=== PATIENT | female | born 1970 | race Caucasian/White ===

== ENCOUNTER 2018-11-06 18:08 | Emergency (ER) | payer OTHER ==
[2018-11-06 19:10] LABS: Glucose,Whole Blood 467 mg/dL (75-99)
[2018-11-06] MEDS ORDERED: SODIUM CHLORIDE 0.9% 1,000 ML IV STA (19:18)
--- NOTE | 2018-11-06 19:39 | ED ---
General Adult HPI - General Chief complaint: Recheck/Abnormal Lab/Rx Stated complaint: high blood sugar Time Seen by Provider: 11/06/18 19:17 Source: patient Mode of arrival: ambulatory Limitations: no limitations - History of Present Illness Initial comments: Dictation was produced using [employer] dictation software. please excuse any gr ammatical, word or spelling errors. Chief Complaint: 48-year-old female with chief complaint of elevated blood sugar, polyuria and polydipsia. History of Present Illness: Is a 48-year-old female she was told that she has history of diabetes. Patient was started on metformin several years ago while she lived in [place]. She stopped taking those medications because she ran out and felt like she didn't need them. Over the last week or 2 patient has been extremely thirsty and urinating frequently. Patient denies any pain complaints. Patient has no nausea vomiting or diarrhea. Patient has no dysuria. No cough. No constitutional symptoms. The ROS documented in this emergency department record has been reviewed and confirmed by me. Those systems with pertinent positive or negative responses have been documented in the HPI. All other systems are other negative and/or noncontributory. PHYSICAL EXAM: General Impression: Alert and oriented x3, not in acute distress HEENT: Normocephalic atraumatic, extra-ocular movements intact, pupils equal and reactive to light bilaterally, mucous membranes moist. Cardiovascular: Heart regular rate and rhythm, S1&S2 audible, no murmurs, rubs or gallops Chest: Lungs clear to auscultation bilaterally, no rhonchi, no wheeze, no rales Abdomen: Bowel sounds present, abdomen soft, non-tender, non-distended, no organomegaly Musculoskeletal: Pulses present and equal in all extremities, no peripheral edema Motor: no focal deficits noted Neurological: CN II-XII grossly intact, no focal motor or sensory deficits noted Skin: Intact with no visualized rashes Psych: Normal affect and mood ED course: 48yo female presents with polyuria, polydipsia and hyperglycemia. Signs upon arrival are within acceptable limits.Laboratory evaluation obtained. Patient to MOD acidosis of 21 bicarb and gap of 12. Glucose is 390. Patient given 10 units of IV insulin. Patient observed in emergency department. Patient given refill for her metformin medications. Patient given referral to care physician. Told to schedule an appointment as soon as possible for outpatient management of diabetes. Patient instructed to avoid simple carbohydrate type food and to eat instead complex carbohydrates in the meantime. Patient understandable agreeable to plan. - Related Data Previous Rx's Medication Instructions Recorded metFORMIN HCL [Glucophage] 500 mg PO BID #20 tab 11/06/18 Allergies Allergy/AdvReac Type Severity Reaction Status Date / Time No Known Allergies Allergy Verified 11/06/18 19:59 Review of Systems ROS Statement: Those systems with pertinent positive or pertinent negative responses have been documented in the HPI. ROS Other: All systems not noted in ROS Statement are negative. Past Medical History Past Medical History: No Reported History History of Any Multi-Drug Resistant Organisms: MRSA Date of last positivie culture/infection: 2017 MDRO Source:: ARM Additional Past Surgical History / Comment(s): IVC FILTER Past Psychological History: No Psychological Hx Reported Smoking Status: Current every day smoker Past Alcohol Use History: None Reported Past Drug Use History: None Reported General Exam Limitations: no limitations Course Vital Signs 11/06/18 19:00 Temperature 99 F Pulse Rate 87 Respiratory 16 Rate Blood Pressure 145/98 O2 Sat by Pulse 97 Oximetry Medical Decision Making - Lab Data Result diagrams: 11/06/18 20:03 11/06/18 20:31 Lab Results 11/06/18 11/06/18 11/06/18 Range/Units 19:07 20:03 20:31 WBC 10.3 (3.8-10.6) k/uL RBC 5.01 (3.80-5.40) m/uL Hgb 13.8 (11.4-16.0) gm/dL Hct 42.7 (34.0-46.0) % MCV 85.4 (80.0-100.0) fL MCH 27.5 (25.0-35.0) pg MCHC 32.2 (31.0-37.0) g/dL RDW 14.3 (11.5-15.5) % Plt Count 205 (150-450) k/uL Neutrophils % 70 % Lymphocytes % 22 % Monocytes % 4 % Eosinophils % 2 % Basophils % 0 % Neutrophils # 7.2 (1.3-7.7) k/uL Lymphocytes # 2.2 (1.0-4.8) k/uL Monocytes # 0.4 (0-1.0) k/uL Eosinophils # 0.2 (0-0.7) k/uL Basophils # 0.0 (0-0.2) k/uL Sodium 134 L (137-145) mmol/L Potassium 4.3 (3.5-5.1) mmol/L Chloride 101 (98-107) mmol/L Carbon Dioxide 21 L (22-30) mmol/L Anion Gap 12 mmol/L BUN 17 (7-17) mg/dL Creatinine 0.47 L (0.52-1.04) mg/dL Est GFR (CKD-EPI)AfAm >90 (>60 ml/min/1.73 sqM) Est GFR (CKD-EPI)NonAf >90 (>60 ml/min/1.73 sqM) Glucose 390 H (74-99) mg/dL POC Glucose (mg/dL) 467 H (75-99) mg/dL POC Glu Behavioral Scientist ID Calcium 9.7 (8.4-10.2) mg/dL Disposition Clinical Impression: Hyperglycemia Disposition: HOME SELF-CARE Condition: Good Prescriptions: metFORMIN HCL [Glucophage] 500 mg PO BID #20 tab Is patient prescribed a controlled substance at d/c from ED?: No Referrals: Meme Myrick MD [REFERRING] - 1-2 days Time of Disposition: 21:25
[2018-11-06 20:35] LABS: Basophils % (A) 0 %; Eosinophils # (A) 0.2 k/uL (0-0.7); Eosinophils % (A) 2 %; HCT 42.7 % (34.0-46.0); HGB 13.8 gm/dL (11.4-16.0); Lymphocytes # (A) 2.2 k/uL (1.0-4.8); Lymphocytes % (A) 22 %; MCH 27.5 pg (25.0-35.0); MCHC 32.2 g/dL (31.0-37.0); MCV 85.4 fL (80.0-100.0); Mean Platelet Volume 7.9; Monocytes # (A) 0.4 k/uL (0-1.0); Monocytes % (A) 4 %; Neutrophils # (A) 7.2 k/uL (1.3-7.7); Neutrophils % (A) 70 %; Platelet Count 205 k/uL (150-450); RBC 5.01 m/uL (3.80-5.40); RDW 14.3 % (11.5-15.5); WBC 10.3 k/uL (3.8-10.6)
[2018-11-06 20:55] LABS: Anion Gap 12 mmol/L; Blood Urea Nitrogen 17 mg/dL (7-17); Calcium 9.7 mg/dL (8.4-10.2); Carbon Dioxide 21 mmol/L (22-30); Chloride 101 mmol/L (98-107); Glucose 390 mg/dL (74-99); Potassium 4.3 mmol/L (3.5-5.1); Sodium 134 mmol/L (137-145)
[2018-11-06] MEDS ORDERED: INSULIN REGULAR 100 UNIT/ML VIAL IV ONE (21:17)
[2018-11-06 21:47] VITALS: BP 142/89; PULSE 78; RESP 18; TEMP 98.8
[2018-11-06 21:59] LABS: Glucose,Whole Blood 298 mg/dL (75-99)
== END 2018-11-06 22:10 | disposition home or self-care (01) ==
LOC: EC 18:08
DX: E11.65 Type 2 diabetes mellitus with hyperglycemia (principal); E87.2 Acidosis; F17.200 Nicotine dependence, unspecified, uncomplicated
CPT/HCPCS: 36415; 80048; 85025; 96360; 99284

== ENCOUNTER 2020-01-30 13:49 | Emergency (ER) | payer OTHER ==
[2020-01-30] MEDS ORDERED: LIDOCAINE 1%-EPI 1:100,000 20 ML VIAL SQ STA (14:10)
--- NOTE | 2020-01-30 14:14 | ED ---
Extremity Problem HPI - General Chief complaint: Extremity Problem,Nontraumatic Stated complaint: LEFT ARM SWELLING Time Seen by Provider: 01/30/20 14:02 Source: patient Mode of arrival: ambulatory Limitations: no limitations - History of Present Illness Initial comments: Patient is a 49-year-old female presenting to the emergency department with a chief complaint of arm swelling. Patient reports symptoms started several days ago with a possible insect bite and is gradually increasing severity. States the swelling is located on the proximal forearm. States there is some information "blisters". States she attempted to poke it with a needle with some blood and clear discharge. Patient states the region of swelling and erythema is quite tender to touch. States she's not been able to sleep due to the pain. Denies taking medication to alleviate the symptoms. Denies any night sweats fevers or chills. Denies any recent intravenous drug use. Reports history of staph infections. - Related Data Previous Rx's Medication Instructions Recorded metFORMIN HCL [Glucophage] 500 mg PO BID #20 tab 11/06/18 Allergies Allergy/AdvReac Type Severity Reaction Status Date / Time No Known Allergies Allergy Verified 01/30/20 13:55 Review of Systems ROS Statement: Those systems with pertinent positive or pertinent negative responses have been documented in the HPI. ROS Other: All systems not noted in ROS Statement are negative. Past Medical History Past Medical History: Diabetes Mellitus History of Any Multi-Drug Resistant Organisms: MRSA Date of last positivie culture/infection: 2016 MDRO Source:: ARM Past Surgical History: Back Surgery Additional Past Surgical History / Comment(s): IVC FILTER Past Psychological History: No Psychological Hx Reported Smoking Status: Current every day smoker Past Alcohol Use History: None Reported Past Drug Use History: None Reported General Exam Limitations: no limitations General appearance: alert, in no apparent distress Head exam: Present: atraumatic, normocephalic, normal inspection Eye exam: Present: normal appearance, PERRL, EOMI Pupils: Present: normal accommodation ENT exam: Present: normal exam, normal oropharynx, mucous membranes moist Neck exam: Present: normal inspection, full ROM Respiratory exam: Present: normal lung sounds bilaterally. Absent: respiratory distress, wheezes, rales Cardiovascular Exam: Present: regular rate, normal rhythm, normal heart sounds Extremities exam: Present: full ROM (No pain with flexion and extension of the elbow.), tenderness (Tenderness at the site of swelling and erythema.), normal capillary refill, other (+2 ulnar and radial pulses bilaterally.). Absent: normal inspection (Swelling noted on the left proximal forearm. Overlying cellulitic skin changes noted. There is a region of fluctuance along with induration measuring approximately 5 cm 7 cm. No active drainage at this time. ) Back exam: Present: normal inspection, full ROM Neurological exam: Present: alert, oriented X3 Psychiatric exam: Present: normal affect, normal mood Skin exam: Present: warm, dry, intact, normal color Course Vital Signs 01/30/20 13:53 Temperature 98.7 F Pulse Rate 94 Respiratory 18 Rate Blood Pressure 147/96 O2 Sat by Pulse 98 Oximetry Procedures - Incision & Drainage Consent Obtained: verbal consent Indication: Skin abscess Site: upper extremity (Left forearm) Size (cm): 10 Anesthetic Used: lidocaine 1%, with epi Amount (mLs): 5 I&D Cleaning Method: Alcohol Wipe Sterile Field Used?: No Scalpel Used: #11 Needle Aspiration Performed?: No Irrigation Performed?: Yes I&D Drainage Obtained: Pus (Large amounts of pus drained), Blood Packing: Iodoform Culture Obtained?: Yes Complications: pain, bleeding Patient Tolerated Procedure: well, no complications Medical Decision Making - Medical Decision Making Patient is a 49-year-old female presenting to the emergency department with a chief complaint of a swollen arm. Exam patient does have swelling, erythema and tenderness in the proximal left forearm. This appears to be in excess with overlying cellulitic skin changes. Patient was given Rocephin in the ED. Will be discharged with Bactrim. I performed incision and drainage at the infected site. Large amounts of pus were released. Patient reports menstrually from pressure. She was given analgesia in the ED. Iodoform packing was applied. No IV drug use. Patient given wound instructions. Wound culture pending. Return parameters were thoroughly discussed with patient was understanding and agreeable. Case discussed with physician. Disposition Clinical Impression: Skin abscess Disposition: HOME SELF-CARE Condition: Stable Instructions (If sedation given, give patient instructions): Abscess (ED), Abscess Incision and Drainage (ED), Acute Wounds (DC) Additional Instructions: Follow wound care instructions. Take prescribed medication as directed. Please return to emergency department if symptoms worsen. Is patient prescribed a controlled substance at d/c from ED?: No Referrals: Susie Redding MD [Primary Care Provider] - 1-2 days Time of Disposition: 15:24
[2020-01-30] MEDS ORDERED: cefTRIAXone 1,000 MG VIAL (IM USE) IM STA (14:41)
[2020-01-30] MEDS ORDERED: KETOROLAC 30 MG/ML 1 ML VIAL IM STA (14:41)
[2020-01-30] MEDS ORDERED: MORPHINE SULFATE 4 MG/ML SYRINGE IM STA (15:14)
[2020-01-30 15:39] VITALS: BP 138/87; PULSE 90; RESP 16; TEMP 98
== END 2020-01-30 15:38 | disposition home or self-care (01) ==
LOC: EC 13:49
DX: L02.414 Cutaneous abscess of left upper limb (principal); E11.9 Type 2 diabetes mellitus without complications; F17.200 Nicotine dependence, unspecified, uncomplicated
CPT/HCPCS: 87070; 87205; 99283; 10060; 96372 ×3; J2270; J0696; J1885

== ENCOUNTER 2021-08-04 15:01 | Emergency (ER) | payer OTHER ==
[2021-08-04 15:58] VITALS: TEMP 99
--- NOTE | 2021-08-04 16:20 | ED ---
General Adult HPI - General Chief complaint: Upper Respiratory Infection Stated complaint: Cough,Congestion,Fever Time Seen by Provider: 08/04/21 16:13 Source: patient, family, RN notes reviewed Mode of arrival: ambulatory Limitations: no limitations - History of Present Illness Initial comments: 51-year-old female presents to the emergency room with complaints of 6 days of fever, cough, congestion and nausea vomiting. She has not been vaccinated aga inst coronavirus. She does have a history of CVA 2 years ago, and diabetes and uses insulin. She denies any chest pain but does state that she has overall generalized body aches. Family at bedside states that she is just an uncomfortable at home is why she came to the emergency room today. -: days(s) (6) Location: head, chest Severity scale (1-10): 8 Quality: aching Consistency: constant Improves with: none Worsens with: movement Associated Symptoms: cough, fever/chills, malaise, nausea/vomiting, shortness of breath Treatments Prior to Arrival: none - Related Data Home Medications Medication Instructions Recorded Confirmed Apixaban [Eliquis] 5 mg PO BID 08/04/21 08/04/21 Aspirin 81 mg PO DAILY 08/04/21 08/04/21 Dapagliflozin Propanediol [Farxiga] 10 mg PO DAILY 08/04/21 08/04/21 Famotidine 40 mg PO HS 08/04/21 08/04/21 Gabapentin 800 mg PO TID 08/04/21 08/04/21 Insulin Glargine,Hum.rec.anlog 34 unit SQ HS 08/04/21 08/04/21 [Lantus Solostar Pen] Potassium Chloride ER [K-Dur 20] 20 meq PO BID-W/MEALS 08/04/21 08/04/21 Rosuvastatin Calcium [Crestor] 20 mg PO DAILY 08/04/21 08/04/21 hydroCHLOROthiazide [Hydrodiuril] 12.5 mg PO DAILY 08/04/21 08/04/21 Previous Rx's Medication Instructions Recorded Azithromycin [Zithromax Z-pack (6 1 pack PO DIRECTED 5 Days #6 tab 08/04/21 tabs)] Allergies Allergy/AdvReac Type Severity Reaction Status Date / Time No Known Allergies Allergy Verified 08/04/21 20:25 Review of Systems ROS Statement: Those systems with pertinent positive or pertinent negative responses have been documented in the HPI. ROS Other: All systems not noted in ROS Statement are negative. Past Medical History Past Medical History: CVA/TIA, Diabetes Mellitus History of Any Multi-Drug Resistant Organisms: MRSA Date of last positivie culture/infection: 2016 MDRO Source:: ARM Past Surgical History: Back Surgery Additional Past Surgical History / Comment(s): IVC FILTER Past Psychological History: No Psychological Hx Reported Smoking Status: Current every day smoker Past Alcohol Use History: None Reported Past Drug Use History: None Reported General Exam Limitations: no limitations General appearance: alert Head exam: Present: atraumatic, normocephalic, normal inspection Eye exam: Present: normal appearance, EOMI. Absent: scleral icterus, conjunctival injection ENT exam: Present: normal exam, mucous membranes moist, other (I lateral nasal drainage clearing color) Neck exam: Present: normal inspection, full ROM. Absent: tenderness, meningismus, lymphadenopathy, thyromegaly Respiratory exam: Present: rhonchi, other (Tachypnea). Absent: wheezes, stridor, chest wall tenderness, accessory muscle use, decreased breath sounds (Bilateral) Cardiovascular Exam: Present: regular rate, normal rhythm, normal heart sounds. Absent: systolic murmur, diastolic murmur, rubs, gallop, clicks, JVD GI/Abdominal exam: Present: soft, normal bowel sounds. Absent: distended, tenderness, guarding, rebound, rigid Extremities exam: Present: normal inspection, full ROM, normal capillary refill. Absent: tenderness, pedal edema, joint swelling Neurological exam: Present: alert, oriented X3 Psychiatric exam: Present: normal affect, normal mood Skin exam: Present: warm, dry, intact, normal color. Absent: rash, cyanosis, diaphoretic, erythema, petechiae, pallor Course Vital Signs 08/04/21 08/04/21 15:55 21:00 Temperature 99 F Pulse Rate 97 63 Respiratory 16 22 Rate Blood Pressure 143/96 145/89 O2 Sat by Pulse 95 94 L Oximetry EKG Findings - EKG Results: EKG: sinus rhythm (Ventricular rate of 64, TN interval 0.130, QRS 0.76, QTC 0.451) Medical Decision Making - Medical Decision Making 51-year-old female presents to the emergency room with complaints of 6 days of fever, cough, congestion, body aches and nausea, vomiting. She denies any chest pain. She was not vaccinated against coronavirus. Chest x-ray shows subtle lower lobe airspace opacities concerning for pneumonia. Coronavirus swab is negative. There is no evidence of leukocytosis. Troponin is negative at 0.012, EKG shows normal sinus rhythm with a ventricular rate of 64. Urinalysis cloudy with 4+ ketones and 3+ glucose. Patient was given Zithromax in the emergency room along with IV fluids for rehydration. She was directed to follow up with her primary care doctor next w [facility], return to the emergency room if any new or worsening symptoms including shortness of breath or chest pain. Patient is agreeable to this plan of care. Family member at bedside also agreeable. Case discussed with Dr. Osei. - Lab Data Result diagrams: 08/04/21 17:35 08/04/21 17:35 Lab Results 08/04/21 08/04/21 08/04/21 Range/Units 16:04 17:35 17:35 WBC 10.3 (3.8-10.6) k/uL RBC 4.81 (3.80-5.40) m/uL Hgb 12.6 (11.4-16.0) gm/dL Hct 39.4 (34.0-46.0) % MCV 81.8 (80.0-100.0) fL MCH 26.2 (25.0-35.0) pg MCHC 32.0 (31.0-37.0) g/dL RDW 16.4 H (11.5-15.5) % Plt Count 230 (150-450) k/uL MPV 9.0 Neutrophils % 76 % Lymphocytes % 16 % Monocytes % 4 % Eosinophils % 0 % Basophils % 0 % Neutrophils # 7.9 H (1.3-7.7) k/uL Lymphocytes # 1.7 (1.0-4.8) k/uL Monocytes # 0.4 (0-1.0) k/uL Eosinophils # 0.0 (0-0.7) k/uL Basophils # 0.0 (0-0.2) k/uL Hypochromasia Slight Anisocytosis Slight PT 9.7 (9.0-12.0) sec INR 0.9 (<1.2) APTT 17.0 L (22.0-30.0) sec Sodium (137-145) mmol/L Potassium (3.5-5.1) mmol/L Chloride (98-107) mmol/L Carbon Dioxide (22-30) mmol/L Anion Gap mmol/L BUN (7-17) mg/dL Creatinine (0.52-1.04) mg/dL Est GFR (CKD-EPI)AfAm (>60 ml/min/1.73 sqM) Est GFR (CKD-EPI)NonAf (>60 ml/min/1.73 sqM) Glucose (74-99) mg/dL Plasma Lactic Acid Kyrie (0.7-2.0) mmol/L Calcium (8.4-10.2) mg/dL Magnesium (1.6-2.3) mg/dL Total Bilirubin (0.2-1.3) mg/dL AST (14-36) U/L ALT (4-34) U/L Alkaline Phosphatase (38-126) U/L Troponin I (0.000-0.034) ng/mL Total Protein (6.3-8.2) g/dL Albumin (3.5-5.0) g/dL Urine Color Urine Appearance (Clear) Urine pH (5.0-8.0) Ur Specific Hale (1.001-1.035) Urine Protein (Negative) Urine Glucose (UA) (Negative) Urine Ketones (Negative) Urine Blood (Negative) Urine Nitrite (Negative) Urine Bilirubin (Negative) Urine Urobilinogen (<2.0) mg/dL Ur Leukocyte Esterase (Negative) Urine RBC (0-5) /hpf Urine WBC (0-5) /hpf Ur Squamous Epith Cells (0-4) /hpf Urine Mucus (None) /hpf Coronavirus (PCR) Not Detected (Not Detectd) 08/04/21 08/04/21 08/04/21 Range/Units 17:35 17:35 17:35 WBC (3.8-10.6) k/uL RBC (3.80-5.40) m/uL Hgb (11.4-16.0) gm/dL Hct (34.0-46.0) % MCV (80.0-100.0) fL MCH (25.0-35.0) pg MCHC (31.0-37.0) g/dL RDW (11.5-15.5) % Plt Count (150-450) k/uL MPV Neutrophils % % Lymphocytes % % Monocytes % % Eosinophils % % Basophils % % Neutrophils # (1.3-7.7) k/uL Lymphocytes # (1.0-4.8) k/uL Monocytes # (0-1.0) k/uL Eosinophils # (0-0.7) k/uL Basophils # (0-0.2) k/uL Hypochromasia Anisocytosis PT (9.0-12.0) sec INR (<1.2) APTT (22.0-30.0) sec Sodium 141 (137-145) mmol/L Potassium 4.0 (3.5-5.1) mmol/L Chloride 107 (98-107) mmol/L Carbon Dioxide 20 L (22-30) mmol/L Anion Gap 14 mmol/L BUN 17 (7-17) mg/dL Creatinine 0.46 L (0.52-1.04) mg/dL Est GFR (CKD-EPI)AfAm >90 (>60 ml/min/1.73 sqM) Est GFR (CKD-EPI)NonAf >90 (>60 ml/min/1.73 sqM) Glucose 132 H (74-99) mg/dL Plasma Lactic Acid Kyrie 1.0 (0.7-2.0) mmol/L Calcium 9.1 (8.4-10.2) mg/dL Magnesium 2.1 (1.6-2.3) mg/dL Total Bilirubin 1.2 (0.2-1.3) mg/dL AST 23 (14-36) U/L ALT 15 (4-34) U/L Alkaline Phosphatase 150 H (38-126) U/L Troponin I <0.012 (0.000-0.034) ng/mL Total Protein 7.8 (6.3-8.2) g/dL Albumin 4.2 (3.5-5.0) g/dL Urine Color Urine Appearance (Clear) Urine pH (5.0-8.0) Ur Specific Hale (1.001-1.035) Urine Protein (Negative) Urine Glucose (UA) (Negative) Urine Ketones (Negative) Urine Blood (Negative) Urine Nitrite (Negative) Urine Bilirubin (Negative) Urine Urobilinogen (<2.0) mg/dL Ur Leukocyte Esterase (Negative) Urine RBC (0-5) /hpf Urine WBC (0-5) /hpf Ur Squamous Epith Cells (0-4) /hpf Urine Mucus (None) /hpf Coronavirus (PCR) (Not Detectd) 08/04/21 Range/Units 17:37 WBC (3.8-10.6) k/uL RBC (3.80-5.40) m/uL Hgb (11.4-16.0) gm/dL Hct (34.0-46.0) % MCV (80.0-100.0) fL MCH (25.0-35.0) pg MCHC (31.0-37.0) g/dL RDW (11.5-15.5) % Plt Count (150-450) k/uL MPV Neutrophils % % Lymphocytes % % Monocytes % % Eosinophils % % Basophils % % Neutrophils # (1.3-7.7) k/uL Lymphocytes # (1.0-4.8) k/uL Monocytes # (0-1.0) k/uL Eosinophils # (0-0.7) k/uL Basophils # (0-0.2) k/uL Hypochromasia Anisocytosis PT (9.0-12.0) sec INR (<1.2) APTT (22.0-30.0) sec Sodium (137-145) mmol/L Potassium (3.5-5.1) mmol/L Chloride (98-107) mmol/L Carbon Dioxide (22-30) mmol/L Anion Gap mmol/L BUN (7-17) mg/dL Creatinine (0.52-1.04) mg/dL Est GFR (CKD-EPI)AfAm (>60 ml/min/1.73 sqM) Est GFR (CKD-EPI)NonAf (>60 ml/min/1.73 sqM) Glucose (74-99) mg/dL Plasma Lactic Acid Kyrie (0.7-2.0) mmol/L Calcium (8.4-10.2) mg/dL Magnesium (1.6-2.3) mg/dL Total Bilirubin (0.2-1.3) mg/dL AST (14-36) U/L ALT (4-34) U/L Alkaline Phosphatase (38-126) U/L Troponin I (0.000-0.034) ng/mL Total Protein (6.3-8.2) g/dL Albumin (3.5-5.0) g/dL Urine Color Yellow Urine Appearance Cloudy H (Clear) Urine pH 6.0 (5.0-8.0) Ur Specific Hale 1.031 (1.001-1.035) Urine Protein 1+ H (Negative) Urine Glucose (UA) 3+ H (Negative) Urine Ketones 4+ H (Negative) Urine Blood Negative (Negative) Urine Nitrite Negative (Negative) Urine Bilirubin Negative (Negative) Urine Urobilinogen 8.0 (<2.0) mg/dL Ur Leukocyte Esterase Moderate H (Negative) Urine RBC 21 H (0-5) /hpf Urine WBC 27 H (0-5) /hpf Ur Squamous Epith Cells 22 H (0-4) /hpf Urine Mucus Many H (None) /hpf Coronavirus (PCR) (Not Detectd) Disposition Clinical Impression: Pneumonia, Dehydration Disposition: HOME SELF-CARE Condition: Good Instructions (If sedation given, give patient instructions): Pneumonia (ED) Prescriptions: Azithromycin [Zithromax Z-pack (6 tabs)] 1 pack PO DIRECTED 5 Days #6 tab Is patient prescribed a controlled substance at d/c from ED?: No Referrals: Sahra Castro FNPBC [Primary Care Provider] - 1-2 days Time of Disposition: 21:30
[2021-08-04] MEDS ORDERED: SODIUM CHLORIDE 0.9% 1,000 ML IV STA (16:33)
--- NOTE | 2021-08-04 17:28 | XR ---
INDICATION: Patient age:Female; 51 years old; Reason for study: cough; PHH. COMPARISON: None. TECHNIQUE: Frontal and lateral views of the chest. FINDINGS: Lungs/Pleura: Subtle hazy opacities seen most pronounced in the right lower lung also within the left lower lung. No evidence of pneumothorax or pleural effusion. Pulmonary vascularity: Unremarkable. Heart/mediastinum: Cardiomediastinal silhouette is unremarkable. Musculoskeletal: No acute osseous pathology. IMPRESSION: Subtle lower lobe airspace opacities concerning for pneumonia.
[2021-08-04 17:43] LABS: Anisocytosis Slight; Basophils % (A) 0 %; Eosinophils % (A) 0 %; HCT 39.4 % (34.0-46.0); HGB 12.6 gm/dL (11.4-16.0); Hypochromasia Slight; Lymphocytes # (A) 1.7 k/uL (1.0-4.8); Lymphocytes % (A) 16 %; MCH 26.2 pg (25.0-35.0); MCV 81.8 fL (80.0-100.0); Monocytes # (A) 0.4 k/uL (0-1.0); Monocytes % (A) 4 %; Neutrophils # (A) 7.9 k/uL (1.3-7.7); Neutrophils % (A) 76 %; Platelet Count 230 k/uL (150-450); RBC 4.81 m/uL (3.80-5.40); RDW 16.4 % (11.5-15.5); WBC 10.3 k/uL (3.8-10.6)
[2021-08-04 17:54] LABS: Appearance,Urine Cloudy (Clear); Bilirubin,Urine Negative (Negative); Blood,Urine Negative (Negative); Color,Urine Yellow; Glucose,Urine (UA) 3+ (Negative); Leukocyte Esterase,Urine Moderate (Negative); Mucus,Urine Many /hpf; Nitrite,Urine Negative (Negative); Protein,Urine 1+ (Negative); RBC,Urine 21 /hpf (0-5); Specific Gravity,Urine 1.031 (1.001-1.035); Squamous Epithelial Cell,Urine 22 /hpf (0-4); WBC,Urine 27 /hpf (0-5)
[2021-08-04 17:59] LABS: ALT 15 U/L (4-34); AST 23 U/L (14-36); African American GFR (CKD) >90 (>60 ml/min/1.73 sqM); Albumin 4.2 g/dL (3.5-5.0); Alkaline Phosphatase 150 U/L (38-126); Anion Gap 14 mmol/L; Blood Urea Nitrogen 17 mg/dL (7-17); Calcium 9.1 mg/dL (8.4-10.2); Carbon Dioxide 20 mmol/L (22-30); Chloride 107 mmol/L (98-107); Glucose 132 mg/dL (74-99); Magnesium 2.1 mg/dL (1.6-2.3); Non-African American GFR(CKD) >90 (>60 ml/min/1.73 sqM); Sodium 141 mmol/L (137-145); Total Bilirubin 1.2 mg/dL (0.2-1.3); Total Protein 7.8 g/dL (6.3-8.2)
[2021-08-04 18:00] LABS: INR 0.9 (<1.2); Prothrombin Time 9.7 sec (9.0-12.0)
[2021-08-04 18:02] LABS: Ketones,Urine 4+ (Negative)
[2021-08-04] MEDS ORDERED: AZITHROMYCIN 250 MG TAB PO STA (21:01)
[2021-08-04 21:34] VITALS: BP 145/89; PULSE 63; RESP 22
== END 2021-08-04 21:44 | disposition home or self-care (01) ==
LOC: EC 15:01
DX: J18.9 Pneumonia, unspecified organism (principal); E86.0 Dehydration; Z20.822 Contact with and (suspected) exposure to COVID-19; E11.9 Type 2 diabetes mellitus without complications; F17.200 Nicotine dependence, unspecified, uncomplicated; Z79.4 Long term (current) use of insulin; Z79.82 Long term (current) use of aspirin; Z79.01 Long term (current) use of anticoagulants; Z79.899 Other long term (current) drug therapy
CPT/HCPCS: 36415; 71046; 80053; 81001; 83605; 83735; 84484; 85025; 85610; 85730; 87086; 87635; 93005; 99284

== ENCOUNTER → 2021-11-22 | Outpatient (CLI) | payer OTHER ==
--- NOTE | 2021-11-22 13:58 | FL ---
EXAMINATION TYPE: FL barium swallow w video DATE OF EXAM: 11/22/2021 MODIFIED SWALLOW / DEGLUTITION STUDY CLINICAL HISTORY: Dysphagia. TECHNIQUE: Deglutition study is performed utilizing thin liquid barium, honey and nectar thick liqui d barium, puree like barium, and barium coated cracker. COMPARISON: None. FINDINGS: Transient laryngeal penetration was noted with the thin liquid barium. More obvious larynge al penetration was noted with the nectar consistency. No other laryngeal penetration or aspiration id entified at the time of the study. Total fluoroscopic time 2 minutes and 31 seconds. No images on PAC S. IMPRESSION: Laryngeal penetration as described above. Please refer to speech therapist notes for furt her details.
== END | disposition home or self-care (01) ==
LOC: RADFLMAIN 11:29
PROVIDERS: ATTEND Psychiatry & Neurology Neurology
DX: R13.10 Dysphagia, unspecified (principal)
CPT/HCPCS: 74230

== ENCOUNTER → 2022-03-28 | Outpatient (CLI) | payer OTHER ==
--- NOTE | 2022-03-28 09:21 | US ---
EXAMINATION TYPE: US venous doppler duplex LE DATE OF EXAM: 03/28/2022 7:48 AM COMPARISON: NONE CLINICAL HISTORY: R22.43 SWELLING Z86.718 PERSONAL HX OF DVT. Patient on Eliquis, [facility] SIDE PERFORMED: Bilateral TECHNIQUE: The lower extremity deep venous system is examined utilizing real time linear array sonog venita with graded compression, doppler sonography and color-flow sonography. VESSELS IMAGED: Common Femoral Vein Deep Femoral Vein Greater Saphenous Vein * Femoral Vein Popliteal Vein Small Saphenous Vein * Proximal Calf Veins (* superficial vessels) Right Leg: Negative for acute DVT, there is stranding noted throughout vessels indicative of chronic DVT. Left Leg: Negative for acute DVT, there is stranding noted throughout vessels indicative of chronic DVT. Grayscale, color doppler, spectral doppler imaging performed of the deep veins of the lower extremiti es. There is normal flow, compressibility, vascular waveforms. IMPRESSION: No evidence of acute occlusive deep vein anastomosis in the lower extremities. There ngoc ears chronic nonocclusive deep vein thrombosis bilaterally.
== END | disposition home or self-care (01) ==
LOC: RADUSWWP 07:25
PROVIDERS: ATTEND Family Medicine
DX: I82.403 Acute embolism and thrombosis of unspecified deep veins of lower extremity, bilateral (principal)
CPT/HCPCS: 93970

== ENCOUNTER 2023-03-15 22:11 | Observation (INO) | payer MEDICARE, OTHER ==
[2023-03-15] MEDS ORDERED: SODIUM CHLORIDE 0.9% 1,000 ML IV STA (22:47)
[2023-03-15] MEDS ORDERED: MORPHINE SULFATE 4 MG/ML SYRINGE IV STA (22:47)
[2023-03-15] MEDS ORDERED: NALOXONE 0.4 MG/ML 1 ML VIAL IV PRN (22:48)
--- NOTE | 2023-03-15 22:51 | ED ---
General Adult HPI - General Chief complaint: Abdominal Pain Stated complaint: Diverticulitis Time Seen by Provider: 03/15/23 22:14 Source: patient Mode of arrival: ambulatory Limitations: no limitations - History of Present Illness Initial comments: Dictation was produced using [employer] dictation software. please excuse any grammatical, word or spelling errors. Chief Complaint: 52-year-old female who presents to the emergency room for abdominal pain History of Present Illness: [id number] female she was seen in emergency department yesterday. Patient is diagnosed with diverticulitis based on computed tomography scan. She is prescribed antibiotics and discharged. Patient states she had eaten and it had triggered her abdominal pain. She states that the pain is severe. She was not prescribed analgesics yesterday. She denies any significant nausea however she does report that the pain is severe. Denies any fever or constitutional symptoms The ROS documented in this emergency department record has been reviewed and confirmed by me. Those systems with pertinent positive or negative responses have been documented in the HPI. All other systems are other negative and/or noncontributory. - Related Data Home Medications Medication Instructions Recorded Confirmed Apixaban [Eliquis] 5 mg PO BID 08/04/21 03/14/23 Famotidine 40 mg PO HS 08/04/21 03/14/23 Gabapentin 800 mg PO TID 08/04/21 03/14/23 Insulin Glargine,Hum.rec.anlog 36 unit SQ DAILY 08/04/21 03/14/23 [Lantus Solostar Pen] Potassium Chloride ER [K-Dur 20] 20 meq PO BID-W/MEALS 08/04/21 03/14/23 hydroCHLOROthiazide [Hydrodiuril] 12.5 mg PO DAILY 08/04/21 03/14/23 Dapagliflozin Propanediol [Farxiga] 5 mg PO DAILY 03/14/23 03/14/23 Pioglitazone [Actos] 15 mg PO DAILY 03/14/23 03/14/23 Rosuvastatin Calcium [Crestor] 40 mg PO DAILY 03/14/23 03/14/23 busPIRone HCL [Buspirone HCl] 15 mg PO TID 03/14/23 03/14/23 cloNIDine HCL [Catapres] 0.05 mg PO BID 07/19/23 07/19/23 lisinopriL [Zestril] 30 mg PO DAILY 03/14/23 03/14/23 traZODone HCL 150 mg PO HS PRN 03/14/23 03/14/23 Previous Rx's Medication Instructions Recorded Amoxic-Pot Clav 875-125Mg 1 tab PO Q12HR 1 Days #14 tab 03/14/23 [Augmentin 875-125] Allergies Allergy/AdvReac Type Severity Reaction Status Date / Time No Known Allergies Allergy Verified 03/15/23 22:19 Review of Systems ROS Statement: Those systems with pertinent positive or pertinent negative responses have been documented in the HPI. ROS Other: All systems not noted in ROS Statement are negative. Past Medical History Past Medical History: CVA/TIA, Diabetes Mellitus History of Any Multi-Drug Resistant Organisms: MRSA Date of last positivie culture/infection: 2017 MDRO Source:: ARM Past Surgical History: Back Surgery Additional Past Surgical History / Comment(s): IVC FILTER Past Psychological History: No Psychological Hx Reported Smoking Status: Current every day smoker Past Alcohol Use History: None Reported Past Drug Use History: None Reported General Exam - General Exam Comments Initial Comments: PHYSICAL EXAM: General Impression: Alert and oriented x3, not in acute distress HEENT: Normocephalic atraumatic, extra-ocular movements intact, pupils equal and reactive to light bilaterally, mucous membranes moist. Cardiovascular: Heart regular rate and rhythm Chest: Able to complete full sentences, no retractions, no tachypnea Abdomen: abdomen soft, palpatory tenderness to the left lower quadrant, non- distended, no organomegaly Musculoskeletal: Pulses present and equal in all extremities, no peripheral edema Motor: no focal deficits noted Neurological: CN II-XII grossly intact, no focal motor or sensory deficits noted Skin: Intact with no visualized rashes Psych: Normal affect and mood Limitations: no limitations Course Vital Signs 03/15/23 22:17 Temperature 98.9 F Pulse Rate 90 Respiratory 18 Rate Blood Pressure 158/89 O2 Sat by Pulse 95 Oximetry Medical Decision Making - Medical Decision Making Was pt. sent in by a medical professional or institution (, PA, ENGRAVING PATTERNMAKER, urgent care, hospital, or group home...) When possible be specific @ -No Did you speak to anyone other than the patient for history (EMS, parent, family, police, friend...)? What history was obtained from this source @ -No Did you review nursing and triage notes (agree or disagree)? Why? @ -I reviewed and agree with nursing and triage notes Were old charts reviewed (outside hosp., previous admission, EMS record, old EKG, old radiological studies, urgent care reports/EKG's, group home records)? Report findings @ -No old charts were reviewed Differential Diagnosis (chest pain, altered mental status, abdominal pain women, abdominal pain men, vaginal bleeding, musculoskeletal, weakness, fever, dyspnea, syncope, headache, dizziness, GI bleed, back pain, seizure, CVA, palpatations, mental health)? @ -Differential Abdominal Pain Women: Appendicitis, Cholecystitis, diverticulosis, ischemic bowel, pancreatitis, hepatitis, UTI, gastroenteritis, AAA, incarcerated hernia, bowel obstruction, constipation, inflammatory bowel, hepatitis, peptic ulcer disease, splenic infarction, perforated viscus, vulvitis, ovarian torsion, PID, kidney stone, placenta abruption, this is not meant to be an all-inclusive list EKG interpreted by me (3pts min.). @ -None done X-rays interpreted by me (1pt min.). @ -None done CT interpreted by me (1pt min.). @ -None done U/S interpreted by me (1pt. min.). @ -None done What testing was considered but not performed or refused? (CT, X-rays, U/S, labs)? Why? @ -None What meds were considered but not given or refused? Why? @ -None Did you discuss the management of the patient with other professionals (professionals i.e. , PA, ENGRAVING PATTERNMAKER, lab, RT, psych nurse, web content & social media manager, folder taper operator, teacher, flight deck officer, telephonic nurse case manager)? Give summary @ -Discussed with hospitalist for admission Was smoking cessation discussed for >3mins.? @ -No Was critical care preformed (if so, how long)? @ -No Were there social determinants of health that impacted care today? How? (Homelessness, low income, unemployed, alcoholism, drug addiction, trans portation, low edu. Level, literacy, decrease access to med. care, halfway, rehab)? @ -No Was there de-escalation of care discussed even if they declined (Discuss DNR or withdrawal of care, Hospice)? DNR status @ -No What co-morbidities impacted this encounter? (DM, HTN, Smoking, COPD, CAD, Cancer, CVA, ARF, Chemo, Hep., AIDS, mental health diagnosis, sleep apnea, morbid obesity)? @ -None Was patient admitted / discharged? Hospital course, mention meds given and route, prescriptions, significant lab abnormalities, going to OR and other pertinent info. @ -52-year-old female presents emergency department for abdominal pain. She was diagnosed with diverticulitis yesterday. Vital signs are stable. Patient states that her pain is severe. Disposition options were discussed she would prefer hospital admission for pain control Undiagnosed new problem with uncertain prognosis? @ -No Drug Therapy requiring intensive monitoring for toxicity (Heparin, Nitro, Insulin, Cardizem)? @ -No Were any procedures done? @ -No Diagnosis/symptom? Acute, or Chronic, or Acute on Chronic? Uncomplicated (without systemic symptoms) or Complicated (systemic symptoms)? @ -1. Diverticulitis Side effects of treatment? @ -No Exacerbation, Progression, or Severe Exacerbation? @ -No Poses a threat to life or bodily function? How? (Chest pain, [place], [place], pneumonia, PE, COPD, DKA, ARF, appy, cholecystitis, CVA, Diverticulitis, Homicidal, Suicidal, threat to staff... and all critical care pts) @ -yes Disposition Clinical Impression: Diverticulitis Disposition: ADMITTED IP TO THIS HOSP Condition: Fair Decision Time: 23:05
[2023-03-16 00:18] LABS: Basophils % (A) 0 %; Eosinophils # (A) 0.3 k/uL (0-0.7); Eosinophils % (A) 4 %; HCT 36.7 % (34.0-46.0); HGB 12.7 gm/dL (11.4-16.0); Lymphocytes # (A) 1.6 k/uL (1.0-4.8); Lymphocytes % (A) 21 %; MCH 31.9 pg (25.0-35.0); MCHC 34.6 g/dL (31.0-37.0); MCV 92.2 fL (80.0-100.0); Mean Platelet Volume 9.2; Monocytes # (A) 0.4 k/uL (0-1.0); Monocytes % (A) 5 %; Neutrophils # (A) 5.2 k/uL (1.3-7.7); Neutrophils % (A) 69 %; Platelet Count 187 k/uL (150-450); RBC 3.98 m/uL (3.80-5.40); RDW 13.9 % (11.5-15.5); WBC 7.5 k/uL (3.8-10.6)
[2023-03-16 00:28] LABS: African American GFR (CKD) >90 (>60 ml/min/1.73 sqM); Anion Gap 10 mmol/L; Blood Urea Nitrogen 14 mg/dL (7-17); Calcium 8.7 mg/dL (8.4-10.2); Carbon Dioxide 20 mmol/L (22-30); Chloride 107 mmol/L (98-107); Glucose 205 mg/dL (74-99); Non-African American GFR(CKD) >90 (>60 ml/min/1.73 sqM); Potassium 3.9 mmol/L (3.5-5.1); Sodium 137 mmol/L (137-145)
[2023-03-16] MEDS: MORPHINE SULFATE 4 MG/ML SYRINGE IV PRN ×4 (04:26→18:26)
[2023-03-16] MEDS: SODIUM CHLORIDE 0.9% 1,000 ML IV SCH (07:18)
[2023-03-16] MEDS ORDERED: HYDROcodone/APAP 5-325MG 1 EACH TAB PO PRN (09:34)
[2023-03-16] MEDS ORDERED: DEXTROSE 50% SYRINGE 50 ML IVP PRN ×2 (09:36)
[2023-03-16] MEDS ORDERED: PIPERACILLIN-TAZOBACTAM 3.375 GM in SODIUM CHLORIDE 0.9% 100 ML IVPB STA (09:36)
[2023-03-16] MEDS: hydroCHLOROthiazide 12.5 MG CAP PO SCH (10:04)
[2023-03-16] MEDS: INSULIN ASPART (NovoLOG) 100 UNIT/ML VIAL SQ SCH ×3 (12:40→21:02)
[2023-03-16 12:50] LABS: Glucose,Whole Blood 163 mg/dL (70-110)
--- NOTE | 2023-03-16 13:29 | P.HPIM ---
History of Present Illness H&P Date: 03/16/23 History of present illness; patient is a 52-year-old lady with recent visit to [facility] ER for abdominal pain and was diagnosed as having diverticulitis and was discharged on oral antibiotics. Patient stated that she was discharged yesterday and as soon as she started eating she started noticing increasing abdominal pain. Abdominal pain was generalized and was much more severe com pared to the previous time. Patient stated that there was no nausea or vomiting but did complain of loss of appetite. Because his worsening abdominal pain she came back ER Initial lab work done in the ER showed WBC 7.5, hemoglobin 12.7, platelet count 187, sodium 137, potassium 3.9, BUN 1214, creatinine 0.57 CT abdominal pelvis done on 03/14 showed generalized colonic diverticulosis there is mild wall thickening and some minimal fat stranding along the proximal to mid sigmoid colon possible mild acute diverticulitis, no abscess or free air Patient admitted to medicine service REVIEW OF SYSTEMS: CONSTITUTIONAL: No fever, no malaise, no fatigue. HEENT: No recent visual problems or hearing problems. Denied any sore throat. CARDIOVASCULAR: No chest pain, orthopnea, PND, no palpitations, no syncope. PULMONARY: No shortness of breath, no cough, no hemoptysis. GASTROINTESTINAL: As mentioned in HPI NEUROLOGICAL: No headaches, no weakness, no numbness. HEMATOLOGICAL: Denies any bleeding or petechiae. GENITOURINARY: Denies any burning micturition, frequency, or urgency. MUSCULOSKELETAL/RHEUMATOLOGICAL: Denies any joint pain, swelling, or any muscle pain. ENDOCRINE: Denies any polyuria or polydipsia. The rest of the 14-point review of systems is negative. PHYSICAL EXAMINATION: GENERAL: The patient is alert and oriented x3, not in any acute distress. Well developed, well nourished. HEENT: Pupils are round and equally reacting to light. EOMI. No scleral icterus. No conjunctival pallor. Normocephalic, atraumatic. No pharyngeal erythema. No thyromegaly. CARDIOVASCULAR: S1 and S2 present. No murmurs, rubs, or gallops. PULMONARY: Chest is clear to auscultation, no wheezing or crackles. ABDOMEN: Soft, nontender, nondistended, normoactive bowel sounds. No palpable or ganomegaly. MUSCULOSKELETAL: No joint swelling or deformity. EXTREMITIES: No cyanosis, clubbing, or pedal edema. NEUROLOGICAL: Gross neurological examination did not reveal any focal deficits. SKIN: No rashes. Assessment and plan Acute diverticulitis Hypertension Insulin-dependent diabetes mellitus Hyperlipidemia Depression Monitor vital signs Monitor CBC Monitor CMP Continue telemetry monitoring Monitor blood sugar levels, continue sliding scale insulin, resume Lantus. Continue IV Zosyn Ordered blood cultures Continue pain control Continue IV fluids Resume home meds Labs and medication were reviewed.. Continue same treatment. Continue with symptomatic treatment. Resume home medication. Monitor labs and vitals. DVT and GI prophylaxis. Further recommendations as per clinical course of the patient Dictation was produced using [employer] dictation software. please excuse any gramma tical, word or spelling errors. Past Medical History Past Medical History: CVA/TIA, Diabetes Mellitus History of Any Multi-Drug Resistant Organisms: MRSA Date of last positivie culture/infection: 2016 MDRO Source:: ARM Past Surgical History: Back Surgery Additional Past Surgical History / Comment(s): IVC FILTER Past Psychological History: No Psychological Hx Reported Smoking Status: Current every day smoker Past Alcohol Use History: None Reported Past Drug Use History: None Reported Medications and Allergies Home Medications Medication Instructions Recorded Confirmed Type Apixaban [Eliquis] 5 mg PO BID 08/04/21 03/15/23 History Famotidine 40 mg PO HS 08/04/21 03/15/23 History Gabapentin 800 mg PO TID 08/04/21 03/15/23 History Insulin Glargine,Hum.rec.anlog 36 unit SQ DAILY 08/04/21 03/15/23 History [Lantus Solostar Pen] Potassium Chloride ER [K-Dur 20] 20 meq PO BID-W/MEALS 08/04/21 03/15/23 History hydroCHLOROthiazide [Hydrodiuril] 12.5 mg PO DAILY 08/04/21 03/15/23 History Amoxic-Pot Clav 875-125Mg 1 tab PO Q12HR 1 Days #14 tab 03/14/23 03/15/23 Rx [Augmentin 875-125] Dapagliflozin Propanediol [Farxiga] 5 mg PO DAILY 03/14/23 03/15/23 History Pioglitazone [Actos] 15 mg PO DAILY 03/14/23 03/15/23 History Rosuvastatin Calcium [Crestor] 40 mg PO DAILY 03/14/23 03/15/23 History busPIRone HCL [Buspirone HCl] 15 mg PO TID 03/14/23 03/15/23 History cloNIDine HCL [Catapres] 0.05 mg PO BID 03/14/23 03/15/23 History lisinopriL [Zestril] 30 mg PO DAILY 03/14/23 03/15/23 History traZODone HCL 150 mg PO HS PRN 03/14/23 03/15/23 History Allergies Allergy/AdvReac Type Severity Reaction Status Date / Time No Known Allergies Allergy Verified 03/15/23 22:19 Physical Exam Vitals: Vital Signs Temp Pulse Pulse Resp BP BP Pulse Ox 03/16/23 08:21 78 18 122/74 99 03/16/23 08:16 97.8 F 74 148/87 96 03/16/23 04:00 78 16 129/64 96 03/16/23 00:00 74 16 119/78 98 03/15/23 22:18 98 F 82 14 98 03/15/23 22:17 98.9 F 90 18 158/89 95 Intake and Output 03/15/23 03/16/23 03/16/23 22:59 06:59 14:59 Other: Voiding Method Toilet Weight 77.564 kg Results CBC & Chem 7: 03/15/23 23:40 03/15/23 23:40 Labs: Abnormal Lab Results - Last 24 Hours (Table) 03/15/23 Range/Units 23:40 Carbon Dioxide 20 L (22-30) mmol/L Glucose 205 H (74-99) mg/dL
[2023-03-16 17:00] LABS: Glucose,Whole Blood 94 mg/dL (70-110)
[2023-03-16] MEDS: busPIRone HCl 5 MG TAB PO SCH ×2 (17:15→21:52)
[2023-03-16] MEDS: GABAPENTIN 400 MG CAP PO SCH ×2 (17:15→21:51)
[2023-03-16] MEDS: PIPERACILLIN-TAZOBACTAM 3.375 GM in SODIUM CHLORIDE 0.9% 100 ML IVPB SCH (17:18)
[2023-03-16] MEDS: POTASSIUM CHLORIDE ER 20 MEQ TAB.ER PO SCH (18:29)
[2023-03-16 20:33] LABS: Glucose,Whole Blood 145 mg/dL (70-110)
[2023-03-16] MEDS: cloNIDine HCL 0.1 MG TAB PO SCH (21:51)
[2023-03-16] MEDS: FAMOTIDINE 20 MG TAB PO SCH (21:51)
[2023-03-16] MEDS: APIXABAN 5 MG TAB PO SCH (21:52)
[2023-03-17] MEDS: PIPERACILLIN-TAZOBACTAM 3.375 GM in SODIUM CHLORIDE 0.9% 100 ML IVPB SCH ×4 (00:23→23:15)
[2023-03-17] MEDS: SODIUM CHLORIDE 0.9% 1,000 ML IV SCH ×2 (00:24→23:15)
[2023-03-17] MEDS: MORPHINE SULFATE 4 MG/ML SYRINGE IV PRN ×5 (03:07→23:15)
[2023-03-17 06:08] LABS: Glucose,Whole Blood 161 mg/dL (70-110)
[2023-03-17] MEDS: INSULIN ASPART (NovoLOG) 100 UNIT/ML VIAL SQ SCH ×4 (06:28→21:18)
[2023-03-17] MEDS: POTASSIUM CHLORIDE ER 20 MEQ TAB.ER PO SCH ×2 (06:29→18:44)
[2023-03-17] MEDS: INSULIN DETEMIR (LEVEMIR) 100 UNIT/ML SYR SQ SCH (06:29)
[2023-03-17] MEDS: hydroCHLOROthiazide 12.5 MG CAP PO SCH (08:43)
[2023-03-17] MEDS: DAPAGLIFLOZIN PROPANEDIOL 5 MG TABLET PO SCH (08:43)
[2023-03-17] MEDS: busPIRone HCl 5 MG TAB PO SCH ×3 (08:43→21:43)
[2023-03-17] MEDS: PIOGLITAZONE 15 MG TAB PO SCH (08:43)
[2023-03-17] MEDS: lisinopriL 10 MG TAB PO SCH (08:43)
[2023-03-17] MEDS: APIXABAN 5 MG TAB PO SCH ×2 (08:43→21:43)
[2023-03-17] MEDS: ATORVASTATIN 80 MG TAB PO SCH (08:43)
[2023-03-17] MEDS: cloNIDine HCL 0.1 MG TAB PO SCH ×2 (08:48→21:43)
[2023-03-17] MEDS: GABAPENTIN 400 MG CAP PO SCH ×3 (08:48→21:44)
[2023-03-17 10:58] LABS: Basophils % (A) 0 %; Eosinophils # (A) 0.2 k/uL (0-0.7); Eosinophils % (A) 3 %; HCT 40.3 % (34.0-46.0); HGB 13.4 gm/dL (11.4-16.0); Lymphocytes # (A) 1.4 k/uL (1.0-4.8); Lymphocytes % (A) 16 %; MCH 30.9 pg (25.0-35.0); MCHC 33.3 g/dL (31.0-37.0); MCV 92.6 fL (80.0-100.0); Mean Platelet Volume 8.3; Monocytes # (A) 0.4 k/uL (0-1.0); Monocytes % (A) 5 %; Neutrophils # (A) 6.5 k/uL (1.3-7.7); Neutrophils % (A) 75 %; Platelet Count 209 k/uL (150-450); RBC 4.35 m/uL (3.80-5.40); RDW 13.7 % (11.5-15.5); WBC 8.6 k/uL (3.8-10.6)
[2023-03-17 11:06] LABS: ALT 24 U/L (4-34); AST 26 U/L (14-36); African American GFR (CKD) >90 (>60 ml/min/1.73 sqM); Albumin 4.2 g/dL (3.5-5.0); Albumin/Globulin Ratio 1.3; Alkaline Phosphatase 128 U/L (38-126); Anion Gap 8 mmol/L; Blood Urea Nitrogen 8 mg/dL (7-17); Calcium 9.6 mg/dL (8.4-10.2); Carbon Dioxide 25 mmol/L (22-30); Chloride 105 mmol/L (98-107); Globulin 3.3 g/dL; Glucose 95 mg/dL (74-99); Non-African American GFR(CKD) >90 (>60 ml/min/1.73 sqM); Potassium 4.3 mmol/L (3.5-5.1); Sodium 138 mmol/L (137-145); Total Bilirubin 1.2 mg/dL (0.2-1.3); Total Protein 7.5 g/dL (6.3-8.2)
[2023-03-17 11:36] LABS: Glucose,Whole Blood 87 mg/dL (70-110)
--- NOTE | 2023-03-17 14:23 | P.PN ---
Subjective Progress Note Date: 03/17/23 patient is a 52-year-old lady with recent visit to the ER for abdominal pain and was diagnosed as having diverticulitis and was discharged on oral antibiotics. Patient stated that she was discharged yesterday and as soon as she started eating she started noticing increasing abdominal pain. Abdominal pain was generalized and was much more severe compared to the previous time. Patient stated that there was no nausea or vomiting but did complain of loss of appetite. Because his worsening abdominal pain she came back ER Initial lab work done in the ER showed WBC 7.5, hemoglobin 12.7, platelet count 187, sodium 137, potassium 3.9, BUN 1214, creatinine 0.57 CT abdominal pelvis done on 03/14 showed generalized colonic diverticulosis there is mild wall thickening and some minimal fat stranding along the proximal to mid sigmoid colon possible mild acute diverticulitis, no abscess or free air Patient admitted to medicine service 03/17. Patient seen and examined. States abdominal pain has improved. Currently on clear liquid diet, advance to full liquid REVIEW OF SYSTEMS: CONSTITUTIONAL: No fever, no malaise,. CARDIOVASCULAR: No chest pain, no palpitations, no syncope. PULMONARY: No shortness of breath, no cough, GASTROINTESTINAL: No diarrhea, no nausea, no vomiting, no abdominal pain. NEUROLOGICAL: No headaches, no weakness, PHYSICAL EXAMINATION: GENERAL: The patient is alert and oriented x3, not in any acute distress. Well d eveloped, well nourished. HEENT: Pupils are round and equally reacting to light. EOMI. No scleral icterus. No conjunctival pallor. Normocephalic, atraumatic. No pharyngeal erythema. No thyromegaly. CARDIOVASCULAR: S1 and S2 present. No murmurs, rubs, or gallops. PULMONARY: Chest is clear to auscultation, no wheezing or crackles. ABDOMEN: Soft, nontender, nondistended, normoactive bowel sounds. No palpable organomegaly. MUSCULOSKELETAL: No joint swelling or deformity. EXTREMITIES: No cyanosis, clubbing, or pedal edema. NEUROLOGICAL: Gross neurological examination did not reveal any focal deficits. SKIN: No rashes. Assessment and plan Acute diverticulitis Hypertension Insulin-dependent diabetes mellitus Hyperlipidemia Depression Monitor vital signs Monitor CBC Monitor CMP Continue telemetry monitoring Monitor blood sugar levels, continue sliding scale insulin, resume Lantus. Continue IV Zosyn Follow-up on blood cultures Continue pain control Continue IV fluids Continue home meds Labs and medication were reviewed.. Continue same treatment. Continue with symptomatic treatment. Resume home medication. Monitor labs and vitals. DVT and GI prophylaxis. Further recommendations as per clinical course of the patient Dictation was produced using [employer] dictation software. please excuse any grammatical, word or spelling errors. Objective - Vital Signs Vital signs: Vital Signs Temp 97.4 F L 03/17/23 07:00 Pulse 80 03/17/23 07:00 Resp 16 03/17/23 07:00 BP 144/90 03/17/23 07:00 Pulse Ox 94 L 03/17/23 07:00 FiO2 Intake & Output 03/16/23 03/17/23 03/17/23 18:59 06:59 18:59 Intake Total 951 100 Balance 951 100 Weight 77.564 kg Intake: Oral 951 100 Other: Voiding Method Toilet # Voids 3 1 - Labs CBC & Chem 7: 03/17/23 10:18 03/17/23 10:18 Labs: Abnormal Lab Results - Last 24 Hours (Table) 03/16/23 03/16/23 03/17/23 Range/Units 12:48 20:31 06:07 POC Glucose (mg/dL) 163 H 145 H 161 H (70-110) mg/dL
[2023-03-17 17:35] LABS: Glucose,Whole Blood 132 mg/dL (70-110)
[2023-03-17 20:39] LABS: Glucose,Whole Blood 137 mg/dL (70-110)
[2023-03-17] MEDS: FAMOTIDINE 20 MG TAB PO SCH (21:43)
[2023-03-17] MEDS: traZODone HCL 50 MG TAB PO PRN (23:15)
[2023-03-18] MEDS: MORPHINE SULFATE 4 MG/ML SYRINGE IV PRN ×5 (04:24→22:25)
[2023-03-18 06:03] LABS: Glucose,Whole Blood 155 mg/dL (70-110)
[2023-03-18] MEDS: INSULIN ASPART (NovoLOG) 100 UNIT/ML VIAL SQ SCH ×4 (06:09→22:20)
[2023-03-18] MEDS: INSULIN DETEMIR (LEVEMIR) 100 UNIT/ML SYR SQ SCH (06:22)
[2023-03-18] MEDS: POTASSIUM CHLORIDE ER 20 MEQ TAB.ER PO SCH ×2 (06:24→16:57)
[2023-03-18] MEDS: PIPERACILLIN-TAZOBACTAM 3.375 GM in SODIUM CHLORIDE 0.9% 100 ML IVPB SCH ×2 (08:36→16:58)
[2023-03-18] MEDS: hydroCHLOROthiazide 12.5 MG CAP PO SCH (08:40)
[2023-03-18] MEDS: lisinopriL 10 MG TAB PO SCH (08:40)
[2023-03-18] MEDS: busPIRone HCl 5 MG TAB PO SCH ×3 (08:40→22:21)
[2023-03-18] MEDS: APIXABAN 5 MG TAB PO SCH ×2 (08:40→22:20)
[2023-03-18] MEDS: PIOGLITAZONE 15 MG TAB PO SCH (08:41)
[2023-03-18] MEDS: GABAPENTIN 400 MG CAP PO SCH ×3 (08:41→22:21)
[2023-03-18] MEDS: DAPAGLIFLOZIN PROPANEDIOL 5 MG TABLET PO SCH (08:41)
[2023-03-18] MEDS: cloNIDine HCL 0.1 MG TAB PO SCH ×2 (08:41→22:20)
[2023-03-18] MEDS: ATORVASTATIN 80 MG TAB PO SCH (08:41)
[2023-03-18 12:37] LABS: Glucose,Whole Blood 127 mg/dL (70-110)
--- NOTE | 2023-03-18 15:33 | P.PN ---
Subjective Progress Note Date: 03/18/23 patient is a 52-year-old lady with recent visit to the ER for abdominal pain and was diagnosed as having diverticulitis and was discharged on oral antibiotics. Patient stated that she was discharged yesterday and as soon as she started eating she started noticing increasing abdominal pain. Abdominal pain was generalized and was much more severe compared to the previous time. Patient stated that there was no nausea or vomiting but did complain of loss of appetite. Because his worsening abdominal pain she came back ER Initial lab work done in the ER showed WBC 7.5, hemoglobin 12.7, platelet count 187, sodium 137, potassium 3.9, BUN 1214, creatinine 0.57 CT abdominal pelvis done on 03/14 showed generalized colonic diverticulosis there is mild wall thickening and some minimal fat stranding along the proximal to mid sigmoid colon possible mild acute diverticulitis, no abscess or free air Patient admitted to medicine service 03/17. Patient seen and examined. States abdominal pain has improved. Currently on clear liquid diet, advance to full liquid 03/18. Patient seen and examined. States she is feeling better. Abdominal pain has improved, advance diet to regular REVIEW OF SYSTEMS: CONSTITUTIONAL: No fever, no malaise,. CARDIOVASCULAR: No chest pain, no palpitations, no syncope. PULMONARY: No shortness of breath, no cough, GASTROINTESTINAL: No diarrhea, no nausea, no vomiting, no abdominal pain. NEUROLOGICAL: No headaches, no weakness, PHYSICAL EXAMINATION: GENERAL: The patient is alert and oriented x3, not in any acute distress. Well developed, well nourished. HEENT: Pupils are round and equally reacting to light. EOMI. No scleral icterus. No conjunctival pallor. Normocephalic, atraumatic. No pharyngeal erythema. No thyromegaly. CARDIOVASCULAR: S1 and S2 present. No murmurs, rubs, or gallops. PULMONARY: Chest is clear to auscultation, no wheezing or crackles. ABDOMEN: Soft, nontender, nondistended, normoactive bowel sounds. No palpable organomegaly. MUSCULOSKELETAL: No joint swelling or deformity. EXTREMITIES: No cyanosis, clubbing, or pedal edema. NEUROLOGICAL: Gross neurological examination did not reveal any focal deficits. SKIN: No rashes. Assessment and plan Acute diverticulitis Hypertension Insulin-dependent diabetes mellitus Hyperlipidemia Depression Monitor vital signs Monitor CBC Monitor CMP Continue telemetry monitoring Monitor blood sugar levels, continue sliding scale insulin, Lantus. Continue IV Zosyn Follow-up on blood cultures Continue pain control Continue IV fluids Continue home meds Labs and medication were reviewed.. Continue same treatment. Continue with symptomatic treatment. Resume home medication. Monitor labs and vitals. DVT and GI prophylaxis. Further recommendations as per clinical course of the patient Dictation was produced using [employer] dictation software. please excuse any grammatical, word or spelling errors. Objective - Vital Signs Vital signs: Vital Signs Temp 98.4 F 03/18/23 07:00 Pulse 71 03/18/23 07:00 Resp 16 03/18/23 07:00 BP 114/79 03/18/23 07:00 Pulse Ox 97 03/18/23 07:00 FiO2 Intake & Output 03/17/23 03/18/23 03/18/23 18:59 06:59 18:59 Intake Total 640 150 Balance 640 150 Intake: Oral 640 150 Other: Voiding Method Toilet # Voids 3 2 - Labs CBC & Chem 7: 03/17/23 10:18 03/17/23 10:18 Labs: Abnormal Lab Results - Last 24 Hours (Table) 03/17/23 03/17/23 03/18/23 Range/Units 17:34 20:38 06:02 POC Glucose (mg/dL) 132 H 137 H 155 H (70-110) mg/dL 03/18/23 Range/Units 12:37 POC Glucose (mg/dL) 127 H (70-110) mg/dL Microbiology - Last 24 Hours (Table) 03/16/23 10:12 Blood Culture - Preliminary Blood 03/16/23 10:00 Blood Culture - Preliminary Blood
[2023-03-18 17:05] LABS: Glucose,Whole Blood 159 mg/dL (70-110)
[2023-03-18 20:24] LABS: Glucose,Whole Blood 171 mg/dL (70-110)
[2023-03-18] MEDS: FAMOTIDINE 20 MG TAB PO SCH (22:20)
[2023-03-18] MEDS: traZODone HCL 50 MG TAB PO PRN (22:25)
[2023-03-18] MEDS: SODIUM CHLORIDE 0.9% 1,000 ML IV SCH (23:44)
[2023-03-19] MEDS: PIPERACILLIN-TAZOBACTAM 3.375 GM in SODIUM CHLORIDE 0.9% 100 ML IVPB SCH ×3 (00:48→15:23)
[2023-03-19] MEDS: MORPHINE SULFATE 4 MG/ML SYRINGE IV PRN (04:47)
[2023-03-19 05:56] LABS: Glucose,Whole Blood 140 mg/dL (70-110)
[2023-03-19] MEDS: INSULIN ASPART (NovoLOG) 100 UNIT/ML VIAL SQ SCH ×3 (05:59→19:14)
[2023-03-19] MEDS: INSULIN DETEMIR (LEVEMIR) 100 UNIT/ML SYR SQ SCH (06:10)
[2023-03-19] MEDS: POTASSIUM CHLORIDE ER 20 MEQ TAB.ER PO SCH ×2 (06:10→19:14)
[2023-03-19] MEDS: ATORVASTATIN 80 MG TAB PO SCH (09:02)
[2023-03-19] MEDS: GABAPENTIN 400 MG CAP PO SCH ×2 (09:02→15:33)
[2023-03-19] MEDS: PIOGLITAZONE 15 MG TAB PO SCH (09:02)
[2023-03-19] MEDS: APIXABAN 5 MG TAB PO SCH (09:02)
[2023-03-19] MEDS: lisinopriL 10 MG TAB PO SCH (09:02)
[2023-03-19] MEDS: cloNIDine HCL 0.1 MG TAB PO SCH (09:02)
[2023-03-19] MEDS: KETOROLAC 15 MG/ML 1 ML VIAL IVP PRN ×2 (09:03→15:23)
[2023-03-19] MEDS: busPIRone HCl 5 MG TAB PO SCH ×2 (09:03→15:23)
[2023-03-19] MEDS: hydroCHLOROthiazide 12.5 MG CAP PO SCH (09:03)
[2023-03-19] MEDS: DAPAGLIFLOZIN PROPANEDIOL 5 MG TABLET PO SCH (09:03)
[2023-03-19 09:22] LABS: Basophils # (A) 0.06 X 10*3/uL (0.00-0.10); Basophils % (A) 0.8 %; Eosinophils # (A) 0.22 X 10*3/uL (0.04-0.35); HCT 37.7 % (37.2-46.3); HGB 11.9 d/dL (12.0-15.0); MCHC 31.6 d/dL (32.0-37.0); Monocytes # (A) 0.57 X 10*3/uL (0.20-1.00); Monocytes % (A) 7.8 %; NRBC Per 100 WBC 0 X 10*3/uL (0.00-0.01); Neutrophils # (A) 4.81 X 10*3/uL (1.80-7.70); Neutrophils % (A) 66.1 %; Platelet Count 203 X 10*3/uL (140-440); RBC 3.97 X 10*6/uL (4.10-5.20); RDW 13.8 % (11.5-14.5); WBC 7.28 X 10*3/uL (4.50-10.00)
[2023-03-19 09:30] LABS: ALT 22 U/L (8-44); AST 24 U/L (13-35); Albumin 3.8 d/dL (3.8-4.9); Albumin/Globulin Ratio 1.58 Ratio (1.60-3.17); Alkaline Phosphatase 138 U/L (41-126); BUN/Creat Ratio 15.33 Ratio (12.00-20.00); Blood Urea Nitrogen 13.8 mg/dL (9.0-27.0); Calcium 8.7 mg/dL (8.7-10.3); Carbon Dioxide 22.1 mmol/L (21.6-31.8); Chloride 103 mmol/L (96-109); Globulin 2.4 d/dL (1.6-3.3); Glucose 125 mg/dL (70-110); Potassium 4.1 mmol/L (3.5-5.5); Sodium 139 mmol/L (135-145); Total Bilirubin 0.9 mg/dL (0.3-1.2); Total Protein 6.2 d/dL (6.2-8.2)
[2023-03-19 11:39] LABS: Glucose,Whole Blood 129 mg/dL (70-110)
[2023-03-19 17:56] VITALS: BP 98/68; PULSE 70; RESP 16; TEMP 97.8
--- NOTE | 2023-03-19 18:07 | XR ---
EXAMINATION TYPE: XR lumbar spine 2 or 3V DATE OF EXAM: 03/19/2023 5:56 PM INDICATION: Patient age:Female; 52 years old; Reason for study: pain; PHH. COMPARISON: None TECHNIQUE: Frontal, lateral and coned in L5-S1 lateral views of the spine. FINDINGS: No evidence of any acute osseous pathology. No evidence of loss of vertebral body height i s seen. There is normal alignment of the lumbar vertebral bodies. Mild scattered disc space narrowing . Multilevel marginal osteophyte formation throughout the visualized spine. There is facet joint arth ropathy throughout the spine. Scattered at least mild neural foraminal stenosis. IVC filter in place. IMPRESSION: 1. No acute fracture. 2. Mild multilevel disc degeneration.
--- NOTE | 2023-03-20 21:28 | P.DS ---
Providers Date of admission: 03/15/23 22:49 Attending physician: Danna Saeed Primary care physician: Susie Redding Hospital Course: Final Diagnosis Acute diverticulitis Hypertension Insulin-dependent diabetes mellitus Hyperlipidemia Depression Degenerative disc disease and chronic back pain Hx of stroke and aphasia. Full Code Discharge Disposition Patient is stable for discharge home. Patient has tolerated advanced diet and abdominal pain has improved. Recommending to stop oral augmentin from prior discharge and patient will be discharged on combination of oral ceftin and oral flagyl. Patient educated on diet for diverticulitis and also recommended to f ollow up with general surgery/ GI on discharge. Patient has discussed need a screening colonoscopy discussed patient needs to finish antibiotics and follow up outpatient. Hospital Course This is a 52 year old female with medical history of hypertension, diabetes mellitus, hyperlipidemia, depression, chronic back pain and stroke with residual aphasia. Patient was recently in ER for abdominal pain and was diagnosed as having diverticulitis and was discharged on oral antibiotics. Patient stated that she was discharged and went home and as soon as she started eating she started noticing increasing abdominal pain. Abdominal pain was generalized and was much more severe compared to the previous time. Patient stated that there was no nausea or vomiting but did complain of loss of appetite. Because of the worsening abdominal pain she came back ER. Lab work on admission is essentially unremarkable. Patient was admitted under medicine for bowel rest and given clear liquid diet started on IV antibiotics. CT abdominal pelvis done on 03/14 showed generalized colonic diverticulosis there is mild wall thickening and some minimal fat stranding along the proximal to mid sigmoid colon possible mild acute diverticulitis, no abscess or free air. Diet was advanced and patient tolerating no nausea vomiting or diarrhea. No fever, no chest pain, no shortness of breath. Recommending to stop the prior antibiotic and discharge on combination of ceftin and flagyl. Patient does complain of chronic lower back a lumbar xray was done prior to discharge there is no acute fracture. Xray reports multilevel degenerative changes. Patient recommending to see PCP and f/u with orthopedics on discharge. Patient is agreeable to discharge plan. Please see medication reconciliation for a list of current medications. Thank you for allowing us to participate in the care of this patient. The impression and plan of care has been dictated by Yeni Avila, Nurse Practitioner as directed. Dr. Leydi MD I have performed a history and physical examination and medical decision making of this patient, discussed the same with the dictator, and agree with the dictators assessment and plan as written, documented as a scribe. Based on total visit time, I have performed more than 50% of this visit. Patient Condition at Discharge: Stable Plan - Discharge Summary New Discharge Prescriptions: New cefUROXime axetiL [Ceftin] 500 mg PO BID 4 Days #8 tab metroNIDAZOLE [Flagyl] 500 mg PO TID 4 Days #12 tab HYDROcodone/APAP 5-325MG [[place] 5-325] 1 each PO Q6HR PRN #12 tab PRN Reason: Moderate To Severe Pain (4-10) Continue Gabapentin 800 mg PO TID Apixaban [Eliquis] 5 mg PO BID traZODone HCL 150 mg PO HS PRN PRN Reason: Insomnia Rosuvastatin Calcium [Crestor] 40 mg PO DAILY busPIRone HCL 15 mg PO TID Pioglitazone [Actos] 15 mg PO DAILY Dapagliflozin Propanediol [Farxiga] 5 mg PO DAILY Potassium Chloride ER [K-Dur 20] 20 meq PO BID-W/MEALS hydroCHLOROthiazide [Hydrodiuril] 12.5 mg PO DAILY Insulin Glargine,Hum.rec.anlog [Lantus Solostar Pen] 36 unit SQ DAILY Famotidine 40 mg PO HS lisinopriL [Zestril] 30 mg PO DAILY cloNIDine HCL [Catapres] 0.05 mg PO BID Discontinued Amoxic-Pot Clav 875-125Mg [Augmentin 875-125] 1 tab PO Q12HR 1 Days #14 tab Discharge Medication List Apixaban [Eliquis] 5 mg PO BID 08/04/21 [History] Famotidine 40 mg PO HS 08/04/21 [History] Gabapentin 800 mg PO TID 08/04/21 [History] Insulin Glargine,Hum.rec.anlog [Lantus Solostar Pen] 36 unit SQ DAILY 08/04/21 [History] Potassium Chloride ER [K-Dur 20] 20 meq PO BID-W/MEALS 08/04/21 [History] hydroCHLOROthiazide [Hydrodiuril] 12.5 mg PO DAILY 08/04/21 [History] Dapagliflozin Propanediol [Farxiga] 5 mg PO DAILY 03/14/23 [History] Pioglitazone [Actos] 15 mg PO DAILY 03/14/23 [History] Rosuvastatin Calcium [Crestor] 40 mg PO DAILY 03/14/23 [History] busPIRone HCL 15 mg PO TID 03/14/23 [History] cloNIDine HCL [Catapres] 0.05 mg PO BID 03/14/23 [History] lisinopriL [Zestril] 30 mg PO DAILY 03/14/23 [History] traZODone HCL 150 mg PO HS PRN 03/14/23 [History] HYDROcodone/APAP 5-325MG [[place] 5-325] 1 each PO Q6HR PRN #12 tab 03/19/23 [Rx] cefUROXime axetiL [Ceftin] 500 mg PO BID 4 Days #8 tab 03/19/23 [Rx] metroNIDAZOLE [Flagyl] 500 mg PO TID 4 Days #12 tab 03/19/23 [Rx] Follow up Appointment(s)/Referral(s): Susie Redding MD [Primary Care Provider] - 1-2 days Germaine Root MD [STAFF PHYSICIAN] - 1 Week Ambulatory/Diagnostic Orders: Basic Metabolic Panel [LAB.AMB] Time Frame: 3 Days, Location: None Selected Patient Instructions/Handouts: Diverticulitis (DC), Diverticulitis Diet (DC) Activity/Diet/Wound Care/Special Instructions: Recommend to follow up with Dr. Hugo Root on discharge regarding diverticulitis and outpatient colonoscopy screening Stop Augmentin and begin taking ceftin 500 mg twice a day for 4 days and also metronidazole 500 mg three times a day for 4 days Wanblee has been sent in for pain management Follow up with Dr. Redding for further pain management needs Recommend softer diet for the next week. Discharge Disposition: HOME SELF-CARE
== END 2023-03-19 18:30 | disposition home or self-care (01) ==
LOC: EC 22:11 → 6NMEDSUR 22:49
PROVIDERS: ADMIT Hospitalist; ATTEND Hospitalist
DX: K57.92 Diverticulitis of intestine, part unspecified, without perforation or abscess without bleeding (principal); I10 Essential (primary) hypertension; E78.5 Hyperlipidemia, unspecified; F32.A Depression, unspecified; E11.9 Type 2 diabetes mellitus without complications; G89.29 Other chronic pain; I69.320 Aphasia following cerebral infarction; M54.9 Dorsalgia, unspecified; Z16.24 Resistance to multiple antibiotics; Z86.14 Personal history of Methicillin resistant Staphylococcus aureus infection; F17.200 Nicotine dependence, unspecified, uncomplicated; Z79.01 Long term (current) use of anticoagulants; Z79.899 Other long term (current) drug therapy; Z79.84 Long term (current) use of oral hypoglycemic drugs; Z79.4 Long term (current) use of insulin
CPT/HCPCS: 96376 ×5; 96365; 96366 ×4; 96375 ×2; 99285; 80053 ×2; 80048; 85025 ×3; 87040; 83036; 72100; G0378 ×5; J2543 ×4; J2270 ×4; J1885

== ENCOUNTER → 2023-05-17 | Outpatient (CLI) | payer MEDICARE, OTHER ==
[2023-05-17 07:46] LABS: African American GFR (CKD) >90 (>60 ml/min/1.73 sqM); Blood Urea Nitrogen 16 mg/dL (7-17); Non-African American GFR(CKD) >90 (>60 ml/min/1.73 sqM)
--- NOTE | 2023-05-17 09:26 | CT ---
EXAMINATION: CT ABDOMEN AND PELVIS WITH IV CONTRAST DATE OF EXAMINATION: 05/17/2023. COMPARISON: None available. INDICATION: History of diverticulitis. PROCEDURE: Axial CT of the abdomen and pelvis was performed with contrast and sagittal and coronal reformatted images were performed. CT dose lowering techniques were used, to include: automated expos ure control, adjustment for patient size, and/or use of iterative reconstruction. 100 mL of Isovue-30 0 was given intravenously. FINDINGS: LOWER CHEST : The visualized lung bases are clear. There are no pleural or pericardial effusions. ABDOMEN: Liver and Biliary system: Normal. Adrenal glands: Normal. Kidneys and ureters: Normal. Spleen: Normal. Pancreas: Normal. Gallbladder: Normal. Lymph nodes, Peritoneum and mesentery: There is no mesenteric or retroperitoneal lymphadenopathy. Gastrointestinal tract: There are no dilated loops of bowel or free intraperitoneal air. The appe ndix is normal. There is moderate diffuse colonic diverticulosis without evidence of diverticulitis. Aorta/IVC: No aortic aneurysm. IVC filter is present. IVC appears diminutive. Abdominal wall: Normal. PELVIS: Fluid: There is no free fluid in the pelvis. Lymph Nodes: There is no pelvic or inguinal lymphadenopathy.. Urinary bladder: Normal. BONES: There are no osseous destructive lesions.. ADDITIONAL SIGNIFICANT FINDINGS: None. IMPRESSION: 1. No acute process within the abdomen or pelvis. 2. Diverticulosis without evidence of diverticulitis.
== END | disposition home or self-care (01) ==
LOC: RADCTMAIN 06:58
PROVIDERS: ATTEND Surgery
DX: K57.32 Diverticulitis of large intestine without perforation or abscess without bleeding (principal); K57.30 Diverticulosis of large intestine without perforation or abscess without bleeding
CPT/HCPCS: 82565; 84520; 74177; 36415; Q9967

== ENCOUNTER → 2023-06-08 | Outpatient (CLI) | payer MEDICARE, OTHER ==
[2023-06-08 19:32] LABS: Basophils # (A) 0.06 X 10*3/uL (0.00-0.10); Basophils % (A) 0.7 %; Eosinophils # (A) 0.08 X 10*3/uL (0.04-0.35); Eosinophils % (A) 0.9 %; HCT 41.2 % (37.2-46.3); HGB 13.5 d/dL (12.0-15.0); Lymphocytes # (A) 1.75 X 10*3/uL (0.90-5.00); Lymphocytes % (A) 19.6 %; MCH 30.5 pg (27.0-32.0); MCHC 32.8 d/dL (32.0-37.0); MCV 93.2 FL (80.0-97.0); Mean Platelet Volume 11.5 FL (9.5-12.2); Monocytes # (A) 0.46 X 10*3/uL (0.20-1.00); Monocytes % (A) 5.2 %; NRBC Per 100 WBC 0 X 10*3/uL (0.00-0.01); Neutrophils # (A) 6.51 X 10*3/uL (1.80-7.70); Neutrophils % (A) 72.8 %; Platelet Count 197 X 10*3/uL (140-440); RBC 4.42 X 10*6/uL (4.10-5.20); RDW 13.2 % (11.5-14.5); WBC 8.93 X 10*3/uL (4.50-10.00)
[2023-06-09 03:11] LABS: Anion Gap 12.8 mmol/L (4.00-12.00); Carbon Dioxide 22.2 mmol/L (21.6-31.8)
== END | disposition home or self-care (01) ==
LOC: LABPAT 14:42
PROVIDERS: ATTEND Surgery
DX: Z01.812 Encounter for preprocedural laboratory examination (principal); K57.32 Diverticulitis of large intestine without perforation or abscess without bleeding
CPT/HCPCS: 80051; 85025; 86850; 86900; 86901; 93005

== ENCOUNTER 2023-06-18 05:40 | Inpatient (IN) | payer MEDICARE, OTHER ==
[~2023-06-18 05:40] MED LIST: ACETAMINOPHEN TAB 500 MG TAB PO PRN; HEPARIN SODIUM,PORCINE/PF 5,000 UNIT/0.5 ML SYRINGE SQ PRN; metroNIDAZOLE-NS PMX 500 MG in SALINE 1 100ML.BAG IVPB PRN
[2023-06-18] MEDS ORDERED: ONDANSETRON 4 MG/2 ML VIAL IVP ONE (06:12)
[2023-06-18] MEDS ORDERED: DEXAMETHASONE SOD PHOSPHATE 4 MG/ML 1 ML VIAL IV ONE (06:12)
[2023-06-18] MEDS ORDERED: MIDAZOLAM 2 MG/2 ML VIAL IV PRN (06:12)
[2023-06-18] MEDS ORDERED: LIDOCAINE 1% (10MG/ML) FOR IV START INTRADERMA PRN (06:12)
[2023-06-18 07:07] LABS: Glucose,Whole Blood 147 mg/dL (70-110)
[2023-06-18] MEDS ORDERED: ALVIMOPAN 12 MG CAPSULE PO ONE (07:15)
[2023-06-18] MEDS: LACTATED RINGERS 1,000 ML IV SCH (07:20)
[2023-06-18] MEDS ORDERED: MIDAZOLAM 2 MG/2 ML VIAL IVP ONE (07:23)
[2023-06-18] MEDS ORDERED: fentaNYL (PF) 50 MCG/1 ML VIAL IVP ONE (07:23)
[2023-06-18] MEDS ORDERED: GLYCOPYRROLATE 0.2 MG/ML 2 ML VIAL ONE (07:33)
[2023-06-18] MEDS ORDERED: ROCURONIUM 10 MG/ML (5 ML VIAL) IV ONE (07:33)
[2023-06-18] MEDS ORDERED: LIDOCAINE 1%-EPI 1:100,000 20 ML VIAL ONE (07:33)
[2023-06-18] MEDS ORDERED: NEOSTIGMINE 1 MG/ML 10 ML VIAL ONE (07:33)
[2023-06-18] MEDS ORDERED: KETAMINE HCL IN 0.9 % NACL 50 MG/5 ML SYRINGE ONE (07:33)
[2023-06-18] MEDS ORDERED: PHENYLEPHRINE 10 MG/ML 5 ML VIAL ONE (07:33)
[2023-06-18] MEDS ORDERED: LIDOCAINE 1% INJ 10MG/ML (20 ML MDV) ONE (07:33)
[2023-06-18] MEDS ORDERED: SUCCINYLCHOLINE CHLORIDE 200 MG/10 ML VIAL IV ONE (07:33)
[2023-06-18] MEDS ORDERED: LIDOCAINE 2% (PF) 20 MG/ML 2 ML VIAL ONE (07:33)
[2023-06-18] MEDS ORDERED: HYDROmorphone (PF) 1 MG/ML ONE (07:33)
[2023-06-18] MEDS ORDERED: fentaNYL (PF) 50 MCG/ML 2 ML AMP ONE (07:33)
[2023-06-18] MEDS ORDERED: PROPOFOL 10 MG/ML 20 ML VIAL IV ONE (07:33)
[2023-06-18] MEDS ORDERED: ROPIVACAINE 5 MG/ML 30 ML VIAL ONE (07:33)
--- NOTE | 2023-06-18 08:24 | P.ANPRN ---
Procedure Note - Anesthesia - Nerve Block Performed Bilateral Erector Spinae Single Time Out Performed: Yes Date of Procedure: 06/18/23 Procedure Start Time: Procedure Stop Time: Location of Patient: PreOp Indication: Acute Post-Operative Pain, Requested by Surgeon Specifically requested for management of pain by DrFabián: Haroon Lewis Sedation Type: Sedate with meaningful contact maintained Preparation: Sterile Prep Position: Prone Needle Types: Pajunk Needle Gauge: 21 Ultrasound used to visualize needle placement: Yes Ultrasound used to observe medication spread: Yes Injectate: 0.5% Ropivacaine (see comment for volume) (15 ml + 15 ml lidocaine 1% with epi per side) Blood Aspirated: No Pain Paresthesia on Injection Noted: No Resistance on Injection: Normal Image Stored and Saved: Yes Events: Uneventful and Well Tolerated
[2023-06-18] MEDS ORDERED: LACTATED RINGERS 1,000 ML IV ONE (08:56)
[2023-06-18] MEDS ORDERED: BENZOCAINE/MENTHOL LOZENG 1 EACH LOZENGE MUCOUS MEM PRN (09:25)
[2023-06-18] MEDS ORDERED: ONDANSETRON 4 MG/2 ML VIAL IVP PRN (09:25)
[2023-06-18] MEDS ORDERED: KETOROLAC 15 MG/ML 1 ML VIAL IVP PRN (09:25)
--- NOTE | 2023-06-18 09:25 | P.OP ---
Date of Procedure: 06/18/23 Preoperative Diagnosis: Diverticulitis Postoperative Diagnosis: Diverticulitis The lateral ovarian cyst Procedure(s) Performed: Low anterior resection Bilateral ovarian cystectomy Partial omentectomy Takedown of splenic flexure Anesthesia: VANE Surgeon: Haroon Lewis Estimated Blood Loss (ml): 100 Pathology: other (Sigmoid colon, omentum) Condition: stable Disposition: PACU Description of Procedure: The patient's placed on the operative table in supine position. She received general endotracheal tube anesthesia. Her abdomen was prepped and draped in usual sterile fashion. She was placed in dorsal lithotomy position. The abdomen was entered through a low midline incision. The Bookwalter tract with wound. The patient had significant omental adhesions to the pelvis. These were lysed with sharp dissection. A portion of omentum was sent to pathology. The sigmoid colon was examined. There is extensive diverticular disease. The diverticulosis extended to the level of the splenic flexure. The patient's ovaries were adherent to the omentum. There appeared to be evidence of bilateral ovarian cysts. Bilateral ovarian cystectomies performed using electrocautery. The left colon was mobilized by dividing the white line of Toldt's. The splenic flexure was taken down with sharp and blunt dissection and using the Enseal device. A suitable spot on the transverse colon was found for the anastomosis. And then a enterotomy is made in the colon distal to this. The anvil for the 29 mm EEA stapler was placed into the colon. In the colon was transected with the EILEEN stapler. And then the anvil spike was driven through the staple line. Using the Enseal device the mesentery of the colon was then divided. The the mesentery was divided down to the level rectum. And then the rectum was transected with the TA stapler. At this point the nursing home assistant administrator placed the anal dilators anus. The dilator anus was dilated to 29 mm. And then the sigmoidoscope was placed into the rectal stump and insulin air. There is no evidence of air leakage from the rectal stump. At this point the 29 mm EEA stapler was placed in the rectum. The spike was driven through the anterior rectal wall. And then the anvil was connected to the stapler. The stapler is then closed and then fired. The stapler was withdrawn. 2 intact donuts of tissue were removed the stapler. The anastomosis was checked under air insufflation with the rigid sigmoidoscope. There is no evid ence of any extravasation of air at the anastomotic staple line. The abdomen was then irrigated. There is no bleeding seen. The fascia is closed loop #1 PDS suture. Skin was closed chantell. Patient top she'll well she was sent to recovery room in stable condition.
[2023-06-18] MEDS: HYDROmorphone 0.5 MG/0.5 ML SYRINGE IVP PRN ×4 (09:44→11:21)
[2023-06-18] MEDS ORDERED: DEXAMETHASONE SOD PHOSPHATE 4 MG/ML 1 ML VIAL MISCELLANE ONE (10:50)
[2023-06-18] MEDS ORDERED: ROPIVACAINE 5 MG/ML 30 ML VIAL MISCELLANE ONE (10:50)
[2023-06-18 12:16] LABS: Glucose,Whole Blood 204 mg/dL (70-110)
[2023-06-18] MEDS ORDERED: NALOXONE 0.4 MG/ML 1 ML VIAL IV PRN (14:34)
--- NOTE | 2023-06-18 14:37 | P.ANPRN ---
Procedure Note - Anesthesia - Epidural/Spinal Epidural Continuous Time Out Performed: Yes Date of Procedure: 06/18/23 Procedure Start Time: 14:15 Procedure Stop Time: 14:25 Location of Patient: Phase I Indication: Acute Post-Operative Pain, Requested by Surgeon Sedation Type: Sedate with meaningful contact maintained Preparation: Sterile Dressing Position: Sitting Catheter: Indwelling Needle Guage: 18 Blood Aspirated: No Pain Paresthesia on Injection Noted: No Events: Uneventful and Well Tolerated (test does negative and pat given loading does lidocaine 1 % 10 ml)
[2023-06-18] MEDS ORDERED: traZODone HCL 50 MG TAB PO PRN (14:41)
[2023-06-18] MEDS: ROPIVACAINE 250 MG, HYDROMORPHONE (PF) 5 MG in SODIUM CHLORIDE 0.9% 200 ML EPIDURAL PRN (15:11)
[2023-06-18 16:39] LABS: Glucose,Whole Blood 221 mg/dL (70-110)
[2023-06-18 17:03] LABS: Basophils % (A) 0 %; Eosinophils # (A) 0.1 k/uL (0-0.7); Eosinophils % (A) 0 %; HCT 42.3 % (34.0-46.0); HGB 13.4 gm/dL (11.4-16.0); Lymphocytes # (A) 0.4 k/uL (1.0-4.8); Lymphocytes % (A) 3 %; MCH 29.6 pg (25.0-35.0); MCHC 31.8 g/dL (31.0-37.0); MCV 93.2 fL (80.0-100.0); Mean Platelet Volume 8.3; Monocytes # (A) 0.5 k/uL (0-1.0); Monocytes % (A) 4 %; Neutrophils # (A) 13.3 k/uL (1.3-7.7); Neutrophils % (A) 92 %; Platelet Count 203 k/uL (150-450); RBC 4.53 m/uL (3.80-5.40); RDW 13.6 % (11.5-15.5); WBC 14.4 k/uL (3.8-10.6)
[2023-06-18 17:14] LABS: African American GFR (CKD) >90 (>60 ml/min/1.73 sqM); Anion Gap 13 mmol/L; Blood Urea Nitrogen 13 mg/dL (7-17); Calcium 8.5 mg/dL (8.4-10.2); Carbon Dioxide 16 mmol/L (22-30); Chloride 106 mmol/L (98-107); Glucose 199 mg/dL (74-99); Non-African American GFR(CKD) >90 (>60 ml/min/1.73 sqM); Potassium 4.4 mmol/L (3.5-5.1); Sodium 135 mmol/L (137-145)
[2023-06-18] MEDS: POTASSIUM CHLORIDE ER 20 MEQ TAB.ER PO SCH (18:00)
[2023-06-18 20:40] LABS: Glucose,Whole Blood 161 mg/dL (70-110)
[2023-06-18] MEDS: cloNIDine HCL 0.1 MG TAB PO SCH (20:49)
[2023-06-18] MEDS: FAMOTIDINE 20 MG TAB PO SCH (20:49)
--- NOTE | 2023-06-18 23:29 | CONS ---
CONSULTATION REASON FOR CONSULTATION: Advice regarding diabetes mellitus and other medical issues requested by Surgery. HISTORY OF PRESENT ILLNESS: A 53-year-old woman with a past medical history of multiple medical issues including diabetes mellitus, history of DVT and IVC filter, was admitted after low anterior resection, bilateral ovarian cystectomy, and partial omentectomy for diverticulitis and ovarian cyst. There is no history of any fever, rigors, or chills. At this time, the patient is postoperative. PAST MEDICAL HISTORY: Reviewed include diabetes mellitus, DVT. The rest of the history and rest of the chart is also reviewed. HOME MEDICATIONS: Reviewed include trazodone. Dose and rest of medications reviewed. ALLERGIES: None. FAMILY HISTORY: No history of heart disease or strokes in the family. SOCIAL HISTORY: History of smoking. REVIEW OF SYSTEMS: Fourteen-point review is negative except as mentioned earlier. PHYSICAL EXAMINATION: VITAL SIGNS: Pulse is 107, blood pressure 140/70, respirations 20. HEENT: Conjunctivae normal. NECK: No JVD. CARDIOVASCULAR: S1, S2. RESPIRATIONS: Breath sounds diminished at the bases. ABDOMEN: Soft, status post surgery. LEGS: No edema. NERVOUS SYSTEM: Nonfocal. SKIN: No ulcer, rash, or bleeding. JOINTS: No active deforming arthropathy. LABORATORY DATA: Reviewed. ASSESSMENT: 1. Status post low anterior resection, bilateral ovarian cystectomy and partial omentectomy for diverticulitis and ovarian cyst. 2. Diabetes mellitus, type 2. 3. History of deep venous thrombosis. 4. Hypertension. 5. Hyperlipidemia. 6. History of cerebrovascular accident, transient ischemic attack. 7. Multiple medical issues. RECOMMENDATIONS AND DISCUSSION: This is a 53-year-old woman, who presented with multiple complex medical issues, we will monitor the patient closely. I would recommend initiate Eliquis within the next 24 hours surgery. Other than that, resume the home medication. Monitor blood sugars closely. DVT prophylaxis. We will follow the patient closely with you. MMODL / IJN: [id number] / DESIRE
[2023-06-19 06:10] LABS: Glucose,Whole Blood 143 mg/dL (70-110)
[2023-06-19] MEDS: LACTATED RINGERS 1,000 ML IV SCH ×3 (06:39→18:31)
[2023-06-19] MEDS: POTASSIUM CHLORIDE ER 20 MEQ TAB.ER PO SCH ×2 (06:49→16:49)
--- NOTE | 2023-06-19 06:58 | P.PN ---
Progress Note - Text Progress Note Date: 06/19/23 Postoperative day # 1 status post low anterior resection ,epidural catheter placed for postoperative analgesia, patient doing well epidural site okay, patient currently on combination of epidural infusion solution of Ropivacaine 0.0625% and Dilaudid 20 g per mL the infusion rate at 7 ml per hour , patient had no motor deficit epidural site okay , vital signs stable, Assessment and plan= post operative day # 1 patient doing well , there is no anesthesia related complications
[2023-06-19 08:48] LABS: Basophils # (A) 0.02 X 10*3/uL (0.00-0.10); Basophils % (A) 0.2 %; Eosinophils # (A) 0 X 10*3/uL (0.04-0.35); Eosinophils % (A) 0 %; HCT 35.6 % (37.2-46.3); HGB 11.6 d/dL (12.0-15.0); Lymphocytes # (A) 1.13 X 10*3/uL (0.90-5.00); Lymphocytes % (A) 8.9 %; MCH 30.1 pg (27.0-32.0); MCHC 32.6 d/dL (32.0-37.0); MCV 92.2 FL (80.0-97.0); Mean Platelet Volume 11.1 FL (9.5-12.2); Monocytes # (A) 0.98 X 10*3/uL (0.20-1.00); Monocytes % (A) 7.7 %; NRBC Per 100 WBC 0 X 10*3/uL (0.00-0.01); Neutrophils # (A) 10.58 X 10*3/uL (1.80-7.70); Neutrophils % (A) 82.8 %; Platelet Count 200 X 10*3/uL (140-440); RBC 3.86 X 10*6/uL (4.10-5.20); RDW 13.6 % (11.5-14.5); WBC 12.76 X 10*3/uL (4.50-10.00)
[2023-06-19 09:00] LABS: BUN/Creat Ratio 22.29 Ratio (12.00-20.00); Blood Urea Nitrogen 15.6 mg/dL (9.0-27.0); Calcium 8.8 mg/dL (8.7-10.3); Carbon Dioxide 21.9 mmol/L (21.6-31.8); Chloride 101 mmol/L (96-109); Glucose 131 mg/dL (70-110); Potassium 4.3 mmol/L (3.5-5.5); Sodium 136 mmol/L (135-145)
[2023-06-19] MEDS: ATORVASTATIN 80 MG TAB PO SCH (09:04)
[2023-06-19] MEDS: lisinopriL 10 MG TAB PO SCH (09:04)
[2023-06-19] MEDS: hydroCHLOROthiazide 12.5 MG CAP PO SCH (09:04)
[2023-06-19] MEDS: PIOGLITAZONE 15 MG TAB PO SCH (09:04)
[2023-06-19] MEDS: cloNIDine HCL 0.1 MG TAB PO SCH ×2 (09:04→21:15)
[2023-06-19] MEDS: INSULIN DETEMIR (LEVEMIR) 100 UNIT/ML SYR SQ SCH (09:05)
[2023-06-19] MEDS: HYDROmorphone 1 MG/ML 1 ML SYRINGE IVP PRN (09:10)
[2023-06-19 11:28] LABS: Glucose,Whole Blood 188 mg/dL (70-110)
[2023-06-19] MEDS: HYDROmorphone 0.5 MG/0.5 ML SYRINGE IVP PRN ×4 (12:37→21:38)
--- NOTE | 2023-06-19 13:45 | P.ANPRN ---
Procedure Note - Anesthesia - Nerve Block Performed Bilateral Transversus Abdominis Single Time Out Performed: Yes Date of Procedure: 06/18/23 Procedure Start Time: 10:45 Procedure Stop Time: 10:51 Location of Patient: Phase I Indication: Acute Post-Operative Pain, Requested by Surgeon Sedation Type: Sedate with meaningful contact maintained Preparation: Sterile Prep Needle Types: Pajunk Needle Gauge: 21 Ultrasound used to visualize needle placement: Yes Ultrasound used to observe medication spread: Yes Blood Aspirated: No Pain Paresthesia on Injection Noted: No Resistance on Injection: Normal Image Stored and Saved: Yes Events: Uneventful and Well Tolerated (ropi .5% 20cc plus dexamethasone 4mg given bilaterally)
--- NOTE | 2023-06-19 13:53 | P.PN ---
Subjective Progress Note Date: 06/19/23 CHIEF COMPLAINT: Diverticulitis HISTORY OF PRESENT ILLNESS: Patient is postop day #1 status post lower anterior resection, bilateral ovarian cystectomy, partial omentectomy and takedown of splenic flexure. Patient reports her pain is better controlled since increase in the epidural this morning. She denies any nausea vomiting. Denies any flatus. Afebrile. WBC is down from 14.4-12.76 PHYSICAL EXAM: VITAL SIGNS: Reviewed. GENERAL: Well-developed in no acute distress. HEENT: No sclera icterus. Extraocular movements grossly intact. Moist buccal mucosa. Head is atraumatic, normocephalic. ABDOMEN: Soft. Mildly distended. Prevana wound VAC intact NEUROLOGIC: Alert and oriented. Cranial nerves II through XII grossly intact. ASSESSMENT: 1. Diverticulitis and bilateral ovarian cysts PLAN: -Continue epidural for pain control -Continue Lockwood catheter -Continue IV fluids -Encouraged patient to use incentive spirometer -Encouraged patient to increase activity level -Continue IV fluids -Okay to resume Eliquis after epidural discontinued -DVT prophylaxis subcu heparin Physician Orthotics Prosthetics Technician note has been reviewed by physician. Signing provider agrees with the documented findings, assessment, and plan of care. I have personally seen and examined the patient, reviewed the PROFESSOR/NURSE ANESTHETIST /PAs history, exam and MDM and agree with the assessment and plan as written. Based on total visit time, I have performed more than 50% of the visit. As above: Patient has mild discomfort after surgery yesterday. No bowel movement yet. No nausea or vomiting. Continue clear liquids. Continue suction dressing. Add acetaminophen to existing analgesics. Ambulate. Objective - Vital Signs Vital signs: Vital Signs Temp 98.1 F 06/19/23 08:00 Pulse 84 06/19/23 08:00 Resp 20 06/19/23 08:00 BP 127/64 06/19/23 08:00 Pulse Ox 94 L 06/19/23 08:00 FiO2 Intake & Output 06/18/23 06/19/23 06/19/23 18:59 06:59 18:59 Intake Total 1668.2 Output Total 490 600 Balance 1178.2 -600 Weight 78.5 kg Intake: IV 1250 Intake, IV Titration 418.2 Amount Lactated Ringers 1,000 ml 400 @ 20 mls/hr IV .Q24H [facility] Rx#:[id number] Ropivacaine 250 mg 18.2 Hydromorphone (Pf) 5 mg In Sodium Chloride 0.9% 200 ml @ Per Protocol EPIDURAL .Q0M PRN Rx#: [id number] Output: Urine 390 600 Estimated Blood Loss 100 Other: Voiding Method Indwelling Catheter Indwelling Catheter - Labs CBC & Chem 7: 06/19/23 05:53 06/19/23 05:53 Labs: Abnormal Lab Results - Last 24 Hours (Table) 06/18/23 06/18/23 06/18/23 Range/Units 13:30 16:25 16:25 WBC 14.4 H (3.8-10.6) k/uL RBC (4.10-5.20) X 10*6/uL Hgb (12.0-15.0) d/dL Hct (37.2-46.3) % Neutrophils # 13.3 H (1.3-7.7) k/uL Lymphocytes # 0.4 L (1.0-4.8) k/uL Eosinophils # (0.04-0.35) X 10*3/uL APTT 18.6 L (22.0-30.0) sec Sodium 135 L (137-145) mmol/L Carbon Dioxide 16 L (22-30) mmol/L Anion Gap (4.00-12.00) mmol/L BUN/Creatinine Ratio (12.00-20.00) Ratio Glucose 199 H (74-99) mg/dL POC Glucose (mg/dL) (70-110) mg/dL 06/18/23 06/18/23 06/19/23 Range/Units 16:38 20:38 05:53 WBC 12.76 H (3.8-10.6) k/uL RBC 3.86 L (4.10-5.20) X 10*6/uL Hgb 11.6 L (12.0-15.0) d/dL Hct 35.6 L (37.2-46.3) % Neutrophils # 10.58 H (1.3-7.7) k/uL Lymphocytes # (1.0-4.8) k/uL Eosinophils # 0 L (0.04-0.35) X 10*3/uL APTT (22.0-30.0) sec Sodium (137-145) mmol/L Carbon Dioxide (22-30) mmol/L Anion Gap (4.00-12.00) mmol/L BUN/Creatinine Ratio (12.00-20.00) Ratio Glucose (74-99) mg/dL POC Glucose (mg/dL) 221 H 161 H (70-110) mg/dL 06/19/23 06/19/23 06/19/23 Range/Units 05:53 06:05 11:27 WBC (3.8-10.6) k/uL RBC (4.10-5.20) X 10*6/uL Hgb (12.0-15.0) d/dL Hct (37.2-46.3) % Neutrophils # (1.3-7.7) k/uL Lymphocytes # (1.0-4.8) k/uL Eosinophils # (0.04-0.35) X 10*3/uL APTT (22.0-30.0) sec Sodium (137-145) mmol/L Carbon Dioxide (22-30) mmol/L Anion Gap 13.10 H (4.00-12.00) mmol/L BUN/Creatinine Ratio 22.29 H (12.00-20.00) Ratio Glucose 131 H (74-99) mg/dL POC Glucose (mg/dL) 143 H 188 H (70-110) mg/dL
[2023-06-19] MEDS ORDERED: ACETAMINOPHEN TAB 325 MG TAB PO PRN (16:43)
[2023-06-19] MEDS: GABAPENTIN 400 MG CAP PO SCH ×2 (16:49→21:14)
[2023-06-19] MEDS: busPIRone HCl 5 MG TAB PO SCH ×2 (16:49→21:14)
[2023-06-19 16:52] LABS: Glucose,Whole Blood 211 mg/dL (70-110)
[2023-06-19 20:44] LABS: Glucose,Whole Blood 150 mg/dL (70-110)
[2023-06-19] MEDS: ROPIVACAINE 250 MG, HYDROMORPHONE (PF) 5 MG in SODIUM CHLORIDE 0.9% 200 ML EPIDURAL PRN (20:47)
[2023-06-19] MEDS: HEPARIN SODIUM,PORCINE 5,000 UNIT/ML 1 ML VIAL SQ SCH (21:14)
[2023-06-19] MEDS: FAMOTIDINE 20 MG TAB PO SCH (21:14)
[2023-06-20] MEDS: LACTATED RINGERS 1,000 ML IV SCH ×6 (00:24→23:12)
--- NOTE | 2023-06-20 00:26 | PN ---
PROGRESS NOTE DATE OF SERVICE: 06/19/2023 SUBJECTIVE: This is a 53-year-old woman who was admitted after low anterior resection, is being closely monitored. No chest pain, no palpitations, no fever. OBJECTIVE: VITAL SIGNS: Pulse is 84, blood pressure 127/64, and respirations 20. CHEST: Clear to auscultation. CARDIOVASCULAR: S1, S2. ABDOMEN: Soft status post surgery. LABORATORY DATA: Reviewed. ASSESSMENT: 1. Status post low anterior resection, bilateral ovarian cystectomy as well as partial omentectomy for diverticulitis and ovarian cyst. 2. Diabetes mellitus, type 2. 3. History of DVT. 4. Hypertension. 5. Hyperlipidemia. 6. History of CVA, TIA. 7. Multiple medical issues. RECOMMENDATIONS: Recommended to continue current management, continue symptomatic treatment, continue with anticoagulation. Symptomatic treatment, closely follow with surgery. Further recommendations to follow. MMODL / IJN: [id number] /
[2023-06-20] MEDS: HYDROmorphone 0.5 MG/0.5 ML SYRINGE IVP PRN ×2 (02:10→06:06)
--- NOTE | 2023-06-20 06:05 | P.PN ---
Progress Note - Text Progress Note Date: 06/20/23 POD 2 CATHETER DAY 3 epidural for LAR. Patient reports it is helping, still having abdominal pain without lower ext weakness, using PRN meds. reports she is not sleeping well. I offered to remove the catheter which is running at 7cc/hr but she says it is helping and would like to keep it. If it needs to be removed, hold heparin for 6hrs prior to removal of catheter and restart 2 hours after removal. Call anesthesia if there are any questions please. Tan Blood MD
[2023-06-20] MEDS: POTASSIUM CHLORIDE ER 20 MEQ TAB.ER PO SCH ×2 (06:06→16:20)
[2023-06-20 06:09] LABS: Glucose,Whole Blood 182 mg/dL (70-110)
[2023-06-20] MEDS: busPIRone HCl 5 MG TAB PO SCH ×3 (09:17→20:30)
[2023-06-20] MEDS: HEPARIN SODIUM,PORCINE 5,000 UNIT/ML 1 ML VIAL SQ SCH ×2 (09:17→20:29)
[2023-06-20] MEDS: ATORVASTATIN 80 MG TAB PO SCH (09:17)
[2023-06-20] MEDS: GABAPENTIN 400 MG CAP PO SCH ×3 (09:17→20:29)
[2023-06-20] MEDS: PIOGLITAZONE 15 MG TAB PO SCH (09:19)
[2023-06-20] MEDS: INSULIN DETEMIR (LEVEMIR) 100 UNIT/ML SYR SQ SCH (09:19)
[2023-06-20] MEDS: cloNIDine HCL 0.1 MG TAB PO SCH (10:17)
[2023-06-20] MEDS: hydroCHLOROthiazide 12.5 MG CAP PO SCH (10:17)
[2023-06-20] MEDS: lisinopriL 10 MG TAB PO SCH (10:17)
[2023-06-20 11:30] LABS: Glucose,Whole Blood 159 mg/dL (70-110)
[2023-06-20 11:54] LABS: Basophils % (A) 0 %; Eosinophils # (A) 0.1 k/uL (0-0.7); Eosinophils % (A) 1 %; HCT 31.4 % (34.0-46.0); HGB 10.5 gm/dL (11.4-16.0); Lymphocytes # (A) 1.3 k/uL (1.0-4.8); Lymphocytes % (A) 14 %; MCH 31.3 pg (25.0-35.0); MCHC 33.3 g/dL (31.0-37.0); Mean Platelet Volume 8.6; Monocytes # (A) 0.4 k/uL (0-1.0); Monocytes % (A) 4 %; Neutrophils # (A) 7.6 k/uL (1.3-7.7); Neutrophils % (A) 80 %; Platelet Count 184 k/uL (150-450); RBC 3.34 m/uL (3.80-5.40); RDW 13.7 % (11.5-15.5); WBC 9.4 k/uL (3.8-10.6)
[2023-06-20 12:07] LABS: African American GFR (CKD) >90 (>60 ml/min/1.73 sqM); Anion Gap 13 mmol/L; Blood Urea Nitrogen 16 mg/dL (7-17); Calcium 8.4 mg/dL (8.4-10.2); Carbon Dioxide 15 mmol/L (22-30); Chloride 103 mmol/L (98-107); Glucose 131 mg/dL (74-99); Non-African American GFR(CKD) >90 (>60 ml/min/1.73 sqM); Potassium 4.4 mmol/L (3.5-5.1); Sodium 131 mmol/L (137-145)
--- NOTE | 2023-06-20 13:49 | P.PN ---
Subjective Progress Note Date: 06/20/23 CHIEF COMPLAINT: Diverticulitis HISTORY OF PRESENT ILLNESS: Patient is postop day #2 status post lower anterior resection, bilateral ovarian cystectomy, partial omentectomy and takedown of splenic flexure. Patient reports that the drill is helping with pain control. Per nursing patient is still requiring IV Dilaudid for breakthrough pain. Nursing staff is notifying anesthesia regarding patient's pain requirements. Patient still has had no flatus or bowel movement. She denies any nausea or vomiting. She tolerated the clear liquids. Afebrile. Mildly Hypotensive. Good urine output. WBC is 9.4 Hgb 10.5 platelets 184 Na 131 creatinine 0.6 PHYSICAL EXAM: VITAL SIGNS: Reviewed. GENERAL: Well-developed in no acute distress. ABDOMEN: Soft. distended. Prevana wound VAC intact NEUROLOGIC: Alert and oriented. Cranial nerves II through XII grossly intact. ASSESSMENT: 1. Diverticulitis and bilateral ovarian cysts PLAN: -Advance diet to Full liquids -Continue IV fluids -Epidural and Lockwood catheter to be discontinued tomorrow -Encourage patient to sit at bedside chair with meals -Encouraged patient to use incentive spirometer -Encouraged patient to increase activity level -Consult PT -Okay to resume Eliquis after epidural discontinued -DVT prophylaxis subcu heparin Physician Supply Chain Vice President note has been reviewed by physician. Signing provider agrees with the documented findings, assessment, and plan of care. Objective - Vital Signs Vital signs: Vital Signs Temp 98.9 F 06/20/23 07:14 Pulse 92 06/20/23 07:14 Resp 17 06/20/23 07:14 BP 94/65 06/20/23 07:14 Pulse Ox 92 L 06/20/23 07:14 FiO2 Intake & Output 06/19/23 06/20/23 06/20/23 18:59 06:59 18:59 Output Total 1000 Balance -1000 Output: Urine 1000 Other: Voiding Method Indwelling Catheter Indwelling Catheter Indwelling Catheter - Labs CBC & Chem 7: 06/20/23 11:10 06/20/23 11:10 Labs: Abnormal Lab Results - Last 24 Hours (Table) 06/19/23 06/19/23 06/19/23 Range/Units 11:27 16:51 20:41 POC Glucose (mg/dL) 188 H 211 H 150 H (70-110) mg/dL 10/25/23 Range/Units 06:07 POC Glucose (mg/dL) 182 H (70-110) mg/dL
--- NOTE | 2023-06-20 14:07 | PN ---
PROGRESS NOTE DATE OF SERVICE: 06/20/2023 SUBJECTIVE: This 53-year-old woman was admitted after low anterior resection, still on pain pump. The patient is still on DVT prophylaxis. No chest pain, no palpitation. The patient was having related hypotension, the blood pressure was in 90 at this time. PAST MEDICAL HISTORY: Reviewed. REVIEW OF SYSTEMS: A 14-point review is negative except as mentioned earlier. CURRENT MEDICATIONS: Reviewed include Catapres and rest multiple antihypertensive medications. OBJECTIVE: VITAL SIGNS: Pulse is 92, blood pressure 94/62, respirations 17. CHEST: Few scattered rhonchi. CARDIOVASCULAR: S1, S2. ABDOMEN: Soft status post surgery. LABORATORY DATA: Reviewed. ASSESSMENT: 1. Status post low anterior resection, bilateral ovarian cystectomy as well as partial omentectomy for diverticulitis with ovarian cyst. 2. Related hypotension. 3. Diabetes mellitus, type 2. 4. History of DVT. 5. Hypertension history. 6. Hyperlipidemia. 7. History of CVA, TIA. 8. Multiple medical issues. RECOMMENDATIONS: I would recommend to continue the current management, continue symptomatic treatment, otherwise hold off the blood pressure. Monitor blood pressure closely. I would also recommend repeat labs. Continue with IV fluids, fluid bolus, portable chest x-ray. Continue to monitor and once the patient is off pain pump, resume the home anticoagulation. Discussed with staff. Further recommendations to follow. MMODL / IJN: [id number] /
--- NOTE | 2023-06-20 14:27 | XR ---
EXAMINATION TYPE: XR chest 1V portable DATE OF EXAM: 06/20/2023 COMPARISON: 08/04/2021 INDICATION: CHF TECHNIQUE: Single frontal view of the chest is obtained. FINDINGS: The heart size is normal. The pulmonary vasculature is normal. The lungs are clear. IMPRESSION: 1. No acute pulmonary process.
[2023-06-20] MEDS: KETOROLAC 15 MG/ML 1 ML VIAL IVP SCH ×3 (14:34→23:35)
[2023-06-20 17:18] LABS: Glucose,Whole Blood 182 mg/dL (70-110)
[2023-06-20] MEDS ORDERED: SODIUM CHLORIDE 0.9% 500 ML 250 ML IV ONE (20:01)
[2023-06-20] MEDS: FAMOTIDINE 20 MG TAB PO SCH (20:30)
[2023-06-20 20:32] LABS: Glucose,Whole Blood 138 mg/dL (70-110)
[2023-06-20] MEDS: SODIUM CHLORIDE 0.9% 1,000 ML IV SCH (22:00)
[2023-06-21] MEDS: KETOROLAC 15 MG/ML 1 ML VIAL IVP SCH ×3 (05:23→18:37)
[2023-06-21] MEDS: ROPIVACAINE 250 MG, HYDROMORPHONE (PF) 5 MG in SODIUM CHLORIDE 0.9% 200 ML EPIDURAL PRN (05:24)
[2023-06-21 06:02] LABS: Glucose,Whole Blood 140 mg/dL (70-110)
[2023-06-21] MEDS: POTASSIUM CHLORIDE ER 20 MEQ TAB.ER PO SCH ×2 (06:34→18:37)
--- NOTE | 2023-06-21 07:09 | P.PN ---
Progress Note - Text Progress Note Date: 06/21/23 Miss Meade is a 53-year-old pleasant female examined at her bedside. Status post Low anterior resection, Bilateral ovarian cystectomy, Partial omentectomy postop day #3. Her last dose of heparin was 06/20/2023 at 2029. Correlation profile normal limits, and platelet count 184. Epidural catheter discontinued in total. An catheter tip witnessed by RN. Sterile dressing applied over the epidural catheter site. No tenderness over the epidural catheter area, no fever, no weakness in her lower extremities. Examination is ambulating without any difficulty with support. Hemodynamically stable. Recommended to continue alternative pain medications as per primary care recommendations. Please contact anesthesia as needed.
[2023-06-21 08:47] LABS: African American GFR (CKD) >90 (>60 ml/min/1.73 sqM); Anion Gap 7 mmol/L; Blood Urea Nitrogen 17 mg/dL (7-17); Calcium 8.4 mg/dL (8.4-10.2); Carbon Dioxide 20 mmol/L (22-30); Chloride 106 mmol/L (98-107); Glucose 134 mg/dL (74-99); Non-African American GFR(CKD) >90 (>60 ml/min/1.73 sqM); Potassium 4.2 mmol/L (3.5-5.1); Sodium 133 mmol/L (137-145)
[2023-06-21] MEDS: GABAPENTIN 400 MG CAP PO SCH ×3 (08:57→21:33)
[2023-06-21] MEDS: ATORVASTATIN 80 MG TAB PO SCH (08:57)
[2023-06-21] MEDS: busPIRone HCl 5 MG TAB PO SCH ×3 (08:58→21:33)
[2023-06-21] MEDS: INSULIN DETEMIR (LEVEMIR) 100 UNIT/ML SYR SQ SCH (08:58)
[2023-06-21] MEDS: HYDROmorphone 0.5 MG/0.5 ML SYRINGE IVP PRN (08:58)
[2023-06-21] MEDS: HYDROcodone/APAP 5-325MG 1 EACH TAB PO PRN ×2 (10:16→14:07)
[2023-06-21] MEDS: HEPARIN SODIUM,PORCINE 5,000 UNIT/ML 1 ML VIAL SQ SCH (10:16)
[2023-06-21] MEDS: PIOGLITAZONE 15 MG TAB PO SCH (10:16)
[2023-06-21 11:46] LABS: Glucose,Whole Blood 173 mg/dL (70-110)
[2023-06-21] MEDS: HYDROmorphone 1 MG/ML 1 ML SYRINGE IVP PRN ×4 (11:59→21:34)
--- NOTE | 2023-06-21 13:19 | P.PN ---
Subjective Progress Note Date: 06/21/23 CHIEF COMPLAINT: Diverticulitis HISTORY OF PRESENT ILLNESS: Patient is postop day #3 status post lower anterior resection, bilateral ovarian cystectomy, partial omentectomy and takedown of splenic flexure. Epidural and [place] catheter removed this morning. Patient was up and ambulating in the hallway yesterday with physical therapy. She is having bowel movements and flatus. Patient requesting more to eat. She does complain of abdominal pain but will be started on [place] this AM. Afebrile. BP has improved after fluids and discontinuing Epidural. CBC pending. Sodium 133 and creatinine 0.64 PHYSICAL EXAM: VITAL SIGNS: Reviewed. GENERAL: Well-developed in no acute distress. ABDOMEN: Soft. less distended. Prevana wound VAC intact NEUROLOGIC: Alert and oriented. Cranial nerves II through XII grossly intact. ASSESSMENT: 1. Diverticulitis and bilateral ovarian cysts PLAN: -Advance diet to low fiber for dinner -Okay to resume Eliquis today -Advance diet to low fiber -Encouraged patient to ambulate -Encouraged patient to use incentive spirometer Physician [employer] Program Coordinator note has been reviewed by physician. Signing provider agrees with the documented findings, assessment, and plan of care. I have personally seen and examined the patient, reviewed the PUBLIC AFFAIRS MANAGER /PAs history, exam and MDM and agree with the assessment and plan as written. Based on total visit time, I have performed more than 50% of the visit. As above: Patient tolerating diet. She is having liquid stools. There is no nausea. She is mildly distended. Continue diet sparingly. Ambulate. Will follow. Objective - Vital Signs Vital signs: Vital Signs Temp 97.8 F 06/21/23 07:11 Pulse 79 06/21/23 07:11 Resp 19 06/21/23 07:11 BP 124/82 06/21/23 07:11 Pulse Ox 95 06/21/23 07:11 FiO2 Intake & Output 06/20/23 06/21/23 06/21/23 18:59 06:59 18:59 Output Total 750 Balance -750 Output: Urine 750 Other: Voiding Method Indwelling Catheter Indwelling Catheter # Bowel Movements 8 - Labs CBC & Chem 7: 06/20/23 11:10 06/21/23 07:51 Labs: Abnormal Lab Results - Last 24 Hours (Table) 06/20/23 06/20/2306/20/23 Range/Units 11:10 11:10 11:29 RBC 3.34 L (3.80-5.40) m/uL Hgb 10.5 L (11.4-16.0) gm/dL Hct 31.4 L (34.0-46.0) % Sodium 131 L (137-145) mmol/L Carbon Dioxide 15 L (22-30) mmol/L Glucose 131 H (74-99) mg/dL POC Glucose (mg/dL) 159 H (70-110) mg/dL 06/20/23 06/20/23 06/21/23 Range/Units 17:18 20:29 05:59 RBC (3.80-5.40) m/uL Hgb (11.4-16.0) gm/dL Hct (34.0-46.0) % Sodium (137-145) mmol/L Carbon Dioxide (22-30) mmol/L Glucose (74-99) mg/dL POC Glucose (mg/dL) 182 H 138 H 140 H (70-110) mg/dL 06/21/23 Range/Units 07:51 RBC (3.80-5.40) m/uL Hgb (11.4-16.0) gm/dL Hct (34.0-46.0) % Sodium 133 L (137-145) mmol/L Carbon Dioxide 20 L (22-30) mmol/L Glucose 134 H (74-99) mg/dL POC Glucose (mg/dL) (70-110) mg/dL
[2023-06-21 16:14] LABS: Glucose,Whole Blood 122 mg/dL (70-110)
[2023-06-21 16:21] LABS: Basophils # (A) 0.03 X 10*3/uL (0.00-0.10); Basophils % (A) 0.4 %; Eosinophils # (A) 0.14 X 10*3/uL (0.04-0.35); Eosinophils % (A) 1.8 %; HCT 34.3 % (37.2-46.3); HGB 11.2 d/dL (12.0-15.0); Lymphocytes # (A) 0.91 X 10*3/uL (0.90-5.00); MCH 30.1 pg (27.0-32.0); MCHC 32.7 d/dL (32.0-37.0); MCV 92.2 FL (80.0-97.0); Mean Platelet Volume 11.5 FL (9.5-12.2); Monocytes # (A) 0.46 X 10*3/uL (0.20-1.00); Monocytes % (A) 6.1 %; NRBC Per 100 WBC 0 X 10*3/uL (0.00-0.01); Neutrophils # (A) 5.99 X 10*3/uL (1.80-7.70); Platelet Count 136 X 10*3/uL (140-440); RBC 3.72 X 10*6/uL (4.10-5.20); RBC Morphology Normal (Normal); RDW 13.4 % (11.5-14.5); WBC 7.58 X 10*3/uL (4.50-10.00)
[2023-06-21] MEDS: SODIUM CHLORIDE 0.9% 1,000 ML IV SCH (17:19)
[2023-06-21 20:31] LABS: Glucose,Whole Blood 165 mg/dL (70-110)
--- NOTE | 2023-06-21 20:53 | PN ---
PROGRESS NOTE DATE OF SERVICE: 06/21/2023 SUBJECTIVE: This is a 53-year-old woman who was admitted after abdominal surgery, is being closely monitored. No chest pain, no palpitations, no fever. OBJECTIVE: VITAL SIGNS: Pulse is 79, blood pressure 120/80, respirations 19. CHEST: Clear to auscultation. CARDIOVASCULAR: S1, S2. ABDOMEN: Soft, status post surgery. LABORATORY DATA: Sodium 133, hemoglobin 10.5. ASSESSMENT: 1. Status post low anterior resection, bilateral ovarian cystectomy as well as partial omentectomy for diverticulitis with ovarian cyst. 2. Relative hypotension, improved. 3. Diabetes mellitus, type 2. 4. History of DVT. 5. Hypertension. 6. Hyperlipidemia. 7. History of CVA, TIA. 8. Multiple medical issues. RECOMMENDATIONS: Recommended to continue current medications and symptomatic treatment. Resume the home anticoagulants once okay with the surgery. Repeat labs ordered. Further recommendations to follow. Closely follow with surgery. MMODL / IJN: [id number] /
[2023-06-21] MEDS: APIXABAN 5 MG TAB PO SCH (21:33)
[2023-06-21] MEDS: FAMOTIDINE 20 MG TAB PO SCH (21:38)
[2023-06-22] MEDS: HYDROmorphone 1 MG/ML 1 ML SYRINGE IVP PRN ×3 (00:23→06:35)
[2023-06-22] MEDS: KETOROLAC 15 MG/ML 1 ML VIAL IVP SCH ×5 (00:23→23:32)
[2023-06-22] MEDS: LACTATED RINGERS 1,000 ML IV SCH (05:58)
[2023-06-22 06:24] LABS: Glucose,Whole Blood 147 mg/dL (70-110)
[2023-06-22] MEDS: POTASSIUM CHLORIDE ER 20 MEQ TAB.ER PO SCH ×2 (06:35→17:41)
[2023-06-22] MEDS: PIOGLITAZONE 15 MG TAB PO SCH (08:33)
[2023-06-22] MEDS: ATORVASTATIN 80 MG TAB PO SCH (08:33)
[2023-06-22] MEDS: GABAPENTIN 400 MG CAP PO SCH ×3 (08:33→21:58)
[2023-06-22] MEDS: busPIRone HCl 5 MG TAB PO SCH ×3 (08:34→21:58)
[2023-06-22] MEDS: INSULIN DETEMIR (LEVEMIR) 100 UNIT/ML SYR SQ SCH (08:34)
[2023-06-22] MEDS: APIXABAN 5 MG TAB PO SCH ×2 (08:34→21:58)
[2023-06-22] MEDS: HYDROmorphone 0.5 MG/0.5 ML SYRINGE IVP PRN ×5 (09:50→23:31)
[2023-06-22 11:22] LABS: Glucose,Whole Blood 155 mg/dL (70-110)
[2023-06-22 11:27] LABS: BUN/Creat Ratio 22.83 Ratio (12.00-20.00); Blood Urea Nitrogen 13.7 mg/dL (9.0-27.0); Calcium 8.7 mg/dL (8.7-10.3); Carbon Dioxide 29.2 mmol/L (21.6-31.8); Chloride 106 mmol/L (96-109); Glucose 123 mg/dL (70-110); Potassium 4.2 mmol/L (3.5-5.5); Sodium 137 mmol/L (135-145)
--- NOTE | 2023-06-22 11:43 | P.PN ---
Subjective Progress Note Date: 06/22/23 CHIEF COMPLAINT: Diverticulitis HISTORY OF PRESENT ILLNESS: Patient is postop day #4 status post lower anterior resection, bilateral ovarian cystectomy, partial omentectomy and takedown of splenic flexure. Patient is having flatus. She did have bowel movement yesterday. She is tolerating her low fiber diet. Her pain is controlled but she is still requiring the IV pain medication. She has been ambulating. Afebrile. Sodium 137 potassium 4.2 creatinine 0.6 PHYSICAL EXAM: VITAL SIGNS: Reviewed. GENERAL: Well-developed in no acute distress. ABDOMEN: Soft. mildly distended upper portion of abdomen. Prevana wound VAC intact NEUROLOGIC: Alert and oriented. Cranial nerves II through XII grossly intact. ASSESSMENT: 1. Diverticulitis and bilateral ovarian cysts PLAN: -Continue pain management -Continue low fiber diet -Encouraged patient to ambulate -Encouraged patient to use incentive spirometer -DVT prophylaxis Vee Physician Dean Of [employer] note has been reviewed by physician. Signing provider agrees with the documented findings, assessment, and plan of care. I have personally seen and examined the patient, reviewed the CHARGE AUDITOR /PAs history, exam and MDM and agree with the assessment and plan as written. Based on total visit time, I have performed more than 50% of the visit. As above: Patient says she feels the urge to belch. Denies nausea. No vomiting. She is eating solid foods although appetite slightly diminished. She is afebrile. Remains mildly distended. Mild tenderness. Dressing in place. Last bowel movement yesterday. Continue diet. Ambulate. Reevaluate tomorrow. Anticipate discharge on Sunday. Objective - Vital Signs Vital signs: Vital Signs Temp 98.0 F 06/22/23 07:03 Pulse 68 06/22/23 07:03 Resp 19 06/22/23 07:03 BP 161/94 06/22/23 07:03 Pulse Ox 95 06/22/23 07:03 FiO2 21 06/22/23 09:28 Intake & Output 06/21/23 06/22/23 06/22/23 18:59 06:59 18:59 Intake Total 1200 600 Balance 1200 600 Intake: Intake, IV Titration 600 600 Amount Sodium Chloride 0.9% 1, 600 600 000 ml @ 50 mls/hr IV . Q20H [facility] Rx#:[id number] Oral 600 Other: Voiding Method Toilet # Voids 6 2 # Bowel Movements 1 - Labs CBC & Chem 7: 06/22/23 06:29 06/22/23 06:29 Labs: Abnormal Lab Results - Last 24 Hours (Table) 06/21/23 06/21/23 06/21/23 Range/Units 07:08 11:43 16:12 RBC 3.72 L (4.10-5.20) X 10*6/uL Hgb 11.2 L (12.0-15.0) d/dL Hct 34.3 L (37.2-46.3) % Plt Count 136 L (140-440) X 10*3/uL POC Glucose (mg/dL) 173 H 122 H (70-110) mg/dL 06/21/23 06/22/23 Range/Units 20:30 06:22 RBC (4.10-5.20) X 10*6/uL Hgb (12.0-15.0) d/dL Hct (37.2-46.3) % Plt Count (140-440) X 10*3/uL POC Glucose (mg/dL) 165 H 147 H (70-110) mg/dL
[2023-06-22 11:55] LABS: Basophils # (A) 0.03 X 10*3/uL (0.00-0.10); Basophils % (A) 0.4 %; Eosinophils # (A) 0.25 X 10*3/uL (0.04-0.35); Eosinophils % (A) 3.6 %; HCT 33.8 % (37.2-46.3); Lymphocytes % (A) 14.4 %; MCH 29.9 pg (27.0-32.0); MCHC 32.5 d/dL (32.0-37.0); MCV 91.8 FL (80.0-97.0); Mean Platelet Volume 11.7 FL (9.5-12.2); Monocytes # (A) 0.57 X 10*3/uL (0.20-1.00); Monocytes % (A) 8.2 %; NRBC Per 100 WBC 0 X 10*3/uL (0.00-0.01); Neutrophils # (A) 5.03 X 10*3/uL (1.80-7.70); Neutrophils % (A) 72.4 %; Platelet Count 206 X 10*3/uL (140-440); RBC 3.68 X 10*6/uL (4.10-5.20); RBC Morphology Normal (Normal); RDW 13.4 % (11.5-14.5); WBC 6.95 X 10*3/uL (4.50-10.00)
--- NOTE | 2023-06-22 13:28 | P.PN ---
Subjective this is a pleasant 53 years old femalepresents with diverticulitis and bilateral ovarian cyst. She status post low anterior resection with bilateral ovarian cystectomy and partial omentectomy. He tolerates diet well, abdominal pain is minimal. She had little watery bowel movement yesterday. Eliquis was started hemodynamically stable and labs were reviewed Objective - Vital Signs Vital signs: Vital Signs Temp 98.0 F 06/22/23 07:03 Pulse 68 06/22/23 07:15 Resp 19 06/22/23 07:15 BP 161/94 06/22/23 07:03 Pulse Ox 95 06/22/23 07:03 FiO2 21 06/22/23 09:28 Intake & Output 06/21/23 06/22/23 06/22/23 18:59 06:59 18:59 Intake Total 1200 600 Balance 1200 600 Intake: Intake, IV Titration 600 600 Amount Sodium Chloride 0.9% 1, 600 600 000 ml @ 50 mls/hr IV . Q20H [facility] Rx#:[id number] Oral 600 Other: Voiding Method Toilet Toilet # Voids 6 2 # Bowel Movements 1 - Exam GENERAL: The patient is alert and oriented x3, not in any acute distress. Well developed, well nourished. HEENT: Pupils are round and equally reacting to light. EOMI. No scleral icterus. No conjunctival pallor. Normocephalic, atraumatic. No pharyngeal erythema. No thyromegaly. CARDIOVASCULAR: S1 and S2 present. No murmurs, rubs, or gallops. PULMONARY: Chest is clear to auscultation, no wheezing , no crackles. -ABDOMEN: Soft, nontender, nondistended, normoactive bowel sounds. No palpable organomegaly. surgical wound is healing MUSCULOSKELETAL: No joint swelling or deformity. EXTREMITIES: No cyanosis, clubbing, or pedal edema. NEUROLOGICAL: Gross neurological examination did not reveal any focal deficits. SKIN: No rashes. no petechiae. - Labs CBC & Chem 7: 06/22/23 06:29 06/22/23 06:29 Labs: Abnormal Lab Results - Last 24 Hours (Table) 06/21/23 06/21/23 06/21/23 Range/Units 07:08 16:12 20:30 RBC 3.72 L (4.10-5.20) X 10*6/uL Hgb 11.2 L (12.0-15.0) d/dL Hct 34.3 L (37.2-46.3) % Plt Count 136 L (140-440) X 10*3/uL Anion Gap (4.00-12.00) mmol/L BUN/Creatinine Ratio (12.00-20.00) Ratio Glucose (70-110) mg/dL POC Glucose (mg/dL) 122 H 165 H (70-110) mg/dL 06/22/23 06/22/23 06/22/23 Range/Units 06:22 06:29 06:29 RBC 3.68 L (4.10-5.20) X 10*6/uL Hgb 11.0 L (12.0-15.0) d/dL Hct 33.8 L (37.2-46.3) % Plt Count (140-440) X 10*3/uL Anion Gap 1.80 L (4.00-12.00) mmol/L BUN/Creatinine Ratio 22.83 H (12.00-20.00) Ratio Glucose 123 H (70-110) mg/dL POC Glucose (mg/dL) 147 H (70-110) mg/dL 06/22/23 Range/Units 11:21 RBC (4.10-5.20) X 10*6/uL Hgb (12.0-15.0) d/dL Hct (37.2-46.3) % Plt Count (140-440) X 10*3/uL Anion Gap (4.00-12.00) mmol/L BUN/Creatinine Ratio (12.00-20.00) Ratio Glucose (70-110) mg/dL POC Glucose (mg/dL) 155 H (70-110) mg/dL Assessment and Plan Assessment: acute diverticulitis status post low anterior resection of the colon Ovarian cyst status post bilateral ovarian cystectomy history of DVT Diabetes mellitus Hypertension Hyperlipidemia History of CVA Plan: continue with Eliquis Continue with gentle hydration Monitored glucose and continue with insulin and Actos Advance diet as per surgery team will follow the patient closely. Labs and medication were reviewed.. Continue same treatment. Continue with symptomatic treatment. Resume home medication. Monitor labs and vitals. DVT a nd GI prophylaxis. Further recommendations as per clinical course of the patient DVT prophylaxis: Eliquis GI Prophylaxis: Pepcid Prognosis is guarded
[2023-06-22 16:26] LABS: Glucose,Whole Blood 175 mg/dL (70-110)
[2023-06-22 20:58] LABS: Glucose,Whole Blood 214 mg/dL (70-110)
[2023-06-22] MEDS: FAMOTIDINE 20 MG TAB PO SCH (21:58)
[2023-06-22] MEDS: SODIUM CHLORIDE 0.9% 1,000 ML IV SCH (21:58)
[2023-06-23] MEDS: HYDROmorphone 0.5 MG/0.5 ML SYRINGE IVP PRN ×6 (03:34→22:45)
[2023-06-23] MEDS: POTASSIUM CHLORIDE ER 20 MEQ TAB.ER PO SCH ×2 (06:00→17:27)
[2023-06-23] MEDS: HYDROcodone/APAP 5-325MG 1 EACH TAB PO PRN ×3 (06:00→18:22)
[2023-06-23] MEDS: KETOROLAC 15 MG/ML 1 ML VIAL IVP SCH ×2 (06:01→11:36)
[2023-06-23 06:28] LABS: Glucose,Whole Blood 153 mg/dL (70-110)
[2023-06-23] MEDS: METOCLOPRAMIDE 5 MG/ML 2 ML VIAL IVP PRN ×2 (07:41→20:08)
[2023-06-23] MEDS: DAPAGLIFLOZIN PROPANEDIOL 5 MG TABLET PO SCH (09:04)
[2023-06-23] MEDS: ATORVASTATIN 80 MG TAB PO SCH (09:04)
[2023-06-23] MEDS: busPIRone HCl 5 MG TAB PO SCH ×3 (09:04→21:10)
[2023-06-23] MEDS: GABAPENTIN 400 MG CAP PO SCH ×3 (09:04→21:10)
[2023-06-23] MEDS: APIXABAN 5 MG TAB PO SCH (09:04)
[2023-06-23] MEDS: PIOGLITAZONE 15 MG TAB PO SCH (09:05)
[2023-06-23] MEDS: HYDROmorphone 1 MG/ML 1 ML SYRINGE IVP PRN (09:05)
[2023-06-23] MEDS: INSULIN DETEMIR (LEVEMIR) 100 UNIT/ML SYR SQ SCH (09:05)
[2023-06-23] MEDS: lisinopriL 10 MG TAB PO SCH (09:05)
[2023-06-23] MEDS: LACTATED RINGERS 1,000 ML IV SCH (10:47)
[2023-06-23] MEDS: SODIUM CHLORIDE 0.9% 1,000 ML IV SCH ×2 (10:47→23:30)
--- NOTE | 2023-06-23 10:48 | P.PN ---
Subjective Progress Note Date: 06/23/23 Principal diagnosis: patient is postop day 5 low anterior resection for diverticulitis. patient states she is having more discomfort today, notes some intermittent chills no definite fever. Patient notes passage some flatus, no BM past 24 hours Objective - Vital Signs Vital signs: Vital Signs Temp 99.9 F H 06/23/23 07:01 Pulse 85 06/23/23 07:01 Resp 19 06/23/23 07:01 BP 168/82 06/23/23 07:01 Pulse Ox 97 06/23/23 07:01 FiO2 21 06/22/23 09:28 Intake & Output 06/22/23 06/23/23 06/23/23 18:59 06:59 18:59 Other: Voiding Method Toilet Toilet # Voids 2 - Constitutional Constitutional Comment(s): patient resting quietly, appears slightly uncomfortable,states she has been ambulating - Respiratory Details: Non labored respirations, denies any shortness of breath or productive cough - Cardiovascular Details: regular rate and rhythm - Gastrointestinal Gastrointestinal Comment(s): abdomen is protuberant, soft with mild tenderness to deep palpation, no generalized peritoneal signs. Wound VAC in place with minimal output - Labs CBC & Chem 7: 06/22/23 06:29 06/22/23 06:29 Labs: Abnormal Lab Results - Last 24 Hours (Table) 06/22/23 06/22/23 06/22/23 Range/Units 06:29 06:29 11:21 RBC 3.68 L (4.10-5.20) X 10*6/uL Hgb 11.0 L (12.0-15.0) d/dL Hct 33.8 L (37.2-46.3) % Anion Gap 1.80 L (4.00-12.00) mmol/L BUN/Creatinine Ratio 22.83 H (12.00-20.00) Ratio Glucose 123 H (70-110) mg/dL POC Glucose (mg/dL) 155 H (70-110) mg/dL 06/22/23 06/22/23 06/23/23 Range/Units 16:24 20:56 06:27 RBC (4.10-5.20) X 10*6/uL Hgb (12.0-15.0) d/dL Hct (37.2-46.3) % Anion Gap (4.00-12.00) mmol/L BUN/Creatinine Ratio (12.00-20.00) Ratio Glucose (70-110) mg/dL POC Glucose (mg/dL) 175 H 214 H 153 H (70-110) mg/dL Assessment and Plan Assessment: 53-year-old female postop day 5 low anterior resection. Patient notes some increased discomfort and chills. We'll obtain CBC and lytes today, check abdominal x-ray Encouraged to continue ambulation/ deep breaths Patient not clinically ready for discharge today, further recomendations pending above results. Time with Patient: Less than 30
[2023-06-23] MEDS ORDERED: HYDROcodone/APAP 5-325MG 1 EACH TAB PO STA (11:13)
[2023-06-23 11:43] LABS: Glucose,Whole Blood 209 mg/dL (70-110)
[2023-06-23 12:13] LABS: Basophils % (A) 0 %; Eosinophils % (A) 0 %; HCT 37.9 % (34.0-46.0); HGB 12.9 gm/dL (11.4-16.0); Lymphocytes # (A) 0.5 k/uL (1.0-4.8); Lymphocytes % (A) 6 %; MCHC 34.1 g/dL (31.0-37.0); MCV 90.8 fL (80.0-100.0); Mean Platelet Volume 9.4; Monocytes # (A) 0.3 k/uL (0-1.0); Monocytes % (A) 3 %; Neutrophils # (A) 7.5 k/uL (1.3-7.7); Neutrophils % (A) 90 %; Platelet Count 221 k/uL (150-450); RBC 4.18 m/uL (3.80-5.40); RDW 13.7 % (11.5-15.5); WBC 8.4 k/uL (3.8-10.6)
--- NOTE | 2023-06-23 14:39 | XR ---
EXAMINATION TYPE: XR abdomen acute w cxr DATE OF EXAM: 06/23/2023 COMPARISON: 06/20/2023 HISTORY: Postop pain TECHNIQUE: Acute abdominal series performed with supine and upright views the abdomen supplemented wi th a frontal chest. FINDINGS: Surgical skin chantell over the pelvis. There is a large pneumoperitoneum with air under the left and right diaphragms. There is an air-fluid level within the right ascending colon. Some air-fl uid levels are within small bowel loops within the midabdomen. Couple of air-fluid levels are in the lateral left abdomen. Filter is present in the midline. Drainage catheter is in the pelvis. No mass effect is evident. Organomegaly is not evident. Psoas mar gins are poorly visualized. IMPRESSION: 1. Large pneumoperitoneum. Surgery was 06/18/2023, pneumoperitoneum is larger than expected this pos top day. Report was called to floor at the time of interpretation. The patient is scheduled for addit ional workup with CT.
--- NOTE | 2023-06-23 15:02 | P.EN ---
Pt cbc normal w wbc 8,4, AXR demonstrates significant amount of free air (increased compared to CXR 06/20). VS remain stable, positive for BM per RN, Will resume abx and order CT abdomen/pelvis Hold Eliquis
[2023-06-23] MEDS: IOPAMIDOL CONTRAST (ORAL USE) VIAL PO PRN ×2 (15:29→16:30)
[2023-06-23] MEDS: metroNIDAZOLE-NS PMX 500 MG in SALINE 1 100ML.BAG IVPB SCH ×2 (15:31→23:12)
[2023-06-23 16:42] LABS: Glucose,Whole Blood 222 mg/dL (70-110)
[2023-06-23 20:22] LABS: Glucose,Whole Blood 152 mg/dL (70-110)
[2023-06-23] MEDS ORDERED: LORazepam 2 MG/ML INJ IV STA (21:04)
[2023-06-23] MEDS: FAMOTIDINE 20 MG TAB PO SCH (21:10)
--- NOTE | 2023-06-23 21:14 | CT ---
EXAMINATION TYPE: CT abdomen pelvis wo/w con DATE OF EXAM: 06/23/2023 COMPARISON: INDICATION: Post surgical complications, wound vac over bowel. Abdominal pain, r/o free air. DLP: 1967.7 mGycm, Automated exposure control for dose reduction was used. CONTRAST: 100 cc mL of Isovue 300. Study performed without Oral Contrast TECHNIQUE: Axial images were obtained from above the diaphragm to the pubic rami in the axial plane a t 5 mm thick sections. Reconstructed images are reviewed on the computer in the coronal plane. FINDINGS: Limited CT sections are obtained the lung bases. Posterior lung infiltrates are present. Correlate f or atelectasis and pneumonia.. CT ABDOMEN: Free air is present within the abdomen. This is nondependent portions. Suspicious focus o f free air elsewhere suggest origin is not identified. Liver: Normal Spleen: Normal Pancreas: Normal Adrenal glands: The adrenal glands are normal. Gallbladder: Normal Kidneys: No masses are evident. No hydronephrosis is present. No cysts are present. No renal stone s are identified. Aorta: Vascular calcification is within the aorta. Inferior vena cava: Filter is within the inferior vena cava. CT PELVIS: Small amount of fluid is within the paracolic gutters. Surgical skin chantell are present a nterior pelvis. There is a small collection within the soft tissues of the superficial pelvis measuri ng 3.0 cm. Seroma considered. Loops of bowel within the abdomen and pelvis are normal. Oral contrast extends to the distal small b owel loops. No extravasation of contrast is identified. There are loops of bowel which are incomple tely distended or lack oral contrast limiting their evaluation. Appendix: Normal as visualized. Urinary bladder: Normal. Genitourinary structures: Uterus appears unremarkable. Adnexa appear normal. Osseous structures: No suspicious lytic or sclerotic lesions. IMPRESSION: 1. Free air is present within the abdomen. However, the source is not identified. No suspicious infl ammatory changes or extravasation of contrast to suggest possible source is identified. 2. Ascites 3. Subcutaneous seroma anterior pelvis
--- NOTE | 2023-06-23 22:02 | XR ---
EXAMINATION TYPE: XR chest 1V DATE OF EXAM: 06/23/2023 COMPARISON: 06/20/2023, abdomen 06/23/2023 INDICATION: Pneumoperitoneum, nasogastric tube placement. TECHNIQUE: Single frontal view of the chest is obtained. FINDINGS: The heart size is normal. The pulmonary vasculature is normal. No suspicious infiltrates are evident. There is a large right pneumoperitoneum small left pneumoperitoneum is present. This may be increasin g from comparison studies. Nasogastric tube is in place with tip in left upper quadrant of the abdomen. IMPRESSION: 1. Nasogastric tube tip left upper quadrant abdomen. 2. Pneumoperitoneum appears to be increasing over the interval.
[2023-06-23] MEDS: HEPARIN SODIUM,PORCINE 5,000 UNIT/ML 1 ML VIAL SQ SCH (23:12)
[2023-06-24] MEDS: HYDROmorphone 0.5 MG/0.5 ML SYRINGE IVP PRN ×5 (00:47→20:18)
[2023-06-24] MEDS ORDERED: Kcentra PER PHARMACY 1 EACH MISC MISCELLANE PRN (02:25)
[2023-06-24 02:48] LABS: Glucose,Whole Blood 127 mg/dL (70-110)
[2023-06-24] MEDS ORDERED: HUMAN PROTHROMBIN COMPLX 500 UNIT/16 ML VIAL IV ONE (03:00)
[2023-06-24] MEDS ORDERED: HUMAN PROTHROMBIN COMPLX IV ONE ×2 (03:00)
[2023-06-24 03:01] LABS: Prothrombin Time 11.4 sec (10.0-12.5)
[2023-06-24 03:15] LABS: HCT 38.3 % (34.0-46.0); HGB 12.8 gm/dL (11.4-16.0); MCH 30.3 pg (25.0-35.0); MCHC 33.5 g/dL (31.0-37.0); MCV 90.3 fL (80.0-100.0); Mean Platelet Volume 9.4; Platelet Count 246 k/uL (150-450); RBC 4.24 m/uL (3.80-5.40); RDW 13.8 % (11.5-15.5); WBC 4.5 k/uL (3.8-10.6)
[2023-06-24] MEDS ORDERED: KETAMINE HCL IN 0.9 % NACL 50 MG/5 ML SYRINGE ONE (04:20)
[2023-06-24] MEDS ORDERED: SUCCINYLCHOLINE CHLORIDE 200 MG/10 ML VIAL IV ONE (04:20)
[2023-06-24] MEDS ORDERED: fentaNYL (PF) 50 MCG/ML 2 ML AMP ONE (04:20)
[2023-06-24] MEDS ORDERED: IV FLUID CONTINUATION 1,000 ML IV ONE (04:20)
[2023-06-24] MEDS ORDERED: NOREPINEPHRINE 1 MG/ML 4 ML VIAL IV ONE (04:20)
[2023-06-24] MEDS ORDERED: MIDAZOLAM 2 MG/2 ML VIAL ONE (04:20)
[2023-06-24] MEDS ORDERED: PHENYLEPHRINE 10 MG/ML 5 ML VIAL ONE (04:20)
[2023-06-24] MEDS ORDERED: PROPOFOL 10 MG/ML 20 ML VIAL IV ONE (04:20)
[2023-06-24] MEDS ORDERED: ROCURONIUM 10 MG/ML (5 ML VIAL) IV ONE (04:20)
[2023-06-24] MEDS ORDERED: LACTATED RINGERS 1,000 ML IV ONE ×4 (04:48→07:56)
--- NOTE | 2023-06-24 05:28 | P.ANPRN ---
Procedure Note - Anesthesia - Invasive Line Right Central Line Date of Procedure: 06/24/23 Time of Procedure: 04:55 Location of Patient: OR Preparation: Sterile Prep, Sterile Dressing Central Line Location: Internal Jugular Ultrasound Used: Yes Purpose - Visualization and Identification of Vasculature: Yes Needle Guage: 18 Image Stored and Saved: Yes Narrative: Central line placement per sterile protocol utilized. R IJ TLC using Seldinger technique Left Arterial Line Time Out Performed: Yes Date of Procedure: 06/24/23 Time of Procedure: 05:10 Location of Patient: OR Preparation: Sterile Prep, Sterile Dressing Arterial Line Location: Radial Ultrasound Used: Yes Purpose - Visualization and Identification of Vasculature: Yes Needle Guage: 20 Image Stored and Saved: Yes Narrative: R radial arterial line placed under u/s using Seldinger technique
--- NOTE | 2023-06-24 06:27 | P.PN ---
Subjective this is a pleasant 53 years old femalepresents with diverticulitis and bilateral ovarian cyst. She status post low anterior resection with bilateral ovarian cystectomy and partial omentectomy. sHe tolerates diet well, abdominal pain is minimal. She had little watery bowel movement yesterday. Eliquis was started hemodynamically stable and labs were reviewed date of service for this note: 06/23/2023 Patient is seen and examined by me at bedside. Patient had increasing abdominal pain and distention. I discussed the case with the staff were discussed with surgery team as well who were following the case closely. Surgical team ordered abdominal x-ray which showed large pneumo peritoneal larger than expected for postop day. Then they ordered a CT of the abdomen and pelvis which showed free air present within the abdomen. With ascites. Patient was taken for emergent exploratory laparotomy and possible bowel resection and after the procedure patient was taken to the ICU. Patient was started on antibiotic with Flagyl and ceftriaxone as well as aggressive hydration with normal saline 100 mL per hour. Blood pressure improved and with systolic was 140-160. Patient was on room air saturating about 95%. She had low-grade temperature in the morning of 99.9. Showing WBCs of 8.4, hemoglobin 12.9. Platelet count 221. Creatinine is 0.6. Glucose controlled. Electrolytes within the normal. Active Medications Generic Name Dose Route Start Last Admin Trade Name Freq PRN Reason Stop Dose Admin Acetaminophen 650 mg 06/19/23 16:43 Acetaminophen Tab 325 Mg Tab PO Q4HR PRN Fever and/ or Pain Hydrocodone Bitart/Acetaminophen 1 each 06/21/23 09:53 06/23/23 18:22 Hydrocodone/Apap 5-325mg 1 Each Tab PO 1 each Q4HR PRN Administration Mild- Mod Pain (1-6) Atorvastatin Calcium 80 mg 06/19/23 09:00 06/23/23 09:04 Atorvastatin 80 Mg Tab PO 80 mg DAILY NICOLETTE Administration Benzocaine/Menthol 1 each 06/18/23 09:25 Benzocaine/Menthol Lozeng 1 Each Lozenge MUCOUS MEM Q1HR PRN Sore Throat Buspirone HCl 15 mg 06/19/23 16:00 06/23/23 21:10 Buspirone Hcl 5 Mg Tab PO Not Given TID NICOLETTE Dapagliflozin 5 mg 06/23/23 09:00 06/23/23 09:04 Dapagliflozin Propanediol 5 Mg Tablet PO 5 mg DAILY NICOLETTE Administration Diphenhydramine HCl 25 mg 06/18/23 14:34 Diphenhydramine 50 Mg/Ml 1 Ml Vial IVP Q6HR PRN Itching Famotidine 40 mg 06/18/23 21:00 06/23/23 21:10 Famotidine 20 Mg Tab PO Not Given HS NICOLETTE Gabapentin 800 mg 06/19/23 16:00 06/23/23 21:10 Gabapentin 400 Mg Cap PO Not Given TID NICOLETTE Heparin Sodium (Porcine) 5,000 unit 06/23/23 21:00 06/23/23 23:12 Heparin Sodium,Porcine 5,000 Unit/Ml 1 Ml Vial SQ 5,000 unit Q12HR NICOLETTE Administration Hydromorphone HCl 0.5 mg 06/23/23 23:50 06/24/23 03:02 Hydromorphone 0.5 Mg/0.5 Ml Syringe IVP 0.5 mg Q2HR PRN Administration Pain Lactated Ringer's 1,000 mls @ 20 mls/hr 06/18/23 06:12 06/23/23 10:47 Lactated Ringers IV Not Given .Q24H NICOLETTE Ceftriaxone Sodium 2 gm/ 50 mls @ 100 mls/hr 06/23/23 14:45 06/23/23 16:30 Sodium Chloride IVPB 100 mls/hr Q24HR NICOLETTE Administration Protocol Metronidazole 500 mg/ IV 100 mls @ 100 mls/hr 06/23/23 16:00 06/23/23 23:12 Solution IVPB 100 mls/hr Q8HR NICOLETTE Administration Protocol Sodium Chloride 1,000 mls @ 100 mls/hr 06/23/23 23:15 06/23/23 23:30 Saline 0.9% IV 100 mls/hr .Q10H NICOLETTE Administration Insulin Detemir 36 unit 06/19/23 09:00 06/23/23 09:05 Insulin Detemir (Levemir) 100 Unit/Ml Syr SQ 36 unit DAILY NICOLETTE Administration Lidocaine HCl 0.1 ml 06/18/23 06:12 Lidocaine 1% (10mg/Ml) For Iv Start INTRADERMA PER PROTOCOL PRN IV Start Lisinopril 30 mg 06/23/23 09:00 06/23/23 09:05 Lisinopril 10 Mg Tab PO 30 mg DAILY NICOLETTE Administration Metoclopramide HCl 10 mg 06/18/23 09:25 06/23/23 20:08 Metoclopramide 5 Mg/Ml 2 Ml Vial IVP 10 mg Q6HR PRN Administration Nausea and Vomiting Miscellaneous Information 1 each 06/24/23 02:25 Kcentra Per Pharmacy 1 Each Misc MISCELLANE DIRECTED PRN Bleeding Protocol Naloxone HCl 0.2 mg 06/18/23 14:34 Naloxone 0.4 Mg/Ml 1 Ml Vial IV Q2M PRN Opioid Reversal Ondansetron HCl 4 mg 06/18/23 09:25 Ondansetron 4 Mg/2 Ml Vial IVP Q8HR PRN Nausea And Vomiting Pioglitazone HCl 15 mg 06/19/23 09:00 06/23/23 09:05 Pioglitazone 15 Mg Tab PO 15 mg DAILY NICOLETTE Administration Potassium Chloride 20 meq 06/18/23 17:30 06/23/23 17:27 Potassium Chloride Er 20 Meq Tab.Er PO 20 meq BID-W/MEALS NICOLETTE Administration Trazodone HCl 150 mg 06/18/23 14:41 Trazodone Hcl 50 Mg Tab PO HS PRN Insomnia Objective - Vital Signs Vital signs: Vital Signs Temp 103.1 F H 06/24/23 04:00 Pulse 118 H 06/24/23 04:10 Resp 42 H 06/24/23 04:10 BP 116/84 06/24/23 04:20 Pulse Ox 93 L 06/24/23 04:10 FiO2 100 06/24/23 05:28 Intake & Output 06/23/23 06/23/23 06/24/23 06:59 18:59 06:59 Intake Total 2100 Output Total 250 Balance 1850 Intake: IV 1500 Intake, IV Titration 600 Amount Sodium Chloride 0.9% 1, 400 000 ml @ 100 mls/hr IV . Q10H NICOLETTE Rx#:[id number] Sodium Chloride 0.9% 1, 100 000 ml @ 50 mls/hr IV . Q20H NICOLETTE Rx#:[id number] metroNIDAZOLE-NS PMX 500 100 mg In Saline 1 100ml.bag @ 100 mls/hr IVPB Q8HR NICOLETTE Rx#:[id number] Output: Gastric Drainage 250 Other: Voiding Method Toilet Toilet Indwelling Catheter # Voids 2 4 1 # Bowel Movements 3 - Exam GENERAL: The patient is alert and oriented x3, not in any acute distress. Well developed, well nourished. HEENT: Pupils are round and equally reacting to light. EOMI. No scleral icterus. No conjunctival pallor. Normocephalic, atraumatic. No pharyngeal erythema. No thyromegaly. CARDIOVASCULAR: S1 and S2 present. No murmurs, rubs, or gallops. PULMONARY: Chest is clear to auscultation, no wheezing , no crackles. -ABDOMEN: Soft, periumbilical tenderness , no guarding or rebound tenderness, distended, normoactive bowel sounds. No palpable organomegaly. surgical wound is healing MUSCULOSKELETAL: No joint swelling or deformity. EXTREMITIES: No cyanosis, clubbing, or pedal edema. NEUROLOGICAL: Gross neurological examination did not reveal any focal deficits. SKIN: No rashes. no petechiae. - Labs CBC & Chem 7: 06/24/23 02:25 06/24/23 02:25 Labs: Abnormal Lab Results - Last 24 Hours (Table) 06/23/23 06/23/23 06/23/23 Range/Units 06:27 11:30 11:41 Lymphocytes # 0.5 L (1.0-4.8) k/uL Sodium (137-145) mmol/L Carbon Dioxide (22-30) mmol/L POC Glucose (mg/dL) 153 H 209 H (70-110) mg/dL 06/23/23 06/23/23 06/24/23 Range/Units 16:40 20:20 02:25 Lymphocytes # (1.0-4.8) k/uL Sodium 135 L (137-145) mmol/L Carbon Dioxide 18 L (22-30) mmol/L POC Glucose (mg/dL) 222 H 152 H (70-110) mg/dL 06/24/23 Range/Units 02:46 Lymphocytes # (1.0-4.8) k/uL Sodium (137-145) mmol/L Carbon Dioxide (22-30) mmol/L POC Glucose (mg/dL) 127 H (70-110) mg/dL Assessment and Plan Assessment: acute diverticulitis status post low anterior resection of the colon Ovarian cyst status post bilateral ovarian cystectomy Worsening pneumo-peritoneam requiring exploratory laparotomy and bowel resection history of DVT Diabetes mellitus Hypertension Hyperlipidemia History of CVA Plan: Continue with antibiotics continue with aggressive hydration Monitored glucose and continue with insulin and Actos Surgical management as per surgery team keep patient nothing by mouth now Critical care unit consult Labs and medication were reviewed.. Continue same treatment. Continue with sym ptomatic treatment. Resume home medication. Monitor labs and vitals. DVT and GI prophylaxis. Further recommendations as per clinical course of the patient DVT prophylaxis: Eliquis (put on hold until cleared by surgery team ) , SCD GI Prophylaxis:Changed to Protonix Prognosis is guarded Thank you for consulting us, we will follow-up with the pt closely
[2023-06-24 06:39] LABS: Band Neutrophils % 19 %; Lymphocytes # (M) 0.41 k/uL (1.0-4.8); Metamyelocytes # (M) 0.05 k/uL (0); Metamyelocytes % 1 %; Monocytes # (M) 0.09 k/uL (0-1.0); Neutrophils % (M) 70 %; Nucleated Red Blood Cells 0 /100 WBC (0-0); Total Cells Counted 200
[2023-06-24 06:41] LABS: Anisocytosis (M) Present
[2023-06-24 06:42] LABS: Polychromasia Present
[2023-06-24 08:44] LABS: Glucose,Whole Blood 133 mg/dL (70-110)
[2023-06-24] MEDS: HEPARIN SODIUM,PORCINE 5,000 UNIT/ML 1 ML VIAL SQ SCH ×2 (09:00→20:19)
[2023-06-24] MEDS ORDERED: propofoL 100 ML IV ONE (09:02)
[2023-06-24] MEDS ORDERED: IPRATROPIUM-ALBUTEROL 3 ML NEB INHALATION PRN (09:04)
--- NOTE | 2023-06-24 09:12 | P.CNPUL ---
History of Present Illness Consult date: 06/24/23 Chief complaint: Acute abdomen History of present illness: This is a 53-year-old female patient was undergone a low anterior resection for diverticulitis and the patient is postop day #6. The patient overnight was having abdominal discomfort along with some intermittent chills. No reported fever. She was not passing any flatus and she had no bowel movement for the past 24 hours. The abdomen was protruded and was also tender. The patient had a white cell count of 6.9 with a hemoglobin of 11 and a platelet count of 206. The patient was seen by the on-call surgeon and the patient had a CAT scan of the abdomen and pelvis that showed free air in the abdomen without any extravasation of contrast. There was ascites and subcutaneous seroma involving the anterior pelvis. Based on that, the patient was taken back to the operating room by Bishnu Hurst surgeon and the patient underwent a laparotomy, partial omentectomy and colostomy formation and closure of the rectal stump. The patient was told to have anastomotic leak. Patient arrived today intensive care following her surgery. She is currently on assist control mode at the rate of 14, tidal volume of 400, FiO2 is at 100% with a PEEP of 5. She arrived to the ICU 9 AM this morning. The patient is on no sedatives for now. She is on IV fluids with 75 mL of normal saline. She has a JG drain in the right lower quadrant Doppler being serosanguineous. She has a colostomy in her left lower quadrant. She is hemodynamically stable. No hypotension. Cardiac rhythm is sinus tachycardia with a rate of 122. She is currently on a combination of Rocephin and Flagyl. Labs from today shows a white cell count of 4.5 with a hemoglobin 12.8, BUN is still pending. Creatinine is pending. Serum bicarb is 18 and sodium levels of 135. Glucose at 133. Urine output to be monitored and the patient has approximately 100 mL in her [place] bag. Review of Systems ROS unobtainable: due to endotracheal tube Past Medical History Past Medical History: CVA/TIA, Diabetes Mellitus, Deep Vein Thrombosis (DVT), Hyperlipidemia, Hypertension Additional Past Medical History / Comment(s): expressive aphasia difficult to communicate, cva 2020 History of Any Multi-Drug Resistant Organisms: MRSA Date of last positivie culture/infection: 2016 MDRO Source:: ARM Past Surgical History: Back Surgery Additional Past Surgical History / Comment(s): IVC FILTER, 2014 colonoscopy, Past Anesthesia/Blood Transfusion Reactions: No Reported Reaction Past Psychological History: Depression Smoking Status: Current every day smoker, Vaper Past Alcohol Use History: Occasional Additional Past Alcohol Use History / Comment(s): smokes 1 ppd/vapes Past Drug Use History: Marijuana Additional Drug Use History / Comment(s): used marijuana on her birthday Medications and Allergies Home Medications Medication Instructions Recorded Confirmed Type Apixaban [Eliquis] 5 mg PO BID 08/04/21 06/18/23 History Famotidine 40 mg PO HS 08/04/21 06/18/23 History Gabapentin 800 mg PO TID 08/04/21 06/18/23 History Insulin Glargine,Hum.rec.anlog 36 unit SQ DAILY 08/04/21 06/18/23 History [Lantus Solostar Pen] Potassium Chloride ER [K-Dur 20] 20 meq PO BID-W/MEALS 08/04/21 06/18/23 History hydroCHLOROthiazide [Hydrodiuril] 12.5 mg PO DAILY 08/04/21 06/18/23 History Dapagliflozin Propanediol [Farxiga] 5 mg PO DAILY 03/14/23 06/18/23 History Pioglitazone [Actos] 15 mg PO DAILY 03/14/23 06/18/23 History Rosuvastatin Calcium [Crestor] 40 mg PO DAILY 03/14/23 06/18/23 History busPIRone HCL 15 mg PO TID 03/14/23 06/18/23 History cloNIDine HCL [Catapres] 0.05 mg PO BID 03/14/23 06/18/23 History lisinopriL [Zestril] 30 mg PO DAILY 03/14/23 06/18/23 History traZODone HCL 150 mg PO HS PRN 03/14/23 06/18/23 History HYDROcodone/APAP 5-325MG [[place] 1 tab PO Q6HR PRN 3 Days #12 tab 06/22/23 Rx 5-325] Allergies Allergy/AdvReac Type Severity Reaction Status Date / Time No Known Allergies Allergy Verified 06/18/23 06:27 Physical Exam Vitals: Vital Signs Temp Pulse Pulse Resp BP BP BP 06/24/23 08:44 06/24/23 05:28 06/24/23 04:20 116/84 06/24/23 04:10 118 H 42 H 112/79 06/24/23 04:00 103.1 F H 120 H 48 H 117/79 06/24/23 02:50 123 H 52 H 06/24/23 02:00 36 H 06/24/23 01:24 99.8 F H 118 H 136/88 06/23/23 20:00 99.1 F 85 16 122/82 06/23/23 14:43 99.5 F 113 H 15 113/78 Pulse Ox FiO2 06/24/23 08:44 100 06/24/23 05:28 100 06/24/23 04:20 06/24/23 04:10 93 L 06/24/23 04:00 93 L 50 06/24/23 02:50 91 L 06/24/23 02:00 06/24/23 01:24 90 L 06/23/23 20:00 93 L 06/23/23 14:43 92 L Intake and Output 06/23/23 06/24/23 06/24/23 22:59 06:59 14:59 Intake Total 3100 1300 Output Total 250 600 Balance 2850 700 Intake: IV 2500 1300 Intake, IV Titration 600 Amount Sodium Chloride 0.9% 1, 400 000 ml @ 100 mls/hr IV . Q10H NICOLETTE Rx#:[id number] Sodium Chloride 0.9% 1, 100 000 ml @ 50 mls/hr IV . Q20H NICOLETTE Rx#:[id number] metroNIDAZOLE-NS PMX 500 100 mg In Saline 1 100ml.bag @ 100 mls/hr IVPB Q8HR NICOLETTE Rx#:[id number] Output: Gastric Drainage 250 Urine 400 Estimated Blood Loss 200 Other: Voiding Method Toilet Indwelling Catheter # Voids 2 1 # Bowel Movements 3 Gen. appearance the patient is sedated and she is calm and comfortable not acute distress, currently intubated on a mechanical ventilator. She has an orotracheal tube in place and she also has an NG tube in place. Head exam was generally normal. There was no scleral icterus or corneal arcus. Mucous membranes were moist. Neck was supple and without jugular venous distension, thyromegaly, or carotid bruits. Carotids were easily palpable bilaterally. There was no adenopathy. And the patient has a right IJ triple-lumen catheter in place. Lungs are showing equal and symmetrical breath sounds bilaterally. Heart sounds are tachycardic and the patient remained sinus tachycardia. No significant murmurs appreciated. Abdomen is distended. The patient has a colostomy which is showing some minimal amount of liquidy material in the colostomy bag. The patient also has a right lower quadrant JG drain. Up with his bloody and serosanguineous. Bowel sounds are absent. Examination of the extremities revealed easily palpable radial, femoral and pedal pulses. There was no cyanosis, clubbing or edema. Examination of the skin revealed no evidence of significant rashes, suspicious appearing nevi or other concerning lesions. Neurologically the patient is quite sedated this point in time. Results - Laboratory Findings CBC and BMP: 06/24/23 02:25 06/24/23 02:25 PT/INR, D-dimer PT 11.4 sec (10.0-12.5) 06/24/23 02:25 INR 1.0 (<1.2) 06/24/23 02:25 Abnormal lab findings: Abnormal Labs 06/18/23 06/18/23 06/18/23 07:06 12:15 13:30 WBC RBC Hgb Hct Plt Count Neutrophils # Lymphocytes # Lymphocytes # (Manual) Eosinophils # Metamyelocytes # (Man) APTT 18.6 L Sodium Carbon Dioxide Anion Gap BUN/Creatinine Ratio Glucose POC Glucose (mg/dL) 147 H 204 H 06/18/23 06/18/23 06/18/23 16:25 16:25 16:38 WBC 14.4 H RBC Hgb Hct Plt Count Neutrophils # 13.3 H Lymphocytes # 0.4 L Lymphocytes # (Manual) Eosinophils # Metamyelocytes # (Man) APTT Sodium 135 L Carbon Dioxide 16 L Anion Gap BUN/Creatinine Ratio Glucose 199 H POC Glucose (mg/dL) 221 H 06/18/23 06/19/23 06/19/23 20:38 05:53 05:53 WBC 12.76 H RBC 3.86 L Hgb 11.6 L Hct 35.6 L Plt Count Neutrophils # 10.58 H Lymphocytes # Lymphocytes # (Manual) Eosinophils # 0 L Metamyelocytes # (Man) APTT Sodium Carbon Dioxide Anion Gap 13.10 H BUN/Creatinine Ratio 22.29 H Glucose 131 H POC Glucose (mg/dL) 161 H 06/19/23 06/19/23 06/19/23 06:05 11:27 16:51 WBC RBC Hgb Hct Plt Count Neutrophils # Lymphocytes # Lymphocytes # (Manual) Eosinophils # Metamyelocytes # (Man) APTT Sodium Carbon Dioxide Anion Gap BUN/Creatinine Ratio Glucose POC Glucose (mg/dL) 143 H 188 H 211 H 06/19/23 06/20/23 06/20/23 20:41 06:07 11:10 WBC RBC 3.34 L Hgb 10.5 L Hct 31.4 L Plt Count Neutrophils # Lymphocytes # Lymphocytes # (Manual) Eosinophils # Metamyelocytes # (Man) APTT Sodium Carbon Dioxide Anion Gap BUN/Creatinine Ratio Glucose POC Glucose (mg/dL) 150 H 182 H 06/20/23 06/20/23 06/20/23 11:10 11:29 17:18 WBC RBC Hgb Hct Plt Count Neutrophils # Lymphocytes # Lymphocytes # (Manual) Eosinophils # Metamyelocytes # (Man) APTT Sodium 131 L Carbon Dioxide 15 L Anion Gap BUN/Creatinine Ratio Glucose 131 H POC Glucose (mg/dL) 159 H 182 H 06/20/23 06/21/23 06/21/23 20:29 05:59 07:08 WBC RBC 3.72 L Hgb 11.2 L Hct 34.3 L Plt Count 136 L Neutrophils # Lymphocytes # Lymphocytes # (Manual) Eosinophils # Metamyelocytes # (Man) APTT Sodium Carbon Dioxide Anion Gap BUN/Creatinine Ratio Glucose POC Glucose (mg/dL) 138 H 140 H 06/21/23 06/21/23 06/21/23 07:51 11:43 16:12 WBC RBC Hgb Hct Plt Count Neutrophils # Lymphocytes # Lymphocytes # (Manual) Eosinophils # Metamyelocytes # (Man) APTT Sodium 133 L Carbon Dioxide 20 L Anion Gap BUN/Creatinine Ratio Glucose 134 H POC Glucose (mg/dL) 173 H 122 H 06/21/23 06/22/23 06/22/23 20:30 06:22 06:29 WBC RBC 3.68 L Hgb 11.0 L Hct 33.8 L Plt Count Neutrophils # Lymphocytes # Lymphocytes # (Manual) Eosinophils # Metamyelocytes # (Man) APTT Sodium Carbon Dioxide Anion Gap BUN/Creatinine Ratio Glucose POC Glucose (mg/dL) 165 H 147 H 06/22/23 06/22/23 06/22/23 06:29 11:21 16:24 WBC RBC Hgb Hct Plt Count Neutrophils # Lymphocytes # Lymphocytes # (Manual) Eosinophils # Metamyelocytes # (Man) APTT Sodium Carbon Dioxide Anion Gap 1.80 L BUN/Creatinine Ratio 22.83 H Glucose 123 H POC Glucose (mg/dL) 155 H 175 H 06/22/23 06/23/23 06/23/23 20:56 06:27 11:30 WBC RBC Hgb Hct Plt Count Neutrophils # Lymphocytes # 0.5 L Lymphocytes # (Manual) Eosinophils # Metamyelocytes # (Man) APTT Sodium Carbon Dioxide Anion Gap BUN/Creatinine Ratio Glucose POC Glucose (mg/dL) 214 H 153 H 06/23/23 06/23/23 06/23/23 11:41 16:40 20:20 WBC RBC Hgb Hct Plt Count Neutrophils # Lymphocytes # Lymphocytes # (Manual) Eosinophils # Metamyelocytes # (Man) APTT Sodium Carbon Dioxide Anion Gap BUN/Creatinine Ratio Glucose POC Glucose (mg/dL) 209 H 222 H 152 H 06/24/23 06/24/23 06/24/23 02:25 02:25 02:46 WBC RBC Hgb Hct Plt Count Neutrophils # Lymphocytes # Lymphocytes # (Manual) 0.41 L Eosinophils # Metamyelocytes # (Man) 0.05 H APTT Sodium 135 L Carbon Dioxide 18 L Anion Gap BUN/Creatinine Ratio Glucose POC Glucose (mg/dL) 127 H 06/24/23 08:43 WBC RBC Hgb Hct Plt Count Neutrophils # Lymphocytes # Lymphocytes # (Manual) Eosinophils # Metamyelocytes # (Man) APTT Sodium Carbon Dioxide Anion Gap BUN/Creatinine Ratio Glucose POC Glucose (mg/dL) 133 H - Diagnostic Findings Chest x-ray: image reviewed Assessment and Plan Plan: Acute abdomen/anastomotic leak following a low anterior resection. The patient was taken to the operating room and the patient underwent an extensive laparotomy, partial omentectomy, colostomy formation of this; and closure of the rectal stump. The patient is postop day #0, the patient has already received a total of 3 L of IV fluid in the operating room. We'll give her an additional 1 L. Low anterior resection or diverticulitis and the patient is postop day #6 Acute hypoxic respiratory failure, currently intubated on a mechanical ventilator, awaiting chest x-ray in the blood gas Sinus tachycardia, could be related to intra-abdominal sepsis/Sirs History of acute diverticulitis most likely resection Diabetes mellitus 2 Hypertension Hyperlipidemia History of CVA with expressive aphasia Previous history of DVT maintained on anticoagulation with Eliquis on outpatient basis. Currently off anticoagulants Plan Continue ventilator support Awaiting a blood given a chest x-ray Keep the patient sedated utilize propofol for sedation Start the patient on IV Zosyn IV fluids with normal saline at the rate of 150 mL an hour Obtain labs Obtain lactic acid level The patient has a right IJ triple-lumen catheter and the left wrist radial artery catheter Hold oral medications for now and this includes BuSpar, Lipitor, Farxiga and lisinopril and Actos and trazodone Use sliding scale insulin coverage May restart Levemir at the lower dose based on her blood sugar control Dilaudid for pain control Heparin subcu for DVT prophylaxis Keep the patient off Eliquis for now Monitor output from the JG drain General surgery on the case. We'll continue to follow. Time with Patient: Greater than 30
[2023-06-24] MEDS ORDERED: SODIUM CHLORIDE 0.9% 1,000 ML IV ONE ×2 (09:25→10:14)
[2023-06-24] MEDS: LACTATED RINGERS 1,000 ML IV SCH (09:27)
[2023-06-24] MEDS: SODIUM CHLORIDE 0.9% 1,000 ML IV SCH ×3 (09:28→22:39)
[2023-06-24 09:30] LABS: ABG Base Excess -6.3 mmol/L; ABG HCO3 22 mmol/L (21-25); ABG Oxygen Saturation 99.3 % (94-97); ABG PCO2 56 mmHg (35-45); ABG PO2 254 mmHg (83-108); ABG TCO2 23 mmol/L (19-24)
[2023-06-24] MEDS: PIPERACILLIN-TAZOBACTAM 3.375 GM in SODIUM CHLORIDE 0.9% 100 ML IVPB SCH ×2 (09:44→16:07)
[2023-06-24] MEDS: PANTOPRAZOLE 40 MG/10 ML VIAL IVP SCH ×2 (09:44→20:18)
--- NOTE | 2023-06-24 09:45 | P.OP ---
Date of Procedure: 06/24/23 Preoperative Diagnosis: Perforated viscus with peritonitis Postoperative Diagnosis: Feculent peritonitis secondary to anastomotic leak. Procedure(s) Performed: Reopening of laparotomy, lysis of adhesions. Takedown of colorectal anastomosis with conversion to Ly's procedure i.e. and colostomy with closed distal pouch Anesthesia: VANE Surgeon: Sanya Mooney Estimated Blood Loss (ml): 200 IV fluids (ml): 3,300 Urine output (ml): 400 Pathology: other Condition: other Disposition: ICU Indications for Procedure: Patient is a 53-year-old female who underwent a low anterior resection 5-1/2 days ago for diverticulitis. Patient was seen on rounds earlier today with significant abdominal pain and complaints of shaking chills. Acute abdominal series demonstrated free air not previously present on chest x-ray. A CAT scan was ordered which did demonstrate increased free air without evident source. Patient was begun on antibiotics and a NG tube placed however her clinical condition deteriorated with tachycardia, tachypnea and significant pain. Was recommended to the patient she undergo exploration to correct the suspected leak. Operative Findings: Feculent peritonitis with gross contamination secondary to anastomotic breakdown. Description of Procedure: She was brought to the operating room, a timeout was taken, preoperative antibiotics had already been initiated. A urinary catheter was placed. Patient was placed on the table in the supine position with low stirrups. General anesthesia and monitoring were provided per the anesthesia department. A preo perative central line and arterial line were placed per anesthesia. The abdomen was widely prepped and draped in a sterile fashion, iodine was used to prep the perineum. The patient's previous wound VAC was removed prior to prep, chantell were removed. The wound was opened up with the previous running PDS suture cut. Upon entry into the peritoneal cavity there is immediate release of feculent f luid, a culture was obtained. Gentle exploration of the peritoneal cavity ensued, the omentum was carefully freed from multiple attachments to the small bowel. Multiple filmy adhesions between loops of small bowel were carefully divided. There was a large amount of fibrinous exudative adhesions on the bowel surface and these were carefully removed. As the abdomen was explored the terminal ileum and cecum were identified, small bowel was run from the terminal ileum to the ligament of Treitz there were no evident injuries. A Bookwalter retractor was brought on the field and used for assistance and exposure. As the pelvis was inspected there could be seen to be feculent material being expressed from the anastomotic site. On gentle exploration it appeared as though at least half the anastomosis had broken down. It was decided to best handled the situation by converting to a Ly's type procedure. The anastomosis was completely , the distal and was closed with a running suture of 2-0 Vicryl, the ends of the stump were marked with 3-0 Prolene suture. The pelvis was vigorously irrigated with sterile saline until the fluid was clear. The descending colon was mobilized a bit additionally so as to be able to reach the abdominal wall as a colostomy. The omentum was quite bulky and a portion of this was removed with the use of the LigaSure and handed off the table as a specimen. The abdominal cavity was copiously irrigated with sterile saline until the affluent again was relatively clear. A spot was chosen for formation of the colostomy in the left lower quadrant. A circular incision was made, some of the subcutaneous tissue was excised with Bovie. A cruciate incision was made in the anterior rectus fascia, the rectus muscle itself was bluntly split apart and the posterior sheath opened to allow 2 fingers to easily pass. The end of the colon was then brought through the abdominal wall. Small bowel was then returned to the abdominal cavity and the omentum brought over. Fascia was reapproximated with a running PDS #1 suture from top towards bottom, and bottom towards top, tied in the middle. Subcutaneous tissue was irrigated out and the skin closed in interrupted fashion with surgical clips. Colostomy was matured with 3-0 Vicryl sutures and an ostomy appliance applied. The laparotomy incision was packed lightly with sterile gauze and a sterile dressing applied. 15 of the procedure all counts were correct. Was recommended that the patient be rested on the ventilator immediately postoperatively by anesthesia, patient was then transported to the ICU in serious condition but hemodynamically stable.
[2023-06-24 10:11] LABS: Basophils % (A) 0 %; Eosinophils % (A) 0 %; Lymphocytes # (A) 0.5 k/uL (1.0-4.8); Lymphocytes % (A) 8 %; MCH 30.4 pg (25.0-35.0); MCHC 32.6 g/dL (31.0-37.0); MCV 93.3 fL (80.0-100.0); Mean Platelet Volume 8.9; Monocytes # (A) 0.2 k/uL (0-1.0); Monocytes % (A) 4 %; Neutrophils # (A) 4.9 k/uL (1.3-7.7); Neutrophils % (A) 86 %; Platelet Count 259 k/uL (150-450); RBC 4.29 m/uL (3.80-5.40); RDW 13.7 % (11.5-15.5); WBC 5.7 k/uL (3.8-10.6)
[2023-06-24] MEDS ORDERED: DEXTROSE 50% SYRINGE 50 ML IVP PRN ×2 (10:15)
--- NOTE | 2023-06-24 10:17 | XR ---
EXAMINATION TYPE: XR chest 1V DATE OF EXAM: 06/24/2023 9:19 AM CLINICAL INDICATION:Female, 53 years old with history of s/p intubatioon; [facility] COMPARISON: Chest x-ray 06/23/2023 TECHNIQUE: XR chest 1V Frontal view of the chest. FINDINGS: Lines/Tubes/Devices: ET tube tip about 3 cm above the karen. Right IJ approach central venous line with its tip over the base of the right atrium. NG/OG tube traverses below the diaphragm on the left, with the sidehole wally r the level of the diaphragm and tip over the proximal stomach. EKG leads overlie the chest. Heart/mediastinum: Cardiomediastinal silhouette is unremarkable. Pulmonary vascularity: Not increased. Lungs/Pleura: Mild bibasilar stranding suggestive of atelectasis. Costophrenic angles are sharp. No f ocal consolidative process or pneumothorax seen. Musculoskeletal: No evidence of an acute bony abnormality. Other findings: None significant. The free air previously seen beneath the right greater than left he midiaphragm appears significantly diminished. IMPRESSION: 1. ET tube appears in good position. 2. Right IJ central venous line with tip over the base of the right atrium. Recommend retraction abo ut 9 cm to be over the SVC. 3. NG tube tip terminates over the proximal stomach. Recommend a few centimeters of additional advan cement. 4. Mild bibasilar subsegmental atelectasis.
[2023-06-24 10:22] LABS: ALT 38 U/L (4-34); AST 33 U/L (14-36); African American GFR (CKD) >90 (>60 ml/min/1.73 sqM); Albumin 2.2 g/dL (3.5-5.0); Alkaline Phosphatase 152 U/L (38-126); Anion Gap 11 mmol/L; Blood Urea Nitrogen 13 mg/dL (7-17); Calcium 7.4 mg/dL (8.4-10.2); Carbon Dioxide 19 mmol/L (22-30); Chloride 105 mmol/L (98-107); Glucose 145 mg/dL (74-99); Non-African American GFR(CKD) >90 (>60 ml/min/1.73 sqM); Potassium 4.9 mmol/L (3.5-5.1); Sodium 135 mmol/L (137-145); Total Bilirubin 2.2 mg/dL (0.2-1.3); Total Protein 4.6 g/dL (6.3-8.2)
[2023-06-24] MEDS: NOREPINEPHRINE 8 MG in SODIUM CHLORIDE 0.9% 250 ML IV SCH (10:29)
[2023-06-24 11:54] LABS: Glucose,Whole Blood 144 mg/dL (70-110)
[2023-06-24] MEDS: INSULIN ASPART (NovoLOG) 100 UNIT/ML VIAL SQ SCH ×2 (12:11→18:15)
[2023-06-24 12:12] LABS: Glucose,Whole Blood 136 mg/dL (70-110)
--- NOTE | 2023-06-24 13:12 | P.PN ---
Subjective Progress Note Date: 06/24/23 Patient on vent. Ostomy pink. No stool. [place] dark. Monitor fluids. On pressors. Adjust pain medications after discussion with her nurse. Dilaudid increased to 1 mg every 3 and scheduled IV ofirmev. Objective - Vital Signs Vital signs: Vital Signs Temp 98.8 F 06/24/23 12:00 Pulse 94 06/24/23 13:00 Resp 28 H 06/24/23 13:00 BP 120/89 06/24/23 10:00 Pulse Ox 95 06/24/23 13:00 FiO2 50 06/24/23 12:00 Intake & Output 06/23/23 06/24/23 06/24/23 18:59 06:59 18:59 Intake Total 3100 4073.443 Output Total 250 875 Balance 2850 3198.443 Intake: IV 2500 1300 Intake, IV Titration 600 2773.443 Amount Norepinephrine 8 mg In 0.228 Sodium Chloride 0.9% 250 ml @ 0.03 MCG/KG/MIN 4. 557 mls/hr IV .Q24H [facility] Rx#:[id number] Piperacillin-Tazobactam 3 100 .375 gm In Sodium Chloride 0.9% 100 ml @ 25 mls/hr IVPB Q8HR NICO[facility]E Rx# :[id number] Sodium Chloride 0.9% 1, 400 600 000 ml @ 150 mls/hr IV . Q6H40M NICO[facility]TTE Rx#:[id number] Sodium Chloride 0.9% 1, 100 000 ml @ 50 mls/hr IV . Q20H N[facility]LO[facility]TE Rx#:[id number] Sodium Chloride 0.9% 1, 1000 000 ml @ 999 mls/hr IV . Q1H1M ONE Rx#:[id number] Sodium Chloride 0.9% 1, 1000 000 ml @ 999 mls/hr IV . Q1H1M ONE Rx#:[id number] metroNIDAZOLE-NS PMX 500 100 mg In Saline 1 100ml.bag @ 100 mls/hr IVPB Q8HR N[facility]E Rx#:[id number] propofoL 1,000 mg In 73.215 Empty Bag 1 bag @ 15 MCG/ KG/MIN 7.065 mls/hr IV . [id number] NICO[facility]TTE Rx#:[id number] Output: Gastric Drainage 250 Urine 675 Estimated Blood Loss 200 Other: Voiding Method Toilet Indwelling Catheter Indwelling Catheter # Voids 4 1 # Bowel Movements 3 ABP, PAP, CO, CI - Last Documented Arterial Blood Pressure 102/59 - Labs CBC & Chem 7: 06/24/23 09:40 06/24/23 09:40 Labs: Abnormal Lab Results - Last 24 Hours (Table) 06/23/23 06/23/23 06/24/23 Range/Units 16:40 20:20 02:25 Lymphocytes # (1.0-4.8) k/uL Lymphocytes # (Manual) (1.0-4.8) k/uL Metamyelocytes # (Man) (0) k/uL ABG pH (7.35-7.45) ABG pCO2 (35-45) mmHg ABG pO2 (83-108) mmHg ABG O2 Saturation (94-97) % ABG Lactic Acid (0.5-1.6) mmol/L Sodium 135 L (137-145) mmol/L Carbon Dioxide 18 L (22-30) mmol/L Glucose (74-99) mg/dL POC Glucose (mg/dL) 222 H 152 H (70-110) mg/dL Calcium (8.4-10.2) mg/dL Total Bilirubin (0.2-1.3) mg/dL ALT (4-34) U/L Alkaline Phosphatase (38-126) U/L Total Protein (6.3-8.2) g/dL Albumin (3.5-5.0) g/dL 06/24/23 06/24/23 06/24/23 Range/Units 02:25 02:46 08:43 Lymphocytes # (1.0-4.8) k/uL Lymphocytes # (Manual) 0.41 L (1.0-4.8) k/uL Metamyelocytes # (Man) 0.05 H (0) k/uL ABG pH (7.35-7.45) ABG pCO2 (35-45) mmHg ABG pO2 (83-108) mmHg ABG O2 Saturation (94-97) % ABG Lactic Acid (0.5-1.6) mmol/L Sodium (137-145) mmol/L Carbon Dioxide (22-30) mmol/L Glucose (74-99) mg/dL POC Glucose (mg/dL) 127 H 133 H (70-110) mg/dL Calcium (8.4-10.2) mg/dL Total Bilirubin (0.2-1.3) mg/dL ALT (4-34) U/L Alkaline Phosphatase (38-126) U/L Total Protein (6.3-8.2) g/dL Albumin (3.5-5.0) g/dL 06/24/23 06/24/23 06/24/23 Range/Units 09:27 09:40 09:40 Lymphocytes # 0.5 L (1.0-4.8) k/uL Lymphocytes # (Manual) (1.0-4.8) k/uL Metamyelocytes # (Man) (0) k/uL ABG pH 7.20 L (7.35-7.45) ABG pCO2 56 H (35-45) mmHg ABG pO2 254 H (83-108) mmHg ABG O2 Saturation 99.3 H (94-97) % ABG Lactic Acid (0.5-1.6) mmol/L Sodium 135 L (137-145) mmol/L Carbon Dioxide 19 L (22-30) mmol/L Glucose 145 H (74-99) mg/dL POC Glucose (mg/dL) (70-110) mg/dL Calcium 7.4 L (8.4-10.2) mg/dL Total Bilirubin 2.2 H (0.2-1.3) mg/dL ALT 38 H (4-34) U/L Alkaline Phosphatase 152 H (38-126) U/L Total Protein 4.6 L (6.3-8.2) g/dL Albumin 2.2 L (3.5-5.0) g/dL 06/24/23 06/24/23 06/24/23 Range/Units 09:40 11:53 12:09 Lymphocytes # (1.0-4.8) k/uL Lymphocytes # (Manual) (1.0-4.8) k/uL Metamyelocytes # (Man) (0) k/uL ABG pH (7.35-7.45) ABG pCO2 (35-45) mmHg ABG pO2 (83-108) mmHg ABG O2 Saturation (94-97) % ABG Lactic Acid 2.7 H* (0.5-1.6) mmol/L Sodium (137-145) mmol/L Carbon Dioxide (22-30) mmol/L Glucose (74-99) mg/dL POC Glucose (mg/dL) 144 H 136 H (70-110) mg/dL Calcium (8.4-10.2) mg/dL Total Bilirubin (0.2-1.3) mg/dL ALT (4-34) U/L Alkaline Phosphatase (38-126) U/L Total Protein (6.3-8.2) g/dL Albumin (3.5-5.0) g/dL
[2023-06-24] MEDS: ACETAMINOPHEN IV (For NPO) 1,000 MG in EMPTY BAG 1 BAG IVPB SCH ×2 (13:52→20:18)
[2023-06-24] MEDS: metroNIDAZOLE-NS PMX 500 MG in SALINE 1 100ML.BAG IVPB SCH (14:47)
[2023-06-24] MEDS: HYDROmorphone 1 MG/ML 1 ML SYRINGE IVP PRN ×3 (14:49→22:57)
--- NOTE | 2023-06-24 14:54 | P.PN ---
Subjective this is a pleasant 53 years old femalepresents with diverticulitis and bilateral ovarian cyst. She status post low anterior resection with bilateral ovarian cystectomy and partial omentectomy. sHe tolerates diet well, abdominal pain is minimal. She had little watery bowel movement yesterday. Eliquis was started hemodynamically stable and labs were reviewed 06/23/2023 Patient is seen and examined by me at bedside. Patient had increasing abdominal pain and distention. I discussed the case with the staff were discussed with surgery team as well who were following the case closely. Surgical team ordered abdominal x-ray which showed large pneumo peritoneal larger than expected for postop day. Then they ordered a CT of the abdomen and pelvis which showed free air present within the abdomen. With ascites. Patient was taken for emergent exploratory laparotomy and possible bowel resection and after the procedure patient was taken to the ICU. Patient was started on antibiotic with Flagyl and ceftriaxone as well as aggressive hydration with normal saline 100 mL per hour. Blood pressure improved and with systolic was 140-160. Patient was on room air saturating about 95%. She had low-grade temperature in the morning of 99.9. Showing WBCs of 8.4, hemoglobin 12.9. Platelet count 221. Creatinine is 0.6. Glucose controlled. Electrolytes within the normal. 06/24/2023 patient yesterday she had worsening abdominal pain and distention. Surgery team will follow closely. Several images were requested showing free air, And patien t eventually was taken to the operation room As per surgery team patient underwent (Reopening of laparotomy, lysis of adhesions. Takedown of colorectal anastomosis with conversion to Ly's procedure i.e. and colostomy with closed distal pouch) and it was feculent material in the peritoneal cavity secondary to anastomotic breakdown. Patient was placed on antibiotics. Currently her antibiotics were changed to Zosyn to cover both gram-negative and in microvolts. Patient currently in the ICU sedated and intubated on mechanical ventilation. Her abdomen is less distended and left lower colostomy back in place. Her blood pressure was on the low side she received 2 doses of normal saline bolus of 1 L each. Also she was placed on small dose of pressors. Patient remains tachycardic and tachypneic and she had a fever of 103 this morning Lactic acid is elevated at 2.7, came back to normal at 1.6 CBC, BMP and liver enzymes were unremarkable. Except for mildly elevated ALT and low elbow made. Chest x-ray from this morning showing atelectasis. Case was discussed with pulmonary/critical care. Active Medications Generic Name Dose Route Start Last Admin Trade Name Freq PRN Reason Stop Dose Admin Albuterol/Ipratropium 3 ml 06/24/23 09:04 Ipratropium-Albuterol 3 Ml Neb INHALATION RT-Q2H PRN Shortness Of Breath Or Wheezing Albuterol/Ipratropium 3 ml 06/24/23 12:00 Ipratropium-Albuterol 3 Ml Neb INHALATION RT-Q4H NICOLE[facility]E Chlorhexidine Gluconate 15 ml 06/24/23 21:00 Chlorhexidine Gluconate 15 Ml Cup MUCOUS MEM BID NICOLETTE Dextrose/Water 25 ml 06/24/23 10:15 Dextrose 50% Syringe 50 Ml IVP PER PROTOCOL PRN Hypoglycemia Protocol Dextrose/Water 50 ml 06/24/23 10:15 Dextrose 50% Syringe 50 Ml IVP PER PROTOCOL PRN Hypoglycemia Protocol Diphenhydramine HCl 25 mg 06/18/23 14:34 Diphenhydramine 50 Mg/Ml 1 Ml Vial IVP Q6HR PRN Itching Heparin Sodium (Porcine) 5,000 unit 06/23/23 21:00 06/24/23 09:00 Heparin Sodium,Porcine 5,000 Unit/Ml 1 Ml Vial SQ Not Given Q12HR NICO[facility]E Hydromorphone HCl 0.5 mg 06/23/23 23:50 06/24/23 12:03 Hydromorphone 0.5 Mg/0.5 Ml Syringe IVP 0.5 mg Q2HR PRN Administration Pain Hydromorphone HCl 1 mg 06/24/23 13:12 06/24/23 14:49 Hydromorphone 1 Mg/Ml 1 Ml Syringe IVP 1 mg Q3HR PRN Administration Moderate to Severe Pain (4-10) Sodium Chloride 1,000 mls @ 150 mls/hr 06/23/23 23:15 06/24/23 09:28 Saline 0.9% IV 150 mls/hr .Q6H40M NICOLETTE Administration Propofol 1,000 mg/ IV Solution 100 mls @ 7.065 mls/hr 06/24/23 09:15 06/24/23 13:30 IV 60 mcg/kg/min .[id number] NICOLETTE 28.26 mls/hr Titration Protocol 15 MCG/KG/MIN Piperacillin Sod/Tazobactam 100 mls @ 25 mls/hr 06/24/23 09:15 06/24/23 09:44 Sod 3.375 gm/ Sodium Chloride IVPB 25 mls/hr Q8HR NICOLETTE Administration Protocol Norepinephrine Bitartrate 8 mg 258 mls @ 4.557 mls/hr 06/24/23 10:15 06/24/23 14:12 / Sodium Chloride IV 0.06 mcg/kg/min .Q24H N[facility]TTE 9.114 mls/hr Titration Protocol 0.03 MCG/KG/MIN Acetaminophen 1,000 mg/ IV 100 mls @ 400 mls/hr 06/24/23 14:00 06/24/23 13:52 Solution IVPB 06/25/23 08:14 400 mls/hr Q6H N[facility]E Administration Insulin Aspart 0 unit 06/24/23 12:00 06/24/23 12:11 Insulin Aspart (Novolog) 100 Unit/Ml Vial SQ Not Given Q6HR [facility] Protocol Metoclopramide HCl 10 mg 06/18/23 09:25 06/23/23 20:08 Metoclopramide 5 Mg/Ml 2 Ml Vial IVP 10 mg Q6HR PRN Administration Nausea and Vomiting Miscellaneous Information 1 each 06/24/23 02:25 Kcentra Per Pharmacy 1 Each Misc MISCELLANE DIRECTED PRN Bleeding Protocol Naloxone HCl 0.2 mg 06/18/23 14:34 Naloxone 0.4 Mg/Ml 1 Ml Vial IV Q2M PRN Opioid Reversal Ondansetron HCl 4 mg 06/18/23 09:25 Ondansetron 4 Mg/2 Ml Vial IVP Q8HR PRN Nausea And Vomiting Pantoprazole Sodium 40 mg 06/24/23 09:00 06/24/23 09:44 Pantoprazole 40 Mg/10 Ml Vial IVP 40 mg BID NICOLETTE Administration Objective - Vital Signs Vital signs: Vital Signs Temp 103.1 F H 06/24/23 04:00 Pulse 118 H 06/24/23 04:10 Resp 42 H 06/24/23 04:10 BP 116/84 06/24/23 04:20 Pulse Ox 93 L 06/24/23 04:10 FiO2 100 06/24/23 08:44 Intake & Output 06/23/23 06/24/23 06/24/23 18:59 06:59 18:59 Intake Total 3100 1300 Output Total 250 600 Balance 2850 700 Intake: IV 2500 1300 Intake, IV Titration 600 Amount Sodium Chloride 0.9% 1, 400 000 ml @ 100 mls/hr IV . Q10H [facility] Rx#:[id number] Sodium Chloride 0.9% 1, 100 000 ml @ 50 mls/hr IV . Q20H [facility]ICO[facility]E Rx#:[id number] metroNIDAZOLE-NS PMX 500 100 mg In Saline 1 100ml.bag @ 100 mls/hr IVPB Q8HR [facility]E Rx#:[id number] Output: Gastric Drainage 250 Urine 400 Estimated Blood Loss 200 Other: Voiding Method Toilet Indwelling Catheter # Voids 4 1 # Bowel Movements 3 - Exam -GENERAL: The patient is intubated and sedated HEENT: Pupils are round and equally reacting to light. EOMI. No scleral icterus. No conjunctival pallor. Normocephalic, atraumatic. No pharyngeal erythema. No thyromegaly. CARDIOVASCULAR: S1 and S2 present. No murmurs, rubs, or gallops. PULMONARY: Chest is clear to auscultation, no wheezing , no crackles. -ABDOMEN: Soft, periumbilical tenderness , no guarding or rebound tenderness, distended, normoactive bowel sounds. No palpable organomegaly. surgical wound is healing. Colostomy back in a Place MUSCULOSKELETAL: No joint swelling or deformity. EXTREMITIES: No cyanosis, clubbing, or pedal edema. NEUROLOGICAL: Gross neurological examination did not reveal any focal deficits. SKIN: No rashes. no petechiae. - Labs CBC & Chem 7: 06/24/23 09:40 06/24/23 09:40 Labs: Abnormal Lab Results - Last 24 Hours (Table) 06/23/23 06/23/23 06/23/23 Range/Units 11:30 11:41 16:40 Lymphocytes # 0.5 L (1.0-4.8) k/uL Lymphocytes # (Manual) (1.0-4.8) k/uL Metamyelocytes # (Man) (0) k/uL Sodium (137-145) mmol/L Carbon Dioxide (22-30) mmol/L POC Glucose (mg/dL) 209 H 222 H (70-110) mg/dL 06/23/23 06/24/23 06/24/23 Range/Units 20:20 02:25 02:25 Lymphocytes # (1.0-4.8) k/uL Lymphocytes # (Manual) 0.41 L (1.0-4.8) k/uL Metamyelocytes # (Man) 0.05 H (0) k/uL Sodium 135 L (137-145) mmol/L Carbon Dioxide 18 L (22-30) mmol/L POC Glucose (mg/dL) 152 H (70-110) mg/dL 06/24/23 06/24/23 Range/Units 02:46 08:43 Lymphocytes # (1.0-4.8) k/uL Lymphocytes # (Manual) (1.0-4.8) k/uL Metamyelocytes # (Man) (0) k/uL Sodium (137-145) mmol/L Carbon Dioxide (22-30) mmol/L POC Glucose (mg/dL) 127 H 133 H (70-110) mg/dL Assessment and Plan Assessment: Acute abdomen secondary to breakdown of anastomosis status post takedown of colorectal anastomosis with conversion to Ly's procedure (06/23) septic shock secondary to intra-abdominal infection Elevated lactic acid Acute hypoxic respiratory failure secondary to above requiring intubation and mechanical ventilation acute diverticulitis status post low anterior resection of the colon (06/18) Ovarian cyst status post bilateral ovarian cystectomy Worsening pneumo-peritoneam requiring exploratory laparotomy and bowel resection history of DVT Diabetes mellitus Hypertension Hyperlipidemia History of CVA Plan: Continue Zosyn. Continue with aggressive hydration Continue with pressors currently on Levophed Pulmonary/critical care team followed closely Surgery primary team also followed closely Monitored glucose and continue with insulin,Actos on hold Surgical management as per surgery team keep patient nothing by mouth now Critical care unit consult Labs and medication were reviewed.. Continue same treatment. Continue with symptomatic treatment. Resume home medication. Monitor labs and vitals. DVT and GI prophylaxis. Further recommendations as per clinical course of the patient DVT prophylaxis: Eliquis (put on hold until cleared by surgery team ) , SCD GI Prophylaxis:Changed to Protonix Prognosis is guarded Thank you for consulting us, we will follow-up with the pt closely
[2023-06-24] MEDS: IPRATROPIUM-ALBUTEROL 3 ML NEB INHALATION SCH ×4 (15:13→23:31)
[2023-06-24 18:12] LABS: Glucose,Whole Blood 153 mg/dL (70-110)
[2023-06-24] MEDS: CHLORHEXIDINE GLUCONATE 15 ML CUP MUCOUS MEM SCH (20:19)
[2023-06-24 23:36] LABS: Glucose,Whole Blood 167 mg/dL (70-110)
[2023-06-25] MEDS: PIPERACILLIN-TAZOBACTAM 3.375 GM in SODIUM CHLORIDE 0.9% 100 ML IVPB SCH ×3 (00:14→16:26)
[2023-06-25] MEDS: INSULIN ASPART (NovoLOG) 100 UNIT/ML VIAL SQ SCH ×4 (00:14→18:24)
[2023-06-25] MEDS: HYDROmorphone 0.5 MG/0.5 ML SYRINGE IVP PRN ×2 (00:37→10:02)
[2023-06-25] MEDS: ACETAMINOPHEN IV (For NPO) 1,000 MG in EMPTY BAG 1 BAG IVPB SCH ×2 (02:41→08:48)
[2023-06-25 03:23] LABS: HGB 11.5 gm/dL (11.4-16.0); MCH 30.7 pg (25.0-35.0); MCV 93.2 fL (80.0-100.0); Mean Platelet Volume 8.9; Platelet Count 259 k/uL (150-450); RBC 3.75 m/uL (3.80-5.40); WBC 9.4 k/uL (3.8-10.6)
[2023-06-25] MEDS: IPRATROPIUM-ALBUTEROL 3 ML NEB INHALATION SCH ×6 (03:48→23:56)
[2023-06-25] MEDS: HYDROmorphone 1 MG/ML 1 ML SYRINGE IVP PRN ×5 (03:49→20:21)
[2023-06-25 03:50] LABS: Band Neutrophils % 63 %; Lymphocytes # (M) 0.28 k/uL (1.0-4.8); Metamyelocytes # (M) 0.28 k/uL (0); Metamyelocytes % 3 %; Monocytes # (M) 0.56 k/uL (0-1.0); Neutrophils % (M) 25 %; Nucleated Red Blood Cells 0 /100 WBC (0-0); Total Cells Counted 200
[2023-06-25 03:51] LABS: Toxic Granulation Present; Toxic Vacuolation Present
[2023-06-25 04:11] LABS: African American GFR (CKD) >90 (>60 ml/min/1.73 sqM); Anion Gap 8 mmol/L; Blood Urea Nitrogen 17 mg/dL (7-17); Calcium 6.5 mg/dL (8.4-10.2); Carbon Dioxide 16 mmol/L (22-30); Chloride 111 mmol/L (98-107); Glucose 164 mg/dL (74-99); Magnesium 1.6 mg/dL (1.6-2.3); Non-African American GFR(CKD) >90 (>60 ml/min/1.73 sqM); Potassium 3.9 mmol/L (3.5-5.1); Sodium 135 mmol/L (137-145)
[2023-06-25] MEDS ORDERED: Magnesium Replacement Protocol 1 EACH MISC MISCELLANE PRN (04:55)
[2023-06-25] MEDS ORDERED: CALCIUM GLUCONATE IN NACL 2 GM in SALINE 1 100ML.BAG IVPB ONE (05:00)
[2023-06-25] MEDS: MAGNESIUM SULFATE-D5W PMX 1 GM in DEXTROSE/WATER 1 100ML.BAG IVPB SCH ×2 (05:05→06:17)
[2023-06-25 06:05] LABS: Glucose,Whole Blood 193 mg/dL (70-110)
[2023-06-25 06:10] LABS: ABG Base Excess -4.2 mmol/L; ABG HCO3 21 mmol/L (21-25); ABG Oxygen Saturation 98.2 % (94-97); ABG PCO2 35 mmHg (35-45); ABG PH 7.39 (7.35-7.45); ABG PO2 107 mmHg (83-108); ABG TCO2 22 mmol/L (19-24); Allen Test Performed? Yes
[2023-06-25] MEDS: SODIUM CHLORIDE 0.9% 1,000 ML IV SCH ×3 (06:18→21:48)
--- NOTE | 2023-06-25 07:45 | XR ---
EXAMINATION TYPE: XR chest 1V portable DATE OF EXAM: 06/25/2023 5:14 AM CLINICAL INDICATION:Female, 53 years old with history of Tube placement; COMPARISON: Chest radiographs from and 06/24/2023 TECHNIQUE: XR chest 1V portable Frontal view of the chest. FINDINGS: Lungs/Pleura: There is no evidence of pleural effusion, focal consolidation, or pneumothorax. Pulmonary vascularity: Unremarkable. Heart/mediastinum: Cardiomediastinal silhouette is unremarkable. Musculoskeletal: No acute osseous pathology. Other findings: None Lines/Tubes: Endotracheal tube with distal tip 3.5 cm above the karen. Nasogastric tube with side-port projecting over the distal esophagus. Right internal jugular central venous catheter with distal tip at the cavoatrial junction. IMPRESSION: 1. Nasogastric tube side-port near the gastroesophageal junction consider advancement of 8 cm for op timal placement. 2. Endotracheal tube and right central venous catheter with tips in appropriate position. 3. Low lung volumes with similar appearance to 06/24/2023.
[2023-06-25] MEDS ORDERED: Potassium Replacement Protocol 1 EACH MISC MISCELLANE PRN (08:10)
[2023-06-25] MEDS: CHLORHEXIDINE GLUCONATE 15 ML CUP MUCOUS MEM SCH ×2 (08:46→20:42)
[2023-06-25] MEDS: POTASSIUM CHLORIDE 10 MEQ in WATER FOR INJECTION 1 100ML.BAG IVPB SCH ×2 (08:49→10:17)
[2023-06-25] MEDS: HEPARIN SODIUM,PORCINE 5,000 UNIT/ML 1 ML VIAL SQ SCH ×2 (08:49→20:42)
[2023-06-25] MEDS: PANTOPRAZOLE 40 MG/10 ML VIAL IVP SCH ×2 (08:49→20:42)
--- NOTE | 2023-06-25 10:36 | P.PN ---
Subjective Progress Note Date: 06/25/23 CHIEF COMPLAINT: Diverticulitis HISTORY OF PRESENT ILLNESS: Patient is only in the ICU intubated and on m echanical ventilation. She had diverticulitis with a lower anterior resection on 06/18/23. She then developed an anastomotic leak and required to be taken back to the OR on 06/24/2023. Patient is postop day #1 status post takedown of colorectal anastomosis with conversion to Ly's procedure and colostomy with close distal pouch for feculent peritonitis secondary to anastomotic leak. Patient was just taken off the Levophed this morning. JG drain with 35 mL serosanguineous output. NG tube with 300 dark output. Mildly tachycardic. WBC 9.4 Hgb 11.5 sodium 135 potassium 3.9 creatinine 0.65 magnesium 1.6 calcium 6. PHYSICAL EXAM: VITAL SIGNS: Reviewed. GENERAL: Well-developed in no acute distress. ABDOMEN: Soft. Distended. Ostomy on the left. Stoma dusky. Serosanguineous output and colostomy bag. Incision open and packed with gauze. NEUROLOGIC: Alert and oriented. Cranial nerves II through XII grossly intact. ASSESSMENT: 1. Feculent peritonitis secondary to anastomotic leak status post reopening of laparotomy, lysis of adhesions. Takedown of colorectal anastomosis with conversion to Ly's procedure and colostomy 2. Diverticulitis and bilateral ovarian cysts 3. Electrolyte imbalance PLAN: -Continue ICU management -Continue supportive care -Electrolytes being corrected -Continue IV fluids -Continue antibiotics -DVT prophylaxis subcu heparin Physician [employer] Manager note has been reviewed by physician. Signing provider agrees with the documented findings, assessment, and plan of care. Objective - Vital Signs Vital signs: Vital Signs Temp 98.4 F 06/25/23 00:00 Pulse 103 H 06/25/23 08:50 Resp 24 06/25/23 08:50 BP 100/65 06/25/23 00:30 Pulse Ox 95 06/25/23 07:00 FiO2 50 06/25/23 08:27 Intake & Output 06/24/23 06/25/23 06/25/23 18:59 06:59 18:59 Intake Total 5181.090 2787.345 272.355 Output Total 1290 595 30 Balance 3891.090 2192.345 242.355 Weight 86 kg Intake: IV 1300 2150 250 ACETAMINOPHEN IV (For NPO 200 ) 1,000 mg In Empty Bag 1 bag @ 400 mls/hr IVPB Q6H [facility] Rx#:[id number] Calcium Gluconate in NaCl 100 2 gm In Saline 1 100ml. bag @ 100 mls/hr IVPB ONCE ONE Rx#:[id number] Magnesium Sulfate-D5w Pmx 100 100 1 gm In Dextrose/Water 1 100ml.bag @ 100 mls/hr IVPB Q1H [facility] Rx#: [id number] Piperacillin-Tazobactam 3 100 .375 gm In Sodium Chloride 0.9% 100 ml @ 25 mls/hr IVPB Q8HR [facility] Rx# :[id number] Sodium Chloride 0.9% 1, 1650 150 000 ml @ 150 mls/hr IV . Q6H40M [facility] Rx#:[id number] Intake, IV Titration 3881.090 637.345 22.355 Amount ACETAMINOPHEN IV (For NPO 100 ) 1,000 mg In Empty Bag 1 bag @ 400 mls/hr IVPB Q6H [facility] Rx#:[id number] Norepinephrine 8 mg In 57.875 117.166 22.355 Sodium Chloride 0.9% 250 ml @ 0.03 MCG/KG/MIN 4. 557 mls/hr IV .Q24H [facility] Rx#:[id number] Piperacillin-Tazobactam 3 200 .375 gm In Sodium Chloride 0.9% 100 ml @ 25 mls/hr IVPB Q8HR [facility] Rx# :[id number] Sodium Chloride 0.9% 1, 1350 150 000 ml @ 150 mls/hr IV . Q6H40M [facility] Rx#:[id number] Sodium Chloride 0.9% 1, 1000 000 ml @ 999 mls/hr IV . Q1H1M [facility] Rx#:[id number] Sodium Chloride 0.9% 1, 1000 000 ml @ 999 mls/hr IV . Q1H1M [facility] Rx#:[id number] propofoL 1,000 mg In 173.215 370.179 Empty Bag 1 bag @ 15 MCG/ KG/MIN 7.065 mls/hr IV . [id number] [facility] Rx#:[id number] Output: Gastric Drainage 150 Drainage 60 120 Left Lower Abdomen 0 Right Lower Abdomen 60 120 Urine 880 475 30 Estimated Blood Loss 200 Other: Voiding Method Indwelling Catheter Indwelling Catheter ABP, PAP, CO, CI - Last Documented Arterial Blood Pressure 117/58 - Labs CBC & Chem 7: 06/25/23 03:15 06/25/23 03:15 Labs: Abnormal Lab Results - Last 24 Hours (Table) 06/24/23 06/24/23 06/24/23 Range/Units 09:40 09:40 09:40 RBC (3.80-5.40) m/uL Neutrophils # (Manual) (1.3-7.7) k/uL Lymphocytes # 0.5 L (1.0-4.8) k/uL Lymphocytes # (Manual) (1.0-4.8) k/uL Metamyelocytes # (Man) (0) k/uL ABG O2 Saturation (94-97) % ABG Lactic Acid 2.7 H* (0.5-1.6) mmol/L Sodium 135 L (137-145) mmol/L Chloride (98-107) mmol/L Carbon Dioxide 19 L (22-30) mmol/L Glucose 145 H (74-99) mg/dL POC Glucose (mg/dL) (70-110) mg/dL Hemoglobin A1c (<=6.0) % Calcium 7.4 L (8.4-10.2) mg/dL Total Bilirubin 2.2 H (0.2-1.3) mg/dL ALT 38 H (4-34) U/L Alkaline Phosphatase 152 H (38-126) U/L Total Protein 4.6 L (6.3-8.2) g/dL Albumin 2.2 L (3.5-5.0) g/dL 06/24/23 06/24/23 06/24/23 Range/Units 11:53 12:09 18:11 RBC (3.80-5.40) m/uL Neutrophils # (Manual) (1.3-7.7) k/uL Lymphocytes # (1.0-4.8) k/uL Lymphocytes # (Manual) (1.0-4.8) k/uL Metamyelocytes # (Man) (0) k/uL ABG O2 Saturation (94-97) % ABG Lactic Acid (0.5-1.6) mmol/L Sodium (137-145) mmol/L Chloride (98-107) mmol/L Carbon Dioxide (22-30) mmol/L Glucose (74-99) mg/dL POC Glucose (mg/dL) 144 H 136 H 153 H (70-110) mg/dL Hemoglobin A1c (<=6.0) % Calcium (8.4-10.2) mg/dL Total Bilirubin (0.2-1.3) mg/dL ALT (4-34) U/L Alkaline Phosphatase (38-126) U/L Total Protein (6.3-8.2) g/dL Albumin (3.5-5.0) g/dL 06/24/23 06/25/23 06/25/23 Range/Units 23:34 03:15 03:15 RBC 3.75 L (3.80-5.40) m/uL Neutrophils # (Manual) 8.20 H (1.3-7.7) k/uL Lymphocytes # (1.0-4.8) k/uL Lymphocytes # (Manual) 0.28 L (1.0-4.8) k/uL Metamyelocytes # (Man) 0.28 H (0) k/uL ABG O2 Saturation (94-97) % ABG Lactic Acid (0.5-1.6) mmol/L Sodium (137-145) mmol/L Chloride (98-107) mmol/L Carbon Dioxide (22-30) mmol/L Glucose (74-99) mg/dL POC Glucose (mg/dL) 167 H (70-110) mg/dL Hemoglobin A1c 7.7 H (<=6.0) % Calcium (8.4-10.2) mg/dL Total Bilirubin (0.2-1.3) mg/dL ALT (4-34) U/L Alkaline Phosphatase (38-126) U/L Total Protein (6.3-8.2) g/dL Albumin (3.5-5.0) g/dL 06/25/23 06/25/23 06/25/23 Range/Units 03:15 06:03 06:04 RBC (3.80-5.40) m/uL Neutrophils # (Manual) (1.3-7.7) k/uL Lymphocytes # (1.0-4.8) k/uL Lymphocytes # (Manual) (1.0-4.8) k/uL Metamyelocytes # (Man) (0) k/uL ABG O2 Saturation 98.2 H (94-97) % ABG Lactic Acid (0.5-1.6) mmol/L Sodium 135 L (137-145) mmol/L Chloride 111 H (98-107) mmol/L Carbon Dioxide 16 L (22-30) mmol/L Glucose 164 H (74-99) mg/dL POC Glucose (mg/dL) 193 H (70-110) mg/dL Hemoglobin A1c (<=6.0) % Calcium 6.5 L (8.4-10.2) mg/dL Total Bilirubin (0.2-1.3) mg/dL ALT (4-34) U/L Alkaline Phosphatase (38-126) U/L Total Protein (6.3-8.2) g/dL Albumin (3.5-5.0) g/dL Microbiology - Last 24 Hours (Table) 06/24/23 08:30 Gram Stain - Preliminary Abdomen Wound Culture - Preliminary Gram Neg Bacilli Gram Neg Bacilli#2
[2023-06-25] MEDS: ATORVASTATIN 80 MG TAB PO SCH (10:52)
[2023-06-25] MEDS: busPIRone HCl 5 MG TAB PO SCH (10:52)
[2023-06-25] MEDS: POTASSIUM CHLORIDE ER 20 MEQ TAB.ER PO SCH (10:52)
[2023-06-25] MEDS: GABAPENTIN 400 MG CAP PO SCH (10:53)
[2023-06-25] MEDS: DAPAGLIFLOZIN PROPANEDIOL 5 MG TABLET PO SCH (10:53)
[2023-06-25] MEDS: PIOGLITAZONE 15 MG TAB PO SCH (10:53)
[2023-06-25] MEDS: lisinopriL 10 MG TAB PO SCH (10:53)
[2023-06-25] MEDS: INSULIN DETEMIR (LEVEMIR) 100 UNIT/ML SYR SQ SCH (10:53)
[2023-06-25 11:04] LABS: % Iron Saturation 4.79 (12.00-45.00)
[2023-06-25] MEDS: NOREPINEPHRINE 8 MG in SODIUM CHLORIDE 0.9% 250 ML IV SCH (11:22)
[2023-06-25 11:58] LABS: Glucose,Whole Blood 154 mg/dL (70-110)
--- NOTE | 2023-06-25 12:23 | P.CONS ---
History of Present Illness - Reason for Consult Consult date: 06/25/23 wound care - History of Present Illness This is a 53-year-old patient being seen in the ICU currently intubated and on mechanical ventilation for a nonhealing ulceration to the abdomen. Patient has history of diverticulitis with a lower anterior resection on 06/18/2023. She developed an anastomotic leak that required to be taken back to the OR on 06/24/2023. Patient currently has an open belly with Kerlix in place. Multiple areas are stapled to help with closure. Patient also has a colostomy that is proximal to the ulceration site. Patient previously had a negative pressure wound VAC in place however that was removed. Ulceration measures approximately 14 x 5 x 4 cm, with muscle exposure without necrosis. No tunneling or undermining noted. Granulation seen throughout the wound bed with minimal Slough and nonviable tissue present. Review of systems: Unable to obtain due to intubation Physical exam: General Appearance: Alert, cooperative, no distress, appears stated age. Skin: See HPI all other Skin color, texture, tugor normal, no rashes or lesions. Neurologic: Alert oriented x3 Assessment: 1. Nonhealing ulceration of abdomen with muscle exposure without necrosis 2. Diabetes with skin ulceration 3. CVA Plan: 1. Apply absorptive silver rope, moistened, Kerlix as needed for packing, cover with ABD secure with paper tape. Change Sunday. May considered a negative pressure wound VAC if chantell are removed. Thank you for the consultation any questions please contact the wound care center DNP note has been reviewed and discussed with Dr. Reddy and the impression an d plan of care has been directed as dictated. Past Medical History Past Medical History: CVA/TIA, Diabetes Mellitus, Deep Vein Thrombosis (DVT), Hyperlipidemia, Hypertension Additional Past Medical History / Comment(s): expressive aphasia difficult to communicate, cva 2019 History of Any Multi-Drug Resistant Organisms: MRSA Year Discovered:: 2017 MDRO Source:: ARM Past Surgical History: Back Surgery Additional Past Surgical History / Comment(s): IVC FILTER, 2013 colonoscopy, Past Anesthesia/Blood Transfusion Reactions: No Reported Reaction Past Psychological History: Depression Smoking Status: Current every day smoker, Vaper Past Alcohol Use History: Occasional Additional Past Alcohol Use History / Comment(s): smokes 1 ppd/vapes Past Drug Use History: Marijuana Additional Drug Use History / Comment(s): used marijuana on her birthday Medications and Allergies Home Medications Medication Instructions Recorded Confirmed Type Apixaban [Eliquis] 5 mg PO BID 08/04/21 06/18/23 History Famotidine 40 mg PO HS 08/04/21 06/18/23 History Gabapentin 800 mg PO TID 08/04/21 06/18/23 History Insulin Glargine,Hum.rec.anlog 36 unit SQ DAILY 08/04/21 06/18/23 History [Lantus Solostar Pen] Potassium Chloride ER [K-Dur 20] 20 meq PO BID-W/MEALS 08/04/21 06/18/23 History hydroCHLOROthiazide [Hydrodiuril] 12.5 mg PO DAILY 08/04/21 06/18/23 History Dapagliflozin Propanediol [Farxiga] 5 mg PO DAILY 03/14/23 06/18/23 History Pioglitazone [Actos] 15 mg PO DAILY 03/14/23 06/18/23 History Rosuvastatin Calcium [Crestor] 40 mg PO DAILY 03/14/23 06/18/23 History busPIRone HCL 15 mg PO TID 03/14/23 06/18/23 History cloNIDine HCL [Catapres] 0.05 mg PO BID 03/14/23 06/18/23 History lisinopriL [Zestril] 30 mg PO DAILY 03/14/23 06/18/23 History traZODone HCL 150 mg PO HS PRN 03/14/23 06/18/23 History HYDROcodone/APAP 5-325MG [Spencer 1 tab PO Q6HR PRN 3 Days #12 tab 06/22/23 Rx 5-325] Allergies Allergy/AdvReac Type Severity Reaction Status Date / Time No Known Allergies Allergy Verified 06/18/23 06:27 Physical Exam Vitals: Vital Signs Temp Pulse Resp BP Pulse Ox FiO2 06/25/23 11:50 97 27 H 06/25/23 11:42 98 27 H 06/25/23 11:38 50 06/25/23 11:15 99 24 97 06/25/23 11:00 98 24 96 06/25/23 10:45 97 24 97 06/25/23 10:30 99 24 96 06/25/23 10:15 99 24 95 06/25/23 10:00 98 24 98 06/25/23 09:45 101 H 24 96 06/25/23 09:30 103 H 31 H 95 06/25/23 09:15 102 H 24 96 06/25/23 09:00 102 H 24 96 06/25/23 08:50 103 H 24 06/25/23 08:45 98 24 96 06/25/23 08:38 103 H 24 06/25/23 08:30 98 24 96 06/25/23 08:27 50 06/25/23 08:15 101 H 24 96 06/25/23 08:00 99.9 F H 95 24 95 50 06/25/23 07:45 96 24 97 06/25/23 07:30 95 24 95 06/25/23 07:15 96 24 95 06/25/23 07:00 96 23 95 50 06/25/23 06:45 98 27 H 95 06/25/23 06:30 98 32 H 95 06/25/23 06:15 96 31 H 95 06/25/23 06:00 95 28 H 95 50 06/25/23 05:45 96 26 H 95 06/25/23 05:30 97 27 H 95 06/25/23 05:15 101 H 30 H 95 06/25/23 05:00 101 H 27 H 96 50 06/25/23 04:45 100 26 H 96 06/25/23 04:30 101 H 30 H 95 06/25/23 04:15 101 H 24 95 06/25/23 04:00 98 24 96 50 06/25/23 03:49 96 06/25/23 03:48 50 06/25/23 03:45 98 24 95 06/25/23 03:30 96 26 H 95 06/25/23 03:15 96 28 H 94 L 06/25/23 03:00 94 30 H 94 L 50 06/25/23 02:45 95 28 H 94 L 06/25/23 02:30 90 25 H 96 06/25/23 02:15 93 33 H 96 06/25/23 02:00 91 33 H 96 50 06/25/23 01:45 103 H 28 H 95 06/25/23 01:30 98 30 H 95 06/25/23 01:15 96 30 H 95 06/25/23 01:00 94 30 H 95 50 06/25/23 00:45 92 30 H 95 06/25/23 00:30 94 33 H 100/65 95 06/25/23 00:15 97 30 H 94 L 06/25/23 00:00 98.4 F 95 30 H 94 L 50 06/24/23 23:45 98 24 95 06/24/23 23:33 93 06/24/23 23:32 50 06/24/23 23:30 95 24 94 L 06/24/23 23:15 99 31 H 95 06/24/23 23:00 97 30 H 94 L 50 06/24/23 22:45 99 30 H 95 06/24/23 22:30 94 30 H 95 06/24/23 22:15 93 28 H 95 06/24/23 22:00 94 29 H 95 50 06/24/23 21:45 97 29 H 95 06/24/23 21:30 100 31 H 95 06/24/23 21:15 100 29 H 95 06/24/23 21:00 100 29 H 95 50 06/24/23 20:45 98 27 H 95 06/24/23 20:30 95 27 H 95 06/24/23 20:24 92 06/24/23 20:17 99 50 06/24/23 20:15 96 30 H 94 L 06/24/23 20:00 99.2 F 98 30 H 94 L 50 06/24/23 19:45 101 H 29 H 95 06/24/23 19:30 100 28 H 95 06/24/23 19:15 99 28 H 95 06/24/23 19:00 99 29 H 95 06/24/23 18:45 98 26 H 95 06/24/23 18:30 96 26 H 96 06/24/23 18:15 92 26 H 95 06/24/23 18:00 96 30 H 110/65 95 06/24/23 17:45 93 27 H 95 06/24/23 17:30 91 26 H 94 L 06/24/23 17:15 93 26 H 94 L 06/24/23 17:00 92 28 H 94 L 06/24/23 16:45 96 29 H 94 L 06/24/23 16:30 103 H 27 H 93 L 06/24/23 16:15 102 H 33 H 93 L 06/24/23 16:00 98.9 F 101 H 28 H 95 50 06/24/23 15:45 101 H 25 H 95 06/24/23 15:37 95 06/24/23 15:30 103 H 24 95 06/24/23 15:25 98 06/24/23 15:23 50 06/24/23 15:15 98 26 H 94 L 06/24/23 15:00 98 26 H 95 06/24/23 14:45 98 28 H 94 L 06/24/23 14:30 96 24 104/65 94 L 06/24/23 14:15 96 28 H 94 L 06/24/23 14:00 95 28 H 94 L 06/24/23 13:45 96 27 H 94 L 06/24/23 13:30 97 27 H 95 06/24/23 13:15 95 28 H 95 06/24/23 13:00 94 28 H 95 06/24/23 12:45 96 29 H 95 06/24/23 12:30 96 26 H 95 Intake and Output 06/24/23 06/25/23 06/25/23 22:59 06:59 14:59 Intake Total 7423.309 0733.345 972.633 Output Total 515 445 275 Balance 5314.183 1928.345 697.633 Intake: IV 550 1600 950 ACETAMINOPHEN IV (For NPO 100 100 ) 1,000 mg In Empty Bag 1 bag @ 400 mls/hr IVPB Q6H [facility] Rx#:[id number] Calcium Gluconate in NaCl 100 2 gm In Saline 1 100ml. bag @ 100 mls/hr IVPB ONCE [facility] Rx#:[id number] Magnesium Sulfate-D5w Pmx 100 100 1 gm In Dextrose/Water 1 100ml.bag @ 100 mls/hr IVPB Q1H [facility] Rx#: [id number] Piperacillin-Tazobactam 3 100 100 .375 gm In Sodium Chloride 0.9% 100 ml @ 25 mls/hr IVPB Q8HR [facility] Rx# :[id number] Sodium Chloride 0.9% 1, 450 1200 750 000 ml @ 150 mls/hr IV . Q6H40M [facility] Rx#:[id number] Intake, IV Titration 1074.498 387.345 22.633 Amount Norepinephrine 8 mg In 35.292 117.166 22.633 Sodium Chloride 0.9% 250 ml @ 0.03 MCG/KG/MIN 4. 557 mls/hr IV .Q24H [facility] Rx#:[id number] Piperacillin-Tazobactam 3 100 .375 gm In Sodium Chloride 0.9% 100 ml @ 25 mls/hr IVPB Q8HR [facility] Rx# :[id number] Sodium Chloride 0.9% 1, 750 000 ml @ 150 mls/hr IV . Q6H40M [facility] Rx#:[id number] propofoL 1,000 mg In 189.206 270.179 Empty Bag 1 bag @ 15 MCG/ KG/MIN 7.065 mls/hr IV . [id number] [facility] Rx#:[id number] Output: Gastric Drainage 150 Drainage 60 120 Left Lower Abdomen 0 Right Lower Abdomen 60 120 Urine 305 325 275 Other: Voiding Method Indwelling Catheter Indwelling Catheter Indwelling Catheter Weight 86 kg 86 kg ABP, PAP, CO, CI - Last 8 Hours Arterial Blood Pressure 107/54 Arterial Blood Pressure 105/56 Arterial Blood Pressure 110/58 Arterial Blood Pressure 105/54 Arterial Blood Pressure 100/53 Arterial Blood Pressure 109/57 Arterial Blood Pressure 101/52 Arterial Blood Pressure 105/54 Arterial Blood Pressure 99/51 Arterial Blood Pressure 113/58 Arterial Blood Pressure 101/56 Arterial Blood Pressure 103/53 Arterial Blood Pressure 110/57 Arterial Blood Pressure 116/59 Arterial Blood Pressure 123/64 Arterial Blood Pressure 117/58 Arterial Blood Pressure 115/58 Arterial Blood Pressure 117/58 Arterial Blood Pressure 121/60 Arterial Blood Pressure 121/61 Arterial Blood Pressure 124/61 Arterial Blood Pressure 110/56 Arterial Blood Pressure 98/51 Arterial Blood Pressure 103/53 Arterial Blood Pressure 106/55 Arterial Blood Pressure 100/52 Arterial Blood Pressure 101/54 Results CBC & Chem 7: 06/25/23 03:15 06/25/23 03:15 Labs: Abnormal Lab Results - Last 24 Hours (Table) 06/24/23 06/24/23 06/25/23 Range/Units 18:11 23:34 03:15 RBC (3.80-5.40) m/uL Neutrophils # (Manual) (1.3-7.7) k/uL Lymphocytes # (Manual) (1.0-4.8) k/uL Metamyelocytes # (Man) (0) k/uL ABG O2 Saturation (94-97) % Sodium (137-145) mmol/L Chloride (98-107) mmol/L Carbon Dioxide (22-30) mmol/L Glucose (74-99) mg/dL POC Glucose (mg/dL) 153 H 167 H (70-110) mg/dL Hemoglobin A1c 7.7 H (<=6.0) % Calcium (8.4-10.2) mg/dL Iron (50-170) UG/DL TIBC (228-460) UG/DL % Saturation (12.00-45.00) Transferrin (204.0-354.0) mg/dL Vitamin B12 (200.0-944.0) pg/mL 06/25/23 06/25/23 06/25/23 Range/Units 03:15 03:15 03:15 RBC 3.75 L (3.80-5.40) m/uL Neutrophils # (Manual) 8.20 H (1.3-7.7) k/uL Lymphocytes # (Manual) 0.28 L (1.0-4.8) k/uL Metamyelocytes # (Man) 0.28 H (0) k/uL ABG O2 Saturation (94-97) % Sodium 135 L (137-145) mmol/L Chloride 111 H (98-107) mmol/L Carbon Dioxide 16 L (22-30) mmol/L Glucose 164 H (74-99) mg/dL POC Glucose (mg/dL) (70-110) mg/dL Hemoglobin A1c (<=6.0) % Calcium 6.5 L (8.4-10.2) mg/dL Iron 8 L (50-170) UG/DL TIBC 167 L (228-460) UG/DL % Saturation 4.79 L (12.00-45.00) Transferrin 119.0 L (204.0-354.0) mg/dL Vitamin B12 1199.0 H (200.0-944.0) pg/mL 06/25/23 06/25/23 06/25/23 Range/Units 06:03 06:04 11:55 RBC (3.80-5.40) m/uL Neutrophils # (Manual) (1.3-7.7) k/uL Lymphocytes # (Manual) (1.0-4.8) k/uL Metamyelocytes # (Man) (0) k/uL ABG O2 Saturation 98.2 H (94-97) % Sodium (137-145) mmol/L Chloride (98-107) mmol/L Carbon Dioxide (22-30) mmol/L Glucose (74-99) mg/dL POC Glucose (mg/dL) 193 H 154 H (70-110) mg/dL Hemoglobin A1c (<=6.0) % Calcium (8.4-10.2) mg/dL Iron (50-170) UG/DL TIBC (228-460) UG/DL % Saturation (12.00-45.00) Transferrin (204.0-354.0) mg/dL Vitamin B12 (200.0-944.0) pg/mL Microbiology - Last 24 Hours (Table) 06/24/23 08:30 Gram Stain - Preliminary Abdomen Wound Culture - Preliminary Gram Neg Bacilli Gram Neg Bacilli#2 Assessment and Plan (1) Non-pressure chronic ulcer of skin of other sites with muscle involvement without evidence of necrosis Current Visit: Yes Status: Acute Code(s): L98.495 - NON-PRS CHR ULC SKIN/ OTH SITE WITH MSL INVL W/O EVD OF NECR SNOMED Code(s): 20192221 (2) Type 2 diabetes mellitus with other skin ulcer Current Visit: Yes Status: Acute Code(s): E11.622 - TYPE 2 DIABETES MELLITUS WITH OTHER SKIN ULCER; L98.499 - NON-PRESSURE CHRONIC ULCER OF SKIN OF SITES W UNSP SEVERITY SNOMED Code(s): 953781355 (3) CVA (cerebral vascular accident) Current Visit: Yes Status: Acute Code(s): I63.9 - CEREBRAL INFARCTION, UNSPECIFIED SNOMED Code(s): 813752765
--- NOTE | 2023-06-25 14:04 | P.PN ---
Subjective Progress Note Date: 06/25/23 Principal diagnosis: Acute abdomen with anastomotic leak following low anterior resection, status post reopening of laparotomy, lysis of adhesions takedown of colorectal anastomosis with conversion to Ly's procedure and colostomy with closed distal pouch This is a 53-year-old female patient was undergone a low anterior resection for diverticulitis and the patient is postop day #6. The patient overnight was having abdominal discomfort along with some intermittent chills. No reported fever. She was not passing any flatus and she had no bowel movement for the past 24 hours. The abdomen was protruded and was also tender. The patient had a white cell count of 6.9 with a hemoglobin of 11 and a platelet count of 206. The patient was seen by the on-call surgeon and the patient had a CAT scan of the abdomen and pelvis that showed free air in the abdomen without any extravasation of contrast. There was ascites and subcutaneous seroma involving the anterior pelvis. Based on that, the patient was taken back to the operating room by Bishnu Hurst surgeon and the patient underwent a laparotomy, partial omentectomy and colostomy formation and closure of the rectal stump. The patient was told to have anastomotic leak. Patient arrived today intensive care following her surgery. She is currently on assist control mode at the rate of 14, tidal volume of 400, FiO2 is at 100% with a PEEP of 5. She arrived to the ICU 9 AM this morning. The patient is on no sedatives for now. She is on IV fluids with 75 mL of normal saline. She has a JG drain in the right lower quadrant Doppler being serosanguineous. She has a colostomy in her left lower quadrant. She is hemodynamically stable. No hypotension. Cardiac rhythm is sinus tachycardia with a rate of 122. She is currently on a combination of Rocephin and Flagyl. Labs from today shows a white cell count of 4.5 with a hemoglobin 12.8, BUN is still pending. Creatinine is pending. Serum bicarb is 18 and sodium levels of 135. Glucose at 133. Urine output to be monitored and the patient has approximately 100 mL in her [place] bag. Reevaluated today on 06/25/23, patient remains in the ICU, intubated and mechanically ventilated. She is on assist control rate of 24 tidal volume 400 FiO2 50% and PEEP of 5 ABG showed a pO2 of 107 pCO2 35 pH of 7.39. Patient is on propofol at 60 mcg/kg/m she is also on 0.9 normal saline at 1 50 mL per hour she is now off norepinephrine. Maintained on Zosyn for her peritonitis. Patient does have a baseline of CVA and mental health issues I am a bit reluctant to proceed to weaning and extubating the patient today, she went off norepinephrine earlier today, I plan to continue to monitor the patient and we will address weaning and possibly extubation in the next 24 hours. Chest x-ray showed no evidence of active disease. WBC count is 9.4 hemoglobin 11.5 basic metabolic profile is normal renal profile is normal blood sugar is 193 per Objective - Vital Signs Vital signs: Vital Signs Temp 99.9 F H 06/25/23 12:00 Pulse 92 06/25/23 13:30 Resp 0 L 06/25/23 13:30 BP 100/65 06/25/23 13:30 Pulse Ox 97 06/25/23 13:30 FiO2 50 06/25/23 12:00 Intake & Output 06/24/23 06/25/23 06/25/23 18:59 06:59 18:59 Intake Total 5181.090 2787.345 1372.633 Output Total 1290 595 360 Balance 3891.090 2192.345 1012.633 Weight 86 kg 86 kg Intake: IV 1300 2150 1250 ACETAMINOPHEN IV (For NPO 200 ) 1,000 mg In Empty Bag 1 bag @ 400 mls/hr IVPB Q6H [facility] Rx#:[id number] Calcium Gluconate in NaCl 100 2 gm In Saline 1 100ml. bag @ 100 mls/hr IVPB ONCE [facility] Rx#:[id number] Magnesium Sulfate-D5w Pmx 100 100 1 gm In Dextrose/Water 1 100ml.bag @ 100 mls/hr IVPB Q1H [facility] Rx#: [id number] Piperacillin-Tazobactam 3 100 100 .375 gm In Sodium Chloride 0.9% 100 ml @ 25 mls/hr IVPB Q8HR [facility] Rx# :[id number] Sodium Chloride 0.9% 1, 1650 1050 000 ml @ 150 mls/hr IV . Q6H40M [facility] Rx#:[id number] Intake, IV Titration 3881.090 637.345 122.633 Amount ACETAMINOPHEN IV (For NPO 100 ) 1,000 mg In Empty Bag 1 bag @ 400 mls/hr IVPB Q6H [facility] Rx#:[id number] Norepinephrine 8 mg In 57.875 117.166 22.633 Sodium Chloride 0.9% 250 ml @ 0.03 MCG/KG/MIN 4. 557 mls/hr IV .Q24H [facility] Rx#:[id number] Piperacillin-Tazobactam 3 200 .375 gm In Sodium Chloride 0.9% 100 ml @ 25 mls/hr IVPB Q8HR [facility] Rx# :[id number] Sodium Chloride 0.9% 1, 1350 150 000 ml @ 150 mls/hr IV . Q6H40M [facility] Rx#:[id number] Sodium Chloride 0.9% 1, 1000 000 ml @ 999 mls/hr IV . Q1H1M [facility] Rx#:[id number] Sodium Chloride 0.9% 1, 1000 000 ml @ 999 mls/hr IV . Q1H1M [facility] Rx#:[id number] propofoL 1,000 mg In 173.215 370.179 100 Empty Bag 1 bag @ 15 MCG/ KG/MIN 7.065 mls/hr IV . [id number] [facility] Rx#:[id number] Output: Gastric Drainage 150 Drainage 60 120 Left Lower Abdomen 0 Right Lower Abdomen 60 120 Urine 880 475 360 Estimated Blood Loss 200 Other: Voiding Method Indwelling Catheter Indwelling Catheter Indwelling Catheter ABP, PAP, CO, CI - Last Documented Arterial Blood Pressure 92/46 - Exam Physical Exam: Revealed a 53-year-old female intubated and mechanically ventilated, sedated, on propofol. Off norepinephrine. Head: Atraumatic, normocephalic. HEENT:[Neck is supple.] [No neck masses.] [No thyromegaly.] [No JVD.] Chest: [Clear throughout, no crackles, no rhonchi, no wheezes.] Cardiac Exam: [Normal S1 and S2, no S3 gallop, no murmur.] Abdomen: [Soft, nontender, no megaly, no rebound, no guarding, colostomy seems to be functional. Negative bowel sounds. Extremities: [No clubbing, no edema, no cyanosis.] Neurological Exam: Could not assess patient is sedated. Psychiatric: Could not assess. - Labs CBC & Chem 7: 06/25/23 03:15 06/25/23 03:15 Labs: Abnormal Lab Results - Last 24 Hours (Table) 06/24/23 06/24/23 06/25/23 Range/Units 18:11 23:34 03:15 RBC (3.80-5.40) m/uL Neutrophils # (Manual) (1.3-7.7) k/uL Lymphocytes # (Manual) (1.0-4.8) k/uL Metamyelocytes # (Man) (0) k/uL ABG O2 Saturation (94-97) % Sodium (137-145) mmol/L Chloride (98-107) mmol/L Carbon Dioxide (22-30) mmol/L Glucose (74-99) mg/dL POC Glucose (mg/dL) 153 H 167 H (70-110) mg/dL Hemoglobin A1c 7.7 H (<=6.0) % Calcium (8.4-10.2) mg/dL Iron (50-170) UG/DL TIBC (228-460) UG/DL % Saturation (12.00-45.00) Transferrin (204.0-354.0) mg/dL Vitamin B12 (200.0-944.0) pg/mL 06/25/23 06/25/23 06/25/23 Range/Units 03:15 03:15 03:15 RBC 3.75 L (3.80-5.40) m/uL Neutrophils # (Manual) 8.20 H (1.3-7.7) k/uL Lymphocytes # (Manual) 0.28 L (1.0-4.8) k/uL Metamyelocytes # (Man) 0.28 H (0) k/uL ABG O2 Saturation (94-97) % Sodium 135 L (137-145) mmol/L Chloride 111 H (98-107) mmol/L Carbon Dioxide 16 L (22-30) mmol/L Glucose 164 H (74-99) mg/dL POC Glucose (mg/dL) (70-110) mg/dL Hemoglobin A1c (<=6.0) % Calcium 6.5 L (8.4-10.2) mg/dL Iron 8 L (50-170) UG/DL TIBC 167 L (228-460) UG/DL % Saturation 4.79 L (12.00-45.00) Transferrin 119.0 L (204.0-354.0) mg/dL Vitamin B12 1199.0 H (200.0-944.0) pg/mL 06/25/23 06/25/23 06/25/23 Range/Units 06:03 06:04 11:55 RBC (3.80-5.40) m/uL Neutrophils # (Manual) (1.3-7.7) k/uL Lymphocytes # (Manual) (1.0-4.8) k/uL Metamyelocytes # (Man) (0) k/uL ABG O2 Saturation 98.2 H (94-97) % Sodium (137-145) mmol/L Chloride (98-107) mmol/L Carbon Dioxide (22-30) mmol/L Glucose (74-99) mg/dL POC Glucose (mg/dL) 193 H 154 H (70-110) mg/dL Hemoglobin A1c (<=6.0) % Calcium (8.4-10.2) mg/dL Iron (50-170) UG/DL TIBC (228-460) UG/DL % Saturation (12.00-45.00) Transferrin (204.0-354.0) mg/dL Vitamin B12 (200.0-944.0) pg/mL Microbiology - Last 24 Hours (Table) 06/24/23 08:30 Gram Stain - Preliminary Abdomen Wound Culture - Preliminary Gram Neg Bacilli Gram Neg Bacilli#2 Assessment and Plan Assessment: Impression: Acute abdomen/anastomotic leak following a low anterior resection. The patient was taken to the operating room and the patient underwent an extensive laparotomy, partial omentectomy, colostomy formation of this; and closure of the rectal stump. The patient is postop day #1, Low anterior resection or diverticulitis and the patient is postop day #7 Acute hypoxic respiratory failure, currently intubated on a mechanical ventilator, awaiting chest x-ray in the blood gas Sinus tachycardia, could be related to intra-abdominal sepsis/Sirs History of acute diverticulitis most likely resection Diabetes mellitus 2 Hypertension Hyperlipidemia History of CVA with expressive aphasia Previous history of DVT maintained on anticoagulation with Eliquis on outpatient basis. Currently off anticoagulants Recommendation: Continue ventilatory support Continue antibiotics/Zosyn Continue propofol and patient is now off norepinephrine Consider TPN for this patient Continue to hold blood pressure medications for now. Monitor sugars and use sliding scale coverage Continue Dilaudid for pain control Continue subcu heparin for DVT prophylaxis Continue GI prophylaxis Monitor output from the JG drain Monitor colostomy output Not quite ready for weaning Patient is critically ill Critical care time is over 30min Time with Patient: Greater than 30
[2023-06-25 18:10] LABS: Glucose,Whole Blood 144 mg/dL (70-110)
[2023-06-25] MEDS ORDERED: ACETAMINOPHEN IV (For NPO) 1,000 MG in EMPTY BAG 1 BAG IVPB PRN (19:10)
--- NOTE | 2023-06-25 20:30 | P.PN ---
Subjective this is a pleasant 53 years old femalepresents with diverticulitis and bilateral ovarian cyst. She status post low anterior resection with bilateral ovarian cystectomy and partial omentectomy. sHe tolerates diet well, abdominal pain is minimal. She had little watery bowel movement yesterday. Eliquis was started hemodynamically stable and labs were reviewed 06/23/2023 Patient is seen and examined by me at bedside. Patient had increasing abdominal pain and distention. I discussed the case with the staff were discussed with surgery team as well who were following the case closely. Surgical team ordered abdominal x-ray which showed large pneumo peritoneal larger than expected for postop day. Then they ordered a CT of the abdomen and pelvis which showed free air present within the abdomen. With ascites. Patient was taken for emergent exploratory laparotomy and possible bowel resection and after the procedure patient was taken to the ICU. Patient was started on antibiotic with Flagyl and ceftriaxone as well as aggressive hydration with normal saline 100 mL per hour. Blood pressure improved and with systolic was 140-160. Patient was on room air saturating about 95%. She had low-grade temperature in the morning of 99.9. Showing WBCs of 8.4, hemoglobin 12.9. Platelet count 221. Creatinine is 0.6. Glucose controlled. Electrolytes within the normal. 06/24/2023 patient yesterday she had worsening abdominal pain and distention. Surgery team will follow closely. Several images were requested showing free air, And patien t eventually was taken to the operation room As per surgery team patient underwent (Reopening of laparotomy, lysis of adhesions. Takedown of colorectal anastomosis with conversion to Ly's procedure i.e. and colostomy with closed distal pouch) and it was feculent material in the peritoneal cavity secondary to anastomotic breakdown. Patient was placed on antibiotics. Currently her antibiotics were changed to Zosyn to cover both gram-negative and in microvolts. Patient currently in the ICU sedated and intubated on mechanical ventilation. Her abdomen is less distended and left lower colostomy back in place. Her blood pressure was on the low side she received 2 doses of normal saline bolus of 1 L each. Also she was placed on small dose of pressors. Patient remains tachycardic and tachypneic and she had a fever of 103 this morning Lactic acid is elevated at 2.7, came back to normal at 1.6 CBC, BMP and liver enzymes were unremarkable. Except for mildly elevated ALT and low elbow made. Chest x-ray from this morning showing atelectasis. Case was discussed with pulmonary/critical care. 06/25/2023 pt is sedated and intubated and pulmonary critical care team help with the vent managment , pt had uneventful night , she was on less levophed dose in the morning than yesterday, her pressor was discontinued later, her bp improved through the day and systolic bp 120-130 she has soft abdomen and colostomy back is empty only from little serosanguinous fluid wbc is 9.4, hb 11.5, platelet is normal her eliquis is still on hold , and dvt px is machical now till cleared by surge ry she is on zosyn, fever subsided , no leukocytosis , and pt is started on TPN at 30 ml per hr Active Medications Generic Name Dose Route Start Last Admin Trade Name Freq PRN Reason Stop Dose Admin Albuterol/Ipratropium 3 ml 06/24/23 09:04 Ipratropium-Albuterol 3 Ml Neb INHALATION RT-Q2H PRN Shortness Of Breath Or Wheezing Albuterol/Ipratropium 3 ml 06/24/23 12:00 06/25/23 20:13 Ipratropium-Albuterol 3 Ml Neb INHALATION 3 ml RT-Q4H [facility] Administration Chlorhexidine Gluconate 15 ml 06/24/23 21:00 06/25/23 08:46 Chlorhexidine Gluconate 15 Ml Cup MUCOUS MEM 15 ml BID [facility] Administration Dextrose/Water 25 ml 06/24/23 10:15 Dextrose 50% Syringe 50 Ml IVP PER PROTOCOL PRN Hypoglycemia Protocol Dextrose/Water 50 ml 06/24/23 10:15 Dextrose 50% Syringe 50 Ml IVP PER PROTOCOL PRN Hypoglycemia Protocol Diphenhydramine HCl 25 mg 06/18/23 14:34 Diphenhydramine 50 Mg/Ml 1 Ml Vial IVP Q6HR PRN Itching Heparin Sodium (Porcine) 5,000 unit 06/23/23 21:00 06/25/23 08:49 Heparin Sodium,Porcine 5,000 Unit/Ml 1 Ml Vial SQ 5,000 unit Q12HR [facility] Administration Hydromorphone HCl 2 mg 06/25/23 11:44 06/25/23 20:21 Hydromorphone 1 Mg/Ml 1 Ml Syringe IVP 2 mg Q2H PRN Administration Pain Sodium Chloride 1,000 mls @ 150 mls/hr 06/23/23 23:15 06/25/23 13:00 Saline 0.9% IV 150 mls/hr .Q6H40M [facility] Administration Propofol 1,000 mg/ IV Solution 100 mls @ 7.065 mls/hr 06/24/23 09:15 06/25/23 19:08 IV 60 mcg/kg/min .[id number] [facility] 28.26 mls/hr Administration Protocol 15 MCG/KG/MIN Piperacillin Sod/Tazobactam 100 mls @ 25 mls/hr 06/24/23 09:15 06/25/23 16:26 Sod 3.375 gm/ Sodium Chloride IVPB 25 mls/hr Q8HR [facility] Administration Protocol Norepinephrine Bitartrate 8 mg 258 mls @ 4.557 mls/hr 06/24/23 10:15 06/25/23 13:20 / Sodium Chloride IV 0.02 mcg/kg/min .Q24H [facility] 3.038 mls/hr Titration Protocol 0.03 MCG/KG/MIN Acetaminophen 1,000 mg/ IV 100 mls @ 400 mls/hr 06/25/23 19:10 Solution IVPB 06/26/23 18:01 Q6HR PRN Fever Parenteral Vitamin Supplement 1,011 mls @ 30 mls/hr 06/25/23 21:00 10 ml/ Zinc/Copper/Manganese/ IV 06/26/23 20:59 Selenium 1 ml/ Amino Ac/ .Q24H [facility] Electrol/Dextrose/Calcium Insulin Aspart 0 unit 06/24/23 12:00 06/25/23 18:24 Insulin Aspart (Novolog) 100 Unit/Ml Vial SQ Not Given Q6HR [facility] Protocol Metoclopramide HCl 10 mg 06/18/23 09:25 06/23/23 20:08 Metoclopramide 5 Mg/Ml 2 Ml Vial IVP 10 mg Q6HR PRN Administration Nausea and Vomiting Miscellaneous Information 1 each 06/25/23 04:55 Magnesium Replacement Protocol 1 Each Misc MISCELLANE DAILY PRN Per Protocol Protocol Miscellaneous Information 1 each 06/25/23 08:10 Potassium Replacement Protocol 1 Each Misc MISCELLANE DAILY PRN Per Protocol Protocol Naloxone HCl 0.2 mg 06/18/23 14:34 Naloxone 0.4 Mg/Ml 1 Ml Vial IV Q2M PRN Opioid Reversal Ondansetron HCl 4 mg 06/18/23 09:25 Ondansetron 4 Mg/2 Ml Vial IVP Q8HR PRN Nausea And Vomiting Pantoprazole Sodium 40 mg 06/24/23 09:00 06/25/23 08:49 Pantoprazole 40 Mg/10 Ml Vial IVP 40 mg BID [facility] Administration Objective - Vital Signs Vital signs: Vital Signs Temp 98.4 F 06/25/23 00:00 Pulse 96 06/25/23 07:00 Resp 23 06/25/23 07:00 BP 100/65 06/25/23 00:30 Pulse Ox 95 06/25/23 07:00 FiO2 50 06/25/23 07:00 Intake & Output 06/24/23 06/25/23 06/25/23 18:59 06:59 18:59 Intake Total 5181.090 2787.345 260.329 Output Total 1290 595 30 Balance 3891.090 2192.345 230.329 Weight 86 kg Intake: IV 1300 2150 250 ACETAMINOPHEN IV (For NPO 200 ) 1,000 mg In Empty Bag 1 bag @ 400 mls/hr IVPB Q6H [facility] Rx#:[id number] Calcium Gluconate in NaCl 100 2 gm In Saline 1 100ml. bag @ 100 mls/hr IVPB ONCE [facility] Rx#:[id number] Magnesium Sulfate-D5w Pmx 100 100 1 gm In Dextrose/Water 1 100ml.bag @ 100 mls/hr IVPB Q1H [facility] Rx#: [id number] Piperacillin-Tazobactam 3 100 .375 gm In Sodium Chloride 0.9% 100 ml @ 25 mls/hr IVPB Q8HR [facility] Rx# :[id number] Sodium Chloride 0.9% 1, 1650 150 000 ml @ 150 mls/hr IV . Q6H40M [facility] Rx#:[id number] Intake, IV Titration 3881.090 637.345 10.329 Amount ACETAMINOPHEN IV (For NPO 100 ) 1,000 mg In Empty Bag 1 bag @ 400 mls/hr IVPB Q6H [facility] Rx#:[id number] Norepinephrine 8 mg In 57.875 117.166 10.329 Sodium Chloride 0.9% 250 ml @ 0.03 MCG/KG/MIN 4. 557 mls/hr IV .Q24H [facility] Rx#:[id number] Piperacillin-Tazobactam 3 200 .375 gm In Sodium Chloride 0.9% 100 ml @ 25 mls/hr IVPB Q8HR [facility] Rx# :[id number] Sodium Chloride 0.9% 1, 1350 150 000 ml @ 150 mls/hr IV . Q6H40M [facility] Rx#:[id number] Sodium Chloride 0.9% 1, 1000 000 ml @ 999 mls/hr IV . Q1H1M [facility] Rx#:[id number] Sodium Chloride 0.9% 1, 1000 000 ml @ 999 mls/hr IV . Q1H1M [facility] Rx#:[id number] propofoL 1,000 mg In 173.215 370.179 Empty Bag 1 bag @ 15 MCG/ KG/MIN 7.065 mls/hr IV . [id number] [facility] Rx#:[id number] Output: Gastric Drainage 150 Drainage 60 120 Left Lower Abdomen 0 Right Lower Abdomen 60 120 Urine 880 475 30 Estimated Blood Loss 200 Other: Voiding Method Indwelling Catheter Indwelling Catheter ABP, PAP, CO, CI - Last Documented Arterial Blood Pressure 117/58 - Exam -GENERAL: The patient is intubated and sedated HEENT: Pupils are round and equally reacting to light. EOMI. No scleral icterus. No conjunctival pallor. Normocephalic, atraumatic. No pharyngeal erythema. No thyromegaly. CARDIOVASCULAR: S1 and S2 present. No murmurs, rubs, or gallops. PULMONARY: Chest is clear to auscultation, no wheezing , no crackles. -ABDOMEN: Soft, periumbilical tenderness , no guarding or rebound tenderness, distended, normoactive bowel sounds. No palpable organomegaly. surgical wound is healing. Colostomy back in a Place MUSCULOSKELETAL: No joint swelling or deformity. EXTREMITIES: No cyanosis, clubbing, or pedal edema. NEUROLOGICAL: Gross neurological examination did not reveal any focal deficits. SKIN: No rashes. no petechiae. - Labs CBC & Chem 7: 06/25/23 03:15 06/25/23 03:15 Labs: Abnormal Lab Results - Last 24 Hours (Table) 06/24/23 06/24/23 06/24/23 Range/Units 08:43 09:27 09:40 RBC (3.80-5.40) m/uL Neutrophils # (Manual) (1.3-7.7) k/uL Lymphocytes # 0.5 L (1.0-4.8) k/uL Lymphocytes # (Manual) (1.0-4.8) k/uL Metamyelocytes # (Man) (0) k/uL ABG pH 7.20 L (7.35-7.45) ABG pCO2 56 H (35-45) mmHg ABG pO2 254 H (83-108) mmHg ABG O2 Saturation 99.3 H (94-97) % ABG Lactic Acid (0.5-1.6) mmol/L Sodium (137-145) mmol/L Chloride (98-107) mmol/L Carbon Dioxide (22-30) mmol/L Glucose (74-99) mg/dL POC Glucose (mg/dL) 133 H (70-110) mg/dL Calcium (8.4-10.2) mg/dL Total Bilirubin (0.2-1.3) mg/dL ALT (4-34) U/L Alkaline Phosphatase (38-126) U/L Total Protein (6.3-8.2) g/dL Albumin (3.5-5.0) g/dL 06/24/23 06/24/23 06/24/23 Range/Units 09:40 09:40 11:53 RBC (3.80-5.40) m/uL Neutrophils # (Manual) (1.3-7.7) k/uL Lymphocytes # (1.0-4.8) k/uL Lymphocytes # (Manual) (1.0-4.8) k/uL Metamyelocytes # (Man) (0) k/uL ABG pH (7.35-7.45) ABG pCO2 (35-45) mmHg ABG pO2 (83-108) mmHg ABG O2 Saturation (94-97) % ABG Lactic Acid 2.7 H* (0.5-1.6) mmol/L Sodium 135 L (137-145) mmol/L Chloride (98-107) mmol/L Carbon Dioxide 19 L (22-30) mmol/L Glucose 145 H (74-99) mg/dL POC Glucose (mg/dL) 144 H (70-110) mg/dL Calcium 7.4 L (8.4-10.2) mg/dL Total Bilirubin 2.2 H (0.2-1.3) mg/dL ALT 38 H (4-34) U/L Alkaline Phosphatase 152 H (38-126) U/L Total Protein 4.6 L (6.3-8.2) g/dL Albumin 2.2 L (3.5-5.0) g/dL 06/24/23 06/24/23 06/24/23 Range/Units 12:09 18:11 23:34 RBC (3.80-5.40) m/uL Neutrophils # (Manual) (1.3-7.7) k/uL Lymphocytes # (1.0-4.8) k/uL Lymphocytes # (Manual) (1.0-4.8) k/uL Metamyelocytes # (Man) (0) k/uL ABG pH (7.35-7.45) ABG pCO2 (35-45) mmHg ABG pO2 (83-108) mmHg ABG O2 Saturation (94-97) % ABG Lactic Acid (0.5-1.6) mmol/L Sodium (137-145) mmol/L Chloride (98-107) mmol/L Carbon Dioxide (22-30) mmol/L Glucose (74-99) mg/dL POC Glucose (mg/dL) 136 H 153 H 167 H (70-110) mg/dL Calcium (8.4-10.2) mg/dL Total Bilirubin (0.2-1.3) mg/dL ALT (4-34) U/L Alkaline Phosphatase (38-126) U/L Total Protein (6.3-8.2) g/dL Albumin (3.5-5.0) g/dL 06/25/23 06/25/23 06/25/23 Range/Units 03:15 03:15 06:03 RBC 3.75 L (3.80-5.40) m/uL Neutrophils # (Manual) 8.20 H (1.3-7.7) k/uL Lymphocytes # (1.0-4.8) k/uL Lymphocytes # (Manual) 0.28 L (1.0-4.8) k/uL Metamyelocytes # (Man) 0.28 H (0) k/uL ABG pH (7.35-7.45) ABG pCO2 (35-45) mmHg ABG pO2 (83-108) mmHg ABG O2 Saturation (94-97) % ABG Lactic Acid (0.5-1.6) mmol/L Sodium 135 L (137-145) mmol/L Chloride 111 H (98-107) mmol/L Carbon Dioxide 16 L (22-30) mmol/L Glucose 164 H (74-99) mg/dL POC Glucose (mg/dL) 193 H (70-110) mg/dL Calcium 6.5 L (8.4-10.2) mg/dL Total Bilirubin (0.2-1.3) mg/dL ALT (4-34) U/L Alkaline Phosphatase (38-126) U/L Total Protein (6.3-8.2) g/dL Albumin (3.5-5.0) g/dL 06/25/23 Range/Units 06:04 RBC (3.80-5.40) m/uL Neutrophils # (Manual) (1.3-7.7) k/uL Lymphocytes # (1.0-4.8) k/uL Lymphocytes # (Manual) (1.0-4.8) k/uL Metamyelocytes # (Man) (0) k/uL ABG pH (7.35-7.45) ABG pCO2 (35-45) mmHg ABG pO2 (83-108) mmHg ABG O2 Saturation 98.2 H (94-97) % ABG Lactic Acid (0.5-1.6) mmol/L Sodium (137-145) mmol/L Chloride (98-107) mmol/L Carbon Dioxide (22-30) mmol/L Glucose (74-99) mg/dL POC Glucose (mg/dL) (70-110) mg/dL Calcium (8.4-10.2) mg/dL Total Bilirubin (0.2-1.3) mg/dL ALT (4-34) U/L Alkaline Phosphatase (38-126) U/L Total Protein (6.3-8.2) g/dL Albumin (3.5-5.0) g/dL Microbiology - Last 24 Hours (Table) 06/24/23 08:30 Gram Stain - Preliminary Abdomen Assessment and Plan Assessment: Acute abdomen secondary to breakdown of anastomosis status post takedown of colorectal anastomosis with conversion to Ly's procedure (06/23) septic shock secondary to intra-abdominal infection, improving Elevated lactic acid Acute hypoxic respiratory failure secondary to above requiring intubation and mechanical ventilation acute diverticulitis status post low anterior resection of the colon (06/18) Ovarian cyst status post bilateral ovarian cystectomy Worsening pneumo-peritoneam requiring exploratory laparotomy and bowel resection history of DVT Diabetes mellitus Hypertension Hyperlipidemia History of CVA Plan: Continue Zosyn. Continue with aggressive hydration pressors /Levophed on hold Pulmonary/critical care team followed closely Surgery primary team also followed closely Monitored glucose and continue with insulin,Actos on hold Surgical management as per surgery team keep patient nothing by mouth now , strted on TPN Critical care unit consult Labs and medication were reviewed.. Continue same treatment. Continue with symptomatic treatment. Resume home medication. Monitor labs and vitals. DVT and GI prophylaxis. Further recommendations as per clinical course of the patient DVT prophylaxis: Eliquis (put on hold until cleared by surgery team ) , SCD GI Prophylaxis:Changed to Protonix Prognosis is guarded Thank you for consulting us, we will follow-up with the pt closely
[2023-06-25] MEDS ORDERED: MVI, ADULT NO.4 WITH VIT K 10 ML, TRACE (CONC-1ML/DOSE) 1 ML in AMINO ACID 5%-D15W+LYTE... IV SCH ×3 (21:00)
[2023-06-25] MEDS ORDERED: MVI, ADULT NO.4 WITH VIT K 10 ML, TRACE (CONC-1ML/DOSE) 1 ML in AMINO ACID 5%-D15W 1,00... IV SCH ×3 (21:00)
[2023-06-25 21:01] LABS: African American GFR (CKD) >90 (>60 ml/min/1.73 sqM); Anion Gap 7 mmol/L; Blood Urea Nitrogen 13 mg/dL (7-17); Carbon Dioxide 19 mmol/L (22-30); Chloride 111 mmol/L (98-107); Glucose 123 mg/dL (74-99); Magnesium 2.4 mg/dL (1.6-2.3); Non-African American GFR(CKD) >90 (>60 ml/min/1.73 sqM); Potassium 3.9 mmol/L (3.5-5.1); Sodium 137 mmol/L (137-145)
[2023-06-25 23:49] LABS: Glucose,Whole Blood 163 mg/dL (70-110)
[2023-06-26] MEDS: INSULIN ASPART (NovoLOG) 100 UNIT/ML VIAL SQ SCH ×5 (00:39→23:15)
[2023-06-26] MEDS: PIPERACILLIN-TAZOBACTAM 3.375 GM in SODIUM CHLORIDE 0.9% 100 ML IVPB SCH ×4 (00:39→23:00)
[2023-06-26] MEDS: SODIUM CHLORIDE 0.9% 1,000 ML IV SCH ×3 (01:54→15:07)
[2023-06-26] MEDS: HYDROmorphone 1 MG/ML 1 ML SYRINGE IVP PRN ×8 (02:04→22:09)
[2023-06-26] MEDS: IPRATROPIUM-ALBUTEROL 3 ML NEB INHALATION SCH ×5 (03:47→19:44)
[2023-06-26 05:56] LABS: ABG Base Excess -0.1 mmol/L; ABG HCO3 24 mmol/L (21-25); ABG Oxygen Saturation 99.3 % (94-97); ABG PCO2 34 mmHg (35-45); ABG PH 7.46 (7.35-7.45); ABG PO2 140 mmHg (83-108); ABG TCO2 25 mmol/L (19-24); Allen Test Performed? Yes
[2023-06-26 05:58] LABS: Glucose,Whole Blood 167 mg/dL (70-110)
[2023-06-26 06:15] LABS: Basophils % (A) 0 %; Eosinophils # (A) 0.1 k/uL (0-0.7); Eosinophils % (A) 1 %; HCT 28.7 % (34.0-46.0); Hypochromasia Slight; Lymphocytes # (A) 0.6 k/uL (1.0-4.8); Lymphocytes % (A) 8 %; MCH 31.4 pg (25.0-35.0); MCHC 33.4 g/dL (31.0-37.0); Mean Platelet Volume 8.4; Monocytes # (A) 0.3 k/uL (0-1.0); Monocytes % (A) 4 %; Neutrophils # (A) 6.6 k/uL (1.3-7.7); Neutrophils % (A) 86 %; Platelet Count 229 k/uL (150-450); RBC 3.06 m/uL (3.80-5.40); RDW 14.1 % (11.5-15.5); WBC 7.8 k/uL (3.8-10.6)
[2023-06-26 06:23] LABS: Ionized Calcium 4.4 mg/dL (4.5-5.3)
[2023-06-26 06:30] LABS: HGB 9.6 gm/dL (11.4-16.0)
[2023-06-26 06:31] LABS: African American GFR (CKD) >90 (>60 ml/min/1.73 sqM); Anion Gap 5 mmol/L; Blood Urea Nitrogen 12 mg/dL (7-17); Carbon Dioxide 20 mmol/L (22-30); Chloride 111 mmol/L (98-107); Glucose 150 mg/dL (74-99); Magnesium 2.4 mg/dL (1.6-2.3); Non-African American GFR(CKD) >90 (>60 ml/min/1.73 sqM); Phosphorus 1.9 mg/dL (2.5-4.5); Potassium 3.5 mmol/L (3.5-5.1); Sodium 136 mmol/L (137-145)
[2023-06-26] MEDS: POTASSIUM BICARBONATE/CIT AC 20 MEQ TABLET.EFF NG-TUBE SCH ×2 (06:57→08:58)
[2023-06-26] MEDS ORDERED: POTASSIUM CHLORIDE ER 20 MEQ TAB.ER PO SCH (07:00)
--- NOTE | 2023-06-26 07:20 | XR ---
EXAMINATION TYPE: XR chest 1V portable DATE OF EXAM: 06/26/2023 COMPARISON: 06/25/2023 INDICATION: Tube placement TECHNIQUE: Single frontal view of the chest is obtained. FINDINGS: The heart size is normal. The pulmonary vasculature is normal. There is increasing opacity at the right lung base. Correlate for atelectasis. Small effusion should be considered. Right central venous catheter tip is within the right atrium. Endotracheal tube tip is above the guille na. Nasogastric tube transverses the thorax tip in the left upper quadrant of the abdomen. IMPRESSION: 1. Right lower lobe atelectasis and/or effusion. 2. Lines and catheters discussed above.
[2023-06-26] MEDS: PANTOPRAZOLE 40 MG/10 ML VIAL IVP SCH ×2 (08:09→22:13)
[2023-06-26] MEDS: CHLORHEXIDINE GLUCONATE 15 ML CUP MUCOUS MEM SCH ×2 (08:09→20:00)
[2023-06-26] MEDS: HEPARIN SODIUM,PORCINE 5,000 UNIT/ML 1 ML VIAL SQ SCH ×2 (08:09→22:13)
[2023-06-26] MEDS: NOREPINEPHRINE 8 MG in SODIUM CHLORIDE 0.9% 250 ML IV SCH (08:10)
[2023-06-26] MEDS ORDERED: FUROSEMIDE 10 MG/ML 4 ML VIAL IV STA (08:55)
--- NOTE | 2023-06-26 11:55 | P.PN ---
Subjective Progress Note Date: 06/26/23 Principal diagnosis: Acute abdomen with anastomotic leak following low anterior resection, status post reopening of laparotomy, lysis of adhesions takedown of colorectal anastomosis with conversion to Ly's procedure and colostomy with closed distal pouch This is a 53-year-old female patient was undergone a low anterior resection for diverticulitis and the patient is postop day #6. The patient overnight was having abdominal discomfort along with some intermittent chills. No reported fever. She was not passing any flatus and she had no bowel movement for the past 24 hours. The abdomen was protruded and was also tender. The patient had a white cell count of 6.9 with a hemoglobin of 11 and a platelet count of 206. The patient was seen by the on-call surgeon and the patient had a CAT scan of the abdomen and pelvis that showed free air in the abdomen without any extravasation of contrast. There was ascites and subcutaneous seroma involving the anterior pelvis. Based on that, the patient was taken back to the operating room by Bishnu Hurst surgeon and the patient underwent a laparotomy, partial omentectomy and colostomy formation and closure of the rectal stump. The patient was told to have anastomotic leak. Patient arrived today intensive care following her surgery. She is currently on assist control mode at the rate of 14, tidal volume of 400, FiO2 is at 100% with a PEEP of 5. She arrived to the ICU 9 AM this morning. The patient is on no sedatives for now. She is on IV fluids with 75 mL of normal saline. She has a JG drain in the right lower quadrant Doppler being serosanguineous. She has a colostomy in her left lower quadrant. She is hemodynamically stable. No hypotension. Cardiac rhythm is sinus tachycardia with a rate of 122. She is currently on a combination of Rocephin and Flagyl. Labs from today shows a white cell count of 4.5 with a hemoglobin 12.8, BUN is still pending. Creatinine is pending. Serum bicarb is 18 and sodium levels of 135. Glucose at 133. Urine output to be monitored and the patient has approximately 100 mL in her [place] bag. Reevaluated today on 06/25/23, patient remains in the ICU, intubated and mechanically ventilated. She is on assist control rate of 24 tidal volume 400 FiO2 50% and PEEP of 5 ABG showed a pO2 of 107 pCO2 35 pH of 7.39. Patient is on propofol at 60 mcg/kg/m she is also on 0.9 normal saline at 1 50 mL per hour she is now off norepinephrine. Maintained on Zosyn for her peritonitis. Patient does have a baseline of CVA and mental health issues I am a bit reluctant to proceed to weaning and extubating the patient today, she went off norepinephrine earlier today, I plan to continue to monitor the patient and we will address weaning and possibly extubation in the next 24 hours. Chest x-ray showed no evidence of active disease. WBC count is 9.4 hemoglobin 11.5 basic metabolic profile is normal renal profile is normal blood sugar is 193 Patient was reevaluated today on 06/26/23, remains in the ICU intubated and mechanically ventilated. Patient is sedated, she is requiring propofol at 50 mg/kg/m. And she is frequently receiving Dilaudid for pain. She is on assist control rate of 24 tidal volume 400 FiO2 50% PEEP of 5 ABG showed a pO2 of 140 pCO2 34 pH of 7.46, hence her FiO2 was cut down to 40% and her rate was cut down to 20. Patient seems to be quite edematous hence a dose of Lasix was given today 40 mg IV push 1 and her IV fluid was cut down to 75 mL per hour patient remains on TPN. Her urine output is about 40 mL per hour. Patient remains empirically on Zosyn for her acute abdomen presentation. Labs today showed W set of 7.8 hemoglobin 9.6 platelets of 229 basic metabolic profile is normal renal profile is normal, chest x-ray showed right lower lobe atelectasis. Doubt pneumonia. Objective - Vital Signs Vital signs: Vital Signs Temp 99.9 F H 06/26/23 08:00 Pulse 98 06/26/23 11:00 Resp 8 L 06/26/23 11:00 BP 100/65 06/25/23 13:30 Pulse Ox 96 06/26/23 11:00 FiO2 40 06/26/23 08:57 Intake & Output 06/25/23 06/26/23 06/26/23 18:59 06:59 18:59 Intake Total 2315.420 2554.955 996.593 Output Total 263 383 9206 Balance 2141.020 7242.955 -1273.407 Weight 86 kg 90.1 kg Intake: IV 2100 2170 775 Magnesium Sulfate-D5w Pmx 100 1 gm In Dextrose/Water 1 100ml.bag @ 100 mls/hr IVPB Q1H [facility] Rx#: [id number] Mvi, Adult No.4 with Vit 270 150 K 10 ml Trace (Conc-1Ml/ Dose) 1 ml In Amino Acid 5%-D15w 1,000 ml @ 30 mls /hr IV .Q24H [facility] Rx#: [id number] Piperacillin-Tazobactam 3 200 100 100 .375 gm In Sodium Chloride 0.9% 100 ml @ 25 mls/hr IVPB Q8HR [facility] Rx# :[id number] Sodium Chloride 0.9% 1, 1800 1800 525 000 ml @ 75 mls/hr IV . [id number] [facility] Rx#:[id number] Intake, IV Titration 215.420 384.955 71.593 Amount Norepinephrine 8 mg In 22.633 Sodium Chloride 0.9% 250 ml @ 0.03 MCG/KG/MIN 4. 557 mls/hr IV .Q24H [facility] Rx#:[id number] propofoL 1,000 mg In 192.787 384.955 71.593 Empty Bag 1 bag @ 15 MCG/ KG/MIN 7.065 mls/hr IV . [id number] [facility] Rx#:[id number] Other 150 Output: Gastric Drainage 100 Drainage 55 10 Left Lower Abdomen 25 Right Lower Abdomen 30 10 Urine 347 825 7649 Other: Voiding Method Indwelling Catheter Indwelling Catheter Indwelling Catheter ABP, PAP, CO, CI - Last Documented Arterial Blood Pressure 115/63 - Exam Physical Exam: Revealed a 53-year-old female intubated and mechanically ventilated, sedated, on propofol. At 55 mcg/kg/m Head: Atraumatic, normocephalic. The tracheal tube and orogastric tube are intact HEENT:[Neck is supple.] [No neck masses.] [No thyromegaly.] [No JVD.] Chest: [Diminished breath sounds at the bases no rhonchi no wheezes Cardiac Exam: [Normal S1 and S2, no S3 gallop, no murmur.] Abdomen: [Soft, nontender, no megaly, no rebound, no guarding, colostomy seems to be functional. Negative bowel sounds. Extremities: [No clubbing, 2+ bipedal edema edema, no cyanosis.] Neurological Exam: Could not assess patient is sedated. Psychiatric: Could not assess. - Labs CBC & Chem 7: 06/26/23 06:00 06/26/23 06:00 Labs: Abnormal Lab Results - Last 24 Hours (Table) 06/25/23 06/25/23 06/25/23 Range/Units 11:55 18:09 20:25 RBC (3.80-5.40) m/uL Hgb (11.4-16.0) gm/dL Hct (34.0-46.0) % Lymphocytes # (1.0-4.8) k/uL ABG pH (7.35-7.45) ABG pCO2 (35-45) mmHg ABG pO2 (83-108) mmHg ABG Total CO2 (19-24) mmol/L ABG O2 Saturation (94-97) % Sodium (137-145) mmol/L Chloride (98-107) mmol/L Carbon Dioxide (22-30) mmol/L Creatinine (0.52-1.04) mg/dL Glucose (74-99) mg/dL POC Glucose (mg/dL) 154 H 144 H (70-110) mg/dL Calcium (8.4-10.2) mg/dL Ionized Calcium Janak (4.5-5.3) mg/dL Phosphorus 2.2 L (2.5-4.5) mg/dL Magnesium (1.6-2.3) mg/dL Triglycerides (0.00-149.00) mg/dL 06/25/23 06/25/23 06/26/23 Range/Units 20:25 23:47 05:49 RBC (3.80-5.40) m/uL Hgb (11.4-16.0) gm/dL Hct (34.0-46.0) % Lymphocytes # (1.0-4.8) k/uL ABG pH 7.46 H (7.35-7.45) ABG pCO2 34 L (35-45) mmHg ABG pO2 140 H (83-108) mmHg ABG Total CO2 25 H (19-24) mmol/L ABG O2 Saturation 99.3 H (94-97) % Sodium (137-145) mmol/L Chloride 111 H (98-107) mmol/L Carbon Dioxide 19 L (22-30) mmol/L Creatinine (0.52-1.04) mg/dL Glucose 123 H (74-99) mg/dL POC Glucose (mg/dL) 163 H (70-110) mg/dL Calcium 7.0 L (8.4-10.2) mg/dL Ionized Calcium Janak (4.5-5.3) mg/dL Phosphorus (2.5-4.5) mg/dL Magnesium 2.4 H (1.6-2.3) mg/dL Triglycerides (0.00-149.00) mg/dL 06/26/23 06/26/23 06/26/23 Range/Units 05:57 06:00 06:00 RBC 3.06 L (3.80-5.40) m/uL Hgb 9.6 L D (11.4-16.0) gm/dL Hct 28.7 L (34.0-46.0) % Lymphocytes # 0.6 L (1.0-4.8) k/uL ABG pH (7.35-7.45) ABG pCO2 (35-45) mmHg ABG pO2 (83-108) mmHg ABG Total CO2 (19-24) mmol/L ABG O2 Saturation (94-97) % Sodium 136 L (137-145) mmol/L Chloride 111 H (98-107) mmol/L Carbon Dioxide 20 L (22-30) mmol/L Creatinine 0.50 L (0.52-1.04) mg/dL Glucose 150 H (74-99) mg/dL POC Glucose (mg/dL) 167 H (70-110) mg/dL Calcium 7.0 L (8.4-10.2) mg/dL Ionized Calcium Janak 4.4 L (4.5-5.3) mg/dL Phosphorus 1.9 L (2.5-4.5) mg/dL Magnesium 2.4 H (1.6-2.3) mg/dL Triglycerides 543.00 H (0.00-149.00) mg/dL Microbiology - Last 24 Hours (Table) 06/24/23 08:30 Gram Stain - Preliminary Abdomen Wound Culture - Preliminary Escherichia coli Pseudomonas aeruginosa Nighat albicans Assessment and Plan Assessment: Impression: Acute abdomen/anastomotic leak following a low anterior resection. The patient was taken to the operating room and the patient underwent an extensive laparotomy, partial omentectomy, colostomy formation of this; and closure of the rectal stump. The patient is postop day #2 Low anterior resection for diverticulitis and the patient is postop day #8 Acute hypoxic respiratory failure, currently intubated on a mechanical ventilator, settings of the ventilator are addressed accordingly Sinus tachycardia, could be related to intra-abdominal sepsis/Sirs acute diverticulitis Diabetes mellitus 2 Hypertension Hyperlipidemia History of CVA with expressive aphasia Previous history of DVT maintained on anticoagulation with Eliquis on outpatient basis. Currently off anticoagulants Recommendation: Continue ventilatory support, although a weaning trial could be considered today and the patient remains calm off sedation and pain remains well controlled Continue antibiotics/Zosyn Wean and likely discontinue propofol to assess mental status. And to consider checking weaning parameters, may consider Precedex if needed Continue TPN Monitor sugars and use sliding scale coverage Continue Dilaudid for pain control Continue subcu heparin for DVT prophylaxis Continue GI prophylaxis Monitor output from the JG drain Monitor colostomy output Will assess today for possible weaning however I doubt that will happen. Patient is critically ill Critical care time is over 30min Time with Patient: Greater than 30
[2023-06-26 12:15] LABS: Glucose,Whole Blood 181 mg/dL (70-110)
--- NOTE | 2023-06-26 12:37 | P.PN ---
Subjective this is a pleasant 53 years old femalepresents with diverticulitis and bilateral ovarian cyst. She status post low anterior resection with bilateral ovarian cystectomy and partial omentectomy. sHe tolerates diet well, abdominal pain is minimal. She had little watery bowel movement yesterday. Eliquis was started hemodynamically stable and labs were reviewed 06/23/2023 Patient is seen and examined by me at bedside. Patient had increasing abdominal pain and distention. I discussed the case with the staff were discussed with surgery team as well who were following the case closely. Surgical team ordered abdominal x-ray which showed large pneumo peritoneal larger than expected for postop day. Then they ordered a CT of the abdomen and pelvis which showed free air present within the abdomen. With ascites. Patient was taken for emergent exploratory laparotomy and possible bowel resection and after the procedure patient was taken to the ICU. Patient was started on antibiotic with Flagyl and ceftriaxone as well as aggressive hydration with normal saline 100 mL per hour. Blood pressure improved and with systolic was 140-160. Patient was on room air saturating about 95%. She had low-grade temperature in the morning of 99.9. Showing WBCs of 8.4, hemoglobin 12.9. Platelet count 221. Creatinine is 0.6. Glucose controlled. Electrolytes within the normal. 06/24/2023 patient yesterday she had worsening abdominal pain and distention. Surgery team will follow closely. Several images were requested showing free air, And patien t eventually was taken to the operation room As per surgery team patient underwent (Reopening of laparotomy, lysis of adhesions. Takedown of colorectal anastomosis with conversion to Ly's procedure i.e. and colostomy with closed distal pouch) and it was feculent material in the peritoneal cavity secondary to anastomotic breakdown. Patient was placed on antibiotics. Currently her antibiotics were changed to Zosyn to cover both gram-negative and in microvolts. Patient currently in the ICU sedated and intubated on mechanical ventilation. Her abdomen is less distended and left lower colostomy back in place. Her blood pressure was on the low side she received 2 doses of normal saline bolus of 1 L each. Also she was placed on small dose of pressors. Patient remains tachycardic and tachypneic and she had a fever of 103 this morning Lactic acid is elevated at 2.7, came back to normal at 1.6 CBC, BMP and liver enzymes were unremarkable. Except for mildly elevated ALT and low elbow made. Chest x-ray from this morning showing atelectasis. Case was discussed with pulmonary/critical care. 06/25/2023 pt is sedated and intubated and pulmonary critical care team help with the vent managment , pt had uneventful night , she was on less levophed dose in the morning than yesterday, her pressor was discontinued later, her bp improved through the day and systolic bp 120-130 she has soft abdomen and colostomy back is empty only from little serosanguinous fluid wbc is 9.4, hb 11.5, platelet is normal her eliquis is still on hold , and dvt px is machical now till cleared by surge ry she is on zosyn, fever subsided , no leukocytosis , and pt is started on TPN at 30 ml per hr 06/26/2023 Patient is still intubated and sedated in the ICU with pulmonary team help with mechanical ventilation management Propofol may be discontinued soon to help her mentation. Chest lungs have mild leukocytosis. She still has mild fever 99.8, tachypneic and tachycardic but she is improving slowly and gradually. She is On TPN at 30 ML/H, Normal Saline at 50 ML and Zosyn. Blood Culture Also Growing Sensitive Pseudomonas and E. coli with Nighat Objective - Vital Signs Vital signs: Vital Signs Temp 99.7 F H 06/26/23 04:00 Pulse 87 06/26/23 07:00 Resp 24 06/26/23 07:00 BP 100/65 06/25/23 13:30 Pulse Ox 95 06/26/23 07:00 FiO2 50 06/26/23 07:00 Intake & Output 06/25/23 06/26/23 06/26/23 18:59 06:59 18:59 Intake Total 2315.420 2554.955 270 Output Total 725 705 50 Balance 0807.875 7773.955 220 Weight 86 kg 90.1 kg Intake: IV 2100 2170 180 Magnesium Sulfate-D5w Pmx 100 1 gm In Dextrose/Water 1 100ml.bag @ 100 mls/hr IVPB Q1H [facility] Rx#: [id number] Mvi, Adult No.4 with Vit 270 30 K 10 ml Trace (Conc-1Ml/ Dose) 1 ml In Amino Acid 5%-D15w 1,000 ml @ 30 mls /hr IV .Q24H [facility] Rx#: [id number] Piperacillin-Tazobactam 3 200 100 .375 gm In Sodium Chloride 0.9% 100 ml @ 25 mls/hr IVPB Q8HR [facility] Rx# :[id number] Sodium Chloride 0.9% 1, 1800 1800 150 000 ml @ 150 mls/hr IV . Q6H40M [facility] Rx#:[id number] Intake, IV Titration 215.420 384.955 Amount Norepinephrine 8 mg In 22.633 Sodium Chloride 0.9% 250 ml @ 0.03 MCG/KG/MIN 4. 557 mls/hr IV .Q24H [facility] Rx#:[id number] propofoL 1,000 mg In 192.787 384.955 Empty Bag 1 bag @ 15 MCG/ KG/MIN 7.065 mls/hr IV . [id number] [facility] Rx#:[id number] Other 90 Output: Gastric Drainage 100 Drainage 55 10 Left Lower Abdomen 25 Right Lower Abdomen 30 10 Urine 670 595 50 Other: Voiding Method Indwelling Catheter Indwelling Catheter ABP, PAP, CO, CI - Last Documented Arterial Blood Pressure 115/54 - Exam -GENERAL: The patient is intubated and sedated HEENT: Pupils are round and equally reacting to light. EOMI. No scleral icterus. No conjunctival pallor. Normocephalic, atraumatic. No pharyngeal erythema. No thyromegaly. CARDIOVASCULAR: S1 and S2 present. No murmurs, rubs, or gallops. PULMONARY: Chest is clear to auscultation, no wheezing , no crackles. -ABDOMEN: Soft, periumbilical tenderness , no guarding or rebound tenderness, distended, normoactive bowel sounds. No palpable organomegaly. surgical wound is healing. Colostomy back in a Place MUSCULOSKELETAL: No joint swelling or deformity. EXTREMITIES: No cyanosis, clubbing, or pedal edema. NEUROLOGICAL: Gross neurological examination did not reveal any focal deficits. SKIN: No rashes. no petechiae. - Labs CBC & Chem 7: 06/26/23 06:00 06/26/23 06:00 Labs: Abnormal Lab Results - Last 24 Hours (Table) 06/25/23 06/25/23 06/25/23 Range/Units 03:15 03:15 11:55 RBC (3.80-5.40) m/uL Hgb (11.4-16.0) gm/dL Hct (34.0-46.0) % Lymphocytes # (1.0-4.8) k/uL ABG pH (7.35-7.45) ABG pCO2 (35-45) mmHg ABG pO2 (83-108) mmHg ABG Total CO2 (19-24) mmol/L ABG O2 Saturation (94-97) % Sodium (137-145) mmol/L Chloride (98-107) mmol/L Carbon Dioxide (22-30) mmol/L Creatinine (0.52-1.04) mg/dL Glucose (74-99) mg/dL POC Glucose (mg/dL) 154 H (70-110) mg/dL Hemoglobin A1c 7.7 H (<=6.0) % Calcium (8.4-10.2) mg/dL Ionized Calcium Janak (4.5-5.3) mg/dL Phosphorus (2.5-4.5) mg/dL Magnesium (1.6-2.3) mg/dL Iron 8 L (50-170) UG/DL TIBC 167 L (228-460) UG/DL % Saturation 4.79 L (12.00-45.00) Transferrin 119.0 L (204.0-354.0) mg/dL Vitamin B12 1199.0 H (200.0-944.0) pg/mL 06/25/23 06/25/23 06/25/23 Range/Units 18:09 20:25 20:25 RBC (3.80-5.40) m/uL Hgb (11.4-16.0) gm/dL Hct (34.0-46.0) % Lymphocytes # (1.0-4.8) k/uL ABG pH (7.35-7.45) ABG pCO2 (35-45) mmHg ABG pO2 (83-108) mmHg ABG Total CO2 (19-24) mmol/L ABG O2 Saturation (94-97) % Sodium (137-145) mmol/L Chloride 111 H (98-107) mmol/L Carbon Dioxide 19 L (22-30) mmol/L Creatinine (0.52-1.04) mg/dL Glucose 123 H (74-99) mg/dL POC Glucose (mg/dL) 144 H (70-110) mg/dL Hemoglobin A1c (<=6.0) % Calcium 7.0 L (8.4-10.2) mg/dL Ionized Calcium Janak (4.5-5.3) mg/dL Phosphorus 2.2 L (2.5-4.5) mg/dL Magnesium 2.4 H (1.6-2.3) mg/dL Iron (50-170) UG/DL TIBC (228-460) UG/DL % Saturation (12.00-45.00) Transferrin (204.0-354.0) mg/dL Vitamin B12 (200.0-944.0) pg/mL 06/25/23 06/26/23 06/26/23 Range/Units 23:47 05:49 05:57 RBC (3.80-5.40) m/uL Hgb (11.4-16.0) gm/dL Hct (34.0-46.0) % Lymphocytes # (1.0-4.8) k/uL ABG pH 7.46 H (7.35-7.45) ABG pCO2 34 L (35-45) mmHg ABG pO2 140 H (83-108) mmHg ABG Total CO2 25 H (19-24) mmol/L ABG O2 Saturation 99.3 H (94-97) % Sodium (137-145) mmol/L Chloride (98-107) mmol/L Carbon Dioxide (22-30) mmol/L Creatinine (0.52-1.04) mg/dL Glucose (74-99) mg/dL POC Glucose (mg/dL) 163 H 167 H (70-110) mg/dL Hemoglobin A1c (<=6.0) % Calcium (8.4-10.2) mg/dL Ionized Calcium Janak (4.5-5.3) mg/dL Phosphorus (2.5-4.5) mg/dL Magnesium (1.6-2.3) mg/dL Iron (50-170) UG/DL TIBC (228-460) UG/DL % Saturation (12.00-45.00) Transferrin (204.0-354.0) mg/dL Vitamin B12 (200.0-944.0) pg/mL 06/26/23 06/26/23 Range/Units 06:00 06:00 RBC 3.06 L (3.80-5.40) m/uL Hgb 9.6 L D (11.4-16.0) gm/dL Hct 28.7 L (34.0-46.0) % Lymphocytes # 0.6 L (1.0-4.8) k/uL ABG pH (7.35-7.45) ABG pCO2 (35-45) mmHg ABG pO2 (83-108) mmHg ABG Total CO2 (19-24) mmol/L ABG O2 Saturation (94-97) % Sodium 136 L (137-145) mmol/L Chloride 111 H (98-107) mmol/L Carbon Dioxide 20 L (22-30) mmol/L Creatinine 0.50 L (0.52-1.04) mg/dL Glucose 150 H (74-99) mg/dL POC Glucose (mg/dL) (70-110) mg/dL Hemoglobin A1c (<=6.0) % Calcium 7.0 L (8.4-10.2) mg/dL Ionized Calcium Janak 4.4 L (4.5-5.3) mg/dL Phosphorus 1.9 L (2.5-4.5) mg/dL Magnesium 2.4 H (1.6-2.3) mg/dL Iron (50-170) UG/DL TIBC (228-460) UG/DL % Saturation (12.00-45.00) Transferrin (204.0-354.0) mg/dL Vitamin B12 (200.0-944.0) pg/mL Microbiology - Last 24 Hours (Table) 06/24/23 08:30 Gram Stain - Preliminary Abdomen Wound Culture - Preliminary Gram Neg Bacilli Gram Neg Bacilli#2 Assessment and Plan Assessment: Acute abdomen secondary to breakdown of anastomosis status post takedown of colorectal anastomosis with conversion to Ly's procedure (06/23) septic shock secondary to intra-abdominal infection, improving Elevated lactic acid Acute hypoxic respiratory failure secondary to above requiring intubation and mechanical ventilation acute diverticulitis status post low anterior resection of the colon (06/18) Ovarian cyst status post bilateral ovarian cystectomy Worsening pneumo-peritoneam requiring exploratory laparotomy and bowel resection history of DVT Diabetes mellitus Hypertension Hyperlipidemia History of CVA Plan: Continue Zosyn. Continue with aggressive hydration pressors /Levophed on hold Pulmonary/critical care team followed closely Surgery primary team also followed closely Monitored glucose and continue with insulin,Actos on hold Surgical management as per surgery team keep patient nothing by mouth now , strted on TPN Critical care unit consult Labs and medication were reviewed.. Continue same treatment. Continue with symptomatic treatment. Resume home medication. Monitor labs and vitals. DVT and GI prophylaxis. Further recommendations as per clinical course of the patient DVT prophylaxis: Eliquis (put on hold until cleared by surgery team ) , SCD GI Prophylaxis:Changed to Protonix Prognosis is guarded Thank you for consulting us, we will follow-up with the pt closely
[2023-06-26 12:58] LABS: ABG Base Excess 3.7 mmol/L; ABG HCO3 27 mmol/L (21-25); ABG Oxygen Saturation 97.7 % (94-97); ABG PCO2 36 mmHg (35-45); ABG PH 7.49 (7.35-7.45); ABG PO2 90 mmHg (83-108); ABG TCO2 28 mmol/L (19-24)
--- NOTE | 2023-06-26 13:39 | P.PN ---
Subjective Progress Note Date: 06/26/23 CHIEF COMPLAINT: Diverticulitis HISTORY OF PRESENT ILLNESS: Patient is currently in the ICU intubated and on mechanical ventilation. She had diverticulitis with a lower anterior resection on 06/18/23. She then developed an anastomotic leak and required to be taken back to the OR on 06/24/2023. Patient is postop day #2 status post takedown of colorectal anastomosis with conversion to Ly's procedure and colostomy with close distal pouch for feculent peritonitis secondary to anastomotic leak. Patient did receive a dose of IV Lasix for fluid overload. Pulmonary assessing patient for possible weaning from the vent today. Patient did have a low-grade temp of 100.5 yesterday at 4 PM. WBC 7. 8 hgb 9.6 platelets 229 sodium 136 potassium 3.6 creatinine 0.50. Incisional dressing changed yesterday by nursing staff. JG drain minimal 10mL serosanguineous output PHYSICAL EXAM: VITAL SIGNS: Reviewed. GENERAL: Well-developed in no acute distress. ABDOMEN: Soft. Distended. Ostomy on the left. Stoma dusky. Serosanguineous output and colostomy bag. NEUROLOGIC: Alert and oriented. Cranial nerves II through XII grossly intact. ASSESSMENT: 1. Feculent peritonitis secondary to anastomotic leak status post reopening of laparotomy, lysis of adhesions. Takedown of colorectal anastomosis with conversion to Ly's procedure and colostomy 2. Diverticulitis and bilateral ovarian cysts PLAN: -Continue ICU management -Continue supportive care -Continue TPN for nutrition support -Continue antibiotics -DVT prophylaxis subcu heparin Physician [employer] Data Analyst note has been reviewed by physician. Signing provider agrees with the documented findings, assessment, and plan of care. Objective - Vital Signs Vital signs: Vital Signs Temp 99.9 F H 06/26/23 08:00 Pulse 98 06/26/23 11:00 Resp 8 L 06/26/23 11:00 BP 100/65 06/25/23 13:30 Pulse Ox 96 06/26/23 11:00 FiO2 40 06/26/23 08:57 Intake & Output 06/25/23 06/26/23 06/26/23 18:59 06:59 18:59 Intake Total 2315.420 2554.955 983.208 Output Total 055 889 1036 Balance 5521.680 2732.955 -1286.792 Weight 86 kg 90.1 kg Intake: IV 2100 2170 775 Magnesium Sulfate-D5w Pmx 100 1 gm In Dextrose/Water 1 100ml.bag @ 100 mls/hr IVPB Q1H [facility] Rx#: [id number] Mvi, Adult No.4 with Vit 270 150 K 10 ml Trace (Conc-1Ml/ Dose) 1 ml In Amino Acid 5%-D15w 1,000 ml @ 30 mls /hr IV .Q24H [facility] Rx#: [id number] Piperacillin-Tazobactam 3 200 100 100 .375 gm In Sodium Chloride 0.9% 100 ml @ 25 mls/hr IVPB Q8HR [facility] Rx# :[id number] Sodium Chloride 0.9% 1, 1800 1800 525 000 ml @ 75 mls/hr IV . [id number] [facility] Rx#:[id number] Intake, IV Titration 215.420 384.955 58.208 Amount Norepinephrine 8 mg In 22.633 Sodium Chloride 0.9% 250 ml @ 0.03 MCG/KG/MIN 4. 557 mls/hr IV .Q24H [facility] Rx#:[id number] propofoL 1,000 mg In 192.787 384.955 58.208 Empty Bag 1 bag @ 15 MCG/ KG/MIN 7.065 mls/hr IV . [id number] [facility] Rx#:[id number] Other 150 Output: Gastric Drainage 100 Drainage 55 10 Left Lower Abdomen 25 Right Lower Abdomen 30 10 Urine 536 899 5617 Other: Voiding Method Indwelling Catheter Indwelling Catheter Indwelling Catheter ABP, PAP, CO, CI - Last Documented Arterial Blood Pressure 115/63 - Labs CBC & Chem 7: 06/26/23 06:00 06/26/23 12:15 Labs: Abnormal Lab Results - Last 24 Hours (Table) 06/25/23 06/25/23 06/25/23 Range/Units 11:55 18:09 20:25 RBC (3.80-5.40) m/uL Hgb (11.4-16.0) gm/dL Hct (34.0-46.0) % Lymphocytes # (1.0-4.8) k/uL ABG pH (7.35-7.45) ABG pCO2 (35-45) mmHg ABG pO2 (83-108) mmHg ABG Total CO2 (19-24) mmol/L ABG O2 Saturation (94-97) % Sodium (137-145) mmol/L Chloride (98-107) mmol/L Carbon Dioxide (22-30) mmol/L Creatinine (0.52-1.04) mg/dL Glucose (74-99) mg/dL POC Glucose (mg/dL) 154 H 144 H (70-110) mg/dL Calcium (8.4-10.2) mg/dL Ionized Calcium Janak (4.5-5.3) mg/dL Phosphorus 2.2 L (2.5-4.5) mg/dL Magnesium (1.6-2.3) mg/dL Triglycerides (0.00-149.00) mg/dL 06/25/23 06/25/23 06/26/23 Range/Units 20:25 23:47 05:49 RBC (3.80-5.40) m/uL Hgb (11.4-16.0) gm/dL Hct (34.0-46.0) % Lymphocytes # (1.0-4.8) k/uL ABG pH 7.46 H (7.35-7.45) ABG pCO2 34 L (35-45) mmHg ABG pO2 140 H (83-108) mmHg ABG Total CO2 25 H (19-24) mmol/L ABG O2 Saturation 99.3 H (94-97) % Sodium (137-145) mmol/L Chloride 111 H (98-107) mmol/L Carbon Dioxide 19 L (22-30) mmol/L Creatinine (0.52-1.04) mg/dL Glucose 123 H (74-99) mg/dL POC Glucose (mg/dL) 163 H (70-110) mg/dL Calcium 7.0 L (8.4-10.2) mg/dL Ionized Calcium Janak (4.5-5.3) mg/dL Phosphorus (2.5-4.5) mg/dL Magnesium 2.4 H (1.6-2.3) mg/dL Triglycerides (0.00-149.00) mg/dL 06/26/23 06/26/23 06/26/23 Range/Units 05:57 06:00 06:00 RBC 3.06 L (3.80-5.40) m/uL Hgb 9.6 L D (11.4-16.0) gm/dL Hct 28.7 L (34.0-46.0) % Lymphocytes # 0.6 L (1.0-4.8) k/uL ABG pH (7.35-7.45) ABG pCO2 (35-45) mmHg ABG pO2 (83-108) mmHg ABG Total CO2 (19-24) mmol/L ABG O2 Saturation (94-97) % Sodium 136 L (137-145) mmol/L Chloride 111 H (98-107) mmol/L Carbon Dioxide 20 L (22-30) mmol/L Creatinine 0.50 L (0.52-1.04) mg/dL Glucose 150 H (74-99) mg/dL POC Glucose (mg/dL) 167 H (70-110) mg/dL Calcium 7.0 L (8.4-10.2) mg/dL Ionized Calcium Janak 4.4 L (4.5-5.3) mg/dL Phosphorus 1.9 L (2.5-4.5) mg/dL Magnesium 2.4 H (1.6-2.3) mg/dL Triglycerides 543.00 H (0.00-149.00) mg/dL Microbiology - Last 24 Hours (Table) 06/24/23 08:30 Gram Stain - Preliminary Abdomen Wound Culture - Preliminary Escherichia coli Pseudomonas aeruginosa Nighat albicans
[2023-06-26] MEDS ORDERED: Potassium Replacement Protocol 1 EACH MISC MISCELLANE PRN (13:50)
[2023-06-26] MEDS: POTASSIUM CHLORIDE 10 MEQ in WATER FOR INJECTION 1 100ML.BAG IVPB SCH ×2 (15:00→16:00)
[2023-06-26 18:19] LABS: Glucose,Whole Blood 178 mg/dL (70-110)
[2023-06-26 23:13] LABS: Glucose,Whole Blood 166 mg/dL (70-110)
[2023-06-26] MEDS: 1: MVI, ADULT NO.4 WITH VIT K 10 ML, TRACE (CONC-1ML/DOSE) 1 ML in AMINO ACID 5%-D15W+LY IV SCH ×3 (23:16)
[2023-06-27] MEDS: HYDROmorphone 1 MG/ML 1 ML SYRINGE IVP PRN (00:26)
[2023-06-27] MEDS ORDERED: LORazepam 2 MG/ML INJ IV PRN (01:30)
[2023-06-27] MEDS ORDERED: FUROSEMIDE 10 MG/ML 4 ML VIAL IV STA ×2 (01:30→12:03)
[2023-06-27] MEDS: MORPHINE SULFATE 4 MG/ML SYRINGE IVP PRN ×8 (02:21→23:05)
--- NOTE | 2023-06-27 02:22 | XR ---
EXAM: XR Chest, 1 View CLINICAL HISTORY: ITS.REASON XR Reason: ng tube placement TECHNIQUE: Frontal view of the chest. COMPARISON: No relevant prior studies available. FINDINGS: Lungs: Left basilar infiltrate. Right lung is clear. Pleural space: Unremarkable. No pneumothorax. Heart: Unremarkable. No cardiomegaly. Mediastinum: Unremarkable. Bones/joints: Unremarkable. Tubes, lines and devices: Right-sided central venous catheter with its tip overlying the IVC. Esophageal catheter present with its tip overlying the gastric fundus. IMPRESSION: Left basilar infiltrate
[2023-06-27 03:56] LABS: ABG Base Excess 6.7 mmol/L; ABG HCO3 30 mmol/L (21-25); ABG Oxygen Saturation 96.5 % (94-97); ABG PCO2 37 mmHg (35-45); ABG PH 7.52 (7.35-7.45); ABG PO2 75 mmHg (83-108); ABG TCO2 31 mmol/L (19-24); Allen Test Performed? Yes
[2023-06-27] MEDS: DEXMEDETOMIDINE/0.9% NACL(PMX) 400 MCG in EMPTY BAG 1 BAG IV SCH ×2 (04:13→11:04)
[2023-06-27 05:24] LABS: Basophils % (A) 0 %; Eosinophils # (A) 0.1 k/uL (0-0.7); Eosinophils % (A) 1 %; HCT 29.7 % (34.0-46.0); Lymphocytes # (A) 0.7 k/uL (1.0-4.8); Lymphocytes % (A) 9 %; MCH 31.2 pg (25.0-35.0); MCHC 33.8 g/dL (31.0-37.0); MCV 92.2 fL (80.0-100.0); Mean Platelet Volume 8.7; Monocytes # (A) 0.5 k/uL (0-1.0); Monocytes % (A) 6 %; Neutrophils # (A) 6.5 k/uL (1.3-7.7); Neutrophils % (A) 82 %; Platelet Count 246 k/uL (150-450); RBC 3.22 m/uL (3.80-5.40); RDW 14.1 % (11.5-15.5); WBC 7.9 k/uL (3.8-10.6)
[2023-06-27 05:26] LABS: Glucose,Whole Blood 248 mg/dL (70-110)
[2023-06-27] MEDS: INSULIN ASPART (NovoLOG) 100 UNIT/ML VIAL SQ SCH ×4 (05:30→23:36)
[2023-06-27 05:36] LABS: African American GFR (CKD) >90 (>60 ml/min/1.73 sqM); Anion Gap 5 mmol/L; Blood Urea Nitrogen 12 mg/dL (7-17); Calcium 7.4 mg/dL (8.4-10.2); Carbon Dioxide 29 mmol/L (22-30); Chloride 103 mmol/L (98-107); Glucose 228 mg/dL (74-99); Magnesium 1.8 mg/dL (1.6-2.3); Non-African American GFR(CKD) >90 (>60 ml/min/1.73 sqM); Phosphorus 2.8 mg/dL (2.5-4.5); Potassium 2.9 mmol/L (3.5-5.1); Sodium 137 mmol/L (137-145)
[2023-06-27] MEDS ORDERED: RACEPINEPHRINE 2.25% NEB 0.5 ML NEBU INHALATION ONE (05:49)
[2023-06-27] MEDS ORDERED: DEXAMETHASONE SOD PHOSPHATE 10 MG/ML 1 ML VIAL IVP STA (05:49)
[2023-06-27] MEDS ORDERED: RACEPINEPHRINE 2.25% NEB 0.5 ML NEBU INHALATION STA (05:49)
[2023-06-27] MEDS: POTASSIUM CHLORIDE 20 MEQ in WATER FOR INJECTION 1 100ML.BAG IVPB SCH ×3 (06:43→11:22)
[2023-06-27] MEDS: IPRATROPIUM-ALBUTEROL 3 ML NEB INHALATION SCH ×4 (08:08→20:48)
[2023-06-27] MEDS: CHLORHEXIDINE GLUCONATE 15 ML CUP MUCOUS MEM SCH (08:59)
[2023-06-27] MEDS: PANTOPRAZOLE 40 MG/10 ML VIAL IVP SCH ×2 (09:03→20:36)
[2023-06-27] MEDS: HEPARIN SODIUM,PORCINE 5,000 UNIT/ML 1 ML VIAL SQ SCH ×2 (09:03→20:37)
[2023-06-27] MEDS: PIPERACILLIN-TAZOBACTAM 3.375 GM in SODIUM CHLORIDE 0.9% 100 ML IVPB SCH ×3 (09:04→23:37)
[2023-06-27] MEDS: SODIUM CHLORIDE 0.9% 1,000 ML IV SCH ×4 (09:16→20:46)
[2023-06-27] MEDS: 1: MVI, ADULT NO.4 WITH VIT K 10 ML, TRACE (CONC-1ML/DOSE) 1 ML in AMINO ACID 5%-D15W+LY IV SCH ×9 (11:09→20:40)
[2023-06-27 11:49] LABS: ABG Base Excess 4.9 mmol/L; ABG HCO3 28 mmol/L (21-25); ABG Oxygen Saturation 93.3 % (94-97); ABG PCO2 33 mmHg (35-45); ABG PH 7.53 (7.35-7.45); ABG TCO2 29 mmol/L (19-24)
[2023-06-27 11:52] LABS: ABG PO2 59 mmHg (83-108); Allen Test Performed? no
--- NOTE | 2023-06-27 11:52 | P.PN ---
Subjective Progress Note Date: 06/27/23 Principal diagnosis: Acute abdomen with anastomotic leak following low anterior resection, status post reopening of laparotomy, lysis of adhesions takedown of colorectal anastomosis with conversion to Ly's procedure and colostomy with closed distal pouch This is a 53-year-old female patient was undergone a low anterior resection for diverticulitis and the patient is postop day #6. The patient overnight was having abdominal discomfort along with some intermittent chills. No reported fever. She was not passing any flatus and she had no bowel movement for the past 24 hours. The abdomen was protruded and was also tender. The patient had a white cell count of 6.9 with a hemoglobin of 11 and a platelet count of 206. The patient was seen by the on-call surgeon and the patient had a CAT scan of the abdomen and pelvis that showed free air in the abdomen without any extravasation of contrast. There was ascites and subcutaneous seroma involving the anterior pelvis. Based on that, the patient was taken back to the operating room by Bishnu Hurst surgeon and the patient underwent a laparotomy, partial omentectomy and colostomy formation and closure of the rectal stump. The patient was told to have anastomotic leak. Patient arrived today intensive care following her surgery. She is currently on assist control mode at the rate of 14, tidal volume of 400, FiO2 is at 100% with a PEEP of 5. She arrived to the ICU 9 AM this morning. The patient is on no sedatives for now. She is on IV fluids with 75 mL of normal saline. She has a JG drain in the right lower quadrant Doppler being serosanguineous. She has a colostomy in her left lower quadrant. She is hemodynamically stable. No hypotension. Cardiac rhythm is sinus tachycardia with a rate of 122. She is currently on a combination of Rocephin and Flagyl. Labs from today shows a white cell count of 4.5 with a hemoglobin 12.8, BUN is still pending. Creatinine is pending. Serum bicarb is 18 and sodium levels of 135. Glucose at 133. Urine output to be monitored and the patient has approximately 100 mL in her [place] bag. Reevaluated today on 06/25/23, patient remains in the ICU, intubated and mechanically ventilated. She is on assist control rate of 24 tidal volume 400 FiO2 50% and PEEP of 5 ABG showed a pO2 of 107 pCO2 35 pH of 7.39. Patient is on propofol at 60 mcg/kg/m she is also on 0.9 normal saline at 1 50 mL per hour she is now off norepinephrine. Maintained on Zosyn for her peritonitis. Patient does have a baseline of CVA and mental health issues I am a bit reluctant to proceed to weaning and extubating the patient today, she went off norepinephrine earlier today, I plan to continue to monitor the patient and we will address weaning and possibly extubation in the next 24 hours. Chest x-ray showed no evidence of active disease. WBC count is 9.4 hemoglobin 11.5 basic metabolic profile is normal renal profile is normal blood sugar is 193 Patient was reevaluated today on 06/26/23, remains in the ICU intubated and mechanically ventilated. Patient is sedated, she is requiring propofol at 50 mg/kg/m. And she is frequently receiving Dilaudid for pain. She is on assist control rate of 24 tidal volume 400 FiO2 50% PEEP of 5 ABG showed a pO2 of 140 pCO2 34 pH of 7.46, hence her FiO2 was cut down to 40% and her rate was cut down to 20. Patient seems to be quite edematous hence a dose of Lasix was given today 40 mg IV push 1 and her IV fluid was cut down to 75 mL per hour patient remains on TPN. Her urine output is about 40 mL per hour. Patient remains empirically on Zosyn for her acute abdomen presentation. Labs today showed W set of 7.8 hemoglobin 9.6 platelets of 229 basic metabolic profile is normal renal profile is normal, chest x-ray showed right lower lobe atelectasis. Doubt pneumonia. Patient was reevaluated today on 06/27/23, patient was extubated yesterday, tolerated the extubation well however overnight the patient had extra work of breathing, she developed what seems to be almost stridor, unable to take a deep breath and unable to clear secretions, patient was given diuretics, bronchodilators, racemic epinephrine, but she responded well after she was placed on BiPAP. She is now on BiPAP, 10/5/50%, she is also on Precedex at 0.5 mcg/kg per hour. She is on TPN at 83 mL per hour patient is also receiving Zosyn. Continues to have functional colostomy with serosanguineous fluid noted in the colostomy bag and she has minimal drainage in the JG drain. Overall the patient is marginal, she is definitely critically ill, hopefully will not require reintubation. Will recommend follow-up ABG and follow-up chest x-ray this morning on this patient. In the meantime I'm recommending we'll continue BiPAP, and if her volumes become low to increase IPAP from 10-14. WC count today is 7.9 hemoglobin is 10, basic metabolic profile is normal except for potassium of 2.9 being addressed accordingly Objective - Vital Signs Vital signs: Vital Signs Temp 99.8 F H 06/27/23 08:00 Pulse 75 06/27/23 11:24 Resp 21 06/27/23 11:00 BP 122/83 06/27/23 04:00 Pulse Ox 97 06/27/23 11:00 FiO2 50 06/27/23 11:14 Intake & Output 06/26/23 06/27/23 06/27/23 18:59 06:59 18:59 Intake Total 2033.517 9895.288 7987.703 Output Total 3350 3985 675 Balance -1316.483 -2381.263 1465.703 Weight 87.3 kg Intake: IV 1610 1160 1007 Mvi, Adult No.4 with Vit 360 60 K 10 ml Trace (Conc-1Ml/ Dose) 1 ml In Amino Acid 5%-D15w 1,000 ml @ 30 mls /hr IV .Q24H [facility] Rx#: [id number] Mvi, Adult No.4 with Vit 332 K 10 ml Trace (Conc-1Ml/ Dose) 1 ml In Amino Acid 5%-D15w+Lytes*E* 1,000 ml @ 83 mls/hr IV .BY DURATION [facility] Rx#: [id number] Piperacillin-Tazobactam 3 200 200 100 .375 gm In Sodium Chloride 0.9% 100 ml @ 25 mls/hr IVPB Q8HR [facility] Rx# :[id number] Potassium Chloride 20 meq 200 In Water For Injection 1 100ml.bag @ 50 mls/hr IVPB Q2H [facility] Rx#: [id number] Sodium Chloride 0.9% 1, 1050 900 375 000 ml @ 75 mls/hr IV . [id number] [facility] Rx#:[id number] Intake, IV Titration 273.517 710.542 4347.703 Amount Dexmedetomidine/0.9% NaCl 28.737 64.386 (Pmx) 400 mcg In Empty Bag 1 bag @ 0.2 MCG/KG/HR 4.365 mls/hr IV .[id number] [facility] Rx#:[id number] Mvi, Adult No.4 with Vit 415 1069.317 K 10 ml Trace (Conc-1Ml/ Dose) 1 ml In Amino Acid 5%-D15w+Lytes*E* 1,000 ml @ 83 mls/hr IV .BY DURATION [facility] Rx#: [id number] Potassium Chloride 10 meq 200 In Water For Injection 1 100ml.bag @ 100 mls/hr IVPB Q1H [facility] Rx#: [id number] propofoL 1,000 mg In 73.517 Empty Bag 1 bag @ 15 MCG/ KG/MIN 7.065 mls/hr IV . [id number] [facility] Rx#:[id number] Other 150 Output: Gastric Drainage 150 Drainage 0 60 Left Lower Abdomen 0 Right Lower Abdomen 0 60 Urine 3200 3925 675 Other: Voiding Method Indwelling Catheter Indwelling Catheter ABP, PAP, CO, CI - Last Documented Arterial Blood Pressure 135/67 - Exam Physical Exam: Revealed a 53-year-old female , on BiPAP, not in distress, seems to be comfortable. Head: Atraumatic, normocephalic. HEENT:[Neck is supple.] [No neck masses.] [No thyromegaly.] [No JVD.] Chest: [Diminished breath sounds at the bases no rhonchi no wheezes Cardiac Exam: [Normal S1 and S2, no S3 gallop, no murmur.] Abdomen: [Soft, nontender, no megaly, no rebound, no guarding, colostomy seems to be functional. Negative bowel sounds. JG drain is noted, intact Extremities: [No clubbing, 2+ bipedal edema edema, no cyanosis.] Neurological Exam: Alert and oriented 3, no gross Focal deficit Psychiatric: Normal mood, flat affect and normal mental status examination\ In: No rashes - Labs CBC & Chem 7: 06/27/23 05:05 06/27/23 05:05 Labs: Abnormal Lab Results - Last 24 Hours (Table) 06/26/23 06/26/23 06/26/23 Range/Units 12:13 12:56 18:18 RBC (3.80-5.40) m/uL Hgb (11.4-16.0) gm/dL Hct (34.0-46.0) % Lymphocytes # (1.0-4.8) k/uL ABG pH 7.49 H (7.35-7.45) ABG pO2 (83-108) mmHg ABG HCO3 27 H (21-25) mmol/L ABG Total CO2 28 H (19-24) mmol/L ABG O2 Saturation 97.7 H (94-97) % Potassium (3.5-5.1) mmol/L Creatinine (0.52-1.04) mg/dL Glucose (74-99) mg/dL POC Glucose (mg/dL) 181 H 178 H (70-110) mg/dL Calcium (8.4-10.2) mg/dL 06/26/23 06/27/23 06/27/23 Range/Units 23:11 03:50 05:05 RBC 3.22 L (3.80-5.40) m/uL Hgb 10.0 L (11.4-16.0) gm/dL Hct 29.7 L (34.0-46.0) % Lymphocytes # 0.7 L (1.0-4.8) k/uL ABG pH 7.52 H (7.35-7.45) ABG pO2 75 L (83-108) mmHg ABG HCO3 30 H (21-25) mmol/L ABG Total CO2 31 H (19-24) mmol/L ABG O2 Saturation (94-97) % Potassium (3.5-5.1) mmol/L Creatinine (0.52-1.04) mg/dL Glucose (74-99) mg/dL POC Glucose (mg/dL) 166 H (70-110) mg/dL Calcium (8.4-10.2) mg/dL 06/27/23 06/27/23 Range/Units 05:05 05:25 RBC (3.80-5.40) m/uL Hgb (11.4-16.0) gm/dL Hct (34.0-46.0) % Lymphocytes # (1.0-4.8) k/uL ABG pH (7.35-7.45) ABG pO2 (83-108) mmHg ABG HCO3 (21-25) mmol/L ABG Total CO2 (19-24) mmol/L ABG O2 Saturation (94-97) % Potassium 2.9 L (3.5-5.1) mmol/L Creatinine 0.44 L (0.52-1.04) mg/dL Glucose 228 H (74-99) mg/dL POC Glucose (mg/dL) 248 H (70-110) mg/dL Calcium 7.4 L (8.4-10.2) mg/dL Microbiology - Last 24 Hours (Table) 06/24/23 08:30 Gram Stain - Final Abdomen Wound Culture - Final Escherichia coli Pseudomonas aeruginosa Nighat albicans Strep agalactiae - (group b) Assessment and Plan Assessment: Impression: Acute abdomen/anastomotic leak following a low anterior resection. The patient was taken to the operating room and the patient underwent an extensive laparotomy, partial omentectomy, colostomy formation of this; and closure of the rectal stump. The patient is postop day #3 Low anterior resection for diverticulitis and the patient is postop day #9 Acute hypoxic respiratory failure, extubated yesterday, but she did develop some stridor symptoms late night, placed on BiPAP and remains on BiPAP overnight Sinus tachycardia, could be related to intra-abdominal sepsis/Sirs acute diverticulitis Diabetes mellitus 2 Hypertension Hyperlipidemia History of CVA with expressive aphasia Previous history of DVT maintained on anticoagulation with Eliquis on outpatient basis. Currently off anticoagulants Recommendation: Continue BiPAP, adjust accordingly to maintain adequate tidal volume P chest x-ray and ABG this morning Continue antibiotics/Zosyn Cut down on Precedex Continue TPN Monitor sugars and use sliding scale coverage Continue pain control management Continue subcu heparin for DVT prophylaxis Continue GI prophylaxis Monitor output from the JG drain Monitor colostomy output Continue to monitor in the ICU Patient is critically ill Critical care time is over 30min Time with Patient: Greater than 30
--- NOTE | 2023-06-27 12:10 | XR ---
EXAMINATION TYPE: XR chest 1V portable DATE OF EXAM: 06/27/2023 12:04 PM COMPARISON: Chest radiographs from 06/27/2023 TECHNIQUE: XR chest 1V portable Portable AP radiograph of the chest. CLINICAL INDICATION:Female, 53 years old with history of sob; FINDINGS: Patient is rotated. Lungs/Pleura: Blunting of the right costophrenic angle. No focal consolidation or pneumothorax. Pulmonary vascularity: Unremarkable. Heart/mediastinum: Cardiomediastinal silhouette is prominent in size. Musculoskeletal: No acute osseous pathology. Other findings: None Lines/Tubes: Stable right IJ central venous catheter distal tip in the right atrium. Stable left NG tube with dist al tip in the stomach. Sidehole is at the GE junction. IMPRESSION: 1. Stable right IJ central venous catheter. 2. NG tube with sidehole at the GE junction. Recommend advancement of 5 cm. 3. Small right pleural effusion redemonstrated.
[2023-06-27 12:16] LABS: Glucose,Whole Blood 308 mg/dL (70-110)
--- NOTE | 2023-06-27 13:49 | P.PN ---
Subjective Progress Note Date: 06/27/23 CHIEF COMPLAINT: Diverticulitis HISTORY OF PRESENT ILLNESS: Patient currently ICU. She was extubated yesterday. She is currently on BiPAP. Patient is lethargic. She is on TPN for nutrition support. JG drain with 60ml serosanguineous output through the night. More serous in color. Ostomy nonfunctioning yet. Afebrile. WBC 7.9 Hgb 10 platelets 246 potassium 2.9 and being replaced She had diverticulitis with a lower anterior resection on 06/18/23. She then developed an anastomotic leak and required to be taken back to the OR on 06/24/2023. Patient is postop day #2 status post takedown of colorectal anastomosis with conversion to Ly's procedure and colostomy with close distal pouch for feculent peritonitis secondary to anastomotic leak. PHYSICAL EXAM: VITAL SIGNS: Reviewed. GENERAL: no acute distress. ABDOMEN: Soft. Distended. Incision packing intact. Ostomy on the left. Stoma dusky. Serosanguineous output in the colostomy bag. JG drain intact NEUROLOGIC: Lethargic ASSESSMENT: 1. Feculent peritonitis secondary to anastomotic leak status post reopening of laparotomy, lysis of adhesions. Takedown of colorectal anastomosis with conversion to Ly's procedure and colostomy 2. Diverticulitis and bilateral ovarian cysts PLAN: -Continue ICU management -Continue supportive care -Continue TPN for nutrition support -keep patient NPO -Continue antibiotics -DVT prophylaxis subcu heparin Physician Hand W[employer] Mender note has been reviewed by physician. Signing provider agrees with the documented findings, assessment, and plan of care. Objective - Vital Signs Vital signs: Vital Signs Temp 98.3 F 06/27/23 12:00 Pulse 68 06/27/23 13:00 Resp 31 H 06/27/23 13:00 BP 122/83 06/27/23 04:00 Pulse Ox 92 L 06/27/23 13:00 FiO2 50 06/27/23 12:00 Intake & Output 06/26/23 06/27/23 06/27/23 18:59 06:59 18:59 Intake Total 2033.517 5774.952 5491.703 Output Total 3350 3985 1025 Balance -1316.483 -2381.263 1431.703 Weight 87.3 kg Intake: IV 1610 1160 1323 Mvi, Adult No.4 with Vit 360 60 K 10 ml Trace (Conc-1Ml/ Dose) 1 ml In Amino Acid 5%-D15w 1,000 ml @ 30 mls /hr IV .Q24H [facility] Rx#: [id number] Mvi, Adult No.4 with Vit 498 K 10 ml Trace (Conc-1Ml/ Dose) 1 ml In Amino Acid 5%-D15w+Lytes*E* 1,000 ml @ 83 mls/hr IV .BY DURATION [facility] Rx#: [id number] Piperacillin-Tazobactam 3 200 200 100 .375 gm In Sodium Chloride 0.9% 100 ml @ 25 mls/hr IVPB Q8HR [facility] Rx# :[id number] Potassium Chloride 20 meq 200 In Water For Injection 1 100ml.bag @ 50 mls/hr IVPB Q2H [facility] Rx#: [id number] Sodium Chloride 0.9% 1, 1050 900 525 000 ml @ 75 mls/hr IV . [id number] [facility] Rx#:[id number] Intake, IV Titration 273.517 771.910 6480.703 Amount Dexmedetomidine/0.9% NaCl 28.737 64.386 (Pmx) 400 mcg In Empty Bag 1 bag @ 0.2 MCG/KG/HR 4.365 mls/hr IV .[id number] [facility] Rx#:[id number] Mvi, Adult No.4 with Vit 415 1069.317 K 10 ml Trace (Conc-1Ml/ Dose) 1 ml In Amino Acid 5%-D15w+Lytes*E* 1,000 ml @ 83 mls/hr IV .BY DURATION [facility] Rx#: [id number] Potassium Chloride 10 meq 200 In Water For Injection 1 100ml.bag @ 100 mls/hr IVPB Q1H [facility] Rx#: [id number] propofoL 1,000 mg In 73.517 Empty Bag 1 bag @ 15 MCG/ KG/MIN 7.065 mls/hr IV . [id number] [facility] Rx#:[id number] Other 150 Output: Gastric Drainage 150 Drainage 0 60 Left Lower Abdomen 0 Right Lower Abdomen 0 60 Urine 3200 3925 1025 Other: Voiding Method Indwelling Catheter Indwelling Catheter ABP, PAP, CO, CI - Last Documented Arterial Blood Pressure 134/67 - Labs CBC & Chem 7: 06/27/23 05:05 06/27/23 05:05 Labs: Abnormal Lab Results - Last 24 Hours (Table) 06/26/23 06/26/23 06/27/23 Range/Units 18:18 23:11 03:50 RBC (3.80-5.40) m/uL Hgb (11.4-16.0) gm/dL Hct (34.0-46.0) % Lymphocytes # (1.0-4.8) k/uL ABG pH 7.52 H (7.35-7.45) ABG pCO2 (35-45) mmHg ABG pO2 75 L (83-108) mmHg ABG HCO3 30 H (21-25) mmol/L ABG Total CO2 31 H (19-24) mmol/L ABG O2 Saturation (94-97) % Potassium (3.5-5.1) mmol/L Creatinine (0.52-1.04) mg/dL Glucose (74-99) mg/dL POC Glucose (mg/dL) 178 H 166 H (70-110) mg/dL Calcium (8.4-10.2) mg/dL 06/27/23 06/27/23 06/27/23 Range/Units 05:05 05:05 05:25 RBC 3.22 L (3.80-5.40) m/uL Hgb 10.0 L (11.4-16.0) gm/dL Hct 29.7 L (34.0-46.0) % Lymphocytes # 0.7 L (1.0-4.8) k/uL ABG pH (7.35-7.45) ABG pCO2 (35-45) mmHg ABG pO2 (83-108) mmHg ABG HCO3 (21-25) mmol/L ABG Total CO2 (19-24) mmol/L ABG O2 Saturation (94-97) % Potassium 2.9 L (3.5-5.1) mmol/L Creatinine 0.44 L (0.52-1.04) mg/dL Glucose 228 H (74-99) mg/dL POC Glucose (mg/dL) 248 H (70-110) mg/dL Calcium 7.4 L (8.4-10.2) mg/dL 06/27/23 06/27/23 Range/Units 11:45 12:14 RBC (3.80-5.40) m/uL Hgb (11.4-16.0) gm/dL Hct (34.0-46.0) % Lymphocytes # (1.0-4.8) k/uL ABG pH 7.53 H (7.35-7.45) ABG pCO2 33 L (35-45) mmHg ABG pO2 59 L* (83-108) mmHg ABG HCO3 28 H (21-25) mmol/L ABG Total CO2 29 H (19-24) mmol/L ABG O2 Saturation 93.3 L (94-97) % Potassium (3.5-5.1) mmol/L Creatinine (0.52-1.04) mg/dL Glucose (74-99) mg/dL POC Glucose (mg/dL) 308 H (70-110) mg/dL Calcium (8.4-10.2) mg/dL Microbiology - Last 24 Hours (Table) 06/24/23 08:30 Anaerobic Culture - Final Peritoneal Fluid Anaerobic Gm Negative Bacilli Anaerobic Gm Negative Bacilli#2 06/24/23 08:30 Gram Stain - Final Abdomen Wound Culture - Final Escherichia coli Pseudomonas aeruginosa Nighat albicans Strep agalactiae - (group b)
[2023-06-27] MEDS: NOREPINEPHRINE 8 MG in SODIUM CHLORIDE 0.9% 250 ML IV SCH (16:09)
--- NOTE | 2023-06-27 16:15 | P.PN ---
Subjective Progress Note Date: 06/27/23 his is a pleasant 53 years old femalepresents with diverticulitis and bilateral ovarian cyst. She status post low anterior resection with bilateral ovarian cystectomy and partial omentectomy. sHe tolerates diet well, abdominal pain is minimal. She had little watery bowel movement yesterday. Eliquis was started hemodynamically stable and labs were reviewed 06/23/2023 Patient is seen and examined by me at bedside. Patient had increasing abdominal pain and distention. I discussed the case with the staff were discussed with surgery team as well who were following the case closely. Surgical team ordered abdominal x-ray which showed large pneumo peritoneal larger than expected for postop day. Then they ordered a CT of the abdomen and pelvis which showed free air present within the abdomen. With ascites. Patient was taken for emergent exploratory laparotomy and possible bowel resection and after the procedure patient was taken to the ICU. Patient was started on antibiotic with Flagyl and ceftriaxone as well as aggressive hydration with normal saline 100 mL per hour. Blood pressure improved and with systolic was 140-160. Patient was on room air saturating about 95%. She had low-grade temperature in the morning of 99.9. Showing WBCs of 8.4, hemoglobin 12.9. Platelet count 221. Creatinine is 0.6. Glucose controlled. Electrolytes within the normal. 06/24/2023 patient yesterday she had worsening abdominal pain and distention. Surgery team will follow closely. Several images were requested showing free air, And patient eventually was taken to the operation room As per surgery team patient underwent (Reopening of laparotomy, lysis of adhesions. Takedown of colorectal anastomosis with conversion to Ly's procedure i.e. and colostomy with closed distal pouch) and it was feculent material in the peritoneal cavity secondary to anastomotic breakdown. Patient was placed on antibiotics. Currently her antibiotics were changed to Zosyn to cover both gram-negative and in microvolts. Patient currently in the ICU sedated and intubated on mechanical ventilation. Her abdomen is less distended and left lower colostomy back in place. Her blood pressure was on the low side she received 2 doses of normal saline bolus of 1 L each. Also she was placed on small dose of pressors. Patient remains tachycardic and tachypneic and she had a fever of 103 this morning Lactic acid is elevated at 2.7, came back to normal at 1.6 CBC, BMP and liver enzymes were unremarkable. Except for mildly elevated ALT and low elbow made. Chest x-ray from this morning showing atelectasis. Case was discussed with pulmonary/critical care. 06/25/2023 pt is sedated and intubated and pulmonary critical care team help with the vent managment , pt had uneventful night , she was on less levophed dose in the morning than yesterday, her pressor was discontinued later, her bp improved through the day and systolic bp 120-130 she has soft abdomen and colostomy back is empty only from little serosanguinous fluid wbc is 9.4, hb 11.5, platelet is normal her eliquis is still on hold , and dvt px is machical now till cleared by surgery she is on zosyn, fever subsided , no leukocytosis , and pt is started on TPN at 30 ml per hr 06/26/2023 Patient is still intubated and sedated in the ICU with pulmonary team help with mechanical ventilation management Propofol may be discontinued soon to help her mentation. Chest lungs have mild leukocytosis. She still has mild fever 99.8, tachypneic and tachycardic but she is improving slowly and gradually. She is On TPN at 30 ML/H, Normal Saline at 50 ML and Zosyn. Blood Culture Also Growing Sensitive Pseudomonas and E. coli with Nighat 06/27/2023 Patient is seen and evaluated and follow-up maintained on BiPAP with multiple medical consultations following. Patient was successfully extubated yesterday and continues to be extremely lethargic. Patient was maintained on Precedex as well as TPN and currently nothing by mouth. Patient had developed an anastomotic leak and taken back to the OR on June 24 and underwent takedown of colorectal anastomosis with conversion to Ly's procedure and colostomy. Patient is continued on antibiotics in the form of Zosyn as well and culture showing preliminary anaerobic gram-negative bacilli and abdominal wound was showing E. coli with pseudomonas aeruginosa along with Nighat and strep group B. Cultures also showing Nighat and will add Diflucan. Potassium 2.9 and will replace per protocol and also recommend replacing magnesium which is currently 1.8. Blood sugars appear slightly more elevated and will add low-dose long- acting and monitor closely Review of systems: Unable to obtain as patient is lethargic and was continued on Precedex Physical exam: GENERAL: The patient is asleep, somewhat arousable although very lethargic, maintained on BiPAP with an FiO2 of 50% HEENT: Pupils are round and equally reacting to light. EOMI. No scleral icterus. No conjunctival pallor. Normocephalic, atraumatic. No pharyngeal erythema. No thyromegaly. CARDIOVASCULAR: S1 and S2 muffled PULMONARY: Chest is clear to auscultation, no wheezing , no crackles. ABDOMEN: Soft, periumbilical tenderness , no guarding or rebound tenderness, distended, normoactive bowel sounds. No palpable organomegaly. surgical wound is healing. Colostomy bag in place MUSCULOSKELETAL: No joint swelling or deformity. EXTREMITIES: No cyanosis, clubbing, or pedal edema. NEUROLOGICAL: Gross neurological examination did not reveal any focal deficits. Diffusely weak SKIN: No rashes. no petechiae. Assessment: Acute abdomen secondary to breakdown of anastomosis status post takedown of colorectal anastomosis with conversion to Ly's procedure and end colostomy septic shock secondary to intra-abdominal infection, improving Hypokalemia Elevated lactic acid secondary to an anastomotic leak with fecal matter Acute hypoxic respiratory failure secondary to above requiring intubation and mechanical ventilation, status post extubation currently maintained on BiPAP acute diverticulitis status post low anterior resection of the colon (06/18) Ovarian cyst status post bilateral ovarian cystectomy Worsening pneumo-peritoneam requiring exploratory laparotomy and bowel resection history of DVT Diabetes mellitus, uncontrolled with hyperglycemia Hypertension Hyperlipidemia History of CVA GI prophylaxis DVT prophylaxis Full code Plan: Continue Zosyn as cultures are showing Pseudomonas, E. coli, strep group B, Nighat and will add Diflucan as well Continue with potassium and electrolyte replacement per protocol Patient is extubated and currently maintained on BiPAP Continue TPN with nothing by mouth per surgery Blood sugars are more elevated and will continue ICU protocol and TPN protocol and will add low-dose long-acting as blood sugars are more elevated today Surgical management as per surgery team keep patient nothing by mouth now , continue TPN Prognosis is guarded Thank you kindly for this consultation. We will continue to follow with general surgery during hospitalization. The impression and plan of care has been dictated by Jennifer Thakkar, Nurse Practitioner as directed. Dr. Leydi MD I have performed a history and examination and MDM of this patient, discussed the same with the dictator, and agree with the dictator's assessment and plan as written ,documented as a scribe. Based on total visit time, I have performed more than 50% of the visit. Objective - Vital Signs Vital signs: Vital Signs Temp 98.5 F 06/27/23 03:00 Pulse 77 06/27/23 08:19 Resp 12 06/27/23 07:00 BP 122/83 06/27/23 04:00 Pulse Ox 95 06/27/23 07:00 FiO2 50 06/27/23 08:06 Intake & Output 06/26/23 06/27/23 06/27/23 18:59 06:59 18:59 Intake Total 2033.517 1603.737 158 Output Total 3350 3985 100 Balance -1316.483 -2381.263 58 Weight 87.3 kg Intake: IV 1610 1160 75 Mvi, Adult No.4 with Vit 360 60 K 10 ml Trace (Conc-1Ml/ Dose) 1 ml In Amino Acid 5%-D15w 1,000 ml @ 30 mls /hr IV .Q24H [facility] Rx#: [id number] Piperacillin-Tazobactam 3 200 200 .375 gm In Sodium Chloride 0.9% 100 ml @ 25 mls/hr IVPB Q8HR [facility] Rx# :[id number] Sodium Chloride 0.9% 1, 1050 900 75 000 ml @ 75 mls/hr IV . [id number] [facility] Rx#:[id number] Intake, IV Titration 273.517 443.737 83 Amount Dexmedetomidine/0.9% NaCl 28.737 (Pmx) 400 mcg In Empty Bag 1 bag @ 0.2 MCG/KG/HR 4.365 mls/hr IV .[id number] [facility] Rx#:[id number] Mvi, Adult No.4 with Vit 415 83 K 10 ml Trace (Conc-1Ml/ Dose) 1 ml In Amino Acid 5%-D15w+Lytes*E* 1,000 ml @ 83 mls/hr IV .BY DURATION [facility] Rx#: [id number] Potassium Chloride 10 meq 200 In Water For Injection 1 100ml.bag @ 100 mls/hr IVPB Q1H [facility] Rx#: [id number] propofoL 1,000 mg In 73.517 Empty Bag 1 bag @ 15 MCG/ KG/MIN 7.065 mls/hr IV . [id number] [facility] Rx#:[id number] Other 150 Output: Gastric Drainage 150 Drainage 0 60 Left Lower Abdomen 0 Right Lower Abdomen 0 60 Urine 3200 3925 100 Other: Voiding Method Indwelling Catheter Indwelling Catheter ABP, PAP, CO, CI - Last Documented Arterial Blood Pressure 98/52 - Labs CBC & Chem 7: 06/27/23 05:05 06/27/23 05:05 Labs: Abnormal Lab Results - Last 24 Hours (Table) 06/26/23 06/26/23 06/26/23 Range/Units 06:00 12:13 12:56 RBC (3.80-5.40) m/uL Hgb (11.4-16.0) gm/dL Hct (34.0-46.0) % Lymphocytes # (1.0-4.8) k/uL ABG pH 7.49 H (7.35-7.45) ABG pO2 (83-108) mmHg ABG HCO3 27 H (21-25) mmol/L ABG Total CO2 28 H (19-24) mmol/L ABG O2 Saturation 97.7 H (94-97) % Potassium (3.5-5.1) mmol/L Creatinine (0.52-1.04) mg/dL Glucose (74-99) mg/dL POC Glucose (mg/dL) 181 H (70-110) mg/dL Calcium (8.4-10.2) mg/dL Triglycerides 543.00 H (0.00-149.00) mg/dL 06/26/23 06/26/23 06/27/23 Range/Units 18:18 23:11 03:50 RBC (3.80-5.40) m/uL Hgb (11.4-16.0) gm/dL Hct (34.0-46.0) % Lymphocytes # (1.0-4.8) k/uL ABG pH 7.52 H (7.35-7.45) ABG pO2 75 L (83-108) mmHg ABG HCO3 30 H (21-25) mmol/L ABG Total CO2 31 H (19-24) mmol/L ABG O2 Saturation (94-97) % Potassium (3.5-5.1) mmol/L Creatinine (0.52-1.04) mg/dL Glucose (74-99) mg/dL POC Glucose (mg/dL) 178 H 166 H (70-110) mg/dL Calcium (8.4-10.2) mg/dL Triglycerides (0.00-149.00) mg/dL 06/27/23 06/27/23 06/27/23 Range/Units 05:05 05:05 05:25 RBC 3.22 L (3.80-5.40) m/uL Hgb 10.0 L (11.4-16.0) gm/dL Hct 29.7 L (34.0-46.0) % Lymphocytes # 0.7 L (1.0-4.8) k/uL ABG pH (7.35-7.45) ABG pO2 (83-108) mmHg ABG HCO3 (21-25) mmol/L ABG Total CO2 (19-24) mmol/L ABG O2 Saturation (94-97) % Potassium 2.9 L (3.5-5.1) mmol/L Creatinine 0.44 L (0.52-1.04) mg/dL Glucose 228 H (74-99) mg/dL POC Glucose (mg/dL) 248 H (70-110) mg/dL Calcium 7.4 L (8.4-10.2) mg/dL Triglycerides (0.00-149.00) mg/dL Microbiology - Last 24 Hours (Table) 06/24/23 08:30 Gram Stain - Preliminary Abdomen Wound Culture - Preliminary Escherichia coli Pseudomonas aeruginosa Nighat albicans
[2023-06-27] MEDS: FLUCONAZOLE IN NACL,ISO-OSM 100 MG in SALINE 1 50ML.BAG IVPB SCH (16:57)
[2023-06-27] MEDS: CLEVIDIPINE BUTYRATE 25 MG in EMPTY BAG 1 BAG IV SCH (18:03)
[2023-06-27 18:17] LABS: Glucose,Whole Blood 380 mg/dL (70-110)
[2023-06-27] MEDS: INSULIN DETEMIR (LEVEMIR) 100 UNIT/ML SYR SQ SCH (20:36)
[2023-06-27] MEDS: diphenhydrAMINE 50 MG/ML 1 ML VIAL IVP PRN (20:37)
[2023-06-27 21:18] LABS: Glucose,Whole Blood 435 mg/dL (70-110)
[2023-06-27 23:28] LABS: Glucose,Whole Blood 376 mg/dL (70-110)
[2023-06-28] MEDS: DEXMEDETOMIDINE/0.9% NACL(PMX) 400 MCG in EMPTY BAG 1 BAG IV SCH (00:21)
[2023-06-28] MEDS: SODIUM CHLORIDE 0.9% 1,000 ML IV SCH ×2 (00:28→00:45)
[2023-06-28] MEDS: MORPHINE SULFATE 4 MG/ML SYRINGE IVP PRN ×9 (03:35→21:41)
[2023-06-28] MEDS: diphenhydrAMINE 50 MG/ML 1 ML VIAL IVP PRN (03:35)
[2023-06-28] MEDS: CLEVIDIPINE BUTYRATE 25 MG in EMPTY BAG 1 BAG IV SCH ×3 (04:24→21:39)
[2023-06-28 05:57] LABS: Glucose,Whole Blood 254 mg/dL (70-110)
[2023-06-28] MEDS: INSULIN ASPART (NovoLOG) 100 UNIT/ML VIAL SQ SCH ×3 (06:02→18:07)
[2023-06-28 06:26] LABS: Basophils % (A) 0 %; Eosinophils % (A) 0 %; HCT 28.3 % (34.0-46.0); HGB 9.4 gm/dL (11.4-16.0); Lymphocytes # (A) 0.9 k/uL (1.0-4.8); Lymphocytes % (A) 10 %; MCH 30.6 pg (25.0-35.0); MCHC 33.1 g/dL (31.0-37.0); MCV 92.2 fL (80.0-100.0); Monocytes # (A) 0.7 k/uL (0-1.0); Monocytes % (A) 7 %; Neutrophils # (A) 7.4 k/uL (1.3-7.7); Neutrophils % (A) 79 %; Platelet Count 262 k/uL (150-450); RBC 3.07 m/uL (3.80-5.40); RDW 14.1 % (11.5-15.5); WBC 9.3 k/uL (3.8-10.6)
[2023-06-28 06:48] LABS: African American GFR (CKD) >90 (>60 ml/min/1.73 sqM); Anion Gap 9 mmol/L; Blood Urea Nitrogen 27 mg/dL (7-17); Calcium 8.1 mg/dL (8.4-10.2); Carbon Dioxide 25 mmol/L (22-30); Chloride 106 mmol/L (98-107); Glucose 234 mg/dL (74-99); Non-African American GFR(CKD) >90 (>60 ml/min/1.73 sqM); Phosphorus 3.9 mg/dL (2.5-4.5); Potassium 3.7 mmol/L (3.5-5.1); Sodium 140 mmol/L (137-145)
--- NOTE | 2023-06-28 07:38 | XR ---
EXAMINATION TYPE: XR chest 1V portable DATE OF EXAM: 06/28/2023 6:35 AM CLINICAL INDICATION:Female, 53 years old with history of right pleural effusion; COMPARISON: 06/23/2023. TECHNIQUE: XR chest 1V portable Frontal view of the chest. FINDINGS: Lungs/Pleura: There is an elevated right diaphragm no pleural effusion within the visualized. There i s no evidence of pleural effusion, focal consolidation, or pneumothorax. Pulmonary vascularity: Unremarkable. Heart/mediastinum: Cardiomediastinal silhouette is unremarkable. Musculoskeletal: No acute osseous pathology. Other findings: None Lines/Tubes: Nasogastric tube with its distal tip and side-port projecting under the diaphragm. Right internal jugular central venous catheter with distal tip at the right atrium versus under the d iaphragm. IMPRESSION: 1. Elevated Right diaphragm no significant pleural effusion visualized. 2. No acute cardiopulmonary disease/process. 3. Right central venous catheter with tip projecting in the right atrium versus inferior vena cava m edially
[2023-06-28] MEDS: IPRATROPIUM-ALBUTEROL 3 ML NEB INHALATION SCH ×4 (07:55→20:05)
[2023-06-28] MEDS: PANTOPRAZOLE 40 MG/10 ML VIAL IVP SCH ×2 (08:07→21:40)
[2023-06-28] MEDS: PIPERACILLIN-TAZOBACTAM 3.375 GM in SODIUM CHLORIDE 0.9% 100 ML IVPB SCH ×2 (08:07→16:30)
[2023-06-28] MEDS: INSULIN DETEMIR (LEVEMIR) 100 UNIT/ML SYR SQ SCH (08:07)
[2023-06-28] MEDS: HEPARIN SODIUM,PORCINE 5,000 UNIT/ML 1 ML VIAL SQ SCH ×2 (08:07→21:40)
[2023-06-28] MEDS: 1: MVI, ADULT NO.4 WITH VIT K 10 ML, TRACE (CONC-1ML/DOSE) 1 ML in AMINO ACID 5%-D15W+LY IV SCH ×12 (09:26→21:40)
[2023-06-28] MEDS: POTASSIUM CHLORIDE 10 MEQ in WATER FOR INJECTION 1 100ML.BAG IVPB SCH ×2 (09:53→10:59)
[2023-06-28] MEDS ORDERED: POTASSIUM CHLORIDE 20 MEQ in WATER FOR INJECTION 1 100ML.BAG IVPB ONE (10:00)
[2023-06-28] MEDS: cloNIDine 0.3 MG/24HR PATCH TRANSDERM SCH (10:03)
[2023-06-28] MEDS ORDERED: INSULIN DETEMIR (LEVEMIR) 100 UNIT/ML SYR SQ ONE (10:30)
[2023-06-28] MEDS: NOREPINEPHRINE 8 MG in SODIUM CHLORIDE 0.9% 250 ML IV SCH (10:37)
--- NOTE | 2023-06-28 11:13 | P.PN ---
Subjective Progress Note Date: 06/28/23 CHIEF COMPLAINT: Diverticulitis HISTORY OF PRESENT ILLNESS: Patient currently ICU. She is currently off BiPAP and on nasal cannula. Patient is more awake today. She is off the Precedex. Ostomy is functioning with a small amount of stool present. Her pain is controlled. Denies any nausea. Afebrile. WBC 9.3 Hgb 9.4 platelets 262 sodium 140 potassium 3.7 creatinine 0.53 JG drain minimal serosanguineous output She had diverticulitis with a lower anterior resection on 06/18/23. She then developed an anastomotic leak and required to be taken back to the OR on 06/24/2023. Patient is postop day #2 status post takedown of colorectal anastomosis with conversion to Ly's procedure and colostomy with close distal pouch for feculent peritonitis secondary to anastomotic leak. PHYSICAL EXAM: VITAL SIGNS: Reviewed. GENERAL: no acute distress. ABDOMEN: Soft. Distended. Incision packing intact. Ostomy on the left with stool present. NEUROLOGIC: Lethargic ASSESSMENT: 1. Feculent peritonitis secondary to anastomotic leak status post reopening of laparotomy, lysis of adhesions. Takedown of colorectal anastomosis with conversion to Ly's procedure and colostomy 2. Diverticulitis and bilateral ovarian cysts PLAN: -Continue ICU management -Continue supportive care -Continue local wound care. Patient followed by wound care service -Continue TPN for nutrition support -keep patient NPO -Continue antibiotics -DVT prophylaxis subcu heparin Physician [employer] Representative note has been reviewed by physician. Signing provider agrees with the documented findings, assessment, and plan of care. Objective - Vital Signs Vital signs: Vital Signs Temp 99.0 F 06/28/23 08:00 Pulse 86 06/28/23 11:00 Resp 32 H 06/28/23 11:00 BP 162/83 06/28/23 09:00 Pulse Ox 80 L 06/28/23 11:00 FiO2 90 06/28/23 11:00 Intake & Output 06/27/23 06/28/23 06/28/23 18:59 06:59 18:59 Intake Total 3431.530 2744.879 757 Output Total 1830 1685 1705 Balance 1601.530 289.879 -948 Weight 84.3 kg Intake: IV 2213 1723 757 Amino Acid 5%-D15w+Lytes* 166 E* 1,000 ml @ 83 mls/hr IV .BY DURATION [facility] Rx#: [id number] Mvi, Adult No.4 with Vit 913 498 166 K 10 ml Trace (Conc-1Ml/ Dose) 1 ml In Amino Acid 5%-D15w+Lytes*E* 1,000 ml @ 83 mls/hr IV .BY DURATION [facility] Rx#: [id number] Piperacillin-Tazobactam 3 200 100 75 .375 gm In Sodium Chloride 0.9% 100 ml @ 25 mls/hr IVPB Q8HR [facility] Rx# :[id number] Potassium Chloride 10 meq 200 In Water For Injection 1 100ml.bag @ 100 mls/hr IVPB Q1H [facility] Rx#: [id number] Potassium Chloride 20 meq 200 In Water For Injection 1 100ml.bag @ 50 mls/hr IVPB Q2H [facility] Rx#: [id number] Sodium Chloride 0.9% 1, 900 1125 150 000 ml @ 75 mls/hr IV . [id number] [facility] Rx#:[id number] Intake, IV Titration 1789.757 9363.879 Amount Amino Acid 5%-D15w+Lytes* 1000 E* 1,000 ml @ 83 mls/hr IV .BY DURATION [facility] Rx#: [id number] Clevidipine Butyrate 25 19.951 mg In Empty Bag 1 bag @ 1 MG/HR 2 mls/hr IV .Q24H [facility] Rx#:[id number] Dexmedetomidine/0.9% NaCl 149.213 1.928 (Pmx) 400 mcg In Empty Bag 1 bag @ 0.2 MCG/KG/HR 4.365 mls/hr IV .[id number] [facility] Rx#:[id number] Mvi, Adult No.4 with Vit 1069.317 K 10 ml Trace (Conc-1Ml/ Dose) 1 ml In Amino Acid 5%-D15w+Lytes*E* 1,000 ml @ 83 mls/hr IV .BY DURATION [facility] Rx#: [id number] Output: Drainage 20 Left Lower Abdomen 20 Urine 1810 2455 1705 Other: Voiding Method Indwelling Catheter Indwelling Catheter Indwelling Catheter ABP, PAP, CO, CI - Last Documented Arterial Blood Pressure 139/65 - Labs CBC & Chem 7: 06/28/23 05:45 06/28/23 05:45 Labs: Abnormal Lab Results - Last 24 Hours (Table) 06/27/23 06/27/23 06/27/23 Range/Units 11:45 12:14 18:16 RBC (3.80-5.40) m/uL Hgb (11.4-16.0) gm/dL Hct (34.0-46.0) % Lymphocytes # (1.0-4.8) k/uL ABG pH 7.53 H (7.35-7.45) ABG pCO2 33 L (35-45) mmHg ABG pO2 59 L* (83-108) mmHg ABG HCO3 28 H (21-25) mmol/L ABG Total CO2 29 H (19-24) mmol/L ABG O2 Saturation 93.3 L (94-97) % BUN (7-17) mg/dL Glucose (74-99) mg/dL POC Glucose (mg/dL) 308 H 380 H (70-110) mg/dL Calcium (8.4-10.2) mg/dL 06/27/23 06/27/23 06/28/23 Range/Units 21:16 23:25 05:45 RBC (3.80-5.40) m/uL Hgb (11.4-16.0) gm/dL Hct (34.0-46.0) % Lymphocytes # (1.0-4.8) k/uL ABG pH (7.35-7.45) ABG pCO2 (35-45) mmHg ABG pO2 (83-108) mmHg ABG HCO3 (21-25) mmol/L ABG Total CO2 (19-24) mmol/L ABG O2 Saturation (94-97) % BUN 27 H (7-17) mg/dL Glucose 234 H (74-99) mg/dL POC Glucose (mg/dL) 435 H 376 H (70-110) mg/dL Calcium 8.1 L (8.4-10.2) mg/dL 06/28/23 06/28/23 Range/Units 05:45 05:54 RBC 3.07 L (3.80-5.40) m/uL Hgb 9.4 L (11.4-16.0) gm/dL Hct 28.3 L (34.0-46.0) % Lymphocytes # 0.9 L (1.0-4.8) k/uL ABG pH (7.35-7.45) ABG pCO2 (35-45) mmHg ABG pO2 (83-108) mmHg ABG HCO3 (21-25) mmol/L ABG Total CO2 (19-24) mmol/L ABG O2 Saturation (94-97) % BUN (7-17) mg/dL Glucose (74-99) mg/dL POC Glucose (mg/dL) 254 H (70-110) mg/dL Calcium (8.4-10.2) mg/dL Microbiology - Last 24 Hours (Table) 06/24/23 08:30 Anaerobic Culture - Final Peritoneal Fluid Anaerobic Gm Negative Bacilli Anaerobic Gm Negative Bacilli#2 06/24/23 08:30 Gram Stain - Final Abdomen Wound Culture - Final Escherichia coli Pseudomonas aeruginosa Nighat albicans Strep agalactiae - (group b)
[2023-06-28 11:46] LABS: Glucose,Whole Blood 324 mg/dL (70-110)
--- NOTE | 2023-06-28 12:12 | P.PN ---
Subjective Progress Note Date: 06/28/23 Principal diagnosis: Acute abdomen with anastomotic leak following low anterior resection, status post reopening of laparotomy, lysis of adhesions takedown of colorectal anastomosis with conversion to Ly's procedure and colostomy with closed distal pouch This is a 53-year-old female patient was undergone a low anterior resection for diverticulitis and the patient is postop day #6. The patient overnight was having abdominal discomfort along with some intermittent chills. No reported fever. She was not passing any flatus and she had no bowel movement for the past 24 hours. The abdomen was protruded and was also tender. The patient had a white cell count of 6.9 with a hemoglobin of 11 and a platelet count of 206. The patient was seen by the on-call surgeon and the patient had a CAT scan of the abdomen and pelvis that showed free air in the abdomen without any extravasation of contrast. There was ascites and subcutaneous seroma involving the anterior pelvis. Based on that, the patient was taken back to the operating room by Bishnu Hurst surgeon and the patient underwent a laparotomy, partial omentectomy and colostomy formation and closure of the rectal stump. The patient was told to have anastomotic leak. Patient arrived today intensive care following her surgery. She is currently on assist control mode at the rate of 14, tidal volume of 400, FiO2 is at 100% with a PEEP of 5. She arrived to the ICU 9 AM this morning. The patient is on no sedatives for now. She is on IV fluids with 75 mL of normal saline. She has a JG drain in the right lower quadrant Doppler being serosanguineous. She has a colostomy in her left lower quadrant. She is hemodynamically stable. No hypotension. Cardiac rhythm is sinus tachycardia with a rate of 122. She is currently on a combination of Rocephin and Flagyl. Labs from today shows a white cell count of 4.5 with a hemoglobin 12.8, BUN is still pending. Creatinine is pending. Serum bicarb is 18 and sodium levels of 135. Glucose at 133. Urine output to be monitored and the patient has approximately 100 mL in her [place] bag. Reevaluated today on 06/25/23, patient remains in the ICU, intubated and mechanically ventilated. She is on assist control rate of 24 tidal volume 400 FiO2 50% and PEEP of 5 ABG showed a pO2 of 107 pCO2 35 pH of 7.39. Patient is on propofol at 60 mcg/kg/m she is also on 0.9 normal saline at 1 50 mL per hour she is now off norepinephrine. Maintained on Zosyn for her peritonitis. Patient does have a baseline of CVA and mental health issues I am a bit reluctant to proceed to weaning and extubating the patient today, she went off norepinephrine earlier today, I plan to continue to monitor the patient and we will address weaning and possibly extubation in the next 24 hours. Chest x-ray showed no evidence of active disease. WBC count is 9.4 hemoglobin 11.5 basic metabolic profile is normal renal profile is normal blood sugar is 193 Patient was reevaluated today on 06/26/23, remains in the ICU intubated and mechanically ventilated. Patient is sedated, she is requiring propofol at 50 mg/kg/m. And she is frequently receiving Dilaudid for pain. She is on assist control rate of 24 tidal volume 400 FiO2 50% PEEP of 5 ABG showed a pO2 of 140 pCO2 34 pH of 7.46, hence her FiO2 was cut down to 40% and her rate was cut down to 20. Patient seems to be quite edematous hence a dose of Lasix was given today 40 mg IV push 1 and her IV fluid was cut down to 75 mL per hour patient remains on TPN. Her urine output is about 40 mL per hour. Patient remains empirically on Zosyn for her acute abdomen presentation. Labs today showed W set of 7.8 hemoglobin 9.6 platelets of 229 basic metabolic profile is normal renal profile is normal, chest x-ray showed right lower lobe atelectasis. Doubt pneumonia. Patient was reevaluated today on 06/27/23, patient was extubated yesterday, tolerated the extubation well however overnight the patient had extra work of breathing, she developed what seems to be almost stridor, unable to take a deep breath and unable to clear secretions, patient was given diuretics, bronchodilators, racemic epinephrine, but she responded well after she was placed on BiPAP. She is now on BiPAP, 10/5/50%, she is also on Precedex at 0.5 mcg/kg per hour. She is on TPN at 83 mL per hour patient is also receiving Zosyn. Continues to have functional colostomy with serosanguineous fluid noted in the colostomy bag and she has minimal drainage in the JG drain. Overall the patient is marginal, she is definitely critically ill, hopefully will not require reintubation. Will recommend follow-up ABG and follow-up chest x-ray this morning on this patient. In the meantime I'm recommending we'll continue BiPAP, and if her volumes become low to increase IPAP from 10-14. WC count today is 7.9 hemoglobin is 10, basic metabolic profile is normal except for potassium of 2.9 being addressed accordingly Reevaluated today on 06/28/23, patient remains in the ICU, patient was on BiPAP through the night, earlier this morning the patient was transitioned to nasal cannula. She is on 6 L high flow nasal cannula, O2 saturation is in the mid 90s. Patient was on Precedex yesterday, however she became bradycardic and hypotensive patient required clevidipine, and we have discontinued her Precedex at night. She is now on clevidipine for milligrams per hour patient is more awake today compared to the last 2 days, she is following instructions, appropriate but she had difficulty coughing and cannot clear much of her secretions she seems to gag rather than cough. Patient is also on TPN at 83 mL per hour remains on Zosyn. Today I am recommending aggressive incentive spirometry and the general surgery staff to evaluate her colostomy, patient has open sutures around the site. Although her colostomy seems to be functional. Patient denies any pain denies any shortness of breath CBC is relatively normal hemoglobin is 9.4 WBC count is 9.3 basic metabolic profile is normal and renal profile is normal, chest x-ray showed minimal right basilar atelectasis, right diaphragm elevation, otherwise unremarkable Objective - Vital Signs Vital signs: Vital Signs Temp 99.0 F 06/28/23 08:00 Pulse 86 06/28/23 11:00 Resp 32 H 06/28/23 11:00 BP 162/83 06/28/23 09:00 Pulse Ox 80 L 06/28/23 11:00 FiO2 90 06/28/23 11:00 Intake & Output 06/27/23 06/28/23 06/28/23 18:59 06:59 18:59 Intake Total 3431.530 2744.879 757 Output Total 1830 2455 1705 Balance 1601.530 289.879 -948 Weight 84.3 kg 84.3 kg Intake: IV 2213 1723 757 Amino Acid 5%-D15w+Lytes* 166 E* 1,000 ml @ 83 mls/hr IV .BY DURATION [facility] Rx#: [id number] Mvi, Adult No.4 with Vit 913 498 166 K 10 ml Trace (Conc-1Ml/ Dose) 1 ml In Amino Acid 5%-D15w+Lytes*E* 1,000 ml @ 83 mls/hr IV .BY DURATION [facility] Rx#: [id number] Piperacillin-Tazobactam 3 200 100 75 .375 gm In Sodium Chloride 0.9% 100 ml @ 25 mls/hr IVPB Q8HR [facility] Rx# :[id number] Potassium Chloride 10 meq 200 In Water For Injection 1 100ml.bag @ 100 mls/hr IVPB Q1H [facility] Rx#: [id number] Potassium Chloride 20 meq 200 In Water For Injection 1 100ml.bag @ 50 mls/hr IVPB Q2H [facility] Rx#: [id number] Sodium Chloride 0.9% 1, 900 1125 150 000 ml @ 75 mls/hr IV . [id number] [facility] Rx#:[id number] Intake, IV Titration 3476.187 5818.879 Amount Amino Acid 5%-D15w+Lytes* 1000 E* 1,000 ml @ 83 mls/hr IV .BY DURATION [facility] Rx#: [id number] Clevidipine Butyrate 25 19.951 mg In Empty Bag 1 bag @ 1 MG/HR 2 mls/hr IV .Q24H [facility] Rx#:[id number] Dexmedetomidine/0.9% NaCl 149.213 1.928 (Pmx) 400 mcg In Empty Bag 1 bag @ 0.2 MCG/KG/HR 4.365 mls/hr IV .[id number] [facility] Rx#:[id number] Mvi, Adult No.4 with Vit 1069.317 K 10 ml Trace (Conc-1Ml/ Dose) 1 ml In Amino Acid 5%-D15w+Lytes*E* 1,000 ml @ 83 mls/hr IV .BY DURATION [facility] Rx#: [id number] Output: Drainage 20 Left Lower Abdomen 20 Urine 1810 2455 1705 Other: Voiding Method Indwelling Catheter Indwelling Catheter Indwelling Catheter ABP, PAP, CO, CI - Last Documented Arterial Blood Pressure 139/65 - Exam Physical Exam: Revealed a 53-year-old female , 6 L high flow nasal cannula awake, alert and oriented Head: Atraumatic, normocephalic. HEENT:[Neck is supple.] [No neck masses.] [No thyromegaly.] [No JVD.] Chest: [Symmetrical chest expansion, clear bilaterally no rhonchi and no wheezes Cardiac Exam: [Normal S1 and S2, no S3 gallop, no murmur.] Abdomen: [Soft, nontender, no megaly, no rebound, no guarding, colostomy seems to be functional. Open sutures noted Negative bowel sounds. JG drain is noted, intact Extremities: [No clubbing, 2+ bipedal edema edema, no cyanosis.] Neurological Exam: Alert and oriented 3, no gross Focal deficit Psychiatric: Normal mood, flat affect and normal mental status examination\patient had difficulty with coughing and could not have a strong cough, patient is gagging instead. In: No rashes - Labs CBC & Chem 7: 06/28/23 05:45 06/28/23 05:45 Labs: Abnormal Lab Results - Last 24 Hours (Table) 06/27/23 06/27/23 06/27/23 Range/Units 12:14 18:16 21:16 RBC (3.80-5.40) m/uL Hgb (11.4-16.0) gm/dL Hct (34.0-46.0) % Lymphocytes # (1.0-4.8) k/uL BUN (7-17) mg/dL Glucose (74-99) mg/dL POC Glucose (mg/dL) 308 H 380 H 435 H (70-110) mg/dL Calcium (8.4-10.2) mg/dL 06/27/23 06/28/23 06/28/23 Range/Units 23:25 05:45 05:45 RBC 3.07 L (3.80-5.40) m/uL Hgb 9.4 L (11.4-16.0) gm/dL Hct 28.3 L (34.0-46.0) % Lymphocytes # 0.9 L (1.0-4.8) k/uL BUN 27 H (7-17) mg/dL Glucose 234 H (74-99) mg/dL POC Glucose (mg/dL) 376 H (70-110) mg/dL Calcium 8.1 L (8.4-10.2) mg/dL 06/28/23 06/28/23 Range/Units 05:54 11:44 RBC (3.80-5.40) m/uL Hgb (11.4-16.0) gm/dL Hct (34.0-46.0) % Lymphocytes # (1.0-4.8) k/uL BUN (7-17) mg/dL Glucose (74-99) mg/dL POC Glucose (mg/dL) 254 H 324 H (70-110) mg/dL Calcium (8.4-10.2) mg/dL Microbiology - Last 24 Hours (Table) 06/24/23 08:30 Anaerobic Culture - Final Peritoneal Fluid Anaerobic Gm Negative Bacilli Anaerobic Gm Negative Bacilli#2 06/24/23 08:30 Gram Stain - Final Abdomen Wound Culture - Final Escherichia coli Pseudomonas aeruginosa Nighat albicans Strep agalactiae - (group b) Assessment and Plan Assessment: Impression: Acute abdomen/anastomotic leak following a low anterior resection. The patient was taken to the operating room and the patient underwent an extensive laparotomy, partial omentectomy, colostomy formation of this; and closure of the rectal stump. The patient is postop day #4 Low anterior resection for diverticulitis and the patient is postop day number Acute hypoxic respiratory failure, extubated 2 days ago, required BiPAP for the last 36 hours, presently on nasal cannula Sinus tachycardia, resolved Bradycardia secondary to Precedex which has been discontinued acute diverticulitis Diabetes mellitus 2 Hypertension Hyperlipidemia History of CVA with expressive aphasia Previous history of DVT maintained on anticoagulation with Eliquis on outpatient basis. Currently off anticoagulants, will resume once cleared by surgery to go back on anticoagulations Poorly controlled blood pressure patient is requiring clevidipine,, will apply and clonidine patch and hopefully discontinue the drip. Recommendation: Continue to monitor in the ICU Continue incentive spirometry Continue antibiotics/Zosyn Discontinue Precedex Clonidine patch and hopefully discontinued clevidipine Continue TPN Monitor sugars and use sliding scale coverage Continue pain control management Continue subcu heparin for DVT prophylaxis, restart oral anticoagulations therapy once cleared by surgery Continue GI prophylaxis Monitor output from the JG drain Monitor colostomy output, being addressed by general surgery on the case Continue to monitor in the ICU for now Time with Patient: Less than 30
[2023-06-28] MEDS: FAT EMULSION 20% 250 ML IV SCH (14:40)
[2023-06-28] MEDS: FLUCONAZOLE IN NACL,ISO-OSM 100 MG in SALINE 1 50ML.BAG IVPB SCH (15:21)
[2023-06-28 17:56] LABS: Glucose,Whole Blood 335 mg/dL (70-110)
[2023-06-28] MEDS ORDERED: INSULIN DETEMIR (LEVEMIR) 100 UNIT/ML SYR SQ SCH (21:00)
[2023-06-29 00:02] LABS: Glucose,Whole Blood 361 mg/dL (70-110)
[2023-06-29] MEDS: PIPERACILLIN-TAZOBACTAM 3.375 GM in SODIUM CHLORIDE 0.9% 100 ML IVPB SCH ×3 (00:10→17:48)
[2023-06-29] MEDS: MORPHINE SULFATE 4 MG/ML SYRINGE IVP PRN ×4 (00:11→08:14)
[2023-06-29] MEDS: INSULIN ASPART (NovoLOG) 100 UNIT/ML VIAL SQ SCH ×4 (00:17→17:48)
[2023-06-29] MEDS: diphenhydrAMINE 50 MG/ML 1 ML VIAL IVP PRN (02:25)
[2023-06-29 04:34] LABS: African American GFR (CKD) >90 (>60 ml/min/1.73 sqM); Anion Gap 7 mmol/L; Blood Urea Nitrogen 23 mg/dL (7-17); Calcium 8.1 mg/dL (8.4-10.2); Carbon Dioxide 25 mmol/L (22-30); Chloride 101 mmol/L (98-107); Glucose 339 mg/dL (74-99); Magnesium 1.8 mg/dL (1.6-2.3); Non-African American GFR(CKD) >90 (>60 ml/min/1.73 sqM); Potassium 3.4 mmol/L (3.5-5.1); Sodium 133 mmol/L (137-145)
[2023-06-29 04:38] LABS: Basophils # (A) 0.1 k/uL (0-0.2); Basophils % (A) 0 %; Eosinophils % (A) 0 %; HCT 33.5 % (34.0-46.0); HGB 11.3 gm/dL (11.4-16.0); Lymphocytes # (A) 1.1 k/uL (1.0-4.8); Lymphocytes % (A) 10 %; MCH 30.6 pg (25.0-35.0); MCHC 33.7 g/dL (31.0-37.0); MCV 90.8 fL (80.0-100.0); Mean Platelet Volume 8.4; Monocytes # (A) 0.5 k/uL (0-1.0); Monocytes % (A) 4 %; Neutrophils # (A) 9.3 k/uL (1.3-7.7); Neutrophils % (A) 84 %; Platelet Count 315 k/uL (150-450); RBC 3.68 m/uL (3.80-5.40); RDW 14.1 % (11.5-15.5); WBC 11.1 k/uL (3.8-10.6)
--- NOTE | 2023-06-29 05:30 | P.PN ---
Subjective Progress Note Date: 06/28/23 his is a pleasant 53 years old femalepresents with diverticulitis and bilateral ovarian cyst. She status post low anterior resection with bilateral ovarian cystectomy and partial omentectomy. sHe tolerates diet well, abdominal pain is minimal. She had little watery bowel movement yesterday. Eliquis was started hemodynamically stable and labs were reviewed 06/23/2023 Patient is seen and examined by me at bedside. Patient had increasing abdominal pain and distention. I discussed the case with the staff were discussed with surgery team as well who were following the case closely. Surgical team ordered abdominal x-ray which showed large pneumo peritoneal larger than expected for postop day. Then they ordered a CT of the abdomen and pelvis which showed free air present within the abdomen. With ascites. Patient was taken for emergent exploratory laparotomy and possible bowel resection and after the procedure patient was taken to the ICU. Patient was started on antibiotic with Flagyl and ceftriaxone as well as aggressive hydration with normal saline 100 mL per hour. Blood pressure improved and with systolic was 140-160. Patient was on room air saturating about 95%. She had low-grade temperature in the morning of 99.9. Showing WBCs of 8.4, hemoglobin 12.9. Platelet count 221. Creatinine is 0.6. Glucose controlled. Electrolytes within the normal. 06/24/2023 patient yesterday she had worsening abdominal pain and distention. Surgery team will follow closely. Several images were requested showing free air, And patient eventually was taken to the operation room As per surgery team patient underwent (Reopening of laparotomy, lysis of adhesions. Takedown of colorectal anastomosis with conversion to Ly's procedure i.e. and colostomy with closed distal pouch) and it was feculent material in the peritoneal cavity secondary to anastomotic breakdown. Patient was placed on antibiotics. Currently her antibiotics were changed to Zosyn to cover both gram-negative and in microvolts. Patient currently in the ICU sedated and intubated on mechanical ventilation. Her abdomen is less distended and left lower colostomy back in place. Her blood pressure was on the low side she received 2 doses of normal saline bolus of 1 L each. Also she was placed on small dose of pressors. Patient remains tachycardic and tachypneic and she had a fever of 103 this morning Lactic acid is elevated at 2.7, came back to normal at 1.6 CBC, BMP and liver enzymes were unremarkable. Except for mildly elevated ALT and low elbow made. Chest x-ray from this morning showing atelectasis. Case was discussed with pulmonary/critical care. 06/25/2023 pt is sedated and intubated and pulmonary critical care team help with the vent managment , pt had uneventful night , she was on less levophed dose in the morning than yesterday, her pressor was discontinued later, her bp improved through the day and systolic bp 120-130 she has soft abdomen and colostomy back is empty only from little serosanguinous fluid wbc is 9.4, hb 11.5, platelet is normal her eliquis is still on hold , and dvt px is machical now till cleared by surgery she is on zosyn, fever subsided , no leukocytosis , and pt is started on TPN at 30 ml per hr 06/26/2023 Patient is still intubated and sedated in the ICU with pulmonary team help with mechanical ventilation management Propofol may be discontinued soon to help her mentation. Chest lungs have mild leukocytosis. She still has mild fever 99.8, tachypneic and tachycardic but she is improving slowly and gradually. She is On TPN at 30 ML/H, Normal Saline at 50 ML and Zosyn. Blood Culture Also Growing Sensitive Pseudomonas and E. coli with Nighat 06/27/2023 Patient is seen and evaluated and follow-up maintained on BiPAP with multiple medical consultations following. Patient was successfully extubated yesterday and continues to be extremely lethargic. Patient was maintained on Precedex as well as TPN and currently nothing by mouth. Patient had developed an anastomotic leak and taken back to the OR on June 24 and underwent takedown of colorectal anastomosis with conversion to Ly's procedure and colostomy. Patient is continued on antibiotics in the form of Zosyn as well and culture showing preliminary anaerobic gram-negative bacilli and abdominal wound was showing E. coli with pseudomonas aeruginosa along with Nighat and strep group B. Cultures also showing Nighat and will add Diflucan. Potassium 2.9 and will replace per protocol and also recommend replacing magnesium which is currently 1.8. Blood sugars appear slightly more elevated and will add low-dose long- acting and monitor closely 06/28/2023 Patient is seen in follow-up in the ICU currently on high flow airvo and off BiPAP. Patient continues on TPN Precedex is often patient is a little more awake today. Patient is on Cleviprex and as patient remains nothing by mouth and home blood pressure medications have been on hold. Per nursing staff there is some stool starting in the ostomy. Blood sugars have been elevated and will increase the dose of long-acting and continue sliding scale. Patient is afebrile maintained on antibiotics with fluconazole. Patient is reporting a lot of pain and discomfort in the abdomen. A.m. labs pending at this time. Review of systems: Constitutional: reports of fatigue, no fever, or chills Cardiovascular: No reports of chest pain or palpitations Respiratory: reports of shortness of breath GI: No reports of nausea, vomiting, or diarrhea, reports continued abdominal pain : No reports of dysuria or retention Neurovascular: reports of generalized weakness and swelling of upper lower extremities All medications have been reviewed Physical exam: GENERAL: The patient is more awake today although fatigues easily, maintained on high flow airvo HEENT: Pupils are round and equally reacting to light. EOMI. No scleral icterus. No conjunctival pallor. Normocephalic, atraumatic. No pharyngeal erythema. No t hyromegaly. CARDIOVASCULAR: S1 and S2 muffled PULMONARY:Diminished breath sounds bilaterally with some scattered faint crackles noted, no wheezing coarse rhonchi ABDOMEN: Soft, periumbilical tenderness ,tenderness, distended, normoactive bowel sounds. No palpable organomegaly. surgical wounddressing currently intact. Colostomy bag with stool noted MUSCULOSKELETAL: No joint swelling or deformity. EXTREMITIES: No cyanosis, clubbing, or pedal edema. Generalized edema noted. Lower extremities non-pitting NEUROLOGICAL: Gross neurological examination did not reveal any focal deficits. Diffusely weak SKIN: No rashes. no petechiae. Assessment: Acute abdomen secondary to breakdown of anastomosis status post takedown of colorectal anastomosis with conversion to Ly's procedure and end colostomy septic shock secondary to intra-abdominal infection, improving Hypokalemia Elevated lactic acid secondary to an anastomotic leak with fecal matter Acute hypoxic respiratory failure secondary to above requiring intubation and mechanical ventilation, status post extubation currently maintained on high flow airvo acute diverticulitis status post low anterior resection of the colon (06/18) Ovarian cyst status post bilateral ovarian cystectomy Worsening pneumo-peritoneam requiring exploratory laparotomy and bowel resection history of DVT Diabetes mellitus, uncontrolled with hyperglycemia Hypertension Hyperlipidemia History of CVA GI prophylaxis DVT prophylaxis Full code Plan: Continue Zosyn as cultures are showing Pseudomonas, E. coli, strep group B, Can dida and will continue Diflucan as well Continue with potassium and electrolyte replacement per protocol Patient is extubated and currently maintained off BiPAPAnd now transitioned to high flow airvo Continue TPN with nothing by mouth per surgery Blood sugars are more elevated and will continue ICU protocol and TPN protocol and will increase long-acting as blood sugars are more elevated today Surgical management as well as pain management per surgery team keep patient nothing by mouth now , continue TPN Prognosis is guarded Thank you kindly for this consultation. We will continue to follow with general surgery during hospitalization. The impression and plan of care has been dictated by Jennifer Thakkar, Nurse Practitioner as directed. Dr. Leydi MD I have performed a history and examination and MDM of this patient, discussed the same with the dictator, and agree with the dictator's assessment and plan as written ,documented as a scribe. Based on total visit time, I have performed more than 50% of the visit. Objective - Vital Signs Vital signs: Vital Signs Temp 97.8 F 06/29/23 04:00 Pulse 77 06/29/23 05:00 Resp 20 06/29/23 05:00 BP 153/90 06/29/23 04:00 Pulse Ox 92 L 06/29/23 05:00 FiO2 60 06/29/23 04:35 Intake & Output 06/28/23 06/28/23 06/29/23 06:59 18:59 06:59 Intake Total 2744.879 2877.173 1250.2 Output Total 2455 3815 2850 Balance 289.879 -937.827 -1599.8 Weight 84.3 kg 84.3 kg 80.4 kg Intake: IV 1723 1817.0 1225.2 Amino Acid 5%-D15w+Lytes* 747 913 E* 1,000 ml @ 90 mls/hr IV .BY DURATION [facility] Rx#: [id number] Fat Emulsion 20% 250 ml @ 104.0 187.2 20.833 mls/hr IV MoTh@ 1400 [facility] Rx#:[id number] Mvi, Adult No.4 with Vit 498 166 K 10 ml Trace (Conc-1Ml/ Dose) 1 ml In Amino Acid 5%-D15w+Lytes*E* 1,000 ml @ 90 mls/hr IV .BY DURATION [facility] Rx#: [id number] Piperacillin-Tazobactam 3 100 150 125 .375 gm In Sodium Chloride 0.9% 100 ml @ 25 mls/hr IVPB Q8HR [facility] Rx# :[id number] Potassium Chloride 10 meq 200 In Water For Injection 1 100ml.bag @ 100 mls/hr IVPB Q1H [facility] Rx#: [id number] Sodium Chloride 0.9% 1, 1125 450 000 ml @ 75 mls/hr IV . [id number] [facility] Rx#:[id number] Intake, IV Titration 7264.307 5133.173 25.0 Amount Amino Acid 5%-D15w+Lytes* 1000 E* 1,000 ml @ 90 mls/hr IV .BY DURATION [facility] Rx#: [id number] Clevidipine Butyrate 25 19.951 49.173 25.0 mg In Empty Bag 1 bag @ 1 MG/HR 2 mls/hr IV .Q24H [facility] Rx#:[id number] Dexmedetomidine/0.9% NaCl 1.928 (Pmx) 400 mcg In Empty Bag 1 bag @ 0.2 MCG/KG/HR 4.365 mls/hr IV .[id number] [facility] Rx#:[id number] Mvi, Adult No.4 with Vit 1011 K 10 ml Trace (Conc-1Ml/ Dose) 1 ml In Amino Acid 5%-D15w+Lytes*E* 1,000 ml @ 90 mls/hr IV .BY DURATION [facility] Rx#: [id number] Output: Urine 2455 3815 2850 Other: Voiding Method Indwelling Catheter Indwelling Catheter Indwelling Catheter ABP, PAP, CO, CI - Last Documented Arterial Blood Pressure 154/71 - Labs CBC & Chem 7: 06/29/23 04:05 06/29/23 04:05 Labs: Abnormal Lab Results - Last 24 Hours (Table) 06/28/23 06/28/23 06/28/23 Range/Units 05:45 05:45 05:54 WBC (3.8-10.6) k/uL RBC 3.07 L (3.80-5.40) m/uL Hgb 9.4 L (11.4-16.0) gm/dL Hct 28.3 L (34.0-46.0) % Neutrophils # (1.3-7.7) k/uL Lymphocytes # 0.9 L (1.0-4.8) k/uL Sodium (137-145) mmol/L Potassium (3.5-5.1) mmol/L BUN 27 H (7-17) mg/dL Creatinine (0.52-1.04) mg/dL Glucose 234 H (74-99) mg/dL POC Glucose (mg/dL) 254 H (70-110) mg/dL Calcium 8.1 L (8.4-10.2) mg/dL 06/28/23 06/28/23 06/29/23 Range/Units 11:44 17:54 00:00 WBC (3.8-10.6) k/uL RBC (3.80-5.40) m/uL Hgb (11.4-16.0) gm/dL Hct (34.0-46.0) % Neutrophils # (1.3-7.7) k/uL Lymphocytes # (1.0-4.8) k/uL Sodium (137-145) mmol/L Potassium (3.5-5.1) mmol/L BUN (7-17) mg/dL Creatinine (0.52-1.04) mg/dL Glucose (74-99) mg/dL POC Glucose (mg/dL) 324 H 335 H 361 H (70-110) mg/dL Calcium (8.4-10.2) mg/dL 06/29/23 06/29/23 Range/Units 04:05 04:05 WBC 11.1 H (3.8-10.6) k/uL RBC 3.68 L (3.80-5.40) m/uL Hgb 11.3 L (11.4-16.0) gm/dL Hct 33.5 L (34.0-46.0) % Neutrophils # 9.3 H (1.3-7.7) k/uL Lymphocytes # (1.0-4.8) k/uL Sodium 133 L (137-145) mmol/L Potassium 3.4 L (3.5-5.1) mmol/L BUN 23 H (7-17) mg/dL Creatinine 0.46 L (0.52-1.04) mg/dL Glucose 339 H (74-99) mg/dL POC Glucose (mg/dL) (70-110) mg/dL Calcium 8.1 L (8.4-10.2) mg/dL
[2023-06-29] MEDS ORDERED: HYDROmorphone 1 MG/ML 1 ML SYRINGE IVP STA (05:31)
[2023-06-29] MEDS ORDERED: MAGNESIUM SULFATE-D5W PMX 1 GM in DEXTROSE/WATER 1 100ML.BAG IVPB ONE (05:33)
[2023-06-29] MEDS: POTASSIUM CHLORIDE 20 MEQ in WATER FOR INJECTION 1 100ML.BAG IVPB SCH ×3 (05:56→23:16)
[2023-06-29 06:03] LABS: Glucose,Whole Blood 294 mg/dL (70-110)
[2023-06-29] MEDS: SODIUM CHLORIDE 0.9% 1,000 ML IV SCH (06:12)
[2023-06-29] MEDS ORDERED: INSULIN DETEMIR (LEVEMIR) 100 UNIT/ML SYR SQ SCH (07:00)
[2023-06-29] MEDS: PANTOPRAZOLE 40 MG/10 ML VIAL IVP SCH ×2 (08:16→20:48)
[2023-06-29] MEDS: HEPARIN SODIUM,PORCINE 5,000 UNIT/ML 1 ML VIAL SQ SCH ×2 (08:16→20:46)
[2023-06-29] MEDS: IPRATROPIUM-ALBUTEROL 3 ML NEB INHALATION SCH ×4 (08:23→19:43)
[2023-06-29] MEDS: 1: MVI, ADULT NO.4 WITH VIT K 10 ML, TRACE (CONC-1ML/DOSE) 1 ML in AMINO ACID 5%-D15W+LY IV SCH ×3 (08:56)
[2023-06-29] MEDS: HYDROmorphone 1 MG/ML 1 ML SYRINGE IVP PRN ×4 (09:40→20:47)
--- NOTE | 2023-06-29 10:36 | P.PN ---
Subjective Progress Note Date: 06/29/23 CHIEF COMPLAINT: Diverticulitis HISTORY OF PRESENT ILLNESS: Patient currently ICU. She had diverticulitis with a lower anterior resection on 06/18/23. She then developed an anastomotic leak and required to be taken back to the OR on 06/24/2023. Patient is postop day #5 status post takedown of colorectal anastomosis with conversion to Ly's procedure and colostomy with close distal pouch for feculent peritonitis secondary to anastomotic leak. Patient is currently on Airvo. Patient having abdominal pain. Pain is not controlled with the morphine. Ostomy is functioning with stool and air. No nausea or vomiting. She is on TPN for nutrition support. Afebrile. WBC is up from 9.3-11.1 Hgb 11.3 platelets 3:15 sodium 133 potassium 3.4 creatinine 0.46 glucose elevated to 94 JG drain with minimal serosanguineous output Patient seen and examined with Dr. cary PHYSICAL EXAM: VITAL SIGNS: Reviewed. GENERAL: no acute distress. ABDOMEN: Soft. Distended. Incisional dressing clean dry and intact. Ostomy with stool and air present. NEUROLOGIC: more Awake and alert ASSESSMENT: 1. Feculent peritonitis secondary to anastomotic leak status post reopening of laparotomy, lysis of adhesions. Takedown of colorectal anastomosis with conversion to Ly's procedure and colostomy 2. Diverticulitis and bilateral ovarian cysts 3. Hypokalemia PLAN: -Discontinue IV morphine and add IV Dilaudid 1 mg every 3 hours as needed for pain and 0.5 mg every 3 hours as needed for pain -Add IV Toradol scheduled for pain control -Consult PT OT -Consult social work for discharge planning and ECF placement -Consult ostomy nurse for ostomy care because of new colostomy -Continue local wound care. Patient followed by wound care service -Continue TPN for nutrition support -keep patient NPO because of pain -Continue antibiotics -Potassium being replaced -DVT prophylaxis subcu heparin Physician Chemical Checker note has been reviewed by physician. Signing provider agrees with the documented findings, assessment, and plan of care. Objective - Vital Signs Vital signs: Vital Signs Temp 97.8 F 06/29/23 04:00 Pulse 74 06/29/23 08:33 Resp 12 06/29/23 07:00 BP 150/93 06/29/23 07:00 Pulse Ox 95 06/29/23 08:23 FiO2 51 06/29/23 08:23 Intake & Output 06/28/23 06/29/23 06/29/23 18:59 06:59 18:59 Intake Total 2877.173 2469.5 404 Output Total 3815 3075 425 Balance -937.827 -605.5 -21 Weight 84.3 kg 80.4 kg Intake: IV 1817.0 1408.2 404 Amino Acid 5%-D15w+Lytes* 747 996 249 E* 1,000 ml @ 90 mls/hr IV .BY DURATION NICOLETTE Rx#: [id number] Fat Emulsion 20% 250 ml @ 104.0 187.2 20.833 mls/hr IV MoTh@ 1400 NICO[facility]TTE Rx#:[id number] Mvi, Adult No.4 with Vit 166 K 10 ml Trace (Conc-1Ml/ Dose) 1 ml In Amino Acid 5%-D15w+Lytes*E* 1,000 ml @ 90 mls/hr IV .BY DURATION NICOLETTE Rx#: [id number] Piperacillin-Tazobactam 3 150 125 50 .375 gm In Sodium Chloride 0.9% 100 ml @ 25 mls/hr IVPB Q8HR NICO[facility]E Rx# :[id number] Potassium Chloride 10 meq 200 100 100 In Water For Injection 1 100ml.bag @ 100 mls/hr IVPB Q1H N[facility]E Rx#: [id number] Sodium Chloride 0.9% 1, 450 5 000 ml @ 75 mls/hr IV . [id number] [facility] Rx#:[id number] Intake, IV Titration 1110.699 8818.3 Amount Amino Acid 5%-D15w+Lytes* 1000 E* 1,000 ml @ 90 mls/hr IV .BY DURATION NICOLETTE Rx#: [id number] Clevidipine Butyrate 25 49.173 61.3 mg In Empty Bag 1 bag @ 1 MG/HR 2 mls/hr IV .Q24H NICO[facility]TTE Rx#:[id number] Mvi, Adult No.4 with Vit 1011 K 10 ml Trace (Conc-1Ml/ Dose) 1 ml In Amino Acid 5%-D15w+Lytes*E* 1,000 ml @ 90 mls/hr IV .BY DURATION NICOLETTE Rx#: [id number] Output: Urine 7494 2745 425 Other: Voiding Method Indwelling Catheter Indwelling Catheter ABP, PAP, CO, CI - Last Documented Arterial Blood Pressure 152/73 - Labs CBC & Chem 7: 06/29/23 04:05 06/29/23 04:05 Labs: Abnormal Lab Results - Last 24 Hours (Table) 06/28/23 06/28/23 06/29/23 Range/Units 11:44 17:54 00:00 WBC (3.8-10.6) k/uL RBC (3.80-5.40) m/uL Hgb (11.4-16.0) gm/dL Hct (34.0-46.0) % Neutrophils # (1.3-7.7) k/uL Sodium (137-145) mmol/L Potassium (3.5-5.1) mmol/L BUN (7-17) mg/dL Creatinine (0.52-1.04) mg/dL Glucose (74-99) mg/dL POC Glucose (mg/dL) 324 H 335 H 361 H (70-110) mg/dL Calcium (8.4-10.2) mg/dL 06/29/23 06/29/23 06/29/23 Range/Units 04:05 04:05 06:02 WBC 11.1 H (3.8-10.6) k/uL RBC 3.68 L (3.80-5.40) m/uL Hgb 11.3 L (11.4-16.0) gm/dL Hct 33.5 L (34.0-46.0) % Neutrophils # 9.3 H (1.3-7.7) k/uL Sodium 133 L (137-145) mmol/L Potassium 3.4 L (3.5-5.1) mmol/L BUN 23 H (7-17) mg/dL Creatinine 0.46 L (0.52-1.04) mg/dL Glucose 339 H (74-99) mg/dL POC Glucose (mg/dL) 294 H (70-110) mg/dL Calcium 8.1 L (8.4-10.2) mg/dL
--- NOTE | 2023-06-29 11:40 | P.PN ---
Subjective Progress Note Date: 06/29/23 Principal diagnosis: Acute abdomen with anastomotic leak following low anterior resection, status post reopening of laparotomy, lysis of adhesions takedown of colorectal anastomosis with conversion to Ly's procedure and colostomy with closed distal pouch This is a 53-year-old female patient was undergone a low anterior resection for diverticulitis and the patient is postop day #6. The patient overnight was having abdominal discomfort along with some intermittent chills. No reported fever. She was not passing any flatus and she had no bowel movement for the past 24 hours. The abdomen was protruded and was also tender. The patient had a white cell count of 6.9 with a hemoglobin of 11 and a platelet count of 206. The patient was seen by the on-call surgeon and the patient had a CAT scan of the abdomen and pelvis that showed free air in the abdomen without any extravasation of contrast. There was ascites and subcutaneous seroma involving the anterior pelvis. Based on that, the patient was taken back to the operating room by Bishnu Hurst surgeon and the patient underwent a laparotomy, partial omentectomy and colostomy formation and closure of the rectal stump. The patient was told to have anastomotic leak. Patient arrived today intensive care following her surgery. She is currently on assist control mode at the rate of 14, tidal volume of 400, FiO2 is at 100% with a PEEP of 5. She arrived to the ICU 9 AM this morning. The patient is on no sedatives for now. She is on IV fluids with 75 mL of normal saline. She has a JG drain in the right lower quadrant Doppler being serosanguineous. She has a colostomy in her left lower quadrant. She is hemodynamically stable. No hypotension. Cardiac rhythm is sinus tachycardia with a rate of 122. She is currently on a combination of Rocephin and Flagyl. Labs from today shows a white cell count of 4.5 with a hemoglobin 12.8, BUN is still pending. Creatinine is pending. Serum bicarb is 18 and sodium levels of 135. Glucose at 133. Urine output to be monitored and the patient has approximately 100 mL in her [place] bag. Reevaluated today on 06/25/23, patient remains in the ICU, intubated and mechanically ventilated. She is on assist control rate of 24 tidal volume 400 FiO2 50% and PEEP of 5 ABG showed a pO2 of 107 pCO2 35 pH of 7.39. Patient is on propofol at 60 mcg/kg/m she is also on 0.9 normal saline at 1 50 mL per hour she is now off norepinephrine. Maintained on Zosyn for her peritonitis. Patient does have a baseline of CVA and mental health issues I am a bit reluctant to proceed to weaning and extubating the patient today, she went off norepinephrine earlier today, I plan to continue to monitor the patient and we will address weaning and possibly extubation in the next 24 hours. Chest x-ray showed no evidence of active disease. WBC count is 9.4 hemoglobin 11.5 basic metabolic profile is normal renal profile is normal blood sugar is 193 Patient was reevaluated today on 06/26/23, remains in the ICU intubated and mechanically ventilated. Patient is sedated, she is requiring propofol at 50 mg/kg/m. And she is frequently receiving Dilaudid for pain. She is on assist control rate of 24 tidal volume 400 FiO2 50% PEEP of 5 ABG showed a pO2 of 140 pCO2 34 pH of 7.46, hence her FiO2 was cut down to 40% and her rate was cut down to 20. Patient seems to be quite edematous hence a dose of Lasix was given today 40 mg IV push 1 and her IV fluid was cut down to 75 mL per hour patient remains on TPN. Her urine output is about 40 mL per hour. Patient remains empirically on Zosyn for her acute abdomen presentation. Labs today showed W set of 7.8 hemoglobin 9.6 platelets of 229 basic metabolic profile is normal renal profile is normal, chest x-ray showed right lower lobe atelectasis. Doubt pneumonia. Patient was reevaluated today on 06/27/23, patient was extubated yesterday, tolerated the extubation well however overnight the patient had extra work of breathing, she developed what seems to be almost stridor, unable to take a deep breath and unable to clear secretions, patient was given diuretics, bronchodilators, racemic epinephrine, but she responded well after she was placed on BiPAP. She is now on BiPAP, 10/5/50%, she is also on Precedex at 0.5 mcg/kg per hour. She is on TPN at 83 mL per hour patient is also receiving Zosyn. Continues to have functional colostomy with serosanguineous fluid noted in the colostomy bag and she has minimal drainage in the JG drain. Overall the patient is marginal, she is definitely critically ill, hopefully will not require reintubation. Will recommend follow-up ABG and follow-up chest x-ray this morning on this patient. In the meantime I'm recommending we'll continue BiPAP, and if her volumes become low to increase IPAP from 10-14. WC count today is 7.9 hemoglobin is 10, basic metabolic profile is normal except for potassium of 2.9 being addressed accordingly Reevaluated today on 06/28/23, patient remains in the ICU, patient was on BiPAP through the night, earlier this morning the patient was transitioned to nasal cannula. She is on 6 L high flow nasal cannula, O2 saturation is in the mid 90s. Patient was on Precedex yesterday, however she became bradycardic and hypotensive patient required clevidipine, and we have discontinued her Precedex at night. She is now on clevidipine for milligrams per hour patient is more awake today compared to the last 2 days, she is following instructions, appropriate but she had difficulty coughing and cannot clear much of her secretions she seems to gag rather than cough. Patient is also on TPN at 83 mL per hour remains on Zosyn. Today I am recommending aggressive incentive spirometry and the general surgery staff to evaluate her colostomy, patient has open sutures around the site. Although her colostomy seems to be functional. Patient denies any pain denies any shortness of breath CBC is relatively normal hemoglobin is 9.4 WBC count is 9.3 basic metabolic profile is normal and renal profile is normal, chest x-ray showed minimal right basilar atelectasis, right diaphragm elevation, otherwise unremarkable Reevaluated today on 06/29/23, patient remains in the ICU, still requiring clevidipine at 1 mg/h. She was placed on aerosol last night with 50% FiO2 and 55 L flow. Patient seems to be doing well she seems to be generally weak, have abdominal pain seems to be fairly well controlled with Dilaudid and Toradol. Patient continues to have good urine output, she is intermittently laced on BiPAP 14/6/50%. Patient has good output from her ostomy. And the plan today is to transfer the patient out of the bed to a bedside chair. And hopefully ambulate. Remains on clevidipine, she is also on TPN, fluconazole and Zosyn. WBC count is 11.1 hemoglobin 11.3 basic metabolic profile is normal and renal profile is normal Objective - Vital Signs Vital signs: Vital Signs Temp 99.0 F 06/29/23 08:00 Pulse 77 06/29/23 11:00 Resp 27 H 06/29/23 11:00 BP 150/89 06/29/23 11:00 Pulse Ox 96 06/29/23 11:00 FiO2 51 06/29/23 08:23 Intake & Output 06/28/23 06/29/23 06/29/23 18:59 06:59 18:59 Intake Total 2877.173 2469.5 630 Output Total 3815 3075 725 Balance -937.827 -605.5 -95 Weight 84.3 kg 80.4 kg Intake: IV 1817.0 1408.2 630 Amino Acid 5%-D15w+Lytes* 747 996 415 E* 1,000 ml @ 90 mls/hr IV .BY DURATION [facility]ICOLETTE Rx#: [id number] Fat Emulsion 20% 250 ml @ 104.0 187.2 20.833 mls/hr IV MoTh@ 1400 [facility] Rx#:[id number] Mvi, Adult No.4 with Vit 166 K 10 ml Trace (Conc-1Ml/ Dose) 1 ml In Amino Acid 5%-D15w+Lytes*E* 1,000 ml @ 90 mls/hr IV .BY DURATION NICOLETTE Rx#: [id number] Piperacillin-Tazobactam 3 150 125 100 .375 gm In Sodium Chloride 0.9% 100 ml @ 25 mls/hr IVPB Q8HR [facility] Rx# :[id number] Potassium Chloride 10 meq 200 100 100 In Water For Injection 1 100ml.bag @ 100 mls/hr IVPB Q1H [facility] Rx#: [id number] Sodium Chloride 0.9% 1, 450 15 000 ml @ 75 mls/hr IV . [id number] [facility] Rx#:[id number] Intake, IV Titration 5556.581 6657.3 Amount Amino Acid 5%-D15w+Lytes* 1000 E* 1,000 ml @ 90 mls/hr IV .BY DURATION NICOLETTE Rx#: [id number] Clevidipine Butyrate 25 49.173 61.3 mg In Empty Bag 1 bag @ 1 MG/HR 2 mls/hr IV .Q24H [facility] Rx#:[id number] Mvi, Adult No.4 with Vit 1011 K 10 ml Trace (Conc-1Ml/ Dose) 1 ml In Amino Acid 5%-D15w+Lytes*E* 1,000 ml @ 90 mls/hr IV .BY DURATION NICOLETTE Rx#: [id number] Output: Urine 3815 3075 725 Other: Voiding Method Indwelling Catheter Indwelling Catheter Indwelling Catheter ABP, PAP, CO, CI - Last Documented Arterial Blood Pressure 147/70 - Exam Physical Exam: Revealed a 53-year-old female , on airvo 50%/55 L flow Head: Atraumatic, normocephalic. HEENT:[Neck is supple.] [No neck masses.] [No thyromegaly.] [No JVD.] Chest: [Symmetrical chest expansion, clear bilaterally no rhonchi and no wheezes Cardiac Exam: [Normal S1 and S2, no S3 gallop, no murmur.] Abdomen: [Soft, nontender, no megaly, no rebound, no guarding, colostomy seems to be functional. Open sutures noted Negative bowel sounds. JG drain is noted, intact Extremities: [No clubbing, 2+ bipedal edema edema, no cyanosis.] Neurological Exam: Alert and oriented 3, no gross Focal deficit Psychiatric: Normal mood, flat affect and normal mental status examination In: No rashes - Labs CBC & Chem 7: 06/29/23 04:05 06/29/23 04:05 Labs: Abnormal Lab Results - Last 24 Hours (Table) 06/28/23 06/28/23 06/29/23 Range/Units 11:44 17:54 00:00 WBC (3.8-10.6) k/uL RBC (3.80-5.40) m/uL Hgb (11.4-16.0) gm/dL Hct (34.0-46.0) % Neutrophils # (1.3-7.7) k/uL Sodium (137-145) mmol/L Potassium (3.5-5.1) mmol/L BUN (7-17) mg/dL Creatinine (0.52-1.04) mg/dL Glucose (74-99) mg/dL POC Glucose (mg/dL) 324 H 335 H 361 H (70-110) mg/dL Calcium (8.4-10.2) mg/dL Triglycerides (0.00-149.00) mg/dL 06/29/23 06/29/23 06/29/23 Range/Units 04:05 04:05 06:02 WBC 11.1 H (3.8-10.6) k/uL RBC 3.68 L (3.80-5.40) m/uL Hgb 11.3 L (11.4-16.0) gm/dL Hct 33.5 L (34.0-46.0) % Neutrophils # 9.3 H (1.3-7.7) k/uL Sodium 133 L (137-145) mmol/L Potassium 3.4 L (3.5-5.1) mmol/L BUN 23 H (7-17) mg/dL Creatinine 0.46 L (0.52-1.04) mg/dL Glucose 339 H (74-99) mg/dL POC Glucose (mg/dL) 294 H (70-110) mg/dL Calcium 8.1 L (8.4-10.2) mg/dL Triglycerides (0.00-149.00) mg/dL 06/29/23 Range/Units 08:17 WBC (3.8-10.6) k/uL RBC (3.80-5.40) m/uL Hgb (11.4-16.0) gm/dL Hct (34.0-46.0) % Neutrophils # (1.3-7.7) k/uL Sodium (137-145) mmol/L Potassium (3.5-5.1) mmol/L BUN (7-17) mg/dL Creatinine (0.52-1.04) mg/dL Glucose (74-99) mg/dL POC Glucose (mg/dL) (70-110) mg/dL Calcium (8.4-10.2) mg/dL Triglycerides 493.00 H (0.00-149.00) mg/dL Assessment and Plan Assessment: Impression: Acute abdomen/anastomotic leak following a low anterior resection. The patient was taken to the operating room and the patient underwent an extensive laparotomy, partial omentectomy, colostomy formation of this; and closure of the rectal stump. The patient is postop day #5 Low anterior resection for diverticulitis and the patient is postop day number #11 Acute hypoxic respiratory failure, extubated 2 days ago, required BiPAP, and r equiring airvo Sinus tachycardia, resolved Bradycardia secondary to Precedex which has been discontinued acute diverticulitis Diabetes mellitus 2 Hypertension Hyperlipidemia History of CVA with expressive aphasia Previous history of DVT maintained on anticoagulation with Eliquis on outpatient basis. Currently off anticoagulants, will resume once cleared by surgery to go back on anticoagulations Poorly controlled blood pressure patient is requiring clevidipine,, will apply and clonidine patch and hopefully discontinue the drip. Recommendation: Continue to monitor in the ICU Continue incentive spirometry Continue antibiotics/Zosyn Clonidine patch and hopefully discontinued clevidipine Continue TPN Continue pain control management Continue subcu heparin for DVT prophylaxis, restart oral anticoagulations therapy once cleared by surgery Continue GI prophylaxis Monitor output from the JG drain Monitor colostomy output, being addressed by general surgery on the case Continue to monitor in the ICU for now Time with Patient: Less than 30
[2023-06-29 12:09] LABS: Glucose,Whole Blood 319 mg/dL (70-110)
[2023-06-29] MEDS: KETOROLAC 15 MG/ML 1 ML VIAL IVP SCH ×2 (12:18→17:48)
[2023-06-29 12:37] VITALS: BMI 30.4
[2023-06-29] MEDS: FLUCONAZOLE IN NACL,ISO-OSM 100 MG in SALINE 1 50ML.BAG IVPB SCH (15:26)
[2023-06-29 17:34] LABS: Glucose,Whole Blood 291 mg/dL (70-110)
[2023-06-29] MEDS: HYDROmorphone 0.5 MG/0.5 ML SYRINGE IVP PRN (17:49)
[2023-06-29] MEDS: 1: MVI, ADULT NO.4 WITH VIT K 10 ML, TRACE (CONC-1ML/DOSE) 1 ML, SODIUM CHLORIDE 4MEQ/ML IV SCH ×6 (19:52)
--- NOTE | 2023-06-29 20:09 | P.PN ---
Subjective Progress Note Date: 06/29/23 his is a pleasant 53 years old femalepresents with diverticulitis and bilateral ovarian cyst. She status post low anterior resection with bilateral ovarian cystectomy and partial omentectomy. sHe tolerates diet well, abdominal pain is minimal. She had little watery bowel movement yesterday. Eliquis was started hemodynamically stable and labs were reviewed 06/23/2023 Patient is seen and examined by me at bedside. Patient had increasing abdominal pain and distention. I discussed the case with the staff were discussed with surgery team as well who were following the case closely. Surgical team ordered abdominal x-ray which showed large pneumo peritoneal larger than expected for postop day. Then they ordered a CT of the abdomen and pelvis which showed free air present within the abdomen. With ascites. Patient was taken for emergent exploratory laparotomy and possible bowel resection and after the procedure patient was taken to the ICU. Patient was started on antibiotic with Flagyl and ceftriaxone as well as aggressive hydration with normal saline 100 mL per hour. Blood pressure improved and with systolic was 140-160. Patient was on room air saturating about 95%. She had low-grade temperature in the morning of 99.9. Showing WBCs of 8.4, hemoglobin 12.9. Platelet count 221. Creatinine is 0.6. Glucose controlled. Electrolytes within the normal. 06/24/2023 patient yesterday she had worsening abdominal pain and distention. Surgery team will follow closely. Several images were requested showing free air, And patient eventually was taken to the operation room As per surgery team patient underwent (Reopening of laparotomy, lysis of adhesions. Takedown of colorectal anastomosis with conversion to Ly's procedure i.e. and colostomy with closed distal pouch) and it was feculent material in the peritoneal cavity secondary to anastomotic breakdown. Patient was placed on antibiotics. Currently her antibiotics were changed to Zosyn to cover both gram-negative and in microvolts. Patient currently in the ICU sedated and intubated on mechanical ventilation. Her abdomen is less distended and left lower colostomy back in place. Her blood pressure was on the low side she received 2 doses of normal saline bolus of 1 L each. Also she was placed on small dose of pressors. Patient remains tachycardic and tachypneic and she had a fever of 103 this morning Lactic acid is elevated at 2.7, came back to normal at 1.6 CBC, BMP and liver enzymes were unremarkable. Except for mildly elevated ALT and low elbow made. Chest x-ray from this morning showing atelectasis. Case was discussed with pulmonary/critical care. 06/25/2023 pt is sedated and intubated and pulmonary critical care team help with the vent managment , pt had uneventful night , she was on less levophed dose in the morning than yesterday, her pressor was discontinued later, her bp improved through the day and systolic bp 120-130 she has soft abdomen and colostomy back is empty only from little serosanguinous fluid wbc is 9.4, hb 11.5, platelet is normal her eliquis is still on hold , and dvt px is machical now till cleared by surgery she is on zosyn, fever subsided , no leukocytosis , and pt is started on TPN at 30 ml per hr 06/26/2023 Patient is still intubated and sedated in the ICU with pulmonary team help with mechanical ventilation management Propofol may be discontinued soon to help her mentation. Chest lungs have mild leukocytosis. She still has mild fever 99.8, tachypneic and tachycardic but she is improving slowly and gradually. She is On TPN at 30 ML/H, Normal Saline at 50 ML and Zosyn. Blood Culture Also Growing Sensitive Pseudomonas and E. coli with Nighat 06/27/2023 Patient is seen and evaluated and follow-up maintained on BiPAP with multiple medical consultations following. Patient was successfully extubated yesterday and continues to be extremely lethargic. Patient was maintained on Precedex as well as TPN and currently nothing by mouth. Patient had developed an anastomotic leak and taken back to the OR on June 24 and underwent takedown of colorectal anastomosis with conversion to Ly's procedure and colostomy. Patient is continued on antibiotics in the form of Zosyn as well and culture showing preliminary anaerobic gram-negative bacilli and abdominal wound was showing E. coli with pseudomonas aeruginosa along with Nighat and strep group B. Cultures also showing Nighat and will add Diflucan. Potassium 2.9 and will replace per protocol and also recommend replacing magnesium which is currently 1.8. Blood sugars appear slightly more elevated and will add low-dose long- acting and monitor closely 06/28/2023 Patient is seen in follow-up in the ICU currently on high flow airvo and off BiPAP. Patient continues on TPN Precedex is often patient is a little more awake today. Patient is on Cleviprex and as patient remains nothing by mouth and home blood pressure medications have been on hold. Per nursing staff there is some stool starting in the ostomy. Blood sugars have been elevated and will increase the dose of long-acting and continue sliding scale. Patient is afebrile maintained on antibiotics with fluconazole. Patient is reporting a lot of pain and discomfort in the abdomen. A.m. labs pending at this time. 06/29/2023 Patient is seen in follow-up today currently maintained on airvo and being titrated down currently at 40%. Patient with multiple medical consultations following including ostomy nurse and scheduled for education of the ostomy today. Patient is very tearful when discussing that she has an ostomy. There is some stool and gas noted in the ostomy. Patient to have physical therapy evaluation today. Patient will likely need ECF on discharge for continued strengthening and mobility. Mother at the bedside today who is here from [place] visiting since the surgery and has been provided with resources for ECF in the area and has been visiting them. Patient is asking for food and water although currently nothing by mouth and maintained on TPN. Blood sugars are becoming more elevated and uncontrolled currently maintained on insulin every 6 per TPN and ICU protocol along with long-acting and will increase the long- acting. Pain is not controlled and maintained on morphine and being transitioned to Dilaudid. Patient is off Precedex and Cleviprex drip and continued on antibiotics along with antifungal medications. Patient also being followed by wound care and minimal output noted in the JG drain time of exam. Review of systems: Constitutional: reports of fatigue, no fever, or chills Cardiovascular: No reports of chest pain or palpitations Respiratory: reports of shortness of breath GI: No reports of nausea, vomiting, or diarrhea, reports continued abdominal pain, stool and gas noted in the ostomy : No reports of dysuria or retention Neurovascular: reports of generalized weakness All medications have been reviewed Physical exam: GENERAL: The patient is more awake today, maintained on high flow airvo, currently at 40% HEENT: Pupils are round and equally reacting to light. EOMI. No scleral icterus. No conjunctival pallor. Normocephalic, atraumatic. No pharyngeal erythema. No thyromegaly. CARDIOVASCULAR: S1 and S2 muffled PULMONARY:Diminished breath sounds bilaterally with some scattered faint crackles noted, no wheezing, coarse rhonchi ABDOMEN: Soft, periumbilical tenderness ,tenderness, continues to be distended, normoactive bowel sounds. No palpable organomegaly. surgical wound dressing currently intact. Colostomy bag with stool noted MUSCULOSKELETAL: No joint swelling or deformity. EXTREMITIES: No cyanosis, clubbing, or pedal edema. Generalized edema noted to be improved of the upper and lower extremities today. NEUROLOGICAL: Gross neurological examination did not reveal any focal deficits. Diffusely weak SKIN: No rashes. no petechiae. Assessment: Acute abdomen secondary to breakdown of anastomosis status post takedown of colo rectal anastomosis with conversion to Ly's procedure and end colostomy septic shock secondary to intra-abdominal infection, improving Hypokalemia, being replaced Elevated lactic acid secondary to an anastomotic leak with fecal matter, improved Acute hypoxic respiratory failure secondary to above requiring intubation and mechanical ventilation, status post extubation currently maintained on high flow airvo acute diverticulitis status post low anterior resection of the colon (06/18) Ovarian cyst status post bilateral ovarian cystectomy Worsening pneumo-peritoneam requiring exploratory laparotomy and bowel resection history of DVT Diabetes mellitus, uncontrolled with hyperglycemia Hypertension Hyperlipidemia History of CVA GI prophylaxis DVT prophylaxis Full code Plan: Continue Zosyn as cultures are showing Pseudomonas, E. coli, strep group B, Nighat and will continue Diflucan as well Continue with potassium and electrolyte replacement per protocol Patient is extubated and currently maintained off BiPAP, continued on high flow airvo at 40% Continue TPN with nothing by mouth per surgery due to continued pain Blood sugars continue to be elevated and will continue long-acting as well as sliding scale. Increase long-acting to twice daily Surgical management as well as pain management per surgery team. Patient having continued pain and morphine ineffective and being transitioned to scheduled Toradol along with Dilaudid PT/OT therapy to evaluate Ostomy nurse following as well providing education. There is stool and gas noted in the ostomy Case management/social work following his patient will definitely need ECF on discharge due to prolonged hospitalization in weakness. Family looking in to ECF within the area Prognosis is guarded Thank you kindly for this consultation. We will continue to follow with general surgery during hospitalization. The impression and plan of care has been dictated by Jennifer Thakkar, Nurse Prac titioner as directed. Dr. Leydi MD I have performed a history and examination and MDM of this patient, discussed the same with the dictator, and agree with the dictator's assessment and plan as written ,documented as a scribe. Based on total visit time, I have performed more than 50% of the visit. Objective - Vital Signs Vital signs: Vital Signs Temp 98.7 F 06/29/23 16:00 Pulse 64 06/29/23 19:46 Resp 18 06/29/23 19:46 BP 146/83 06/29/23 19:00 Pulse Ox 97 06/29/23 19:46 FiO2 40 06/29/23 19:46 Intake & Output 06/29/23 06/29/23 06/30/23 06:59 18:59 06:59 Intake Total 2469.5 1644.7 113 Output Total 3075 1650 50 Balance -605.5 -5.3 63 Weight 80.4 kg 80.4 kg Intake: IV 1408.2 1631 113 Amino Acid 5%-D15w+Lytes* 996 996 83 E* 1,000 ml @ 90 mls/hr IV .BY DURATION [facility] Rx#: [id number] Fat Emulsion 20% 250 ml @ 187.2 20.833 mls/hr IV MoTh@ 1400 [facility] Rx#:[id number] Fluconazole in NaCl,Iso- 100 Osm 100 mg In Saline 1 50ml.bag @ 50 mls/hr IVPB DAILY@1600 [facility] Rx#: [id number] Piperacillin-Tazobactam 3 125 175 25 .375 gm In Sodium Chloride 0.9% 100 ml @ 25 mls/hr IVPB Q8HR [facility] Rx# :[id number] Potassium Chloride 10 meq 100 100 In Water For Injection 1 100ml.bag @ 100 mls/hr IVPB Q1H [facility] Rx#: [id number] Sodium Chloride 0.9% 1, 260 5 000 ml @ 75 mls/hr IV . [id number] [facility] Rx#:[id number] Intake, IV Titration 1061.3 13.7 Amount Amino Acid 5%-D15w+Lytes* 1000 E* 1,000 ml @ 90 mls/hr IV .BY DURATION [facility] Rx#: [id number] Clevidipine Butyrate 25 61.3 13.7 mg In Empty Bag 1 bag @ 1 MG/HR 2 mls/hr IV .Q24H [facility] Rx#:[id number] Output: Gastric Drainage 250 Urine 3075 1400 50 Other: Voiding Method Indwelling Catheter Indwelling Catheter ABP, PAP, CO, CI - Last Documented Arterial Blood Pressure 135/62 - Labs CBC & Chem 7: 06/29/23 04:05 06/29/23 04:05 Labs: Abnormal Lab Results - Last 24 Hours (Table) 06/29/23 06/29/23 06/29/23 Range/Units 00:00 04:05 04:05 WBC 11.1 H (3.8-10.6) k/uL RBC 3.68 L (3.80-5.40) m/uL Hgb 11.3 L (11.4-16.0) gm/dL Hct 33.5 L (34.0-46.0) % Neutrophils # 9.3 H (1.3-7.7) k/uL Sodium 133 L (137-145) mmol/L Potassium 3.4 L (3.5-5.1) mmol/L BUN 23 H (7-17) mg/dL Creatinine 0.46 L (0.52-1.04) mg/dL Glucose 339 H (74-99) mg/dL POC Glucose (mg/dL) 361 H (70-110) mg/dL Calcium 8.1 L (8.4-10.2) mg/dL Triglycerides (0.00-149.00) mg/dL 06/29/23 06/29/23 06/29/23 Range/Units 06:02 08:17 12:07 WBC (3.8-10.6) k/uL RBC (3.80-5.40) m/uL Hgb (11.4-16.0) gm/dL Hct (34.0-46.0) % Neutrophils # (1.3-7.7) k/uL Sodium (137-145) mmol/L Potassium (3.5-5.1) mmol/L BUN (7-17) mg/dL Creatinine (0.52-1.04) mg/dL Glucose (74-99) mg/dL POC Glucose (mg/dL) 294 H 319 H (70-110) mg/dL Calcium (8.4-10.2) mg/dL Triglycerides 493.00 H (0.00-149.00) mg/dL 06/29/23 Range/Units 17:32 WBC (3.8-10.6) k/uL RBC (3.80-5.40) m/uL Hgb (11.4-16.0) gm/dL Hct (34.0-46.0) % Neutrophils # (1.3-7.7) k/uL Sodium (137-145) mmol/L Potassium (3.5-5.1) mmol/L BUN (7-17) mg/dL Creatinine (0.52-1.04) mg/dL Glucose (74-99) mg/dL POC Glucose (mg/dL) 291 H (70-110) mg/dL Calcium (8.4-10.2) mg/dL Triglycerides (0.00-149.00) mg/dL
[2023-06-29 20:12] LABS: Glucose,Whole Blood 285 mg/dL (70-110)
[2023-06-29] MEDS: INSULIN DETEMIR (LEVEMIR) 100 UNIT/ML SYR SQ SCH (20:48)
[2023-06-30 00:04] LABS: Glucose,Whole Blood 323 mg/dL (70-110)
[2023-06-30] MEDS: KETOROLAC 15 MG/ML 1 ML VIAL IVP SCH ×5 (00:05→22:44)
[2023-06-30] MEDS: INSULIN ASPART (NovoLOG) 100 UNIT/ML VIAL SQ SCH ×5 (00:06→22:45)
[2023-06-30] MEDS: PIPERACILLIN-TAZOBACTAM 3.375 GM in SODIUM CHLORIDE 0.9% 100 ML IVPB SCH ×4 (00:07→22:45)
[2023-06-30] MEDS: HYDROmorphone 1 MG/ML 1 ML SYRINGE IVP PRN ×8 (00:07→22:45)
[2023-06-30] MEDS: POTASSIUM CHLORIDE 20 MEQ in WATER FOR INJECTION 1 100ML.BAG IVPB SCH ×2 (02:39→05:32)
[2023-06-30] MEDS: DEXMEDETOMIDINE/0.9% NACL(PMX) 400 MCG in EMPTY BAG 1 BAG IV SCH (02:40)
[2023-06-30 05:22] LABS: ALT 19 U/L (4-34); AST 20 U/L (14-36); African American GFR (CKD) >90 (>60 ml/min/1.73 sqM); Albumin 2.3 g/dL (3.5-5.0); Alkaline Phosphatase 124 U/L (38-126); Anion Gap 7 mmol/L; Blood Urea Nitrogen 30 mg/dL (7-17); Calcium 8.1 mg/dL (8.4-10.2); Carbon Dioxide 23 mmol/L (22-30); Chloride 105 mmol/L (98-107); Glucose 286 mg/dL (74-99); Non-African American GFR(CKD) >90 (>60 ml/min/1.73 sqM); Phosphorus 3.7 mg/dL (2.5-4.5); Potassium 4.2 mmol/L (3.5-5.1); Sodium 135 mmol/L (137-145); Total Bilirubin 0.8 mg/dL (0.2-1.3); Total Protein 5.1 g/dL (6.3-8.2)
[2023-06-30 05:25] LABS: Basophils % (A) 0 %; Eosinophils # (A) 0.1 k/uL (0-0.7); Eosinophils % (A) 1 %; HCT 28.7 % (34.0-46.0); Lymphocytes # (A) 0.9 k/uL (1.0-4.8); Lymphocytes % (A) 10 %; MCH 30.3 pg (25.0-35.0); MCHC 33.4 g/dL (31.0-37.0); MCV 90.9 fL (80.0-100.0); Mean Platelet Volume 9.8; Monocytes # (A) 0.4 k/uL (0-1.0); Monocytes % (A) 5 %; Neutrophils # (A) 7.2 k/uL (1.3-7.7); Neutrophils % (A) 82 %; Platelet Count 272 k/uL (150-450); RBC 3.16 m/uL (3.80-5.40); RDW 14.1 % (11.5-15.5); WBC 8.8 k/uL (3.8-10.6)
[2023-06-30 05:27] LABS: HGB 9.6 gm/dL (11.4-16.0)
[2023-06-30 06:41] LABS: Glucose,Whole Blood 278 mg/dL (70-110)
[2023-06-30] MEDS: IPRATROPIUM-ALBUTEROL 3 ML NEB INHALATION SCH ×4 (07:50→20:21)
[2023-06-30] MEDS: 1: MVI, ADULT NO.4 WITH VIT K 10 ML, TRACE (CONC-1ML/DOSE) 1 ML, SODIUM CHLORIDE 4MEQ/ML IV SCH ×12 (08:13→18:51)
[2023-06-30] MEDS: PANTOPRAZOLE 40 MG/10 ML VIAL IVP SCH ×2 (08:19→20:28)
[2023-06-30] MEDS: INSULIN DETEMIR (LEVEMIR) 100 UNIT/ML SYR SQ SCH ×2 (08:19→20:28)
[2023-06-30] MEDS: HEPARIN SODIUM,PORCINE 5,000 UNIT/ML 1 ML VIAL SQ SCH ×2 (08:19→20:28)
--- NOTE | 2023-06-30 10:02 | P.PN ---
Subjective Progress Note Date: 06/30/23 (Surgery) CHIEF COMPLAINT: Diverticulitis HISTORY OF PRESENT ILLNESS: Patient currently ICU. She had diverticulitis with a lower anterior resection on 06/18/23. She then developed an anastomotic leak and required to be taken back to the OR on 06/24/2023. Patient is postop day #5 status post takedown of colorectal anastomosis with conversion to Ly's procedure and colostomy with close distal pouch for feculent peritonitis secondary to anastomotic leak. Patient is currently on Airvo. Patient having abdominal pain. Pain is not controlled with the morphine. Ostomy is functioning with stool and air. No nausea or vomiting. She is on TPN for nutrition support. Afebrile. WBC is up from 9.3-11.1 Hgb 11.3 platelets 3:15 sodium 133 potassium 3.4 creatinine 0.46 glucose elevated to 94 JG drain with minimal serosanguineous output Patient seen and examined with Dr. cary PHYSICAL EXAM: VITAL SIGNS: Reviewed. GENERAL: no acute distress. ABDOMEN: Soft. Minimally Distended. Incisional dressing clean dry and intact. Ostomy with stool and air present. No considerable gas. NEUROLOGIC: Awake and alert ASSESSMENT: 1. Feculent peritonitis secondary to anastomotic leak status post reopening of laparotomy, lysis of adhesions. Takedown of colorectal anastomosis with conversion to Ly's procedure and colostomy 2. Diverticulitis and bilateral ovarian cysts 3. Hypokalemia PLAN: -Pain is much better today. Continue management. -PT OT - social work for discharge planning and ECF placement -Consult ostomy nurse for ostomy care because of new colostomy -Continue local wound care. Patient followed by wound care service -Continue TPN for nutrition support -keep patient NPO however has made progress. Consider taking NG out tomorrow. -Continue antibiotics -Continue chemical DVT prophylaxis Objective - Vital Signs Vital signs: Vital Signs Temp 97.8 F 06/30/23 08:00 Pulse 61 06/30/23 08:00 Resp 23 06/30/23 08:00 BP 158/79 06/30/23 08:00 Pulse Ox 95 06/30/23 08:11 FiO2 40 06/30/23 07:53 Intake & Output 06/29/23 06/30/23 06/30/23 18:59 06:59 18:59 Intake Total 1644.7 1228 355 Output Total 1650 925 270 Balance -5.3 303 85 Weight 80.4 kg Intake: IV 1631 1228 355 Amino Acid 5%-D15w+Lytes* 996 983 180 E* 1,000 ml @ 90 mls/hr IV .BY DURATION [facility] Rx#: [id number] Fluconazole in NaCl,Iso- 100 Osm 100 mg In Saline 1 50ml.bag @ 50 mls/hr IVPB DAILY@1600 [facility] Rx#: [id number] Piperacillin-Tazobactam 3 175 25 100 .375 gm In Sodium Chloride 0.9% 100 ml @ 25 mls/hr IVPB Q8HR [facility] Rx# :[id number] Potassium Chloride 10 meq 100 In Water For Injection 1 100ml.bag @ 100 mls/hr IVPB Q1H [facility] Rx#: [id number] Potassium Chloride 20 meq 200 In Water For Injection 1 100ml.bag @ 50 mls/hr IVPB Q2H [facility] Rx#: [id number] Sodium Chloride 0.9% 1, 260 20 75 000 ml @ 75 mls/hr IV . [id number] [facility] Rx#:[id number] Intake, IV Titration 13.7 Amount Clevidipine Butyrate 25 13.7 mg In Empty Bag 1 bag @ 1 MG/HR 2 mls/hr IV .Q24H [facility] Rx#:[id number] Output: Gastric Drainage 250 Urine 1400 925 270 Other: Voiding Method Indwelling Catheter Indwelling Catheter ABP, PAP, CO, CI - Last Documented Arterial Blood Pressure 140/59 - Labs CBC & Chem 7: 06/30/23 03:30 06/30/23 03:30 Labs: Abnormal Lab Results - Last 24 Hours (Table) 06/29/23 06/29/23 06/29/23 Range/Units 08:17 12:07 17:32 RBC (3.80-5.40) m/uL Hgb (11.4-16.0) gm/dL Hct (34.0-46.0) % Lymphocytes # (1.0-4.8) k/uL Sodium (137-145) mmol/L Potassium (3.5-5.1) mmol/L BUN (7-17) mg/dL Creatinine (0.52-1.04) mg/dL Glucose (74-99) mg/dL POC Glucose (mg/dL) 319 H 291 H (70-110) mg/dL Calcium (8.4-10.2) mg/dL Total Protein (6.3-8.2) g/dL Albumin (3.5-5.0) g/dL Triglycerides 493.00 H (0.00-149.00) mg/dL 06/29/23 06/29/23 06/30/23 Range/Units 20:10 20:16 00:03 RBC (3.80-5.40) m/uL Hgb (11.4-16.0) gm/dL Hct (34.0-46.0) % Lymphocytes # (1.0-4.8) k/uL Sodium (137-145) mmol/L Potassium 2.9 L (3.5-5.1) mmol/L BUN (7-17) mg/dL Creatinine (0.52-1.04) mg/dL Glucose (74-99) mg/dL POC Glucose (mg/dL) 285 H 323 H (70-110) mg/dL Calcium (8.4-10.2) mg/dL Total Protein (6.3-8.2) g/dL Albumin (3.5-5.0) g/dL Triglycerides (0.00-149.00) mg/dL 06/30/23 06/30/23 06/30/23 Range/Units 03:30 03:30 06:39 RBC 3.16 L (3.80-5.40) m/uL Hgb 9.6 L D (11.4-16.0) gm/dL Hct 28.7 L (34.0-46.0) % Lymphocytes # 0.9 L (1.0-4.8) k/uL Sodium 135 L (137-145) mmol/L Potassium (3.5-5.1) mmol/L BUN 30 H (7-17) mg/dL Creatinine 0.48 L (0.52-1.04) mg/dL Glucose 286 H (74-99) mg/dL POC Glucose (mg/dL) 278 H (70-110) mg/dL Calcium 8.1 L (8.4-10.2) mg/dL Total Protein 5.1 L (6.3-8.2) g/dL Albumin 2.3 L (3.5-5.0) g/dL Triglycerides (0.00-149.00) mg/dL
--- NOTE | 2023-06-30 10:15 | XR ---
EXAMINATION TYPE: XR chest 1V portable DATE OF EXAM: 06/30/2023 10:07 AM CLINICAL INDICATION:Female, 53 years old with history of sob; COMPARISON: Chest radiographs from 06/28/2023 TECHNIQUE: XR chest 1V portable Frontal view of the chest. FINDINGS: Lungs/Pleura: There is no evidence of pleural effusion, focal consolidation, or pneumothorax. Pulmonary vascularity: Unremarkable. Heart/mediastinum: Cardiomediastinal silhouette is unremarkable. Musculoskeletal: No acute osseous pathology. Lines/Tubes: Nasogastric tube with its distal tip and side-port projecting under the diaphragm. Right internal jugular central venous catheter with distal tip at the right atrium IMPRESSION: Support line and tube in satisfactory position
--- NOTE | 2023-06-30 11:40 | P.PN ---
Subjective Progress Note Date: 06/30/23 Principal diagnosis: Acute abdomen with anastomotic leak following low anterior resection, status post reopening of laparotomy, lysis of adhesions takedown of colorectal anastomosis with conversion to Ly's procedure and colostomy with closed distal pouch This is a 53-year-old female patient was undergone a low anterior resection for diverticulitis and the patient is postop day #6. The patient overnight was having abdominal discomfort along with some intermittent chills. No reported fever. She was not passing any flatus and she had no bowel movement for the past 24 hours. The abdomen was protruded and was also tender. The patient had a white cell count of 6.9 with a hemoglobin of 11 and a platelet count of 206. The patient was seen by the on-call surgeon and the patient had a CAT scan of the abdomen and pelvis that showed free air in the abdomen without any extravasation of contrast. There was ascites and subcutaneous seroma involving the anterior pelvis. Based on that, the patient was taken back to the operating room by Bishnu Hurst surgeon and the patient underwent a laparotomy, partial omentectomy and colostomy formation and closure of the rectal stump. The patient was told to have anastomotic leak. Patient arrived today intensive care following her surgery. She is currently on assist control mode at the rate of 14, tidal volume of 400, FiO2 is at 100% with a PEEP of 5. She arrived to the ICU 9 AM this morning. The patient is on no sedatives for now. She is on IV fluids with 75 mL of normal saline. She has a JG drain in the right lower quadrant Doppler being serosanguineous. She has a colostomy in her left lower quadrant. She is hemodynamically stable. No hypotension. Cardiac rhythm is sinus tachycardia with a rate of 122. She is currently on a combination of Rocephin and Flagyl. Labs from today shows a white cell count of 4.5 with a hemoglobin 12.8, BUN is still pending. Creatinine is pending. Serum bicarb is 18 and sodium levels of 135. Glucose at 133. Urine output to be monitored and the patient has approximately 100 mL in her [place] bag. Reevaluated today on 06/25/23, patient remains in the ICU, intubated and mechanically ventilated. She is on assist control rate of 24 tidal volume 400 FiO2 50% and PEEP of 5 ABG showed a pO2 of 107 pCO2 35 pH of 7.39. Patient is on propofol at 60 mcg/kg/m she is also on 0.9 normal saline at 1 50 mL per hour she is now off norepinephrine. Maintained on Zosyn for her peritonitis. Patient does have a baseline of CVA and mental health issues I am a bit reluctant to proceed to weaning and extubating the patient today, she went off norepinephrine earlier today, I plan to continue to monitor the patient and we will address weaning and possibly extubation in the next 24 hours. Chest x-ray showed no evidence of active disease. WBC count is 9.4 hemoglobin 11.5 basic metabolic profile is normal renal profile is normal blood sugar is 193 Patient was reevaluated today on 06/26/23, remains in the ICU intubated and mechanically ventilated. Patient is sedated, she is requiring propofol at 50 mg/kg/m. And she is frequently receiving Dilaudid for pain. She is on assist control rate of 24 tidal volume 400 FiO2 50% PEEP of 5 ABG showed a pO2 of 140 pCO2 34 pH of 7.46, hence her FiO2 was cut down to 40% and her rate was cut down to 20. Patient seems to be quite edematous hence a dose of Lasix was given today 40 mg IV push 1 and her IV fluid was cut down to 75 mL per hour patient remains on TPN. Her urine output is about 40 mL per hour. Patient remains empirically on Zosyn for her acute abdomen presentation. Labs today showed W set of 7.8 hemoglobin 9.6 platelets of 229 basic metabolic profile is normal renal profile is normal, chest x-ray showed right lower lobe atelectasis. Doubt pneumonia. Patient was reevaluated today on 06/27/23, patient was extubated yesterday, tolerated the extubation well however overnight the patient had extra work of breathing, she developed what seems to be almost stridor, unable to take a deep breath and unable to clear secretions, patient was given diuretics, bronchodilators, racemic epinephrine, but she responded well after she was placed on BiPAP. She is now on BiPAP, 10/5/50%, she is also on Precedex at 0.5 mcg/kg per hour. She is on TPN at 83 mL per hour patient is also receiving Zosyn. Continues to have functional colostomy with serosanguineous fluid noted in the colostomy bag and she has minimal drainage in the JG drain. Overall the patient is marginal, she is definitely critically ill, hopefully will not require reintubation. Will recommend follow-up ABG and follow-up chest x-ray this morning on this patient. In the meantime I'm recommending we'll continue BiPAP, and if her volumes become low to increase IPAP from 10-14. WC count today is 7.9 hemoglobin is 10, basic metabolic profile is normal except for potassium of 2.9 being addressed accordingly Reevaluated today on 06/28/23, patient remains in the ICU, patient was on BiPAP through the night, earlier this morning the patient was transitioned to nasal cannula. She is on 6 L high flow nasal cannula, O2 saturation is in the mid 90s. Patient was on Precedex yesterday, however she became bradycardic and hypotensive patient required clevidipine, and we have discontinued her Precedex at night. She is now on clevidipine for milligrams per hour patient is more awake today compared to the last 2 days, she is following instructions, appropriate but she had difficulty coughing and cannot clear much of her secretions she seems to gag rather than cough. Patient is also on TPN at 83 mL per hour remains on Zosyn. Today I am recommending aggressive incentive spirometry and the general surgery staff to evaluate her colostomy, patient has open sutures around the site. Although her colostomy seems to be functional. Patient denies any pain denies any shortness of breath CBC is relatively normal hemoglobin is 9.4 WBC count is 9.3 basic metabolic profile is normal and renal profile is normal, chest x-ray showed minimal right basilar atelectasis, right diaphragm elevation, otherwise unremarkable Reevaluated today on 06/29/23, patient remains in the ICU, still requiring clevidipine at 1 mg/h. She was placed on aerosol last night with 50% FiO2 and 55 L flow. Patient seems to be doing well she seems to be generally weak, have abdominal pain seems to be fairly well controlled with Dilaudid and Toradol. Patient continues to have good urine output, she is intermittently laced on BiPAP 14/6/50%. Patient has good output from her ostomy. And the plan today is to transfer the patient out of the bed to a bedside chair. And hopefully ambulate. Remains on clevidipine, she is also on TPN, fluconazole and Zosyn. WBC count is 11.1 hemoglobin 11.3 basic metabolic profile is normal and renal profile is normal Was reevaluated today on 06/30/23, patient remains in the ICU, she is on 5 L nasal cannula, doing well, seems to be very comfortable, and not in any distress. Remains on TPN at 90 mL per hour she is also on Zosyn and fluconazole. Patient is afebrile, hemodynamically stable, remains on blood pressure medications for her elevated blood pressure. WBC count is 8.8 hemoglobin is 9.6 basic metabolic profile is normal renal profile is normal, chest x-ray showed no evidence of active disease. Objective - Vital Signs Vital signs: Vital Signs Temp 97.8 F 06/30/23 08:00 Pulse 60 06/30/23 11:22 Resp 10 L 06/30/23 11:00 BP 164/76 06/30/23 11:00 Pulse Ox 98 06/30/23 11:00 FiO2 40 06/30/23 07:53 Intake & Output 06/29/23 06/30/23 06/30/23 18:59 06:59 18:59 Intake Total 1644.7 1228 685 Output Total 1650 925 380 Balance -5.3 303 305 Weight 80.4 kg Intake: IV 1631 1228 685 Amino Acid 5%-D15w+Lytes* 996 983 360 E* 1,000 ml @ 90 mls/hr IV .BY DURATION [facility] Rx#: [id number] Fluconazole in NaCl,Iso- 100 Osm 100 mg In Saline 1 50ml.bag @ 50 mls/hr IVPB DAILY@1600 [facility] Rx#: [id number] Piperacillin-Tazobactam 3 175 25 100 .375 gm In Sodium Chloride 0.9% 100 ml @ 25 mls/hr IVPB Q8HR [facility] Rx# :[id number] Potassium Chloride 10 meq 100 In Water For Injection 1 100ml.bag @ 100 mls/hr IVPB Q1H [facility] Rx#: [id number] Potassium Chloride 20 meq 200 In Water For Injection 1 100ml.bag @ 50 mls/hr IVPB Q2H [facility] Rx#: [id number] Sodium Chloride 0.9% 1, 260 20 225 000 ml @ 75 mls/hr IV . [id number] [facility] Rx#:[id number] Intake, IV Titration 13.7 Amount Clevidipine Butyrate 25 13.7 mg In Empty Bag 1 bag @ 1 MG/HR 2 mls/hr IV .Q24H [facility] Rx#:[id number] Output: Gastric Drainage 250 Urine 1400 925 380 Other: Voiding Method Indwelling Catheter Indwelling Catheter Indwelling Catheter ABP, PAP, CO, CI - Last Documented Arterial Blood Pressure 160/70 - Exam Physical Exam: Revealed a 53-year-old female , on 5 L of nasal cannula Head: Atraumatic, normocephalic. HEENT:[Neck is supple.] [No neck masses.] [No thyromegaly.] [No JVD.] Chest: [Symmetrical chest expansion, clear bilaterally no rhonchi and no wheezes Cardiac Exam: [Normal S1 and S2, no S3 gallop, no murmur.] Abdomen: [Soft, nontender, no megaly, no rebound, no guarding, colostomy seems to be functional. Extremities: [No clubbing, 1 + bipedal edema edema, no cyanosis.] Neurological Exam: Alert and oriented 3, no gross Focal deficit Psychiatric: Normal mood, flat affect and normal mental status examination In: No rashes - Labs CBC & Chem 7: 06/30/23 03:30 06/30/23 03:30 Labs: Abnormal Lab Results - Last 24 Hours (Table) 06/29/23 06/29/23 06/29/23 Range/Units 12:07 17:32 20:10 RBC (3.80-5.40) m/uL Hgb (11.4-16.0) gm/dL Hct (34.0-46.0) % Lymphocytes # (1.0-4.8) k/uL Sodium (137-145) mmol/L Potassium (3.5-5.1) mmol/L BUN (7-17) mg/dL Creatinine (0.52-1.04) mg/dL Glucose (74-99) mg/dL POC Glucose (mg/dL) 319 H 291 H 285 H (70-110) mg/dL Calcium (8.4-10.2) mg/dL Total Protein (6.3-8.2) g/dL Albumin (3.5-5.0) g/dL 06/29/23 06/30/23 06/30/23 Range/Units 20:16 00:03 03:30 RBC (3.80-5.40) m/uL Hgb (11.4-16.0) gm/dL Hct (34.0-46.0) % Lymphocytes # (1.0-4.8) k/uL Sodium 135 L (137-145) mmol/L Potassium 2.9 L (3.5-5.1) mmol/L BUN 30 H (7-17) mg/dL Creatinine 0.48 L (0.52-1.04) mg/dL Glucose 286 H (74-99) mg/dL POC Glucose (mg/dL) 323 H (70-110) mg/dL Calcium 8.1 L (8.4-10.2) mg/dL Total Protein 5.1 L (6.3-8.2) g/dL Albumin 2.3 L (3.5-5.0) g/dL 06/30/23 06/30/23 Range/Units 03:30 06:39 RBC 3.16 L (3.80-5.40) m/uL Hgb 9.6 L D (11.4-16.0) gm/dL Hct 28.7 L (34.0-46.0) % Lymphocytes # 0.9 L (1.0-4.8) k/uL Sodium (137-145) mmol/L Potassium (3.5-5.1) mmol/L BUN (7-17) mg/dL Creatinine (0.52-1.04) mg/dL Glucose (74-99) mg/dL POC Glucose (mg/dL) 278 H (70-110) mg/dL Calcium (8.4-10.2) mg/dL Total Protein (6.3-8.2) g/dL Albumin (3.5-5.0) g/dL Assessment and Plan Assessment: Impression: Acute abdomen/anastomotic leak following a low anterior resection. The patient was taken to the operating room and the patient underwent an extensive laparo neo, partial omentectomy, colostomy formation of this; and closure of the rectal stump. The patient is postop day #6 Low anterior resection for diverticulitis and the patient is postop day number #12 Acute hypoxic respiratory failure, extubated 2 days ago, required BiPAP, and requiring airvo Sinus tachycardia, resolved Bradycardia secondary to Precedex which has been discontinued acute diverticulitis Diabetes mellitus 2 Hypertension Hyperlipidemia History of CVA with expressive aphasia Previous history of DVT maintained on anticoagulation with Eliquis on outpatient basis. Currently off anticoagulants, will resume once cleared by surgery to go back on anticoagulations Poorly controlled blood pressure patient is requiring clevidipine,, will apply and clonidine patch and hopefully discontinue the drip. Recommendation: Continue oxygen and titrate accordingly Transfer patient out of the ICU to a medical surgical floor Continue incentive spirometry Continue antibiotics/Zosyn/fluconazole Clonidine patch Continue TPN Continue pain control management Continue subcu heparin for DVT prophylaxis, restart oral anticoagulations therapy once cleared by surgery Continue GI prophylaxis Daily evaluation of colostomy output Time with Patient: Less than 30
[2023-06-30 11:56] LABS: Glucose,Whole Blood 276 mg/dL (70-110)
--- NOTE | 2023-06-30 14:31 | P.PN ---
Subjective Progress Note Date: 06/30/23 his is a pleasant 53 years old femalepresents with diverticulitis and bilateral ovarian cyst. She status post low anterior resection with bilateral ovarian cystectomy and partial omentectomy. sHe tolerates diet well, abdominal pain is minimal. She had little watery bowel movement yesterday. Eliquis was started hemodynamically stable and labs were reviewed 06/23/2023 Patient is seen and examined by me at bedside. Patient had increasing abdominal pain and distention. I discussed the case with the staff were discussed with surgery team as well who were following the case closely. Surgical team ordered abdominal x-ray which showed large pneumo peritoneal larger than expected for postop day. Then they ordered a CT of the abdomen and pelvis which showed free air present within the abdomen. With ascites. Patient was taken for emergent exploratory laparotomy and possible bowel resection and after the procedure patient was taken to the ICU. Patient was started on antibiotic with Flagyl and ceftriaxone as well as aggressive hydration with normal saline 100 mL per hour. Blood pressure improved and with systolic was 140-160. Patient was on room air saturating about 95%. She had low-grade temperature in the morning of 99.9. Showing WBCs of 8.4, hemoglobin 12.9. Platelet count 221. Creatinine is 0.6. Glucose controlled. Electrolytes within the normal. 06/24/2023 patient yesterday she had worsening abdominal pain and distention. Surgery team will follow closely. Several images were requested showing free air, And patient eventually was taken to the operation room As per surgery team patient underwent (Reopening of laparotomy, lysis of adhesions. Takedown of colorectal anastomosis with conversion to Ly's procedure i.e. and colostomy with closed distal pouch) and it was feculent material in the peritoneal cavity secondary to anastomotic breakdown. Patient was placed on antibiotics. Currently her antibiotics were changed to Zosyn to cover both gram-negative and in microvolts. Patient currently in the ICU sedated and intubated on mechanical ventilation. Her abdomen is less distended and left lower colostomy back in place. Her blood pressure was on the low side she received 2 doses of normal saline bolus of 1 L each. Also she was placed on small dose of pressors. Patient remains tachycardic and tachypneic and she had a fever of 103 this morning Lactic acid is elevated at 2.7, came back to normal at 1.6 CBC, BMP and liver enzymes were unremarkable. Except for mildly elevated ALT and low elbow made. Chest x-ray from this morning showing atelectasis. Case was discussed with pulmonary/critical care. 06/25/2023 pt is sedated and intubated and pulmonary critical care team help with the vent managment , pt had uneventful night , she was on less levophed dose in the morning than yesterday, her pressor was discontinued later, her bp improved through the day and systolic bp 120-130 she has soft abdomen and colostomy back is empty only from little serosanguinous fluid wbc is 9.4, hb 11.5, platelet is normal her eliquis is still on hold , and dvt px is machical now till cleared by surgery she is on zosyn, fever subsided , no leukocytosis , and pt is started on TPN at 30 ml per hr 06/26/2023 Patient is still intubated and sedated in the ICU with pulmonary team help with mechanical ventilation management Propofol may be discontinued soon to help her mentation. Chest lungs have mild leukocytosis. She still has mild fever 99.8, tachypneic and tachycardic but she is improving slowly and gradually. She is On TPN at 30 ML/H, Normal Saline at 50 ML and Zosyn. Blood Culture Also Growing Sensitive Pseudomonas and E. coli with Nighat 06/27/2023 Patient is seen and evaluated and follow-up maintained on BiPAP with multiple medical consultations following. Patient was successfully extubated yesterday and continues to be extremely lethargic. Patient was maintained on Precedex as well as TPN and currently nothing by mouth. Patient had developed an anastomotic leak and taken back to the OR on June 24 and underwent takedown of colorectal anastomosis with conversion to Ly's procedure and colostomy. Patient is continued on antibiotics in the form of Zosyn as well and culture showing preliminary anaerobic gram-negative bacilli and abdominal wound was showing E. coli with pseudomonas aeruginosa along with Nighat and strep group B. Cultures also showing Nighat and will add Diflucan. Potassium 2.9 and will replace per protocol and also recommend replacing magnesium which is currently 1.8. Blood sugars appear slightly more elevated and will add low-dose long- acting and monitor closely 06/28/2023 Patient is seen in follow-up in the ICU currently on high flow airvo and off BiPAP. Patient continues on TPN Precedex is often patient is a little more awake today. Patient is on Cleviprex and as patient remains nothing by mouth and home blood pressure medications have been on hold. Per nursing staff there is some stool starting in the ostomy. Blood sugars have been elevated and will increase the dose of long-acting and continue sliding scale. Patient is afebrile maintained on antibiotics with fluconazole. Patient is reporting a lot of pain and discomfort in the abdomen. A.m. labs pending at this time. 06/29/2023 Patient is seen in follow-up today currently maintained on airvo and being titrated down currently at 40%. Patient with multiple medical consultations following including ostomy nurse and scheduled for education of the ostomy today. Patient is very tearful when discussing that she has an ostomy. There is some stool and gas noted in the ostomy. Patient to have physical therapy evaluation today. Patient will likely need ECF on discharge for continued strengthening and mobility. Mother at the bedside today who is here from [place] visiting since the surgery and has been provided with resources for ECF in the area and has been visiting them. Patient is asking for food and water although currently nothing by mouth and maintained on TPN. Blood sugars are becoming more elevated and uncontrolled currently maintained on insulin every 6 per TPN and ICU protocol along with long-acting and will increase the long- acting. Pain is not controlled and maintained on morphine and being transitioned to Dilaudid. Patient is off Precedex and Cleviprex drip and continued on antibiotics along with antifungal medications. Patient also being followed by wound care and minimal output noted in the JG drain time of exam. 06/30/2023 Patient evaluated in follow up in the intensive care unit. Patient has been weaned down to 5L nasal cannula with oxygen saturation of 98%. Patient feels hu ngry and wants to eat food. She is making adequate stool per ostomy. NG tube remains in place with gastric output of 250 ml in the last 24 hours. Midline dressing in place with wound care instructions to change every MWF apply absorptive silver role moistened and pack if needed. Cover with AVD [employer] and paper tape. Wound care following. Patient remains on TPN. Patient also remains on IV zosyn and IV fluconazole. White count has normalized to 8.8. Sodium up to 135. Blood sugar high 200s. Review of systems: Constitutional: reports of fatigue, no fever, or chills Cardiovascular: No reports of chest pain or palpitations Respiratory: reports of shortness of breath GI: No reports of nausea, vomiting, or diarrhea, reports continued abdominal pain, stool and gas noted in the ostomy : No reports of dysuria or retention Neurovascular: reports of generalized weakness All medications have been reviewed Physical exam: GENERAL: The patient is more awake today, AO x 3 on 5L of oxygen. HEENT: Pupils are round and equally reacting to light. EOMI. No scleral icterus. No conjunctival pallor. Normocephalic, atraumatic. No pharyngeal erythema. No thyromegaly. CARDIOVASCULAR: S1 and S2 muffled PULMONARY:Diminished breath sounds bilaterally with some scattered faint crackles noted, no wheezing, coarse rhonchi ABDOMEN: Soft, periumbilical tenderness ,tenderness, continues to be distended, normoactive bowel sounds. No palpable organomegaly. surgical wound dressing currently intact. Colostomy bag with stool noted MUSCULOSKELETAL: No joint swelling or deformity. EXTREMITIES: No cyanosis, clubbing, or pedal edema. Generalized edema noted to be improved of the upper and lower extremities today. NEUROLOGICAL: Gross neurological examination did not reveal any focal deficits. Diffusely weak SKIN: No rashes. no petechiae. Assessment: Acute abdomen secondary to breakdown of anastomosis status post takedown of colorectal anastomosis with conversion to Ly's procedure and end colostomy septic shock secondary to intra-abdominal infection, improving Hypokalemia, improved. Elevated lactic acid secondary to an anastomotic leak with fecal matter, improved Acute hypoxic respiratory failure secondary to above requiring intubation and mechanical ventilation, status post extubation currently weaned down to 5L of oxygen. Acute diverticulitis status post low anterior resection of the colon (06/18) Ovarian cyst status post bilateral ovarian cystectomy History of DVT Diabetes mellitus, uncontrolled with hyperglycemia Hypertension Hyperlipidemia History of CVA GI prophylaxis DVT prophylaxis Full code Plan: Continue Zosyn as cultures are showing Pseudomonas, E. coli, strep group B, Nighat and will continue Diflucan as well Continue with potassium and electrolyte replacement per protocol Patient is extubated and currently maintained off BiPAP, Continue to wean oxygen as tolerated. Encourage incentive spirometer. Continue TPN with nothing by mouth per surgery. NG tube in place with possibility of removing tomorrow. Patient is asking for food. Blood sugars continue to be elevated and will continue long-acting as well as sliding scale. Increase long-acting to twice daily Surgical management as well as pain management per surgery team. Patient having continued pain and morphine ineffective and being transitioned to scheduled Toradol along with Dilaudid PT/OT therapy to evaluate Ostomy nurse following as well providing education. There is stool and gas noted in the ostomy Case management/social work following his patient will definitely need ECF on discharge due to prolonged hospitalization in weakness. Family looking in to ECF within the area Prognosis is guarded Thank you kindly for this consultation. We will continue to follow with general surgery during hospitalization. The impression and plan of care has been dictated by Yeni Avila Nurse Practitioner as directed. Dr. Leydi MD I have performed a history and physical examination and medical decision making of this patient, discussed the same with the dictator, and agree with the dictators assessment and plan as written, documented as a scribe. Based on total visit time, I have performed more than 50% of this visit. Objective - Vital Signs Vital signs: Vital Signs Temp 97.8 F 06/30/23 08:00 Pulse 63 06/30/23 11:43 Resp 10 L 06/30/23 11:00 BP 164/76 06/30/23 11:00 Pulse Ox 98 06/30/23 11:00 FiO2 40 06/30/23 07:53 Intake & Output 06/29/23 06/30/23 06/30/23 18:59 06:59 18:59 Intake Total 1644.7 1228 1015 Output Total 1650 925 655 Balance -5.3 303 360 Weight 80.4 kg Intake: IV 1631 1228 1015 Amino Acid 5%-D15w+Lytes* 996 983 540 E* 1,000 ml @ 90 mls/hr IV .BY DURATION [facility] Rx#: [id number] Fluconazole in NaCl,Iso- 100 Osm 100 mg In Saline 1 50ml.bag @ 50 mls/hr IVPB DAILY@1600 [facility] Rx#: [id number] Piperacillin-Tazobactam 3 175 25 100 .375 gm In Sodium Chloride 0.9% 100 ml @ 25 mls/hr IVPB Q8HR [facility] Rx# :[id number] Potassium Chloride 10 meq 100 In Water For Injection 1 100ml.bag @ 100 mls/hr IVPB Q1H [facility] Rx#: [id number] Potassium Chloride 20 meq 200 In Water For Injection 1 100ml.bag @ 50 mls/hr IVPB Q2H [facility] Rx#: [id number] Sodium Chloride 0.9% 1, 260 20 375 000 ml @ 75 mls/hr IV . [id number] [facility] Rx#:[id number] Intake, IV Titration 13.7 Amount Clevidipine Butyrate 25 13.7 mg In Empty Bag 1 bag @ 1 MG/HR 2 mls/hr IV .Q24H [facility] Rx#:[id number] Output: Gastric Drainage 250 150 Urine 1400 925 505 Other: Voiding Method Indwelling Catheter Indwelling Catheter Indwelling Catheter ABP, PAP, CO, CI - Last Documented Arterial Blood Pressure 160/70 - Labs CBC & Chem 7: 06/30/23 03:30 06/30/23 03:30 Labs: Abnormal Lab Results - Last 24 Hours (Table) 06/29/23 06/29/23 06/29/23 Range/Units 17:32 20:10 20:16 RBC (3.80-5.40) m/uL Hgb (11.4-16.0) gm/dL Hct (34.0-46.0) % Lymphocytes # (1.0-4.8) k/uL Sodium (137-145) mmol/L Potassium 2.9 L (3.5-5.1) mmol/L BUN (7-17) mg/dL Creatinine (0.52-1.04) mg/dL Glucose (74-99) mg/dL POC Glucose (mg/dL) 291 H 285 H (70-110) mg/dL Calcium (8.4-10.2) mg/dL Total Protein (6.3-8.2) g/dL Albumin (3.5-5.0) g/dL 06/30/23 06/30/23 06/30/23 Range/Units 00:03 03:30 03:30 RBC 3.16 L (3.80-5.40) m/uL Hgb 9.6 L D (11.4-16.0) gm/dL Hct 28.7 L (34.0-46.0) % Lymphocytes # 0.9 L (1.0-4.8) k/uL Sodium 135 L (137-145) mmol/L Potassium (3.5-5.1) mmol/L BUN 30 H (7-17) mg/dL Creatinine 0.48 L (0.52-1.04) mg/dL Glucose 286 H (74-99) mg/dL POC Glucose (mg/dL) 323 H (70-110) mg/dL Calcium 8.1 L (8.4-10.2) mg/dL Total Protein 5.1 L (6.3-8.2) g/dL Albumin 2.3 L (3.5-5.0) g/dL 06/30/23 06/30/23 Range/Units 06:39 11:54 RBC (3.80-5.40) m/uL Hgb (11.4-16.0) gm/dL Hct (34.0-46.0) % Lymphocytes # (1.0-4.8) k/uL Sodium (137-145) mmol/L Potassium (3.5-5.1) mmol/L BUN (7-17) mg/dL Creatinine (0.52-1.04) mg/dL Glucose (74-99) mg/dL POC Glucose (mg/dL) 278 H 276 H (70-110) mg/dL Calcium (8.4-10.2) mg/dL Total Protein (6.3-8.2) g/dL Albumin (3.5-5.0) g/dL Assessment and Plan Time with Patient: Less than 30
[2023-06-30] MEDS: FLUCONAZOLE IN NACL,ISO-OSM 100 MG in SALINE 1 50ML.BAG IVPB SCH (15:52)
[2023-06-30] MEDS: SODIUM CHLORIDE 0.9% 1,000 ML IV SCH (16:42)
[2023-06-30 18:08] LABS: Glucose,Whole Blood 289 mg/dL (70-110)
[2023-06-30 20:13] LABS: Glucose,Whole Blood 273 mg/dL (70-110)
[2023-06-30 22:41] LABS: Glucose,Whole Blood 275 mg/dL (70-110)
[2023-07-01] MEDS: 1: MVI, ADULT NO.4 WITH VIT K 10 ML, TRACE (CONC-1ML/DOSE) 1 ML, SODIUM CHLORIDE 4MEQ/ML IV SCH ×6 (00:02)
[2023-07-01] MEDS: DEXMEDETOMIDINE/0.9% NACL(PMX) 400 MCG in EMPTY BAG 1 BAG IV SCH (00:02)
[2023-07-01] MEDS: SODIUM CHLORIDE 0.9% 1,000 ML IV SCH ×4 (00:09→11:37)
[2023-07-01 00:18] LABS: Glucose,Whole Blood 289 mg/dL (70-110)
[2023-07-01] MEDS: HYDROmorphone 1 MG/ML 1 ML SYRINGE IVP PRN ×8 (01:47→23:18)
[2023-07-01] MEDS: KETOROLAC 15 MG/ML 1 ML VIAL IVP SCH ×3 (04:52→17:55)
[2023-07-01] MEDS: INSULIN DETEMIR (LEVEMIR) 100 UNIT/ML SYR SQ SCH ×2 (05:51→20:58)
[2023-07-01] MEDS: INSULIN ASPART (NovoLOG) 100 UNIT/ML VIAL SQ SCH ×3 (05:51→17:16)
[2023-07-01 05:52] LABS: Glucose,Whole Blood 340 mg/dL (70-110)
[2023-07-01 08:08] LABS: Basophils % (A) 0 %; Eosinophils # (A) 0.1 k/uL (0-0.7); Eosinophils % (A) 1 %; HCT 30.3 % (34.0-46.0); HGB 9.8 gm/dL (11.4-16.0); Hypochromasia Slight; Lymphocytes # (A) 0.9 k/uL (1.0-4.8); Lymphocytes % (A) 8 %; MCH 30.2 pg (25.0-35.0); MCHC 32.4 g/dL (31.0-37.0); MCV 93.1 fL (80.0-100.0); Mean Platelet Volume 9.8; Monocytes # (A) 0.4 k/uL (0-1.0); Monocytes % (A) 3 %; Neutrophils # (A) 9.4 k/uL (1.3-7.7); Neutrophils % (A) 87 %; Platelet Count 312 k/uL (150-450); RBC 3.26 m/uL (3.80-5.40); WBC 10.8 k/uL (3.8-10.6)
[2023-07-01] MEDS: IPRATROPIUM-ALBUTEROL 3 ML NEB INHALATION SCH ×4 (08:24→20:52)
[2023-07-01 09:03] LABS: ALT 23 U/L (4-34); AST 32 U/L (14-36); African American GFR (CKD) >90 (>60 ml/min/1.73 sqM); Albumin 2.6 g/dL (3.5-5.0); Albumin/Globulin Ratio 0.8; Alkaline Phosphatase 177 U/L (38-126); Anion Gap 10 mmol/L; Blood Urea Nitrogen 22 mg/dL (7-17); Calcium 8.3 mg/dL (8.4-10.2); Carbon Dioxide 21 mmol/L (22-30); Chloride 105 mmol/L (98-107); Globulin 3.2 g/dL; Glucose 288 mg/dL (74-99); Magnesium 2.2 mg/dL (1.6-2.3); Non-African American GFR(CKD) >90 (>60 ml/min/1.73 sqM); Phosphorus 3.4 mg/dL (2.5-4.5); Potassium 4.4 mmol/L (3.5-5.1); Sodium 136 mmol/L (137-145); Total Protein 5.8 g/dL (6.3-8.2)
[2023-07-01] MEDS: PIPERACILLIN-TAZOBACTAM 3.375 GM in SODIUM CHLORIDE 0.9% 100 ML IVPB SCH (09:07)
[2023-07-01] MEDS: PANTOPRAZOLE 40 MG/10 ML VIAL IVP SCH ×2 (09:08→20:04)
[2023-07-01] MEDS: HEPARIN SODIUM,PORCINE 5,000 UNIT/ML 1 ML VIAL SQ SCH ×2 (09:08→20:04)
[2023-07-01 11:33] LABS: Glucose,Whole Blood 268 mg/dL (70-110)
--- NOTE | 2023-07-01 11:36 | P.PN ---
Subjective Progress Note Date: 07/01/23 Principal diagnosis: Anastomotic leak Patient doing somewhat better. Nasogastric tube with minimal output. Good urine output. She is hungry. She has good ostomy function today. No nausea. White blood cell count 10.8. Objective - Vital Signs Vital signs: Vital Signs Temp 97.8 F 07/01/23 07:01 Pulse 63 07/01/23 09:56 Resp 30 H 07/01/23 09:56 BP 156/90 07/01/23 07:01 Pulse Ox 97 07/01/23 08:24 FiO2 40 06/30/23 07:53 Intake & Output 06/30/23 07/01/23 07/01/23 19:59 06:59 18:59 Intake Total Output Total Balance Intake: IV Amino Acid 5%-D15w+Lytes* E* 1,000 ml @ 90 mls/hr IV .BY DURATION [facility] Rx#: [id number] Fluconazole in NaCl,Iso- Osm 100 mg In Saline 1 50ml.bag @ 50 mls/hr IVPB DAILY@1600 [facility] Rx#: [id number] Piperacillin-Tazobactam 3 .375 gm In Sodium Chloride 0.9% 100 ml @ 25 mls/hr IVPB Q8HR [facility] Rx# :[id number] Sodium Chloride 0.9% 1, 000 ml @ 75 mls/hr IV . [id number] [facility] Rx#:[id number] Output: Gastric Drainage Urine Other: Voiding Method Indwelling Catheter # Voids ABP, PAP, CO, CI - Last Documented Arterial Blood Pressure 160/70 - Exam Abdomen: Soft, nondistended, dressing with small amount of drainage, ostomy function - Labs CBC & Chem 7: 07/01/23 07:14 07/01/23 07:14 Labs: Abnormal Lab Results - Last 24 Hours (Table) 06/30/23 06/30/23 06/30/23 Range/Units 18:07 20:12 22:40 WBC (3.8-10.6) k/uL RBC (3.80-5.40) m/uL Hgb (11.4-16.0) gm/dL Hct (34.0-46.0) % Neutrophils # (1.3-7.7) k/uL Lymphocytes # (1.0-4.8) k/uL Sodium (137-145) mmol/L Carbon Dioxide (22-30) mmol/L BUN (7-17) mg/dL Creatinine (0.52-1.04) mg/dL Glucose (74-99) mg/dL POC Glucose (mg/dL) 289 H 273 H 275 H (70-110) mg/dL Calcium (8.4-10.2) mg/dL Alkaline Phosphatase (38-126) U/L Total Protein (6.3-8.2) g/dL Albumin (3.5-5.0) g/dL 07/01/23 07/01/23 07/01/23 Range/Units 00:17 05:41 07:14 WBC 10.8 H (3.8-10.6) k/uL RBC 3.26 L (3.80-5.40) m/uL Hgb 9.8 L (11.4-16.0) gm/dL Hct 30.3 L (34.0-46.0) % Neutrophils # 9.4 H (1.3-7.7) k/uL Lymphocytes # 0.9 L (1.0-4.8) k/uL Sodium (137-145) mmol/L Carbon Dioxide (22-30) mmol/L BUN (7-17) mg/dL Creatinine (0.52-1.04) mg/dL Glucose (74-99) mg/dL POC Glucose (mg/dL) 289 H 340 H (70-110) mg/dL Calcium (8.4-10.2) mg/dL Alkaline Phosphatase (38-126) U/L Total Protein (6.3-8.2) g/dL Albumin (3.5-5.0) g/dL 07/01/23 07/01/23 Range/Units 07:14 11:31 WBC (3.8-10.6) k/uL RBC (3.80-5.40) m/uL Hgb (11.4-16.0) gm/dL Hct (34.0-46.0) % Neutrophils # (1.3-7.7) k/uL Lymphocytes # (1.0-4.8) k/uL Sodium 136 L (137-145) mmol/L Carbon Dioxide 21 L (22-30) mmol/L BUN 22 H (7-17) mg/dL Creatinine 0.43 L (0.52-1.04) mg/dL Glucose 288 H (74-99) mg/dL POC Glucose (mg/dL) 268 H (70-110) mg/dL Calcium 8.3 L (8.4-10.2) mg/dL Alkaline Phosphatase 177 H (38-126) U/L Total Protein 5.8 L (6.3-8.2) g/dL Albumin 2.6 L (3.5-5.0) g/dL Assessment and Plan (1) Anastomotic leak of intestine Narrative/Plan: Patient slowly improving. We'll remove nasogastric tube and [place] catheter. May have sips of liquids. Increase activity. Continue antibiotics. Continue local wound care. Current Visit: Yes Status: Acute Code(s): K91.89 - OTH POSTPROCEDURAL COMPLICATIONS AND DISORDERS OF DGSTV SYS SNOMED Code(s): 252725293
--- NOTE | 2023-07-01 13:42 | P.PN ---
Subjective Progress Note Date: 07/01/23 This is a 53-year-old female patient was undergone a low anterior resection for diverticulitis and the patient is postop day #6. The patient overnight was having abdominal discomfort along with some intermittent chills. No reported fever. She was not passing any flatus and she had no bowel movement for the past 24 hours. The abdomen was protruded and was also tender. The patient had a white cell count of 6.9 with a hemoglobin of 11 and a platelet count of 206. The patient was seen by the on-call surgeon and the patient had a CAT scan of the abdomen and pelvis that showed free air in the abdomen without any extravasation of contrast. There was ascites and subcutaneous seroma involving the anterior pelvis. Based on that, the patient was taken back to the operating room by Bishnu Hurst surgeon and the patient underwent a laparotomy, partial omentectomy and colostomy formation and closure of the rectal stump. The patient was told to have anastomotic leak. Patient arrived today intensive care following her surgery. She is currently on assist control mode at the rate of 14, tidal volume of 400, FiO2 is at 100% with a PEEP of 5. She arrived to the ICU 9 AM this morning. The patient is on no sedatives for now. She is on IV fluids with 75 mL of normal saline. She has a JG drain in the right lower quadrant Doppler being serosanguineous. She has a colostomy in her left lower quadrant. She is hemodynamically stable. No hypotension. Cardiac rhythm is sinus tachycardia with a rate of 122. She is currently on a combination of Rocephin and Flagyl. Labs from today shows a white cell count of 4.5 with a hemoglobin 12.8, BUN is still pending. Creatinine is pending. Serum bicarb is 18 and sodium levels of 135. Glucose at 133. Urine output to be monitored and the patient has approximately 100 mL in her [place] bag. Reevaluated today on 06/25/23, patient remains in the ICU, intubated and mechanically ventilated. She is on assist control rate of 24 tidal volume 400 FiO2 50% and PEEP of 5 ABG showed a pO2 of 107 pCO2 35 pH of 7.39. Patient is on propofol at 60 mcg/kg/m she is also on 0.9 normal saline at 1 50 mL per hour she is now off norepinephrine. Maintained on Zosyn for her peritonitis. Patient does have a baseline of CVA and mental health issues I am a bit reluctant to proceed to weaning and extubating the patient today, she went off norepinephrine earlier today, I plan to continue to monitor the patient and we will address weaning and possibly extubation in the next 24 hours. Chest x-ray showed no evidence of active disease. WBC count is 9.4 hemoglobin 11.5 basic metabolic profile is normal renal profile is normal blood sugar is 193 Patient was reevaluated today on 06/26/23, remains in the ICU intubated and mechanically ventilated. Patient is sedated, she is requiring propofol at 50 mg/kg/m. And she is frequently receiving Dilaudid for pain. She is on assist control rate of 24 tidal volume 400 FiO2 50% PEEP of 5 ABG showed a pO2 of 140 pCO2 34 pH of 7.46, hence her FiO2 was cut down to 40% and her rate was cut down to 20. Patient seems to be quite edematous hence a dose of Lasix was given today 40 mg IV push 1 and her IV fluid was cut down to 75 mL per hour patient remains on TPN. Her urine output is about 40 mL per hour. Patient remains empirically on Zosyn for her acute abdomen presentation. Labs today showed W set of 7.8 hemoglobin 9.6 platelets of 229 basic metabolic profile is normal renal profile is normal, chest x-ray showed right lower lobe atelectasis. Doubt pneumonia. Patient was reevaluated today on 06/27/23, patient was extubated yesterday, tolerated the extubation well however overnight the patient had extra work of breathing, she developed what seems to be almost stridor, unable to take a deep breath and unable to clear secretions, patient was given diuretics, bronchodilators, racemic epinephrine, but she responded well after she was placed on BiPAP. She is now on BiPAP, 10/5/50%, she is also on Precedex at 0.5 mcg/kg per hour. She is on TPN at 83 mL per hour patient is also receiving Zosyn. Continues to have functional colostomy with serosanguineous fluid noted in the colostomy bag and she has minimal drainage in the JG drain. Overall the patient is marginal, she is definitely critically ill, hopefully will not require reintubation. Will recommend follow-up ABG and follow-up chest x-ray this morning on this patient. In the meantime I'm recommending we'll continue BiPAP, and if her volumes become low to increase IPAP from 10-14. WC count today is 7.9 hemoglobin is 10, basic metabolic profile is normal except for potassium of 2.9 being addressed accordingly Reevaluated today on 06/28/23, patient remains in the ICU, patient was on BiPAP through the night, earlier this morning the patient was transitioned to nasal cannula. She is on 6 L high flow nasal cannula, O2 saturation is in the mid 90s. Patient was on Precedex yesterday, however she became bradycardic and hypotensive patient required clevidipine, and we have discontinued her Precedex at night. She is now on clevidipine for milligrams per hour patient is more awake today compared to the last 2 days, she is following instructions, appropriate but she had difficulty coughing and cannot clear much of her secret ions she seems to gag rather than cough. Patient is also on TPN at 83 mL per hour remains on Zosyn. Today I am recommending aggressive incentive spirometry and the general surgery staff to evaluate her colostomy, patient has open sutures around the site. Although her colostomy seems to be functional. Patient denies any pain denies any shortness of breath CBC is relatively normal hemoglobin is 9.4 WBC count is 9.3 basic metabolic profile is normal and renal profile is normal, chest x-ray showed minimal right basilar atelectasis, right diaphragm elevation, otherwise unremarkable Reevaluated today on 06/29/23, patient remains in the ICU, still requiring clevidipine at 1 mg/h. She was placed on aerosol last night with 50% FiO2 and 55 L flow. Patient seems to be doing well she seems to be generally weak, have abdominal pain seems to be fairly well controlled with Dilaudid and Toradol. Patient continues to have good urine output, she is intermittently laced on BiPAP 14/6/50%. Patient has good output from her ostomy. And the plan today is to transfer the patient out of the bed to a bedside chair. And hopefully ambulate. Remains on clevidipine, she is also on TPN, fluconazole and Zosyn. WBC count is 11.1 hemoglobin 11.3 basic metabolic profile is normal and renal profile is normal Was reevaluated today on 06/30/23, patient remains in the ICU, she is on 5 L nasal cannula, doing well, seems to be very comfortable, and not in any distress. Remains on TPN at 90 mL per hour she is also on Zosyn and fluconazole. Patient is afebrile, hemodynamically stable, remains on blood pressure medications for her elevated blood pressure. WBC count is 8.8 hemoglobin is 9.6 basic metabolic profile is normal renal profile is normal, chest x-ray showed no evidence of active disease. The patient is seen today 07/01/2023 in follow-up on the regular medical floor. She is sitting up in a chair at the bedside. Awake and alert in no acute distress. Doing quite a bit better. She is maintaining O2 saturations in the 90s on 3 L/m per nasal cannula. Abdominal wound was positive for E. coli, pseudomonas aeruginosa, Nighat, strep agalactiae, group B. Peritoneal fluid is positive for anaerobic gram-negative bacilli 2. White count 10.8. Hemoglobin 9.8. Sodium 136. Potassium 4.4. Bicarb 21. BUN 22. Creatinine 0.43. Glucose 288. AST 23. ALT 177. Nasogastric tube remains in place. She is continued on TPN and lipids for nutritional support. Remains on flucanazole. H eparin for DVT prophylaxis. Objective - Vital Signs Vital signs: Vital Signs Temp 97.8 F 07/01/23 07:01 Pulse 66 07/01/23 12:01 Resp 30 H 07/01/23 09:56 BP 156/90 07/01/23 07:01 Pulse Ox 97 07/01/23 08:24 FiO2 40 06/30/23 07:53 Intake & Output 06/30/23 07/01/23 07/01/23 19:59 06:59 18:59 Intake Total Output Total 250 Balance -250 Intake: IV Amino Acid 5%-D15w+Lytes* E* 1,000 ml @ 90 mls/hr IV .BY DURATION [facility] Rx#: [id number] Fluconazole in NaCl,Iso- Osm 100 mg In Saline 1 50ml.bag @ 50 mls/hr IVPB DAILY@1600 [facility] Rx#: [id number] Piperacillin-Tazobactam 3 .375 gm In Sodium Chloride 0.9% 100 ml @ 25 mls/hr IVPB Q8HR [facility] Rx# :[id number] Sodium Chloride 0.9% 1, 000 ml @ 75 mls/hr IV . [id number] [facility] Rx#:[id number] Output: Gastric Drainage Urine 250 Other: Voiding Method Indwelling Catheter # Voids ABP, PAP, CO, CI - Last Documented Arterial Blood Pressure 160/70 - Exam GENERAL EXAM: Alert, pleasant 53-year-old female, on 3 L nasal cannula, up in a chair, fairly comfortable in no apparent distress. HEAD: Normocephalic. EYES: Normal reaction of pupils, equal size. NOSE: Nasogastric tube remains in place. Clear with pink turbinates. THROAT: No erythema or exudates. NECK: No masses, no JVD. CHEST: No chest wall deformity. LUNGS: Equal air entry with no crackles, wheeze, rhonchi or dullness. CVS: S1 and S2 normal with no audible murmur, regular rhythm. ABDOMEN: Dressing dry and intact, ostomy functional. SPINE: No scoliosis or deformity SKIN: No rashes CENTRAL NERVOUS SYSTEM: No focal deficits, tone is normal in all 4 extremities. EXTREMITIES: There is no peripheral edema. No clubbing, no cyanosis. Peripheral pulses are intact. - Labs CBC & Chem 7: 07/01/23 07:14 07/01/23 07:14 Labs: Abnormal Lab Results - Last 24 Hours (Table) 06/30/23 06/30/23 06/30/23 Range/Units 18:07 20:12 22:40 WBC (3.8-10.6) k/uL RBC (3.80-5.40) m/uL Hgb (11.4-16.0) gm/dL Hct (34.0-46.0) % Neutrophils # (1.3-7.7) k/uL Lymphocytes # (1.0-4.8) k/uL Sodium (137-145) mmol/L Carbon Dioxide (22-30) mmol/L BUN (7-17) mg/dL Creatinine (0.52-1.04) mg/dL Glucose (74-99) mg/dL POC Glucose (mg/dL) 289 H 273 H 275 H (70-110) mg/dL Calcium (8.4-10.2) mg/dL Alkaline Phosphatase (38-126) U/L Total Protein (6.3-8.2) g/dL Albumin (3.5-5.0) g/dL 07/01/23 07/01/23 07/01/23 Range/Units 00:17 05:41 07:14 WBC 10.8 H (3.8-10.6) k/uL RBC 3.26 L (3.80-5.40) m/uL Hgb 9.8 L (11.4-16.0) gm/dL Hct 30.3 L (34.0-46.0) % Neutrophils # 9.4 H (1.3-7.7) k/uL Lymphocytes # 0.9 L (1.0-4.8) k/uL Sodium (137-145) mmol/L Carbon Dioxide (22-30) mmol/L BUN (7-17) mg/dL Creatinine (0.52-1.04) mg/dL Glucose (74-99) mg/dL POC Glucose (mg/dL) 289 H 340 H (70-110) mg/dL Calcium (8.4-10.2) mg/dL Alkaline Phosphatase (38-126) U/L Total Protein (6.3-8.2) g/dL Albumin (3.5-5.0) g/dL 07/01/23 07/01/23 Range/Units 07:14 11:31 WBC (3.8-10.6) k/uL RBC (3.80-5.40) m/uL Hgb (11.4-16.0) gm/dL Hct (34.0-46.0) % Neutrophils # (1.3-7.7) k/uL Lymphocytes # (1.0-4.8) k/uL Sodium 136 L (137-145) mmol/L Carbon Dioxide 21 L (22-30) mmol/L BUN 22 H (7-17) mg/dL Creatinine 0.43 L (0.52-1.04) mg/dL Glucose 288 H (74-99) mg/dL POC Glucose (mg/dL) 268 H (70-110) mg/dL Calcium 8.3 L (8.4-10.2) mg/dL Alkaline Phosphatase 177 H (38-126) U/L Total Protein 5.8 L (6.3-8.2) g/dL Albumin 2.6 L (3.5-5.0) g/dL Assessment and Plan Assessment: Acute abdomen/anastomotic leak following a low anterior resection. The patient was taken to the operating room and the patient underwent an extensive laparotomy, partial omentectomy, colostomy formation of this; and closure of the rectal stump. The patient is postop day #7 Low anterior resection for diverticulitis and the patient is postop day number #13 Acute hypoxic respiratory failure, extubated 2 days ago, required BiPAP, and requiring airvo. Improving and currently on 3 L nasal cannula Sinus tachycardia, resolved Bradycardia secondary to Precedex which has been discontinued Diabetes mellitus 2 Hypertension Hyperlipidemia History of CVA with expressive aphasia Previous history of DVT maintained on anticoagulation with Eliquis on outpatient basis. Currently off anticoagulants, will resume once cleared by surgery to go back on anticoagulations Poorly controlled blood pressure patient is requiring clevidipine,, will apply and clonidine patch and hopefully discontinue the drip Plan: The patient was seen and evaluated Labs and medications reviewed Improved and on 3 L nasal cannula Continue the current treatment plan The FiO2 as tolerated Increase her activity as tolerated We will continue to follow I have personally seen and examined the patient, performed the documentation and the assessment and plan as written. Number of minutes spent on the visit: 10.
--- NOTE | 2023-07-01 15:36 | P.PN ---
Subjective Progress Note Date: 07/01/23 his is a pleasant 53 years old femalepresents with diverticulitis and bilateral ovarian cyst. She status post low anterior resection with bilateral ovarian cystectomy and partial omentectomy. sHe tolerates diet well, abdominal pain is minimal. She had little watery bowel movement yesterday. Eliquis was started hemodynamically stable and labs were reviewed 06/23/2023 Patient is seen and examined by me at bedside. Patient had increasing abdominal pain and distention. I discussed the case with the staff were discussed with surgery team as well who were following the case closely. Surgical team ordered abdominal x-ray which showed large pneumo peritoneal larger than expected for postop day. Then they ordered a CT of the abdomen and pelvis which showed free air present within the abdomen. With ascites. Patient was taken for emergent exploratory laparotomy and possible bowel resection and after the procedure patient was taken to the ICU. Patient was started on antibiotic with Flagyl and ceftriaxone as well as aggressive hydration with normal saline 100 mL per hour. Blood pressure improved and with systolic was 140-160. Patient was on room air saturating about 95%. She had low-grade temperature in the morning of 99.9. Showing WBCs of 8.4, hemoglobin 12.9. Platelet count 221. Creatinine is 0.6. Glucose controlled. Electrolytes within the normal. 06/24/2023 patient yesterday she had worsening abdominal pain and distention. Surgery team will follow closely. Several images were requested showing free air, And patient eventually was taken to the operation room As per surgery team patient underwent (Reopening of laparotomy, lysis of adhesions. Takedown of colorectal anastomosis with conversion to Ly's procedure i.e. and colostomy with closed distal pouch) and it was feculent material in the peritoneal cavity secondary to anastomotic breakdown. Patient was placed on antibiotics. Currently her antibiotics were changed to Zosyn to cover both gram-negative and in microvolts. Patient currently in the ICU sedated and intubated on mechanical ventilation. Her abdomen is less distended and left lower colostomy back in place. Her blood pressure was on the low side she received 2 doses of normal saline bolus of 1 L each. Also she was placed on small dose of pressors. Patient remains tachycardic and tachypneic and she had a fever of 103 this morning Lactic acid is elevated at 2.7, came back to normal at 1.6 CBC, BMP and liver enzymes were unremarkable. Except for mildly elevated ALT and low elbow made. Chest x-ray from this morning showing atelectasis. Case was discussed with pulmonary/critical care. 06/25/2023 pt is sedated and intubated and pulmonary critical care team help with the vent managment , pt had uneventful night , she was on less levophed dose in the morning than yesterday, her pressor was discontinued later, her bp improved through the day and systolic bp 120-130 she has soft abdomen and colostomy back is empty only from little serosanguinous fluid wbc is 9.4, hb 11.5, platelet is normal her eliquis is still on hold , and dvt px is machical now till cleared by surgery she is on zosyn, fever subsided , no leukocytosis , and pt is started on TPN at 30 ml per hr 06/26/2023 Patient is still intubated and sedated in the ICU with pulmonary team help with mechanical ventilation management Propofol may be discontinued soon to help her mentation. Chest lungs have mild leukocytosis. She still has mild fever 99.8, tachypneic and tachycardic but she is improving slowly and gradually. She is On TPN at 30 ML/H, Normal Saline at 50 ML and Zosyn. Blood Culture Also Growing Sensitive Pseudomonas and E. coli with Nighat 06/27/2023 Patient is seen and evaluated and follow-up maintained on BiPAP with multiple medical consultations following. Patient was successfully extubated yesterday and continues to be extremely lethargic. Patient was maintained on Precedex as well as TPN and currently nothing by mouth. Patient had developed an anastomotic leak and taken back to the OR on June 24 and underwent takedown of colorectal anastomosis with conversion to Ly's procedure and colostomy. Patient is continued on antibiotics in the form of Zosyn as well and culture showing preliminary anaerobic gram-negative bacilli and abdominal wound was showing E. coli with pseudomonas aeruginosa along with Nighat and strep group B. Cultures also showing Nighat and will add Diflucan. Potassium 2.9 and will replace per protocol and also recommend replacing magnesium which is currently 1.8. Blood sugars appear slightly more elevated and will add low-dose long- acting and monitor closely 06/28/2023 Patient is seen in follow-up in the ICU currently on high flow airvo and off BiPAP. Patient continues on TPN Precedex is often patient is a little more awake today. Patient is on Cleviprex and as patient remains nothing by mouth and home blood pressure medications have been on hold. Per nursing staff there is some stool starting in the ostomy. Blood sugars have been elevated and will increase the dose of long-acting and continue sliding scale. Patient is afebrile maintained on antibiotics with fluconazole. Patient is reporting a lot of pain and discomfort in the abdomen. A.m. labs pending at this time. 06/29/2023 Patient is seen in follow-up today currently maintained on airvo and being titrated down currently at 40%. Patient with multiple medical consultations following including ostomy nurse and scheduled for education of the ostomy today. Patient is very tearful when discussing that she has an ostomy. There is some stool and gas noted in the ostomy. Patient to have physical therapy evaluation today. Patient will likely need ECF on discharge for continued strengthening and mobility. Mother at the bedside today who is here from [place] visiting since the surgery and has been provided with resources for ECF in the area and has been visiting them. Patient is asking for food and water although currently nothing by mouth and maintained on TPN. Blood sugars are becoming more elevated and uncontrolled currently maintained on insulin every 6 per TPN and ICU protocol along with long-acting and will increase the long- acting. Pain is not controlled and maintained on morphine and being transitioned to Dilaudid. Patient is off Precedex and Cleviprex drip and continued on antibiotics along with antifungal medications. Patient also being followed by wound care and minimal output noted in the JG drain time of exam. 06/30/2023 Patient evaluated in follow up in the intensive care unit. Patient has been weaned down to 5L nasal cannula with oxygen saturation of 98%. Patient feels hu ngry and wants to eat food. She is making adequate stool per ostomy. NG tube remains in place with gastric output of 250 ml in the last 24 hours. Midline dressing in place with wound care instructions to change every MWF apply absorptive silver role moistened and pack if needed. Cover with AVD [employer] and paper tape. Wound care following. Patient remains on TPN. Patient also remains on IV zosyn and IV fluconazole. White count has normalized to 8.8. Sodium up to 135. Blood sugar high 200s. 07/01/2023 Patient has been downgraded from the ICU evaluated today on the medical floor. NG tube remains. Patient has active bowel sounds and making stool from the ostomy. She is hungry asking for food. Remains on TPN. Surgery recommending to remove IDC and NG tube today and patient can have sips of liquids. Review of systems: Constitutional: reports of fatigue, no fever, or chills Cardiovascular: No reports of chest pain or palpitations Respiratory: reports of shortness of breath GI: No reports of nausea, vomiting, stool and gas noted in the ostomy : No reports of dysuria or retention Neurovascular: reports of generalized weakness All medications have been reviewed Physical exam: GENERAL: The patient is more awake today, AO x 3 on 5L of oxygen. HEENT: Pupils are round and equally reacting to light. EOMI. No scleral icterus. No conjunctival pallor. Normocephalic, atraumatic. No pharyngeal erythema. No thyromegaly. CARDIOVASCULAR: S1 and S2 muffled PULMONARY:Diminished breath sounds bilaterally with some scattered faint crackles noted, no wheezing, coarse rhonchi ABDOMEN: Soft, periumbilical tenderness ,tenderness, continues to be distended, normoactive bowel sounds. No palpable organomegaly. surgical wound dressing currently intact. Colostomy bag with stool noted MUSCULOSKELETAL: No joint swelling or deformity. EXTREMITIES: No cyanosis, clubbing, or pedal edema. Generalized edema noted to be improved of the upper and lower extremities today. NEUROLOGICAL: Gross neurological examination did not reveal any focal deficits. Diffusely weak SKIN: No rashes. no petechiae. Assessment: Acute abdomen secondary to breakdown of anastomosis status post takedown of co lorectal anastomosis with conversion to Ly's procedure and end colostomy septic shock secondary to intra-abdominal infection, improving Hypokalemia, improved. Elevated lactic acid secondary to an anastomotic leak with fecal matter, improved Acute hypoxic respiratory failure secondary to above requiring intubation and mechanical ventilation, status post extubation currently weaned down to 5L of oxygen. Acute diverticulitis status post low anterior resection of the colon (06/18) Ovarian cyst status post bilateral ovarian cystectomy History of DVT Diabetes mellitus, uncontrolled with hyperglycemia Hypertension Hyperlipidemia History of CVA GI prophylaxis DVT prophylaxis Full code Plan: Continue Zosyn as cultures are showing Pseudomonas, E. coli, strep group B, Nighat and will continue Diflucan as well Continue with potassium and electrolyte replacement per protocol Patient is extubated and currently maintained off BiPAP, Continue to wean oxygen as tolerated. Encourage incentive spirometer. Continue TPN with nothing by mouth per surgery. NG tube will be removed today and pt cleared for sips of liquids. Blood sugars continue to be elevated and will continue long-acting as well as sliding scale. Increase long-acting to twice daily Surgical management as well as pain management per surgery team. On IV toradol and IV diluadid. PT/OT therapy to evaluate Ostomy nurse following as well providing education. There is stool and gas noted in the ostomy Case management/social work following his patient will definitely need ECF on discharge due to prolonged hospitalization in weakness. Family looking in to ECF within the area Prognosis is guarded Thank you kindly for this consultation. We will continue to follow with general surgery during hospitalization. The impression and plan of care has been dictated by Yeni Avila, Nurse Practitioner as directed. Dr. Leydi MD I have performed a history and physical examination and medical decision making of this patient, discussed the same with the dictator, and agree with the dictators assessment and plan as written, documented as a scribe. Based on total visit time, I have performed more than 50% of this visit. Objective - Vital Signs Vital signs: Vital Signs Temp 98.0 F 07/01/23 13:00 Pulse 71 07/01/23 13:00 Resp 27 H 07/01/23 13:00 BP 135/82 07/01/23 13:00 Pulse Ox 96 07/01/23 13:00 FiO2 40 06/30/23 07:53 Intake & Output 06/30/23 07/01/23 07/01/23 19:59 06:59 18:59 Intake Total Output Total 250 Balance -250 Intake: IV Amino Acid 5%-D15w+Lytes* E* 1,000 ml @ 90 mls/hr IV .BY DURATION [facility] Rx#: [id number] Fluconazole in NaCl,Iso- Osm 100 mg In Saline 1 50ml.bag @ 50 mls/hr IVPB DAILY@1600 [facility] Rx#: [id number] Piperacillin-Tazobactam 3 .375 gm In Sodium Chloride 0.9% 100 ml @ 25 mls/hr IVPB Q8HR [facility] Rx# :[id number] Sodium Chloride 0.9% 1, 000 ml @ 75 mls/hr IV . [id number] [facility] Rx#:[id number] Output: Gastric Drainage Urine 250 Other: Voiding Method Indwelling Catheter # Voids ABP, PAP, CO, CI - Last Documented Arterial Blood Pressure 160/70 - Labs CBC & Chem 7: 07/01/23 07:14 07/01/23 07:14 Labs: Abnormal Lab Results - Last 24 Hours (Table) 06/30/23 06/30/23 06/30/23 Range/Units 18:07 20:12 22:40 WBC (3.8-10.6) k/uL RBC (3.80-5.40) m/uL Hgb (11.4-16.0) gm/dL Hct (34.0-46.0) % Neutrophils # (1.3-7.7) k/uL Lymphocytes # (1.0-4.8) k/uL Sodium (137-145) mmol/L Carbon Dioxide (22-30) mmol/L BUN (7-17) mg/dL Creatinine (0.52-1.04) mg/dL Glucose (74-99) mg/dL POC Glucose (mg/dL) 289 H 273 H 275 H (70-110) mg/dL Calcium (8.4-10.2) mg/dL Alkaline Phosphatase (38-126) U/L Total Protein (6.3-8.2) g/dL Albumin (3.5-5.0) g/dL 07/01/23 07/01/23 07/01/23 Range/Units 00:17 05:41 07:14 WBC 10.8 H (3.8-10.6) k/uL RBC 3.26 L (3.80-5.40) m/uL Hgb 9.8 L (11.4-16.0) gm/dL Hct 30.3 L (34.0-46.0) % Neutrophils # 9.4 H (1.3-7.7) k/uL Lymphocytes # 0.9 L (1.0-4.8) k/uL Sodium (137-145) mmol/L Carbon Dioxide (22-30) mmol/L BUN (7-17) mg/dL Creatinine (0.52-1.04) mg/dL Glucose (74-99) mg/dL POC Glucose (mg/dL) 289 H 340 H (70-110) mg/dL Calcium (8.4-10.2) mg/dL Alkaline Phosphatase (38-126) U/L Total Protein (6.3-8.2) g/dL Albumin (3.5-5.0) g/dL 07/01/23 07/01/23 Range/Units 07:14 11:31 WBC (3.8-10.6) k/uL RBC (3.80-5.40) m/uL Hgb (11.4-16.0) gm/dL Hct (34.0-46.0) % Neutrophils # (1.3-7.7) k/uL Lymphocytes # (1.0-4.8) k/uL Sodium 136 L (137-145) mmol/L Carbon Dioxide 21 L (22-30) mmol/L BUN 22 H (7-17) mg/dL Creatinine 0.43 L (0.52-1.04) mg/dL Glucose 288 H (74-99) mg/dL POC Glucose (mg/dL) 268 H (70-110) mg/dL Calcium 8.3 L (8.4-10.2) mg/dL Alkaline Phosphatase 177 H (38-126) U/L Total Protein 5.8 L (6.3-8.2) g/dL Albumin 2.6 L (3.5-5.0) g/dL Assessment and Plan Time with Patient: Less than 30
[2023-07-01] MEDS: FLUCONAZOLE IN NACL,ISO-OSM 100 MG in SALINE 1 50ML.BAG IVPB SCH (15:39)
[2023-07-01 16:17] LABS: Glucose,Whole Blood 258 mg/dL (70-110)
[2023-07-02 00:04] LABS: Glucose,Whole Blood 237 mg/dL (70-110)
[2023-07-02] MEDS: KETOROLAC 15 MG/ML 1 ML VIAL IVP SCH ×5 (00:06→22:58)
[2023-07-02] MEDS: INSULIN ASPART (NovoLOG) 100 UNIT/ML VIAL SQ SCH ×4 (00:06→17:04)
[2023-07-02] MEDS: SODIUM CHLORIDE 0.9% 1,000 ML IV SCH (01:06)
[2023-07-02] MEDS: HYDROmorphone 1 MG/ML 1 ML SYRINGE IVP PRN ×5 (02:10→14:24)
[2023-07-02 05:22] LABS: Glucose,Whole Blood 158 mg/dL (70-110)
[2023-07-02] MEDS: INSULIN DETEMIR (LEVEMIR) 100 UNIT/ML SYR SQ SCH (06:29)
[2023-07-02 06:49] LABS: ALT 33 U/L (4-34); AST 35 U/L (14-36); African American GFR (CKD) >90 (>60 ml/min/1.73 sqM); Albumin 2.6 g/dL (3.5-5.0); Albumin/Globulin Ratio 0.8; Alkaline Phosphatase 200 U/L (38-126); Anion Gap 11 mmol/L; Blood Urea Nitrogen 25 mg/dL (7-17); Calcium 8.6 mg/dL (8.4-10.2); Carbon Dioxide 21 mmol/L (22-30); Chloride 105 mmol/L (98-107); Globulin 3.4 g/dL; Glucose 127 mg/dL (74-99); Non-African American GFR(CKD) >90 (>60 ml/min/1.73 sqM); Phosphorus 4.3 mg/dL (2.5-4.5); Potassium 4.3 mmol/L (3.5-5.1); Sodium 137 mmol/L (137-145)
[2023-07-02] MEDS: IPRATROPIUM-ALBUTEROL 3 ML NEB INHALATION SCH ×4 (07:56→20:23)
[2023-07-02] MEDS: PANTOPRAZOLE 40 MG/10 ML VIAL IVP SCH ×2 (08:10→20:10)
[2023-07-02] MEDS: HEPARIN SODIUM,PORCINE 5,000 UNIT/ML 1 ML VIAL SQ SCH ×2 (08:10→20:10)
[2023-07-02 11:14] LABS: Glucose,Whole Blood 227 mg/dL (70-110)
[2023-07-02] MEDS ORDERED: 1: MVI, ADULT NO.4 WITH VIT K 10 ML, TRACE (CONC-1ML/DOSE) 1 ML, SODIUM ACETATE 30 MEQ, IV SCH ×6 (12:00)
--- NOTE | 2023-07-02 12:15 | P.PN ---
Subjective Progress Note Date: 07/02/23 CHIEF COMPLAINT: Diverticulitis HISTORY OF PRESENT ILLNESS: Patient is transferred out of the ICU to regular medical floor yesterday. She had diverticulitis with a lower anterior resection on 06/18/23. She then developed an anastomotic leak and required to be taken back to the OR on 06/24/2023. She is status post takedown of colorectal anastomosis with conversion to Ly's procedure and colostomy with close distal pouch for feculent peritonitis secondary to anastomotic leak. Afebrile. Patient sitting up at bedside chair. JG drain 20ml purulent output. Ostomy functioning. PHYSICAL EXAM: VITAL SIGNS: Reviewed. GENERAL: no acute distress. ABDOMEN: Soft. mildly Distended. Incision with drainage. Aquacel silver packing in place. Ostomy with stool and air present. NEUROLOGIC: Awake and alert ASSESSMENT: 1. Feculent peritonitis secondary to anastomotic leak status post reopening of laparotomy, lysis of adhesions. Takedown of colorectal anastomosis with conversion to Ly's procedure and colostomy 2. Diverticulitis and bilateral ovarian cysts PLAN: -Advance diet to fulls and then advance as tolerated -wean off TPN -Continue pain management -Continue local wound care -process worker working on ECF placement times discharge. -Continue antibiotics -Continue to monitor JG drain output -Check CBC -DVT prophylaxis subcu heparin Physician Juice Scaleman note has been reviewed by physician. Signing provider agrees with the documented findings, assessment, and plan of care. Objective - Vital Signs Vital signs: Vital Signs Temp 97.9 F 07/02/23 06:56 Pulse 66 07/02/23 08:06 Resp 22 07/02/23 06:56 BP 136/77 07/02/23 06:56 Pulse Ox 95 07/02/23 07:58 FiO2 40 06/30/23 07:53 Intake & Output 07/01/23 07/02/23 07/02/23 18:59 06:59 18:59 Intake Total 1026.5 Output Total 600 Balance -600 1026.5 Intake: Intake, IV Titration 1026.5 Amount Mvi, Adult No.4 with Vit 1026.5 K 10 ml Trace (Conc-1Ml/ Dose) 1 ml Sodium Acetate 20 meq Potassium Chloride 10 meq Magnesium Sulfate gm 0.25 gm In Amino Acid 5%-D15w+Lytes* E* 1,000 ml @ 90 mls/hr IV .BY DURATION [facility] Rx#: [id number] Output: Urine 600 Other: Voiding Method Indwelling Catheter Indwelling Catheter Bedside Commode # Voids 1 ABP, PAP, CO, CI - Last Documented Arterial Blood Pressure 160/70 - Labs CBC & Chem 7: 07/02/23 06:01 07/02/23 06:01 Labs: Abnormal Lab Results - Last 24 Hours (Table) 07/01/23 07/01/23 07/02/23 Range/Units 11:31 16:16 00:03 Carbon Dioxide (22-30) mmol/L BUN (7-17) mg/dL Creatinine (0.52-1.04) mg/dL Glucose (74-99) mg/dL POC Glucose (mg/dL) 268 H 258 H 237 H (70-110) mg/dL Alkaline Phosphatase (38-126) U/L Total Protein (6.3-8.2) g/dL Albumin (3.5-5.0) g/dL Triglycerides (0.00-149.00) mg/dL 07/02/23 07/02/23 07/02/23 Range/Units 05:20 06:01 06:01 Carbon Dioxide 21 L (22-30) mmol/L BUN 25 H (7-17) mg/dL Creatinine 0.43 L (0.52-1.04) mg/dL Glucose 127 H (74-99) mg/dL POC Glucose (mg/dL) 158 H (70-110) mg/dL Alkaline Phosphatase 200 H (38-126) U/L Total Protein 6.0 L (6.3-8.2) g/dL Albumin 2.6 L (3.5-5.0) g/dL Triglycerides 218.00 H (0.00-149.00) mg/dL
--- NOTE | 2023-07-02 12:46 | P.PN ---
Subjective Progress Note Date: 07/02/23 This is a 53-year-old female patient was undergone a low anterior resection for diverticulitis and the patient is postop day #6. The patient overnight was having abdominal discomfort along with some intermittent chills. No reported fever. She was not passing any flatus and she had no bowel movement for the past 24 hours. The abdomen was protruded and was also tender. The patient had a white cell count of 6.9 with a hemoglobin of 11 and a platelet count of 206. The patient was seen by the on-call surgeon and the patient had a CAT scan of the abdomen and pelvis that showed free air in the abdomen without any extravasation of contrast. There was ascites and subcutaneous seroma involving the anterior pelvis. Based on that, the patient was taken back to the operating room by Bishnu Hurst surgeon and the patient underwent a laparotomy, partial omentectomy and colostomy formation and closure of the rectal stump. The patient was told to have anastomotic leak. Patient arrived today intensive care following her surgery. She is currently on assist control mode at the rate of 14, tidal volume of 400, FiO2 is at 100% with a PEEP of 5. She arrived to the ICU 9 AM this morning. The patient is on no sedatives for now. She is on IV fluids with 75 mL of normal saline. She has a JG drain in the right lower quadrant Doppler being serosanguineous. She has a colostomy in her left lower quadrant. She is hemodynamically stable. No hypotension. Cardiac rhythm is sinus tachycardia with a rate of 122. She is currently on a combination of Rocephin and Flagyl. Labs from today shows a white cell count of 4.5 with a hemoglobin 12.8, BUN is still pending. Creatinine is pending. Serum bicarb is 18 and sodium levels of 135. Glucose at 133. Urine output to be monitored and the patient has approximately 100 mL in her [place] bag. Reevaluated today on 06/25/23, patient remains in the ICU, intubated and mechanically ventilated. She is on assist control rate of 24 tidal volume 400 FiO2 50% and PEEP of 5 ABG showed a pO2 of 107 pCO2 35 pH of 7.39. Patient is on propofol at 60 mcg/kg/m she is also on 0.9 normal saline at 1 50 mL per hour she is now off norepinephrine. Maintained on Zosyn for her peritonitis. Patient does have a baseline of CVA and mental health issues I am a bit reluctant to proceed to weaning and extubating the patient today, she went off norepinephrine earlier today, I plan to continue to monitor the patient and we will address weaning and possibly extubation in the next 24 hours. Chest x-ray showed no evidence of active disease. WBC count is 9.4 hemoglobin 11.5 basic metabolic profile is normal renal profile is normal blood sugar is 193 Patient was reevaluated today on 06/26/23, remains in the ICU intubated and mechanically ventilated. Patient is sedated, she is requiring propofol at 50 mg/kg/m. And she is frequently receiving Dilaudid for pain. She is on assist control rate of 24 tidal volume 400 FiO2 50% PEEP of 5 ABG showed a pO2 of 140 pCO2 34 pH of 7.46, hence her FiO2 was cut down to 40% and her rate was cut down to 20. Patient seems to be quite edematous hence a dose of Lasix was given today 40 mg IV push 1 and her IV fluid was cut down to 75 mL per hour patient remains on TPN. Her urine output is about 40 mL per hour. Patient remains empirically on Zosyn for her acute abdomen presentation. Labs today showed W set of 7.8 hemoglobin 9.6 platelets of 229 basic metabolic profile is normal renal profile is normal, chest x-ray showed right lower lobe atelectasis. Doubt pneumonia. Patient was reevaluated today on 06/27/23, patient was extubated yesterday, tolerated the extubation well however overnight the patient had extra work of breathing, she developed what seems to be almost stridor, unable to take a deep breath and unable to clear secretions, patient was given diuretics, bronchodilators, racemic epinephrine, but she responded well after she was placed on BiPAP. She is now on BiPAP, 10/5/50%, she is also on Precedex at 0.5 mcg/kg per hour. She is on TPN at 83 mL per hour patient is also receiving Zosyn. Continues to have functional colostomy with serosanguineous fluid noted in the colostomy bag and she has minimal drainage in the JG drain. Overall the patient is marginal, she is definitely critically ill, hopefully will not require reintubation. Will recommend follow-up ABG and follow-up chest x-ray this morning on this patient. In the meantime I'm recommending we'll continue BiPAP, and if her volumes become low to increase IPAP from 10-14. WC count today is 7.9 hemoglobin is 10, basic metabolic profile is normal except for potassium of 2.9 being addressed accordingly Reevaluated today on 06/28/23, patient remains in the ICU, patient was on BiPAP through the night, earlier this morning the patient was transitioned to nasal cannula. She is on 6 L high flow nasal cannula, O2 saturation is in the mid 90s. Patient was on Precedex yesterday, however she became bradycardic and hypotensive patient required clevidipine, and we have discontinued her Precedex at night. She is now on clevidipine for milligrams per hour patient is more awake today compared to the last 2 days, she is following instructions, appropriate but she had difficulty coughing and cannot clear much of her secret ions she seems to gag rather than cough. Patient is also on TPN at 83 mL per hour remains on Zosyn. Today I am recommending aggressive incentive spirometry and the general surgery staff to evaluate her colostomy, patient has open sutures around the site. Although her colostomy seems to be functional. Patient denies any pain denies any shortness of breath CBC is relatively normal hemoglobin is 9.4 WBC count is 9.3 basic metabolic profile is normal and renal profile is normal, chest x-ray showed minimal right basilar atelectasis, right diaphragm elevation, otherwise unremarkable Reevaluated today on 06/29/23, patient remains in the ICU, still requiring clevidipine at 1 mg/h. She was placed on aerosol last night with 50% FiO2 and 55 L flow. Patient seems to be doing well she seems to be generally weak, have abdominal pain seems to be fairly well controlled with Dilaudid and Toradol. Patient continues to have good urine output, she is intermittently laced on BiPAP 14/6/50%. Patient has good output from her ostomy. And the plan today is to transfer the patient out of the bed to a bedside chair. And hopefully ambulate. Remains on clevidipine, she is also on TPN, fluconazole and Zosyn. WBC count is 11.1 hemoglobin 11.3 basic metabolic profile is normal and renal profile is normal Was reevaluated today on 06/30/23, patient remains in the ICU, she is on 5 L nasal cannula, doing well, seems to be very comfortable, and not in any distress. Remains on TPN at 90 mL per hour she is also on Zosyn and fluconazole. Patient is afebrile, hemodynamically stable, remains on blood pressure medications for her elevated blood pressure. WBC count is 8.8 hemoglobin is 9.6 basic metabolic profile is normal renal profile is normal, chest x-ray showed no evidence of active disease. The patient is seen today 07/01/2023 in follow-up on the regular medical floor. She is sitting up in a chair at the bedside. Awake and alert in no acute distress. Doing quite a bit better. She is maintaining O2 saturations in the 90s on 3 L/m per nasal cannula. Abdominal wound was positive for E. coli, pseudomonas aeruginosa, Nighat, strep agalactiae, group B. Peritoneal fluid is positive for anaerobic gram-negative bacilli 2. White count 10.8. Hemoglobin 9.8. Sodium 136. Potassium 4.4. Bicarb 21. BUN 22. Creatinine 0.43. Glucose 288. AST 23. ALT 177. Nasogastric tube remains in place. She is continued on TPN and lipids for nutritional support. Remains on flucanazole. H eparin for DVT prophylaxis. The patient is seen today 07/02/2023 in follow-up on the regular medical floor. She is awake and alert in no acute distress. Sitting up in a chair. Denies any worsening shortness of breath, cough or congestion. Maintaining O2 saturations in the mid 90s on 3 L/m per nasal cannula. She is afebrile. Hemodynamically stable. Sodium 137. Potassium 4.3. Bicarb 21. BUN 25. Creatinine 0.43. Glucose 127. She remains on TPN and lipids for nutritional support. Tolerating sips of clear liquids. She is continued on DuoNeb inhalations. Heparin for DVT prophylaxis. Fluconazole. Objective - Vital Signs Vital signs: Vital Signs Temp 97.9 F 07/02/23 06:56 Pulse 68 07/02/23 11:30 Resp 22 07/02/23 06:56 BP 136/77 07/02/23 06:56 Pulse Ox 95 07/02/23 07:58 FiO2 40 06/30/23 07:53 Intake & Output 07/01/23 07/02/23 07/02/23 18:59 06:59 18:59 Intake Total 1026.5 Output Total 600 Balance -600 1026.5 Intake: Intake, IV Titration 1026.5 Amount Mvi, Adult No.4 with Vit 1026.5 K 10 ml Trace (Conc-1Ml/ Dose) 1 ml Sodium Acetate 20 meq Potassium Chloride 10 meq Magnesium Sulfate gm 0.25 gm In Amino Acid 5%-D15w+Lytes* E* 1,000 ml @ 90 mls/hr IV .BY DURATION [facility] Rx#: [id number] Output: Urine 600 Other: Voiding Method Indwelling Catheter Indwelling Catheter Bedside Commode # Voids 1 ABP, PAP, CO, CI - Last Documented Arterial Blood Pressure 160/70 - Exam GENERAL EXAM: Alert, weak 53-year-old female, on 3 L nasal cannula, up in a chair, comfortable in no apparent distress. HEAD: Normocephalic. EYES: Normal reaction of pupils, equal size. NOSE: Clear with pink turbinates. THROAT: No erythema or exudates. NECK: No masses, no JVD. CHEST: No chest wall deformity. LUNGS: Equal air entry with no crackles, wheeze, rhonchi or dullness. CVS: S1 and S2 normal with no audible murmur, regular rhythm. ABDOMEN: Dressing dry and intact, ostomy functional. JG drain in place. SPINE: No scoliosis or deformity SKIN: No rashes CENTRAL NERVOUS SYSTEM: No focal deficits, tone is normal in all 4 extremities. EXTREMITIES: There is no peripheral edema. No clubbing, no cyanosis. Peripheral pulses are intact. - Labs CBC & Chem 7: 07/01/23 07:14 07/02/23 06:01 Labs: Abnormal Lab Results - Last 24 Hours (Table) 07/01/23 07/02/23 07/02/23 Range/Units 16:16 00:03 05:20 Carbon Dioxide (22-30) mmol/L BUN (7-17) mg/dL Creatinine (0.52-1.04) mg/dL Glucose (74-99) mg/dL POC Glucose (mg/dL) 258 H 237 H 158 H (70-110) mg/dL Alkaline Phosphatase (38-126) U/L Total Protein (6.3-8.2) g/dL Albumin (3.5-5.0) g/dL Triglycerides (0.00-149.00) mg/dL 07/02/23 07/02/23 07/02/23 Range/Units 06:01 06:01 11:13 Carbon Dioxide 21 L (22-30) mmol/L BUN 25 H (7-17) mg/dL Creatinine 0.43 L (0.52-1.04) mg/dL Glucose 127 H (74-99) mg/dL POC Glucose (mg/dL) 227 H (70-110) mg/dL Alkaline Phosphatase 200 H (38-126) U/L Total Protein 6.0 L (6.3-8.2) g/dL Albumin 2.6 L (3.5-5.0) g/dL Triglycerides 218.00 H (0.00-149.00) mg/dL Assessment and Plan Assessment: Acute abdomen/anastomotic leak following a low anterior resection. The patient was taken to the operating room and the patient underwent an extensive laparotomy, partial omentectomy, colostomy formation of this; and closure of the rectal stump. The patient is postop day #8 Low anterior resection for diverticulitis and the patient is postop day number #14 Acute hypoxic respiratory failure, extubated 2 days ago, required BiPAP, and requiring airvo. Improving and currently on 3 L nasal cannula Sinus tachycardia, resolved Bradycardia secondary to Precedex which has been discontinued Diabetes mellitus 2 Hypertension Hyperlipidemia History of CVA with expressive aphasia Previous history of DVT maintained on anticoagulation with Eliquis on outpatient basis. Currently off anticoagulants, will resume once cleared by surgery to go back on anticoagulations Poorly controlled blood pressure patient is requiring clevidipine,, will apply and clonidine patch and hopefully discontinue the drip Plan: The patient was seen and evaluated Labs and medications reviewed Continue the current treatment plan Tolerating sips of clear liquid Increase her activity as tolerated Plan is for subacute rehab at discharge We will continue to follow I have personally seen and examined the patient, performed the documentation and the assessment and plan as written. Number of minutes spent on the visit: 10.
[2023-07-02 12:56] LABS: Basophils % (A) 0 %; Eosinophils # (A) 0.1 k/uL (0-0.7); Eosinophils % (A) 1 %; HCT 29.2 % (34.0-46.0); HGB 9.6 gm/dL (11.4-16.0); Hypochromasia Slight; Lymphocytes # (A) 0.8 k/uL (1.0-4.8); Lymphocytes % (A) 8 %; MCH 30.5 pg (25.0-35.0); MCHC 32.8 g/dL (31.0-37.0); MCV 92.9 fL (80.0-100.0); Monocytes # (A) 0.4 k/uL (0-1.0); Monocytes % (A) 4 %; Neutrophils # (A) 9.1 k/uL (1.3-7.7); Neutrophils % (A) 86 %; Platelet Count 334 k/uL (150-450); RBC 3.14 m/uL (3.80-5.40); RDW 14.1 % (11.5-15.5); WBC 10.6 k/uL (3.8-10.6)
[2023-07-02 16:21] LABS: Glucose,Whole Blood 204 mg/dL (70-110)
[2023-07-02] MEDS: HYDROmorphone 0.5 MG/0.5 ML SYRINGE IVP PRN ×3 (17:04→22:58)
[2023-07-02] MEDS: FLUCONAZOLE IN NACL,ISO-OSM 100 MG in SALINE 1 50ML.BAG IVPB SCH (18:26)
[2023-07-02] MEDS: FAT EMULSION 20% 250 ML IV SCH (18:47)
[2023-07-03 00:50] LABS: Glucose,Whole Blood 110 mg/dL (70-110)
[2023-07-03] MEDS: INSULIN DETEMIR (LEVEMIR) 100 UNIT/ML SYR SQ SCH ×3 (01:10→21:03)
[2023-07-03] MEDS: SODIUM CHLORIDE 0.9% 1,000 ML IV SCH (01:11)
[2023-07-03] MEDS: INSULIN ASPART (NovoLOG) 100 UNIT/ML VIAL SQ SCH ×4 (01:11→17:00)
[2023-07-03] MEDS: HYDROmorphone 0.5 MG/0.5 ML SYRINGE IVP PRN ×2 (01:53→05:23)
[2023-07-03] MEDS: HYDROcodone/APAP 5-325MG 1 EACH TAB PO PRN ×2 (04:33→21:00)
--- NOTE | 2023-07-03 04:59 | P.PN ---
Subjective Progress Note Date: 07/02/23 his is a pleasant 53 years old femalepresents with diverticulitis and bilateral ovarian cyst. She status post low anterior resection with bilateral ovarian cystectomy and partial omentectomy. sHe tolerates diet well, abdominal pain is minimal. She had little watery bowel movement yesterday. Eliquis was started hemodynamically stable and labs were reviewed 06/23/2023 Patient is seen and examined by me at bedside. Patient had increasing abdominal pain and distention. I discussed the case with the staff were discussed with surgery team as well who were following the case closely. Surgical team ordered abdominal x-ray which showed large pneumo peritoneal larger than expected for postop day. Then they ordered a CT of the abdomen and pelvis which showed free air present within the abdomen. With ascites. Patient was taken for emergent exploratory laparotomy and possible bowel resection and after the procedure patient was taken to the ICU. Patient was started on antibiotic with Flagyl and ceftriaxone as well as aggressive hydration with normal saline 100 mL per hour. Blood pressure improved and with systolic was 140-160. Patient was on room air saturating about 95%. She had low-grade temperature in the morning of 99.9. Showing WBCs of 8.4, hemoglobin 12.9. Platelet count 221. Creatinine is 0.6. Glucose controlled. Electrolytes within the normal. 06/24/2023 patient yesterday she had worsening abdominal pain and distention. Surgery team will follow closely. Several images were requested showing free air, And patient eventually was taken to the operation room As per surgery team patient underwent (Reopening of laparotomy, lysis of adhesions. Takedown of colorectal anastomosis with conversion to Ly's procedure i.e. and colostomy with closed distal pouch) and it was feculent material in the peritoneal cavity secondary to anastomotic breakdown. Patient was placed on antibiotics. Currently her antibiotics were changed to Zosyn to cover both gram-negative and in microvolts. Patient currently in the ICU sedated and intubated on mechanical ventilation. Her abdomen is less distended and left lower colostomy back in place. Her blood pressure was on the low side she received 2 doses of normal saline bolus of 1 L each. Also she was placed on small dose of pressors. Patient remains tachycardic and tachypneic and she had a fever of 103 this morning Lactic acid is elevated at 2.7, came back to normal at 1.6 CBC, BMP and liver enzymes were unremarkable. Except for mildly elevated ALT and low elbow made. Chest x-ray from this morning showing atelectasis. Case was discussed with pulmonary/critical care. 06/25/2023 pt is sedated and intubated and pulmonary critical care team help with the vent managment , pt had uneventful night , she was on less levophed dose in the morning than yesterday, her pressor was discontinued later, her bp improved through the day and systolic bp 120-130 she has soft abdomen and colostomy back is empty only from little serosanguinous fluid wbc is 9.4, hb 11.5, platelet is normal her eliquis is still on hold , and dvt px is machical now till cleared by surgery she is on zosyn, fever subsided , no leukocytosis , and pt is started on TPN at 30 ml per hr 06/26/2023 Patient is still intubated and sedated in the ICU with pulmonary team help with mechanical ventilation management Propofol may be discontinued soon to help her mentation. Chest lungs have mild leukocytosis. She still has mild fever 99.8, tachypneic and tachycardic but she is improving slowly and gradually. She is On TPN at 30 ML/H, Normal Saline at 50 ML and Zosyn. Blood Culture Also Growing Sensitive Pseudomonas and E. coli with Nighat 06/27/2023 Patient is seen and evaluated and follow-up maintained on BiPAP with multiple medical consultations following. Patient was successfully extubated yesterday and continues to be extremely lethargic. Patient was maintained on Precedex as well as TPN and currently nothing by mouth. Patient had developed an anastomotic leak and taken back to the OR on June 24 and underwent takedown of colorectal anastomosis with conversion to Ly's procedure and colostomy. Patient is continued on antibiotics in the form of Zosyn as well and culture showing preliminary anaerobic gram-negative bacilli and abdominal wound was showing E. coli with pseudomonas aeruginosa along with Nighat and strep group B. Cultures also showing Nighat and will add Diflucan. Potassium 2.9 and will replace per protocol and also recommend replacing magnesium which is currently 1.8. Blood sugars appear slightly more elevated and will add low-dose long- acting and monitor closely 06/28/2023 Patient is seen in follow-up in the ICU currently on high flow airvo and off BiPAP. Patient continues on TPN Precedex is often patient is a little more awake today. Patient is on Cleviprex and as patient remains nothing by mouth and home blood pressure medications have been on hold. Per nursing staff there is some stool starting in the ostomy. Blood sugars have been elevated and will increase the dose of long-acting and continue sliding scale. Patient is afebrile maintained on antibiotics with fluconazole. Patient is reporting a lot of pain and discomfort in the abdomen. A.m. labs pending at this time. 06/29/2023 Patient is seen in follow-up today currently maintained on airvo and being titrated down currently at 40%. Patient with multiple medical consultations following including ostomy nurse and scheduled for education of the ostomy today. Patient is very tearful when discussing that she has an ostomy. There is some stool and gas noted in the ostomy. Patient to have physical therapy evaluation today. Patient will likely need ECF on discharge for continued strengthening and mobility. Mother at the bedside today who is here from [place] visiting since the surgery and has been provided with resources for ECF in the area and has been visiting them. Patient is asking for food and water although currently nothing by mouth and maintained on TPN. Blood sugars are becoming more elevated and uncontrolled currently maintained on insulin every 6 per TPN and ICU protocol along with long-acting and will increase the long- acting. Pain is not controlled and maintained on morphine and being transitioned to Dilaudid. Patient is off Precedex and Cleviprex drip and continued on antibiotics along with antifungal medications. Patient also being followed by wound care and minimal output noted in the JG drain time of exam. 06/30/2023 Patient evaluated in follow up in the intensive care unit. Patient has been weaned down to 5L nasal cannula with oxygen saturation of 98%. Patient feels hungry and wants to eat food. She is making adequate stool per ostomy. NG tube remains in place with gastric output of 250 ml in the last 24 hours. Midline dressing in place with wound care instructions to change every MWF apply absorptive silver role moistened and pack if needed. Cover with AVD [employer] and paper tape. Wound care following. Patient remains on TPN. Patient also remains on IV zosyn and IV fluconazole. White count has normalized to 8.8. Sodium up to 135. Blood sugar high 200s. 07/01/2023 Patient has been downgraded from the ICU evaluated today on the medical floor. NG tube remains. Patient has active bowel sounds and making stool from the ostomy. She is hungry asking for food. Remains on TPN. Surgery recommending to remove IDC and NG tube today and patient can have sips of liquids. 07/02/2023 Patient is seen and evaluated in follow-up today currently maintained on 3 L via nasal cannula and wean FiO2 as tolerated. Patient continues on TPN for now although diet is being advanced to full liquids per surgery and slowly advance as tolerated. Patient continues to request food and feels hungry. Patient continues with significant weakness and did work with physical therapy today with social work following with plans for going to [facility]. Patient is currently afebrile with no white count and other list reviewed and within normal limits. Blood sugars are improving on increased dose of long-acting twice daily and will continue with Accu-Cheks before meals and at bedtime along with sliding scale. Patient denies any chest pain or shortness of breath. Pain management per surgery services this patient continues to request IV Dilaudid and Toradol is continued and being started on oral [place]. Discussed with nursing staff about limiting IV Dilaudid use. Review of systems: Constitutional: no reports of fatigue, no fever, or chills Cardiovascular: No reports of chest pain or palpitations Respiratory: reports of shortness of breath GI: No reports of nausea, vomiting, or diarrhea, reports feeling hungry : No reports of dysuria or retention Neurovascular: reports of generalized weakness All medications have been reviewed Physical exam: GENERAL: The patient is awake today, alert and oriented 3, well-developed, appears older than stated age, elderly appearing, ill appearing, currently on 3 L nasal cannula HEENT: Pupils are round and equally reacting to light. EOMI. No scleral icterus. No conjunctival pallor. Normocephalic, atraumatic. No pharyngeal erythema. No thyromegaly. CARDIOVASCULAR: S1 and S2 muffled PULMONARY:Diminished breath sounds bilaterally with some scattered coarse rhonchi ABDOMEN: Soft, periumbilical tenderness ,tenderness, less distended, normoactive bowel sounds. No palpable organomegaly. surgical wound dressing currently intact. Colostomy bag with stool noted MUSCULOSKELETAL: No joint swelling or deformity. EXTREMITIES: No cyanosis, clubbing, or pedal edema. NEUROLOGICAL: Gross neurological examination did not reveal any focal deficits. Diffusely weak SKIN: No rashes. no petechiae. Assessment: Acute abdomen secondary to breakdown of anastomosis status post takedown of colorectal anastomosis with conversion to Ly's procedure and end colostomy septic shock secondary to intra-abdominal infection, improving Hypokalemia, being replaced Elevated lactic acid secondary to an anastomotic leak with fecal matter, improved Acute hypoxic respiratory failure secondary to above requiring intubation and mechanical ventilation, status post extubation currently maintained on high flow airvo acute diverticulitis status post low anterior resection of the colon (06/18) Ovarian cyst status post bilateral ovarian cystectomy Worsening pneumo-peritoneam requiring exploratory laparotomy and bowel resection history of DVT Diabetes mellitus, uncontrolled with hyperglycemia Hypertension Hyperlipidemia History of CVA GI prophylaxis DVT prophylaxis Full code Plan: Continue Zosyn as cultures are showing Pseudomonas, E. coli, strep group B, Nighat and will continue Diflucan as well Continue with potassium and electrolyte replacement per protocol Patient is extubated and currently maintained off BiPAP, currently on 3 L via nasal cannula Continue to wean oxygen as tolerated. Encourage incentive spirometer. Continue TPN with slowly advancing per surgery to full liquids Blood sugars continue to be elevated and will continue long-acting as well as sliding scale. Increase long-acting to twice daily Surgical management as well as pain management per surgery team. On IV toradol and IV diluadid. PT/OT therapy to evaluate Ostomy nurse following as well providing education. There is stool and gas noted in the ostomy Case management/social work following his patient will definitely need ECF on discharge due to prolonged hospitalization in weakness. Social work awaiting for updated insurance is patient reports there was a change of insurance starting June 27 Prognosis is guarded Thank you kindly for this consultation. We will continue to follow with general surgery during hospitalization. The impression and plan of care has been dictated by Jennifer Thakkar, Nurse Practitioner as directed. Dr. Leydi MD I have performed a history and examination and MDM of this patient, discussed the same with the dictator, and agree with the dictator's assessment and plan as written ,documented as a scribe. Based on total visit time, I have performed more than 50% of the visit. Objective - Vital Signs Vital signs: Vital Signs Temp 97.9 F 07/02/23 06:56 Pulse 66 11/06/23 08:06 Resp 22 07/02/23 06:56 BP 136/77 07/02/23 06:56 Pulse Ox 95 07/02/23 07:58 FiO2 40 06/30/23 07:53 Intake & Output 07/01/23 07/02/23 07/02/23 18:59 06:59 18:59 Intake Total 1026.5 Output Total 600 Balance -600 1026.5 Intake: Intake, IV Titration 1026.5 Amount Mvi, Adult No.4 with Vit 1026.5 K 10 ml Trace (Conc-1Ml/ Dose) 1 ml Sodium Acetate 20 meq Potassium Chloride 10 meq Magnesium Sulfate gm 0.25 gm In Amino Acid 5%-D15w+Lytes* E* 1,000 ml @ 90 mls/hr IV .BY DURATION [facility] Rx#: [id number] Output: Urine 600 Other: Voiding Method Indwelling Catheter Indwelling Catheter # Voids 1 ABP, PAP, CO, CI - Last Documented Arterial Blood Pressure 160/70 - Labs CBC & Chem 7: 07/02/23 06:01 07/02/23 06:01 Labs: Abnormal Lab Results - Last 24 Hours (Table) 07/01/23 07/01/23 07/01/23 Range/Units 07:14 11:31 16:16 Sodium 136 L (137-145) mmol/L Carbon Dioxide 21 L (22-30) mmol/L BUN 22 H (7-17) mg/dL Creatinine 0.43 L (0.52-1.04) mg/dL Glucose 288 H (74-99) mg/dL POC Glucose (mg/dL) 268 H 258 H (70-110) mg/dL Calcium 8.3 L (8.4-10.2) mg/dL Alkaline Phosphatase 177 H (38-126) U/L Total Protein 5.8 L (6.3-8.2) g/dL Albumin 2.6 L (3.5-5.0) g/dL Triglycerides (0.00-149.00) mg/dL 07/02/23 07/02/23 07/02/23 Range/Units 00:03 05:20 06:01 Sodium (137-145) mmol/L Carbon Dioxide (22-30) mmol/L BUN (7-17) mg/dL Creatinine (0.52-1.04) mg/dL Glucose (74-99) mg/dL POC Glucose (mg/dL) 237 H 158 H (70-110) mg/dL Calcium (8.4-10.2) mg/dL Alkaline Phosphatase (38-126) U/L Total Protein (6.3-8.2) g/dL Albumin (3.5-5.0) g/dL Triglycerides 218.00 H (0.00-149.00) mg/dL 07/02/23 Range/Units 06:01 Sodium (137-145) mmol/L Carbon Dioxide 21 L (22-30) mmol/L BUN 25 H (7-17) mg/dL Creatinine 0.43 L (0.52-1.04) mg/dL Glucose 127 H (74-99) mg/dL POC Glucose (mg/dL) (70-110) mg/dL Calcium (8.4-10.2) mg/dL Alkaline Phosphatase 200 H (38-126) U/L Total Protein 6.0 L (6.3-8.2) g/dL Albumin 2.6 L (3.5-5.0) g/dL Triglycerides (0.00-149.00) mg/dL
[2023-07-03] MEDS: KETOROLAC 15 MG/ML 1 ML VIAL IVP SCH ×3 (05:23→17:00)
[2023-07-03 06:11] LABS: Glucose,Whole Blood 169 mg/dL (70-110)
[2023-07-03] MEDS: lisinopriL 20 MG TAB PO SCH (08:48)
[2023-07-03] MEDS: HYDROmorphone 1 MG/ML 1 ML SYRINGE IVP PRN ×5 (08:48→21:48)
[2023-07-03] MEDS: HEPARIN SODIUM,PORCINE 5,000 UNIT/ML 1 ML VIAL SQ SCH ×2 (08:51→21:00)
[2023-07-03] MEDS: PANTOPRAZOLE 40 MG/10 ML VIAL IVP SCH ×2 (08:52→21:00)
[2023-07-03] MEDS: IPRATROPIUM-ALBUTEROL 3 ML NEB INHALATION SCH ×4 (09:12→21:27)
--- NOTE | 2023-07-03 10:35 | P.PN ---
Subjective Progress Note Date: 07/03/23 CHIEF COMPLAINT: Diverticulitis HISTORY OF PRESENT ILLNES: Patient had diverticulitis with a lower anterior resection on 06/18/23. She then developed an anastomotic leak and required to be taken back to the OR on 06/24/2023. She is status post takedown of colorectal anastomosis with conversion to Ly's procedure and colostomy with close distal pouch for feculent peritonitis secondary to anastomotic leak. Patient does complain of abdominal pain. Denies any nausea or vomiting. Did tolerate regular diet for breakfast. Ostomy is functioning. Afebrile. Labs pending. JG drain 20 mL purulent output PHYSICAL EXAM: VITAL SIGNS: Reviewed. GENERAL: no acute distress. ABDOMEN: Soft. mildly Distended. Incision with drainage and Aquacel silver packing in place. Foul odor. Ostomy with stool and air present. NEUROLOGIC: Awake and alert ASSESSMENT: 1. Feculent peritonitis secondary to anastomotic leak status post reopening of laparotomy, lysis of adhesions. Takedown of colorectal anastomosis with conversion to Ly's procedure and colostomy 2. Diverticulitis and bilateral ovarian cysts PLAN: -Continue regular diet -TPN has been discontinued -Continue pain management -Continue local wound care -dynamic balancer set up worker working on ECF placement at time of discharge. -Continue antibiotics -Continue to monitor JG drain output -DVT prophylaxis subcu heparin Physician Slp Teacher note has been reviewed by physician. Signing provider agrees with the documented findings, assessment, and plan of care. Objective - Vital Signs Vital signs: Vital Signs Temp 98.0 F 07/03/23 06:58 Pulse 62 07/03/23 06:58 Resp 18 07/03/23 06:58 BP 125/83 07/03/23 06:58 Pulse Ox 99 07/03/23 06:58 FiO2 40 06/30/23 07:53 Intake & Output 07/02/23 07/03/23 07/03/23 18:59 06:59 18:59 Intake Total 912 Output Total 20 Balance 912 -20 Weight 80.4 kg Intake: Intake, IV Titration 192 Amount Mvi, Adult No.4 with Vit 192 K 10 ml Trace (Conc-1Ml/ Dose) 1 ml Sodium Acetate 30 meq Potassium Chloride 10 meq Magnesium Sulfate gm 0.25 gm In Amino Acid 5%-D15w+Lytes* E* 1,000 ml @ 90 mls/hr IV .BY DURATION [facility] Rx#: [id number] Oral 720 Output: Drainage 20 Right Lower Abdomen 20 Other: Voiding Method Bedside Commode Bedside Commode # Voids 2 3 1 ABP, PAP, CO, CI - Last Documented Arterial Blood Pressure 160/70 - Labs CBC & Chem 7: 07/02/23 06:01 07/02/23 06:01 Labs: Abnormal Lab Results - Last 24 Hours (Table) 07/02/23 07/02/23 07/02/23 Range/Units 06:01 11:13 16:19 RBC 3.14 L (3.80-5.40) m/uL Hgb 9.6 L (11.4-16.0) gm/dL Hct 29.2 L (34.0-46.0) % Neutrophils # 9.1 H (1.3-7.7) k/uL Lymphocytes # 0.8 L (1.0-4.8) k/uL POC Glucose (mg/dL) 227 H 204 H (70-110) mg/dL 07/03/23 Range/Units 06:10 RBC (3.80-5.40) m/uL Hgb (11.4-16.0) gm/dL Hct (34.0-46.0) % Neutrophils # (1.3-7.7) k/uL Lymphocytes # (1.0-4.8) k/uL POC Glucose (mg/dL) 169 H (70-110) mg/dL
[2023-07-03 11:08] LABS: Glucose,Whole Blood 150 mg/dL (70-110)
[2023-07-03 11:52] LABS: Basophils # (A) 0.1 k/uL (0-0.2); Basophils % (A) 0 %; Eosinophils # (A) 0.1 k/uL (0-0.7); Eosinophils % (A) 1 %; HCT 32.3 % (34.0-46.0); Hypochromasia Moderate; Lymphocytes # (A) 0.8 k/uL (1.0-4.8); Lymphocytes % (A) 7 %; MCH 29.6 pg (25.0-35.0); MCHC 30.9 g/dL (31.0-37.0); MCV 95.8 fL (80.0-100.0); Monocytes # (A) 0.4 k/uL (0-1.0); Monocytes % (A) 3 %; Neutrophils # (A) 10.2 k/uL (1.3-7.7); Neutrophils % (A) 87 %; Platelet Count 396 k/uL (150-450); RBC 3.37 m/uL (3.80-5.40); RDW 14.2 % (11.5-15.5); WBC 11.8 k/uL (3.8-10.6)
[2023-07-03 12:05] LABS: African American GFR (CKD) >90 (>60 ml/min/1.73 sqM); Anion Gap 13 mmol/L; Blood Urea Nitrogen 27 mg/dL (7-17); Calcium 8.5 mg/dL (8.4-10.2); Carbon Dioxide 18 mmol/L (22-30); Chloride 105 mmol/L (98-107); Glucose 149 mg/dL (74-99); Non-African American GFR(CKD) >90 (>60 ml/min/1.73 sqM); Phosphorus 4.9 mg/dL (2.5-4.5); Sodium 136 mmol/L (137-145)
[2023-07-03 12:27] LABS: Potassium 4.6 mmol/L (3.5-5.1)
--- NOTE | 2023-07-03 12:37 | P.PN ---
Subjective Progress Note Date: 07/03/23 This is a 53-year-old female patient was undergone a low anterior resection for diverticulitis and the patient is postop day #6. The patient overnight was having abdominal discomfort along with some intermittent chills. No reported fever. She was not passing any flatus and she had no bowel movement for the past 24 hours. The abdomen was protruded and was also tender. The patient had a white cell count of 6.9 with a hemoglobin of 11 and a platelet count of 206. The patient was seen by the on-call surgeon and the patient had a CAT scan of the abdomen and pelvis that showed free air in the abdomen without any extravasation of contrast. There was ascites and subcutaneous seroma involving the anterior pelvis. Based on that, the patient was taken back to the operating room by Bishnu Hurst surgeon and the patient underwent a laparotomy, partial omentectomy and colostomy formation and closure of the rectal stump. The patient was told to have anastomotic leak. Patient arrived today intensive care following her surgery. She is currently on assist control mode at the rate of 14, tidal volume of 400, FiO2 is at 100% with a PEEP of 5. She arrived to the ICU 9 AM this morning. The patient is on no sedatives for now. She is on IV fluids with 75 mL of normal saline. She has a JG drain in the right lower quadrant Doppler being serosanguineous. She has a colostomy in her left lower quadrant. She is hemodynamically stable. No hypotension. Cardiac rhythm is sinus tachycardia with a rate of 122. She is currently on a combination of Rocephin and Flagyl. Labs from today shows a white cell count of 4.5 with a hemoglobin 12.8, BUN is still pending. Creatinine is pending. Serum bicarb is 18 and sodium levels of 135. Glucose at 133. Urine output to be monitored and the patient has approximately 100 mL in her [place] bag. Reevaluated today on 06/25/23, patient remains in the ICU, intubated and mechanically ventilated. She is on assist control rate of 24 tidal volume 400 FiO2 50% and PEEP of 5 ABG showed a pO2 of 107 pCO2 35 pH of 7.39. Patient is on propofol at 60 mcg/kg/m she is also on 0.9 normal saline at 1 50 mL per hour she is now off norepinephrine. Maintained on Zosyn for her peritonitis. Patient does have a baseline of CVA and mental health issues I am a bit reluctant to proceed to weaning and extubating the patient today, she went off norepinephrine earlier today, I plan to continue to monitor the patient and we will address weaning and possibly extubation in the next 24 hours. Chest x-ray showed no evidence of active disease. WBC count is 9.4 hemoglobin 11.5 basic metabolic profile is normal renal profile is normal blood sugar is 193 Patient was reevaluated today on 06/26/23, remains in the ICU intubated and mechanically ventilated. Patient is sedated, she is requiring propofol at 50 mg/kg/m. And she is frequently receiving Dilaudid for pain. She is on assist control rate of 24 tidal volume 400 FiO2 50% PEEP of 5 ABG showed a pO2 of 140 pCO2 34 pH of 7.46, hence her FiO2 was cut down to 40% and her rate was cut down to 20. Patient seems to be quite edematous hence a dose of Lasix was given today 40 mg IV push 1 and her IV fluid was cut down to 75 mL per hour patient remains on TPN. Her urine output is about 40 mL per hour. Patient remains empirically on Zosyn for her acute abdomen presentation. Labs today showed W set of 7.8 hemoglobin 9.6 platelets of 229 basic metabolic profile is normal renal profile is normal, chest x-ray showed right lower lobe atelectasis. Doubt pneumonia. Patient was reevaluated today on 06/27/23, patient was extubated yesterday, tolerated the extubation well however overnight the patient had extra work of breathing, she developed what seems to be almost stridor, unable to take a deep breath and unable to clear secretions, patient was given diuretics, bronchodilators, racemic epinephrine, but she responded well after she was placed on BiPAP. She is now on BiPAP, 10/5/50%, she is also on Precedex at 0.5 mcg/kg per hour. She is on TPN at 83 mL per hour patient is also receiving Zosyn. Continues to have functional colostomy with serosanguineous fluid noted in the colostomy bag and she has minimal drainage in the JG drain. Overall the patient is marginal, she is definitely critically ill, hopefully will not require reintubation. Will recommend follow-up ABG and follow-up chest x-ray this morning on this patient. In the meantime I'm recommending we'll continue BiPAP, and if her volumes become low to increase IPAP from 10-14. WC count today is 7.9 hemoglobin is 10, basic metabolic profile is normal except for potassium of 2.9 being addressed accordingly Reevaluated today on 06/28/23, patient remains in the ICU, patient was on BiPAP through the night, earlier this morning the patient was transitioned to nasal cannula. She is on 6 L high flow nasal cannula, O2 saturation is in the mid 90s. Patient was on Precedex yesterday, however she became bradycardic and hypotensive patient required clevidipine, and we have discontinued her Precedex at night. She is now on clevidipine for milligrams per hour patient is more awake today compared to the last 2 days, she is following instructions, appropriate but she had difficulty coughing and cannot clear much of her secret ions she seems to gag rather than cough. Patient is also on TPN at 83 mL per hour remains on Zosyn. Today I am recommending aggressive incentive spirometry and the general surgery staff to evaluate her colostomy, patient has open sutures around the site. Although her colostomy seems to be functional. Patient denies any pain denies any shortness of breath CBC is relatively normal hemoglobin is 9.4 WBC count is 9.3 basic metabolic profile is normal and renal profile is normal, chest x-ray showed minimal right basilar atelectasis, right diaphragm elevation, otherwise unremarkable Reevaluated today on 06/29/23, patient remains in the ICU, still requiring clevidipine at 1 mg/h. She was placed on aerosol last night with 50% FiO2 and 55 L flow. Patient seems to be doing well she seems to be generally weak, have abdominal pain seems to be fairly well controlled with Dilaudid and Toradol. Patient continues to have good urine output, she is intermittently laced on BiPAP 14/6/50%. Patient has good output from her ostomy. And the plan today is to transfer the patient out of the bed to a bedside chair. And hopefully ambulate. Remains on clevidipine, she is also on TPN, fluconazole and Zosyn. WBC count is 11.1 hemoglobin 11.3 basic metabolic profile is normal and renal profile is normal Was reevaluated today on 06/30/23, patient remains in the ICU, she is on 5 L nasal cannula, doing well, seems to be very comfortable, and not in any distress. Remains on TPN at 90 mL per hour she is also on Zosyn and fluconazole. Patient is afebrile, hemodynamically stable, remains on blood pressure medications for her elevated blood pressure. WBC count is 8.8 hemoglobin is 9.6 basic metabolic profile is normal renal profile is normal, chest x-ray showed no evidence of active disease. The patient is seen today 07/01/2023 in follow-up on the regular medical floor. She is sitting up in a chair at the bedside. Awake and alert in no acute distress. Doing quite a bit better. She is maintaining O2 saturations in the 90s on 3 L/m per nasal cannula. Abdominal wound was positive for E. coli, pseudomonas aeruginosa, Nighat, strep agalactiae, group B. Peritoneal fluid is positive for anaerobic gram-negative bacilli 2. White count 10.8. Hemoglobin 9.8. Sodium 136. Potassium 4.4. Bicarb 21. BUN 22. Creatinine 0.43. Glucose 288. AST 23. ALT 177. Nasogastric tube remains in place. She is continued on TPN and lipids for nutritional support. Remains on flucanazole. H eparin for DVT prophylaxis. The patient is seen today 07/02/2023 in follow-up on the regular medical floor. She is awake and alert in no acute distress. Sitting up in a chair. Denies any worsening shortness of breath, cough or congestion. Maintaining O2 saturations in the mid 90s on 3 L/m per nasal cannula. She is afebrile. Hemodynamically stable. Sodium 137. Potassium 4.3. Bicarb 21. BUN 25. Creatinine 0.43. Glucose 127. She remains on TPN and lipids for nutritional support. Tolerating sips of clear liquids. She is continued on DuoNeb inhalations. Heparin for DVT prophylaxis. Fluconazole. The patient is seen today 07/03/2023 in follow-up on the regular medical floor. She is resting comfortably in bed. Awake and alert in no acute distress. Maintaining O2 saturations in the 90s on 3 L/m per nasal cannula. She denies any worsening shortness breath, cough or congestion. Denies any significant abdominal discomfort. She is tolerating a low fiber consistent carbohydrate diet. He count 11.8. Hemoglobin 10.0. Platelets 396. Sodium 136. Potassium 4.6. Bicarb 18. BUN 27. Creatinine 0.42. Glucose 149. She is continued on bronchodilators. Heparin for DVT prophylaxis. Objective - Vital Signs Vital signs: Vital Signs Temp 98.0 F 07/03/23 06:58 Pulse 62 07/03/23 06:58 Resp 18 07/03/23 06:58 BP 125/83 07/03/23 06:58 Pulse Ox 99 07/03/23 06:58 FiO2 40 06/30/23 07:53 Intake & Output 07/02/23 07/03/23 07/03/23 18:59 06:59 18:59 Intake Total 912 Output Total 20 Balance 912 -20 Weight 80.4 kg Intake: Intake, IV Titration 192 Amount Mvi, Adult No.4 with Vit 192 K 10 ml Trace (Conc-1Ml/ Dose) 1 ml Sodium Acetate 30 meq Potassium Chloride 10 meq Magnesium Sulfate gm 0.25 gm In Amino Acid 5%-D15w+Lytes* E* 1,000 ml @ 90 mls/hr IV .BY [facility]URATION [facility] Rx#: [id number] Oral 720 Output: Drainage 20 Right Lower Abdomen 20 Other: Voiding Method Bedside Commode Bedside Commode # Voids 2 3 1 ABP, PAP, CO, CI - Last Documented Arterial Blood Pressure 160/70 - Exam GENERAL EXAM: Alert, debilitated 53-year-old female, on 3 L nasal cannula, resting in bed, comfortable in no apparent distress. HEAD: Normocephalic. EYES: Normal reaction of pupils, equal size. NOSE: Clear with pink turbinates. THROAT: No erythema or exudates. NECK: No masses, no JVD. CHEST: No chest wall deformity. LUNGS: Equal air entry with no crackles, wheeze, rhonchi or dullness. CVS: S1 and S2 normal with no audible murmur, regular rhythm. ABDOMEN: Dressing dry and intact, ostomy functional. JG drain in place. SPINE: No scoliosis or deformity SKIN: No rashes CENTRAL NERVOUS SYSTEM: No focal deficits, tone is normal in all 4 extremities. EXTREMITIES: There is no peripheral edema. No clubbing, no cyanosis. Periphera l pulses are intact. - Labs CBC & Chem 7: 07/03/23 11:13 07/03/23 11:13 Labs: Abnormal Lab Results - Last 24 Hours (Table) 07/02/23 07/02/23 07/03/23 Range/Units 06:01 16:19 06:10 WBC (3.8-10.6) k/uL RBC 3.14 L (3.80-5.40) m/uL Hgb 9.6 L (11.4-16.0) gm/dL Hct 29.2 L (34.0-46.0) % MCHC (31.0-37.0) g/dL Neutrophils # 9.1 H (1.3-7.7) k/uL Lymphocytes # 0.8 L (1.0-4.8) k/uL Sodium (137-145) mmol/L Carbon Dioxide (22-30) mmol/L BUN (7-17) mg/dL Creatinine (0.52-1.04) mg/dL Glucose (74-99) mg/dL POC Glucose (mg/dL) 204 H 169 H (70-110) mg/dL Phosphorus (2.5-4.5) mg/dL 07/03/23 07/03/23 07/03/23 Range/Units 11:06 11:13 11:13 WBC 11.8 H (3.8-10.6) k/uL RBC 3.37 L (3.80-5.40) m/uL Hgb 10.0 L (11.4-16.0) gm/dL Hct 32.3 L (34.0-46.0) % MCHC 30.9 L (31.0-37.0) g/dL Neutrophils # 10.2 H (1.3-7.7) k/uL Lymphocytes # 0.8 L (1.0-4.8) k/uL Sodium 136 L (137-145) mmol/L Carbon Dioxide 18 L (22-30) mmol/L BUN 27 H (7-17) mg/dL Creatinine 0.42 L (0.52-1.04) mg/dL Glucose 149 H (74-99) mg/dL POC Glucose (mg/dL) 150 H (70-110) mg/dL Phosphorus 4.9 H (2.5-4.5) mg/dL Assessment and Plan Assessment: Acute abdomen/anastomotic leak following a low anterior resection. The patient was taken to the operating room and the patient underwent an extensive laparotomy, partial omentectomy, colostomy formation of this; and closure of the rectal stump. The patient is postop day #9 Low anterior resection for diverticulitis and the patient is postop day number #15 Acute hypoxic respiratory failure, extubated 2 days ago, required BiPAP, and requiring Airvo. Improving and currently on 3 L nasal cannula Sinus tachycardia, resolved Bradycardia secondary to Precedex which has been discontinued Diabetes mellitus 2 Hypertension Hyperlipidemia History of CVA with expressive aphasia Previous history of DVT maintained on anticoagulation with Eliquis on outpatient basis. Currently off anticoagulants, will resume once cleared by surgery to go back on anticoagulations Poorly controlled blood pressure patient is requiring clevidipine,, will apply and clonidine patch and hopefully discontinue the drip Plan: The patient was seen and evaluated Labs and medications reviewed Tolerating a consistent carbohydrate diet Increase her activity as tolerated Plan is for subacute rehab at discharge, possibly [facility] I have personally seen and examined the patient, performed the documentation and the assessment and plan as written. Number of minutes spent on the visit: 10.
[2023-07-03] MEDS: FLUCONAZOLE IN NACL,ISO-OSM 100 MG in SALINE 1 50ML.BAG IVPB SCH (15:12)
[2023-07-03 16:38] LABS: Glucose,Whole Blood 164 mg/dL (70-110)
[2023-07-03 20:54] LABS: Glucose,Whole Blood 137 mg/dL (70-110)
[2023-07-04 00:29] LABS: Glucose,Whole Blood 135 mg/dL (70-110)
[2023-07-04] MEDS: INSULIN ASPART (NovoLOG) 100 UNIT/ML VIAL SQ SCH ×6 (00:41→21:53)
[2023-07-04] MEDS: HYDROmorphone 1 MG/ML 1 ML SYRINGE IVP PRN ×3 (00:44→07:43)
[2023-07-04] MEDS: KETOROLAC 15 MG/ML 1 ML VIAL IVP SCH ×2 (00:45→06:14)
[2023-07-04] MEDS: SODIUM CHLORIDE 0.9% 1,000 ML IV SCH ×2 (00:46→17:42)
[2023-07-04] MEDS ORDERED: DEXTROSE 50% SYRINGE 50 ML IVP PRN ×2 (06:17)
[2023-07-04 06:22] LABS: Glucose,Whole Blood 101 mg/dL (70-110)
--- NOTE | 2023-07-04 06:24 | P.PN ---
Subjective Progress Note Date: 07/03/23 his is a pleasant 53 years old femalepresents with diverticulitis and bilateral ovarian cyst. She status post low anterior resection with bilateral ovarian cystectomy and partial omentectomy. sHe tolerates diet well, abdominal pain is minimal. She had little watery bowel movement yesterday. Eliquis was started hemodynamically stable and labs were reviewed 06/23/2023 Patient is seen and examined by me at bedside. Patient had increasing abdominal pain and distention. I discussed the case with the staff were discussed with surgery team as well who were following the case closely. Surgical team ordered abdominal x-ray which showed large pneumo peritoneal larger than expected for postop day. Then they ordered a CT of the abdomen and pelvis which showed free air present within the abdomen. With ascites. Patient was taken for emergent exploratory laparotomy and possible bowel resection and after the procedure patient was taken to the ICU. Patient was started on antibiotic with Flagyl and ceftriaxone as well as aggressive hydration with normal saline 100 mL per hour. Blood pressure improved and with systolic was 140-160. Patient was on room air saturating about 95%. She had low-grade temperature in the morning of 99.9. Showing WBCs of 8.4, hemoglobin 12.9. Platelet count 221. Creatinine is 0.6. Glucose controlled. Electrolytes within the normal. 06/24/2023 patient yesterday she had worsening abdominal pain and distention. Surgery team will follow closely. Several images were requested showing free air, And patient eventually was taken to the operation room As per surgery team patient underwent (Reopening of laparotomy, lysis of adhesions. Takedown of colorectal anastomosis with conversion to Ly's procedure i.e. and colostomy with closed distal pouch) and it was feculent material in the peritoneal cavity secondary to anastomotic breakdown. Patient was placed on antibiotics. Currently her antibiotics were changed to Zosyn to cover both gram-negative and in microvolts. Patient currently in the ICU sedated and intubated on mechanical ventilation. Her abdomen is less distended and left lower colostomy back in place. Her blood pressure was on the low side she received 2 doses of normal saline bolus of 1 L each. Also she was placed on small dose of pressors. Patient remains tachycardic and tachypneic and she had a fever of 103 this morning Lactic acid is elevated at 2.7, came back to normal at 1.6 CBC, BMP and liver enzymes were unremarkable. Except for mildly elevated ALT and low elbow made. Chest x-ray from this morning showing atelectasis. Case was discussed with pulmonary/critical care. 06/25/2023 pt is sedated and intubated and pulmonary critical care team help with the vent managment , pt had uneventful night , she was on less levophed dose in the morning than yesterday, her pressor was discontinued later, her bp improved through the day and systolic bp 120-130 she has soft abdomen and colostomy back is empty only from little serosanguinous fluid wbc is 9.4, hb 11.5, platelet is normal her eliquis is still on hold , and dvt px is machical now till cleared by surgery she is on zosyn, fever subsided , no leukocytosis , and pt is started on TPN at 30 ml per hr 06/26/2023 Patient is still intubated and sedated in the ICU with pulmonary team help with mechanical ventilation management Propofol may be discontinued soon to help her mentation. Chest lungs have mild leukocytosis. She still has mild fever 99.8, tachypneic and tachycardic but she is improving slowly and gradually. She is On TPN at 30 ML/H, Normal Saline at 50 ML and Zosyn. Blood Culture Also Growing Sensitive Pseudomonas and E. coli with Nighat 06/27/2023 Patient is seen and evaluated and follow-up maintained on BiPAP with multiple medical consultations following. Patient was successfully extubated yesterday and continues to be extremely lethargic. Patient was maintained on Precedex as well as TPN and currently nothing by mouth. Patient had developed an anastomotic leak and taken back to the OR on June 24 and underwent takedown of colorectal anastomosis with conversion to Ly's procedure and colostomy. Patient is continued on antibiotics in the form of Zosyn as well and culture showing preliminary anaerobic gram-negative bacilli and abdominal wound was showing E. coli with pseudomonas aeruginosa along with Nighat and strep group B. Cultures also showing Nighat and will add Diflucan. Potassium 2.9 and will replace per protocol and also recommend replacing magnesium which is currently 1.8. Blood sugars appear slightly more elevated and will add low-dose long- acting and monitor closely 06/28/2023 Patient is seen in follow-up in the ICU currently on high flow airvo and off BiPAP. Patient continues on TPN Precedex is often patient is a little more awake today. Patient is on Cleviprex and as patient remains nothing by mouth and home blood pressure medications have been on hold. Per nursing staff there is some stool starting in the ostomy. Blood sugars have been elevated and will increase the dose of long-acting and continue sliding scale. Patient is afebrile maintained on antibiotics with fluconazole. Patient is reporting a lot of pain and discomfort in the abdomen. A.m. labs pending at this time. 06/29/2023 Patient is seen in follow-up today currently maintained on airvo and being titrated down currently at 40%. Patient with multiple medical consultations following including ostomy nurse and scheduled for education of the ostomy today. Patient is very tearful when discussing that she has an ostomy. There is some stool and gas noted in the ostomy. Patient to have physical therapy evaluation today. Patient will likely need ECF on discharge for continued strengthening and mobility. Mother at the bedside today who is here from [place] visiting since the surgery and has been provided with resources for ECF in the area and has been visiting them. Patient is asking for food and water although currently nothing by mouth and maintained on TPN. Blood sugars are becoming more elevated and uncontrolled currently maintained on insulin every 6 per TPN and ICU protocol along with long-acting and will increase the long- acting. Pain is not controlled and maintained on morphine and being transitioned to Dilaudid. Patient is off Precedex and Cleviprex drip and continued on antibiotics along with antifungal medications. Patient also being followed by wound care and minimal output noted in the JG drain time of exam. 06/30/2023 Patient evaluated in follow up in the intensive care unit. Patient has been weaned down to 5L nasal cannula with oxygen saturation of 98%. Patient feels hungry and wants to eat food. She is making adequate stool per ostomy. NG tube remains in place with gastric output of 250 ml in the last 24 hours. Midline dressing in place with wound care instructions to change every MWF apply absorptive silver role moistened and pack if needed. Cover with AVD [employer] and paper tape. Wound care following. Patient remains on TPN. Patient also remains on IV zosyn and IV fluconazole. White count has normalized to 8.8. Sodium up to 135. Blood sugar high 200s. 07/01/2023 Patient has been downgraded from the ICU evaluated today on the medical floor. NG tube remains. Patient has active bowel sounds and making stool from the ostomy. She is hungry asking for food. Remains on TPN. Surgery recommending to remove IDC and NG tube today and patient can have sips of liquids. 07/02/2023 Patient is seen and evaluated in follow-up today currently maintained on 3 L via nasal cannula and wean FiO2 as tolerated. Patient continues on TPN for now although diet is being advanced to full liquids per surgery and slowly advance as tolerated. Patient continues to request food and feels hungry. Patient continues with significant weakness and did work with physical therapy today with social work following with plans for going to ECF. Patient is currently afebrile with no white count and other list reviewed and within normal limits. Blood sugars are improving on increased dose of long-acting twice daily and will continue with Accu-Cheks before meals and at bedtime along with sliding scale. Patient denies any chest pain or shortness of breath. Pain management per surgery services this patient continues to request IV Dilaudid and Toradol is continued and being started on oral [place]. Discussed with nursing staff about limiting IV Dilaudid use. 07/03/2023 Patient is seen in follow-up this morning is currently sitting up in the chair with family at the bedside. Patient is tolerating diet and has been advanced to regular. Patient is maintained on Accu-Cheks and we'll transition to before meals and at bedtime and continue sliding scale and adjust the long-acting doses this patient's blood sugars are better controlled. Patient is afebrile with no reports of chest pain or shortness of breath. Patient working with physical therapy with plans on going to ECF. TPN has been discontinued and awaiting to remove central line. Encouraged incentive spirometer use and increased activity as tolerated Review of systems: Constitutional: no reports of fatigue, no fever, or chills Cardiovascular: No reports of chest pain or palpitations Respiratory: reports of shortness of breath GI: No reports of nausea, vomiting, or diarrhea, tolerating diet : No reports of dysuria or retention Neurovascular: reports of generalized weakness All medications have been reviewed Physical exam: GENERAL: The patient is awake, alert and oriented 3, well-developed, appears older than stated age, elderly appearing, ill appearing, currently on 3 L nasal cannula HEENT: Pupils are round and equally reacting to light. EOMI. No scleral icterus. No conjunctival pallor. Normocephalic, atraumatic. No pharyngeal erythema. No thyromegaly. CARDIOVASCULAR: S1 and S2 muffled PULMONARY:Diminished breath sounds bilaterally with some scattered coarse rhonchi ABDOMEN: Soft, periumbilical tenderness ,tenderness, less distended, normoactive bowel sounds. No palpable organomegaly. surgical wound dressing currently intact. Colostomy bag with stool noted MUSCULOSKELETAL: No joint swelling or deformity. EXTREMITIES: No cyanosis, clubbing, or pedal edema. NEUROLOGICAL: Gross neurological examination did not reveal any focal deficits. Diffusely weak SKIN: No rashes. no petechiae. Assessment: Acute abdomen secondary to breakdown of anastomosis status post takedown of colorectal anastomosis with conversion to Ly's procedure and end colostomy septic shock secondary to intra-abdominal infection, improving Hypokalemia, improved Elevated lactic acid secondary to an anastomotic leak with fecal matter, improved Acute hypoxic respiratory failure secondary to above requiring intubation and mechanical ventilation, status post extubation currently maintained on 2-3 L nasal cannula acute diverticulitis status post low anterior resection of the colon (06/18) Ovarian cyst status post bilateral ovarian cystectomy Worsening pneumo-peritoneam requiring exploratory laparotomy and bowel resection history of DVT Diabetes mellitus, uncontrolled with hyperglycemia Hypertension Hyperlipidemia History of CVA GI prophylaxis DVT prophylaxis Full code Plan: Continue Zosyn as cultures are showing Pseudomonas, E. coli, strep group B, Nighat and will continue Diflucan as well Continue with potassium and electrolyte replacement per protocol Patient is to wean FiO2 as tolerated, currently on 3 L via nasal cannula. Encourage incentive spirometer. TPN has been discontinued and patient is tolerating regular diet Blood sugars better controlled and will continue with Accu-Cheks before meals and at bedtime, sliding scale, and adjust the long-acting insulins Surgical management as weto evaluatell as pain management per surgery team. On IV toradol and IV diluadid. Recommend limiting IV Dilaudid use PT/OT therapy following recommending rehab and patient planning on ECF working with case management/social work on discharge planning Ostomy nurse following as well providing education. There is stool and gas noted in the ostomy Thank you kindly for this consultation. We will continue to follow with general surgery during hospitalization. The impression and plan of care has been dictated by Jennifer Thakkar, Nurse Practitioner as directed. Dr. Leydi MD I have performed a history and examination and MDM of this patient, discussed the same with the dictator, and agree with the dictator's assessment and plan as written ,documented as a scribe. Based on total visit time, I have performed more than 50% of the visit. Objective - Vital Signs Vital signs: Vital Signs Temp 98.0 F 07/03/23 01:07 Pulse 65 07/03/23 01:07 Resp 19 07/03/23 01:07 BP 138/81 07/03/23 01:07 Pulse Ox 95 07/03/23 01:07 FiO2 40 06/30/23 07:53 Intake & Output 07/02/23 07/02/23 07/03/23 06:59 18:59 06:59 Intake Total 1026.5 912 Balance 1026.5 912 Weight 80.4 kg Intake: Intake, IV Titration 1026.5 192 Amount Mvi, Adult No.4 with Vit 1026.5 K 10 ml Trace (Conc-1Ml/ Dose) 1 ml Sodium Acetate 20 meq Potassium Chloride 10 meq Magnesium Sulfate gm 0.25 gm In Amino Acid 5%-D15w+Lytes* E* 1,000 ml @ 90 mls/hr IV .BY DURATION NICOLETTE Rx#: [id number] Mvi, Adult No.4 with Vit 192 K 10 ml Trace (Conc-1Ml/ Dose) 1 ml Sodium Acetate 30 meq Potassium Chloride 10 meq Magnesium Sulfate gm 0.25 gm In Amino Acid 5%-D15w+Lytes* E* 1,000 ml @ 90 mls/hr IV .BY DURATION NICOLETTE Rx#: [id number] Oral 720 Other: Voiding Method Indwelling Catheter Bedside Commode Bedside Commode # Voids 1 2 1 ABP, PAP, CO, CI - Last Documented Arterial Blood Pressure 160/70 - Labs CBC & Chem 7: 07/03/23 11:13 07/03/23 11:13 Labs: Abnormal Lab Results - Last 24 Hours (Table) 07/02/23 07/02/23 07/02/23 Range/Units 05:20 06:01 06:01 RBC (3.80-5.40) m/uL Hgb (11.4-16.0) gm/dL Hct (34.0-46.0) % Neutrophils # (1.3-7.7) k/uL Lymphocytes # (1.0-4.8) k/uL Carbon Dioxide 21 L (22-30) mmol/L BUN 25 H (7-17) mg/dL Creatinine 0.43 L (0.52-1.04) mg/dL Glucose 127 H (74-99) mg/dL POC Glucose (mg/dL) 158 H (70-110) mg/dL Alkaline Phosphatase 200 H (38-126) U/L Total Protein 6.0 L (6.3-8.2) g/dL Albumin 2.6 L (3.5-5.0) g/dL Triglycerides 218.00 H (0.00-149.00) mg/dL 07/02/23 07/02/23 07/02/23 Range/Units 06:01 11:13 16:19 RBC 3.14 L (3.80-5.40) m/uL Hgb 9.6 L (11.4-16.0) gm/dL Hct 29.2 L (34.0-46.0) % Neutrophils # 9.1 H (1.3-7.7) k/uL Lymphocytes # 0.8 L (1.0-4.8) k/uL Carbon Dioxide (22-30) mmol/L BUN (7-17) mg/dL Creatinine (0.52-1.04) mg/dL Glucose (74-99) mg/dL POC Glucose (mg/dL) 227 H 204 H (70-110) mg/dL Alkaline Phosphatase (38-126) U/L Total Protein (6.3-8.2) g/dL Albumin (3.5-5.0) g/dL Triglycerides (0.00-149.00) mg/dL
[2023-07-04] MEDS: IPRATROPIUM-ALBUTEROL 3 ML NEB INHALATION SCH ×4 (08:46→20:41)
[2023-07-04] MEDS: lisinopriL 20 MG TAB PO SCH (09:01)
[2023-07-04] MEDS: HEPARIN SODIUM,PORCINE 5,000 UNIT/ML 1 ML VIAL SQ SCH ×2 (09:01→21:53)
[2023-07-04] MEDS: PANTOPRAZOLE 40 MG/10 ML VIAL IVP SCH ×2 (09:01→19:54)
[2023-07-04] MEDS: INSULIN DETEMIR (LEVEMIR) 100 UNIT/ML SYR SQ SCH ×2 (09:01→21:54)
[2023-07-04] MEDS: PIPERACILLIN-TAZOBACTAM 3.375 GM in SODIUM CHLORIDE 0.9% 100 ML IVPB SCH ×3 (09:10→23:47)
[2023-07-04 10:09] LABS: Basophils % (A) 0 %; Eosinophils # (A) 0.1 k/uL (0-0.7); Eosinophils % (A) 1 %; HCT 33.1 % (34.0-46.0); HGB 10.9 gm/dL (11.4-16.0); Hypochromasia Slight; Lymphocytes # (A) 1.1 k/uL (1.0-4.8); Lymphocytes % (A) 11 %; MCH 29.5 pg (25.0-35.0); MCHC 32.8 g/dL (31.0-37.0); Mean Platelet Volume 11.9; Monocytes # (A) 0.9 k/uL (0-1.0); Monocytes % (A) 9 %; Neutrophils # (A) 7.7 k/uL (1.3-7.7); Neutrophils % (A) 77 %; Platelet Count 381 k/uL (150-450); RBC 3.68 m/uL (3.80-5.40); RDW 14.1 % (11.5-15.5)
[2023-07-04 10:13] LABS: MCV 89.9 fL (80.0-100.0)
[2023-07-04] MEDS: HYDROmorphone 0.5 MG/0.5 ML SYRINGE IVP PRN ×5 (10:42→22:38)
[2023-07-04 11:32] LABS: Glucose,Whole Blood 200 mg/dL (70-110)
--- NOTE | 2023-07-04 11:48 | P.PN ---
Subjective Progress Note Date: 07/04/23 CHIEF COMPLAINT: Diverticulitis HISTORY OF PRESENT ILLNES: Patient had diverticulitis with a lower anterior resection on 06/18/23. She then developed an anastomotic leak and required to be taken back to the OR on 06/24/2023. She is status post takedown of colorectal anastomosis with conversion to Ly's procedure and colostomy with close distal pouch for feculent peritonitis secondary to anastomotic leak. Patient's ostomy is functioning. She does complain of abdominal pain. Controlled with pain medication. She is tolerating diet. JG drain 20ml purulent output. Afebrile. WBC is down from 11.8 to 10 HgB 10.9 PHYSICAL EXAM: VITAL SIGNS: Reviewed. GENERAL: no acute distress. ABDOMEN: Soft. mildly Distended. Incision with drainage and Aquacel silver packing in place. Foul odor. Ostomy with stool and air present. NEUROLOGIC: Awake and alert ASSESSMENT: 1. Feculent peritonitis secondary to anastomotic leak status post reopening of laparotomy, lysis of adhesions. Takedown of colorectal anastomosis with conversion to Ly's procedure and colostomy 2. Diverticulitis and bilateral ovarian cysts PLAN: -Continue regular diet -Continue pain management -Continue local wound care -painting trades worker working on ECF placement at time of discharge. -Continue antibiotics -Continue to monitor JG drain output -Patient can shower -DVT prophylaxis subcu heparin Physician Cigarette Roller note has been reviewed by physician. Signing provider agrees with the documented findings, assessment, and plan of care. Objective - Vital Signs Vital signs: Vital Signs Temp 97.9 F 07/04/23 07:00 Pulse 70 07/04/23 08:57 Resp 20 07/04/23 07:00 BP 171/94 07/04/23 07:00 Pulse Ox 95 07/04/23 08:46 FiO2 92 07/03/23 17:39 Intake & Output 07/03/23 07/04/23 07/04/23 18:59 06:59 18:59 Other: # Voids 1 ABP, PAP, CO, CI - Last Documented Arterial Blood Pressure 160/70 - Labs CBC & Chem 7: 07/04/23 08:07 07/03/23 11:13 Labs: Abnormal Lab Results - Last 24 Hours (Table) 07/03/23 07/03/23 07/03/23 Range/Units 11:06 11:13 11:13 WBC 11.8 H (3.8-10.6) k/uL RBC 3.37 L (3.80-5.40) m/uL Hgb 10.0 L (11.4-16.0) gm/dL Hct 32.3 L (34.0-46.0) % MCHC 30.9 L (31.0-37.0) g/dL Neutrophils # 10.2 H (1.3-7.7) k/uL Lymphocytes # 0.8 L (1.0-4.8) k/uL Sodium 136 L (137-145) mmol/L Carbon Dioxide 18 L (22-30) mmol/L BUN 27 H (7-17) mg/dL Creatinine 0.42 L (0.52-1.04) mg/dL Glucose 149 H (74-99) mg/dL POC Glucose (mg/dL) 150 H (70-110) mg/dL Phosphorus 4.9 H (2.5-4.5) mg/dL 07/03/23 07/03/23 07/04/23 Range/Units 16:37 20:52 00:28 WBC (3.8-10.6) k/uL RBC (3.80-5.40) m/uL Hgb (11.4-16.0) gm/dL Hct (34.0-46.0) % MCHC (31.0-37.0) g/dL Neutrophils # (1.3-7.7) k/uL Lymphocytes # (1.0-4.8) k/uL Sodium (137-145) mmol/L Carbon Dioxide (22-30) mmol/L BUN (7-17) mg/dL Creatinine (0.52-1.04) mg/dL Glucose (74-99) mg/dL POC Glucose (mg/dL) 164 H 137 H 135 H (70-110) mg/dL Phosphorus (2.5-4.5) mg/dL
--- NOTE | 2023-07-04 14:39 | P.PN ---
Subjective Progress Note Date: 07/04/23 This is a 53-year-old female patient was undergone a low anterior resection for diverticulitis and the patient is postop day #6. The patient overnight was having abdominal discomfort along with some intermittent chills. No reported fever. She was not passing any flatus and she had no bowel movement for the past 24 hours. The abdomen was protruded and was also tender. The patient had a white cell count of 6.9 with a hemoglobin of 11 and a platelet count of 206. The patient was seen by the on-call surgeon and the patient had a CAT scan of the abdomen and pelvis that showed free air in the abdomen without any extravasation of contrast. There was ascites and subcutaneous seroma involving the anterior pelvis. Based on that, the patient was taken back to the operating room by Bishnu Hurst surgeon and the patient underwent a laparotomy, partial omentectomy and colostomy formation and closure of the rectal stump. The patient was told to have anastomotic leak. Patient arrived today intensive care following her surgery. She is currently on assist control mode at the rate of 14, tidal volume of 400, FiO2 is at 100% with a PEEP of 5. She arrived to the ICU 9 AM this morning. The patient is on no sedatives for now. She is on IV fluids with 75 mL of normal saline. She has a JG drain in the right lower quadrant Doppler being serosanguineous. She has a colostomy in her left lower quadrant. She is hemodynamically stable. No hypotension. Cardiac rhythm is sinus tachycardia with a rate of 122. She is currently on a combination of Rocephin and Flagyl. Labs from today shows a white cell count of 4.5 with a hemoglobin 12.8, BUN is still pending. Creatinine is pending. Serum bicarb is 18 and sodium levels of 135. Glucose at 133. Urine output to be monitored and the patient has approximately 100 mL in her [place] bag. Reevaluated today on 06/25/23, patient remains in the ICU, intubated and mechanically ventilated. She is on assist control rate of 24 tidal volume 400 FiO2 50% and PEEP of 5 ABG showed a pO2 of 107 pCO2 35 pH of 7.39. Patient is on propofol at 60 mcg/kg/m she is also on 0.9 normal saline at 1 50 mL per hour she is now off norepinephrine. Maintained on Zosyn for her peritonitis. Patient does have a baseline of CVA and mental health issues I am a bit reluctant to proceed to weaning and extubating the patient today, she went off norepinephrine earlier today, I plan to continue to monitor the patient and we will address weaning and possibly extubation in the next 24 hours. Chest x-ray showed no evidence of active disease. WBC count is 9.4 hemoglobin 11.5 basic metabolic profile is normal renal profile is normal blood sugar is 193 Patient was reevaluated today on 06/26/23, remains in the ICU intubated and mechanically ventilated. Patient is sedated, she is requiring propofol at 50 mg/kg/m. And she is frequently receiving Dilaudid for pain. She is on assist control rate of 24 tidal volume 400 FiO2 50% PEEP of 5 ABG showed a pO2 of 140 pCO2 34 pH of 7.46, hence her FiO2 was cut down to 40% and her rate was cut down to 20. Patient seems to be quite edematous hence a dose of Lasix was given today 40 mg IV push 1 and her IV fluid was cut down to 75 mL per hour patient remains on TPN. Her urine output is about 40 mL per hour. Patient remains empirically on Zosyn for her acute abdomen presentation. Labs today showed W set of 7.8 hemoglobin 9.6 platelets of 229 basic metabolic profile is normal renal profile is normal, chest x-ray showed right lower lobe atelectasis. Doubt pneumonia. Patient was reevaluated today on 06/27/23, patient was extubated yesterday, tolerated the extubation well however overnight the patient had extra work of breathing, she developed what seems to be almost stridor, unable to take a deep breath and unable to clear secretions, patient was given diuretics, bronchodilators, racemic epinephrine, but she responded well after she was placed on BiPAP. She is now on BiPAP, 10/5/50%, she is also on Precedex at 0.5 mcg/kg per hour. She is on TPN at 83 mL per hour patient is also receiving Zosyn. Continues to have functional colostomy with serosanguineous fluid noted in the colostomy bag and she has minimal drainage in the JG drain. Overall the patient is marginal, she is definitely critically ill, hopefully will not require reintubation. Will recommend follow-up ABG and follow-up chest x-ray this morning on this patient. In the meantime I'm recommending we'll continue BiPAP, and if her volumes become low to increase IPAP from 10-14. WC count today is 7.9 hemoglobin is 10, basic metabolic profile is normal except for potassium of 2.9 being addressed accordingly Reevaluated today on 06/28/23, patient remains in the ICU, patient was on BiPAP through the night, earlier this morning the patient was transitioned to nasal cannula. She is on 6 L high flow nasal cannula, O2 saturation is in the mid 90s. Patient was on Precedex yesterday, however she became bradycardic and hypotensive patient required clevidipine, and we have discontinued her Precedex at night. She is now on clevidipine for milligrams per hour patient is more awake today compared to the last 2 days, she is following instructions, appropriate but she had difficulty coughing and cannot clear much of her secret ions she seems to gag rather than cough. Patient is also on TPN at 83 mL per hour remains on Zosyn. Today I am recommending aggressive incentive spirometry and the general surgery staff to evaluate her colostomy, patient has open sutures around the site. Although her colostomy seems to be functional. Patient denies any pain denies any shortness of breath CBC is relatively normal hemoglobin is 9.4 WBC count is 9.3 basic metabolic profile is normal and renal profile is normal, chest x-ray showed minimal right basilar atelectasis, right diaphragm elevation, otherwise unremarkable Reevaluated today on 06/29/23, patient remains in the ICU, still requiring clevidipine at 1 mg/h. She was placed on aerosol last night with 50% FiO2 and 55 L flow. Patient seems to be doing well she seems to be generally weak, have abdominal pain seems to be fairly well controlled with Dilaudid and Toradol. Patient continues to have good urine output, she is intermittently laced on BiPAP 14/6/50%. Patient has good output from her ostomy. And the plan today is to transfer the patient out of the bed to a bedside chair. And hopefully ambulate. Remains on clevidipine, she is also on TPN, fluconazole and Zosyn. WBC count is 11.1 hemoglobin 11.3 basic metabolic profile is normal and renal profile is normal Was reevaluated today on 06/30/23, patient remains in the ICU, she is on 5 L nasal cannula, doing well, seems to be very comfortable, and not in any distress. Remains on TPN at 90 mL per hour she is also on Zosyn and fluconazole. Patient is afebrile, hemodynamically stable, remains on blood pressure medications for her elevated blood pressure. WBC count is 8.8 hemoglobin is 9.6 basic metabolic profile is normal renal profile is normal, chest x-ray showed no evidence of active disease. The patient is seen today 07/01/2023 in follow-up on the regular medical floor. She is sitting up in a chair at the bedside. Awake and alert in no acute distress. Doing quite a bit better. She is maintaining O2 saturations in the 90s on 3 L/m per nasal cannula. Abdominal wound was positive for E. coli, pseudomonas aeruginosa, Nighat, strep agalactiae, group B. Peritoneal fluid is positive for anaerobic gram-negative bacilli 2. White count 10.8. Hemoglobin 9.8. Sodium 136. Potassium 4.4. Bicarb 21. BUN 22. Creatinine 0.43. Glucose 288. AST 23. ALT 177. Nasogastric tube remains in place. She is continued on TPN and lipids for nutritional support. Remains on flucanazole. H eparin for DVT prophylaxis. The patient is seen today 07/02/2023 in follow-up on the regular medical floor. She is awake and alert in no acute distress. Sitting up in a chair. Denies any worsening shortness of breath, cough or congestion. Maintaining O2 saturations in the mid 90s on 3 L/m per nasal cannula. She is afebrile. Hemodynamically stable. Sodium 137. Potassium 4.3. Bicarb 21. BUN 25. Creatinine 0.43. Glucose 127. She remains on TPN and lipids for nutritional support. Tolerating sips of clear liquids. She is continued on DuoNeb inhalations. Heparin for DVT prophylaxis. Fluconazole. The patient is seen today 07/03/2023 in follow-up on the regular medical floor. She is resting comfortably in bed. Awake and alert in no acute distress. Maintaining O2 saturations in the 90s on 3 L/m per nasal cannula. She denies any worsening shortness breath, cough or congestion. Denies any significant abdominal discomfort. She is tolerating a low fiber consistent carbohydrate diet. He count 11.8. Hemoglobin 10.0. Platelets 396. Sodium 136. Potassium 4.6. Bicarb 18. BUN 27. Creatinine 0.42. Glucose 149. She is continued on bronchodilators. Heparin for DVT prophylaxis. The patient is seen today 07/04/2023 in follow-up on the regular medical floor. She is awake and alert in no acute distress. Maintaining O2 saturations in the 90s on room air. She's been up to the shower. White count 10.0. Hemoglobin 10.9. Platelets 381. Glucose 200. He remains on DuoNeb inhalations, fluconazole, heparin for DVT prophylaxis and Zosyn. Normal saline at [facility]. Objective - Vital Signs Vital signs: Vital Signs Temp 97.9 F 07/04/23 07:00 Pulse 74 07/04/23 12:29 Resp 20 07/04/23 07:00 BP 171/94 07/04/23 07:00 Pulse Ox 95 07/04/23 08:46 FiO2 92 07/03/23 17:39 Intake & Output 07/03/23 07/04/23 07/04/23 18:59 06:59 18:59 Other: Voiding Method Toilet # Voids 1 ABP, PAP, CO, CI - Last Documented Arterial Blood Pressure 160/70 - Exam GENERAL EXAM: Alert, 53-year-old female, on room air, resting in bed, comfortable in no apparent distress. HEAD: Normocephalic. EYES: Normal reaction of pupils, equal size. NOSE: Clear with pink turbinates. THROAT: No erythema or exudates. NECK: No masses, no JVD. CHEST: No chest wall deformity. LUNGS: Equal air entry with no crackles, wheeze, rhonchi or dullness. CVS: S1 and S2 normal with no audible murmur, regular rhythm. ABDOMEN: Dressing dry and intact, ostomy functional. JG drain in place. SPINE: No scoliosis or deformity SKIN: No rashes CENTRAL NERVOUS SYSTEM: No focal deficits, tone is normal in all 4 extremities. EXTREMITIES: There is no peripheral edema. No clubbing, no cyanosis. Peripheral pulses are intact. - Labs CBC & Chem 7: 07/04/23 08:07 07/03/23 11:13 Labs: Abnormal Lab Results - Last 24 Hours (Table) 07/03/23 07/03/23 07/04/23 Range/Units 16:37 20:52 00:28 RBC (3.80-5.40) m/uL Hgb (11.4-16.0) gm/dL Hct (34.0-46.0) % POC Glucose (mg/dL) 164 H 137 H 135 H (70-110) mg/dL 07/04/23 07/04/23 Range/Units 08:07 11:31 RBC 3.68 L (3.80-5.40) m/uL Hgb 10.9 L (11.4-16.0) gm/dL Hct 33.1 L (34.0-46.0) % POC Glucose (mg/dL) 200 H (70-110) mg/dL Assessment and Plan Assessment: Acute abdomen/anastomotic leak following a low anterior resection. The patient was taken to the operating room and the patient underwent an extensive laparotomy, partial omentectomy, colostomy formation of this; and closure of the rectal stump. The patient is postop day #10 Low anterior resection for diverticulitis and the patient is postop day number #16 Acute hypoxic respiratory failure, extubated 2 days ago, required BiPAP, and requiring Airvo. Improving and currently on 3 L nasal cannula Sinus tachycardia, resolved Bradycardia secondary to Precedex which has been discontinued Diabetes mellitus 2 Hypertension Hyperlipidemia History of CVA with expressive aphasia Previous history of DVT maintained on anticoagulation with Eliquis on outpatient basis. Currently off anticoagulants, will resume once cleared by surgery to go back on anticoagulations Poorly controlled blood pressure patient is requiring clevidipine,, will apply and clonidine patch and hopefully discontinue the drip Plan: The patient was seen and evaluated Labs and medications reviewed Tolerating a consistent carbohydrate diet Ostomy functioning Improved on room air Increase her activity as tolerated Plan is for subacute rehab at discharge I have personally seen and examined the patient, performed the documentation and the assessment and plan as written. Number of minutes spent on the visit: 10.
[2023-07-04] MEDS: FLUCONAZOLE IN NACL,ISO-OSM 100 MG in SALINE 1 50ML.BAG IVPB SCH (16:38)
[2023-07-04 16:43] LABS: Glucose,Whole Blood 179 mg/dL (70-110)
[2023-07-04] MEDS: HYDROcodone/APAP 5-325MG 1 EACH TAB PO PRN (18:47)
[2023-07-04 20:59] LABS: Glucose,Whole Blood 227 mg/dL (70-110)
[2023-07-05] MEDS: HYDROmorphone 0.5 MG/0.5 ML SYRINGE IVP PRN ×8 (01:39→23:21)
--- NOTE | 2023-07-05 05:03 | P.PN ---
Subjective Progress Note Date: 07/04/23 his is a pleasant 53 years old femalepresents with diverticulitis and bilateral ovarian cyst. She status post low anterior resection with bilateral ovarian cystectomy and partial omentectomy. sHe tolerates diet well, abdominal pain is minimal. She had little watery bowel movement yesterday. Eliquis was started hemodynamically stable and labs were reviewed 06/23/2023 Patient is seen and examined by me at bedside. Patient had increasing abdominal pain and distention. I discussed the case with the staff were discussed with surgery team as well who were following the case closely. Surgical team ordered abdominal x-ray which showed large pneumo peritoneal larger than expected for postop day. Then they ordered a CT of the abdomen and pelvis which showed free air present within the abdomen. With ascites. Patient was taken for emergent exploratory laparotomy and possible bowel resection and after the procedure patient was taken to the ICU. Patient was started on antibiotic with Flagyl and ceftriaxone as well as aggressive hydration with normal saline 100 mL per hour. Blood pressure improved and with systolic was 140-160. Patient was on room air saturating about 95%. She had low-grade temperature in the morning of 99.9. Showing WBCs of 8.4, hemoglobin 12.9. Platelet count 221. Creatinine is 0.6. Glucose controlled. Electrolytes within the normal. 06/24/2023 patient yesterday she had worsening abdominal pain and distention. Surgery team will follow closely. Several images were requested showing free air, And patient eventually was taken to the operation room As per surgery team patient underwent (Reopening of laparotomy, lysis of adhesions. Takedown of colorectal anastomosis with conversion to Ly's procedure i.e. and colostomy with closed distal pouch) and it was feculent material in the peritoneal cavity secondary to anastomotic breakdown. Patient was placed on antibiotics. Currently her antibiotics were changed to Zosyn to cover both gram-negative and in microvolts. Patient currently in the ICU sedated and intubated on mechanical ventilation. Her abdomen is less distended and left lower colostomy back in place. Her blood pressure was on the low side she received 2 doses of normal saline bolus of 1 L each. Also she was placed on small dose of pressors. Patient remains tachycardic and tachypneic and she had a fever of 103 this morning Lactic acid is elevated at 2.7, came back to normal at 1.6 CBC, BMP and liver enzymes were unremarkable. Except for mildly elevated ALT and low elbow made. Chest x-ray from this morning showing atelectasis. Case was discussed with pulmonary/critical care. 06/25/2023 pt is sedated and intubated and pulmonary critical care team help with the vent managment , pt had uneventful night , she was on less levophed dose in the morning than yesterday, her pressor was discontinued later, her bp improved through the day and systolic bp 120-130 she has soft abdomen and colostomy back is empty only from little serosanguinous fluid wbc is 9.4, hb 11.5, platelet is normal her eliquis is still on hold , and dvt px is machical now till cleared by surgery she is on zosyn, fever subsided , no leukocytosis , and pt is started on TPN at 30 ml per hr 06/26/2023 Patient is still intubated and sedated in the ICU with pulmonary team help with mechanical ventilation management Propofol may be discontinued soon to help her mentation. Chest lungs have mild leukocytosis. She still has mild fever 99.8, tachypneic and tachycardic but she is improving slowly and gradually. She is On TPN at 30 ML/H, Normal Saline at 50 ML and Zosyn. Blood Culture Also Growing Sensitive Pseudomonas and E. coli with Nighat 06/27/2023 Patient is seen and evaluated and follow-up maintained on BiPAP with multiple medical consultations following. Patient was successfully extubated yesterday and continues to be extremely lethargic. Patient was maintained on Precedex as well as TPN and currently nothing by mouth. Patient had developed an anastomotic leak and taken back to the OR on June 24 and underwent takedown of colorectal anastomosis with conversion to Ly's procedure and colostomy. Patient is continued on antibiotics in the form of Zosyn as well and culture showing preliminary anaerobic gram-negative bacilli and abdominal wound was showing E. coli with pseudomonas aeruginosa along with Nighat and strep group B. Cultures also showing Nighat and will add Diflucan. Potassium 2.9 and will replace per protocol and also recommend replacing magnesium which is currently 1.8. Blood sugars appear slightly more elevated and will add low-dose long- acting and monitor closely 06/28/2023 Patient is seen in follow-up in the ICU currently on high flow airvo and off BiPAP. Patient continues on TPN Precedex is often patient is a little more awake today. Patient is on Cleviprex and as patient remains nothing by mouth and home blood pressure medications have been on hold. Per nursing staff there is some stool starting in the ostomy. Blood sugars have been elevated and will increase the dose of long-acting and continue sliding scale. Patient is afebrile maintained on antibiotics with fluconazole. Patient is reporting a lot of pain and discomfort in the abdomen. A.m. labs pending at this time. 06/29/2023 Patient is seen in follow-up today currently maintained on airvo and being titrated down currently at 40%. Patient with multiple medical consultations following including ostomy nurse and scheduled for education of the ostomy today. Patient is very tearful when discussing that she has an ostomy. There is some stool and gas noted in the ostomy. Patient to have physical therapy evaluation today. Patient will likely need ECF on discharge for continued strengthening and mobility. Mother at the bedside today who is here from [place] visiting since the surgery and has been provided with resources for ECF in the area and has been visiting them. Patient is asking for food and water although currently nothing by mouth and maintained on TPN. Blood sugars are becoming more elevated and uncontrolled currently maintained on insulin every 6 per TPN and ICU protocol along with long-acting and will increase the long- acting. Pain is not controlled and maintained on morphine and being transitioned to Dilaudid. Patient is off Precedex and Cleviprex drip and continued on antibiotics along with antifungal medications. Patient also being followed by wound care and minimal output noted in the JG drain time of exam. 06/30/2023 Patient evaluated in follow up in the intensive care unit. Patient has been weaned down to 5L nasal cannula with oxygen saturation of 98%. Patient feels hungry and wants to eat food. She is making adequate stool per ostomy. NG tube remains in place with gastric output of 250 ml in the last 24 hours. Midline dressing in place with wound care instructions to change every MWF apply absorptive silver role moistened and pack if needed. Cover with AVD [employer] and paper tape. Wound care following. Patient remains on TPN. Patient also remains on IV zosyn and IV fluconazole. White count has normalized to 8.8. Sodium up to 135. Blood sugar high 200s. 07/01/2023 Patient has been downgraded from the ICU evaluated today on the medical floor. NG tube remains. Patient has active bowel sounds and making stool from the ostomy. She is hungry asking for food. Remains on TPN. Surgery recommending to remove IDC and NG tube today and patient can have sips of liquids. 07/02/2023 Patient is seen and evaluated in follow-up today currently maintained on 3 L via nasal cannula and wean FiO2 as tolerated. Patient continues on TPN for now although diet is being advanced to full liquids per surgery and slowly advance as tolerated. Patient continues to request food and feels hungry. Patient continues with significant weakness and did work with physical therapy today with social work following with plans for going to ECF. Patient is currently afebrile with no white count and other list reviewed and within normal limits. Blood sugars are improving on increased dose of long-acting twice daily and will continue with Accu-Cheks before meals and at bedtime along with sliding scale. Patient denies any chest pain or shortness of breath. Pain management per surgery services this patient continues to request IV Dilaudid and Toradol is continued and being started on oral [place]. Discussed with nursing staff about limiting IV Dilaudid use. 07/03/2023 Patient is seen in follow-up this morning is currently sitting up in the chair with family at the bedside. Patient is tolerating diet and has been advanced to regular. Patient is maintained on Accu-Cheks and we'll transition to before meals and at bedtime and continue sliding scale and adjust the long-acting doses this patient's blood sugars are better controlled. Patient is afebrile with no reports of chest pain or shortness of breath. Patient working with physical therapy with plans on going to ECF. TPN has been discontinued and awaiting to remove central line. Encouraged incentive spirometer use and increased activity as tolerated 07/04/2023 Patient is seen in follow-up today currently sitting up at the side of the bed has been working with physical therapy remains relatively week with plans on going to ECF. Patient is tolerating regular diet and off TPN. Blood sugars being monitored and will continue sliding scale and have reduced the dose of long-acting and will continue twice daily. Patient continues to request IV pain medications and surgeon has discussed and is decreasing the dose and encouraging oral medications. Plan is for going to ECF once stabilized and cleared by surgery. Patient to continue receiving ostomy education. Patient is afebrile with no reported chest pain or shortness of breath. Patient tolerating diet with no reported nausea or vomiting noted. Review of systems: Constitutional: no reports of fatigue, no fever, or chills Cardiovascular: No reports of chest pain or palpitations Respiratory: reports of shortness of breath GI: No reports of nausea, vomiting, or diarrhea, tolerating diet : No reports of dysuria or retention Neurovascular: reports of generalized weakness All medications have been reviewed Physical exam: GENERAL: The patient is awake, alert and oriented 3, well-developed, appears older than stated age, elderly appearing, ill appearing, currently on room air HEENT: Pupils are round and equally reacting to light. EOMI. No scleral icterus. No conjunctival pallor. Normocephalic, atraumatic. No pharyngeal erythema. No thyromegaly. CARDIOVASCULAR: S1 and S2 muffled PULMONARY:Diminished breath sounds bilaterally with some scattered coarse rhonchi ABDOMEN: Soft, periumbilical tenderness, less distended, normoactive bowel sounds. No palpable organomegaly. surgical wound dressing currently intact. Col ostomy bag with stool noted MUSCULOSKELETAL: No joint swelling or deformity. EXTREMITIES: No cyanosis, clubbing, or pedal edema. NEUROLOGICAL: Gross neurological examination did not reveal any focal deficits. Diffusely weak SKIN: No rashes. no petechiae. Assessment: Acute abdomen secondary to breakdown of anastomosis status post takedown of colorectal anastomosis with conversion to Ly's procedure and end colostomy septic shock secondary to intra-abdominal infection, improved Elevated lactic acid secondary to an anastomotic leak with fecal matter, improved Acute hypoxic respiratory failure secondary to above requiring intubation and mechanical ventilation, status post extubation currently maintained on 2-3 L nasal cannula acute diverticulitis status post low anterior resection of the colon (06/18) Ovarian cyst status post bilateral ovarian cystectomy Worsening pneumo-peritoneam requiring exploratory laparotomy and bowel resection history of DVT Diabetes mellitus, uncontrolled with hyperglycemia Hypertension Hyperlipidemia History of CVA GI prophylaxis DVT prophylaxis Full code Plan: Continue Zosyn as cultures are showing Pseudomonas, E. coli, strep group B, Nighat and will continue Diflucan as well Continue with potassium and electrolyte replacement per protocol Patient is to wean FiO2 as tolerated, currently on room air during exam.. Enc ourage incentive spirometer. TPN has been discontinued and patient is tolerating regular diet Blood sugars better controlled and will continue with Accu-Cheks before meals and at bedtime, sliding scale, and adjust the long-acting insulins Patient has been requesting pain medications around the clock. Recommend limiting IV Dilaudid use. Surgery has decreased the dose PT/OT therapy following recommending rehab and patient planning on ECF working with case management/social work on discharge planning Ostomy nurse following as well providing education. There is stool and gas noted in the ostomy Thank you kindly for this consultation. We will continue to follow with general surgery during hospitalization. The impression and plan of care has been dictated by Jennifer Thakkar, Nurse Practitioner as directed. Dr. Leydi MD I have performed a history and examination and MDM of this patient, discussed the same with the dictator, and agree with the dictator's assessment and plan as written ,documented as a scribe. Based on total visit time, I have performed more than 50% of the visit. Objective - Vital Signs Vital signs: Vital Signs Temp 98.3 F 07/05/23 02:00 Pulse 70 07/05/23 02:00 Resp 16 07/05/23 02:00 BP 136/76 07/05/23 02:00 Pulse Ox 96 07/05/23 02:00 FiO2 92 07/03/23 17:39 Intake & Output 07/04/23 07/04/23 07/05/23 06:59 18:59 06:59 Output Total 75 Balance -75 Weight 80.4 kg Output: Stool 75 Other: Voiding Method Toilet # Voids 4 ABP, PAP, CO, CI - Last Documented Arterial Blood Pressure 160/70 - Labs CBC & Chem 7: 07/04/23 08:07 07/03/23 11:13 Labs: Abnormal Lab Results - Last 24 Hours (Table) 07/04/23 07/04/23 07/04/23 Range/Units 08:07 11:31 16:41 RBC 3.68 L (3.80-5.40) m/uL Hgb 10.9 L (11.4-16.0) gm/dL Hct 33.1 L (34.0-46.0) % POC Glucose (mg/dL) 200 H 179 H (70-110) mg/dL 11/08/23 Range/Units 20:58 RBC (3.80-5.40) m/uL Hgb (11.4-16.0) gm/dL Hct (34.0-46.0) % POC Glucose (mg/dL) 227 H (70-110) mg/dL
[2023-07-05 05:31] LABS: Glucose,Whole Blood 115 mg/dL (70-110)
[2023-07-05] MEDS: INSULIN ASPART (NovoLOG) 100 UNIT/ML VIAL SQ SCH ×4 (05:42→22:29)
[2023-07-05] MEDS: lisinopriL 20 MG TAB PO SCH (08:00)
[2023-07-05] MEDS: cloNIDine 0.3 MG/24HR PATCH TRANSDERM SCH (08:01)
[2023-07-05] MEDS: HEPARIN SODIUM,PORCINE 5,000 UNIT/ML 1 ML VIAL SQ SCH ×2 (08:01→22:28)
[2023-07-05] MEDS: INSULIN DETEMIR (LEVEMIR) 100 UNIT/ML SYR SQ SCH ×2 (08:01→22:30)
[2023-07-05] MEDS: IPRATROPIUM-ALBUTEROL 3 ML NEB INHALATION SCH ×4 (08:01→20:39)
[2023-07-05] MEDS: PANTOPRAZOLE 40 MG/10 ML VIAL IVP SCH ×2 (08:02→22:27)
[2023-07-05] MEDS: PIPERACILLIN-TAZOBACTAM 3.375 GM in SODIUM CHLORIDE 0.9% 100 ML IVPB SCH ×3 (08:02→23:22)
[2023-07-05] MEDS: HYDROcodone/APAP 5-325MG 1 EACH TAB PO PRN (09:03)
[2023-07-05 11:23] LABS: Glucose,Whole Blood 144 mg/dL (70-110)
[2023-07-05 11:43] LABS: Basophils % (A) 0 %; Eosinophils # (A) 0.1 k/uL (0-0.7); Eosinophils % (A) 1 %; HCT 30.4 % (34.0-46.0); HGB 9.8 gm/dL (11.4-16.0); Hypochromasia Slight; Lymphocytes # (A) 1.2 k/uL (1.0-4.8); Lymphocytes % (A) 15 %; MCH 29.9 pg (25.0-35.0); MCHC 32.3 g/dL (31.0-37.0); MCV 92.4 fL (80.0-100.0); Mean Platelet Volume 8.8; Monocytes # (A) 0.5 k/uL (0-1.0); Monocytes % (A) 6 %; Neutrophils # (A) 5.9 k/uL (1.3-7.7); Neutrophils % (A) 75 %; Platelet Count 456 k/uL (150-450); RBC 3.29 m/uL (3.80-5.40); RDW 14.2 % (11.5-15.5); WBC 7.9 k/uL (3.8-10.6)
[2023-07-05 12:02] LABS: African American GFR (CKD) >90 (>60 ml/min/1.73 sqM); Anion Gap 12 mmol/L; Blood Urea Nitrogen 16 mg/dL (7-17); Calcium 8.6 mg/dL (8.4-10.2); Carbon Dioxide 19 mmol/L (22-30); Chloride 107 mmol/L (98-107); Glucose 142 mg/dL (74-99); Non-African American GFR(CKD) >90 (>60 ml/min/1.73 sqM); Potassium 4.1 mmol/L (3.5-5.1); Sodium 138 mmol/L (137-145)
--- NOTE | 2023-07-05 12:33 | P.PN ---
Subjective Progress Note Date: 07/05/23 Principal diagnosis: Diverticular disease. The patient is seen today 07/01/2023 in follow-up on the regular medical floor. She is sitting up in a chair at the bedside. Awake and alert in no acute distress. Doing quite a bit better. She is maintaining O2 saturations in the 90s on 3 L/m per nasal cannula. Abdominal wound was positive for E. coli, pseudomonas aeruginosa, Nighat, strep agalactiae, group B. Peritoneal fluid is positive for anaerobic gram-negative bacilli 2. White count 10.8. Hemoglobin 9.8. Sodium 136. Potassium 4.4. Bicarb 21. BUN 22. Creatinine 0.43. Glucose 288. AST 23. ALT 177. Nasogastric tube remains in place. She is continued on TPN and lipids for nutritional support. Remains on flucanazole. Heparin for DVT prophylaxis. The patient is seen today 07/02/2023 in follow-up on the regular medical floor. She is awake and alert in no acute distress. Sitting up in a chair. Denies any worsening shortness of breath, cough or congestion. Maintaining O2 saturations in the mid 90s on 3 L/m per nasal cannula. She is afebrile. Hemodynamically stable. Sodium 137. Potassium 4.3. Bicarb 21. BUN 25. Creatinine 0.43. Glucose 127. She remains on TPN and lipids for nutritional support. Tolerating sips of clear liquids. She is continued on DuoNeb inhalations. Heparin for DVT prophylaxis. Fluconazole. The patient is seen today 07/03/2023 in follow-up on the regular medical floor. She is resting comfortably in bed. Awake and alert in no acute distress. Maintaining O2 saturations in the 90s on 3 L/m per nasal cannula. She denies any worsening shortness breath, cough or congestion. Denies any significant abdominal discomfort. She is tolerating a low fiber consistent carbohydrate diet. He count 11.8. Hemoglobin 10.0. Platelets 396. Sodium 136. Potassium 4.6. Bicarb 18. BUN 27. Creatinine 0.42. Glucose 149. She is continued on bronchodilators. Heparin for DVT prophylaxis. The patient is seen today 07/04/2023 in follow-up on the regular medical floor. She is awake and alert in no acute distress. Maintaining O2 saturations in the 90s on room air. She's been up to the shower. White count 10.0. Hemoglobin 10.9. Platelets 381. Glucose 200. He remains on DuoNeb inhalations, fluconazole, heparin for DVT prophylaxis and Zosyn. Normal saline at [facility]. Progress note dated 07/05/2023. The patient is seen today in room 451. He is currently on room air. The patient is receiving saline at 20 mL an hour. She does continue on antibiotics. Clinically, she appears relatively stable. Current laboratory data includes a white count 7.9, hemoglobin 9.8, hematocrit 30.4, and a platelet count of 456,000. Sodium 138, potassium 4.1, chlorides 107, CO2 19, anion gap 12, BUN 16, and creatinine 0.52. Glucose is 142. Calcium is 8.6. Objective - Vital Signs Vital signs: Vital Signs Temp 97.6 F 07/05/23 07:50 Pulse 68 07/05/23 11:36 Resp 24 07/05/23 10:22 BP 158/88 07/05/23 07:50 Pulse Ox 96 07/05/23 08:01 FiO2 92 07/03/23 17:39 Intake & Output 07/04/23 07/05/23 07/05/23 18:59 06:59 18:59 Output Total 75 75 Balance -75 -75 Weight 80.4 kg Output: Stool 75 75 Other: Voiding Method Toilet Toilet # Voids 4 3 ABP, PAP, CO, CI - Last Documented Arterial Blood Pressure 160/70 - Exam No acute distress, oriented 3. Abnormal respiratory distress. The patient's currently on room air. HEENT examination is grossly unremarkable. Mucous membranes are moist. No oral lesions. Neck supple. Full range of motion. No adenopathy thyromegaly or neck vein distention. Cardiovascular examination reveals regular rhythm rate. S1-S2 normal. No S3 or S4. No discernible murmur noted. Heart rate is 68 bpm. Lungs reveal mostly clear breath sounds. Minimal scattered rhonchi. No wheezes. No crackles. Breath sounds are equal bilaterally. Room air saturation is 96%. Abdomen soft, with mild tenderness. No masses. Extremities are intact. No cyanosis clubbing or edema. Skin is without rash or lesion. Neurologic examination is brief but nonfocal. - Labs CBC & Chem 7: 07/05/23 11:10 07/05/23 11:10 Labs: Abnormal Lab Results - Last 24 Hours (Table) 07/04/23 07/04/23 07/05/23 Range/Units 16:41 20:58 05:30 RBC (3.80-5.40) m/uL Hgb (11.4-16.0) gm/dL Hct (34.0-46.0) % Plt Count (150-450) k/uL Carbon Dioxide (22-30) mmol/L Glucose (74-99) mg/dL POC Glucose (mg/dL) 179 H 227 H 115 H (70-110) mg/dL 07/05/23 07/05/23 07/05/23 Range/Units 11:10 11:10 11:22 RBC 3.29 L (3.80-5.40) m/uL Hgb 9.8 L (11.4-16.0) gm/dL Hct 30.4 L (34.0-46.0) % Plt Count 456 H (150-450) k/uL Carbon Dioxide 19 L (22-30) mmol/L Glucose 142 H (74-99) mg/dL POC Glucose (mg/dL) 144 H (70-110) mg/dL Assessment and Plan Assessment: Acute abdomen/anastomotic leak following a low anterior resection. The patient was taken to the operating room and the patient underwent an extensive l aparotomy, partial omentectomy, colostomy formation of this; and closure of the rectal stump. The patient is postop day #11. Low anterior resection for diverticulitis and the patient is postop day number #17. Acute hypoxic respiratory failure, resolved. Sinus tachycardia, resolved. Bradycardia secondary to Precedex, resolved. Diabetes mellitus 2. Hypertension. Hyperlipidemia. History of CVA with expressive aphasia. Previous history of DVT. Plan: Plan dated 07/05/2023. The patient is seen today in room 451. The patient continues on saline at 20 mL an hour. Clinically, her respiratory status is stable, and she is on room air. She continues on fluconazole, and Zosyn. Labs, x-rays, and medications are reviewed. The patient's prognosis remains guarded. We will continue to follow the patient, and make recommendations along the way. Time with Patient: Less than 30
--- NOTE | 2023-07-05 12:51 | P.PN ---
Subjective Progress Note Date: 07/05/23 CHIEF COMPLAINT: Diverticulitis HISTORY OF PRESENT ILLNES: Patient had diverticulitis with a lower anterior resection on 06/18/23. She then developed an anastomotic leak and required to be taken back to the OR on 06/24/2023. She is status post takedown of colorectal anastomosis with conversion to Ly's procedure and colostomy with close distal pouch for feculent peritonitis secondary to anastomotic leak. Patient had increase in abdominal pain during the night. She's had decreased output through her ostomy. She is no longer having formed stool. It is a liquidy worrell color. Appetite is decreased. Denies any nausea or vomiting. JG drain with 20 mL purulent output. Afebrile. WBC is 7.9 Hgb 9.8 platelets 456 sodium is 138 potassium 4.1 creatinine 0.5 ostomy appliance changed yesterday by nursing staff. Patient did have a shower. PHYSICAL EXAM: VITAL SIGNS: Reviewed. GENERAL: no acute distress. ABDOMEN: Soft. mildly Distended. Incision with drainage and Aquacel silver packing in place. Odor is less. Ostomy with worrell liquid. NEUROLOGIC: Awake and alert ASSESSMENT: 1. Feculent peritonitis secondary to anastomotic leak status post reopening of laparotomy, lysis of adhesions. Takedown of colorectal anastomosis with conversion to Ly's procedure and colostomy 2. Diverticulitis and bilateral ovarian cysts PLAN: -Computed tomography scan abdomen and pelvis with oral contrast ordered for further evaluation of abdominal pain -Continue regular diet -Continue pain management. [place] increased to 7.5mg q 4hours prn pain. -Continue local wound care -milking worker working on ECF placement at time of discharge. -Continue antibiotics -Continue to monitor JG drain output -DVT prophylaxis subcu heparin Physician [employer] note has been reviewed by physician. Signing provider agrees with the documented findings, assessment, and plan of care. Objective - Vital Signs Vital signs: Vital Signs Temp 97.6 F 07/05/23 07:50 Pulse 72 07/05/23 08:14 Resp 24 07/05/23 10:22 BP 158/88 07/05/23 07:50 Pulse Ox 96 07/05/23 08:01 FiO2 92 07/03/23 17:39 Intake & Output 07/04/23 07/05/23 07/05/23 18:59 06:59 18:59 Output Total 75 75 Balance -75 -75 Weight 80.4 kg Output: Stool 75 75 Other: Voiding Method Toilet Toilet # Voids 4 3 ABP, PAP, CO, CI - Last Documented Arterial Blood Pressure 160/70 - Labs CBC & Chem 7: 07/05/23 11:10 07/05/23 11:10 Labs: Abnormal Lab Results - Last 24 Hours (Table) 07/04/23 07/04/23 07/04/23 Range/Units 11:31 16:41 20:58 POC Glucose (mg/dL) 200 H 179 H 227 H (70-110) mg/dL 07/05/23 Range/Units 05:30 POC Glucose (mg/dL) 115 H (70-110) mg/dL
[2023-07-05] MEDS: IOPAMIDOL CONTRAST (ORAL USE) VIAL PO PRN ×2 (13:18→14:13)
[2023-07-05] MEDS: HYDROcodone/APAP 7.5-325MG 1 EACH TAB PO PRN ×3 (13:19→22:26)
--- NOTE | 2023-07-05 15:27 | CT ---
EXAMINATION TYPE: CT abdomen pelvis wo/w con DATE OF EXAM: 07/05/2023 COMPARISON: 06/15/2023 INDICATION: Abdominal pain post surgery. Poor historian. DLP: 1743.6 mGycm, Automated exposure control for dose reduction was used. CONTRAST: 100ml mL of Isovue 300. Study performed with Oral Contrast TECHNIQUE: Axial images were obtained from above the diaphragm to the pubic rami in the axial plane a t 5 mm thick sections. Reconstructed images are reviewed on the computer in the coronal plane. FINDINGS: Limited CT sections are obtained the lung bases. Small bilateral pleural effusions are present. Some infiltrate is present at the lung bases. Correlate for atelectasis. Underlying pneumonia could be co nsidered.. CT ABDOMEN: Small amount of free fluid may be within the abdomen. Postsurgical changes are within the anterior abdominal wall. There may be some debris filled collection within the incision of the lower pelvis. Correlate for developing abscess. Small amount of air within this region the ostomy appears normal. Liver: Normal Spleen: Normal Pancreas: Normal Adrenal glands: The adrenal glands are normal. Gallbladder: Normal Kidneys: No masses are evident. No hydronephrosis is present. No cysts are present. No renal stone s are evident. Aorta: Vascular calcification is within the aorta. Inferior vena cava: Filters within the inferior vena cava. CT PELVIS: Drainage catheter is within the pelvis Loops of bowel within the abdomen and pelvis are normal. There are loops of bowel which are incom pletely distended or lack oral contrast limiting their evaluation. Appendix: Normal as visualized. Urinary bladder: Normal. Genitourinary structures: Uterus appears normal. Osseous structures: No suspicious lytic or sclerotic lesions. IMPRESSION: 1. Air and debris is within the lower incision of the lower pelvis. Correlate for developing abscess . 2. Small bilateral pleural effusions with adjacent atelectasis or pneumonia. 3. Drainage catheter within the pelvis. Some free fluid is present
[2023-07-05] MEDS: FLUCONAZOLE IN NACL,ISO-OSM 100 MG in SALINE 1 50ML.BAG IVPB SCH (16:16)
[2023-07-05 16:17] LABS: Glucose,Whole Blood 111 mg/dL (70-110)
--- NOTE | 2023-07-05 20:37 | P.PN ---
Subjective Progress Note Date: 07/05/23 his is a pleasant 53 years old femalepresents with diverticulitis and bilateral ovarian cyst. She status post low anterior resection with bilateral ovarian cystectomy and partial omentectomy. sHe tolerates diet well, abdominal pain is minimal. She had little watery bowel movement yesterday. Eliquis was started hemodynamically stable and labs were reviewed 06/23/2023 Patient is seen and examined by me at bedside. Patient had increasing abdominal pain and distention. I discussed the case with the staff were discussed with surgery team as well who were following the case closely. Surgical team ordered abdominal x-ray which showed large pneumo peritoneal larger than expected for postop day. Then they ordered a CT of the abdomen and pelvis which showed free air present within the abdomen. With ascites. Patient was taken for emergent exploratory laparotomy and possible bowel resection and after the procedure patient was taken to the ICU. Patient was started on antibiotic with Flagyl and ceftriaxone as well as aggressive hydration with normal saline 100 mL per hour. Blood pressure improved and with systolic was 140-160. Patient was on room air saturating about 95%. She had low-grade temperature in the morning of 99.9. Showing WBCs of 8.4, hemoglobin 12.9. Platelet count 221. Creatinine is 0.6. Glucose controlled. Electrolytes within the normal. 06/24/2023 patient yesterday she had worsening abdominal pain and distention. Surgery team will follow closely. Several images were requested showing free air, And patient eventually was taken to the operation room As per surgery team patient underwent (Reopening of laparotomy, lysis of adhesions. Takedown of colorectal anastomosis with conversion to Ly's procedure i.e. and colostomy with closed distal pouch) and it was feculent material in the peritoneal cavity secondary to anastomotic breakdown. Patient was placed on antibiotics. Currently her antibiotics were changed to Zosyn to cover both gram-negative and in microvolts. Patient currently in the ICU sedated and intubated on mechanical ventilation. Her abdomen is less distended and left lower colostomy back in place. Her blood pressure was on the low side she received 2 doses of normal saline bolus of 1 L each. Also she was placed on small dose of pressors. Patient remains tachycardic and tachypneic and she had a fever of 103 this morning Lactic acid is elevated at 2.7, came back to normal at 1.6 CBC, BMP and liver enzymes were unremarkable. Except for mildly elevated ALT and low elbow made. Chest x-ray from this morning showing atelectasis. Case was discussed with pulmonary/critical care. 06/25/2023 pt is sedated and intubated and pulmonary critical care team help with the vent managment , pt had uneventful night , she was on less levophed dose in the morning than yesterday, her pressor was discontinued later, her bp improved through the day and systolic bp 120-130 she has soft abdomen and colostomy back is empty only from little serosanguinous fluid wbc is 9.4, hb 11.5, platelet is normal her eliquis is still on hold , and dvt px is machical now till cleared by surgery she is on zosyn, fever subsided , no leukocytosis , and pt is started on TPN at 30 ml per hr 06/26/2023 Patient is still intubated and sedated in the ICU with pulmonary team help with mechanical ventilation management Propofol may be discontinued soon to help her mentation. Chest lungs have mild leukocytosis. She still has mild fever 99.8, tachypneic and tachycardic but she is improving slowly and gradually. She is On TPN at 30 ML/H, Normal Saline at 50 ML and Zosyn. Blood Culture Also Growing Sensitive Pseudomonas and E. coli with [place] 06/27/2023 Patient is seen and evaluated and follow-up maintained on BiPAP with multiple medical consultations following. Patient was successfully extubated yesterday and continues to be extremely lethargic. Patient was maintained on Precedex as well as TPN and currently nothing by mouth. Patient had developed an anastomotic leak and taken back to the OR on June 24 and underwent takedown of colorectal anastomosis with conversion to Ly's procedure and colostomy. Patient is continued on antibiotics in the form of Zosyn as well and culture showing preliminary anaerobic gram-negative bacilli and abdominal wound was showing E. coli with pseudomonas aeruginosa along with Nighat and strep group B. Cultures also showing Nighat and will add Diflucan. Potassium 2.9 and will replace per protocol and also recommend replacing magnesium which is currently 1.8. Blood sugars appear slightly more elevated and will add low-dose long- acting and monitor closely 06/28/2023 Patient is seen in follow-up in the ICU currently on high flow airvo and off BiPAP. Patient continues on TPN Precedex is often patient is a little more awake today. Patient is on Cleviprex and as patient remains nothing by mouth and home blood pressure medications have been on hold. Per nursing staff there is some stool starting in the ostomy. Blood sugars have been elevated and will increase the dose of long-acting and continue sliding scale. Patient is afebrile maintained on antibiotics with fluconazole. Patient is reporting a lot of pain and discomfort in the abdomen. A.m. labs pending at this time. 06/29/2023 Patient is seen in follow-up today currently maintained on airvo and being titrated down currently at 40%. Patient with multiple medical consultations following including ostomy nurse and scheduled for education of the ostomy today. Patient is very tearful when discussing that she has an ostomy. There is some stool and gas noted in the ostomy. Patient to have physical therapy evaluation today. Patient will likely need ECF on discharge for continued strengthening and mobility. Mother at the bedside today who is here from [place] visiting since the surgery and has been provided with resources for ECF in the area and has been visiting them. Patient is asking for food and water although currently nothing by mouth and maintained on TPN. Blood sugars are becoming more elevated and uncontrolled currently maintained on insulin every 6 per TPN and ICU protocol along with long-acting and will increase the long- acting. Pain is not controlled and maintained on morphine and being transitioned to Dilaudid. Patient is off Precedex and Cleviprex drip and continued on antibiotics along with antifungal medications. Patient also being followed by wound care and minimal output noted in the JG drain time of exam. 06/30/2023 Patient evaluated in follow up in the intensive care unit. Patient has been weaned down to 5L nasal cannula with oxygen saturation of 98%. Patient feels hungry and wants to eat food. She is making adequate stool per ostomy. NG tube remains in place with gastric output of 250 ml in the last 24 hours. Midline dressing in place with wound care instructions to change every MWF apply absorptive silver role moistened and pack if needed. Cover with AVD [employer] and paper tape. Wound care following. Patient remains on TPN. Patient also remains on IV zosyn and IV fluconazole. White count has normalized to 8.8. Sodium up to 135. Blood sugar high 200s. 07/01/2023 Patient has been downgraded from the ICU evaluated today on the medical floor. NG tube remains. Patient has active bowel sounds and making stool from the ostomy. She is hungry asking for food. Remains on TPN. Surgery recommending to remove IDC and NG tube today and patient can have sips of liquids. 07/02/2023 Patient is seen and evaluated in follow-up today currently maintained on 3 L via nasal cannula and wean FiO2 as tolerated. Patient continues on TPN for now although diet is being advanced to full liquids per surgery and slowly advance as tolerated. Patient continues to request food and feels hungry. Patient continues with significant weakness and did work with physical therapy today with social work following with plans for going to ECF. Patient is currently afebrile with no white count and other list reviewed and within normal limits. Blood sugars are improving on increased dose of long-acting twice daily and will continue with Accu-Cheks before meals and at bedtime along with sliding scale. Patient denies any chest pain or shortness of breath. Pain management per surgery services this patient continues to request IV Dilaudid and Toradol is continued and being started on oral [place]. Discussed with nursing staff about limiting IV Dilaudid use. 07/03/2023 Patient is seen in follow-up this morning is currently sitting up in the chair with family at the bedside. Patient is tolerating diet and has been advanced to regular. Patient is maintained on Accu-Cheks and we'll transition to before meals and at bedtime and continue sliding scale and adjust the long-acting doses this patient's blood sugars are better controlled. Patient is afebrile with no reports of chest pain or shortness of breath. Patient working with physical therapy with plans on going to ECF. TPN has been discontinued and awaiting to remove central line. Encouraged incentive spirometer use and increased activity as tolerated 07/04/2023 Patient is seen in follow-up today currently sitting up at the side of the bed has been working with physical therapy remains relatively week with plans on going to ECF. Patient is tolerating regular diet and off TPN. Blood sugars being monitored and will continue sliding scale and have reduced the dose of long-acting and will continue twice daily. Patient continues to request IV pain medications and surgeon has discussed and is decreasing the dose and encouraging oral medications. Plan is for going to ECF once stabilized and cleared by surgery. Patient to continue receiving ostomy education. Patient is afebrile with no reported chest pain or shortness of breath. Patient tolerating diet with no reported nausea or vomiting noted. 07/05/2023 Patient is seen and evaluated in follow-up and had an ostomy site change yester day and noted to have change in stool consistency and color and is a worrell, creamy consistency and very little output noted from last night into today. Yesterday of note was brown stool. Patient continues to report abdominal pain and does appear distended although not overly distended from previous day. Patient does have positive bowel sounds noted and general surgery following as attending has ordered CT abdomen which is pending. Patient is afebrile with no white count denies worsening pain but continues to report pain and requesting IV Dilaudid [id number]. Adjustments being made to oral medications and recommend limiting the use of IV narcotics. Review of systems: Constitutional: no reports of fatigue, no fever, or chills Cardiovascular: No reports of chest pain or palpitations Respiratory: reports of shortness of breath GI: No reports of nausea, vomiting, or diarrhea, tolerating diet, reports less stool in the ostomy : No reports of dysuria or retention Neurovascular: reports of generalized weakness All medications have been reviewed Physical exam: GENERAL: The patient is awake, alert and oriented 3, well-developed, appears older than stated age, elderly appearing, ill appearing, currently on room air HEENT: Pupils are round and equally reacting to light. EOMI. No scleral icterus. No conjunctival pallor. Normocephalic, atraumatic. No pharyngeal erythema. No thyromegaly. CARDIOVASCULAR: S1 and S2 muffled PULMONARY:Diminished breath sounds bilaterally with some scattered coarse rhonchi ABDOMEN: Soft, periumbilical tenderness, less distended, normoactive bowel sounds. No palpable organomegaly. surgical wound dressing currently intact. Colostomy bag with a worrell colored, creamy consistency stool noted MUSCULOSKELETAL: No joint swelling or deformity. EXTREMITIES: No cyanosis, clubbing, or pedal edema. NEUROLOGICAL: Gross neurological examination did not reveal any focal deficits. Diffusely weak SKIN: No rashes. no petechiae. Assessment: Acute abdomen secondary to breakdown of anastomosis status post takedown of colorectal anastomosis with conversion to Ly's procedure and end colostomy septic shock secondary to intra-abdominal infection, improved Elevated lactic acid secondary to an anastomotic leak with fecal matter, improved Acute hypoxic respiratory failure secondary to above requiring intubation and mechanical ventilation, status post extubation currently maintained on 2-3 L nasal cannula acute diverticulitis status post low anterior resection of the colon (06/18) Ovarian cyst status post bilateral ovarian cystectomy Worsening pneumo-peritoneam requiring exploratory laparotomy and bowel resection history of DVT Diabetes mellitus, uncontrolled with hyperglycemia Hypertension Hyperlipidemia History of CVA GI prophylaxis DVT prophylaxis Full code Plan: Continue Zosyn as cultures are showing Pseudomonas, E. coli, strep group B, Nighat and will continue Diflucan as well Continue with potassium and electrolyte replacement per protocol Patient is to wean FiO2 as tolerated, currently on room air during exam.. Encourage incentive spirometer. TPN has been discontinued and patient is tolerating regular diet Blood sugars better controlled and will continue with Accu-Cheks before meals an d at bedtime, sliding scale, and adjust the long-acting insulins Patient has been requesting pain medications around the clock. Recommend limiting IV Dilaudid use. Surgery has decreased the dose and also has increased the dose of [place] and discussed with the patient about weaning off IV Dilaudid. Mother was at bedside PT/OT therapy following recommending rehab and patient planning on ECF working with case management/social work on discharge planning Ostomy nurse following as well providing education. There is a change in stool with no gas noted in the ostomy. Repeat CT abdomen is ordered and pending Thank you kindly for this consultation. We will continue to follow with general surgery during hospitalization. The impression and plan of care has been dictated by Jennifer Thakkar, Nurse Practitioner as directed. Dr. Leydi MD I have performed a history and examination and MDM of this patient, discussed the same with the dictator, and agree with the dictator's assessment and plan as written ,documented as a scribe. Based on total visit time, I have performed more than 50% of the visit. Objective - Vital Signs Vital signs: Vital Signs Temp 97.3 F L 07/05/23 13:04 Pulse 68 07/05/23 15:42 Resp 19 07/05/23 13:04 BP 151/84 07/05/23 13:04 Pulse Ox 95 07/05/23 13:04 FiO2 92 07/03/23 17:39 Intake & Output 07/04/23 07/05/23 07/05/23 18:59 06:59 18:59 Output Total 75 75 Balance -75 -75 Weight 80.4 kg Output: Stool 75 75 Other: Voiding Method Toilet Toilet # Voids 4 3 ABP, PAP, CO, CI - Last Documented Arterial Blood Pressure 160/70 - Labs CBC & Chem 7: 07/05/23 11:10 07/05/23 11:10 Labs: Abnormal Lab Results - Last 24 Hours (Table) 07/04/23 07/04/23 07/05/23 Range/Units 16:41 20:58 05:30 RBC (3.80-5.40) m/uL Hgb (11.4-16.0) gm/dL Hct (34.0-46.0) % Plt Count (150-450) k/uL Carbon Dioxide (22-30) mmol/L Glucose (74-99) mg/dL POC Glucose (mg/dL) 179 H 227 H 115 H (70-110) mg/dL 07/05/23 07/05/23 07/05/23 Range/Units 11:10 11:10 11:22 RBC 3.29 L (3.80-5.40) m/uL Hgb 9.8 L (11.4-16.0) gm/dL Hct 30.4 L (34.0-46.0) % Plt Count 456 H (150-450) k/uL Carbon Dioxide 19 L (22-30) mmol/L Glucose 142 H (74-99) mg/dL POC Glucose (mg/dL) 144 H (70-110) mg/dL
[2023-07-05 21:03] LABS: Glucose,Whole Blood 210 mg/dL (70-110)
[2023-07-06] MEDS: SODIUM CHLORIDE 0.9% 1,000 ML IV SCH (00:22)
[2023-07-06] MEDS: HYDROcodone/APAP 7.5-325MG 1 EACH TAB PO PRN ×6 (02:16→23:55)
[2023-07-06] MEDS: HYDROmorphone 0.5 MG/0.5 ML SYRINGE IVP PRN ×7 (02:21→21:51)
[2023-07-06 06:21] LABS: Glucose,Whole Blood 114 mg/dL (70-110)
[2023-07-06] MEDS: INSULIN ASPART (NovoLOG) 100 UNIT/ML VIAL SQ SCH ×4 (06:25→22:32)
[2023-07-06] MEDS: INSULIN DETEMIR (LEVEMIR) 100 UNIT/ML SYR SQ SCH ×2 (06:43→21:52)
[2023-07-06] MEDS: lisinopriL 10 MG TAB PO SCH (07:27)
[2023-07-06] MEDS: HEPARIN SODIUM,PORCINE 5,000 UNIT/ML 1 ML VIAL SQ SCH ×2 (07:28→21:52)
[2023-07-06] MEDS: PIPERACILLIN-TAZOBACTAM 3.375 GM in SODIUM CHLORIDE 0.9% 100 ML IVPB SCH ×3 (07:28→23:54)
[2023-07-06] MEDS: PANTOPRAZOLE 40 MG/10 ML VIAL IVP SCH ×2 (07:29→21:52)
[2023-07-06 07:57] LABS: African American GFR (CKD) >90 (>60 ml/min/1.73 sqM); Anion Gap 13 mmol/L; Blood Urea Nitrogen 13 mg/dL (7-17); Calcium 8.8 mg/dL (8.4-10.2); Carbon Dioxide 19 mmol/L (22-30); Chloride 105 mmol/L (98-107); Glucose 108 mg/dL (74-99); Non-African American GFR(CKD) >90 (>60 ml/min/1.73 sqM); Potassium 4.2 mmol/L (3.5-5.1); Sodium 137 mmol/L (137-145)
[2023-07-06 08:39] LABS: Basophils # (A) 0.1 k/uL (0-0.2); Basophils % (A) 1 %; Eosinophils # (A) 0.1 k/uL (0-0.7); Eosinophils % (A) 2 %; HCT 32.7 % (34.0-46.0); HGB 10.5 gm/dL (11.4-16.0); Hypochromasia Moderate; Lymphocytes # (A) 1.1 k/uL (1.0-4.8); Lymphocytes % (A) 13 %; MCH 30.2 pg (25.0-35.0); MCHC 32.2 g/dL (31.0-37.0); MCV 93.7 fL (80.0-100.0); Mean Platelet Volume 10.1; Monocytes # (A) 0.6 k/uL (0-1.0); Monocytes % (A) 7 %; Neutrophils # (A) 6.7 k/uL (1.3-7.7); Neutrophils % (A) 76 %; Platelet Count 461 k/uL (150-450); RBC 3.49 m/uL (3.80-5.40); RDW 14.3 % (11.5-15.5); WBC 8.7 k/uL (3.8-10.6)
[2023-07-06] MEDS: IPRATROPIUM-ALBUTEROL 3 ML NEB INHALATION SCH ×4 (09:18→20:26)
--- NOTE | 2023-07-06 10:56 | P.PN ---
Subjective this is a pleasant 53 years old femalepresents with diverticulitis and bilateral ovarian cyst. She status post low anterior resection with bilateral ovarian cystectomy and partial omentectomy. sHe tolerates diet well, abdominal pain is minimal. She had little watery bowel movement yesterday. Eliquis was started hemodynamically stable and labs were reviewed i am resuming the care of the pt on 07/06/2023 Patient initially presents with acute diverticulitis status post low anterior resection of the colon status post leakage from the anastomosis site and she had another surgery which is converted into Ly procedure on 06/23, she was intubated in the ICU and after stabilization she was transferred to the general medical floor, I'm seeing the patient today on the fourth floor, she is sitting up in bed, awake alert, little lethargic, family at bedside. Patient has colostomy back in the left lower quadrant with light brown stool mostly formed. With open wound nearby. Dressing in a Place. Surgical team are following. CAT scan of the abdomen and pelvis done yesterday showing air and debris within lower incision of the lower pelvis suspicious for abscesses. JG drain in place. Patient was able to tolerate diet today per family. She has some pain at surgical sites which is expected. No other complaint. She remains on Zosyn and Diflucan. Hemoglobin 10.5. Plan for possible subacute rehab next week if she keeps improvement Objective - Vital Signs Vital signs: Vital Signs Temp 97.4 F L 07/06/23 07:16 Pulse 68 07/06/23 09:26 Resp 14 07/06/23 09:26 BP 160/92 07/06/23 07:16 Pulse Ox 93 L 07/06/23 09:18 FiO2 92 07/03/23 17:39 Intake & Output 07/05/23 07/06/23 07/06/23 18:59 06:59 18:59 Intake Total 720 Output Total 75 Balance 645 Intake: Oral 720 Output: Stool 75 Other: Voiding Method Toilet Toilet # Voids 2 1 # Bowel Movements 200 ABP, PAP, CO, CI - Last Documented Arterial Blood Pressure 160/70 - Exam -GENERAL: The patient is intubated and sedated HEENT: Pupils are round and equally reacting to light. EOMI. No scleral icterus. No conjunctival pallor. Normocephalic, atraumatic. No pharyngeal erythema. No thyromegaly. CARDIOVASCULAR: S1 and S2 present. No murmurs, rubs, or gallops. PULMONARY: Chest is clear to auscultation, no wheezing , no crackles. -ABDOMEN: Soft, periumbilical tenderness , no guarding or rebound tenderness, distended, normoactive bowel sounds. No palpable organomegaly. surgical wound is healing. Colostomy bag in a Place MUSCULOSKELETAL: No joint swelling or deformity. EXTREMITIES: No cyanosis, clubbing, or pedal edema. NEUROLOGICAL: Gross neurological examination did not reveal any focal deficits. SKIN: No rashes. no petechiae. - Labs CBC & Chem 7: 07/06/23 06:51 07/06/23 06:51 Labs: Abnormal Lab Results - Last 24 Hours (Table) 07/05/23 07/05/23 07/05/23 Range/Units 11:10 11: 11:22 RBC 3.29 L (3.80-5.40) m/uL Hgb 9.8 L (11.4-16.0) gm/dL Hct 30.4 L (34.0-46.0) % Plt Count 456 H (150-450) k/uL Carbon Dioxide 19 L (22-30) mmol/L Glucose 142 H (74-99) mg/dL POC Glucose (mg/dL) 144 H (70-110) mg/dL 07/05/23 07/05/23 07/06/23 Range/Units 16:15 21:01 06:18 RBC (3.80-5.40) m/uL Hgb (11.4-16.0) gm/dL Hct (34.0-46.0) % Plt Count (150-450) k/uL Carbon Dioxide (22-30) mmol/L Glucose (74-99) mg/dL POC Glucose (mg/dL) 111 H 210 H 114 H (70-110) mg/dL 07/06/23 07/06/23 Range/Units 06:51 06:51 RBC 3.49 L (3.80-5.40) m/uL Hgb 10.5 L (11.4-16.0) gm/dL Hct 32.7 L (34.0-46.0) % Plt Count 461 H (150-450) k/uL Carbon Dioxide 19 L (22-30) mmol/L Glucose 108 H (74-99) mg/dL POC Glucose (mg/dL) (70-110) mg/dL Assessment and Plan Assessment: Acute abdomen secondary to breakdown of anastomosis status post takedown of colorectal anastomosis with conversion to Ly's procedure (06/23) septic shock secondary to intra-abdominal infection, improving Elevated lactic acid Acute hypoxic respiratory failure secondary to above requiring intubation and mechanical ventilation acute diverticulitis status post low anterior resection of the colon (06/18) Ovarian cyst status post bilateral ovarian cystectomy Worsening pneumo-peritoneam requiring exploratory laparotomy and bowel resection history of DVT Diabetes mellitus Hypertension Hyperlipidemia History of CVA Plan: Continue Zosyn. Continue with Diflucan Encourage diet Pulmonary team following closely Surgery primary team also followed closely Labs and medication were reviewed.. Continue same treatment. Continue with sy mptomatic treatment. Resume home medication. Monitor labs and vitals. DVT and GI prophylaxis. Further recommendations as per clinical course of the patient DVT prophylaxis: Eliquis (put on hold until cleared by surgery team ) , SCD GI Prophylaxis:Changed to Protonix Prognosis is guarded Thank you for consulting us, we will follow-up with the pt closely
--- NOTE | 2023-07-06 11:39 | P.PN ---
Subjective Progress Note Date: 07/06/23 CHIEF COMPLAINT: Diverticulitis HISTORY OF PRESENT ILLNES: Patient had diverticulitis with a lower anterior resection on 06/18/23. She then developed an anastomotic leak and required to be taken back to the OR on 06/24/2023. She is status post takedown of colorectal anastomosis with conversion to Ly's procedure and colostomy with close distal pouch for feculent peritonitis secondary to anastomotic leak. Patient had computed tomography scan abdomen and pelvis completed yesterday reports air and debris is within the lower incision of the lower pelvis. Correlate for developing abscess. Small bilateral pleural effusion with adjacent atelectasis or pneumonia. Drainage catheter within the pelvis. Some free fluid is present. Patient is sitting up at bedside chair. Her pain is better controlled. She denies any nausea vomiting. Her ostomy output has improved. She now has formed stool. JG drain with a small amount of purulent output. Afebrile WBC 8.7 Hgb 10.5 platelets 461 PHYSICAL EXAM: VITAL SIGNS: Reviewed. GENERAL: no acute distress. ABDOMEN: Soft. mildly Distended. Incision with drainage and Aquacel silver packing in place. Foul odor. Ostomy functioning NEUROLOGIC: Awake and alert ASSESSMENT: 1. Feculent peritonitis secondary to anastomotic leak status post reopening of laparotomy, lysis of adhesions. Takedown of colorectal anastomosis with conversion to Ly's procedure and colostomy 2. Diverticulitis and bilateral ovarian cysts 3. Air and debris within the lower incision noted on computed tomography scan PLAN: -Removed 2 chantell at the distal portion of the incision with purulent drainage noted -Continue local wound care with Aquacel silver packing -Patient can shower daily -Continue pain management -Continue antibiotics -Continue regular diet -color drum worker working on ECF placement at time of discharge. -Continue to monitor JG drain output -Encouraged patient to ambulate and to use incentive spirometer -DVT prophylaxis subcu heparin Physician Glass Beveller note has been reviewed by physician. Signing provider agrees with the documented findings, assessment, and plan of care. Objective - Vital Signs Vital signs: Vital Signs Temp 97.4 F L 07/06/23 07:16 Pulse 68 07/06/23 09:26 Resp 14 07/06/23 09:26 BP 160/92 07/06/23 07:16 Pulse Ox 93 L 07/06/23 09:18 FiO2 92 07/03/23 17:39 Intake & Output 07/05/23 07/06/23 07/06/23 18:59 06:59 18:59 Intake Total 720 Output Total 75 Balance 645 Intake: Oral 720 Output: Stool 75 Other: Voiding Method Toilet Toilet # Voids 2 1 # Bowel Movements 200 ABP, PAP, CO, CI - Last Documented Arterial Blood Pressure 160/70 - Labs CBC & Chem 7: 07/06/23 06:51 07/06/23 06:51 Labs: Abnormal Lab Results - Last 24 Hours (Table) 07/05/23 07/05/23 07/05/23 Range/Units 11:10 11:10 16:15 RBC 3.29 L (3.80-5.40) m/uL Hgb 9.8 L (11.4-16.0) gm/dL Hct 30.4 L (34.0-46.0) % Plt Count 456 H (150-450) k/uL Carbon Dioxide 19 L (22-30) mmol/L Glucose 142 H (74-99) mg/dL POC Glucose (mg/dL) 111 H (70-110) mg/dL 07/05/23 07/06/23 07/06/23 Range/Units 21:01 06:18 06:51 RBC 3.49 L (3.80-5.40) m/uL Hgb 10.5 L (11.4-16.0) gm/dL Hct 32.7 L (34.0-46.0) % Plt Count 461 H (150-450) k/uL Carbon Dioxide (22-30) mmol/L Glucose (74-99) mg/dL POC Glucose (mg/dL) 210 H 114 H (70-110) mg/dL 07/06/23 Range/Units 06:51 RBC (3.80-5.40) m/uL Hgb (11.4-16.0) gm/dL Hct (34.0-46.0) % Plt Count (150-450) k/uL Carbon Dioxide 19 L (22-30) mmol/L Glucose 108 H (74-99) mg/dL POC Glucose (mg/dL) (70-110) mg/dL
[2023-07-06 11:43] LABS: Glucose,Whole Blood 109 mg/dL (70-110)
--- NOTE | 2023-07-06 11:54 | P.PN ---
Subjective Progress Note Date: 07/06/23 This is a 53-year-old female patient was undergone a low anterior resection for diverticulitis and the patient is postop day #6. The patient overnight was having abdominal discomfort along with some intermittent chills. No reported fever. She was not passing any flatus and she had no bowel movement for the past 24 hours. The abdomen was protruded and was also tender. The patient had a white cell count of 6.9 with a hemoglobin of 11 and a platelet count of 206. The patient was seen by the on-call surgeon and the patient had a CAT scan of the abdomen and pelvis that showed free air in the abdomen without any extravasation of contrast. There was ascites and subcutaneous seroma involving the anterior pelvis. Based on that, the patient was taken back to the operating room by Bishnu Hurst surgeon and the patient underwent a laparotomy, partial omentectomy and colostomy formation and closure of the rectal stump. The patient was told to have anastomotic leak. Patient arrived today intensive care following her surgery. She is currently on assist control mode at the rate of 14, tidal volume of 400, FiO2 is at 100% with a PEEP of 5. She arrived to the ICU 9 AM this morning. The patient is on no sedatives for now. She is on IV fluids with 75 mL of normal saline. She has a JG drain in the right lower quadrant Doppler being serosanguineous. She has a colostomy in her left lower quadrant. She is hemodynamically stable. No hypotension. Cardiac rhythm is sinus tachycardia with a rate of 122. She is currently on a combination of Rocephin and Flagyl. Labs from today shows a white cell count of 4.5 with a hemoglobin 12.8, BUN is still pending. Creatinine is pending. Serum bicarb is 18 and sodium levels of 135. Glucose at 133. Urine output to be monitored and the patient has approximately 100 mL in her [place] bag. Reevaluated today on 06/25/23, patient remains in the ICU, intubated and mechanically ventilated. She is on assist control rate of 24 tidal volume 400 FiO2 50% and PEEP of 5 ABG showed a pO2 of 107 pCO2 35 pH of 7.39. Patient is on propofol at 60 mcg/kg/m she is also on 0.9 normal saline at 1 50 mL per hour she is now off norepinephrine. Maintained on Zosyn for her peritonitis. Patient does have a baseline of CVA and mental health issues I am a bit reluctant to proceed to weaning and extubating the patient today, she went off norepinephrine earlier today, I plan to continue to monitor the patient and we will address weaning and possibly extubation in the next 24 hours. Chest x-ray showed no evidence of active disease. WBC count is 9.4 hemoglobin 11.5 basic metabolic profile is normal renal profile is normal blood sugar is 193 Patient was reevaluated today on 06/26/23, remains in the ICU intubated and mechanically ventilated. Patient is sedated, she is requiring propofol at 50 mg/kg/m. And she is frequently receiving Dilaudid for pain. She is on assist control rate of 24 tidal volume 400 FiO2 50% PEEP of 5 ABG showed a pO2 of 140 pCO2 34 pH of 7.46, hence her FiO2 was cut down to 40% and her rate was cut down to 20. Patient seems to be quite edematous hence a dose of Lasix was given today 40 mg IV push 1 and her IV fluid was cut down to 75 mL per hour patient remains on TPN. Her urine output is about 40 mL per hour. Patient remains empirically on Zosyn for her acute abdomen presentation. Labs today showed W set of 7.8 hemoglobin 9.6 platelets of 229 basic metabolic profile is normal renal profile is normal, chest x-ray showed right lower lobe atelectasis. Doubt pneumonia. Patient was reevaluated today on 06/27/23, patient was extubated yesterday, tolerated the extubation well however overnight the patient had extra work of breathing, she developed what seems to be almost stridor, unable to take a deep breath and unable to clear secretions, patient was given diuretics, bronchodilators, racemic epinephrine, but she responded well after she was placed on BiPAP. She is now on BiPAP, 10/5/50%, she is also on Precedex at 0.5 mcg/kg per hour. She is on TPN at 83 mL per hour patient is also receiving Zosyn. Continues to have functional colostomy with serosanguineous fluid noted in the colostomy bag and she has minimal drainage in the JG drain. Overall the patient is marginal, she is definitely critically ill, hopefully will not require reintubation. Will recommend follow-up ABG and follow-up chest x-ray this morning on this patient. In the meantime I'm recommending we'll continue BiPAP, and if her volumes become low to increase IPAP from 10-14. WC count today is 7.9 hemoglobin is 10, basic metabolic profile is normal except for potassium of 2.9 being addressed accordingly Reevaluated today on 06/28/23, patient remains in the ICU, patient was on BiPAP through the night, earlier this morning the patient was transitioned to nasal cannula. She is on 6 L high flow nasal cannula, O2 saturation is in the mid 90s. Patient was on Precedex yesterday, however she became bradycardic and hypotensive patient required clevidipine, and we have discontinued her Precedex at night. She is now on clevidipine for milligrams per hour patient is more awake today compared to the last 2 days, she is following instructions, appropriate but she had difficulty coughing and cannot clear much of her secret ions she seems to gag rather than cough. Patient is also on TPN at 83 mL per hour remains on Zosyn. Today I am recommending aggressive incentive spirometry and the general surgery staff to evaluate her colostomy, patient has open sutures around the site. Although her colostomy seems to be functional. Patient denies any pain denies any shortness of breath CBC is relatively normal hemoglobin is 9.4 WBC count is 9.3 basic metabolic profile is normal and renal profile is normal, chest x-ray showed minimal right basilar atelectasis, right diaphragm elevation, otherwise unremarkable Reevaluated today on 06/29/23, patient remains in the ICU, still requiring clevidipine at 1 mg/h. She was placed on aerosol last night with 50% FiO2 and 55 L flow. Patient seems to be doing well she seems to be generally weak, have abdominal pain seems to be fairly well controlled with Dilaudid and Toradol. Patient continues to have good urine output, she is intermittently laced on BiPAP 14/6/50%. Patient has good output from her ostomy. And the plan today is to transfer the patient out of the bed to a bedside chair. And hopefully ambulate. Remains on clevidipine, she is also on TPN, fluconazole and Zosyn. WBC count is 11.1 hemoglobin 11.3 basic metabolic profile is normal and renal profile is normal Was reevaluated today on 06/30/23, patient remains in the ICU, she is on 5 L nasal cannula, doing well, seems to be very comfortable, and not in any distress. Remains on TPN at 90 mL per hour she is also on Zosyn and fluconazole. Patient is afebrile, hemodynamically stable, remains on blood pressure medications for her elevated blood pressure. WBC count is 8.8 hemoglobin is 9.6 basic metabolic profile is normal renal profile is normal, chest x-ray showed no evidence of active disease. The patient is seen today 07/01/2023 in follow-up on the regular medical floor. She is sitting up in a chair at the bedside. Awake and alert in no acute distress. Doing quite a bit better. She is maintaining O2 saturations in the 90s on 3 L/m per nasal cannula. Abdominal wound was positive for E. coli, pseudomonas aeruginosa, Nighat, strep agalactiae, group B. Peritoneal fluid is positive for anaerobic gram-negative bacilli 2. White count 10.8. Hemoglobin 9.8. Sodium 136. Potassium 4.4. Bicarb 21. BUN 22. Creatinine 0.43. Glucose 288. AST 23. ALT 177. Nasogastric tube remains in place. She is continued on TPN and lipids for nutritional support. Remains on flucanazole. H eparin for DVT prophylaxis. The patient is seen today 07/02/2023 in follow-up on the regular medical floor. She is awake and alert in no acute distress. Sitting up in a chair. Denies any worsening shortness of breath, cough or congestion. Maintaining O2 saturations in the mid 90s on 3 L/m per nasal cannula. She is afebrile. Hemodynamically stable. Sodium 137. Potassium 4.3. Bicarb 21. BUN 25. Creatinine 0.43. Glucose 127. She remains on TPN and lipids for nutritional support. Tolerating sips of clear liquids. She is continued on DuoNeb inhalations. Heparin for DVT prophylaxis. Fluconazole. The patient is seen today 07/03/2023 in follow-up on the regular medical floor. She is resting comfortably in bed. Awake and alert in no acute distress. Maintaining O2 saturations in the 90s on 3 L/m per nasal cannula. She denies any worsening shortness breath, cough or congestion. Denies any significant abdominal discomfort. She is tolerating a low fiber consistent carbohydrate diet. He count 11.8. Hemoglobin 10.0. Platelets 396. Sodium 136. Potassium 4.6. Bicarb 18. BUN 27. Creatinine 0.42. Glucose 149. She is continued on bronchodilators. Heparin for DVT prophylaxis. The patient is seen today 07/04/2023 in follow-up on the regular medical floor. She is awake and alert in no acute distress. Maintaining O2 saturations in the 90s on room air. She's been up to the shower. White count 10.0. Hemoglobin 10.9. Platelets 381. Glucose 200. He remains on DuoNeb inhalations, fluconazole, heparin for DVT prophylaxis and Zosyn. Normal saline at O. Progress note dated 07/05/2023. The patient is seen today in room 451. He is currently on room air. The patient is receiving saline at 20 mL an hour. She does continue on antibiotics. Clinically, she appears relatively stable. Current laboratory data includes a white count 7.9, hemoglobin 9.8, hematocrit 30.4, and a platelet count of 456,000. Sodium 138, potassium 4.1, chlorides 107, CO2 19, anion gap 12, BUN 16, and creatinine 0.52. Glucose is 142. Calcium is 8.6. The patient is seen today 07/06/2023 in follow-up on the regular medical floor. She is currently sitting up in a chair at the bedside. Awake and alert in no acute distress. She is maintaining good O2 saturations in the 90s on room air. She denies any shortness of breath, cough or congestion. No hemoptysis. Computed tomography scan of the abdomen and pelvis from 07/05/2023 revealed air and debris within the lower incisions of the lower pelvis. Correlate for developing abscess. Small bilateral effusions with adjacent atelectasis. Drainage catheter within the pelvis. Some free fluid is present. White count 8 .7. Hemoglobin 10.5. Platelets 461. Sodium 137. Potassium 4.2. Bicarb 19. BUN 13. Creatinine 0.52. Glucose 108. She is continued on Zosyn and fluconazole. Objective - Vital Signs Vital signs: Vital Signs Temp 97.4 F L 07/06/23 07:16 Pulse 68 07/06/23 09:26 Resp 14 07/06/23 09:26 BP 160/92 07/06/23 07:16 Pulse Ox 93 L 07/06/23 09:18 FiO2 92 07/03/23 17:39 Intake & Output 07/05/23 07/06/23 07/06/23 18:59 06:59 18:59 Intake Total 720 Output Total 75 Balance 645 Intake: Oral 720 Output: Stool 75 Other: Voiding Method Toilet Toilet # Voids 2 1 # Bowel Movements 200 ABP, PAP, CO, CI - Last Documented Arterial Blood Pressure 160/70 - Exam GENERAL EXAM: Alert, pleasant 53-year-old female, on room air, up in a chair, fairly comfortable in no apparent distress. HEAD: Normocephalic. EYES: Normal reaction of pupils, equal size. NOSE: Clear with pink turbinates. THROAT: No erythema or exudates. NECK: No masses, no JVD. CHEST: No chest wall deformity. LUNGS: Equal air entry with no crackles, wheeze, rhonchi or dullness. CVS: S1 and S2 normal with no audible murmur, regular rhythm. ABDOMEN: Dressing dry and intact, ostomy functional. JG drain in place. SPINE: No scoliosis or deformity SKIN: No rashes CENTRAL NERVOUS SYSTEM: No focal deficits, tone is normal in all 4 extremities. EXTREMITIES: There is no peripheral edema. No clubbing, no cyanosis. Peripheral pulses are intact. - Labs CBC & Chem 7: 07/06/23 06:51 07/06/23 06:51 Labs: Abnormal Lab Results - Last 24 Hours (Table) 07/05/23 07/05/23 07/05/23 Range/Units 11:10 16:15 21:01 RBC (3.80-5.40) m/uL Hgb (11.4-16.0) gm/dL Hct (34.0-46.0) % Plt Count (150-450) k/uL Carbon Dioxide 19 L (22-30) mmol/L Glucose 142 H (74-99) mg/dL POC Glucose (mg/dL) 111 H 210 H (70-110) mg/dL 07/06/23 07/06/23 07/06/23 Range/Units 06:18 06:51 06:51 RBC 3.49 L (3.80-5.40) m/uL Hgb 10.5 L (11.4-16.0) gm/dL Hct 32.7 L (34.0-46.0) % Plt Count 461 H (150-450) k/uL Carbon Dioxide 19 L (22-30) mmol/L Glucose 108 H (74-99) mg/dL POC Glucose (mg/dL) 114 H (70-110) mg/dL Assessment and Plan Assessment: Acute abdomen/anastomotic leak following a low anterior resection. The patient was taken to the operating room and the patient underwent an extensive laparotomy, partial omentectomy, colostomy formation of this; and closure of the rectal stump. The patient is postop day #11. Computed tomography scan of the abdomen and pelvis from 07/05/2023 revealed air and debris within the lower incisions of the lower pelvis. Correlate for developing abscess. Small bilateral effusions with adjacent atelectasis. Drainage catheter within the pelvis. Some free fluid is present. Low anterior resection for diverticulitis and the patient is postop day number #17 Acute hypoxic respiratory failure, extubated 2 days ago, required BiPAP, and requiring Airvo. Recovered on room air Diabetes mellitus 2 Hypertension Hyperlipidemia History of CVA with expressive aphasia Previous history of DVT maintained on anticoagulation with Eliquis on outpatient basis. Currently off anticoagulants, will resume once cleared by surgery to go back on anticoagulations Poorly controlled blood pressure patient is requiring clevidipine,, will apply and clonidine patch and hopefully discontinue the drip Plan: The patient was seen and evaluated CT scan of the abdomen, labs and medications reviewed Remains on Zosyn and fluconazole Currently stable and on room air Increase her activity as tolerated Plan is for subacute rehab at discharge I have personally seen and examined the patient, performed the documentation and the assessment and plan as written. Number of minutes spent on the visit: 10.
[2023-07-06 16:49] LABS: Glucose,Whole Blood 175 mg/dL (70-110)
[2023-07-06] MEDS: FLUCONAZOLE IN NACL,ISO-OSM 100 MG in SALINE 1 50ML.BAG IVPB SCH (17:01)
[2023-07-06 20:18] LABS: Glucose,Whole Blood 148 mg/dL (70-110)
[2023-07-07] MEDS: HYDROmorphone 0.5 MG/0.5 ML SYRINGE IVP PRN ×8 (00:58→23:34)
[2023-07-07] MEDS: HYDROcodone/APAP 7.5-325MG 1 EACH TAB PO PRN ×3 (05:14→16:34)
[2023-07-07 05:42] LABS: Glucose,Whole Blood 131 mg/dL (70-110)
[2023-07-07] MEDS: INSULIN ASPART (NovoLOG) 100 UNIT/ML VIAL SQ SCH ×4 (05:45→20:34)
[2023-07-07] MEDS: INSULIN DETEMIR (LEVEMIR) 100 UNIT/ML SYR SQ SCH ×2 (06:58→20:34)
[2023-07-07] MEDS: IPRATROPIUM-ALBUTEROL 3 ML NEB INHALATION SCH (08:23)
--- NOTE | 2023-07-07 08:26 | P.PN ---
Subjective this is a pleasant 53 years old femalepresents with diverticulitis and bilateral ovarian cyst. She status post low anterior resection with bilateral ovarian cystectomy and partial omentectomy. sHe tolerates diet well, abdominal pain is minimal. She had little watery bowel movement yesterday. Eliquis was started hemodynamically stable and labs were reviewed 07/06/2023 Patient initially presents with acute diverticulitis status post low anterior resection of the colon status post leakage from the anastomosis site and she had another surgery which is converted into Ly procedure on 06/23, she was intubated in the ICU and after stabilization she was transferred to the general medical floor, I'm seeing the patient today on the fourth floor, she is sitting up in bed, awake alert, little lethargic, family at bedside. Patient has colostomy back in the left lower quadrant with light brown stool mostly formed. With open wound nearby. Dressing in a Place. Surgical team are following. CAT scan of the abdomen and pelvis done yesterday showing air and debris within lower incision of the lower pelvis suspicious for abscesses. JG drain in place. Patient was able to tolerate diet today per family. She has some pain at surgical sites which is expected. No other complaint. She remains on Zosyn and Diflucan. Hemoglobin 10.5. Plan for possible subacute rehab next week if she keeps improvement 07/07/2023 patient tolerates diet well including this morning Her abdominal pain better JG drain has little yellow discharge No other new complaints. She is hemodynamically stable. Remains on Zosyn and Diflucan. Patient was on Eliquis prior to this Hospitalization for her history of DVT. Currently on subcu heparin. We'll discuss with surgery team wants to resume anticoagulation Objective - Vital Signs Vital signs: Vital Signs Temp 98.0 F 07/07/23 07:07 Pulse 64 07/07/23 07:07 Resp 18 07/07/23 07:07 BP 154/98 07/07/23 07:07 Pulse Ox 94 L 07/07/23 07:07 FiO2 92 07/03/23 17:39 Intake & Output 07/06/23 07/07/23 07/07/23 18:59 06:59 18:59 Intake Total 250 100 Output Total 475 Balance -225 100 Intake: Intake, IV Titration 100 Amount Piperacillin-Tazobactam 3 100 .375 gm In Sodium Chloride 0.9% 100 ml @ 25 mls/hr IVPB Q8HR [facility] Rx# :[id number] Oral 250 Output: Urine 400 Stool 75 Other: Voiding Method Toilet Toilet # Voids 3 ABP, PAP, CO, CI - Last Documented Arterial Blood Pressure 160/70 - Exam -GENERAL: The patient is intubated and sedated HEENT: Pupils are round and equally reacting to light. EOMI. No scleral icterus. No conjunctival pallor. Normocephalic, atraumatic. No pharyngeal erythema. No thyromegaly. CARDIOVASCULAR: S1 and S2 present. No murmurs, rubs, or gallops. PULMONARY: Chest is clear to auscultation, no wheezing , no crackles. -ABDOMEN: Soft, periumbilical tenderness , no guarding or rebound tenderness, distended, normoactive bowel sounds. No palpable organomegaly. surgical wound is healing. Colostomy bag in a Place MUSCULOSKELETAL: No joint swelling or deformity. EXTREMITIES: No cyanosis, clubbing, or pedal edema. NEUROLOGICAL: Gross neurological examination did not reveal any focal deficits. SKIN: No rashes. no petechiae. - Labs CBC & Chem 7: 07/06/23 06:51 07/06/23 06:51 Labs: Abnormal Lab Results - Last 24 Hours (Table) 07/06/23 07/06/23 07/06/23 Range/Units 06:51 16:47 20:15 RBC 3.49 L (3.80-5.40) m/uL Hgb 10.5 L (11.4-16.0) gm/dL Hct 32.7 L (34.0-46.0) % Plt Count 461 H (150-450) k/uL POC Glucose (mg/dL) 175 H 148 H (70-110) mg/dL 07/07/23 Range/Units 05:40 RBC (3.80-5.40) m/uL Hgb (11.4-16.0) gm/dL Hct (34.0-46.0) % Plt Count (150-450) k/uL POC Glucose (mg/dL) 131 H (70-110) mg/dL Assessment and Plan Assessment: Acute abdomen secondary to breakdown of anastomosis status post takedown of colorectal anastomosis with conversion to Ly's procedure (06/23) septic shock secondary to intra-abdominal infection, improving Elevated lactic acid Acute hypoxic respiratory failure secondary to above requiring intubation and mechanical ventilation acute diverticulitis status post low anterior resection of the colon (06/18) Ovarian cyst status post bilateral ovarian cystectomy Worsening pneumo-peritoneam requiring exploratory laparotomy and bowel resection history of DVT Diabetes mellitus Hypertension Hyperlipidemia History of CVA Plan: Continue Zosyn. Continue with Diflucan Encourage diet Pulmonary team following closely Surgery primary team also followed closely We will discuss with surgery when to resume Eliquis Labs and medication were reviewed.. Continue same treatment. Continue with symptomatic treatment. Resume home medication. Monitor labs and vitals. DVT and GI prophylaxis. Further recommendations as per clinical course of the patient DVT prophylaxis: Eliquis (put on hold until cleared by surgery team ) , SCD GI Prophylaxis:Changed to Protonix Prognosis is guarded Thank you for consulting us, we will follow-up with the pt closely
[2023-07-07] MEDS: lisinopriL 10 MG TAB PO SCH (08:39)
[2023-07-07] MEDS: PANTOPRAZOLE 40 MG/10 ML VIAL IVP SCH ×2 (08:40→20:22)
[2023-07-07] MEDS: PIPERACILLIN-TAZOBACTAM 3.375 GM in SODIUM CHLORIDE 0.9% 100 ML IVPB SCH ×3 (08:41→23:34)
[2023-07-07] MEDS: HEPARIN SODIUM,PORCINE 5,000 UNIT/ML 1 ML VIAL SQ SCH ×2 (08:41→20:21)
[2023-07-07 09:06] LABS: Basophils % (A) 0 %; Eosinophils # (A) 0.2 k/uL (0-0.7); Eosinophils % (A) 2 %; HCT 32.5 % (34.0-46.0); HGB 10.1 gm/dL (11.4-16.0); Hypochromasia Slight; Lymphocytes % (A) 14 %; MCH 28.1 pg (25.0-35.0); MCHC 30.9 g/dL (31.0-37.0); MCV 90.8 fL (80.0-100.0); Mean Platelet Volume 9.4; Monocytes # (A) 0.5 k/uL (0-1.0); Monocytes % (A) 7 %; Neutrophils # (A) 5.7 k/uL (1.3-7.7); Neutrophils % (A) 76 %; Platelet Count 535 k/uL (150-450); RBC 3.58 m/uL (3.80-5.40); RDW 14.4 % (11.5-15.5); WBC 7.6 k/uL (3.8-10.6)
[2023-07-07] MEDS: 1: MVI, ADULT NO.4 WITH VIT K 10 ML, TRACE (CONC-1ML/DOSE) 1 ML in AMINO ACID 5%-D15W+LY IV SCH ×3 (10:42)
--- NOTE | 2023-07-07 11:01 | P.PN ---
Subjective Progress Note Date: 07/07/23 Principal diagnosis: Diverticular disease. The patient is seen today 07/01/2023 in follow-up on the regular medical floor. She is sitting up in a chair at the bedside. Awake and alert in no acute distress. Doing quite a bit better. She is maintaining O2 saturations in the 90s on 3 L/m per nasal cannula. Abdominal wound was positive for E. coli, pseudomonas aeruginosa, Nighat, strep agalactiae, group B. Peritoneal fluid is positive for anaerobic gram-negative bacilli 2. White count 10.8. Hemoglobin 9.8. Sodium 136. Potassium 4.4. Bicarb 21. BUN 22. Creatinine 0.43. Glucose 288. AST 23. ALT 177. Nasogastric tube remains in place. She is continued on TPN and lipids for nutritional support. Remains on flucanazole. Heparin for DVT prophylaxis. The patient is seen today 07/02/2023 in follow-up on the regular medical floor. She is awake and alert in no acute distress. Sitting up in a chair. Denies any worsening shortness of breath, cough or congestion. Maintaining O2 saturations in the mid 90s on 3 L/m per nasal cannula. She is afebrile. Hemodynamically stable. Sodium 137. Potassium 4.3. Bicarb 21. BUN 25. Creatinine 0.43. Glucose 127. She remains on TPN and lipids for nutritional support. Tolerating sips of clear liquids. She is continued on DuoNeb inhalations. Heparin for DVT prophylaxis. Fluconazole. The patient is seen today 07/03/2023 in follow-up on the regular medical floor. She is resting comfortably in bed. Awake and alert in no acute distress. Maintaining O2 saturations in the 90s on 3 L/m per nasal cannula. She denies any worsening shortness breath, cough or congestion. Denies any significant abdominal discomfort. She is tolerating a low fiber consistent carbohydrate diet. He count 11.8. Hemoglobin 10.0. Platelets 396. Sodium 136. Potassium 4.6. Bicarb 18. BUN 27. Creatinine 0.42. Glucose 149. She is continued on bronchodilators. Heparin for DVT prophylaxis. The patient is seen today 07/04/2023 in follow-up on the regular medical floor. She is awake and alert in no acute distress. Maintaining O2 saturations in the 90s on room air. She's been up to the shower. White count 10.0. Hemoglobin 10.9. Platelets 381. Glucose 200. He remains on DuoNeb inhalations, fluconazole, heparin for DVT prophylaxis and Zosyn. Normal saline at KVO. Progress note dated 07/05/2023. The patient is seen today in room 451. He is currently on room air. The patient is receiving saline at 20 mL an hour. She does continue on antibiotics. Clinically, she appears relatively stable. Current laboratory data includes a white count 7.9, hemoglobin 9.8, hematocrit 30.4, and a platelet count of 456,000. Sodium 138, potassium 4.1, chlorides 107, CO2 19, anion gap 12, BUN 16, and creatinine 0.52. Glucose is 142. Calcium is 8.6. Progress note dated 07/07/2023. The patient is seen today in room 451. Dr. Baires saw her yesterday. She's currently on room air. She's receiving saline at 10 mL an hour. We'll discontinue the updrafts, as there are not necessary at this time. She continu es on fluconazole and Zosyn. Clinically, she looks very frail. White count 7.6, hemoglobin 10.1, hematocrit 32.5, with a platelet count of 535,000. The patient's glucose is 131. Objective - Vital Signs Vital signs: Vital Signs Temp 98.0 F 07/07/23 07:07 Pulse 64 07/07/23 07:07 Resp 18 07/07/23 07:07 BP 154/98 07/07/23 07:07 Pulse Ox 94 L 07/07/23 07:07 FiO2 92 07/03/23 17:39 Intake & Output 07/06/23 07/07/23 07/07/23 18:59 06:59 18:59 Intake Total 250 100 Output Total 475 Balance -225 100 Intake: Intake, IV Titration 100 Amount Piperacillin-Tazobactam 3 100 .375 gm In Sodium Chloride 0.9% 100 ml @ 25 mls/hr IVPB Q8HR [facility] Rx# :[id number] Oral 250 Output: Urine 400 Stool 75 Other: Voiding Method Toilet Toilet # Voids 3 ABP, PAP, CO, CI - Last Documented Arterial Blood Pressure 160/70 - Exam No acute distress, oriented 3. Abnormal respiratory distress. The patient's currently on room air. HEENT examination is grossly unremarkable. Mucous membranes are moist. No oral lesions. Neck supple. Full range of motion. No adenopathy thyromegaly or neck vein distention. Cardiovascular examination reveals regular rhythm rate. S1-S2 normal. No S3 or S4. No discernible murmur noted. Heart rate is 64 bpm. Lungs reveal mostly clear breath sounds. Minimal scattered rhonchi. No wheezes. No crackles. Breath sounds are equal bilaterally. Room air saturation is 94 %. Abdomen soft, with mild tenderness. No masses. Extremities are intact. No cyanosis clubbing or edema. Skin is without rash or lesion. Neurologic examination is brief but nonfocal. - Labs CBC & Chem 7: 07/07/23 06:41 07/06/23 06:51 Labs: Abnormal Lab Results - Last 24 Hours (Table) 07/06/23 07/06/23 07/07/23 Range/Units 16:47 20:15 05:40 RBC (3.80-5.40) m/uL Hgb (11.4-16.0) gm/dL Hct (34.0-46.0) % MCHC (31.0-37.0) g/dL Plt Count (150-450) k/uL POC Glucose (mg/dL) 175 H 148 H 131 H (70-110) mg/dL 07/07/23 Range/Units 06:41 RBC 3.58 L (3.80-5.40) m/uL Hgb 10.1 L (11.4-16.0) gm/dL Hct 32.5 L (34.0-46.0) % MCHC 30.9 L (31.0-37.0) g/dL Plt Count 535 H (150-450) k/uL POC Glucose (mg/dL) (70-110) mg/dL Assessment and Plan Assessment: Acute abdomen/anastomotic leak following a low anterior resection. The patient was taken to the operating room and the patient underwent an extensive laparotomy, partial omentectomy, colostomy formation of this; and closure of the rectal stump. The patient is postop day #13. Low anterior resection for diverticulitis and the patient is postop day number #19. Acute hypoxic respiratory failure, resolved. Sinus tachycardia, resolved. Bradycardia secondary to Precedex, resolved. Diabetes mellitus 2. Hypertension. Hyperlipidemia. History of CVA with expressive aphasia. Previous history of DVT. Plan: Plan dated 07/05/2023. The patient is seen today in room 451. The patient continues on saline at 20 mL an hour. Clinically, her respiratory status is stable, and she is on room air. She continues on fluconazole, and Zosyn. Labs, x-rays, and medications are reviewed. The patient's prognosis remains guarded. We will continue to follow the patient, and make recommendations along the way. Plan dated 07/07/2023. The patient is seen in room 451. Labs, x-rays, and medications are reviewed. The patient continues on Zosyn and fluconazole. We will discontinue updrafts. She's currently on room air. She's receiving saline at 10 mL an hour. Labs, x- rays, and medications are reviewed. The patient's overall prognosis remains guarded. Time with Patient: Less than 30
[2023-07-07 11:14] LABS: Glucose,Whole Blood 163 mg/dL (70-110)
--- NOTE | 2023-07-07 11:30 | P.PN ---
Progress Note - Text Progress Note Date: 07/07/23 Patient's is alert and oriented 3. No distress. Abdominal exam shows colostomy functional. Open wound midline with recent dressing changes. Minimal JG drain output. Continue wound care and IV antibiotics
[2023-07-07 16:33] LABS: Glucose,Whole Blood 140 mg/dL (70-110)
[2023-07-07] MEDS: FLUCONAZOLE IN NACL,ISO-OSM 100 MG in SALINE 1 50ML.BAG IVPB SCH (16:35)
[2023-07-07 20:24] LABS: Glucose,Whole Blood 188 mg/dL (70-110)
[2023-07-08] MEDS: HYDROmorphone 0.5 MG/0.5 ML SYRINGE IVP PRN ×8 (02:32→23:23)
[2023-07-08 05:48] LABS: Glucose,Whole Blood 150 mg/dL (70-110)
[2023-07-08] MEDS: INSULIN ASPART (NovoLOG) 100 UNIT/ML VIAL SQ SCH ×4 (05:59→20:35)
[2023-07-08] MEDS: INSULIN DETEMIR (LEVEMIR) 100 UNIT/ML SYR SQ SCH ×2 (06:44→21:13)
[2023-07-08] MEDS: HEPARIN SODIUM,PORCINE 5,000 UNIT/ML 1 ML VIAL SQ SCH ×2 (08:38→20:31)
[2023-07-08] MEDS: PANTOPRAZOLE 40 MG/10 ML VIAL IVP SCH ×2 (08:38→20:31)
[2023-07-08] MEDS: lisinopriL 10 MG TAB PO SCH (08:38)
[2023-07-08] MEDS: PIPERACILLIN-TAZOBACTAM 3.375 GM in SODIUM CHLORIDE 0.9% 100 ML IVPB SCH ×3 (08:39→23:23)
--- NOTE | 2023-07-08 08:49 | XR ---
EXAMINATION TYPE: XR KUB portable DATE OF EXAM: 07/08/2023 COMPARISON: 10 pelvis 07/05/2023 HISTORY: Abdominal pain TECHNIQUE: Supine view of the abdomen was obtained with 2 radiographs. FINDINGS: Small bowel demonstrates no evidence for dilatation or air fluid levels. Gas and fecal material is seen in non-distended colon. Postsurgical changes of the sigmoid colon wit h suture material identified. Colonic diverticulosis identified. Retained contrast is identified in t he colon. Pelvic phleboliths. IVC filter demonstrated. Surgical drain identified with tip terminating in the pe lvis. The lung bases are clear. The osseous structures are intact. IMPRESSION: 1. Overall nonobstructive bowel gas pattern. 2. Colonic diverticulosis. 3. Post surgical changes of the sigmoid colon with surgical drain in the pelvis.
--- NOTE | 2023-07-08 10:01 | P.PN ---
Subjective this is a pleasant 53 years old femalepresents with diverticulitis and bilateral ovarian cyst. She status post low anterior resection with bilateral ovarian cystectomy and partial omentectomy. sHe tolerates diet well, abdominal pain is minimal. She had little watery bowel movement yesterday. Eliquis was started hemodynamically stable and labs were reviewed 07/06/2023 Patient initially presents with acute diverticulitis status post low anterior resection of the colon status post leakage from the anastomosis site and she had another surgery which is converted into Ly procedure on 06/23, she was intubated in the ICU and after stabilization she was transferred to the general medical floor, I'm seeing the patient today on the fourth floor, she is sitting up in bed, awake alert, little lethargic, family at bedside. Patient has colostomy back in the left lower quadrant with light brown stool mostly formed. With open wound nearby. Dressing in a Place. Surgical team are following. CAT scan of the abdomen and pelvis done yesterday showing air and debris within lower incision of the lower pelvis suspicious for abscesses. JG drain in place. Patient was able to tolerate diet today per family. She has some pain at surgical sites which is expected. No other complaint. She remains on Zosyn and Diflucan. Hemoglobin 10.5. Plan for possible subacute rehab next week if she keeps improvement 07/07/2023 patient tolerates diet well including this morning Her abdominal pain better JG drain has little yellow discharge No other new complaints. She is hemodynamically stable. Remains on Zosyn and Diflucan. Patient was on Eliquis prior to this Hospitalization for her history of DVT. Currently on subcu heparin. We'll discuss with surgery team wants to resume anticoagulation 07/08/2023 Patient still complaining of from postsurgical abdominal pain which is expected She tolerates diet and its 25-50% with supplemental KUB showed nonobstructive gas pattern Patient encouraged to use Balsam 7.5 mg rather than Dilaudid, patient currently focusing on getting Dilaudid only, we are going to lower the dose 0.5 down to 0.25 mg every 3 hours Light brown stool, formed in the colostomy bag She is on Zosyn and Diflucan Objective - Vital Signs Vital signs: Vital Signs Temp 98.4 F 07/08/23 07:14 Pulse 66 07/08/23 07:14 Resp 18 07/08/23 07:14 BP 146/90 07/08/23 07:14 Pulse Ox 93 L 07/08/23 08:41 FiO2 92 07/03/23 17:39 Intake & Output 07/07/23 07/08/23 07/08/23 18:59 06:59 18:59 Intake Total 1080 Balance 1080 Intake: Oral 1080 Other: # Voids 3 5 ABP, PAP, CO, CI - Last Documented Arterial Blood Pressure 160/70 - Exam -GENERAL: The patient is intubated and sedated HEENT: Pupils are round and equally reacting to light. EOMI. No scleral icterus. No conjunctival pallor. Normocephalic, atraumatic. No pharyngeal erythema. No thyromegaly. CARDIOVASCULAR: S1 and S2 present. No murmurs, rubs, or gallops. PULMONARY: Chest is clear to auscultation, no wheezing , no crackles. -ABDOMEN: Soft, periumbilical tenderness , no guarding or rebound tenderness, distended, normoactive bowel sounds. No palpable organomegaly. surgical wound is healing. Colostomy bag in a Place MUSCULOSKELETAL: No joint swelling or deformity. EXTREMITIES: No cyanosis, clubbing, or pedal edema. NEUROLOGICAL: Gross neurological examination did not reveal any focal deficits. SKIN: No rashes. no petechiae. - Labs CBC & Chem 7: 07/07/23 06:41 07/06/23 06:51 Labs: Abnormal Lab Results - Last 24 Hours (Table) 07/07/23 07/07/23 07/07/23 Range/Units 11:12 16:31 20:20 POC Glucose (mg/dL) 163 H 140 H 188 H (70-110) mg/dL 07/08/23 Range/Units 05:45 POC Glucose (mg/dL) 150 H (70-110) mg/dL Assessment and Plan Assessment: Acute abdomen secondary to breakdown of anastomosis status post takedown of colorectal anastomosis with conversion to Ly's procedure (06/23) septic shock secondary to intra-abdominal infection, improving Elevated lactic acid Acute hypoxic respiratory failure secondary to above requiring intubation and mechanical ventilation acute diverticulitis status post low anterior resection of the colon (06/18) Ovarian cyst status post bilateral ovarian cystectomy Worsening pneumo-peritoneam requiring exploratory laparotomy and bowel resection history of DVT Diabetes mellitus Hypertension Hyperlipidemia History of CVA Plan: Continue Zosyn. Continue with Diflucan Encourage diet Pulmonary team following closely Surgery primary team also followed closely We will discuss with surgery when to resume Eliquis Labs and medication were reviewed.. Continue same treatment. Continue with symptomatic treatment. Resume home medication. Monitor labs and vitals. DVT and GI prophylaxis. Further recommendations as per clinical course of the patient DVT prophylaxis: Eliquis (put on hold until cleared by surgery team ) , SCD GI Prophylaxis:Changed to Protonix Prognosis is guarded Thank you for consulting us, we will follow-up with the pt closely
--- NOTE | 2023-07-08 11:05 | P.PN ---
Subjective Progress Note Date: 07/08/23 Principal diagnosis: Diverticular disease. The patient is seen today 07/01/2023 in follow-up on the regular medical floor. She is sitting up in a chair at the bedside. Awake and alert in no acute distress. Doing quite a bit better. She is maintaining O2 saturations in the 90s on 3 L/m per nasal cannula. Abdominal wound was positive for E. coli, pseudomonas aeruginosa, Nighat, strep agalactiae, group B. Peritoneal fluid is positive for anaerobic gram-negative bacilli 2. White count 10.8. Hemoglobin 9.8. Sodium 136. Potassium 4.4. Bicarb 21. BUN 22. Creatinine 0.43. Glucose 288. AST 23. ALT 177. Nasogastric tube remains in place. She is continued on TPN and lipids for nutritional support. Remains on flucanazole. Heparin for DVT prophylaxis. The patient is seen today 07/02/2023 in follow-up on the regular medical floor. She is awake and alert in no acute distress. Sitting up in a chair. Denies any worsening shortness of breath, cough or congestion. Maintaining O2 saturations in the mid 90s on 3 L/m per nasal cannula. She is afebrile. Hemodynamically stable. Sodium 137. Potassium 4.3. Bicarb 21. BUN 25. Creatinine 0.43. Glucose 127. She remains on TPN and lipids for nutritional support. Tolerating sips of clear liquids. She is continued on DuoNeb inhalations. Heparin for DVT prophylaxis. Fluconazole. The patient is seen today 07/03/2023 in follow-up on the regular medical floor. She is resting comfortably in bed. Awake and alert in no acute distress. Maintaining O2 saturations in the 90s on 3 L/m per nasal cannula. She denies any worsening shortness breath, cough or congestion. Denies any significant abdominal discomfort. She is tolerating a low fiber consistent carbohydrate diet. He count 11.8. Hemoglobin 10.0. Platelets 396. Sodium 136. Potassium 4.6. Bicarb 18. BUN 27. Creatinine 0.42. Glucose 149. She is continued on bronchodilators. Heparin for DVT prophylaxis. The patient is seen today 07/04/2023 in follow-up on the regular medical floor. She is awake and alert in no acute distress. Maintaining O2 saturations in the 90s on room air. She's been up to the shower. White count 10.0. Hemoglobin 10.9. Platelets 381. Glucose 200. He remains on DuoNeb inhalations, fluconazole, heparin for DVT prophylaxis and Zosyn. Normal saline at KVO. Progress note dated 07/05/2023. The patient is seen today in room 451. He is currently on room air. The patient is receiving saline at 20 mL an hour. She does continue on antibiotics. Clinically, she appears relatively stable. Current laboratory data includes a white count 7.9, hemoglobin 9.8, hematocrit 30.4, and a platelet count of 456,000. Sodium 138, potassium 4.1, chlorides 107, CO2 19, anion gap 12, BUN 16, and creatinine 0.52. Glucose is 142. Calcium is 8.6. Progress note dated 07/07/2023. The patient is seen today in room 451. Dr. Baires saw her yesterday. She's currently on room air. She's receiving saline at 10 mL an hour. We'll discontinue the updrafts, as there are not necessary at this time. She continu es on fluconazole and Zosyn. Clinically, she looks very frail. White count 7.6, hemoglobin 10.1, hematocrit 32.5, with a platelet count of 535,000. The patient's glucose is 131. Progress note dated 07/08/2023. 53-year-old female seen in room 451. The patient is now been here for about 3 weeks. She's currently on room air. She's getting saline at 10 mL an hour. She continues on Zosyn and fluconazole. Labs from yesterday include a white count of 7.6, hemoglobin 10.1, hematocrit 32.5, and a platelet count of 535,000. From today thus far, glucose 150. Objective - Vital Signs Vital signs: Vital Signs Temp 98.4 F 07/08/23 07:14 Pulse 66 07/08/23 07:14 Resp 18 07/08/23 07:14 BP 146/90 07/08/23 07:14 Pulse Ox 93 L 07/08/23 08:41 FiO2 92 07/03/23 17:39 Intake & Output 07/07/23 07/08/23 07/08/23 18:59 06:59 18:59 Intake Total 1080 Balance 1080 Intake: Oral 1080 Other: # Voids 3 5 ABP, PAP, CO, CI - Last Documented Arterial Blood Pressure 160/70 - Exam No acute distress, oriented 3. Abnormal respiratory distress. The patient's currently on room air. HEENT examination is grossly unremarkable. Mucous membranes are moist. No oral lesions. Neck supple. Full range of motion. No adenopathy thyromegaly or neck vein distention. Cardiovascular examination reveals regular rhythm rate. S1-S2 normal. No S3 or S4. No discernible murmur noted. Heart rate is 66 bpm. Lungs reveal mostly clear breath sounds. Minimal scattered rhonchi. No wheezes. No crackles. Breath sounds are equal bilaterally. Room air saturation is 93 %. Abdomen soft, with mild tenderness. No masses. Extremities are intact. No cyanosis clubbing or edema. Skin is without rash or lesion. Neurologic examination is brief but nonfocal. - Labs CBC & Chem 7: 07/07/23 06:41 07/06/23 06:51 Labs: Abnormal Lab Results - Last 24 Hours (Table) 07/07/23 07/07/23 07/07/23 Range/Units 11:12 16:31 20:20 POC Glucose (mg/dL) 163 H 140 H 188 H (70-110) mg/dL 07/08/23 Range/Units 05:45 POC Glucose (mg/dL) 150 H (70-110) mg/dL Assessment and Plan Assessment: Acute abdomen/anastomotic leak following a low anterior resection. The patient was taken to the operating room and the patient underwent an extensive laparotomy, partial omentectomy, and colostomy, and closure of the rectal stump. The patient is postop day #14. Low anterior resection for diverticulitis and the patient is postop day number #20. Acute hypoxic respiratory failure, resolved. Sinus tachycardia, resolved. Bradycardia secondary to Precedex, resolved. Diabetes mellitus 2. Hypertension. Hyperlipidemia. History of CVA with expressive aphasia. Previous history of DVT. Plan: Plan dated 07/05/2023. The patient is seen today in room 451. The patient continues on saline at 20 mL an hour. Clinically, her respiratory status is stable, and she is on room air. She continues on fluconazole, and Zosyn. Labs, x-rays, and medications are rev iewed. The patient's prognosis remains guarded. We will continue to follow the patient, and make recommendations along the way. Plan dated 07/07/2023. The patient is seen in room 451. Labs, x-rays, and medications are reviewed. The patient continues on Zosyn and fluconazole. We will discontinue updrafts. She's currently on room air. She's receiving saline at 10 mL an hour. Labs, x- rays, and medications are reviewed. The patient's overall prognosis remains guarded. Plan dated 07/08/2023. The patient continues on both Zosyn and fluconazole. The patient is getting more depressed in my opinion. In addition, she gets very angry when she does not get her narcotics. Labs, x-rays, and medications are reviewed. The patient continues on room air. She's getting saline at 10 mL an hour. We will continue to follow. Prognosis is very guarded. Time with Patient: Less than 30
[2023-07-08 11:44] LABS: Glucose,Whole Blood 129 mg/dL (70-110)
[2023-07-08] MEDS: HYDROcodone/APAP 7.5-325MG 1 EACH TAB PO PRN ×2 (13:35→22:36)
--- NOTE | 2023-07-08 14:05 | P.PN ---
Subjective Progress Note Date: 07/08/23 Patient reports persistent pain. Dressing discontinued. Tissue is pink and beefy red. Serosanguinous drainage in JG. Recommend change dressings to daily due to moderate foul drainage from wound. I personally removed her dressings. Moderate stool in ostomy. Okay for shower with switch to daily dressing changes. Objective - Vital Signs Vital signs: Vital Signs Temp 98.4 F 07/08/23 07:14 Pulse 66 07/08/23 07:14 Resp 18 07/08/23 07:14 BP 146/90 07/08/23 07:14 Pulse Ox 93 L 07/08/23 08:41 FiO2 92 07/03/23 17:39 Intake & Output 07/07/23 07/08/23 07/08/23 18:59 06:59 18:59 Intake Total 1080 Balance 1080 Intake: Oral 1080 Other: # Voids 3 5 ABP, PAP, CO, CI - Last Documented Arterial Blood Pressure 160/70 - Labs CBC & Chem 7: 07/07/23 06:41 07/06/23 06:51 Labs: Abnormal Lab Results - Last 24 Hours (Table) 07/07/23 07/07/23 07/08/23 Range/Units 16:31 20:20 05:45 POC Glucose (mg/dL) 140 H 188 H 150 H (70-110) mg/dL 07/08/23 Range/Units 11:42 POC Glucose (mg/dL) 129 H (70-110) mg/dL
[2023-07-08 16:20] LABS: Glucose,Whole Blood 128 mg/dL (70-110)
[2023-07-08] MEDS: FLUCONAZOLE IN NACL,ISO-OSM 100 MG in SALINE 1 50ML.BAG IVPB SCH (16:54)
[2023-07-08 20:31] LABS: Glucose,Whole Blood 133 mg/dL (70-110)
[2023-07-09] MEDS: HYDROmorphone 0.5 MG/0.5 ML SYRINGE IVP PRN ×7 (02:55→21:17)
[2023-07-09 05:35] LABS: Glucose,Whole Blood 152 mg/dL (70-110)
[2023-07-09] MEDS: INSULIN ASPART (NovoLOG) 100 UNIT/ML VIAL SQ SCH ×4 (05:44→21:17)
[2023-07-09] MEDS: INSULIN DETEMIR (LEVEMIR) 100 UNIT/ML SYR SQ SCH ×2 (07:51→21:17)
[2023-07-09] MEDS: PANTOPRAZOLE 40 MG/10 ML VIAL IVP SCH ×2 (07:51→21:17)
[2023-07-09] MEDS: PIPERACILLIN-TAZOBACTAM 3.375 GM in SODIUM CHLORIDE 0.9% 100 ML IVPB SCH ×2 (07:51→16:04)
[2023-07-09] MEDS: HEPARIN SODIUM,PORCINE 5,000 UNIT/ML 1 ML VIAL SQ SCH ×2 (07:52→21:18)
[2023-07-09] MEDS: lisinopriL 10 MG TAB PO SCH (07:52)
[2023-07-09] MEDS: HYDROcodone/APAP 7.5-325MG 1 EACH TAB PO PRN ×3 (08:00→22:44)
[2023-07-09 11:26] LABS: Glucose,Whole Blood 126 mg/dL (70-110)
--- NOTE | 2023-07-09 11:37 | P.PN ---
Subjective this is a pleasant 53 years old femalepresents with diverticulitis and bilateral ovarian cyst. She status post low anterior resection with bilateral ovarian cystectomy and partial omentectomy. sHe tolerates diet well, abdominal pain is minimal. She had little watery bowel movement yesterday. Eliquis was started hemodynamically stable and labs were reviewed 07/06/2023 Patient initially presents with acute diverticulitis status post low anterior resection of the colon status post leakage from the anastomosis site and she had another surgery which is converted into Ly procedure on 06/23, she was intubated in the ICU and after stabilization she was transferred to the general medical floor, I'm seeing the patient today on the fourth floor, she is sitting up in bed, awake alert, little lethargic, family at bedside. Patient has colostomy back in the left lower quadrant with light brown stool mostly formed. With open wound nearby. Dressing in a Place. Surgical team are following. CAT scan of the abdomen and pelvis done yesterday showing air and debris within lower incision of the lower pelvis suspicious for abscesses. JG drain in place. Patient was able to tolerate diet today per family. She has some pain at surgical sites which is expected. No other complaint. She remains on Zosyn and Diflucan. Hemoglobin 10.5. Plan for possible subacute rehab next week if she keeps improvement 07/07/2023 patient tolerates diet well including this morning Her abdominal pain better JG drain has little yellow discharge No other new complaints. She is hemodynamically stable. Remains on Zosyn and Diflucan. Patient was on Eliquis prior to this Hospitalization for her history of DVT. Currently on subcu heparin. We'll discuss with surgery team wants to resume anticoagulation 07/08/2023 Patient still complaining of from postsurgical abdominal pain which is expected She tolerates diet and its 25-50% with supplemental KUB showed nonobstructive gas pattern Patient encouraged to use [place] 7.5 mg rather than Dilaudid, patient currently focusing on getting Dilaudid only, we are going to lower the dose 0.5 down to 0.25 mg every 3 hours Light brown stool, formed in the colostomy bag She is on Zosyn and Diflucan 07/09/2023 Patient is COMFORTABLE with mild distress due to abdominal pain but looks well- controlled similar to yesterday evening underwent exploratory Dilaudid dose down to 0.25 mg She tolerates diet well and she is eating and 50-100% Her abdominal pain and tenderness looks the same which is expected postoperatively However patient has some purulent discharge from the lower edge of the wound although dressing was CHANGED yesterday Case discussed with bed side nurse Objective - Vital Signs Vital signs: Vital Signs Temp 97.9 F 07/09/23 06:48 Pulse 73 07/09/23 06:48 Resp 17 07/09/23 06:48 BP 153/82 07/09/23 06:48 Pulse Ox 96 07/09/23 06:48 FiO2 92 07/03/23 17:39 Intake & Output 07/08/23 07/09/23 07/09/23 18:59 06:59 18:59 Intake Total 1080 Balance 1080 Intake: Oral 1080 Other: Voiding Method Toilet # Voids 3 6 # Bowel Movements 0 ABP, PAP, CO, CI - Last Documented Arterial Blood Pressure 160/70 - Exam -GENERAL: The patient is intubated and sedated HEENT: Pupils are round and equally reacting to light. EOMI. No scleral icterus. No conjunctival pallor. Normocephalic, atraumatic. No pharyngeal erythema. No thyromegaly. CARDIOVASCULAR: S1 and S2 present. No murmurs, rubs, or gallops. PULMONARY: Chest is clear to auscultation, no wheezing , no crackles. -ABDOMEN: Soft, periumbilical tenderness , no guarding or rebound tenderness, distended, normoactive bowel sounds. No palpable organomegaly. surgical wound is healing. Colostomy bag in a Place MUSCULOSKELETAL: No joint swelling or deformity. EXTREMITIES: No cyanosis, clubbing, or pedal edema. NEUROLOGICAL: Gross neurological examination did not reveal any focal deficits. SKIN: No rashes. no petechiae. - Labs CBC & Chem 7: 07/07/23 06:41 07/06/23 06:51 Labs: Abnormal Lab Results - Last 24 Hours (Table) 07/08/23 07/08/23 07/08/23 Range/Units 11:42 16:19 20:29 POC Glucose (mg/dL) 129 H 128 H 133 H (70-110) mg/dL 07/09/23 07/09/23 Range/Units 05:32 11:25 POC Glucose (mg/dL) 152 H 126 H (70-110) mg/dL Assessment and Plan Assessment: Acute abdomen secondary to breakdown of anastomosis status post takedown of colorectal anastomosis with conversion to Ly's procedure (06/23) septic shock secondary to intra-abdominal infection, improving Elevated lactic acid Acute hypoxic respiratory failure secondary to above requiring intubation and mechanical ventilation acute diverticulitis status post low anterior resection of the colon (06/18) Ovarian cyst status post bilateral ovarian cystectomy Worsening pneumo-peritoneam requiring exploratory laparotomy and bowel resection history of DVT Diabetes mellitus Hypertension Hyperlipidemia History of CVA Plan: Continue Zosyn. Continue with Diflucan Encourage diet Pulmonary team following closely Surgery primary team also followed closely We will discuss with surgery when to resume Eliquis Labs and medication were reviewed.. Continue same treatment. Continue with symptomatic treatment. Resume home medication. Monitor labs and vitals. DVT and GI prophylaxis. Further recommendations as per clinical course of the patie nt DVT prophylaxis: Eliquis (put on hold until cleared by surgery team ) , SCD GI Prophylaxis:Changed to Protonix Prognosis is guarded Thank you for consulting us, we will follow-up with the pt closely
--- NOTE | 2023-07-09 12:40 | P.PN ---
Subjective Progress Note Date: 07/09/23 CHIEF COMPLAINT: Diverticulitis HISTORY OF PRESENT ILLNES: Patient had diverticulitis with a lower anterior resection on 06/18/23. She then developed an anastomotic leak and required to be taken back to the OR on 06/24/2023. She is status post takedown of colorectal anastomosis with conversion to Ly's procedure and colostomy with close distal pouch for feculent peritonitis secondary to anastomotic leak. no output through JG drain Patient does complain of abdominal pain. The IV Dilaudid dose was decreased over the weekend to 0.25 every 3 hours as needed. She is tolerating diet. Ostomy is functioning. Afebrile. no labs for today PHYSICAL EXAM: VITAL SIGNS: Reviewed. GENERAL: no acute distress. ABDOMEN: Soft. mildly Distended. Incision with drainage and Aquacel silver packing in place. Granulation tissue noted. Foul odor. Ostomy functioning NEUROLOGIC: Awake and alert ASSESSMENT: 1. Feculent peritonitis secondary to anastomotic leak status post reopening of laparotomy, lysis of adhesions. Takedown of colorectal anastomosis with conversion to Ly's procedure and colostomy 2. Diverticulitis and bilateral ovarian cysts 3. Air and debris within the lower incision noted on computed tomography scan PLAN: -Continue local wound care -Patient to shower daily -Continue pain management. Continue to wean off Dilaudid. -Continue antibiotics -Continue regular diet -poultry farmworker working on ECF placement at time of discharge. -Continue to monitor JG drain output -Encouraged patient to ambulate and to use incentive spirometer -DVT prophylaxis subcu heparin Physician Heavy Mobile Equipment Repairer note has been reviewed by physician. Signing provider agrees with the documented findings, assessment, and plan of care. Objective - Vital Signs Vital signs: Vital Signs Temp 97.9 F 07/09/23 06:48 Pulse 73 07/09/23 06:48 Resp 17 07/09/23 06:48 BP 153/82 07/09/23 06:48 Pulse Ox 96 07/09/23 06:48 FiO2 92 07/03/23 17:39 Intake & Output 07/08/23 07/09/23 07/09/23 18:59 06:59 18:59 Intake Total 1080 Balance 1080 Intake: Oral 1080 Other: # Voids 3 6 # Bowel Movements 0 ABP, PAP, CO, CI - Last Documented Arterial Blood Pressure 160/70 - Labs CBC & Chem 7: 07/07/23 06:41 07/06/23 06:51 Labs: Abnormal Lab Results - Last 24 Hours (Table) 07/08/23 07/08/23 07/08/23 Range/Units 11:42 16:19 20:29 POC Glucose (mg/dL) 129 H 128 H 133 H (70-110) mg/dL 07/09/23 Range/Units 05:32 POC Glucose (mg/dL) 152 H (70-110) mg/dL
--- NOTE | 2023-07-09 13:43 | P.PN ---
Subjective Progress Note Date: 07/09/23 The patient is seen today 07/01/2023 in follow-up on the regular medical floor. She is sitting up in a chair at the bedside. Awake and alert in no acute distress. Doing quite a bit better. She is maintaining O2 saturations in the 90s on 3 L/m per nasal cannula. Abdominal wound was positive for E. coli, pseudomonas aeruginosa, Nighat, strep agalactiae, group B. Peritoneal fluid is positive for anaerobic gram-negative bacilli 2. White count 10.8. Hemoglobin 9.8. Sodium 136. Potassium 4.4. Bicarb 21. BUN 22. Creatinine 0.43. Glucose 288. AST 23. ALT 177. Nasogastric tube remains in place. She is continued on TPN and lipids for nutritional support. Remains on flucanazole. Heparin for DVT prophylaxis. The patient is seen today 07/02/2023 in follow-up on the regular medical floor. She is awake and alert in no acute distress. Sitting up in a chair. Denies any worsening shortness of breath, cough or congestion. Maintaining O2 saturations in the mid 90s on 3 L/m per nasal cannula. She is afebrile. Hemodynamically stable. Sodium 137. Potassium 4.3. Bicarb 21. BUN 25. Creatinine 0.43. Glucose 127. She remains on TPN and lipids for nutritional support. Tolerating sips of clear liquids. She is continued on DuoNeb inhalations. Heparin for DVT prophylaxis. Fluconazole. The patient is seen today 07/03/2023 in follow-up on the regular medical floor. She is resting comfortably in bed. Awake and alert in no acute distress. Maintaining O2 saturations in the 90s on 3 L/m per nasal cannula. She denies any worsening shortness breath, cough or congestion. Denies any significant abdominal discomfort. She is tolerating a low fiber consistent carbohydrate d iet. He count 11.8. Hemoglobin 10.0. Platelets 396. Sodium 136. Potassium 4.6. Bicarb 18. BUN 27. Creatinine 0.42. Glucose 149. She is continued on bronchodilators. Heparin for DVT prophylaxis. The patient is seen today 07/04/2023 in follow-up on the regular medical floor. She is awake and alert in no acute distress. Maintaining O2 saturations in the 90s on room air. She's been up to the shower. White count 10.0. Hemoglobin 10.9. Platelets 381. Glucose 200. He remains on DuoNeb inhalations, fluconazole, heparin for DVT prophylaxis and Zosyn. Normal saline at KVO. Progress note dated 07/05/2023. The patient is seen today in room 451. He is currently on room air. The p atient is receiving saline at 20 mL an hour. She does continue on antibiotics. Clinically, she appears relatively stable. Current laboratory data includes a white count 7.9, hemoglobin 9.8, hematocrit 30.4, and a platelet count of 456,000. Sodium 138, potassium 4.1, chlorides 107, CO2 19, anion gap 12, BUN 16, and creatinine 0.52. Glucose is 142. Calcium is 8.6. Progress note dated 07/07/2023. The patient is seen today in room 451. Dr. Baires saw her yesterday. She's currently on room air. She's receiving saline at 10 mL an hour. We'll discontinue the updrafts, as there are not necessary at this time. She continues on fluconazole and Zosyn. Clinically, she looks very frail. White count 7.6, hemoglobin 10.1, hematocrit 32.5, with a platelet count of 535,000. The patient's glucose is 131. Progress note dated 07/08/2023. 53-year-old female seen in room 451. The patient is now been here for about 3 weeks. She's currently on room air. She's getting saline at 10 mL an hour. She continues on Zosyn and fluconazole. Labs from yesterday include a white count of 7.6, hemoglobin 10.1, hematocrit 32.5, and a platelet count of 535,000. From today thus far, glucose 150. on today's evaluation of 07/11/2023, the patient is recovering from abdominal surgery. The patient is currently on room air oxygen. She is ambulating. She has aColostomy site is functional. No signs of any septicemia. The patient also has a JG drainwhich is essentially putting out minimal amount of serosanguineous material.no nausea, no vomiting, no abdominal pain, no fever or chills and the patient remains on accommodation of Zosyn and Diflucan. she is using the [employer] spirometer. No respiratory distress whatsoever at this point in time. Objective - Vital Signs Vital signs: Vital Signs Temp 97.9 F 07/09/23 06:48 Pulse 73 07/09/23 06:48 Resp 17 07/09/23 06:48 BP 153/82 07/09/23 06:48 Pulse Ox 96 07/09/23 06:48 FiO2 92 07/03/23 17:39 Intake & Output 07/08/23 07/09/23 07/09/23 18:59 06:59 18:59 Intake Total 1080 Balance 1080 Intake: Oral 1080 Other: # Voids 3 6 # Bowel Movements 0 ABP, PAP, CO, CI - Last Documented Arterial Blood Pressure 160/70 - Exam No acute distress, oriented 3. Abnormal respiratory distress. The patient's currently on room air. HEENT examination is grossly unremarkable. Mucous membranes are moist. No oral lesions. Neck supple. Full range of motion. No adenopathy thyromegaly or neck vein dis tention. Cardiovascular examination reveals regular rhythm rate. S1-S2 normal. No S3 or S4. No discernible murmur noted. Lungs reveal mostly clear breath sounds. Minimal scattered rhonchi. No wheezes. No crackles. Breath sounds are equal bilaterally. Room air saturation is 93 %. Abdomen soft, with no tenderness. No masses.the patient has a JG drain in the right lower quadrant. Abdominal wound is appropriately dressed. Colostomy is functional. Extremities are intact. No cyanosis clubbing or edema. Skin is without rash or lesion. Neurologic examination is brief but nonfocal. - Labs CBC & Chem 7: 07/07/23 06:41 07/06/23 06:51 Labs: Abnormal Lab Results - Last 24 Hours (Table) 07/08/23 07/08/23 07/08/23 Range/Units 11:42 16:19 20:29 POC Glucose (mg/dL) 129 H 128 H 133 H (70-110) mg/dL 07/09/23 Range/Units 05:32 POC Glucose (mg/dL) 152 H (70-110) mg/dL Assessment and Plan Plan: Acute abdomen/anastomotic leak following a low anterior resection. The patient was taken to the operating room and the patient underwent an extensive laparotomy, partial omentectomy, and colostomy, and closure of the rectal stump. The patient is postop day #15 Low anterior resection for diverticulitis and the patient is postop day number # 21 Acute hypoxic respiratory failure, resolved.the patient is currently on room air oxygen Sinus tachycardia, resolved. Diabetes mellitus 2.the patient is currently on Levemir insulin 12 units twice a day along with a sliding scale coverage. Hypertension. Hyperlipidemia. History of CVA with expressive aphasia. Previous history of DVT. Plan: increase mobility Colostomy is functional Monitor output from the JG drain Continue Zosyn and Diflucan at the current doses IV fluids at KVO Continue diet We'll continue to follow
[2023-07-09] MEDS: FLUCONAZOLE IN NACL,ISO-OSM 100 MG in SALINE 1 50ML.BAG IVPB SCH (16:02)
[2023-07-09 16:25] LABS: Glucose,Whole Blood 196 mg/dL (70-110)
[2023-07-09 19:26] LABS: Glucose,Whole Blood 160 mg/dL (70-110)
[2023-07-10] MEDS: PIPERACILLIN-TAZOBACTAM 3.375 GM in SODIUM CHLORIDE 0.9% 100 ML IVPB SCH ×3 (00:45→16:56)
[2023-07-10] MEDS: HYDROmorphone 0.5 MG/0.5 ML SYRINGE IVP PRN ×4 (00:45→09:53)
[2023-07-10] MEDS: HYDROcodone/APAP 7.5-325MG 1 EACH TAB PO PRN ×2 (03:02→08:53)
[2023-07-10 05:37] LABS: Glucose,Whole Blood 132 mg/dL (70-110)
[2023-07-10] MEDS: INSULIN ASPART (NovoLOG) 100 UNIT/ML VIAL SQ SCH ×4 (06:32→20:17)
[2023-07-10] MEDS: INSULIN DETEMIR (LEVEMIR) 100 UNIT/ML SYR SQ SCH ×2 (06:41→20:17)
[2023-07-10] MEDS: HEPARIN SODIUM,PORCINE 5,000 UNIT/ML 1 ML VIAL SQ SCH ×2 (08:52→20:17)
[2023-07-10] MEDS: PANTOPRAZOLE 40 MG/10 ML VIAL IVP SCH ×2 (08:52→20:17)
[2023-07-10] MEDS: lisinopriL 10 MG TAB PO SCH (08:53)
[2023-07-10 11:17] LABS: Glucose,Whole Blood 139 mg/dL (70-110)
--- NOTE | 2023-07-10 11:23 | P.PN ---
Subjective Progress Note Date: 07/10/23 The patient is seen today 07/01/2023 in follow-up on the regular medical floor. She is sitting up in a chair at the bedside. Awake and alert in no acute distress. Doing quite a bit better. She is maintaining O2 saturations in the 90s on 3 L/m per nasal cannula. Abdominal wound was positive for E. coli, pseudomonas aeruginosa, Nighat, strep agalactiae, group B. Peritoneal fluid is positive for anaerobic gram-negative bacilli 2. White count 10.8. Hemoglobin 9.8. Sodium 136. Potassium 4.4. Bicarb 21. BUN 22. Creatinine 0.43. Glucose 288. AST 23. ALT 177. Nasogastric tube remains in place. She is continued on TPN and lipids for nutritional support. Remains on flucanazole. Heparin for DVT prophylaxis. The patient is seen today 07/02/2023 in follow-up on the regular medical floor. She is awake and alert in no acute distress. Sitting up in a chair. Denies any worsening shortness of breath, cough or congestion. Maintaining O2 saturations in the mid 90s on 3 L/m per nasal cannula. She is afebrile. Hemodynamically stable. Sodium 137. Potassium 4.3. Bicarb 21. BUN 25. Creatinine 0.43. Glucose 127. She remains on TPN and lipids for nutritional support. Tolerating sips of clear liquids. She is continued on DuoNeb inhalations. Heparin for DVT prophylaxis. Fluconazole. The patient is seen today 07/03/2023 in follow-up on the regular medical floor. She is resting comfortably in bed. Awake and alert in no acute distress. Maintaining O2 saturations in the 90s on 3 L/m per nasal cannula. She denies any worsening shortness breath, cough or congestion. Denies any significant abdominal discomfort. She is tolerating a low fiber consistent carbohydrate d iet. He count 11.8. Hemoglobin 10.0. Platelets 396. Sodium 136. Potassium 4.6. Bicarb 18. BUN 27. Creatinine 0.42. Glucose 149. She is continued on bronchodilators. Heparin for DVT prophylaxis. The patient is seen today 07/04/2023 in follow-up on the regular medical floor. She is awake and alert in no acute distress. Maintaining O2 saturations in the 90s on room air. She's been up to the shower. White count 10.0. Hemoglobin 10.9. Platelets 381. Glucose 200. He remains on DuoNeb inhalations, fluconazole, heparin for DVT prophylaxis and Zosyn. Normal saline at KVO. Progress note dated 07/05/2023. The patient is seen today in room 451. He is currently on room air. The p atient is receiving saline at 20 mL an hour. She does continue on antibiotics. Clinically, she appears relatively stable. Current laboratory data includes a white count 7.9, hemoglobin 9.8, hematocrit 30.4, and a platelet count of 456,000. Sodium 138, potassium 4.1, chlorides 107, CO2 19, anion gap 12, BUN 16, and creatinine 0.52. Glucose is 142. Calcium is 8.6. Progress note dated 07/07/2023. The patient is seen today in room [address]. Dr. Baires saw her yesterday. She's currently on room air. She's receiving saline at 10 mL an hour. We'll discontinue the updrafts, as there are not necessary at this time. She continues on fluconazole and Zosyn. Clinically, she looks very frail. White count 7.6, hemoglobin 10.1, hematocrit 32.5, with a platelet count of 535,000. The patient's glucose is 131. Progress note dated 07/08/2023. 53-year-old female seen in room 451. The patient is now been here for about 3 weeks. She's currently on room air. She's getting saline at 10 mL an hour. She continues on Zosyn and fluconazole. Labs from yesterday include a white count of 7.6, hemoglobin 10.1, hematocrit 32.5, and a platelet count of 535,000. From today thus far, glucose 150. on today's evaluation of 07/11/2023, the patient is recovering from abdominal surgery. The patient is currently on room air oxygen. She is ambulating. She has aColostomy site is functional. No signs of any septicemia. The patient also has a JG drainwhich is essentially putting out minimal amount of serosanguineous material.no nausea, no vomiting, no abdominal pain, no fever or chills and the patient remains on accommodation of Zosyn and Diflucan. she is using the [employer] spirometer. No respiratory distress whatsoever at this point in time. 07/10/2023, seeing the patient for a follow-up. She is ambulating. She remains on the same antibiotic coverage included a combination of Zosyn and Diflucan. Colostomy is functional. No nausea or emesis. No fever or chills. No other complaints otherwise for now. She is on room air oxygen. Objective - Vital Signs Vital signs: Vital Signs Temp 97.6 F 07/10/23 07:01 Pulse 60 07/10/23 07:01 Resp 18 07/10/23 07:01 BP 156/93 07/10/23 07:01 Pulse Ox 94 L 07/10/23 07:01 FiO2 92 07/03/23 17:39 Intake & Output 07/09/23 07/10/23 07/10/23 18:59 06:59 18:59 Output Total 50 Balance -50 Weight 80.4 kg Output: Stool 50 Other: Voiding Method Toilet Toilet # Voids 3 ABP, PAP, CO, CI - Last Documented Arterial Blood Pressure 160/70 - Exam No acute distress, oriented 3. Abnormal respiratory distress. The patient's currently on room air. HEENT examination is grossly unremarkable. Mucous membranes are moist. No oral lesions. Neck supple. Full range of motion. No adenopathy thyromegaly or neck vein distention. Cardiovascular examination reveals regular rhythm rate. S1-S2 normal. No S3 or S4. No discernible murmur noted. Lungs reveal mostly clear breath sounds. Minimal scattered rhonchi. No wheezes. No crackles. Breath sounds are equal bilaterally. Room air saturati on is 93 %. Abdomen soft, with no tenderness. No masses.the patient has a JG drain in the right lower quadrant. Abdominal wound is appropriately dressed. Colostomy is functional. Extremities are intact. No cyanosis clubbing or edema. Skin is without rash or lesion. Neurologic examination is brief but nonfocal. - Labs CBC & Chem 7: 07/07/23 06:41 07/06/23 06:51 Labs: Abnormal Lab Results - Last 24 Hours (Table) 07/09/23 07/09/23 07/09/23 Range/Units 11:25 16:24 19:25 POC Glucose (mg/dL) 126 H 196 H 160 H (70-110) mg/dL 07/10/23 Range/Units 05:34 POC Glucose (mg/dL) 132 H (70-110) mg/dL Assessment and Plan Plan: Acute abdomen/anastomotic leak following a low anterior resection. The patient was taken to the operating room and the patient underwent an extensive laparotomy, partial omentectomy, and colostomy, and closure of the rectal stump. The patient is postop day # seen Low anterior resection for diverticulitis and the patient is postop day number # 22 Acute hypoxic respiratory failure, resolved.the patient is currently on room air oxygen Sinus tachycardia, resolved. Diabetes mellitus type 2.the patient is currently on Levemir insulin 12 units twice a day along with a sliding scale coverage. Hypertension. Hyperlipidemia. History of CVA with expressive aphasia. Previous history of DVT. Plan: increase mobility Colostomy is functional Monitor output from the JG drain Continue Zosyn and Diflucan at the current doses IV fluids at KVO Continue diet We'll continue to follow
--- NOTE | 2023-07-10 11:31 | P.PN ---
Subjective Progress Note Date: 07/10/23 This is a 53-year-old patient being seen in the ICU currently intubated and on mechanical ventilation for a nonhealing ulceration to the abdomen. Patient has history of diverticulitis with a lower anterior resection on 06/18/2023. She developed an anastomotic leak that required to be taken back to the OR on 06/24/2023. Patient currently has an open belly with Kerlix in place. Multiple areas are stapled to help with closure. Patient also has a colostomy that is proximal to the ulceration site. Patient previously had a negative pressure wound VAC in place however that was removed. Ulceration measures approximately 14 x 5 x 4 cm, with muscle exposure without necrosis. No tunneling or undermini ng noted. Granulation seen throughout the wound bed with minimal Slough and nonviable tissue present. 07/10/2023: With asked to reexamine patient after a additional intervention in the operating room. Patient currently has chantell and placed to a open ulceration to the midline abdomen. Multiple areas are stapled however they are not assisting with closure of the ulceration. Previously ordered observed to silver rope to the site. Ulceration measures approximately 14 x 5 x 4 cm with muscle exposure without necrosis. Undermining is noted. Granulation seen throughout the wound bed with serous drainage. Slough and nonviable tissue present. Review of systems: Unable to obtain due to intubation Physical exam: General Appearance: Alert, cooperative, no distress, appears stated age. Skin: See HPI all other Skin color, texture, tugor normal, no rashes or lesions. Neurologic: Alert oriented x3 Assessment: 1. Nonhealing ulceration of abdomen with muscle exposure without necrosis 2. Diabetes with skin ulceration 3. CVA Plan: 1. Apply absorptive silver rope, moistened, cover with ABD secure with paper tape. Change Sunday. Recommendation to remove the chantell and apply and negative pressure wound VAC to assist with healing. 2. We'll be happy to see the patient in the wound care center to continue follow-up. Thank you for the consultation any questions please contact the wound care center DNP note has been reviewed and discussed with Dr. Reddy and the impression and plan of care has been directed as dictated. Objective - Vital Signs Vital signs: Vital Signs Temp 97.6 F 07/10/23 07:01 Pulse 60 07/10/23 07:01 Resp 18 07/10/23 07:01 BP 156/93 07/10/23 07:01 Pulse Ox 94 L 07/10/23 07:01 FiO2 92 07/03/23 17:39 Intake & Output 07/09/23 07/10/23 07/10/23 18:59 06:59 18:59 Output Total 50 Balance -50 Weight 80.4 kg Output: Stool 50 Other: Voiding Method Toilet Toilet # Voids 3 ABP, PAP, CO, CI - Last Documented Arterial Blood Pressure 160/70 - Labs CBC & Chem 7: 07/07/23 06:41 07/06/23 06:51 Labs: Abnormal Lab Results - Last 24 Hours (Table) 07/09/23 07/09/23 07/10/23 Range/Units 16:24 19:25 05:34 POC Glucose (mg/dL) 196 H 160 H 132 H (70-110) mg/dL 07/10/23 Range/Units 11:15 POC Glucose (mg/dL) 139 H (70-110) mg/dL Assessment and Plan (1) Non-pressure chronic ulcer of skin of other sites with muscle involvement without evidence of necrosis Current Visit: Yes Status: Acute Code(s): L98.495 - NON-PRS CHR [facility] SKIN/ OTH SITE WITH MSL INVL W/O EVD OF NECR SNOMED Code(s): 41210157 (2) Type 2 diabetes mellitus with other skin ulcer Current Visit: Yes Status: Acute Code(s): E11.622 - TYPE 2 DIABETES MELLITUS WITH OTHER SKIN ULCER; L98.499 - NON-PRESSURE CHRONIC ULCER OF SKIN OF SITES W UNSP SEVERITY SNOMED Code(s): 406306816 (3) CVA (cerebral vascular accident) Current Visit: Yes Status: Acute Code(s): I63.9 - CEREBRAL INFARCTION, UNSPECIFIED SNOMED Code(s): 955338624
[2023-07-10] MEDS ORDERED: IBUPROFEN 600 MG TAB PO PRN (11:56)
[2023-07-10] MEDS ORDERED: KETOROLAC 15 MG/ML 1 ML VIAL IVP SCH (12:00)
[2023-07-10] MEDS: HYDROcodone/APAP 10-325MG 1 EACH TAB PO PRN ×3 (12:07→20:17)
--- NOTE | 2023-07-10 13:32 | P.PN ---
Subjective Progress Note Date: 07/10/23 CHIEF COMPLAINT: Diverticulitis HISTORY OF PRESENT ILLNES: Patient had diverticulitis with a lower anterior resection on 06/18/23. She then developed an anastomotic leak and required to be taken back to the OR on 06/24/2023. She is status post takedown of colorectal anastomosis with conversion to Ly's procedure and colostomy with close distal pouch for feculent peritonitis secondary to anastomotic leak. Patient does complain of abdominal pain. She has still been requiring the IV Dilaudid to help with pain control. Ostomy is functioning. Denies any nausea or vomiting. She did ambulate in the hallway. She was seen by the wound care service and they're recommending wound VAC placement. Afebrile. Labs pending. No output through JG drain PHYSICAL EXAM: VITAL SIGNS: Reviewed. GENERAL: no acute distress. ABDOMEN: Soft. mildly Distended. Incision with drainage and Aquacel silver packing in place. Granulation tissue noted. Foul odor. Ostomy functioning NEUROLOGIC: Awake and alert ASSESSMENT: 1. Feculent peritonitis secondary to anastomotic leak status post reopening of laparotomy, lysis of adhesions. Takedown of colorectal anastomosis with conversion to Ly's procedure and colostomy 2. Diverticulitis and bilateral ovarian cysts PLAN: -Remove chantell from abdominal incision -Apply wound vac -Appreciate wound care service recommendations -Discontinue IV Dilaudid -Increase [place] to 10 mg oral every 4 hours as needed for pain. Add oral Motrin as needed for pain -Continue antibiotics -Anticipate discharge to ECF possibly tomorrow or -Continue to monitor JG drain output -Encouraged patient to ambulate and to use incentive spirometer -DVT prophylaxis subcu heparin Physician Die Cast Die Maker note has been reviewed by physician. Signing provider agrees with the documented findings, assessment, and plan of care. Objective - Vital Signs Vital signs: Vital Signs Temp 97.6 F 07/10/23 07:01 Pulse 60 07/10/23 07:01 Resp 18 07/10/23 07:01 BP 156/93 07/10/23 07:01 Pulse Ox 94 L 07/10/23 07:01 FiO2 92 07/03/23 17:39 Intake & Output 07/09/23 07/10/23 07/10/23 18:59 06:59 18:59 Output Total 50 Balance -50 Weight 80.4 kg Output: Stool 50 Other: Voiding Method Toilet Toilet # Voids 3 ABP, PAP, CO, CI - Last Documented Arterial Blood Pressure 160/70 - Labs CBC & Chem 7: 07/07/23 06:41 07/06/23 06:51 Labs: Abnormal Lab Results - Last 24 Hours (Table) 07/09/23 07/09/23 07/09/23 Range/Units 11:25 16:24 19:25 POC Glucose (mg/dL) 126 H 196 H 160 H (70-110) mg/dL 07/10/23 Range/Units 05:34 POC Glucose (mg/dL) 132 H (70-110) mg/dL
--- NOTE | 2023-07-10 13:59 | P.PN ---
Subjective this is a pleasant 53 years old femalepresents with diverticulitis and bilateral ovarian cyst. She status post low anterior resection with bilateral ovarian cystectomy and partial omentectomy. sHe tolerates diet well, abdominal pain is minimal. She had little watery bowel movement yesterday. Eliquis was started hemodynamically stable and labs were reviewed 07/06/2023 Patient initially presents with acute diverticulitis status post low anterior resection of the colon status post leakage from the anastomosis site and she had another surgery which is converted into Ly procedure on 06/23, she was intubated in the ICU and after stabilization she was transferred to the general medical floor, I'm seeing the patient today on the fourth floor, she is sitting up in bed, awake alert, little lethargic, family at bedside. Patient has colostomy back in the left lower quadrant with light brown stool mostly formed. With open wound nearby. Dressing in a Place. Surgical team are following. CAT scan of the abdomen and pelvis done yesterday showing air and debris within lower incision of the lower pelvis suspicious for abscesses. JG drain in place. Patient was able to tolerate diet today per family. She has some pain at surgical sites which is expected. No other complaint. She remains on Zosyn and Diflucan. Hemoglobin 10.5. Plan for possible subacute rehab next week if she keeps improvement 07/07/2023 patient tolerates diet well including this morning Her abdominal pain better JG drain has little yellow discharge No other new complaints. She is hemodynamically stable. Remains on Zosyn and Diflucan. Patient was on Eliquis prior to this Hospitalization for her history of DVT. Currently on subcu heparin. We'll discuss with surgery team wants to resume anticoagulation 07/08/2023 Patient still complaining of from postsurgical abdominal pain which is expected She tolerates diet and its 25-50% with supplemental KUB showed nonobstructive gas pattern Patient encouraged to use [place] 7.5 mg rather than Dilaudid, patient currently focusing on getting Dilaudid only, we are going to lower the dose 0.5 down to 0.25 mg every 3 hours Light brown stool, formed in the colostomy bag She is on Zosyn and Diflucan 07/09/2023 Patient is COMFORTABLE with mild distress due to abdominal pain but looks well- controlled similar to yesterday evening underwent exploratory Dilaudid dose down to 0.25 mg She tolerates diet well and she is eating and 50-100% Her abdominal pain and tenderness looks the same which is expected postoperatively However patient has some purulent discharge from the lower edge of the wound although dressing was CHANGED yesterday Case discussed with bed side nurse 07/10/2023 no new complaints Patient still have some pain at the surgical sites which is expected however Motrin and ibuprofen was increased and provided for the patient with 1-2 days of monitoring Wound VAC to be placed by wound care team. She is on Zosyn and Diflucan Objective - Vital Signs Vital signs: Vital Signs Temp 97.8 F 07/10/23 13:15 Pulse 68 07/10/23 13:15 Resp 19 07/10/23 13:15 BP 162/91 07/10/23 13:15 Pulse Ox 96 07/10/23 13:15 FiO2 92 07/03/23 17:39 Intake & Output 07/09/23 07/10/23 07/10/23 18:59 06:59 18:59 Intake Total 150 Output Total 50 Balance -50 150 Weight 80.4 kg Intake: IV 50 Fluconazole in NaCl,Iso- 50 Osm 100 mg In Saline 1 50ml.bag @ 50 mls/hr IVPB DAILY@1600 [facility] Rx#: [id number] Intake, IV Titration 100 Amount Piperacillin-Tazobactam 3 100 .375 gm In Sodium Chloride 0.9% 100 ml @ 25 mls/hr IVPB Q8HR [facility] Rx# :[id number] Output: Stool 50 Other: Voiding Method Toilet Toilet # Voids 3 ABP, PAP, CO, CI - Last Documented Arterial Blood Pressure 160/70 - Exam -GENERAL: The patient is intubated and sedated HEENT: Pupils are round and equally reacting to light. EOMI. No scleral icterus. No conjunctival pallor. Normocephalic, atraumatic. No pharyngeal erythema. No thyromegaly. CARDIOVASCULAR: S1 and S2 present. No murmurs, rubs, or gallops. PULMONARY: Chest is clear to auscultation, no wheezing , no crackles. -ABDOMEN: Soft, periumbilical tenderness , no guarding or rebound tenderness, distended, normoactive bowel sounds. No palpable organomegaly. surgical wound is healing. Colostomy bag in a Place MUSCULOSKELETAL: No joint swelling or deformity. EXTREMITIES: No cyanosis, clubbing, or pedal edema. NEUROLOGICAL: Gross neurological examination did not reveal any focal deficits. SKIN: No rashes. no petechiae. - Labs CBC & Chem 7: 07/07/23 06:41 07/06/23 06:51 Labs: Abnormal Lab Results - Last 24 Hours (Table) 07/09/23 07/09/23 07/10/23 Range/Units 16:24 19:25 05:34 POC Glucose (mg/dL) 196 H 160 H 132 H (70-110) mg/dL 07/10/23 Range/Units 11:15 POC Glucose (mg/dL) 139 H (70-110) mg/dL Assessment and Plan Assessment: Acute abdomen secondary to breakdown of anastomosis status post takedown of colorectal anastomosis with conversion to Ly's procedure (06/23) septic shock secondary to intra-abdominal infection, improving Elevated lactic acid Acute hypoxic respiratory failure secondary to above requiring intubation and mechanical ventilation acute diverticulitis status post low anterior resection of the colon (06/18) Ovarian cyst status post bilateral ovarian cystectomy Worsening pneumo-peritoneam requiring exploratory laparotomy and bowel resection history of DVT Diabetes mellitus Hypertension Hyperlipidemia History of CVA Plan: Continue Zosyn. Continue with Diflucan Encourage diet Pulmonary team following closely Surgery primary team also followed closely We will discuss with surgery when to resume Eliquis Labs and medication were reviewed.. Continue same treatment. Continue with symptomatic treatment. Resume home medication. Monitor labs and vitals. DVT and GI prophylaxis. Further recommendations as per clinical course of the patient DVT prophylaxis: Eliquis (put on hold until cleared by surgery team ) , SCD GI Prophylaxis:Changed to Protonix Prognosis is guarded Thank you for consulting us, we will follow-up with the pt closely
[2023-07-10 15:31] LABS: Basophils # (A) 0.05 X 10*3/uL (0.00-0.10); Basophils % (A) 0.7 %; Eosinophils # (A) 0.17 X 10*3/uL (0.04-0.35); Eosinophils % (A) 2.5 %; HCT 30.8 % (37.2-46.3); HGB 9.6 g/dL (12.0-15.0); Lymphocytes # (A) 1.09 X 10*3/uL (0.90-5.00); Lymphocytes % (A) 15.9 %; MCHC 31.2 g/dL (32.0-37.0); MCV 89.8 FL (80.0-97.0); Mean Platelet Volume 10.9 FL (9.5-12.2); Monocytes # (A) 0.65 X 10*3/uL (0.20-1.00); Monocytes % (A) 9.5 %; NRBC Per 100 WBC 0 X 10*3/uL (0.00-0.01); Neutrophils # (A) 4.82 X 10*3/uL (1.80-7.70); Neutrophils % (A) 70.5 %; Platelet Count 413 X 10*3/uL (140-440); RBC 3.43 X 10*6/uL (4.10-5.20); RDW 14.4 % (11.5-14.5); WBC 6.84 X 10*3/uL (4.50-10.00)
[2023-07-10] MEDS: FLUCONAZOLE IN NACL,ISO-OSM 100 MG in SALINE 1 50ML.BAG IVPB SCH (15:42)
[2023-07-10 16:46] LABS: Glucose,Whole Blood 142 mg/dL (70-110)
[2023-07-10 19:34] LABS: Glucose,Whole Blood 173 mg/dL (70-110)
[2023-07-10] MEDS ORDERED: TEMAZEPAM 7.5 MG CAP PO PRN (20:51)
[2023-07-11] MEDS: HYDROcodone/APAP 10-325MG 1 EACH TAB PO PRN ×6 (00:06→23:13)
[2023-07-11] MEDS: PIPERACILLIN-TAZOBACTAM 3.375 GM in SODIUM CHLORIDE 0.9% 100 ML IVPB SCH ×2 (00:07→07:14)
[2023-07-11 05:18] LABS: Glucose,Whole Blood 133 mg/dL (70-110)
[2023-07-11] MEDS: INSULIN ASPART (NovoLOG) 100 UNIT/ML VIAL SQ SCH ×4 (05:23→21:05)
[2023-07-11] MEDS: INSULIN DETEMIR (LEVEMIR) 100 UNIT/ML SYR SQ SCH ×2 (06:33→21:05)
[2023-07-11] MEDS: lisinopriL 10 MG TAB PO SCH (07:13)
[2023-07-11] MEDS: HEPARIN SODIUM,PORCINE 5,000 UNIT/ML 1 ML VIAL SQ SCH (07:13)
[2023-07-11] MEDS: PANTOPRAZOLE 40 MG/10 ML VIAL IVP SCH (08:52)
--- NOTE | 2023-07-11 10:58 | P.PN ---
Subjective this is a pleasant 53 years old femalepresents with diverticulitis and bilateral ovarian cyst. She status post low anterior resection with bilateral ovarian cystectomy and partial omentectomy. sHe tolerates diet well, abdominal pain is minimal. She had little watery bowel movement yesterday. Eliquis was started hemodynamically stable and labs were reviewed 07/06/2023 Patient initially presents with acute diverticulitis status post low anterior resection of the colon status post leakage from the anastomosis site and she had another surgery which is converted into Ly procedure on 06/23, she was intubated in the ICU and after stabilization she was transferred to the general medical floor, I'm seeing the patient today on the fourth floor, she is sitting up in bed, awake alert, little lethargic, family at bedside. Patient has colostomy back in the left lower quadrant with light brown stool mostly formed. With open wound nearby. Dressing in a Place. Surgical team are following. CAT scan of the abdomen and pelvis done yesterday showing air and debris within lower incision of the lower pelvis suspicious for abscesses. JG drain in place. Patient was able to tolerate diet today per family. She has some pain at surgical sites which is expected. No other complaint. She remains on Zosyn and Diflucan. Hemoglobin 10.5. Plan for possible subacute rehab next week if she keeps improvement 07/07/2023 patient tolerates diet well including this morning Her abdominal pain better JG drain has little yellow discharge No other new complaints. She is hemodynamically stable. Remains on Zosyn and Diflucan. Patient was on Eliquis prior to this Hospitalization for her history of DVT. Currently on subcu heparin. We'll discuss with surgery team wants to resume anticoagulation 07/08/2023 Patient still complaining of from postsurgical abdominal pain which is expected She tolerates diet and its 25-50% with supplemental KUB showed nonobstructive gas pattern Patient encouraged to use [place] 7.5 mg rather than Dilaudid, patient currently focusing on getting Dilaudid only, we are going to lower the dose 0.5 down to 0.25 mg every 3 hours Light brown stool, formed in the colostomy bag She is on Zosyn and Diflucan 07/09/2023 Patient is COMFORTABLE with mild distress due to abdominal pain but looks well- controlled similar to yesterday evening underwent exploratory Dilaudid dose down to 0.25 mg She tolerates diet well and she is eating and 50-100% Her abdominal pain and tenderness looks the same which is expected postoperatively However patient has some purulent discharge from the lower edge of the wound although dressing was CHANGED yesterday Case discussed with bed side nurse 07/10/2023 no new complaints Patient still have some pain at the surgical sites which is expected however Motrin and ibuprofen was increased and provided for the patient with 1-2 days of monitoring Wound VAC to be placed by wound care team. She is on Zosyn and Diflucan 06/10/2023 Patient looks more comfortable today, she rates her pain in the abdomen at 7/[address] She tolerates diet well. We will discuss with surgery team went to resume Vee, patient states that she has history of deep venous thrombosis in both legs at 2 different time. Currently remains on subcu heparin Also she is on performing an [place] 10 for pain control and she is on Zosyn and Diflucan. Objective - Vital Signs Vital signs: Vital Signs Temp 97.9 F 07/11/23 06:44 Pulse 65 07/11/23 06:44 Resp 19 07/11/23 06:44 BP 151/90 07/11/23 06:44 Pulse Ox 94 L 07/11/23 06:44 FiO2 92 07/03/23 17:39 Intake & Output 07/10/23 07/11/23 07/11/23 18:59 06:59 18:59 Intake Total 150 650 Balance 150 650 Intake: IV 50 650 Fluconazole in NaCl,Iso- 50 50 Osm 100 mg In Saline 1 50ml.bag @ 50 mls/hr IVPB DAILY@1600 [facility] Rx#: [id number] Sodium Chloride 0.9% 1, 600 000 ml @ 75 mls/hr IV . [id number] [facility] Rx#:[id number] Intake, IV Titration 100 Amount Piperacillin-Tazobactam 3 100 .375 gm In Sodium Chloride 0.9% 100 ml @ 25 mls/hr IVPB Q8HR [facility] Rx# :[id number] Other: Voiding Method Toilet # Voids 2 ABP, PAP, CO, CI - Last Documented Arterial Blood Pressure 160/70 - Exam -GENERAL: The patient is intubated and sedated HEENT: Pupils are round and equally reacting to light. EOMI. No scleral icterus. No conjunctival pallor. Normocephalic, atraumatic. No pharyngeal erythema. No thyromegaly. CARDIOVASCULAR: S1 and S2 present. No murmurs, rubs, or gallops. PULMONARY: Chest is clear to auscultation, no wheezing , no crackles. -ABDOMEN: Soft, periumbilical tenderness , no guarding or rebound tenderness, distended, normoactive bowel sounds. No palpable organomegaly. surgical wound is healing. Colostomy bag in a Place MUSCULOSKELETAL: No joint swelling or deformity. EXTREMITIES: No cyanosis, clubbing, or pedal edema. NEUROLOGICAL: Gross neurological examination did not reveal any focal deficits. SKIN: No rashes. no petechiae. - Labs CBC & Chem 7: 07/10/23 09:00 07/06/23 06:51 Labs: Abnormal Lab Results - Last 24 Hours (Table) 07/10/23 07/10/23 07/10/23 Range/Units 09:00 11:15 16:45 RBC 3.43 L (4.10-5.20) X 10*6/uL Hgb 9.6 L (12.0-15.0) g/dL Hct 30.8 L (37.2-46.3) % MCHC 31.2 L (32.0-37.0) g/dL POC Glucose (mg/dL) 139 H 142 H (70-110) mg/dL 07/10/23 07/11/23 Range/Units 19:33 05:17 RBC (4.10-5.20) X 10*6/uL Hgb (12.0-15.0) g/dL Hct (37.2-46.3) % MCHC (32.0-37.0) g/dL POC Glucose (mg/dL) 173 H 133 H (70-110) mg/dL Assessment and Plan Assessment: Acute abdomen secondary to breakdown of anastomosis status post takedown of colorectal anastomosis with conversion to Ly's procedure (06/23) septic shock secondary to intra-abdominal infection, improving Elevated lactic acid Acute hypoxic respiratory failure secondary to above requiring intubation and me chanical ventilation acute diverticulitis status post low anterior resection of the colon (06/18) Ovarian cyst status post bilateral ovarian cystectomy Worsening pneumo-peritoneam requiring exploratory laparotomy and bowel resection history of DVT Diabetes mellitus Hypertension Hyperlipidemia History of CVA Plan: Continue Zosyn. Continue with Diflucan Encourage diet Pulmonary team following closely Surgery primary team also followed closely We will discuss with surgery when to resume Eliquis Labs and medication were reviewed.. Continue same treatment. Continue with symptomatic treatment. Resume home medication. Monitor labs and vitals. DVT and GI prophylaxis. Further recommendations as per clinical course of the patient DVT prophylaxis: Eliquis (put on hold until cleared by surgery team ) , SCD AND subcu heparin GI Prophylaxis:Changed to Protonix Prognosis is guarded Thank you for consulting us, we will follow-up with the pt closely
[2023-07-11 11:16] LABS: Glucose,Whole Blood 127 mg/dL (70-110)
[2023-07-11] MEDS: IBUPROFEN 600 MG TAB PO SCH ×3 (13:04→21:04)
[2023-07-11 13:52] LABS: Basophils # (A) 0.06 X 10*3/uL (0.00-0.10); Basophils % (A) 0.9 %; Eosinophils # (A) 0.24 X 10*3/uL (0.04-0.35); Eosinophils % (A) 3.5 %; HCT 30.5 % (37.2-46.3); HGB 9.3 g/dL (12.0-15.0); Lymphocytes # (A) 1.08 X 10*3/uL (0.90-5.00); Lymphocytes % (A) 15.9 %; MCH 28.3 pg (27.0-32.0); MCHC 30.5 g/dL (32.0-37.0); MCV 92.7 FL (80.0-97.0); Mean Platelet Volume 10.7 FL (9.5-12.2); Monocytes # (A) 0.64 X 10*3/uL (0.20-1.00); Monocytes % (A) 9.4 %; NRBC Per 100 WBC 0 X 10*3/uL (0.00-0.01); Neutrophils # (A) 4.74 X 10*3/uL (1.80-7.70); Neutrophils % (A) 69.6 %; Platelet Count 365 X 10*3/uL (140-440); RBC 3.29 X 10*6/uL (4.10-5.20); RDW 14.3 % (11.5-14.5); WBC 6.81 X 10*3/uL (4.50-10.00)
--- NOTE | 2023-07-11 14:43 | P.PN ---
Subjective Progress Note Date: 07/11/23 CHIEF COMPLAINT: Diverticulitis HISTORY OF PRESENT ILLNES: Patient had diverticulitis with a lower anterior resection on 06/18/23. She then developed an anastomotic leak and required to be taken back to the OR on 06/24/2023. She is status post takedown of colorectal anastomosis with conversion to Ly's procedure and colostomy with close distal pouch for feculent peritonitis secondary to anastomotic leak. Patient continues complaining of abdominal pain. But does report that the pain is getting better. She denies any nausea or vomiting. Her ostomy is functioning. She now has wound VAC in place. Afebrile. Per nursing staff Stoma does have some separation and is retracting. PHYSICAL EXAM: VITAL SIGNS: Reviewed. GENERAL: no acute distress. ABDOMEN: Soft. mildly Distended. ostomy with stool. Wound Vac in place NEUROLOGIC: Awake and alert ASSESSMENT: 1. Feculent peritonitis secondary to anastomotic leak status post reopening of laparotomy, lysis of adhesions. Takedown of colorectal anastomosis with conversion to Ly's procedure and colostomy 2. Diverticulitis and bilateral ovarian cysts PLAN: -Continue wound vac -change Motrin to scheduled -Continue antibiotics -Anticipate discharge to ECF tomorrow -Continue to monitor JG drain output -Encouraged patient to ambulate and to use incentive spirometer -Ok to resume Eliquis -DVT prophylaxis Eliquis Physician Veterinary Technician Instructor note has been reviewed by physician. Signing provider agrees with the documented findings, assessment, and plan of care. Objective - Vital Signs Vital signs: Vital Signs Temp 97.9 F 07/11/23 06:44 Pulse 65 07/11/23 06:44 Resp 19 07/11/23 06:44 BP 151/90 07/11/23 06:44 Pulse Ox 94 L 07/11/23 06:44 FiO2 92 07/03/23 17:39 Intake & Output 07/10/23 07/11/23 07/11/23 18:59 06:59 18:59 Intake Total 150 650 Balance 150 650 Intake: IV 50 650 Fluconazole in NaCl,Iso- 50 50 Osm 100 mg In Saline 1 50ml.bag @ 50 mls/hr IVPB DAILY@1600 [facility] Rx#: [id number] Sodium Chloride 0.9% 1, 600 000 ml @ 75 mls/hr IV . [id number] [facility] Rx#:[id number] Intake, IV Titration 100 Amount Piperacillin-Tazobactam 3 100 .375 gm In Sodium Chloride 0.9% 100 ml @ 25 mls/hr IVPB Q8HR [facility] Rx# :[id number] Other: Voiding Method Toilet # Voids 2 ABP, PAP, CO, CI - Last Documented Arterial Blood Pressure 160/70 - Labs CBC & Chem 7: 07/11/23 06:26 07/06/23 06:51 Labs: Abnormal Lab Results - Last 24 Hours (Table) 07/10/23 07/10/23 07/10/23 Range/Units 09:00 16:45 19:33 RBC 3.43 L (4.10-5.20) X 10*6/uL Hgb 9.6 L (12.0-15.0) g/dL Hct 30.8 L (37.2-46.3) % MCHC 31.2 L (32.0-37.0) g/dL POC Glucose (mg/dL) 142 H 173 H (70-110) mg/dL 07/11/23 07/11/23 Range/Units 05:17 11:14 RBC (4.10-5.20) X 10*6/uL Hgb (12.0-15.0) g/dL Hct (37.2-46.3) % MCHC (32.0-37.0) g/dL POC Glucose (mg/dL) 133 H 127 H (70-110) mg/dL
[2023-07-11] MEDS: PANTOPRAZOLE 40 MG TABLET PO SCH (16:48)
[2023-07-11] MEDS: FLUCONAZOLE IN NACL,ISO-OSM 100 MG in SALINE 1 50ML.BAG IVPB SCH (16:48)
[2023-07-11 17:04] LABS: Glucose,Whole Blood 159 mg/dL (70-110)
[2023-07-11] MEDS ORDERED: TEMAZEPAM 7.5 MG CAP PO PRN (19:25)
[2023-07-11 20:03] LABS: Glucose,Whole Blood 213 mg/dL (70-110)
[2023-07-11] MEDS: APIXABAN 5 MG TAB PO SCH (21:05)
[2023-07-12] MEDS: HYDROcodone/APAP 10-325MG 1 EACH TAB PO PRN ×3 (04:26→12:48)
[2023-07-12 06:13] LABS: Glucose,Whole Blood 107 mg/dL (70-110)
[2023-07-12] MEDS: INSULIN ASPART (NovoLOG) 100 UNIT/ML VIAL SQ SCH ×2 (06:23→11:32)
[2023-07-12] MEDS: INSULIN DETEMIR (LEVEMIR) 100 UNIT/ML SYR SQ SCH (06:43)
[2023-07-12] MEDS: PANTOPRAZOLE 40 MG TABLET PO SCH (06:43)
[2023-07-12] MEDS ORDERED: PIPERACILLIN-TAZOBACTAM 3.375 GM in SODIUM CHLORIDE 0.9% 100 ML IVPB SCH (08:00)
[2023-07-12 08:18] VITALS: RESP 20
[2023-07-12] MEDS: IBUPROFEN 600 MG TAB PO SCH (08:42)
[2023-07-12] MEDS: APIXABAN 5 MG TAB PO SCH (08:42)
[2023-07-12] MEDS: lisinopriL 10 MG TAB PO SCH (08:42)
[2023-07-12] MEDS: cloNIDine 0.3 MG/24HR PATCH TRANSDERM SCH (08:43)
[2023-07-12] MEDS ORDERED: FOLIC ACID 1 MG TAB PO SCH (11:00)
[2023-07-12 11:04] LABS: Basophils % (A) 0 %; Eosinophils # (A) 0.2 k/uL (0-0.7); Eosinophils % (A) 3 %; HCT 32.9 % (34.0-46.0); HGB 10.7 gm/dL (11.4-16.0); Hypochromasia Moderate; Lymphocytes # (A) 0.8 k/uL (1.0-4.8); Lymphocytes % (A) 12 %; MCH 28.9 pg (25.0-35.0); MCHC 32.6 g/dL (31.0-37.0); MCV 88.4 fL (80.0-100.0); Mean Platelet Volume 8.6; Monocytes # (A) 0.4 k/uL (0-1.0); Monocytes % (A) 6 %; Neutrophils # (A) 5.3 k/uL (1.3-7.7); Neutrophils % (A) 75 %; Platelet Count 312 k/uL (150-450); Poikilocytosis Slight; RBC 3.72 m/uL (3.80-5.40); RDW 14.7 % (11.5-15.5)
[2023-07-12 11:13] LABS: Glucose,Whole Blood 106 mg/dL (70-110)
--- NOTE | 2023-07-12 11:40 | P.DS ---
Providers Date of admission: 06/18/23 05:40 Expected date of discharge: 07/12/23 Attending physician: Haroon Lewis Consults: 06/18/23 09:25 Consult Physician Routine Consulting Provider: Danna Saeed Consult Reason/Comments: Medical management Do you want consulting provider notified?: Yes 06/24/23 02:27 Consult Physician Stat Consulting Provider: Ramesh Jasmine Consult Reason/Comments: ICU management Do you want consulting provider notified?: Already Contacted Primary care physician: Susie Redding Hospital Course: Discharge Diagnosis 1. Feculent peritonitis secondary to anastomotic leak status post reopening of laparotomy, lysis of adhesions. Takedown of colorectal anastomosis with conversion to Ly's procedure and colostomy 2. Diverticulitis and bilateral ovarian cysts Hospital course This is a 53-year-old female known history of diverticulitis. She is status post lower anterior resection on 06/18/2023. She then developed an anastomotic leak and required to be taken back to the OR on 06/24/2023. She is status post takedown of colorectal anastomosis with conversion to Ly's procedure and colostomy with close distal pouch for feculent peritonitis secondary to anastomotic leak. Patient had a prolonged hospitalization. She is tolerating diet. Her ostomy is functioning. She is afebrile. She has been up and ambulating. Her pain is controlled. She'll be discharged to continue oral antibiotics for 10 more days. She also be discharged with a wound VAC that is applied to the midline of the abdomen. Patient is stable for discharge. Please refer to chart for any further details. Physician Research Physicist note has been reviewed by physician. Signing provider agrees with the documented findings, assessment, and plan of care. Patient Condition at Discharge: Stable Plan - Discharge Summary Discharge Rx Participant: No New Discharge Prescriptions: New Ibuprofen [Motrin] 600 mg PO Q8HR PRN #30 tab PRN Reason: Pain HYDROcodone/APAP 10-325MG [[place] 10-325] 1 each PO Q6HR PRN #12 tab PRN Reason: Pain metroNIDAZOLE [Flagyl] 500 mg PO TID 10 Days #30 tab Levofloxacin [Levaquin] 500 mg PO DAILY 10 Days #10 tab Continue Gabapentin 800 mg PO TID Apixaban [Eliquis] 5 mg PO BID traZODone HCL 150 mg PO HS PRN PRN Reason: Insomnia Rosuvastatin Calcium [Crestor] 40 mg PO DAILY busPIRone HCL 15 mg PO TID Pioglitazone [Actos] 15 mg PO DAILY Dapagliflozin Propanediol [Farxiga] 5 mg PO DAILY Potassium Chloride ER [K-Dur 20] 20 meq PO BID-W/MEALS Insulin Glargine,Hum.rec.anlog [Lantus Solostar Pen] 36 unit SQ DAILY Famotidine 40 mg PO HS lisinopriL [Zestril] 30 mg PO DAILY Discontinued metroNIDAZOLE [Flagyl] 500 mg PO TID 4 Days #12 tab No Action hydroCHLOROthiazide [Hydrodiuril] 12.5 mg PO DAILY cloNIDine HCL [Catapres] 0.05 mg PO BID Discharge Medication List Apixaban [Eliquis] 5 mg PO BID 08/04/21 [History] Famotidine 40 mg PO HS 08/04/21 [History] Gabapentin 800 mg PO TID 08/04/21 [History] Insulin Glargine,Hum.rec.anlog [Lantus Solostar Pen] 36 unit SQ DAILY 08/04/21 [History] Potassium Chloride ER [K-Dur 20] 20 meq PO BID-W/MEALS 08/04/21 [History] hydroCHLOROthiazide [Hydrodiuril] 12.5 mg PO DAILY 08/04/21 [History] Dapagliflozin Propanediol [Farxiga] 5 mg PO DAILY 03/14/23 [History] Pioglitazone [Actos] 15 mg PO DAILY 03/14/23 [History] Rosuvastatin Calcium [Crestor] 40 mg PO DAILY 03/14/23 [History] busPIRone HCL 15 mg PO TID 03/14/23 [History] cloNIDine HCL [Catapres] 0.05 mg PO BID 03/14/23 [History] lisinopriL [Zestril] 30 mg PO DAILY 03/14/23 [History] traZODone HCL 150 mg PO HS PRN 03/14/23 [History] HYDROcodone/APAP 10-325MG [[place] 10-325] 1 each PO Q6HR PRN #12 tab 07/12/23 [Rx] Ibuprofen [Motrin] 600 mg PO Q8HR PRN #30 tab 07/12/23 [Rx] Levofloxacin [Levaquin] 500 mg PO DAILY 10 Days #10 tab 07/12/23 [Rx] metroNIDAZOLE [Flagyl] 500 mg PO TID 10 Days #30 tab 07/12/23 [Rx] Follow up Appointment(s)/Referral(s): Susie Redding MD [Primary Care Provider] - 1 Week [facility] [NON-STAFF] - [address] [facility], [NON-STAFF] - As Needed Haroon Lewis MD [STAFF PHYSICIAN] - 1 Week Activity/Diet/Wound Care/Special Instructions: No driving while taking [place] No lifting over 10 pounds You may shower. No soaking or tub baths for 2 weeks Very light activity until you are reevaluated at your follow up appointment with your surgeon Apply wound vac to open abdominal incision using black granulofoam. Change every Sunday, , and Sunday. Use fast, continuous pressure at 125mmHG. Keep a log of JG drain output and bring with you to your follow-up appointment Milk/strip drains 2-3 times a day Discharge Disposition: TRANSFER TO SNF/ECF
[2023-07-12 13:30] LABS: ALT 16 U/L (4-34); AST 21 U/L (14-36); African American GFR (CKD) >90 (>60 ml/min/1.73 sqM); Albumin 3.2 g/dL (3.5-5.0); Albumin/Globulin Ratio 0.8; Alkaline Phosphatase 136 U/L (38-126); Anion Gap 13 mmol/L; Blood Urea Nitrogen 15 mg/dL (7-17); Carbon Dioxide 18 mmol/L (22-30); Chloride 108 mmol/L (98-107); Globulin 3.8 g/dL; Glucose 127 mg/dL (74-99); Non-African American GFR(CKD) >90 (>60 ml/min/1.73 sqM); Potassium 3.9 mmol/L (3.5-5.1); Sodium 139 mmol/L (137-145); Total Bilirubin 0.9 mg/dL (0.2-1.3)
[2023-07-12 14:03] VITALS: BP 135/83; PULSE 68; TEMP 97.7
--- NOTE | 2023-07-12 22:00 | P.PN ---
Subjective this is a pleasant 53 years old femalepresents with diverticulitis and bilateral ovarian cyst. She status post low anterior resection with bilateral ovarian cystectomy and partial omentectomy. sHe tolerates diet well, abdominal pain is minimal. She had little watery bowel movement yesterday. Eliquis was started hemodynamically stable and labs were reviewed 07/06/2023 Patient initially presents with acute diverticulitis status post low anterior resection of the colon status post leakage from the anastomosis site and she had another surgery which is converted into Ly procedure on 06/23, she was intubated in the ICU and after stabilization she was transferred to the general medical floor, I'm seeing the patient today on the fourth floor, she is sitting up in bed, awake alert, little lethargic, family at bedside. Patient has colostomy back in the left lower quadrant with light brown stool mostly formed. With open wound nearby. Dressing in a Place. Surgical team are following. CAT scan of the abdomen and pelvis done yesterday showing air and debris within lower incision of the lower pelvis suspicious for abscesses. JG drain in place. Patient was able to tolerate diet today per family. She has some pain at surgical sites which is expected. No other complaint. She remains on Zosyn and Diflucan. Hemoglobin 10.5. Plan for possible subacute rehab next week if she keeps improvement 07/07/2023 patient tolerates diet well including this morning Her abdominal pain better JG drain has little yellow discharge No other new complaints. She is hemodynamically stable. Remains on Zosyn and Diflucan. Patient was on Eliquis prior to this Hospitalization for her history of DVT. Currently on subcu heparin. We'll discuss with surgery team wants to resume anticoagulation 07/08/2023 Patient still complaining of from postsurgical abdominal pain which is expected She tolerates diet and its 25-50% with supplemental KUB showed nonobstructive gas pattern Patient encouraged to use Vivian 7.5 mg rather than Dilaudid, patient currently focusing on getting Dilaudid only, we are going to lower the dose 0.5 down to 0.25 mg every 3 hours Light brown stool, formed in the colostomy bag She is on Zosyn and Diflucan 07/09/2023 Patient is COMFORTABLE with mild distress due to abdominal pain but looks well- controlled similar to yesterday evening underwent exploratory Dilaudid dose down to 0.25 mg She tolerates diet well and she is eating and 50-100% Her abdominal pain and tenderness looks the same which is expected postoperatively However patient has some purulent discharge from the lower edge of the wound although dressing was CHANGED yesterday Case discussed with bed side nurse 07/10/2023 no new complaints Patient still have some pain at the surgical sites which is expected however Motrin and ibuprofen was increased and provided for the patient with 1-2 days of monitoring Wound VAC to be placed by wound care team. She is on Zosyn and Diflucan 06/10/2023 Patient looks more comfortable today, she rates her pain in the abdomen at 7/[address] She tolerates diet well. We will discuss with surgery team went to resume Eliquis, patient states that she has history of deep venous thrombosis in both legs at 2 different time. Currently remains on subcu heparin Also she is on performing an Vivian 10 for pain control and she is on Zosyn and Diflucan. 06/11/2023 Patient today he is doing well, she states she feels better, she tolerates diet Hemodynamically stable, afebrile Labs reviewed and it looks stable, hemoglobin is better than yesterday 9.6 up to 10.7. Glucose controlled Bleeding after starting Eliquis. Patient continue with antibiotics with Zosyn and Diflucan with a plan to continue with oral antibiotics upon discharge for surgery team. Patient feels improved and she can be discharged soon. Patient looks medically stable Objective - Vital Signs Vital signs: Vital Signs Temp 97.3 F L 07/12/23 07:17 Pulse 56 L 07/12/23 07:17 Resp 20 07/12/23 07:17 BP 141/69 07/12/23 07:17 Pulse Ox 97 07/12/23 07:17 FiO2 92 07/03/23 17:39 Intake & Output 07/11/23 07/12/23 07/12/23 18:59 06:59 18:59 Intake Total 650 Output Total 10 Balance 650 -10 Intake: IV 650 Fluconazole in NaCl,Iso- 50 Osm 100 mg In Saline 1 50ml.bag @ 50 mls/hr IVPB DAILY@1600 [facility] Rx#: [id number] Sodium Chloride 0.9% 1, 600 000 ml @ 75 mls/hr IV . [id number] [facility] Rx#:[id number] Output: Drainage 10 Left Lower Abdomen 10 Other: Voiding Method Toilet # Voids 2 ABP, PAP, CO, CI - Last Documented Arterial Blood Pressure 160/70 - Exam -GENERAL: The patient is intubated and sedated HEENT: Pupils are round and equally reacting to light. EOMI. No scleral icterus. No conjunctival pallor. Normocephalic, atraumatic. No pharyngeal erythema. No thyromegaly. CARDIOVASCULAR: S1 and S2 present. No murmurs, rubs, or gallops. PULMONARY: Chest is clear to auscultation, no wheezing , no crackles. -ABDOMEN: Soft, periumbilical tenderness , no guarding or rebound tenderness, distended, normoactive bowel sounds. No palpable organomegaly. surgical wound is healing. Colostomy bag in a Place MUSCULOSKELETAL: No joint swelling or deformity. EXTREMITIES: No cyanosis, clubbing, or pedal edema. NEUROLOGICAL: Gross neurological examination did not reveal any focal deficits. SKIN: No rashes. no petechiae. - Labs CBC & Chem 7: 07/12/23 10:19 07/12/23 12:51 Labs: Abnormal Lab Results - Last 24 Hours (Table) 07/11/23 07/11/23 07/11/23 Range/Units 06:26 11:14 17:02 RBC 3.29 L (4.10-5.20) X 10*6/uL Hgb 9.3 L (12.0-15.0) g/dL Hct 30.5 L (37.2-46.3) % MCHC 30.5 L (32.0-37.0) g/dL POC Glucose (mg/dL) 127 H 159 H (70-110) mg/dL 07/11/23 Range/Units 20:02 RBC (4.10-5.20) X 10*6/uL Hgb (12.0-15.0) g/dL Hct (37.2-46.3) % MCHC (32.0-37.0) g/dL POC Glucose (mg/dL) 213 H (70-110) mg/dL Assessment and Plan Assessment: Acute abdomen secondary to breakdown of anastomosis status post takedown of colorectal anastomosis with conversion to Ly's procedure (06/23) septic shock secondary to intra-abdominal infection, improving Elevated lactic acid Acute hypoxic respiratory failure secondary to above requiring intubation and mechanical ventilation acute diverticulitis status post low anterior resection of the colon (06/18) Ovarian cyst status post bilateral ovarian cystectomy Worsening pneumo-peritoneam requiring exploratory laparotomy and bowel resection history of DVT Diabetes mellitus Hypertension Hyperlipidemia History of CVA Plan: Continue Zosyn. Continue with Diflucan switched to oral antibiotics upon discharge Encourage diet Pulmonary team following closely Surgery primary team also followed closely Eliquis started, hemoglobin stable, vital stable Labs and medication were reviewed.. Continue same treatment. Continue with symptomatic treatment. Resume home medication. Monitor labs and vitals. DVT and GI prophylaxis. Further recommendations as per clinical course of the patient DVT prophylaxis: Eliquis GI Prophylaxis:Changed to Protonix Prognosis is guarded Stable medically We recommend patient follow up with PCP in one week after discharge and she was instructed with the same and she agrees Thank you for consulting us
== END 2023-07-12 15:50 | DRG 329 ==
LOC: 2ORMAIN 05:40 → 4SSUR 12:51 → 2SICU 06-24 02:41 → 4SSUR 06-30 17:09
PROVIDERS: ADMIT Surgery; ATTEND Surgery
PROC: 0D1B0Z4 Bypass Ileum to Cutaneous, Open Approach (ICD-10-PCS; 2023-06-18)
PROC: 0UB20ZZ Excision of Bilateral Ovaries, Open Approach (ICD-10-PCS; 2023-06-18)
PROC: 0DNN0ZZ Release Sigmoid Colon, Open Approach (ICD-10-PCS; 2023-06-18)
PROC: 0DBP0ZZ Excision of Rectum, Open Approach (ICD-10-PCS; 2023-06-18)
PROC: 0DBN0ZZ Excision of Sigmoid Colon, Open Approach (ICD-10-PCS; 2023-06-18)
PROC: 0DBU0ZZ Excision of Omentum, Open Approach (ICD-10-PCS; principal; 2023-06-18 07:30)
PROC: 5A1945Z Respiratory Ventilation, 24-96 Consecutive Hours (ICD-10-PCS; 2023-06-24)
PROC: 0BH17EZ Insertion of Endotracheal Airway into Trachea, Via Natural or Artificial Opening (ICD-10-PCS; 2023-06-24)
PROC: 30233N1 Transfusion of Nonautologous Red Blood Cells into Peripheral Vein, Percutaneous Approach (ICD-10-PCS; 2023-06-24)
PROC: 3E0336Z Introduction of Nutritional Substance into Peripheral Vein, Percutaneous Approach (ICD-10-PCS; 2023-06-27)
PROC: 5A09557 Assistance with Respiratory Ventilation, Greater than 96 Consecutive Hours, Continuous Positive Airway Pressure (ICD-10-PCS; 2023-06-27)
PROC: 05HC33Z Insertion of Infusion Device into Left Basilic Vein, Percutaneous Approach (ICD-10-PCS; 2023-07-03)
DX: K57.32 Diverticulitis of large intestine without perforation or abscess without bleeding (principal); A40.1 Sepsis due to streptococcus, group B; J96.01 Acute respiratory failure with hypoxia; K65.8 Other peritonitis; R65.21 Severe sepsis with septic shock; A41.51 Sepsis due to Escherichia coli [E. coli]; A41.52 Sepsis due to Pseudomonas; B37.7 Candidal sepsis; T81.43XA Infection following a procedure, organ and space surgical site, initial encounter; K91.89 Other postprocedural complications and disorders of digestive system; J98.11 Atelectasis; L98.495 Non-pressure chronic ulcer of skin of other sites with muscle involvement without evidence of necrosis; R18.8 Other ascites; T81.44XA Sepsis following a procedure, initial encounter; E11.622 Type 2 diabetes mellitus with other skin ulcer; E11.649 Type 2 diabetes mellitus with hypoglycemia without coma; E11.65 Type 2 diabetes mellitus with hyperglycemia; E78.5 Hyperlipidemia, unspecified; E87.6 Hypokalemia; E87.70 Fluid overload, unspecified; F17.290 Nicotine dependence, other tobacco product, uncomplicated; G47.00 Insomnia, unspecified; I10 Essential (primary) hypertension; I69.320 Aphasia following cerebral infarction; N83.201 Unspecified ovarian cyst, right side; N83.202 Unspecified ovarian cyst, left side; Z79.01 Long term (current) use of anticoagulants; Z79.84 Long term (current) use of oral hypoglycemic drugs; Z79.4 Long term (current) use of insulin; Z79.899 Other long term (current) drug therapy; Z86.718 Personal history of other venous thrombosis and embolism; Y84.8 Other medical procedures as the cause of abnormal reaction of the patient, or of later complication, without mention of misadventure at the time of the procedure; R00.1 Bradycardia, unspecified; T44.8X5A Adverse effect of centrally-acting and adrenergic-neuron-blocking agents, initial encounter; X58.XXXA Exposure to other specified factors, initial encounter
CPT/HCPCS: 36410; 64488; 64999; 71045; 74018; 74022; 74178; 76937; 80048; 80051; 80053; 81025; 82330; 82607; 82728; 82746; 82805; 83036; 83540; 83550; 83605; 83735; 84100; 84132; 84478; 85025; 85610; 85730; 86850; 86900; 86901; 87070; 87075; 87077; 87186; 87205; 88305; 88307; 94002; 94003; 94640; 94660; 94760

== ENCOUNTER 2023-08-07 20:05 | Observation (INO) | payer MEDICARE, OTHER ==
--- NOTE | 2023-08-07 20:15 | ED ---
Abdominal Pain HPI - General Chief Complaint: Abdominal Pain Stated Complaint: Post Op Issues Time Seen by Provider: 08/07/23 20:15 Source: patient Mode of arrival: EMS Limitations: language barrier, physical limitation - History of Present Illness Initial Comments: 53-year-old female presenting with chief complaint of leaking ostomy and wound VAC. It appears that the patient had a bowel resection on 06/18 with a lengthy postoperative hospital stay. She was recently discharged from [facility]. Patient is a poor historian - Related Data Home Medications Medication Instructions Recorded Confirmed Apixaban [Eliquis] 5 mg PO BID 08/04/21 08/07/23 Famotidine 40 mg PO HS 08/04/21 08/07/23 Insulin Glargine,Hum.rec.anlog 36 unit SQ DAILY 08/04/21 08/07/23 [Lantus Solostar Pen] Potassium Chloride ER [K-Dur 20] 20 meq PO BID-W/MEALS 08/04/21 08/07/23 hydroCHLOROthiazide [Hydrodiuril] 12.5 mg PO DAILY 08/04/21 08/07/23 Dapagliflozin Propanediol [Farxiga] 5 mg PO DAILY 03/14/23 08/07/23 Pioglitazone [Actos] 15 mg PO DAILY 03/14/23 08/07/23 busPIRone HCL 15 mg PO TID 03/14/23 08/07/23 cloNIDine HCL [Catapres] 0.05 mg PO BID 03/14/23 08/07/23 lisinopriL [Zestril] 30 mg PO DAILY 03/14/23 08/07/23 traZODone HCL 150 mg PO HS PRN 03/14/23 08/07/23 Atorvastatin [Lipitor] 80 mg PO DAILY 08/07/23 08/07/23 HYDROcodone/APAP 10-325MG [[place] 1 tab PO Q6HR PRN 08/07/23 08/07/23 10-325] Previous Rx's Medication Instructions Recorded Gabapentin 800 mg PO TID 3 Days #9 tab 07/12/23 Ibuprofen [Motrin] 600 mg PO Q8HR PRN #30 tab 07/12/23 Allergies Allergy/AdvReac Type Severity Reaction Status Date / Time No Known Allergies Allergy Verified 08/07/23 20:14 Review of Systems ROS Statement: Those systems with pertinent positive or pertinent negative responses have been documented in the HPI. ROS Other: All systems not noted in ROS Statement are negative. Past Medical History Past Medical History: CVA/TIA, Diabetes Mellitus, Hyperlipidemia, Hypertension Additional Past Medical History / Comment(s): expressive aphasia difficult to communicate, cva 2019 History of Any Multi-Drug Resistant Organisms: MRSA Date of last positivie culture/infection: 2016 MDRO Source:: ARM Past Surgical History: Bowel Resection Additional Past Surgical History / Comment(s): IVC FILTER 2013. ileostomy. wound vac Past Anesthesia/Blood Transfusion Reactions: No Reported Reaction Past Psychological History: Depression Smoking Status: Current every day smoker Past Alcohol Use History: None Reported Past Drug Use History: None Reported, Marijuana General Exam - General Exam Comments Initial Comments: Visual Physical Exam Vital signs reviewed General: Well-appearing, nontoxic, no acute distress. Head: Normocephalic, atraumatic Eyes: PERRLA, EOMI ENT: Airway patent Chest: Nonlabored breathing Skin: No visual rash, normal skin tone Neuro: Alert and oriented 3 Musculoskeletal: No gross abnormalities Limitations: language barrier, physical limitation Course Vital Signs 08/07/23 08/08/23 08/08/23 20:10 00:14 01:41 Temperature 97.6 F Pulse Rate 110 H 99 70 Pulse Rate [ Pulse Oximetery ] Respiratory 22 17 17 Rate Blood Pressure 136/95 122/92 114/80 Blood Pressure [Left Arm] O2 Sat by Pulse 97 96 98 Oximetry 08/08/23 08/08/23 08/08/23 02:57 04:00 06:09 Temperature 97.7 F Pulse Rate 74 60 64 Pulse Rate [ Pulse Oximetery ] Respiratory 17 18 19 Rate Blood Pressure 127/79 127/79 122/96 Blood Pressure [Left Arm] O2 Sat by Pulse 97 97 99 Oximetry 08/08/23 08/08/23 08/08/23 07:36 10:45 17:00 Temperature Pulse Rate 70 79 Pulse Rate [ Pulse Oximetery ] Respiratory 18 18 16 Rate Blood Pressure 120/73 126/83 108/77 Blood Pressure [Left Arm] O2 Sat by Pulse 98 100 99 Oximetry 08/08/23 20:00 Temperature 98.1 F Pulse Rate Pulse Rate [ 76 Pulse Oximetery ] Respiratory Rate Blood Pressure Blood Pressure 103/69 [Left Arm] O2 Sat by Pulse 97 Oximetry Medical Decision Making - Lab Data Result diagrams: 08/08/23 06:56 08/08/23 06:56 Disposition Clinical Impression: Abdominal pain, Anastomotic leak of intestine Disposition: ADMITTED IP TO THIS HOSP Condition: Fair
[2023-08-07] MEDS ORDERED: ONDANSETRON 4 MG/2 ML VIAL IVP PRN (22:26)
[2023-08-07] MEDS ORDERED: SODIUM CHLORIDE 0.9% 1,000 ML IV STA (22:26)
[2023-08-07] MEDS ORDERED: NALOXONE 0.4 MG/ML 1 ML VIAL IV PRN (22:26)
[2023-08-07] MEDS ORDERED: HYDROmorphone 1 MG/ML 1 ML SYRINGE IVP STA (22:26)
[2023-08-07] MEDS ORDERED: SODIUM CHLORIDE 0.9% 500 ML 500 ML IV STA (22:26)
[2023-08-07] MEDS ORDERED: PANTOPRAZOLE 40 MG/10 ML VIAL IVP STA (22:26)
[2023-08-07] MEDS ORDERED: ONDANSETRON 4 MG/2 ML VIAL IVP STA (22:26)
--- NOTE | 2023-08-07 22:35 | ED ---
Abdominal Pain HPI - General Chief Complaint: Abdominal Pain Stated Complaint: Post Op Issues Time Seen by Provider: 08/07/23 20:15 Source: patient, RN notes reviewed, old records reviewed Mode of arrival: EMS Limitations: language barrier, physical limitation - History of Present Illness Initial Comments: This is a 53-year-old female to the emergency department for evaluation a abdominal pain. Patient currently has significant abdominal pain with ostomy 2, patient had nonhealing site with wound VAC, patient is currently covered in feces significant amount of stool all over her abdomen and into both of her legs groin area, patient herself is a poor strain secondary to history of CVA 9 difficulty with communication MD Complaint: abdominal pain, other -: days(s) Location: diffuse, epigastric, suprapubic Radiation: epigastric, suprapubic Migration to: no migration Severity: moderate Severity scale (1-10): 7 Quality: stabbing Consistency: constant Improves With: nothing Worsens With: nothing Associated Symptoms: nausea, constipation Treatments Prior to Arrival: other (0) - Related Data Home Medications Medication Instructions Recorded Confirmed Apixaban [Eliquis] 5 mg PO BID 08/04/21 08/07/23 Famotidine 40 mg PO HS 08/04/21 08/07/23 Insulin Glargine,Hum.rec.anlog 36 unit SQ DAILY 08/04/21 08/07/23 [Lantus Solostar Pen] Potassium Chloride ER [K-Dur 20] 20 meq PO BID-W/MEALS 08/04/21 08/07/23 hydroCHLOROthiazide [Hydrodiuril] 12.5 mg PO DAILY 08/04/21 08/07/23 Dapagliflozin Propanediol [Farxiga] 5 mg PO DAILY 03/14/23 08/07/23 Pioglitazone [Actos] 15 mg PO DAILY 03/14/23 08/07/23 busPIRone HCL 15 mg PO TID 03/14/23 08/07/23 cloNIDine HCL [Catapres] 0.05 mg PO BID 03/14/23 08/07/23 lisinopriL [Zestril] 30 mg PO DAILY 03/14/23 08/07/23 traZODone HCL 150 mg PO HS PRN 03/14/23 08/07/23 Atorvastatin [Lipitor] 80 mg PO DAILY 08/07/23 08/07/23 HYDROcodone/APAP 10-325MG [[place] 1 tab PO Q6HR PRN 08/07/23 08/07/23 10-325] Previous Rx's Medication Instructions Recorded Gabapentin 800 mg PO TID 3 Days #9 tab 07/12/23 Ibuprofen [Motrin] 600 mg PO Q8HR PRN #30 tab 07/12/23 Allergies Allergy/AdvReac Type Severity Reaction Status Date / Time No Known Allergies Allergy Verified 08/07/23 20:14 Review of Systems ROS Statement: Those systems with pertinent positive or pertinent negative responses have been documented in the HPI. ROS Other: All systems not noted in ROS Statement are negative. Past Medical History Past Medical History: CVA/TIA, Diabetes Mellitus, Hyperlipidemia, Hypertension Additional Past Medical History / Comment(s): expressive aphasia difficult to communicate, cva 2020 History of Any Multi-Drug Resistant Organisms: MRSA Date of last positivie culture/infection: 2016 MDRO Source:: ARM Past Surgical History: Bowel Resection Additional Past Surgical History / Comment(s): IVC FILTER 2013. ileostomy. wound vac Past Anesthesia/Blood Transfusion Reactions: No Reported Reaction Past Psychological History: Depression Smoking Status: Current every day smoker Past Alcohol Use History: None Reported Past Drug Use History: None Reported, Marijuana General Exam Limitations: language barrier, physical limitation General appearance: alert, in no apparent distress Head exam: Present: atraumatic, normocephalic, normal inspection Eye exam: Present: normal appearance, PERRL, EOMI. Absent: scleral icterus, conjunctival injection, periorbital swelling ENT exam: Present: normal exam, mucous membranes moist Neck exam: Present: normal inspection. Absent: tenderness, meningismus, lymphadenopathy Respiratory exam: Present: normal lung sounds bilaterally. Absent: respiratory distress, wheezes, rales, rhonchi, stridor Cardiovascular Exam: Present: regular rate, normal rhythm, normal heart sounds. Absent: systolic murmur, diastolic murmur, rubs, gallop, clicks GI/Abdominal exam: Present: soft, normal bowel sounds. Absent: distended, tenderness, guarding, rebound, rigid Extremities exam: Present: normal inspection, full ROM, normal capillary refill. Absent: tenderness, pedal edema, joint swelling, calf tenderness Back exam: Present: normal inspection Neurological exam: Present: alert, oriented X3, CN II-XII intact Psychiatric exam: Present: normal affect, normal mood Skin exam: Present: warm, dry, intact, normal color. Absent: rash Course Vital Signs 08/07/23 08/08/23 08/08/23 20:10 00:14 01:41 Temperature 97.6 F Pulse Rate 110 H 99 70 Pulse Rate [ Pulse Oximetery ] Respiratory 22 17 17 Rate Blood Pressure 136/95 122/92 114/80 Blood Pressure [Left Arm] O2 Sat by Pulse 97 96 98 Oximetry 08/08/23 08/08/23 08/08/23 02:57 04:00 06:09 Temperature 97.7 F Pulse Rate 74 60 64 Pulse Rate [ Pulse Oximetery ] Respiratory 17 18 19 Rate Blood Pressure 127/79 127/79 122/96 Blood Pressure [Left Arm] O2 Sat by Pulse 97 97 99 Oximetry 08/08/23 08/08/23 08/08/23 07:36 10:45 17:00 Temperature Pulse Rate 70 79 Pulse Rate [ Pulse Oximetery ] Respiratory 18 18 16 Rate Blood Pressure 120/73 126/83 108/77 Blood Pressure [Left Arm] O2 Sat by Pulse 98 100 99 Oximetry 08/08/23 20:00 Temperature 98.1 F Pulse Rate Pulse Rate [ 76 Pulse Oximetery ] Respiratory Rate Blood Pressure Blood Pressure 103/69 [Left Arm] O2 Sat by Pulse 97 Oximetry - Reevaluation(s) Reevaluation #1: 08/07/23 22:33 Medical record is reviewed Reevaluation #2: 08/07/23 22:34 Patient symptoms are improved 08/07/23 22:34 Patient's wound care site is clean Reevaluation #3: 08/07/23 22:34 Patient informed results questions answered Reevaluation #4: 08/07/23 22:34 Was pt. sent in by a medical professional or institution (, PA, AGRICULTURAL ENGINEERING TECHNOLOGIST, urgent care, hospital, or shelter...) When possible be specific @ -no Did you speak to anyone other than the patient for history (EMS, parent, family, police, friend...)? What history was obtained from this source @ -no Did you review nursing and triage notes (agree or disagree)? Why? @ -agree Are old charts reviewed (outside hosp., previous admission, EMS record, old EKG, old radiological studies, urgent care reports/EKG's, shelter records)? Report findings @ -yes Differential Diagnosis (chest pain, altered mental status, abdominal pain women, abdominal pain men, vaginal bleeding, weakness, fever, dyspnea, syncope, headache, dizziness, GI bleed, back pain, seizure, CVA, palpatations, mental health, musculoskeletal)? @ -prior EKG interpreted by me (3pts min.). @ -no X-rays interpreted by me (1pt min.). @ -no CT interpreted by me (1pt min.). @ -no U/S interpreted by me (1pt. min.). @ -no What testing was considered but not performed or refused? (CT, X-rays, U/S, labs)? Why? @ -none What meds were considered but not given or refused? Why? @ -none Did you discuss the management of the patient with other professionals (professionals i.e. , PA, AGRICULTURAL ENGINEERING TECHNOLOGIST, lab, RT, psych nurse, child protective services social worker, motor vehicle inspector, teacher, special technical operations officer, manager rn case)? Give summary @ -no Was smoking cessation discussed for >3mins.? @ -no Was critical care preformed (if so, how long)? @ -no Were there social determinants of health that impacted care today? How? (Homelessness, low income, unemployed, alcoholism, drug addiction, transportation, low edu. Level, literacy, decrease access to med. care, assisted, rehab)? @ -none Was there de-escalation of care discussed even if they declined (Discuss DNR or withdrawal of care, Hospice)? DNR status @ -no What co-morbidities impacted this encounter? (DM, HTN, Smoking, COPD, CAD, Cancer, CVA, ARF, Chemo, Hep., AIDS, mental health diagnosis, sleep apnea, morbid obesity)? @ -none Was patient admitted / discharged? Hospital course, mention meds given and route, prescriptions, significant lab abnormalities, going to OR and other pertinent info. @ - 53 female to the emergency department for evaluation of failed back, patient does have significant ostomy site female with a significant amount of feces all over her abdomen. Patient will be admitted for surgical evaluation management wound care Admitted Undiagnosed new problem with uncertain prognosis? @ -no Drug Therapy requiring intensive monitoring for toxicity (Heparin, Nitro, Insulin, Cardizem)? @ -no Were any procedures done? @ -no Diagnosis/symptom? @ -Wound care, ostomy care Acute, or Chronic, or Acute on Chronic? @ -Acute Uncomplicated (without systemic symptoms) or Complicated (systemic symptoms)? @ -Complicated Side effects of treatment? @ -no Exacerbation, Progression, or Severe Exacerbation? @ -exacerbation Poses a threat to life or bodily function? How? (Chest pain, [place], ME, pneumonia, PE, COPD, DKA, ARF, appy, cholecystitis, CVA, Diverticulitis, Homicidal, Suicidal, threat to staff... and all critical care pts) @ -yes with significant surgical changes Reevaluation #5: 08/07/23 22:34 Differential Abdominal Pain Women: Appendicitis, Cholecystitis, diverticulosis, ischemic bowel, pancreatitis, hepatitis, UTI, gastroenteritis, AAA, incarcerated hernia, bowel obstruction, constipation, inflammatory bowel, hepatitis, peptic ulcer disease, splenic infarction, perforated viscus, vulvitis, ovarian torsion, PID, kidney stone, placenta abruption, this is not meant to be an all-inclusive list - Consultations Consultation #1: (Dr. Blood regarding admission he agrees Medical Decision Making - Medical Decision Making 53 female to the emergency department for evaluation of failed back, patient does have significant ostomy site female with a significant amount of feces all over her abdomen. Patient will be admitted for surgical evaluation management wound care - Lab Data Result diagrams: 08/10/23 06:43 08/10/23 06:43 Disposition Clinical Impression: Abdominal pain, Anastomotic leak of intestine Disposition[facility] Condition: Fair Is patient prescribed a controlled substance at d/c from ED?: No Time of Disposition: 23:00
[2023-08-07 23:41] LABS: Anisocytosis Slight; Basophils # (A) 0.1 k/uL (0-0.2); Basophils % (A) 1 %; Eosinophils # (A) 0.2 k/uL (0-0.7); Eosinophils % (A) 2 %; HCT 38.8 % (34.0-46.0); HGB 12.7 gm/dL (11.4-16.0); Hypochromasia Slight; Lymphocytes # (A) 1.6 k/uL (1.0-4.8); Lymphocytes % (A) 20 %; MCH 28.8 pg (25.0-35.0); MCHC 32.7 g/dL (31.0-37.0); MCV 88.2 fL (80.0-100.0); Mean Platelet Volume 7.8; Monocytes # (A) 0.5 k/uL (0-1.0); Monocytes % (A) 6 %; Neutrophils # (A) 5.4 k/uL (1.3-7.7); Neutrophils % (A) 69 %; Platelet Count 251 k/uL (150-450); RDW 16.4 % (11.5-15.5); WBC 7.9 k/uL (3.8-10.6)
[2023-08-07 23:50] LABS: ALT 18 U/L (4-34); AST 29 U/L (14-36); African American GFR (CKD) >90 (>60 ml/min/1.73 sqM); Albumin 4.5 g/dL (3.5-5.0); Alkaline Phosphatase 142 U/L (38-126); Amylase 62 U/L (30-110); Anion Gap 13 mmol/L; Blood Urea Nitrogen 15 mg/dL (7-17); Calcium 9.3 mg/dL (8.4-10.2); Carbon Dioxide 22 mmol/L (22-30); Chloride 102 mmol/L (98-107); Glucose 132 mg/dL (74-99); Lipase 145 U/L (23-300); Non-African American GFR(CKD) >90 (>60 ml/min/1.73 sqM); Potassium 4.2 mmol/L (3.5-5.1); Sodium 137 mmol/L (137-145); Total Bilirubin 1.4 mg/dL (0.2-1.3); Total Protein 8.3 g/dL (6.3-8.2)
[2023-08-08] MEDS: MORPHINE SULFATE 4 MG/ML SYRINGE IV PRN ×5 (02:55→21:22)
[2023-08-08 07:31] LABS: Anisocytosis Slight; Basophils % (A) 1 %; Eosinophils # (A) 0.2 k/uL (0-0.7); Eosinophils % (A) 3 %; HCT 34.9 % (34.0-46.0); HGB 11.2 gm/dL (11.4-16.0); Hypochromasia Moderate; Lymphocytes % (A) 19 %; MCH 28.8 pg (25.0-35.0); Mean Platelet Volume 8.7; Monocytes # (A) 0.4 k/uL (0-1.0); Monocytes % (A) 7 %; Neutrophils # (A) 3.5 k/uL (1.3-7.7); Neutrophils % (A) 68 %; Platelet Count 184 k/uL (150-450); RBC 3.88 m/uL (3.80-5.40); RDW 16.3 % (11.5-15.5); WBC 5.1 k/uL (3.8-10.6)
[2023-08-08 07:49] LABS: ALT 13 U/L (4-34); AST 22 U/L (14-36); African American GFR (CKD) >90 (>60 ml/min/1.73 sqM); Albumin 3.5 g/dL (3.5-5.0); Alkaline Phosphatase 121 U/L (38-126); Anion Gap 10 mmol/L; Blood Urea Nitrogen 12 mg/dL (7-17); Calcium 8.6 mg/dL (8.4-10.2); Carbon Dioxide 20 mmol/L (22-30); Chloride 107 mmol/L (98-107); Glucose 119 mg/dL (74-99); Magnesium 1.7 mg/dL (1.6-2.3); Non-African American GFR(CKD) >90 (>60 ml/min/1.73 sqM); Phosphorus 3.5 mg/dL (2.5-4.5); Potassium 3.7 mmol/L (3.5-5.1); Sodium 137 mmol/L (137-145); Total Bilirubin 1.1 mg/dL (0.2-1.3); Total Protein 6.6 g/dL (6.3-8.2)
[2023-08-08] MEDS ORDERED: DEXTROSE 50% SYRINGE 50 ML IVP PRN ×2 (09:41)
--- NOTE | 2023-08-08 10:45 | CT ---
EXAMINATION TYPE: CT abdomen pelvis w con DATE OF EXAM: 08/08/2023 COMPARISON: 07/05/2023 HISTORY: Pain, ileostomy and wound vac issues CT DLP: 823 mGycm CONTRAST: CT scan of the abdomen and pelvis is performed without Oral Contrast and with IV Contrast, patient in jected with 100 mL of Isovue 300. FINDINGS: LUNG BASES-: No visible nodule. No infiltrate. Discoid atelectasis right lower lobe. LIVER/GB: No calcified gallstones. No space occupying hepatic lesion. Biliary tree is of normal ca liber. PANCREAS: No inflammation. No distinct mass. SPLEEN: No splenic enlargement. No lesion seen. ADRENALS: No nodule. No thickening. KIDNEYS/BLADDER: No hydronephrosis. No nephrolithiasis. No distinct renal mass. Urinary bladder g rossly unremarkable. BOWEL: Normal appendix. Mild small bowel wall thickening. No obstructive changes seen. No evidence fo r free air. GENITAL ORGANS: There is a new cystic mass in the region of the left adnexa measuring 3.5 x 3.7 cm w ith surrounding bowel. This could reflect development of interval cyst however tubo-ovarian abscess i s not excluded. Ultrasound correlation advised. Small cystic area in the region of the right fundal o stium. Prominent pelvic varices seen. LYMPH NODES: No greater than 1cm abdominal or pelvic lymph nodes are appreciated. AORTA: No significant abnormality. OSSEOUS STRUCTURES: No significant abnormality is seen. OTHER: Collection midline incision site with fluid and air measuring 5.1 cm in length by 1.2 x 1.6 cm extending from the umbilicus caudally. Infected seroma is not excluded. Stranding at the ileostomy s ite. IMPRESSION: 1. New cystic mass left adnexa could reflect interval development of an ovarian cyst or tubo-ovarian abscess is not excluded. Ultrasound correlation advised. 2. Mild stranding about the ileostomy site. Mild small bowel wall thickening without obstructive godinez ge. 3. Midline incision collection as discussed.
--- NOTE | 2023-08-08 11:07 | P.CONS ---
History of Present Illness - Reason for Consult Consult date: 08/08/23 wound care - History of Present Illness This is a 53-year-old patient known to the wound care center with past medical history significant for CVA, diabetes and diverticulitis. She was recently a resident at [facility] but was discharged. Patient had a negative pressure wound VAC in place and was tolerating well. Patient is seen today in the emergency room due to issue with her ostomy resulting in stool in her wound. Patient had multiple open ulcerations to the midline incision. At this time the only ulceration that is open as the distal portion measuring approximately 6 x 4 x 3 cm. ulceration shows fat layer exposure with with granulation seen throughout the wound bed and minimal Slough and nonviable tissue. The periwound does show maceration. Review Of Systems: Constitutional: No fever, no chills, no night sweats. No weight change. No weakness, fatigue or lethargy. No daytime sleepiness. Integumentary:reports wounds, no lesions. No rash or pruritus. No unusual bruising. No change in hair or nails. Physical exam: General Appearance: Alert, cooperative, no distress, appears stated age. Skin: See HPI all other Skin color, texture, tugor normal, no rashes or lesions. Neurologic: Alert oriented x3 Assessment: 1. Nonhealing ulceration of abdomen with muscle exposure without necrosis 2. Diabetes with ulceration 3. CVA Plan: 1. Apply absorptive silver, saline moistened gauze and border foam to the ulceration. Apply triad to the area wound to help with excoriation. Change the dressing Sunday and Sunday. We will hold the negative pressure wound VAC for at least one week. We will discuss with the patient at her next wound care visit about reapplying the negative pressure wound VAC. Patient is agreeable to this plan of care. 2. Patient's next appointment at the wound care center is August 13 at 9:30 Thank you for the consultation any questions please contact the wound care center DNP note has been reviewed and discussed with Dr. Reddy and the impression and plan of care has been directed as dictated. Past Medical History Past Medical History: CVA/TIA, Diabetes Mellitus, Hyperlipidemia, Hypertension Additional Past Medical History / Comment(s): expressive aphasia difficult to communicate, cva 2020 History of Any Multi-Drug Resistant Organisms: MRSA Year Discovered:: 2016 MDRO Source:: ARM Past Surgical History: Bowel Resection Additional Past Surgical History / Comment(s): IVC FILTER 2014. ileostomy. wound vac Past Anesthesia/Blood Transfusion Reactions: No Reported Reaction Past Psychological History: Depression Smoking Status: Current every day smoker Past Alcohol Use History: None Reported Past Drug Use History: None Reported, Marijuana Medications and Allergies Home Medications Medication Instructions Recorded Confirmed Type Apixaban [Eliquis] 5 mg PO BID 08/04/21 08/07/23 History Famotidine 40 mg PO HS 08/04/21 08/07/23 History Insulin Glargine,Hum.rec.anlog 36 unit SQ DAILY 08/04/21 08/07/23 History [Lantus Solostar Pen] Potassium Chloride ER [K-Dur 20] 20 meq PO BID-W/MEALS 08/04/21 08/07/23 History hydroCHLOROthiazide [Hydrodiuril] 12.5 mg PO DAILY 08/04/21 08/07/23 History Dapagliflozin Propanediol [Farxiga] 5 mg PO DAILY 03/14/23 08/07/23 History Pioglitazone [Actos] 15 mg PO DAILY 03/14/23 08/07/23 History busPIRone HCL 15 mg PO TID 03/14/23 08/07/23 History cloNIDine HCL [Catapres] 0.05 mg PO BID 03/14/23 08/07/23 History lisinopriL [Zestril] 30 mg PO DAILY 03/14/23 08/07/23 History traZODone HCL 150 mg PO HS PRN 03/14/23 08/07/23 History Gabapentin 800 mg PO TID 3 Days #9 tab 07/12/23 08/07/23 Rx Ibuprofen [Motrin] 600 mg PO Q8HR PRN #30 tab 07/12/23 08/07/23 Rx Atorvastatin [Lipitor] 80 mg PO DAILY 08/07/23 08/07/23 History HYDROcodone/APAP 10-325MG [[place] 1 tab PO Q6HR PRN 08/07/23 08/07/23 History 10-325] Allergies Allergy/AdvReac Type Severity Reaction Status Date / Time No Known Allergies Allergy Verified 08/07/23 20:14 Physical Exam Vitals: Vital Signs Temp Pulse Resp BP Pulse Ox 08/08/23 10:45 79 18 126/83 100 08/08/23 07:36 70 18 120/73 98 08/08/23 06:09 97.7 F 64 19 122/96 99 08/08/23 04:00 60 18 127/79 97 08/08/23 02:57 74 17 127/79 97 08/08/23 01:41 70 17 114/80 98 08/08/23 00:14 99 17 122/92 96 08/07/23 20:10 97.6 F 110 H 22 136/95 97 Intake and Output 08/07/23 08/08/23 08/08/23 22:59 06:59 14:59 Other: Weight 68.039 kg Results CBC & Chem 7: 08/08/23 06:56 08/08/23 06:56 Labs: Abnormal Lab Results - Last 24 Hours (Table) 08/07/23 08/07/23 08/08/23 Range/Units 23:33 23:33 06:56 Hgb 11.2 L (11.4-16.0) gm/dL RDW 16.4 H 16.3 H (11.5-15.5) % Carbon Dioxide (22-30) mmol/L Creatinine 0.44 L (0.52-1.04) mg/dL Glucose 132 H (74-99) mg/dL Total Bilirubin 1.4 H (0.2-1.3) mg/dL Alkaline Phosphatase 142 H (38-126) U/L Total Protein 8.3 H (6.3-8.2) g/dL 08/08/23 Range/Units 06:56 Hgb (11.4-16.0) gm/dL RDW (11.5-15.5) % Carbon Dioxide 20 L (22-30) mmol/L Creatinine 0.44 L (0.52-1.04) mg/dL Glucose 119 H (74-99) mg/dL Total Bilirubin (0.2-1.3) mg/dL Alkaline Phosphatase (38-126) U/L Total Protein (6.3-8.2) g/dL Assessment and Plan (1) Non-pressure chronic ulcer of skin of other sites with muscle involvement without evidence of necrosis Current Visit: No Status: Acute Code(s): L98.495 - NON-PRS [facility] SKIN/ OTH SITE WITH MSL INVL W/O EVD OF NECR SNOMED Code(s): 29222950 (2) Type 2 diabetes mellitus with other skin ulcer Current Visit: No Status: Acute Code(s): E11.622 - TYPE 2 DIABETES MELLITUS WITH OTHER SKIN ULCER; L98.499 - NON-PRESSURE CHRONIC ULCER OF SKIN OF SITES W UNSP SEVERITY SNOMED Code(s): 895210855 (3) CVA (cerebral vascular accident) Current Visit: No Status: Acute Code(s): I63.9 - CEREBRAL INFARCTION, UNSPECIFIED SNOMED Code(s): 811226432
[2023-08-08] MEDS: lisinopriL 10 MG TAB PO SCH (11:56)
[2023-08-08] MEDS: busPIRone HCl 5 MG TAB PO SCH ×3 (11:56→20:43)
[2023-08-08] MEDS: cloNIDine HCL 0.1 MG TAB PO SCH ×2 (11:56→20:43)
[2023-08-08] MEDS: ATORVASTATIN 80 MG TAB PO SCH (11:56)
[2023-08-08] MEDS: POTASSIUM CHLORIDE ER 20 MEQ TAB.ER PO SCH ×2 (11:56→17:06)
[2023-08-08] MEDS: PIOGLITAZONE 15 MG TAB PO SCH (11:57)
[2023-08-08] MEDS: DAPAGLIFLOZIN PROPANEDIOL 5 MG TABLET PO SCH (11:57)
[2023-08-08] MEDS: HYDROPHILIC CREAM 180 GM TUBE TOPICAL SCH (11:57)
[2023-08-08] MEDS: hydroCHLOROthiazide 12.5 MG CAP PO SCH (11:57)
[2023-08-08 12:11] LABS: Glucose,Whole Blood 124 mg/dL (70-110)
[2023-08-08] MEDS: INSULIN ASPART (NovoLOG) 100 UNIT/ML VIAL SQ SCH ×3 (12:20→21:21)
--- NOTE | 2023-08-08 13:11 | P.HPIM ---
History of Present Illness H&P Date: 08/08/23 History of present illness; patient 53-year-old lady with past medical history significant for hypertension, diabetes mellitus, hyperlipidemia, recent bowel surgery requiring bowel resection who presented to the ER for abdominal pain and ostomy site malfunction. Patient recently had extensive stay in the hospital secondary to acute diverticulitis requiring low anterior resection of the colon followed by leakage from the anastomosis site and required another surgery which was converted into Ly procedure on 06/23. Patient was recently discharged from [facility] rehab. Ever since discharge patient was having issues with her ostomy site, patient was having abdominal pain around the ostomy site, there was leaking from the ostomy and patient was covered in fecal material over her abdominal and the groin area. Patient had a wound VAC in place. Because of t hese symptoms, patient was brought to the ER Initial lab work done in the ER showed WBC 7.9, hemoglobin 12.7, platelet count 251, sodium 137, potassium 4.2, BUNs 15, creatinine 0.44, glucose 132, total bili 1.4, patient was admitted to medicine service REVIEW OF SYSTEMS: CONSTITUTIONAL: No fever, no malaise, no fatigue. HEENT: No recent visual problems or hearing problems. Denied any sore throat. CARDIOVASCULAR: No chest pain, orthopnea, PND, no palpitations, no syncope. PULMONARY: No shortness of breath, no cough, no hemoptysis. GASTROINTESTINAL: No diarrhea, no nausea, no vomiting, no abdominal pain. NEUROLOGICAL: No headaches, no weakness, no numbness. HEMATOLOGICAL: Denies any bleeding or petechiae. GENITOURINARY: Denies any burning micturition, frequency, or urgency. MUSCULOSKELETAL/RHEUMATOLOGICAL: Denies any joint pain, swelling, or any muscle pain. ENDOCRINE: Denies any polyuria or polydipsia. The rest of the 14-point review of systems is negative. PHYSICAL EXAMINATION: GENERAL: The patient is alert and oriented x3, not in any acute distress. Well developed, well nourished. HEENT: Pupils are round and equally reacting to light. EOMI. No scleral icterus. No conjunctival pallor. Normocephalic, atraumatic. No pharyngeal erythema. No t hyromegaly. CARDIOVASCULAR: S1 and S2 present. No murmurs, rubs, or gallops. PULMONARY: Chest is clear to auscultation, no wheezing or crackles. ABDOMEN: laparotomy surgical incision seen. Slight drainage noticeable around the incision site. Ostomy seen MUSCULOSKELETAL: No joint swelling or deformity. EXTREMITIES: No cyanosis, clubbing, or pedal edema. NEUROLOGICAL: Gross neurological examination did not reveal any focal deficits. SKIN: No rashes. Assessment and plan Colostomy malfunction History of recent acute diverticulitis status post low anterior resection of the colon status post leakage from the anastomosis site followed by Ly procedure on 06/23 Bilateral Ovarian cyst status post bilateral ovarian cystectomy History of pneumo-peritoneam requiring exploratory laparotomy and bowel resection history of DVT Hypertension Insulin-dependent diabetes mellitus Hyperlipidemia Depression Monitor vital signs Monitor CBC Monitor CMP Continue telemetry monitoring Continue ostomy care Continue pain management Ordered CT done and pelvis with contrast Monitor blood sugar levels, continue sliding scale insulin, resume Lantus. Continue IV fluids Resume home meds Surgery consulted Wound care consulted Labs and medication were reviewed.. Continue same treatment. Continue with symptomatic treatment. Resume home medication. Monitor labs and vitals. DVT and GI prophylaxis. Further recommendations as per clinical course of the patient Dictation was produced using [employer] dictation software. please excuse any grammatical, word or spelling errors. Past Medical History Past Medical History: CVA/TIA, Diabetes Mellitus, Hyperlipidemia, Hypertension Additional Past Medical History / Comment(s): expressive aphasia difficult to communicate, cva 2019 History of Any Multi-Drug Resistant Organisms: MRSA Date of last positivie culture/infection: 2016 MDRO Source:: ARM Past Surgical History: Bowel Resection Additional Past Surgical History / Comment(s): IVC FILTER 2013. ileostomy. wound vac Past Anesthesia/Blood Transfusion Reactions: No Reported Reaction Past Psychological History: Depression Smoking Status: Current every day smoker Past Alcohol Use History: None Reported Past Drug Use History: None Reported, Marijuana Medications and Allergies Home Medications Medication Instructions Recorded Confirmed Type Apixaban [Eliquis] 5 mg PO BID 08/04/21 08/07/23 History Famotidine 40 mg PO HS 08/04/21 08/07/23 History Insulin Glargine,Hum.rec.anlog 36 unit SQ DAILY 08/04/21 08/07/23 History [Lantus Solostar Pen] Potassium Chloride ER [K-Dur 20] 20 meq PO BID-W/MEALS 08/04/21 08/07/23 History hydroCHLOROthiazide [Hydrodiuril] 12.5 mg PO DAILY 08/04/21 08/07/23 History Dapagliflozin Propanediol [Farxiga] 5 mg PO DAILY 03/14/23 08/07/23 History Pioglitazone [Actos] 15 mg PO DAILY 03/14/23 08/07/23 History busPIRone HCL 15 mg PO TID 03/14/23 08/07/23 History cloNIDine HCL [Catapres] 0.05 mg PO BID 03/14/23 08/07/23 History lisinopriL [Zestril] 30 mg PO DAILY 03/14/23 08/07/23 History traZODone HCL 150 mg PO HS PRN 03/14/23 08/07/23 History Gabapentin 800 mg PO TID 3 Days #9 tab 07/12/23 08/07/23 Rx Ibuprofen [Motrin] 600 mg PO Q8HR PRN #30 tab 07/12/23 08/07/23 Rx Atorvastatin [Lipitor] 80 mg PO DAILY 08/07/23 08/07/23 History HYDROcodone/APAP 10-325MG [[place] 1 tab PO Q6HR PRN 08/07/23 08/07/23 History 10-325] Allergies Allergy/AdvReac Type Severity Reaction Status Date / Time No Known Allergies Allergy Verified 08/07/23 20:14 Physical Exam Vitals: Vital Signs Temp Pulse Resp BP Pulse Ox 08/08/23 07:36 70 18 120/73 98 08/08/23 06:09 97.7 F 64 19 122/96 99 08/08/23 04:00 60 18 127/79 97 08/08/23 02:57 74 17 127/79 97 08/08/23 01:41 70 17 114/80 98 08/08/23 00:14 99 17 122/92 96 08/07/23 20:10 97.6 F 110 H 22 136/95 97 Intake and Output 08/07/23 08/08/23 08/08/23 22:59 06:59 14:59 Other: Weight 68.039 kg Results CBC & Chem 7: 08/08/23 06:56 08/08/23 06:56 Labs: Abnormal Lab Results - Last 24 Hours (Table) 08/07/23 08/07/23 08/08/23 Range/Units 23:33 23:33 06:56 Hgb 11.2 L (11.4-16.0) gm/dL RDW 16.4 H 16.3 H (11.5-15.5) % Carbon Dioxide (22-30) mmol/L Creatinine 0.44 L (0.52-1.04) mg/dL Glucose 132 H (74-99) mg/dL Total Bilirubin 1.4 H (0.2-1.3) mg/dL Alkaline Phosphatase 142 H (38-126) U/L Total Protein 8.3 H (6.3-8.2) g/dL 08/08/23 Range/Units 06:56 Hgb (11.4-16.0) gm/dL RDW (11.5-15.5) % Carbon Dioxide 20 L (22-30) mmol/L Creatinine 0.44 L (0.52-1.04) mg/dL Glucose 119 H (74-99) mg/dL Total Bilirubin (0.2-1.3) mg/dL Alkaline Phosphatase (38-126) U/L Total Protein (6.3-8.2) g/dL
[2023-08-08 13:24] LABS: Appearance,Urine Slightly Cloudy (Clear); Bilirubin,Urine Negative (Negative); Blood,Urine Large (Negative); Color,Urine Dark Orange; Glucose,Urine (UA) Negative (Negative); Ketones,Urine 1+ (Negative); Leukocyte Esterase,Urine Negative (Negative); Nitrite,Urine Negative (Negative); Protein,Urine Trace (Negative); Urobilinogen,Urine 0.2 mg/dL (<2.0)
[2023-08-08 13:28] LABS: Bacteria,Urine Rare /hpf; Mucus,Urine Moderate /hpf; RBC,Urine >182 /hpf (0-5); Squamous Epithelial Cell,Urine 6 /hpf (0-4); WBC,Urine 10 /hpf (0-5)
--- NOTE | 2023-08-08 14:02 | P.GSCN ---
History of Present Illness Consult date: 08/08/23 History of present illness: CHIEF COMPLAINT: Leaking from ostomy HISTORY OF PRESENT ILLNESS: This is a 53-year-old female, with history of diverticulitis and status post lower anterior resection on 06/18/2023. She developed an anastomotic leak and required to be taken back to the OR on 06/24/2023 for takedown of colorectal anastomosis with conversion to Ly's procedure and colostomy placement. Patient did have a prolonged hospitalization at that time. She was discharged to rehab with a wound VAC. Patient reports being home since Sunday. She reports that the ostomy bag has been leaking. She did not have the ostomy supplies to change it. She had stool over the abdomen according to the ER. Patient is a poor historian due to her stroke deficit. And it also appears that the wound VAC has not been functioning properly. She does complain of abdominal pain at the incision site. Denies any fever chills or sweats. Patient seen and examined with Dr. Lewis PAST MEDICAL HISTORY: CVA, diabetes, hyperlipidemia, hypertension, diverticulosis PAST SURGICAL HISTORY: As stated above and IVC filter MEDICATIONS: See below ALLERGIES: See below SOCIAL HISTORY: No illicit drug use. REVIEW OF SYSTEMS: CONSTITUTIONAL: Denies fever or chills. HEENT: Denies blurred vision, vision changes, or eye pain. Denies hemoptysis CARDIOVASCULAR: Denies chest pain or pressure. RESPIRATORY: No shortness of breath. GASTROINTESTINAL: See HPI for pertinent findings HEMATOLOGIC: Denies bleeding disorders. GENITOURINARY: Denies any blood in urine or increased urinary frequency. SKIN: Denies pruitis. Denies rash. PHYSICAL EXAM: VITAL SIGNS: Reviewed GENERAL: Well-developed in no acute distress. HEENT: No sclera icterus. Extraocular movements grossly intact. Moist buccal mucosa. Head is atraumatic, normocephalic. No nasal drainage. ABDOMEN: Soft. Nondistended. Wound VAC removed. Midline incisional wound is clean and healing. Ostomy with liquidy stool. NEUROLOGIC: Alert and oriented. Cranial nerves II through XII grossly intact. LABORATORY DATA: WBC 5.1 Hgb 11.2 platelets 184 Sodium is 137 potassium 3.7 creatinine 0.44 IMAGING: Computed tomography scan abdomen and pelvis reports collection midline incision site with fluid and air. Infected seroma is not excluded. New cystic mass left adnexa could reflect interval development of an ovarian cyst or tubo-ovarian abscess not excluded. Mild stranding about the ileostomy site. Mild small bowel wall thickening without obstructive change. ASSESSMENT: 1. Abdominal incisional wound 2. Malfunctioning colostomy bag PLAN: -Colostomy bag appliance changed in the ER -Wound VAC removed. Wet-to-dry dressing applied. -Consult wound care service for reapplication of wound VAC -Advance diet to regular -Consult shoe caser to arrange for home care needs, ostomy supplies and wound VAC outpatient -Patient can be discharged from surgical standpoint when medically cleared Physician Twist Tester note has been reviewed by physician. Signing provider agrees with the documented findings, assessment, and plan of care. Past Medical History Past Medical History: CVA/TIA, Diabetes Mellitus, Hyperlipidemia, Hypertension Additional Past Medical History / Comment(s): expressive aphasia difficult to communicate, cva 2019 History of Any Multi-Drug Resistant Organisms: MRSA Year Discovered:: 2016 MDRO Source:: ARM Past Surgical History: Bowel Resection Additional Past Surgical History / Comment(s): IVC FILTER 2013. ileostomy. wound vac Past Anesthesia/Blood Transfusion Reactions: No Reported Reaction Past Psychological History: Depression Smoking Status: Current every day smoker Past Alcohol Use History: None Reported Past Drug Use History: None Reported, Marijuana Medications and Allergies Home Medications Medication Instructions Recorded Confirmed Type Apixaban [Eliquis] 5 mg PO BID 08/04/21 08/07/23 History Famotidine 40 mg PO HS 08/04/21 08/07/23 History Insulin Glargine,Hum.rec.anlog 36 unit SQ DAILY 08/04/21 08/07/23 History [Lantus Solostar Pen] Potassium Chloride ER [K-Dur 20] 20 meq PO BID-W/MEALS 08/04/21 08/07/23 History hydroCHLOROthiazide [Hydrodiuril] 12.5 mg PO DAILY 08/04/21 08/07/23 History Dapagliflozin Propanediol [Farxiga] 5 mg PO DAILY 03/14/23 08/07/23 History Pioglitazone [Actos] 15 mg PO DAILY 03/14/23 08/07/23 History busPIRone HCL 15 mg PO TID 03/14/23 08/07/23 History cloNIDine HCL [Catapres] 0.05 mg PO BID 03/14/23 08/07/23 History lisinopriL [Zestril] 30 mg PO DAILY 03/14/23 08/07/23 History traZODone HCL 150 mg PO HS PRN 03/14/23 08/07/23 History Gabapentin 800 mg PO TID 3 Days #9 tab 07/12/23 08/07/23 Rx Ibuprofen [Motrin] 600 mg PO Q8HR PRN #30 tab 07/12/23 08/07/23 Rx Atorvastatin [Lipitor] 80 mg PO DAILY 08/07/23 08/07/23 History HYDROcodone/APAP 10-325MG [[place] 1 tab PO Q6HR PRN 08/07/23 08/07/23 History 10-325] Allergies Allergy/AdvReac Type Severity Reaction Status Date / Time No Known Allergies Allergy Verified 08/07/23 20:14 Surgical - Exam Vital Signs Temp Pulse Resp BP Pulse Ox 97.6 F 110 H 22 136/95 97 08/07/23 20:10 08/07/23 20:10 08/07/23 20:10 08/07/23 20:10 08/07/23 20:10 Results - Labs 08/08/23 06:56 08/08/23 06:56 Abnormal Lab Results - Last 24 Hours (Table) 08/07/23 08/07/23 08/08/23 Range/Units 23:33 23:33 06:56 Hgb 11.2 L (11.4-16.0) gm/dL RDW 16.4 H 16.3 H (11.5-15.5) % Carbon Dioxide (22-30) mmol/L Creatinine 0.44 L (0.52-1.04) mg/dL Glucose 132 H (74-99) mg/dL Total Bilirubin 1.4 H (0.2-1.3) mg/dL Alkaline Phosphatase 142 H (38-126) U/L Total Protein 8.3 H (6.3-8.2) g/dL 08/08/23 Range/Units 06:56 Hgb (11.4-16.0) gm/dL RDW (11.5-15.5) % Carbon Dioxide 20 L (22-30) mmol/L Creatinine 0.44 L (0.52-1.04) mg/dL Glucose 119 H (74-99) mg/dL Total Bilirubin (0.2-1.3) mg/dL Alkaline Phosphatase (38-126) U/L Total Protein (6.3-8.2) g/dL Diabetes panel 08/07/23 08/08/23 Range/Units 23:33 06:56 Sodium 137 137 (137-145) mmol/L Potassium 4.2 3.7 (3.5-5.1) mmol/L Chloride 102 107 (98-107) mmol/L Carbon Dioxide 22 20 L (22-30) mmol/L BUN 15 12 (7-17) mg/dL Creatinine 0.44 L 0.44 L (0.52-1.04) mg/dL Glucose 132 H 119 H (74-99) mg/dL Calcium 9.3 8.6 (8.4-10.2) mg/dL AST 29 22 (14-36) U/L ALT 18 13 (4-34) U/L Alkaline Phosphatase 142 H 121 (38-126) U/L Total Protein 8.3 H 6.6 (6.3-8.2) g/dL Albumin 4.5 3.5 (3.5-5.0) g/dL Calcium panel 08/07/23 08/08/23 Range/Units 23:33 06:56 Calcium 9.3 8.6 (8.4-10.2) mg/dL Phosphorus 3.5 (2.5-4.5) mg/dL Albumin 4.5 3.5 (3.5-5.0) g/dL Pituitary panel 08/07/23 08/08/23 Range/Units 23:33 06:56 Sodium 137 137 (137-145) mmol/L Potassium 4.2 3.7 (3.5-5.1) mmol/L Chloride 102 107 (98-107) mmol/L Carbon Dioxide 22 20 L (22-30) mmol/L BUN 15 12 (7-17) mg/dL Creatinine 0.44 L 0.44 L (0.52-1.04) mg/dL Glucose 132 H 119 H (74-99) mg/dL Calcium 9.3 8.6 (8.4-10.2) mg/dL Adrenal panel 08/07/23 08/08/23 Range/Units 23:33 06:56 Sodium 137 137 (137-145) mmol/L Potassium 4.2 3.7 (3.5-5.1) mmol/L Chloride 102 107 (98-107) mmol/L Carbon Dioxide 22 20 L (22-30) mmol/L BUN 15 12 (7-17) mg/dL Creatinine 0.44 L 0.44 L (0.52-1.04) mg/dL Glucose 132 H 119 H (74-99) mg/dL Calcium 9.3 8.6 (8.4-10.2) mg/dL Total Bilirubin 1.4 H 1.1 (0.2-1.3) mg/dL AST 29 22 (14-36) U/L ALT 18 13 (4-34) U/L Alkaline Phosphatase 142 H 121 (38-126) U/L Total Protein 8.3 H 6.6 (6.3-8.2) g/dL Albumin 4.5 3.5 (3.5-5.0) g/dL
[2023-08-08] MEDS: GABAPENTIN 400 MG CAP PO SCH ×2 (16:04→20:43)
[2023-08-08 17:05] LABS: Glucose,Whole Blood 108 mg/dL (70-110)
[2023-08-08] MEDS: FAMOTIDINE 20 MG TAB PO SCH (20:43)
[2023-08-08 20:51] LABS: Glucose,Whole Blood 167 mg/dL (70-110)
[2023-08-08] MEDS ORDERED: traZODone HCL 50 MG TAB PO PRN (21:00)
--- NOTE | 2023-08-08 22:58 | P.CONS ---
History of Present Illness - Reason for Consult Consult date: 08/08/[address] scan abnormal Requesting physician: Brian Maddox - Chief Complaint Abdominal pain and leakage from the ostomy x 1 day - History of Present Illness Patient is a 53-year-old female with past medical history significant for diverticulitis recent admission to the hospital for low anterior resection on 06/18/2023 patient did develop anastomosis leak for the patient was taken back to the OR on 06/24/2023 for takedown of colorectal anastomosis and conversion to Ly's procedure and colostomy placement patient was subsequently discharged to the local jail for which the patient was discharged to her apartment on Sunday without any ostomy supplies patient subsequently did have a stool leaking from her ostomy with stool all over her abdomen and the patient was complaining some abdominal discomfort more of a dull aching pain mild to moderately tense without radiation patient also have a midline nonhealing wound with the same with the patient has been evaluated on presentation to the hospital patient was afebrile and no fever have been recorded subsequently patient was not tachycardic hypotensive or hypoxic patient did have white count of 5.1 creatinine 0.44 liver exams are normal did have a positive UA patient did have a CT of abdominal pelvis completed new cystic mass left adnexa could reflect interval development of an ovarian cyst or tubo- ovarian abscess mild stranding about the ileostomy site mild small bowel wall thickening without obstructive changes midline incision collection with concern for possible infected seroma patient has been admitted to the hospital infectious disease was consulted regarding this abnormal CT concerning for possible infected seroma patient did have a abdominal culture positive for E. coli Pseudomonas Streptococcus and anaerobes back on 06/24/2023 Review of Systems Positive point and negatives has been mentioned in the HPI, complete review of systems was performed and all other systems are negative Past Medical History Past Medical History: CVA/TIA, Diabetes Mellitus, Hyperlipidemia, Hypertension Additional Past Medical History / Comment(s): expressive aphasia difficult to communicate, cva 2019 History of Any Multi-Drug Resistant Organisms: MRSA Year Discovered:: 2017 MDRO Source:: ARM Past Surgical History: Bowel Resection Additional Past Surgical History / Comment(s): IVC FILTER 2013. ileostomy. wound vac Past Anesthesia/Blood Transfusion Reactions: No Reported Reaction Past Psychological History: Depression Smoking Status: Current every day smoker Past Alcohol Use History: None Reported Past Drug Use History: None Reported, Marijuana Medications and Allergies Home Medications Medication Instructions Recorded Confirmed Type Apixaban [Eliquis] 5 mg PO BID 08/04/21 08/07/23 History Famotidine 40 mg PO HS 08/04/21 08/07/23 History Insulin Glargine,Hum.rec.anlog 36 unit SQ DAILY 08/04/21 08/07/23 History [Lantus Solostar Pen] Potassium Chloride ER [K-Dur 20] 20 meq PO BID-W/MEALS 08/04/21 08/07/23 History hydroCHLOROthiazide [Hydrodiuril] 12.5 mg PO DAILY 08/04/21 08/07/23 History Dapagliflozin Propanediol [Farxiga] 5 mg PO DAILY 03/14/23 08/07/23 History Pioglitazone [Actos] 15 mg PO DAILY 03/14/23 08/07/23 History busPIRone HCL 15 mg PO TID 03/14/23 08/07/23 History cloNIDine HCL [Catapres] 0.05 mg PO BID 03/14/23 08/07/23 History lisinopriL [Zestril] 30 mg PO DAILY 03/14/23 08/07/23 History traZODone HCL 150 mg PO HS PRN 03/14/23 08/07/23 History Gabapentin 800 mg PO TID 3 Days #9 tab 07/12/23 08/07/23 Rx Ibuprofen [Motrin] 600 mg PO Q8HR PRN #30 tab 07/12/23 08/07/23 Rx Atorvastatin [Lipitor] 80 mg PO DAILY 08/07/23 08/07/23 History HYDROcodone/APAP 10-325MG [[place] 1 tab PO Q6HR PRN 08/07/23 08/07/23 History 10-325] Allergies Allergy/AdvReac Type Severity Reaction Status Date / Time No Known Allergies Allergy Verified 08/07/23 20:14 Physical Exam Vitals: Vital Signs Temp Pulse Resp BP Pulse Ox 08/08/23 10:45 79 18 126/83 100 08/08/23 07:36 70 18 120/73 98 08/08/23 06:09 97.7 F 64 19 122/96 99 08/08/23 04:00 60 18 127/79 97 08/08/23 02:57 74 17 127/79 97 08/08/23 01:41 70 17 114/80 98 08/08/23 00:14 99 17 122/92 96 08/07/23 20:10 97.6 F 110 H 22 136/95 97 Intake and Output 08/07/23 08/08/23 08/08/23 22:59 06:59 14:59 Other: Weight 68.039 kg GENERAL DESCRIPTION: Middle-aged female lying in bed, no distress. No tachypnea or accessory muscle of respiration use. HEENT: Shows Pallor , no scleral icterus. Oral mucous membrane is dry. No pharyngeal erythema or thrush NECK: Trachea central, no thyromegaly. LUNGS: Unlabored breathing. Clear to auscultation anteriorly. No wheeze or crackle. HEART: S1, S2, regular rate and rhythm. No loud murmur ABDOMEN: Soft, midline abdominal wound with no slough tissue no surrounding tenderness no significant tenderness EXTREMITIES: No edema of feet. SKIN: No rash, no masses palpable. NEUROLOGICAL: The patient is awake, alert, oriented x3, mood and affect normal. Results CBC & Chem 7: 08/10/23 06:43 08/10/23 06:43 Labs: Abnormal Lab Results - Last 24 Hours (Table) 08/07/23 08/07/23 08/08/23 Range/Units 23:33 23:33 06:56 Hgb 11.2 L (11.4-16.0) gm/dL RDW 16.4 H 16.3 H (11.5-15.5) % Carbon Dioxide (22-30) mmol/L Creatinine 0.44 L (0.52-1.04) mg/dL Glucose 132 H (74-99) mg/dL POC Glucose (mg/dL) (70-110) mg/dL Total Bilirubin 1.4 H (0.2-1.3) mg/dL Alkaline Phosphatase 142 H (38-126) U/L Total Protein 8.3 H (6.3-8.2) g/dL Urine Appearance (Clear) Urine Protein (Negative) Urine Ketones (Negative) Urine Blood (Negative) Urine RBC (0-5) /hpf Urine WBC (0-5) /hpf Ur Squamous Epith Cells (0-4) /hpf Urine Bacteria (None) /hpf Urine Mucus (None) /hpf 12/08/08/23 08/08/23 Range/Units 06:56 12:09 12:59 Hgb (11.4-16.0) gm/dL RDW (11.5-15.5) % Carbon Dioxide 20 L (22-30) mmol/L Creatinine 0.44 L (0.52-1.04) mg/dL Glucose 119 H (74-99) mg/dL POC Glucose (mg/dL) 124 H (70-110) mg/dL Total Bilirubin (0.2-1.3) mg/dL Alkaline Phosphatase (38-126) U/L Total Protein (6.3-8.2) g/dL Urine Appearance Slightly Cloudy H (Clear) Urine Protein Trace H (Negative) Urine Ketones 1+ H (Negative) Urine Blood Large H (Negative) Urine RBC >182 H (0-5) /hpf Urine WBC 10 H (0-5) /hpf Ur Squamous Epith Cells 6 H (0-4) /hpf Urine Bacteria Rare H (None) /hpf Urine Mucus Moderate H (None) /hpf Assessment and Plan (1) Abnormal CT of the abdomen Status: Acute Code(s): R93.5 - ABN FINDINGS ON DX IMAGING OF ABD REGIONS, INC RETROPERITON SNOMED Code(s): 08964155813830448 (2) Non-pressure chronic ulcer of skin of other sites with muscle involvement without evidence of necrosis Status: Acute Code(s): L98.495 - NON-PRS [facility] SKIN/ OTH SITE WITH MSL INVL W/O EVD OF NECR SNOMED Code(s): 47605141 (3) Seroma after procedure Status: Acute Code(s): KWT9136 - SNOMED Code(s): 202856353169177 Plan: 1patient with a recent admission to the hospital for low anterior resection did have anastomosis leak requiring takedown of the anastomosis and Ly's procedure now presenting to the hospital with stool leaking from her colostomy bag and did have abnormal CT concerning for possible incisional/abdominal wall fluid collection and the question of possible infected seroma patient however is not running any fever does not look toxic and white count is normal clinical suspicion low for infected seroma but not entirely excluded 2-recent abdominal culture positive for Pseudomonas E. coli anaerobes 3-we will review the CT with radiologist if the fluid can be CT-guided drain and sent for culture versus surgical drainage 4-we will check cultures and inflammatory markers 5-empirically covered with Zosyn while waiting for the workup to be completed We will follow on clinical condition and cultures to further adjust medication if needed Thank you for this consultation we will follow the patient along with you Dictation was produced using [employer] dictation software. please excuse any grammatical, word or spelling errors. Time with Patient: Greater than 30
[2023-08-09] MEDS: PIPERACILLIN-TAZOBACTAM 3.375 GM in SODIUM CHLORIDE 0.9% 100 ML IVPB SCH ×4 (00:38→23:40)
[2023-08-09] MEDS: HYDROcodone/APAP 10-325MG 1 EACH TAB PO PRN ×2 (03:43→16:24)
[2023-08-09 06:09] LABS: Glucose,Whole Blood 135 mg/dL (70-110)
[2023-08-09] MEDS: INSULIN ASPART (NovoLOG) 100 UNIT/ML VIAL SQ SCH ×4 (06:14→20:13)
[2023-08-09] MEDS ORDERED: SODIUM CHLORIDE 0.9% 1,000 ML IV SCH (06:45)
[2023-08-09] MEDS: lisinopriL 10 MG TAB PO SCH (06:48)
[2023-08-09] MEDS: cloNIDine HCL 0.1 MG TAB PO SCH ×2 (06:48→22:03)
[2023-08-09] MEDS: hydroCHLOROthiazide 12.5 MG CAP PO SCH (06:48)
[2023-08-09] MEDS: INSULIN DETEMIR (LEVEMIR) 100 UNIT/ML SYR SQ SCH (07:35)
[2023-08-09] MEDS: ATORVASTATIN 80 MG TAB PO SCH (07:41)
[2023-08-09] MEDS: busPIRone HCl 5 MG TAB PO SCH ×3 (07:41→20:13)
[2023-08-09] MEDS: GABAPENTIN 400 MG CAP PO SCH ×3 (07:41→20:13)
[2023-08-09] MEDS: DAPAGLIFLOZIN PROPANEDIOL 5 MG TABLET PO SCH (07:42)
[2023-08-09] MEDS: PIOGLITAZONE 15 MG TAB PO SCH (07:42)
[2023-08-09] MEDS: POTASSIUM CHLORIDE ER 20 MEQ TAB.ER PO SCH ×2 (07:42→17:16)
[2023-08-09] MEDS: MORPHINE SULFATE 4 MG/ML SYRINGE IV PRN ×4 (09:56→23:40)
[2023-08-09 11:20] LABS: Glucose,Whole Blood 118 mg/dL (70-110)
[2023-08-09] MEDS: HYDROPHILIC CREAM 180 GM TUBE TOPICAL SCH (12:57)
--- NOTE | 2023-08-09 14:16 | P.PN ---
Subjective Progress Note Date: 08/09/23 CHIEF COMPLAINT: Leaking from ostomy HISTORY OF PRESENT ILLNESS: Per nursing staff patient did have leaking from the colostomy bag again through the night. New apparatus has been applied. Patient has been also seen by wound care nurse and infectious disease. They're currently holding off on placing a wound VAC and doing local wound care until patient seen at wound care center in one week. Patient reports her pain is controlled. Denies any nausea or vomiting. Her ostomy stool output is more formed. Afebrile. Patient did have some hypotension earlier it is improved with IV fluids. They're old holding the BP meds. Last BP 108/71 WBC 5.1 PHYSICAL EXAM: VITAL SIGNS: Reviewed. GENERAL: Well-developed in no acute distress. HEENT: No sclera icterus. Extraocular movements grossly intact. Moist buccal mucosa. Head is atraumatic, normocephalic. ABDOMEN: Soft. Nondistended. Nontender. NEUROLOGIC: Alert and oriented. Cranial nerves II through XII grossly intact. ASSESSMENT: 1. Abdominal incisional wound 2. Malfunctioning colostomy bag 3. Possible seroma PLAN: -Patient can be discharged from surgical standpoint when medically stable -Continue antibiotics per infectious disease -Continue local wound care per wound care service instructions and follow-up outpatient for wound VAC placement -manager machine arranging home care needs and ostomy support Physician Templer Head note has been reviewed by physician. Signing provider agrees with the documented findings, assessment, and plan of care. Objective - Vital Signs Vital signs: Vital Signs Temp 97.9 F 08/09/23 08:00 Pulse 74 08/09/23 08:00 Resp 18 08/09/23 08:00 BP 108/71 08/09/23 09:55 Pulse Ox 97 08/09/23 08:00 FiO2 Intake & Output 08/08/23 08/09/23 08/09/23 18:59 06:59 18:59 Intake Total 118 Balance 118 Weight 68.039 kg Intake: Oral 118 Other: # Voids 2 - Labs CBC & Chem 7: 08/08/23 06:56 08/08/23 06:56 Labs: Abnormal Lab Results - Last 24 Hours (Table) 08/08/23 08/08/23 08/09/23 Range/Units 12:59 20:48 06:06 POC Glucose (mg/dL) 167 H 135 H (70-110) mg/dL Hemoglobin A1c (<=6.0) % Urine Appearance Slightly Cloudy H (Clear) Urine Protein Trace H (Negative) Urine Ketones 1+ H (Negative) Urine Blood Large H (Negative) Urine RBC >182 H (0-5) /hpf Urine WBC 10 H (0-5) /hpf Ur Squamous Epith Cells 6 H (0-4) /hpf Urine Bacteria Rare H (None) /hpf Urine Mucus Moderate H (None) /hpf 08/09/23 08/09/23 Range/Units 07:07 11:19 POC Glucose (mg/dL) 118 H (70-110) mg/dL Hemoglobin A1c 6.4 H (<=6.0) % Urine Appearance (Clear) Urine Protein (Negative) Urine Ketones (Negative) Urine Blood (Negative) Urine RBC (0-5) /hpf Urine WBC (0-5) /hpf Ur Squamous Epith Cells (0-4) /hpf Urine Bacteria (None) /hpf Urine Mucus (None) /hpf
--- NOTE | 2023-08-09 14:52 | P.PN ---
Subjective Progress Note Date: 08/09/23 patient 53-year-old lady with past medical history significant for hypertension, diabetes mellitus, hyperlipidemia, recent bowel surgery requiring bowel resection who presented to the ER for abdominal pain and ostomy site malfunction. Patient recently had extensive stay in the hospital secondary to acute diverticulitis requiring low anterior resection of the colon followed by leakage from the anastomosis site and required another surgery which was converted into Ly procedure on 06/23. Patient was recently discharged from [facility] rehab. Ever since discharge patient was having issues with her ostomy site, patient was having abdominal pain around the ostomy site, there was leaking from the ostomy and patient was covered in fecal material over her abdominal and the groin area. Patient had a wound VAC in place. Because of these symptoms, patient was brought to the ER Initial lab work done in the ER showed WBC 7.9, hemoglobin 12.7, platelet count 251, sodium 137, potassium 4.2, BUNs 15, creatinine 0.44, glucose 132, total bili 1.4, patient was admitted to medicine service REVIEW OF SYSTEMS: CONSTITUTIONAL: No fever, no malaise,. CARDIOVASCULAR: No chest pain, no palpitations, no syncope. PULMONARY: No shortness of breath, no cough, GASTROINTESTINAL: No diarrhea, no nausea, no vomiting, no abdominal pain. NEUROLOGICAL: No headaches, no weakness, PHYSICAL EXAMINATION: GENERAL: The patient is alert and oriented x3, not in any acute distress. Well developed, well nourished. HEENT: Pupils are round and equally reacting to light. EOMI. No scleral icterus. No conjunctival pallor. Normocephalic, atraumatic. No pharyngeal erythema. No thyromegaly. CARDIOVASCULAR: S1 and S2 present. No murmurs, rubs, or gallops. PULMONARY: Chest is clear to auscultation, no wheezing or crackles. ABDOMEN: laparotomy surgical incision seen. Ostomy seen MUSCULOSKELETAL: No joint swelling or deformity. EXTREMITIES: No cyanosis, clubbing, or pedal edema. NEUROLOGICAL: Gross neurological examination did not reveal any focal deficits. SKIN: No rashes. Assessment and plan Abdominal wall fluid collection Colostomy malfunction History of recent acute diverticulitis status post low anterior resection of the colon status post leakage from the anastomosis site followed by Ly procedure on 06/23 Bilateral Ovarian cyst status post bilateral ovarian cystectomy History of pneumo-peritoneam requiring exploratory laparotomy and bowel resection history of DVT Hypertension Insulin-dependent diabetes mellitus Hyperlipidemia Depression Monitor vital signs Monitor CBC Monitor CMP Continue ostomy care Continue pain management Monitor blood sugar levels, continue sliding scale insulin, Lantus. DC fluids Continue IV Zosyn ID following Gen. surgery evaluated the patient, recommended ostomy care and IV antibiotics per ID Labs and medication were reviewed.. Continue same treatment. Continue with symptomatic treatment. Resume home medication. Monitor labs and vitals. DVT and GI prophylaxis. Further recommendations as per clinical course of the patient Dictation was produced using [employer] dictation software. please excuse any grammatical, word or spelling errors. Objective - Vital Signs Vital signs: Vital Signs Temp 97.8 F 08/09/23 14:00 Pulse 75 08/09/23 14:00 Resp 19 08/09/23 14:00 BP 103/65 08/09/23 14:00 Pulse Ox 99 08/09/23 14:00 FiO2 Intake & Output 08/08/23 08/09/23 08/09/23 18:59 06:59 18:59 Intake Total 618 Balance 618 Weight 68.039 kg Intake: Oral 618 Other: # Voids 2 - Labs CBC & Chem 7: 08/08/23 06:56 08/08/23 06:56 Labs: Abnormal Lab Results - Last 24 Hours (Table) 08/08/23 08/09/23 08/09/23 Range/Units 20:48 06:06 07:07 POC Glucose (mg/dL) 167 H 135 H (70-110) mg/dL Hemoglobin A1c 6.4 H (<=6.0) % 08/09/23 Range/Units 11:19 POC Glucose (mg/dL) 118 H (70-110) mg/dL Hemoglobin A1c (<=6.0) %
--- NOTE | 2023-08-09 16:12 | P.PN ---
Subjective Progress Note Date: 08/09/23 Principal diagnosis: Reason for follow-up is abdominal CT and question of seroma versus an infected seroma Patient is a 53-year-old female with past medical history significant for diverticulitis recent admission to the hospital for low anterior resection on 06/18/2023 patient did develop anastomosis leak for the patient was taken back to the OR on 06/24/2023 for takedown of colorectal anastomosis and conversion to Ly's procedure and colostomy placement, presented to hospital with leakage from her ostomy and some abdominal pain patient did have a CT of abdominal pelvis concerning for abdominal wall fluid collection and question of infected seroma On today's evaluation that is 08/09/2023, the patient denies any fever or any chills, the patient is breathing comfortably on room air, patient denies chest pain shortness of breath, or cough, patient abdominal pain has decreased in intensity no nausea vomiting did have output in her colostomy Patient did have a CRP of 0.80, white count is 5.1 Objective - Vital Signs Vital signs: Vital Signs Temp 97.9 F 08/09/23 08:00 Pulse 74 08/09/23 08:00 Resp 18 08/09/23 08:00 BP 108/71 08/09/23 09:55 Pulse Ox 97 08/09/23 08:00 FiO2 Intake & Output 08/08/23 08/09/23 08/09/23 18:59 06:59 18:59 Intake Total 118 Balance 118 Weight 68.039 kg Intake: Oral 118 Other: # Voids 2 - Exam GENERAL DESCRIPTION: A middle-aged female lying in bed in no distress RESPIRATORY SYSTEM: Unlabored breathing , clear to auscultation anteriorly HEART: S1 S2 regular rate and rhythm , ABDOMEN: Soft , no tenderness EXTREMITIES: No edema feet - Labs CBC & Chem 7: 08/08/23 06:56 08/08/23 06:56 Labs: Abnormal Lab Results - Last 24 Hours (Table) 08/08/23 08/08/23 08/09/23 Range/Units 12:59 20:48 06:06 POC Glucose (mg/dL) 167 H 135 H (70-110) mg/dL Hemoglobin A1c (<=6.0) % Urine Appearance Slightly Cloudy H (Clear) Urine Protein Trace H (Negative) Urine Ketones 1+ H (Negative) Urine Blood Large H (Negative) Urine RBC >182 H (0-5) /hpf Urine WBC 10 H (0-5) /hpf Ur Squamous Epith Cells 6 H (0-4) /hpf Urine Bacteria Rare H (None) /hpf Urine Mucus Moderate H (None) /hpf 08/09/23 08/09/23 Range/Units 07:07 11:19 POC Glucose (mg/dL) 118 H (70-110) mg/dL Hemoglobin A1c 6.4 H (<=6.0) % Urine Appearance (Clear) Urine Protein (Negative) Urine Ketones (Negative) Urine Blood (Negative) Urine RBC (0-5) /hpf Urine WBC (0-5) /hpf Ur Squamous Epith Cells (0-4) /hpf Urine Bacteria (None) /hpf Urine Mucus (None) /hpf Assessment and Plan (1) Abnormal CT of the abdomen Current Visit: Yes Status: Acute Code(s): R93.5 - ABN FINDINGS ON DX IMAGING OF ABD REGIONS, INC RETROPERITON SNOMED Code(s): 36840848293953759 (2) Seroma after procedure Current Visit: Yes Status: Acute Code(s): WCI6137 - SNOMED Code(s): 963725252916716 Plan: 1patient with a recent admission to the hospital for low anterior resection did have anastomosis leak requiring takedown of the anastomosis and Ly's procedure now presenting to the hospital with stool leaking from her colostomy bag and did have abnormal CT concerning for possible incisional/abdominal wall fluid collection and the question of possible infected seroma patient however is not running any fever does not look toxic and white count is normal clinical suspicion low for infected seroma but not entirely excluded 2- patient did have a normal white count, normal CRP and no fever that we will go against infected seroma hence we will hold on IR drainage of this fluid collection and antibiotics can be safely discontinued on discharge Dictation was produced using [employer] dictation software. please excuse any grammatical, word or spelling errors. Time with Patient: Less than 30
[2023-08-09 16:50] LABS: Glucose,Whole Blood 132 mg/dL (70-110)
[2023-08-09 20:03] LABS: Glucose,Whole Blood 168 mg/dL (70-110)
[2023-08-09] MEDS: FAMOTIDINE 20 MG TAB PO SCH (20:12)
[2023-08-10] MEDS: MORPHINE SULFATE 4 MG/ML SYRINGE IV PRN (06:00)
[2023-08-10 06:09] LABS: Glucose,Whole Blood 111 mg/dL (70-110)
[2023-08-10] MEDS: INSULIN ASPART (NovoLOG) 100 UNIT/ML VIAL SQ SCH ×2 (06:12→11:59)
[2023-08-10] MEDS ORDERED: SENNOSIDES 8.6 MG TAB PO SCH (06:30)
--- NOTE | 2023-08-10 07:22 | XR ---
EXAMINATION TYPE: XR abdomen 1V DATE OF EXAM: 08/10/2023 6:36 AM CLINICAL INDICATION:Female, 53 years old with history of no ostomy output in 24 hours; [facility] COMPARISON: 07/08/2023 TECHNIQUE: One radiographic view of the abdomen was obtained. FINDINGS: There is moderate amount stool in the colon. The bowel gas pattern is nonspecific without d ilated loops of small or large bowel. There is no evidence for organomegaly or pneumoperitoneum. The osseous structures are intact. No abnormal calcifications are present. Fecal material and gas are d emonstrated throughout the colon and rectum. IVC filter present. IMPRESSION: Moderate stool burden in the right colon no other acute process.
[2023-08-10] MEDS: INSULIN DETEMIR (LEVEMIR) 100 UNIT/ML SYR SQ SCH (07:40)
[2023-08-10] MEDS: hydroCHLOROthiazide 12.5 MG CAP PO SCH (07:42)
[2023-08-10] MEDS: cloNIDine HCL 0.1 MG TAB PO SCH (07:42)
[2023-08-10] MEDS: lisinopriL 10 MG TAB PO SCH (07:43)
[2023-08-10] MEDS: PIOGLITAZONE 15 MG TAB PO SCH (07:51)
[2023-08-10] MEDS: POTASSIUM CHLORIDE ER 20 MEQ TAB.ER PO SCH (07:51)
[2023-08-10] MEDS: PIPERACILLIN-TAZOBACTAM 3.375 GM in SODIUM CHLORIDE 0.9% 100 ML IVPB SCH (07:51)
[2023-08-10] MEDS: DAPAGLIFLOZIN PROPANEDIOL 5 MG TABLET PO SCH (07:51)
[2023-08-10] MEDS: GABAPENTIN 400 MG CAP PO SCH (07:51)
[2023-08-10] MEDS: ATORVASTATIN 80 MG TAB PO SCH (07:52)
[2023-08-10] MEDS: busPIRone HCl 5 MG TAB PO SCH (07:52)
[2023-08-10 08:27] VITALS: BP 90/60; PULSE 67; RESP 17; TEMP 98.2
[2023-08-10] MEDS ORDERED: SENNOSIDES 8.6 MG TAB PO STA (10:10)
[2023-08-10 10:48] LABS: HCT 34.9 % (37.2-46.3); HGB 10.6 g/dL (12.0-15.0); MCH 27.5 pg (27.0-32.0); MCHC 30.4 g/dL (32.0-37.0); MCV 90.6 FL (80.0-97.0); NRBC Per 100 WBC 0 X 10*3/uL (0.00-0.01); Platelet Count 155 X 10*3/uL (140-440); RBC 3.85 X 10*6/uL (4.10-5.20); RDW 16.4 % (11.5-14.5); WBC 4.96 X 10*3/uL (4.50-10.00)
[2023-08-10 11:08] LABS: ALT 11 U/L (8-44); AST 19 U/L (13-35); Albumin 3.6 g/dL (3.8-4.9); Albumin/Globulin Ratio 1.29 Ratio (1.60-3.17); Alkaline Phosphatase 115 U/L (41-126); Blood Urea Nitrogen 11.1 mg/dL (9.0-27.0); Calcium 8.8 mg/dL (8.7-10.3); Carbon Dioxide 19.9 mmol/L (21.6-31.8); Chloride 108 mmol/L (96-109); Globulin 2.8 g/dL (1.6-3.3); Glucose 107 mg/dL (70-110); Potassium 4.3 mmol/L (3.5-5.5); Sodium 139 mmol/L (135-145); Total Bilirubin 0.5 mg/dL (0.3-1.2); Total Protein 6.4 g/dL (6.2-8.2)
[2023-08-10 11:24] LABS: Glucose,Whole Blood 99 mg/dL (70-110)
--- NOTE | 2023-08-10 12:14 | P.DS ---
Providers Date of admission: 08/07/23 22:28 Expected date of discharge: 08/10/23 Attending physician: Danna Saeed Consults: 08/07/23 22:26 Consult Physician Routine Consulting Provider: Haroon Lewis Consult Reason/Comments: known Do you want consulting provider notified?: Yes 08/08/23 13:09 Consult Physician Routine Consulting Provider: Burton Self Consult Reason/Comments: Ostomy site infection, ct scan showing seroma, eval uate for Abx Do you want consulting provider notified?: Yes Primary care physician: [facility] Course: Discharge diagnoses; Abdominal wall fluid collection Colostomy malfunction History of recent acute diverticulitis status post low anterior resection of the colon status post leakage from the anastomosis site followed by Ly procedure on 06/23 Bilateral Ovarian cyst status post bilateral ovarian cystectomy History of pneumo-peritoneam requiring exploratory laparotomy and bowel resection history of DVT Hypertension Insulin-dependent diabetes mellitus Hyperlipidemia Depression Hospital course; patient 53-year-old lady with past medical history significant for hypertension, diabetes mellitus, hyperlipidemia, recent bowel surgery requiring bowel resection who presented to the ER for abdominal pain and ostomy site malfunction. Patient recently had extensive stay in the hospital secondary to acute diverticulitis requiring low anterior resection of the colon followed by leakage from the anastomosis site and required another surgery which was converted into Ly procedure on 06/23. Patient was recently discharged from [facility] rehab. Ever since discharge patient was having issues with her ostomy site, patient was having abdominal pain around the ostomy site, there was leaking from the ostomy and patient was covered in fecal material over her abdominal and the groin area. Patient had a wound VAC in place. Because of these symptoms, patient was brought to the ER Initial lab work done in the ER showed WBC 7.9, hemoglobin 12.7, platelet count 251, sodium 137, potassium 4.2, BUNs 15, creatinine 0.44, glucose 132, total bili 1.4, patient was admitted to medicine service 08/10. Patient seen and examined. General surgery had evaluated the patient, recommended better ostomy care, no need for any intervention. ID also evaluated the patient, review computed tomography scan findings, recommended since patient INFECTIOUS markers were down, doubt fluid collection is infected, recommended discharging without antibiotics. Recommended outpatient follow-up PHYSICAL EXAMINATION: GENERAL: The patient is alert and oriented x3, not in any acute distress. Well developed, well nourished. HEENT: Pupils are round and equally reacting to light. EOMI. No scleral icterus. No conjunctival pallor. Normocephalic, atraumatic. No pharyngeal erythema. No thyromegaly. CARDIOVASCULAR: S1 and S2 present. No murmurs, rubs, or gallops. PULMONARY: Chest is clear to auscultation, no wheezing or crackles. ABDOMEN: laparotomy surgical incision seen. Ostomy seen MUSCULOSKELETAL: No joint swelling or deformity. EXTREMITIES: No cyanosis, clubbing, or pedal edema. NEUROLOGICAL: Gross neurological examination did not reveal any focal deficits. SKIN: No rashes. Dictation was produced using [employer] dictation software. please excuse any grammatical, word or spelling errors. Patient Condition at Discharge: Fair Plan - Discharge Summary New Discharge Prescriptions: Continue Apixaban [Eliquis] 5 mg PO BID traZODone HCL 150 mg PO HS PRN PRN Reason: Insomnia busPIRone HCL 15 mg PO TID Pioglitazone [Actos] 15 mg PO DAILY Dapagliflozin Propanediol [Farxiga] 5 mg PO DAILY Ibuprofen [Motrin] 600 mg PO Q8HR PRN #30 tab PRN Reason: Pain Gabapentin 800 mg PO TID 3 Days #9 tab HYDROcodone/APAP 10-325MG [Worley 10-325] 1 tab PO Q6HR PRN PRN Reason: Pain Potassium Chloride ER [K-Dur 20] 20 meq PO BID-W/MEALS hydroCHLOROthiazide [Hydrodiuril] 12.5 mg PO DAILY Insulin Glargine,Hum.rec.anlog [Lantus Solostar Pen] 36 unit SQ DAILY Famotidine 40 mg PO HS lisinopriL [Zestril] 30 mg PO DAILY cloNIDine HCL [Catapres] 0.05 mg PO BID Atorvastatin [Lipitor] 80 mg PO DAILY Discharge Medication List Apixaban [Eliquis] 5 mg PO BID 08/04/21 [History] Famotidine 40 mg PO HS 08/04/21 [History] Insulin Glargine,Hum.rec.anlog [Lantus Solostar Pen] 36 unit SQ DAILY 08/04/21 [History] Potassium Chloride ER [K-Dur 20] 20 meq PO BID-W/MEALS 08/04/21 [History] hydroCHLOROthiazide [Hydrodiuril] 12.5 mg PO DAILY 08/04/21 [History] Dapagliflozin Propanediol [Farxiga] 5 mg PO DAILY 03/14/23 [History] Pioglitazone [Actos] 15 mg PO DAILY 03/14/23 [History] busPIRone HCL 15 mg PO TID 03/14/23 [History] cloNIDine HCL [Catapres] 0.05 mg PO BID 03/14/23 [History] lisinopriL [Zestril] 30 mg PO DAILY 03/14/23 [History] traZODone HCL 150 mg PO HS PRN 03/14/23 [History] Gabapentin 800 mg PO TID 3 Days #9 tab 07/12/23 [Rx] Ibuprofen [Motrin] 600 mg PO Q8HR PRN #30 tab 07/12/23 [Rx] Atorvastatin [Lipitor] 80 mg PO DAILY 08/07/23 [History] HYDROcodone/APAP 10-325MG [Worley 10-325] 1 tab PO Q6HR PRN 08/07/23 [History] Follow up Appointment(s)/Referral(s): Susie Redding MD [Primary Care Provider] - 1-2 days [facility] [NON-STAFF] - 1-2 Days ([facility] will call you to schedule your in home nursing visits. ) Discharge Disposition: HOME SELF-CARE
--- NOTE | 2023-08-10 12:37 | P.PN ---
Subjective Progress Note Date: 08/10/23 Principal diagnosis: Reason for follow-up is abdominal CT and question of seroma versus an infected seroma Patient is a 53-year-old female with past medical history significant for diverticulitis recent admission to the hospital for low anterior resection on 06/18/2023 patient did develop anastomosis leak for the patient was taken back to the OR on 06/24/2023 for takedown of colorectal anastomosis and conversion to Ly's procedure and colostomy placement, presented to hospital with leakage from her ostomy and some abdominal pain patient did have a CT of abdominal pelvis concerning for abdominal wall fluid collection and question of infected seroma On today's evaluation that is 08/10/2023, the patient remains to be afebrile, the patient is breathing comfortably without need for oxygen, but denies having any chest pain shortness of the cough repeat abdominal pain has improved denies any nausea vomiting did have output in her colostomy and no further problem with the leakage. The patient did have white count of 4.96, creatinine 0.6 CRP 0.80 that is normal Objective - Vital Signs Vital signs: Vital Signs Temp 98.2 F 08/10/23 07:16 Pulse 67 08/10/23 07:16 Resp 17 08/10/23 07:16 BP 90/60 08/10/23 07:16 Pulse Ox 96 08/10/23 07:16 FiO2 Intake & Output 08/09/23 08/10/23 08/10/23 18:59 06:59 18:59 Intake Total 736 Balance 736 Intake: Oral 736 Other: # Voids 3 2 - Exam GENERAL DESCRIPTION: A middle-aged female lying in bed in no distress RESPIRATORY SYSTEM: Unlabored breathing , clear to auscultation anteriorly HEART: S1 S2 regular rate and rhythm , ABDOMEN: Soft , no tenderness EXTREMITIES: No edema feet - Labs CBC & Chem 7: 08/10/23 06:43 08/10/23 06:43 Labs: Abnormal Lab Results - Last 24 Hours (Table) 08/09/23 08/09/23 08/09/23 Range/Units 07:07 11:19 16:49 POC Glucose (mg/dL) 118 H 132 H (70-110) mg/dL Hemoglobin A1c 6.4 H (<=6.0) % 12/14/23 12/15/23 Range/Units 20:02 06:07 POC Glucose (mg/dL) 168 H 111 H (70-110) mg/dL Hemoglobin A1c (<=6.0) % Assessment and Plan (1) Abnormal CT of the abdomen Status: Acute Code(s): R93.5 - ABN FINDINGS ON DX IMAGING OF ABD REGIONS, INC RETROPERITON SNOMED Code(s): 82039000781784690 (2) Seroma after procedure Status: Acute Code(s): OIL7442 - SNOMED Code(s): 200410059834122 Plan: 1patient with a recent admission to the hospital for low anterior resection did have anastomosis leak requiring takedown of the anastomosis and Ly's procedure now presenting to the hospital with stool leaking from her colostomy bag and did have abnormal CT concerning for possible incisional/abdominal wall fluid collection and the question of possible infected seroma patient however is not running any fever does not look toxic and white count is normal clinical suspicion low for infected seroma but not entirely excluded 2- patient did have a normal white count, normal CRP and no fever that we will go against infected seroma , This has been explained to the patient in layman term she does not need any drainage procedure at this point however the patient needs to have a close follow-up with her surgeon if the patient develops any abdominal pain fever or chills or any purulent drainage she need to come back to the hospital right away, patient verbalized understanding and did say okay to the plan, no need for antibiotic on discharge this was discussed with the admitting team working on discharge Dictation was produced using [employer] dictation software. please excuse any gr ammatical, word or spelling errors. Time with Patient: Greater than 30
--- NOTE | 2023-08-10 13:07 | P.PN ---
Subjective Progress Note Date: 08/10/23 CHIEF COMPLAINT: Leaking from ostomy HISTORY OF PRESENT ILLNESS: Patient is a received her ostomy teaching. She's had no further leaking from the ostomy bag. Her pain is controlled. She did have an abdominal x-ray that showed moderate stool in the right colon. She is receiving a stool softener. She her home care is all set up for outpatient. She is tolerating regular diet. afebrile. Per ID service no antibiotics at discharge PHYSICAL EXAM: VITAL SIGNS: Reviewed. GENERAL: Well-developed in no acute distress. ABDOMEN: Soft. Nondistended. Nontender. Ostomy with small amount of stool present. Abdominal incisional wound bed healing. NEUROLOGIC: Alert and oriented. Cranial nerves II through XII grossly intact. ASSESSMENT: 1. Abdominal incisional wound 2. Malfunctioning colostomy bag 3. Possible seroma PLAN: -Patient can be discharged from surgical standpoint when medically stable -Continue local wound care per wound care service instructions and follow-up outpatient for wound VAC placement -manager interface arranging home care needs and ostomy support Physician Tool And Die Assembler note has been reviewed by physician. Signing provider agrees with the documented findings, assessment, and plan of care. Objective - Vital Signs Vital signs: Vital Signs Temp 98.2 F 08/10/23 07:16 Pulse 67 08/10/23 07:16 Resp 17 08/10/23 07:16 BP 90/60 08/10/23 07:16 Pulse Ox 96 08/10/23 07:16 FiO2 Intake & Output 08/09/23 08/10/23 08/10/23 18:59 06:59 18:59 Intake Total 736 Balance 736 Intake: Oral 736 Other: # Voids 3 2 - Labs CBC & Chem 7: 08/10/23 06:43 08/10/23 06:43 Labs: Abnormal Lab Results - Last 24 Hours (Table) 08/09/23 08/09/23 08/10/23 Range/Units 16:49 20:02 06:07 RBC (4.10-5.20) X 10*6/uL Hgb (12.0-15.0) g/dL Hct (37.2-46.3) % MCHC (32.0-37.0) g/dL RDW (11.5-14.5) % Carbon Dioxide (21.6-31.8) mmol/L POC Glucose (mg/dL) 132 H 168 H 111 H (70-110) mg/dL Albumin (3.8-4.9) g/dL Albumin/Globulin Ratio (1.60-3.17) Ratio 08/10/23 08/10/23 Range/Units 06:43 06:43 RBC 3.85 L (4.10-5.20) X 10*6/uL Hgb 10.6 L (12.0-15.0) g/dL Hct 34.9 L (37.2-46.3) % MCHC 30.4 L (32.0-37.0) g/dL RDW 16.4 H (11.5-14.5) % Carbon Dioxide 19.9 L (21.6-31.8) mmol/L POC Glucose (mg/dL) (70-110) mg/dL Albumin 3.6 L (3.8-4.9) g/dL Albumin/Globulin Ratio 1.29 L (1.60-3.17) Ratio Microbiology - Last 24 Hours (Table) 08/09/23 07:07 Blood Culture - Preliminary Blood
== END 2023-08-10 12:18 | disposition home health service (06) ==
LOC: EC 20:05 → 5NMEDONC 22:28 → INTOOBSV 22:28 → 5NMEDONC 08-08 01:31 → 4SSUR 08-08 01:41 → UNDODISIN 08-10 12:18
PROVIDERS: ADMIT Hospitalist; ATTEND Hospitalist
DX: L98.495 Non-pressure chronic ulcer of skin of other sites with muscle involvement without evidence of necrosis (principal); K94.03 Colostomy malfunction; E11.622 Type 2 diabetes mellitus with other skin ulcer; E78.5 Hyperlipidemia, unspecified; I10 Essential (primary) hypertension; F32.A Depression, unspecified; F17.200 Nicotine dependence, unspecified, uncomplicated; B96.20 Unspecified Escherichia coli [E. coli] as the cause of diseases classified elsewhere; Z86.73 Personal history of transient ischemic attack (TIA), and cerebral infarction without residual deficits; Z86.14 Personal history of Methicillin resistant Staphylococcus aureus infection; Z86.718 Personal history of other venous thrombosis and embolism; Z79.899 Other long term (current) drug therapy; Z79.84 Long term (current) use of oral hypoglycemic drugs; Z79.4 Long term (current) use of insulin; Z79.02 Long term (current) use of antithrombotics/antiplatelets
CPT/HCPCS: 96376 ×4; 96361 ×3; 96365; 96366 ×2; 96375 ×2; 99285; 80053 ×3; 82150; 83690; 83735; 84100; 85025 ×2; 85027; 86140; 81001; 87040; 83036; 74018; 74177; G0378 ×5; J2543 ×2; J2270 ×3; J2405; J1170; C9113; Q9967; 96374

== ENCOUNTER 2023-11-24 17:27 | Emergency (ER) | payer OTHER ==
[2023-11-24 17:40] VITALS: TEMP 98
--- NOTE | 2023-11-24 18:08 | ED ---
Abdominal Pain HPI - General Chief Complaint: Abdominal Pain Stated Complaint: NVD abd pain Time Seen by Provider: 11/24/23 17:52 Source: patient Mode of arrival: ambulatory Limitations: no limitations - History of Present Illness Initial Comments: 53-year-old female with a past medical history significant for diverticulitis status post lower anterior resection on 06/18/2023 presenting to the ED with a chief complaint of abdominal pain. Patient reports over the past 2 to 3 days had some pain of her left lower abdomen. Over this time she has also noticed that her ostomy bag has been filling up rapidly with a watery stool. Also notes some associated nausea and vomiting yesterday however none today. Denies fever or chills. No chest pain shortness of breath. Denies urinary symptoms. No other complaints at this time. - Related Data Home Medications Medication Instructions Recorded Confirmed Insulin Glargine,Hum.rec.anlog 36 unit SQ DAILY 08/04/21 11/24/23 [Lantus Solostar Pen] hydroCHLOROthiazide [Hydrodiuril] 12.5 mg PO DAILY 08/04/21 11/24/23 busPIRone HCL 15 mg PO TID 03/14/23 11/24/23 traZODone HCL 150 mg PO HS PRN 03/14/23 11/24/23 Atorvastatin [Lipitor] 80 mg PO DAILY 08/07/23 11/24/23 HYDROcodone/APAP 10-325MG [Onset 1 tab PO Q12H PRN 08/07/23 11/24/23 10-325] Previous Rx's Medication Instructions Recorded Gabapentin 800 mg PO TID 3 Days #9 tab 07/12/23 Allergies Allergy/AdvReac Type Severity Reaction Status Date / Time No Known Allergies Allergy Verified 11/24/23 19:05 Review of Systems ROS Statement: Those systems with pertinent positive or pertinent negative responses have been documented in the HPI. ROS Other: All systems not noted in ROS Statement are negative. Past Medical History Past Medical History: CVA/TIA, Diabetes Mellitus, Hyperlipidemia, Hypertension Additional Past Medical History / Comment(s): expressive aphasia difficult to communicate, cva 2019 History of Any Multi-Drug Resistant Organisms: MRSA Date of last positivie culture/infection: 09/03/23 MDRO Source:: Groin Past Surgical History: Bowel Resection Additional Past Surgical History / Comment(s): IVC FILTER 2013. ileostomy. wound vac Past Anesthesia/Blood Transfusion Reactions: No Reported Reaction Past Psychological History: Depression Smoking Status: Current every day smoker, Vaper Past Alcohol Use History: None Reported Past Drug Use History: None Reported General Exam Limitations: no limitations General appearance: alert, in no apparent distress Eye exam: Present: normal appearance Neck exam: Present: normal inspection Respiratory exam: Present: wheezes Cardiovascular Exam: Present: regular rate GI/Abdominal exam: Present: soft (Minimal tenderness to palpation in the left lower abdomen without rebound guarding or rigidity. There is an ostomy in the left lower abdomen with a brown bag. Unable to visualize the ostomy secondary to this.) Neurological exam: Present: alert, oriented X3 Skin exam: Present: warm, dry Course Vital Signs 11/24/23 17:31 Temperature 98 F Pulse Rate 87 Respiratory 20 Rate Blood Pressure 185/97 O2 Sat by Pulse 97 Oximetry Medical Decision Making - Medical Decision Making Was pt. sent in by a medical professional or institution (, PA, SAW HANDLE ASSEMBLER, urgent care, hospital, or group home...) When possible be specific @ -No Did you speak to anyone other than the patient for history (EMS, parent, family, police, friend...)? What history was obtained from this source @ -No Did you review nursing and triage notes (agree or disagree)? Why? @ -I reviewed and agree with nursing and triage notes Were old charts reviewed (outside hosp., previous admission, EMS record, old EKG, old radiological studies, urgent care reports/EKG's, group home records)? Report findings @ -Prior chart reviewed. For further details please see HPI. Differential Diagnosis (chest pain, altered mental status, abdominal pain women, abdominal pain men, vaginal bleeding, weakness, fever, dyspnea, syncope, headache, dizziness, GI bleed, back pain, seizure, CVA, palpatations, mental health, musculoskeletal)? @ -Differential Abdominal Pain Women: Appendicitis, Cholecystitis, diverticulosis, ischemic bowel, pancreatitis, hepatitis, UTI, gastroenteritis, AAA, incarcerated hernia, bowel obstruction, constipation, inflammatory bowel, hepatitis, peptic ulcer disease, splenic infarction, perforated viscus, vulvitis, ovarian torsion, PID, kidney stone, placenta abruption, this is not meant to be an all-inclusive list EKG interpreted by me (3pts min.). @ -None X-rays interpreted by me (1pt min.). @ -None done CT interpreted by me (1pt min.). @ -CT abdomen pelvis interpreted me which revealed no evidence of acute finding. U/S interpreted by me (1pt. min.). @ -None done What testing was considered but not performed or refused? (CT, X-rays, U/S, labs)? Why? @ -None What meds were considered but not given or refused? Why? @ -None Did you discuss the management of the patient with other professionals (professionals i.e. DrFabián, PA, SAW HANDLE ASSEMBLER, lab, RT, psych nurse, social media assistant, mixing machine feeder, teacher, hospital admissions officer, dependency case manager)? Give summary @ -No Was smoking cessation discussed for >3mins.? @ -No Was critical care preformed (if so, how long)? @ -No Were there social determinants of health that impacted care today? How? (Homelessness, low income, unemployed, alcoholism, drug addiction, transportation, low edu. Level, literacy, decrease access to med. care, residential, rehab)? @ -No Was there de-escalation of care discussed even if they declined (Discuss DNR or withdrawal of care, Hospice)? DNR status @ -No What co-morbidities impacted this encounter? (DM, HTN, Smoking, COPD, CAD, Cancer, CVA, ARF, Chemo, Hep., AIDS, mental health diagnosis, sleep apnea, m orbid obesity)? @ -Status post bowel resection with ostomy Was patient admitted / discharged? Hospital course, mention meds given and route, prescriptions, significant lab abnormalities, going to OR and other pertinent info. @ -Discharge 53-year-old female with a past medical history significant for bowel resection with ostomy placed presenting to the ED with a chief complaint of abdominal pain. Patient states that since yesterday she has had some left lower abdominal pain increased stool production in her ostomy bag which she describes as watery. No fever or chills. Also notes she had some nausea and nonbloody emesis yesterday however today this is resolved. On examination, ostomy is obscured by a brown colostomy bag so I am unable to visualize the ostomy however does not seem to be patent with production of watery stool in the bag. Laboratory studies reviewed. CBC shows no elevation white blood cell count. Chemistry panel largely unremarkable except for an elevated lactic acid at 2.9. She was provided 2 L of IV fluids. UA shows moderate blood, 12 RBCs, no significant evidence of infection. CT abdomen pelvis reviewed which revealed no evidence of acute process. Symptoms likely viral in nature. Discharged home in stable condition with instructions to follow-up with her primary care provider. Advise good hydration discussed close return precautions with patient who verbalized agreement. Undiagnosed new problem with uncertain prognosis? @ -No Drug Therapy requiring intensive monitoring for toxicity (Heparin, Nitro, Insulin, Cardizem)? @ -No Were any procedures done? @ -No Diagnosis/symptom? @ -Gastroenteritis Acute, or Chronic, or Acute on Chronic? @ -Acute Uncomplicated (without systemic symptoms) or Complicated (systemic symptoms)? @ -Uncomplicated Side effects of treatment? @ -No Exacerbation, Progression, or Severe Exacerbation? @ -No Poses a threat to life or bodily function? How? (Chest pain, [place], NC, pneumonia, PE, COPD, DKA, ARF, appy, cholecystitis, CVA, Diverticulitis, Homicidal, Suicidal, threat to staff... and all critical care pts) @ -No - Lab Data Result diagrams: 11/24/23 18:32 11/24/23 18:32 Lab Results 11/24/23 11/24/23 11/24/23 Range/Units 18:32 18:32 18:32 WBC 9.6 (3.8-10.6) k/uL RBC 4.78 (3.80-5.40) m/uL Hgb 13.5 (11.4-16.0) gm/dL Hct 42.0 (34.0-46.0) % MCV 87.9 (80.0-100.0) fL MCH 28.2 (25.0-35.0) pg MCHC 32.0 (31.0-37.0) g/dL RDW 15.3 (11.5-15.5) % Plt Count 200 (150-450) k/uL MPV 8.9 Neutrophils % 65 % Lymphocytes % 26 % Monocytes % 5 % Eosinophils % 2 % Basophils % 1 % Neutrophils # 6.2 (1.3-7.7) k/uL Lymphocytes # 2.5 (1.0-4.8) k/uL Monocytes # 0.5 (0-1.0) k/uL Eosinophils # 0.2 (0-0.7) k/uL Basophils # 0.1 (0-0.2) k/uL Sodium 137 (137-145) mmol/L Potassium 4.2 (3.5-5.1) mmol/L Chloride 104 (98-107) mmol/L Carbon Dioxide 22 (22-30) mmol/L Anion Gap 11 mmol/L BUN 19 H (7-17) mg/dL Creatinine 0.48 L (0.52-1.04) mg/dL Est GFR (CKD-EPI)AfAm >90 (>60 ml/min/1.73 sqM) Est GFR (CKD-EPI)NonAf >90 (>60 ml/min/1.73 sqM) Glucose 254 H (74-99) mg/dL Lactic Ac Sepsis Rflx Plasma Lactic Acid Kyrie 2.9 H* (0.7-2.0) mmol/L Calcium 9.5 (8.4-10.2) mg/dL Total Bilirubin 0.5 (0.2-1.3) mg/dL AST 32 (14-36) U/L ALT 34 (4-34) U/L Alkaline Phosphatase 161 H (38-126) U/L Total Protein 7.4 (6.3-8.2) g/dL Albumin 4.2 (3.5-5.0) g/dL Amylase 79 (30-110) U/L Lipase 264 (23-300) U/L Urine Color Urine Appearance (Clear) Urine pH (5.0-8.0) Ur Specific [place] (1.001-1.035) Urine Protein (Negative) Urine Glucose (UA) (Negative) Urine Ketones (Negative) Urine Blood (Negative) Urine Nitrite (Negative) Urine Bilirubin (Negative) Urine Urobilinogen (<2.0) mg/dL Ur Leukocyte Esterase (Negative) Urine RBC (0-5) /hpf Ur Squamous Epith Cells (0-4) /hpf Urine Bacteria (None) /hpf Urine Mucus (None) /hpf Influenza Type A (PCR) (Not Detectd) Influenza Type B (PCR) (Not Detectd) RSV (PCR) (Not Detectd) SARS-CoV-2 (PCR) (Not Detectd) 03/30/24 03/30/24 03/30/24 Range/Units 18:32 19:20 20:30 WBC (3.8-10.6) k/uL RBC (3.80-5.40) m/uL Hgb (11.4-16.0) gm/dL Hct (34.0-46.0) % MCV (80.0-100.0) fL MCH (25.0-35.0) pg MCHC (31.0-37.0) g/dL RDW (11.5-15.5) % Plt Count (150-450) k/uL MPV Neutrophils % % Lymphocytes % % Monocytes % % Eosinophils % % Basophils % % Neutrophils # (1.3-7.7) k/uL Lymphocytes # (1.0-4.8) k/uL Monocytes # (0-1.0) k/uL Eosinophils # (0-0.7) k/uL Basophils # (0-0.2) k/uL Sodium (137-145) mmol/L Potassium (3.5-5.1) mmol/L Chloride (98-107) mmol/L Carbon Dioxide (22-30) mmol/L Anion Gap mmol/L BUN (7-17) mg/dL Creatinine (0.52-1.04) mg/dL Est GFR (CKD-EPI)AfAm (>60 ml/min/1.73 sqM) Est GFR (CKD-EPI)NonAf (>60 ml/min/1.73 sqM) Glucose (74-99) mg/dL Lactic Ac Sepsis Rflx Y Plasma Lactic Acid Kyrie (0.7-2.0) mmol/L Calcium (8.4-10.2) mg/dL Total Bilirubin (0.2-1.3) mg/dL AST (14-36) U/L ALT (4-34) U/L Alkaline Phosphatase (38-126) U/L Total Protein (6.3-8.2) g/dL Albumin (3.5-5.0) g/dL Amylase (30-110) U/L Lipase (23-300) U/L Urine Color Colorless Urine Appearance Clear (Clear) Urine pH 5.5 (5.0-8.0) Ur Specific [place] 1.050 H (1.001-1.035) Urine Protein Negative (Negative) Urine Glucose (UA) 3+ H (Negative) Urine Ketones Negative (Negative) Urine Blood Moderate H (Negative) Urine Nitrite Negative (Negative) Urine Bilirubin Negative (Negative) Urine Urobilinogen <2.0 (<2.0) mg/dL Ur Leukocyte Esterase Negative (Negative) Urine RBC 12 H (0-5) /hpf Ur Squamous Epith Cells 3 (0-4) /hpf Urine Bacteria Rare H (None) /hpf Urine Mucus Rare H (None) /hpf Influenza Type A (PCR) Not Detected (Not Detectd) Influenza Type B (PCR) Not Detected (Not Detectd) RSV (PCR) Not Detected (Not Detectd) SARS-CoV-2 (PCR) Not Detected (Not Detectd) 11/24/23 Range/Units 22:02 WBC (3.8-10.6) k/uL RBC (3.80-5.40) m/uL Hgb (11.4-16.0) gm/dL Hct (34.0-46.0) % MCV (80.0-100.0) fL MCH (25.0-35.0) pg MCHC (31.0-37.0) g/dL RDW (11.5-15.5) % Plt Count (150-450) k/uL MPV Neutrophils % % Lymphocytes % % Monocytes % % Eosinophils % % Basophils % % Neutrophils # (1.3-7.7) k/uL Lymphocytes # (1.0-4.8) k/uL Monocytes # (0-1.0) k/uL Eosinophils # (0-0.7) k/uL Basophils # (0-0.2) k/uL Sodium (137-145) mmol/L Potassium (3.5-5.1) mmol/L Chloride (98-107) mmol/L Carbon Dioxide (22-30) mmol/L Anion Gap mmol/L BUN (7-17) mg/dL Creatinine (0.52-1.04) mg/dL Est GFR (CKD-EPI)AfAm (>60 ml/min/1.73 sqM) Est GFR (CKD-EPI)NonAf (>60 ml/min/1.73 sqM) Glucose (74-99) mg/dL Lactic Ac Sepsis Rflx Plasma Lactic Acid Kyrie 1.8 (0.7-2.0) mmol/L Calcium (8.4-10.2) mg/dL Total Bilirubin (0.2-1.3) mg/dL AST (14-36) U/L ALT (4-34) U/L Alkaline Phosphatase (38-126) U/L Total Protein (6.3-8.2) g/dL Albumin (3.5-5.0) g/dL Amylase (30-110) U/L Lipase (23-300) U/L Urine Color Urine Appearance (Clear) Urine pH (5.0-8.0) Ur Specific [place] (1.001-1.035) Urine Protein (Negative) Urine Glucose (UA) (Negative) Urine Ketones (Negative) Urine Blood (Negative) Urine Nitrite (Negative) Urine Bilirubin (Negative) Urine Urobilinogen (<2.0) mg/dL Ur Leukocyte Esterase (Negative) Urine RBC (0-5) /hpf Ur Squamous Epith Cells (0-4) /hpf Urine Bacteria (None) /hpf Urine Mucus (None) /hpf Influenza Type A (PCR) (Not Detectd) Influenza Type B (PCR) (Not Detectd) RSV (PCR) (Not Detectd) SARS-CoV-2 (PCR) (Not Detectd) Disposition Clinical Impression: Gastroenteritis Disposition: HOME SELF-CARE Condition: Good Instructions (If sedation given, give patient instructions): Gastroenteritis (DC) Additional Instructions: Please return to the Emergency Department if symptoms worsen or any other concerns. Please follow-up with your primary care provider. Please hydrate well. Is patient prescribed a controlled substance at d/c from ED?: No Referrals: Nonstaff,Physician [Primary Care Provider] - 1-2 days Time of Disposition: 22:41
[2023-11-24] MEDS: KETOROLAC 15 MG/ML 1 ML VIAL IVP STA (18:38)
[2023-11-24] MEDS: SODIUM CHLORIDE 0.9% 1,000 ML IV STA ×2 (18:40→19:46)
[2023-11-24 18:47] LABS: Basophils # (A) 0.1 k/uL (0-0.2); Basophils % (A) 1 %; Eosinophils # (A) 0.2 k/uL (0-0.7); Eosinophils % (A) 2 %; HGB 13.5 gm/dL (11.4-16.0); Lymphocytes # (A) 2.5 k/uL (1.0-4.8); Lymphocytes % (A) 26 %; MCH 28.2 pg (25.0-35.0); MCV 87.9 fL (80.0-100.0); Mean Platelet Volume 8.9; Monocytes # (A) 0.5 k/uL (0-1.0); Monocytes % (A) 5 %; Neutrophils # (A) 6.2 k/uL (1.3-7.7); Neutrophils % (A) 65 %; Platelet Count 200 k/uL (150-450); RBC 4.78 m/uL (3.80-5.40); RDW 15.3 % (11.5-15.5); WBC 9.6 k/uL (3.8-10.6)
[2023-11-24 18:55] LABS: ALT 34 U/L (4-34); AST 32 U/L (14-36); African American GFR (CKD) >90 (>60 ml/min/1.73 sqM); Albumin 4.2 g/dL (3.5-5.0); Alkaline Phosphatase 161 U/L (38-126); Amylase 79 U/L (30-110); Anion Gap 11 mmol/L; Blood Urea Nitrogen 19 mg/dL (7-17); Calcium 9.5 mg/dL (8.4-10.2); Carbon Dioxide 22 mmol/L (22-30); Chloride 104 mmol/L (98-107); Glucose 254 mg/dL (74-99); Lipase 264 U/L (23-300); Non-African American GFR(CKD) >90 (>60 ml/min/1.73 sqM); Potassium 4.2 mmol/L (3.5-5.1); Sodium 137 mmol/L (137-145); Total Bilirubin 0.5 mg/dL (0.2-1.3); Total Protein 7.4 g/dL (6.3-8.2)
[2023-11-24] MEDS: MORPHINE SULFATE 4 MG/ML SYRINGE IVP STA (19:46)
--- NOTE | 2023-11-24 19:57 | CT ---
EXAMINATION TYPE: CT abdomen pelvis w con DATE OF EXAM: 11/24/2023 COMPARISON: 08/08/2023 INDICATION: Hx diverticulitis s/p resection + ostomy. LLQ pain. DLP: 1036.1 mGycm, Automated exposure control for dose reduction was used. CONTRAST: 100 mL of Isovue 300. Study performed without Oral Contrast TECHNIQUE: Axial images were obtained from above the diaphragm to the pubic rami in the axial plane a t 5 mm thick sections. Reconstructed images are reviewed on the computer in the coronal plane. FINDINGS: Limited CT sections are obtained the lung bases. Some minimal atelectasis may be within dependent ri ght lung base. CT ABDOMEN: Liver: Normal Spleen: Normal Pancreas: Normal Adrenal glands: The adrenal glands are normal. Gallbladder: Gallbladder appears decompressed. Kidneys: No masses are evident. No hydronephrosis is present. No cysts are present. Delayed images were obtained through the kidneys, which remain unremarkable. Aorta: Vascular calcification is within the aorta. Inferior vena cava: There is a filter within the inferior vena cava. CT PELVIS: There is an ostomy in the left quadrant. Loops of bowel within the abdomen and pelvis are normal. This study is without limiting follow-up evaluation Appendix: Not identified. No dilated tubular structure or inflammatory changes evident. Urinary bladder: Normal. Genitourinary structures: Uterus appears adjacent to multiple loops of bowel and is not distinct. The re appears to be a left ovarian cyst measuring 4.2 x 2.7 cm. Previous measurement is 3.7 x 3.5 cm. Osseous structures: No suspicious lytic or sclerotic lesions. IMPRESSION: 1. Left ovarian cyst. 2. Left lower quadrant ostomy site
[2023-11-24 21:03] LABS: Appearance,Urine Clear (Clear); Bacteria,Urine Rare /hpf; Bilirubin,Urine Negative (Negative); Blood,Urine Moderate (Negative); Color,Urine Colorless; Glucose,Urine (UA) 3+ (Negative); Ketones,Urine Negative (Negative); Leukocyte Esterase,Urine Negative (Negative); Mucus,Urine Rare /hpf; Nitrite,Urine Negative (Negative); PH, Urine 5.5 (5.0-8.0); Protein,Urine Negative (Negative); RBC,Urine 12 /hpf (0-5); Squamous Epithelial Cell,Urine 3 /hpf (0-4); Urobilinogen,Urine <2.0 mg/dL (<2.0)
[2023-11-24 23:23] VITALS: BP 163/112; PULSE 82; RESP 18
== END 2023-11-24 22:58 | disposition home or self-care (01) ==
LOC: EC 17:27
DX: K52.9 Noninfective gastroenteritis and colitis, unspecified (principal); N83.202 Unspecified ovarian cyst, left side; F17.290 Nicotine dependence, other tobacco product, uncomplicated; Z93.3 Colostomy status; Z86.73 Personal history of transient ischemic attack (TIA), and cerebral infarction without residual deficits
CPT/HCPCS: 36415; 80053; 82150; 83605; 83690; 85025; 81001; 87636; 74177; 99284; 96374; 96375; 96361 ×2; J2270; J1885; Q9967

== ENCOUNTER → 2024-01-08 | Outpatient (CLI) | payer MEDICARE, OTHER ==
[2024-01-08 18:34] LABS: HGB 15.6 g/dL (12.0-15.0); MCH 29.3 pg (27.0-32.0); MCHC 31.8 g/dL (32.0-37.0); MCV 91.9 FL (80.0-97.0); Mean Platelet Volume 11.6 FL (9.5-12.2); NRBC Per 100 WBC 0.02 X 10*3/uL (0.00-0.01); Platelet Count 225 X 10*3/uL (140-440); RBC 5.33 X 10*6/uL (4.10-5.20); WBC 10.31 X 10*3/uL (4.50-10.00)
[2024-01-08 19:31] LABS: Albumin 4.7 g/dL (3.8-4.9); Albumin/Globulin Ratio 1.68 Ratio (1.60-3.17); BUN/Creat Ratio 20.17 Ratio (12.00-20.00); Blood Urea Nitrogen 12.1 mg/dL (9.0-27.0); Calcium 10.1 mg/dL (8.7-10.3); Carbon Dioxide 18.7 mmol/L (21.6-31.8); Chloride 101 mmol/L (96-109); Chol/HDL Ratio 8.24 Ratio; Globulin 2.8 g/dL (1.6-3.3); Glucose 150 mg/dL (70-110); Potassium 4.1 mmol/L (3.5-5.5); Sodium 135 mmol/L (135-145); Total Bilirubin 0.8 mg/dL (0.3-1.2); Total Protein 7.5 g/dL (6.2-8.2)
[2024-01-08 19:32] LABS: ALT 23 U/L (8-44); AST 23 U/L (13-35); Alkaline Phosphatase 138 U/L (41-126)
== END | disposition home or self-care (01) ==
LOC: LABWHC1 12:59
PROVIDERS: ATTEND Registered Nurse
DX: I10 Essential (primary) hypertension (principal); E11.8 Type 2 diabetes mellitus with unspecified complications; E78.5 Hyperlipidemia, unspecified; M62.81 Muscle weakness (generalized); R53.83 Other fatigue
CPT/HCPCS: 36415; 80053; 80061; 83036; 83721; 84443; 85027

== ENCOUNTER 2024-01-23 15:41 | Emergency (ER) | payer MEDICARE, OTHER ==
--- NOTE | 2024-01-23 16:42 | ED ---
Abdominal Pain HPI - General Chief Complaint: Abdominal Pain Stated Complaint: Abd pain Time Seen by Provider: 01/23/24 16:01 Source: patient, RN notes reviewed, old records reviewed Mode of arrival: ambulatory Limitations: no limitations - History of Present Illness Initial Comments: This is a 53-year-old female to the ER for evaluation abdominal pain. Patient is found with significant abdominal pain here in the emergency department. She has persistent abdominal pain epigastric abdominal pain at times also right lower quadrant with no nausea vomiting no fever cough or congestion no travel history or sick contacts patient abdominal pain is persistent and worsening currently patient's abdominal pain is transitioning to area where her ostomy is and has had diarrhea MD Complaint: abdominal pain -: unknown Location: epigastric, suprapubic Radiation: epigastric, suprapubic, L flank Migration to: suprapubic Severity: moderate Quality: sharp Consistency: constant, intermittent Improves With: bowel movement Associated Symptoms: diarrhea Treatments Prior to Arrival: other (0) - Related Data Home Medications Medication Instructions Recorded Confirmed Insulin Glargine,Hum.rec.anlog 36 unit SQ DAILY 08/04/21 11/24/23 [Lantus Solostar Pen] hydroCHLOROthiazide [Hydrodiuril] 12.5 mg PO DAILY 08/04/21 11/24/23 busPIRone HCL 15 mg PO TID 03/14/23 11/24/23 traZODone HCL 150 mg PO HS PRN 03/14/23 11/24/23 Atorvastatin [Lipitor] 80 mg PO DAILY 08/07/23 11/24/23 HYDROcodone/APAP 10-325MG [[place] 1 tab PO Q12H PRN 08/07/23 11/24/23 10-325] Previous Rx's Medication Instructions Recorded Gabapentin 800 mg PO TID 3 Days #9 tab 07/12/23 Ondansetron Odt [Zofran Odt] 4 mg PO Q8HR PRN #10 tab 11/24/23 Allergies Allergy/AdvReac Type Severity Reaction Status Date / Time No Known Allergies Allergy Verified 11/24/23 19:05 Review of Systems ROS Statement: Those systems with pertinent positive or pertinent negative responses have been documented in the HPI. ROS Other: All systems not noted in ROS Statement are negative. Past Medical History Past Medical History: CVA/TIA, Diabetes Mellitus, Hyperlipidemia, Hypertension Additional Past Medical History / Comment(s): expressive aphasia difficult to communicate, cva 2020 History of Any Multi-Drug Resistant Organisms: MRSA Date of last positivie culture/infection: 09/03/23 MDRO Source:: Groin Past Surgical History: Bowel Resection Additional Past Surgical History / Comment(s): IVC FILTER 2014. ileostomy. wound vac Past Anesthesia/Blood Transfusion Reactions: No Reported Reaction Past Psychological History: Depression Smoking Status: Current every day smoker, Vaper Past Alcohol Use History: None Reported Past Drug Use History: None Reported General Exam Limitations: no limitations General appearance: alert, in no apparent distress Head exam: Present: atraumatic, normocephalic, normal inspection Eye exam: Present: normal appearance, PERRL, EOMI. Absent: scleral icterus, conjunctival injection, periorbital swelling ENT exam: Present: normal exam, mucous membranes moist Neck exam: Present: normal inspection. Absent: tenderness, meningismus, lymphadenopathy Respiratory exam: Present: normal lung sounds bilaterally. Absent: respiratory distress, wheezes, rales, rhonchi, stridor Cardiovascular Exam: Present: regular rate, normal rhythm, normal heart sounds. Absent: systolic murmur, diastolic murmur, rubs, gallop, clicks GI/Abdominal exam: Present: soft, normal bowel sounds. Absent: distended, tenderness, guarding, rebound, rigid Extremities exam: Present: normal inspection, full ROM, normal capillary refill. Absent: tenderness, pedal edema, joint swelling, calf tenderness Back exam: Present: normal inspection Neurological exam: Present: alert, oriented X3, CN II-XII intact Psychiatric exam: Present: normal affect, normal mood Skin exam: Present: warm, dry, intact, normal color. Absent: rash Course Vital Signs 01/23/24 01/23/24 01/23/24 15:44 15:47 19:00 Temperature 97.6 F Pulse Rate 90 88 Respiratory 18 16 18 Rate Blood Pressure 172/95 148/91 O2 Sat by Pulse 96 98 Oximetry 01/23/24 01/23/24 01/23/24 20:00 21:00 22:00 Temperature Pulse Rate 74 76 Respiratory 16 18 16 Rate Blood Pressure 148/91 135/105 136/100 O2 Sat by Pulse 98 96 95 Oximetry 01/23/24 01/23/24 22:46 23:11 Temperature 98.4 F Pulse Rate 79 80 Respiratory 18 18 Rate Blood Pressure 137/96 152/96 O2 Sat by Pulse 97 96 Oximetry - Reevaluation(s) Reevaluation #1: Medical records reviewed Reevaluation #2: Patient symptoms improved Reevaluation #3: Patient informed of results and questions answered Reevaluation #4: Was pt. sent in by a medical professional or institution (, EVELINA, COVERING MACHINE OPERATOR, urgent care, hospital, or [place] [facility] facility...) When possible be specific @ -no Did you speak to anyone other than the patient for history (EMS, parent, family, police, friend...)? What history was obtained from this source @ -no Did you review nursing and triage notes (agree or disagree)? Why? @ -agree Are old charts reviewed (outside hosp., previous admission, EMS record, old EKG, old radiological studies, urgent care reports/EKG's, [place] [facility] facility records)? Report findings @ -yes Differential Diagnosis (chest pain, altered mental status, abdominal pain women, abdominal pain men, vaginal bleeding, weakness, fever, dyspnea, syncope, headache, dizziness, GI bleed, back pain, seizure, CVA, palpatations, mental health, musculoskeletal)? @ -prior EKG interpreted by me (3pts min.). @ -no X-rays interpreted by me (1pt min.). @ -no CT interpreted by me (1pt min.). @ -yes negative for acute disease U/S interpreted by me (1pt. min.). @ -no What testing was considered but not performed or refused? (CT, X-rays, U/S, labs)? Why? @ -none What meds were considered but not given or refused? Why? @ -none Did you discuss the management of the patient with other professionals (professionals i.e. , EVELINA, COVERING MACHINE OPERATOR, lab, RT, psych nurse, social service coordinator, bank reconciliator, teacher, event security officer, housing case manager)? Give summary @ -no Was smoking cessation discussed for >3mins.? @ -no Was critical care preformed (if so, how long)? @ -no Were there social determinants of health that impacted care today? How? (Home lessness, low income, unemployed, alcoholism, drug addiction, transportation, low edu. Level, literacy, decrease access to med. care, long term, rehab)? @ -none Was there de-escalation of care discussed even if they declined (Discuss DNR or withdrawal of care, Hospice)? DNR status @ -no What co-morbidities impacted this encounter? (DM, HTN, Smoking, COPD, CAD, Cancer, CVA, ARF, Chemo, Hep., AIDS, mental health diagnosis, sleep apnea, morbid obesity)? @ -none Was patient admitted / discharged? Hospital course, mention meds given and route, prescriptions, significant lab abnormalities, going to OR and other pertinent info. @ - 53-year-old female to the ER for evaluation abdominal pain. No significant symptoms of abdominal pain found here in the ER. Patient is in no acute distress and can be discharged home Discharge Undiagnosed new problem with uncertain prognosis? @ -no Drug Therapy requiring intensive monitoring for toxicity (Heparin, Nitro, Insulin, Cardizem)? @ -no Were any procedures done? @ -no Diagnosis/symptom? @ -Abdominal pain Acute, or Chronic, or Acute on Chronic? @ -Acute Uncomplicated (without systemic symptoms) or Complicated (systemic symptoms)? @ -Complicated Side effects of treatment? @ -no Exacerbation, Progression, or Severe Exacerbation? @ -exacerbation Poses a threat to life or bodily function? How? (Chest pain, USA, DC, pneumonia, PE, COPD, DKA, ARF, appy, cholecystitis, CVA, Diverticulitis, Homicidal, Suicidal, threat to staff... and all critical care pts) @ -no Reevaluation #5: Differential Abdominal Pain Women: Appendicitis, Cholecystitis, diverticulosis, ischemic bowel, pancreatitis, hepatitis, UTI, gastroenteritis, AAA, incarcerated hernia, bowel obstruction, constipation, inflammatory bowel, hepatitis, peptic ulcer disease, splenic infarction, perforated viscus, vulvitis, ovarian torsion, PID, kidney stone, placenta abruption, this is not meant to be an all-inclusive list Medical Decision Making - Medical Decision Making 53-year-old female to the ER for evaluation abdominal pain. No significant symptoms of abdominal pain found here in the ER. Patient is in no acute distress and can be discharged home - Lab Data Result diagrams: 01/23/24 19:10 01/23/24 18:12 Lab Results 01/23/24 01/23/24 01/23/24 Range/Units 17:00 18:12 18:12 WBC (3.8-10.6) k/uL RBC (3.80-5.40) m/uL Hgb (11.4-16.0) gm/dL Hct (34.0-46.0) % MCV (80.0-100.0) fL MCH (25.0-35.0) pg MCHC (31.0-37.0) g/dL RDW (11.5-15.5) % Plt Count (150-450) k/uL MPV Neutrophils % % Lymphocytes % % Monocytes % % Eosinophils % % Basophils % % Neutrophils # (1.3-7.7) k/uL Lymphocytes # (1.0-4.8) k/uL Monocytes # (0-1.0) k/uL Eosinophils # (0-0.7) k/uL Basophils # (0-0.2) k/uL Sodium 137 (137-145) mmol/L Potassium 4.0 (3.5-5.1) mmol/L Chloride 109 H (98-107) mmol/L Carbon Dioxide 22 (22-30) mmol/L Anion Gap 6 mmol/L BUN 14 (7-17) mg/dL Creatinine 0.45 L (0.52-1.04) mg/dL Est GFR (CKD-EPI)AfAm >90 (>60 ml/min/1.73 sqM) Est GFR (CKD-EPI)NonAf >90 (>60 ml/min/1.73 sqM) Glucose 121 H (74-99) mg/dL Plasma Lactic Acid Kyrie 1.6 (0.7-2.0) mmol/L Calcium 8.7 (8.4-10.2) mg/dL Total Bilirubin 0.7 (0.2-1.3) mg/dL AST 26 (14-36) U/L ALT 22 (4-34) U/L Alkaline Phosphatase 120 (38-126) U/L Total Protein 7.1 (6.3-8.2) g/dL Albumin 4.1 (3.5-5.0) g/dL Amylase 71 (30-110) U/L Lipase 172 (23-300) U/L Urine Color Light Yellow Urine Appearance Clear (Clear) Urine pH 6.0 (5.0-8.0) Ur Specific [place] 1.019 (1.001-1.035) Urine Protein Negative (Negative) Urine Glucose (UA) 3+ H (Negative) Urine Ketones Negative (Negative) Urine Blood Moderate H (Negative) Urine Nitrite Negative (Negative) Urine Bilirubin Negative (Negative) Urine Urobilinogen <2.0 (<2.0) mg/dL Ur Leukocyte Esterase Negative (Negative) Urine RBC 14 H (0-5) /hpf Urine WBC 2 (0-5) /hpf Ur Squamous Epith Cells 4 (0-4) /hpf Urine Bacteria Rare H (None) /hpf Urine Mucus Rare H (None) /hpf 01/23/24 Range/Units 19:10 WBC 8.6 (3.8-10.6) k/uL RBC 4.72 (3.80-5.40) m/uL Hgb 13.8 (11.4-16.0) gm/dL Hct 41.7 (34.0-46.0) % MCV 88.5 (80.0-100.0) fL MCH 29.2 (25.0-35.0) pg MCHC 33.0 (31.0-37.0) g/dL RDW 14.5 (11.5-15.5) % Plt Count 198 (150-450) k/uL MPV 8.6 Neutrophils % 65 % Lymphocytes % 26 % Monocytes % 5 % Eosinophils % 2 % Basophils % 1 % Neutrophils # 5.6 (1.3-7.7) k/uL Lymphocytes # 2.2 (1.0-4.8) k/uL Monocytes # 0.4 (0-1.0) k/uL Eosinophils # 0.2 (0-0.7) k/uL Basophils # 0.1 (0-0.2) k/uL Sodium (137-145) mmol/L Potassium (3.5-5.1) mmol/L Chloride (98-107) mmol/L Carbon Dioxide (22-30) mmol/L Anion Gap mmol/L BUN (7-17) mg/dL Creatinine (0.52-1.04) mg/dL Est GFR (CKD-EPI)AfAm (>60 ml/min/1.73 sqM) Est GFR (CKD-EPI)NonAf (>60 ml/min/1.73 sqM) Glucose (74-99) mg/dL Plasma Lactic Acid Kyrie (0.7-2.0) mmol/L Calcium (8.4-10.2) mg/dL Total Bilirubin (0.2-1.3) mg/dL AST (14-36) U/L ALT (4-34) U/L Alkaline Phosphatase (38-126) U/L Total Protein (6.3-8.2) g/dL Albumin (3.5-5.0) g/dL Amylase (30-110) U/L Lipase (23-300) U/L Urine Color Urine Appearance (Clear) Urine pH (5.0-8.0) Ur Specific [place] (1.001-1.035) Urine Protein (Negative) Urine Glucose (UA) (Negative) Urine Ketones (Negative) Urine Blood (Negative) Urine Nitrite (Negative) Urine Bilirubin (Negative) Urine Urobilinogen (<2.0) mg/dL Ur Leukocyte Esterase (Negative) Urine RBC (0-5) /hpf Urine WBC (0-5) /hpf Ur Squamous Epith Cells (0-4) /hpf Urine Bacteria (None) /hpf Urine Mucus (None) /hpf - Radiology Data Radiology results: report reviewed (CT abdomen pelvis is negative for acute disease), image reviewed Disposition Clinical Impression: Abdominal pain Disposition: HOME SELF-CARE Condition: Good Instructions (If sedation given, give patient instructions): Abdominal Pain (ED) Is patient prescribed a controlled substance at d/c from ED?: No Referrals: None,Stated [Primary Care Provider] - 1-2 days Time of Disposition: 23:00
[2024-01-23 17:27] LABS: Appearance,Urine Clear (Clear); Bacteria,Urine Rare /hpf; Bilirubin,Urine Negative (Negative); Blood,Urine Moderate (Negative); Color,Urine Light Yellow; Glucose,Urine (UA) 3+ (Negative); Ketones,Urine Negative (Negative); Leukocyte Esterase,Urine Negative (Negative); Mucus,Urine Rare /hpf; Nitrite,Urine Negative (Negative); Protein,Urine Negative (Negative); RBC,Urine 14 /hpf (0-5); Specific Gravity,Urine 1.019 (1.001-1.035); Squamous Epithelial Cell,Urine 4 /hpf (0-4); Urobilinogen,Urine <2.0 mg/dL (<2.0); WBC,Urine 2 /hpf (0-5)
[2024-01-23 18:43] LABS: ALT 22 U/L (4-34); African American GFR (CKD) >90 (>60 ml/min/1.73 sqM); Albumin 4.1 g/dL (3.5-5.0); Amylase 71 U/L (30-110); Anion Gap 6 mmol/L; Blood Urea Nitrogen 14 mg/dL (7-17); Calcium 8.7 mg/dL (8.4-10.2); Carbon Dioxide 22 mmol/L (22-30); Chloride 109 mmol/L (98-107); Glucose 121 mg/dL (74-99); Lipase 172 U/L (23-300); Non-African American GFR(CKD) >90 (>60 ml/min/1.73 sqM); Sodium 137 mmol/L (137-145); Total Bilirubin 0.7 mg/dL (0.2-1.3); Total Protein 7.1 g/dL (6.3-8.2)
[2024-01-23 18:47] LABS: AST 26 U/L (14-36); Alkaline Phosphatase 120 U/L (38-126)
[2024-01-23 19:29] LABS: Basophils # (A) 0.1 k/uL (0-0.2); Basophils % (A) 1 %; Eosinophils # (A) 0.2 k/uL (0-0.7); Eosinophils % (A) 2 %; HCT 41.7 % (34.0-46.0); HGB 13.8 gm/dL (11.4-16.0); Lymphocytes # (A) 2.2 k/uL (1.0-4.8); Lymphocytes % (A) 26 %; MCH 29.2 pg (25.0-35.0); MCV 88.5 fL (80.0-100.0); Mean Platelet Volume 8.6; Monocytes # (A) 0.4 k/uL (0-1.0); Monocytes % (A) 5 %; Neutrophils # (A) 5.6 k/uL (1.3-7.7); Neutrophils % (A) 65 %; Platelet Count 198 k/uL (150-450); RBC 4.72 m/uL (3.80-5.40); RDW 14.5 % (11.5-15.5); WBC 8.6 k/uL (3.8-10.6)
[2024-01-23] MEDS: HYDROmorphone 0.5 MG/0.5 ML SYRINGE IVP STA (19:32)
[2024-01-23] MEDS: PANTOPRAZOLE 40 MG/10 ML VIAL IVP STA (19:32)
[2024-01-23] MEDS: ONDANSETRON 4 MG/2 ML VIAL IVP STA (19:32)
[2024-01-23] MEDS: SODIUM CHLORIDE 0.9% 1,000 ML IV STA ×2 (19:33)
[2024-01-23] MEDS: HYDROmorphone 1 MG/ML 1 ML SYRINGE IVP STA (22:44)
--- NOTE | 2024-01-23 22:52 | CT ---
EXAMINATION TYPE: CT abdomen pelvis w con CT DLP: 1022.5 mGycm, Automated exposure control for dose reduction was used. DATE OF EXAM: 01/23/2024 7:51 PM COMPARISON: 11/24/2023 before CLINICAL INDICATION:Female, 53 years old with history of pain; Pt c/o LLQ pain around site of colosto my bag that began two weeks ago. TECHNIQUE: Axial CT of the abdomen and pelvis. Sagittal and coronal reformats were created on a [employer] workstation. Contrast used:100 mL of Isovue 300 with IV Contrast, (none if empty) Oral contrast used: without Oral Contrast (none if empty) FINDINGS: LOWER CHEST: Mild bibasilar scarring and/or subsegmental atelectasis. ABDOMEN LIVER: Mild hepatic steatosis suggested. No focal liver mass. Portal veins are enhancing. GALLBLADDER AND BILE DUCTS: Unremarkable. PANCREAS: Unremarkable. SPLEEN: Unremarkable. ADRENAL GLANDS: Thickened and small nodular appearance of the adrenals, could be due to hyperplasia a nd/or adenomatoid changes.. KIDNEYS AND URETERS: Kidneys enhance symmetrically. There is no evidence of mass or hydronephrosis. N o visible calculi. PELVIS BLADDER: Unremarkable REPRODUCTIVE: Uterus is present, not well evaluated with the margins appearing largely obscured. Norm al ovaries are not identified. Lobular density along the right uterus may be related to soft tissue d ensities and/or unopacified bowel loops--ovarian tissue origin is not excluded. Similar appearance of a region of low attenuation with possible postoperative changes along its margin within the right pe lvis, refer image 64. This lies adjacent to the rectal stump and may represent postoperative change. In the left adnexa anteriorly, there is a heterogeneous, lobulated, mixed solid and cystic appearing lesion which appears somewhat larger and more prominent / bulky than on the prior study. Overall this appears increased in size now measuring 5 x 4.6 cm and had measured at 4.2 x 2.7 cm. ABDOMEN & PELVIS STOMACH AND BOWEL: Stomach is nondistended, contains a small amount of fluid. The duodenal sweep is u nremarkable. The more distal small bowel does appear dilated/obstructed. Appendix is not identified w ith certainty, however there is no inflammatory process seen in the RLQ. Mild to moderate stool throu ghout the colon, and there is a colostomy in the left anterior wall which appears unremarkable. PERITONEUM/RETROPERITONEUM: No evidence of pneumoperitoneum or free fluid. VASCULATURE: Moderate atherosclerotic calcifications are present throughout the abdominal aorta and i ts branches. No evidence of aortic aneurysm. LYMPH NODES: No enlarged nodes by CT size criteria. Several mildly prominent periaortic retroperitone al lymph nodes are present, nonspecific. SOFT TISSUE/ABDOMINAL WALL: Multilobulated fat-containing hernia anteriorly in the lower abdomen/uppe r pelvis, including peristomal component again seen. MUSCULOSKELETAL: Mild diffuse degenerative changes. No clearly acute bony abnormality. IMPRESSION: 1. Postoperative changes, including left lower quadrant colostomy redemonstrated which appears paten t. 2. Similar appearance of multilobulated parastomal hernia, without evidence of obstructive change. 3. Relatively enlarging, solid and cystic-appearing masslike lesion in the left adnexa. Neoplasm is considered. Correlate clinically with, possibly related to the left ovary
[2024-01-23] MEDS: ACET/COD 300 MG/30 MG STARTER PACK 6 TAB BTL PO STA (23:09)
[2024-01-23 23:19] VITALS: BP 152/96; PULSE 80; RESP 18
[2024-01-23 23:20] VITALS: TEMP 98.4
== END 2024-01-23 23:14 | disposition home or self-care (01) ==
LOC: EC 15:41
DX: R10.31 Right lower quadrant pain (principal); R10.13 Epigastric pain; F17.290 Nicotine dependence, other tobacco product, uncomplicated; Z86.73 Personal history of transient ischemic attack (TIA), and cerebral infarction without residual deficits
CPT/HCPCS: 36415; 80053; 82150; 83605; 83690; 85025; 81001; 74177; 99284; 96374; 96375 ×2; 96376; 96361; J2405; J1170 ×2; C9113; Q9967

== ENCOUNTER → 2024-01-30 | Outpatient (CLI) | payer MEDICARE, OTHER ==
[2024-01-30 14:16] LABS: African American GFR (CKD) >90 (>60 ml/min/1.73 sqM); Blood Urea Nitrogen 14 mg/dL (7-17); Non-African American GFR(CKD) >90 (>60 ml/min/1.73 sqM)
--- NOTE | 2024-02-01 14:44 | CT ---
EXAMINATION TYPE: CT angio head CT DLP: 1134.10 mGycm, Automated exposure control for dose reduction was used. DATE OF EXAM: 01/30/2024 2:48 PM COMPARISON: None.. CLINICAL INDICATION:Female, 53 years old with history of I63.9 CEREBRAL INFARCTION, UNSPECIFIED; PHH, FOLLOW UP HX OF STROKE. TECHNIQUE: CT angio head Axially acquired helical CT angiogram was obtained. Axial images are supplem ented with 3D reconstructions which were post-processed at an independent workstation. NASCET criteri a used. Contrast used:70ml mL of Isovue 370 with IV Contrast, none Oral contrast used: none FINDINGS: Large area of hyperattenuating encephalomalacia left temporal and parietal lobes. No extra-axial dila tation of the lateral ventricles to suggest long-term chronic stroke but the encephalomalacia suggest s subacute to chronic in age. Correlating with the appearance of the brain parenchyma, branches of th e middle cerebral artery complying right middle lobes Should be the focus of concern. Vertebral arteries: The vertebral arteries are patent. Vertebral artery dominance: Codominant Basilar artery: The basilar artery is intact. The basilar artery bifurcation is normal. Internal Carotid arteries: The cervical, petrous, cavernous and supraclinoid segments are normal. KEDAR: Patent with no evidence of aneurysm. ACOM: Present without evidence of aneurysm. MCA: Patent with no evidence of aneurysm.. Left M1 segment identified. Left M2 segment identified. PC A: Patent with no evidence of aneurysm. PCOM: Hypoplastic bilaterally. Dural sinuses: Patent. IMPRESSION: No evidence of high-grade stenosis or intracranial aneurysm.
== END | disposition home or self-care (01) ==
LOC: RADCTMAIN 13:18
PROVIDERS: ATTEND Psychiatry & Neurology Neurology
DX: I63.9 Cerebral infarction, unspecified (principal)
CPT/HCPCS: 82565; 84520; 70496; 36415; Q9967

== ENCOUNTER 2024-02-13 23:24 | Emergency (ER) | payer MEDICARE, OTHER ==
[2024-02-13 23:53] VITALS: TEMP 98.3
[2024-02-14 01:16] LABS: Appearance,Urine Clear (Clear); Basophils # (A) 0.1 k/uL (0-0.2); Basophils % (A) 1 %; Bilirubin,Urine Negative (Negative); Blood,Urine Negative (Negative); Color,Urine Colorless; Eosinophils # (A) 0.2 k/uL (0-0.7); Eosinophils % (A) 2 %; Glucose,Urine (UA) 4+ (Negative); HCT 43.3 % (34.0-46.0); HGB 14.2 gm/dL (11.4-16.0); Ketones,Urine 1+ (Negative); Leukocyte Esterase,Urine Negative (Negative); Lymphocytes # (A) 2.4 k/uL (1.0-4.8); Lymphocytes % (A) 24 %; MCH 30.5 pg (25.0-35.0); MCHC 32.8 g/dL (31.0-37.0); MCV 92.9 fL (80.0-100.0); Mean Platelet Volume 8.4; Monocytes # (A) 0.6 k/uL (0-1.0); Monocytes % (A) 6 %; Neutrophils # (A) 6.8 k/uL (1.3-7.7); Neutrophils % (A) 67 %; Nitrite,Urine Negative (Negative); PH, Urine 5.5 (5.0-8.0); Platelet Count 215 k/uL (150-450); Protein,Urine Negative (Negative); RBC 4.66 m/uL (3.80-5.40); RDW 14.8 % (11.5-15.5); Specific Gravity,Urine 1.033 (1.001-1.035); Urobilinogen,Urine <2.0 mg/dL (<2.0); WBC 10.1 k/uL (3.8-10.6)
[2024-02-14] MEDS: HYDROmorphone 0.5 MG/0.5 ML SYRINGE IVP STA (01:26)
[2024-02-14 01:31] LABS: ALT 46 U/L (4-34); AST 36 U/L (14-36); African American GFR (CKD) >90 (>60 ml/min/1.73 sqM); Albumin 4.6 g/dL (3.5-5.0); Alkaline Phosphatase 123 U/L (38-126); Amylase 68 U/L (30-110); Anion Gap 10 mmol/L; Blood Urea Nitrogen 24 mg/dL (7-17); Calcium 9.5 mg/dL (8.4-10.2); Carbon Dioxide 19 mmol/L (22-30); Chloride 108 mmol/L (98-107); Glucose 299 mg/dL (74-99); Lipase 172 U/L (23-300); Non-African American GFR(CKD) >90 (>60 ml/min/1.73 sqM); Potassium 4.3 mmol/L (3.5-5.1); Sodium 137 mmol/L (137-145); Total Bilirubin 0.8 mg/dL (0.2-1.3); Total Protein 7.5 g/dL (6.3-8.2)
[2024-02-14] MEDS: HYDROmorphone 1 MG/ML 1 ML SYRINGE IVP STA (02:57)
--- NOTE | 2024-02-14 02:58 | ED ---
Abdominal Pain HPI - General Chief Complaint: Abdominal Pain Stated Complaint: ABD Pain Time Seen by Provider: 02/14/24 00:18 Source: patient Mode of arrival: ambulatory Limitations: no limitations - History of Present Illness Initial Comments: 53-year-old female with past medical history significant for ostomy in left lower quadrant presented to the ED with complaints of abdominal pain. Patient states has had pain surrounding her ostomy site for a while and notes that the area surrounding it also appears swollen more so than usual. Otherwise states that her ostomy has been draining. Denies fever or chills. No chest pain shortness of breath. No other complaints at this time. Is following with Dr. Jean for this. Of note, patient has prior history of stroke. Patient has difficulties verbalizing history secondary to this. - Related Data Home Medications Medication Instructions Recorded Confirmed Insulin Glargine,Hum.rec.anlog 36 unit SQ DAILY 08/04/21 11/24/23 [Lantus Solostar Pen] hydroCHLOROthiazide [Hydrodiuril] 12.5 mg PO DAILY 08/04/21 11/24/23 busPIRone HCL 15 mg PO TID 03/14/23 11/24/23 traZODone HCL 150 mg PO HS PRN 03/14/23 11/24/23 Atorvastatin [Lipitor] 80 mg PO DAILY 08/07/23 11/24/23 HYDROcodone/APAP 10-325MG [Ursa 1 tab PO Q12H PRN 08/07/23 11/24/23 10-325] Previous Rx's Medication Instructions Recorded Gabapentin 800 mg PO TID 3 Days #9 tab 07/12/23 Ondansetron Odt [Zofran Odt] 4 mg PO Q8HR PRN #10 tab 11/24/23 Acetaminophen Tab [Tylenol] 500 mg PO Q6H PRN #60 tablet 02/14/24 Allergies Allergy/AdvReac Type Severity Reaction Status Date / Time No Known Allergies Allergy Verified 02/13/24 23:50 Review of Systems ROS Statement: Those systems with pertinent positive or pertinent negative responses have been documented in the HPI. ROS Other: All systems not noted in ROS Statement are negative. Past Medical History Past Medical History: CVA/TIA, Diabetes Mellitus, Hyperlipidemia, Hypertension Additional Past Medical History / Comment(s): expressive aphasia difficult to communicate, cva 2020 History of Any Multi-Drug Resistant Organisms: MRSA Date of last positivie culture/infection: 09/03/23 MDRO Source:: Groin Past Surgical History: Bowel Resection Additional Past Surgical History / Comment(s): IVC FILTER 2014. ileostomy. wound vac Past Anesthesia/Blood Transfusion Reactions: No Reported Reaction Past Psychological History: Depression Smoking Status: Current every day smoker, Vaper Past Alcohol Use History: None Reported Past Drug Use History: None Reported General Exam Limitations: no limitations General appearance: alert, in no apparent distress Eye exam: Present: normal appearance Neck exam: Present: normal inspection Respiratory exam: Present: normal lung sounds bilaterally Cardiovascular Exam: Present: regular rate GI/Abdominal exam: Present: soft (Ostomy in the left lower quadrant. Area surrounding does appear to be distended and is tender to palpation however no overlying skin changes.), other (Stoma is pink, patent, productive. No necrosis.) Neurological exam: Present: alert, oriented X3 Skin exam: Present: warm, dry Course Vital Signs 02/13/24 02/14/24 23:50 01:53 Temperature 98.3 F Pulse Rate 104 H 92 Respiratory 18 16 Rate Blood Pressure 139/94 120/83 O2 Sat by Pulse 95 99 Oximetry Procedures - Rydal Protocol (Time Out) Nurse: Obdulia Uribe Medical Decision Making - Medical Decision Making Was pt. sent in by a medical professional or institution (, [facility], [facility], urgent care, hospital, or jail...) When possible be specific @ -No Did you speak to anyone other than the patient for history (EMS, parent, family, police, friend...)? What history was obtained from this source @ -No Did you review nursing and triage notes (agree or disagree)? Why? @ -I reviewed and agree with nursing and triage notes Were old charts reviewed (outside hosp., previous admission, EMS record, old EKG, old radiological studies, urgent care reports/EKG's, jail records)? Report findings @ -Reviewed prior charts. Initial Cj procedure with colostomy performed by Dr. Lewis. Differential Diagnosis (chest pain, altered mental status, abdominal pain women, abdominal pain men, vaginal bleeding, weakness, fever, dyspnea, syncope, headache, dizziness, GI bleed, back pain, seizure, CVA, palpatations, mental health, musculoskeletal)? @ -Differential Abdominal Pain Women: Appendicitis, Cholecystitis, diverticulosis, ischemic bowel, pancreatitis, hepatitis, UTI, gastroenteritis, AAA, incarcerated hernia, bowel obstruction, constipation, inflammatory bowel, hepatitis, peptic ulcer disease, splenic infarction, perforated viscus, vulvitis, ovarian torsion, PID, kidney stone, placenta abruption, this is not meant to be an all-inclusive list EKG interpreted by me (3pts min.). @ -None X-rays interpreted by me (1pt min.). @ -None done CT interpreted by me (1pt min.). @ -CT abdomen pelvis interpreted me showing multifaceted ventral abdominal wall hernia with associated parastomal hernia which measures 7.8 x 6.3 cm. U/S interpreted by me (1pt. min.). @ -None done What testing was considered but not performed or refused? (CT, X-rays, U/S, labs)? Why? @ -None What meds were considered but not given or refused? Why? @ -None Did you discuss the management of the patient with other professionals (professionals i.e. , PA, [facility], lab, RT, psych nurse, social services manager, vice president of talent acquisition, teacher, safety officer, spring encaser)? Give summary @ -No Was smoking cessation discussed for >3mins.? @ -No Was critical care preformed (if so, how long)? @ -No Were there social determinants of health that impacted care today? How? (Homelessness, low income, unemployed, alcoholism, drug addiction, transportation, low edu. Level, literacy, decrease access to med. care, [facility], rehab)? @ -No Was there de-escalation of care discussed even if they declined (Discuss DNR or withdrawal of care, Hospice)? DNR status @ -No What co-morbidities impacted this encounter? (DM, HTN, Smoking, COPD, CAD, Cancer, CVA, ARF, Chemo, Hep., AIDS, mental health diagnosis, sleep apnea, morbid obesity)? @ -None Was patient admitted / discharged? Hospital course, mention meds given and route, prescriptions, significant lab abnormalities, going to OR and other pertinent info. @ -Discharge 53-year-old female presenting to the ED with complaints of abdominal pain. Patient states that this has been ongoing for a while and is following with Dr. Jean for this. Notes that she has a known hernia of this area that is pending repair. Laboratory studies reviewed. Labs do show lactic acid 2.[address] abdomen pelvis did demonstrate peristomal hernia measuring 7.8 x 6.3 cm. Stoma was visualized on examination and is pink, patent, and productive. There is no color change or necrosis. Patient discharged home in stable condition with instructions to follow-up with Dr. Jean with general surgery or Dr. Lewis Undiagnosed new problem with uncertain prognosis? @ -No Drug Therapy requiring intensive monitoring for toxicity (Heparin, Nitro, Insulin, Cardizem)? @ -No Were any procedures done? @ -No Diagnosis/symptom? @ -Parastomal hernia Acute, or Chronic, or Acute on Chronic? @ -Chronic Uncomplicated (without systemic symptoms) or Complicated (systemic symptoms)? @ -Uncomplicated Side effects of treatment? @ -No Exacerbation, Progression, or Severe Exacerbation? @ -No Poses a threat to life or bodily function? How? (Chest pain, USA, IA, pneumonia, PE, COPD, DKA, ARF, appy, cholecystitis, CVA, Diverticulitis, Homicidal, Suicidal, threat to staff... and all critical care pts) @ -Unlikely at this time - Lab Data Result diagrams: 02/14/24 00:56 02/14/24 00:56 Lab Results 02/14/24 02/14/24 02/14/24 Range/Units 00:56 00:56 00:56 WBC 10.1 (3.8-10.6) k/uL RBC 4.66 (3.80-5.40) m/uL Hgb 14.2 (11.4-16.0) gm/dL Hct 43.3 (34.0-46.0) % MCV 92.9 (80.0-100.0) fL MCH 30.5 (25.0-35.0) pg MCHC 32.8 (31.0-37.0) g/dL RDW 14.8 (11.5-15.5) % Plt Count 215 (150-450) k/uL MPV 8.4 Neutrophils % 67 % Lymphocytes % 24 % Monocytes % 6 % Eosinophils % 2 % Basophils % 1 % Neutrophils # 6.8 (1.3-7.7) k/uL Lymphocytes # 2.4 (1.0-4.8) k/uL Monocytes # 0.6 (0-1.0) k/uL Eosinophils # 0.2 (0-0.7) k/uL Basophils # 0.1 (0-0.2) k/uL Sodium 137 (137-145) mmol/L Potassium 4.3 (3.5-5.1) mmol/L Chloride 108 H (98-107) mmol/L Carbon Dioxide 19 L (22-30) mmol/L Anion Gap 10 mmol/L BUN 24 H (7-17) mg/dL Creatinine 0.74 (0.52-1.04) mg/dL Est GFR (CKD-EPI)AfAm >90 (>60 ml/min/1.73 sqM) Est GFR (CKD-EPI)NonAf >90 (>60 ml/min/1.73 sqM) Glucose 299 H (74-99) mg/dL Lactic Ac Sepsis Rflx Plasma Lactic Acid Kyrie (0.7-2.0) mmol/L Calcium 9.5 (8.4-10.2) mg/dL Total Bilirubin 0.8 (0.2-1.3) mg/dL AST 36 (14-36) U/L ALT 46 H (4-34) U/L Alkaline Phosphatase 123 (38-126) U/L Total Protein 7.5 (6.3-8.2) g/dL Albumin 4.6 (3.5-5.0) g/dL Amylase 68 (30-110) U/L Lipase 172 (23-300) U/L Urine Color Colorless Urine Appearance Clear (Clear) Urine pH 5.5 (5.0-8.0) Ur Specific Carlton 1.033 (1.001-1.035) Urine Protein Negative (Negative) Urine Glucose (UA) 4+ H (Negative) Urine Ketones 1+ H (Negative) Urine Blood Negative (Negative) Urine Nitrite Negative (Negative) Urine Bilirubin Negative (Negative) Urine Urobilinogen <2.0 (<2.0) mg/dL Ur Leukocyte Esterase Negative (Negative) 02/14/24 02/14/24 Range/Units 01:53 02:51 WBC (3.8-10.6) k/uL RBC (3.80-5.40) m/uL Hgb (11.4-16.0) gm/dL Hct (34.0-46.0) % MCV (80.0-100.0) fL MCH (25.0-35.0) pg MCHC (31.0-37.0) g/dL RDW (11.5-15.5) % Plt Count (150-450) k/uL MPV Neutrophils % % Lymphocytes % % Monocytes % % Eosinophils % % Basophils % % Neutrophils # (1.3-7.7) k/uL Lymphocytes # (1.0-4.8) k/uL Monocytes # (0-1.0) k/uL Eosinophils # (0-0.7) k/uL Basophils # (0-0.2) k/uL Sodium (137-145) mmol/L Potassium (3.5-5.1) mmol/L Chloride (98-107) mmol/L Carbon Dioxide (22-30) mmol/L Anion Gap mmol/L BUN (7-17) mg/dL Creatinine (0.52-1.04) mg/dL Est GFR (CKD-EPI)AfAm (>60 ml/min/1.73 sqM) Est GFR (CKD-EPI)NonAf (>60 ml/min/1.73 sqM) Glucose (74-99) mg/dL Lactic Ac Sepsis Rflx Y Plasma Lactic Acid Kyrie 2.4 H* (0.7-2.0) mmol/L Calcium (8.4-10.2) mg/dL Total Bilirubin (0.2-1.3) mg/dL AST (14-36) U/L ALT (4-34) U/L Alkaline Phosphatase (38-126) U/L Total Protein (6.3-8.2) g/dL Albumin (3.5-5.0) g/dL Amylase (30-110) U/L Lipase (23-300) U/L Urine Color Urine Appearance (Clear) Urine pH (5.0-8.0) Ur Specific Carlton (1.001-1.035) Urine Protein (Negative) Urine Glucose (UA) (Negative) Urine Ketones (Negative) Urine Blood (Negative) Urine Nitrite (Negative) Urine Bilirubin (Negative) Urine Urobilinogen (<2.0) mg/dL Ur Leukocyte Esterase (Negative) Disposition Clinical Impression: Peristomal hernia Disposition: HOME SELF-CARE Condition: Good Additional Instructions: Please return to the Emergency Department if symptoms worsen or any other concerns. Please follow-up with Dr. Jean or Dr. Lewis of general surgery. Prescriptions: Acetaminophen Tab [Tylenol] 500 mg PO Q6H PRN #60 tablet PRN Reason: Pain Is patient prescribed a controlled substance at d/c from ED?: No Referrals: None,Stated [Primary Care Provider] - 1-2 days Time of Disposition: 05:20
[2024-02-14] MEDS: SODIUM CHLORIDE 0.9% 1,000 ML IV STA (03:04)
--- NOTE | 2024-02-14 04:50 | CT ---
EXAM: CT Abdomen and Pelvis With Intravenous Contrast CLINICAL HISTORY: ITS.REASON CT Reason: Hx ostomy LLQ. LLQ swelling and pain TECHNIQUE: Axial computed tomography images of the abdomen and pelvis with intravenous contrast. CTDI is 20.7 mGy and DLP is 1091.3 mGy-cm. This CT exam was performed using one or more of the following dose reduction techniques: automated exposure control, adjustment of the mA and/or kV according to patient size, and/or use of iterative reconstruction technique. COMPARISON: CT abdomen pelvis 01/23/2024. FINDINGS: Lung bases: Unremarkable. No mass. No consolidation. ABDOMEN: Liver: Hepatic steatosis. Gallbladder and bile ducts: Contracted gallbladder. No calcified stones. No ductal dilation. Pancreas: Unremarkable. No mass. No ductal dilation. Spleen: Unremarkable. No splenomegaly. Adrenals: Unremarkable. No mass. Kidneys and ureters: Unremarkable. No solid mass. No hydronephrosis. Stomach and bowel: Partial colectomy. No obstruction. PELVIS: Appendix: See above. Bladder: Unremarkable. No mass. Reproductive: Left adnexal cystic lesion measures 2.5 x 2.4 cm. ABDOMEN and PELVIS: Intraperitoneal space: Unremarkable. No free air. No significant fluid collection. Bones/joints: Degenerative changes of the spine. No acute fracture. No dislocation. Soft tissues: Multifaceted ventral abdominal wall hernia with associated parastomal hernia which measures approximately 7.8 x 6.3 cm. Left lower quadrant colostomy. Vasculature: IVC filter. Atherosclerotic changes of the aorta. No abdominal aortic aneurysm. Lymph nodes: Unremarkable. No enlarged lymph nodes. IMPRESSION: 1. IVC filter. 2. Multifaceted ventral abdominal wall hernia with associated parastomal hernia which measures approximately 7.8 x 6.3 cm. Left lower quadrant colostomy. 3. Partial colectomy.
[2024-02-14 05:54] VITALS: BP 140/94; PULSE 89; RESP 18
== END 2024-02-14 05:56 | disposition home or self-care (01) ==
LOC: EC 23:24
DX: K43.5 Parastomal hernia without obstruction or gangrene (principal); F17.290 Nicotine dependence, other tobacco product, uncomplicated
CPT/HCPCS: 96374; 96376; 96361 ×3; 99285; 36415; 80053; 82150; 83605; 83690; 85025; 81003; 74177; J1170 ×2; 99284

== ENCOUNTER → 2024-03-21 | Outpatient (CLI) | payer MEDICARE, OTHER ==
--- NOTE | 2024-03-21 14:43 | CTL ---
EXAMINATION TYPE: CT Low Dose Lung DATE OF EXAM ORDERED: 03/21/2024 HISTORY: Nicotine dependence, current smoker, 35 pack-year history. Lung cancer screening CT DLP: 74.[address] CTDI: 2.1 mGy Automated exposure control for dose reduction was used. SCREENING VISIT: First screening visit COMPARISON: CT abdomen and pelvis 01/23/2024 TECHNIQUE: Low dose computed tomography scan was performed through the chest at 1 mm thick sections a nd reconstructed images in multiple planes at 1 mm and [address] DIAGNOSTIC QUALITY: Satisfactory FINDINGS: Nodules: Anterior left upper lobe 2.3 mm solid pulmonary nodule (series 6, image 26). LUNGS: COPD: Severity: Mild centrilobular emphysematous changes. Most pronounced in the right upper lobe. Fibrosis: Severity: None Lymph nodes: None Other findings: Linear scarring and/or atelectasis within the right middle lobe. RIGHT PLEURAL SPACE: Effusion: None Calcification: None Thickening: None Pneumothorax: None LEFT PLEURAL SPACE: Effusion: None Calcification: None Thickening: None Pneumothorax: None HEART: Heart Size: Normal Coronary Calcification: None Pericardial Effusion: None OTHER FINDINGS: Upper abdomen: Liver is diffusely hypoattenuating. Bony thorax: None Supraclavicular region: None Other: None IMPRESSION: 1. Left upper lobe 2.6 mm pulmonary nodule. 2. Mild COPD changes. 3. Hepatic steatosis. CT LUNG RAD AND CT CHEST RECOMMENDATION: Lung-Rad 2 Benign Appearance or Behavior: Continue annual sc reening with LDCT in 12 months. S Modifier (other clinically significant findings): None
--- NOTE | 2024-03-24 09:30 | MM ---
Reason for Exam: Screening (asymptomatic). Risk Values: Lelo 5 year model risk: 0.7%. NCI Lifetime model risk: 5.9%. Tissue Density: The breasts are heterogeneously dense, which may obscure small masses. Findings: Analyzed By CAD. There is no suspicious group of microcalcifications or new suspicious mass in either breast. Layering calcifications right breast are felt to reflect milk of calcium. Overall Assessment: Benign, BI-RAD 2 Management: Screening Mammogram of both breasts in 1 year. . Patient should continue monthly self-breast exams. A clinical breast exam by your physician is recommended on an annual basis. This exam should not preclude additional follow-up of suspicious palpable abnormalities. Note on Lelo scores and lifetime risk: 1. A Lelo score greater than 3% is considered moderate risk. If this is the case, consider specialist referral to assess eligibility for a risk reducing agent. 2. If overall lifetime risk for the development of breast cancer is 20% or higher, the patient may qualify for future screening with alternating mammogram and breast MRI. Electronically signed and approved by: Javi Tierney M.D. Radiologis
== END | disposition home or self-care (01) ==
LOC: RADMAMWWP 03-12 13:53
PROVIDERS: ATTEND Pediatrics
DX: Z12.31 Encounter for screening mammogram for malignant neoplasm of breast (principal); Z12.2 Encounter for screening for malignant neoplasm of respiratory organs; R92.333 Mammographic heterogeneous density, bilateral breasts; R91.1 Solitary pulmonary nodule; J44.9 Chronic obstructive pulmonary disease, unspecified; K76.0 Fatty (change of) liver, not elsewhere classified
CPT/HCPCS: 71271; 77063; 77067

== ENCOUNTER 2024-05-02 21:24 | Observation (INO) | payer MEDICARE, OTHER ==
--- NOTE | 2024-05-02 22:36 | ED ---
Abdominal Pain HPI - General Chief Complaint: Abdominal Pain Stated Complaint: Abd Pain Source: patient, RN notes reviewed, old records reviewed Mode of arrival: wheelchair Limitations: physical limitation - History of Present Illness Initial Comments: QN-54 female to ER for evaluation. Patient comes in for history of colostomy history of diarrhea history of watery diarrhea and overall not feeling well for 3 days now. This is a 54-year-old female to the ER for evaluation of diarrhea colostomy diarrhea with chronic surgical history. Patient is presenting with s significan t pain to her abdomen and area of colostomy. Patient is feeling weak fatigued and overall not feeling well this been increasing for the last 3 days MD Complaint: abdominal pain -: days(s) (3) Location: diffuse Quality: sharp Consistency: constant Improves With: nothing Worsens With: nothing Associated Symptoms: nausea, vomiting Treatments Prior to Arrival: other (0) - Related Data Home Medications Medication Instructions Recorded Confirmed Insulin Glargine,Hum.rec.anlog 42 unit SQ DAILY 08/04/21 05/19/24 [Lantus Solostar Pen] hydroCHLOROthiazide [Hydrodiuril] 12.5 mg PO DAILY 08/04/21 05/19/24 busPIRone HCL 15 mg PO TID 03/14/23 05/19/24 traZODone HCL 150 mg PO HS 03/14/23 05/19/24 Atorvastatin [Lipitor] 80 mg PO DAILY 08/07/23 05/19/24 HYDROcodone/APAP 10-325MG [[place] 1 tab PO Q12H PRN 08/07/23 05/19/24 10-325] Apixaban [Eliquis] 5 mg PO BID 05/03/24 05/19/24 Dapagliflozin Propanediol [Farxiga] 5 mg PO DAILY 05/03/24 05/19/24 Ezetimibe [Zetia] 10 mg PO DAILY 05/03/24 05/19/24 Famotidine 40 mg PO DAILY 05/03/24 05/19/24 Venlafaxine HCl [Effexor XR] 150 mg PO DAILY 05/03/24 05/19/24 cloNIDine HCL 0.05 mg PO BID 05/03/24 05/19/24 lisinopriL 30 mg PO DAILY 05/03/24 05/19/24 Previous Rx's Medication Instructions Recorded Gabapentin 800 mg PO TID 3 Days #9 tab 07/12/23 Allergies Allergy/AdvReac Type Severity Reaction Status Date / Time No Known Allergies Allergy Verified 05/03/24 13:13 Review of Systems ROS Statement: Those systems with pertinent positive or pertinent negative responses have been documented in the HPI. ROS Other: All systems not noted in ROS Statement are negative. Past Medical History Past Medical History: CVA/TIA, Diabetes Mellitus, Hyperlipidemia, Hypertension Additional Past Medical History / Comment(s): expressive aphasia difficult to communicate, cva 2020 History of Any Multi-Drug Resistant Organisms: MRSA Date of last positivie culture/infection: 09/03/23 MDRO Source:: Groin Past Surgical History: Bowel Resection Additional Past Surgical History / Comment(s): IVC FILTER 2014. ileostomy. wound vac Past Anesthesia/Blood Transfusion Reactions: No Reported Reaction Past Psychological History: Depression Smoking Status: Current every day smoker, Vaper Past Alcohol Use History: None Reported Past Drug Use History: None Reported General Exam Limitations: physical limitation General appearance: alert, in no apparent distress, anxious Head exam: Present: atraumatic, normocephalic, normal inspection Eye exam: Present: normal appearance, PERRL, EOMI. Absent: scleral icterus, con junctival injection, periorbital swelling ENT exam: Present: normal exam, mucous membranes moist Neck exam: Present: normal inspection. Absent: tenderness, meningismus, lymphadenopathy Respiratory exam: Present: normal lung sounds bilaterally. Absent: respiratory distress, wheezes, rales, rhonchi, stridor Cardiovascular Exam: Present: regular rate, normal rhythm, normal heart sounds. Absent: systolic murmur, diastolic murmur, rubs, gallop, clicks GI/Abdominal exam: Present: soft, normal bowel sounds. Absent: distended, tenderness, guarding, rebound, rigid Extremities exam: Present: normal inspection, full ROM, normal capillary refill. Absent: tenderness, pedal edema, joint swelling, calf tenderness Back exam: Present: normal inspection Neurological exam: Present: alert, oriented X3, CN II-XII intact Psychiatric exam: Present: normal affect, normal mood Skin exam: Present: warm, dry, intact, normal color. Absent: rash Course Vital Signs 05/02/24 05/03/24 05/03/24 21:43 03:04 07:04 Temperature 97.8 F 97.9 F Pulse Rate 88 90 87 Respiratory 16 17 18 Rate Blood Pressure 152/88 160/96 145/97 O2 Sat by Pulse 98 98 96 Oximetry - Reevaluation(s) Reevaluation #1: 05/02/24 22:35 QN completed by myself Dr Canseco Reevaluation #2: Patient symptoms improved here in the ER Reevaluation #3: Patient informed of results questions answered Reevaluation #4: Was pt. sent in by a medical professional or institution (, [facility], [employer], urgent care, hospital, or penitentiary...) When possible be specific @ -no Did you speak to anyone other than the patient for history (EMS, parent, family, police, friend...)? What history was obtained from this source @ -no Did you review nursing and triage notes (agree or disagree)? Why? @ -agree Are old charts reviewed (outside hosp., previous admission, EMS record, old EKG, old radiological studies, urgent care reports/EKG's, penitentiary records)? Report findings @ -yes Differential Diagnosis (chest pain, altered mental status, abdominal pain women, abdominal pain men, vaginal bleeding, weakness, fever, dyspnea, syncope, headache, dizziness, GI bleed, back pain, seizure, CVA, palpatations, mental h ealth, musculoskeletal)? @ -prior EKG interpreted by me (3pts min.). @ -no X-rays interpreted by me (1pt min.). @ -no CT interpreted by me (1pt min.). @ -Yes positive for parastomal hernia U/S interpreted by me (1pt. min.). @ -no What testing was considered but not performed or refused? (CT, X-rays, U/S, labs)? Why? @ -none What meds were considered but not given or refused? Why? @ -none Did you discuss the management of the patient with other professionals (professionals i.e. , [facility], [employer], lab, RT, psych nurse, director of social services, trial lawyer, teacher, special technical operations officer, case reviewer)? Give summary @ -no Was smoking cessation discussed for >3mins.? @ -no Was critical care preformed (if so, how long)? @ -no Were there social determinants of health that impacted care today? How? (Homelessness, low income, unemployed, alcoholism, drug addiction, transportation, low edu. Level, literacy, decrease access to med. care, retirement, rehab)? @ -none Was there de-escalation of care discussed even if they declined (Discuss DNR or withdrawal of care, Hospice)? DNR status @ -no What co-morbidities impacted this encounter? (DM, HTN, Smoking, COPD, CAD, Cancer, CVA, ARF, Chemo, Hep., AIDS, mental health diagnosis, sleep apnea, morbid obesity)? @ -none Was patient admitted / discharged? Hospital course, mention meds given and route, prescriptions, significant lab abnormalities, going to OR and other pertinent info. @ - 54 female to ER for evaluation today. [facility] for evaluation regards to abdominal pain severe patient will be admitted for surgical evaluation regarding parastomal hernia Admitted parastomal hernia Undiagnosed new problem with uncertain prognosis? @ -no Drug Therapy requiring intensive monitoring for toxicity (Heparin, Nitro, Insulin, Cardizem)? @ -no Were any procedures done? @ -no Diagnosis/symptom? @ -Parastomal hernia Acute, or Chronic, or Acute on Chronic? @ -Acute Uncomplicated (without systemic symptoms) or Complicated (systemic symptoms)? @ -Complicated Side effects of treatment? @ -no Exacerbation, Progression, or Severe Exacerbation? @ -exacerbation Poses a threat to life or bodily function? How? (Chest pain, USA, AR, pneumonia, PE, COPD, DKA, ARF, appy, cholecystitis, CVA, Diverticulitis, Homicidal, Suicidal, threat to staff... and all critical care pts) @ -yes with need for surgical intervention Reevaluation #5: Differential Abdominal Pain Women: Appendicitis, Cholecystitis, diverticulosis, ischemic bowel, pancreatitis, hepatitis, UTI, gastroenteritis, AAA, incarcerated hernia, bowel obstruction, constipation, inflammatory bowel, hepatitis, peptic ulcer disease, splenic infarction, perforated viscus, vulvitis, ovarian torsion, PID, kidney stone, placenta abruption, this is not meant to be an all-inclusive list - Consultations Consultation #1: Spoke with sound who agrees to admit this patient Medical Decision Making - Medical Decision Making 54 female to ER for evaluation today. [facility] regards to abdominal pain severe patient will be admitted for surgical evaluation radha madrid parastomal hernia - Lab Data Result diagrams: 05/05/24 05:41 05/05/24 05:41 Lab Results 05/03/24 05/03/24 Range/Units 01:51 01:51 WBC 9.3 (3.8-10.6) k/uL RBC 4.78 (3.80-5.40) m/uL Hgb 14.9 (11.4-16.0) gm/dL Hct 43.6 (34.0-46.0) % MCV 91.0 (80.0-100.0) fL MCH 31.2 (25.0-35.0) pg MCHC 34.3 (31.0-37.0) g/dL RDW 13.9 (11.5-15.5) % Plt Count 179 (150-450) k/uL MPV 8.6 Neutrophils % 66 % Lymphocytes % 24 % Monocytes % 5 % Eosinophils % 2 % Basophils % 1 % Neutrophils # 6.2 (1.3-7.7) k/uL Lymphocytes # 2.2 (1.0-4.8) k/uL Monocytes # 0.5 (0-1.0) k/uL Eosinophils # 0.2 (0-0.7) k/uL Basophils # 0.1 (0-0.2) k/uL Sodium 133 L (137-145) mmol/L Potassium 5.0 (3.5-5.1) mmol/L Chloride 101 (98-107) mmol/L Carbon Dioxide 20 L (22-30) mmol/L Anion Gap 12 mmol/L BUN 25 H (7-17) mg/dL Creatinine 0.46 L (0.52-1.04) mg/dL Est GFR (CKD-EPI)AfAm >90 (>60 ml/min/1.73 sqM) Est GFR (CKD-EPI)NonAf >90 (>60 ml/min/1.73 sqM) Glucose 249 H (74-99) mg/dL Calcium 9.5 (8.4-10.2) mg/dL Phosphorus 4.5 (2.5-4.5) mg/dL Magnesium 1.7 (1.6-2.3) mg/dL Total Bilirubin 1.1 (0.2-1.3) mg/dL AST 42 H (14-36) U/L ALT 39 H (4-34) U/L Alkaline Phosphatase 116 (38-126) U/L Total Protein 7.8 (6.3-8.2) g/dL Albumin 4.4 (3.5-5.0) g/dL Amylase 71 (30-110) U/L Lipase 166 (23-300) U/L - Radiology Data Radiology results: report reviewed (CT abdomen pelvis positive for parastomal hernia), image reviewed Disposition Clinical Impression: Abdominal pain, Parastomal hernia Disposition: ADMITTED IP TO THIS [facility] Condition: Stable Is patient prescribed a controlled substance at d/c from ED?: No Time of Disposition: 17:30
--- NOTE | 2024-05-03 01:23 | CT ---
EXAM: CT Abdomen and Pelvis Without Intravenous Contrast CLINICAL HISTORY: ITS.REASON CT Reason: nvd TECHNIQUE: Axial computed tomography images of the abdomen and pelvis without intravenous contrast. CTDI is 10.5 mGy and DLP is 597.4 mGy-cm. This CT exam was performed using one or more of the following dose reduction techniques: automated exposure control, adjustment of the mA and/or kV according to patient size, and/or use of iterative reconstruction technique. COMPARISON: No relevant prior studies available. FINDINGS: Lung bases: Unremarkable. No mass. No consolidation. ABDOMEN: Liver: Hepatic steatosis. Gallbladder and bile ducts: Unremarkable. No calcified stones. No ductal dilation. Pancreas: Unremarkable. No ductal dilation. Spleen: Unremarkable. No splenomegaly. Adrenals: Unremarkable. No mass. Kidneys and ureters: Unremarkable. No hydronephrosis, nephrolithiasis, or obstructive uropathy. Stomach and bowel: Partial colectomy. LEFT lower quadrant colostomy, with parastomal hernia measuring approximately 10.7 x 7.0 cm. Moderate diverticulosis. No bowel obstruction. No free air. PELVIS: Appendix: See above. Bladder: Unremarkable. No stones. Reproductive: LEFT adnexal cystic lesion measures 3.9 x 3.7 cm. ABDOMEN and PELVIS: Intraperitoneal space: See above. Bones/joints: Degenerative changes of the spine. No acute fracture. No dislocation. Soft tissues: Ventral abdominal hernia which is contiguous with the parastomal hernia. Vasculature: IVC filter. Atherosclerotic changes of the aorta. No abdominal aortic aneurysm. Lymph nodes: Unremarkable. No enlarged lymph nodes. IMPRESSION: 1. No hydronephrosis, nephrolithiasis, or obstructive uropathy. 2. LEFT adnexal cystic lesion measures 3.9 x 3.7 cm. 3. Hepatic steatosis. 4. Partial colectomy. LEFT lower quadrant colostomy, with parastomal hernia measuring approximately 10.7 x 7.0 cm. Moderate diverticulosis. No bowel obstruction. No free air.
[2024-05-03 03:36] LABS: Basophils # (A) 0.1 k/uL (0-0.2); Basophils % (A) 1 %; Eosinophils # (A) 0.2 k/uL (0-0.7); Eosinophils % (A) 2 %; HCT 43.6 % (34.0-46.0); HGB 14.9 gm/dL (11.4-16.0); Lymphocytes # (A) 2.2 k/uL (1.0-4.8); Lymphocytes % (A) 24 %; MCH 31.2 pg (25.0-35.0); MCHC 34.3 g/dL (31.0-37.0); Mean Platelet Volume 8.6; Monocytes # (A) 0.5 k/uL (0-1.0); Monocytes % (A) 5 %; Neutrophils # (A) 6.2 k/uL (1.3-7.7); Neutrophils % (A) 66 %; Platelet Count 179 k/uL (150-450); RBC 4.78 m/uL (3.80-5.40); RDW 13.9 % (11.5-15.5); WBC 9.3 k/uL (3.8-10.6)
[2024-05-03 03:47] LABS: ALT 39 U/L (4-34); AST 42 U/L (14-36); African American GFR (CKD) >90 (>60 ml/min/1.73 sqM); Albumin 4.4 g/dL (3.5-5.0); Alkaline Phosphatase 116 U/L (38-126); Amylase 71 U/L (30-110); Anion Gap 12 mmol/L; Blood Urea Nitrogen 25 mg/dL (7-17); Calcium 9.5 mg/dL (8.4-10.2); Carbon Dioxide 20 mmol/L (22-30); Chloride 101 mmol/L (98-107); Glucose 249 mg/dL (74-99); Lipase 166 U/L (23-300); Magnesium 1.7 mg/dL (1.6-2.3); Non-African American GFR(CKD) >90 (>60 ml/min/1.73 sqM); Phosphorus 4.5 mg/dL (2.5-4.5); Sodium 133 mmol/L (137-145); Total Bilirubin 1.1 mg/dL (0.2-1.3); Total Protein 7.8 g/dL (6.3-8.2)
[2024-05-03] MEDS ORDERED: NALOXONE 0.4 MG/ML 1 ML VIAL IV PRN (05:32)
[2024-05-03] MEDS ORDERED: ONDANSETRON 4 MG/2 ML VIAL IVP PRN (05:32)
[2024-05-03 05:49] LABS: Appearance,Urine Cloudy (Clear); Bacteria,Urine Occasional /hpf; Bilirubin,Urine Negative (Negative); Blood,Urine Negative (Negative); Color,Urine Light Yellow; Glucose,Urine (UA) 3+ (Negative); Ketones,Urine Trace (Negative); Leukocyte Esterase,Urine Negative (Negative); Mucus,Urine Rare /hpf; Nitrite,Urine Negative (Negative); Protein,Urine Negative (Negative); RBC,Urine <1 /hpf (0-5); Specific Gravity,Urine 1.027 (1.001-1.035); Squamous Epithelial Cell,Urine 12 /hpf (0-4); Urobilinogen,Urine <2.0 mg/dL (<2.0); WBC,Urine 1 /hpf (0-5)
[2024-05-03] MEDS: SODIUM CHLORIDE 0.9% 1,000 ML IV STA (07:08)
[2024-05-03] MEDS: HYDROmorphone 1 MG/ML 1 ML SYRINGE IVP STA (07:16)
[2024-05-03] MEDS ORDERED: DEXTROSE 50% SYRINGE 50 ML IVP PRN ×2 (07:33)
[2024-05-03 08:28] LABS: Glucose,Whole Blood 219 mg/dL (70-110)
[2024-05-03] MEDS: PANTOPRAZOLE 40 MG/10 ML VIAL IV SCH (09:07)
[2024-05-03] MEDS: ENOXAPARIN 40 MG/0.4 ML SYRINGE SQ SCH (09:07)
[2024-05-03] MEDS: MAGNESIUM SULFATE-D5W PMX 1 GM in DEXTROSE/WATER 1 100ML.BAG IVPB SCH (09:08)
[2024-05-03] MEDS: INSULIN ASPART (NovoLOG) 100 UNIT/ML VIAL SQ SCH (09:10)
[2024-05-03] MEDS: SODIUM CHLORIDE 0.9% 1,000 ML IV SCH (09:11)
[2024-05-03] MEDS: MORPHINE SULFATE 4 MG/ML SYRINGE IV PRN (11:24)
[2024-05-03 12:09] LABS: Glucose,Whole Blood 186 mg/dL (70-110)
--- NOTE | 2024-05-03 13:06 | P.HPIM ---
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 She presented to the hospital with a chief complaint of abdominal pain, watery diarrhea and generalized fatigue and feeling of being unwell x 3 days. Patient seen and fully evaluated at bedside. She reports continued watery diarrhea through colostomy persistent abdominal pain. Patient reports mild nausea but denies any vomiting. She denies any fevers, chills, diaphoresis, chest pain, palpitations, shortness of breath, cough or congestion, any difficulties with or changes in urinary function, or noting any blood in colostomy bag. On arrival to our facility, patient underwent evaluation in the emergency department. Vital signs upon arrival show blood pressure 152/88, heart rate 88, respiratory rate 16, temp 97.8 F, and SpO2 of 98% on room air. Labs completed and reviewed. CBC unremarkable with WBC count of 9.3, hemoglobin of 14.9, platelet count of 179,000. BMP showing hyponatremia with sodium of 133 reviewed with bicarb of 20. Blood glucose was elevated at 249. Magnesium slightly low at 1.7. Liver profile showing elevated AST of 42 and ALT of 39. Amylase and lipase normal findings. Urinalysis contaminated specimen but negative for infection. CT abdomen and pelvis without contrast was completed showing a left adnexal cystic lesion measuring 3.9 x 3.7 cm, mild hepatic steatosis, and partial colectomy with left lower quadrant colostomy and parastomal hernia measuring approximately 10.7 x 7 cm. Patient was admitted under our services with consultation to general surgery. Review of systems: Pertinent positives and negatives as discussed in HPI, a complete review of systems was performed and all other systems are negative. Physical exam: Vital signs reviewed and stable. General: Nontoxic, no distress and appears stated age. Derm: Skin warm and dry, normal coloration for ethnicity. Head: Atraumatic, normocephalic and symmetric. Eyes: EOM's intact, no lid lag, and anicteric sclera Mouth: no lip lesions, mucus membranes moist Cardiovascular: regular rate and rhythm with normal S1S2, no murmur, positive p osterior tibial pulses bilaterally, and cap refill < 2 seconds. Lungs: Respirations even, regular, and unlabored on room air. Lungs CTA bilaterally, no rhonchi, no rales, no wheezing, and no accessory muscle usage. Abdominal: soft, diffuse tenderness throughout abdomen worse in the left lower quadrant. No guarding, no appreciable organomegaly. Large hernia lower abdomen with colostomy left lower quadrant. Stoma pink and moist. Ext: ROM intact. No gross muscle atrophy, no edema, no contractures Neuro: Mild expressive aphasia (baseline from previous CVA), face symmetrical and CN II-XII grossly intact with no other noted focal neuro deficits Psych: Alert and oriented to person, place, time, and situation. Appropriate and pleasant affect. Assessment and Plan of Care: Large Parastomal hernia Abdominal pain with diarrhea History of diverticulitis status post bowel resection end ileostomy -General Surgery consulted, appreciate recommendations -Strict n.p.o. pending evaluation by general surgeon. -IV fluid hydration with 0.9% normal saline at 130 cc/h -Symptomatic care and pain management with Zofran 4 mg IVP every 8 hours as needed for nausea and vomiting and morphine 4 mg IVP every 4 hours as needed for pain. -GI prophylaxis with Protonix. -DVT prophylaxis with Lovenox 40 mg daily. Eliquis held pending recommendations from general surgeon. Insulin-dependent diabetes mellitus with hyperglycemia -Hold long-acting insulin at this time as patient is currently n.p.o. pending evaluation by general surgeon. Patient placed on glycemic protocol with NovoLog sliding scale. History of DVTs -Patient placed on DVT prophylaxis with Lovenox 40 mg subcutaneously daily. She is on Eliquis 5 mg twice daily but this is held pending evaluation/clearance/recommendations from general surgery. Hypertension Continue clonidine 0.05 mg twice daily and lisinopril 30 mg daily. Hyperlipidemia Continue atorvastatin 80 mg daily and Zetia 10 mg daily. History of CVA with residual deficit of expressive aphasia Continue atorvastatin 80 mg daily. Patient is not on daily aspirin, but is taking Eliquis 5 mg twice daily. This is held secondary to possible need for surgery and pending general surgeons recommendations. The patient is admitted with an anticipated greater than 2 midnight stay for evaluation of large parastomal hernia CODE STATUS: Full code DVT prophylaxis: Lovenox, Eliquis held pending recommendations from general surgeon. Anticipated discharge date: Pending clinical course Anticipated discharge place: Home Patient was seen independently by Nurse Practitioner. This document was prepared using [employer] dictation software. Please allow for errors in automotive upholsterer while rare they do occur. I reviewed the documentation as provided by the NARENDRA above, who is the original author of this note. I agree with the documented assessment and plan, with the following changes: none Past Medical History Past Medical History: CVA/TIA, Diabetes Mellitus, Hyperlipidemia, Hypertension Additional Past Medical History / Comment(s): expressive aphasia difficult to communicate, cva 2020 History of Any Multi-Drug Resistant Organisms: MRSA Date of last positivie culture/infection: 09/03/23 MDRO Source:: Groin Past Surgical History: Bowel Resection Additional Past Surgical History / Comment(s): IVC FILTER 2013. ileostomy. wound vac Past Anesthesia/Blood Transfusion Reactions: No Reported Reaction Past Psychological History: Depression Smoking Status: Current every day smoker, Vaper Past Alcohol Use History: None Reported Past Drug Use History: None Reported Medications and Allergies Home Medications Medication Instructions Recorded Confirmed Type Insulin Glargine,Hum.rec.anlog 42 unit SQ DAILY 08/04/21 05/03/24 History [Lantus Solostar Pen] hydroCHLOROthiazide [Hydrodiuril] 12.5 mg PO DAILY 08/04/21 05/03/24 History busPIRone HCL 15 mg PO TID 03/14/23 05/03/24 History traZODone HCL 150 mg PO HS 03/14/23 05/03/24 History Gabapentin 800 mg PO TID 3 Days #9 tab 07/12/23 05/03/24 Rx Atorvastatin [Lipitor] 80 mg PO DAILY 08/07/23 05/03/24 History HYDROcodone/APAP 10-325MG [[place] 1 tab PO Q12H PRN 08/07/23 05/03/24 History 10-325] Apixaban [Eliquis] 5 mg PO BID 05/03/24 05/03/24 History Dapagliflozin Propanediol [Farxiga] 5 mg PO DAILY 05/03/24 05/03/24 History Ezetimibe [Zetia] 10 mg PO DAILY 05/03/24 05/03/24 History Famotidine 40 mg PO DAILY 05/03/24 05/03/24 History Venlafaxine HCl [Effexor XR] 150 mg PO DAILY 05/03/24 05/03/24 History cloNIDine HCL 0.05 mg PO BID 05/03/24 05/03/24 History lisinopriL 30 mg PO DAILY 05/03/24 05/03/24 History Allergies Allergy/AdvReac Type Severity Reaction Status Date / Time No Known Allergies Allergy Verified 05/03/24 13:13 Physical Exam Osteopathic Statement: *. No significant issues noted on an osteopathic structural exam other than those noted in the History and Physical/Consult. Vitals: Vital Signs Temp Pulse Resp BP Pulse Ox 05/03/24 07:04 87 18 145/97 96 05/03/24 03:04 97.9 F 90 17 160/96 98 05/02/24 21:43 97.8 F 88 16 152/88 98 Intake and Output 05/02/24 05/03/24 05/03/24 22:59 06:59 14:59 Other: Weight 72.575 kg Results CBC & Chem 7: 05/03/24 01:51 05/03/24 01:51 Labs: Abnormal Lab Results - Last 24 Hours (Table) 05/03/24 05/03/24 Range/Units 01:51 05:38 Sodium 133 L (137-145) mmol/L Carbon Dioxide 20 L (22-30) mmol/L BUN 25 H (7-17) mg/dL Creatinine 0.46 L (0.52-1.04) mg/dL Glucose 249 H (74-99) mg/dL AST 42 H (14-36) U/L ALT 39 H (4-34) U/L Urine Appearance Cloudy H (Clear) Urine Glucose (UA) 3+ H (Negative) Urine Ketones Trace H (Negative) Ur Squamous Epith Cells 12 H (0-4) /hpf Urine Bacteria Occasional H (None) /hpf Urine Mucus Rare H (None) /hpf
[2024-05-03] MEDS: busPIRone HCl 5 MG TAB PO SCH (15:15)
[2024-05-03] MEDS: ATORVASTATIN 80 MG TAB PO SCH (15:15)
[2024-05-03] MEDS: GABAPENTIN 400 MG CAP PO SCH (15:15)
--- NOTE | 2024-05-03 16:18 | P.GSCN ---
History of Present Illness Consult date: 05/03/24 History of present illness: CHIEF COMPLAINT: Parastomal hernia HISTORY OF PRESENT ILLNESS: The patient is a 54-year-old female with a complicated surgical history including perforated diverticulitis with descending colostomy. Patient reports she has been having pain for over 1 year of the left lower abdomen. She does smoke over a pack per day. Additionally she lives moderately at home. She reports her pain became acutely worse in the left lower abdomen. She does not eat moderate protein. Due to the severity of her left lower abdominal pain including swelling she presented to the emergency room hence her admission. She reports that she has hunger. She did have loose stools. PAST MEDICAL HISTORY: See list and reviewed PAST SURGICAL HISTORY: See list and reviewed MEDICATIONS: See list and reviewed ALLERGIES: See list and reviewed SOCIAL HISTORY: See list and reviewed FAMILY HISTORY: See list and reviewed REVIEW OF ORGAN SYSTEMS: CONSTITUTIONAL: No fevers or chills. No recent weight loss. EYES: Denies any trouble with vision. No glasses. HEENT: No difficulties with hearing. No nosebleeds. No difficulty swallowing. RESPIRATORY: Tobacco abuse disorder. More than 1 pack/day. Has IVC filter. CARDIOVASCULAR: Hypertensive heart disease with hyperlipidemia. GASTROINTESTINAL: Change in bowel habits. Perforated diverticulitis with left descending ostomy. Has gastroesophageal reflux disease. GENITOURINARY: Denies any blood in urine or increased urinary frequency. NEUROLOGICAL: History of CVA and transient ischemic attack. Has residual expressive aphasia from 2020. MUSCULOSKELETAL: Denies any back pain, stiffness or joint arthritis. SKIN: No current skin cancer. No rash. PSYCHIATRIC: Has depression. Has neuropathy. ENDOCRINE: Denies current thyroid disorders. Has poorly controlled diabetes type 2. HEME/LYMPHATIC: Denies any lumps and bumps around the neck. No recent deep venous thrombosis. On chronic blood thinners. ALLERGY/IMMUNOLOGY: No immunoglobulin therapy. No immune deficiencies. BREAST: Denies current breast lumps, pain or nipple discharge. PHYSICAL EXAM: VITALS: Reviewed CONSTITUTIONAL: Well developed and in no acute distress. EYES: Conjuctivae without sclera icterus. Extraocular movements grossly intact. HEAD, EARS, NOSE, THROAT: Moist buccal mucosa. Head is atraumatic, normocephalic. Hears conversational speech. No nasal drainage. NECK: Supple. No JV distention. No thyroidomegaly. RESPIRATORY: Non-labored respirations and equal bilateral excursions. No gross wheezes. CARDIOVASCULAR: Palpable 2+ radial pulses. ABDOMEN: Protuberant with swelling along the left descending colostomy. Minimal stool flatus in ostomy appliance. No diffuse peritonitis. Tender left lower quadrant. LYMPH: No neck lymphadenopathy. MUSCULOSKELETAL: No clubbing cyanosis or edema SKIN: Warm and well perfused with good skin turgor. NEUROLOGIC: Cranial nerves II through XII grossly intact. No focal or lateralizing signs. PSYCH: Appropriate affect. Alert and oriented to person, place and time. Displays appropriate insight. CLINCAL LABS: Reviewed. Labs sodium low 133, hyponatremia. Creatinine normal 0.49. Glucose elevated 249, hyperglycemia. AST and ALT elevated. WBC normal. Hemoglobin normal. IMAGING: Independently reviewed. CT of the abdomen pelvis independent review demonstrates parastomal hernia involving the left lower quadrant ostomy. No presence of bowel obstruction. This is my independent interpretation. Presence of diverticulosis descending colon. RADIOLOGY: Report reviewed. No hydronephrosis. RECORDS: previous old records reviewed with elective lower anterior resection May 2023 for diverticulosis. Subsequent return to the operating room June 2023 for feculent peritonitis with complications and descending ostomy. ASSESSMENT: 1. Left lower quadrant abdominal pain due to ostomy. 2. Tobacco abuse disorder 3. Diverticulosis PLAN: 1. May start low fiber diet. 2. No emergent surgical invention for nonobstructing parastomal hernia 3. Recommend glycemic control for hyperglycemia, glucose 249 with hemoglobin A1c assessment ADVANCE DIRECTIVE: CODE STATUS in chart Thank you for this kind consultation. Past Medical History Past Medical History: CVA/TIA, Diabetes Mellitus, Hyperlipidemia, Hypertension Additional Past Medical History / Comment(s): expressive aphasia difficult to communicate, cva 2019 History of Any Multi-Drug Resistant Organisms: MRSA Year Discovered:: 09/03/23 MDRO Source:: Groin Past Surgical History: Bowel Resection Additional Past Surgical History / Comment(s): IVC FILTER 2013. ileostomy. wound vac Past Anesthesia/Blood Transfusion Reactions: No Reported Reaction Past Psychological History: Depression Smoking Status: Current every day smoker, Vaper Past Alcohol Use History: None Reported Past Drug Use History: None Reported Medications and Allergies Home Medications Medication Instructions Recorded Confirmed Type Insulin Glargine,Hum.rec.anlog 42 unit SQ DAILY 08/04/21 05/03/24 History [Lantus Solostar Pen] hydroCHLOROthiazide [Hydrodiuril] 12.5 mg PO DAILY 08/04/21 05/03/24 History busPIRone HCL 15 mg PO TID 03/14/23 05/03/24 History traZODone HCL 150 mg PO HS 03/14/23 05/03/24 History Gabapentin 800 mg PO TID 3 Days #9 tab 07/12/23 05/03/24 Rx Atorvastatin [Lipitor] 80 mg PO DAILY 08/07/23 05/03/24 History HYDROcodone/APAP 10-325MG [[place] 1 tab PO Q12H PRN 08/07/23 05/03/24 History 10-325] Apixaban [Eliquis] 5 mg PO BID 05/03/24 05/03/24 History Dapagliflozin Propanediol [Farxiga] 5 mg PO DAILY 05/03/24 05/03/24 History Ezetimibe [Zetia] 10 mg PO DAILY 05/03/24 05/03/24 History Famotidine 40 mg PO DAILY 05/03/24 05/03/24 History Venlafaxine HCl [Effexor XR] 150 mg PO DAILY 05/03/24 05/03/24 History cloNIDine HCL 0.05 mg PO BID 05/03/24 05/03/24 History lisinopriL 30 mg PO DAILY 05/03/24 05/03/24 History Allergies Allergy/AdvReac Type Severity Reaction Status Date / Time No Known Allergies Allergy Verified 05/03/24 13:13 Surgical - Exam Vital Signs Temp Pulse Resp BP Pulse Ox 97.8 F 88 16 152/88 98 05/02/24 21:43 05/02/24 21:43 05/02/24 21:43 05/02/24 21:43 05/02/24 21:43 Results - Labs 05/03/24 01:51 05/03/24 01:51 Abnormal Lab Results - Last 24 Hours (Table) 05/03/24 05/03/24 05/03/24 Range/Units 01:51 05:38 08:25 Sodium 133 L (137-145) mmol/L Carbon Dioxide 20 L (22-30) mmol/L BUN 25 H (7-17) mg/dL Creatinine 0.46 L (0.52-1.04) mg/dL Glucose 249 H (74-99) mg/dL POC Glucose (mg/dL) 219 H (70-110) mg/dL AST 42 H (14-36) U/L ALT 39 H (4-34) U/L Urine Appearance Cloudy H (Clear) Urine Glucose (UA) 3+ H (Negative) Urine Ketones Trace H (Negative) Ur Squamous Epith Cells 12 H (0-4) /hpf Urine Bacteria Occasional H (None) /hpf Urine Mucus Rare H (None) /hpf 05/03/24 Range/Units 12:08 Sodium (137-145) mmol/L Carbon Dioxide (22-30) mmol/L BUN (7-17) mg/dL Creatinine (0.52-1.04) mg/dL Glucose (74-99) mg/dL POC Glucose (mg/dL) 186 H (70-110) mg/dL AST (14-36) U/L ALT (4-34) U/L Urine Appearance (Clear) Urine Glucose (UA) (Negative) Urine Ketones (Negative) Ur Squamous Epith Cells (0-4) /hpf Urine Bacteria (None) /hpf Urine Mucus (None) /hpf Diabetes panel 05/03/24 Range/Units 01:51 Sodium 133 L (137-145) mmol/L Potassium 5.0 (3.5-5.1) mmol/L Chloride 101 (98-107) mmol/L Carbon Dioxide 20 L (22-30) mmol/L BUN 25 H (7-17) mg/dL Creatinine 0.46 L (0.52-1.04) mg/dL Glucose 249 H (74-99) mg/dL Calcium 9.5 (8.4-10.2) mg/dL AST 42 H (14-36) U/L ALT 39 H (4-34) U/L Alkaline Phosphatase 116 (38-126) U/L Total Protein 7.8 (6.3-8.2) g/dL Albumin 4.4 (3.5-5.0) g/dL Calcium panel 05/03/24 Range/Units 01:51 Calcium 9.5 (8.4-10.2) mg/dL Phosphorus 4.5 (2.5-4.5) mg/dL Albumin 4.4 (3.5-5.0) g/dL Pituitary panel 05/03/24 Range/Units 01:51 Sodium 133 L (137-145) mmol/L Potassium 5.0 (3.5-5.1) mmol/L Chloride 101 (98-107) mmol/L Carbon Dioxide 20 L (22-30) mmol/L BUN 25 H (7-17) mg/dL Creatinine 0.46 L (0.52-1.04) mg/dL Glucose 249 H (74-99) mg/dL Calcium 9.5 (8.4-10.2) mg/dL Adrenal panel 05/03/24 Range/Units 01:51 Sodium 133 L (137-145) mmol/L Potassium 5.0 (3.5-5.1) mmol/L Chloride 101 (98-107) mmol/L Carbon Dioxide 20 L (22-30) mmol/L BUN 25 H (7-17) mg/dL Creatinine 0.46 L (0.52-1.04) mg/dL Glucose 249 H (74-99) mg/dL Calcium 9.5 (8.4-10.2) mg/dL Total Bilirubin 1.1 (0.2-1.3) mg/dL AST 42 H (14-36) U/L ALT 39 H (4-34) U/L Alkaline Phosphatase 116 (38-126) U/L Total Protein 7.8 (6.3-8.2) g/dL Albumin 4.4 (3.5-5.0) g/dL
[2024-05-03 17:18] LABS: Glucose,Whole Blood 145 mg/dL (70-110)
[2024-05-03 20:47] LABS: Glucose,Whole Blood 236 mg/dL (70-110)
[2024-05-03] MEDS: cloNIDine HCL 0.1 MG TAB PO SCH (21:38)
[2024-05-03] MEDS: traZODone HCL 50 MG TAB PO SCH (21:39)
[2024-05-04 07:17] LABS: Glucose,Whole Blood 167 mg/dL (70-110)
[2024-05-04] MEDS: EZETIMIBE 10 MG TAB PO SCH (08:44)
[2024-05-04] MEDS: VENLAFAXINE HCL ER 150 MG CAP PO SCH (08:44)
[2024-05-04] MEDS: lisinopriL 10 MG TAB PO SCH (08:44)
[2024-05-04] MEDS: NICOTINE 21MG/24HR PATCH TRANSDERM SCH (10:34)
[2024-05-04 12:17] LABS: Glucose,Whole Blood 193 mg/dL (70-110)
--- NOTE | 2024-05-04 12:56 | P.PN ---
Subjective Progress Note Date: 05/04/24 Hospital course: Patient is a 54-year-old female with a past medical history of insulin-dependent diabetes mellitus, CVA with residual expressive aphasia, history of DVTs on anticoagulation with Eliquis, hyperlipidemia, diverticulitis with previous bowel resection resulting in ileostomy, and depression. She presented to the hospital with a chief complaint of abdominal pain, watery diarrhea and generalized fatigue and feeling of being unwell x 3 days. On arrival to our facility, patient underwent evaluation in the emergency department. Vital signs upon arr ival show blood pressure 152/88, heart rate 88, respiratory rate 16, temp 97.8 F, and SpO2 of 98% on room air. Labs completed and reviewed. CBC unremarkable with WBC count of 9.3, hemoglobin of 14.9, platelet count of 179,000. BMP showing hyponatremia with sodium of 133 reviewed with bicarb of 20. Blood glucose was elevated at 249. Magnesium slightly low at 1.7. Liver profile showing elevated AST of 42 and ALT of 39. Amylase and lipase normal findings. Urinalysis contaminated specimen but negative for infection. CT abdomen and pelvis without contrast was completed showing a left adnexal cystic lesion measuring 3.9 x 3.7 cm, mild hepatic steatosis, and partial colectomy with left lower quadrant colostomy and parastomal hernia measuring approximately 10.7 x 7 cm. Patient was admitted under our services with consultation to general surgery. Physical exam: Patient was seen and fully evaluated at bedside this morning. She was sitting up on edge of bed reports moderate pain in the left lower quadrant this morning unchanged. She denies any further episodes of nausea and denies any vomiting. She reports continued episodes of watery liquid stool. Vital signs reviewed and stable. General: Nontoxic, no distress and appears stated age. Derm: Skin warm and dry, normal coloration for ethnicity. Head: Atraumatic, normocephalic and symmetric. Eyes: EOM's intact, no lid lag, and anicteric sclera Mouth: no lip lesions, mucus membranes moist Cardiovascular: regular rate and rhythm with normal S1S2, no murmur, positive posterior tibial pulses bilaterally, and cap refill < 2 seconds. Lungs: Respirations even, regular, and unlabored on room air. Lungs CTA bilaterally, no rhonchi, no rales, no wheezing, and no accessory muscle usage. Abdominal: soft, tenderness to left lower quadrant upon palpation. No guarding, no appreciable organomegaly. Large hernia lower abdomen with colostomy left lower quadrant. Stoma pink and moist. Brown liquid stool in colostomy bag. Ext: ROM intact. No gross muscle atrophy, no edema, no contractures Neuro: Mild expressive aphasia (baseline from previous CVA), face symmetrical and CN II-XII grossly intact with no other noted focal neuro deficits Psych: Alert and oriented to person, place, time, and situation. Appropriate and pleasant affect. Assessment and Plan of Care: Large Parastomal hernia Abdominal pain with diarrhea History of diverticulitis status post bowel resection end ileostomy -General Surgery consulted, appreciate recommendations -General Surgery evaluated and stating no emergent surgical intervention required for patient's nonobstructing parastomal hernia. Advanced patient's t and recommending continued monitoring. -Patient tolerating oral intake, IV fluids discontinued at this time. -Symptomatic care and pain management with Zofran 4 mg IVP every 8 hours as needed for nausea and vomiting and morphine 4 mg IVP every 4 hours as needed for pain. -GI prophylaxis with Protonix. -DVT prophylaxis with Lovenox 40 mg daily. Eliquis held pending reevaluation and recommendations from general surgeon. Insulin-dependent diabetes mellitus with hyperglycemia -Hold long-acting insulin at this time as patient is currently n.p.o. pending evaluation by general surgeon. Patient placed on glycemic protocol with NovoLog sliding scale. History of DVTs -Patient placed on DVT prophylaxis with Lovenox 40 mg subcutaneously daily. She is on Eliquis 5 mg twice daily but this is held pending evaluatio n/clearance/recommendations from general surgery. Hypertension Continue clonidine 0.05 mg twice daily and lisinopril 30 mg daily. Hyperlipidemia Continue atorvastatin 80 mg daily and Zetia 10 mg daily. History of CVA with residual deficit of expressive aphasia Continue atorvastatin 80 mg daily. Patient is not on daily aspirin, but is taking Eliquis 5 mg twice daily. This is held secondary to possible need for surgery and pending general surgeons recommendations. Nicotine dependence Order placed for nicotine patch 21 mg daily. Recommend smoking cessation. Data reviewed: Vital signs reviewed. Blood pressure 135/85, heart rate 72, respiratory rate 18, temp 97.5 F, and SpO2 of 92% on room air. CODE STATUS: Full code DVT prophylaxis: Lovenox, Eliquis held pending recommendations from general surgeon. Anticipated discharge date: Pending clinical course Anticipated discharge place: Home Patient was seen independently by Nurse Practitioner. This document was prepared using [employer] dictation software. Please allow for errors in blending coordinator while rare they do occur. I reviewed the documentation as provided by the NARENDRA above, who is the original author of this note. I agree with the documented assessment and plan, with the following changes: none Objective - Vital Signs Vital signs: Vital Signs Temp 97.5 F L 05/04/24 08:00 Pulse 72 05/04/24 08:00 Resp 18 05/04/24 08:00 BP 135/85 05/04/24 08:00 Pulse Ox 92 L 05/04/24 08:00 FiO2 Intake & Output 05/03/24 05/04/24 05/04/24 18:59 06:59 18:59 Intake Total 720 240 Balance 720 240 Weight 72.575 kg Intake: Oral 720 240 Other: Voiding Method Toilet Toilet Toilet # Voids 5 - Labs CBC & Chem 7: 05/03/24 01:51 05/03/24 01:51 Labs: Abnormal Lab Results - Last 24 Hours (Table) 05/03/24 05/03/24 05/03/24 Range/Units 12:08 17:17 20:46 POC Glucose (mg/dL) 186 H 145 H 236 H (70-110) mg/dL 05/04/24 Range/Units 07:06 POC Glucose (mg/dL) 167 H (70-110) mg/dL
--- NOTE | 2024-05-04 17:07 | P.PN ---
Subjective Progress Note Date: 05/04/24 CHIEF COMPLAINT: Parastomal hernia HISTORY OF PRESENT ILLNESS: The patient is a 54-year-old female who presents with left lower quadrant abdominal pain due to parastomal hernia. Patient is on blood thinners. Her blood thinner has been held since admission. She is seeking reversal including repair of her parastomal hernia. Patient is active smoker and poorly controlled diabetic. REVIEW OF ORGAN SYSTEMS: RESPIRATORY: Tobacco abuse disorder. More than 1 pack/day. Has IVC filter. CARDIOVASCULAR: Hypertensive heart disease with hyperlipidemia. GASTROINTESTINAL: Change in bowel habits. Perforated diverticulitis with left descending ostomy. Has gastroesophageal reflux disease. NEUROLOGICAL: History of CVA and transient ischemic attack. Has residual expressive aphasia from 2020. ENDOCRINE: Denies current thyroid disorders. Has poorly controlled diabetes type 2. HEME/LYMPHATIC: Denies any lumps and bumps around the neck. No recent deep venous thrombosis. On chronic blood thinners. PHYSICAL EXAM: VITALS: Reviewed CONSTITUTIONAL: Well developed and in no acute distress. EYES: Conjuctivae without sclera icterus. Extraocular movements grossly intact. HEAD, EARS, NOSE, THROAT: Moist buccal mucosa. Head is atraumatic, normocephalic. Hears conversational speech. No nasal drainage. RESPIRATORY: Non-labored respirations and equal bilateral excursions. No gross wheezes. CARDIOVASCULAR: Palpable 2+ radial pulses. ABDOMEN: Protuberant with swelling along the left descending colostomy. Minimal stool flatus in ostomy appliance. No diffuse peritonitis. Tender left lower quadrant. MUSCULOSKELETAL: No clubbing cyanosis or edema SKIN: Warm and well perfused with good skin turgor. NEUROLOGIC: Cranial nerves II through XII grossly intact. No focal or lateralizing signs. PSYCH: Appropriate affect. Alert and oriented to person, place and time. Displays appropriate insight. CLINCAL LABS: Reviewed. Blood sugar glucose over 200s. ASSESSMENT: 1. Left lower quadrant abdominal pain due to ostomy. 2. Tobacco abuse disorder 3. Diverticulosis PLAN: 1. Please hold her blood thinners for potential surgical invention while inpatient 2. Will make n.p.o. after midnight so she may decide on options for surgery 3. Overall, patient very high risk for surgery with active tobacco abuse disorder, poorly controlled diabetes and recent blood thinner Objective - Vital Signs Vital signs: Vital Signs Temp 98 F 05/04/24 12:47 Pulse 60 05/04/24 12:47 Resp 19 05/04/24 12:47 BP 149/96 05/04/24 12:47 Pulse Ox 96 05/04/24 12:47 FiO2 Intake & Output 05/03/24 05/04/24 05/04/24 18:59 06:59 18:59 Intake Total 720 240 640 Balance 720 240 640 Weight 72.575 kg Intake: Oral 720 240 640 Other: Voiding Method Toilet Toilet Toilet # Voids 5 - Labs CBC & Chem 7: 05/03/24 01:51 05/03/24 01:51 Labs: Abnormal Lab Results - Last 24 Hours (Table) 05/03/24 05/03/24 05/04/24 Range/Units 17:17 20:46 07:06 POC Glucose (mg/dL) 145 H 236 H 167 H (70-110) mg/dL 05/04/24 Range/Units 12:09 POC Glucose (mg/dL) 193 H (70-110) mg/dL
[2024-05-04 17:20] LABS: Glucose,Whole Blood 231 mg/dL (70-110)
[2024-05-04 19:48] VITALS: RESP 16
[2024-05-04 20:20] LABS: Glucose,Whole Blood 245 mg/dL (70-110)
[2024-05-05 06:58] LABS: Glucose,Whole Blood 236 mg/dL (70-110)
[2024-05-05 09:08] LABS: ALT 31 U/L (8-44); AST 22 U/L (13-35); Albumin 3.7 g/dL (3.8-4.9); Albumin/Globulin Ratio 1.61 Ratio (1.60-3.17); Alkaline Phosphatase 143 U/L (41-126); Blood Urea Nitrogen 12.4 mg/dL (9.0-27.0); Calcium 8.7 mg/dL (8.7-10.3); Carbon Dioxide 20.7 mmol/L (21.6-31.8); Chloride 104 mmol/L (96-109); Globulin 2.3 g/dL (1.6-3.3); Glucose 232 mg/dL (70-110); Magnesium 1.7 mg/dL (1.5-2.4); Potassium 4.2 mmol/L (3.5-5.5); Sodium 136 mmol/L (135-145); Total Bilirubin 0.5 mg/dL (0.3-1.2)
[2024-05-05] MEDS: APIXABAN 5 MG TAB PO SCH (09:34)
[2024-05-05 09:52] LABS: HCT 40.9 % (37.2-46.3); HGB 13.5 g/dL (12.0-15.0); MCH 30.7 pg (27.0-32.0); Mean Platelet Volume 11.5 FL (9.5-12.2); NRBC Per 100 WBC 0 X 10*3/uL (0.00-0.01); Platelet Count 164 X 10*3/uL (140-440); RDW 13.3 % (11.5-14.5); WBC 6.84 X 10*3/uL (4.50-10.00)
--- NOTE | 2024-05-05 11:35 | P.DS ---
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 She presented to the hospital with a chief complaint of abdominal pain, watery diarrhea and generalized fatigue and feeling of being unwell x 3 days. On arrival to our facility, patient underwent evaluation in the emergency department. Vital signs upon arrival show blood pressure 152/88, heart rate 88, respiratory rate 16, temp 97.8 F, and SpO2 of 98% on room air. Labs completed and reviewed. CBC unremarkable with WBC count of 9.3, hemoglobin of 14.9, platelet count of 179,000. BMP showing hyponatremia with sodium of 133 reviewed with bicarb of 20. Blood glucose was elevated at 249. Magnesium slightly low at 1.7. Liver profile showing elevated AST of 42 and ALT of 39. Amylase and lipase normal findings. Urinalysis contaminated specimen but negative for infection. CT abdomen and pelvis without contrast was completed showing a left adnexal cystic lesion measuring 3.9 x 3.7 cm, mild hepatic steatosis, and partial colectomy with left lower quadrant colostomy and parastomal hernia measuring approximately 10.7 x 7 cm. Patient was admitted under our services with consultation to general surgery. General surgery evaluated stating safe to resume Eliquis and regular diet. Patient to follow-up in their office on , 05/08/2024 to further discuss and possibly schedule surgical intervention. Medically, patient is stable for discharge at this time. Patient to follow-up with PCP in 1 to 2 days and with general surgery as discussed on 05/08/2024 Physical exam: Vital signs reviewed and stable. General: Nontoxic, no distress and appears stated age. Derm: Skin warm and dry, normal coloration for ethnicity. Head: Atraumatic, normocephalic and symmetric. Eyes: EOM's intact, no lid lag, and anicteric sclera Mouth: no lip lesions, mucus membranes moist Cardiovascular: regular rate and rhythm with normal S1S2, no murmur, positive posterior tibial pulses bilaterally, and cap refill < 2 seconds. Lungs: Respirations even, regular, and unlabored on room air. Lungs CTA bilaterally, no rhonchi, no rales, no wheezing, and no accessory muscle usage. Abdominal: soft, tenderness to left lower quadrant upon palpation. No guarding, no appreciable organomegaly. Large hernia lower abdomen with colostomy left lower quadrant. Stoma pink and moist. Brown liquid stool in colostomy bag. Ext: ROM intact. No gross muscle atrophy, no edema, no contractures Neuro: Mild expressive aphasia (baseline from previous CVA), face symmetrical and CN II-XII grossly intact with no other noted focal neuro deficits Psych: Alert and oriented to person, place, time, and situation. Appropriate and pleasant affect. A total of 35 minutes of time were spent preparing this complex discharge summary. Pt was discharged on 05/05/2024 at 11:27 AM. Patient was seen independently by Nurse Practitioner. This document was prepared using [employer] dictation software. Please allow for errors in marriage counselor minister while rare they do occur. I reviewed the documentation as provided by the NARENDRA above, who is the original author of this note. I agree with the documented assessment and plan, with the following changes: none Patient Condition at Discharge: Stable Plan - Discharge Summary Discharge Rx Participant: No New Discharge Prescriptions: New HYDROcodone/APAP 10-325MG [[place] 10-325] 1 tab PO Q12HR PRN 3 Days #6 tab PRN Reason: Pain Continue traZODone HCL 150 mg PO HS busPIRone HCL 15 mg PO TID Gabapentin 800 mg PO TID 3 Days #9 tab HYDROcodone/APAP 10-325MG [[place] 10-325] 1 tab PO Q12H PRN PRN Reason: Pain Apixaban [Eliquis] 5 mg PO BID Dapagliflozin Propanediol [Farxiga] 5 mg PO DAILY Famotidine 40 mg PO DAILY Ezetimibe [Zetia] 10 mg PO DAILY hydroCHLOROthiazide [Hydrodiuril] 12.5 mg PO DAILY Insulin Glargine,Hum.rec.anlog [Lantus Solostar Pen] 42 unit SQ DAILY Atorvastatin [Lipitor] 80 mg PO DAILY lisinopriL 30 mg PO DAILY cloNIDine HCL 0.05 mg PO BID Venlafaxine HCl [Effexor XR] 150 mg PO DAILY Discharge Medication List Insulin Glargine,Hum.rec.anlog [Lantus Solostar Pen] 42 unit SQ DAILY 08/04/21 [History] hydroCHLOROthiazide [Hydrodiuril] 12.5 mg PO DAILY 08/04/21 [History] busPIRone HCL 15 mg PO TID 03/14/23 [History] traZODone HCL 150 mg PO HS 03/14/23 [History] Gabapentin 800 mg PO TID 3 Days #9 tab 07/12/23 [Rx] Atorvastatin [Lipitor] 80 mg PO DAILY 08/07/23 [History] HYDROcodone/APAP 10-325MG [[place] 10-325] 1 tab PO Q12H PRN 08/07/23 [History] Apixaban [Eliquis] 5 mg PO BID 05/03/24 [History] Dapagliflozin Propanediol [Farxiga] 5 mg PO DAILY 05/03/24 [History] Ezetimibe [Zetia] 10 mg PO DAILY 05/03/24 [History] Famotidine 40 mg PO DAILY 05/03/24 [History] Venlafaxine HCl [Effexor XR] 150 mg PO DAILY 05/03/24 [History] cloNIDine HCL 0.05 mg PO BID 05/03/24 [History] lisinopriL 30 mg PO DAILY 05/03/24 [History] HYDROcodone/APAP 10-325MG [[place] 10-325] 1 tab PO Q12HR PRN 3 Days #6 tab 05/05/24 [Rx] Follow up Appointment(s)/Referral(s): Esteban Ontiveros MD [REFERRING] - 05/15/24 11:00 am (Posthospitalization follow-up and establishment of care with a PCP.) Haroon Lewis MD [STAFF PHYSICIAN] - 05/08/24 3:30 pm (Per Dr. Lewis, please call office and schedule patient appointment to see him on 05/08/24 to discuss surgical plans.) Activity/Diet/Wound Care/Special Instructions: Activity: As tolerated. Take breaks as needed. Diet: Heart healthy and carb consistent diet. Avoid salts, or foods with hidden salts such as canned or boxed foods and frozen dinners. Extra salt makes your heart work harder and traps the fluid in your body for longer. Special Instructions: Take all of your medications as directed and remember to keep all of your doctor's appointments and follow-up as needed. Resume your home Eliquis pending recommendations from your surgeon at your appointment on 05/08/2024. He will instruct you on when again to hold prior to planned surgical intervention. Thank you for allowing us to participate in your care, it was truly a pleasure having you for our patient!!! Discharge Disposition: HOME SELF-CARE
[2024-05-05 11:51] LABS: Glucose,Whole Blood 172 mg/dL (70-110)
[2024-05-05 12:44] VITALS: BP 112/80; PULSE 71; TEMP 97.5
--- NOTE | 2024-05-05 12:52 | P.PN ---
Subjective Progress Note Date: 05/05/24 CHIEF COMPLAINT: Parastomal hernia HISTORY OF PRESENT ILLNESS: Patient's ostomy is functioning. She tolerated diet yesterday. Denies any nausea or vomiting. Afebrile. WBC 6.84 PHYSICAL EXAM: VITAL SIGNS: Reviewed. GENERAL: no acute distress. ABDOMEN: Soft. Nondistended. Soft parastomal hernia. Ostomy with stool present. Mild tenderness of the parastomal hernia. Old midline incision site h ealed with small hernia that is reducible NEUROLOGIC: Alert and oriented. Cranial nerves II through XII grossly intact. ASSESSMENT: 1. Parastomal hernia PLAN: -No plans for surgery during this admission. Patient can be discharged from surgical standpoint with outpatient follow-up with Dr. Lewis -Randi to resume low fiber diet and randi to resume Eliquis for Hx of DVT Physician Digital Intern note has been reviewed by physician. Signing provider agrees with the documented findings, assessment, and plan of care. Objective - Vital Signs Vital signs: Vital Signs Temp 97.6 F 05/05/24 06:54 Pulse 72 05/05/24 06:54 Resp 16 05/05/24 06:54 BP 128/83 05/05/24 06:54 Pulse Ox 91 L 05/05/24 06:54 FiO2 Intake & Output 05/04/24 05/05/24 05/05/24 18:59 06:59 18:59 Intake Total 2260 Balance 2260 Intake: Oral 2260 Other: Voiding Method Toilet Toilet Toilet # Voids 3 3 - Labs CBC & Chem 7: 05/05/24 05:41 05/05/24 05:41 Labs: Abnormal Lab Results - Last 24 Hours (Table) 05/04/24 05/04/24 05/04/24 Range/Units 12:09 17:17 20:13 Carbon Dioxide (21.6-31.8) mmol/L Creatinine (0.6-1.5) mg/dL BUN/Creatinine Ratio (12.00-20.00) Ratio Glucose (70-110) mg/dL POC Glucose (mg/dL) 193 H 231 H 245 H (70-110) mg/dL Alkaline Phosphatase (41-126) U/L Total Protein (6.2-8.2) g/dL Albumin (3.8-4.9) g/dL 05/05/24 05/05/24 Range/Units 05:41 06:57 Carbon Dioxide 20.7 L (21.6-31.8) mmol/L Creatinine 0.5 L (0.6-1.5) mg/dL BUN/Creatinine Ratio 24.80 H (12.00-20.00) Ratio Glucose 232 H (70-110) mg/dL POC Glucose (mg/dL) 236 H (70-110) mg/dL Alkaline Phosphatase 143 H (41-126) U/L Total Protein 6.0 L (6.2-8.2) g/dL Albumin 3.7 L (3.8-4.9) g/dL
[2024-05-05] MEDS: MAGNESIUM OXIDE 400 MG TAB PO STA (12:59)
== END 2024-05-05 16:36 | disposition home or self-care (01) ==
LOC: EC 21:24 → 5NMEDONC 05-03 05:32
PROVIDERS: ADMIT Internal Medicine; ATTEND Internal Medicine
DX: K43.5 Parastomal hernia without obstruction or gangrene (principal); E11.65 Type 2 diabetes mellitus with hyperglycemia; E78.5 Hyperlipidemia, unspecified; I69.320 Aphasia following cerebral infarction; F17.290 Nicotine dependence, other tobacco product, uncomplicated; Z79.01 Long term (current) use of anticoagulants; Z79.4 Long term (current) use of insulin; Z79.84 Long term (current) use of oral hypoglycemic drugs; Z79.899 Other long term (current) drug therapy; Z86.718 Personal history of other venous thrombosis and embolism; Z93.2 Ileostomy status; Z90.49 Acquired absence of other specified parts of digestive tract; Z87.19 Personal history of other diseases of the digestive system
CPT/HCPCS: 36415; 74176; 80053; 81001; 82150; 83690; 83735; 84100; 85025; 85027; 96361; 96365; 96366; 96372; 96375; 96376; 99285

== ENCOUNTER 2024-05-26 05:33 | Inpatient (IN) | payer MEDICARE, OTHER ==
[2024-05-26] MEDS: IV FLUID CONTINUATION 1,000 ML IV ONE ×3 (05:43→09:58)
[2024-05-26] MEDS ORDERED: ONDANSETRON 4 MG/2 ML VIAL IVP PRN ×2 (05:44→10:35)
[2024-05-26] MEDS ORDERED: LIDOCAINE 1% (10MG/ML) FOR IV START INTRADERMA PRN (05:44)
[2024-05-26] MEDS: ONDANSETRON 4 MG/2 ML VIAL IVP ONE (06:18)
[2024-05-26] MEDS: SCOPOLAMINE 1 MG/72 HR PATCH TRANSDERM ONE (06:20)
[2024-05-26] MEDS: LACTATED RINGERS 1,000 ML IV SCH (06:27)
[2024-05-26] MEDS: MIDAZOLAM 2 MG/2 ML VIAL IV ONE (06:36)
[2024-05-26] MEDS ORDERED: HYDROmorphone (PF) 1 MG/ML ONE (07:07)
[2024-05-26] MEDS: metroNIDAZOLE-NS PMX 500 MG in SALINE 1 100ML.BAG IVPB PRN (07:07)
[2024-05-26] MEDS ORDERED: fentaNYL (PF) 50 MCG/ML 2 ML AMP ONE (07:07)
[2024-05-26] MEDS ORDERED: KETOROLAC 30 MG/ML 1 ML VIAL ONE (07:07)
[2024-05-26] MEDS ORDERED: LIDOCAINE 2% (PF) 20 MG/ML 5 ML VIAL ONE (07:07)
[2024-05-26] MEDS ORDERED: ROCURONIUM 10 MG/ML (5 ML VIAL) IV ONE (07:07)
[2024-05-26] MEDS ORDERED: MIDAZOLAM 2 MG/2 ML VIAL ONE (07:07)
[2024-05-26] MEDS ORDERED: SUCCINYLCHOLINE CHLORIDE 200 MG/10 ML VIAL IV ONE (07:07)
[2024-05-26] MEDS ORDERED: GLYCOPYRROLATE 0.2 MG/ML 2 ML VIAL ONE (07:07)
[2024-05-26] MEDS ORDERED: PROPOFOL 10 MG/ML 20 ML VIAL IV ONE (07:07)
[2024-05-26] MEDS ORDERED: NEOSTIGMINE 1 MG/ML 10 ML VIAL ONE (07:07)
[2024-05-26] MEDS ORDERED: NALOXONE 0.4 MG/ML 1 ML VIAL IV PRN (07:56)
[2024-05-26] MEDS: ALBUTEROL NEBULIZED 2.5 MG/3 ML INHALATION STA (10:14)
[2024-05-26 10:20] LABS: Glucose,Whole Blood 266 mg/dL (70-110)
[2024-05-26] MEDS: ROPIVACAINE 250 MG, HYDROMORPHONE (PF) 5 MG in SODIUM CHLORIDE 0.9% 200 ML EPIDURAL PRN (10:26)
[2024-05-26] MEDS ORDERED: METOCLOPRAMIDE 5 MG/ML 2 ML VIAL IVP PRN (10:35)
[2024-05-26] MEDS ORDERED: BENZOCAINE/MENTHOL LOZENG 1 EACH LOZENGE MUCOUS MEM PRN (10:35)
[2024-05-26] MEDS: HYDROmorphone 0.5 MG/0.5 ML SYRINGE IVP PRN (10:38)
--- NOTE | 2024-05-26 10:49 | P.OP ---
Date of Procedure: 05/26/24 Preoperative Diagnosis: Diverticulitis Postoperative Diagnosis: Diverticulitis Procedure(s) Performed: Exploratory laparotomy Lysis of extensive adhesions Reversal of colostomy Repair of incisional hernia greater than 10 cm Repair of parastomal hernia Partial omentectomy Right nephrectomy Anesthesia: VANE Surgeon: Haroon Lewis Estimated Blood Loss (ml): 100 Pathology: other (Colon, omentum, right ovary) Condition: stable Disposition: PACU Description of Procedure: Patient was placed in the operative table in the supine position. She received general endotracheal tube anesthesia. Her abdomen was prepped and draped you sterile fashion. Using an Ioban the colostomy was prepped. The skin was incised in the midline. The abdominal wall was divided with cautery. The patient had a large incisional hernia. The hernia measured approximately 25 cm in length and about 10 cm in width. It was a hernia of the entire midline incision. The abdominal was divided. And then approximately 45 minutes of operative use Elase adhesions. Patient significant intra-abdominal lesions. The colostomy was then transected at the fascial level using the EILEEN stapler. The pelvis was examined. The patient had a ovary which was adherent to the rectal stump. Using blunt sharp dissection electrocautery the hernia was dissected free. The ovary had a cyst. There was some bleeding from the ovary. Decided perform a right oophorectomy y. The ovarian vessels were ligated with 0 silk ties. And then the ovary was sent to pathology. The patient also had a parastomal hernia. A portion omentum appeared to be nonviable. This was transected with the LigaSure device and sent to pathology. The anvil for the 29 mm EEA stapler was then placed in the colon. The distal and the colon was opened. The end was placed into the colon. And then the colon was transected with a EILEEN stapler. The spike from the end was driven through the staple line. The mesentery of the bowel was then divided and the specimen sent to pathology. This point the retail administrative assistant placed the EEA stapler into the rectum. And then the spike was driven through the anterior rectal wall. The anvil had been placed into the proximal colon. The animal was then connected to the EILEEN stapler. The stapler then closed and fired. 2 intact tissue rings were withdrawn. The anastomosis was then checked under air insufflation. There is no into leakage at the staple line. The abdomen was irrigated. There is no bleeding seen. The incisional hernia was repaired during fascial closure. The hernia sac had been dissected and sent to pathology. The hernia measured approximately 10 x 25 cm. The fascia was then closed with #1 [id number] 0 Ethibond suture. This was then buttressed with #1 strata fix. The colostomy site was involved in the hernia. The hernia sac was excised with the colostomy prior to fascial closure. The redundant skin at the colostomy was also excised. A JG drain was placed over top the fascia repair. And then this was brought through separate stab incision. The skin was then closed with chantell. The Prevena wound system was placed over top of the close skin. Patient was sent to recovery room in stable condition.
[2024-05-26] MEDS: LACTATED RINGERS 1,000 ML IV ONE (11:34)
[2024-05-26] MEDS: fentaNYL (PF) 50 MCG/ML 2 ML AMP IVP PRN (11:46)
--- NOTE | 2024-05-26 14:17 | P.ANPRN ---
Procedure Note - Anesthesia - Epidural/Spinal Epidural Continuous Time Out Performed: Yes Date of Procedure: 05/26/24 Procedure Start Time: 06:35 Procedure Stop Time: 06:43 Location of Patient: PreOp Indication: Acute Post-Operative Pain, Requested by Surgeon Sedation Type: Sedate with meaningful contact maintained Preparation: Sterile Dressing Position: Sitting Catheter: Indwelling Needle Guage: 18 Blood Aspirated: No Pain Paresthesia on Injection Noted: No Events: Uneventful and Well Tolerated (xylo 1.5% plus epi 3cc given via the epidural no adv reaction noted)
[2024-05-26] MEDS: droPERidol 5 MG/2 ML VIAL IVP ONE (16:03)
[2024-05-26] MEDS: HEPARIN SODIUM,PORCINE 5,000 UNIT/ML 1 ML VIAL SQ SCH (16:04)
[2024-05-26] MEDS: D5-0.45% NACL WITH KCL 20MEQ/L 1,000 ML IV SCH (18:21)
[2024-05-26] MEDS ORDERED: DEXTROSE 50% SYRINGE 50 ML IVP PRN ×2 (19:04)
[2024-05-26 20:34] LABS: Glucose,Whole Blood 203 mg/dL (70-110)
[2024-05-26] MEDS: HYDROmorphone 1 MG/ML 1 ML SYRINGE IVP PRN (21:35)
[2024-05-26] MEDS: INSULIN ASPART (NovoLOG) 100 UNIT/ML VIAL SQ SCH (21:36)
[2024-05-27] MEDS: MORPHINE SULFATE 4 MG/ML SYRINGE IVP PRN (04:51)
[2024-05-27 05:08] LABS: Glucose,Whole Blood 235 mg/dL (70-110)
[2024-05-27] MEDS: ALVIMOPAN 12 MG CAPSULE PO SCH (09:03)
[2024-05-27] MEDS: ALPRAZolam 0.25 MG TAB PO PRN (09:40)
[2024-05-27] MEDS ORDERED: DEXTROSE 50% SYRINGE 50 ML IVP PRN ×2 (10:58)
[2024-05-27 11:14] LABS: Glucose,Whole Blood 213 mg/dL (70-110)
[2024-05-27] MEDS: ACETAMINOPHEN IV (For NPO) 1,000 MG in EMPTY BAG 1 BAG IVPB SCH (11:37)
[2024-05-27] MEDS: INSULIN DETEMIR (LEVEMIR) 100 UNIT/ML SYR SQ SCH (11:37)
--- NOTE | 2024-05-27 13:34 | P.PN ---
Subjective Progress Note Date: 05/27/24 CHIEF COMPLAINT: Diverticulitis HISTORY OF PRESENT ILLNESS: Patient is postop day #1 status post exploratory laparotomy, lysis of extensive adhesions, reversal of colostomy, repair of incisional hernia greater than 10 cm, repair of parastomal hernia, partial omentectomy and right oophorectomy. Patient's epidural is out. She is complaining of abdominal pain. Unfortunately she did lose IV access this morning. They were able to get midline placed. The IV Dilaudid as needed was restarted. She also has morphine IV for breakthrough pain. Pain is better controlled later morning rounds with Dr. Lewis. Patient denies any bowel activity. Denies any nausea or vomiting. JG drain with 100 mL serosanguineous output. Afebrile. Patient seen and examined with Dr. Lewis PHYSICAL EXAM: VITAL SIGNS: Reviewed. GENERAL: Well-developed in no acute distress. ABDOMEN: Soft. Mildly distended. Mild tenderness at incision site. Prevena dressing intact NEUROLOGIC: Alert and oriented. Cranial nerves II through XII grossly intact. ASSESSMENT: 1. Diverticulitis history PLAN: -Continue pain management. IV Tylenol added. -Encourage patient to increase activity level -Incentive spirometer ordered -Consult PT OT -Consult nurse case management for possible ECF placement at discharge -Xanax as needed ordered for anxiety -Continue clear liquid diet -Continue IV fluids -DVT prophylaxis subcu heparin and GI prophylaxis Pepcid Physician Manager Product note has been reviewed by physician. Signing provider agrees with the documented findings, assessment, and plan of care. Objective - Vital Signs Vital signs: Vital Signs Temp 98.2 F 05/27/24 08:13 Pulse 88 05/27/24 08:13 Resp 20 05/27/24 08:13 BP 163/95 05/27/24 08:13 Pulse Ox 94 L 05/27/24 08:13 FiO2 Intake & Output 05/26/24 05/27/24 05/27/24 18:59 06:59 18:59 Intake Total 2900.500 Output Total 550 Balance 2350.500 Weight 74.2 kg Intake: IV 2850 Intake, IV Titration 50.500 Amount Ropivacaine 250 mg 50.500 Hydromorphone (Pf) 5 mg In Sodium Chloride 0.9% 200 ml @ Per Protocol EPIDURAL .Q0M PRN Rx#: [id number] Output: Drainage 100 Right Abdomen 100 Urine 350 Estimated Blood Loss 100 Other: Voiding Method Indwelling Catheter Indwelling Catheter # Voids 200 - Labs Labs: Abnormal Lab Results - Last 24 Hours (Table) 05/26/24 05/27/24 05/27/24 Range/Units 20:32 03:46 05:06 POC Glucose (mg/dL) 203 H 235 H (70-110) mg/dL Hemoglobin A1c 9.4 H (<=6.0) % 05/27/24 Range/Units 11:12 POC Glucose (mg/dL) 213 H (70-110) mg/dL Hemoglobin A1c (<=6.0) %
[2024-05-27] MEDS: FAMOTIDINE 20 MG/2 ML VIAL IV SCH (14:47)
[2024-05-27] MEDS: GABAPENTIN 400 MG CAP PO SCH (15:37)
[2024-05-27] MEDS: busPIRone HCl 5 MG TAB PO SCH (15:37)
[2024-05-27 16:27] VITALS: BMI 28.0
[2024-05-27 16:34] LABS: Glucose,Whole Blood 192 mg/dL (70-110)
[2024-05-27] MEDS: traZODone HCL 50 MG TAB PO SCH (20:25)
[2024-05-27] MEDS: cloNIDine HCL 0.1 MG TAB PO SCH (20:26)
[2024-05-27 21:07] LABS: Glucose,Whole Blood 174 mg/dL (70-110)
[2024-05-28] MEDS ORDERED: IPRATROPIUM-ALBUTEROL 3 ML NEB INHALATION PRN (06:15)
[2024-05-28 06:23] LABS: Glucose,Whole Blood 145 mg/dL (70-110)
[2024-05-28] MEDS: lisinopriL 10 MG TAB PO SCH (08:10)
[2024-05-28] MEDS: DAPAGLIFLOZIN PROPANEDIOL 5 MG TABLET PO SCH (08:10)
[2024-05-28] MEDS: EZETIMIBE 10 MG TAB PO SCH (08:12)
[2024-05-28] MEDS: VENLAFAXINE HCL ER 150 MG CAP PO SCH (08:12)
[2024-05-28] MEDS: PANTOPRAZOLE 40 MG/10 ML VIAL IVP SCH (08:16)
[2024-05-28 08:51] LABS: Basophils # (A) 0.03 X 10*3/uL (0.00-0.10); Basophils % (A) 0.3 %; Eosinophils # (A) 0.08 X 10*3/uL (0.04-0.35); Eosinophils % (A) 0.7 %; HCT 39.7 % (37.2-46.3); HGB 12.8 g/dL (12.0-15.0); Lymphocytes # (A) 1.56 X 10*3/uL (0.90-5.00); Lymphocytes % (A) 14.4 %; MCHC 32.2 g/dL (32.0-37.0); MCV 96.1 FL (80.0-97.0); Mean Platelet Volume 11.8 FL (9.5-12.2); Monocytes # (A) 0.65 X 10*3/uL (0.20-1.00); NRBC Per 100 WBC 0 X 10*3/uL (0.00-0.01); Neutrophils # (A) 8.43 X 10*3/uL (1.80-7.70); Neutrophils % (A) 78.1 %; Platelet Count 140 X 10*3/uL (140-440); RBC 4.13 X 10*6/uL (4.10-5.20); RDW 13.8 % (11.5-14.5)
[2024-05-28 09:04] LABS: Blood Urea Nitrogen 7.8 mg/dL (9.0-27.0); Calcium 8.1 mg/dL (8.7-10.3); Carbon Dioxide 20.7 mmol/L (21.6-31.8); Chloride 105 mmol/L (96-109); Glucose 150 mg/dL (70-110); Potassium 3.5 mmol/L (3.5-5.5); Sodium 135 mmol/L (135-145)
--- NOTE | 2024-05-28 09:35 | P.CONS ---
History of Present Illness - Reason for Consult Consult date: 05/27/24 Medical management, status post exploratory laparotomy, lysis of adhesions - History of Present Illness This is a 54-year-old female who was recently admitted under surgery services status post exploratory laparotomy, lysis of adhesions that were extensive, reversal of colostomy with repair of incisional hernia greater than 10 cm with repair of parastomal hernia and partial omentectomy with right oophorectomy. Patient is reporting severe 10/10 pain and awaiting to receive an IV. Patient is continued on n.p.o. and diet will be resumed per surgery. Awaiting follow-up labs and recommend replace electrolytes per protocol. REVIEW OF SYSTEMS: CONSTITUTIONAL: No fever, no malaise, no fatigue. HEENT: No recent visual problems or hearing problems. Denied any sore throat. CARDIOVASCULAR: No chest pain, orthopnea, PND, no palpitations, no syncope. PULMONARY: No shortness of breath, no cough, no hemoptysis. GASTROINTESTINAL: No diarrhea, reports nausea, no vomiting, reports severe abdominal pain. NEUROLOGICAL: No headaches, no weakness, no numbness. HEMATOLOGICAL: Denies any bleeding or petechiae. GENITOURINARY: Denies any burning micturition, frequency, or urgency. MUSCULOSKELETAL/RHEUMATOLOGICAL: Denies any joint pain, swelling, or any muscle pain. ENDOCRINE: Denies any polyuria or polydipsia. The rest of the 14-point review of systems is negative. PHYSICAL EXAMINATION: GENERAL: The patient is alert and oriented x2-3, slightly anxious on exam. Well developed, ill-appearing, elderly appearing HEENT: Pupils are round and equally reacting to light. EOMI. No scleral icterus. No conjunctival pallor. Normocephalic, atraumatic. No pharyngeal erythema. No thyromegaly. CARDIOVASCULAR: S1 and S2 muffled PULMONARY: Diminished breath sounds bilaterally with a few scattered rhonchi and faint expiratory wheezing noted on exam, currently on 3 to 4 L ABDOMEN: Soft,tender, nondistended, hypoactive bowel sounds. No palpable organomegaly. MUSCULOSKELETAL: No joint swelling or deformity. EXTREMITIES: No cyanosis, clubbing, or pedal edema. NEUROLOGICAL: Gross neurological examination did not reveal any focal deficits. Diffusely weak SKIN: No rashes. Assessment: Status post exploratory laparotomy with lysis of extensive adhesions, reversal of colostomy, repair of incisional hernia/parastomal hernia/partial omentectomy, and right oophorectomy History of diverticulitis History of COPD, not in exacerbation History of CVA/TIA Diabetes mellitus, type II, uncontrolled with hyper and hypoglycemia History of DVT GERD Hyperlipidemia Hypertension Depression/PTSD Continued ongoing nicotine dependence GI prophylaxis DVT prophylaxis Full code Plan: Patient is status post surgical intervention with general surgery is attending and being monitored. Currently n.p.o. and continues with severe abdominal pain Home medications reviewed and resumed as appropriate Continue Accu-Cheks before meals and at bedtime and will adjust insulins accordingly Recommend choosing either Dilaudid or morphine in combination with an oral narcotic for pain. High risk for altered mentation and sedation with IV narcotics being used Encourage incentive spirometer use at least 10 times every hour while awake Follow-up on repeat labs and replace electrolytes per protocol Patient will be going to ECF on discharge Thank you kindly for this consultation. We will continue to follow with general surgery during hospitalization. The impression and plan of care has been dictated by Jennifer Thakkar, Nurse Practitioner as directed. Dr. Sharlene MD I have performed a history and examination and MDM of this patient, discussed the same with the dictator, and agree with the dictator's assessment and plan as written ,documented as a scribe. Based on total visit time, I have performed more than 50% of the visit. Past Medical History Past Medical History: COPD, CVA/TIA, Diabetes Mellitus, Deep Vein Thrombosis (DVT), GERD/Reflux, Hyperlipidemia, Hypertension Additional Past Medical History / Comment(s): CVA 2020- expressive aphasia; 2 DVT's; diverticulitis; hernia History of Any Multi-Drug Resistant Organisms: MRSA Year Discovered:: 09/03/23 MDRO Source:: Groin Past Surgical History: Bowel Resection Additional Past Surgical History / Comment(s): IVC FILTER 2013. ileostomy. wound vac. ileostomy reversal with hernia repair, with ovary removal. Past Anesthesia/Blood Transfusion Reactions: No Reported Reaction Past Psychological History: Depression, PTSD Smoking Status: Current every day smoker Past Alcohol Use History: None Reported Additional Past Alcohol Use History / Comment(s): smokes 1/2 ppd since age 18 Past Drug Use History: None Reported Additional Drug Use History / Comment(s): used marijuana on her birthday Medications and Allergies Home Medications Medication Instructions Recorded Confirmed Type Insulin Glargine,Hum.rec.anlog 42 unit SQ DAILY 08/04/21 05/19/24 History [Lantus Solostar Pen] hydroCHLOROthiazide [Hydrodiuril] 12.5 mg PO DAILY 08/04/21 05/19/24 History busPIRone HCL 15 mg PO TID 03/14/23 05/19/24 History traZODone HCL 150 mg PO HS 03/14/23 05/19/24 History Gabapentin 800 mg PO TID 3 Days #9 tab 07/12/23 05/26/24 Rx Atorvastatin [Lipitor] 80 mg PO DAILY 08/07/23 05/26/24 History HYDROcodone/APAP 10-325MG [[place] 1 tab PO Q12H PRN 08/07/23 05/26/24 History 10-325] Apixaban [Eliquis] 5 mg PO BID 05/03/24 05/26/24 History Dapagliflozin Propanediol [Farxiga] 5 mg PO DAILY 05/03/24 05/26/24 History Ezetimibe [Zetia] 10 mg PO DAILY 05/03/24 05/26/24 History Famotidine 40 mg PO DAILY 05/03/24 05/26/24 History Venlafaxine HCl [Effexor XR] 150 mg PO DAILY 05/03/24 05/19/24 History cloNIDine HCL 0.05 mg PO BID 05/03/24 05/19/24 History lisinopriL 30 mg PO DAILY 05/03/24 05/19/24 History Allergies Allergy/AdvReac Type Severity Reaction Status Date / Time No Known Allergies Allergy Verified 05/26/24 06:02 Physical Exam Vitals: Vital Signs Temp Pulse Resp BP Pulse Ox 05/27/24 08:13 98.2 F 88 20 163/95 94 L 05/27/24 06:50 97.6 F 91 17 154/85 92 L 05/27/24 02:00 97.4 F L 89 152/88 87 L 05/26/24 20:00 98 F 90 109/73 94 L 05/26/24 17:09 99.0 F 104 H 18 118/85 94 L 05/26/24 16:00 97 18 117/70 95 05/26/24 15:00 88 18 103/66 95 05/26/24 14:30 100 18 95/54 94 L 05/26/24 13:30 116 H 18 100/63 96 05/26/24 13:00 98 18 104/78 96 05/26/24 12:30 108 H 18 100/64 95 05/26/24 12:10 111 H 18 101/69 94 L 05/26/24 11:55 105 H 18 99/69 93 L 05/26/24 11:40 102 H 18 104/67 92 L 05/26/24 11:25 91 18 105/70 91 L 05/26/24 11:10 85 18 102/65 99 05/26/24 10:55 66 18 101/62 99 Intake and Output 05/26/24 05/27/24 05/27/24 22:59 06:59 14:59 Intake Total 6.667 Output Total 100 Balance -93.333 Intake: Intake, IV Titration 6.667 Amount Ropivacaine 250 mg 6.667 Hydromorphone (Pf) 5 mg In Sodium Chloride 0.9% 200 ml @ Per Protocol EPIDURAL .Q0M PRN Rx#: [id number] Output: Drainage 100 Right Abdomen 100 Other: Voiding Method Indwelling Catheter Indwelling Catheter # Voids 200 Weight 74.2 kg Results CBC & Chem 7: 05/28/24 03:47 05/28/24 03:47 Labs: Abnormal Lab Results - Last 24 Hours (Table) 05/26/24 05/27/24 05/27/24 Range/Units 20:32 03:46 05:06 POC Glucose (mg/dL) 203 H 235 H (70-110) mg/dL Hemoglobin A1c 9.4 H (<=6.0) %
[2024-05-28 11:49] LABS: Glucose,Whole Blood 110 mg/dL (70-110)
--- NOTE | 2024-05-28 13:41 | P.PN ---
Subjective Progress Note Date: 05/28/24 CHIEF COMPLAINT: Diverticulitis HISTORY OF PRESENT ILLNESS: Patient is postop day #2 status post exploratory laparotomy, lysis of extensive adhesions, reversal of colostomy, repair of incisional hernia greater than 10 cm, repair of parastomal hernia, partial omentectomy and right oophorectomy. Patient complains of abdominal pain. Denies any nausea or vomiting. Denies any flatus. She is up sitting at bedside chair. She does have a cough. Afebrile. WBC 10.8 Hgb 12.8 sodium 135 potassium 3.5 creatinine 0.4 Patient seen and examined with Dr. Lewis PHYSICAL EXAM: VITAL SIGNS: Reviewed. GENERAL: Well-developed in no acute distress. ABDOMEN: Soft. Mildly distended. Mild tenderness at incision site. Prevena dressing intact NEUROLOGIC: Alert and oriented. Cranial nerves II through XII grossly intact. ASSESSMENT: 1. Diverticulitis history PLAN: -Continue pain management -Discontinue [place] catheter -Consult PT OT -Abdominal binder ordered -Chest x-ray ordered for cough -Continue clear liquid diet -Continue IV fluids -DVT prophylaxis subcu heparin and GI prophylaxis Pepcid Physician [employer] Counselor note has been reviewed by physician. Signing provider agrees with the documented findings, assessment, and plan of care. Objective - Vital Signs Vital signs: Vital Signs Temp 98.7 F 05/28/24 07:52 Pulse 93 05/28/24 07:52 Resp 17 05/28/24 07:52 BP 129/85 05/28/24 07:52 Pulse Ox 93 L 05/28/24 07:52 FiO2 Intake & Output 05/27/24 05/28/24 05/28/24 18:59 06:59 18:59 Intake Total 200 Output Total 40 765 175 Balance 160 -765 -175 Weight 74.2 kg Intake: Oral 200 Output: Drainage 40 65 Right Abdomen 40 65 Urine 700 175 Uretheral (Lockwood) 175 Other: Voiding Method Indwelling Catheter Indwelling Catheter Indwelling Catheter - Labs CBC & Chem 7: 05/28/24 03:47 05/28/24 03:47 Labs: Abnormal Lab Results - Last 24 Hours (Table) 05/27/24 05/27/24 05/28/24 Range/Units 16:33 21:05 03:47 WBC 10.80 H (4.50-10.00) X 10*3/uL Immature Gran # 0.05 H (0.00-0.04) X 10*3/uL Neutrophils # 8.43 H (1.80-7.70) X 10*3/uL Carbon Dioxide (21.6-31.8) mmol/L BUN (9.0-27.0) mg/dL Creatinine (0.6-1.5) mg/dL Glucose (70-110) mg/dL POC Glucose (mg/dL) 192 H 174 H (70-110) mg/dL Calcium (8.7-10.3) mg/dL 05/28/24 05/28/24 Range/Units 03:47 06:18 WBC (4.50-10.00) X 10*3/uL Immature Gran # (0.00-0.04) X 10*3/uL Neutrophils # (1.80-7.70) X 10*3/uL Carbon Dioxide 20.7 L (21.6-31.8) mmol/L BUN 7.8 L (9.0-27.0) mg/dL Creatinine 0.4 L (0.6-1.5) mg/dL Glucose 150 H (70-110) mg/dL POC Glucose (mg/dL) 145 H (70-110) mg/dL Calcium 8.1 L (8.7-10.3) mg/dL
--- NOTE | 2024-05-28 13:44 | XR ---
EXAMINATION TYPE: XR chest 2V DATE OF EXAM: 05/28/2024 COMPARISON: 06/30/2023 HISTORY: Shortness of breath TECHNIQUE: Frontal and lateral views of the chest are obtained. FINDINGS: Scattered senescent parenchymal changes noted. Perihilar infiltrates suggestive of pneumonia. Correlate clinically. Heart size is stable. Mediastinal structures are stable and grossly unremarkable. No evidence for hilar prominence. Degenerative changes dorsal spine. IMPRESSION: 1. Perihilar infiltrates suggestive of pneumonia. Correlate clinically. [facility], , 05/28/2024 1:42 PM
[2024-05-28 16:34] LABS: Glucose,Whole Blood 132 mg/dL (70-110)
[2024-05-28 22:08] LABS: Glucose,Whole Blood 150 mg/dL (70-110)
[2024-05-29 02:39] LABS: Glucose,Whole Blood 136 mg/dL (70-110)
[2024-05-29 06:14] LABS: Glucose,Whole Blood 145 mg/dL (70-110)
[2024-05-29 08:32] LABS: Blood Urea Nitrogen 8.3 mg/dL (9.0-27.0); Carbon Dioxide 19.2 mmol/L (21.6-31.8); Chloride 103 mmol/L (96-109); Glucose 134 mg/dL (70-110); Potassium 3.9 mmol/L (3.5-5.5); Sodium 137 mmol/L (135-145)
[2024-05-29 08:33] LABS: Calcium 8.3 mg/dL (8.7-10.3)
[2024-05-29 08:37] LABS: Basophils # (A) 0.05 X 10*3/uL (0.00-0.10); Basophils % (A) 0.5 %; Eosinophils # (A) 0.07 X 10*3/uL (0.04-0.35); Eosinophils % (A) 0.7 %; HCT 38.7 % (37.2-46.3); HGB 12.4 g/dL (12.0-15.0); Lymphocytes # (A) 1.35 X 10*3/uL (0.90-5.00); Lymphocytes % (A) 12.9 %; MCH 30.5 pg (27.0-32.0); MCV 95.1 FL (80.0-97.0); Mean Platelet Volume 11.7 FL (9.5-12.2); Monocytes # (A) 0.58 X 10*3/uL (0.20-1.00); Monocytes % (A) 5.6 %; NRBC Per 100 WBC 0 X 10*3/uL (0.00-0.01); Neutrophils # (A) 8.35 X 10*3/uL (1.80-7.70); Neutrophils % (A) 79.8 %; Platelet Count 164 X 10*3/uL (140-440); RBC 4.07 X 10*6/uL (4.10-5.20); RDW 13.7 % (11.5-14.5); WBC 10.45 X 10*3/uL (4.50-10.00)
--- NOTE | 2024-05-29 09:45 | P.PN ---
Subjective Progress Note Date: 05/28/24 - Reason for Consult Consult date: 05/27/24 Medical management, status post exploratory laparotomy, lysis of adhesions - History of Present Illness This is a 54-year-old female who was recently admitted under surgery services status post exploratory laparotomy, lysis of adhesions that were extensive, reversal of colostomy with repair of incisional hernia greater than 10 cm with repair of parastomal hernia and partial omentectomy with right oophorectomy. Patient is reporting severe 10/10 pain and awaiting to receive an IV. Patient is continued on n.p.o. and diet will be resumed per surgery. Awaiting follow-up labs and recommend replace electrolytes per protocol. 05/28/2024 Patient is seen and evaluated in follow-up today. Currently sitting up in the chair sleeping although arousable. Patient reports significant pain and is maintained on IV morphine as well as IV Dilaudid and per nursing staff has been [id number]. Patient also using [place] 10 and currently clear liquids per surgery at this time. Patient will need PT/OT therapy as well as ECF on discharge. No bowel activity noted as of yet and white count noted to be 10.8, other labs reviewed including BMP and within normal limits other than mildly elevated blood sugar. Will continue current regimen of insulin with long-acting as well as sliding scale and will adjust accordingly. Review of systems: Constitutional: No reports of fatigue, fever, or chills Cardiovascular: No reports of chest pain or palpitations Respiratory: No reports of shortness of breath or cough GI: reports of nausea, no reports of vomiting, no reports of gas or bowel movement : No reports of dysuria or retention Neurovascular: reports of generalized weakness and All medications have been reviewed PHYSICAL EXAMINATION: GENERAL: The patient is alert and oriented x2-3, slightly anxious on exam. Well developed, ill-appearing, elderly appearing HEENT: Pupils are round and equally reacting to light. EOMI. No scleral icterus. No conjunctival pallor. Normocephalic, atraumatic. No pharyngeal erythema. No thyromegaly. CARDIOVASCULAR: S1 and S2 muffled PULMONARY: Diminished breath sounds bilaterally with a few scattered rhonchi and faint expiratory wheezing noted on exam, currently on 3 L ABDOMEN: Soft,tender, nondistended, hypoactive bowel sounds. No palpable organ omegaly. MUSCULOSKELETAL: No joint swelling or deformity. EXTREMITIES: No cyanosis, clubbing, or pedal edema. NEUROLOGICAL: Gross neurological examination did not reveal any focal deficits. Diffusely weak SKIN: No rashes. Assessment: Status post exploratory laparotomy with lysis of extensive adhesions, reversal of colostomy, repair of incisional hernia/parastomal hernia/partial omentectomy, and right oophorectomy History of diverticulitis History of COPD, not in exacerbation History of CVA/TIA Diabetes mellitus, type II, uncontrolled with hyper and hypoglycemia History of DVT GERD Hyperlipidemia Hypertension Depression/PTSD Continued ongoing nicotine dependence GI prophylaxis DVT prophylaxis Full code Plan: Patient is status post surgical intervention with general surgery is attending and being monitored. Currently clear liquids and continues with severe abdominal pain Home medications reviewed and resumed as appropriate Continue Accu-Cheks before meals and at bedtime and will adjust insulins accordingly Recommend choosing either Dilaudid or morphine in combination with an oral narcotic for pain. High risk for altered mentation and sedation with IV narcotics being used Encourage incentive spirometer use at least 10 times every hour while awake Follow-up on repeat labs and replace electrolytes per protocol Patient will be going to [facility] on discharge Thank you kindly for this consultation. We will continue to follow with general surgery during hospitalization. The impression and plan of care has been dictated by Jennifer Thakkar, Nurse Practitioner as directed. Dr. Sharlene MD I have performed a history and examination and MDM of this patient, discussed the same with the dictator, and agree with the dictator's assessment and plan as written ,documented as a scribe. Based on total visit time, I have performed more than 50% of the visit. Objective - Vital Signs Vital signs: Vital Signs Temp 98.7 F 05/28/24 07:52 Pulse 93 05/28/24 07:52 Resp 17 05/28/24 07:52 BP 129/85 05/28/24 07:52 Pulse Ox 93 L 05/28/24 07:52 FiO2 Intake & Output 05/27/24 05/28/24 05/28/24 18:59 06:59 18:59 Intake Total 200 Output Total 40 765 Balance 160 -765 Weight 74.2 kg Intake: Oral 200 Output: Drainage 40 65 Right Abdomen 40 65 Urine 700 Other: Voiding Method Indwelling Catheter Indwelling Catheter Indwelling Catheter - Labs CBC & Chem 7: 10/03/24 03:54 05/29/24 03:54 Labs: Abnormal Lab Results - Last 24 Hours (Table) 05/27/24 05/27/24 05/27/24 Range/Units 11:12 16:33 21:05 WBC (4.50-10.00) X 10*3/uL Immature Gran # (0.00-0.04) X 10*3/uL Neutrophils # (1.80-7.70) X 10*3/uL Carbon Dioxide (21.6-31.8) mmol/L BUN (9.0-27.0) mg/dL Creatinine (0.6-1.5) mg/dL Glucose (70-110) mg/dL POC Glucose (mg/dL) 213 H 192 H 174 H (70-110) mg/dL Calcium (8.7-10.3) mg/dL 05/28/24 05/28/24 05/28/24 Range/Units 03:47 03:47 06:18 WBC 10.80 H (4.50-10.00) X 10*3/uL Immature Gran # 0.05 H (0.00-0.04) X 10*3/uL Neutrophils # 8.43 H (1.80-7.70) X 10*3/uL Carbon Dioxide 20.7 L (21.6-31.8) mmol/L BUN 7.8 L (9.0-27.0) mg/dL Creatinine 0.4 L (0.6-1.5) mg/dL Glucose 150 H (70-110) mg/dL POC Glucose (mg/dL) 145 H (70-110) mg/dL Calcium 8.1 L (8.7-10.3) mg/dL
[2024-05-29 11:42] LABS: Glucose,Whole Blood 158 mg/dL (70-110)
--- NOTE | 2024-05-29 12:26 | P.PN ---
Subjective Progress Note Date: 05/29/24 CHIEF COMPLAINT: Diverticulitis HISTORY OF PRESENT ILLNESS: Patient is postop day #3 status post exploratory laparotomy, lysis of extensive adhesions, reversal of colostomy, repair of incisional hernia greater than 10 cm, repair of parastomal hernia, partial omentectomy and right oophorectomy. Patient complains of abdominal pain. Denies any nausea or vomiting. Denies any flatus. Patient did ambulate in the hallway. She reports her cough is less. Afebrile. She is on 3 L oxygen. WBC 10.45 Hgb 12.4 sodium 137 potassium 3.9 creatinine 0.5. Chest x-ray perihilar infiltrates suggestive of pneumonia . PHYSICAL EXAM: VITAL SIGNS: Reviewed. GENERAL: Well-developed in no acute distress. ABDOMEN: Soft. Mildly distended. Mild tenderness at incision site. Prevena dressing intact NEUROLOGIC: Alert and oriented. Cranial nerves II through XII grossly intact. ASSESSMENT: 1. Diverticulitis history PLAN: -Change nebulizers to scheduled for possible atelectasis -Continue pain management -Continue IV fluids at decreased rate -Encourage patient to increase activity level -Encourage patient to use incentive spirometer -DVT prophylaxis subcu heparin and GI prophylaxis Pepcid Physician Egg Tester note has been reviewed by physician. Signing provider agrees with the documented findings, assessment, and plan of care. Objective - Vital Signs Vital signs: Vital Signs Temp 97.7 F 05/29/24 07:11 Pulse 85 05/29/24 07:11 Resp 17 05/29/24 07:11 BP 152/84 05/29/24 07:11 Pulse Ox 94 L 05/29/24 08:02 FiO2 Intake & Output 05/28/24 05/29/24 05/29/24 18:59 06:59 18:59 Output Total 225 50 Balance -225 -50 Output: Drainage 50 50 Right Abdomen 50 50 Urine 175 Uretheral ([place]) 175 Other: Voiding Method Indwelling Catheter Toilet # Voids 2 4 - Labs CBC & Chem 7: 05/29/24 03:54 05/29/24 03:54 Labs: Abnormal Lab Results - Last 24 Hours (Table) 05/28/24 05/28/24 05/29/24 Range/Units 16:32 22:07 02:37 WBC (4.50-10.00) X 10*3/uL RBC (4.10-5.20) X 10*6/uL Immature Gran # (0.00-0.04) X 10*3/uL Neutrophils # (1.80-7.70) X 10*3/uL Carbon Dioxide (21.6-31.8) mmol/L Anion Gap (4.00-12.00) mmol/L BUN (9.0-27.0) mg/dL Creatinine (0.6-1.5) mg/dL Glucose (70-110) mg/dL POC Glucose (mg/dL) 132 H 150 H 136 H (70-110) mg/dL Calcium (8.7-10.3) mg/dL 05/29/24 05/29/24 05/29/24 Range/Units 03:54 03:54 06:12 WBC 10.45 H (4.50-10.00) X 10*3/uL RBC 4.07 L (4.10-5.20) X 10*6/uL Immature Gran # 0.05 H (0.00-0.04) X 10*3/uL Neutrophils # 8.35 H (1.80-7.70) X 10*3/uL Carbon Dioxide 19.2 L (21.6-31.8) mmol/L Anion Gap 14.80 H (4.00-12.00) mmol/L BUN 8.3 L (9.0-27.0) mg/dL Creatinine 0.5 L (0.6-1.5) mg/dL Glucose 134 H (70-110) mg/dL POC Glucose (mg/dL) 145 H (70-110) mg/dL Calcium 8.3 L (8.7-10.3) mg/dL 05/29/24 Range/Units 11:41 WBC (4.50-10.00) X 10*3/uL RBC (4.10-5.20) X 10*6/uL Immature Gran # (0.00-0.04) X 10*3/uL Neutrophils # (1.80-7.70) X 10*3/uL Carbon Dioxide (21.6-31.8) mmol/L Anion Gap (4.00-12.00) mmol/L BUN (9.0-27.0) mg/dL Creatinine (0.6-1.5) mg/dL Glucose (70-110) mg/dL POC Glucose (mg/dL) 158 H (70-110) mg/dL Calcium (8.7-10.3) mg/dL
[2024-05-29] MEDS: IPRATROPIUM-ALBUTEROL 3 ML NEB INHALATION SCH (15:28)
--- NOTE | 2024-05-29 15:36 | P.PN ---
Subjective Progress Note Date: 05/29/24 - Reason for Consult Consult date: 05/27/24 Medical management, status post exploratory laparotomy, lysis of adhesions - History of Present Illness This is a 54-year-old female who was recently admitted under surgery services status post exploratory laparotomy, lysis of adhesions that were extensive, reversal of colostomy with repair of incisional hernia greater than 10 cm with repair of parastomal hernia and partial omentectomy with right oophorectomy. Patient is reporting severe 10/10 pain and awaiting to receive an IV. Patient is continued on n.p.o. and diet will be resumed per surgery. Awaiting follow-up labs and recommend replace electrolytes per protocol. 05/28/2024 Patient is seen and evaluated in follow-up today. Currently sitting up in the chair sleeping although arousable. Patient reports significant pain and is maintained on IV morphine as well as IV Dilaudid and per nursing staff has been [id number]. Patient also using [place] 10 and currently clear liquids per surgery at this time. Patient will need PT/OT therapy as well as ECF on discharge. No bowel activity noted as of yet and white count noted to be 10.8, other labs reviewed including BMP and within normal limits other than mildly elevated blood sugar. Will continue current regimen of insulin with long-acting as well as sliding scale and will adjust accordingly. 05/29/2024 Patient is seen and evaluated in follow-up currently sitting up in the chair and lethargic. Nursing staff reports she just received IV pain medications. Patient is maintained on clear liquids with no bowel activity as of yet and has been up and walking. Patient's white count remains at 10 and patient remains afebrile. Chest x-ray done shows possible infiltrate most likely atelectasis and encouraged incentive spirometer use at least 10 times every hour while awake. Also recommend decreasing the fluid rate as patient has been receiving a large amount since surgery. Will watch and repeat labs and if developing any fevers or respiratory distress will consider antibiotic therapy and further workup. Patient denies any worsening shortness of breath and does have history of nicotine dependence smokes over a pack a day with history of COPD. Will make breathing treatment scheduled and follow-up with repeat labs. Review of systems: Constitutional: No reports of fatigue, fever, or chills Cardiovascular: No reports of chest pain or palpitations Respiratory: No reports of shortness of breath or cough GI: reports of nausea, no reports of vomiting, no reports of gas or bowel movement : No reports of dysuria or retention Neurovascular: reports of generalized weakness All medications have been reviewed PHYSICAL EXAMINATION: GENERAL: The patient is alert and oriented x2-3, baseline, less anxious on exam. Well developed, ill-appearing, elderly appearing HEENT: Pupils are round and equally reacting to light. EOMI. No scleral icterus. No conjunctival pallor. Normocephalic, atraumatic. No pharyngeal erythema. No thyromegaly. CARDIOVASCULAR: S1 and S2 muffled PULMONARY: Diminished breath sounds bilaterally with a few scattered rhonchi and faint expiratory wheezing noted on exam, currently on room air on exam ABDOMEN: Soft,tender, nondistended, hypoactive bowel sounds. No palpable organomegaly. MUSCULOSKELETAL: No joint swelling or deformity. EXTREMITIES: No cyanosis, clubbing, or pedal edema. NEUROLOGICAL: Gross neurological examination did not reveal any focal deficits. Diffusely weak SKIN: No rashes. Assessment: Status post exploratory laparotomy with lysis of extensive adhesions, reversal of colostomy, repair of incisional hernia/parastomal hernia/partial omentectomy, and right oophorectomy History of diverticulitis History of COPD, not in exacerbation History of CVA/TIA Diabetes mellitus, type II, uncontrolled with hyper and hypoglycemia History of DVT GERD Hyperlipidemia Hypertension Depression/PTSD Continued ongoing nicotine dependence GI prophylaxis DVT prophylaxis Full code Plan: Patient is status post surgical intervention with general surgery is attending and being monitored. Currently clear liquids and continues with severe abdominal pain asking for [id number] pain medications Home medications reviewed and resumed as appropriate Continue Accu-Cheks before meals and at bedtime and will adjust insulins accordingly Recommend choosing either Dilaudid or morphine in combination with an oral n arcotic for pain. High risk for altered mentation and sedation with IV narcotics being used Chest x-ray showing possible infiltrate, more likely atelectasis and needs encouragement with using incentive spirometer at least 10 times every hour while awake. Patient is afebrile and white count remains 10 will monitor and repeat labs and make DuoNebs scheduled as patient does have history of COPD. Will watch off any antibiotic therapy at this time and encouraged increase activity as tolerated and continued IS use Follow-up on repeat labs and replace electrolytes per protocol Patient will be going to ECF on discharge Thank you kindly for this consultation. We will continue to follow with general surgery during hospitalization. The impression and plan of care has been dictated by Jennifer Thakkar, Nurse Practitioner as directed. Dr. Sharlene MD I have performed a history and examination and MDM of this patient, discussed the same with the dictator, and agree with the dictator's assessment and plan as written ,documented as a scribe. Based on total visit time, I have performed more than 50% of the visit. Objective - Vital Signs Vital signs: Vital Signs Temp 97.7 F 05/29/24 07:11 Pulse 85 05/29/24 07:11 Resp 17 05/29/24 07:11 BP 152/84 05/29/24 07:11 Pulse Ox 94 L 05/29/24 08:02 FiO2 Intake & Output 05/28/24 05/29/24 05/29/24 18:59 06:59 18:59 Output Total 225 50 Balance -225 -50 Output: Drainage 50 50 Right Abdomen 50 50 Urine 175 Uretheral ([place]) 175 Other: Voiding Method Indwelling Catheter Toilet # Voids 2 4 - Labs CBC & Chem 7: 05/29/24 03:54 05/29/24 03:54 Labs: Abnormal Lab Results - Last 24 Hours (Table) 05/28/24 05/28/24 05/29/24 Range/Units 16:32 22:07 02:37 WBC (4.50-10.00) X 10*3/uL RBC (4.10-5.20) X 10*6/uL Immature Gran # (0.00-0.04) X 10*3/uL Neutrophils # (1.80-7.70) X 10*3/uL Carbon Dioxide (21.6-31.8) mmol/L Anion Gap (4.00-12.00) mmol/L BUN (9.0-27.0) mg/dL Creatinine (0.6-1.5) mg/dL Glucose (70-110) mg/dL POC Glucose (mg/dL) 132 H 150 H 136 H (70-110) mg/dL Calcium (8.7-10.3) mg/dL 05/29/24 05/29/24 05/29/24 Range/Units 03:54 03:54 06:12 WBC 10.45 H (4.50-10.00) X 10*3/uL RBC 4.07 L (4.10-5.20) X 10*6/uL Immature Gran # 0.05 H (0.00-0.04) X 10*3/uL Neutrophils # 8.35 H (1.80-7.70) X 10*3/uL Carbon Dioxide 19.2 L (21.6-31.8) mmol/L Anion Gap 14.80 H (4.00-12.00) mmol/L BUN 8.3 L (9.0-27.0) mg/dL Creatinine 0.5 L (0.6-1.5) mg/dL Glucose 134 H (70-110) mg/dL POC Glucose (mg/dL) 145 H (70-110) mg/dL Calcium 8.3 L (8.7-10.3) mg/dL
[2024-05-29] MEDS: FUROSEMIDE 10 MG/ML 4 ML VIAL IV STA (15:48)
[2024-05-29 16:58] LABS: Glucose,Whole Blood 174 mg/dL (70-110)
[2024-05-29 20:18] LABS: Glucose,Whole Blood 141 mg/dL (70-110)
[2024-05-30 02:01] LABS: Glucose,Whole Blood 123 mg/dL (70-110)
[2024-05-30 05:54] LABS: Glucose,Whole Blood 123 mg/dL (70-110)
[2024-05-30 08:44] LABS: ALT 15 U/L (8-44); AST 26 U/L (13-35); Albumin 3.2 g/dL (3.8-4.9); Albumin/Globulin Ratio 1.52 Ratio (1.60-3.17); Alkaline Phosphatase 104 U/L (41-126); Blood Urea Nitrogen 10.6 mg/dL (9.0-27.0); Calcium 8.3 mg/dL (8.7-10.3); Carbon Dioxide 25.2 mmol/L (21.6-31.8); Chloride 104 mmol/L (96-109); Globulin 2.1 g/dL (1.6-3.3); Glucose 116 mg/dL (70-110); Magnesium 1.8 mg/dL (1.5-2.4); Potassium 3.3 mmol/L (3.5-5.5); Sodium 140 mmol/L (135-145); Total Bilirubin 0.6 mg/dL (0.3-1.2); Total Protein 5.3 g/dL (6.2-8.2)
[2024-05-30 09:21] LABS: Basophils # (A) 0.05 X 10*3/uL (0.00-0.10); Basophils % (A) 0.7 %; Eosinophils # (A) 0.21 X 10*3/uL (0.04-0.35); Eosinophils % (A) 3.1 %; HCT 36.5 % (37.2-46.3); HGB 11.8 g/dL (12.0-15.0); Lymphocytes # (A) 1.47 X 10*3/uL (0.90-5.00); Lymphocytes % (A) 21.6 %; MCH 30.6 pg (27.0-32.0); MCHC 32.3 g/dL (32.0-37.0); MCV 94.6 FL (80.0-97.0); Mean Platelet Volume 11.6 FL (9.5-12.2); Monocytes # (A) 0.59 X 10*3/uL (0.20-1.00); Monocytes % (A) 8.7 %; NRBC Per 100 WBC 0 X 10*3/uL (0.00-0.01); Neutrophils # (A) 4.42 X 10*3/uL (1.80-7.70); Neutrophils % (A) 65.2 %; Platelet Count 194 X 10*3/uL (140-440); RBC 3.86 X 10*6/uL (4.10-5.20); RDW 13.5 % (11.5-14.5); WBC 6.79 X 10*3/uL (4.50-10.00)
[2024-05-30 11:23] LABS: Glucose,Whole Blood 135 mg/dL (70-110)
[2024-05-30 11:46] LABS: Glucose,Whole Blood 220 mg/dL (70-110)
--- NOTE | 2024-05-30 12:04 | P.PN ---
Subjective Progress Note Date: 05/30/24 CHIEF COMPLAINT: Diverticulitis HISTORY OF PRESENT ILLNESS: Patient is postop day #4 status post exploratory laparotomy, lysis of extensive adhesions, reversal of colostomy, repair of incisional hernia greater than 10 cm, repair of parastomal hernia, partial omentectomy and right oophorectomy. Patient's pain is controlled. She did have 2 bowel movements. Denies any nausea or vomiting. Afebrile. WBC 6.79 Hgb 11.8 potassium 3.3. Medicine service did order dose of IV Lasix. Patient does report cough is better. She reports just congestion in the back of her throat. JG drain 50 mL serosanguineous output PHYSICAL EXAM: VITAL SIGNS: Reviewed. GENERAL: Well-developed in no acute distress. ABDOMEN: Soft. Nondistended. Prevena wound VAC dressing intact NEUROLOGIC: Alert and oriented. Cranial nerves II through XII grossly intact. ASSESSMENT: 1. Diverticulitis history 2. Hypokalemia 3. Possible atelectasis PLAN: -Replace potassium -Advance diet to full liquids -Continue IV fluids -Continue nebulizer treatments scheduled -Continue pain management -Encourage patient to increase activity level -Encourage patient to use incentive spirometer -rail manager to arrange ECF at discharge -DVT prophylaxis subcu heparin and GI prophylaxis Pepcid Physician [employer] note has been reviewed by physician. Signing provider agrees with the documented findings, assessment, and plan of care. Objective - Vital Signs Vital signs: Vital Signs Temp 97.3 F L 05/30/24 07:56 Pulse 78 05/30/24 07:56 Resp 20 05/30/24 07:56 BP 145/87 05/30/24 07:56 Pulse Ox 90 L 05/30/24 07:56 FiO2 Intake & Output 05/29/24 05/30/24 05/30/24 18:59 06:59 18:59 Intake Total 600 2160 Output Total 40 10 Balance 560 2150 Intake: Intake, IV Titration 600 Amount D5-0.45% NaCl with KCl 600 20Meq/l 1,000 ml @ 75 mls /hr IV .[id number] NICOLETTE Rx#: [id number] Oral 2160 Output: Drainage 40 10 Right Abdomen 40 10 Other: Voiding Method Toilet # Voids 6 # Bowel Movements 2 - Labs CBC & Chem 7: 05/30/24 05:32 05/30/24 05:32 Labs: Abnormal Lab Results - Last 24 Hours (Table) 05/29/24 05/29/24 05/29/24 Range/Units 11:41 16:57 20:17 RBC (4.10-5.20) X 10*6/uL Hgb (12.0-15.0) g/dL Hct (37.2-46.3) % Immature Gran # (0.00-0.04) X 10*3/uL Potassium (3.5-5.5) mmol/L Creatinine (0.6-1.5) mg/dL BUN/Creatinine Ratio (12.00-20.00) Ratio Glucose (70-110) mg/dL POC Glucose (mg/dL) 158 H 174 H 141 H (70-110) mg/dL Calcium (8.7-10.3) mg/dL Total Protein (6.2-8.2) g/dL Albumin (3.8-4.9) g/dL Albumin/Globulin Ratio (1.60-3.17) Ratio 05/30/24 05/30/24 05/30/24 Range/Units 01:55 05:32 05:32 RBC 3.86 L (4.10-5.20) X 10*6/uL Hgb 11.8 L (12.0-15.0) g/dL Hct 36.5 L (37.2-46.3) % Immature Gran # 0.05 H (0.00-0.04) X 10*3/uL Potassium 3.3 L (3.5-5.5) mmol/L Creatinine 0.4 L (0.6-1.5) mg/dL BUN/Creatinine Ratio 26.50 H (12.00-20.00) Ratio Glucose 116 H (70-110) mg/dL POC Glucose (mg/dL) 123 H (70-110) mg/dL Calcium 8.3 L (8.7-10.3) mg/dL Total Protein 5.3 L (6.2-8.2) g/dL Albumin 3.2 L (3.8-4.9) g/dL Albumin/Globulin Ratio 1.52 L (1.60-3.17) Ratio 05/30/24 Range/Units 05:53 RBC (4.10-5.20) X 10*6/uL Hgb (12.0-15.0) g/dL Hct (37.2-46.3) % Immature Gran # (0.00-0.04) X 10*3/uL Potassium (3.5-5.5) mmol/L Creatinine (0.6-1.5) mg/dL BUN/Creatinine Ratio (12.00-20.00) Ratio Glucose (70-110) mg/dL POC Glucose (mg/dL) 123 H (70-110) mg/dL Calcium (8.7-10.3) mg/dL Total Protein (6.2-8.2) g/dL Albumin (3.8-4.9) g/dL Albumin/Globulin Ratio (1.60-3.17) Ratio
[2024-05-30] MEDS: POTASSIUM CHLORIDE ER 20 MEQ TAB.ER PO STA (13:01)
[2024-05-30 16:45] LABS: Glucose,Whole Blood 109 mg/dL (70-110)
[2024-05-30 20:28] LABS: Glucose,Whole Blood 183 mg/dL (70-110)
[2024-05-31 02:37] LABS: Glucose,Whole Blood 113 mg/dL (70-110)
[2024-05-31 05:55] LABS: Glucose,Whole Blood 122 mg/dL (70-110)
--- NOTE | 2024-05-31 07:38 | P.PN ---
Subjective Progress Note Date: 05/30/24 - Reason for Consult Consult date: 05/27/24 Medical management, status post exploratory laparotomy, lysis of adhesions - History of Present Illness This is a 54-year-old female who was recently admitted under surgery services status post exploratory laparotomy, lysis of adhesions that were extensive, reversal of colostomy with repair of incisional hernia greater than 10 cm with repair of parastomal hernia and partial omentectomy with right oophorectomy. Patient is reporting severe 10/10 pain and awaiting to receive an IV. Patient is continued on n.p.o. and diet will be resumed per surgery. Awaiting follow-up labs and recommend replace electrolytes per protocol. 05/28/2024 Patient is seen and evaluated in follow-up today. Currently sitting up in the chair sleeping although arousable. Patient reports significant pain and is maintained on IV morphine as well as IV Dilaudid and per nursing staff has been [id number]. Patient also using [place] 10 and currently clear liquids per surgery at this time. Patient will need PT/OT therapy as well as ECF on discharge. No bowel activity noted as of yet and white count noted to be 10.8, other labs reviewed including BMP and within normal limits other than mildly elevated blood sugar. Will continue current regimen of insulin with long-acting as well as sliding scale and will adjust accordingly. 05/29/2024 Patient is seen and evaluated in follow-up currently sitting up in the chair and lethargic. Nursing staff reports she just received IV pain medications. Patient is maintained on clear liquids with no bowel activity as of yet and has been up and walking. Patient's white count remains at 10 and patient remains afebrile. Chest x-ray done shows possible infiltrate most likely atelectasis and encouraged incentive spirometer use at least 10 times every hour while awake. Also recommend decreasing the fluid rate as patient has been receiving a large amount since surgery. Will watch and repeat labs and if developing any fevers or respiratory distress will consider antibiotic therapy and further workup. Patient denies any worsening shortness of breath and does have history of nicotine dependence smokes over a pack a day with history of COPD. Will make breathing treatment scheduled and follow-up with repeat labs. 05/30/2024 Patient is seen in follow-up today and is awake today reporting she feels improved although continues to have severe abdominal pain. Patient was able to have a bowel movement and is tolerating diet with small frequent meals. General surgery following and attending and patient will be going to [facility] discharge. Patient continues on breathing treatments along with supplemental oxygen although was noted to room air on exam. Patient does have history of COPD. Potassium 3.3 today and recommend replace. Follow-up antibiotics. White count has normalized and patient remains afebrile. Review of systems: Constitutional: No reports of fatigue, fever, or chills Cardiovascular: No reports of chest pain or palpitations Respiratory: No reports of shortness of breath, reports chronic cough GI: reports of occasional nausea, no reports of vomiting, reports passing gas and had a bowel movement, reports continued abdominal pain : No reports of dysuria or retention Neurovascular: reports of generalized weakness All medications have been reviewed PHYSICAL EXAMINATION: GENERAL: The patient is alert and oriented x2-3, baseline, less anxious on exam. Well developed, ill-appearing, elderly appearing HEENT: Pupils are round and equally reacting to light. EOMI. No scleral icterus. No conjunctival pallor. Normocephalic, atraumatic. No pharyngeal erythema. No thyromegaly. CARDIOVASCULAR: S1 and S2 muffled PULMONARY: Diminished breath sounds bilaterally with a few scattered rhonchi and faint expiratory wheezing noted on exam, currently on room air on exam ABDOMEN: Soft,tender, nondistended, hypoactive bowel sounds. No palpable organomegaly. MUSCULOSKELETAL: No joint swelling or deformity. EXTREMITIES: No cyanosis, clubbing, or pedal edema. NEUROLOGICAL: Gross neurological examination did not reveal any focal deficits. Diffusely weak SKIN: No rashes. Assessment: Status post exploratory laparotomy with lysis of extensive adhesions, reversal of colostomy, repair of incisional hernia/parastomal hernia/partial omentectomy, and right oophorectomy History of diverticulitis History of COPD, not in exacerbation History of CVA/TIA Diabetes mellitus, type II, uncontrolled with hyper and hypoglycemia History of DVT GERD Hyperlipidemia Hypertension Depression/PTSD Continued ongoing nicotine dependence GI prophylaxis DVT prophylaxis Full code Plan: Patient is status post surgical intervention with general surgery is attending and being monitored. Diet has been advanced per surgery and tolerating with small frequent meals. Patient has had a bowel movement and is passing gas. Home medications reviewed and resumed as appropriate Continue Accu-Cheks before meals and at bedtime and will adjust insulins accordingly Recommend choosing either Dilaudid or morphine in combination with an oral narcotic for pain. High risk for altered mentation and sedation with IV narcotics being used Chest x-ray showing possible infiltrate, more likely atelectasis and needs encouragement with using incentive spirometer at least 10 times every hour while awake. Patient is afebrile and white count is normal. Will monitor and repeat labs Continue DuoNebs scheduled as patient does have history of COPD. Will watch off any antibiotic therapy at this time and encouraged increase activity as tolerated and continued IS use Follow-up on repeat labs and replace electrolytes per protocol. Potassium was 3.3 and will replace per protocol Patient will be going to ECF on discharge Thank you kindly for this consultation. We will continue to follow with general surgery during hospitalization. The impression and plan of care has been dictated by Jennifer Thakkar, Nurse Practitioner as directed. Dr. Sharlene MD I have performed a history and examination and MDM of this patient, discussed the same with the dictator, and agree with the dictator's assessment and plan as written ,documented as a scribe. Based on total visit time, I have performed more than 50% of the visit. Objective - Vital Signs Vital signs: Vital Signs Temp 97.3 F L 05/30/24 07:56 Pulse 88 05/30/24 13:27 Resp 20 05/30/24 07:56 BP 145/87 05/30/24 07:56 Pulse Ox 90 L 05/30/24 07:56 FiO2 Intake & Output 05/29/24 05/30/24 05/30/24 18:59 06:59 18:59 Intake Total 600 2160 Output Total 40 10 Balance 560 2150 Weight 74.2 kg Intake: Intake, IV Titration 600 Amount D5-0.45% NaCl with KCl 600 20Meq/l 1,000 ml @ 75 mls /hr IV .[id number] NICOLETTE Rx#: [id number] Oral 2160 Output: Drainage 40 10 Right Abdomen 40 10 Other: Voiding Method Toilet # Voids 6 # Bowel Movements 2 - Labs CBC & Chem 7: 05/30/24 05:32 05/30/24 05:32 Labs: Abnormal Lab Results - Last 24 Hours (Table) 05/26/24 05/29/24 05/29/24 Range/Units 06:17 16:57 20:17 RBC (4.10-5.20) X 10*6/uL Hgb (12.0-15.0) g/dL Hct (37.2-46.3) % Immature Gran # (0.00-0.04) X 10*3/uL Potassium (3.5-5.5) mmol/L Creatinine (0.6-1.5) mg/dL BUN/Creatinine Ratio (12.00-20.00) Ratio Glucose (70-110) mg/dL POC Glucose (mg/dL) 220 H 174 H 141 H (70-110) mg/dL Calcium (8.7-10.3) mg/dL Total Protein (6.2-8.2) g/dL Albumin (3.8-4.9) g/dL Albumin/Globulin Ratio (1.60-3.17) Ratio 05/30/24 05/30/24 05/30/24 Range/Units 01:55 05:32 05:32 RBC 3.86 L (4.10-5.20) X 10*6/uL Hgb 11.8 L (12.0-15.0) g/dL Hct 36.5 L (37.2-46.3) % Immature Gran # 0.05 H (0.00-0.04) X 10*3/uL Potassium 3.3 L (3.5-5.5) mmol/L Creatinine 0.4 L (0.6-1.5) mg/dL BUN/Creatinine Ratio 26.50 H (12.00-20.00) Ratio Glucose 116 H (70-110) mg/dL POC Glucose (mg/dL) 123 H (70-110) mg/dL Calcium 8.3 L (8.7-10.3) mg/dL Total Protein 5.3 L (6.2-8.2) g/dL Albumin 3.2 L (3.8-4.9) g/dL Albumin/Globulin Ratio 1.52 L (1.60-3.17) Ratio 05/30/24 05/30/24 Range/Units 05:53 11:22 RBC (4.10-5.20) X 10*6/uL Hgb (12.0-15.0) g/dL Hct (37.2-46.3) % Immature Gran # (0.00-0.04) X 10*3/uL Potassium (3.5-5.5) mmol/L Creatinine (0.6-1.5) mg/dL BUN/Creatinine Ratio (12.00-20.00) Ratio Glucose (70-110) mg/dL POC Glucose (mg/dL) 123 H 135 H (70-110) mg/dL Calcium (8.7-10.3) mg/dL Total Protein (6.2-8.2) g/dL Albumin (3.8-4.9) g/dL Albumin/Globulin Ratio (1.60-3.17) Ratio
--- NOTE | 2024-05-31 09:49 | P.PN ---
Subjective Progress Note Date: 05/31/24 Principal diagnosis: Ostomy reversal Patient doing well today. She is sitting up in the chair. Tolerating full liquids. Says she is having loose stools. No nausea or vomiting. No significant pain. Apparently patient is still taking IV narcotics frequently however. She is afebrile. Objective - Vital Signs Vital signs: Vital Signs Temp 98.4 F 05/31/24 07:11 Pulse 80 05/31/24 08:13 Resp 16 05/31/24 07:11 BP 149/80 05/31/24 07:11 Pulse Ox 96 05/31/24 08:02 FiO2 Intake & Output 05/30/24 05/31/24 05/31/24 18:59 06:59 18:59 Output Total 40 35 Balance -40 -35 Weight 74.2 kg Output: Drainage 40 35 Right Abdomen 40 35 Other: # Voids 3 4 - Exam Abdomen: Soft, nondistended, dressing clean and dry, mild tenderness, drain serosanguineous - Labs CBC & Chem 7: 05/30/24 05:32 05/30/24 05:32 Labs: Abnormal Lab Results - Last 24 Hours (Table) 05/26/24 05/30/24 05/30/24 Range/Units 06:17 11:22 20:21 POC Glucose (mg/dL) 220 H 135 H 183 H (70-110) mg/dL 05/31/24 05/31/24 Range/Units 02:33 05:53 POC Glucose (mg/dL) 113 H 122 H (70-110) mg/dL Assessment and Plan (1) Diverticulitis Narrative/Plan: Patient seems to be doing better. Tolerating full liquids. Asking for more to eat. Will advance to low fiber diet. Increase ambulation. Discontinue hourly morphine. Current Visit: Yes Status: Acute Code(s): K57.92 - DVTRCLI OF INTEST, PART UNSP, W/O PERF OR ABSCESS W/O BLEED SNOMED Code(s): 626617817
[2024-05-31 10:03] LABS: Blood Urea Nitrogen 10.4 mg/dL (9.0-27.0); Calcium 8.7 mg/dL (8.7-10.3); Carbon Dioxide 24.6 mmol/L (21.6-31.8); Chloride 106 mmol/L (96-109); Glucose 119 mg/dL (70-110); Potassium 3.5 mmol/L (3.5-5.5); Sodium 141 mmol/L (135-145)
[2024-05-31] MEDS: HYDROcodone/APAP 10-325MG 1 EACH TAB PO PRN (11:08)
[2024-05-31 11:29] LABS: Glucose,Whole Blood 110 mg/dL (70-110)
--- NOTE | 2024-05-31 14:09 | PN ---
PROGRESS NOTE DATE OF SERVICE: 05/31/2024 SUBJECTIVE: This is a 54-year-old woman who underwent exploratory laparotomy and lysis of adhesions, reversal of colostomy, is being closely monitored. No chest pain. No palpitation. OBJECTIVE: VITAL SIGNS: Pulse is 65, blood pressure 143/84, respirations 18. CHEST: Clear to auscultation. CARDIOVASCULAR: S1, S2. ABDOMEN: Soft, status post surgery. LABORATORY DATA: Reviewed. ASSESSMENT: 1. Status post exploratory laparotomy and reversal of colostomy. 2. History of diverticulitis. 3. History of chronic obstructive pulmonary disease. 4. Multiple complex medical issues. RECOMMENDATIONS: Recommend to continue current management. Continue symptomatic treatment. Otherwise, continue with current medications. Chest x-ray reviewed. Closely follow with Surgery. The patient also had possibly atelectasis also. We will add bronchodilators. Further recommendations to follow. LAYLAL / ROSALES: [id number] /
[2024-05-31] MEDS: IPRATROPIUM-ALBUTEROL 3 ML NEB INHALATION SCH (15:28)
[2024-05-31] MEDS: SYMBICORT 160-4.5 MCG INHALER INHALATION SCH (15:28)
[2024-05-31 16:23] LABS: Glucose,Whole Blood 139 mg/dL (70-110)
[2024-05-31 21:09] LABS: Glucose,Whole Blood 107 mg/dL (70-110)
[2024-06-01 02:11] LABS: Glucose,Whole Blood 100 mg/dL (70-110)
[2024-06-01 06:37] LABS: Glucose,Whole Blood 138 mg/dL (70-110)
[2024-06-01] MEDS ORDERED: APIXABAN 5 MG TAB PO SCH (09:00)
[2024-06-01 09:16] LABS: Basophils # (A) 0.04 X 10*3/uL (0.00-0.10); Basophils % (A) 0.6 %; Eosinophils # (A) 0.16 X 10*3/uL (0.04-0.35); Eosinophils % (A) 2.4 %; HCT 35.9 % (37.2-46.3); HGB 11.6 g/dL (12.0-15.0); Lymphocytes # (A) 1.67 X 10*3/uL (0.90-5.00); Lymphocytes % (A) 25.1 %; MCH 30.2 pg (27.0-32.0); MCHC 32.3 g/dL (32.0-37.0); MCV 93.5 FL (80.0-97.0); Mean Platelet Volume 11.3 FL (9.5-12.2); Monocytes # (A) 0.49 X 10*3/uL (0.20-1.00); Monocytes % (A) 7.4 %; NRBC Per 100 WBC 0 X 10*3/uL (0.00-0.01); Neutrophils # (A) 4.25 X 10*3/uL (1.80-7.70); Neutrophils % (A) 63.7 %; Platelet Count 223 X 10*3/uL (140-440); RBC 3.84 X 10*6/uL (4.10-5.20); RDW 13.5 % (11.5-14.5); WBC 6.66 X 10*3/uL (4.50-10.00)
[2024-06-01] MEDS: hydroCHLOROthiazide 12.5 MG CAP PO SCH (09:43)
--- NOTE | 2024-06-01 09:58 | P.PN ---
Subjective Progress Note Date: 06/01/24 Principal diagnosis: Ostomy reversal Patient doing well today. Says her pain is improved. Her morphine was discontinued. Seems to be okay with that. She is tolerating regular diet. Still having bowel function. No nausea or vomiting. Objective - Vital Signs Vital signs: Vital Signs Temp 97.5 F L 06/01/24 08:00 Pulse 77 06/01/24 08:00 Resp 16 06/01/24 08:00 BP 153/80 06/01/24 08:00 Pulse Ox 95 06/01/24 08:00 FiO2 Intake & Output 05/31/24 06/01/24 06/01/24 18:59 06:59 18:59 Intake Total 200 Output Total 35 Balance 165 Intake: Oral 200 Output: Drainage 35 Right Abdomen 35 Other: Voiding Method Toilet Toilet # Voids 4 8 - Exam Abdomen: Soft, nondistended, Prevena dressing in place, drain serosanguineous. - Labs CBC & Chem 7: 06/01/24 02:46 05/31/24 05:55 Labs: Abnormal Lab Results - Last 24 Hours (Table) 05/31/24 05/31/24 06/01/24 Range/Units 05:55 16:19 02:46 RBC 3.84 L (4.10-5.20) X 10*6/uL Hgb 11.6 L (12.0-15.0) g/dL Hct 35.9 L (37.2-46.3) % Immature Gran # 0.05 H (0.00-0.04) X 10*3/uL Creatinine 0.5 L (0.6-1.5) mg/dL BUN/Creatinine Ratio 20.80 H (12.00-20.00) Ratio Glucose 119 H (70-110) mg/dL POC Glucose (mg/dL) 139 H (70-110) mg/dL 06/01/24 Range/Units 06:36 RBC (4.10-5.20) X 10*6/uL Hgb (12.0-15.0) g/dL Hct (37.2-46.3) % Immature Gran # (0.00-0.04) X 10*3/uL Creatinine (0.6-1.5) mg/dL BUN/Creatinine Ratio (12.00-20.00) Ratio Glucose (70-110) mg/dL POC Glucose (mg/dL) 138 H (70-110) mg/dL Assessment and Plan (1) Diverticulitis Narrative/Plan: Patient doing well today. Continue increasing activity. Minimize IV narcotic use. Ambulate. Current Visit: Yes Status: Acute Code(s): K57.92 - DVTRCLI OF INTEST, PART UNSP, W/O PERF OR ABSCESS W/O BLEED SNOMED Code(s): 608471393
[2024-06-01 10:12] LABS: Blood Urea Nitrogen 11.5 mg/dL (9.0-27.0); Calcium 8.4 mg/dL (8.7-10.3); Carbon Dioxide 26.1 mmol/L (21.6-31.8); Chloride 105 mmol/L (96-109); Glucose 92 mg/dL (70-110); Potassium 3.2 mmol/L (3.5-5.5); Sodium 141 mmol/L (135-145)
[2024-06-01 11:24] LABS: Glucose,Whole Blood 106 mg/dL (70-110)
[2024-06-01] MEDS ORDERED: Phosphorus Replacement Protoco 1 EACH MISC MISCELLANE PRN (15:51)
[2024-06-01] MEDS ORDERED: Magnesium Replacement Protocol 1 EACH MISC MISCELLANE PRN (15:51)
--- NOTE | 2024-06-01 17:03 | XR ---
EXAMINATION TYPE: XR chest 1V portable DATE OF EXAM: 06/01/2024 4:39 PM CLINICAL INDICATION: Female, 54 years old with history of chf; [facility] COMPARISON: Chest radiographs from 05/28/2024 TECHNIQUE: XR chest 1V portable Frontal view of the chest. FINDINGS: Lungs/Pleura: Improved left midlung airspace opacities. There is no evidence of pleural effusion, foc al consolidation, or pneumothorax. Pulmonary vascularity: Mild haziness throughout the lungs. Heart/mediastinum: Cardiomediastinal silhouette is unremarkable. Musculoskeletal: No acute osseous pathology. IMPRESSION: Mild haziness throughout the lungs could represent pulmonary edema. Improved left midlung airspace opacities. [facility], , 06/01/2024 5:01 PM
[2024-06-01 17:12] LABS: Glucose,Whole Blood 149 mg/dL (70-110)
--- NOTE | 2024-06-01 18:54 | XR ---
EXAMINATION TYPE: XR abdomen complete w decub DATE OF EXAM: 06/01/2024 COMPARISON: 08/10/2023 INDICATION: Recent abdomen surgery, pain TECHNIQUE: Abdomen is examined in supine and upright views. Left lateral decubitus views obtained. FINDINGS: Surgical skin chantell are in the midline. No free air is identified. Normal colonic bowel gas is present. Drainage catheters within the abdomen and pelvis. Filters within the region of the inferior vena cava L2-3 level. Psoas margins are normal. No organomegaly is present. IMPRESSION: 1. Postsurgical changes. No suspicious acute change identified. [facility], Workstation: [facility], 06/01/2024 6:51 PM
[2024-06-01 20:15] LABS: Glucose,Whole Blood 166 mg/dL (70-110)
[2024-06-02 01:55] LABS: Glucose,Whole Blood 145 mg/dL (70-110)
--- NOTE | 2024-06-02 02:37 | PN ---
PROGRESS NOTE DATE OF SERVICE: 06/01/2024 SUBJECTIVE: This 54-year-old woman admitted with exploratory laparotomy and reversal of colostomy, is slightly uncomfortable. The previous chest x-ray which I reviewed closely showed some bilateral atelectasis. PAST MEDICAL HISTORY: Reviewed. REVIEW OF SYSTEMS: Fourteen-point review is negative except as mentioned earlier. CURRENT MEDICATIONS: Reviewed include DuoNeb. PHYSICAL EXAMINATION: VITAL SIGNS: Pulse is 66, blood pressure 104/70, respirations 16. HEENT: Conjunctivae normal. NECK: No JVD. CARDIOVASCULAR: S1, S2. LUNGS: Breath sounds diminished at bases bilaterally. Scattered rhonchi. ABDOMEN: Soft. Mild diffuse distention. LEGS: No edema. No swelling. LABORATORY DATA: Potassium 3.2. ASSESSMENT: 1. Status post exploratory laparotomy and reversal of colostomy. 2. Bilateral atelectasis. 3. History of diverticulitis. 4. Chronic obstructive pulmonary disease. 5. Multiple complex medical issues. RECOMMENDATIONS AND DISCUSSION: I recommend to continue current management and current treatment. Otherwise, I recommend to continue with bronchodilators. I would recommend repeat chest x-ray. Monitor blood sugars closely. Further recommendations to follow. Repeat labs. MMODL / IJN: [id number] /
[2024-06-02 06:25] LABS: Glucose,Whole Blood 110 mg/dL (70-110)
[2024-06-02 08:50] LABS: Magnesium 2.1 mg/dL (1.5-2.4)
[2024-06-02 08:51] LABS: Basophils # (A) 0.05 X 10*3/uL (0.00-0.10); Basophils % (A) 0.7 %; Eosinophils # (A) 0.18 X 10*3/uL (0.04-0.35); Eosinophils % (A) 2.5 %; HGB 12.5 g/dL (12.0-15.0); Lymphocytes # (A) 1.25 X 10*3/uL (0.90-5.00); Lymphocytes % (A) 17.1 %; MCH 31.9 pg (27.0-32.0); MCHC 33.8 g/dL (32.0-37.0); MCV 94.4 FL (80.0-97.0); Mean Platelet Volume 11.3 FL (9.5-12.2); Monocytes # (A) 0.62 X 10*3/uL (0.20-1.00); Monocytes % (A) 8.5 %; NRBC Per 100 WBC 0 X 10*3/uL (0.00-0.01); Neutrophils # (A) 5.16 X 10*3/uL (1.80-7.70); Neutrophils % (A) 70.5 %; Platelet Count 252 X 10*3/uL (140-440); RBC 3.92 X 10*6/uL (4.10-5.20); RDW 13.6 % (11.5-14.5); WBC 7.31 X 10*3/uL (4.50-10.00)
[2024-06-02 08:56] LABS: ALT 33 U/L (8-44); AST 34 U/L (13-35); Albumin 3.4 g/dL (3.8-4.9); Albumin/Globulin Ratio 1.48 Ratio (1.60-3.17); Alkaline Phosphatase 172 U/L (41-126); Blood Urea Nitrogen 11.1 mg/dL (9.0-27.0); Calcium 8.4 mg/dL (8.7-10.3); Chloride 102 mmol/L (96-109); Globulin 2.3 g/dL (1.6-3.3); Glucose 130 mg/dL (70-110); Potassium 3.3 mmol/L (3.5-5.5); Sodium 141 mmol/L (135-145); Total Bilirubin 0.5 mg/dL (0.3-1.2); Total Protein 5.7 g/dL (6.2-8.2)
[2024-06-02 11:49] LABS: Glucose,Whole Blood 121 mg/dL (70-110)
--- NOTE | 2024-06-02 12:38 | P.PN ---
Subjective Progress Note Date: 06/02/24 CHIEF COMPLAINT: Diverticulitis HISTORY OF PRESENT ILLNESS: Patient is postop day #7 status post exploratory laparotomy, lysis of extensive adhesions, reversal of colostomy, repair of incisional hernia greater than 10 cm, repair of parastomal hernia, partial omentectomy and right oophorectomy. Patient reports her pain is improving. She still requesting pain medication. IV pain medication had been discontinued. He does take [place] 10/325mg twice a day at home. she is having bowel movements. She has been up and ambulating. Denies any nausea or vomiting. Afebrile. WBC 7.31 potassium is 3.3 PHYSICAL EXAM: VITAL SIGNS: Reviewed. GENERAL: Well-developed in no acute distress. ABDOMEN: Soft. Nondistended. Prevena wound VAC dressing intact NEUROLOGIC: Alert and oriented. Cranial nerves II through XII grossly intact. ASSESSMENT: 1. Diverticulitis history 2. Hypokalemia 3. Possible atelectasis PLAN: -Anticipate possible discharge home tomorrow -Potassium supplement ordered -Encourage patient to ambulate -Increase Orosi to q 6 hours as needed for pain -DVT prophylaxis subcu heparin and GI prophylaxis Pepcid Physician Teaching Young note has been reviewed by physician. Signing provider agrees with the documented findings, assessment, and plan of care. Objective - Vital Signs Vital signs: Vital Signs Temp 98.1 F 06/02/24 06:50 Pulse 68 06/02/24 12:05 Resp 17 06/02/24 08:00 BP 137/88 06/02/24 06:50 Pulse Ox 95 06/02/24 06:50 FiO2 Intake & Output 06/01/24 06/02/24 06/02/24 18:59 06:59 18:59 Intake Total 600 250 Output Total 20 20 20 Balance 580 -20 230 Intake: Oral 600 250 Output: Drainage 20 20 20 Right Abdomen 20 20 20 Other: Voiding Method Toilet Toilet Toilet # Voids 4 6 - Labs CBC & Chem 7: 06/02/24 03:27 06/02/24 03:27 Labs: Abnormal Lab Results - Last 24 Hours (Table) 06/01/24 06/01/24 06/02/24 Range/Units 17:11 20:06 01:54 RBC (4.10-5.20) X 10*6/uL Hct (37.2-46.3) % Immature Gran # (0.00-0.04) X 10*3/uL Potassium (3.5-5.5) mmol/L Creatinine (0.6-1.5) mg/dL BUN/Creatinine Ratio (12.00-20.00) Ratio Glucose (70-110) mg/dL POC Glucose (mg/dL) 149 H 166 H 145 H (70-110) mg/dL Calcium (8.7-10.3) mg/dL Alkaline Phosphatase (41-126) U/L Total Protein (6.2-8.2) g/dL Albumin (3.8-4.9) g/dL Albumin/Globulin Ratio (1.60-3.17) Ratio 06/02/24 06/02/24 06/02/24 Range/Units 03:27 03:27 11:47 RBC 3.92 L (4.10-5.20) X 10*6/uL Hct 37.0 L (37.2-46.3) % Immature Gran # 0.05 H (0.00-0.04) X 10*3/uL Potassium 3.3 L (3.5-5.5) mmol/L Creatinine 0.5 L (0.6-1.5) mg/dL BUN/Creatinine Ratio 22.20 H (12.00-20.00) Ratio Glucose 130 H (70-110) mg/dL POC Glucose (mg/dL) 121 H (70-110) mg/dL Calcium 8.4 L (8.7-10.3) mg/dL Alkaline Phosphatase 172 H (41-126) U/L Total Protein 5.7 L (6.2-8.2) g/dL Albumin 3.4 L (3.8-4.9) g/dL Albumin/Globulin Ratio 1.48 L (1.60-3.17) Ratio
[2024-06-02] MEDS: POTASSIUM CHLORIDE ER 20 MEQ TAB.ER PO STA (13:27)
[2024-06-02 17:15] LABS: Glucose,Whole Blood 118 mg/dL (70-110)
[2024-06-02] MEDS: HYDROcodone/APAP 10-325MG 1 EACH TAB PO PRN (19:59)
[2024-06-02 20:15] LABS: Glucose,Whole Blood 154 mg/dL (70-110)
--- NOTE | 2024-06-03 00:18 | P.PN ---
Subjective Progress Note Date: 06/02/24 - Reason for Consult Consult date: 05/27/24 Medical management, status post exploratory laparotomy, lysis of adhesions - History of Present Illness This is a 54-year-old female who was recently admitted under surgery services status post exploratory laparotomy, lysis of adhesions that were extensive, reversal of colostomy with repair of incisional hernia greater than 10 cm with repair of parastomal hernia and partial omentectomy with right oophorectomy. Patient is reporting severe 10/10 pain and awaiting to receive an IV. Patient is continued on n.p.o. and diet will be resumed per surgery. Awaiting follow-up labs and recommend replace electrolytes per protocol. 05/28/2024 Patient is seen and evaluated in follow-up today. Currently sitting up in the chair sleeping although arousable. Patient reports significant pain and is maintained on IV morphine as well as IV Dilaudid and per nursing staff has been [id number]. Patient also using [place] [address] 10 and currently clear liquids per surgery at this time. Patient will need PT/OT therapy as well as ECF on discharge. No bowel activity noted as of yet and white count noted to be 10.8, other labs reviewed including BMP and within normal limits other than mildly elevated blood sugar. Will continue current regimen of insulin with long-acting as well as sliding scale and will adjust accordingly. 05/29/2024 Patient is seen and evaluated in follow-up currently sitting up in the chair and lethargic. Nursing staff reports she just received IV pain medications. Patient is maintained on clear liquids with no bowel activity as of yet and has been up and walking. Patient's white count remains at 10 and patient remains afebrile. Chest x-ray done shows possible infiltrate most likely atelectasis and encouraged incentive spirometer use at least 10 times every hour while awake. Also recommend decreasing the fluid rate as patient has been receiving a large amount since surgery. Will watch and repeat labs and if developing any fevers or respiratory distress will consider antibiotic therapy and further workup. Patient denies any worsening shortness of breath and does have history of nicotine dependence smokes over a pack a day with history of COPD. Will make breathing treatment scheduled and follow-up with repeat labs. 05/30/2024 Patient is seen in follow-up today and is awake today reporting she feels improved although continues to have severe abdominal pain. Patient was able to have a bowel movement and is tolerating diet with small frequent meals. General surgery following and attending and patient will be going to [facility] on discharge. Patient continues on breathing treatments along with supplemental oxygen although was noted to room air on exam. Patient does have history of COPD. Potassium 3.3 today and recommend replace. Follow-up antibiotics. White count has normalized and patient remains afebrile. 06/02/2024 Patient is seen in follow-up today currently sitting up in the chair eating regular food and tolerating. Patient reports has been having bowel movements and has been up and walking. Patient continues with some mild abdominal distention although feels it is improved and patient is on room air maintained on breathing treatments and denies any shortness of breath. Patient was up and walking the halls multiple times and will be returning home on discharge. Discussing possible discharge planning in the next 24 hours. Replace electrolytes per protocol as potassium was mildly low. Review of systems: Constitutional: No reports of fatigue, fever, or chills Cardiovascular: No reports of chest pain or palpitations Respiratory: No reports of shortness of breath, reports chronic cough GI: reports of occasional nausea, no reports of vomiting, reports passing gas and had a bowel movement, reports abdominal pain is improving : No reports of dysuria or retention Neurovascular: reports of generalized weakness All medications have been reviewed PHYSICAL EXAMINATION: GENERAL: The patient is alert and oriented x2-3, baseline, Well developed, ill- appearing, elderly appearing HEENT: Pupils are round and equally reacting to light. EOMI. No scleral icterus. No conjunctival pallor. Normocephalic, atraumatic. No pharyngeal erythema. No thyromegaly. CARDIOVASCULAR: S1 and S2 muffled PULMONARY: Diminished breath sounds bilaterally with a few scattered rhonchi and faint expiratory wheezing noted on exam, currently on room air on exam ABDOMEN: Soft,tender, nondistended, normal active bowel sounds. No palpable organomegaly. MUSCULOSKELETAL: No joint swelling or deformity. EXTREMITIES: No cyanosis, clubbing, or pedal edema. NEUROLOGICAL: Gross neurological examination did not reveal any focal deficits. Diffusely weak SKIN: No rashes. Assessment: Status post exploratory laparotomy with lysis of extensive adhesions, reversal of colostomy, repair of incisional hernia/parastomal hernia/partial omentectomy, and right oophorectomy History of diverticulitis History of COPD, not in exacerbation History of CVA/TIA Diabetes mellitus, type II, uncontrolled with hyper and hypoglycemia History of DVT GERD Hyperlipidemia Hypertension Depression/PTSD Continued ongoing nicotine dependence GI prophylaxis DVT prophylaxis Full code Plan: Patient is status post surgical intervention with general surgery is attending and being monitored. Diet has been advanced per surgery and tolerating and has been having bowel movements Home medications reviewed and resumed as appropriate Continue Accu-Cheks before meals and at bedtime and will adjust insulins accordingly Continue DuoNebs scheduled as patient does have history of COPD. Patient will need a nebulizer on discharge to continue with DuoNeb treatments to manage COPD. Follow-up on repeat labs and replace electrolytes per protocol. Potassium was 3.3 and will replace per protocol Patient will be returning home on discharge as patient is up and walking inde pendently frequently and around the halls. Discussing possible discharge planning in 24 hours Thank you kindly for this consultation. We will continue to follow with general surgery during hospitalization. The impression and plan of care has been dictated by Jennifer Thakkar Nurse Pra ctitioner as directed. Dr. Christophe MD I have performed a history and examination and MDM of this patient, discussed the same with the dictator, and agree with the dictator's assessment and plan as written ,documented as a scribe. Based on total visit time, I have performed more than 50% of the visit. Objective - Vital Signs Vital signs: Vital Signs Temp 98.1 F 06/02/24 06:50 Pulse 68 06/02/24 12:17 Resp 17 06/02/24 08:00 BP 137/88 06/02/24 06:50 Pulse Ox 95 06/02/24 06:50 FiO2 Intake & Output 06/01/24 06/02/24 06/02/24 18:59 06:59 18:59 Intake Total 600 250 Output Total 20 20 20 Balance 580 -20 230 Intake: Oral 600 250 Output: Drainage 20 20 20 Right Abdomen 20 20 20 Other: Voiding Method Toilet Toilet Toilet # Voids 4 6 - Labs CBC & Chem 7: 06/02/24 03:27 06/02/24 03:27 Labs: Abnormal Lab Results - Last 24 Hours (Table) 06/01/24 06/01/24 06/02/24 Range/Units 17:11 20:06 01:54 RBC (4.10-5.20) X 10*6/uL Hct (37.2-46.3) % Immature Gran # (0.00-0.04) X 10*3/uL Potassium (3.5-5.5) mmol/L Creatinine (0.6-1.5) mg/dL BUN/Creatinine Ratio (12.00-20.00) Ratio Glucose (70-110) mg/dL POC Glucose (mg/dL) 149 H 166 H 145 H (70-110) mg/dL Calcium (8.7-10.3) mg/dL Alkaline Phosphatase (41-126) U/L Total Protein (6.2-8.2) g/dL Albumin (3.8-4.9) g/dL Albumin/Globulin Ratio (1.60-3.17) Ratio 06/02/24 06/02/24 06/02/24 Range/Units 03:27 03:27 11:47 RBC 3.92 L (4.10-5.20) X 10*6/uL Hct 37.0 L (37.2-46.3) % Immature Gran # 0.05 H (0.00-0.04) X 10*3/uL Potassium 3.3 L (3.5-5.5) mmol/L Creatinine 0.5 L (0.6-1.5) mg/dL BUN/Creatinine Ratio 22.20 H (12.00-20.00) Ratio Glucose 130 H (70-110) mg/dL POC Glucose (mg/dL) 121 H (70-110) mg/dL Calcium 8.4 L (8.7-10.3) mg/dL Alkaline Phosphatase 172 H (41-126) U/L Total Protein 5.7 L (6.2-8.2) g/dL Albumin 3.4 L (3.8-4.9) g/dL Albumin/Globulin Ratio 1.48 L (1.60-3.17) Ratio
[2024-06-03 02:35] LABS: Glucose,Whole Blood 199 mg/dL (70-110)
[2024-06-03 05:34] LABS: Glucose,Whole Blood 140 mg/dL (70-110)
[2024-06-03 08:42] VITALS: BP 160/90; RESP 18; TEMP 98.3
[2024-06-03 09:42] LABS: African American GFR (CKD) >90 (>60 ml/min/1.73 sqM); Anion Gap 5 mmol/L; Blood Urea Nitrogen 14 mg/dL (7-17); Calcium 8.8 mg/dL (8.4-10.2); Carbon Dioxide 30 mmol/L (22-30); Chloride 103 mmol/L (98-107); Glucose 129 mg/dL (74-99); Non-African American GFR(CKD) >90 (>60 ml/min/1.73 sqM); Potassium 3.9 mmol/L (3.5-5.1); Sodium 138 mmol/L (137-145)
[2024-06-03 11:43] VITALS: PULSE 70
[2024-06-03 12:37] LABS: Glucose,Whole Blood 129 mg/dL (70-110)
--- NOTE | 2024-06-03 13:23 | P.DS ---
Providers Date of admission: 05/26/24 05:34 Expected date of discharge: 06/03/24 Attending physician: Haroon Lewis Consults: 05/26/24 10:35 Consult Physician Routine Consulting Provider: Cindy Holley Consult Reason/Comments: medical Do you want consulting provider notified?: Yes Primary care physician: Stated None Hospital Course: Discharge diagnosis 1. Diverticulitis history 2. Hypokalemia improved 3. Atelectasis Hospital course This is a 54-year-old female with a known history of diverticulitis. She is status post exploratory laparotomy, lysis of extensive adhesions, reversal of colostomy, repair of incisional hernia greater than 10 cm, repair of parastomal hernia, partial omentectomy and right oophorectomy. Patient's pain is controlled. She is tolerating diet. She has been up and ambulating. She is having bowel movements. She is afebrile. She is stable for discharge. Please refer to chart for any further details. Physician Reservations Specialist note has been reviewed by physician. Signing provider agrees with the documented findings, assessment, and plan of care. Patient Condition at Discharge: Stable Plan - Discharge Summary Discharge Rx Participant: No New Discharge Prescriptions: New HYDROcodone/APAP 10-325MG [[place] 10-325] 1 tab PO Q8HR PRN 3 Days #9 tab PRN Reason: Pain Continue traZODone HCL 150 mg PO HS busPIRone HCL 15 mg PO TID Gabapentin 800 mg PO TID 3 Days #9 tab Apixaban [Eliquis] 5 mg PO BID Dapagliflozin Propanediol [Farxiga] 5 mg PO DAILY Famotidine 40 mg PO DAILY Ezetimibe [Zetia] 10 mg PO DAILY hydroCHLOROthiazide [Hydrodiuril] 12.5 mg PO DAILY Insulin Glargine,Hum.rec.anlog [Lantus Solostar Pen] 42 unit SQ DAILY Atorvastatin [Lipitor] 80 mg PO DAILY lisinopriL 30 mg PO DAILY cloNIDine HCL 0.05 mg PO BID Venlafaxine HCl [Effexor XR] 150 mg PO DAILY Discontinued HYDROcodone/APAP 10-325MG [[place]win 10-325] 1 tab PO Q12H PRN PRN Reason: Pain Discharge Medication List Insulin Glargine,Hum.rec.anlog [Lantus Solostar Pen] 42 unit SQ DAILY 08/04/21 [History] hydroCHLOROthiazide [Hydrodiuril] 12.5 mg PO DAILY 08/04/21 [History] busPIRone HCL 15 mg PO TID 03/14/23 [History] traZODone HCL 150 mg PO HS 03/14/23 [History] Gabapentin 800 mg PO TID 3 Days #9 tab 07/12/23 [Rx] Atorvastatin [Lipitor] 80 mg PO DAILY 08/07/23 [History] Apixaban [Eliquis] 5 mg PO BID 05/03/24 [History] Dapagliflozin Propanediol [Farxiga] 5 mg PO DAILY 05/03/24 [History] Ezetimibe [Zetia] 10 mg PO DAILY 05/03/24 [History] Famotidine 40 mg PO DAILY 05/03/24 [History] Venlafaxine HCl [Effexor XR] 150 mg PO DAILY 05/03/24 [History] cloNIDine HCL 0.05 mg PO BID 05/03/24 [History] lisinopriL 30 mg PO DAILY 05/03/24 [History] HYDROcodone/APAP 10-325MG [[place]win 10-325] 1 tab PO Q8HR PRN 3 Days #9 tab 06/03/24 [Rx] Follow up Appointment(s)/Referral(s): Residential Home[facility]Health [NON-STAFF] - 1-2 Days Haroon Lewis MD [STAFF PHYSICIAN] - 1 Week Activity/Diet/Wound Care/Special Instructions: No driving while taking [place] No lifting over 10 pounds Shower daily. No soaking or tub baths for 2 weeks Very light activity until you are reevaluated at your follow up appointment with your surgeon Keep a log of JG drain output and bring with you to your follow-up appointment Milk/strip drains 2-3 times a day Discharge Disposition: HOME SELF-CARE
--- NOTE | 2024-06-04 09:53 | P.PN ---
Subjective Progress Note Date: 06/03/24 - Reason for Consult Consult date: 05/27/24 Medical management, status post exploratory laparotomy, lysis of adhesions - History of Present Illness This is a 54-year-old female who was recently admitted under surgery services status post exploratory laparotomy, lysis of adhesions that were extensive, reversal of colostomy with repair of incisional hernia greater than 10 cm with repair of parastomal hernia and partial omentectomy with right oophorectomy. Patient is reporting severe 10/10 pain and awaiting to receive an IV. Patient is continued on n.p.o. and diet will be resumed per surgery. Awaiting follow-up labs and recommend replace electrolytes per protocol. 05/28/2024 Patient is seen and evaluated in follow-up today. Currently sitting up in the chair sleeping although arousable. Patient reports significant pain and is maintained on IV morphine as well as IV Dilaudid and per nursing staff has been [id number]. Patient also using [place] 10 and currently clear liquids per surgery at this time. Patient will need PT/OT therapy as well as ECF on discharge. No bowel activity noted as of yet and white count noted to be 10.8, other labs reviewed including BMP and within normal limits other than mildly elevated blood sugar. Will continue current regimen of insulin with long-acting as well as sliding scale and will adjust accordingly. 05/29/2024 Patient is seen and evaluated in follow-up currently sitting up in the chair and lethargic. Nursing staff reports she just received IV pain medications. Patient is maintained on clear liquids with no bowel activity as of yet and has been up and walking. Patient's white count remains at 10 and patient remains afebrile. Chest x-ray done shows possible infiltrate most likely atelectasis and encouraged incentive spirometer use at least 10 times every hour while awake. Also recommend decreasing the fluid rate as patient has been receiving a large amount since surgery. Will watch and repeat labs and if developing any fevers or respiratory distress will consider antibiotic therapy and further workup. Patient denies any worsening shortness of breath and does have history of nicotine dependence smokes over a pack a day with history of COPD. Will make breathing treatment scheduled and follow-up with repeat labs. 05/30/2024 Patient is seen in follow-up today and is awake today reporting she feels improved although continues to have severe abdominal pain. Patient was able to have a bowel movement and is tolerating diet with small frequent meals. General surgery following and attending and patient will be going to [facility] on discharge. Patient continues on breathing treatments along with supplemental oxygen although was noted to room air on exam. Patient does have history of COPD. Potassium 3.3 today and recommend replace. Follow-up antibiotics. White count has normalized and patient remains afebrile. 06/02/2024 Patient is seen in follow-up today currently sitting up in the chair eating regular food and tolerating. Patient reports has been having bowel movements and has been up and walking. Patient continues with some mild abdominal distention although feels it is improved and patient is on room air maintained on breathing treatments and denies any shortness of breath. Patient was up and walking the halls multiple times and will be returning home on discharge. Discussing possible discharge planning in the next 24 hours. Replace electrolytes per protocol as potassium was mildly low. 06/03/2024 Patient is seen in follow-up today appears to be doing relatively well with sister at bedside. Patient has been tolerating diet and having bowel movements and is being discharged by general surgery. Patient instructed to continue using incentive spirometer at least 10 times every hour while awake. Patient also would recommend using breathing treatments and/or inhalers and maintenance inhaler for COPD. Patient has extensive history of smoking and have encouraged complete tobacco cessation. Patient continues with some abdominal tenderness although much improved she reports. Patient is medically stable once cleared by general surgery. Patient instructed to follow-up with primary care provider on discharge. Review of systems: Constitutional: No reports of fatigue, fever, or chills Cardiovascular: No reports of chest pain or palpitations Respiratory: No reports of shortness of breath, reports chronic cough GI: No reports of nausea, no reports of vomiting, reports passing gas and having bowel movements, reports mild abdominal discomfort with movement : No reports of dysuria or retention Neurovascular: reports of generalized weakness All medications have been reviewed PHYSICAL EXAMINATION: GENERAL: The patient is alert and oriented x2-3, baseline, Well developed, ill- appearing, elderly appearing HEENT: Pupils are round and equally reacting to light. EOMI. No scleral icterus. No conjunctival pallor. Normocephalic, atraumatic. No pharyngeal erythema. No thyromegaly. CARDIOVASCULAR: S1 and S2 muffled PULMONARY: Diminished breath sounds bilaterally with a few scattered rhonchi and no wheezing noted on exam, currently on room air on exam ABDOMEN: Soft, less tender, nondistended, normal active bowel sounds. No palpable organomegaly. MUSCULOSKELETAL: No joint swelling or deformity. EXTREMITIES: No cyanosis, clubbing, or pedal edema. NEUROLOGICAL: Gross neurological examination did not reveal any focal deficits. Diffusely weak SKIN: No rashes. Assessment: Status post exploratory laparotomy with lysis of extensive adhesions, reversal of colostomy, repair of incisional hernia/parastomal hernia/partial omentectomy, and right oophorectomy History of diverticulitis History of COPD, not in exacerbation History of CVA/TIA Diabetes mellitus, type II, uncontrolled with hyper and hypoglycemia History of DVT GERD Hyperlipidemia Hypertension Depression/PTSD Continued ongoing nicotine dependence GI prophylaxis DVT prophylaxis Full code Plan: Patient is status post surgical intervention with general surgery is attending and being monitored. Diet has been advanced per surgery and tolerating and has been having bowel movements Home medications reviewed and resumed as appropriate Continue Accu-Cheks before meals and at bedtime and will adjust insulins accordingly Continue DuoNebs scheduled as patient does have history of COPD. Patient will need a nebulizer on discharge to continue with DuoNeb treatments to manage COPD. Discussing discharge today and patient is medically stable recommend outpatient follow-up with primary care provider as well as surgery as scheduled patient will be returning home on discharge Thank you kindly for this consultation. We will continue to follow with general surgery during hospitalization. The impression and plan of care has been dictated by Jennifer Thakkar, Nurse Practitioner as directed. Dr. Christophe MD I have performed a history and examination and MDM of this patient, discussed the same with the dictator, and agree with the dictator's assessment and plan as written ,documented as a scribe. Based on total visit time, I have performed more than 50% of the visit. Objective - Vital Signs Vital signs: Vital Signs Temp 98.3 F 06/03/24 07:05 Pulse 70 06/03/24 11:52 Resp 18 06/03/24 07:45 BP 160/90 06/03/24 07:05 Pulse Ox 93 L 06/03/24 07:05 FiO2 Intake & Output 06/02/24 06/03/24 06/03/24 18:59 06:59 18:59 Intake Total 500 200 Output Total 20 40 Balance 480 -40 200 Intake: Oral 500 200 Output: Drainage 20 40 Right Abdomen 20 40 Other: Voiding Method Toilet Toilet Toilet # Voids 2 3 - Labs CBC & Chem 7: 06/02/24 03:27 06/03/24 09:13 Labs: Abnormal Lab Results - Last 24 Hours (Table) 06/02/24 06/02/24 06/03/24 Range/Units 17:14 20:12 02:33 Creatinine (0.52-1.04) mg/dL Glucose (74-99) mg/dL POC Glucose (mg/dL) 118 H 154 H 199 H (70-110) mg/dL 06/03/24 06/03/24 06/03/24 Range/Units 05:32 09:13 12:36 Creatinine 0.49 L (0.52-1.04) mg/dL Glucose 129 H (74-99) mg/dL POC Glucose (mg/dL) 140 H 129 H (70-110) mg/dL
--- NOTE | 2024-06-16 21:54 | CDI ---
Documentation Clarification Form Date: 06/16/2024 09:47:51 PM From: Tatum Gore Phone: Admit Date: 05/26/2024 05:34:00 AM Patient Name: Inna Meade Visit Number: [id number] Discharge Date: 06/03/2024 02:23:00 PM ATTENTION: The Clinical Documentation Specialists (CDI) and [facility] Coding Staff appreciate your assistance in clarifying documentation. Please respond to the clarification below the line at the bottom and electronically sign. The CDI & [facility] Coding staff will review the response and follow-up if needed. Please note: Queries are made part of the Legal Health Record. If you have any questions, please contact the author of this message via ITS. Doctor/Provider: Haroon Lewis The final diagnosis of the pathology report states benign multiloculatedovarian serous cystadenofibroma. Coding guidelines do not allow coding professionals to code based on pathology results; therefore, clarification is requested. History/risk factors: 54yo F, diverticulitis, colostomy, hypokalemia, atelectasis, parastomal hernia, incisional hernia Clinical Indicators: ovary which was adherent to the rectalstump. Using blunt sharpdissectionelectrocauterytheherniawas dissectedfree. The ovary had acyst. There was somebleedingfrom the ovary. Treatment: oophorectomy. The ovarian vessels wereligatedwith 0 silk ties. And then the ovary was sent to pathology. Please clarify if you agree with the pathology report diagnosis of ovarian serous cystadenofibroma: [ ] Yes [ ] No [ ] Other (please specify) [ xx] Unable to determine (Template Last Revised: October 2020) MTDD
== END 2024-06-03 14:23 | disposition home or self-care (01) | DRG 336 ==
LOC: OR 05:33 → 4SSUR 05:34 → OR 05:34 → 4SSUR 10:01
PROVIDERS: ADMIT Surgery; ATTEND Surgery
PROC: 0WQF0ZZ Repair Abdominal Wall, Open Approach (ICD-10-PCS; 2024-05-26)
PROC: 0DBU0ZZ Excision of Omentum, Open Approach (ICD-10-PCS; 2024-05-26)
PROC: 0WQF0ZZ Repair Abdominal Wall, Open Approach (ICD-10-PCS; 2024-05-26)
PROC: 00HU33Z Insertion of Infusion Device into Spinal Canal, Percutaneous Approach (ICD-10-PCS; 2024-05-26)
PROC: 3E0R3BZ Introduction of Anesthetic Agent into Spinal Canal, Percutaneous Approach (ICD-10-PCS; 2024-05-26)
PROC: 0DNU0ZZ Release Omentum, Open Approach (ICD-10-PCS; principal; 2024-05-26 07:00)
PROC: 0UT00ZZ Resection of Right Ovary, Open Approach (ICD-10-PCS; 2024-05-26 07:00)
DX: Z43.3 Encounter for attention to colostomy (principal); J98.11 Atelectasis; K57.32 Diverticulitis of large intestine without perforation or abscess without bleeding; I69.320 Aphasia following cerebral infarction; E11.65 Type 2 diabetes mellitus with hyperglycemia; E11.649 Type 2 diabetes mellitus with hypoglycemia without coma; J44.9 Chronic obstructive pulmonary disease, unspecified; I10 Essential (primary) hypertension; F32.A Depression, unspecified; Z79.4 Long term (current) use of insulin; K43.2 Incisional hernia without obstruction or gangrene; D27.0 Benign neoplasm of right ovary; K43.5 Parastomal hernia without obstruction or gangrene; K21.9 Gastro-esophageal reflux disease without esophagitis; E78.5 Hyperlipidemia, unspecified; F43.10 Post-traumatic stress disorder, unspecified; E87.6 Hypokalemia; K66.0 Peritoneal adhesions (postprocedural) (postinfection); F17.210 Nicotine dependence, cigarettes, uncomplicated; Z79.01 Long term (current) use of anticoagulants; Z79.84 Long term (current) use of oral hypoglycemic drugs; Z79.899 Other long term (current) drug therapy; Z86.718 Personal history of other venous thrombosis and embolism; Z86.14 Personal history of Methicillin resistant Staphylococcus aureus infection
CPT/HCPCS: 36410; 71045; 71046; 74021; 76937; 80048; 80053; 81025; 83036; 83735; 85025; 88302; 88305; 88307; 94640; 94760

== ENCOUNTER 2024-06-15 13:30 | Inpatient (IN) | payer MEDICARE, OTHER ==
--- NOTE | 2024-06-15 14:08 | ED ---
General Adult HPI - General Source: patient, RN notes reviewed Mode of arrival: wheelchair Limitations: no limitations <Divya Hammonds - Last Filed: 06/15/24 16:42> <Raffi De - Last Filed: 06/15/24 18:44> - General Chief complaint: Skin/Abscess/Foreign Body Stated complaint: Post-op abd pain Time Seen by Provider: 06/15/24 13:48 - History of Present Illness Initial comments: This is a 54-year-old female is presenting to the emergency department for chief complaint of post surgical complication. Patient states that she had multiple hernia repairs completed with Dr. Lewis, recent follow-up completed this last Sunday where chantell were removed. Patient states that over the past few days she has been having worsening abdominal pain, erythema over incision, warmth to the touch, and diarrhea. She is currently concerned that she may be developing an infection. States that she is felt chilled with no reported fevers. Endorses nausea with no episodes of emesis. Denies urinary complaints. (Divya Hammonds) - Related Data Home Medications Medication Instructions Recorded Confirmed Insulin Glargine,Hum.rec.anlog 42 unit SQ DAILY 08/04/21 06/15/24 [Lantus Solostar Pen] hydroCHLOROthiazide [Hydrodiuril] 12.5 mg PO DAILY 08/04/21 06/15/24 busPIRone HCL 15 mg PO TID 03/14/23 06/15/24 traZODone HCL 150 mg PO HS 03/14/23 06/15/24 Atorvastatin [Lipitor] 80 mg PO DAILY 08/07/23 06/15/24 Apixaban [Eliquis] 5 mg PO BID 05/03/24 06/15/24 Dapagliflozin Propanediol [Farxiga] 5 mg PO DAILY 05/03/24 06/15/24 Ezetimibe [Zetia] 10 mg PO DAILY 05/03/24 06/15/24 Famotidine 40 mg PO DAILY 05/03/24 06/15/24 Venlafaxine HCl [Effexor XR] 150 mg PO DAILY 05/03/24 06/15/24 cloNIDine HCL 0.05 mg PO BID 05/03/24 06/15/24 lisinopriL 30 mg PO DAILY 05/03/24 06/15/24 Ipratropium-Albuterol Nebulize 3 ml INHALATION RT-QID 06/15/24 06/15/24 [Duoneb 0.5 mg-3 mg/3 ml Soln] Previous Rx's Medication Instructions Recorded Gabapentin 800 mg PO TID 3 Days #9 tab 07/12/23 HYDROcodone/APAP 10-325MG [[place] 1 tab PO Q8HR PRN 3 Days #9 tab 06/03/24 10-325] Allergies Allergy/AdvReac Type Severity Reaction Status Date / Time No Known Allergies Allergy Verified 06/15/24 15:23 Review of Systems ROS Other: All systems not noted in ROS Statement are negative. <Divya Hammonds - Last Filed: 06/15/24 16:42> ROS Other: All systems not noted in ROS Statement are negative. <Raffi De - Last Filed: 06/15/24 18:44> ROS Statement: Those systems with pertinent positive or pertinent negative responses have been documented in the HPI. Past Medical History Past Medical History: COPD, CVA/TIA, Diabetes Mellitus, Deep Vein Thrombosis (DVT), GERD/Reflux, Hyperlipidemia, Hypertension Additional Past Medical History / Comment(s): CVA 2020- expressive aphasia; 2 DVT's; diverticulitis; hernia History of Any Multi-Drug Resistant Organisms: MRSA Date of last positivie culture/infection: 09/03/23 MDRO Source:: Groin Past Surgical History: Bowel Resection Additional Past Surgical History / Comment(s): IVC FILTER 2013. ileostomy. wound vac. ileostomy reversal with hernia repair, with ovary removal. Past Anesthesia/Blood Transfusion Reactions: No Reported Reaction Past Psychological History: Depression, PTSD Smoking Status: Current every day smoker Past Alcohol Use History: None Reported Past Drug Use History: None Reported <Divya Hammonds - Last Filed: 06/15/24 16:42> General Exam Limitations: no limitations Eye exam: Present: normal appearance, PERRL, EOMI. Absent: scleral icterus, conjunctival injection, periorbital swelling ENT exam: Present: normal exam, mucous membranes moist Neck exam: Present: normal inspection. Absent: tenderness, meningismus, lymphadenopathy Respiratory exam: Present: normal lung sounds bilaterally. Absent: respiratory distress, wheezes, rales, rhonchi, stridor Cardiovascular Exam: Present: regular rate, normal rhythm, normal heart sounds. Absent: systolic murmur, diastolic murmur, rubs, gallop, clicks GI/Abdominal exam: Present: soft, tenderness (diffuse), normal bowel sounds, other (post-surgical midline incison with mild erythema over the mid abdomen, no purulence, mild warmth to touch). Absent: distended, guarding, rebound, rigid Extremities exam: Present: normal inspection, full ROM, normal capillary refill. Absent: tenderness, pedal edema, joint swelling, calf tenderness Back exam: Present: normal inspection Skin exam: Present: warm, dry, intact, normal color. Absent: rash <Divya Hammonds - Last Filed: 06/15/24 16:42> Course Vital Signs 06/15/24 13:42 Temperature 98.3 F Pulse Rate 106 H Respiratory 18 Rate Blood Pressure 136/89 O2 Sat by Pulse 97 Oximetry Medical Decision Making - Lab Data Result diagrams: 06/15/24 15:05 06/15/24 15:05 <Divya Hammonds - Last Filed: 06/15/24 16:42> - Lab Data Result diagrams: 06/15/24 15:05 06/15/24 15:05 <Raffi De - Last Filed: 06/15/24 18:44> - Medical Decision Making Was pt. sent in by a medical professional or institution (EVELINA Rosenthal, ENVELOPE SEALER OPERATOR, urgent care, hospital, or [facility]...) When possible be specific @ -[No] Did you speak to anyone other than the patient for history (EMS, parent, family, police, friend...)? What history was obtained from this source @ -[No] Did you review nursing and triage notes (agree or disagree)? Why? @ -[I reviewed and agree with nursing and triage notes] Were old charts reviewed (outside hosp., previous admission, EMS record, old EKG, old radiological studies, urgent care reports/EKG's, [facility] records)? Report findings @ -I reviewed the patient's discharge summary from 06/03/2024 where she was discharged with a history of diverticulitis hypokalemia and atelectasis. She un derwent exploratory laparotomy lysis of extensive adhesions and reversal of last to meet with repair of incisional hernia. Differential Diagnosis (chest pain, altered mental status, abdominal pain women, abdominal pain men, vaginal bleeding, weakness, fever, dyspnea, syncope, headache, dizziness, GI bleed, back pain, seizure, CVA, palpatations, mental health, musculoskeletal)? @ -Differential Abdominal Pain Women: Appendicitis, Cholecystitis, diverticulosis, ischemic bowel, pancreatitis, hepatitis, UTI, gastroenteritis, AAA, incarcerated hernia, bowel obstruction, constipation, inflammatory bowel, hepatitis, peptic ulcer disease, splenic infarction, perforated viscus, vulvitis, ovarian torsion, PID, kidney stone, placenta abruption, this is not meant to be an all-inclusive list EKG interpreted by me (3pts min.). @ -none X-rays interpreted by me (1pt min.). @ -[None done] CT interpreted by me (1pt min.). @ -[None done] U/S interpreted by me (1pt. min.). @ -[None done] What testing was considered but not performed or refused? (CT, X-rays, U/S, labs)? Why? @ -[None] What meds were considered but not given or refused? Why? @ -[None] Did you discuss the management of the patient with other professionals (professionals i.e. , PA, ENVELOPE SEALER OPERATOR, lab, RT, psych nurse, geriatric social worker, livestock judging coach, teacher, banking officer, renal case manager)? Give summary @ -[No] Was smoking cessation discussed for >3mins.? @ -[No] Was critical care preformed (if so, how long)? @ -[No] Were there social determinants of health that impacted care today? How? (Homelessness, low income, unemployed, alcoholism, drug addiction, transportation, low edu. Level, literacy, decrease access to med. care, senior care, rehab)? @ -[No] Was there de-escalation of care discussed even if they declined (Discuss DNR or withdrawal of care, Hospice)? DNR status @ -[No] What co-morbidities impacted this encounter? (DM, HTN, Smoking, COPD, CAD, Cancer, CVA, ARF, Chemo, Hep., AIDS, mental health diagnosis, sleep apnea, morbid obesity)? @ -[None] Was patient admitted / discharged? Hospital course, mention meds given and route, prescriptions, significant lab abnormalities, going to OR and other pertinent info. @ -This is a 54-year-old female with abdominal pain s/p surgery. My evaluation the patient she is resting company no signs acute distress. Her vitals are stable. She is noted to have diffuse abdominal pain to palpation of the abdomen. Bowel sounds are equal through all quadrants. She is noted to have a large postsurgical incision that is healing appropriately with tenderness to palpation over the incision with mild erythema with no signs of dehiscence or active drainage. Patient is provided with pain medication pending laboratory results and CT imaging. She did agree with this plan. CBC unremarkable, CMP reveals hyperglycemia of 270, elevated CRP of 5.8, elevated lactic acid at 1.9. patient is signed out to my colleague, Raffi De PA-C pending Ct results and disposition. Undiagnosed new problem with uncertain prognosis? @ -[No] Drug Therapy requiring intensive monitoring for toxicity (Heparin, Nitro, Insulin, Cardizem)? @ -[No] Were any procedures done? @ -[No] Diagnosis/symptom? @ -[default] Acute, or Chronic, or Acute on Chronic? @ -[default] Uncomplicated (without systemic symptoms) or Complicated (systemic symptoms)? @ -[default] Side effects of treatment? @ -[No] Exacerbation, Progression, or Severe Exacerbation? @ -[No] Poses a threat to life or bodily function? How? (Chest pain, [place], [place], pneumonia, PE, COPD, DKA, ARF, appy, cholecystitis, CVA, Diverticulitis, Homicidal, Suicidal, threat to staff... and all critical care pts) @ -[No] (Divya Hammonds) Patient was signed out to me by Divya Hammonds PA-C pending CT results. CT shows abdominal wall abscess, abscess does not extend into the abdominal cavity. Contacted the patient's surgeon Dr. Rubi who advises admission and he will evaluate in the morning. Patient is educated on today's findings and treatment plan, she is in agreement. I discussed this case with my attending Dr. Rubio Diagnosis/symptom? @Abdominal wall abscess Acute, or Chronic, or Acute on Chronic? @Acute Uncomplicated (without systemic symptoms) or Complicated (systemic symptoms)? @Complicated Side effects of treatment? @None Exacerbation, Progression, or Severe Exacerbation] @No Poses a threat to life or bodily function? @Yes (Raffi De) - Lab Data Lab Results 06/15/24 06/15/24 06/15/24 Range/Units 15:05 15:05 15:05 WBC 9.0 (3.8-10.6) k/uL RBC 4.14 (3.80-5.40) m/uL Hgb 13.0 (11.4-16.0) gm/dL Hct 37.9 (34.0-46.0) % MCV 91.6 (80.0-100.0) fL MCH 31.4 (25.0-35.0) pg MCHC 34.3 (31.0-37.0) g/dL RDW 13.7 (11.5-15.5) % Plt Count 315 (150-450) k/uL MPV 8.5 Neutrophils % 73 % Lymphocytes % 18 % Monocytes % 5 % Eosinophils % 2 % Basophils % 0 % Neutrophils # 6.6 (1.3-7.7) k/uL Lymphocytes # 1.6 (1.0-4.8) k/uL Monocytes # 0.4 (0-1.0) k/uL Eosinophils # 0.2 (0-0.7) k/uL Basophils # 0.0 (0-0.2) k/uL Sodium 136 L (137-145) mmol/L Potassium 4.2 (3.5-5.1) mmol/L Chloride 107 (98-107) mmol/L Carbon Dioxide 24 (22-30) mmol/L Anion Gap 5 mmol/L BUN 16 (7-17) mg/dL Creatinine 0.41 L (0.52-1.04) mg/dL Est GFR (CKD-EPI)AfAm >90 (>60 ml/min/1.73 sqM) Est GFR (CKD-EPI)NonAf >90 (>60 ml/min/1.73 sqM) Glucose 270 H (74-99) mg/dL Plasma Lactic Acid Kyrie 1.9 (0.7-2.0) mmol/L Calcium 8.8 (8.4-10.2) mg/dL Total Bilirubin 0.8 (0.2-1.3) mg/dL AST 23 (14-36) U/L ALT 21 (4-34) U/L Alkaline Phosphatase 141 H (38-126) U/L C-Reactive Protein 5.8 H (<1.0) mg/dL Total Protein 6.7 (6.3-8.2) g/dL Albumin 3.8 (3.5-5.0) g/dL Lipase 180 (23-300) U/L Urine Color Urine Appearance (Clear) Urine pH (5.0-8.0) Ur Specific [place] (1.001-1.035) Urine Protein (Negative) Urine Glucose (UA) (Negative) Urine Ketones (Negative) Urine Blood (Negative) Urine Nitrite (Negative) Urine Bilirubin (Negative) Urine Urobilinogen (<2.0) mg/dL Ur Leukocyte Esterase (Negative) 06/15/24 Range/Units 16:10 WBC (3.8-10.6) k/uL RBC (3.80-5.40) m/uL Hgb (11.4-16.0) gm/dL Hct (34.0-46.0) % MCV (80.0-100.0) fL MCH (25.0-35.0) pg MCHC (31.0-37.0) g/dL RDW (11.5-15.5) % Plt Count (150-450) k/uL MPV Neutrophils % % Lymphocytes % % Monocytes % % Eosinophils % % Basophils % % Neutrophils # (1.3-7.7) k/uL Lymphocytes # (1.0-4.8) k/uL Monocytes # (0-1.0) k/uL Eosinophils # (0-0.7) k/uL Basophils # (0-0.2) k/uL Sodium (137-145) mmol/L Potassium (3.5-5.1) mmol/L Chloride (98-107) mmol/L Carbon Dioxide (22-30) mmol/L Anion Gap mmol/L BUN (7-17) mg/dL Creatinine (0.52-1.04) mg/dL Est GFR (CKD-EPI)AfAm (>60 ml/min/1.73 sqM) Est GFR (CKD-EPI)NonAf (>60 ml/min/1.73 sqM) Glucose (74-99) mg/dL Plasma Lactic Acid Kyrie (0.7-2.0) mmol/L Calcium (8.4-10.2) mg/dL Total Bilirubin (0.2-1.3) mg/dL AST (14-36) U/L ALT (4-34) U/L Alkaline Phosphatase (38-126) U/L C-Reactive Protein (<1.0) mg/dL Total Protein (6.3-8.2) g/dL Albumin (3.5-5.0) g/dL Lipase (23-300) U/L Urine Color Yellow Urine Appearance Clear (Clear) Urine pH 5.5 (5.0-8.0) Ur Specific [place] 1.031 (1.001-1.035) Urine Protein Trace H (Negative) Urine Glucose (UA) 4+ H (Negative) Urine Ketones Negative (Negative) Urine Blood Negative (Negative) Urine Nitrite Negative (Negative) Urine Bilirubin Negative (Negative) Urine Urobilinogen 3.0 (<2.0) mg/dL Ur Leukocyte Esterase Negative (Negative) Disposition <Divya Hammonds - Last Filed: 06/15/24 16:42> Time of Disposition: 18:04 <Raffi De - Last Filed: 06/15/24 18:44> Clinical Impression: Abdominal wall abscess Disposition: ADMITTED IP TO THIS HOSP Condition: Serious Referrals: None,Stated [Primary Care Provider] - 1-2 days
[2024-06-15] MEDS: HYDROmorphone 1 MG/ML 1 ML SYRINGE IVP STA ×2 (15:11→17:02)
[2024-06-15 15:16] LABS: Basophils % (A) 0 %; Eosinophils # (A) 0.2 k/uL (0-0.7); Eosinophils % (A) 2 %; HCT 37.9 % (34.0-46.0); Lymphocytes # (A) 1.6 k/uL (1.0-4.8); Lymphocytes % (A) 18 %; MCH 31.4 pg (25.0-35.0); MCHC 34.3 g/dL (31.0-37.0); MCV 91.6 fL (80.0-100.0); Mean Platelet Volume 8.5; Monocytes # (A) 0.4 k/uL (0-1.0); Monocytes % (A) 5 %; Neutrophils # (A) 6.6 k/uL (1.3-7.7); Neutrophils % (A) 73 %; Platelet Count 315 k/uL (150-450); RBC 4.14 m/uL (3.80-5.40); RDW 13.7 % (11.5-15.5)
[2024-06-15 15:30] LABS: ALT 21 U/L (4-34); AST 23 U/L (14-36); African American GFR (CKD) >90 (>60 ml/min/1.73 sqM); Albumin 3.8 g/dL (3.5-5.0); Alkaline Phosphatase 141 U/L (38-126); Anion Gap 5 mmol/L; Blood Urea Nitrogen 16 mg/dL (7-17); C Reactive Protein 5.8 mg/dL (<1.0); Calcium 8.8 mg/dL (8.4-10.2); Carbon Dioxide 24 mmol/L (22-30); Chloride 107 mmol/L (98-107); Glucose 270 mg/dL (74-99); Lipase 180 U/L (23-300); Non-African American GFR(CKD) >90 (>60 ml/min/1.73 sqM); Potassium 4.2 mmol/L (3.5-5.1); Sodium 136 mmol/L (137-145); Total Bilirubin 0.8 mg/dL (0.2-1.3); Total Protein 6.7 g/dL (6.3-8.2)
[2024-06-15 16:42] LABS: Appearance,Urine Clear (Clear); Bilirubin,Urine Negative (Negative); Blood,Urine Negative (Negative); Color,Urine Yellow; Glucose,Urine (UA) 4+ (Negative); Ketones,Urine Negative (Negative); Leukocyte Esterase,Urine Negative (Negative); Nitrite,Urine Negative (Negative); PH, Urine 5.5 (5.0-8.0); Protein,Urine Trace (Negative); Specific Gravity,Urine 1.031 (1.001-1.035)
--- NOTE | 2024-06-15 17:19 | CT ---
EXAMINATION TYPE: CT abdomen pelvis w con CT DLP: 917.2 mGycm, Automated exposure control for dose reduction was used. DATE OF EXAM: 06/15/2024 4:46 PM COMPARISON: CT abdomen pelvis most recent from 05/02/2024 CLINICAL INDICATION: Female, 54 years old with history of ab pain/erythema, s/p surgery; Pt had major abdominal sx with colostomy reversal on 05/26. C/o abdominal pain, redness, firmness, and warmth. A dditionally, states since then she has had diarrhea. Believes she now has abdominal infection. TECHNIQUE: Axial CT abdomen pelvis w con;Sagittal and coronal reformats were created on a separate w orkstation. Contrast used:100 ml mL of Isovue 300 with IV Contrast, (none if empty) Oral contrast used: without Oral Contrast (none if empty) FINDINGS: LOWER CHEST: Unremarkable ABDOMEN LIVER: Unremarkable GALLBLADDER AND BILE DUCTS: Unremarkable. PANCREAS: Unremarkable. SPLEEN: Unremarkable. ADRENAL GLANDS: Unremarkable. KIDNEYS AND URETERS: No evidence of hydronephrosis or renal calculus. The ureters are unremarkable. Right renal cortical cyst. PELVIS BLADDER: Unremarkable REPRODUCTIVE: Unremarkable. ABDOMEN & PELVIS STOMACH AND BOWEL: No evidence of bowel obstruction. Postsurgical changes to the bowel in the pelvis. PERITONEUM/RETROPERITONEUM: No evidence of pneumoperitoneum or free fluid. VASCULATURE: No evidence of aortic aneurysm. IVC filter in place. Inferior to the level of the IVC fi lter the IVC has a flattened appearance with suspected shunting of blood products on the right throug h the right inferior epigastric and along the vessels of the retroperitoneum on the left. MUSCULOSKELETAL: No acute osseous abnormalities LYMPH NODES: No gross evidence for lymphadenopathy. SOFT TISSUE/ABDOMINAL WALL: Anterior abdominal wall fluid collection compatible with abscess measurin g up to 6.4 x 2.5 x 8.2 cm. There is fat stranding gas tracking along the anterior abdominal wall wit h fluid collection gas extending along the anterior abdominal wall particularly projections extending away and into the lower anterior midline abdominal wall fluid collection. Tortuous vascular structur es course is subcutaneous soft tissues most pronounced on the right side with shunting from the right inferior epigastric again towards the chest. The fluid collection does not extend into the abdominal cavity. A majority of the ventral hernias on prior exam have been repaired short-term follow-up afte r resolution of infection/inflammatory process should be performed for further evaluation. IMPRESSION: 1. Postsurgical changes to the anterior abdominal wall with abscess with air and fluid formation wit h pocket of fluid in the subcutaneous tissues measuring 6.4 x 3.5 x 8.2 cm abscess does not extend in to the abdominal cavity. Tortuous venous return courses along the medial aspect of the fluid collecti on and postsurgical change of the midline abdomen. 2. IVC filter with flattened appearance of the IVC below the level of the filter likely secondary to chronic obstruction with shunting to the right inferior epigastric and left retroperitoneal vessels. [facility], Workstation: [id number], 06/15/2024 5:16 PM
[2024-06-15] MEDS ORDERED: VANCOMYCIN IV PER PHARMACY 1 EACH MISC MISCELLANE PRN (17:47)
[2024-06-15] MEDS ORDERED: NALOXONE 0.4 MG/ML 1 ML VIAL IV PRN (18:06)
[2024-06-15] MEDS ORDERED: KETOROLAC 15 MG/ML 1 ML VIAL IVP PRN (18:06)
[2024-06-15] MEDS: SODIUM CHLORIDE 0.9% 1,000 ML IV SCH (18:44)
[2024-06-15] MEDS: VANCOMYCIN 1,250 MG in SODIUM CHLORIDE 0.9% 250 ML IVPB STA (18:44)
[2024-06-15] MEDS: HYDROmorphone 1 MG/ML 1 ML SYRINGE IVP PRN (18:51)
[2024-06-15] MEDS ORDERED: ONDANSETRON 4 MG/2 ML VIAL IVP PRN (19:32)
[2024-06-15 23:21] LABS: Erythrocyte Sedimentation Rate 64 mm/Hr (0-30)
[2024-06-16 08:40] LABS: Basophils # (A) 0.05 X 10*3/uL (0.00-0.10); Basophils % (A) 0.7 %; Eosinophils # (A) 0.17 X 10*3/uL (0.04-0.35); Eosinophils % (A) 2.3 %; HCT 37.7 % (37.2-46.3); HGB 12.2 g/dL (12.0-15.0); Lymphocytes # (A) 1.32 X 10*3/uL (0.90-5.00); Lymphocytes % (A) 17.9 %; MCH 29.9 pg (27.0-32.0); MCHC 32.4 g/dL (32.0-37.0); MCV 92.4 FL (80.0-97.0); Mean Platelet Volume 10.5 FL (9.5-12.2); Monocytes # (A) 0.46 X 10*3/uL (0.20-1.00); Monocytes % (A) 6.2 %; NRBC Per 100 WBC 0 X 10*3/uL (0.00-0.01); Neutrophils # (A) 5.35 X 10*3/uL (1.80-7.70); Neutrophils % (A) 72.5 %; Platelet Count 281 X 10*3/uL (140-440); RBC 4.08 X 10*6/uL (4.10-5.20); RDW 13.1 % (11.5-14.5); WBC 7.38 X 10*3/uL (4.50-10.00)
[2024-06-16 09:35] LABS: ALT 16 U/L (8-44); AST 18 U/L (13-35); Albumin 3.5 g/dL (3.8-4.9); Alkaline Phosphatase 140 U/L (41-126); Blood Urea Nitrogen 14.6 mg/dL (9.0-27.0); Calcium 8.7 mg/dL (8.7-10.3); Carbon Dioxide 19.7 mmol/L (21.6-31.8); Chloride 103 mmol/L (96-109); Globulin 2.7 g/dL (1.6-3.3); Glucose 169 mg/dL (70-110); Potassium 4.1 mmol/L (3.5-5.5); Sodium 137 mmol/L (135-145); Total Bilirubin 0.7 mg/dL (0.3-1.2); Total Protein 6.2 g/dL (6.2-8.2)
[2024-06-16] MEDS: VANCOMYCIN 1,250 MG in SODIUM CHLORIDE 0.9% 250 ML IVPB SCH (09:46)
[2024-06-16] MEDS: DAPAGLIFLOZIN PROPANEDIOL 5 MG TABLET PO SCH (10:50)
--- NOTE | 2024-06-16 10:58 | P.CONS ---
History of Present Illness - Reason for Consult Medical Management - History of Present Illness HPI: 54-year-old female with a past medical history of COPD, CVA, type 2 diabetes, DVT, GERD, dyslipidemia, hypertension, and recent bowel resection with ileostomy end ileostomy reversal with hernia repair presents with a postsurgical complication of warmth and tenderness near the incision. Patient reports she has had multiple hernia repairs completed with Dr. Lewis and had a recent follow-up last Sunday where her chantell were removed. Patient reports for the last few days she has had worsening abdominal pain, noticed erythema over her incision, had warmth to touch over the incision abdomen, and diarrhea. Patient reports she is concerned that she may be developing an infection. Patient reports she has not had any fevers but has felt chills. Patient also endorses nausea with no episodes of vomiting. Patient denies dysuria. Pertinent positives and negatives discussed above, a complete review of systems was preformed and all the other sytems were negative. Vitals Signs Reveiwed. General: non toxic, no distress, appears at stated age, normal weight Derm: no unusual rashes/lesions, warm Head: atraumatic, normocephalic, symmetric Eyes: EOMI, no lid lag, anicteric sclera, pupils equal round reactive to light ENT: Nose and ears atraumatic Neck: No cervical lymphadenopathy, trachea midline, supple Mouth: no lip lesion, mucus membranes moist Cardiovascular: S1S2 reg, no murmur, positive dorsalis pedis pulse bilateral, no edema Lungs: Decreased air entry bilaterally, no rhonchi, no rales, no accessory muscle use Abdominal: Warm to touch, erythema noted along the incision which stretches from the mid to left abdomen and runs inferiorly, postsurgical scars palpated superficially, no distention, no guarding Ext: muscle strength 5 out of 5 in all 4 extremities grossly, no gross muscle atrophy, no contractures, Neuro: CN II-XI grossly intact, no gross focal neuro deficits Psych: Alert, oriented, appropriate affect Data Reveiwed Today: Patient Labs: WBC 7.38, hemoglobin 12.2, MCV 92.4, sodium 137, potassium 4.1, bicarb 19.7, anion gap 14.3, creatinine 0.5, glucose 169, alkaline phosphatase 140, and urinalysis significant for 4+ glucose. Imaging: CT abdomen showed postsurgical changes to the anterior abdomen wall with abscess with air and fluid formation with pocket of fluid in the subcutaneous tissues measuring 6.4 x 3.5 x 8.2 cm abscess does not extend into the abdominal cavity. Torturous venous return courses along the medial aspect of the the fluid collection and postsurgical change of the midline abdomen. IVC filter with flattened appearance of the IVC below the level of the filter likely secondary to chronic obstruction and shunting to the right inferior epigastric and left retroperitoneal vessels. Assesment: COPD Anion gap metabolic acidosis History of CVA/TIA Diabetes mellitus History of DVT GERD Hyperlipidemia Hypertension IVC filter History of ileostomy, ileostomy reversal with hernia repair, with ovary removal. Plan: Surgery do not plan for procedure, are okay taking patient off n.p.o. and advancing diet to regular Replete bicarb Continue IV fluids Continue vancomycin 250 mL IVPB every 12 hours Continued home medications, holding home Eliquis for surgery today F NS 75 cc/h E sodium bicarbonate N regular diet A normally ambulates unassisted at home DVT ppx: Holding anticoagulation for surgery today GI ppx: Tonics 40 mg p.o. daily Code Status: Full code Anticipated discharge place: To home Anticipated discharge time: Pending clinical course Past Medical History Past Medical History: COPD, CVA/TIA, Diabetes Mellitus, Deep Vein Thrombosis (DVT), GERD/Reflux, Hyperlipidemia, Hypertension Additional Past Medical History / Comment(s): CVA 2019- expressive aphasia; 2 DVT's; diverticulitis; hernia History of Any Multi-Drug Resistant Organisms: MRSA Year Discovered:: 09/03/23 MDRO Source:: Groin Past Surgical History: Bowel Resection Additional Past Surgical History / Comment(s): IVC FILTER 2013. ileostomy. wound vac. ileostomy reversal with hernia repair, with ovary removal-Apr 2024. Past Anesthesia/Blood Transfusion Reactions: No Reported Reaction Past Psychological History: Depression, PTSD Smoking Status: Current every day smoker Past Alcohol Use History: None Reported Additional Past Alcohol Use History / Comment(s): smokes 1/2 ppd since age 18 Past Drug Use History: None Reported Additional Drug Use History / Comment(s): used marijuana on her birthday Medications and Allergies Home Medications Medication Instructions Recorded Confirmed Type Insulin Glargine,Hum.rec.anlog 42 unit SQ DAILY 08/04/21 06/15/24 History [Lantus Solostar Pen] hydroCHLOROthiazide [Hydrodiuril] 12.5 mg PO DAILY 08/04/21 06/15/24 History busPIRone HCL 15 mg PO TID 03/14/23 06/15/24 History traZODone HCL 150 mg PO HS 03/14/23 06/15/24 History Gabapentin 800 mg PO TID 3 Days #9 tab 07/12/23 06/15/24 Rx Atorvastatin [Lipitor] 80 mg PO DAILY 08/07/23 06/15/24 History Apixaban [Eliquis] 5 mg PO BID 05/03/24 06/15/24 History Dapagliflozin Propanediol [Farxiga] 5 mg PO DAILY 05/03/24 06/15/24 History Ezetimibe [Zetia] 10 mg PO DAILY 05/03/24 06/15/24 History Famotidine 40 mg PO DAILY 05/03/24 06/15/24 History Venlafaxine HCl [Effexor XR] 150 mg PO DAILY 05/03/24 06/15/24 History cloNIDine HCL 0.05 mg PO BID 05/03/24 06/15/24 History lisinopriL 30 mg PO DAILY 05/03/24 06/15/24 History HYDROcodone/APAP 10-325MG [[place] 1 tab PO Q8HR PRN 3 Days #9 tab 06/03/24 06/15/24 Rx 10-325] Ipratropium-Albuterol Nebulize 3 ml INHALATION RT-QID 06/15/24 06/15/24 History [Duoneb 0.5 mg-3 mg/3 ml Soln] Allergies Allergy/AdvReac Type Severity Reaction Status Date / Time No Known Allergies Allergy Verified 06/15/24 15:23 Physical Exam Vitals: Vital Signs Temp Pulse Pulse Resp BP BP Pulse Ox 06/16/24 09:03 97.4 F L 76 18 119/83 94 L 06/16/24 07:40 98.7 F 82 16 124/74 93 L 06/16/24 06:32 85 20 121/86 93 L 06/16/24 04:26 81 20 124/86 95 06/15/24 23:00 94 16 107/68 93 L 06/15/24 22:28 91 18 121/84 93 L 06/15/24 21:00 90 18 122/92 95 06/15/24 19:40 95 18 143/95 93 L 06/15/24 13:42 98.3 F 106 H 18 136/89 97 Intake and Output 06/15/24 06/16/24 06/16/24 22:59 06:59 14:59 Other: Weight 71.577 kg Results CBC & Chem 7: 06/16/24 06:30 06/16/24 06:30 Labs: Abnormal Lab Results - Last 24 Hours (Table) 06/15/24 06/15/24 06/15/24 Range/Units 15:05 15:05 16:10 RBC (4.10-5.20) X 10*6/uL ESR 64 H (0-30) mm/Hr Sodium 136 L (137-145) mmol/L Carbon Dioxide (21.6-31.8) mmol/L Anion Gap (4.00-12.00) mmol/L Creatinine 0.41 L (0.52-1.04) mg/dL BUN/Creatinine Ratio (12.00-20.00) Ratio Glucose 270 H (74-99) mg/dL Alkaline Phosphatase 141 H (38-126) U/L C-Reactive Protein 5.8 H (<1.0) mg/dL Albumin (3.8-4.9) g/dL Albumin/Globulin Ratio (1.60-3.17) Ratio Urine Protein Trace H (Negative) Urine Glucose (UA) 4+ H (Negative) 06/16/24 06/16/24 Range/Units 06:30 06:30 RBC 4.08 L (4.10-5.20) X 10*6/uL ESR (0-30) mm/Hr Sodium (137-145) mmol/L Carbon Dioxide 19.7 L (21.6-31.8) mmol/L Anion Gap 14.30 H (4.00-12.00) mmol/L Creatinine 0.5 L (0.52-1.04) mg/dL BUN/Creatinine Ratio 29.20 H (12.00-20.00) Ratio Glucose 169 H (74-99) mg/dL Alkaline Phosphatase 140 H (38-126) U/L C-Reactive Protein (<1.0) mg/dL Albumin 3.5 L (3.8-4.9) g/dL Albumin/Globulin Ratio 1.30 L (1.60-3.17) Ratio Urine Protein (Negative) Urine Glucose (UA) (Negative)
[2024-06-16] MEDS: IPRATROPIUM-ALBUTEROL 3 ML NEB INHALATION SCH (11:15)
[2024-06-16] MEDS: INSULIN DETEMIR (LEVEMIR) 100 UNIT/ML SYR SQ SCH (11:27)
[2024-06-16] MEDS: VENLAFAXINE HCL ER 150 MG CAP PO SCH (11:28)
[2024-06-16 12:41] LABS: Glucose,Whole Blood 128 mg/dL (70-110)
--- NOTE | 2024-06-16 13:20 | P.GSHP ---
History of Present Illness H&P Date: 06/16/24 CHIEF COMPLAINT: Abdominal pain HISTORY OF PRESENT ILLNESS: This is a 54-year-old female who has history of diverticulitis and is status post exploratory laparotomy with lysis of adhesions, reversal of colostomy, repair of incisional hernia greater than 10 cm, repair of parastomal hernia and a right oophorectomy on 05/26/2024 patient reports that she has had increased abdominal pain at incision site. She reports that it had become red and warm. No drainage. She reports having loose stools. CT scan abdomen and pelvis completed reported postsurgical changes to the anterior abdominal wall with abscess with air and fluid formation with a pocket of fluid in the subcutaneous tissue measuring 6.4 x 3.5 x 8.2 cm. Abscess does not extend into the abdominal cavity. Patient has no fevers. White count normal at 9. 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 REVIEW OF SYSTEMS: CONSTITUTIONAL: Denies fever or chills. HEENT: Denies blurred vision, vision changes, or eye pain. Denies hemoptysis CARDIOVASCULAR: Denies chest pain or pressure. RESPIRATORY: No shortness of breath. GASTROINTESTINAL: See HPI for pertinent findings HEMATOLOGIC: Denies bleeding disorders. GENITOURINARY: Denies any blood in urine or increased urinary frequency. SKIN: Denies pruitis. Denies rash. PHYSICAL EXAM: VITAL SIGNS: Reviewed GENERAL: Well-developed in no acute distress. HEENT: No sclera icterus. Extraocular movements grossly intact. Moist buccal mucosa. Head is atraumatic, normocephalic. No nasal drainage. ABDOMEN: Soft. Nondistended. Midline incision with no drainage. Mid i ncision there is firmness with palpation on both sides of the incision that is mildly warm and small area of erythema. Minimal tenderness NEUROLOGIC: Alert and oriented. Cranial nerves II through XII grossly intact. Expressive aphasia LABORATORY DATA: WBC 7.38 Hgb 12.2 platelets 281 Sodium 137 potassium is 4.1 creatinine 0.5 IMAGING: CT scan abdomen pelvis reports postsurgical changes to the anterior abdominal wall with abscess with air and fluid formation with pocket of fluid in the subcu taneous tissue measuring 6.4 x 3.5 x 8.2 cm abscess does not extend into the abdominal cavity. ASSESSMENT: 1. Postoperative seroma at incision site 2. Recent colostomy reversal and incisional and parastomal hernia repair 3. History of diabetes PLAN: -Continue antibiotics -Advance diet to regular -Continue supportive care -No surgical intervention planned at this time Physician Mortgage Loan Reviewer note has been reviewed by physician. Signing provider agrees with the documented findings, assessment, and plan of care. Past Medical History Past Medical History: COPD, CVA/TIA, Diabetes Mellitus, Deep Vein Thrombosis (DVT), GERD/Reflux, Hyperlipidemia, Hypertension Additional Past Medical History / Comment(s): CVA 2019- expressive aphasia; 2 DVT's; diverticulitis; hernia History of Any Multi-Drug Resistant Organisms: MRSA Date of last positivie culture/infection: 09/03/23 MDRO Source:: Groin Past Surgical History: Bowel Resection Additional Past Surgical History / Comment(s): IVC FILTER 2013. ileostomy. wound vac. ileostomy reversal with hernia repair, with ovary removal-Apr 2024. Past Anesthesia/Blood Transfusion Reactions: No Reported Reaction Past Psychological History: Depression, PTSD Smoking Status: Current every day smoker Past Alcohol Use History: None Reported Additional Past Alcohol Use History / Comment(s): smokes 1/2 ppd since age 18 Past Drug Use History: None Reported Additional Drug Use History / Comment(s): used marijuana on her birthday Medications and Allergies Home Medications Medication Instructions Recorded Confirmed Type Insulin Glargine,Hum.rec.anlog 42 unit SQ DAILY 08/04/21 06/15/24 History [Lantus Solostar Pen] hydroCHLOROthiazide [Hydrodiuril] 12.5 mg PO DAILY 08/04/21 06/15/24 History busPIRone HCL 15 mg PO TID 03/14/23 06/15/24 History traZODone HCL 150 mg PO HS 03/14/23 06/15/24 History Gabapentin 800 mg PO TID 3 Days #9 tab 07/12/23 06/15/24 Rx Atorvastatin [Lipitor] 80 mg PO DAILY 08/07/23 06/15/24 History Apixaban [Eliquis] 5 mg PO BID 05/03/24 06/15/24 History Dapagliflozin Propanediol [Farxiga] 5 mg PO DAILY 05/03/24 06/15/24 History Ezetimibe [Zetia] 10 mg PO DAILY 05/03/24 06/15/24 History Famotidine 40 mg PO DAILY 05/03/24 06/15/24 History Venlafaxine HCl [Effexor XR] 150 mg PO DAILY 05/03/24 06/15/24 History cloNIDine HCL 0.05 mg PO BID 05/03/24 06/15/24 History lisinopriL 30 mg PO DAILY 05/03/24 06/15/24 History HYDROcodone/APAP 10-325MG [[place] 1 tab PO Q8HR PRN 3 Days #9 tab 06/03/24 06/15/24 Rx 10-325] Ipratropium-Albuterol Nebulize 3 ml INHALATION RT-QID 06/15/24 06/15/24 History [Duoneb 0.5 mg-3 mg/3 ml Soln] Allergies Allergy/AdvReac Type Severity Reaction Status Date / Time No Known Allergies Allergy Verified 06/15/24 15:23 Surgical - Exam Vital Signs Temp Pulse Resp BP Pulse Ox 98.3 F 106 H 18 136/89 97 06/15/24 13:42 06/15/24 13:42 06/15/24 13:42 06/15/24 13:42 06/15/24 13:42 Results - Labs 06/16/24 06:30 06/16/24 06:30 Abnormal Lab Results - Last 24 Hours (Table) 06/15/24 06/15/24 06/15/24 Range/Units 15:05 15:05 16:10 RBC (4.10-5.20) X 10*6/uL ESR 64 H (0-30) mm/Hr Sodium 136 L (137-145) mmol/L Carbon Dioxide (21.6-31.8) mmol/L Anion Gap (4.00-12.00) mmol/L Creatinine 0.41 L (0.52-1.04) mg/dL BUN/Creatinine Ratio (12.00-20.00) Ratio Glucose 270 H (74-99) mg/dL POC Glucose (mg/dL) (70-110) mg/dL Alkaline Phosphatase 141 H (38-126) U/L C-Reactive Protein 5.8 H (<1.0) mg/dL Albumin (3.8-4.9) g/dL Albumin/Globulin Ratio (1.60-3.17) Ratio Urine Protein Trace H (Negative) Urine Glucose (UA) 4+ H (Negative) 06/16/24 06/16/24 06/16/24 Range/Units 06:30 06:30 12:35 RBC 4.08 L (4.10-5.20) X 10*6/uL ESR (0-30) mm/Hr Sodium (137-145) mmol/L Carbon Dioxide 19.7 L (21.6-31.8) mmol/L Anion Gap 14.30 H (4.00-12.00) mmol/L Creatinine 0.5 L (0.52-1.04) mg/dL BUN/Creatinine Ratio 29.20 H (12.00-20.00) Ratio Glucose 169 H (74-99) mg/dL POC Glucose (mg/dL) 128 H (70-110) mg/dL Alkaline Phosphatase 140 H (38-126) U/L C-Reactive Protein (<1.0) mg/dL Albumin 3.5 L (3.8-4.9) g/dL Albumin/Globulin Ratio 1.30 L (1.60-3.17) Ratio Urine Protein (Negative) Urine Glucose (UA) (Negative) Diabetes panel 06/15/24 06/16/24 Range/Units 15:05 06:30 Sodium 136 L 137 (137-145) mmol/L Potassium 4.2 4.1 (3.5-5.1) mmol/L Chloride 107 103 (98-107) mmol/L Carbon Dioxide 24 19.7 L (22-30) mmol/L BUN 16 14.6 (7-17) mg/dL Creatinine 0.41 L 0.5 L (0.52-1.04) mg/dL Glucose 270 H 169 H (74-99) mg/dL Calcium 8.8 8.7 (8.4-10.2) mg/dL AST 23 18 (14-36) U/L ALT 21 16 (4-34) U/L Alkaline Phosphatase 141 H 140 H (38-126) U/L Total Protein 6.7 6.2 (6.3-8.2) g/dL Albumin 3.8 3.5 L (3.5-5.0) g/dL Calcium panel 06/15/24 06/16/24 Range/Units 15:05 06:30 Calcium 8.8 8.7 (8.4-10.2) mg/dL Albumin 3.8 3.5 L (3.5-5.0) g/dL Pituitary panel 06/15/24 06/16/24 Range/Units 15:05 06:30 Sodium 136 L 137 (137-145) mmol/L Potassium 4.2 4.1 (3.5-5.1) mmol/L Chloride 107 103 (98-107) mmol/L Carbon Dioxide 24 19.7 L (22-30) mmol/L BUN 16 14.6 (7-17) mg/dL Creatinine 0.41 L 0.5 L (0.52-1.04) mg/dL Glucose 270 H 169 H (74-99) mg/dL Calcium 8.8 8.7 (8.4-10.2) mg/dL Adrenal panel 06/15/24 06/16/24 Range/Units 15:05 06:30 Sodium 136 L 137 (137-145) mmol/L Potassium 4.2 4.1 (3.5-5.1) mmol/L Chloride 107 103 (98-107) mmol/L Carbon Dioxide 24 19.7 L (22-30) mmol/L BUN 16 14.6 (7-17) mg/dL Creatinine 0.41 L 0.5 L (0.52-1.04) mg/dL Glucose 270 H 169 H (74-99) mg/dL Calcium 8.8 8.7 (8.4-10.2) mg/dL Total Bilirubin 0.8 0.7 (0.2-1.3) mg/dL AST 23 18 (14-36) U/L ALT 21 16 (4-34) U/L Alkaline Phosphatase 141 H 140 H (38-126) U/L Total Protein 6.7 6.2 (6.3-8.2) g/dL Albumin 3.8 3.5 L (3.5-5.0) g/dL
[2024-06-16] MEDS: GABAPENTIN 400 MG CAP PO SCH (16:47)
[2024-06-16] MEDS: busPIRone HCl 5 MG TAB PO SCH (16:47)
[2024-06-16 17:09] LABS: Glucose,Whole Blood 106 mg/dL (70-110)
[2024-06-16 20:09] LABS: Glucose,Whole Blood 127 mg/dL (70-110)
[2024-06-16] MEDS ORDERED: cloNIDine HCL 0.1 MG TAB PO SCH (21:00)
[2024-06-16] MEDS: SODIUM BICARBONATE TAB 650 MG TAB PO SCH (21:15)
[2024-06-16] MEDS: HYDROcodone/APAP 10-325MG 1 EACH TAB PO PRN (21:16)
[2024-06-16] MEDS: traZODone HCL 50 MG TAB PO SCH (21:16)
[2024-06-17 05:19] LABS: Basophils % (A) 0 %; Eosinophils # (A) 0.2 k/uL (0-0.7); Eosinophils % (A) 2 %; HCT 38.3 % (34.0-46.0); HGB 12.8 gm/dL (11.4-16.0); Lymphocytes # (A) 1.2 k/uL (1.0-4.8); Lymphocytes % (A) 17 %; MCH 30.7 pg (25.0-35.0); MCHC 33.4 g/dL (31.0-37.0); Monocytes # (A) 0.4 k/uL (0-1.0); Monocytes % (A) 6 %; Neutrophils # (A) 4.9 k/uL (1.3-7.7); Neutrophils % (A) 72 %; Platelet Count 275 k/uL (150-450); RBC 4.17 m/uL (3.80-5.40); RDW 13.3 % (11.5-15.5); WBC 6.8 k/uL (3.8-10.6)
[2024-06-17 05:30] LABS: African American GFR (CKD) >90 (>60 ml/min/1.73 sqM); Anion Gap 9 mmol/L; Blood Urea Nitrogen 13 mg/dL (7-17); Calcium 8.9 mg/dL (8.4-10.2); Carbon Dioxide 24 mmol/L (22-30); Chloride 107 mmol/L (98-107); Glucose 193 mg/dL (74-99); Non-African American GFR(CKD) >90 (>60 ml/min/1.73 sqM); Potassium 3.6 mmol/L (3.5-5.1); Sodium 140 mmol/L (137-145)
[2024-06-17 06:57] LABS: Glucose,Whole Blood 167 mg/dL (70-110)
[2024-06-17] MEDS: lisinopriL 20 MG TAB PO SCH (08:34)
[2024-06-17] MEDS: FAMOTIDINE 20 MG TAB PO SCH (08:34)
[2024-06-17] MEDS: PANTOPRAZOLE 40 MG TABLET PO SCH (08:35)
[2024-06-17] MEDS: EZETIMIBE 10 MG TAB PO SCH (08:35)
[2024-06-17] MEDS: ATORVASTATIN 80 MG TAB PO SCH (08:35)
[2024-06-17] MEDS ORDERED: lisinopriL 10 MG TAB PO SCH (09:00)
[2024-06-17] MEDS ORDERED: hydroCHLOROthiazide 12.5 MG CAP PO SCH (09:00)
[2024-06-17] MEDS: VANCOMYCIN TROUGH DUE 1 EACH MISC MISCELLANE ONE (09:43)
[2024-06-17 12:38] LABS: Glucose,Whole Blood 115 mg/dL (70-110)
--- NOTE | 2024-06-17 12:43 | P.PN ---
Subjective Patient is admitted for abdominal wall cellulitis patient is presently on vancomycin patient had recent abdominal surgery. Patient redness improved but still is complaining of significant amount of pain is receiving Dilaudid and Toradol for pain. REVIEW OF SYSTEMS: All other systems are negative except those mentioned in the HPI PHYSICAL EXAMINATION: GENERAL: The patient is alert and oriented x3, not in any acute distress. Well developed, well nourished. HEENT: Pupils are round and equally reacting to light. EOMI. No scleral icterus. No conjunctival pallor. Normocephalic, atraumatic. No pharyngeal erythema. No thyromegaly. CARDIOVASCULAR: S1 and S2 present. No murmurs, rubs, or gallops. PULMONARY: Chest is clear to auscultation, no wheezing or crackles. ABDOMEN: Soft, nontender, nondistended, normoactive bowel sounds. No palpable organomegaly. MUSCULOSKELETAL: No joint swelling or deformity. EXTREMITIES: No cyanosis, clubbing, or pedal edema. NEUROLOGICAL: Gross neurological examination did not reveal any focal deficits. SKIN: No rashes. Assessment and plan -Abdominal wall cellulitis vancomycin is appropriate redness improved. If there is a deeper infection patient will need gram-negative and anaerobic coverage as well. Patient is status post ileostomy and reversal of ileostomy recently -COPD without any acute exacerbation -Type 2 diabetes mellitus -Gastroesophageal reflux disease -History of DVT for which patient is on anticoagulation which will is being held temporarily with concerns that patient may need operative intervention we will use DVT prophylaxis. Patient has an IVC filter -Hyperlipidemia -Hypertension DVT prophylaxis: As mentioned above Objective - Vital Signs Vital signs: Vital Signs Temp 97.7 F 06/17/24 07:49 Pulse 80 06/17/24 12:16 Resp 16 06/17/24 07:49 BP 122/81 06/17/24 07:49 Pulse Ox 94 L 06/17/24 07:49 FiO2 Intake & Output 06/16/24 06/17/24 06/17/24 18:59 06:59 18:59 Intake Total 1000 222 240 Balance 1000 222 240 Weight 71.577 kg Intake: Intake, IV Titration 1000 Amount Sodium Chloride 0.9% 1, 750 000 ml @ 75 mls/hr IV . [id number] [facility] Rx#:[id number] Vancomycin 1,250 mg In 250 Sodium Chloride 0.9% 250 ml @ 125 mls/hr IVPB Q12H [facility] Rx#:[id number] Oral 222 240 Other: Voiding Method Toilet Toilet Toilet # Voids 1 # Bowel Movements 1 - Labs CBC & Chem 7: 06/17/24 03:58 06/17/24 03:58 Labs: Abnormal Lab Results - Last 24 Hours (Table) 06/16/24 06/17/24 06/17/24 Range/Units 20:08 03:58 06:56 Glucose 193 H (74-99) mg/dL POC Glucose (mg/dL) 127 H 167 H (70-110) mg/dL 06/17/24 Range/Units 12:37 Glucose (74-99) mg/dL POC Glucose (mg/dL) 115 H (70-110) mg/dL Microbiology - Last 24 Hours (Table) 06/16/24 15:30 Gram Stain - Preliminary Rectum
--- NOTE | 2024-06-17 14:36 | P.PN ---
Subjective Progress Note Date: 06/17/24 CHIEF COMPLAINT: Seroma HISTORY OF PRESENT ILLNESS: Patient continues to report abdominal pain at the incision site. No drainage. Afebrile. WBC 6.8. She did report diarrhea. PHYSICAL EXAM: VITAL SIGNS: Reviewed. GENERAL: Well-developed in no acute distress. ABDOMEN: Soft. Nondistended. Midline incision in the middle of the incision there is a area of firmness that is palpable. Minimal erythema noted. No drainage. Tenderness palpation of the area. NEUROLOGIC: Alert and oriented. Cranial nerves II through XII grossly intact. ASSESSMENT: 1. Postoperative seroma at incision site 2. Recent colostomy reversal and incisional and parastomal hernia repair 3. History of diabetes PLAN: -Continue antibiotics -No surgical intervention planned -Toradol changed to scheduled to help with pain control -Subcu heparin added for DVT prophylaxis Physician Information Assurance Manager note has been reviewed by physician. Signing provider agrees with the documented findings, assessment, and plan of care. Objective - Vital Signs Vital signs: Vital Signs Temp 97.8 F 06/17/24 13:43 Pulse 82 06/17/24 13:43 Resp 17 06/17/24 13:43 BP 128/85 06/17/24 13:43 Pulse Ox 94 L 06/17/24 13:43 FiO2 Intake & Output 06/16/24 06/17/24 06/17/24 18:59 06:59 18:59 Intake Total 1000 222 480 Balance 1000 222 480 Weight 71.577 kg Intake: Intake, IV Titration 1000 Amount Sodium Chloride 0.9% 1, 750 000 ml @ 75 mls/hr IV . [id number] [facility] Rx#:[id number] Vancomycin 1,250 mg In 250 Sodium Chloride 0.9% 250 ml @ 125 mls/hr IVPB Q12H [facility] Rx#:[id number] Oral 222 480 Other: Voiding Method Toilet Toilet Toilet # Voids 1 # Bowel Movements 1 - Labs CBC & Chem 7: 06/17/24 03:58 06/17/24 03:58 Labs: Abnormal Lab Results - Last 24 Hours (Table) 06/16/24 06/17/24 06/17/24 Range/Units 20:08 03:58 06:56 Glucose 193 H (74-99) mg/dL POC Glucose (mg/dL) 127 H 167 H (70-110) mg/dL 06/17/24 Range/Units 12:37 Glucose (74-99) mg/dL POC Glucose (mg/dL) 115 H (70-110) mg/dL Microbiology - Last 24 Hours (Table) 06/16/24 15:30 Gram Stain - Preliminary Rectum
[2024-06-17] MEDS: KETOROLAC 15 MG/ML 1 ML VIAL IVP SCH (15:50)
[2024-06-17 17:18] LABS: Glucose,Whole Blood 179 mg/dL (70-110)
[2024-06-17 20:20] LABS: Glucose,Whole Blood 173 mg/dL (70-110)
[2024-06-17] MEDS: HEPARIN SODIUM,PORCINE 5,000 UNIT/ML 1 ML VIAL SQ SCH (21:15)
[2024-06-18 06:06] LABS: African American GFR (CKD) >90 (>60 ml/min/1.73 sqM); Non-African American GFR(CKD) >90 (>60 ml/min/1.73 sqM)
[2024-06-18 07:13] LABS: Glucose,Whole Blood 125 mg/dL (70-110)
[2024-06-18 12:22] LABS: Glucose,Whole Blood 87 mg/dL (70-110)
--- NOTE | 2024-06-18 14:46 | P.PN ---
Subjective Progress Note Date: 06/18/24 CHIEF COMPLAINT: Seroma HISTORY OF PRESENT ILLNESS: Patient continues to complain of abdominal pain at the incision. She reports that the pain is more on the left side of the incision. Overall pain is better than when she came in to the hospital. There is no drainage from the incision. Patient did not have a bowel movement yesterday. Diarrhea resolved. Afebrile. WBC 6.8 PHYSICAL EXAM: VITAL SIGNS: Reviewed. GENERAL: Well-developed in no acute distress. ABDOMEN: Soft. Nondistended. Midline incision with firmness palpable in the middle of the incision. The firmness on the right side of the incision is less compared to yesterday. There is still some firmness noted on the left. No maine inage from the incision. NEUROLOGIC: Alert and oriented. Cranial nerves II through XII grossly intact. ASSESSMENT: 1. Postoperative seroma at incision site 2. Recent colostomy reversal and incisional and parastomal hernia repair 3. History of diabetes PLAN: -Continue antibiotics -No surgical intervention planned -Continue pain management -Encourage patient to increase activity level -Subcu heparin added for DVT prophylaxis Physician Long Term note has been reviewed by physician. Signing provider agrees with the documented findings, assessment, and plan of care. Objective - Vital Signs Vital signs: Vital Signs Temp 98.0 F 06/18/24 13:34 Pulse 71 06/18/24 13:34 Resp 16 06/18/24 13:34 BP 125/79 06/18/24 13:34 Pulse Ox 95 06/18/24 13:34 FiO2 Intake & Output 06/17/24 06/18/24 06/18/24 18:59 06:59 18:59 Intake Total 2280 590 720 Balance 2280 590 720 Intake: Oral 2280 590 720 Other: Voiding Method Toilet Toilet # Voids 4 2 - Labs CBC & Chem 7: 06/17/24 03:58 06/18/24 05:11 Labs: Abnormal Lab Results - Last 24 Hours (Table) 06/17/24 06/17/24 06/18/24 Range/Units 17:17 20:19 07:11 POC Glucose (mg/dL) 179 H 173 H 125 H (70-110) mg/dL Microbiology - Last 24 Hours (Table) 06/16/24 15:30 Gram Stain - Preliminary Rectum Wound Culture - Preliminary
[2024-06-18 17:02] LABS: Glucose,Whole Blood 115 mg/dL (70-110)
[2024-06-18 20:17] LABS: Glucose,Whole Blood 156 mg/dL (70-110)
--- NOTE | 2024-06-19 04:51 | P.PN ---
Subjective Progress Note Date: 06/18/24 Patient is admitted for abdominal wall cellulitis patient is presently on vancomycin patient had recent abdominal surgery. Patient redness improved but still is complaining of significant amount of pain is receiving Dilaudid and Toradol for pain. 06/18/2024 Patient is seen and evaluated in follow-up this morning reports she continues to have abdominal pain although reports is improving. Patient is maintained on IV antibiotics and cultures have been negative. Patient has been encouraged to increase activity as tolerated. Patient is afebrile and denies chest pain or shortness of breath. Patient tolerating diet and eating small frequent meals. Home medications will be reviewed and resumed as appropriate. Continue to follow along with general surgery Review of systems: Constitutional: No reports of fatigue, fever, or chills Cardiovascular: No reports of chest pain or palpitations Respiratory: No reports of shortness of breath or cough GI: No reports of nausea, vomiting, reports no bowel movement today, reports continued abdominal pain : No reports of dysuria or retention Neurovascular: No reports of weakness or numbness PHYSICAL EXAMINATION: GENERAL: The patient is alert and oriented x3, not in any acute distress. Well developed, well nourished. HEENT: Pupils are round and equally reacting to light. EOMI. No scleral icterus. No conjunctival pallor. Normocephalic, atraumatic. No pharyngeal erythema. No thyromegaly. CARDIOVASCULAR: S1 and S2 present. No murmurs, rubs, or gallops. PULMONARY: Chest is clear to auscultation, no wheezing or crackles. ABDOMEN: Soft, tender on palpation, minimally distended, normoactive bowel sounds. No palpable organomegaly. MUSCULOSKELETAL: No joint swelling or deformity. EXTREMITIES: No cyanosis, clubbing, or pedal edema. NEUROLOGICAL: Gross neurological examination did not reveal any focal deficits. SKIN: No rashes. Assessment and plan -Abdominal wall cellulitis, continued on vancomycin. Redness improved. If there is a deeper infection patient will need gram-negative and anaerobic coverage as well. Patient is status post ileostomy and reversal of ileostomy recently. 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 Patient has an IVC filter -Hyperlipidemia -Hypertension -GI prophylaxis -DVT prophylaxis: As mentioned above -Full code Plan: Patient is continued on IV antibiotics and will for now. Cultures thus far remain negative Home medications reviewed and resumed as appropriate Encouraged increase activity as tolerated We will continue to follow with general surgery. Thank you kindly for this consultation. The impression and plan of care has been dictated by Jennifer Thakkar, Nurse Practitioner as directed. Dr. Leydi MD I have performed a history and examination and MDM of this patient, discussed the same with the dictator, and agree with the dictator's assessment and plan as written ,documented as a scribe. Based on total visit time, I have performed more than 50% of the visit. Objective - Vital Signs Vital signs: Vital Signs Temp 97.5 F L 06/18/24 08:00 Pulse 84 06/18/24 10:54 Resp 16 06/18/24 08:00 BP 139/87 06/18/24 08:00 Pulse Ox 93 L 06/18/24 08:00 FiO2 Intake & Output 06/17/24 06/18/24 06/18/24 18:59 06:59 18:59 Intake Total 2280 590 480 Balance 2280 590 480 Intake: Oral 2280 590 480 Other: Voiding Method Toilet Toilet # Voids 4 2 - Labs CBC & Chem 7: 06/17/24 03:58 06/18/24 05:11 Labs: Abnormal Lab Results - Last 24 Hours (Table) 06/17/24 06/17/24 06/17/24 Range/Units 12:37 17:17 20:19 POC Glucose (mg/dL) 115 H 179 H 173 H (70-110) mg/dL 06/18/24 Range/Units 07:11 POC Glucose (mg/dL) 125 H (70-110) mg/dL Microbiology - Last 24 Hours (Table) 06/16/24 15:30 Gram Stain - Preliminary Rectum Wound Culture - Preliminary
[2024-06-19 08:10] LABS: African American GFR (CKD) >90 (>60 ml/min/1.73 sqM); Non-African American GFR(CKD) >90 (>60 ml/min/1.73 sqM)
[2024-06-19 08:39] LABS: Glucose,Whole Blood 157 mg/dL (70-110)
[2024-06-19] MEDS: VANCOMYCIN TROUGH DUE 1 EACH MISC MISCELLANE ONE (08:42)
[2024-06-19] MEDS: HYDROmorphone 0.5 MG/0.5 ML SYRINGE IVP ONE (10:19)
[2024-06-19 10:36] LABS: Basophils # (A) 0.03 X 10*3/uL (0.00-0.10); Basophils % (A) 0.6 %; Eosinophils # (A) 0.15 X 10*3/uL (0.04-0.35); Eosinophils % (A) 2.8 %; HCT 32.9 % (37.2-46.3); HGB 10.7 g/dL (12.0-15.0); Lymphocytes # (A) 0.81 X 10*3/uL (0.90-5.00); MCH 30.3 pg (27.0-32.0); MCHC 32.5 g/dL (32.0-37.0); MCV 93.2 FL (80.0-97.0); Mean Platelet Volume 10.5 FL (9.5-12.2); Monocytes # (A) 0.41 X 10*3/uL (0.20-1.00); Monocytes % (A) 7.6 %; NRBC Per 100 WBC 0 X 10*3/uL (0.00-0.01); Neutrophils # (A) 3.97 X 10*3/uL (1.80-7.70); Neutrophils % (A) 73.6 %; Platelet Count 278 X 10*3/uL (140-440); RBC 3.53 X 10*6/uL (4.10-5.20); WBC 5.39 X 10*3/uL (4.50-10.00)
[2024-06-19 12:16] LABS: Glucose,Whole Blood 101 mg/dL (70-110)
[2024-06-19] MEDS: HYDROcodone/APAP 10-325MG 1 EACH TAB PO PRN (13:34)
--- NOTE | 2024-06-19 13:54 | P.PN ---
Subjective Progress Note Date: 06/19/24 CHIEF COMPLAINT: Seroma HISTORY OF PRESENT ILLNESS: Patient continues to complain of abdominal pain at the incision. Patient has been using the IV Dilaudid 1 mg every 3 hours. Afebrile. WBC 5.39 Patient seen and examined with Dr. Lewis PHYSICAL EXAM: VITAL SIGNS: Reviewed. GENERAL: Well-developed in no acute distress. ABDOMEN: Soft. Nondistended. Midline incision with firmness palpable in the middle of the incision. It is tender with palpation. No drainage from incision. NEUROLOGIC: Alert and oriented. Cranial nerves II through XII grossly intact. ASSESSMENT: 1. Postoperative seroma at incision site 2. Recent colostomy reversal and incisional and parastomal hernia repair 3. History of diabetes PLAN: -Continue antibiotics -No surgical intervention planned -Recommend to keep patient over the weekend to receive antibiotics and pain control -Continue pain management. Pain medications have been adjusted. Add decrease in the Dilaudid to 0.5 mg every 4 hours as needed for pain. Encourage patient to take the Flynn tens and adjust the dose to every 6 hours as needed -Encourage patient to increase activity level -Subcu heparin added for DVT prophylaxis Physician Animal Scientist note has been reviewed by physician. Signing provider agrees with the documented findings, assessment, and plan of care. Objective - Vital Signs Vital signs: Vital Signs Temp 97.9 F 06/19/24 12:00 Pulse 72 06/19/24 12:51 Resp 17 06/19/24 12:00 BP 150/82 06/19/24 12:00 Pulse Ox 97 06/19/24 12:00 FiO2 Intake & Output 06/18/24 06/19/24 06/19/24 18:59 06:59 18:59 Intake Total 2580 Balance 2580 Intake: Oral 2580 Other: Voiding Method Toilet Toilet # Voids 7 2 - Labs CBC & Chem 7: 06/19/24 07:32 06/19/24 07:32 Labs: Abnormal Lab Results - Last 24 Hours (Table) 06/18/24 06/18/24 06/19/24 Range/Units 17:01 20:14 07:32 RBC 3.53 L (4.10-5.20) X 10*6/uL Hgb 10.7 L (12.0-15.0) g/dL Hct 32.9 L (37.2-46.3) % Lymphocytes # 0.81 L (0.90-5.00) X 10*3/uL POC Glucose (mg/dL) 115 H 156 H (70-110) mg/dL 06/19/24 Range/Units 08:37 RBC (4.10-5.20) X 10*6/uL Hgb (12.0-15.0) g/dL Hct (37.2-46.3) % Lymphocytes # (0.90-5.00) X 10*3/uL POC Glucose (mg/dL) 157 H (70-110) mg/dL Microbiology - Last 24 Hours (Table) 06/16/24 15:30 Gram Stain - Final Rectum Wound Culture - Final
--- NOTE | 2024-06-19 15:41 | P.PN ---
Subjective Patient is admitted for abdominal wall cellulitis patient is presently on vancomycin patient had recent abdominal surgery. Patient redness improved but still is complaining of significant amount of pain is receiving Dilaudid and Toradol for pain. 06/18/2024 Patient is seen and evaluated in follow-up this morning reports she continues to have abdominal pain although reports is improving. Patient is maintained on IV antibiotics and cultures have been negative. Patient has been encouraged to increase activity as tolerated. Patient is afebrile and denies chest pain or shortness of breath. Patient tolerating diet and eating small frequent meals. Home medications will be reviewed and resumed as appropriate. Continue to follow along with general surgery 06/19/2024 Patient is seen at bedside no significant overnight events. Patient continues on IV antibiotics and cultures have been negative thus far. Patient is ambulating well. Review of systems: Constitutional: No reports of fatigue, fever, or chills Cardiovascular: No reports of chest pain or palpitations Respiratory: No reports of shortness of breath or cough GI: No reports of nausea, vomiting, reports no bowel movement today, reports continued abdominal pain : No reports of dysuria or retention Neurovascular: No reports of weakness or numbness PHYSICAL EXAMINATION: GENERAL: The patient is alert and oriented x3, not in any acute distress. Well developed, well nourished. HEENT: Pupils are round and equally reacting to light. EOMI. No scleral icterus. No conjunctival pallor. Normocephalic, atraumatic. No pharyngeal erythema. No thyromegaly. CARDIOVASCULAR: S1 and S2 present. No murmurs, rubs, or gallops. PULMONARY: Chest is clear to auscultation, no wheezing or crackles. ABDOMEN: Soft, tender on palpation, minimally distended, normoactive bowel sounds. No palpable organomegaly. MUSCULOSKELETAL: No joint swelling or deformity. EXTREMITIES: No cyanosis, clubbing, or pedal edema. NEUROLOGICAL: Gross neurological examination did not reveal any focal deficits. SKIN: No rashes. Assessment and plan -Abdominal wall cellulitis, continued on vancomycin. Redness improved. If there is a deeper infection patient will need gram-negative and anaerobic coverage as well. Patient is status post ileostomy and reversal of ileostomy recently. 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 Patient has an IVC filter -Hyperlipidemia -Hypertension -GI prophylaxis -DVT prophylaxis: As mentioned above -Full code Plan: Patient is continued on IV antibiotics and will for now. Cultures thus far rem ain negative Per primary will keep the patient through the weekend on antibiotics and we will consider discharge at the beginning of next week Home medications reviewed and resumed as appropriate Encouraged increase activity as tolerated We will continue to follow with general surgery. Thank you kindly for this consultation. Objective - Vital Signs Vital signs: Vital Signs Temp 97.9 F 06/19/24 12:00 Pulse 72 06/19/24 12:51 Resp 17 06/19/24 12:00 BP 150/82 06/19/24 12:00 Pulse Ox 97 06/19/24 12:00 FiO2 Intake & Output 06/18/24 06/19/24 06/19/24 18:59 06:59 18:59 Intake Total 2580 Balance 2580 Intake: Oral 2580 Other: Voiding Method Toilet Toilet Toilet # Voids 7 2 - Labs CBC & Chem 7: 06/19/24 07:32 06/19/24 07:32 Labs: Abnormal Lab Results - Last 24 Hours (Table) 06/18/24 06/18/24 06/19/24 Range/Units 17:01 20:14 07:32 RBC 3.53 L (4.10-5.20) X 10*6/uL Hgb 10.7 L (12.0-15.0) g/dL Hct 32.9 L (37.2-46.3) % Lymphocytes # 0.81 L (0.90-5.00) X 10*3/uL POC Glucose (mg/dL) 115 H 156 H (70-110) mg/dL 06/19/24 Range/Units 08:37 RBC (4.10-5.20) X 10*6/uL Hgb (12.0-15.0) g/dL Hct (37.2-46.3) % Lymphocytes # (0.90-5.00) X 10*3/uL POC Glucose (mg/dL) 157 H (70-110) mg/dL Microbiology - Last 24 Hours (Table) 06/16/24 15:30 Gram Stain - Final Rectum Wound Culture - Final
[2024-06-19] MEDS: HYDROmorphone 0.5 MG/0.5 ML SYRINGE IVP PRN (17:15)
[2024-06-19 17:29] LABS: Glucose,Whole Blood 122 mg/dL (70-110)
[2024-06-19 19:58] LABS: Glucose,Whole Blood 140 mg/dL (70-110)
[2024-06-20 06:22] LABS: Basophils % (A) 1 %; Eosinophils # (A) 0.2 k/uL (0-0.7); Eosinophils % (A) 3 %; HCT 33.3 % (34.0-46.0); HGB 10.8 gm/dL (11.4-16.0); Lymphocytes # (A) 0.8 k/uL (1.0-4.8); Lymphocytes % (A) 15 %; MCH 29.8 pg (25.0-35.0); MCHC 32.5 g/dL (31.0-37.0); MCV 91.7 fL (80.0-100.0); Mean Platelet Volume 8.1; Monocytes # (A) 0.4 k/uL (0-1.0); Monocytes % (A) 6 %; Neutrophils % (A) 72 %; Platelet Count 259 k/uL (150-450); RBC 3.63 m/uL (3.80-5.40); RDW 13.3 % (11.5-15.5); WBC 5.6 k/uL (3.8-10.6)
[2024-06-20 07:06] LABS: Glucose,Whole Blood 135 mg/dL (70-110)
[2024-06-20 11:33] VITALS: BMI 27.1
--- NOTE | 2024-06-20 11:41 | P.PN ---
Subjective Progress Note Date: 06/20/24 CHIEF COMPLAINT: Seroma HISTORY OF PRESENT ILLNESS: Patient reports pain in her abdominal incision. She says the pain is getting better each day. Afebrile. WBC 5.6 Hgb 10.8 PHYSICAL EXAM: VITAL SIGNS: Reviewed. GENERAL: Well-developed in no acute distress. ABDOMEN: Soft. Nondistended. Midline incision with firmness palpable in the middle of the incision with erythema. It is tender with palpation. No drainage from incision. NEUROLOGIC: Alert and oriented. Cranial nerves II through XII grossly intact. ASSESSMENT: 1. Postoperative seroma at incision site 2. Recent colostomy reversal and incisional and parastomal hernia repair 3. History of diabetes PLAN: -Continue antibiotics -No surgical intervention planned -Recommend to keep patient over the weekend to receive antibiotics and pain control -Continue pain management -Encourage patient to increase activity level -Subcu heparin added for DVT prophylaxis Physician Acoustical Carpenter note has been reviewed by physician. Signing provider agrees with the documented findings, assessment, and plan of care. Objective - Vital Signs Vital signs: Vital Signs Temp 97.6 F 06/20/24 07:38 Pulse 76 06/20/24 09:44 Resp 18 06/20/24 07:38 BP 137/83 06/20/24 07:38 Pulse Ox 95 06/20/24 07:38 FiO2 Intake & Output 06/19/24 06/20/24 06/20/24 18:59 06:59 18:59 Intake Total 1000 Balance 1000 Weight 71.577 kg Intake: Intake, IV Titration 1000 Amount Sodium Chloride 0.9% 1, 750 000 ml @ 75 mls/hr IV . [id number] [facility] Rx#:[id number] Vancomycin 1,250 mg In 250 Sodium Chloride 0.9% 250 ml @ 125 mls/hr IVPB Q12H [facility] Rx#:[id number] Other: Voiding Method Toilet Toilet Toilet # Voids 2 1 # Bowel Movements 1 - Labs CBC & Chem 7: 06/20/24 05:30 06/19/24 07:32 Labs: Abnormal Lab Results - Last 24 Hours (Table) 06/19/24 06/19/24 06/20/24 Range/Units 17:18 19:55 05:30 RBC 3.63 L (3.80-5.40) m/uL Hgb 10.8 L (11.4-16.0) gm/dL Hct 33.3 L (34.0-46.0) % Lymphocytes # 0.8 L (1.0-4.8) k/uL POC Glucose (mg/dL) 122 H 140 H (70-110) mg/dL 06/20/24 Range/Units 07:05 RBC (3.80-5.40) m/uL Hgb (11.4-16.0) gm/dL Hct (34.0-46.0) % Lymphocytes # (1.0-4.8) k/uL POC Glucose (mg/dL) 135 H (70-110) mg/dL
[2024-06-20 12:09] LABS: Glucose,Whole Blood 149 mg/dL (70-110)
--- NOTE | 2024-06-20 14:39 | P.PN ---
Subjective Patient is admitted for abdominal wall cellulitis patient is presently on vancomycin patient had recent abdominal surgery. Patient redness improved but still is complaining of significant amount of pain is receiving Dilaudid and Toradol for pain. 06/18/2024 Patient is seen and evaluated in follow-up this morning reports she continues to have abdominal pain although reports is improving. Patient is maintained on IV antibiotics and cultures have been negative. Patient has been encouraged to increase activity as tolerated. Patient is afebrile and denies chest pain or shortness of breath. Patient tolerating diet and eating small frequent meals. Home medications will be reviewed and resumed as appropriate. Continue to follow along with general surgery 06/19/2024 Patient is seen at bedside no significant overnight events. Patient continues on IV antibiotics and cultures have been negative thus far. Patient is ambulating well. 06/20/2024 Patient seen at bedside and no significant overnight events. Patient reports her abdominal pain has improved since admission now about a 6 out of 10 compared to "100 out of 10". Patient reports her pain management with medication is working well. Patient continues to eat to drink and ambulate well. No further complaints. Review of systems: Constitutional: No reports of fatigue, fever, or chills Cardiovascular: No reports of chest pain or palpitations Respiratory: No reports of shortness of breath or cough GI: No reports of nausea, vomiting, reports no bowel movement today, reports continued abdominal pain : No reports of dysuria or retention Neurovascular: No reports of weakness or numbness PHYSICAL EXAMINATION: GENERAL: The patient is alert and oriented x3, not in any acute distress. Well developed, well nourished. HEENT: Pupils are round and equally reacting to light. EOMI. No scleral icterus. No conjunctival pallor. Normocephalic, atraumatic. No pharyngeal erythema. No thyromegaly. CARDIOVASCULAR: S1 and S2 present. No murmurs, rubs, or gallops. PULMONARY: Chest is clear to auscultation, no wheezing or crackles. ABDOMEN: Soft, tender on palpation, minimally distended, normoactive bowel sounds. No palpable organomegaly. MUSCULOSKELETAL: No joint swelling or deformity. EXTREMITIES: No cyanosis, clubbing, or pedal edema. NEUROLOGICAL: Gross neurological examination did not reveal any focal deficits. SKIN: No rashes. Assessment and plan -Abdominal wall cellulitis, continued on vancomycin. Redness improved. If there is a deeper infection patient will need gram-negative and anaerobic coverage as well. Patient is status post ileostomy and reversal of ileostomy recently. 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 Patient has an IVC filter -Hyperlipidemia -Hypertension -GI prophylaxis -DVT prophylaxis: As mentioned above -Full code Plan: Patient is continued on IV antibiotics and will for now. Cultures thus far remain negative Per primary will keep the patient through the weekend on antibiotics and we will consider discharge at the beginning of next week Home medications reviewed and resumed as appropriate Encouraged increase activity as tolerated We will continue to follow with general surgery. Thank you kindly for this consultation. Objective - Vital Signs Vital signs: Vital Signs Temp 97.6 F 06/20/24 07:38 Pulse 60 06/20/24 07:38 Resp 18 06/20/24 07:38 BP 137/83 06/20/24 07:38 Pulse Ox 95 06/20/24 07:38 FiO2 Intake & Output 06/19/24 06/20/24 06/20/24 18:59 06:59 18:59 Intake Total 1000 Balance 1000 Intake: Intake, IV Titration 1000 Amount Sodium Chloride 0.9% 1, 750 000 ml @ 75 mls/hr IV . [id number] [facility] Rx#:[id number] Vancomycin 1,250 mg In 250 Sodium Chloride 0.9% 250 ml @ 125 mls/hr IVPB Q12H [facility] Rx#:[id number] Other: Voiding Method Toilet Toilet # Voids 2 1 # Bowel Movements 1 - Labs CBC & Chem 7: 06/20/24 05:30 06/19/24 07:32 Labs: Abnormal Lab Results - Last 24 Hours (Table) 06/19/24 06/19/24 06/19/24 Range/Units 07:32 08:37 17:18 RBC 3.53 L (4.10-5.20) X 10*6/uL Hgb 10.7 L (12.0-15.0) g/dL Hct 32.9 L (37.2-46.3) % Lymphocytes # 0.81 L (0.90-5.00) X 10*3/uL POC Glucose (mg/dL) 157 H 122 H (70-110) mg/dL 06/19/24 06/20/24 06/20/24 Range/Units 19:55 05:30 07:05 RBC 3.63 L (4.10-5.20) X 10*6/uL Hgb 10.8 L (12.0-15.0) g/dL Hct 33.3 L (37.2-46.3) % Lymphocytes # 0.8 L (0.90-5.00) X 10*3/uL POC Glucose (mg/dL) 140 H 135 H (70-110) mg/dL
[2024-06-20 17:11] LABS: Glucose,Whole Blood 132 mg/dL (70-110)
[2024-06-20 20:15] LABS: Glucose,Whole Blood 175 mg/dL (70-110)
[2024-06-21 04:46] LABS: African American GFR (CKD) >90 (>60 ml/min/1.73 sqM); Non-African American GFR(CKD) >90 (>60 ml/min/1.73 sqM)
[2024-06-21 07:01] LABS: Glucose,Whole Blood 150 mg/dL (70-110)
[2024-06-21 09:22] LABS: Basophils # (A) 0.03 X 10*3/uL (0.00-0.10); Basophils % (A) 0.6 %; Eosinophils # (A) 0.17 X 10*3/uL (0.04-0.35); Eosinophils % (A) 3.2 %; HCT 34.5 % (37.2-46.3); HGB 11.1 g/dL (12.0-15.0); Lymphocytes # (A) 0.66 X 10*3/uL (0.90-5.00); Lymphocytes % (A) 12.5 %; MCH 30.3 pg (27.0-32.0); MCHC 32.2 g/dL (32.0-37.0); MCV 94.3 FL (80.0-97.0); Mean Platelet Volume 10.4 FL (9.5-12.2); Monocytes # (A) 0.36 X 10*3/uL (0.20-1.00); Monocytes % (A) 6.8 %; NRBC Per 100 WBC 0 X 10*3/uL (0.00-0.01); Neutrophils # (A) 4.03 X 10*3/uL (1.80-7.70); Neutrophils % (A) 76.3 %; Platelet Count 246 X 10*3/uL (140-440); RBC 3.66 X 10*6/uL (4.10-5.20); RDW 13.2 % (11.5-14.5); WBC 5.28 X 10*3/uL (4.50-10.00)
--- NOTE | 2024-06-21 11:26 | P.PN ---
Subjective Progress Note Date: 06/21/24 No acute events overnight. Patient with spontaneous drainage from prior midline laparotomy incision. She states that this drainage is clear in nature and was reinforced with gauze dressing by the nursing staff overnight. Denies any fevers or chills. No shortness of breath or chest pain. Tolerating regular diet without issue. Endorses flatus and bowel movements overnight. Voiding without issue. No headache or blurry vision Objective - Vital Signs Vital signs: Vital Signs Temp 97.4 F L 06/21/24 07:17 Pulse 63 06/21/24 11:17 Resp 20 06/21/24 07:17 BP 132/85 06/21/24 07:17 Pulse Ox 94 L 06/21/24 07:17 FiO2 Intake & Output 06/20/24 06/21/24 06/21/24 18:59 06:59 18:59 Intake Total 1206 620 Balance 1206 620 Weight 71.577 kg Intake: Oral 1206 620 Other: Voiding Method Toilet # Voids 1 2 - Exam Gen: AxO, NAD Pulm: non-labored respirations Abd: midline incision with serous drainage seen. Mild erythema around incision seen. No wound dehiscence seen. No crepitus to palpation. No fluctuance appreciated. Non-distended. No guarding/rebound/rigidity Extrem: no edema seen - Labs CBC & Chem 7: 06/21/24 04:08 06/21/24 04:08 Labs: Abnormal Lab Results - Last 24 Hours (Table) 06/20/24 06/20/24 06/20/24 Range/Units 12:07 17:09 20:13 RBC (4.10-5.20) X 10*6/uL Hgb (12.0-15.0) g/dL Hct (37.2-46.3) % Lymphocytes # (0.90-5.00) X 10*3/uL POC Glucose (mg/dL) 149 H 132 H 175 H (70-110) mg/dL 06/21/24 06/21/24 Range/Units 04:08 07:00 RBC 3.66 L (4.10-5.20) X 10*6/uL Hgb 11.1 L (12.0-15.0) g/dL Hct 34.5 L (37.2-46.3) % Lymphocytes # 0.66 L (0.90-5.00) X 10*3/uL POC Glucose (mg/dL) 150 H (70-110) mg/dL Assessment and Plan Assessment: Patient is a 54-year-old female with a past medical history of recent colostomy reversal who presents with incisional seroma Plan: -Continue local wound care -IV abx -PRN nausea and pain control -Diet as tolerated -Activity as tolerated -No acute surgical intervention Suresh Pfeiffer M.D. General Surgery
[2024-06-21 12:12] LABS: Glucose,Whole Blood 176 mg/dL (70-110)
[2024-06-21 17:09] LABS: Glucose,Whole Blood 98 mg/dL (70-110)
--- NOTE | 2024-06-21 17:28 | XR ---
EXAMINATION TYPE: XR abdomen 2V DATE OF EXAM: 06/21/2024 CLINICAL DATA: 54-year-old female with abdominal pain, history of hiatal hernia surgery one month ag o, [facility] COMPARISON: 06/01/2024 FINDINGS: Lung bases are clear. No evidence for free intraperitoneal air. No dilated small bowel or air-fluid levels. There is moderate stool in the right-sided the abdomen. A ir extends distally to the rectum. Small pelvic phleboliths. IVC filter noted. IMPRESSION: No evidence for free air or bowel obstruction. Moderate stool in the right side of the abdomen. [facility], , 06/21/2024 5:25 PM
[2024-06-21 20:29] LABS: Glucose,Whole Blood 126 mg/dL (70-110)
--- NOTE | 2024-06-22 05:34 | P.PN ---
Subjective Progress Note Date: 06/21/24 Patient is admitted for abdominal wall cellulitis patient is presently on vancomycin patient had recent abdominal surgery. Patient redness improved but still is complaining of significant amount of pain is receiving Dilaudid and Toradol for pain. 06/18/2024 Patient is seen and evaluated in follow-up this morning reports she continues to have abdominal pain although reports is improving. Patient is maintained on IV antibiotics and cultures have been negative. Patient has been encouraged to increase activity as tolerated. Patient is afebrile and denies chest pain or shortness of breath. Patient tolerating diet and eating small frequent meals. Home medications will be reviewed and resumed as appropriate. Continue to follow along with general surgery 06/19/2024 Patient is seen at bedside no significant overnight events. Patient continues on IV antibiotics and cultures have been negative thus far. Patient is ambulating well. 06/20/2024 Patient seen at bedside and no significant overnight events. Patient reports her abdominal pain has improved since admission now about a 6 out of 10 compared to "100 out of 10". Patient reports her pain management with medication is working well. Patient continues to eat to drink and ambulate well. No further complaints. 06/21/2024 Patient is seen and evaluated in follow-up admitted under general surgery services maintained on IV antibiotics with infectious disease following. Patient is tolerating diet although not eating as much as patient reports to feeling full. Patient is passing gas but has not had a bowel movement yet. Con tinue current bowel regimen and also continue to encourage frequent walks down the [place]. Per nursing staff patient has been walking. Review of systems: Constitutional: No reports of fatigue, fever, or chills Cardiovascular: No reports of chest pain or palpitations Respiratory: No reports of shortness of breath or cough GI: No reports of nausea, vomiting, reports no bowel movement today, reports continued abdominal pain with some bloating : No reports of dysuria or retention Neurovascular: No reports of weakness or numbness PHYSICAL EXAMINATION: GENERAL: The patient is alert and oriented x3, not in any acute distress. Well developed, well nourished. HEENT: Pupils are round and equally reacting to light. EOMI. No scleral icterus. No conjunctival pallor. Normocephalic, atraumatic. No pharyngeal erythema. No thyromegaly. CARDIOVASCULAR: S1 and S2 present. No murmurs, rubs, or gallops. PULMONARY: Chest is clear to auscultation, no wheezing or crackles. ABDOMEN: Soft, tender on palpation, mildly distended, normoactive bowel sounds. No palpable organomegaly. MUSCULOSKELETAL: No joint swelling or deformity. EXTREMITIES: No cyanosis, clubbing, or pedal edema. NEUROLOGICAL: Gross neurological examination did not reveal any focal deficits. SKIN: No rashes. Assessment and plan -Abdominal wall cellulitis, continued on vancomycin. Redness improved. If there is a deeper infection patient will need gram-negative and anaerobic coverage as well. Patient is status post ileostomy and reversal of ileostomy recently. 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 Patient has an IVC filter -Hyperlipidemia -Hypertension -GI prophylaxis -DVT prophylaxis: As mentioned above -Full code Plan: Patient is continued on IV antibiotics and will for now with infectious disease following. Cultures thus far remain negative Per primary will keep the patient through the weekend on antibiotics and we will consider discharge at the beginning of next week Home medications reviewed and resumed as appropriate Encouraged increase activity as tolerated with frequent walking X-ray of the abdomen was ordered showing moderate amount of stool with no obstruction noted We will continue to follow with general surgery. Thank you kindly for this consultation. The impression and plan of care has been dictated by Jennifer Thakkar, Nurse Practitioner as directed. Dr. Sharlene MD I have performed a history and examination and MDM of this patient, discussed the same with the dictator, and agree with the dictator's assessment and plan as written ,documented as a scribe. Based on total visit time, I have performed more than 50% of the visit. Objective - Vital Signs Vital signs: Vital Signs Temp 97.4 F L 06/21/24 07:17 Pulse 69 06/21/24 07:17 Resp 20 06/21/24 07:17 BP 132/85 06/21/24 07:17 Pulse Ox 94 L 06/21/24 07:17 FiO2 Intake & Output 06/20/24 06/21/24 06/21/24 18:59 06:59 18:59 Intake Total 1206 620 Balance 1206 620 Weight 71.577 kg Intake: Oral 1206 620 Other: Voiding Method Toilet # Voids 1 2 - Labs CBC & Chem 7: 06/21/24 04:08 06/21/24 04:08 Labs: Abnormal Lab Results - Last 24 Hours (Table) 06/20/24 06/20/24 06/20/24 Range/Units 12:07 17:09 20:13 RBC (4.10-5.20) X 10*6/uL Hgb (12.0-15.0) g/dL Hct (37.2-46.3) % Lymphocytes # (0.90-5.00) X 10*3/uL POC Glucose (mg/dL) 149 H 132 H 175 H (70-110) mg/dL 06/21/24 06/21/24 Range/Units 04:08 07:00 RBC 3.66 L (4.10-5.20) X 10*6/uL Hgb 11.1 L (12.0-15.0) g/dL Hct 34.5 L (37.2-46.3) % Lymphocytes # 0.66 L (0.90-5.00) X 10*3/uL POC Glucose (mg/dL) 150 H (70-110) mg/dL
[2024-06-22 07:10] LABS: Glucose,Whole Blood 127 mg/dL (70-110)
[2024-06-22] MEDS: VANCOMYCIN TROUGH DUE 1 EACH MISC MISCELLANE ONE (08:00)
[2024-06-22 08:14] LABS: African American GFR (CKD) >90 (>60 ml/min/1.73 sqM); Non-African American GFR(CKD) >90 (>60 ml/min/1.73 sqM)
--- NOTE | 2024-06-22 09:21 | P.PN ---
Subjective Progress Note Date: 06/22/24 Principal diagnosis: Abdominal wall seroma Patient complaining of mild discomfort in the abdomen. No fevers. Tolerating diet. Normal bowel function. Yesterday had an x-ray of the abdomen showing right-sided constipation. Objective - Vital Signs Vital signs: Vital Signs Temp 97.6 F 06/22/24 07:04 Pulse 60 06/22/24 07:04 Resp 16 06/22/24 07:04 BP 121/71 06/22/24 07:04 Pulse Ox 90 L 06/22/24 07:04 FiO2 Intake & Output 06/21/24 06/22/24 06/22/24 18:59 06:59 18:59 Intake Total 1464 480 240 Balance 1464 480 240 Intake: Oral 1464 480 240 Other: Voiding Method Toilet # Voids 1 2 - Exam Abdomen: Soft, mild tenderness along midline, mild erythema and some seropurulent drainage from the mid aspect of the incision - Labs CBC & Chem 7: 06/21/24 04:08 06/22/24 07:47 Labs: Abnormal Lab Results - Last 24 Hours (Table) 06/21/24 06/21/24 06/21/24 Range/Units 04:08 12:11 20:26 RBC 3.66 L (4.10-5.20) X 10*6/uL Hgb 11.1 L (12.0-15.0) g/dL Hct 34.5 L (37.2-46.3) % Lymphocytes # 0.66 L (0.90-5.00) X 10*3/uL POC Glucose (mg/dL) 176 H 126 H (70-110) mg/dL 06/22/24 Range/Units 07:09 RBC (4.10-5.20) X 10*6/uL Hgb (12.0-15.0) g/dL Hct (37.2-46.3) % Lymphocytes # (0.90-5.00) X 10*3/uL POC Glucose (mg/dL) 127 H (70-110) mg/dL Assessment and Plan (1) Abdominal wall abscess Narrative/Plan: Continue IV antibiotics. Monitor drainage site. May require further intervention. Stool softeners for constipation seen on x-ray. Current Visit: Yes Status: Acute Code(s): L02.211 - CUTANEOUS ABSCESS OF ABDOMINAL WALL SNOMED Code(s): 70318149
[2024-06-22 12:20] LABS: Glucose,Whole Blood 103 mg/dL (70-110)
[2024-06-22 17:06] LABS: Glucose,Whole Blood 175 mg/dL (70-110)
[2024-06-22 20:21] LABS: Glucose,Whole Blood 178 mg/dL (70-110)
[2024-06-22] MEDS: LACTULOSE 20 GM/30 ML CUP PO SCH (20:49)
--- NOTE | 2024-06-23 05:36 | P.PN ---
Subjective Progress Note Date: 06/22/24 Patient is admitted for abdominal wall cellulitis patient is presently on vancomycin patient had recent abdominal surgery. Patient redness improved but still is complaining of significant amount of pain is receiving Dilaudid and Toradol for pain. 06/18/2024 Patient is seen and evaluated in follow-up this morning reports she continues to have abdominal pain although reports is improving. Patient is maintained on IV antibiotics and cultures have been negative. Patient has been encouraged to increase activity as tolerated. Patient is afebrile and denies chest pain or shortness of breath. Patient tolerating diet and eating small frequent meals. Home medications will be reviewed and resumed as appropriate. Continue to follow along with general surgery 06/19/2024 Patient is seen at bedside no significant overnight events. Patient continues on IV antibiotics and cultures have been negative thus far. Patient is ambulating well. 06/20/2024 Patient seen at bedside and no significant overnight events. Patient reports her abdominal pain has improved since admission now about a 6 out of 10 compared to "100 out of 10". Patient reports her pain management with medication is working well. Patient continues to eat to drink and ambulate well. No further complaints. 06/21/2024 Patient is seen and evaluated in follow-up admitted under general surgery services maintained on IV antibiotics with infectious disease following. Patient is tolerating diet although not eating as much as patient reports to feeling full. Patient is passing gas but has not had a bowel movement yet. Con tinue current bowel regimen and also continue to encourage frequent walks down the [place]. Per nursing staff patient has been walking. 06/22/2024 Patient is seen in follow-up today with general surgery as attending. Currently tolerating diet although reports to some fullness and has not had a bowel movement. Abdominal x-ray showing constipation. Patient reports to passing gas and will continue on stool softeners and bowel regimen. To discuss further with general surgery regarding treatment plan. Patient is afebrile with no reports of chest pain or shortness of breath. Patient has been up and walking and encouraged the patient to walk at least once every hour. Review of systems: Constitutional: No reports of fatigue, fever, or chills Cardiovascular: No reports of chest pain or palpitations Respiratory: No reports of shortness of breath or cough GI: No reports of nausea, vomiting, reports no bowel movement today, reports continued abdominal pain with some bloating : No reports of dysuria or retention Neurovascular: No reports of weakness or numbness PHYSICAL EXAMINATION: GENERAL: The patient is alert and oriented x3, not in any acute distress. Well developed, well nourished. HEENT: Pupils are round and equally reacting to light. EOMI. No scleral icterus. No conjunctival pallor. Normocephalic, atraumatic. No pharyngeal erythema. No thyromegaly. CARDIOVASCULAR: S1 and S2 present. No murmurs, rubs, or gallops. PULMONARY: Chest is clear to auscultation, no wheezing or crackles. ABDOMEN: Soft, tender on palpation, mildly distended, normoactive bowel sounds. No palpable organomegaly. MUSCULOSKELETAL: No joint swelling or deformity. EXTREMITIES: No cyanosis, clubbing, or pedal edema. NEUROLOGICAL: Gross neurological examination did not reveal any focal deficits. SKIN: No rashes. Assessment and plan -Abdominal wall cellulitis, continued on vancomycin. Redness improved. If there is a deeper infection patient will need gram-negative and anaerobic cover age as well. Patient is status post ileostomy and reversal of ileostomy recently. 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 Patient has an IVC filter -Hyperlipidemia -Hypertension -GI prophylaxis -DVT prophylaxis: As mentioned above -Full code Plan: Patient is continued on IV antibiotics and will for now with infectious disease following. Cultures thus far remain negative Per primary will keep the patient through the weekend on antibiotics and we will consider discharge at the beginning of next week Home medications reviewed and resumed as appropriate Encouraged increase activity as tolerated with frequent walking X-ray of the abdomen yesterday showing moderate amount of stool with constipation, no obstruction noted, continue bowel regimen We will continue to follow with general surgery. Thank you kindly for this consultation. The impression and plan of care has been dictated by Jennifer Thakkar Nurse Prac titioner as directed. Dr. Sharlene MD I have performed a history and examination and MDM of this patient, discussed the same with the dictator, and agree with the dictator's assessment and plan as written ,documented as a scribe. Based on total visit time, I have performed more than 50% of the visit. Objective - Vital Signs Vital signs: Vital Signs Temp 98.0 F 06/23/24 01:14 Pulse 71 06/23/24 01:14 Resp 18 06/23/24 01:14 BP 146/76 06/23/24 01:14 Pulse Ox 92 L 06/23/24 01:14 FiO2 Intake & Output 06/22/24 06/22/24 06/23/24 06:59 18:59 06:59 Intake Total 480 2520 Output Total 1 Balance 480 2519 Intake: Oral 480 2520 Output: Stool 1 Other: Voiding Method Toilet Toilet # Voids 2 6 - Labs CBC & Chem 7: 06/21/24 04:08 06/22/24 07:47 Labs: Abnormal Lab Results - Last 24 Hours (Table) 06/22/24 06/22/24 06/22/24 Range/Units 07:09 17:05 20:19 POC Glucose (mg/dL) 127 H 175 H 178 H (70-110) mg/dL
[2024-06-23 07:03] LABS: Glucose,Whole Blood 123 mg/dL (70-110)
[2024-06-23] MEDS: SENNOSIDES 8.6 MG TAB PO SCH (08:13)
[2024-06-23 12:38] LABS: Glucose,Whole Blood 163 mg/dL (70-110)
--- NOTE | 2024-06-23 15:23 | P.PN ---
Subjective Progress Note Date: 06/23/24 CHIEF COMPLAINT: Seroma HISTORY OF PRESENT ILLNESS: Over the weekend patient started having drainage from the midline incision. Drainage is seropurulent. She had issues with constipation and received lactulose and has had multiple bowel movements. Patient does still report pain at the incision site. And pain in the lower abdomen. Denies any nausea or vomiting. Afebrile. PHYSICAL EXAM: VITAL SIGNS: Reviewed. GENERAL: Well-developed in no acute distress. ABDOMEN: Soft. Nondistended. Midline incision erythema has decreased. The midline incision with seropurulent drainage noted. The area of firmness has decreased. Mild tenderness to palpation. Also tenderness palpation lower abdomen more on the right. NEUROLOGIC: Alert and oriented. Cranial nerves II through XII grossly intact. ASSESSMENT: 1. Postoperative seroma at incision site 2. Recent colostomy reversal and incisional and parastomal hernia repair 3. History of diabetes PLAN: -Continue antibiotics -No surgical intervention planned -Continue pain management -Encourage patient to increase activity level -Subcu heparin added for DVT prophylaxis Physician Manager Image note has been reviewed by physician. Signing provider agrees with the documented findings, assessment, and plan of care. Objective - Vital Signs Vital signs: Vital Signs Temp 97.8 F 06/23/24 06:55 Pulse 64 06/23/24 09:46 Resp 16 06/23/24 06:55 BP 138/78 06/23/24 06:55 Pulse Ox 91 L 06/23/24 06:55 FiO2 Intake & Output 06/22/24 06/23/24 06/23/24 18:59 06:59 18:59 Intake Total 2520 750 480 Output Total 1 Balance 2519 750 480 Intake: Intake, IV Titration 750 Amount Sodium Chloride 0.9% 1, 750 000 ml @ 75 mls/hr IV . [id number] [facility] Rx#:[id number] Oral 2520 480 Output: Stool 1 Other: Voiding Method Toilet Toilet # Voids 6 - Labs CBC & Chem 7: 06/21/24 04:08 06/22/24 07:47 Labs: Abnormal Lab Results - Last 24 Hours (Table) 06/22/24 06/22/24 06/23/24 Range/Units 17:05 20:19 07:02 POC Glucose (mg/dL) 175 H 178 H 123 H (70-110) mg/dL
[2024-06-23] MEDS ORDERED: DEXTROSE 50% SYRINGE 50 ML IVP PRN ×2 (15:27)
--- NOTE | 2024-06-23 15:32 | P.PN ---
Subjective Patient is admitted for abdominal wall cellulitis patient is presently on vancomycin patient had recent abdominal surgery. Patient redness improved but still is complaining of significant amount of pain is receiving Dilaudid and Toradol for pain. 06/18/2024 Patient is seen and evaluated in follow-up this morning reports she continues to have abdominal pain although reports is improving. Patient is maintained on IV antibiotics and cultures have been negative. Patient has been encouraged to increase activity as tolerated. Patient is afebrile and denies chest pain or shortness of breath. Patient tolerating diet and eating small frequent meals. Home medications will be reviewed and resumed as appropriate. Continue to follow along with general surgery 06/19/2024 Patient is seen at bedside no significant overnight events. Patient continues on IV antibiotics and cultures have been negative thus far. Patient is ambulating well. 06/20/2024 Patient seen at bedside and no significant overnight events. Patient reports her abdominal pain has improved since admission now about a 6 out of 10 compared to "100 out of 10". Patient reports her pain management with medication is working well. Patient continues to eat to drink and ambulate well. No further complaints. 06/21/2024 Patient is seen and evaluated in follow-up admitted under general surgery services maintained on IV antibiotics with infectious disease following. Germán ott is tolerating diet although not eating as much as patient reports to feeling full. Patient is passing gas but has not had a bowel movement yet. Continue current bowel regimen and also continue to encourage frequent walks down the [place]. Per nursing staff patient has been walking. 06/22/2024 Patient is seen in follow-up today with general surgery as attending. Currently tolerating diet although reports to some fullness and has not had a bowel movement. Abdominal x-ray showing constipation. Patient reports to passing gas and will continue on stool softeners and bowel regimen. To discuss further with general surgery regarding treatment plan. Patient is afebrile with no reports of chest pain or shortness of breath. Patient has been up and walking and encouraged the patient to walk at least once every hour. 06/23/2024 Patient seen at bedside no significant overnight events. Patient reports she continues to pass gas. Patient reports she has some drainage from her wounds wh ich have required bandaging. Patient continues to remain afebrile and denies any chest pain or shortness of breath. Patient has been mobile walking around the room at least once every hour. Review of systems: Constitutional: No reports of fatigue, fever, or chills Cardiovascular: No reports of chest pain or palpitations Respiratory: No reports of shortness of breath or cough GI: No reports of nausea, vomiting, reports no bowel movement today, reports continued abdominal pain with some bloating : No reports of dysuria or retention Neurovascular: No reports of weakness or numbness PHYSICAL EXAMINATION: GENERAL: The patient is alert and oriented x3, not in any acute distress. Well developed, well nourished. HEENT: Pupils are round and equally reacting to light. EOMI. No scleral icterus. No conjunctival pallor. Normocephalic, atraumatic. No pharyngeal erythema. No thyromegaly. CARDIOVASCULAR: S1 and S2 present. No murmurs, rubs, or gallops. PULMONARY: Chest is clear to auscultation, no wheezing or crackles. ABDOMEN: Soft, tender on palpation, mildly distended, normoactive bowel sounds. No palpable organomegaly. MUSCULOSKELETAL: No joint swelling or deformity. EXTREMITIES: No cyanosis, clubbing, or pedal edema. NEUROLOGICAL: Gross neurological examination did not reveal any focal deficits. SKIN: Postsurgical scar appreciated in the central abdomen, discharge with a y ellow hue noted in the superior part of the wound today on examination. Assessment and plan -Abdominal wall cellulitis, continued on vancomycin. Redness improved. If there is a deeper infection patient will need gram-negative and anaerobic coverage as well. Patient is status post ileostomy and reversal of ileostomy recently. 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 Patient has an IVC filter -Hyperlipidemia -Hypertension -GI prophylaxis -DVT prophylaxis: As mentioned above -Full code Plan: Patient is continued on IV antibiotics and will for now with infectious disease following. Cultures thus far remain negative Per primary will keep the patient through the weekend on antibiotics and we will consider discharge at the beginning of next week Home medications reviewed and resumed as appropriate Encouraged increase activity as tolerated with frequent walking X-ray of the abdomen yesterday showing moderate amount of stool with constipation, no obstruction noted, continue bowel regimen We will continue to follow with general surgery. Thank you kindly for this consultation. Objective - Vital Signs Vital signs: Vital Signs Temp 97.9 F 06/23/24 12:44 Pulse 92 06/23/24 12:44 Resp 15 06/23/24 12:44 BP 153/97 06/23/24 12:44 Pulse Ox 93 L 06/23/24 12:44 FiO2 Intake & Output 06/22/24 06/23/24 06/23/24 18:59 06:59 18:59 Intake Total 2520 750 960 Output Total 1 Balance 2519 750 960 Intake: Intake, IV Titration 750 Amount Sodium Chloride 0.9% 1, 750 000 ml @ 75 mls/hr IV . [id number] REPLACED BY [facility] Rx#:[id number] Oral 2520 960 Output: Stool 1 Other: Voiding Method Toilet Toilet # Voids 6 - Labs CBC & Chem 7: 06/21/24 04:08 06/22/24 07:47 Labs: Abnormal Lab Results - Last 24 Hours (Table) 06/22/24 06/22/24 06/23/24 Range/Units 17:05 20:19 07:02 POC Glucose (mg/dL) 175 H 178 H 123 H (70-110) mg/dL 06/23/24 Range/Units 12:37 POC Glucose (mg/dL) 163 H (70-110) mg/dL
[2024-06-23 17:02] LABS: Glucose,Whole Blood 175 mg/dL (70-110)
[2024-06-23] MEDS: INSULIN ASPART (NovoLOG) 100 UNIT/ML VIAL SQ SCH (17:04)
[2024-06-23 20:13] LABS: Glucose,Whole Blood 246 mg/dL (70-110)
[2024-06-24 06:03] LABS: African American GFR (CKD) >90 (>60 ml/min/1.73 sqM); Non-African American GFR(CKD) >90 (>60 ml/min/1.73 sqM)
[2024-06-24 07:33] LABS: Glucose,Whole Blood 143 mg/dL (70-110)
[2024-06-24 09:44] LABS: Basophils # (A) 0.04 X 10*3/uL (0.00-0.10); Basophils % (A) 0.9 %; Eosinophils # (A) 0.17 X 10*3/uL (0.04-0.35); HCT 32.7 % (37.2-46.3); HGB 10.7 g/dL (12.0-15.0); Lymphocytes # (A) 0.82 X 10*3/uL (0.90-5.00); Lymphocytes % (A) 19.3 %; MCH 29.8 pg (27.0-32.0); MCHC 32.7 g/dL (32.0-37.0); MCV 91.1 FL (80.0-97.0); Mean Platelet Volume 11.2 FL (9.5-12.2); Monocytes # (A) 0.33 X 10*3/uL (0.20-1.00); Monocytes % (A) 7.8 %; NRBC Per 100 WBC 0 X 10*3/uL (0.00-0.01); Neutrophils # (A) 2.85 X 10*3/uL (1.80-7.70); Neutrophils % (A) 67.1 %; Platelet Count 138 X 10*3/uL (140-440); RBC 3.59 X 10*6/uL (4.10-5.20); RDW 13.3 % (11.5-14.5); WBC 4.25 X 10*3/uL (4.50-10.00)
[2024-06-24 12:05] LABS: Glucose,Whole Blood 126 mg/dL (70-110)
--- NOTE | 2024-06-24 12:37 | P.PN ---
Subjective Progress Note Date: 06/24/24 CHIEF COMPLAINT: Seroma HISTORY OF PRESENT ILLNESS: Patient continues to have a serous drainage from the incision site. Her pain is improving. She has been taking showers daily. She has been ambulating. Afebrile. WBC 4.25 Hgb 10.7 PHYSICAL EXAM: VITAL SIGNS: Reviewed. GENERAL: Well-developed in no acute distress. ABDOMEN: Soft. Nondistended. Midline incision erythema has decreased. The mi dline incision with serous drainage noted. The area of firmness has decreased. Mild tenderness to palpation. NEUROLOGIC: Alert and oriented. Cranial nerves II through XII grossly intact. ASSESSMENT: 1. Postoperative seroma at incision site 2. Recent colostomy reversal and incisional and parastomal hernia repair 3. History of diabetes PLAN: -Anticipate discharge possibly tomorrow -Continue antibiotics -No surgical intervention planned -Continue pain management -Encourage patient to increase activity level -Subcu heparin added for DVT prophylaxis Physician Pickling Grader note has been reviewed by physician. Signing provider agrees with the documented findings, assessment, and plan of care. Objective - Vital Signs Vital signs: Vital Signs Temp 97.8 F 06/24/24 07:30 Pulse 72 06/24/24 08:58 Resp 16 06/24/24 07:30 BP 169/93 06/24/24 07:30 Pulse Ox 92 L 06/24/24 07:30 FiO2 Intake & Output 06/23/24 06/24/24 06/24/24 18:59 06:59 18:59 Intake Total 2500 1515 540 Balance 2500 1515 540 Intake: Intake, IV Titration 925 Amount Sodium Chloride 0.9% 1, 675 000 ml @ 75 mls/hr IV . [id number] [facility] Rx#:[id number] Vancomycin 1,250 mg In 250 Sodium Chloride 0.9% 250 ml @ 125 mls/hr IVPB Q12H [facility] Rx#:[id number] Oral 2500 590 540 Other: Voiding Method Toilet # Voids 5 2 # Bowel Movements 1 - Labs CBC & Chem 7: 06/24/24 05:10 06/24/24 05:10 Labs: Abnormal Lab Results - Last 24 Hours (Table) 06/23/24 06/23/24 06/23/24 Range/Units 12:37 17:01 20:11 WBC (4.50-10.00) X 10*3/uL RBC (4.10-5.20) X 10*6/uL Hgb (12.0-15.0) g/dL Hct (37.2-46.3) % Plt Count (140-440) X 10*3/uL Lymphocytes # (0.90-5.00) X 10*3/uL POC Glucose (mg/dL) 163 H 175 H 246 H (70-110) mg/dL Hemoglobin A1c (<=6.0) % 06/24/24 06/24/24 06/24/24 Range/Units 05:10 05:10 07:31 WBC 4.25 L (4.50-10.00) X 10*3/uL RBC 3.59 L (4.10-5.20) X 10*6/uL Hgb 10.7 L (12.0-15.0) g/dL Hct 32.7 L (37.2-46.3) % Plt Count 138 L (140-440) X 10*3/uL Lymphocytes # 0.82 L (0.90-5.00) X 10*3/uL POC Glucose (mg/dL) 143 H (70-110) mg/dL Hemoglobin A1c 8.0 H (<=6.0) % 06/24/24 Range/Units 12:04 WBC (4.50-10.00) X 10*3/uL RBC (4.10-5.20) X 10*6/uL Hgb (12.0-15.0) g/dL Hct (37.2-46.3) % Plt Count (140-440) X 10*3/uL Lymphocytes # (0.90-5.00) X 10*3/uL POC Glucose (mg/dL) 126 H (70-110) mg/dL Hemoglobin A1c (<=6.0) %
[2024-06-24 17:02] LABS: Glucose,Whole Blood 177 mg/dL (70-110)
[2024-06-24 20:13] LABS: Glucose,Whole Blood 212 mg/dL (70-110)
--- NOTE | 2024-06-25 06:27 | P.PN ---
Subjective Progress Note Date: 06/24/24 Patient is admitted for abdominal wall cellulitis patient is presently on vancomycin patient had recent abdominal surgery. Patient redness improved but still is complaining of significant amount of pain is receiving Dilaudid and Toradol for pain. 06/18/2024 Patient is seen and evaluated in follow-up this morning reports she continues to have abdominal pain although reports is improving. Patient is maintained on IV antibiotics and cultures have been negative. Patient has been encouraged to increase activity as tolerated. Patient is afebrile and denies chest pain or shortness of breath. Patient tolerating diet and eating small frequent meals. Home medications will be reviewed and resumed as appropriate. Continue to follow along with general surgery 06/19/2024 Patient is seen at bedside no significant overnight events. Patient continues on IV antibiotics and cultures have been negative thus far. Patient is ambulating well. 06/20/2024 Patient seen at bedside and no significant overnight events. Patient reports her abdominal pain has improved since admission now about a 6 out of 10 compared to "100 out of 10". Patient reports her pain management with medication is working well. Patient continues to eat to drink and ambulate well. No further complaints. 06/21/2024 Patient is seen and evaluated in follow-up admitted under general surgery services maintained on IV antibiotics with infectious disease following. Patient is tolerating diet although not eating as much as patient reports to feeling full. Patient is passing gas but has not had a bowel movement yet. Con tinue current bowel regimen and also continue to encourage frequent walks down the [place]. Per nursing staff patient has been walking. 06/22/2024 Patient is seen in follow-up today with general surgery as attending. Currently tolerating diet although reports to some fullness and has not had a bowel movement. Abdominal x-ray showing constipation. Patient reports to passing gas and will continue on stool softeners and bowel regimen. To discuss further with general surgery regarding treatment plan. Patient is afebrile with no reports of chest pain or shortness of breath. Patient has been up and walking and encouraged the patient to walk at least once every hour. 06/23/2024 Patient seen at bedside no significant overnight events. Patient reports she continues to pass gas. Patient reports she has some drainage from her wounds which have required bandaging. Patient continues to remain afebrile and denies any chest pain or shortness of breath. Patient has been mobile walking around the room at least once every hour. 06/24/2024 Patient is seen in follow-up today continues to have drainage noted of the abdominal wound surgical site and patient reports the drainage is a slight greenish. Cultures thus far remain negative and patient is maintained on vancomycin and will continue. Patient was given lactulose and having bowel movements recommend to continue with bowel regimen as needed and scheduled. Review of systems: Constitutional: No reports of fatigue, fever, or chills Cardiovascular: No reports of chest pain or palpitations Respiratory: No reports of shortness of breath or cough GI: No reports of nausea, vomiting, reports having bowel movement today, reports continued abdominal pain with some bloating : No reports of dysuria or retention Neurovascular: No reports of weakness or numbness PHYSICAL EXAMINATION: GENERAL: The patient is alert and oriented x3, not in any acute distress. Well developed, well nourished. HEENT: Pupils are round and equally reacting to light. EOMI. No scleral icterus. No conjunctival pallor. Normocephalic, atraumatic. No pharyngeal erythema. No thyromegaly. CARDIOVASCULAR: S1 and S2 present. No murmurs, rubs, or gallops. PULMONARY: Chest is clear to auscultation, no wheezing or crackles. ABDOMEN: Soft, tender on palpation, mildly distended, normoactive bowel sounds. No palpable organomegaly. MUSCULOSKELETAL: No joint swelling or deformity. EXTREMITIES: No cyanosis, clubbing, or pedal edema. NEUROLOGICAL: Gross neurological examination did not reveal any focal deficits. SKIN: Postsurgical scar appreciated in the central abdomen, discharge with a yellow hue noted in the superior part of the wound today on examination. Assessment and plan -Abdominal wall cellulitis, continued on vancomycin. Redness improved. If there is a deeper infection patient will need gram-negative and anaerobic coverage as well. Patient is status post ileostomy and reversal of ileostomy recently. 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 Patient has an IVC filter -Hyperlipidemia -Hypertension -GI prophylaxis -DVT prophylaxis: As mentioned above -Full code Plan: Patient is continued on IV antibiotics and will for now and will continue. Cultures thus far remain negative Per primary will keep the patient through the weekend on antibiotics and we will consider discharge at the beginning of next week. Patient is admitted to general surgery services Home medications reviewed and resumed as appropriate Encouraged increase activity as tolerated with frequent walking Patient was given lactulose along with continued bowel regimen and patient is now having bowel movements. Continue scheduled as well as as needed bowel regimen for now We will continue to follow with general surgery. Thank you kindly for this consultation. The impression and plan of care has been dictated by Jennifer Thakkar, Nurse Practitioner as directed. Dr. Leydi MD I have performed a history and examination and MDM of this patient, discussed the same with the dictator, and agree with the dictator's assessment and plan as written ,documented as a scribe. Based on total visit time, I have performed more than 50% of the visit. Objective - Vital Signs Vital signs: Vital Signs Temp 97.8 F 06/24/24 07:30 Pulse 72 06/24/24 08:58 Resp 16 06/24/24 07:30 BP 169/93 06/24/24 07:30 Pulse Ox 92 L 06/24/24 07:30 FiO2 Intake & Output 06/23/24 06/24/24 06/24/24 18:59 06:59 18:59 Intake Total 2500 1515 540 Balance 2500 1515 540 Intake: Intake, IV Titration 925 Amount Sodium Chloride 0.9% 1, 675 000 ml @ 75 mls/hr IV . [id number] [facility] Rx#:[id number] Vancomycin 1,250 mg In 250 Sodium Chloride 0.9% 250 ml @ 125 mls/hr IVPB Q12H [facility] Rx#:[id number] Oral 2500 590 540 Other: Voiding Method Toilet # Voids 5 2 # Bowel Movements 1 - Labs CBC & Chem 7: 06/24/24 05:10 06/24/24 05:10 Labs: Abnormal Lab Results - Last 24 Hours (Table) 06/23/24 06/23/24 06/23/24 Range/Units 12:37 17:01 20:11 WBC (4.50-10.00) X 10*3/uL RBC (4.10-5.20) X 10*6/uL Hgb (12.0-15.0) g/dL Hct (37.2-46.3) % Plt Count (140-440) X 10*3/uL Lymphocytes # (0.90-5.00) X 10*3/uL POC Glucose (mg/dL) 163 H 175 H 246 H (70-110) mg/dL Hemoglobin A1c (<=6.0) % 06/24/24 06/24/24 06/24/24 Range/Units 05:10 05:10 07:31 WBC 4.25 L (4.50-10.00) X 10*3/uL RBC 3.59 L (4.10-5.20) X 10*6/uL Hgb 10.7 L (12.0-15.0) g/dL Hct 32.7 L (37.2-46.3) % Plt Count 138 L (140-440) X 10*3/uL Lymphocytes # 0.82 L (0.90-5.00) X 10*3/uL POC Glucose (mg/dL) 143 H (70-110) mg/dL Hemoglobin A1c 8.0 H (<=6.0) %
[2024-06-25 07:03] LABS: Glucose,Whole Blood 141 mg/dL (70-110)
[2024-06-25 07:35] VITALS: BP 164/94; PULSE 67; RESP 16; TEMP 97.6
[2024-06-25 08:35] LABS: African American GFR (CKD) >90 (>60 ml/min/1.73 sqM); Non-African American GFR(CKD) >90 (>60 ml/min/1.73 sqM)
[2024-06-25] MEDS: VANCOMYCIN TROUGH DUE 1 EACH MISC MISCELLANE ONE (09:06)
--- NOTE | 2024-06-25 11:54 | P.DS ---
Providers Date of admission: 06/15/24 19:09 Expected date of discharge: 06/25/24 Attending physician: Haroon Lewis Consults: 06/15/24 18:06 Consult Physician Urgent Consulting Provider: Danna Saeed Consult Reason/Comments: Medical management Do you want consulting provider notified?: Yes Primary care physician: Stated None Hospital Course: Discharge diagnosis 1. Postoperative seroma at incision site 2. Recent colostomy reversal and incisional and parastomal hernia repair 3. History of diabetes 4. Constipation improved Hospital course This is a 54-year-old female who has history of diverticulitis and is status post exploratory laparotomy with lysis of adhesions, reversal of colostomy, repair of incisional hernia greater than 10 cm, repair of parastomal hernia and a right oophorectomy on 05/26/2024 . Patient came into the hospital due to increased redness and warmth at incision site. She was found to have a surgical site seroma. There has been drainage from the incision site that is serosanguineous in color. Patient has been on antibiotics. The erythema has improved. Her pain is controlled. She is afebrile. She has been up and ambulating. She is having bowel movements. She is stable for discharge with oral antibiotics. Please refer to chart for any further details. Physician Journeyman Patternmaker note has been reviewed by physician. Signing provider agrees with the documented findings, assessment, and plan of care. Patient Condition at Discharge: Stable Plan - Discharge Summary Discharge Rx Participant: Yes New Discharge Prescriptions: New HYDROcodone/APAP 10-325MG [[place] 10-325] 1 tab PO Q8HR PRN 3 Days #9 tab PRN Reason: Pain Levofloxacin [Levaquin] 500 mg PO DAILY 10 Days #10 tab Continue traZODone HCL 150 mg PO HS busPIRone HCL 15 mg PO TID Gabapentin 800 mg PO TID 3 Days #9 tab Apixaban [Eliquis] 5 mg PO BID Dapagliflozin Propanediol [Farxiga] 5 mg PO DAILY Famotidine 40 mg PO DAILY Ezetimibe [Zetia] 10 mg PO DAILY HYDROcodone/APAP 10-325MG [[place] 10-325] 1 tab PO Q8HR PRN 3 Days #9 tab PRN Reason: Pain Ipratropium-Albuterol Nebulize [Duoneb 0.5 mg-3 mg/3 ml Soln] 3 ml INHALATION RT-QID hydroCHLOROthiazide [Hydrodiuril] 12.5 mg PO DAILY Insulin Glargine,Hum.rec.anlog [Lantus Solostar Pen] 42 unit SQ DAILY Atorvastatin [Lipitor] 80 mg PO DAILY lisinopriL 30 mg PO DAILY cloNIDine HCL 0.05 mg PO BID Venlafaxine HCl [Effexor XR] 150 mg PO DAILY Discharge Medication List Insulin Glargine,Hum.rec.anlog [Lantus Solostar Pen] 42 unit SQ DAILY 08/04/21 [History] hydroCHLOROthiazide [Hydrodiuril] 12.5 mg PO DAILY 08/04/21 [History] busPIRone HCL 15 mg PO TID 03/14/23 [History] traZODone HCL 150 mg PO HS 03/14/23 [History] Gabapentin 800 mg PO TID 3 Days #9 tab 07/12/23 [Rx] Atorvastatin [Lipitor] 80 mg PO DAILY 08/07/23 [History] Apixaban [Eliquis] 5 mg PO BID 05/03/24 [History] Dapagliflozin Propanediol [Farxiga] 5 mg PO DAILY 05/03/24 [History] Ezetimibe [Zetia] 10 mg PO DAILY 05/03/24 [History] Famotidine 40 mg PO DAILY 05/03/24 [History] Venlafaxine HCl [Effexor XR] 150 mg PO DAILY 05/03/24 [History] cloNIDine HCL 0.05 mg PO BID 05/03/24 [History] lisinopriL 30 mg PO DAILY 05/03/24 [History] HYDROcodone/APAP 10-325MG [[place] 10-325] 1 tab PO Q8HR PRN 3 Days #9 tab 06/03/24 [Rx] Ipratropium-Albuterol Nebulize [Duoneb 0.5 mg-3 mg/3 ml Soln] 3 ml INHALATION RT-QID 06/15/24 [History] HYDROcodone/APAP 10-325MG [[place] 10-325] 1 tab PO Q8HR PRN 3 Days #9 tab 06/25/24 [Rx] Levofloxacin [Levaquin] 500 mg PO DAILY 10 Days #10 tab 06/25/24 [Rx] Follow up Appointment(s)/Referral(s): None,Stated [Primary Care Provider] - 1-2 days Haroon Lewis MD [STAFF PHYSICIAN] - 07/01/24 3:00 pm Patient Instructions/Handouts: Abscess (GEN) Discharge Disposition: HOME WITH HOME HEALTH SERVICES
--- NOTE | 2024-06-25 16:22 | P.PN ---
Subjective Patient is admitted for abdominal wall cellulitis patient is presently on vancomycin patient had recent abdominal surgery. Patient redness improved but still is complaining of significant amount of pain is receiving Dilaudid and Toradol for pain. 06/18/2024 Patient is seen and evaluated in follow-up this morning reports she continues to have abdominal pain although reports is improving. Patient is maintained on IV antibiotics and cultures have been negative. Patient has been encouraged to increase activity as tolerated. Patient is afebrile and denies chest pain or shortness of breath. Patient tolerating diet and eating small frequent meals. Home medications will be reviewed and resumed as appropriate. Continue to follow along with general surgery 06/19/2024 Patient is seen at bedside no significant overnight events. Patient continues on IV antibiotics and cultures have been negative thus far. Patient is ambulating well. 06/20/2024 Patient seen at bedside and no significant overnight events. Patient reports her abdominal pain has improved since admission now about a 6 out of 10 compared to "100 out of 10". Patient reports her pain management with medication is working well. Patient continues to eat to drink and ambulate well. No further complaints. 06/21/2024 Patient is seen and evaluated in follow-up admitted under general surgery services maintained on IV antibiotics with infectious disease following. P atient is tolerating diet although not eating as much as patient reports to feeling full. Patient is passing gas but has not had a bowel movement yet. Continue current bowel regimen and also continue to encourage frequent walks down the [place]. Per nursing staff patient has been walking. 06/22/2024 Patient is seen in follow-up today with general surgery as attending. Currently tolerating diet although reports to some fullness and has not had a bowel movement. Abdominal x-ray showing constipation. Patient reports to passing gas and will continue on stool softeners and bowel regimen. To discuss further with general surgery regarding treatment plan. Patient is afebrile with no reports o f chest pain or shortness of breath. Patient has been up and walking and encouraged the patient to walk at least once every hour. 06/23/2024 Patient seen at bedside no significant overnight events. Patient reports she continues to pass gas. Patient reports she has some drainage from her wounds which have required bandaging. Patient continues to remain afebrile and denies any chest pain or shortness of breath. Patient has been mobile walking around the room at least once every hour. 06/24/2024 Patient is seen in follow-up today continues to have drainage noted of the abdominal wound surgical site and patient reports the drainage is a slight greenish. Cultures thus far remain negative and patient is maintained on vancomycin and will continue. Patient was given lactulose and having bowel movements recommend to continue with bowel regimen as needed and scheduled. 06/25/2024 Patient seen at bedside no significant overnight events. Patient seen sitting up in bed on the phone. Patient reports her abdominal pain is feeling somewhat better. Patient has no other complaints. Review of systems: Constitutional: No reports of fatigue, fever, or chills Cardiovascular: No reports of chest pain or palpitations Respiratory: No reports of shortness of breath or cough GI: No reports of nausea, vomiting, reports having bowel movement today, reports continued abdominal pain with some bloating : No reports of dysuria or retention Neurovascular: No reports of weakness or numbness PHYSICAL EXAMINATION: GENERAL: The patient is alert and oriented x3, not in any acute distress. Well developed, well nourished. HEENT: Pupils are round and equally reacting to light. EOMI. No scleral icterus. No conjunctival pallor. Normocephalic, atraumatic. No pharyngeal erythema. No thyromegaly. CARDIOVASCULAR: S1 and S2 present. No murmurs, rubs, or gallops. PULMONARY: Chest is clear to auscultation, no wheezing or crackles. ABDOMEN: Soft, tender on palpation, mildly distended, normoactive bowel sounds. No palpable organomegaly. MUSCULOSKELETAL: No joint swelling or deformity. EXTREMITIES: No cyanosis, clubbing, or pedal edema. NEUROLOGICAL: Gross neurological examination did not reveal any focal deficits. SKIN: Postsurgical scar appreciated in the central abdomen, discharge with a yellow hue noted in the superior part of the wound today on examination. Assessment and plan -Abdominal wall cellulitis, continued on vancomycin. Redness improved. If there is a deeper infection patient will need gram-negative and anaerobic coverage as well. Patient is status post ileostomy and reversal of ileostomy recently. 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 Patient has an IVC filter -Hyperlipidemia -Hypertension -GI prophylaxis -DVT prophylaxis: As mentioned above -Full code Plan: Patient is continued was on IV antibiotics and will be discharged on p.o. Levaquin Patient is admitted to general surgery services Home medications reviewed and resumed as appropriate Encouraged increase activity as tolerated with frequent walking Patient was given lactulose along with continued bowel regimen and patient is no w having bowel movements. Continue scheduled as well as as needed bowel regimen for now Patient has been medically optimized, general surgery has placed the discharge order. Objective - Vital Signs Vital signs: Vital Signs Temp 97.6 F 06/25/24 06:56 Pulse 67 06/25/24 06:56 Resp 16 06/25/24 06:56 BP 164/94 06/25/24 06:56 Pulse Ox 93 L 06/25/24 06:56 FiO2 Intake & Output 06/24/24 06/25/24 06/25/24 18:59 06:59 18:59 Intake Total 1320 1516 480 Balance 1320 1516 480 Intake: Intake, IV Titration 925 Amount Sodium Chloride 0.9% 1, 675 000 ml @ 75 mls/hr IV . [id number] [facility] Rx#:[id number] Vancomycin 1,250 mg In 250 Sodium Chloride 0.9% 250 ml @ 125 mls/hr IVPB Q12H [facility] Rx#:[id number] Oral 1320 591 480 Other: Voiding Method Toilet - Labs CBC & Chem 7: 06/24/24 05:10 06/25/24 07:48 Labs: Abnormal Lab Results - Last 24 Hours (Table) 06/24/24 06/24/24 06/24/24 Range/Units 05:10 05:10 12:04 WBC 4.25 L (4.50-10.00) X 10*3/uL RBC 3.59 L (4.10-5.20) X 10*6/uL Hgb 10.7 L (12.0-15.0) g/dL Hct 32.7 L (37.2-46.3) % Plt Count 138 L (140-440) X 10*3/uL Lymphocytes # 0.82 L (0.90-5.00) X 10*3/uL POC Glucose (mg/dL) 126 H (70-110) mg/dL Hemoglobin A1c 8.0 H (<=6.0) % 06/24/24 06/24/24 06/25/24 Range/Units 17:01 20:11 07:02 WBC (4.50-10.00) X 10*3/uL RBC (4.10-5.20) X 10*6/uL Hgb (12.0-15.0) g/dL Hct (37.2-46.3) % Plt Count (140-440) X 10*3/uL Lymphocytes # (0.90-5.00) X 10*3/uL POC Glucose (mg/dL) 177 H 212 H 141 H (70-110) mg/dL Hemoglobin A1c (<=6.0) %
== END 2024-06-25 11:45 | disposition home health service (06) | DRG 920 ==
LOC: EC 13:30 → 5NMEDONC 19:09
PROVIDERS: ADMIT Surgery; ATTEND Surgery
DX: L76.34 Postprocedural seroma of skin and subcutaneous tissue following other procedure (principal); E87.20 Acidosis, unspecified; L02.211 Cutaneous abscess of abdominal wall; L03.311 Cellulitis of abdominal wall; Y83.8 Other surgical procedures as the cause of abnormal reaction of the patient, or of later complication, without mention of misadventure at the time of the procedure; E11.9 Type 2 diabetes mellitus without complications; E78.5 Hyperlipidemia, unspecified; F17.200 Nicotine dependence, unspecified, uncomplicated; F32.A Depression, unspecified; F43.10 Post-traumatic stress disorder, unspecified; I10 Essential (primary) hypertension; I69.320 Aphasia following cerebral infarction; J44.9 Chronic obstructive pulmonary disease, unspecified; K21.9 Gastro-esophageal reflux disease without esophagitis; K59.00 Constipation, unspecified; Z95.828 Presence of other vascular implants and grafts; Z79.01 Long term (current) use of anticoagulants; Z79.84 Long term (current) use of oral hypoglycemic drugs; Z79.899 Other long term (current) drug therapy; Z86.718 Personal history of other venous thrombosis and embolism; Z90.721 Acquired absence of ovaries, unilateral; Z28.21 Immunization not carried out because of patient refusal; Z86.14 Personal history of Methicillin resistant Staphylococcus aureus infection
CPT/HCPCS: 36415; 74019; 74177; 80048; 80053; 80202; 81003; 82565; 83036; 83605; 83690; 85025; 85652; 86140; 87070; 87075; 87205; 87324; 94640; 96365; 96366; 96367; 96375; 96376; 99285

== ENCOUNTER 2024-06-28 19:05 | Emergency (ER) | payer MEDICARE, OTHER ==
[2024-06-28 19:13] VITALS: TEMP 97.8
[2024-06-28] MEDS: MORPHINE SULFATE 4 MG/ML SYRINGE IV STA ×3 (19:52→23:29)
[2024-06-28] MEDS: SODIUM CHLORIDE 0.9% 500 ML 500 ML IV STA (19:54)
[2024-06-28 20:08] LABS: Basophils # (A) 0.1 k/uL (0-0.2); Basophils % (A) 1 %; Eosinophils # (A) 0.2 k/uL (0-0.7); Eosinophils % (A) 2 %; HCT 42.3 % (34.0-46.0); HGB 13.7 gm/dL (11.4-16.0); Hypochromasia Slight; Lymphocytes # (A) 2.7 k/uL (1.0-4.8); Lymphocytes % (A) 28 %; MCH 29.5 pg (25.0-35.0); MCHC 32.5 g/dL (31.0-37.0); MCV 90.8 fL (80.0-100.0); Mean Platelet Volume 7.9; Monocytes # (A) 0.4 k/uL (0-1.0); Monocytes % (A) 4 %; Neutrophils # (A) 6.1 k/uL (1.3-7.7); Neutrophils % (A) 62 %; Platelet Count 216 k/uL (150-450); RBC 4.66 m/uL (3.80-5.40); RDW 14.5 % (11.5-15.5); WBC 9.8 k/uL (3.8-10.6)
[2024-06-28 20:22] LABS: ALT 27 U/L (4-34); AST 26 U/L (14-36); African American GFR (CKD) >90 (>60 ml/min/1.73 sqM); Albumin 4.3 g/dL (3.5-5.0); Alkaline Phosphatase 178 U/L (38-126); Amylase 63 U/L (30-110); Anion Gap 7 mmol/L; Blood Urea Nitrogen 16 mg/dL (7-17); Calcium 9.5 mg/dL (8.4-10.2); Carbon Dioxide 20 mmol/L (22-30); Chloride 110 mmol/L (98-107); Glucose 217 mg/dL (74-99); Lipase 102 U/L (23-300); Non-African American GFR(CKD) >90 (>60 ml/min/1.73 sqM); Potassium 3.9 mmol/L (3.5-5.1); Sodium 137 mmol/L (137-145); Total Bilirubin 0.9 mg/dL (0.2-1.3)
--- NOTE | 2024-06-28 20:37 | XR ---
EXAMINATION TYPE: XR KUB DATE OF EXAM: 06/28/2024 8:09 PM COMPARISON: 07/08/2023 CLINICAL INDICATION: Female, 54 years old with history of abdominal pain; [facility] TECHNIQUE: One radiographic view of the abdomen was obtained. FINDINGS: The bowel gas pattern is nonspecific without dilated loops of small or large bowel. . Fecal material and gas are demonstrated throughout the colon and rectum. There is no evidence for organomegaly or pneumoperitoneum. The osseous structures are intact. No ab normal calcifications are present. IVC filter present. IMPRESSION: Gaseous dilation of colon, otherwise, Nonspecific bowel gas pattern without radiographic evidence for acute process. [facility], , 06/28/2024 8:35 PM
[2024-06-28 21:02] LABS: Appearance,Urine Clear (Clear); Bilirubin,Urine Negative (Negative); Blood,Urine Negative (Negative); Color,Urine Yellow; Glucose,Urine (UA) Trace (Negative); Hyaline Casts,Urine 1 /lpf (0-2); Ketones,Urine Negative (Negative); Leukocyte Esterase,Urine Trace (Negative); Mucus,Urine Few /hpf; Nitrite,Urine Negative (Negative); Protein,Urine Trace (Negative); RBC,Urine 3 /hpf (0-5); Specific Gravity,Urine 1.027 (1.001-1.035); Squamous Epithelial Cell,Urine 13 /hpf (0-4); WBC,Urine 10 /hpf (0-5)
[2024-06-28] MEDS ORDERED: IOPAMIDOL CONTRAST (ORAL USE) VIAL PO PRN (21:30)
[2024-06-28] MEDS: MORPHINE SULFATE 4 MG/ML SYRINGE IVP STA (21:32)
[2024-06-29] MEDS: ONDANSETRON 4 MG/2 ML VIAL IVP STA (00:23)
--- NOTE | 2024-06-29 01:06 | ED ---
General Adult HPI - General Chief complaint: Abdominal Pain Stated complaint: Stroke Time Seen by Provider: 06/28/24 19:16 Source: patient Mode of arrival: ambulatory Limitations: no limitations - Related Data Home Medications Medication Instructions Recorded Confirmed Insulin Glargine,Hum.rec.anlog 42 unit SQ DAILY 08/04/21 06/28/24 [Lantus Solostar Pen] hydroCHLOROthiazide [Hydrodiuril] 12.5 mg PO DAILY 08/04/21 06/28/24 busPIRone HCL 15 mg PO TID 03/14/23 06/28/24 traZODone HCL 150 mg PO HS 03/14/23 06/28/24 Atorvastatin [Lipitor] 80 mg PO DAILY 08/07/23 06/28/24 Apixaban [Eliquis] 5 mg PO BID 05/03/24 06/28/24 Dapagliflozin Propanediol [Farxiga] 5 mg PO DAILY 05/03/24 06/28/24 Ezetimibe [Zetia] 10 mg PO DAILY 05/03/24 06/28/24 Famotidine 40 mg PO DAILY 05/03/24 06/28/24 Venlafaxine HCl [Effexor XR] 150 mg PO DAILY 05/03/24 06/28/24 cloNIDine HCL 0.05 mg PO BID 05/03/24 06/28/24 lisinopriL 30 mg PO DAILY 05/03/24 06/28/24 Ipratropium-Albuterol Nebulize 3 ml INHALATION RT-QID 06/15/24 06/28/24 [Duoneb 0.5 mg-3 mg/3 ml Soln] Previous Rx's Medication Instructions Recorded Gabapentin 800 mg PO TID 3 Days #9 tab 07/12/23 HYDROcodone/APAP 10-325MG [[place] 1 tab PO Q8HR PRN 3 Days #9 tab 06/25/24 10-325] Levofloxacin [Levaquin] 500 mg PO DAILY 10 Days #10 tab 06/25/24 Allergies Allergy/AdvReac Type Severity Reaction Status Date / Time No Known Allergies Allergy Verified 06/28/24 20:21 Review of Systems ROS Statement: Those systems with pertinent positive or pertinent negative responses have been documented in the HPI. ROS Other: All systems not noted in ROS Statement are negative. Past Medical History Past Medical History: COPD, CVA/TIA, Diabetes Mellitus, Deep Vein Thrombosis (DVT), GERD/Reflux, Hyperlipidemia, Hypertension Additional Past Medical History / Comment(s): CVA 2019- expressive aphasia; 2 DVT's; diverticulitis; hernia History of Any Multi-Drug Resistant Organisms: MRSA Date of last positivie culture/infection: 09/03/23 MDRO Source:: Groin Past Surgical History: Bowel Resection Additional Past Surgical History / Comment(s): IVC FILTER 2013. ileostomy. wound vac. ileostomy reversal with hernia repair, with ovary removal-Apr 2024. Past Anesthesia/Blood Transfusion Reactions: No Reported Reaction Past Psychological History: Depression, PTSD Smoking Status: Current every day smoker Past Alcohol Use History: None Reported Past Drug Use History: None Reported General Exam Limitations: no limitations Course Vital Signs 06/28/24 06/29/24 19:07 01:23 EDT Temperature 97.8 F Pulse Rate 87 69 Respiratory 23 18 Rate Blood Pressure 165/101 126/81 O2 Sat by Pulse 98 96 Oximetry Medical Decision Making - Medical Decision Making Was patient admitted / discharged? Hospital course, mention meds given and route, prescriptions, significant lab abnormalities, going to OR and other pertinent info. @ -[hospital course] Undiagnosed new problem with uncertain prognosis? @ -[No] Drug Therapy requiring intensive monitoring for toxicity (Heparin, Nitro, Insulin, Cardizem)? @ -[No] Were any procedures done? @ -[No] Diagnosis/symptom? @ -[default] Acute, or Chronic, or Acute on Chronic? @ -[default] Uncomplicated (without systemic symptoms) or Complicated (systemic symptoms)? @ -[default] Side effects of treatment? @ -[No] Exacerbation, Progression, or Severe Exacerbation? @ -[No] Poses a threat to life or bodily function? How? (Chest pain, [place], [place], pneumonia, PE, COPD, DKA, ARF, appy, cholecystitis, CVA, Diverticulitis, Homicidal, Suicidal, threat to staff... and all critical care pts) @ -[No] - Lab Data Result diagrams: 06/28/24 19:25 06/28/24 19:25 Lab Results 06/28/24 06/28/24 06/28/24 Range/Units 19:25 19:25 19:25 WBC 9.8 (3.8-10.6) k/uL RBC 4.66 (3.80-5.40) m/uL Hgb 13.7 (11.4-16.0) gm/dL Hct 42.3 (34.0-46.0) % MCV 90.8 (80.0-100.0) fL MCH 29.5 (25.0-35.0) pg MCHC 32.5 (31.0-37.0) g/dL RDW 14.5 (11.5-15.5) % Plt Count 216 (150-450) k/uL MPV 7.9 Neutrophils % 62 % Lymphocytes % 28 % Monocytes % 4 % Eosinophils % 2 % Basophils % 1 % Neutrophils # 6.1 (1.3-7.7) k/uL Lymphocytes # 2.7 (1.0-4.8) k/uL Monocytes # 0.4 (0-1.0) k/uL Eosinophils # 0.2 (0-0.7) k/uL Basophils # 0.1 (0-0.2) k/uL Hypochromasia Slight Sodium 137 (137-145) mmol/L Potassium 3.9 (3.5-5.1) mmol/L Chloride 110 H (98-107) mmol/L Carbon Dioxide 20 L (22-30) mmol/L Anion Gap 7 mmol/L BUN 16 (7-17) mg/dL Creatinine 0.63 (0.52-1.04) mg/dL Est GFR (CKD-EPI)AfAm >90 (>60 ml/min/1.73 sqM) Est GFR (CKD-EPI)NonAf >90 (>60 ml/min/1.73 sqM) Glucose 217 H (74-99) mg/dL Plasma Lactic Acid Kyrie 1.1 (0.7-2.0) mmol/L Calcium 9.5 (8.4-10.2) mg/dL Total Bilirubin 0.9 (0.2-1.3) mg/dL AST 26 (14-36) U/L ALT 27 (4-34) U/L Alkaline Phosphatase 178 H (38-126) U/L Troponin I (0.000-0.034) ng/mL Total Protein 8.0 (6.3-8.2) g/dL Albumin 4.3 (3.5-5.0) g/dL Amylase 63 (30-110) U/L Lipase 102 (23-300) U/L Urine Color Urine Appearance (Clear) Urine pH (5.0-8.0) Ur Specific [place] (1.001-1.035) Urine Protein (Negative) Urine Glucose (UA) (Negative) Urine Ketones (Negative) Urine Blood (Negative) Urine Nitrite (Negative) Urine Bilirubin (Negative) Urine Urobilinogen (<2.0) mg/dL Ur Leukocyte Esterase (Negative) Urine RBC (0-5) /hpf Urine WBC (0-5) /hpf Ur Squamous Epith Cells (0-4) /hpf Hyaline Casts (0-2) /lpf Urine Mucus (None) /hpf 06/28/24 06/28/24 Range/Units 19:25 20:41 WBC (3.8-10.6) k/uL RBC (3.80-5.40) m/uL Hgb (11.4-16.0) gm/dL Hct (34.0-46.0) % MCV (80.0-100.0) fL MCH (25.0-35.0) pg MCHC (31.0-37.0) g/dL RDW (11.5-15.5) % Plt Count (150-450) k/uL MPV Neutrophils % % Lymphocytes % % Monocytes % % Eosinophils % % Basophils % % Neutrophils # (1.3-7.7) k/uL Lymphocytes # (1.0-4.8) k/uL Monocytes # (0-1.0) k/uL Eosinophils # (0-0.7) k/uL Basophils # (0-0.2) k/uL Hypochromasia Sodium (137-145) mmol/L Potassium (3.5-5.1) mmol/L Chloride (98-107) mmol/L Carbon Dioxide (22-30) mmol/L Anion Gap mmol/L BUN (7-17) mg/dL Creatinine (0.52-1.04) mg/dL Est GFR (CKD-EPI)AfAm (>60 ml/min/1.73 sqM) Est GFR (CKD-EPI)NonAf (>60 ml/min/1.73 sqM) Glucose (74-99) mg/dL Plasma Lactic Acid Kyrie (0.7-2.0) mmol/L Calcium (8.4-10.2) mg/dL Total Bilirubin (0.2-1.3) mg/dL AST (14-36) U/L ALT (4-34) U/L Alkaline Phosphatase (38-126) U/L Troponin I <0.012 (0.000-0.034) ng/mL Total Protein (6.3-8.2) g/dL Albumin (3.5-5.0) g/dL Amylase (30-110) U/L Lipase (23-300) U/L Urine Color Yellow Urine Appearance Clear (Clear) Urine pH 6.0 (5.0-8.0) Ur Specific [place] 1.027 (1.001-1.035) Urine Protein Trace H (Negative) Urine Glucose (UA) Trace H (Negative) Urine Ketones Negative (Negative) Urine Blood Negative (Negative) Urine Nitrite Negative (Negative) Urine Bilirubin Negative (Negative) Urine Urobilinogen 2.0 (<2.0) mg/dL Ur Leukocyte Esterase Trace H (Negative) Urine RBC 3 (0-5) /hpf Urine WBC 10 H (0-5) /hpf Ur Squamous Epith Cells 13 H (0-4) /hpf Hyaline Casts 1 (0-2) /lpf Urine Mucus Few H (None) /hpf Disposition Clinical Impression: Postoperative lower abdominal pain Disposition: HOME SELF-CARE Condition: Good Additional Instructions: Every disease is a spectrum and a small chance still exists that a serious condition could develop, for this reason, please monitor yourself closely for new, changing or worsening symptoms, symptoms that persist beyond 48 hours, worsening discharge from your incision site, uncontrollable pain, vomiting, black or bloody stools, inability to follow-up with your surgeon as scheduled, symptoms that persist after completion of antibiotics, fever, inability to tolerate/keep down fluids or your medications, inability to follow up with outpatient providers as instructed and should you experience these symptoms or should you have any further concerns for your wellbeing please return to the ED or call 911 immediately. Please follow-up with Dr. Subramanian on Sunday regarding today's visit. PLEASE call your primary care physician as soon as possible to arrange / discuss plan for followup appointment. Appointment in the next 1-3 days is strongly enc ouraged if possible. PLEASE let us know here before you leave if there is anything further we can do to be of any assistance. Take care and feel Better! Is patient prescribed a controlled substance at d/c from ED?: No Referrals: None,Stated [Primary Care Provider] - 1-2 days
[2024-06-29] MEDS: HYDROmorphone 0.5 MG/0.5 ML SYRINGE IVP STA (01:11)
--- NOTE | 2024-06-29 01:15 | CT ---
EXAMINATION TYPE: CT abdomen pelvis w con DATE OF EXAM: 06/29/2024 HISTORY: Abdominal pain and vomiting. Recent colostomy reversal. Automated Exposure Control for Dose Reduction was Utilized. CONTRAST: CT scan of the abdomen and pelvis is attempted with oral and with IV Contrast, patient injected with 100 mL of Isovue 300. COMPARISON: Recent CT June 15, 2024 FINDINGS: LUNG BASES: No significant abnormality is appreciated. LIVER/GB: Liver is heterogeneously hypodense consistent with diffuse fatty infiltrated hepatocellular disease. PANCREAS: No significant abnormality is seen. SPLEEN: No significant abnormality is seen. ADRENALS: No significant abnormality is seen. KIDNEYS: Incidental tiny simple appearing thin-walled cyst upper pole right kidney delayed axial imag e 30 is redemonstrated. Subcentimeter simple cyst lower pole left kidney delayed axial image 41 is re demonstrated. Symmetric uptake and excretion without hydronephrosis seen bilaterally. BOWEL: Surgical sutures in the sigmoid colon are redemonstrated. There appears to be a blind-ending o utpouching of bowel in the right pelvis at the level redemonstrated. Oral contrast does not reach the level of the terminal ileum. No abnormal small or large bowel dilatation. UTERUS/ADNEXA: No gross abnormality seen. LYMPH NODES: No greater than 1cm abdominal or pelvic lymph nodes are appreciated. OSSEOUS STRUCTURES: No significant abnormality is seen. OTHER: Persistent moderate to severe ill-defined fluid and fat stranding in the anterior abdominal wa ll consistent with recent surgery and inflammatory change. In the deeper aspect of the anterior abdom inal wall there is focal fluid collection with foci of air are redemonstrated near axial image 54. In ferior to this there is a rim-enhancing fluid collection anterior pelvis measuring 3.6 x 2.3 cm-69 th at is decreased in size from most recent prior. Stable infrarenal IVC filter. Mild calcified plaque of the aorta extends into branch vessels IMPRESSION: Postsurgical changes anterior abdominal wall redemonstrated. Persistent inflammatory godinez ge redemonstrated. Small inferior fluid collection possible abscess is improved from most recent CT. No new focal fluid collection or abscess. No bowel obstruction. No suspicious new findings since most recent CT. [facility], , 06/29/2024 1:13 AM
[2024-06-29 01:24] VITALS: RESP 18
[2024-06-29 01:51] VITALS: BP 153/97; PULSE 82
== END 2024-06-29 01:50 | disposition home or self-care (01) ==
LOC: EC 19:05
DX: G89.18 Other acute postprocedural pain (principal); F17.200 Nicotine dependence, unspecified, uncomplicated
CPT/HCPCS: 36415; 80053; 82150; 83605; 83690; 84484; 85025; 86140; 81001; 74018; 74177; 99285; 96374; 96375 ×2; 96376; 96361; J2270; J2405; J1171; Q9967

== ENCOUNTER 2024-07-17 13:15 | Inpatient (IN) | payer MEDICARE, OTHER ==
--- NOTE | 2024-07-17 14:04 | ED ---
Abdominal Pain HPI - General Chief Complaint: Abdominal Pain Stated Complaint: Abd pain Time Seen by Provider: 07/17/24 13:54 Source: patient, RN notes reviewed, old records reviewed Mode of arrival: wheelchair Limitations: no limitations - History of Present Illness Initial Comments: This is a 54-year-old female to the ER for evaluation of uncontrolled abdominal pain severe and persistent abdominal pain here in the emergency room started last night into this morning and worsening throughout the day. Positive nausea no active vomiting no fevers patient has a lot of postsurgical complications currently in a very anxious MD Complaint: abdominal pain -: days(s) Radiation: epigastric, suprapubic Migration to: epigastric, suprapubic Severity: severe Severity scale (1-10): 10 Quality: sharp Consistency: constant Improves With: nothing Worsens With: nothing Associated Symptoms: nausea Treatments Prior to Arrival: other (0) - Related Data Home Medications Medication Instructions Recorded Confirmed Insulin Glargine,Hum.rec.anlog 42 unit SQ DAILY 08/04/21 07/17/24 [Lantus Solostar Pen] hydroCHLOROthiazide [Hydrodiuril] 12.5 mg PO DAILY 08/04/21 07/17/24 busPIRone HCL 15 mg PO TID 03/14/23 07/17/24 traZODone HCL 150 mg PO HS 03/14/23 07/17/24 Atorvastatin [Lipitor] 80 mg PO DAILY 08/07/23 07/17/24 Apixaban [Eliquis] 5 mg PO BID 05/03/24 07/17/24 Dapagliflozin Propanediol [Farxiga] 5 mg PO DAILY 05/03/24 07/17/24 Ezetimibe [Zetia] 10 mg PO DAILY 05/03/24 07/17/24 Famotidine 40 mg PO DAILY 05/03/24 07/17/24 Venlafaxine HCl [Effexor XR] 150 mg PO DAILY 05/03/24 07/17/24 cloNIDine HCL 0.05 mg PO BID 05/03/24 07/17/24 lisinopriL 30 mg PO DAILY 05/03/24 07/17/24 Ipratropium-Albuterol Nebulize 3 ml INHALATION RT-QID 06/15/24 07/17/24 [Duoneb 0.5 mg-3 mg/3 ml Soln] Previous Rx's Medication Instructions Recorded Gabapentin 800 mg PO TID 3 Days #9 tab 07/12/23 oxyCODONE ER [OxyCONTIN] 10 mg PO Q12HR 3 Days #6 tab 07/22/24 oxyCODONE HCL/ACETAMINOPHEN 1 tab PO Q6HR PRN 3 Days #12 tab 07/22/24 [Percocet 5-325 mg] Allergies Allergy/AdvReac Type Severity Reaction Status Date / Time No Known Allergies Allergy Verified 07/17/24 15:31 Review of Systems ROS Statement: Those systems with pertinent positive or pertinent negative responses have been documented in the HPI. ROS Other: All systems not noted in ROS Statement are negative. Past Medical History Past Medical History: COPD, CVA/TIA, Diabetes Mellitus, Deep Vein Thrombosis (DVT), GERD/Reflux, Hyperlipidemia, Hypertension Additional Past Medical History / Comment(s): CVA 2020- expressive aphasia; 2 DVT's; diverticulitis; hernia History of Any Multi-Drug Resistant Organisms: MRSA Date of last positivie culture/infection: 09/03/23 MDRO Source:: Groin Past Surgical History: Bowel Resection Additional Past Surgical History / Comment(s): IVC FILTER 2013. ileostomy. wound vac. ileostomy reversal with hernia repair, with ovary removal-Apr 2024. Past Anesthesia/Blood Transfusion Reactions: No Reported Reaction Past Psychological History: Depression, PTSD Smoking Status: Current every day smoker Past Alcohol Use History: None Reported Past Drug Use History: None Reported General Exam Limitations: no limitations General appearance: alert, in no apparent distress Head exam: Present: atraumatic, normocephalic, normal inspection Eye exam: Present: normal appearance, PERRL, EOMI. Absent: scleral icterus, conjunctival injection, periorbital swelling ENT exam: Present: normal exam, mucous membranes moist Neck exam: Present: normal inspection. Absent: tenderness, meningismus, lymp hadenopathy Respiratory exam: Present: normal lung sounds bilaterally. Absent: respiratory distress, wheezes, rales, rhonchi, stridor Cardiovascular Exam: Present: regular rate, normal rhythm, normal heart sounds. Absent: systolic murmur, diastolic murmur, rubs, gallop, clicks GI/Abdominal exam: Present: soft, normal bowel sounds. Absent: distended, tenderness, guarding, rebound, rigid Extremities exam: Present: normal inspection, full ROM, normal capillary refill. Absent: tenderness, pedal edema, joint swelling, calf tenderness Back exam: Present: normal inspection Neurological exam: Present: alert, oriented X3, CN II-XII intact Psychiatric exam: Present: normal affect, normal mood Skin exam: Present: warm, dry, intact, normal color. Absent: rash Course Vital Signs 07/17/24 07/17/24 07/17/24 13:39 15:45 18:57 Temperature 99 F Pulse Rate 86 92 67 Respiratory 18 18 20 Rate Blood Pressure 176/117 163/111 159/99 O2 Sat by Pulse 98 98 96 Oximetry 07/17/24 07/17/24 07/18/24 21:42 23:45 02:35 Temperature 97.6 F Pulse Rate 83 79 80 Respiratory 16 18 18 Rate Blood Pressure 148/97 140/97 118/82 O2 Sat by Pulse 94 L Oximetry 07/18/24 07/18/24 07/18/24 04:12 06:16 07:23 Temperature Pulse Rate 80 84 74 Respiratory 18 18 Rate Blood Pressure 122/76 134/85 O2 Sat by Pulse Oximetry 07/18/24 07/18/24 07/18/24 07:32 11:23 11:33 Temperature Pulse Rate 70 78 84 Respiratory Rate Blood Pressure O2 Sat by Pulse Oximetry 07/18/24 12:38 Temperature Pulse Rate 72 Respiratory 17 Rate Blood Pressure 157/100 O2 Sat by Pulse 97 Oximetry - Reevaluation(s) Reevaluation #1: 07/17/24 17:38 Medical records reviewed Reevaluation #2: 07/17/24 17:39 Patient symptoms improved Reevaluation #3: 07/17/24 17:39 Patient informed of results questions answered Reevaluation #4: Was pt. sent in by a medical professional or institution (, PA, AUDIO VISUAL FACILITIES ENGINEER, urgent care, hospital, or half-way...) When possible be specific @ -no Did you speak to anyone other than the patient for history (EMS, parent, family, police, friend...)? What history was obtained from this source @ -no Did you review nursing and triage notes (agree or disagree)? Why? @ -agree Are old charts reviewed (outside hosp., previous admission, EMS record, old EKG, old radiological studies, urgent care reports/EKG's, half-way records)? Report findings @ -yes Differential Diagnosis (chest pain, altered mental status, abdominal pain women, abdominal pain men, vaginal bleeding, weakness, fever, dyspnea, syncope, headache, dizziness, GI bleed, back pain, seizure, CVA, palpatations, mental health, musculoskeletal)? @ -prior EKG interpreted by me (3pts min.). @ -yes X-rays interpreted by me (1pt min.). @ -no CT interpreted by me (1pt min.). @ -yes negative for acute disease U/S interpreted by me (1pt. min.). @ -no What testing was considered but not performed or refused? (CT, X-rays, U/S, labs)? Why? @ -none What meds were considered but not given or refused? Why? @ -none Did you discuss the management of the patient with other professionals (professionals i.e. , PA, AUDIO VISUAL FACILITIES ENGINEER, lab, RT, psych nurse, social sciences instructor, head boys tennis coach, teacher, foreign service officer, case filler)? Give summary @ -no Was smoking cessation discussed for >3mins.? @ -no Was critical care preformed (if so, how long)? @ -no Were there social determinants of health that impacted care today? How? (Homelessness, low income, unemployed, alcoholism, drug addiction, transportation, low edu. Level, literacy, decrease access to med. care, [facility], rehab)? @ -none Was there de-escalation of care discussed even if they declined (Discuss DNR or withdrawal of care, Hospice)? DNR status @ -no What co-morbidities impacted this encounter? (DM, HTN, Smoking, COPD, CAD, Cancer, CVA, ARF, Chemo, Hep., AIDS, mental health diagnosis, sleep apnea, morbid obesity)? @ -none Was patient admitted / discharged? Hospital course, mention meds given and route, prescriptions, significant lab abnormalities, going to OR and other pertinent info. @ - 54 female to ER for evaluation abdominal pain acute on chronic abdominal pain postoperative abdominal pain, patient will admit for surgical evaluation pain control Admitted Undiagnosed new problem with uncertain prognosis? @ -no Drug Therapy requiring intensive monitoring for toxicity (Heparin, Nitro, Insulin, Cardizem)? @ -no Were any procedures done? @ -no Diagnosis/symptom? @ -Chronic abdominal pain postoperative abdominal pain Acute, or Chronic, or Acute on Chronic? @ -Acute Uncomplicated (without systemic symptoms) or Complicated (systemic symptoms)? @ -Complicated Side effects of treatment? @ -no Exacerbation, Progression, or Severe Exacerbation? @ -exacerbation Poses a threat to life or bodily function? How? (Chest pain, [place], [place], pneumonia, PE, COPD, DKA, ARF, appy, cholecystitis, CVA, Diverticulitis, Homicidal, Suicidal, threat to staff... and all critical care pts) @ -no Reevaluation #5: Differential Abdominal Pain Women: Appendicitis, Cholecystitis, diverticulosis, ischemic bowel, pancreatitis, hepatitis, UTI, gastroenteritis, AAA, incarcerated hernia, bowel obstruction, constipation, inflammatory bowel, hepatitis, peptic ulcer disease, splenic infarction, perforated viscus, vulvitis, ovarian torsion, PID, kidney stone, placenta abruption, this is not meant to be an all-inclusive list - Consultations Consultation #1: Spoke with sound who agrees to admit this patient Medical Decision Making - Medical Decision Making 54 female to ER for evaluation abdominal pain acute on chronic abdominal pain postoperative abdominal pain, patient will admit for surgical evaluation pain control - Lab Data Result diagrams: 07/21/24 02:45 07/21/24 02:45 Lab Results 07/17/24 07/17/24 07/17/24 Range/Units 15:05 15:05 15:05 WBC 8.0 (3.8-10.6) k/uL RBC 4.33 (3.80-5.40) m/uL Hgb 12.8 (11.4-16.0) gm/dL Hct 39.6 (34.0-46.0) % MCV 91.3 (80.0-100.0) fL MCH 29.6 (25.0-35.0) pg MCHC 32.5 (31.0-37.0) g/dL RDW 15.0 (11.5-15.5) % Plt Count 229 (150-450) k/uL MPV 7.7 Neutrophils % 67 % Lymphocytes % 23 % Monocytes % 5 % Eosinophils % 2 % Basophils % 1 % Neutrophils # 5.3 (1.3-7.7) k/uL Lymphocytes # 1.9 (1.0-4.8) k/uL Monocytes # 0.4 (0-1.0) k/uL Eosinophils # 0.2 (0-0.7) k/uL Basophils # 0.1 (0-0.2) k/uL PT 9.3 L (10.0-12.5) sec INR 0.8 (<1.2) APTT 21.5 L (22.0-30.0) sec Sodium 136 L (137-145) mmol/L Potassium 4.4 (3.5-5.1) mmol/L Chloride 105 (98-107) mmol/L Carbon Dioxide 23 (22-30) mmol/L Anion Gap 8 mmol/L BUN 12 (7-17) mg/dL Creatinine 0.75 (0.52-1.04) mg/dL Est GFR (CKD-EPI)AfAm >90 (>60 ml/min/1.73 sqM) Est GFR (CKD-EPI)NonAf >90 (>60 ml/min/1.73 sqM) Glucose 253 H (74-99) mg/dL Calcium 9.5 (8.4-10.2) mg/dL Total Bilirubin 0.9 (0.2-1.3) mg/dL AST 26 (14-36) U/L ALT 37 H (4-34) U/L Alkaline Phosphatase 156 H (38-126) U/L Total Protein 7.8 (6.3-8.2) g/dL Albumin 4.4 (3.5-5.0) g/dL Amylase 58 (30-110) U/L Lipase 115 (23-300) U/L - Radiology Data Radiology results: report reviewed (CT abdomen pelvis is and does appear to be improving from prior abnormal), image reviewed Disposition Clinical Impression: Abdominal pain, Abnormal CT of the abdomen, Seroma after procedure, Abdominal wall abscess, Postoperative lower abdominal pain, Acute anxiety Disposition: ADMITTED IP TO THIS [facility] Condition: Stable Is patient prescribed a controlled substance at d/c from ED?: No Time of Disposition: 17:10
[2024-07-17] MEDS: HYDROmorphone 1 MG/ML 1 ML SYRINGE IVP STA ×4 (15:02→18:56)
[2024-07-17] MEDS: PANTOPRAZOLE 40 MG/10 ML VIAL IVP STA (15:02)
[2024-07-17] MEDS: SODIUM CHLORIDE 0.9% 1,000 ML IV STA (15:03)
[2024-07-17] MEDS: ONDANSETRON 4 MG/2 ML VIAL IVP STA (15:03)
[2024-07-17 15:34] LABS: Basophils # (A) 0.1 k/uL (0-0.2); Basophils % (A) 1 %; Eosinophils # (A) 0.2 k/uL (0-0.7); Eosinophils % (A) 2 %; HCT 39.6 % (34.0-46.0); HGB 12.8 gm/dL (11.4-16.0); Lymphocytes # (A) 1.9 k/uL (1.0-4.8); Lymphocytes % (A) 23 %; MCH 29.6 pg (25.0-35.0); MCHC 32.5 g/dL (31.0-37.0); MCV 91.3 fL (80.0-100.0); Mean Platelet Volume 7.7; Monocytes # (A) 0.4 k/uL (0-1.0); Monocytes % (A) 5 %; Neutrophils # (A) 5.3 k/uL (1.3-7.7); Neutrophils % (A) 67 %; Platelet Count 229 k/uL (150-450); RBC 4.33 m/uL (3.80-5.40)
[2024-07-17 15:35] LABS: ALT 37 U/L (4-34); AST 26 U/L (14-36); African American GFR (CKD) >90 (>60 ml/min/1.73 sqM); Albumin 4.4 g/dL (3.5-5.0); Alkaline Phosphatase 156 U/L (38-126); Amylase 58 U/L (30-110); Anion Gap 8 mmol/L; Blood Urea Nitrogen 12 mg/dL (7-17); Calcium 9.5 mg/dL (8.4-10.2); Carbon Dioxide 23 mmol/L (22-30); Chloride 105 mmol/L (98-107); Glucose 253 mg/dL (74-99); Lipase 115 U/L (23-300); Non-African American GFR(CKD) >90 (>60 ml/min/1.73 sqM); Potassium 4.4 mmol/L (3.5-5.1); Sodium 136 mmol/L (137-145); Total Bilirubin 0.9 mg/dL (0.2-1.3); Total Protein 7.8 g/dL (6.3-8.2)
[2024-07-17 15:49] LABS: INR 0.8 (<1.2); Prothrombin Time 9.3 sec (10.0-12.5)
[2024-07-17 15:55] LABS: Partial Thromboplastin Time 21.5 sec (22.0-30.0)
--- NOTE | 2024-07-17 16:31 | CT ---
EXAMINATION TYPE: CT abdomen pelvis w con DATE OF EXAM: 07/17/2024 4:02 PM COMPARISON: CT abdomen pelvis most recent from 06/29/2024. CLINICAL INDICATION: Female, 54 years old with history of abdominal pain; pt with abdomen wound from resection c/o increase pain. unable to walk skin w/d TECHNIQUE: Axial CT abdomen pelvis w con;Sagittal and coronal reformats were created on a separate w orkstation. Contrast used:100 ml mL of Isovue 300 with IV Contrast, (none if empty) Oral contrast used: without Oral Contrast (none if empty) CT DLP: 1014.3 mGycm, Automated exposure control for dose reduction was used. FINDINGS: LOWER CHEST: Unremarkable ABDOMEN LIVER: Diffusely hypoattenuating parenchyma. GALLBLADDER AND BILE DUCTS: Unremarkable. PANCREAS: Unremarkable. SPLEEN: Unremarkable. ADRENAL GLANDS: Unremarkable. KIDNEYS AND URETERS: No evidence of hydronephrosis or renal calculus. The ureters are unremarkable. Simple right renal cyst. PELVIS BLADDER: No evidence for wall thickening or mass given limitations of exam. REPRODUCTIVE: Unremarkable. ABDOMEN & PELVIS STOMACH AND BOWEL: No evidence of bowel obstruction. The appendix is normal. Postsurgical changes of the sigmoid colon. Scattered colonic diverticula. Small bowel feces in the left abdomen. PERITONEUM/RETROPERITONEUM: No evidence of pneumoperitoneum or free fluid. VASCULATURE: No evidence of aortic aneurysm. IVC filter in place. Collateral pathways seen coming fro m the right inguinal region extending up the anterior abdominal wall. MUSCULOSKELETAL: No acute osseous abnormalities LYMPH NODES: No gross evidence for lymphadenopathy. SOFT TISSUE/ABDOMINAL WALL: Unremarkable Fat stranding changes along the anterior abdominal wall with few foci of gas. No discrete collection definitively visualized. Small fluid collection seen on prio r now measuring smaller measuring 22 x 11 mm,previously 36 x 23 mm. IMPRESSION: 1. Postsurgical changes with phlegmonous change/gas and decrease in size of small fluid collection s een on prior now measuring smaller measuring 22 x 11 mm. Previously 36 x 23 mm. Findings remain segundo rning for infection. Multiple tortuous vessels are present near this on the right. 2. Small bowel feces in the left abdomen correlate for fecal stasis. 3. Hepatic steatosis. 4. Hepatomegaly. 5. 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 [facility], , 07/17/2024 4:28 PM
[2024-07-17] MEDS ORDERED: NALOXONE 0.4 MG/ML 1 ML VIAL IV PRN (17:15)
[2024-07-17] MEDS ORDERED: ONDANSETRON 4 MG/2 ML VIAL IVP PRN (17:15)
[2024-07-17] MEDS ORDERED: IPRATROPIUM-ALBUTEROL 3 ML NEB INHALATION PRN (18:51)
[2024-07-17] MEDS: diphenhydrAMINE 50 MG/ML 1 ML VIAL IVP STA (18:55)
[2024-07-17] MEDS: LORazepam 2 MG/ML INJ IV STA (18:56)
[2024-07-17] MEDS: SODIUM CHLORIDE 0.9% 1,000 ML IV SCH (18:57)
[2024-07-17] MEDS: GABAPENTIN 400 MG CAP PO SCH (22:42)
[2024-07-17] MEDS: busPIRone HCl 5 MG TAB PO SCH (22:42)
[2024-07-17] MEDS: traZODone HCL 50 MG TAB PO SCH (22:42)
[2024-07-17] MEDS: HYDROmorphone 1 MG/ML 1 ML SYRINGE IVP PRN (22:46)
--- NOTE | 2024-07-18 01:59 | P.HPIM ---
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 She presents to the emergency department for evaluation of uncont rolled abdominal pain that has been severe and persistent. Started last night and has worsened into the morning and throughout the day, and continues here while in the emergency department. She states that the pain remains localized in a specific spot in the LUQ of her abdomen. When not utilizing pain medication she states the pain is a "100/10". She states the pain is most similar to the pain she had right after surgery.She denies any nausea, vomiting, fever or chills. Labratory review: -WBCs 8.0, hemoglobin 12.8, hematocrit 39.6, platelet 229; sodium 136, potassium 4.4, BUN 12, creatinine 0.75, glucose 253, AST 26, ALT 37, alkaline phosphatase 156, amylase 58, lipase 115 Imaging: -CT abdomen/pelvis showed postsurgical changes with phlegmonous change/gaseous and decrease in size of small fluid collection now measuring smaller at 22 x 11 mm, 1 previously 36 x 23 mm - findings remain concerning for infection. Multiple tortuous vessels present near this collection; small bowel feces in the left abdomen correlate for fecal stasis; hepatic steatosis; hepatomegaly; occlusion of the distal IVC below the level of IVC filter, there are collateral pathways extending up from the right inguinal region along the anterior abdominal wall Vitals: -Blood pressure 159/99, heart rate 67, respiratory rate 20, SpO2 96% on room air Patient admitted to internal medicine service REVIEW OF SYSTEMS: CONSTITUTIONAL: No fever, no malaise, no fatigue. HEENT: No recent visual problems or hearing problems. Denied any sore throat. CARDIOVASCULAR: No chest pain, orthopnea, PND, no palpitations, no syncope. PULMONARY: No shortness of breath, no cough, no hemoptysis. GASTROINTESTINAL: No diarrhea, no nausea, no vomiting. Significant abdominal pain localized to the LUQ. NEUROLOGICAL: No headaches, no weakness, no numbness. HEMATOLOGICAL: Denies any bleeding or petechiae. GENITOURINARY: Denies any burning micturition, frequency, or urgency. MUSCULOSKELETAL/RHEUMATOLOGICAL: Denies any joint pain, swelling, or any muscle pain. ENDOCRINE: Denies any polyuria or polydipsia. The rest of the 14-point review of systems is negative. PHYSICAL EXAMINATION: GENERAL: The patient is alert and oriented x3, not in any acute distress. Well developed, well nourished. HEENT: No scleral icterus. No conjunctival pallor. Normocephalic, atraumatic. No pharyngeal erythema. No thyromegaly. CARDIOVASCULAR: S1 and S2 present. No murmurs, rubs, or gallops. PULMONARY: Chest is clear to auscultation, no wheezing or crackles. ABDOMEN: Somewhat distended abdomen with tenderness to palpation of the left upper quadrant. Bandage covering open sore/wound with some expected post surgical discharge, without any associated erythema. normoactive bowel sounds. No palpable organomegaly. MUSCULOSKELETAL: No joint swelling or deformity. EXTREMITIES: No cyanosis, clubbing, or pedal edema. NEUROLOGICAL: Gross neurological examination did not reveal any focal deficits. SKIN: No rashes. Assessment and plan 52-year-old female with PMH of COPD, CVA with residual expressive aphasia, insulin-dependent diabetes mellitus, GERD, hyperlipidemia, hypertension and history of DVTs and anticoagulation with Eliquis, diverticulitis with previous bowel resection resulting ileostomy, and depression. Presents to the emergency room for worsening abdominal pain since yesterday. Discussed with the ED and the patient has been admitted to the internal medicine service for further evaluation. #Abdominal pain possibly secondary to post surgical seroma -General surgery consulted -Continue pain control 1 mg IV Dilaudid Q3H as needed -F/u CBC, CMP, lipase, magnesium and phosphorus -NPO Diet -Low suspicion for infection at the moment, monitor off of antibiotics #COPD without exacerbation -Continue with Duonebs #Type 2 diabetes mellitus -Patient maintained at home on 42 units Lantus daily and 5 mg Farxiga; hold for now -Start patient on 42 units lantus daily and medium dose sliding scale, monitor for hypoglycemia -Accu-cheks #GERD -Continue home medication 40 mg Famotidine daily #History of DVT on anticoagulation with Eliquis -Continue home 5mg eliquis #Hyperlipidemia -Continue home 80 mg Lipitor daily and 10 mg Ezetimibe #Hypertension -Continue home medication 30 mg Lisinopril daily and 12.5 mg Hydrochlorothiazide daily CODE STATUS: Full Code GI prohylaxis: Continue home Famotidine DVT prophylaxis: Continue home 5 mg eliquis Dictation was produced using [employer] dictation software. please excuse any grammatical, word or spelling errors. The patient is admitted with an anticipated less than 2 midnight stay as observation status for evaluation of abdominal pain. A total of 55 minutes was spent on the care of this complex patient more than 50% of the time was spent in counseling and care coordination. I have seen and evaluated the patient today. Discussed with the resident and agree with the residents finding and plan as documented in the resident's note. Changes highlighted in blue font. Past Medical History Past Medical History: COPD, CVA/TIA, Diabetes Mellitus, Deep Vein Thrombosis (DVT), GERD/Reflux, Hyperlipidemia, Hypertension Additional Past Medical History / Comment(s): CVA 2019- expressive aphasia; 2 DVT's; diverticulitis; hernia History of Any Multi-Drug Resistant Organisms: MRSA Date of last positivie culture/infection: 09/03/23 MDRO Source:: Groin Past Surgical History: Bowel Resection Additional Past Surgical History / Comment(s): IVC FILTER 2013. ileostomy. wound vac. ileostomy reversal with hernia repair, with ovary removal-Apr 2024. Past Anesthesia/Blood Transfusion Reactions: No Reported Reaction Past Psychological History: Depression, PTSD Smoking Status: Current every day smoker Past Alcohol Use History: None Reported Past Drug Use History: None Reported Medications and Allergies Home Medications Medication Instructions Recorded Confirmed Type Insulin Glargine,Hum.rec.anlog 42 unit SQ DAILY 08/04/21 07/17/24 History [Lantus Solostar Pen] hydroCHLOROthiazide [Hydrodiuril] 12.5 mg PO DAILY 08/04/21 07/17/24 History busPIRone HCL 15 mg PO TID 03/14/23 07/17/24 History traZODone HCL 150 mg PO HS 03/14/23 07/17/24 History Gabapentin 800 mg PO TID 3 Days #9 tab 07/12/23 07/17/24 Rx Atorvastatin [Lipitor] 80 mg PO DAILY 08/07/23 07/17/24 History Apixaban [Eliquis] 5 mg PO BID 05/03/24 07/17/24 History Dapagliflozin Propanediol [Farxiga] 5 mg PO DAILY 05/03/24 07/17/24 History Ezetimibe [Zetia] 10 mg PO DAILY 05/03/24 07/17/24 History Famotidine 40 mg PO DAILY 05/03/24 07/17/24 History Venlafaxine HCl [Effexor XR] 150 mg PO DAILY 05/03/24 07/17/24 History cloNIDine HCL 0.05 mg PO BID 05/03/24 07/17/24 History lisinopriL 30 mg PO DAILY 05/03/24 07/17/24 History Ipratropium-Albuterol Nebulize 3 ml INHALATION RT-QID 06/15/24 07/17/24 History [Duoneb 0.5 mg-3 mg/3 ml Soln] HYDROcodone/APAP 10-325MG [[place] 1 tab PO Q8HR PRN 3 Days #9 tab 06/25/24 07/17/24 Rx 10-325] Allergies Allergy/AdvReac Type Severity Reaction Status Date / Time No Known Allergies Allergy Verified 07/17/24 15:31 Physical Exam Vitals: Vital Signs Temp Pulse Resp BP Pulse Ox 07/17/24 18:57 67 20 159/99 96 07/17/24 15:45 92 18 163/111 98 07/17/24 13:39 99 F 86 18 176/117 98 Intake and Output 07/17/24 07/17/24 07/17/24 06:59 14:59 22:59 Other: Weight 72.575 kg Results CBC & Chem 7: 07/17/24 15:05 07/17/24 15:05 Labs: Abnormal Lab Results - Last 24 Hours (Table) 07/17/24 07/17/24 Range/Units 15:05 15:05 PT 9.3 L (10.0-12.5) sec APTT 21.5 L (22.0-30.0) sec Sodium 136 L (137-145) mmol/L Glucose 253 H (74-99) mg/dL ALT 37 H (4-34) U/L Alkaline Phosphatase 156 H (38-126) U/L
[2024-07-18] MEDS: IPRATROPIUM-ALBUTEROL 3 ML NEB INHALATION SCH (07:23)
[2024-07-18] MEDS ORDERED: DEXTROSE 50% SYRINGE 50 ML IVP PRN ×2 (08:22)
[2024-07-18 08:46] LABS: ALT 30 U/L (8-44); AST 23 U/L (13-35); Albumin 3.8 g/dL (3.8-4.9); Albumin/Globulin Ratio 1.46 Ratio (1.60-3.17); Alkaline Phosphatase 142 U/L (41-126); Blood Urea Nitrogen 10.7 mg/dL (9.0-27.0); Calcium 9.2 mg/dL (8.7-10.3); Carbon Dioxide 21.9 mmol/L (21.6-31.8); Chloride 102 mmol/L (96-109); Globulin 2.6 g/dL (1.6-3.3); Glucose 173 mg/dL (70-110); Lipase 31 U/L (14-63); Magnesium 1.8 mg/dL (1.5-2.4); Potassium 4.1 mmol/L (3.5-5.5); Sodium 137 mmol/L (135-145); Total Bilirubin 0.5 mg/dL (0.3-1.2); Total Protein 6.4 g/dL (6.2-8.2)
[2024-07-18 09:00] LABS: Glucose,Whole Blood 206 mg/dL (70-110)
[2024-07-18] MEDS: VENLAFAXINE HCL ER 150 MG CAP PO SCH (09:20)
[2024-07-18] MEDS: DAPAGLIFLOZIN PROPANEDIOL 5 MG TABLET PO SCH (09:20)
[2024-07-18] MEDS: lisinopriL 10 MG TAB PO SCH (09:21)
[2024-07-18] MEDS: FAMOTIDINE 20 MG TAB PO SCH (09:21)
[2024-07-18] MEDS: hydroCHLOROthiazide 12.5 MG CAP PO SCH (09:21)
[2024-07-18] MEDS: APIXABAN 5 MG TAB PO SCH (09:21)
[2024-07-18] MEDS: EZETIMIBE 10 MG TAB PO SCH (09:21)
[2024-07-18] MEDS: ATORVASTATIN 80 MG TAB PO SCH (09:21)
[2024-07-18] MEDS: cloNIDine HCL 0.1 MG TAB PO SCH (09:22)
[2024-07-18] MEDS: METOCLOPRAMIDE 5 MG/ML 2 ML VIAL IVP SCH (09:23)
[2024-07-18] MEDS: INSULIN DETEMIR (LEVEMIR) 100 UNIT/ML SYR SQ SCH (09:23)
[2024-07-18] MEDS: KETOROLAC 15 MG/ML 1 ML VIAL IVP SCH (09:35)
--- NOTE | 2024-07-18 10:28 | P.PN ---
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 She presented to the hospital on 07/17/2024 with a chief complaint of intractable abdominal pain. Upon arrival to our facility, patient underwent evaluation in the emergency department. Vital signs upon arrival show blood pressure 176/117, heart rate 86, respiratory rate 18, temp 99.0 F, and SpO2 of 98% on room air. Labs completed and reviewed. CBC unremarkable. Coagulation profile showing low PT of 9.3 and PTT of 21.5. BMP showing elevated blood glucose of 253. Liver profile showing elevated AST of 37 and alkaline phosphatase of 156. Amylase and lipase normal findings. CT abdomen and pelvis showing postsurgical changes with phlegmonous changes/gas and decrease in size of fluid collection from previous 36 x 23 mm down to 22 x 11 mm, small bowel feces left abdomen concerning for fecal stasis, hepatic steatosis, and occlusion of the distal IVC below the level of the IVC filter with collateral pathways extending up from the right inguinal region to the anterior abdominal wall. Patient admitted under our services with consultation to general surgery and vascular surgery for evaluation. Physical exam: Patient seen and fully evaluated at bedside this morning. Patient tearful reports continued severe pain. Patient's eye swollen from crying. Called to discuss this persistent pain with general surgery PA. Patient to remain n.p.o. until evaluated by surgery team. Vital signs reviewed and stable. General: Nontoxic, no distress and appears stated age. Derm: Skin warm and dry, normal coloration for ethnicity. Head: Atraumatic, normocephalic and symmetric. Eyes: EOM's intact, no lid lag, and anicteric sclera Mouth: no lip lesions, mucus membranes moist Cardiovascular: regular rate and rhythm with normal S1S2, no murmur, positive posterior tibial pulses bilaterally, and cap refill < 2 seconds. Lungs: Respirations even, regular, and unlabored on room air. Lungs CTA bilaterally, no rhonchi, no rales, no wheezing, and no accessory muscle usage. Abdominal: soft, slightly distended with tenderness upon palpation patient to abdomen and left upper quadrant, no guarding, no appreciable organomegaly. Dressing in place to mid abdomen from previous colostomy reversal with dressing in place secondary to continued postsurgical drainage, no surrounding erythema. Ext: ROM intact. No gross muscle atrophy, no edema, no contractures Neuro: Speech clear, face symmetrical and CN II-XII grossly intact with no noted focal neuro deficits Psych: Alert and oriented to person, place, time, and situation. Appropriate and pleasant affect. Assessment and Plan of Care: Intractable abdominal pain Fecal stasis Status post reversal of colostomy, repair of incisional hernia, and repair of parastomal hernia on 05/26/2024 Postoperative seroma, appears to be improving/decreasing in size -CT abdomen and pelvis showing postsurgical changes with phlegmonous changes/gas and decrease in size of fluid collection from previous 36 x 23 mm down to 22 x 11 mm, small bowel feces left abdomen concerning for fecal stasis, and hepatic steatosis. -General Surgery following, discussed in detail with general surgery PA. -Patient started on Reglan 10 mg IVP every 6 hours for treatment of nausea as well as attempts to facilitate bowel function and improved/resolve fecal stasis. -Continue symptomatic care and pain management. -Continue with abdominal postsurgical wound dressing changes Occlusion of distal IVC, likely chronic -CT abdomen and pelvis incidentally showing occlusion of the distal IVC below the level of the IVC filter with collateral pathways extending up from the right inguinal region to the anterior abdominal wall. -As CT findings appear to be chronic, initially discussed this with vascular surgery BAND HEAD SAW OPERATOR, and per their request consult placed to vascular surgery for further evaluation. Insulin-dependent diabetes mellitus with hyperglycemia -Continue Levemir 42 units daily along with glycemic protocol with NovoLog sliding scale. History of DVTs on anticoagulation with Eliquis -Continue anticoagulation with Eliquis 5 mg twice daily. History of CVA with residual aphasia -Continue atorvastatin 80 mg daily. Hypertension -Continue clonidine 0.05 mg twice daily, hydrochlorothiazide 12.5 mg daily, and lisinopril 30 mg daily. Hyperlipidemia -Continue atorvastatin 80 mg daily. Depression -Continue daily medication regimen with Effexor 150 mg daily, trazodone 150 mg nightly, and BuSpar 15 mg 3 times daily. Data and imaging reviewed: -Vital signs reviewed. Blood pressure 134/85, heart rate 84, respiratory rate 18, temp 97.6 F, and SpO2 of 97% on room air. -Morning labs reviewed. CBC unremarkable. BMP showing elevated anion gap of 13.10 otherwise normal findings. Blood glucose 173. Liver profile showing elevated alkaline phosphatase of 142 otherwise normal findings. - CT abdomen and pelvis showing postsurgical changes with phlegmonous changes/gas and decrease in size of fluid collection from previous 36 x 23 mm down to 22 x 11 mm, small bowel feces left abdomen concerning for fecal stasis, hepatic steatosis, and occlusion of the distal IVC below the level of the IVC filter with collateral pathways extending up from the right inguinal region to the anterior abdominal wall. CODE STATUS: Full code DVT prophylaxis: Eliquis Discussed with: Patient, RN, general surgery PA, and vascular surgery BAND HEAD SAW OPERATOR Anticipated discharge date: Pending clinical course Anticipated discharge place: Home Patient was seen independently by Nurse Pracitioner. This document was prepared using [employer] dictation software. Please allow for errors in zipper cutter, while rare they do occur. Thom Medrano NP rendered care for this patient independently, reviewed the findings and plan as documented in the note above and agree with plan. I did not physically speak with or examine the patient on this date. Objective - Vital Signs Vital signs: Vital Signs Temp 97.6 F 07/17/24 21:42 Pulse 70 07/18/24 07:32 Resp 18 07/18/24 06:16 BP 134/85 07/18/24 06:16 Pulse Ox 94 L 07/17/24 21:42 FiO2 Intake & Output 07/17/24 07/18/24 07/18/24 18:59 06:59 18:59 Weight 72.575 kg - Labs CBC & Chem 7: 07/18/24 11:49 07/18/24 06:20 Labs: Abnormal Lab Results - Last 24 Hours (Table) 07/17/24 07/17/24 Range/Units 15:05 15:05 PT 9.3 L (10.0-12.5) sec APTT 21.5 L (22.0-30.0) sec Sodium 136 L (137-145) mmol/L Glucose 253 H (74-99) mg/dL ALT 37 H (4-34) U/L Alkaline Phosphatase 156 H (38-126) U/L
[2024-07-18] MEDS: HYDROcodone/APAP 10-325MG 1 EACH TAB PO PRN (12:08)
[2024-07-18 12:11] LABS: Basophils % (A) 1 %; Eosinophils # (A) 0.2 k/uL (0-0.7); Eosinophils % (A) 3 %; HCT 38.7 % (34.0-46.0); HGB 13.1 gm/dL (11.4-16.0); Lymphocytes % (A) 26 %; MCH 30.3 pg (25.0-35.0); MCV 89.3 fL (80.0-100.0); Monocytes # (A) 0.3 k/uL (0-1.0); Monocytes % (A) 4 %; Neutrophils # (A) 4.9 k/uL (1.3-7.7); Neutrophils % (A) 64 %; Platelet Count 194 k/uL (150-450); RBC 4.33 m/uL (3.80-5.40); RDW 15.3 % (11.5-15.5); WBC 7.6 k/uL (3.8-10.6)
[2024-07-18] MEDS: INSULIN ASPART (NovoLOG) 100 UNIT/ML VIAL SQ SCH (12:20)
--- NOTE | 2024-07-18 14:06 | P.GSCN ---
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 States she was recently raking some leaves pain worsened following that. Patient underwent exploratory laparotomy with right oophorectomy, lysis of adhesions and reversal of colostomy as well as partial omentectomy On 05/26/[address] Lewis. Patient states she has had abdominal pain for the last 2 months since prior to her surgery. She had a CT of the abdomen pelvis as part of her workup with reported finding of occlusion of the distal IVC below the level of the IVC filter with collateral pathways therefore vascular surgery was consulted. Patient denies any lower extremity swelling, abdominal pain is at surgical site specifically more so where abdominal wound is. CT also reports postsurgical changes with phlegmonous change/gas and decrease in size of small fluid collection seen on prior now measuring smaller measuring 22 x 11 mm previously 36 x 23 mm. Findings remain concerning for infection. Multiple torturous vessels are present near this on the right. Review of Systems A 14 point review systems was completed all pertinent positives and negatives as stated in the HPI. Past Medical History Past Medical History: COPD, CVA/TIA, Diabetes Mellitus, Deep Vein Thrombosis (DVT), GERD/Reflux, Hyperlipidemia, Hypertension Additional Past Medical History / Comment(s): CVA 2019- expressive aphasia; 2 DVT's; diverticulitis; hernia History of Any Multi-Drug Resistant Organisms: MRSA Year Discovered:: 09/03/23 MDRO Source:: Groin Past Surgical History: Bowel Resection Additional Past Surgical History / Comment(s): IVC FILTER 2013. ileostomy. wound vac. ileostomy reversal with hernia repair, with ovary removal-Apr 2024. Past Anesthesia/Blood Transfusion Reactions: No Reported Reaction Past Psychological History: Depression, PTSD Smoking Status: Current every day smoker Past Alcohol Use History: None Reported Past Drug Use History: None Reported Medications and Allergies Home Medications Medication Instructions Recorded Confirmed Type Insulin Glargine,Hum.rec.anlog 42 unit SQ DAILY 08/04/21 07/17/24 History [Lantus Solostar Pen] hydroCHLOROthiazide [Hydrodiuril] 12.5 mg PO DAILY 08/04/21 07/17/24 History busPIRone HCL 15 mg PO TID 03/14/23 07/17/24 History traZODone HCL 150 mg PO HS 03/14/23 07/17/24 History Gabapentin 800 mg PO TID 3 Days #9 tab 07/12/23 07/17/24 Rx Atorvastatin [Lipitor] 80 mg PO DAILY 08/07/23 07/17/24 History Apixaban [Eliquis] 5 mg PO BID 05/03/24 07/17/24 History Dapagliflozin Propanediol [Farxiga] 5 mg PO DAILY 05/03/24 07/17/24 History Ezetimibe [Zetia] 10 mg PO DAILY 05/03/24 07/17/24 History Famotidine 40 mg PO DAILY 05/03/24 07/17/24 History Venlafaxine HCl [Effexor XR] 150 mg PO DAILY 05/03/24 07/17/24 History cloNIDine HCL 0.05 mg PO BID 05/03/24 07/17/24 History lisinopriL 30 mg PO DAILY 05/03/24 07/17/24 History Ipratropium-Albuterol Nebulize 3 ml INHALATION RT-QID 06/15/24 07/17/24 History [Duoneb 0.5 mg-3 mg/3 ml Soln] HYDROcodone/APAP 10-325MG [[place] 1 tab PO Q8HR PRN 3 Days #9 tab 06/25/24 07/17/24 Rx 10-325] Allergies Allergy/AdvReac Type Severity Reaction Status Date / Time No Known Allergies Allergy Verified 07/17/24 15:31 Surgical - Exam Vital Signs Temp Pulse Resp BP Pulse Ox 99 F 86 18 176/117 98 07/17/24 13:39 07/17/24 13:39 07/17/24 13:39 07/17/24 13:39 07/17/24 13:39 General appearance: The patient is alert, oriented, appears in no acute distress. HET: Head is normocephalic and atraumatic. Pupils are equal and reactive. Neck: Supple. Heart: Regular. Lungs: Equal expansion, normal respiratory effort. Abdomen: Soft, diffuse tenderness around surgical incision and surgical wound with drainage, nondistended. Extremities: Normal skin color and turgor. No lower extremity edema. Palpable pedal pulses. Neurological: No focal deficits. Strength and sensation are grossly intact. Results - Labs 07/18/24 11:49 07/18/24 06:20 Abnormal Lab Results - Last 24 Hours (Table) 07/17/24 07/17/24 07/18/24 Range/Units 15:05 15:05 06:20 PT 9.3 L (10.0-12.5) sec APTT 21.5 L (22.0-30.0) sec Sodium 136 L (137-145) mmol/L Anion Gap 13.10 H (4.00-12.00) mmol/L Creatinine 0.5 L (0.6-1.5) mg/dL BUN/Creatinine Ratio 21.40 H (12.00-20.00) Ratio Glucose 253 H 173 H (74-99) mg/dL POC Glucose (mg/dL) (70-110) mg/dL ALT 37 H (4-34) U/L Alkaline Phosphatase 156 H 142 H (38-126) U/L Albumin/Globulin Ratio 1.46 L (1.60-3.17) Ratio 07/18/24 Range/Units 08:59 PT (10.0-12.5) sec APTT (22.0-30.0) sec Sodium (137-145) mmol/L Anion Gap (4.00-12.00) mmol/L Creatinine (0.6-1.5) mg/dL BUN/Creatinine Ratio (12.00-20.00) Ratio Glucose (74-99) mg/dL POC Glucose (mg/dL) 206 H (70-110) mg/dL ALT (4-34) U/L Alkaline Phosphatase (38-126) U/L Albumin/Globulin Ratio (1.60-3.17) Ratio Diabetes panel 07/17/24 07/18/24 Range/Units 15:05 06:20 Sodium 136 L 137 (137-145) mmol/L Potassium 4.4 4.1 (3.5-5.1) mmol/L Chloride 105 102 (98-107) mmol/L Carbon Dioxide 23 21.9 (22-30) mmol/L BUN 12 10.7 (7-17) mg/dL Creatinine 0.75 0.5 L (0.52-1.04) mg/dL Glucose 253 H 173 H (74-99) mg/dL Calcium 9.5 9.2 (8.4-10.2) mg/dL AST 26 23 (14-36) U/L ALT 37 H 30 (4-34) U/L Alkaline Phosphatase 156 H 142 H (38-126) U/L Total Protein 7.8 6.4 (6.3-8.2) g/dL Albumin 4.4 3.8 (3.5-5.0) g/dL Calcium panel 07/17/24 07/18/24 Range/Units 15:05 06:20 Calcium 9.5 9.2 (8.4-10.2) mg/dL Phosphorus 4.0 (2.4-5.1) mg/dL Albumin 4.4 3.8 (3.5-5.0) g/dL Pituitary panel 07/17/24 07/18/24 Range/Units 15:05 06:20 Sodium 136 L 137 (137-145) mmol/L Potassium 4.4 4.1 (3.5-5.1) mmol/L Chloride 105 102 (98-107) mmol/L Carbon Dioxide 23 21.9 (22-30) mmol/L BUN 12 10.7 (7-17) mg/dL Creatinine 0.75 0.5 L (0.52-1.04) mg/dL Glucose 253 H 173 H (74-99) mg/dL Calcium 9.5 9.2 (8.4-10.2) mg/dL Adrenal panel 07/17/24 07/18/24 Range/Units 15:05 06:20 Sodium 136 L 137 (137-145) mmol/L Potassium 4.4 4.1 (3.5-5.1) mmol/L Chloride 105 102 (98-107) mmol/L Carbon Dioxide 23 21.9 (22-30) mmol/L BUN 12 10.7 (7-17) mg/dL Creatinine 0.75 0.5 L (0.52-1.04) mg/dL Glucose 253 H 173 H (74-99) mg/dL Calcium 9.5 9.2 (8.4-10.2) mg/dL Total Bilirubin 0.9 0.5 (0.2-1.3) mg/dL AST 26 23 (14-36) U/L ALT 37 H 30 (4-34) U/L Alkaline Phosphatase 156 H 142 H (38-126) U/L Total Protein 7.8 6.4 (6.3-8.2) g/dL Albumin 4.4 3.8 (3.5-5.0) g/dL - Imaging Comments: CT abdomen and pelvis with contrast reports postsurgical changes with phlegmonous change/gas and decrease in size of small fluid collection seen on p rior now measuring smaller measuring 22 x 11 mm. Previously 36 x 23 mm. Findings remain concerning for infection. Multiple torturous vessels are present near this on the right. Small bowel feces in the left abdomen correlate for fecal stasis. Hepatic steatosis. Hepatomegaly. Occlusion of the distal IVC below the level of the IVC filter, there are collateral pathways extending up from the right inguinal regional across the anterior abdominal wall. Assessment and Plan Assessment: 1. Abdominal pain 2. 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 History of IVC filter secondary to DVT 4. Recent abdominal surgery 05/26/2024 5. Abdominal surgical wound Plan: CT abdomen pelvis reviewed. Appears all chronic findings the IVC occlusion at level of IVC filter and he has collateral blood flow, abdominal pain likely not secondary to above. Patient had recent abdominal surgery, has abdominal wound and pain apparently has been present for last 2 months duration. No further workup from vascular surgery and no vascular surgical intervention indicated. Continue with recommendations from general surgery. Thank you for this consultation, we will sign off at this time. The impression and plan of care has been dictated as directed. Dr. Lockwood I performed a history and examination of this patient, discussed the same with the dictator. I agree with the dictator's note ,documented as a scribe. Any additional findings or plans will be noted.
--- NOTE | 2024-07-18 14:48 | P.GSCN ---
History of Present Illness Consult date: 07/18/24 History of present illness: CHIEF COMPLAINT: Abdominal pain HISTORY OF PRESENT ILLNESS: This is a 54-year-old female who presented to the hospital with complaints of abdominal pain that started Sunday night. Patient reports having bowel movements. She denied any nausea or vomiting. Patient reports that the abdominal pain started after she had been raking leaves outside. Patient denies any fever chills or sweats. Patient with history of chronic abdominal pain and is status post reversal of colostomy, repair of incisional hernia greater than 10 cm and repair of parastomal hernia on 05/26/2024. She had been hospitalized in May for a postoperative seroma at the incision site that was managed medically with antibiotics. Patient seen and examined with Dr. Lewis PAST MEDICAL HISTORY: CVA with expressive aphasia, COPD, diabetes, DVT, hyperlipidemia hypertension PAST SURGICAL HISTORY: Lower anterior resection June 18, 2023 and taken back to the OR on 06/24/2023 due to an anastomotic leak status post Ly's procedure and end colostomy wi th closed distal pouch on 06/24/2023. Colostomy reversal on 05/26/2024 with parastomal hernia repair MEDICATIONS: See below ALLERGIES: See below SOCIAL HISTORY: No illicit drug use. REVIEW OF SYSTEMS: CONSTITUTIONAL: Denies fever or chills. HEENT: Denies blurred vision, vision changes, or eye pain. Denies hemoptysis CARDIOVASCULAR: Denies chest pain or pressure. RESPIRATORY: No shortness of breath. GASTROINTESTINAL: See HPI for pertinent findings HEMATOLOGIC: Denies bleeding disorders. GENITOURINARY: Denies any blood in urine or increased urinary frequency. SKIN: Denies pruitis. Denies rash. PHYSICAL EXAM: VITAL SIGNS: Reviewed GENERAL: Well-developed in no acute distress. HEENT: No sclera icterus. Extraocular movements grossly intact. Moist buccal mucosa. Head is atraumatic, normocephalic. No nasal drainage. ABDOMEN: Soft. Nondistended. Tender. Midline incision site with abdominal wound with granulation tissue. No surrounding erythema noted. NEUROLOGIC: Alert and oriented. Cranial nerves II through XII grossly intact. LABORATORY DATA: WBC 7.6 Hgb 13.1 platelets 194 Sodium 137 potassium 4.1 creatinine 0.5 IMAGING: CT scan abdomen pelvis reports postsurgical changes with phlegmonous changes/gas and decrease in size of small fluid collection seen on prior CAT scan now measuring smaller at 22.11 mm previously at 36 x 23 mm. Small bowel feces in the left abdomen correlate for fecal stasis. Hepatic steatosis. Hepatomegaly. Occlusion of the distal IVC below the level of the IVC filter. ASSESSMENT: 1. Abdominal pain likely musculoskeletal forearm patient raking leaves outside 2. History of chronic abdominal pain 3. Abdominal incisional wound with chronic granulation tissue 4. Incisional seroma decreased in size on CT scan. 5. Constipation. Fecal stasis noted on CT 6. History of colostomy reversal on 04/29/2024 with parastomal hernia repair and incisional hernia greater than 10 cm repair 7. Chronic abdominal pain PLAN: -No surgical intervention planned -Toradol added for muscle strain pain of the abdomen due to raking leaves -add miralax for constipation -Patient to shower daily and clean abdominal incision Physician Criminal Defense Attorney note has been reviewed by physician. Signing provider agrees with the documented findings, assessment, and plan of care. Past Medical History Past Medical History: COPD, CVA/TIA, Diabetes Mellitus, Deep Vein Thrombosis (DVT), GERD/Reflux, Hyperlipidemia, Hypertension Additional Past Medical History / Comment(s): CVA 2019- expressive aphasia; 2 DVT's; diverticulitis; hernia History of Any Multi-Drug Resistant Organisms: MRSA Year Discovered:: 09/03/23 MDRO Source:: Groin Past Surgical History: Bowel Resection Additional Past Surgical History / Comment(s): IVC FILTER 2013. ileostomy. wound vac. ileostomy reversal with hernia repair, with ovary removal-Apr 2024. Past Anesthesia/Blood Transfusion Reactions: No Reported Reaction Past Psychological History: Depression, PTSD Smoking Status: Current every day smoker Past Alcohol Use History: None Reported Past Drug Use History: None Reported Medications and Allergies Home Medications Medication Instructions Recorded Confirmed Type Insulin Glargine,Hum.rec.anlog 42 unit SQ DAILY 08/04/21 07/17/24 History [Lantus Solostar Pen] hydroCHLOROthiazide [Hydrodiuril] 12.5 mg PO DAILY 08/04/21 07/17/24 History busPIRone HCL 15 mg PO TID 03/14/23 07/17/24 History traZODone HCL 150 mg PO HS 03/14/23 07/17/24 History Gabapentin 800 mg PO TID 3 Days #9 tab 07/12/23 07/17/24 Rx Atorvastatin [Lipitor] 80 mg PO DAILY 08/07/23 07/17/24 History Apixaban [Eliquis] 5 mg PO BID 05/03/24 07/17/24 History Dapagliflozin Propanediol [Farxiga] 5 mg PO DAILY 05/03/24 07/17/24 History Ezetimibe [Zetia] 10 mg PO DAILY 05/03/24 07/17/24 History Famotidine 40 mg PO DAILY 05/03/24 07/17/24 History Venlafaxine HCl [Effexor XR] 150 mg PO DAILY 05/03/24 07/17/24 History cloNIDine HCL 0.05 mg PO BID 05/03/24 07/17/24 History lisinopriL 30 mg PO DAILY 05/03/24 07/17/24 History Ipratropium-Albuterol Nebulize 3 ml INHALATION RT-QID 06/15/24 07/17/24 History [Duoneb 0.5 mg-3 mg/3 ml Soln] HYDROcodone/APAP 10-325MG [[place] 1 tab PO Q8HR PRN 3 Days #9 tab 06/25/24 07/17/24 Rx 10-325] Allergies Allergy/AdvReac Type Severity Reaction Status Date / Time No Known Allergies Allergy Verified 07/17/24 15:31 Surgical - Exam Vital Signs Temp Pulse Resp BP Pulse Ox 99 F 86 18 176/117 98 07/17/24 13:39 07/17/24 13:39 07/17/24 13:39 07/17/24 13:39 07/17/24 13:39 Results - Labs 07/18/24 11:49 07/18/24 06:20 Abnormal Lab Results - Last 24 Hours (Table) 07/17/24 07/17/24 Range/Units 15:05 15:05 PT 9.3 L (10.0-12.5) sec APTT 21.5 L (22.0-30.0) sec Sodium 136 L (137-145) mmol/L Glucose 253 H (74-99) mg/dL ALT 37 H (4-34) U/L Alkaline Phosphatase 156 H (38-126) U/L Diabetes panel 07/17/24 Range/Units 15:05 Sodium 136 L (137-145) mmol/L Potassium 4.4 (3.5-5.1) mmol/L Chloride 105 (98-107) mmol/L Carbon Dioxide 23 (22-30) mmol/L BUN 12 (7-17) mg/dL Creatinine 0.75 (0.52-1.04) mg/dL Glucose 253 H (74-99) mg/dL Calcium 9.5 (8.4-10.2) mg/dL AST 26 (14-36) U/L ALT 37 H (4-34) U/L Alkaline Phosphatase 156 H (38-126) U/L Total Protein 7.8 (6.3-8.2) g/dL Albumin 4.4 (3.5-5.0) g/dL Calcium panel 07/17/24 Range/Units 15:05 Calcium 9.5 (8.4-10.2) mg/dL Albumin 4.4 (3.5-5.0) g/dL Pituitary panel 07/17/24 Range/Units 15:05 Sodium 136 L (137-145) mmol/L Potassium 4.4 (3.5-5.1) mmol/L Chloride 105 (98-107) mmol/L Carbon Dioxide 23 (22-30) mmol/L BUN 12 (7-17) mg/dL Creatinine 0.75 (0.52-1.04) mg/dL Glucose 253 H (74-99) mg/dL Calcium 9.5 (8.4-10.2) mg/dL Adrenal panel 07/17/24 Range/Units 15:05 Sodium 136 L (137-145) mmol/L Potassium 4.4 (3.5-5.1) mmol/L Chloride 105 (98-107) mmol/L Carbon Dioxide 23 (22-30) mmol/L BUN 12 (7-17) mg/dL Creatinine 0.75 (0.52-1.04) mg/dL Glucose 253 H (74-99) mg/dL Calcium 9.5 (8.4-10.2) mg/dL Total Bilirubin 0.9 (0.2-1.3) mg/dL AST 26 (14-36) U/L ALT 37 H (4-34) U/L Alkaline Phosphatase 156 H (38-126) U/L Total Protein 7.8 (6.3-8.2) g/dL Albumin 4.4 (3.5-5.0) g/dL
[2024-07-18] MEDS: polyethylene glycoL 3350 17 GM POWD.PACK PO SCH (17:02)
[2024-07-18 17:51] LABS: Glucose,Whole Blood 238 mg/dL (70-110)
[2024-07-18 20:33] LABS: Glucose,Whole Blood 201 mg/dL (70-110)
[2024-07-19 06:14] LABS: Glucose,Whole Blood 188 mg/dL (70-110)
[2024-07-19] MEDS ORDERED: LACTULOSE 20 GM/30 ML CUP PO PRN (08:49)
[2024-07-19 10:40] LABS: HCT 36.6 % (37.2-46.3); HGB 11.9 g/dL (12.0-15.0); MCH 29.9 pg (27.0-32.0); MCHC 32.5 g/dL (32.0-37.0); Mean Platelet Volume 10.5 FL (9.5-12.2); NRBC Per 100 WBC 0 X 10*3/uL (0.00-0.01); Platelet Count 201 X 10*3/uL (140-440); RBC 3.98 X 10*6/uL (4.10-5.20); RDW 14.8 % (11.5-14.5); WBC 8.66 X 10*3/uL (4.50-10.00)
--- NOTE | 2024-07-19 11:03 | P.PN ---
Subjective Progress Note Date: 07/19/24 Principal diagnosis: Abdominal pain Patient says her pain today is about the same. She is having bowel function. Denies nausea or vomiting. Was seen by vascular surgery. Still having some serous drainage from her abdominal wound site. CAT scan results noted. She is afebrile. Objective - Vital Signs Vital signs: Vital Signs Temp 97.6 F 07/19/24 07:03 Pulse 72 07/19/24 08:35 Resp 18 07/19/24 07:03 BP 136/74 07/19/24 07:03 Pulse Ox 93 L 07/19/24 07:03 FiO2 Intake & Output 07/18/24 07/19/24 07/19/24 18:59 06:59 18:59 Intake Total 5 Balance 5 Weight 72.575 kg Intake: Oral 5 Other: Voiding Method Toilet - Exam Abdomen: Soft, nondistended, incision with a small 1.5 x 2 cm open wound, some serous drainage, no erythema, mild tenderness there - Labs CBC & Chem 7: 07/19/24 02:48 07/18/24 06:20 Labs: Abnormal Lab Results - Last 24 Hours (Table) 07/18/24 07/18/24 07/19/24 Range/Units 17:46 20:31 02:48 RBC 3.98 L (4.10-5.20) X 10*6/uL Hgb 11.9 L (12.0-15.0) g/dL Hct 36.6 L (37.2-46.3) % RDW 14.8 H (11.5-14.5) % POC Glucose (mg/dL) 238 H 201 H (70-110) mg/dL 07/19/24 Range/Units 06:12 RBC (4.10-5.20) X 10*6/uL Hgb (12.0-15.0) g/dL Hct (37.2-46.3) % RDW (11.5-14.5) % POC Glucose (mg/dL) 188 H (70-110) mg/dL Assessment and Plan (1) Abdominal pain Narrative/Plan: 54-year-old female with abdominal wound and associated pains. Begin wound care with Aquacel silver. Patient is afebrile with normal white blood cell count. No erythema. Patient completed outpatient course of oral antibiotics. No antibiotics ordered currently. Will monitor closely. Current Visit: Yes Status: Acute Code(s): R10.9 - UNSPECIFIED ABDOMINAL PAIN SNOMED Code(s): 21436581
[2024-07-19 11:43] LABS: ALT 31 U/L (8-44); AST 27 U/L (13-35); Albumin 3.8 g/dL (3.8-4.9); Albumin/Globulin Ratio 1.52 Ratio (1.60-3.17); Alkaline Phosphatase 149 U/L (41-126); BUN/Creat Ratio 34.67 Ratio (12.00-20.00); Blood Urea Nitrogen 20.8 mg/dL (9.0-27.0); Calcium 9.1 mg/dL (8.7-10.3); Carbon Dioxide 21.7 mmol/L (21.6-31.8); Chloride 102 mmol/L (96-109); Globulin 2.5 g/dL (1.6-3.3); Glucose 158 mg/dL (70-110); Potassium 3.7 mmol/L (3.5-5.5); Sodium 137 mmol/L (135-145); Total Bilirubin 0.5 mg/dL (0.3-1.2); Total Protein 6.3 g/dL (6.2-8.2)
[2024-07-19 12:15] LABS: Glucose,Whole Blood 144 mg/dL (70-110)
[2024-07-19 12:58] LABS: Erythrocyte Sedimentation Rate 37 mm/Hr (0-30)
--- NOTE | 2024-07-19 14:23 | P.PN ---
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 She presented to the hospital on 07/17/2024 with a chief complaint of intractable abdominal pain. Upon arrival to our facility, patient underwent evaluation in the emergency department. Vital signs upon arrival show blood pressure 176/117, heart rate 86, respiratory rate 18, temp 99.0 F, and SpO2 of 98% on room air. Labs completed and reviewed. CBC unremarkable. Coagulation profile showing low PT of 9.3 and PTT of 21.5. BMP showing elevated blood glucose of 253. Liver profile showing elevated AST of 37 and alkaline phosphatase of 156. Amylase and lipase normal findings. CT abdomen and pelvis showing postsurgical changes with phlegmonous changes/gas and decrease in size of fluid collection from previous 36 x 23 mm down to 22 x 11 mm, small bowel feces left abdomen concerning for fecal stasis, hepatic steatosis, and occlusion of the distal IVC below the level of the IVC filter with collateral pathways extending up from the right inguinal region to the anterior abdominal wall. Patient admitted under our services with consultation to general surgery and vascular surgery for evaluation. Physical exam: Patient seen and fully evaluated at bedside this morning. Patient reports pain is slightly better than yesterday but remains to mid abdomen. She does report having 1 bowel movement this morning. She remains on Reglan 10 mg every 6 hours. Vital signs reviewed and stable. General: Nontoxic, no distress and appears stated age. Derm: Skin warm and dry, normal coloration for ethnicity. Head: Atraumatic, normocephalic and symmetric. Eyes: EOM's intact, no lid lag, and anicteric sclera Mouth: no lip lesions, mucus membranes moist Cardiovascular: regular rate and rhythm with normal S1S2, no murmur, positive posterior tibial pulses bilaterally, and cap refill < 2 seconds. Lungs: Respirations even, regular, and unlabored on room air. Lungs CTA bilaterally, no rhonchi, no rales, no wheezing, and no accessory muscle usage. Abdominal: soft, slightly distended with tenderness upon palpation patient to abdomen and left upper quadrant, no guarding, no appreciable organomegaly. Dressing in place to mid abdomen from previous colostomy reversal with dressing in place secondary to continued postsurgical drainage, no surrounding erythema. Ext: ROM intact. No gross muscle atrophy, no edema, no contractures Neuro: Speech clear, face symmetrical and CN II-XII grossly intact with no noted focal neuro deficits Psych: Alert and oriented to person, place, time, and situation. Appropriate and pleasant affect. Assessment and Plan of Care: Intractable abdominal pain Fecal stasis, improving after starting on Reglan patient reports 1 bowel movement this morning Status post reversal of colostomy, repair of incisional hernia, and repair of parastomal hernia on 05/26/2024 Nonhealing abdominal wound at surgical site Postoperative seroma, appears to be improving/decreasing in size -CT abdomen and pelvis showing postsurgical changes with phlegmonous changes/gas and decrease in size of fluid collection from previous 36 x 23 mm down to 22 x 11 mm, small bowel feces left abdomen concerning for fecal stasis, and hepatic steatosis. -General Surgery following, stating since patient's reports of abdominal pain co ntinues, recommending continuation of monitoring and to begin wound care with Aquacel silver. Stated patient completed outpatient course of antibiotics no need for further antibiotics at this time as patient remains afebrile with normal WBC count. -Continue Reglan 10 mg IVP every 6 hours for treatment of nausea as well as attempts to facilitate bowel function and improved/resolve fecal stasis. -Continue symptomatic care and pain management. -Continue with abdominal postsurgical wound dressing changes and begin wound care with Aquacel silver as instructed by general surgery team. Occlusion of distal IVC, likely chronic -CT abdomen and pelvis incidentally showing occlusion of the distal IVC below the level of the IVC filter with collateral pathways extending up from the right inguinal region to the anterior abdominal wall. -Vascular surgery evaluated, stated of distal IVC not source of patient's abdominal pain and agreed that this is likely chronic and no further workup from vascular surgical standpoint at this time. Insulin-dependent diabetes mellitus with hyperglycemia -Continue Levemir 42 units daily along with glycemic protocol with NovoLog sliding scale. History of DVTs on anticoagulation with Eliquis -Continue anticoagulation with Eliquis 5 mg twice daily. History of CVA with residual aphasia -Continue atorvastatin 80 mg daily. Hypertension -Continue clonidine 0.05 mg twice daily, hydrochlorothiazide 12.5 mg daily, and lisinopril 30 mg daily. Hyperlipidemia -Continue atorvastatin 80 mg daily. Depression -Continue daily medication regimen with Effexor 150 mg daily, trazodone 150 mg nightly, and BuSpar 15 mg 3 times daily. Data and imaging reviewed: -Vital signs reviewed. Blood pressure 136/74, heart rate 78, respiratory rate 18, temp 97.6 F, and SpO2 of 93% on room air. -Morning labs reviewed. CBC showing stable normocytic anemia with hemoglobin of 11.9. ESR elevated at 37 and CRP elevated at 1.20. CODE STATUS: Full code DVT prophylaxis: Iraqujuan manuel Discussed with: Patient, RN, general surgery PA, and vascular surgery PLANNING ANALYST Anticipated discharge date: Pending clinical course Anticipated discharge place: Home Patient was seen independently by Nurse Pracitioner. This document was prepared using [employer] dictation software. Please allow for errors in millinery designer, while rare they do occur. Thom Medrano NP rendered care for this patient independently, reviewed the findings and plan as documented in the note above and agree with plan. I did not physically speak with or examine the patient on this date. Objective - Vital Signs Vital signs: Vital Signs Temp 97.6 F 07/19/24 07:03 Pulse 72 07/19/24 08:35 Resp 18 07/19/24 07:03 BP 136/74 07/19/24 07:03 Pulse Ox 93 L 07/19/24 07:03 FiO2 Intake & Output 07/18/24 07/19/24 07/19/24 18:59 06:59 18:59 Intake Total 5 Balance 5 Weight 72.575 kg Intake: Oral 5 Other: Voiding Method Toilet - Labs CBC & Chem 7: 07/19/24 02:48 07/19/24 02:48 Labs: Abnormal Lab Results - Last 24 Hours (Table) 07/18/24 07/18/24 07/18/24 Range/Units 08:59 17:46 20:31 POC Glucose (mg/dL) 206 H 238 H 201 H (70-110) mg/dL 07/19/24 Range/Units 06:12 POC Glucose (mg/dL) 188 H (70-110) mg/dL
[2024-07-19 16:58] LABS: Glucose,Whole Blood 233 mg/dL (70-110)
[2024-07-19 22:22] LABS: Glucose,Whole Blood 166 mg/dL (70-110)
[2024-07-20 06:03] LABS: Glucose,Whole Blood 170 mg/dL (70-110)
--- NOTE | 2024-07-20 11:18 | P.PN ---
Subjective Progress Note Date: 07/20/24 Principal diagnosis: Abdominal pain Patient says she feels about the same. She had 2 bowel movements yesterday. Tolerating diet. Mild abdominal discomforts. No fevers. Objective - Vital Signs Vital signs: Vital Signs Temp 97.3 F L 07/20/24 06:57 Pulse 84 07/20/24 09:19 Resp 18 07/20/24 06:57 BP 120/78 07/20/24 06:57 Pulse Ox 90 L 07/20/24 06:57 FiO2 Intake & Output 07/19/24 07/20/24 07/20/24 18:59 06:59 18:59 Other: Voiding Method Toilet Toilet # Voids 3 # Bowel Movements 2 - Exam Abdomen: Soft, nondistended, open wound mid abdomen along incision measuring 1.5 cm, some serous drainage, no erythema - Labs CBC & Chem 7: 07/19/24 02:48 07/19/24 02:48 Labs: Abnormal Lab Results - Last 24 Hours (Table) 07/19/24 07/19/24 07/19/24 Range/Units 02:48 02:48 12:14 ESR 37 H (0-30) mm/Hr Anion Gap 13.30 H (4.00-12.00) mmol/L BUN/Creatinine Ratio 34.67 H (12.00-20.00) Ratio Glucose 158 H (70-110) mg/dL POC Glucose (mg/dL) 144 H (70-110) mg/dL Alkaline Phosphatase 149 H (41-126) U/L Albumin/Globulin Ratio 1.52 L (1.60-3.17) Ratio 07/19/24 07/19/24 07/20/24 Range/Units 16:57 22:21 06:02 ESR (0-30) mm/Hr Anion Gap (4.00-12.00) mmol/L BUN/Creatinine Ratio (12.00-20.00) Ratio Glucose (70-110) mg/dL POC Glucose (mg/dL) 233 H 166 H 170 H (70-110) mg/dL Alkaline Phosphatase (41-126) U/L Albumin/Globulin Ratio (1.60-3.17) Ratio Microbiology - Last 24 Hours (Table) 07/18/24 08:46 Blood Culture - Preliminary Blood Assessment and Plan (1) Abdominal pain Narrative/Plan: Continue local wound care with Aquacel silver. Continue diet as tolerated. Current Visit: Yes Status: Acute Code(s): R10.9 - UNSPECIFIED ABDOMINAL PAIN SNOMED Code(s): 41587285
[2024-07-20 12:05] LABS: Glucose,Whole Blood 141 mg/dL (70-110)
[2024-07-20 16:38] LABS: Glucose,Whole Blood 113 mg/dL (70-110)
--- NOTE | 2024-07-20 17:52 | P.PN ---
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 She presented to the hospital on 07/17/2024 with a chief complaint of intractable abdominal pain. Upon arrival to our facility, patient underwent evaluation in the emergency department. Vital signs upon arrival show blood pressure 176/117, heart rate 86, respiratory rate 18, temp 99.0 F, and SpO2 of 98% on room air. Labs completed and reviewed. CBC unremarkable. Coagulation profile showing low PT of 9.3 and PTT of 21.5. BMP showing elevated blood glucose of 253. Liver profile showing elevated AST of 37 and alkaline phosphatase of 156. Amylase and lipase normal findings. CT abdomen and pelvis showing postsurgical changes with phlegmonous changes/gas and decrease in size of fluid collection from previous 36 x 23 mm down to 22 x 11 mm, small bowel feces left abdomen concerning for fecal stasis, hepatic steatosis, and occlusion of the distal IVC below the level of the IVC filter with collateral pathways extending up from the right inguinal region to the anterior abdominal wall. Patient admitted under our services with consultation to general surgery and vascular surgery for evaluation. Physical exam: Patient seen and fully evaluated at bedside this morning. Patient reports pain remains unchanged from yesterday. She reports having bowel movements and is tolerating oral intake. Patient reports she is concerned because she cannot handle the pain in her mid abdomen. Patient reports it continues to be unbearable at times to the point she cannot even walk or sit up. Awaiting further recommendations from general surgeon. Vital signs reviewed and stable. General: Nontoxic, no distress and appears stated age. Derm: Skin warm and dry, normal coloration for ethnicity. Head: Atraumatic, normocephalic and symmetric. Eyes: EOM's intact, no lid lag, and anicteric sclera Mouth: no lip lesions, mucus membranes moist Cardiovascular: regular rate and rhythm with normal S1S2, no murmur, positive posterior tibial pulses bilaterally, and cap refill < 2 seconds. Lungs: Respirations even, regular, and unlabored on room air. Lungs CTA bilaterally, no rhonchi, no rales, no wheezing, and no accessory muscle usage. Abdominal: soft, slightly distended with tenderness upon palpation patient to abdomen and left upper quadrant, no guarding, no appreciable organomegaly. Dressing in place to mid abdomen from previous colostomy reversal with dressing in place secondary to continued postsurgical drainage, no surrounding erythema. Ext: ROM intact. No gross muscle atrophy, no edema, no contractures Neuro: Speech clear, face symmetrical and CN II-XII grossly intact with no noted focal neuro deficits Psych: Alert and oriented to person, place, time, and situation. Appropriate and pleasant affect. Assessment and Plan of Care: Intractable abdominal pain Fecal stasis, improving after starting on Reglan patient reports 1 bowel moveme nt this morning Status post reversal of colostomy, repair of incisional hernia, and repair of parastomal hernia on 05/26/2024 Nonhealing abdominal wound at surgical site Postoperative seroma, appears to be improving/decreasing in size -CT abdomen and pelvis showing postsurgical changes with phlegmonous changes/gas and decrease in size of fluid collection from previous 36 x 23 mm down to 22 x 11 mm, small bowel feces left abdomen concerning for fecal stasis, and hepatic steatosis. -General Surgery following, stating since patient's reports of abdominal pain continues, recommending continuation of monitoring and to continue wound care with Aquacel silver. Stated patient completed outpatient course of antibiotics no need for further antibiotics at this time as patient remains afebrile with normal WBC count. -Continue Reglan 10 mg IVP every 6 hours for treatment of nausea as well as attempts to facilitate bowel function and improved/resolve fecal stasis. -Continue symptomatic care and pain management. -Continue with abdominal postsurgical wound dressing changes and begin wound care with Aquacel silver as instructed by general surgery team. Occlusion of distal IVC, likely chronic -CT abdomen and pelvis incidentally showing occlusion of the distal IVC below the level of the IVC filter with collateral pathways extending up from the right inguinal region to the anterior abdominal wall. -Vascular surgery evaluated, stated of distal IVC not source of patient's abdominal pain and agreed that this is likely chronic and no further workup from vascular surgical standpoint at this time. Insulin-dependent diabetes mellitus with hyperglycemia -Continue Levemir 42 units daily along with glycemic protocol with NovoLog sliding scale. History of DVTs on anticoagulation with Eliquis -Continue anticoagulation with Eliquis 5 mg twice daily. History of CVA with residual aphasia -Continue atorvastatin 80 mg daily. Hypertension -Continue clonidine 0.05 mg twice daily, hydrochlorothiazide 12.5 mg daily, and lisinopril 30 mg daily. Hyperlipidemia -Continue atorvastatin 80 mg daily. Depression -Continue daily medication regimen with Effexor 150 mg daily, trazodone 150 mg nightly, and BuSpar 15 mg 3 times daily. Data and imaging reviewed: -Vital signs reviewed. Blood pressure 120/78, heart rate 69, respiratory rate 18, temp 97.3 F, and SpO2 of 90% on room air. -Morning labs reviewed. CBC showing stable normocytic anemia with hemoglobin of 11.9. ESR elevated at 37 and CRP elevated at 1.20. Blood culture showing no growth to date. CODE STATUS: Full code DVT prophylaxis: Iraqujuan manuel Discussed with: Patient, RN, general surgery PA, and vascular surgery RELEASE AND TECHNICAL RECORDS CLERK Anticipated discharge date: Pending general surgery clearance for discharge Anticipated discharge place: Home Patient was seen independently by Nurse Pracitioner. This document was prepared using [employer] dictation software. Please allow for errors in teacher resource, while rare they do occur. Thom Medrano NP rendered care for this patient independently, reviewed the findings and plan as documented in the note above and agree with plan. I did not physically speak with or examine the patient on this date. Objective - Vital Signs Vital signs: Vital Signs Temp 97.3 F L 07/20/24 06:57 Pulse 69 07/20/24 06:57 Resp 18 07/20/24 06:57 BP 120/78 07/20/24 06:57 Pulse Ox 90 L 07/20/24 06:57 FiO2 Intake & Output 07/19/24 07/20/24 07/20/24 18:59 06:59 18:59 Other: Voiding Method Toilet Toilet # Voids 3 # Bowel Movements 2 - Labs CBC & Chem 7: 07/19/24 02:48 07/19/24 02:48 Labs: Abnormal Lab Results - Last 24 Hours (Table) 07/19/24 07/19/24 07/19/24 Range/Units 02:48 02:48 12:14 RBC 3.98 L (4.10-5.20) X 10*6/uL Hgb 11.9 L (12.0-15.0) g/dL Hct 36.6 L (37.2-46.3) % RDW 14.8 H (11.5-14.5) % ESR 37 H (0-30) mm/Hr Anion Gap 13.30 H (4.00-12.00) mmol/L BUN/Creatinine Ratio 34.67 H (12.00-20.00) Ratio Glucose 158 H (70-110) mg/dL POC Glucose (mg/dL) 144 H (70-110) mg/dL Alkaline Phosphatase 149 H (41-126) U/L C-Reactive Protein 1.20 H (0.00-0.80) mg/dL Albumin/Globulin Ratio 1.52 L (1.60-3.17) Ratio 07/19/24 07/19/24 07/20/24 Range/Units 16:57 22:21 06:02 RBC (4.10-5.20) X 10*6/uL Hgb (12.0-15.0) g/dL Hct (37.2-46.3) % RDW (11.5-14.5) % ESR (0-30) mm/Hr Anion Gap (4.00-12.00) mmol/L BUN/Creatinine Ratio (12.00-20.00) Ratio Glucose (70-110) mg/dL POC Glucose (mg/dL) 233 H 166 H 170 H (70-110) mg/dL Alkaline Phosphatase (41-126) U/L C-Reactive Protein (0.00-0.80) mg/dL Albumin/Globulin Ratio (1.60-3.17) Ratio Microbiology - Last 24 Hours (Table) 07/18/24 08:46 Blood Culture - Preliminary Blood
[2024-07-20 20:06] LABS: Glucose,Whole Blood 236 mg/dL (70-110)
[2024-07-21 06:10] LABS: Glucose,Whole Blood 176 mg/dL (70-110)
[2024-07-21 09:12] LABS: HCT 39.3 % (37.2-46.3); HGB 12.6 g/dL (12.0-15.0); MCH 30.2 pg (27.0-32.0); MCHC 32.1 g/dL (32.0-37.0); MCV 94.2 FL (80.0-97.0); Mean Platelet Volume 10.9 FL (9.5-12.2); NRBC Per 100 WBC 0 X 10*3/uL (0.00-0.01); Platelet Count 187 X 10*3/uL (140-440); RBC 4.17 X 10*6/uL (4.10-5.20); RDW 14.8 % (11.5-14.5); WBC 5.68 X 10*3/uL (4.50-10.00)
[2024-07-21 11:13] LABS: Erythrocyte Sedimentation Rate 34 mm/Hr (0-30)
[2024-07-21 11:16] LABS: Magnesium 2.1 mg/dL (1.5-2.4)
[2024-07-21 12:22] LABS: Glucose,Whole Blood 176 mg/dL (70-110)
[2024-07-21 12:52] LABS: ALT 41 U/L (8-44); AST 42 U/L (13-35); Albumin 3.8 g/dL (3.8-4.9); Albumin/Globulin Ratio 1.31 Ratio (1.60-3.17); Alkaline Phosphatase 171 U/L (41-126); BUN/Creat Ratio 29.71 Ratio (12.00-20.00); Blood Urea Nitrogen 20.8 mg/dL (9.0-27.0); Calcium 9.3 mg/dL (8.7-10.3); Carbon Dioxide 18.5 mmol/L (21.6-31.8); Chloride 103 mmol/L (96-109); Globulin 2.9 g/dL (1.6-3.3); Glucose 144 mg/dL (70-110); Potassium 4.4 mmol/L (3.5-5.5); Sodium 138 mmol/L (135-145); Total Bilirubin 0.5 mg/dL (0.3-1.2); Total Protein 6.7 g/dL (6.2-8.2)
--- NOTE | 2024-07-21 13:57 | P.PN ---
Subjective Progress Note Date: 07/21/24 SURGICAL PROGRESS NOTE CHIEF COMPLAINT: Abdominal pain HISTORY OF PRESENT ILLNESS: Patient reports she is feeling better since admission. She is still requiring IV pain medication. She is having bowel m ovements. Denies any nausea or vomiting. Afebrile. WBC 5.68 Patient seen and examined with Dr. Lewis PHYSICAL EXAM: VITAL SIGNS: Reviewed. GENERAL: Well-developed in no acute distress. ABDOMEN: Soft. Nondistended. Mild tenderness at incision site. Mid abdomen open wound with serous drainage. No erythema. Granulation tissue noted. NEUROLOGIC: Alert and oriented. Cranial nerves II through XII grossly intact. ASSESSMENT: 1. Abdominal pain likely musculoskeletal due to patient raking leaves outside 2. Abdominal incision wound 3. Constipation PLAN: -Continue regular diet -Continue local wound care -Continue pain management -Anticipate discharge tomorrow Physician Cloth Washer Back Tender note has been reviewed by physician. Signing provider agrees with the documented findings, assessment, and plan of care. Objective - Vital Signs Vital signs: Vital Signs Temp 97.6 F 07/21/24 07:52 Pulse 68 07/21/24 12:57 Resp 16 07/21/24 07:52 BP 133/84 07/21/24 07:52 Pulse Ox 95 07/21/24 07:52 FiO2 Intake & Output 07/20/24 07/21/24 07/21/24 18:59 06:59 18:59 Intake Total 480 Balance 480 Intake: Oral 480 Other: Voiding Method Toilet # Voids 4 # Bowel Movements 2 - Labs CBC & Chem 7: 07/21/24 02:45 07/21/24 02:45 Labs: Abnormal Lab Results - Last 24 Hours (Table) 07/20/24 07/20/24 07/21/24 Range/Units 16:37 20:05 02:45 RDW 14.8 H (11.5-14.5) % ESR 34 H (0-30) mm/Hr Carbon Dioxide (21.6-31.8) mmol/L Anion Gap (4.00-12.00) mmol/L BUN/Creatinine Ratio (12.00-20.00) Ratio Glucose (70-110) mg/dL POC Glucose (mg/dL) 113 H 236 H (70-110) mg/dL AST (13-35) U/L Alkaline Phosphatase (41-126) U/L C-Reactive Protein (0.00-0.80) mg/dL Albumin/Globulin Ratio (1.60-3.17) Ratio 07/21/24 07/21/24 07/21/24 Range/Units 02:45 06:09 12:20 RDW (11.5-14.5) % ESR (0-30) mm/Hr Carbon Dioxide 18.5 L (21.6-31.8) mmol/L Anion Gap 16.50 H (4.00-12.00) mmol/L BUN/Creatinine Ratio 29.71 H (12.00-20.00) Ratio Glucose 144 H (70-110) mg/dL POC Glucose (mg/dL) 176 H 176 H (70-110) mg/dL AST 42 H (13-35) U/L Alkaline Phosphatase 171 H (41-126) U/L C-Reactive Protein 2.10 H (0.00-0.80) mg/dL Albumin/Globulin Ratio 1.31 L (1.60-3.17) Ratio Microbiology - Last 24 Hours (Table) 07/18/24 08:46 Blood Culture - Preliminary Blood
[2024-07-21 16:24] LABS: Glucose,Whole Blood 238 mg/dL (70-110)
--- NOTE | 2024-07-21 17:55 | P.PN ---
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 She presented to the hospital on 07/17/2024 with a chief complaint of intractable abdominal pain. Upon arrival to our facility, patient underwent evaluation in the emergency department. Vital signs upon arrival show blood pressure 176/117, heart rate 86, respiratory rate 18, temp 99.0 F, and SpO2 of 98% on room air. Labs completed and reviewed. CBC unremarkable. Coagulation profile showing low PT of 9.3 and PTT of 21.5. BMP showing elevated blood glucose of 253. Liver profile showing elevated AST of 37 and alkaline phosphatase of 156. Amylase and lipase normal findings. CT abdomen and pelvis showing postsurgical changes with phlegmonous changes/gas and decrease in size of fluid collection from previous 36 x 23 mm down to 22 x 11 mm, small bowel feces left abdomen concerning for fecal stasis, hepatic steatosis, and occlusion of the distal IVC below the level of the IVC filter with collateral pathways extending up from the right inguinal region to the anterior abdominal wall. Patient admitted under our services with consultation to general surgery and vascular surgery for evaluation. Physical exam: Patient seen and fully evaluated at bedside this morning. Patient reports pain remains unchanged from yesterday. She reports having bowel movements and is tolerating oral intake. She continues to express her concerns of uncontrolled abdominal pain and continues to require IV pain management. Vital signs reviewed and stable. General: Nontoxic, no distress and appears stated age. Derm: Skin warm and dry, normal coloration for ethnicity. Head: Atraumatic, normocephalic and symmetric. Eyes: EOM's intact, no lid lag, and anicteric sclera Mouth: no lip lesions, mucus membranes moist Cardiovascular: regular rate and rhythm with normal S1S2, no murmur, positive posterior tibial pulses bilaterally, and cap refill < 2 seconds. Lungs: Respirations even, regular, and unlabored on room air. Lungs CTA bilaterally, no rhonchi, no rales, no wheezing, and no accessory muscle usage. Abdominal: soft, slightly distended with tenderness upon palpation patient to abdomen and left upper quadrant, no guarding, no appreciable organomegaly. Dressing in place to mid abdomen from previous colostomy reversal with dressing in place secondary to continued postsurgical drainage, no surrounding erythema. Ext: ROM intact. No gross muscle atrophy, no edema, no contractures Neuro: Speech clear, face symmetrical and CN II-XII grossly intact with no noted focal neuro deficits Psych: Alert and oriented to person, place, time, and situation. Appropriate and pleasant affect. Assessment and Plan of Care: Intractable abdominal pain Fecal stasis, improving after starting on Reglan patient reports 1 bowel movement this morning Status post reversal of colostomy, repair of incisional hernia, and repair of parastomal hernia on 05/26/2024 Nonhealing abdominal wound at surgical site Postoperative seroma, appears to be improving/decreasing in size -CT abdomen and pelvis showing postsurgical changes with phlegmonous changes/gas and decrease in size of fluid collection from previous 36 x 23 mm down to 22 x 11 mm, small bowel feces left abdomen concerning for fecal stasis, and hepatic steatosis. -General Surgery following, discussed plan of care with general surgery PA and was instructed that general surgeon stated to hold patient an additional day as she is still requiring IV pain management. -Continue Reglan 10 mg IVP every 6 hours for treatment of nausea as well as attempts to facilitate bowel function and improved/resolve fecal stasis. -Continue symptomatic care and pain management. -Continue with abdominal postsurgical wound dressing changes and begin wound care with Aquacel silver as instructed by general surgery team. -CRP worsening previously 1.20 now 2.10 and ESR unchanged at 34. Occlusion of distal IVC, likely chronic -CT abdomen and pelvis incidentally showing occlusion of the distal IVC below the level of the IVC filter with collateral pathways extending up from the right inguinal region to the anterior abdominal wall. -Vascular surgery evaluated, stated of distal IVC not source of patient's abdominal pain and agreed that this is likely chronic and no further workup from vascular surgical standpoint at this time. Insulin-dependent diabetes mellitus with hyperglycemia -Continue Levemir 42 units daily along with glycemic protocol with NovoLog sliding scale. History of DVTs on anticoagulation with Eliquis -Continue anticoagulation with Eliquis 5 mg twice daily. History of CVA with residual aphasia -Continue atorvastatin 80 mg daily. Hypertension -Continue clonidine 0.05 mg twice daily, hydrochlorothiazide 12.5 mg daily, and lisinopril 30 mg daily. Hyperlipidemia -Continue atorvastatin 80 mg daily. Depression -Continue daily medication regimen with Effexor 150 mg daily, trazodone 150 mg n ightly, and BuSpar 15 mg 3 times daily. Data and imaging reviewed: -Vital signs reviewed. Blood pressure 133/84, heart rate 63, respiratory rate 16, temp 97.6 F, and SpO2 of 95% on room air -Morning labs reviewed. CBC unremarkable. BMP showing high anion gap metabolic acidosis with chloride of 103, bicarb of 18.5, and anion gap of 16.50. Blood glucose 144. Magnesium 2.1. Liver profile showing elevated AST of 42 and ALT of 171. ESR 34 and CRP 2.10. CODE STATUS: Full code DVT prophylaxis: Eliquis Discussed with: Patient, RN, general surgery PA, and vascular surgery POWER SHOVEL OPERATOR HELPER Anticipated discharge date: Pending general surgery clearance for discharge Anticipated discharge place: Home Patient was seen independently by Nurse Pracitioner. This document was prepared using [employer] dictation software. Please allow for errors in faro dealer, while rare they do occur. Thom Medrano NP rendered care for this patient independently, reviewed the findings and plan as documented in the note above and agree with plan. I did not physically speak with or examine the patient on this date. Objective - Vital Signs Vital signs: Vital Signs Temp 97.6 F 07/21/24 07:52 Pulse 68 07/21/24 12:57 Resp 16 07/21/24 07:52 BP 133/84 07/21/24 07:52 Pulse Ox 95 07/21/24 07:52 FiO2 Intake & Output 07/20/24 07/21/24 07/21/24 18:59 06:59 18:59 Intake Total 480 Balance 480 Intake: Oral 480 Other: Voiding Method Toilet # Voids 4 # Bowel Movements 2 - Labs CBC & Chem 7: 07/21/24 02:45 07/21/24 02:45 Labs: Abnormal Lab Results - Last 24 Hours (Table) 07/20/24 07/20/24 07/21/24 Range/Units 16:37 20:05 02:45 RDW 14.8 H (11.5-14.5) % ESR 34 H (0-30) mm/Hr Carbon Dioxide (21.6-31.8) mmol/L Anion Gap (4.00-12.00) mmol/L BUN/Creatinine Ratio (12.00-20.00) Ratio Glucose (70-110) mg/dL POC Glucose (mg/dL) 113 H 236 H (70-110) mg/dL AST (13-35) U/L Alkaline Phosphatase (41-126) U/L C-Reactive Protein (0.00-0.80) mg/dL Albumin/Globulin Ratio (1.60-3.17) Ratio 07/21/24 07/21/24 07/21/24 Range/Units 02:45 06:09 12:20 RDW (11.5-14.5) % ESR (0-30) mm/Hr Carbon Dioxide 18.5 L (21.6-31.8) mmol/L Anion Gap 16.50 H (4.00-12.00) mmol/L BUN/Creatinine Ratio 29.71 H (12.00-20.00) Ratio Glucose 144 H (70-110) mg/dL POC Glucose (mg/dL) 176 H 176 H (70-110) mg/dL AST 42 H (13-35) U/L Alkaline Phosphatase 171 H (41-126) U/L C-Reactive Protein 2.10 H (0.00-0.80) mg/dL Albumin/Globulin Ratio 1.31 L (1.60-3.17) Ratio Microbiology - Last 24 Hours (Table) 07/18/24 08:46 Blood Culture - Preliminary Blood
[2024-07-21 20:44] LABS: Glucose,Whole Blood 285 mg/dL (70-110)
[2024-07-22 06:41] LABS: Glucose,Whole Blood 158 mg/dL (70-110)
[2024-07-22 09:17] VITALS: RESP 17; TEMP 97.5
--- NOTE | 2024-07-22 11:17 | P.PAINCN ---
History of Present Illness - History of Present Illness 54-year-old female recent abdominal surgery admitted to the hospital with abdo nataliya wall .pain pain management consultation is being requested for abdominal wall pain management. Past Medical History Past Medical History: COPD, CVA/TIA, Diabetes Mellitus, Deep Vein Thrombosis (DVT), GERD/Reflux, Hyperlipidemia, Hypertension Additional Past Medical History / Comment(s): CVA 2020- expressive aphasia; 2 DVT's; diverticulitis; hernia History of Any Multi-Drug Resistant Organisms: MRSA Year Discovered:: 09/03/23 MDRO Source:: Groin Past Surgical History: Bowel Resection Additional Past Surgical History / Comment(s): IVC FILTER 2013. ileostomy. wound vac. ileostomy reversal with hernia repair, with ovary removal-Apr 2024. Past Anesthesia/Blood Transfusion Reactions: No Reported Reaction Past Psychological History: Depression, PTSD Smoking Status: Current every day smoker Past Alcohol Use History: None Reported Additional Past Alcohol Use History / Comment(s): smokes 1/2 ppd since age 18 Past Drug Use History: None Reported Additional Drug Use History / Comment(s): used marijuana on her birthday Medications and Allergies Home Medications Medication Instructions Recorded Confirmed Type Insulin Glargine,Hum.rec.anlog 42 unit SQ DAILY 08/04/21 07/17/24 History [Lantus Solostar Pen] hydroCHLOROthiazide [Hydrodiuril] 12.5 mg PO DAILY 08/04/21 07/17/24 History busPIRone HCL 15 mg PO TID 03/14/23 07/17/24 History traZODone HCL 150 mg PO HS 03/14/23 07/17/24 History Gabapentin 800 mg PO TID 3 Days #9 tab 07/12/23 07/17/24 Rx Atorvastatin [Lipitor] 80 mg PO DAILY 08/07/23 07/17/24 History Apixaban [Eliquis] 5 mg PO BID 05/03/24 07/17/24 History Dapagliflozin Propanediol [Farxiga] 5 mg PO DAILY 05/03/24 07/17/24 History Ezetimibe [Zetia] 10 mg PO DAILY 05/03/24 07/17/24 History Famotidine 40 mg PO DAILY 05/03/24 07/17/24 History Venlafaxine HCl [Effexor XR] 150 mg PO DAILY 05/03/24 07/17/24 History cloNIDine HCL 0.05 mg PO BID 05/03/24 07/17/24 History lisinopriL 30 mg PO DAILY 05/03/24 07/17/24 History Ipratropium-Albuterol Nebulize 3 ml INHALATION RT-QID 06/15/24 07/17/24 History [Duoneb 0.5 mg-3 mg/3 ml Soln] HYDROcodone/APAP 10-325MG [[place] 1 tab PO Q8HR PRN 3 Days #9 tab 06/25/24 07/17/24 Rx 10-325] Allergies Allergy/AdvReac Type Severity Reaction Status Date / Time No Known Allergies Allergy Verified 07/17/24 15:31 Physical Exam Vitals: Vital Signs Temp Pulse Pulse Resp BP Pulse Ox 07/22/24 08:41 85 07/22/24 08:29 83 07/22/24 07:52 97.5 F L 60 17 135/90 95 07/22/24 01:52 97.9 F 63 16 104/74 93 L 07/21/24 20:56 84 07/21/24 20:49 78 07/21/24 19:15 97.7 F 73 17 144/84 94 L 07/21/24 16:26 78 07/21/24 16:13 81 07/21/24 14:25 98 F 86 18 108/74 96 07/21/24 12:57 68 07/21/24 12:45 69 Intake and Output 07/21/24 07/22/24 07/22/24 22:59 06:59 14:59 Other: # Voids 5 1 # Bowel Movements 1 - Gastrointestinal Moderate tenderness in the abdominal wall around the surgical site. - Neurologic Detailed exam is deferred. Results CBC & Chem 7: 07/21/24 02:45 07/21/24 02:45 Labs: Abnormal Lab Results - Last 24 Hours (Table) 07/21/24 07/21/24 07/21/24 Range/Units 02:45 02:45 12:20 ESR 34 H (0-30) mm/Hr Carbon Dioxide 18.5 L (21.6-31.8) mmol/L Anion Gap 16.50 H (4.00-12.00) mmol/L BUN/Creatinine Ratio 29.71 H (12.00-20.00) Ratio Glucose 144 H (70-110) mg/dL POC Glucose (mg/dL) 176 H (70-110) mg/dL AST 42 H (13-35) U/L Alkaline Phosphatase 171 H (41-126) U/L C-Reactive Protein 2.10 H (0.00-0.80) mg/dL Albumin/Globulin Ratio 1.31 L (1.60-3.17) Ratio 07/21/24 07/21/24 07/22/24 Range/Units 16:23 20:43 06:39 ESR (0-30) mm/Hr Carbon Dioxide (21.6-31.8) mmol/L Anion Gap (4.00-12.00) mmol/L BUN/Creatinine Ratio (12.00-20.00) Ratio Glucose (70-110) mg/dL POC Glucose (mg/dL) 238 H 285 H 158 H (70-110) mg/dL AST (13-35) U/L Alkaline Phosphatase (41-126) U/L C-Reactive Protein (0.00-0.80) mg/dL Albumin/Globulin Ratio (1.60-3.17) Ratio Microbiology - Last 24 Hours (Table) 07/18/24 08:46 Blood Culture - Preliminary Blood Assessment and Plan Assessment: Abdominal wall pain. Plan: As patient is on blood thinner which excludes any interventional procedure. Suggestions- 1. Continue gabapentin. 2. OxyContin 10 mg every 12 hours. 3. Percocet 5. 1 pill every 8 hour as needed. 4. Discontinue [place]. PQRS Measure Charge Sheet - Pain Location Abdomen Non-Pharmacological Interventions: Darkened Room, Distraction Pharmacological Interventions: PRN Medication Pain Comment: see prn pain med assessments PQRS Narrative: Smoking Status Current every day smoker Blood Pressure [Left Arm] 135/90 Blood Pressure 157/100 Pain Intensity [Abdomen] 7 Pain Intensity 7 Pain Scale Used Non Verbal Pain Indicator Scale Used Numeric (1 - 10) Home Medications: Ambulatory Orders Insulin Glargine,Hum.rec.anlog [Lantus Solostar Pen] 42 unit SQ DAILY 08/04/21 hydroCHLOROthiazide [Hydrodiuril] 12.5 mg PO DAILY 08/04/21 busPIRone HCL 15 mg PO TID 03/14/23 traZODone HCL 150 mg PO HS 03/14/23 Gabapentin 800 mg PO TID 3 Days #9 tab 07/12/23 Atorvastatin [Lipitor] 80 mg PO DAILY 08/07/23 Apixaban [Eliquis] 5 mg PO BID 05/03/24 Dapagliflozin Propanediol [Farxiga] 5 mg PO DAILY 05/03/24 Ezetimibe [Zetia] 10 mg PO DAILY 05/03/24 Famotidine 40 mg PO DAILY 05/03/24 Venlafaxine HCl [Effexor XR] 150 mg PO DAILY 05/03/24 cloNIDine HCL 0.05 mg PO BID 05/03/24 lisinopriL 30 mg PO DAILY 05/03/24 Ipratropium-Albuterol Nebulize [Duoneb 0.5 mg-3 mg/3 ml Soln] 3 ml INHALATION RT-QID 06/15/24 HYDROcodone/APAP 10-325MG [[place] 10-325] 1 tab PO Q8HR PRN 3 Days #9 tab 06/25/24
[2024-07-22 12:05] LABS: Glucose,Whole Blood 153 mg/dL (70-110)
--- NOTE | 2024-07-22 12:32 | P.PN ---
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 She presented to the hospital on 07/17/2024 with a chief complaint of intractable abdominal pain. Upon arrival to our facility, patient underwent evaluation in the emergency department. Vital signs upon arrival show blood pressure 176/117, heart rate 86, respiratory rate 18, temp 99.0 F, and SpO2 of 98% on room air. Labs completed and reviewed. CBC unremarkable. Coagulation profile showing low PT of 9.3 and PTT of 21.5. BMP showing elevated blood glucose of 253. Liver profile showing elevated AST of 37 and alkaline phosphatase of 156. Amylase and lipase normal findings. CT abdomen and pelvis showing postsurgical changes with phlegmonous changes/gas and decrease in size of fluid collection from previous 36 x 23 mm down to 22 x 11 mm, small bowel feces left abdomen concerning for fecal stasis, hepatic steatosis, and occlusion of the distal IVC below the level of the IVC filter with collateral pathways extending up from the right inguinal region to the anterior abdominal wall. Patient admitted under our services with consultation to general surgery and vascular surgery for evaluation. Physical exam: Patient seen and fully evaluated at bedside this morning. Patient continues to report intractable abdominal pain. She states she has tried ambulating and trying to get better but pain just remains unbearable at times. She reports the pain is to her surgical site. Vital signs reviewed and stable. General: Nontoxic, no distress and appears stated age. Derm: Skin warm and dry, normal coloration for ethnicity. Head: Atraumatic, normocephalic and symmetric. Eyes: EOM's intact, no lid lag, and anicteric sclera Mouth: no lip lesions, mucus membranes moist Cardiovascular: regular rate and rhythm with normal S1S2, no murmur, positive posterior tibial pulses bilaterally, and cap refill < 2 seconds. Lungs: Respirations even, regular, and unlabored on room air. Lungs CTA bilaterally, no rhonchi, no rales, no wheezing, and no accessory muscle usage. Abdominal: soft, slightly distended with tenderness upon palpation patient to abdomen and left upper quadrant, no guarding, no appreciable organomegaly. Dressing in place to mid abdomen from previous colostomy reversal with dressing in place secondary to continued postsurgical drainage, no surrounding erythema. Ext: ROM intact. No gross muscle atrophy, no edema, no contractures Neuro: Speech clear, face symmetrical and CN II-XII grossly intact with no noted focal neuro deficits Psych: Alert and oriented to person, place, time, and situation. Appropriate and pleasant affect. Assessment and Plan of Care: Intractable abdominal pain Status post reversal of colostomy, repair of incisional hernia, and repair of parastomal hernia on 05/26/2024 Nonhealing abdominal wound at surgical site Postoperative seroma, appears to be improving/decreasing in size -CT abdomen and pelvis showing postsurgical changes with phlegmonous changes/gas and decrease in size of fluid collection from previous 36 x 23 mm down to 22 x 11 mm, small bowel feces left abdomen concerning for fecal stasis, and hepatic steatosis. -General Surgery following, discussed plan of care with general surgeon as patient continues to report intractable postsurgical pain. Dr. Lewis re commending consult to pain management for evaluation. -Continue symptomatic care and pain management. -Continue with abdominal postsurgical wound dressing changes and begin wound care with Aquacel silver as instructed by general surgery team. -CRP worsening previously 1.20 now 2.10 and ESR unchanged at 34. Occlusion of distal IVC, likely chronic -CT abdomen and pelvis incidentally showing occlusion of the distal IVC below the level of the IVC filter with collateral pathways extending up from the right inguinal region to the anterior abdominal wall. -Vascular surgery evaluated, stated of distal IVC not source of patient's abdominal pain and agreed that this is likely chronic and no further workup from vascular surgical standpoint at this time. Fecal stasis, resolved. Patient reports normal bowel function daily over the past 4 days. Insulin-dependent diabetes mellitus with hyperglycemia -Continue Levemir 42 units daily along with glycemic protocol with NovoLog sliding scale. History of DVTs on anticoagulation with Eliquis -Continue anticoagulation with Eliquis 5 mg twice daily. History of CVA with residual aphasia -Continue atorvastatin 80 mg daily. Hypertension -Continue clonidine 0.05 mg twice daily, hydrochlorothiazide 12.5 mg daily, and lisinopril 30 mg daily. Hyperlipidemia -Continue atorvastatin 80 mg daily. Depression -Continue daily medication regimen with Effexor 150 mg daily, trazodone 150 mg nightly, and BuSpar 15 mg 3 times daily. Data and imaging reviewed: -Vital signs reviewed. Blood pressure 135/90, heart rate 60, respiratory rate 17, temp 97.5 F, and SpO2 of 95% on room air. -Labs reviewed. CBC unremarkable. BMP showing high anion gap metabolic acidosis with chloride of 103, bicarb of 18.5, and anion gap of 16.50. Blood glucose 158. Magnesium 2.1. Liver profile showing elevated AST of 42 and ALT of 171. ESR 34 and CRP 2.10. CODE STATUS: Full code DVT prophylaxis: Eliquis Discussed with: Patient, RN, general surgery PA, and vascular surgery TECHNICAL SPECIALIST CYTOLOGY Anticipated discharge date: Pending general surgery clearance and evaluation by pain managment for discharge Anticipated discharge place: Home Patient was seen independently by Nurse Pracitioner. This document was prepared using [employer] dictation software. Please allow for errors in gin clerk, while rare they do occur. Thom Medrano NP rendered care for this patient independently, reviewed the findings and plan as documented in the note above and agree with plan. I did not physically speak with or examine the patient on this date. Objective - Vital Signs Vital signs: Vital Signs Temp 97.9 F 07/22/24 01:52 Pulse 83 07/22/24 08:29 Resp 16 07/22/24 01:52 BP 104/74 07/22/24 01:52 Pulse Ox 93 L 07/22/24 01:52 FiO2 Intake & Output 07/21/24 07/22/24 07/22/24 18:59 06:59 18:59 Other: Voiding Method Toilet # Voids 5 1 # Bowel Movements 1 - Labs CBC & Chem 7: 07/21/24 02:45 07/21/24 02:45 Labs: Abnormal Lab Results - Last 24 Hours (Table) 07/21/24 07/21/24 07/21/24 Range/Units 02:45 02:45 12:20 RDW 14.8 H (11.5-14.5) % ESR 34 H (0-30) mm/Hr Carbon Dioxide 18.5 L (21.6-31.8) mmol/L Anion Gap 16.50 H (4.00-12.00) mmol/L BUN/Creatinine Ratio 29.71 H (12.00-20.00) Ratio Glucose 144 H (70-110) mg/dL POC Glucose (mg/dL) 176 H (70-110) mg/dL AST 42 H (13-35) U/L Alkaline Phosphatase 171 H (41-126) U/L C-Reactive Protein 2.10 H (0.00-0.80) mg/dL Albumin/Globulin Ratio 1.31 L (1.60-3.17) Ratio 07/21/24 07/21/24 07/22/24 Range/Units 16:23 20:43 06:39 RDW (11.5-14.5) % ESR (0-30) mm/Hr Carbon Dioxide (21.6-31.8) mmol/L Anion Gap (4.00-12.00) mmol/L BUN/Creatinine Ratio (12.00-20.00) Ratio Glucose (70-110) mg/dL POC Glucose (mg/dL) 238 H 285 H 158 H (70-110) mg/dL AST (13-35) U/L Alkaline Phosphatase (41-126) U/L C-Reactive Protein (0.00-0.80) mg/dL Albumin/Globulin Ratio (1.60-3.17) Ratio Microbiology - Last 24 Hours (Table) 07/18/24 08:46 Blood Culture - Preliminary Blood
--- NOTE | 2024-07-22 13:09 | P.PN ---
Subjective Progress Note Date: 07/22/24 SURGICAL PROGRESS NOTE CHIEF COMPLAINT: Abdominal pain HISTORY OF PRESENT ILLNESS: Patient reports she is feeling better since admission. She does continue to report abdominal pain. She was seen by pain service. They have made the recommendations to her pain medication. Afebrile. Patient seen and examined with Dr. Lewis PHYSICAL EXAM: VITAL SIGNS: Reviewed. GENERAL: Well-developed in no acute distress. ABDOMEN: Soft. Nondistended. Mild tenderness at incision site. Mid abdomen open wound with serous drainage. No erythema. Granulation tissue noted. NEUROLOGIC: Alert and oriented. Cranial nerves II through XII grossly intact. ASSESSMENT: 1. Abdominal pain likely musculoskeletal due to patient raking leaves outside 2. Abdominal incision wound 3. Constipation PLAN: -Continue regular diet -Continue local wound care -Patient can be discharge from surgical standpoint when medically cleared -Appreciate pain service recommendations Physician Fishing Rod Mechanic note has been reviewed by physician. Signing provider agrees with the documented findings, assessment, and plan of care. Objective - Vital Signs Vital signs: Vital Signs Temp 97.5 F L 07/22/24 07:52 Pulse 85 07/22/24 08:41 Resp 17 07/22/24 07:52 BP 135/90 07/22/24 07:52 Pulse Ox 95 07/22/24 07:52 FiO2 Intake & Output 07/21/24 07/22/24 07/22/24 18:59 06:59 18:59 Other: Voiding Method Toilet # Voids 5 1 # Bowel Movements 1 - Labs CBC & Chem 7: 07/21/24 02:45 07/21/24 02:45 Labs: Abnormal Lab Results - Last 24 Hours (Table) 07/21/24 07/21/24 07/22/24 Range/Units 16:23 20:43 06:39 POC Glucose (mg/dL) 238 H 285 H 158 H (70-110) mg/dL 07/22/24 Range/Units 12:03 POC Glucose (mg/dL) 153 H (70-110) mg/dL Microbiology - Last 24 Hours (Table) 07/18/24 08:46 Blood Culture - Preliminary Blood
--- NOTE | 2024-07-22 14:28 | P.DS ---
Providers Date of admission: 07/17/24 17:17 Expected date of discharge: 07/22/24 Attending physician: Eduin Castro MD Consults: 07/17/24 17:15 Consult Physician Routine Consulting Provider: Haroon Lewis Consult Reason/Comments: known Do you want consulting provider notified?: Yes Primary care physician: Stated None Hospital Course: Discharge Diagnosis: Intractable abdominal pain. Patient underwent hospitalization for pain management. She was evaluated by general surgery. She underwent CT abdomen and pelvis which revealed postsurgical changes with phlegmon changes/gas and decrease in size of fluid collection from previous 36 x 23 mm down to 22 x 11 mm fluid collection. General surgery clearing patient from their perspective stating patient has already completed outpatient antibiotic treatment and no signs of infection therefore no need for further antibiotics at this time. They stated no plans for surgical intervention recommending consulting pain management. Pain management evaluated recommending discontinuation of [place] and starting patient on OxyContin 10 mg every 12 hours and Percocet 5-325 mg tablets every 8 hours along with continuation of her home gabapentin. 3 day course of these Prescriptions were provided for these medications, further pain medication management will have to come from PCP or general surgeon at follow-up appointments. 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 Vascular surgery evaluated, stated of distal IVC not source of patient's abdominal pain and agreed that this is likely chronic and no further workup from vascular surgical standpoint at this time. Fecal stasis, resolved. Patient reports normal bowel function daily over the past 4 days. Insulin-dependent diabetes mellitus with hyperglycemia Continue Lantus 42 units daily. . 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 History of CVA with residual aphasia Continue atorvastatin 80 mg daily. Hypertension Continue clonidine 0.05 mg twice daily, hydrochlorothiazide 12.5 mg daily, and lisinopril 30 mg daily. Hyperlipidemia Continue atorvastatin 80 mg daily. Depression Continue daily medication regimen with Effexor 150 mg daily, trazodone 150 mg nightly, and BuSpar 15 mg 3 times daily. Hospital course: Patient is a 54-year-old female with a past medical history of insulin-dependent diabetes mellitus, CVA with residual expressive aphasia, history of DVTs on anticoagulation with Eliquis, hyperlipidemia, diverticulitis with previous bowel resection resulting in ileostomy followed by reversal, and depression. She presented to the hospital on 07/17/2024 with a chief complaint of intractable abdominal pain. Upon arrival to our facility, patient underwent evaluation in the emergency department. Vital signs upon arrival show blood pressure 176/117, heart rate 86, respiratory rate 18, temp 99.0 F, and SpO2 of 98% on room air. Labs completed and reviewed. CBC unremarkable. Coagulation profile showing low PT of 9.3 and PTT of 21.5. BMP showing elevated blood glucose of 253. Liver profile showing elevated AST of 37 and alkaline phosphatase of 156. Amylase and lipase normal findings. CT abdomen and pelvis showing postsurgical changes with phlegmonous changes/gas and decrease in size of fluid collection from previous 36 x 23 mm down to 22 x 11 mm, small bowel feces left abdomen concerning for fecal stasis, hepatic steatosis, and occlusion of the distal IVC below the level of the IVC filter with collateral pathways extending up from the right inguinal region to the anterior abdominal wall. Patient admitted under our services with consultation to general surgery and vascular surgery for evaluation. Physical exam: Vital signs reviewed and stable. General: Nontoxic, no distress and appears stated age. Derm: Skin warm and dry, normal coloration for ethnicity. Head: Atraumatic, normocephalic and symmetric. Eyes: EOM's intact, no lid lag, and anicteric sclera Mouth: no lip lesions, mucus membranes moist Cardiovascular: regular rate and rhythm with normal S1S2, no murmur, positive posterior tibial pulses bilaterally, and cap refill < 2 seconds. Lungs: Respirations even, regular, and unlabored on room air. Lungs CTA bilaterally, no rhonchi, no rales, no wheezing, and no accessory muscle usage. Abdominal: soft, slightly distended with tenderness upon palpation patient to abdomen and left upper quadrant, no guarding, no appreciable organomegaly. Dressing in place to mid abdomen from previous colostomy reversal with dressing in place secondary to continued postsurgical drainage, no surrounding erythema. Ext: ROM intact. No gross muscle atrophy, no edema, no contractures Neuro: Speech clear, face symmetrical and CN II-XII grossly intact with no noted focal neuro deficits Psych: Alert and oriented to person, place, time, and situation. Appropriate and pleasant affect. A total of 35 minutes of time were spent preparing this complex discharge summary. Pt was discharged on 07/22/2024 at 2:16 PM. Patient was seen independently by Nurse Practitioner. This document was prepared using Ind[place] dictation software. Please allow for errors in lsw while rare they do occur. Thom Medrano NP rendered care for this patient independently, reviewed the findings and plan as documented in the note above. I did not physically speak with or examine the patient on this date. Patient Condition at Discharge: Stable Plan - Discharge Summary Discharge Rx Participant: Yes New Discharge Prescriptions: New oxyCODONE ER [OxyCONTIN] 10 mg PO Q12HR 3 Days #6 tab oxyCODONE HCL/ACETAMINOPHEN [Percocet 5-325 mg] 1 tab PO Q6HR PRN 3 Days #12 tab PRN Reason: Pain Continue traZODone HCL 150 mg PO HS busPIRone HCL 15 mg PO TID Gabapentin 800 mg PO TID 3 Days #9 tab Apixaban [Eliquis] 5 mg PO BID Dapagliflozin Propanediol [Farxiga] 5 mg PO DAILY Famotidine 40 mg PO DAILY Ezetimibe [Zetia] 10 mg PO DAILY Ipratropium-Albuterol Nebulize [Duoneb 0.5 mg-3 mg/3 ml Soln] 3 ml INHALATION RT-QID hydroCHLOROthiazide [Hydrodiuril] 12.5 mg PO DAILY Insulin Glargine,Hum.rec.anlog [Lantus Solostar Pen] 42 unit SQ DAILY Atorvastatin [Lipitor] 80 mg PO DAILY lisinopriL 30 mg PO DAILY cloNIDine HCL 0.05 mg PO BID Venlafaxine HCl [Effexor XR] 150 mg PO DAILY Discontinued HYDROcodone/APAP 10-325MG [[place] 10-325] 1 tab PO Q8HR PRN 3 Days #9 tab PRN Reason: Pain Discharge Medication List Insulin Glargine,Hum.rec.anlog [Lantus Solostar Pen] 42 unit SQ DAILY 08/04/21 [History] hydroCHLOROthiazide [Hydrodiuril] 12.5 mg PO DAILY 08/04/21 [History] busPIRone HCL 15 mg PO TID 03/14/23 [History] traZODone HCL 150 mg PO HS 03/14/23 [History] Gabapentin 800 mg PO TID 3 Days #9 tab 07/12/23 [Rx] Atorvastatin [Lipitor] 80 mg PO DAILY 08/07/23 [History] Apixaban [Eliquis] 5 mg PO BID 05/03/24 [History] Dapagliflozin Propanediol [Farxiga] 5 mg PO DAILY 05/03/24 [History] Ezetimibe [Zetia] 10 mg PO DAILY 05/03/24 [History] Famotidine 40 mg PO DAILY 05/03/24 [History] Venlafaxine HCl [Effexor XR] 150 mg PO DAILY 05/03/24 [History] cloNIDine HCL 0.05 mg PO BID 05/03/24 [History] lisinopriL 30 mg PO DAILY 05/03/24 [History] Ipratropium-Albuterol Nebulize [Duoneb 0.5 mg-3 mg/3 ml Soln] 3 ml INHALATION RT-QID 06/15/24 [History] oxyCODONE ER [OxyCONTIN] 10 mg PO Q12HR 3 Days #6 tab 07/22/24 [Rx] oxyCODONE HCL/ACETAMINOPHEN [Percocet 5-325 mg] 1 tab PO Q6HR PRN 3 Days #12 tab 07/22/24 [Rx] Follow up Appointment(s)/Referral(s): Esteban Ontiveros MD [REFERRING] - 08/18/24 10:30 am (PLEASE CALL PRIOR TO DISCHARGING PATIENT AND SCHEDULE FIRST AVAILABLE APPOINTMENT FOR POST HOSPITALIZATION FOLLOW UP AND ESTABLISHMENT OF A PCP) [facility] [NON-STAFF] - As Needed Haroon Lewis MD [STAFF PHYSICIAN] - 07/29/24 2:45 pm Patient Instructions/Handouts: Acute Abdominal Pain (DC) Discharge Disposition: HOME SELF-CARE
[2024-07-22 16:01] VITALS: BP 125/90; PULSE 97
== END 2024-07-22 14:35 | disposition home or self-care (01) | DRG 920 ==
LOC: EC 13:15 → 4SSUR 17:16 → OBSVTOIN 17:17 → 4SSUR 21:34
PROVIDERS: ADMIT Internal Medicine; ATTEND Internal Medicine
DX: K91.872 Postprocedural seroma of a digestive system organ or structure following a digestive system procedure (principal); T82.898A Other specified complication of vascular prosthetic devices, implants and grafts, initial encounter; E11.65 Type 2 diabetes mellitus with hyperglycemia; K56.41 Fecal impaction; J44.9 Chronic obstructive pulmonary disease, unspecified; Z79.4 Long term (current) use of insulin; I69.320 Aphasia following cerebral infarction; R16.0 Hepatomegaly, not elsewhere classified; I10 Essential (primary) hypertension; F32.A Depression, unspecified; E78.5 Hyperlipidemia, unspecified; F17.210 Nicotine dependence, cigarettes, uncomplicated; G89.29 Other chronic pain; G89.18 Other acute postprocedural pain; R74.01 Elevation of levels of liver transaminase levels; K76.0 Fatty (change of) liver, not elsewhere classified; K21.9 Gastro-esophageal reflux disease without esophagitis; Y71.1 Therapeutic (nonsurgical) and rehabilitative cardiovascular devices associated with adverse incidents; Z79.84 Long term (current) use of oral hypoglycemic drugs; Z79.01 Long term (current) use of anticoagulants; Z86.718 Personal history of other venous thrombosis and embolism; Z90.49 Acquired absence of other specified parts of digestive tract; Z79.899 Other long term (current) drug therapy; Z86.14 Personal history of Methicillin resistant Staphylococcus aureus infection
CPT/HCPCS: 36415; 74177; 80053; 82150; 83690; 83735; 84100; 85025; 85027; 85610; 85652; 85730; 86140; 87040; 94640; 96361; 96374; 96375; 96376; 99285

== ENCOUNTER → 2024-08-25 | Outpatient (CLI) | payer MEDICARE, OTHER ==
[2024-08-25 15:47] LABS: Basophils # (A) 0.05 X 10*3/uL (0.00-0.10); Basophils % (A) 0.5 %; Eosinophils # (A) 0.11 X 10*3/uL (0.04-0.35); Eosinophils % (A) 1.2 %; HCT 48.8 % (37.2-46.3); HGB 15.6 g/dL (12.0-15.0); Lymphocytes # (A) 1.92 X 10*3/uL (0.90-5.00); MCH 29.1 pg (27.0-32.0); MCV 90.9 FL (80.0-97.0); Mean Platelet Volume 11.8 FL (9.5-12.2); Monocytes # (A) 0.44 X 10*3/uL (0.20-1.00); Monocytes % (A) 4.8 %; NRBC Per 100 WBC 0 X 10*3/uL (0.00-0.01); Neutrophils # (A) 6.57 X 10*3/uL (1.80-7.70); Neutrophils % (A) 72.1 %; Platelet Count 178 X 10*3/uL (140-440); RBC 5.37 X 10*6/uL (4.10-5.20); RDW 13.8 % (11.5-14.5); WBC 9.13 X 10*3/uL (4.50-10.00)
[2024-08-25 16:06] LABS: BUN/Creat Ratio 30.33 Ratio (12.00-20.00); Blood Urea Nitrogen 18.2 mg/dL (9.0-27.0); Carbon Dioxide 20.7 mmol/L (21.6-31.8); Chloride 103 mmol/L (96-109); Glucose 178 mg/dL (70-110); Potassium 4.1 mmol/L (3.5-5.5); Sodium 138 mmol/L (135-145)
[2024-08-25 16:07] LABS: ALT 14 U/L (8-44); AST 15 U/L (13-35); Albumin 4.5 g/dL (3.8-4.9); Albumin/Globulin Ratio 1.45 Ratio (1.60-3.17); Alkaline Phosphatase 132 U/L (41-126); Calcium 9.8 mg/dL (8.7-10.3); Globulin 3.1 g/dL (1.6-3.3); T4, Free (Free Thyroxine) 1.16 ng/dL (0.80-1.80); Total Bilirubin 0.5 mg/dL (0.3-1.2); Total Protein 7.6 g/dL (6.2-8.2)
== END | disposition home or self-care (01) ==
LOC: LABWHC1 11:33
PROVIDERS: ATTEND Registered Nurse
DX: I10 Essential (primary) hypertension (principal); E11.65 Type 2 diabetes mellitus with hyperglycemia; K46.9 Unspecified abdominal hernia without obstruction or gangrene
CPT/HCPCS: 36415; 80053; 82306; 82607; 82746; 83036; 83921; 84439; 84443; 85025

== ENCOUNTER 2024-11-03 19:36 | Emergency (ER) | payer MEDICARE, OTHER ==
[2024-11-03 19:41] VITALS: RESP 20; TEMP 97.8
[2024-11-03] MEDS: ONDANSETRON 4 MG/2 ML VIAL IVP STA (20:32)
[2024-11-03] MEDS: HYDROmorphone 1 MG/ML 1 ML SYRINGE IVP STA (20:33)
[2024-11-03] MEDS: SODIUM CHLORIDE 0.9% 1,000 ML IV ONE (20:38)
[2024-11-03 20:42] LABS: Basophils # (A) 0.1 k/uL (0-0.2); Basophils % (A) 1 %; Eosinophils # (A) 0.2 k/uL (0-0.7); Eosinophils % (A) 1 %; HGB 15.5 gm/dL (11.4-16.0); Lymphocytes # (A) 2.4 k/uL (1.0-4.8); Lymphocytes % (A) 21 %; MCH 29.9 pg (25.0-35.0); MCHC 32.9 g/dL (31.0-37.0); Mean Platelet Volume 7.8; Monocytes # (A) 0.6 k/uL (0-1.0); Monocytes % (A) 5 %; Neutrophils # (A) 8.3 k/uL (1.3-7.7); Neutrophils % (A) 71 %; Platelet Count 239 k/uL (150-450); RBC 5.17 m/uL (3.80-5.40); WBC 11.7 k/uL (3.8-10.6)
--- NOTE | 2024-11-03 20:44 | ED ---
General Adult HPI - General Chief complaint: Abdominal Pain Stated complaint: Abd pain Time Seen by Provider: 11/03/24 19:48 Source: patient, RN notes reviewed, old records reviewed Mode of arrival: wheelchair Limitations: no limitations - History of Present Illness Initial comments: 54-year-old female with chronic abdominal pain presenting with worsening pain over the past 2 days. Patient has had midline laparotomy and states this was approximately 5 months ago. She is unable to communicate what the surgery was for and she does have a history of expressive aphasia status post CVA in the remote past. Denies vomiting. Denies fever. Denies changes to her bowels - Related Data Home Medications Medication Instructions Recorded Confirmed Insulin Glargine,Hum.rec.anlog 42 unit SQ DAILY 08/04/21 07/17/24 [Lantus Solostar Pen] hydroCHLOROthiazide [Hydrodiuril] 12.5 mg PO DAILY 08/04/21 07/17/24 busPIRone HCL 15 mg PO TID 03/14/23 07/17/24 traZODone HCL 150 mg PO HS 03/14/23 07/17/24 Atorvastatin [Lipitor] 80 mg PO DAILY 08/07/23 07/17/24 Apixaban [Eliquis] 5 mg PO BID 05/03/24 07/17/24 Dapagliflozin Propanediol [Farxiga] 5 mg PO DAILY 05/03/24 07/17/24 Ezetimibe [Zetia] 10 mg PO DAILY 05/03/24 07/17/24 Famotidine 40 mg PO DAILY 05/03/24 07/17/24 Venlafaxine HCl [Effexor XR] 150 mg PO DAILY 05/03/24 07/17/24 cloNIDine HCL 0.05 mg PO BID 05/03/24 07/17/24 lisinopriL 30 mg PO DAILY 05/03/24 07/17/24 Ipratropium-Albuterol Nebulize 3 ml INHALATION RT-QID 06/15/24 07/17/24 [Duoneb 0.5 mg-3 mg/3 ml Soln] Previous Rx's Medication Instructions Recorded Gabapentin 800 mg PO TID 3 Days #9 tab 07/12/23 oxyCODONE ER [OxyCONTIN] 10 mg PO Q12HR 3 Days #6 tab 07/22/24 oxyCODONE HCL/ACETAMINOPHEN 1 tab PO Q6HR PRN 3 Days #12 tab 07/22/24 [Percocet 5-325 mg] Allergies Allergy/AdvReac Type Severity Reaction Status Date / Time No Known Allergies Allergy Verified 11/03/24 19:41 Review of Systems ROS Statement: Those systems with pertinent positive or pertinent negative responses have been documented in the HPI. ROS Other: All systems not noted in ROS Statement are negative. Past Medical History Past Medical History: COPD, CVA/TIA, Diabetes Mellitus, Deep Vein Thrombosis (DVT), GERD/Reflux, Hyperlipidemia, Hypertension Additional Past Medical History / Comment(s): CVA 2019- expressive aphasia; 2 DVT's; diverticulitis; hernia History of Any Multi-Drug Resistant Organisms: MRSA Date of last positivie culture/infection: 09/03/23 MDRO Source:: Groin Past Surgical History: Bowel Resection Additional Past Surgical History / Comment(s): IVC FILTER 2013. ileostomy. wound vac. ileostomy reversal with hernia repair, with ovary removal-Apr 2024. Past Anesthesia/Blood Transfusion Reactions: No Reported Reaction Past Psychological History: Depression, PTSD Smoking Status: Current every day smoker Past Alcohol Use History: None Reported Past Drug Use History: None Reported General Exam Limitations: no limitations General appearance: alert, in no apparent distress Head exam: Present: atraumatic, normocephalic Eye exam: Present: normal appearance, PERRL ENT exam: Present: normal exam Neck exam: Present: normal inspection. Absent: tenderness, meningismus Respiratory exam: Present: normal lung sounds bilaterally. Absent: respiratory distress, wheezes Cardiovascular Exam: Present: regular rate, normal rhythm GI/Abdominal exam: Present: soft, tenderness (Generalized). Absent: distended Extremities exam: Present: normal inspection Neurological exam: Present: alert, oriented X3 Psychiatric exam: Present: normal affect, normal mood Skin exam: Present: warm, dry, intact Course Vital Signs 11/03/24 19:37 Temperature 97.8 F Pulse Rate 106 H Respiratory 20 Rate Blood Pressure 142/107 O2 Sat by Pulse 95 Oximetry Medical Decision Making - Medical Decision Making Was pt. sent in by a medical professional or institution (, PA, CNC MILLING MACHINIST, urgent c are, hospital, or intermediate...) When possible be specific @ -No Did you speak to anyone other than the patient for history (EMS, parent, family, police, friend...)? What history was obtained from this source @ -No Did you review nursing and triage notes (agree or disagree)? Why? @ -I reviewed and agree with nursing and triage notes Were old charts reviewed (outside hosp., previous admission, EMS record, old EKG, old radiological studies, urgent care reports/EKG's, intermediate records)? Report findings @ -No old charts were reviewed Differential Abdominal Pain Women: Appendicitis, Cholecystitis, diverticulosis, ischemic bowel, pancreatitis, hepatitis, UTI, gastroenteritis, AAA, incarcerated hernia, bowel obstruction, constipation, inflammatory bowel, hepatitis, peptic ulcer disease, splenic infarction, perforated viscus, vulvitis, ovarian torsion, PID, kidney stone, placenta abruption, this is not meant to be an all-inclusive list EKG interpreted by me (3pts min.). @ -As above X-rays interpreted by me (1pt min.). @ -None done CT interpreted by me (1pt min.). @CT abdomen pelvis is negative for acute process, improved compared to prior phlegmon U/S interpreted by me (1pt. min.). @ -None done What testing was considered but not performed or refused? (CT, X-rays, U/S, labs)? Why? @ -None What meds were considered but not given or refused? Why? @ -None Did you discuss the management of the patient with other professionals (professionals i.e. , PA, CNC MILLING MACHINIST, lab, RT, psych nurse, psychologist social, linoleum mechanic, teacher, police officer booking, residential case manager)? Give summary @ -No Was smoking cessation discussed for >3mins.? @ -No Was critical care preformed (if so, how long)? @ -No Were there social determinants of health that impacted care today? How? (Homelessness, low income, unemployed, alcoholism, drug addiction, transportation, low edu. Level, literacy, decrease access to med. care, detention, rehab)? @ -No Was there de-escalation of care discussed even if they declined (Discuss DNR or withdrawal of care, Hospice)? DNR status @ -No What co-morbidities impacted this encounter? (DM, HTN, Smoking, COPD, CAD, Cancer, CVA, ARF, Chemo, Hep., AIDS, mental health diagnosis, sleep apnea, morbid obesity)? @Chronic abdominal pain, previous CVA Was patient admitted / discharged? Hospital course, mention meds given and route, prescriptions, significant lab abnormalities, going to OR and other pertinent info. @ -54-year-old female with acute on chronic abdominal pain. Patient does have generalized tenderness, no rebound or guarding. CT is performed which shows no acute process. She has a mild leukocytosis 11.7, lactic acid 2.7, positive urinalysis. She will be covered with oral antibiotics for UTI, given return parameters and should follow-up with her primary care provider. Undiagnosed new problem with uncertain prognosis? @ -No Drug Therapy requiring intensive monitoring for toxicity (Heparin, Nitro, Insulin, Cardizem)? @ -No Were any procedures done? @ -No Diagnosis/symptom? @Abdominal pain Acute, or Chronic, or Acute on Chronic? @ -[Acute on chronic Uncomplicated (without systemic symptoms) or Complicated (systemic symptoms)? @ -Default Side effects of treatment? @ -No Exacerbation, Progression, or Severe Exacerbation? @ -No Poses a threat to life or bodily function? How? (Chest pain, [place], [place], pneumonia, PE, COPD, DKA, ARF, appy, cholecystitis, CVA, Diverticulitis, Homicidal, Suicidal, threat to staff... and all critical care pts) @ -No - Lab Data Result diagrams: 11/03/24 20:30 11/03/24 20:30 Lab Results 11/03/24 11/03/24 11/03/24 Range/Units 19:50 20:30 20:30 WBC 11.7 H (3.8-10.6) k/uL RBC 5.17 (3.80-5.40) m/uL Hgb 15.5 (11.4-16.0) gm/dL Hct 47.0 H (34.0-46.0) % MCV 91.0 (80.0-100.0) fL MCH 29.9 (25.0-35.0) pg MCHC 32.9 (31.0-37.0) g/dL RDW 14.0 (11.5-15.5) % Plt Count 239 (150-450) k/uL MPV 7.8 Neutrophils % 71 % Lymphocytes % 21 % Monocytes % 5 % Eosinophils % 1 % Basophils % 1 % Neutrophils # 8.3 H (1.3-7.7) k/uL Lymphocytes # 2.4 (1.0-4.8) k/uL Monocytes # 0.6 (0-1.0) k/uL Eosinophils # 0.2 (0-0.7) k/uL Basophils # 0.1 (0-0.2) k/uL PT 9.7 L (10.0-12.5) sec INR 0.8 (<1.2) APTT 22.4 (22.0-30.0) sec Sodium (137-145) mmol/L Potassium (3.5-5.1) mmol/L Chloride (98-107) mmol/L Carbon Dioxide (22-30) mmol/L Anion Gap mmol/L BUN (7-17) mg/dL Creatinine (0.52-1.04) mg/dL Est GFR (CKD-EPI)AfAm (>60 ml/min/1.73 sqM) Est GFR (CKD-EPI)NonAf (>60 ml/min/1.73 sqM) Glucose (74-99) mg/dL Plasma Lactic Acid Kyrie (0.7-2.0) mmol/L Calcium (8.4-10.2) mg/dL Total Bilirubin (0.2-1.3) mg/dL AST (14-36) U/L ALT (4-34) U/L Alkaline Phosphatase (38-126) U/L Total Protein (6.3-8.2) g/dL Albumin (3.5-5.0) g/dL Lipase (23-300) U/L Urine Color Light Yellow Urine Appearance Clear (Clear) Urine pH 5.0 (5.0-8.0) Ur Specific [place] 1.040 H (1.001-1.035) Urine Protein Negative (Negative) Urine Glucose (UA) 4+ H (Negative) Urine Ketones Negative (Negative) Urine Blood Negative (Negative) Urine Nitrite Negative (Negative) Urine Bilirubin Negative (Negative) Urine Urobilinogen <2.0 (<2.0) mg/dL Ur Leukocyte Esterase Moderate H (Negative) Urine RBC 15 H (0-5) /hpf Urine WBC 25 H (0-5) /hpf Urine WBC Clumps Rare H (None) /hpf Ur Squamous Epith Cells 2 (0-4) /hpf Urine Bacteria Rare H (None) /hpf Urine Yeast (Budding) Rare H (None) /hpf 11/03/24 11/03/24 Range/Units 20:30 20:30 WBC (3.8-10.6) k/uL RBC (3.80-5.40) m/uL Hgb (11.4-16.0) gm/dL Hct (34.0-46.0) % MCV (80.0-100.0) fL MCH (25.0-35.0) pg MCHC (31.0-37.0) g/dL RDW (11.5-15.5) % Plt Count (150-450) k/uL MPV Neutrophils % % Lymphocytes % % Monocytes % % Eosinophils % % Basophils % % Neutrophils # (1.3-7.7) k/uL Lymphocytes # (1.0-4.8) k/uL Monocytes # (0-1.0) k/uL Eosinophils # (0-0.7) k/uL Basophils # (0-0.2) k/uL PT (10.0-12.5) sec INR (<1.2) APTT (22.0-30.0) sec Sodium 135 L (137-145) mmol/L Potassium 5.4 H (3.5-5.1) mmol/L Chloride 102 (98-107) mmol/L Carbon Dioxide 21 L (22-30) mmol/L Anion Gap 12 mmol/L BUN 22 H (7-17) mg/dL Creatinine 0.67 (0.52-1.04) mg/dL Est GFR (CKD-EPI)AfAm >90 (>60 ml/min/1.73 sqM) Est GFR (CKD-EPI)NonAf >90 (>60 ml/min/1.73 sqM) Glucose 189 H (74-99) mg/dL Plasma Lactic Acid Kyrie 2.7 H* (0.7-2.0) mmol/L Calcium 9.6 (8.4-10.2) mg/dL Total Bilirubin 1.2 (0.2-1.3) mg/dL AST 39 H (14-36) U/L ALT 21 (4-34) U/L Alkaline Phosphatase 110 (38-126) U/L Total Protein 8.2 (6.3-8.2) g/dL Albumin 4.7 (3.5-5.0) g/dL Lipase 192 (23-300) U/L Urine Color Urine Appearance (Clear) Urine pH (5.0-8.0) Ur Specific [place] (1.001-1.035) Urine Protein (Negative) Urine Glucose (UA) (Negative) Urine Ketones (Negative) Urine Blood (Negative) Urine Nitrite (Negative) Urine Bilirubin (Negative) Urine Urobilinogen (<2.0) mg/dL Ur Leukocyte Esterase (Negative) Urine RBC (0-5) /hpf Urine WBC (0-5) /hpf Urine WBC Clumps (None) /hpf Ur Squamous Epith Cells (0-4) /hpf Urine Bacteria (None) /hpf Urine Yeast (Budding) (None) /hpf Disposition Clinical Impression: Abdominal pain Disposition: HOME SELF-CARE Condition: Fair Instructions (If sedation given, give patient instructions): Abdominal Pain (ED) Is patient prescribed a controlled substance at d/c from ED?: No Referrals: Nonstaff,Physician [Primary Care Provider] - 1-2 days Haroon Lewis MD [STAFF PHYSICIAN] - 1-2 days Time of Disposition: 21:58
[2024-11-03 20:57] LABS: ALT 21 U/L (4-34); African American GFR (CKD) >90 (>60 ml/min/1.73 sqM); Anion Gap 12 mmol/L; Blood Urea Nitrogen 22 mg/dL (7-17); Calcium 9.6 mg/dL (8.4-10.2); Carbon Dioxide 21 mmol/L (22-30); Chloride 102 mmol/L (98-107); Glucose 189 mg/dL (74-99); Lipase 192 U/L (23-300); Non-African American GFR(CKD) >90 (>60 ml/min/1.73 sqM); Sodium 135 mmol/L (137-145); Total Bilirubin 1.2 mg/dL (0.2-1.3); Total Protein 8.2 g/dL (6.3-8.2)
[2024-11-03 21:05] LABS: Appearance,Urine Clear (Clear); Bilirubin,Urine Negative (Negative); Color,Urine Light Yellow; Glucose,Urine (UA) 4+ (Negative); Ketones,Urine Negative (Negative); Protein,Urine Negative (Negative)
[2024-11-03 21:06] LABS: Bacteria,Urine Rare /hpf; Blood,Urine Negative (Negative); Budding Yeast,Urine Rare /hpf; Leukocyte Esterase,Urine Moderate (Negative); Nitrite,Urine Negative (Negative); RBC,Urine 15 /hpf (0-5); Squamous Epithelial Cell,Urine 2 /hpf (0-4); Urobilinogen,Urine <2.0 mg/dL (<2.0); WBC,Urine 25 /hpf (0-5)
[2024-11-03 21:09] LABS: Alkaline Phosphatase 110 U/L (38-126); Potassium 5.4 mmol/L (3.5-5.1)
[2024-11-03 21:10] LABS: AST 39 U/L (14-36); Albumin 4.7 g/dL (3.5-5.0)
--- NOTE | 2024-11-03 21:30 | CT ---
EXAMINATION TYPE: CT abdomen pelvis wo con CT DLP: 532.4 mGycm, Automated exposure control for dose reduction was used. DATE OF EXAM: 11/03/2024 8:57 PM COMPARISON: CT abdomen pelvis 07/17/2024 CLINICAL INDICATION:Female, 54 years old with history of abdominal pain; Pt presents to ED for c/o ab dominal pain ongoing since previous abdominal surgery 5 months ago. TECHNIQUE: Axial CT abdomen pelvis wo con;Sagittal and coronal reformats were created on a separate workstation. Contrast used: mL of , (none if empty) Oral contrast used: without Oral Contrast (none if empty) FINDINGS: LOWER CHEST: Scattered small cysts the left lower lobe. Additional nonspecific small groundglass foci in the left lower lobe may represent atelectasis. ABDOMEN LIVER: Low density of the liver parenchyma GALLBLADDER AND BILE DUCTS: Unremarkable. PANCREAS: Unremarkable. SPLEEN: Unremarkable. ADRENAL GLANDS: Unremarkable. KIDNEYS AND URETERS: No evidence of hydronephrosis or renal calculus. Tiny hyperdense focus is seen w ithin the right kidney too small to characterize The ureters are unremarkable. PELVIS BLADDER: Grossly unremarkable REPRODUCTIVE: No pelvic masses. ABDOMEN & PELVIS STOMACH AND BOWEL: Stomach is grossly unremarkable. The small bowel is of normal caliber. Postsurgica l changes are suggested in the rectosigmoid area.Distal colonic diverticula without associated fat st randing. No evidence of bowel obstruction. PERITONEUM/RETROPERITONEUM: No evidence of pneumoperitoneum or free fluid. VASCULATURE: No evidence of aortic aneurysm. Multiple phleboliths are seen in the pelvis. IVC filters in place. Multiple collateral vessels are seen within the right inguinal region extending along the anterior abdominal wall similar to prior. MUSCULOSKELETAL: No acute osseous abnormalities LYMPH NODES: No gross evidence for lymphadenopathy. SOFT TISSUE/ABDOMINAL WALL: There is resolution of previously seen phlegmonous changes of subcutaneou s gas along the anterior abdominal wall with residual scarring now appreciated in the central abdomin al soft tissues. IMPRESSION: 1. No acute intra-abdominal/pelvic process. 2. Hepatic steatosis. 3. Resolution of previously seen extensive phlegmonous changes in the anterior abdominal wall no foca l abscess is appreciated at this time. Some residual trace fat necrosis may be present. 4. Few groundglass changes in the left lung base likely related to atelectasis. [facility], , 11/03/2024 9:27 PM
[2024-11-03 21:41] LABS: INR 0.8 (<1.2); Partial Thromboplastin Time 22.4 sec (22.0-30.0); Prothrombin Time 9.7 sec (10.0-12.5)
[2024-11-03] MEDS: HYDROmorphone 0.5 MG/0.5 ML SYRINGE IVP STA (22:28)
[2024-11-03 23:06] VITALS: BP 121/85; PULSE 92
== END 2024-11-03 23:06 | disposition home or self-care (01) ==
LOC: EC 19:36
DX: G89.29 Other chronic pain (principal); R10.84 Generalized abdominal pain; F17.200 Nicotine dependence, unspecified, uncomplicated; Z86.73 Personal history of transient ischemic attack (TIA), and cerebral infarction without residual deficits
CPT/HCPCS: 99284; 96374; 96375; 96376; 96361; 36415; 80053; 83605; 83690; 85025; 85610; 85730; 81001; 87086; 74176; J2405; J1171 ×2

== ENCOUNTER 2024-11-22 12:36 | Inpatient (IN) | payer MEDICARE, OTHER ==
[2024-11-22] MEDS: SODIUM CHLORIDE 0.9% 1,000 ML IV ONE (12:59)
[2024-11-22] MEDS: ONDANSETRON 4 MG/2 ML VIAL IVP STA (12:59)
[2024-11-22] MEDS: HYDROmorphone 1 MG/ML 1 ML SYRINGE IVP STA ×2 (12:59→14:42)
--- NOTE | 2024-11-22 13:00 | ED ---
Abdominal Pain HPI - General Chief Complaint: Abdominal Pain Stated Complaint: abd pain Time Seen by Provider: 11/22/24 12:37 Source: patient, RN notes reviewed Mode of arrival: ambulatory Limitations: no limitations - History of Present Illness Initial Comments: This is a 54 year old female who presents to the emergency department for abdominal pain. Patient follows Dr. Lewis and had an ostomy reversal 6 months ago. She ended up having pain afterwards and was found to have concerns of an abscess in the abdominal wall. This was treated successfully and she was doing well afterwards. However, she has since continued to have intermittent bouts of pain. She presented here on 11/03/2024 for abdominal pain. Workup at that time had revealed resolution of the previously demonstrated infection and she was discharged home. States that she continues to have pain. She is taking [place], however this is not effective. States that she is scheduled for surgery on 11/28 to have her abdomen "cleaned out". Denies any nausea/vomiting or diarrhea/constipation. She has a history of CVA with residual expressive aphasia which does limit her ability to provide history to some extent. She does also note being more active and bending a lot more than usual over the last couple of days and wonders if that may have flared up her pain. MD Complaint: abdominal pain - Related Data Home Medications Medication Instructions Recorded Confirmed Insulin Glargine,Hum.rec.anlog 50 unit SQ DAILY 08/04/21 11/22/24 [Lantus Solostar Pen] hydroCHLOROthiazide [Hydrodiuril] 12.5 mg PO DAILY 08/04/21 11/22/24 busPIRone HCL 15 mg PO TID 03/14/23 11/22/24 traZODone HCL 150 mg PO HS 03/14/23 11/22/24 Atorvastatin [Lipitor] 80 mg PO DAILY 08/07/23 11/22/24 Apixaban [Eliquis] 5 mg PO BID 05/03/24 11/22/24 Ezetimibe [Zetia] 10 mg PO DAILY 05/03/24 11/22/24 Famotidine 40 mg PO DAILY 05/03/24 11/22/24 Venlafaxine HCl [Effexor XR] 150 mg PO DAILY 05/03/24 11/22/24 cloNIDine HCL 0.05 mg PO BID 05/03/24 11/22/24 lisinopriL 30 mg PO DAILY 05/03/24 11/22/24 Ipratropium-Albuterol Nebulize 3 ml INHALATION RT-QID 06/15/24 11/22/24 [Duoneb 0.5 mg-3 mg/3 ml Soln] Dapagliflozin Propanediol [Farxiga] 10 mg PO DAILY 11/22/24 11/22/24 HYDROcodone/APAP 10-325MG [[place] 1 tab PO TID 11/22/24 11/22/24 10-325] Potassium Chloride ER [K-Dur 20] 20 meq PO DAILY 11/22/24 11/22/24 Previous Rx's Medication Instructions Recorded Gabapentin 800 mg PO TID 3 Days #9 tab 07/12/23 Allergies Allergy/AdvReac Type Severity Reaction Status Date / Time No Known Allergies Allergy Verified 11/22/24 17:26 Review of Systems ROS Statement: Those systems with pertinent positive or pertinent negative responses have been documented in the HPI. ROS Other: All systems not noted in ROS Statement are negative. Past Medical History Past Medical History: COPD, CVA/TIA, Diabetes Mellitus, Deep Vein Thrombosis (DVT), GERD/Reflux, Hyperlipidemia, Hypertension Additional Past Medical History / Comment(s): CVA 2020- expressive aphasia; 2 DVT's; diverticulitis; hernia History of Any Multi-Drug Resistant Organisms: MRSA Date of last positivie culture/infection: 09/03/23 MDRO Source:: Groin Past Surgical History: Bowel Resection Additional Past Surgical History / Comment(s): IVC FILTER 2013. ileostomy. wound vac. ileostomy reversal with hernia repair, with ovary removal-Apr 2024. Past Anesthesia/Blood Transfusion Reactions: No Reported Reaction Past Psychological History: Depression, PTSD Smoking Status: Current every day smoker Past Alcohol Use History: None Reported Past Drug Use History: None Reported General Exam Limitations: no limitations General appearance: alert, in no apparent distress Head exam: Present: atraumatic, normocephalic, normal inspection Respiratory exam: Present: normal lung sounds bilaterally. Absent: respiratory distress, wheezes, rales, rhonchi, stridor Cardiovascular Exam: Present: regular rate, normal rhythm GI/Abdominal exam: Present: soft, tenderness (diffuse), other (Incision is clean, dry, and intact. There is no surrounding erythema or induration.). Absent: distended Neurological exam: Present: alert, oriented X3, CN II-XII intact Psychiatric exam: Present: normal affect, normal mood Course Vital Signs 11/22/24 11/22/24 11/22/24 12:38 15:00 19:50 Temperature 97.1 F L 98.6 F Pulse Rate 78 78 80 Respiratory 17 17 17 Rate Blood Pressure 173/134 168/110 149/102 O2 Sat by Pulse 98 97 95 Oximetry Medical Decision Making - Medical Decision Making This is a 54-year-old female who presents to the emergency department for abdominal pain. Was pt. sent in by a medical professional or institution? @ -No Did you speak to anyone other than the patient for history? @ -No Did you review nursing and triage notes? @ -Yes, and I agree, it is accurate with regards to the patient's symptoms. Were old charts reviewed? @ -CT scan of the abdomen/pelvis from 11/03/2024 demonstrating no acute process and resolution of previously seen extensive phlegmonous changes in the anterior abdominal wall. Differential Diagnosis? @ -Differential Abdominal Pain Women: Appendicitis, Cholecystitis, diverticulosis, ischemic bowel, pancreatitis, hepatitis, UTI, gastroenteritis, AAA, incarcerated hernia, bowel obstruction, constipation, inflammatory bowel, hepatitis, peptic ulcer disease, splenic infarction, perforated viscus, vulvitis, ovarian torsion, PID, kidney stone, placenta abruption, this is not meant to be an all-inclusive list EKG interpreted by me (3pts min.)? @ -EKG interpreted by me demonstrating the following: Sinus rhythm. Ventricular rate 73 bpm, [place] interval 153 ms, QRS duration 83 ms, QTc 426 ms. X-rays interpreted by me (1pt min.)? @ -Not obtained CT interpreted by me (1pt min.)? @ -Not obtained U/S interpreted by me (1pt. min.)? @ -Abdominal ultrasound obtained. My interpretation identifies a possible fluid collection in the abdominal wall. What testing was considered but not performed? (CT, X-rays, U/S, labs)? Why? @ -None What meds were considered but not given? Why? @ -None Did you discuss the management of the patient with other professionals? @ -Yes, Dr. Dang, who accepts the patient for admission Did you reconcile home meds? @ -Yes Was smoking cessation discussed for >3mins.? @ -No Was critical care preformed (if so, how long)? @ -No Were there social determinants of health that impacted care today? How? (Homeles sness, low income, unemployed, alcoholism, drug addiction, transportation, low edu. Level, literacy, decrease access to med. care, [facility], rehab)? @ -No Was there de-escalation of care discussed even if they declined? (Discuss DNR or withdrawal of care, Hospice)? @ -No What co-morbidities impacted this encounter? (DM, HTN, Smoking, COPD, CAD, Cance r, CVA, Hep., AIDS, mental health diagnosis, sleep apnea, morbid obesity)? @ -History of CVA, DM, smoking Was patient admitted / discharged? @ -Admitted. Lab work unremarkable. Urinalysis negative for signs of infection. Given that the patient just had a CT scan on 11/03, we did not necessarily want to repeat one immediately. We did obtain an ultrasound over the previously affected area and they found a heterogeneous area midline soft tissue abdomen revealing a small nonspecific collection at the site of concern that could reflect a small seroma. Infected collection is not excluded. She did not have a white count and was afebrile. Abdomen was nonsurgical. We had initially planned on controlling her symptoms and discharging her home. However, patient advised that she was still in too much pain and lives alone and cannot continue to get around her house. She was subsequently admitted to medicine for intractable abdominal pain and possible abdominal wall fluid collection. She was started on vancomycin and cefepime for possible associated infection. Will defer any additional imaging decisions to admitting team. Consult placed for infectious disease and general surgery. Case discussed with ED attending Dr. Rubio. Undiagnosed new problem with uncertain prognosis? @ -None Drug Therapy requiring intensive monitoring for toxicity (Heparin, Nitro, Insulin, Cardizem)? @ -None Were any procedures done? @ -None Diagnosis/symptom? @ -Intractable abdominal pain, abdominal wall fluid collection Acute, or Chronic, or Acute on Chronic? @ -Acute Uncomplicated (without systemic symptoms) or Complicated (systemic symptoms)? @ -Uncomplicated Side effects of treatment? @ -None Exacerbation, Progression, or Severe Exacerbation] @ -Not applicable Poses a threat to life or bodily function? @ -Patient reports that the pain is limiting her ability to function - Lab Data Result diagrams: 11/22/24 12:51 11/22/24 12:51 Lab Results 11/22/24 11/22/24 11/22/24 Range/Units 12:51 12:51 13:12 WBC 9.8 (3.8-10.6) k/uL RBC 5.30 (3.80-5.40) m/uL Hgb 15.9 (11.4-16.0) gm/dL Hct 47.5 H (34.0-46.0) % MCV 89.7 (80.0-100.0) fL MCH 30.0 (25.0-35.0) pg MCHC 33.4 (31.0-37.0) g/dL RDW 14.0 (11.5-15.5) % Plt Count 210 (150-450) k/uL MPV 8.0 Neutrophils % 73 % Lymphocytes % 20 % Monocytes % 4 % Eosinophils % 1 % Basophils % 1 % Neutrophils # 7.1 (1.3-7.7) k/uL Lymphocytes # 1.9 (1.0-4.8) k/uL Monocytes # 0.4 (0-1.0) k/uL Eosinophils # 0.1 (0-0.7) k/uL Basophils # 0.1 (0-0.2) k/uL Sodium 137 (137-145) mmol/L Potassium 4.1 (3.5-5.1) mmol/L Chloride 101 (98-107) mmol/L Carbon Dioxide 23 (22-30) mmol/L Anion Gap 13 mmol/L BUN 17 (7-17) mg/dL Creatinine 0.60 (0.52-1.04) mg/dL Est GFR (CKD-EPI)AfAm >90 (>60 ml/min/1.73 sqM) Est GFR (CKD-EPI)NonAf >90 (>60 ml/min/1.73 sqM) Glucose 157 H (74-99) mg/dL Plasma Lactic Acid Kyrie 1.3 (0.7-2.0) mmol/L Calcium 10.1 (8.4-10.2) mg/dL Magnesium 1.8 (1.6-2.3) mg/dL Total Bilirubin 1.2 (0.2-1.3) mg/dL AST 20 (14-36) U/L ALT 23 (4-34) U/L Alkaline Phosphatase 125 (38-126) U/L Troponin I (0.000-0.034) ng/mL Total Protein 7.9 (6.3-8.2) g/dL Albumin 4.7 (3.5-5.0) g/dL Amylase 64 (30-110) U/L Lipase 186 (23-300) U/L Urine Color Urine Appearance (Clear) Urine pH (5.0-8.0) Ur Specific [place] (1.001-1.035) Urine Protein (Negative) Urine Glucose (UA) (Negative) Urine Ketones (Negative) Urine Blood (Negative) Urine Nitrite (Negative) Urine Bilirubin (Negative) Urine Urobilinogen (<2.0) mg/dL Ur Leukocyte Esterase (Negative) 11/22/24 11/22/24 Range/Units 13:27 13:27 WBC (3.8-10.6) k/uL RBC (3.80-5.40) m/uL Hgb (11.4-16.0) gm/dL Hct (34.0-46.0) % MCV (80.0-100.0) fL MCH (25.0-35.0) pg MCHC (31.0-37.0) g/dL RDW (11.5-15.5) % Plt Count (150-450) k/uL MPV Neutrophils % % Lymphocytes % % Monocytes % % Eosinophils % % Basophils % % Neutrophils # (1.3-7.7) k/uL Lymphocytes # (1.0-4.8) k/uL Monocytes # (0-1.0) k/uL Eosinophils # (0-0.7) k/uL Basophils # (0-0.2) k/uL Sodium (137-145) mmol/L Potassium (3.5-5.1) mmol/L Chloride (98-107) mmol/L Carbon Dioxide (22-30) mmol/L Anion Gap mmol/L BUN (7-17) mg/dL Creatinine (0.52-1.04) mg/dL Est GFR (CKD-EPI)AfAm (>60 ml/min/1.73 sqM) Est GFR (CKD-EPI)NonAf (>60 ml/min/1.73 sqM) Glucose (74-99) mg/dL Plasma Lactic Acid Kyrie (0.7-2.0) mmol/L Calcium (8.4-10.2) mg/dL Magnesium (1.6-2.3) mg/dL Total Bilirubin (0.2-1.3) mg/dL AST (14-36) U/L ALT (4-34) U/L Alkaline Phosphatase (38-126) U/L Troponin I <0.012 (0.000-0.034) ng/mL Total Protein (6.3-8.2) g/dL Albumin (3.5-5.0) g/dL Amylase (30-110) U/L Lipase (23-300) U/L Urine Color Colorless Urine Appearance Clear (Clear) Urine pH 5.5 (5.0-8.0) Ur Specific [place] 1.010 (1.001-1.035) Urine Protein Negative (Negative) Urine Glucose (UA) 4+ H (Negative) Urine Ketones Negative (Negative) Urine Blood Negative (Negative) Urine Nitrite Negative (Negative) Urine Bilirubin Negative (Negative) Urine Urobilinogen <2.0 (<2.0) mg/dL Ur Leukocyte Esterase Negative (Negative) - Radiology Data Radiology results: report reviewed, image reviewed Disposition Clinical Impression: Intractable abdominal pain, Abdominal wall fluid collections Disposition: ADMITTED IP TO THIS HOSP
[2024-11-22 13:10] LABS: Basophils # (A) 0.1 k/uL (0-0.2); Basophils % (A) 1 %; Eosinophils # (A) 0.1 k/uL (0-0.7); Eosinophils % (A) 1 %; HCT 47.5 % (34.0-46.0); HGB 15.9 gm/dL (11.4-16.0); Lymphocytes # (A) 1.9 k/uL (1.0-4.8); Lymphocytes % (A) 20 %; MCHC 33.4 g/dL (31.0-37.0); MCV 89.7 fL (80.0-100.0); Monocytes # (A) 0.4 k/uL (0-1.0); Monocytes % (A) 4 %; Neutrophils # (A) 7.1 k/uL (1.3-7.7); Neutrophils % (A) 73 %; Platelet Count 210 k/uL (150-450); WBC 9.8 k/uL (3.8-10.6)
[2024-11-22 13:20] LABS: ALT 23 U/L (4-34); AST 20 U/L (14-36); African American GFR (CKD) >90 (>60 ml/min/1.73 sqM); Albumin 4.7 g/dL (3.5-5.0); Alkaline Phosphatase 125 U/L (38-126); Amylase 64 U/L (30-110); Anion Gap 13 mmol/L; Blood Urea Nitrogen 17 mg/dL (7-17); Calcium 10.1 mg/dL (8.4-10.2); Carbon Dioxide 23 mmol/L (22-30); Chloride 101 mmol/L (98-107); Glucose 157 mg/dL (74-99); Lipase 186 U/L (23-300); Magnesium 1.8 mg/dL (1.6-2.3); Non-African American GFR(CKD) >90 (>60 ml/min/1.73 sqM); Potassium 4.1 mmol/L (3.5-5.1); Sodium 137 mmol/L (137-145); Total Bilirubin 1.2 mg/dL (0.2-1.3); Total Protein 7.9 g/dL (6.3-8.2)
[2024-11-22 14:06] LABS: Appearance,Urine Clear (Clear); Bilirubin,Urine Negative (Negative); Blood,Urine Negative (Negative); Color,Urine Colorless; Glucose,Urine (UA) 4+ (Negative); Ketones,Urine Negative (Negative); Leukocyte Esterase,Urine Negative (Negative); Nitrite,Urine Negative (Negative); PH, Urine 5.5 (5.0-8.0); Protein,Urine Negative (Negative); Urobilinogen,Urine <2.0 mg/dL (<2.0)
[2024-11-22] MEDS: ORPHENADRINE 30 MG/ML 2 ML VIAL IVP STA (14:42)
[2024-11-22] MEDS: KETOROLAC 15 MG/ML 1 ML VIAL IVP STA (14:46)
--- NOTE | 2024-11-22 15:11 | US ---
EXAMINATION TYPE: US abdomen limited DATE OF EXAM: 11/22/2024 COMPARISON: CT CLINICAL INDICATION: Female, 54 years old with history of Abdominal pain, hx of abscess/seroma; Pt st ates h/o TECHNIQUE: Grayscale imaging of the soft tissue midline ABD. FINDINGS: Heterogeneous area midline soft tissue ABD where pt has h/o ostomy reversal and current dr samuels= 1.3 x 1.0 cm ?similar in appearance when compared to recent CT? IMPRESSION: Small nonspecific collection at the site of clinical concern could reflect a small seroma. Infected c ollection is not excluded. Correlate clinically. [facility], , 11/22/2024 3:09 PM
[2024-11-22] MEDS ORDERED: VANCOMYCIN IV PER PHARMACY 1 EACH MISC MISCELLANE PRN (16:21)
[2024-11-22] MEDS ORDERED: NALOXONE 0.4 MG/ML 1 ML VIAL IV PRN (16:22)
[2024-11-22] MEDS ORDERED: ACETAMINOPHEN TAB 325 MG TAB PO PRN (16:22)
[2024-11-22] MEDS: HYDROmorphone 1 MG/ML 1 ML SYRINGE IVP PRN (17:17)
[2024-11-22] MEDS: CEFEPIME 1 GM in SODIUM CHLORIDE 0.9% 50 ML IVPB SCH (17:18)
[2024-11-22] MEDS: VANCOMYCIN 1,250 MG in SODIUM CHLORIDE 0.9% 250 ML IVPB SCH (18:35)
[2024-11-22] MEDS: methylPREDNISolone SOD SUCCI 125 MG/2 ML VIAL IV STA (19:33)
[2024-11-22] MEDS: FAMOTIDINE 20 MG/2 ML VIAL IV SCH (19:36)
[2024-11-22] MEDS: diphenhydrAMINE 50 MG/ML 1 ML VIAL IVP STA (19:37)
[2024-11-22] MEDS: ONDANSETRON 4 MG/2 ML VIAL IVP PRN (19:39)
[2024-11-22] MEDS: HYDROmorphone 0.5 MG/0.5 ML SYRINGE IVP PRN (19:48)
[2024-11-22] MEDS: cloNIDine HCL 0.1 MG TAB PO SCH (21:53)
[2024-11-22] MEDS: APIXABAN 5 MG TAB PO SCH (21:53)
[2024-11-22] MEDS: GABAPENTIN 400 MG CAP PO SCH (21:54)
[2024-11-22] MEDS: busPIRone HCl 5 MG TAB PO SCH (21:54)
[2024-11-22] MEDS: traZODone HCL 50 MG TAB PO SCH (21:54)
[2024-11-22] MEDS: HYDROcodone/APAP 10-325MG 1 EACH TAB PO SCH (21:59)
--- NOTE | 2024-11-22 23:59 | P.HPIM ---
History of Present Illness H&P Date: 11/22/24 54 year old female who presents to the emergency department for abdominal pain. Patient follows Dr. Lewis and had an ostomy reversal 6 months ago. She ended up having pain afterwards and was found to have concerns of an abscess in the abdominal wall. This was treated successfully and she was doing well afterwards. However, she has since continued to have intermittent bouts of pain. She presented here on 11/03/2024 for abdominal pain. Workup at that time had revealed resolution of the previously demonstrated infection and she was discharged home. States that she continues to have pain. She is taking [place], however this is not effective. States that she is scheduled for surgery on 11/28 to have her abdomen "cleaned out". Denies any nausea/vomiting or diarrhea/constipation. She has a history of CVA with residual expressive aphasia which does limit her ability to provide history to some extent. She does also note being more active and bending a lot more than usual over the last couple of days and wonders if that may have flared up her pain. Blood work completed in ED reveals a WBC of 9.8, hemoglobin of 15.9 and platelet count of 210, sodium 137, potassium 4.1, BUNs/creatinine of 17/0.60 lactic acid level of 1.3, UA is unremarkable Abdominal ultrasound reveals small nonspecific collection at the site of clinical concern could reflect a small seroma. Infected collection is not excluded Review of Systems REVIEW OF SYSTEMS: CONSTITUTIONAL: No fever, no malaise, no fatigue. HEENT: No recent visual problems or hearing problems. Denied any sore throat. CARDIOVASCULAR: No chest pain, orthopnea, PND, no palpitations, no syncope. PULMONARY: No shortness of breath, no cough, no hemoptysis. GASTROINTESTINAL: No diarrhea, no nausea, no vomiting, no abdominal pain. NEUROLOGICAL: No headaches, no weakness, no numbness. HEMATOLOGICAL: Denies any bleeding or petechiae. GENITOURINARY: Denies any burning micturition, frequency, or urgency. MUSCULOSKELETAL/RHEUMATOLOGICAL: Denies any joint pain, swelling, or any muscle pain. ENDOCRINE: Denies any polyuria or polydipsia. The rest of the 14-point review of systems is negative. Past Medical History Past Medical History: COPD, CVA/TIA, Diabetes Mellitus, Deep Vein Thrombosis (DVT), GERD/Reflux, Hyperlipidemia, Hypertension Additional Past Medical History / Comment(s): CVA 2019- expressive aphasia; 2 DVT's; diverticulitis; hernia History of Any Multi-Drug Resistant Organisms: MRSA Date of last positivie culture/infection: 09/03/23 MDRO Source:: Groin Past Surgical History: Bowel Resection Additional Past Surgical History / Comment(s): IVC FILTER 2013. ileostomy. wound vac. ileostomy reversal with hernia repair, with ovary removal-Apr 2024. Past Anesthesia/Blood Transfusion Reactions: No Reported Reaction Past Psychological History: Depression, PTSD Smoking Status: Current every day smoker Past Alcohol Use History: None Reported Past Drug Use History: None Reported Medications and Allergies Home Medications Medication Instructions Recorded Confirmed Type Insulin Glargine,Hum.rec.anlog 50 unit SQ DAILY 08/04/21 11/22/24 History [Lantus Solostar Pen] hydroCHLOROthiazide [Hydrodiuril] 12.5 mg PO DAILY 08/04/21 11/22/24 History busPIRone HCL 15 mg PO TID 03/14/23 11/22/24 History traZODone HCL 150 mg PO HS 03/14/23 11/22/24 History Gabapentin 800 mg PO TID 3 Days #9 tab 07/12/23 11/22/24 Rx Atorvastatin [Lipitor] 80 mg PO DAILY 08/07/23 11/22/24 History Apixaban [Eliquis] 5 mg PO BID 05/03/24 11/22/24 History Ezetimibe [Zetia] 10 mg PO DAILY 05/03/24 11/22/24 History Famotidine 40 mg PO DAILY 05/03/24 11/22/24 History Venlafaxine HCl [Effexor XR] 150 mg PO DAILY 05/03/24 11/22/24 History cloNIDine HCL 0.05 mg PO BID 05/03/24 11/22/24 History lisinopriL 30 mg PO DAILY 05/03/24 11/22/24 History Ipratropium-Albuterol Nebulize 3 ml INHALATION RT-QID 06/15/24 11/22/24 History [Duoneb 0.5 mg-3 mg/3 ml Soln] Dapagliflozin Propanediol [Farxiga] 10 mg PO DAILY 11/22/24 11/22/24 History HYDROcodone/APAP 10-325MG [[place] 1 tab PO TID 11/22/24 11/22/24 History 10-325] Potassium Chloride ER [K-Dur 20] 20 meq PO DAILY 11/22/24 11/22/24 History Allergies Allergy/AdvReac Type Severity Reaction Status Date / Time No Known Allergies Allergy Verified 11/22/24 17:26 Physical Exam Vitals: Vital Signs Temp Pulse Resp BP Pulse Ox 11/22/24 20:38 80 15 150/94 92 L 11/22/24 19:50 98.6 F 80 17 149/102 95 11/22/24 15:00 78 17 168/110 97 11/22/24 12:38 97.1 F L 78 17 173/134 98 Intake and Output 11/22/24 11/22/24 11/22/24 06:59 14:59 22:59 Other: Weight 72.575 kg General appearance: alert, in no apparent distress Head exam: Present: atraumatic, normocephalic, normal inspection Respiratory exam: Present: normal lung sounds bilaterally. Absent: respiratory distress, wheezes, rales, rhonchi, stridor Cardiovascular Exam: Present: regular rate, normal rhythm GI/Abdominal exam: Present: soft, tenderness (diffuse), other (Incision is clean, dry, and intact. There is no surrounding erythema or induration.). Absent: distended Neurological exam: Present: alert, oriented X3, CN II-XII intact Psychiatric exam: Present: normal affect, normal mood Results CBC & Chem 7: 11/22/24 12:51 11/22/24 12:51 Labs: Abnormal Lab Results - Last 24 Hours (Table) 11/22/24 11/22/24 11/22/24 Range/Units 12:51 12:51 13:27 Hct 47.5 H (34.0-46.0) % Glucose 157 H (74-99) mg/dL Urine Glucose (UA) 4+ H (Negative) Assessment and Plan Assessment: 1. Intractable abdominal pain; possible abdominal wall abscess -Patient has been placed on IV antibiotics in form of cefepime and vancomycin; patient reports itching with first dose of cefepime -We will discontinue cefepime and start patient on IV Merrem and continue vancomycin -General Surgery is consulted -Consult ID for recommendations on antibiotic therapy 2. Hypertension; clonidine 0.1 mg twice daily; hydrochlorothiazide 12.5 mg daily; lisinopril 30 mg daily 3. Hyperlipidemia; Zetia 10 mg daily; Lipitor 80 mg daily 4. History of DVT; continue home dose of Eliquis 5. Diabetes mellitus type 2 with long-term insulin use; continue with home dose of Lantus; Farxiga 10 mg daily 6. Diabetic neuropathy; Neurontin 800 mg 3 times daily DVT prophylaxis; SCDs/Eliquis CODE STATUS; full code
[2024-11-23] MEDS ORDERED: MEROPENEM 1 GM in SODIUM CHLORIDE 0.9% 100 ML IVPB SCH
[2024-11-23] MEDS: MEROPENEM 500 MG in SODIUM CHLORIDE 0.9% 100 ML IVPB SCH (01:09)
[2024-11-23] MEDS: IPRATROPIUM-ALBUTEROL 3 ML NEB INHALATION SCH (02:18)
[2024-11-23 07:09] LABS: African American GFR (CKD) >90 (>60 ml/min/1.73 sqM); Anion Gap 10 mmol/L; Blood Urea Nitrogen 19 mg/dL (7-17); Calcium 9.1 mg/dL (8.4-10.2); Carbon Dioxide 20 mmol/L (22-30); Chloride 103 mmol/L (98-107); Glucose 212 mg/dL (74-99); Non-African American GFR(CKD) >90 (>60 ml/min/1.73 sqM); Potassium 4.3 mmol/L (3.5-5.1); Sodium 133 mmol/L (137-145)
[2024-11-23] MEDS: DAPAGLIFLOZIN PROPANEDIOL 10 MG TABLET PO SCH (08:20)
[2024-11-23] MEDS: ATORVASTATIN 80 MG TAB PO SCH (08:20)
[2024-11-23] MEDS: EZETIMIBE 10 MG TAB PO SCH (08:21)
[2024-11-23] MEDS: lisinopriL 10 MG TAB PO SCH (08:21)
[2024-11-23] MEDS: hydroCHLOROthiazide 12.5 MG CAP PO SCH (08:21)
[2024-11-23] MEDS: POTASSIUM CHLORIDE ER 20 MEQ TAB.ER PO SCH (08:21)
[2024-11-23] MEDS: PANTOPRAZOLE 40 MG/10 ML VIAL IV SCH (08:22)
[2024-11-23] MEDS: VENLAFAXINE HCL ER 150 MG CAP PO SCH (08:22)
[2024-11-23 08:29] LABS: Glucose,Whole Blood 205 mg/dL (70-110)
[2024-11-23] MEDS: INSULIN GLARGINE (LANTUS) 100 UNIT/ML SYR SQ SCH (08:48)
[2024-11-23] MEDS ORDERED: NON FORMULARY DRUG (Famotidine [Famotidine] 40 MG Tablet) PO SCH (09:00)
[2024-11-23 09:54] LABS: Basophils # (A) 0.03 X 10*3/uL (0.00-0.10); Basophils % (A) 0.3 %; Eosinophils # (A) 0 X 10*3/uL (0.04-0.35); Eosinophils % (A) 0 %; HCT 42.7 % (37.2-46.3); HGB 13.8 g/dL (12.0-15.0); Lymphocytes # (A) 0.85 X 10*3/uL (0.90-5.00); Lymphocytes % (A) 8.9 %; MCH 29.6 pg (27.0-32.0); MCHC 32.3 g/dL (32.0-37.0); MCV 91.6 FL (80.0-97.0); Mean Platelet Volume 10.7 FL (9.5-12.2); Monocytes # (A) 0.18 X 10*3/uL (0.20-1.00); Monocytes % (A) 1.9 %; NRBC Per 100 WBC 0 X 10*3/uL (0.00-0.01); Neutrophils # (A) 8.47 X 10*3/uL (1.80-7.70); Neutrophils % (A) 88.6 %; Platelet Count 226 X 10*3/uL (140-440); RBC 4.66 X 10*6/uL (4.10-5.20); RDW 13.5 % (11.5-14.5); WBC 9.56 X 10*3/uL (4.50-10.00)
--- NOTE | 2024-11-23 10:22 | P.GSCN ---
History of Present Illness Consult date: 11/23/24 Reason for Consult: Abdominal drainage History of present illness: 54-year-old female known to our service. Patient is actually scheduled for this coming Sunday to have an abdominal wall debridement. Patient has had a chronic draining midline incision. I believe she has mesh from a previous hernia repair. Dr. Lewis is out of town until . She came to the hospital because of increased pain. She had an ultrasound showing some fluid there. Feels better this morning. Was not having any GI issues until she came here and after starting antibiotics that she had vomiting. Patient with history of CVA and some expressive aphasia present. White blood cell count is normal. She is afebrile. Review of Systems The patient denies any acute changes in vision or hearing, no dysphagia or odynophagia, no chest pain or shortness of breath, no dysuria or hematuria, no headache, no runny nose, no rectal bleeding or melena, no unexplained weight loss Past Medical History Past Medical History: COPD, CVA/TIA, Diabetes Mellitus, Deep Vein Thrombosis (DVT), GERD/Reflux, Hyperlipidemia, Hypertension Additional Past Medical History / Comment(s): CVA 2019- expressive aphasia; 2 DVT's; diverticulitis; hernia History of Any Multi-Drug Resistant Organisms: MRSA Year Discovered:: 09/03/23 MDRO Source:: Groin Past Surgical History: Bowel Resection Additional Past Surgical History / Comment(s): IVC FILTER 2013. ileostomy. wound vac. ileostomy reversal with hernia repair, with ovary removal-Apr 2024. Past Anesthesia/Blood Transfusion Reactions: No Reported Reaction Past Psychological History: Depression, PTSD Smoking Status: Current every day smoker Past Alcohol Use History: None Reported Past Drug Use History: None Reported Medications and Allergies Home Medications Medication Instructions Recorded Confirmed Type Insulin Glargine,Hum.rec.anlog 50 unit SQ DAILY 08/04/21 11/22/24 History [Lantus Solostar Pen] hydroCHLOROthiazide [Hydrodiuril] 12.5 mg PO DAILY 08/04/21 11/22/24 History busPIRone HCL 15 mg PO TID 03/14/23 11/22/24 History traZODone HCL 150 mg PO HS 03/14/23 11/22/24 History Gabapentin 800 mg PO TID 3 Days #9 tab 07/12/23 11/22/24 Rx Atorvastatin [Lipitor] 80 mg PO DAILY 08/07/23 11/22/24 History Apixaban [Eliquis] 5 mg PO BID 05/03/24 11/22/24 History Ezetimibe [Zetia] 10 mg PO DAILY 05/03/24 11/22/24 History Famotidine 40 mg PO DAILY 05/03/24 11/22/24 History Venlafaxine HCl [Effexor XR] 150 mg PO DAILY 05/03/24 11/22/24 History cloNIDine HCL 0.05 mg PO BID 05/03/24 11/22/24 History lisinopriL 30 mg PO DAILY 05/03/24 11/22/24 History Ipratropium-Albuterol Nebulize 3 ml INHALATION RT-QID 06/15/24 11/22/24 History [Duoneb 0.5 mg-3 mg/3 ml Soln] Dapagliflozin Propanediol [Farxiga] 10 mg PO DAILY 11/22/24 11/22/24 History HYDROcodone/APAP 10-325MG [[place] 1 tab PO TID 11/22/24 11/22/24 History 10-325] Potassium Chloride ER [K-Dur 20] 20 meq PO DAILY 11/22/24 11/22/24 History Allergies Allergy/AdvReac Type Severity Reaction Status Date / Time No Known Allergies Allergy Verified 11/22/24 17:26 Surgical - Exam Vital Signs Temp Pulse Resp BP Pulse Ox 97.1 F L 78 17 173/134 98 11/22/24 12:38 11/22/24 12:38 11/22/24 12:38 11/22/24 12:38 11/22/24 12:38 Physical exam: General: Well-developed, well-nourished HEENT: Normocephalic, sclerae nonicteric Abdomen: Nontender, nondistended, midline incision well-healed, no erythema, small 2 to 3 mm opening with a small amount of seropurulent drainage present, no fluctuance Extremities: No edema Neuro: Alert and oriented Results - Labs 11/23/24 06:04 11/23/24 06:04 Abnormal Lab Results - Last 24 Hours (Table) 11/22/24 11/22/24 11/22/24 Range/Units 12:51 12:51 13:27 Hct 47.5 H (34.0-46.0) % Neutrophils # (1.80-7.70) X 10*3/uL Lymphocytes # (0.90-5.00) X 10*3/uL Monocytes # (0.20-1.00) X 10*3/uL Eosinophils # (0.04-0.35) X 10*3/uL Sodium (137-145) mmol/L Carbon Dioxide (22-30) mmol/L BUN (7-17) mg/dL Glucose 157 H (74-99) mg/dL POC Glucose (mg/dL) (70-110) mg/dL Urine Glucose (UA) 4+ H (Negative) 11/23/24 11/23/24 11/23/24 Range/Units 06:04 06:04 08:28 Hct (34.0-46.0) % Neutrophils # 8.47 H (1.80-7.70) X 10*3/uL Lymphocytes # 0.85 L (0.90-5.00) X 10*3/uL Monocytes # 0.18 L (0.20-1.00) X 10*3/uL Eosinophils # 0 L (0.04-0.35) X 10*3/uL Sodium 133 L (137-145) mmol/L Carbon Dioxide 20 L (22-30) mmol/L BUN 19 H (7-17) mg/dL Glucose 212 H (74-99) mg/dL POC Glucose (mg/dL) 205 H (70-110) mg/dL Urine Glucose (UA) (Negative) Diabetes panel 11/22/24 11/23/24 Range/Units 12:51 06:04 Sodium 137 133 L (137-145) mmol/L Potassium 4.1 4.3 (3.5-5.1) mmol/L Chloride 101 103 (98-107) mmol/L Carbon Dioxide 23 20 L (22-30) mmol/L BUN 17 19 H (7-17) mg/dL Creatinine 0.60 0.54 (0.52-1.04) mg/dL Glucose 157 H 212 H (74-99) mg/dL Calcium 10.1 9.1 (8.4-10.2) mg/dL AST 20 (14-36) U/L ALT 23 (4-34) U/L Alkaline Phosphatase 125 (38-126) U/L Total Protein 7.9 (6.3-8.2) g/dL Albumin 4.7 (3.5-5.0) g/dL Calcium panel 11/22/24 11/23/24 Range/Units 12:51 06:04 Calcium 10.1 9.1 (8.4-10.2) mg/dL Albumin 4.7 (3.5-5.0) g/dL Pituitary panel 11/22/24 11/23/24 Range/Units 12:51 06:04 Sodium 137 133 L (137-145) mmol/L Potassium 4.1 4.3 (3.5-5.1) mmol/L Chloride 101 103 (98-107) mmol/L Carbon Dioxide 23 20 L (22-30) mmol/L BUN 17 19 H (7-17) mg/dL Creatinine 0.60 0.54 (0.52-1.04) mg/dL Glucose 157 H 212 H (74-99) mg/dL Calcium 10.1 9.1 (8.4-10.2) mg/dL Adrenal panel 11/22/24 11/23/24 Range/Units 12:51 06:04 Sodium 137 133 L (137-145) mmol/L Potassium 4.1 4.3 (3.5-5.1) mmol/L Chloride 101 103 (98-107) mmol/L Carbon Dioxide 23 20 L (22-30) mmol/L BUN 17 19 H (7-17) mg/dL Creatinine 0.60 0.54 (0.52-1.04) mg/dL Glucose 157 H 212 H (74-99) mg/dL Calcium 10.1 9.1 (8.4-10.2) mg/dL Total Bilirubin 1.2 (0.2-1.3) mg/dL AST 20 (14-36) U/L ALT 23 (4-34) U/L Alkaline Phosphatase 125 (38-126) U/L Total Protein 7.9 (6.3-8.2) g/dL Albumin 4.7 (3.5-5.0) g/dL Assessment and Plan (1) Abdominal wall fluid collections Narrative/Plan: 54-year-old female with abdominal pain and abdominal wall fluid collection. Recent CAT scan reviewed from earlier this month. Fluid pocket is quite small. Agree with plans for operative debridement. This will be performed as an outpatient on Sunday. Continue pain control. Consider discharge tomorrow on oral antibiotics and oral analgesics with plans for follow-up admission on Sunday for debridement. Current Visit: Yes Status: Acute Code(s): R18.8 - OTHER ASCITES SNOMED Code(s): 855164497
[2024-11-23 12:46] LABS: Glucose,Whole Blood 144 mg/dL (70-110)
--- NOTE | 2024-11-23 12:58 | P.PN ---
Subjective Progress Note Date: 11/23/24 54 year old female who presents to the emergency department for abdominal pain. Patient follows Dr. Lewis and had an ostomy reversal 6 months ago. She ended up having pain afterwards and was found to have concerns of an abscess in the abdominal wall. This was treated successfully and she was doing well afterwards. However, she has since continued to have intermittent bouts of pain. She presented here on 11/03/2024 for abdominal pain. Workup at that time had revealed resolution of the previously demonstrated infection and she was discharged home. States that she continues to have pain. She is taking [place], however this is not effective. States that she is scheduled for surgery on 11/28 to have her abdomen "cleaned out". Denies any nausea/vomiting or diarrhea/constipation. She has a history of CVA with residual expressive aphasia which does limit her ability to provide history to some extent. She does also note being more active and bending a lot more than usual over the last couple of days and wonders if that may have flared up her pain. Blood work completed in ED reveals a WBC of 9.8, hemoglobin of 15.9 and platelet count of 210, sodium 137, potassium 4.1, BUNs/creatinine of 17/0.60 lactic acid level of 1.3, UA is unremarkable Abdominal ultrasound reveals small nonspecific collection at the site of clinical concern could reflect a small seroma. Infected collection is not excluded Objective - Vital Signs Vital signs: Vital Signs Temp 97.6 F 11/22/24 21: Pulse 64 11/22/24 21:29 Resp 18 11/22/24 21:29 BP 144/96 11/22/24 21:29 Pulse Ox 93 L 11/22/24 21:29 FiO2 Intake & Output 11/22/24 11/22/24 11/23/24 06:59 18:59 06:59 Weight 72.575 kg 72.575 kg Other: # Voids 1 - Exam General appearance: alert, in no apparent distress Head exam: Present: atraumatic, normocephalic, normal inspection Respiratory exam: Present: normal lung sounds bilaterally. Absent: respiratory distress, wheezes, rales, rhonchi, stridor Cardiovascular Exam: Present: regular rate, normal rhythm GI/Abdominal exam: Present: soft, tenderness (diffuse), other (Incision is clean, dry, and intact. There is no surrounding erythema or induration.). Absent: distended Neurological exam: Present: alert, oriented X3, CN II-XII intact Psychiatric exam: Present: normal affect, normal mood - Labs CBC & Chem 7: 11/23/24 06:04 11/23/24 06:04 Labs: Abnormal Lab Results - Last 24 Hours (Table) 11/22/24 11/22/24 11/22/24 Range/Units 12:51 12:51 13:27 Hct 47.5 H (34.0-46.0) % Glucose 157 H (74-99) mg/dL Urine Glucose (UA) 4+ H (Negative) Assessment and Plan Assessment: 1. Intractable abdominal pain; possible abdominal wall abscess -Patient has been placed on IV antibiotics in form of cefepime and vancomycin; patient reports itching with first dose of cefepime -We will discontinue cefepime and start patient on IV Merrem and continue vancomycin -General Surgery is consulted -Consult ID for recommendations on antibiotic therapy 2. Hypertension; clonidine 0.1 mg twice daily; hydrochlorothiazide 12.5 mg daily; lisinopril 30 mg daily 3. Hyperlipidemia; Zetia 10 mg daily; Lipitor 80 mg daily 4. History of DVT; continue home dose of Eliquis 5. Diabetes mellitus type 2 with long-term insulin use; continue with home dose of Lantus; Farxiga 10 mg daily 6. Diabetic neuropathy; Neurontin 800 mg 3 times daily DVT prophylaxis; SCDs/Eliquis CODE STATUS; full code
[2024-11-23] MEDS: NICOTINE 21MG/24HR PATCH TRANSDERM SCH (13:05)
--- NOTE | 2024-11-23 13:54 | P.CONS ---
History of Present Illness - Reason for Consult Consult date: 11/23/24 Abdominal seroma versus abscess Requesting physician: Nanci Arguello - Chief Complaint Abdominal pain x few days - History of Present Illness Patient is a 54-year-old female with a past medical history significant for COPD CVA TIA diabetes mellitus reflux hypertension hyperlipidemia patient apparently did have a chronic draining midline incision from her previous hernia repair and apparently there was scheduled for this Sunday for debridement by the primary surgeon patient presenting to [facility] ER for evaluation of abdominal pain patient been complaining of pain to the mid abdominal area describing it to be dull aching to sharp moderate intens ity without radiation. Denies any nausea vomiting or any diarrhea on presentation to the hospital patient did not have any fever patient was not tachycardic hypotensive or hypoxic patient did have a white count of 9.8 creatinine 0.60 electrolytes are normal liver enzymes are normal UA has been negative patient did have abdominal ultrasound which did show small nonspecific collection at the site of the clinical concern possible seroma infected collection not excluded patient has been started on vancomycin and meropenem, her last abdominal culture from 06/24/2023 positive for Pseudomonas E. coli and the patient also grew MRSA from the groin wound on 09/03/2023, infectious disease was consulted for further management of antibiotic therapy Review of Systems Positive point and negatives has been mentioned in the HPI, complete review of systems was performed and all other systems are negative Past Medical History Past Medical History: COPD, CVA/TIA, Diabetes Mellitus, Deep Vein Thrombosis (DVT), GERD/Reflux, Hyperlipidemia, Hypertension Additional Past Medical History / Comment(s): CVA 2019- expressive aphasia; 2 DVT's; diverticulitis; hernia History of Any Multi-Drug Resistant Organisms: MRSA Year Discovered:: 09/03/23 MDRO Source:: Groin Past Surgical History: Bowel Resection Additional Past Surgical History / Comment(s): IVC FILTER 2013. ileostomy. wound vac. ileostomy reversal with hernia repair, with ovary removal-Apr 2024. Past Anesthesia/Blood Transfusion Reactions: No Reported Reaction Past Psychological History: Depression, PTSD Smoking Status: Current every day smoker Past Alcohol Use History: None Reported Past Drug Use History: None Reported Medications and Allergies Home Medications Medication Instructions Recorded Confirmed Type Insulin Glargine,Hum.rec.anlog 50 unit SQ DAILY 08/04/21 11/22/24 History [Lantus Solostar Pen] hydroCHLOROthiazide [Hydrodiuril] 12.5 mg PO DAILY 08/04/21 11/22/24 History busPIRone HCL 15 mg PO TID 03/14/23 11/22/24 History traZODone HCL 150 mg PO HS 03/14/23 11/22/24 History Gabapentin 800 mg PO TID 3 Days #9 tab 07/12/23 11/22/24 Rx Atorvastatin [Lipitor] 80 mg PO DAILY 08/07/23 11/22/24 History Apixaban [Eliquis] 5 mg PO BID 05/03/24 11/22/24 History Ezetimibe [Zetia] 10 mg PO DAILY 05/03/24 11/22/24 History Famotidine 40 mg PO DAILY 05/03/24 11/22/24 History Venlafaxine HCl [Effexor XR] 150 mg PO DAILY 05/03/24 11/22/24 History cloNIDine HCL 0.05 mg PO BID 05/03/24 11/22/24 History lisinopriL 30 mg PO DAILY 05/03/24 11/22/24 History Ipratropium-Albuterol Nebulize 3 ml INHALATION RT-QID 06/15/24 11/22/24 History [Duoneb 0.5 mg-3 mg/3 ml Soln] Dapagliflozin Propanediol [Farxiga] 10 mg PO DAILY 11/22/24 11/22/24 History HYDROcodone/APAP 10-325MG [[place] 1 tab PO TID 11/22/24 11/22/24 History 10-325] Potassium Chloride ER [K-Dur 20] 20 meq PO DAILY 11/22/24 11/22/24 History Allergies Allergy/AdvReac Type Severity Reaction Status Date / Time No Known Allergies Allergy Verified 11/22/24 17:26 Physical Exam Vitals: Vital Signs Temp Pulse Pulse Resp BP BP Pulse Ox 11/23/24 08:27 66 11/23/24 08:00 17 11/23/24 07:15 97.7 F 64 17 121/78 94 L 11/23/24 00:57 97.6 F 78 17 116/78 93 L 11/22/24 21:29 97.6 F 64 18 144/96 93 L 11/22/24 20:38 80 15 150/94 92 L 11/22/24 19:50 98.6 F 80 17 149/102 95 11/22/24 15:00 78 17 168/110 97 11/22/24 12:38 97.1 F L 78 17 173/134 98 Intake and Output 11/22/24 11/23/24 11/23/24 22:59 06:59 14:59 Other: # Voids 4 Weight 72.575 kg GENERAL DESCRIPTION: Middle-age female lying in bed, no distress. No tachypnea or accessory muscle of respiration use. HEENT: Shows Pallor , no scleral icterus. Oral mucous membrane is dry. NECK: Trachea central, no thyromegaly. LUNGS: Unlabored breathing. Clear to auscultation anteriorly. No wheeze or crackle. HEART: S1, S2, regular rate and rhythm. No loud murmur ABDOMEN: Soft, midline small wound with minimal drainage on the dressing EXTREMITIES: No edema of feet. SKIN: No rash, no masses palpable. NEUROLOGICAL: The patient is awake, alert, oriented x3, mood and affect normal. Results CBC & Chem 7: 11/23/24 06:04 11/23/24 06:04 Labs: Abnormal Lab Results - Last 24 Hours (Table) 11/22/24 11/22/24 11/22/24 Range/Units 12:51 12:51 13:27 Hct 47.5 H (34.0-46.0) % Neutrophils # (1.80-7.70) X 10*3/uL Lymphocytes # (0.90-5.00) X 10*3/uL Monocytes # (0.20-1.00) X 10*3/uL Eosinophils # (0.04-0.35) X 10*3/uL Sodium (137-145) mmol/L Carbon Dioxide (22-30) mmol/L BUN (7-17) mg/dL Glucose 157 H (74-99) mg/dL POC Glucose (mg/dL) (70-110) mg/dL Urine Glucose (UA) 4+ H (Negative) 11/23/24 11/23/24 11/23/24 Range/Units 06:04 06:04 08:28 Hct (34.0-46.0) % Neutrophils # 8.47 H (1.80-7.70) X 10*3/uL Lymphocytes # 0.85 L (0.90-5.00) X 10*3/uL Monocytes # 0.18 L (0.20-1.00) X 10*3/uL Eosinophils # 0 L (0.04-0.35) X 10*3/uL Sodium 133 L (137-145) mmol/L Carbon Dioxide 20 L (22-30) mmol/L BUN 19 H (7-17) mg/dL Glucose 212 H (74-99) mg/dL POC Glucose (mg/dL) 205 H (70-110) mg/dL Urine Glucose (UA) (Negative) Assessment and Plan (1) Abdominal wall fluid collections Current Visit: Yes Status: Acute Code(s): R18.8 - OTHER ASCITES SNOMED Code(s): 074782315 (2) Intractable abdominal pain Current Visit: Yes Status: Acute Code(s): R10.9 - UNSPECIFIED ABDOMINAL PAIN SNOMED Code(s): 32152843 (3) Abnormal CT of the abdomen Current Visit: No Status: Acute Code(s): R93.5 - ABN FINDINGS ON DX IMAGING OF ABD REGIONS, INC RETROPERITON SNOMED Code(s): 44522659034216341 Plan: 1patient presented to hospital abdominal pain in this patient who did have history of chronic nonhealing wound to the mid abdominal area from previous hernia repair surgery and concern for possible underlying mesh now with abnormal fluid collection question of possible seroma infected seroma less likely as the patient not running a fever did not have an elevated white count patient has previously been infected both with Pseudomonas and MRSA 2-for now we will cover the patient with vancomycin however switch meropenem to cefepime We will follow on clinical condition and cultures to further adjust medication if needed Thank you for this consultation we will follow the patient along with you Dictation was produced using [employer] dictation software. please excuse any grammatical, word or spelling errors. Time with Patient: Greater than 30
[2024-11-23] MEDS: CEFEPIME 2 GM in SODIUM CHLORIDE 0.9% 100 ML IVPB SCH (16:29)
[2024-11-23 17:34] LABS: Glucose,Whole Blood 139 mg/dL (70-110)
[2024-11-23] MEDS: VANCOMYCIN 1,250 MG in SODIUM CHLORIDE 0.9% 250 ML IVPB SCH (20:04)
[2024-11-23 20:07] LABS: Glucose,Whole Blood 169 mg/dL (70-110)
[2024-11-24 06:08] LABS: Glucose,Whole Blood 171 mg/dL (70-110)
[2024-11-24] MEDS: INSULIN GLARGINE (LANTUS) 100 UNIT/ML SYR SQ SCH (06:32)
[2024-11-24 07:56] LABS: African American GFR (CKD) >90 (>60 ml/min/1.73 sqM); Anion Gap 10 mmol/L; Blood Urea Nitrogen 21 mg/dL (7-17); Calcium 9.2 mg/dL (8.4-10.2); Carbon Dioxide 24 mmol/L (22-30); Chloride 103 mmol/L (98-107); Glucose 146 mg/dL (74-99); Non-African American GFR(CKD) >90 (>60 ml/min/1.73 sqM); Potassium 3.5 mmol/L (3.5-5.1); Sodium 137 mmol/L (137-145)
[2024-11-24] MEDS: VANCOMYCIN TROUGH DUE 1 EACH MISC MISCELLANE ONE (08:32)
[2024-11-24] MEDS: VANCOMYCIN 1,500 MG in SODIUM CHLORIDE 0.9% 500 ML 500 ML IVPB SCH (09:24)
[2024-11-24 10:33] LABS: HCT 42.8 % (37.2-46.3); MCH 30.2 pg (27.0-32.0); MCHC 32.7 g/dL (32.0-37.0); MCV 92.2 FL (80.0-97.0); Mean Platelet Volume 10.8 FL (9.5-12.2); NRBC Per 100 WBC 0 X 10*3/uL (0.00-0.01); Platelet Count 173 X 10*3/uL (140-440); RBC 4.64 X 10*6/uL (4.10-5.20); RDW 13.6 % (11.5-14.5); WBC 7.63 X 10*3/uL (4.50-10.00)
[2024-11-24 10:34] LABS: Basophils # (A) 0.06 X 10*3/uL (0.00-0.10); Basophils % (A) 0.8 %; Eosinophils # (A) 0.09 X 10*3/uL (0.04-0.35); Eosinophils % (A) 1.2 %; Lymphocytes # (A) 1.41 X 10*3/uL (0.90-5.00); Lymphocytes % (A) 18.5 %; Monocytes # (A) 0.52 X 10*3/uL (0.20-1.00); Monocytes % (A) 6.8 %; Neutrophils # (A) 5.52 X 10*3/uL (1.80-7.70); Neutrophils % (A) 72.3 %
[2024-11-24 12:10] LABS: Glucose,Whole Blood 164 mg/dL (70-110)
--- NOTE | 2024-11-24 13:23 | P.PN ---
Subjective Progress Note Date: 11/24/24 SURGICAL PROGRESS NOTE CHIEF COMPLAINT: Abdominal pain and drainage from old incision HISTORY OF PRESENT ILLNESS: Patient continues to report abdominal pain. She reports drainage from her old incision. Currently no active drainage. Denies any nausea or vomiting. Tolerating diet. Afebrile. WBC 7.63 PHYSICAL EXAM: VITAL SIGNS: Reviewed. GENERAL: Well-developed in no acute distress. ABDOMEN: Soft. Nondistended. Midline incision healed. No erythema. With small 2 to 3 mm opening currently with no drainage noted. NEUROLOGIC: Alert and oriented. Cranial nerves II through XII grossly intact. ASSESSMENT: 1. Abdominal wall fluid collections 2. Abdominal pain PLAN: -Patient scheduled for outpatient debridement on Sunday with Dr. Lewis -Continue oral antibiotics -Continue pain management -Place Eliquis on hold starting tomorrow AM for procedure on Sunday Physician Operating Room Assistant note has been reviewed by physician. Signing provider agrees with the documented findings, assessment, and plan of care. Objective - Vital Signs Vital signs: Vital Signs Temp 97.9 F 11/24/24 07:20 Pulse 69 11/24/24 07:20 Resp 16 11/24/24 07:20 BP 123/76 11/24/24 07:20 Pulse Ox 94 L 11/24/24 07:20 FiO2 Intake & Output 11/23/24 11/24/24 11/24/24 18:59 06:59 18:59 Intake Total 1120 480 Balance 1120 480 Intake: Oral 1120 480 Other: Voiding Method Toilet # Voids 2 2 - Labs CBC & Chem 7: 11/24/24 07:06 11/24/24 07:06 Labs: Abnormal Lab Results - Last 24 Hours (Table) 11/23/24 11/23/24 11/23/24 Range/Units 12:30 17:22 20:05 BUN (7-17) mg/dL Glucose (74-99) mg/dL POC Glucose (mg/dL) 144 H 139 H 169 H (70-110) mg/dL 11/24/24 11/24/24 Range/Units 06:06 07:06 BUN 21 H (7-17) mg/dL Glucose 146 H (74-99) mg/dL POC Glucose (mg/dL) 171 H (70-110) mg/dL
[2024-11-24] MEDS ORDERED: DEXTROSE 50% SYRINGE 50 ML IVP PRN ×2 (14:32)
--- NOTE | 2024-11-24 15:01 | XR ---
EXAMINATION TYPE: XR chest 1V portable DATE OF EXAM: 11/24/2024 2:53 PM COMPARISON: Chest radiographs from 06/01/2024. CLINICAL INDICATION: Female, 54 years old with history of shortness of breath; [facility] TECHNIQUE: XR chest 1V portable Frontal view of the chest. FINDINGS: Lungs/Pleura: There is no evidence of pleural effusion, focal consolidation, or pneumothorax. Pulmonary vascularity: Unremarkable. Heart/mediastinum: Cardiomediastinal silhouette is unremarkable. Musculoskeletal: No acute osseous pathology. IMPRESSION: No acute cardiopulmonary disease/process. [facility], , 11/24/2024 2:59 PM
[2024-11-24] MEDS: IOPAMIDOL CONTRAST (ORAL USE) VIAL PO PRN (15:35)
[2024-11-24 17:09] LABS: Glucose,Whole Blood 132 mg/dL (70-110)
[2024-11-24] MEDS: INSULIN LISPRO (HumaLOG) 100 UNIT/ML 10 mL VL SQ SCH (17:19)
--- NOTE | 2024-11-24 18:16 | CT ---
EXAMINATION TYPE: CT abdomen pelvis wo con DATE OF EXAM: 11/24/2024 5:45 PM COMPARISON: CT abdomen pelvis most recent from 11/03/2024 CLINICAL INDICATION: Female, 54 years old with history of distention; Abdominal distention TECHNIQUE: Axial CT abdomen pelvis wo con;Sagittal and coronal reformats were created on a separate workstation. Contrast used: mL of , (none if empty) Oral contrast used: with Oral Contrast (none if empty) CT DLP: 621.4 mGycm, Automated exposure control for dose reduction was used. FINDINGS: LOWER CHEST: Streaky atelectasis in the right lung base. ABDOMEN LIVER: Unremarkable GALLBLADDER AND BILE DUCTS: Unremarkable. PANCREAS: Unremarkable. SPLEEN: Unremarkable. ADRENAL GLANDS: Unremarkable. KIDNEYS AND URETERS: No evidence of hydronephrosis or renal calculus. The ureters are unremarkable. PELVIS BLADDER: No evidence for wall thickening or mass given limitations of exam. REPRODUCTIVE: Unremarkable. ABDOMEN & PELVIS STOMACH AND BOWEL: No evidence of bowel obstruction. Few scattered colonic diverticula. Moderate stoo l burden in the rectum. PERITONEUM/RETROPERITONEUM: No evidence of pneumoperitoneum or free fluid. VASCULATURE: No evidence of aortic aneurysm. IVC filter in place. MUSCULOSKELETAL: No acute osseous abnormalities LYMPH NODES: No gross evidence for lymphadenopathy. SOFT TISSUE/ABDOMINAL WALL: Postsurgical changes anterior abdominal wall. IMPRESSION: 1. No evidence for acute abdominal process. 2. Hepatic steatosis. [facility], , 11/24/2024 6:13 PM
[2024-11-24 20:24] LABS: Glucose,Whole Blood 180 mg/dL (70-110)
--- NOTE | 2024-11-25 00:34 | PN ---
PROGRESS NOTE DATE OF SERVICE: 11/24/2024 SUBJECTIVE: This is a 54-year-old woman, who was admitted with multiple medical issues including intractable abdominal pain, also had possible abdominal wall abscess. The patient also had fluid leaking from the abdominal wall. The patient is on empiric antibiotics. Cultures are negative so far. White count is normal. The patient has minimal abdominal distention. Multiple consultants are following the patient closely. PAST MEDICAL HISTORY: Reviewed. REVIEW OF SYSTEMS: A 14-point review of systems is negative except as mentioned earlier. CURRENT MEDICATIONS: Reviewed. PHYSICAL EXAMINATION: VITAL SIGNS: Pulse is 69, blood pressure 110/73, respirations 16. CHEST: Few scattered rhonchi and crackles. ABDOMEN: Soft, distended. Minimal tenderness. No guarding. No rigidity. Leaking fluid present. LABORATORY DATA: Noted. ASSESSMENT: 1. Intractable abdominal pain with possible abdominal abscess with failure of outpatient treatment, on broad-spectrum IV antibiotics. 2. Hypertension. 3. Hyperlipidemia. 4. Methicillin-resistant Staphylococcus aureus from the wound previously. 5. History of deep venous thrombosis. 6. Diabetes mellitus type 2. 7. Abdominal distention. RECOMMENDATIONS AND DISCUSSION: Recommended to continue current management, continue symptomatic treatment. Otherwise, at this time, I would also recommend cultures. Continue with the antibiotics. CT scan of the abdomen and pelvis. The patient is on cefepime. ID as well as Surgical evaluation. Monitor blood sugars closely. Further recommendations to follow. MMGENESISL / ROSALES: [id number] /
[2024-11-25 05:13] LABS: African American GFR (CKD) >90 (>60 ml/min/1.73 sqM); Anion Gap 11 mmol/L; Blood Urea Nitrogen 20 mg/dL (7-17); Calcium 9.3 mg/dL (8.4-10.2); Carbon Dioxide 21 mmol/L (22-30); Chloride 104 mmol/L (98-107); Glucose 147 mg/dL (74-99); Non-African American GFR(CKD) >90 (>60 ml/min/1.73 sqM); Potassium 3.7 mmol/L (3.5-5.1); Sodium 136 mmol/L (137-145)
[2024-11-25 06:05] LABS: Glucose,Whole Blood 142 mg/dL (70-110)
[2024-11-25 08:32] LABS: Basophils # (A) 0.05 X 10*3/uL (0.00-0.10); Basophils % (A) 0.7 %; Eosinophils # (A) 0.15 X 10*3/uL (0.04-0.35); HCT 43.2 % (37.2-46.3); HGB 13.8 g/dL (12.0-15.0); Lymphocytes % (A) 10.5 %; MCH 29.7 pg (27.0-32.0); MCHC 31.9 g/dL (32.0-37.0); MCV 92.9 FL (80.0-97.0); Monocytes # (A) 0.59 X 10*3/uL (0.20-1.00); Monocytes % (A) 7.7 %; NRBC Per 100 WBC 0 X 10*3/uL (0.00-0.01); Neutrophils # (A) 6.01 X 10*3/uL (1.80-7.70); Neutrophils % (A) 78.7 %; Platelet Count 169 X 10*3/uL (140-440); RBC 4.65 X 10*6/uL (4.10-5.20); RDW 13.7 % (11.5-14.5); WBC 7.63 X 10*3/uL (4.50-10.00)
[2024-11-25] MEDS ORDERED: VANCOMYCIN TROUGH DUE 1 EACH MISC MISCELLANE ONE (09:15)
[2024-11-25] MEDS: cloNIDine HCL 0.1 MG TAB PO STA (09:42)
[2024-11-25 12:25] LABS: Glucose,Whole Blood 95 mg/dL (70-110)
--- NOTE | 2024-11-25 13:04 | P.PN ---
Subjective Progress Note Date: 11/25/24 SURGICAL PROGRESS NOTE CHIEF COMPLAINT: Abdominal pain and drainage from old incision HISTORY OF PRESENT ILLNESS: Patient continues to report abdominal pain. She reports a small amount of drainage from the wound. She showered today. Infectious ease awaiting wound cultures finalized. Afebrile. Patient had a repeat CT scan abdomen pelvis which reports no evidence for acute abdominal process. Hepatic steatosis. WBC 7.63 PHYSICAL EXAM: VITAL SIGNS: Reviewed. GENERAL: Well-developed in no acute distress. ABDOMEN: Soft. Nondistended. Midline incision healed. No erythema. With small 2 to 3 mm opening currently with no drainage noted. NEUROLOGIC: Alert and oriented. Cranial nerves II through XII grossly intact. ASSESSMENT: 1. Abdominal wall fluid collection. CT scan reporting no evidence of fluid collection 2. Abdominal pain PLAN: -Patient scheduled for outpatient debridement on Sunday with Dr. Lewis -Continue oral antibiotics -Continue pain management -Place Eliquis on hold starting tomorrow AM for procedure on Sunday Physician Retirement Assistant note has been reviewed by physician. Signing provider agrees with the documented findings, assessment, and plan of care. I have personally seen and examined the patient, reviewed the TECHNICAL PROGRAM MANAGER /PAs history, exam and MDM and agree with the assessment and plan as written. Based on total visit time, I have performed more than 50% of the visit. As above: Patient still having discomfort. CAT scan reviewed showing no abscess collection currently. May discharge from our point of view with outpatient debridement scheduled on Sunday. Objective - Vital Signs Vital signs: Vital Signs Temp 98.2 F 11/25/24 07:05 Pulse 72 11/25/24 12:36 Resp 16 11/25/24 12:36 BP 152/89 11/25/24 07:05 Pulse Ox 93 L 11/25/24 07:05 FiO2 Intake & Output 11/24/24 11/25/24 11/25/24 18:59 06:59 18:59 Intake Total 1200 480 Balance 1200 480 Intake: Oral 1200 480 Other: Voiding Method Toilet Toilet Toilet # Voids 3 2 - Labs CBC & Chem 7: 11/25/24 04:17 11/25/24 04:17 Labs: Abnormal Lab Results - Last 24 Hours (Table) 11/24/24 11/24/24 11/24/24 Range/Units 07:06 17:07 20:23 MCHC (32.0-37.0) g/dL Lymphocytes # (0.90-5.00) X 10*3/uL Sodium (137-145) mmol/L Carbon Dioxide (22-30) mmol/L BUN (7-17) mg/dL Glucose (74-99) mg/dL POC Glucose (mg/dL) 132 H 180 H (70-110) mg/dL Hemoglobin A1c 8.7 H (<=6.0) % 11/25/24 11/25/24 11/25/24 Range/Units 04:17 04:17 06:04 MCHC 31.9 L (32.0-37.0) g/dL Lymphocytes # 0.80 L (0.90-5.00) X 10*3/uL Sodium 136 L (137-145) mmol/L Carbon Dioxide 21 L (22-30) mmol/L BUN 20 H (7-17) mg/dL Glucose 147 H (74-99) mg/dL POC Glucose (mg/dL) 142 H (70-110) mg/dL Hemoglobin A1c (<=6.0) % Microbiology - Last 24 Hours (Table) 11/24/24 14:55 Gram Stain - Preliminary Abdomen
--- NOTE | 2024-11-25 14:54 | P.PN ---
Subjective Progress Note Date: 11/24/24 Principal diagnosis: Reason for follow-up is abdominal pain/abdominal wall fluid collection Patient is a 54-year-old female with a past medical history significant for COPD CVA TIA diabetes mellitus reflux hypertension hyperlipidemia patient apparently did have a chronic draining midline incision from her previous hernia repair and patient presented with worsening pain, with ultrasound suggestive of fluid collection question of seroma versus infected seroma probably this consultation On today's evaluation that is 11/24/2024, patient has been afebrile, patient is breathing comfortably and is currently on room air, patient denies having any significant cough no chest pain, patient denies nausea vomiting or diarrhea still complaining of mid abdominal pain but no worsening. Patient did have a white count of 7.63 creatinine 0.56 Objective - Vital Signs Vital signs: Vital Signs Temp 97.9 F 11/24/24 07:20 Pulse 69 11/24/24 07:20 Resp 16 11/24/24 07:20 BP 123/76 11/24/24 07:20 Pulse Ox 94 L 11/24/24 07:20 FiO2 Intake & Output 11/23/24 11/24/24 11/24/24 18:59 06:59 18:59 Intake Total 1120 480 Balance 1120 480 Intake: Oral 1120 480 Other: Voiding Method Toilet # Voids 2 2 - Exam GENERAL DESCRIPTION: Middle-age female lying in bed in no distress RESPIRATORY SYSTEM: Unlabored breathing , decreased breath sounds at bases HEART: S1 S2 regular rate and rhythm , ABDOMEN: Soft , no tenderness EXTREMITIES: No edema feet - Labs CBC & Chem 7: 11/25/24 04:17 11/25/24 04:17 Labs: Abnormal Lab Results - Last 24 Hours (Table) 11/23/24 11/23/24 11/24/24 Range/Units 17:22 20:05 06:06 BUN (7-17) mg/dL Glucose (74-99) mg/dL POC Glucose (mg/dL) 139 H 169 H 171 H (70-110) mg/dL 11/24/24 11/24/24 Range/Units 07:06 12:08 BUN 21 H (7-17) mg/dL Glucose 146 H (74-99) mg/dL POC Glucose (mg/dL) 164 H (70-110) mg/dL Assessment and Plan (1) Abdominal wall fluid collections Current Visit: Yes Status: Acute Code(s): R18.8 - OTHER ASCITES SNOMED Code(s): 858130590 (2) Intractable abdominal pain Current Visit: Yes Status: Acute Code(s): R10.9 - UNSPECIFIED ABDOMINAL PAIN SNOMED Code(s): 25227613 (3) Abnormal CT of the abdomen Current Visit: No Status: Acute Code(s): R93.5 - ABN FINDINGS ON DX IMAGING OF ABD REGIONS, INC RETROPERITON SNOMED Code(s): 45054348400586859 Plan: 1patient presented to hospital abdominal pain in this patient who did have history of chronic nonhealing wound to the mid abdominal area from previous hernia repair surgery and concern for possible underlying mesh now with abnormal fluid collection question of possible seroma infected seroma less likely as the patient not running a fever did not have an elevated white count patient has previously been infected both with Pseudomonas and MRSA 2-patient is currently being treated with vancomycin and cefepime while waiting for the workup to be completed Dictation was produced using [employer] dictation software. please excuse any grammatical, word or spelling errors.
--- NOTE | 2024-11-25 14:54 | P.PN ---
Subjective Progress Note Date: 11/25/24 Principal diagnosis: Reason for follow-up is abdominal pain/abdominal wall fluid collection Patient is a 54-year-old female with a past medical history significant for COPD CVA TIA diabetes mellitus reflux hypertension hyperlipidemia patient apparently did have a chronic draining midline incision from her previous hernia repair and patient presented with worsening pain, with ultrasound suggestive of fluid collection question of seroma versus infected seroma probably this consultation On today's evaluation that is 11/25/2024, Patient is afebrile this morning patie nt denies having any chest pain shortness of breath or cough, the patient is currently on room air, patient denies any nausea no vomiting, some improvement in the mid abdominal pain and did have some drainage was cultured. Patient white count 7.63 creatinine 0.56 cultures obtained yesterday currently pending Objective - Vital Signs Vital signs: Vital Signs Temp 98.2 F 11/25/24 07:05 Pulse 72 11/25/24 12:36 Resp 16 11/25/24 12:36 BP 152/89 11/25/24 07:05 Pulse Ox 93 L 11/25/24 07:05 FiO2 Intake & Output 11/24/24 11/25/24 11/25/24 18:59 06:59 18:59 Intake Total 1200 480 Balance 1200 480 Intake: Oral 1200 480 Other: Voiding Method Toilet Toilet Toilet # Voids 3 2 - Exam GENERAL DESCRIPTION: Middle-age female lying in bed in no distress RESPIRATORY SYSTEM: Unlabored breathing , decreased breath sounds at bases HEART: S1 S2 regular rate and rhythm , ABDOMEN: Soft , no tenderness EXTREMITIES: No edema feet - Labs CBC & Chem 7: 11/25/24 04:17 11/25/24 04:17 Labs: Abnormal Lab Results - Last 24 Hours (Table) 11/24/24 11/24/24 11/24/24 Range/Units 07:06 17:07 20:23 MCHC (32.0-37.0) g/dL Lymphocytes # (0.90-5.00) X 10*3/uL Sodium (137-145) mmol/L Carbon Dioxide (22-30) mmol/L BUN (7-17) mg/dL Glucose (74-99) mg/dL POC Glucose (mg/dL) 132 H 180 H (70-110) mg/dL Hemoglobin A1c 8.7 H (<=6.0) % 11/25/24 11/25/24 11/25/24 Range/Units 04:17 04:17 06:04 MCHC 31.9 L (32.0-37.0) g/dL Lymphocytes # 0.80 L (0.90-5.00) X 10*3/uL Sodium 136 L (137-145) mmol/L Carbon Dioxide 21 L (22-30) mmol/L BUN 20 H (7-17) mg/dL Glucose 147 H (74-99) mg/dL POC Glucose (mg/dL) 142 H (70-110) mg/dL Hemoglobin A1c (<=6.0) % Microbiology - Last 24 Hours (Table) 11/24/24 14:55 Gram Stain - Preliminary Abdomen Assessment and Plan (1) Abdominal wall fluid collections Current Visit: Yes Status: Acute Code(s): R18.8 - OTHER ASCITES SNOMED Code(s): 997879546 (2) Intractable abdominal pain Current Visit: Yes Status: Acute Code(s): R10.9 - UNSPECIFIED ABDOMINAL PAIN SNOMED Code(s): 63409403 (3) Abnormal CT of the abdomen Current Visit: No Status: Acute Code(s): R93.5 - ABN FINDINGS ON DX IMAGING OF ABD REGIONS, INC RETROPERITON SNOMED Code(s): 42604874124792381 Plan: 1patient presented to hospital abdominal pain in this patient who did have history of chronic nonhealing wound to the mid abdominal area from previous hernia repair surgery and concern for possible underlying mesh now with abnormal fluid collection question of possible seroma infected seroma less likely as the patient not running a fever did not have an elevated white count patient has previously been infected both with Pseudomonas and MRSA 2-patient did have some drainage yesterday which has been cultured however CT did not show any acute process, patient is currently being treated with vancomycin and cefepime while waiting for the cultures to be completed Dictation was produced using [employer] dictation software. please excuse any grammatical, word or spelling errors.
[2024-11-25] MEDS: HEPARIN SODIUM,PORCINE 5,000 UNIT/ML 1 ML VIAL SQ SCH (16:20)
[2024-11-25 17:17] LABS: Glucose,Whole Blood 167 mg/dL (70-110)
[2024-11-25 20:40] LABS: Glucose,Whole Blood 130 mg/dL (70-110)
--- NOTE | 2024-11-25 23:10 | PN ---
PROGRESS NOTE DATE OF SERVICE: 11/25/2024 SUBJECTIVE: This is a 54-year-old woman, who was admitted with persistent leakage and abdominal wall infection, who is being closely monitored. CT scan showed no acute abnormality. The patient is on multiple antibiotics. Cultures are negative so far. PHYSICAL EXAMINATION: VITAL SIGNS: Pulse is 76, blood pressure is 130/70, respirations 16. CHEST: Clear to auscultation. CARDIOVASCULAR: S1, S2. ABDOMEN: Soft, obese. Drainage clear from the mid part of the upper abdomen present. LABORATORY DATA: Noted. ASSESSMENT: 1. Intractable abdominal pain with possible abdominal wall abscess with persistent drainage with failure of outpatient treatment, on broad-spectrum IV antibiotics. 2. Hypertension. 3. Hyperlipidemia. 4. Methicillin-resistant Staphylococcus aureus from the wound previously. 5. Multiple medical issues. RECOMMENDATIONS: Recommended to continue with the current management, continue symptomatic treatment. Continue with IV antibiotics. Follow up with Surgery and ID. Prognosis is extremely guarded. Further recommendations to follow. MMODL / IJN: [id number] /
[2024-11-26 05:55] LABS: Glucose,Whole Blood 128 mg/dL (70-110)
[2024-11-26 09:52] LABS: Basophils % (A) 1 %; Eosinophils # (A) 0.2 k/uL (0-0.7); Eosinophils % (A) 3 %; HCT 44.5 % (34.0-46.0); HGB 14.4 gm/dL (11.4-16.0); Lymphocytes # (A) 0.8 k/uL (1.0-4.8); Lymphocytes % (A) 10 %; MCH 29.4 pg (25.0-35.0); MCHC 32.3 g/dL (31.0-37.0); Mean Platelet Volume 8.3; Monocytes # (A) 0.4 k/uL (0-1.0); Monocytes % (A) 6 %; Neutrophils # (A) 6.3 k/uL (1.3-7.7); Neutrophils % (A) 80 %; Platelet Count 169 k/uL (150-450); RBC 4.89 m/uL (3.80-5.40); RDW 13.9 % (11.5-15.5); WBC 7.9 k/uL (3.8-10.6)
[2024-11-26 10:00] LABS: African American GFR (CKD) >90 (>60 ml/min/1.73 sqM); Anion Gap 9 mmol/L; Blood Urea Nitrogen 18 mg/dL (7-17); Calcium 9.4 mg/dL (8.4-10.2); Carbon Dioxide 21 mmol/L (22-30); Chloride 104 mmol/L (98-107); Glucose 151 mg/dL (74-99); Non-African American GFR(CKD) >90 (>60 ml/min/1.73 sqM); Potassium 4.1 mmol/L (3.5-5.1); Sodium 134 mmol/L (137-145)
[2024-11-26] MEDS: VANCOMYCIN TROUGH DUE 1 EACH MISC MISCELLANE ONE (10:04)
[2024-11-26 12:30] LABS: Glucose,Whole Blood 133 mg/dL (70-110)
--- NOTE | 2024-11-26 13:06 | P.PN ---
Subjective Progress Note Date: 11/26/24 SURGICAL PROGRESS NOTE CHIEF COMPLAINT: Abdominal pain and drainage from old incision HISTORY OF PRESENT ILLNESS: Patient lying in bed comfortably. Her pain is controlled. Reports minimal drainage from her wound. Afebrile. WBC 7.9 PHYSICAL EXAM: VITAL SIGNS: Reviewed. GENERAL: Well-developed in no acute distress. ABDOMEN: Soft. Nondistended. Midline incision healed. No erythema. With small 2 to 3 mm opening currently with no drainage noted. NEUROLOGIC: Alert and oriented. Cranial nerves II through XII grossly intact. ASSESSMENT: 1. Abdominal wall fluid collection. CT scan reporting no evidence of fluid collection 2. Abdominal pain PLAN: -Patient scheduled for debridement on Sunday with Dr. Lewis -Continue antibiotics per ID service -Continue pain management -Continue to hold Elimissaelis Physician Lever Operator note has been reviewed by physician. Signing provider agrees with the documented findings, assessment, and plan of care. Objective - Vital Signs Vital signs: Vital Signs Temp 98.3 F 11/26/24 07:59 Pulse 70 11/26/24 12:24 Resp 17 11/26/24 07:59 BP 122/81 11/26/24 07:59 Pulse Ox 94 L 11/26/24 07:59 FiO2 Intake & Output 11/25/24 11/26/24 11/26/24 18:59 06:59 18:59 Intake Total 1310 118 Balance 1310 118 Intake: Oral 1310 118 Other: Voiding Method Toilet Toilet Toilet # Voids 3 2 - Labs CBC & Chem 7: 11/26/24 09:16 11/26/24 09:16 Labs: Abnormal Lab Results - Last 24 Hours (Table) 11/25/24 11/25/24 11/26/24 Range/Units 17:16 20:39 05:54 Lymphocytes # (1.0-4.8) k/uL Sodium (137-145) mmol/L Carbon Dioxide (22-30) mmol/L BUN (7-17) mg/dL Glucose (74-99) mg/dL POC Glucose (mg/dL) 167 H 130 H 128 H (70-110) mg/dL 11/26/24 11/26/24 11/26/24 Range/Units 09:16 09:16 12:27 Lymphocytes # 0.8 L (1.0-4.8) k/uL Sodium 134 L (137-145) mmol/L Carbon Dioxide 21 L (22-30) mmol/L BUN 18 H (7-17) mg/dL Glucose 151 H (74-99) mg/dL POC Glucose (mg/dL) 133 H (70-110) mg/dL Microbiology - Last 24 Hours (Table) 11/24/24 14:55 Gram Stain - Final Abdomen Wound Culture - Final
--- NOTE | 2024-11-26 15:55 | P.PN ---
Subjective Progress Note Date: 11/26/24 Principal diagnosis: Reason for follow-up is abdominal pain/abdominal wall fluid collection Patient is a 54-year-old female with a past medical history significant for COPD CVA TIA diabetes mellitus reflux hypertension hyperlipidemia patient apparently did have a chronic draining midline incision from her previous hernia repair and patient presented with worsening pain, with ultrasound suggestive of fluid collection question of seroma versus infected seroma probably this consultation On today's evaluation that is 11/26/2024,the patient denies any fever or any chi lls, patient is breathing comfortably on room air, the patient denies chest pain shortness of breath and no significant cough, patient denies nausea vomiting or diarrhea still complaining of midline abdominal pain but no worsening. Patient white count 7.9, creatinine 0.53 Vanco trough low at 11.0. Objective - Vital Signs Vital signs: Vital Signs Temp 98.3 F 11/26/24 07:59 Pulse 65 11/26/24 07:59 Resp 17 11/26/24 07:59 BP 122/81 11/26/24 07:59 Pulse Ox 94 L 11/26/24 07:59 FiO2 Intake & Output 11/25/24 11/26/24 11/26/24 18:59 06:59 18:59 Intake Total 1310 118 Balance 1310 118 Intake: Oral 1310 118 Other: Voiding Method Toilet Toilet Toilet # Voids 3 2 - Exam GENERAL DESCRIPTION: Middle-age female lying in bed in no distress RESPIRATORY SYSTEM: Unlabored breathing , decreased breath sounds at bases HEART: S1 S2 regular rate and rhythm , ABDOMEN: Soft , no tenderness EXTREMITIES: No edema feet - Labs CBC & Chem 7: 11/26/24 09:16 11/26/24 09:16 Labs: Abnormal Lab Results - Last 24 Hours (Table) 11/24/24 11/25/24 11/25/24 Range/Units 07:06 17:16 20:39 Lymphocytes # (1.0-4.8) k/uL Sodium (137-145) mmol/L Carbon Dioxide (22-30) mmol/L BUN (7-17) mg/dL Glucose (74-99) mg/dL POC Glucose (mg/dL) 167 H 130 H (70-110) mg/dL Hemoglobin A1c 8.7 H (<=6.0) % 0411/26/24 11/26/24 Range/Units 05:54 09:16 09:16 Lymphocytes # 0.8 L (1.0-4.8) k/uL Sodium 134 L (137-145) mmol/L Carbon Dioxide 21 L (22-30) mmol/L BUN 18 H (7-17) mg/dL Glucose 151 H (74-99) mg/dL POC Glucose (mg/dL) 128 H (70-110) mg/dL Hemoglobin A1c (<=6.0) % Microbiology - Last 24 Hours (Table) 11/24/24 14:55 Gram Stain - Final Abdomen Wound Culture - Final Assessment and Plan (1) Abdominal wall fluid collections Current Visit: Yes Status: Acute Code(s): R18.8 - OTHER ASCITES SNOMED Code(s): 298973788 (2) Intractable abdominal pain Current Visit: Yes Status: Acute Code(s): R10.9 - UNSPECIFIED ABDOMINAL PAIN SNOMED Code(s): 10904060 (3) Abnormal CT of the abdomen Current Visit: No Status: Acute Code(s): R93.5 - ABN FINDINGS ON DX IMAGING OF ABD REGIONS, INC RETROPERITON SNOMED Code(s): 69958870700431591 Plan: 1patient presented to hospital abdominal pain in this patient who did have history of chronic nonhealing wound to the mid abdominal area from previous hernia repair surgery and concern for possible underlying mesh now with abnormal fluid collection question of possible seroma infected seroma less likely as the patient not running a fever did not have an elevated white count patient has pr eviously been infected both with Pseudomonas and MRSA 2-patient did have some drainage yesterday which has been cultured however CT did not show any acute process, await surgical exploration and drainage scheduled for this Sunday may continue vancomycin and cefepime Dictation was produced using [employer] dictation software. please excuse any grammatical, word or spelling errors. Time with Patient: Less than 30
[2024-11-26 17:13] LABS: Glucose,Whole Blood 118 mg/dL (70-110)
[2024-11-26 20:16] LABS: Glucose,Whole Blood 281 mg/dL (70-110)
--- NOTE | 2024-11-27 02:10 | PN ---
PROGRESS NOTE DATE OF SERVICE: 11/26/2024 SUBJECTIVE: This is a 54-year-old woman, who was admitted with significant abdominal pain and drainage, had abdominal CT scan. The patient is on broad-spectrum IV antibiotics. Awaiting surgical procedure. OBJECTIVE: VITAL SIGNS: Pulse is 65, blood pressure 120/81, respirations 17. CHEST: Clear to auscultation. CARDIOVASCULAR: S1, S2. ABDOMEN: Soft. Drainage from the midline abdominal wall wound present. LABORATORY DATA: Noted. ASSESSMENT: 1. Intractable abdominal pain with possible abdominal wall abscess with persistent drainage with failure of outpatient treatment, on broad-spectrum IV antibiotics. 2. Hypertension. 3. Hyperlipidemia. 4. History of Methicillin-resistant Staphylococcus aureus from the wound previously. 5. Multiple medical issues. RECOMMENDATIONS AND DISCUSSION: I recommend to continue current management and continue symptomatic treatment. Otherwise, at this time, I recommend to continue the broad-spectrum IV antibiotics. Surgical evaluation. Pain management. Guarded prognosis. Further recommendations to follow. MMODL / IJN: [id number] /
[2024-11-27 05:38] LABS: Glucose,Whole Blood 152 mg/dL (70-110)
[2024-11-27 11:15] LABS: Glucose,Whole Blood 111 mg/dL (70-110)
--- NOTE | 2024-11-27 13:35 | P.PN ---
Subjective Progress Note Date: 11/27/24 Principal diagnosis: Reason for follow-up is abdominal pain/abdominal wall fluid collection Patient is a 54-year-old female with a past medical history significant for COPD CVA TIA diabetes mellitus reflux hypertension hyperlipidemia patient apparently did have a chronic draining midline incision from her previous hernia repair and patient presented with worsening pain, with ultrasound suggestive of fluid collection question of seroma versus infected seroma probably this consultation On today's evaluation that is 11/27/2024,the patient remains to be afebrile, pat ient is on room air not requiring supplemental oxygen and denies any shortness of breath no chest pain or cough.Patient denies having any nausea or vomiting, abdominal pain slightly decreased in intensity no further drainage no diarrhea. No new lab has been obtained today Objective - Vital Signs Vital signs: Vital Signs Temp 97.8 F 11/27/24 08:00 Pulse 93 11/27/24 12:08 Resp 16 11/27/24 08:00 BP 112/75 11/27/24 12:08 Pulse Ox 96 11/27/24 08:00 FiO2 Intake & Output 11/26/24 11/27/24 11/27/24 18:59 06:59 18:59 Intake Total 236 118 Balance 236 118 Intake: Oral 236 118 Other: Voiding Method Toilet # Voids 3 3 - Exam GENERAL DESCRIPTION: Middle-age female lying in bed in no distress RESPIRATORY SYSTEM: Unlabored breathing , decreased breath sounds at bases HEART: S1 S2 regular rate and rhythm , ABDOMEN: Soft , no tenderness EXTREMITIES: No edema feet - Labs CBC & Chem 7: 11/26/24 09:16 11/26/24 09:16 Labs: Abnormal Lab Results - Last 24 Hours (Table) 11/26/24 11/26/24 11/27/24 Range/Units 17:11 20:14 05:34 POC Glucose (mg/dL) 118 H 281 H 152 H (70-110) mg/dL 11/27/24 Range/Units 11:14 POC Glucose (mg/dL) 111 H (70-110) mg/dL Microbiology - Last 24 Hours (Table) 11/24/24 14:55 Gram Stain - Final Abdomen Wound Culture - Final Assessment and Plan (1) Abdominal wall fluid collections Current Visit: Yes Status: Acute Code(s): R18.8 - OTHER ASCITES SNOMED Code(s): 497608677 (2) Intractable abdominal pain Current Visit: Yes Status: Acute Code(s): R10.9 - UNSPECIFIED ABDOMINAL PAIN SNOMED Code(s): 10958495 (3) Abnormal CT of the abdomen Current Visit: No Status: Acute Code(s): R93.5 - ABN FINDINGS ON DX IMAGING OF ABD REGIONS, INC RETROPERITON SNOMED Code(s): 17536075657590265 Plan: 1patient presented to hospital abdominal pain in this patient who did have history of chronic nonhealing wound to the mid abdominal area from previous hernia repair surgery and concern for possible underlying mesh now with abnormal fluid collection question of possible seroma infected seroma less likely as the patient not running a fever did not have an elevated white count patient has previously been infected both with Pseudomonas and MRSA 2-patient await surgical exploration and drainage scheduled for this Sunday and hopefully any cultures that may determine further need for antibiotic therapy Dictation was produced using [employer] dictation software. please excuse any grammatical, word or spelling errors. Time with Patient: Less than 30
--- NOTE | 2024-11-27 15:12 | P.PN ---
Subjective Progress Note Date: 11/27/24 SURGICAL PROGRESS NOTE CHIEF COMPLAINT: Abdominal pain and drainage from old incision HISTORY OF PRESENT ILLNESS: Patient reports improvement in her abdominal pain. She reports no drainage from the old incision site at this time. Afebrile. PHYSICAL EXAM: VITAL SIGNS: Reviewed. GENERAL: Well-developed in no acute distress. ABDOMEN: Soft. Nondistended. Midline incision healed. No erythema. Small scab noted. No drainage. NEUROLOGIC: Alert and oriented. Cranial nerves II through XII grossly intact. ASSESSMENT: 1. Abdominal wall fluid collection. CT scan reporting no evidence of fluid co llection 2. Abdominal pain PLAN: -Patient scheduled for debridement tomorrow with Dr. Lewis -Continue antibiotics per ID service -Continue to hold Elimissaelis Physician Veteran Appeals Reviewer note has been reviewed by physician. Signing provider agrees with the documented findings, assessment, and plan of care. Objective - Vital Signs Vital signs: Vital Signs Temp 97.3 F L 11/27/24 14:00 Pulse 72 11/27/24 14:00 Resp 16 11/27/24 14:00 BP 93/61 11/27/24 14:00 Pulse Ox 96 11/27/24 14:00 FiO2 Intake & Output 11/26/24 11/27/24 11/27/24 18:59 06:59 18:59 Intake Total 236 236 Balance 236 236 Intake: Oral 236 236 Other: Voiding Method Toilet # Voids 3 3 - Labs CBC & Chem 7: 11/26/24 09:16 11/26/24 09:16 Labs: Abnormal Lab Results - Last 24 Hours (Table) 11/26/24 11/26/24 11/27/24 Range/Units 17:11 20:14 05:34 POC Glucose (mg/dL) 118 H 281 H 152 H (70-110) mg/dL 11/27/24 Range/Units 11:14 POC Glucose (mg/dL) 111 H (70-110) mg/dL
[2024-11-27 17:24] LABS: Glucose,Whole Blood 135 mg/dL (70-110)
[2024-11-27 20:13] LABS: Glucose,Whole Blood 223 mg/dL (70-110)
[2024-11-27] MEDS: FAMOTIDINE 20 MG TAB PO SCH (21:02)
--- NOTE | 2024-11-27 23:01 | PN ---
PROGRESS NOTE DATE OF SERVICE: 11/27/2024 SUBJECTIVE: This is a 54-year-old woman who was admitted with significant abdominal pain as well as abdominal wall abscess with drainage. Surgical evaluation is in progress. OBJECTIVE: VITAL SIGNS: Pulse is 93, blood pressure 112/73, respirations 16. CHEST: Clear to auscultation. CARDIOVASCULAR: S1, S2. ABDOMEN: Soft, drainage present. LABORATORY DATA: Reviewed. ASSESSMENT: 1. Intractable abdominal pain with possible abdominal wall abscess with persistent drainage with failure of outpatient treatment, on broad-spectrum IV antibiotics. 2. Hypertension. 3. Hyperlipidemia. 4. Methicillin-resistant Staphylococcus aureus from the wound previously. 5. Multiple medical issues. RECOMMENDATIONS: Recommend to continue current management and continue symptomatic treatment. Otherwise, continue with antibiotics. Surgical evaluation. Guarded prognosis. Further recommendations to follow. MMODL / IJN: [id number] /
[2024-11-28] MEDS ORDERED: ACETAMINOPHEN TAB 500 MG TAB PO PRN (05:00)
[2024-11-28] MEDS ORDERED: HEPARIN SODIUM,PORCINE 5,000 UNIT/ML 1 ML VIAL SQ PRN (05:00)
[2024-11-28 05:31] LABS: Glucose,Whole Blood 130 mg/dL (70-110)
[2024-11-28 08:09] LABS: African American GFR (CKD) >90 (>60 ml/min/1.73 sqM); Anion Gap 8 mmol/L; Blood Urea Nitrogen 19 mg/dL (7-17); Calcium 9.6 mg/dL (8.4-10.2); Carbon Dioxide 22 mmol/L (22-30); Chloride 108 mmol/L (98-107); Glucose 121 mg/dL (74-99); Non-African American GFR(CKD) 80 (>60 ml/min/1.73 sqM); Potassium 4.1 mmol/L (3.5-5.1); Sodium 138 mmol/L (137-145)
[2024-11-28 08:15] LABS: Basophils # (A) 0.1 k/uL (0-0.2); Basophils % (A) 1 %; Eosinophils # (A) 0.1 k/uL (0-0.7); Eosinophils % (A) 2 %; HCT 43.3 % (34.0-46.0); HGB 14.2 gm/dL (11.4-16.0); Lymphocytes # (A) 0.8 k/uL (1.0-4.8); Lymphocytes % (A) 13 %; MCH 30.2 pg (25.0-35.0); MCHC 32.9 g/dL (31.0-37.0); MCV 91.7 fL (80.0-100.0); Mean Platelet Volume 8.3; Monocytes # (A) 0.3 k/uL (0-1.0); Monocytes % (A) 5 %; Neutrophils # (A) 4.6 k/uL (1.3-7.7); Neutrophils % (A) 76 %; Platelet Count 156 k/uL (150-450); RBC 4.72 m/uL (3.80-5.40); RDW 13.9 % (11.5-15.5); WBC 6.1 k/uL (3.8-10.6)
[2024-11-28] MEDS: IV FLUID CONTINUATION 1,000 ML IV ONE (08:22)
[2024-11-28 08:36] LABS: Glucose,Whole Blood 124 mg/dL (70-110)
[2024-11-28] MEDS: VANCOMYCIN TROUGH DUE 1 EACH MISC MISCELLANE ONE (09:00)
[2024-11-28] MEDS ORDERED: fentaNYL (PF) 50 MCG/ML 2 ML AMP ONE (09:13)
[2024-11-28] MEDS ORDERED: MIDAZOLAM 2 MG/2 ML VIAL ONE (09:13)
[2024-11-28] MEDS ORDERED: PROPOFOL 10 MG/ML 20 ML VIAL IV ONE (09:13)
[2024-11-28] MEDS ORDERED: LIDOCAINE 1% INJ 10MG/ML (20 ML MDV) ONE (09:13)
[2024-11-28] MEDS ORDERED: PHENYLEPHRINE 10 MG/ML VIAL ONE (09:13)
[2024-11-28 10:26] LABS: Glucose,Whole Blood 125 mg/dL (70-110)
[2024-11-28] MEDS ORDERED: LIDOCAINE 1% (10MG/ML) FOR IV START INTRADERMA PRN (10:46)
[2024-11-28] MEDS ORDERED: MIDAZOLAM 2 MG/2 ML VIAL IV PRN (10:46)
[2024-11-28] MEDS ORDERED: fentaNYL (PF) 50 MCG/ML 2 ML AMP IVP PRN (10:46)
[2024-11-28] MEDS: HYDROmorphone 0.5 MG/0.5 ML SYRINGE IVP PRN (10:58)
[2024-11-28 12:23] LABS: Glucose,Whole Blood 117 mg/dL (70-110)
[2024-11-28] MEDS: Pre Op ABX Message 1 EACH MISC MISCELLANE ONE (12:30)
[2024-11-28] MEDS: ONDANSETRON 4 MG/2 ML VIAL IVP ONE (12:34)
[2024-11-28] MEDS: LACTATED RINGERS 1,000 ML IV SCH (12:34)
[2024-11-28] MEDS: DEXAMETHASONE SOD PHOSPHATE 4 MG/ML 1 ML VIAL IV ONE (12:34)
[2024-11-28 15:00] VITALS: BMI 27.4
[2024-11-28 17:19] LABS: Glucose,Whole Blood 141 mg/dL (70-110)
[2024-11-28 19:40] LABS: Glucose,Whole Blood 111 mg/dL (70-110)
--- NOTE | 2024-11-28 22:10 | PN ---
PROGRESS NOTE DATE OF SERVICE: 11/28/2024 SUBJECTIVE: This is a 54-year-old woman admitted with intractable abdominal pain and abdominal wall abscess and had surgery today. No chest pain. No palpitation. PHYSICAL EXAMINATION: VITAL SIGNS: Pulse is 70, blood pressure N, respirations 16. CHEST: Clear to auscultation. ABDOMEN: Soft. Status post surgery. LABORATORY DATA: Noted. ASSESSMENT: 1. Intractable abdominal pain with possible abdominal wall abscess with persistent drainage with failure of outpatient treatment, on broad-spectrum IV antibiotics, status post surgery. 2. Hypertension. 3. Hyperlipidemia. 4. History of methicillin-resistant Staphylococcus aureus from the wound previously. 5. Multiple medical issues. RECOMMENDATIONS: Recommend to continue current management and continue symptomatic treatment. I will closely follow with surgery. Pain medications. Antibiotics. Prognosis is guarded. Further recommendations to follow. MMGENESISL / KAPILN: [id number] / MTDD
[2024-11-29 05:04] LABS: African American GFR (CKD) >90 (>60 ml/min/1.73 sqM); Non-African American GFR(CKD) 87 (>60 ml/min/1.73 sqM)
[2024-11-29 06:01] LABS: Glucose,Whole Blood 145 mg/dL (70-110)
--- NOTE | 2024-11-29 07:39 | P.PN ---
Subjective Progress Note Date: 11/28/24 Principal diagnosis: Reason for follow-up is abdominal pain/abdominal wall fluid collection Patient is a 54-year-old female with a past medical history significant for COPD CVA TIA diabetes mellitus reflux hypertension hyperlipidemia patient apparently did have a chronic draining midline incision from her previous hernia repair and patient presented with worsening pain, with ultrasound suggestive of fluid collection question of seroma versus infected seroma probably this consultation. Patient is status post surgical I&D of the abdominal wound operative findings are currently pending, no culture has been sent. On today's evaluation that is 11/28/2024, the patient continues to be afebrile, the patient is on room air and breathing comfortably, the Pt denies having any chest pain or cough, the patient denies having any a nausea or vomiting, abdominal pain is currently controlled. Patient did have white count 6.1, creatinine 0.84 Objective - Vital Signs Vital signs: Vital Signs Temp 96.9 F L 11/28/24 10:06 Pulse 69 11/28/24 11:21 Resp 14 11/28/24 11:38 BP 122/79 11/28/24 11:21 Pulse Ox 95 11/28/24 11:21 FiO2 Intake & Output 11/27/24 11/28/24 11/28/24 18:59 06:59 18:59 Intake Total 236 400 Output Total 5 Balance 236 395 Intake: IV 400 Oral 236 Output: Estimated Blood Loss 5 Other: Voiding Method Toilet # Voids 4 3 2 - Exam GENERAL DESCRIPTION: Middle-age female lying in bed in no distress RESPIRATORY SYSTEM: Unlabored breathing , decreased breath sounds at bases HEART: S1 S2 regular rate and rhythm , ABDOMEN: Soft , no tenderness EXTREMITIES: No edema feet - Labs CBC & Chem 7: 11/28/24 07:23 11/29/24 04:20 Labs: Abnormal Lab Results - Last 24 Hours (Table) 11/27/24 11/27/24 11/28/24 Range/Units 17:23 20:11 05:30 Lymphocytes # (1.0-4.8) k/uL Chloride (98-107) mmol/L BUN (7-17) mg/dL Glucose (74-99) mg/dL POC Glucose (mg/dL) 135 H 223 H 130 H (70-110) mg/dL 11/28/24 11/28/24 11/28/24 Range/Units 07:23 07:23 08:34 Lymphocytes # 0.8 L (1.0-4.8) k/uL Chloride 108 H (98-107) mmol/L BUN 19 H (7-17) mg/dL Glucose 121 H (74-99) mg/dL POC Glucose (mg/dL) 124 H (70-110) mg/dL 11/28/24 11/28/24 Range/Units 10:24 12:22 Lymphocytes # (1.0-4.8) k/uL Chloride (98-107) mmol/L BUN (7-17) mg/dL Glucose (74-99) mg/dL POC Glucose (mg/dL) 125 H 117 H (70-110) mg/dL Assessment and Plan (1) Abdominal wall fluid collections Current Visit: Yes Status: Acute Code(s): R18.8 - OTHER ASCITES SNOMED Code(s): 810340913 (2) Intractable abdominal pain Current Visit: Yes Status: Acute Code(s): R10.9 - UNSPECIFIED ABDOMINAL PAIN SNOMED Code(s): 33263899 (3) Abnormal CT of the abdomen Current Visit: No Status: Acute Code(s): R93.5 - ABN FINDINGS ON DX IMAGING OF ABD REGIONS, INC RETROPERITON SNOMED Code(s): 73564939247113126 Plan: 1patient presented to hospital abdominal pain in this patient who did have history of chronic nonhealing wound to the mid abdominal area from previous hernia repair surgery and concern for possible underlying mesh now with abnormal fluid collection question of possible seroma infected seroma less likely as the patient not running a fever did not have an elevated white count patient has previously been infected both with Pseudomonas and MRSA 2-patient is status post surgical exploration operative report is currently pending however no culture has been sent more likely indicating of no evidence of any infection will recommend discontinuation of antibiotic Dictation was produced using [employer] dictation software. please excuse any grammatical, word or spelling errors. Time with Patient: Less than 30
[2024-11-29] MEDS ORDERED: VANCOMYCIN 1,500 MG in SODIUM CHLORIDE 0.9% 500 ML 500 ML IVPB SCH (09:00)
[2024-11-29] MEDS: HYDROmorphone 2 MG/ML 1 ML SYRINGE IVP PRN (10:06)
[2024-11-29 12:39] LABS: Glucose,Whole Blood 132 mg/dL (70-110)
--- NOTE | 2024-11-29 13:19 | P.PN ---
Subjective Progress Note Date: 11/29/24 Patient is postoperative day 1 from abdominal wall debridement. Patient is doing well. She has been complaints of pain. On exam vital signs appear stable. Abdomen soft. Patient will have her dressing changed today and the wound repacked. We dissipate discharge home on Sunday. Objective - Vital Signs Vital signs: Vital Signs Temp 98.7 F 11/29/24 07:44 Pulse 74 11/29/24 12:12 Resp 15 11/29/24 09:41 BP 110/74 11/29/24 07:44 Pulse Ox 93 L 11/29/24 07:44 FiO2 Intake & Output 11/28/24 11/29/24 11/29/24 18:59 06:59 18:59 Intake Total 842 500 Output Total 5 Balance 837 500 Weight 72.575 kg Intake: IV 400 Oral 442 500 Output: Estimated Blood Loss 5 Other: Voiding Method Toilet Toilet Toilet # Voids 3 2 # Bowel Movements 1 - Labs CBC & Chem 7: 11/28/24 07:23 11/29/24 04:20 Labs: Abnormal Lab Results - Last 24 Hours (Table) 11/28/24 11/28/24 11/29/24 Range/Units 17:18 19:38 05:57 POC Glucose (mg/dL) 141 H 111 H 145 H (70-110) mg/dL 11/29/24 Range/Units 12:38 POC Glucose (mg/dL) 132 H (70-110) mg/dL
--- NOTE | 2024-11-29 15:09 | P.PN ---
Subjective Progress Note Date: 11/29/24 Principal diagnosis: Reason for follow-up is abdominal pain/abdominal wall fluid collection Patient is a 54-year-old female with a past medical history significant for COPD CVA TIA diabetes mellitus reflux hypertension hyperlipidemia patient apparently did have a chronic draining midline incision from her previous hernia repair and patient presented with worsening pain, with ultrasound suggestive of fluid collection question of seroma versus infected seroma probably this consultation. Patient is status post surgical I&D of the abdominal wound operative findings are currently pending, no culture has been sent. On today's evaluation that is 11/29/2024, patient did not have any fever and denies any chills, patient is breathing comfortably on room air, patient with no chest pain, did have occasional cough patient complaining of more abdominal pain today no nausea vomiting or diarrhea. Patient did have creatinine 0.79 no CBC was done today initial abdominal culture negative no culture done in OR Objective - Vital Signs Vital signs: Vital Signs Temp 98.7 F 11/29/24 07:44 Pulse 74 11/29/24 12:12 Resp 15 11/29/24 09:41 BP 110/74 11/29/24 07:44 Pulse Ox 93 L 11/29/24 07:44 FiO2 Intake & Output 11/28/24 11/29/24 11/29/24 18:59 06:59 18:59 Intake Total 842 500 Output Total 5 Balance 837 500 Weight 72.575 kg Intake: IV 400 Oral 442 500 Output: Estimated Blood Loss 5 Other: Voiding Method Toilet Toilet Toilet # Voids 3 2 # Bowel Movements 1 - Exam GENERAL DESCRIPTION: Middle-age female lying in bed in no distress RESPIRATORY SYSTEM: Unlabored breathing , decreased breath sounds at bases HEART: S1 S2 regular rate and rhythm , ABDOMEN: Soft , no tenderness EXTREMITIES: No edema feet - Labs CBC & Chem 7: 11/28/24 07:23 11/29/24 04:20 Labs: Abnormal Lab Results - Last 24 Hours (Table) 11/28/24 11/28/24 11/29/24 Range/Units 17:18 19:38 05:57 POC Glucose (mg/dL) 141 H 111 H 145 H (70-110) mg/dL 11/29/24 Range/Units 12:38 POC Glucose (mg/dL) 132 H (70-110) mg/dL Assessment and Plan (1) Abdominal wall fluid collections Current Visit: Yes Status: Acute Code(s): R18.8 - OTHER ASCITES SNOMED Code(s): 276072852 (2) Intractable abdominal pain Current Visit: Yes Status: Acute Code(s): R10.9 - UNSPECIFIED ABDOMINAL PAIN SNOMED Code(s): 60888487 (3) Abnormal CT of the abdomen Current Visit: No Status: Acute Code(s): R93.5 - ABN FINDINGS ON DX IMAGING OF ABD REGIONS, INC RETROPERITON SNOMED Code(s): 31851079731449666 Plan: 1patient presented to hospital abdominal pain in this patient who did have history of chronic nonhealing wound to the mid abdominal area from previous hernia repair surgery and concern for possible underlying mesh now with abnormal fluid collection question of possible seroma infected seroma less likely as the patient not running a fever did not have an elevated white count patient has previously been infected both with Pseudomonas and MRSA 2-patient is status post surgical exploration operative report is currently pending however no culture has been sent more likely indicating of no evidence of any infection will go ahead and discontinue antibiotics and monitor the patient closely off antibiotic therapy Dictation was produced using [employer] dictation software. please excuse any grammatical, word or spelling errors. Time with Patient: Less than 30
[2024-11-29 17:30] LABS: Glucose,Whole Blood 209 mg/dL (70-110)
[2024-11-29 19:28] LABS: Glucose,Whole Blood 143 mg/dL (70-110)
--- NOTE | 2024-11-29 21:02 | PN ---
PROGRESS NOTE DATE OF SERVICE: 11/29/2024 SUBJECTIVE: This is a 54-year-old woman, who was admitted with intractable abdominal pain. Abdominal wall wound underwent debridement by Surgery. No chest pain, no palpitation. PHYSICAL EXAM: VITAL SIGNS: Pulse is 90, blood pressure 190/76, respirations 15. CHEST: Clear. CARDIOVASCULAR: S1, S2 muffled. ABDOMEN: Soft, status post surgery. LABORATORY DATA: Noted. ASSESSMENT: 1. Intractable abdominal pain with possible abdominal WALL abscess with persistent drainage, on broad-spectrum IV antibiotics, status post debridement. 2. Hypertension. 3. Hyperlipidemia. 4. Previous history of MRSA. RECOMMENDATIONS: Recommend to continue current medication and continue symptomatic treatment. I will closely follow with surgery, antibiotics. Guarded prognosis. Further recommendations to follow. MMODL / IJN: [id number] / MTDD
[2024-11-30 05:32] LABS: Glucose,Whole Blood 137 mg/dL (70-110)
[2024-11-30 08:07] LABS: African American GFR (CKD) 83 (>60 ml/min/1.73 sqM); Anion Gap 10 mmol/L; Blood Urea Nitrogen 22 mg/dL (7-17); Calcium 9.9 mg/dL (8.4-10.2); Carbon Dioxide 24 mmol/L (22-30); Chloride 102 mmol/L (98-107); Glucose 129 mg/dL (74-99); Non-African American GFR(CKD) 72 (>60 ml/min/1.73 sqM); Potassium 3.9 mmol/L (3.5-5.1); Sodium 136 mmol/L (137-145)
[2024-11-30 08:25] LABS: Basophils # (A) 0.1 k/uL (0-0.2); Basophils % (A) 1 %; Eosinophils # (A) 0.2 k/uL (0-0.7); Eosinophils % (A) 1 %; HCT 42.8 % (34.0-46.0); HGB 14.2 gm/dL (11.4-16.0); Lymphocytes # (A) 1.5 k/uL (1.0-4.8); Lymphocytes % (A) 15 %; MCH 29.9 pg (25.0-35.0); MCHC 33.3 g/dL (31.0-37.0); MCV 89.8 fL (80.0-100.0); Mean Platelet Volume 8.9; Monocytes # (A) 0.6 k/uL (0-1.0); Monocytes % (A) 6 %; Neutrophils # (A) 7.6 k/uL (1.3-7.7); Neutrophils % (A) 75 %; Platelet Count 184 k/uL (150-450); RBC 4.77 m/uL (3.80-5.40); WBC 10.2 k/uL (3.8-10.6)
[2024-11-30 12:08] LABS: Glucose,Whole Blood 200 mg/dL (70-110)
--- NOTE | 2024-11-30 12:33 | P.PN ---
Subjective Progress Note Date: 11/30/24 Patient jean stable. She has some complaints of pain. On exam vital signs appear stable. Abdomen soft. Wound is clean. Status post debridement of abdominal wall wound. Patient is stable for discharge per medical service. Objective - Vital Signs Vital signs: Vital Signs Temp 98.9 F 11/30/24 07:42 Pulse 77 11/30/24 12:26 Resp 15 11/30/24 08:48 BP 97/62 11/30/24 07:42 Pulse Ox 93 L 11/30/24 07:42 FiO2 Intake & Output 11/29/24 11/30/24 11/30/24 18:59 06:59 18:59 Intake Total 500 222 Balance 500 222 Intake: Oral 500 222 Other: Voiding Method Toilet Toilet # Voids 5 3 - Labs CBC & Chem 7: 11/30/24 06:38 11/30/24 06:38 Labs: Abnormal Lab Results - Last 24 Hours (Table) 11/29/24 11/29/24 11/29/24 Range/Units 12:38 17:29 19:27 Sodium (137-145) mmol/L BUN (7-17) mg/dL Glucose (74-99) mg/dL POC Glucose (mg/dL) 132 H 209 H 143 H (70-110) mg/dL 11/30/24 11/30/24 11/30/24 Range/Units 05:27 06:38 12:07 Sodium 136 L (137-145) mmol/L BUN 22 H (7-17) mg/dL Glucose 129 H (74-99) mg/dL POC Glucose (mg/dL) 137 H 200 H (70-110) mg/dL
--- NOTE | 2024-11-30 14:29 | P.PN ---
Subjective Progress Note Date: 11/30/24 Principal diagnosis: Reason for follow-up is abdominal pain/abdominal wall fluid collection Patient is a 54-year-old female with a past medical history significant for COPD CVA TIA diabetes mellitus reflux hypertension hyperlipidemia patient apparently did have a chronic draining midline incision from her previous hernia repair and patient presented with worsening pain, with ultrasound suggestive of fluid collection question of seroma versus infected seroma probably this consultation. Patient is status post surgical I&D of the abdominal wound operative findings are currently pending, no culture has been sent. On today's evaluation that is 11/30/2024, Patient is afebrile patient is currently on room air and denies having any shortness of breath, the patient d enies any chest pain or cough, the patient denies any nausea vomiting still complaining of some abdominal pain but no worsening mass without mention nor drainage while changing her dressing. The patient white count is 10.2, creatinine 0.92 abdominal culture has been negative Objective - Vital Signs Vital signs: Vital Signs Temp 98.9 F 11/30/24 07:42 Pulse 75 11/30/24 12:36 Resp 15 11/30/24 08:48 BP 97/62 11/30/24 07:42 Pulse Ox 93 L 11/30/24 07:42 FiO2 Intake & Output 11/29/24 11/30/24 11/30/24 18:59 06:59 18:59 Intake Total 500 222 Balance 500 222 Intake: Oral 500 222 Other: Voiding Method Toilet Toilet # Voids 5 3 - Exam GENERAL DESCRIPTION: Middle-age female lying in bed in no distress RESPIRATORY SYSTEM: Unlabored breathing , decreased breath sounds at bases HEART: S1 S2 regular rate and rhythm , ABDOMEN: Soft , no tenderness EXTREMITIES: No edema feet - Labs CBC & Chem 7: 11/30/24 06:38 11/30/24 06:38 Labs: Abnormal Lab Results - Last 24 Hours (Table) 11/29/24 11/29/24 11/30/24 Range/Units 17:29 19:27 05:27 Sodium (137-145) mmol/L BUN (7-17) mg/dL Glucose (74-99) mg/dL POC Glucose (mg/dL) 209 H 143 H 137 H (70-110) mg/dL 11/30/24 11/30/24 Range/Units 06:38 12:07 Sodium 136 L (137-145) mmol/L BUN 22 H (7-17) mg/dL Glucose 129 H (74-99) mg/dL POC Glucose (mg/dL) 200 H (70-110) mg/dL Assessment and Plan (1) Abdominal wall fluid collections Current Visit: Yes Status: Acute Code(s): R18.8 - OTHER ASCITES SNOMED Code(s): 843644646 (2) Intractable abdominal pain Current Visit: Yes Status: Acute Code(s): R10.9 - UNSPECIFIED ABDOMINAL PAIN SNOMED Code(s): 42934329 (3) Abnormal CT of the abdomen Current Visit: No Status: Acute Code(s): R93.5 - ABN FINDINGS ON DX IMAGING OF ABD REGIONS, INC RETROPERITON SNOMED Code(s): 48717050085751563 Plan: 1patient presented to hospital abdominal pain in this patient who did have history of chronic nonhealing wound to the mid abdominal area from previous hernia repair surgery and concern for possible underlying mesh now with abnormal fluid collection question of possible seroma infected seroma less likely as the patient not running a fever did not have an elevated white count patient has previously been infected both with Pseudomonas and MRSA 2-patient is status post surgical exploration operative report is currently pending however no culture has been sent more likely indicating of no evidence of any infection, patient is currently doing well off antibiotic therapy to continue local wound care per surgery Dictation was produced using [employer] dictation software. please excuse any grammatical, word or spelling errors. Time with Patient: Less than 30
[2024-11-30 17:22] LABS: Glucose,Whole Blood 173 mg/dL (70-110)
[2024-11-30 19:42] LABS: Glucose,Whole Blood 232 mg/dL (70-110)
[2024-12-01 01:23] VITALS: RESP 16
--- NOTE | 2024-12-01 02:03 | PN ---
PROGRESS NOTE DATE OF SERVICE: 11/30/2024 SUBJECTIVE: This is a 54-year-old woman, who was admitted with intractable abdominal pain with abdominal wall abscess, had surgery. No chest pain. No palpitation. OBJECTIVE: VITAL SIGNS: Pulse is 67, blood pressure 95/63, respirations 16. CHEST: Clear to auscultation. CARDIOVASCULAR: S1, S2. ABDOMEN: Soft, status post surgery. LABORATORY DATA: Noted. ASSESSMENT: 1. Intractable abdominal pain with possible abdominal wall abscess with persistent drainage, on broad-spectrum IV antibiotics, status post debridement. 2. Hypertension. 3. Hyperlipidemia. 4. History of previous Methicillin-resistant Staphylococcus aureus. RECOMMENDATIONS AND DISCUSSION: Recommend to continue current management and continue symptomatic treatment. Otherwise, I would continue the antibiotics. We will reduce the dose of lisinopril and continue to monitor. Guarded prognosis. Further recommendations to follow. JACOB / ROSALES: [id number] /
[2024-12-01 05:36] LABS: Glucose,Whole Blood 217 mg/dL (70-110)
[2024-12-01 07:33] VITALS: BP 102/69; TEMP 97.9
[2024-12-01] MEDS: lisinopriL 10 MG TAB PO SCH (08:34)
[2024-12-01 09:39] VITALS: PULSE 72
[2024-12-01 12:26] LABS: Glucose,Whole Blood 221 mg/dL (70-110)
--- NOTE | 2024-12-01 12:45 | P.PN ---
Subjective Progress Note Date: 12/01/24 Principal diagnosis: Reason for follow-up is abdominal pain/abdominal wall fluid collection Patient is a 54-year-old female with a past medical history significant for COPD CVA TIA diabetes mellitus reflux hypertension hyperlipidemia patient apparently did have a chronic draining midline incision from her previous hernia repair and patient presented with worsening pain, with ultrasound suggestive of fluid collection question of seroma versus infected seroma probably this consultation. Patient is status post surgical I&D of the abdominal wound operative findings are currently pending, no culture has been sent. On today's evaluation that is 12/01/2024, patient has been afebrile, patient is breathing comfortably and is currently on room air, patient denies having any chest pain and cough, patient denies nausea vomiting or diarrhea circumventing some abdominal pain both decrease in intensity. No new lab has been obtained today cultures has been negative Objective - Vital Signs Vital signs: Vital Signs Temp 97.9 F 12/01/24 07:33 Pulse 72 12/01/24 09:48 Resp 16 12/01/24 07:33 BP 102/69 12/01/24 07:33 Pulse Ox 95 12/01/24 07:33 FiO2 Intake & Output 11/30/24 12/01/24 12/01/24 18:59 06:59 18:59 Intake Total 120 222 Balance 120 222 Intake: Oral 120 222 Other: Voiding Method Toilet # Voids 2 - Exam GENERAL DESCRIPTION: Middle-age female lying in bed in no distress RESPIRATORY SYSTEM: Unlabored breathing , decreased breath sounds at bases HEART: S1 S2 regular rate and rhythm , ABDOMEN: Soft , no tenderness EXTREMITIES: No edema feet - Labs CBC & Chem 7: 11/30/24 06:38 11/30/24 06:38 Labs: Abnormal Lab Results - Last 24 Hours (Table) 11/30/24 11/30/24 12/01/24 Range/Units 17:21 19:41 05:34 POC Glucose (mg/dL) 173 H 232 H 217 H (70-110) mg/dL 12/01/24 Range/Units 12:25 POC Glucose (mg/dL) 221 H (70-110) mg/dL Assessment and Plan (1) Abdominal wall fluid collections Current Visit: Yes Status: Acute Code(s): R18.8 - OTHER ASCITES SNOMED Code(s): 976377275 (2) Intractable abdominal pain Current Visit: Yes Status: Acute Code(s): R10.9 - UNSPECIFIED ABDOMINAL PAIN SNOMED Code(s): 48999103 (3) Abnormal CT of the abdomen Current Visit: No Status: Acute Code(s): R93.5 - ABN FINDINGS ON DX IMAGING OF ABD REGIONS, INC RETROPERITON SNOMED Code(s): 14418649016595688 Plan: 1patient presented to hospital abdominal pain in this patient who did have history of chronic nonhealing wound to the mid abdominal area from previous hernia repair surgery and concern for possible underlying mesh now with abnormal fluid collection question of possible seroma infected seroma less likely as the patient not running a fever did not have an elevated white count patient has previously been infected both with Pseudomonas and MRSA 2-patient is status post surgical exploration, no culture has been sent more likely indicating of no evidence of any infection, 3patient is currently doing well off antibiotic therapy, no need for antibiotics on discharge Dictation was produced using [employer] dictation software. please excuse any grammatical, word or spelling errors.
--- NOTE | 2024-12-01 13:36 | P.PN ---
Subjective Progress Note Date: 12/01/24 SURGICAL PROGRESS NOTE CHIEF COMPLAINT: Abdominal pain and drainage from old incision HISTORY OF PRESENT ILLNESS: Patient postop day #3 status post debridement of abdominal wall wound. Her pain is improving. She is tolerating diet. Afebrile. She has her packing in place. Afebrile. Patient is currently off antibiotics per ID service PHYSICAL EXAM: VITAL SIGNS: Reviewed. GENERAL: Well-developed in no acute distress. ABDOMEN: Soft. Nondistended. Abdominal wound with packing in place. Edges of the wound are clean dry. No erythema NEUROLOGIC: Alert and oriented. Cranial nerves II through XII grossly intact. ASSESSMENT: 1. Abdominal wall wound status post debridement PLAN: -Patient can be discharged from surgical standpoint -No antibiotics per ID service -Recommend home with home care for wound care -Continue local wound care with wet-to-dry dressing changes daily Physician Bed Laster note has been reviewed by physician. Signing provider agrees with the documented findings, assessment, and plan of care. Objective - Vital Signs Vital signs: Vital Signs Temp 97.9 F 12/01/24 07:33 Pulse 72 12/01/24 09:48 Resp 16 12/01/24 07:33 BP 102/69 12/01/24 07:33 Pulse Ox 95 12/01/24 07:33 FiO2 Intake & Output 11/30/24 12/01/24 12/01/24 18:59 06:59 18:59 Intake Total 120 222 Balance 120 222 Intake: Oral 120 222 Other: Voiding Method Toilet # Voids 2 - Labs CBC & Chem 7: 11/30/24 06:38 11/30/24 06:38 Labs: Abnormal Lab Results - Last 24 Hours (Table) 11/30/24 11/30/24 12/01/24 Range/Units 17:21 19:41 05:34 POC Glucose (mg/dL) 173 H 232 H 217 H (70-110) mg/dL 12/01/24 Range/Units 12:25 POC Glucose (mg/dL) 221 H (70-110) mg/dL
--- NOTE | 2024-12-02 11:42 | P.DS ---
Providers Date of admission: 11/22/24 16:28 Expected date of discharge: 12/01/24 Attending physician: Tien Dang MD Consults: 11/22/24 16:22 Consult Physician Urgent Consulting Provider: Haroon Cary Consult Reason/Comments: Abdominal wall seroma versus abscess, history of laparotomy Do you want consulting provider notified?: Yes Consult Physician Urgent Consulting Provider: Burton Self Consult Reason/Comments: Abdominal wall seroma versus abscess Do you want consulting provider notified?: Yes Primary care physician: Physician Nonstaff Hospital Course: Final diagnosis Intractable abdominal pain with abdominal wall abscess and drainage on broad- spectrum IV antibiotics, status post debridement and washout, cultures are negative Hypertension Hyperlipidemia History of previous MRSA COPD history, not in exacerbation History of CVA/TIA with expressive aphasia in 2019 Diabetes mellitus, type II uncontrolled with hyperglycemia History of DVT GERD Hyperlipidemia Hypertension History of recent ileostomy reversal with hernia repair and ovary removal in April 2024 History of depression/PTSD Continued ongoing nicotine dependence GI prophylaxis DVT prophylaxis Full code Discharge disposition Patient is being discharged in a stable condition with guarded prognosis to home with home care. Patient will follow-up with Oneyda Garay in the outpatient setting upon discharge. Patient is to continue with current medication and wound care per general surgery and close outpatient follow-up with Dr. Cary in 1 week as scheduled. Total time taken is greater than 35 minutes. Hospital course This is a 54-year-old female who was recently admitted with abdominal pain was scheduled to undergo abdominal washout with general surgery on 11/28/2024. Patient was seen and evaluated continued to have drainage of the abdominal wall previous surgical site and cultures were negative maintained on IV antibiotics with infectious disease following. Patient is status post washout with Dr. cary doing relatively well and has been cleared by surgery. Patient will continue local wound care and is monitored off antibiotic therapy and does not recommend antibiotics on discharge. Patient will follow-up closely with general surgery in 1 week and is being discharged today. Patient will continue with home care in the outpatient setting. Patient does continue to have some abdominal discomfort although improved from postsurgical. Patient tolerating diet with no reported nausea or vomiting. Please refer to other consultation notes for further HPI. Patient has been instructed to follow-up with primary care provider as well. Guarded prognosis and high risk for readmissions. Physical exam: Gen: This is a 54-year-old female who is awake, alert and oriented x 2, baseline, well-developed, appears older than stated age HEENT: Head is atraumatic, normocephalic. Pupils equal, round. Sclerae is anicteric. NECK: Supple. No JVD. No lymphadenopathy. No thyromegaly. LUNGS: Diminished breath sounds bilaterally otherwise clear to auscultation. No wheezes, a few coarse rhonchi noted. No intercostal retractions. HEART: S1, S2 are muffled ABDOMEN: Soft. Bowel sounds are present. No masses. No tenderness. Abdominal incision wound with no surrounding redness noted, currently being packed with iodoform EXTREMITIES: No pedal edema. No calf tenderness. NEUROLOGICAL: Patient is awake, alert and oriented x3. Cranial nerves 2 through 12 are grossly intact. Please refer to medication reconciliation sheet for a list of medications. The impression and plan of care has been dictated by Jennifer Thakkar, Nurse Practitioner as directed. Dr. Christophe MD I have performed a history and examination and MDM of this patient, discussed the same with the dictator, and agree with the dictator's assessment and plan as written ,documented as a scribe. Based on total visit time, I have performed more than 50% of the visit. Patient Condition at Discharge: Fair Plan - Discharge Summary Discharge Rx Participant: No New Discharge Prescriptions: New Nicotine 21Mg/24Hr Patch [Habitrol] 1 patch TRANSDERM DAILY #30 patch Acetaminophen Tab [Tylenol] 650 mg PO Q6HR PRN tab PRN Reason: Mild Pain Or Fever > 100.5 lisinopriL [Zestril] 10 mg PO DAILY #30 tab Continue traZODone HCL 150 mg PO HS busPIRone HCL 15 mg PO TID Gabapentin 800 mg PO TID 3 Days #9 tab Apixaban [Eliquis] 5 mg PO BID Famotidine 40 mg PO DAILY Ezetimibe [Zetia] 10 mg PO DAILY Ipratropium-Albuterol Nebulize [Duoneb 0.5 mg-3 mg/3 ml Soln] 3 ml INHALATION RT-QID HYDROcodone/APAP 10-325MG [[place] 10-325] 1 tab PO TID Potassium Chloride ER [K-Dur 20] 20 meq PO DAILY hydroCHLOROthiazide [Hydrodiuril] 12.5 mg PO DAILY Insulin Glargine,Hum.rec.anlog [Lantus Solostar Pen] 50 unit SQ DAILY Atorvastatin [Lipitor] 80 mg PO DAILY cloNIDine HCL 0.05 mg PO BID Venlafaxine HCl [Effexor XR] 150 mg PO DAILY Dapagliflozin Propanediol [Farxiga] 10 mg PO DAILY Discontinued lisinopriL 30 mg PO DAILY Discharge Medication List Insulin Glargine,Hum.rec.anlog [Lantus Solostar Pen] 50 unit SQ DAILY 08/04/21 [History] hydroCHLOROthiazide [Hydrodiuril] 12.5 mg PO DAILY 08/04/21 [History] busPIRone HCL 15 mg PO TID 03/14/23 [History] traZODone HCL 150 mg PO HS 03/14/23 [History] Gabapentin 800 mg PO TID 3 Days #9 tab 07/12/23 [Rx] Atorvastatin [Lipitor] 80 mg PO DAILY 08/07/23 [History] Apixaban [Eliquis] 5 mg PO BID 05/03/24 [History] Ezetimibe [Zetia] 10 mg PO DAILY 05/03/24 [History] Famotidine 40 mg PO DAILY 05/03/24 [History] Venlafaxine HCl [Effexor XR] 150 mg PO DAILY 05/03/24 [History] cloNIDine HCL 0.05 mg PO BID 05/03/24 [History] Ipratropium-Albuterol Nebulize [Duoneb 0.5 mg-3 mg/3 ml Soln] 3 ml INHALATION RT-QID 06/15/24 [History] Dapagliflozin Propanediol [Farxiga] 10 mg PO DAILY 11/22/24 [History] HYDROcodone/APAP 10-325MG [[place] 10-325] 1 tab PO TID 11/22/24 [History] Potassium Chloride ER [K-Dur 20] 20 meq PO DAILY 11/22/24 [History] Acetaminophen Tab [Tylenol] 650 mg PO Q6HR PRN tab 12/01/24 [Rx] Nicotine 21Mg/24Hr Patch [Habitrol] 1 patch TRANSDERM DAILY #30 patch 12/01/24 [Rx] lisinopriL [Zestril] 10 mg PO DAILY #30 tab 12/01/24 [Rx] Follow up Appointment(s)/Referral(s): Nonstaff,Physician [Primary Care Provider] - 1-2 days [facility] [NON-STAFF] - As Needed Burton Self MD [STAFF PHYSICIAN] - 12/08/24 4:00 pm Haroon Cary MD [STAFF PHYSICIAN] - 12/11/24 2:00 pm Activity/Diet/Wound Care/Special Instructions: Activity limited until follow-up Follow-up with primary care provider on discharge Follow-up with general surgery in 1 week Continue with wound care with home care in the home Avoid touching the surgical site with bare hands and frequently wash hands with soap and water Continue current diet Discharge Disposition: HOME WITH HOME HEALTH SERVICES
--- NOTE | 2025-01-29 14:20 | P.OP ---
Date of Procedure: 11/28/24 Preoperative Diagnosis: Chronic skin lesion abdominal wall Postoperative Diagnosis: defer to pathology Procedure(s) Performed: excision of chronic inflamed skin lesion abdominal wall Anesthesia: VANE Surgeon: Haroon Lewis Estimated Blood Loss (ml): 5 Pathology: other (skin lesion) Condition: stable Disposition: PACU Description of Procedure: the patient was placed on the Operatingtable in the lateral position. She received general anesthesia. her abdomen was prepped and draped in usual sterile fashion. The skin lesion was incised. It measured 3 byx 1.5 cm. Using electrocautery the subcu tissue divided. The specimen to pathology. The wound was packed with wet-to-dry Kerlix. Patient Toller procedure well. She was sent to recovery room in stable condition.
== END 2024-12-01 15:05 | disposition home health service (06) | DRG 857 ==
LOC: EC 12:36 → 6NMEDSUR 16:27 → OBSVTOIN 16:28 → 6NMEDSUR 17:27
PROVIDERS: ADMIT Internal Medicine; ATTEND Internal Medicine
PROC: 05HC33Z Insertion of Infusion Device into Left Basilic Vein, Percutaneous Approach (ICD-10-PCS; 2024-11-26)
PROC: 0JB80ZZ Excision of Abdomen Subcutaneous Tissue and Fascia, Open Approach (ICD-10-PCS; principal; 2024-11-28 08:45)
DX: T81.43XA Infection following a procedure, organ and space surgical site, initial encounter (principal); L02.211 Cutaneous abscess of abdominal wall; R18.8 Other ascites; I69.320 Aphasia following cerebral infarction; E11.42 Type 2 diabetes mellitus with diabetic polyneuropathy; J44.9 Chronic obstructive pulmonary disease, unspecified; I10 Essential (primary) hypertension; F32.A Depression, unspecified; K76.0 Fatty (change of) liver, not elsewhere classified; Z79.4 Long term (current) use of insulin; E78.5 Hyperlipidemia, unspecified; F17.210 Nicotine dependence, cigarettes, uncomplicated; F43.10 Post-traumatic stress disorder, unspecified; K21.9 Gastro-esophageal reflux disease without esophagitis; Z79.01 Long term (current) use of anticoagulants; Z79.84 Long term (current) use of oral hypoglycemic drugs; Z79.899 Other long term (current) drug therapy; Z86.14 Personal history of Methicillin resistant Staphylococcus aureus infection; Z86.718 Personal history of other venous thrombosis and embolism; Z88.1 Allergy status to other antibiotic agents; Y84.8 Other medical procedures as the cause of abnormal reaction of the patient, or of later complication, without mention of misadventure at the time of the procedure
CPT/HCPCS: 36415; 71045; 74176; 76705; 80048; 80053; 80202; 81003; 81025; 82150; 82565; 83036; 83605; 83690; 83735; 84484; 85025; 87070; 87205; 88304; 93005; 94640; 96361; 96365; 96366; 96368; 96375; 96376; 99285

== ENCOUNTER 2024-12-04 11:27 | Emergency (ER) | payer MEDICARE, OTHER ==
--- NOTE | 2024-12-04 11:59 | ED ---
Abdominal Pain HPI - General Chief Complaint: Abdominal Pain Stated Complaint: post-op abd pain Time Seen by Provider: 12/04/24 11:42 Source: patient, RN notes reviewed Mode of arrival: ambulatory Limitations: no limitations - History of Present Illness Initial Comments: This is a 54-year-old female presenting with abdominal pain (06/05) x 7 days. Patient endorses receiving abdominal surgery from Dr. Xavier on 11/28/2024 for abdominal wall debridement with ongoing pain since that time. States she is not seeing anyone for wound care management and has been performing wound packing herself. Patient states Dr. Saldana is on medications unable to reach out home for pain management/further guidance for wound care. Onset/Timin -: days(s) Location: [facility] Severity scale (1-10): 10 - Related Data Home Medications Medication Instructions Recorded Confirmed Insulin Glargine,Hum.rec.anlog 50 unit SQ DAILY 08/04/21 11/22/24 [Lantus Solostar Pen] hydroCHLOROthiazide [Hydrodiuril] 12.5 mg PO DAILY 08/04/21 11/22/24 busPIRone HCL 15 mg PO TID 03/14/23 11/22/24 traZODone HCL 150 mg PO HS 03/14/23 11/22/24 Atorvastatin [Lipitor] 80 mg PO DAILY 08/07/23 11/22/24 Apixaban [Eliquis] 5 mg PO BID 05/03/24 11/22/24 Ezetimibe [Zetia] 10 mg PO DAILY 05/03/24 11/22/24 Famotidine 40 mg PO DAILY 05/03/24 11/22/24 Venlafaxine HCl [Effexor XR] 150 mg PO DAILY 05/03/24 11/22/24 cloNIDine HCL 0.05 mg PO BID 05/03/24 11/22/24 Ipratropium-Albuterol Nebulize 3 ml INHALATION RT-QID 06/15/24 11/22/24 [Duoneb 0.5 mg-3 mg/3 ml Soln] Dapagliflozin Propanediol [Farxiga] 10 mg PO DAILY 11/22/24 11/22/24 HYDROcodone/APAP 10-325MG [[place] 1 tab PO TID 11/22/24 11/22/24 10-325] Potassium Chloride ER [K-Dur 20] 20 meq PO DAILY 11/22/24 11/22/24 Previous Rx's Medication Instructions Recorded Gabapentin 800 mg PO TID 3 Days #9 tab 07/12/23 Acetaminophen Tab [Tylenol] 650 mg PO Q6HR PRN tab 12/01/24 Nicotine 21Mg/24Hr Patch [Habitrol] 1 patch TRANSDERM DAILY #30 patch 12/01/24 lisinopriL [Zestril] 10 mg PO DAILY #30 tab 12/01/24 Allergies Allergy/AdvReac Type Severity Reaction Status Date / Time ceftriaxone [From Rocephin] Allergy Rash/Hives Verified 12/04/24 11:40 Review of Systems ROS Statement: Those systems with pertinent positive or pertinent negative responses have been documented in the HPI. ROS Other: All systems not noted in ROS Statement are negative. Past Medical History Past Medical History: COPD, CVA/TIA, Diabetes Mellitus, Deep Vein Thrombosis (DVT), GERD/Reflux, Hyperlipidemia, Hypertension Additional Past Medical History / Comment(s): CVA 2020- expressive aphasia; 2 DVT's; diverticulitis; hernia History of Any Multi-Drug Resistant Organisms: MRSA Date of last positivie culture/infection: 09/03/23 MDRO Source:: Groin Past Surgical History: Bowel Resection Additional Past Surgical History / Comment(s): IVC FILTER 2013. ileostomy. wound vac. ileostomy reversal with hernia repair, with ovary removal-Apr 2024. Past Anesthesia/Blood Transfusion Reactions: No Reported Reaction Past Psychological History: Depression, PTSD Smoking Status: Current every day smoker Past Alcohol Use History: None Reported Past Drug Use History: None Reported General Exam Limitations: no limitations General appearance: alert, in no apparent distress Head exam: Present: atraumatic, normocephalic, normal inspection Eye exam: Present: normal appearance, PERRL, EOMI. Absent: scleral icterus, conjunctival injection, periorbital swelling ENT exam: Present: normal exam, mucous membranes moist Neck exam: Present: normal inspection. Absent: tenderness, meningismus, lymphadenopathy Respiratory exam: Present: normal lung sounds bilaterally. Absent: respiratory distress, wheezes, rales, rhonchi, stridor Cardiovascular Exam: Present: regular rate, normal rhythm, normal heart sounds. Absent: systolic murmur, diastolic murmur, rubs, gallop, clicks GI/Abdominal exam: Present: soft, normal bowel sounds, other (2.5 cm deep by 2 cm wide debrided soft tissue of mid abdomen within LUQ with mild surrounding erythema. Debridement does not enter into the peritoneal space. No obvious bleeding, discharge, foreign body). Absent: distended, tenderness, guarding, rebound, rigid, mass, hernia Extremities exam: Present: normal inspection, full ROM, normal capillary refill. Absent: tenderness, pedal edema, joint swelling, calf tenderness Back exam: Present: normal inspection Neurological exam: Present: alert, oriented X3, CN II-XII intact Psychiatric exam: Present: normal affect, normal mood Skin exam: Present: warm, dry, intact, normal color. Absent: rash Course Vital Signs 12/04/24 12/04/24 12/04/24 11:37 15:36 17:08 Temperature 97.7 F 98.5 F Pulse Rate 95 92 78 Respiratory 20 16 18 Rate Blood Pressure 121/87 151/99 139/107 O2 Sat by Pulse 97 97 99 Oximetry Medical Decision Making - Medical Decision Making Was pt. sent in by a medical professional or institution (, PA, TRANSFORMATION ANALYST, urgent care, hospital, or halfway...) When possible be specific @ -No Did you speak to anyone other than the patient for history (EMS, parent, family, police, friend...)? What history was obtained from this source @ -No Did you review nursing and triage notes (agree or disagree)? Why? @ -I reviewed and agree with nursing and triage notes Were old charts reviewed (outside hosp., previous admission, EMS record, old EKG, old radiological studies, urgent care reports/EKG's, halfway records)? Report findings @ -No old charts were reviewed Differential Diagnosis (chest pain, altered mental status, abdominal pain women, abdominal pain men, vaginal bleeding, weakness, fever, dyspnea, syncope, headache, dizziness, GI bleed, back pain, seizure, CVA, palpatations, mental health, musculoskeletal)? @ -Differential Abdominal Pain Women: Appendicitis, Cholecystitis, diverticulosis, ischemic bowel, pancreatitis, hepatitis, UTI, gastroenteritis, AAA, incarcerated hernia, bowel obstruction, constipation, inflammatory bowel, hepatitis, peptic ulcer disease, splenic infarction, perforated viscus, vulvitis, ovarian torsion, PID, kidney stone, placenta abruption, this is not meant to be an all-inclusive list EKG interpreted by me (3pts min.). @ -Not done X-rays interpreted by me (1pt min.). @ -None done CT interpreted by me (1pt min.). @ -None done U/S interpreted by me (1pt. min.). @ -None done What testing was considered but not performed or refused? (CT, X-rays, U/S, labs)? Why? @ -None What meds were considered but not given or refused? Why? @ -None Did you discuss the management of the patient with other professionals (professionals i.e. Dr., PA, TRANSFORMATION ANALYST, lab, RT, psych nurse, social work associate, regulatory affairs portfolio leader, teacher, data officer, case worker)? Give summary @ -Spoke to Dr. Rodriguez who advised continue wound care at home with supplies previously provided. Was smoking cessation discussed for >3mins.? @ -No Was critical care preformed (if so, how long)? @ -No Were there social determinants of health that impacted care today? How? (Homelessness, low income, unemployed, alcoholism, drug addiction, transportation, low edu. Level, literacy, decrease access to med. care, detention, rehab)? @ -No Was there de-escalation of care discussed even if they declined (Discuss DNR or withdrawal of care, Hospice)? DNR status @ -No What co-morbidities impacted this encounter? (DM, HTN, Smoking, COPD, CAD, Can cer, CVA, ARF, Chemo, Hep., AIDS, mental health diagnosis, sleep apnea, morbid obesity)? @ -None Was patient admitted / discharged? Hospital course, mention meds given and route, prescriptions, significant lab abnormalities, going to OR and other pertinent info. @ -Lab work shows mild leukocytosis 11.13 BUN 23 which is WNL for patient, hyperglycemia 138 and alk phos 165. Aerobic wound culture obtained following irrigation of surgical site. Patient initially provided IV normal saline and Dilaudid for pain. Additional Dilaudid provided due to ongoing pain. Spoke to Dr. Rodriguez who advised continue wound care at home with supplies previously provided. Patient discharged with T3 starter pack and advised follow-up with PCP and Dr. Rodriguez for any ongoing or worsening issues. Discussed patient with Dr. Martinez. Undiagnosed new problem with uncertain prognosis? @ -No Drug Therapy requiring intensive monitoring for toxicity (Heparin, Nitro, Insulin, Cardizem)? @ -No Were any procedures done? @ -Wound irrigated copiously and aerobic wound culture obtained Diagnosis/symptom? @ -Surgical site pain Acute, or Chronic, or Acute on Chronic? @ -Acute Uncomplicated (without systemic symptoms) or Complicated (systemic symptoms)? @ -Uncomplicated Side effects of treatment? @ -No Exacerbation, Progression, or Severe Exacerbation? @ -No Poses a threat to life or bodily function? How? (Chest pain, [place], [place], pneumonia, PE, COPD, DKA, ARF, appy, cholecystitis, CVA, Diverticulitis, Homicidal, Suicidal, threat to staff... and all critical care pts) @ -No - Lab Data Result diagrams: 12/04/24 15:46 12/04/24 15:46 Lab Results 12/04/24 12/04/24 Range/Units 15:46 15:46 WBC 11.13 H (4.50-10.00) 10*3/uL RBC 5.26 H (4.10-5.20) 10*6/uL Hgb 16.3 H (12.0-15.0) g/dL Hct 47.1 H (37.2-46.3) % MCV 89.5 (80.0-97.0) fL MCH 31.0 (27.0-32.0) pg MCHC 34.6 (32.0-37.0) g/dL Plt Count 237 (140-440) 10*3/uL MPV 10.4 (9.5-12.2) fL Immature Gran % (Auto) 0.4 % Neutrophils % 65.4 % Lymphocytes % 24.3 % Monocytes % 7.4 % Eosinophils % 1.6 % Basophils % 0.9 % Immature Gran # 0.05 H (0.00-0.04) 10*3/uL Neutrophils # 7.27 (1.80-7.70) 10*3/uL Lymphocytes # 2.71 (0.90-5.00) 10*3/uL Monocytes # 0.82 (0.20-1.00) 10*3/uL Eosinophils # 0.18 (0.04-0.35) 10*3/uL Basophils # 0.10 (0.00-0.10) 10*3/uL Sodium 139 (137-145) mmol/L Potassium 4.1 (3.5-5.1) mmol/L Chloride 102 (98-107) mmol/L Carbon Dioxide 26 (22-30) mmol/L Anion Gap 11 mmol/L BUN 23 H (7-17) mg/dL Creatinine 0.61 (0.52-1.04) mg/dL Est GFR (CKD-EPI)AfAm >90 (>60 ml/min/1.73 sqM) Est GFR (CKD-EPI)NonAf >90 (>60 ml/min/1.73 sqM) Glucose 138 H (74-99) mg/dL Calcium 10.2 (8.4-10.2) mg/dL Total Bilirubin 0.9 (0.2-1.3) mg/dL AST 19 (14-36) U/L ALT 22 (4-34) U/L Alkaline Phosphatase 165 H (38-126) U/L Total Protein 8.3 H (6.3-8.2) g/dL Albumin 4.7 (3.5-5.0) g/dL Disposition Clinical Impression: Postoperative abdominal pain Disposition: HOME SELF-CARE Condition: Good Instructions (If sedation given, give patient instructions): Acute Wound Care (ED) Additional Instructions: Follow-up with pain management clinic for long-term management of pain. Follow- up with wound management/surgical office for wound care issues. Is patient prescribed a controlled substance at d/c from ED?: No Referrals: Vinicio Matthew DO [STAFF PHYSICIAN] - 1-2 days Nonstaff,Physician [Primary Care Provider] - 1-2 days Haroon Lewis MD [STAFF PHYSICIAN] - 1-2 days Time of Disposition: 16:31
[2024-12-04] MEDS: HYDROmorphone 1 MG/ML 1 ML SYRINGE IVP STA ×2 (15:34→17:09)
[2024-12-04] MEDS: SODIUM CHLORIDE 0.9% 1,000 ML IV STA (15:34)
[2024-12-04 15:57] LABS: Basophils % (A) 0.9 %; Eosinophils # (A) 0.18 10*3/uL (0.04-0.35); Eosinophils % (A) 1.6 %; HCT 47.1 % (37.2-46.3); HGB 16.3 g/dL (12.0-15.0); Lymphocytes # (A) 2.71 10*3/uL (0.90-5.00); Lymphocytes % (A) 24.3 %; MCHC 34.6 g/dL (32.0-37.0); MCV 89.5 fL (80.0-97.0); Mean Platelet Volume 10.4 fL (9.5-12.2); Monocytes # (A) 0.82 10*3/uL (0.20-1.00); Monocytes % (A) 7.4 %; Neutrophils # (A) 7.27 10*3/uL (1.80-7.70); Neutrophils % (A) 65.4 %; Platelet Count 237 10*3/uL (140-440); RBC 5.26 10*6/uL (4.10-5.20); RDW 13.4 % (11.5-14.5); WBC 11.13 10*3/uL (4.50-10.00)
[2024-12-04 16:22] LABS: ALT 22 U/L (4-34); AST 19 U/L (14-36); African American GFR (CKD) >90 (>60 ml/min/1.73 sqM); Albumin 4.7 g/dL (3.5-5.0); Alkaline Phosphatase 165 U/L (38-126); Anion Gap 11 mmol/L; Blood Urea Nitrogen 23 mg/dL (7-17); Calcium 10.2 mg/dL (8.4-10.2); Carbon Dioxide 26 mmol/L (22-30); Chloride 102 mmol/L (98-107); Glucose 138 mg/dL (74-99); Non-African American GFR(CKD) >90 (>60 ml/min/1.73 sqM); Potassium 4.1 mmol/L (3.5-5.1); Sodium 139 mmol/L (137-145); Total Bilirubin 0.9 mg/dL (0.2-1.3); Total Protein 8.3 g/dL (6.3-8.2)
[2024-12-04] MEDS: ACET/COD 300 MG/30 MG STARTER PACK 6 TAB BTL PO STA (16:42)
[2024-12-04 17:09] VITALS: BP 139/107; PULSE 78; RESP 18; TEMP 98.5
== END 2024-12-04 17:18 | disposition home or self-care (01) ==
LOC: EC 11:27
DX: G89.18 Other acute postprocedural pain (principal); R10.12 Left upper quadrant pain; D72.829 Elevated white blood cell count, unspecified; E11.65 Type 2 diabetes mellitus with hyperglycemia; B95.62 Methicillin resistant Staphylococcus aureus infection as the cause of diseases classified elsewhere; F17.200 Nicotine dependence, unspecified, uncomplicated; Z88.1 Allergy status to other antibiotic agents; Z79.4 Long term (current) use of insulin; Z79.84 Long term (current) use of oral hypoglycemic drugs; Z86.73 Personal history of transient ischemic attack (TIA), and cerebral infarction without residual deficits
CPT/HCPCS: 36415; 80053; 85025; 87070; 87205; 87077; 87186; 99284; 96374; 96376; 96361; J1171

== ENCOUNTER 2024-12-17 21:34 | Inpatient (IN) | payer MEDICARE, OTHER ==
--- NOTE | 2024-12-17 21:58 | ED ---
General Adult HPI - General Chief complaint: Abdominal Pain Stated complaint: abd pain Time Seen by Provider: 12/17/24 21:40 Source: patient, EMS Mode of arrival: EMS - History of Present Illness Initial comments: Patient is a 54-year-old female past medical history ofCOPD, CVA, diabetes, prior DVT, hyperlipidemia, hypertension, status post bowel resection today for sudden onset abdominal pain. History is limited because patient has expressive aphasia secondary to prior stroke. States she was vacuuming today and had sudden worsening her abdominal pain and increased drainage from her ostomy reversal site. Had ostomy reversed about [address] Subramanian. Has had abdominal distention and mild pain since then. She denies nausea, vomiting, constipation. Had a bowel movement this morning. Denies chest pain or shortness of breath or fevers. - Related Data Home Medications Medication Instructions Recorded Confirmed Insulin Glargine,Hum.rec.anlog 50 unit SQ DAILY 08/04/21 11/22/24 [Lantus Solostar Pen] hydroCHLOROthiazide [Hydrodiuril] 12.5 mg PO DAILY 08/04/21 11/22/24 busPIRone HCL 15 mg PO TID 03/14/23 11/22/24 traZODone HCL 150 mg PO HS 03/14/23 11/22/24 Atorvastatin [Lipitor] 80 mg PO DAILY 08/07/23 11/22/24 Apixaban [Eliquis] 5 mg PO BID 05/03/24 11/22/24 Ezetimibe [Zetia] 10 mg PO DAILY 05/03/24 11/22/24 Famotidine 40 mg PO DAILY 05/03/24 11/22/24 Venlafaxine HCl [Effexor XR] 150 mg PO DAILY 05/03/24 11/22/24 cloNIDine HCL 0.05 mg PO BID 05/03/24 11/22/24 Ipratropium-Albuterol Nebulize 3 ml INHALATION RT-QID 06/15/24 11/22/24 [Duoneb 0.5 mg-3 mg/3 ml Soln] Dapagliflozin Propanediol [Farxiga] 10 mg PO DAILY 11/22/24 11/22/24 HYDROcodone/APAP 10-325MG [[place] 1 tab PO TID 11/22/24 11/22/24 10-325] Potassium Chloride ER [K-Dur 20] 20 meq PO DAILY 11/22/24 11/22/24 Previous Rx's Medication Instructions Recorded Gabapentin 800 mg PO TID 3 Days #9 tab 07/12/23 Acetaminophen Tab [Tylenol] 650 mg PO Q6HR PRN tab 12/01/24 Nicotine 21Mg/24Hr Patch [Habitrol] 1 patch TRANSDERM DAILY #30 patch 12/01/24 lisinopriL [Zestril] 10 mg PO DAILY #30 tab 12/01/24 Allergies Allergy/AdvReac Type Severity Reaction Status Date / Time ceftriaxone [From Rocephin] Allergy Rash/Hives Verified 12/17/24 21:40 Review of Systems ROS Statement: Those systems with pertinent positive or pertinent negative responses have been documented in the HPI. ROS Other: All systems not noted in ROS Statement are negative. Limitations: ROS unobtainable due to patients medical condition Past Medical History Past Medical History: COPD, CVA/TIA, Diabetes Mellitus, Deep Vein Thrombosis (DV T), GERD/Reflux, Hyperlipidemia, Hypertension Additional Past Medical History / Comment(s): CVA 2020- expressive aphasia; 2 DVT's; diverticulitis; hernia History of Any Multi-Drug Resistant Organisms: MRSA Date of last positivie culture/infection: 09/03/23 MDRO Source:: Groin Past Surgical History: Bowel Resection Additional Past Surgical History / Comment(s): IVC FILTER 2013. ileostomy. wound vac. ileostomy reversal with hernia repair, with ovary removal-Apr 2024. Past Anesthesia/Blood Transfusion Reactions: No Reported Reaction Past Psychological History: Depression, PTSD Smoking Status: Current every day smoker Past Alcohol Use History: None Reported Past Drug Use History: None Reported General Exam - General Exam Comments Initial Comments: PE: CONSTITUTIONAL: No apparent distress, well appearing, tearful SKIN: Warm, dry, no jaundice, hives or petechiae ostomy reversal site without purulent exudate or erythema though does have bandage covering serosanguineous negative EYES: Pupils are equally round, extraocular movements intact without nystagmus, clear conjunctiva, non-icteric sclera HENT: Normocephalic, atraumatic, moist mucus membranes, oropharynx clear without exudates NECK: , Full range of motion, normal appearance PULMONARY: Clear to auscultation without wheezes, rhonchi, or rales, normal excursion, no accessory muscle use and no stridor CARDIOVASCULAR: Regular rate, rhythm, normal S1 and S2. No appreciated murmurs, rubs or gallops. Strong radial pulses with intact distal perfusion. No lower extremity edema GASTROINTESTINAL: Firm, distended, hyperactive bowel sounds, tenderness palpation in the left upper quadrant, no palpable masses, guarding with palpation no rebound No hepatosplenomegaly, no hernias GENITOURINARY: MUSCULOSKELETAL: Extremities have no gross deformity, no edema, redness, or swelling. NEUROLOGIC:_a/o x 3, GCS 15, normal mentation and speech. Moves all extremities x 4 without motor or sensory deficit, baseline expressive aphasia PSYCHIATRIC:_normal mood and affect, thought process is clear and linear Course Vital Signs 12/17/24 12/17/24 12/17/24 21:38 22:01 23:00 Temperature 99.4 F Pulse Rate 88 99 87 Respiratory 18 18 18 Rate Blood Pressure 180/105 152/106 128/84 O2 Sat by Pulse 98 97 98 Oximetry 12/18/24 12/18/24 12/18/24 00:00 00:48 01:00 Temperature 98.6 F Pulse Rate 90 84 Respiratory 18 18 Rate Blood Pressure 141/92 127/101 O2 Sat by Pulse 95 98 Oximetry 12/18/24 02:00 Temperature Pulse Rate 84 Respiratory 18 Rate Blood Pressure 138/84 O2 Sat by Pulse 98 Oximetry Medical Decision Making - Medical Decision Making Was pt. sent in by a medical professional or institution (EVELINA Rosenthal, PORTAL DEVELOPER, urgent care, hospital, or prison...) When possible be specific @ -No Did you speak to anyone other than the patient for history (EMS, parent, family, police, friend...)? What history was obtained from this source @ -No Did you review nursing and triage notes (agree or disagree)? Why? @ -I reviewed and agree with nursing and triage notes Were old charts reviewed (outside hosp., previous admission, EMS record, old EKG, old radiological studies, urgent care reports/EKG's, prison records)? Report findings @ -Medical records reviewed reviewed discharge summary from12/01/2024, patient had been admitted for abdominal wall serosa seroma with abscess, requiring drainage and broad-spectrum antibiotics, debridement and washout Differential Diagnosis (chest pain, altered mental status, abdominal pain women, abdominal pain men, vaginal bleeding, weakness, fever, dyspnea, syncope, headache, dizziness, GI bleed, back pain, seizure, CVA, palpatations, mental health, musculoskeletal)? @ -Differential Abdominal Pain Women: Appendicitis, Cholecystitis, diverticulosis, ischemic bowel, pancreatitis, he patitis, UTI, gastroenteritis, AAA, incarcerated hernia, bowel obstruction, constipation, inflammatory bowel, hepatitis, peptic ulcer disease, splenic infarction, perforated viscus, vulvitis, ovarian torsion, PID, kidney stone, placenta abruption, this is not meant to be an all-inclusive list EKG interpreted by me (3pts min.). @ -As above X-rays interpreted by me (1pt min.). @ -None done CT interpreted by me (1pt min.). @ -[Personally reviewed CT scan, appears to show some fat stranding near ostomy site but I see no free air or free fluid indicating bowel perforation, or bowel obstruction radiologist notes possible developing abscess U/S interpreted by me (1pt. min.). @ -None done What testing was considered but not performed or refused? (CT, X-rays, U/S, labs)? Why? @ -None What meds were considered but not given or refused? Why? @ -None Did you discuss the management of the patient with other professionals (professionals i.e. , PA, PORTAL DEVELOPER, lab, RT, psych nurse, licensed clinical social worker, caustic operator, teacher, guest relation officer, community case manager)? Give summary Case was discussed with Dr. Subramanian, states pt can follow up in his office tomorrow Was smoking cessation discussed for >3mins.? @ -No Was critical care preformed (if so, how long)? @ -No Were there social determinants of health that impacted care today? How? (Homelessness, low income, unemployed, alcoholism, drug addiction, transportation, low edu. Level, literacy, decrease access to med. care, fdc, rehab)? @ -No Was there de-escalation of care discussed even if they declined (Discuss DNR or withdrawal of care, Hospice)? @ -No What co-morbidities impacted this encounter? (DM, HTN, Smoking, COPD, CAD, Cancer, CVA, ARF, Chemo, Hep., AIDS, mental health diagnosis, sleep apnea, morbid obesity)? @Ostomy reversal, hypertension, hyperlipidemia, prior CVA Was patient admitted / discharged? Hospital course, mention meds given and route, prescriptions, significant lab abnormalities, going to OR and other pertinent info. @Admission- 54-year-old female presenting today for sudden worsening abdominal pain 2 weeks post ostomy reversal, abscess drainage. On exam abdomen is distended, hyperactive bowel sounds tender quotation left upper quadrant. Patient is tearful. Will provide with pain control, competence of labs CT abdomen pelvis. Of note patient at 3 point hemoglobin dropped denies any black or bloody stools. Last hemoglobin was checked on 12/04/[address] showed possible developing abscess. Patient required 2 dose of Dilaudid for pain control and still somewhat uncomfortable. did reach out to Dr. Subramanian who stated he could see patient in his office tomorrow. I discussed this with the patient- she does not feel comfortable with going home, I am inclined to agree given the CT findings showing possible developing abscess and pt's intractable pain, and abdominal exam. Ordered cefepime, vancomycin, will admit to [facility] for intractable abdominal pain, surgery consult and observation. Case discussed with Román [facility], kindly accepts pt for admission. Undiagnosed new problem with uncertain prognosis? @ -No Drug Therapy requiring intensive monitoring for toxicity (Heparin, Nitro, Insulin, Cardizem)? @ -No Were any procedures done? @ -No Diagnosis/symptom? @intractable abdominal pain, post op pain, question developing intraabdominal abscess Acute, or Chronic, or Acute on Chronic? @ -[acute Uncomplicated (without systemic symptoms) or Complicated (systemic symptoms)? complicated Side effects of treatment? @ -No Exacerbation, Progression, or Severe Exacerbation? @ -No Poses a threat to life or bodily function? How? (Chest pain, [place], [place], pneumonia, PE, COPD, DKA, ARF, appy, cholecystitis, CVA, Diverticulitis, Homicidal, Suicidal, threat to staff... and all critical care pts) @Potentially, if pain ultimately is caused by abscess, and left untreated would lead to sepsis, potentially septic shock and - Lab Data Result diagrams: 12/17/24 21:49 12/17/24 22:09 Lab Results 12/17/24 12/17/24 12/17/24 Range/Units 21:49 22:06 22:09 WBC 8.98 (4.50-10.00) 10*3/uL RBC 4.17 (4.10-5.20) 10*6/uL Hgb 12.9 D (12.0-15.0) g/dL Hct 37.8 (37.2-46.3) % MCV 90.6 (80.0-97.0) fL MCH 30.9 (27.0-32.0) pg MCHC 34.1 (32.0-37.0) g/dL Plt Count 197 (140-440) 10*3/uL MPV 10.6 (9.5-12.2) fL Immature Gran % (Auto) 0.4 % Neutrophils % 67.6 % Lymphocytes % 22.0 % Monocytes % 7.6 % Eosinophils % 1.8 % Basophils % 0.6 % Immature Gran # 0.04 (0.00-0.04) 10*3/uL Neutrophils # 6.07 (1.80-7.70) 10*3/uL Lymphocytes # 1.98 (0.90-5.00) 10*3/uL Monocytes # 0.68 (0.20-1.00) 10*3/uL Eosinophils # 0.16 (0.04-0.35) 10*3/uL Basophils # 0.05 (0.00-0.10) 10*3/uL PT (10.0-12.5) sec INR (<1.2) APTT (22.0-30.0) sec Sodium (137-145) mmol/L Potassium (3.5-5.1) mmol/L Chloride (98-107) mmol/L Carbon Dioxide (22-30) mmol/L Anion Gap mmol/L BUN (7-17) mg/dL Creatinine (0.52-1.04) mg/dL Est GFR (CKD-EPI)AfAm (>60 ml/min/1.73 sqM) Est GFR (CKD-EPI)NonAf (>60 ml/min/1.73 sqM) Glucose (74-99) mg/dL POC Glucose (mg/dL) (70-110) mg/dL POC Glu Trailer Mechanic ID Lactic Ac Sepsis Rflx Plasma Lactic Acid Kyrie (0.7-2.0) mmol/L Calcium (8.4-10.2) mg/dL Total Bilirubin (0.2-1.3) mg/dL AST (14-36) U/L ALT (4-34) U/L Alkaline Phosphatase (38-126) U/L Total Protein (6.3-8.2) g/dL Albumin (3.5-5.0) g/dL Amylase (30-110) U/L Lipase (23-300) U/L Urine Color Colorless Urine Appearance Clear (Clear) Urine pH 7.0 (5.0-8.0) Ur Specific [place] 1.026 (1.001-1.035) Urine Protein Negative (Negative) Urine Glucose (UA) 4+ H (Negative) Urine Ketones Negative (Negative) Urine Blood Negative (Negative) Urine Nitrite Negative (Negative) Urine Bilirubin Negative (Negative) Urine Urobilinogen <2.0 (<2.0) mg/dL Ur Leukocyte Esterase Negative (Negative) Blood Type O Positive Blood Type Recheck O Pos Bld Type Recheck Status No Antibody Screen NEGATIVE Spec Expiration Date 12/20/2024230512/17/24 12/17/24 12/17/24 Range/Units 22:09 22:09 22:23 WBC (4.50-10.00) 10*3/uL RBC (4.10-5.20) 10*6/uL Hgb (12.0-15.0) g/dL Hct (37.2-46.3) % MCV (80.0-97.0) fL MCH (27.0-32.0) pg MCHC (32.0-37.0) g/dL Plt Count (140-440) 10*3/uL MPV (9.5-12.2) fL Immature Gran % (Auto) % Neutrophils % % Lymphocytes % % Monocytes % % Eosinophils % % Basophils % % Immature Gran # (0.00-0.04) 10*3/uL Neutrophils # (1.80-7.70) 10*3/uL Lymphocytes # (0.90-5.00) 10*3/uL Monocytes # (0.20-1.00) 10*3/uL Eosinophils # (0.04-0.35) 10*3/uL Basophils # (0.00-0.10) 10*3/uL PT (10.0-12.5) sec INR (<1.2) APTT (22.0-30.0) sec Sodium 135 L (137-145) mmol/L Potassium 3.8 (3.5-5.1) mmol/L Chloride 101 (98-107) mmol/L Carbon Dioxide 23 (22-30) mmol/L Anion Gap 11 mmol/L BUN 24 H (7-17) mg/dL Creatinine 0.81 (0.52-1.04) mg/dL Est GFR (CKD-EPI)AfAm >90 (>60 ml/min/1.73 sqM) Est GFR (CKD-EPI)NonAf 84 (>60 ml/min/1.73 sqM) Glucose 378 H (74-99) mg/dL POC Glucose (mg/dL) (70-110) mg/dL POC Glu Trailer Mechanic ID Lactic Ac Sepsis Rflx Y Plasma Lactic Acid Kyrie 2.1 H* (0.7-2.0) mmol/L Calcium 9.0 (8.4-10.2) mg/dL Total Bilirubin 0.7 (0.2-1.3) mg/dL AST 33 (14-36) U/L ALT 30 (4-34) U/L Alkaline Phosphatase 134 H (38-126) U/L Total Protein 6.8 (6.3-8.2) g/dL Albumin 3.9 (3.5-5.0) g/dL Amylase 56 (30-110) U/L Lipase 164 (23-300) U/L Urine Color Urine Appearance (Clear) Urine pH (5.0-8.0) Ur Specific [place] (1.001-1.035) Urine Protein (Negative) Urine Glucose (UA) (Negative) Urine Ketones (Negative) Urine Blood (Negative) Urine Nitrite (Negative) Urine Bilirubin (Negative) Urine Urobilinogen (<2.0) mg/dL Ur Leukocyte Esterase (Negative) Blood Type Blood Type Recheck Bld Type Recheck Status Antibody Screen Spec Expiration Date 12/17/24 12/18/24 12/18/24 Range/Units 22:35 00:42 00:56 WBC (4.50-10.00) 10*3/uL RBC (4.10-5.20) 10*6/uL Hgb (12.0-15.0) g/dL Hct (37.2-46.3) % MCV (80.0-97.0) fL MCH (27.0-32.0) pg MCHC (32.0-37.0) g/dL Plt Count (140-440) 10*3/uL MPV (9.5-12.2) fL Immature Gran % (Auto) % Neutrophils % % Lymphocytes % % Monocytes % % Eosinophils % % Basophils % % Immature Gran # (0.00-0.04) 10*3/uL Neutrophils # (1.80-7.70) 10*3/uL Lymphocytes # (0.90-5.00) 10*3/uL Monocytes # (0.20-1.00) 10*3/uL Eosinophils # (0.04-0.35) 10*3/uL Basophils # (0.00-0.10) 10*3/uL PT 9.3 L (10.0-12.5) sec INR 0.8 (<1.2) APTT 20.7 L (22.0-30.0) sec Sodium (137-145) mmol/L Potassium (3.5-5.1) mmol/L Chloride (98-107) mmol/L Carbon Dioxide (22-30) mmol/L Anion Gap mmol/L BUN (7-17) mg/dL Creatinine (0.52-1.04) mg/dL Est GFR (CKD-EPI)AfAm (>60 ml/min/1.73 sqM) Est GFR (CKD-EPI)NonAf (>60 ml/min/1.73 sqM) Glucose (74-99) mg/dL POC Glucose (mg/dL) 309 H (70-110) mg/dL POC Glu Trailer Mechanic ID Aleksandr Chey Lactic Ac Sepsis Rflx Plasma Lactic Acid [place] 1.2 (0.7-2.0) mmol/L Calcium (8.4-10.2) mg/dL Total Bilirubin (0.2-1.3) mg/dL AST (14-36) U/L ALT (4-34) U/L Alkaline Phosphatase (38-126) U/L Total Protein (6.3-8.2) g/dL Albumin (3.5-5.0) g/dL Amylase (30-110) U/L Lipase (23-300) U/L Urine Color Urine Appearance (Clear) Urine pH (5.0-8.0) Ur Specific [place] (1.001-1.035) Urine Protein (Negative) Urine Glucose (UA) (Negative) Urine Ketones (Negative) Urine Blood (Negative) Urine Nitrite (Negative) Urine Bilirubin (Negative) Urine Urobilinogen (<2.0) mg/dL Ur Leukocyte Esterase (Negative) Blood Type Blood Type Recheck Bld Type Recheck Status Antibody Screen Spec Expiration Date Disposition Clinical Impression: Intractable abdominal pain, Post-op pain Disposition: ADMITTED IP TO THIS HOSP Condition: Stable
[2024-12-17 22:02] LABS: Basophils # (A) 0.05 10*3/uL (0.00-0.10); Basophils % (A) 0.6 %; Eosinophils # (A) 0.16 10*3/uL (0.04-0.35); Eosinophils % (A) 1.8 %; HCT 37.8 % (37.2-46.3); Lymphocytes # (A) 1.98 10*3/uL (0.90-5.00); MCH 30.9 pg (27.0-32.0); MCHC 34.1 g/dL (32.0-37.0); MCV 90.6 fL (80.0-97.0); Mean Platelet Volume 10.6 fL (9.5-12.2); Monocytes # (A) 0.68 10*3/uL (0.20-1.00); Monocytes % (A) 7.6 %; Neutrophils # (A) 6.07 10*3/uL (1.80-7.70); Neutrophils % (A) 67.6 %; Platelet Count 197 10*3/uL (140-440); RBC 4.17 10*6/uL (4.10-5.20); RDW 13.3 % (11.5-14.5); WBC 8.98 10*3/uL (4.50-10.00)
[2024-12-17] MEDS: SODIUM CHLORIDE 0.9% 1,000 ML IV ONE (22:10)
[2024-12-17] MEDS: HYDROmorphone 1 MG/ML 1 ML SYRINGE IVP STA ×2 (22:12→23:46)
[2024-12-17 22:19] LABS: Appearance,Urine Clear (Clear); Bilirubin,Urine Negative (Negative); Blood,Urine Negative (Negative); Color,Urine Colorless; Glucose,Urine (UA) 4+ (Negative); Ketones,Urine Negative (Negative); Leukocyte Esterase,Urine Negative (Negative); Nitrite,Urine Negative (Negative); Protein,Urine Negative (Negative); Specific Gravity,Urine 1.026 (1.001-1.035); Urobilinogen,Urine <2.0 mg/dL (<2.0)
[2024-12-17 22:22] LABS: ALT 30 U/L (4-34); AST 33 U/L (14-36); African American GFR (CKD) >90 (>60 ml/min/1.73 sqM); Albumin 3.9 g/dL (3.5-5.0); Alkaline Phosphatase 134 U/L (38-126); Amylase 56 U/L (30-110); Anion Gap 11 mmol/L; Blood Urea Nitrogen 24 mg/dL (7-17); Carbon Dioxide 23 mmol/L (22-30); Chloride 101 mmol/L (98-107); Glucose 378 mg/dL (74-99); Lipase 164 U/L (23-300); Non-African American GFR(CKD) 84 (>60 ml/min/1.73 sqM); Potassium 3.8 mmol/L (3.5-5.1); Sodium 135 mmol/L (137-145); Total Bilirubin 0.7 mg/dL (0.2-1.3); Total Protein 6.8 g/dL (6.3-8.2)
[2024-12-17 23:08] LABS: INR 0.8 (<1.2); Prothrombin Time 9.3 sec (10.0-12.5)
[2024-12-17 23:25] LABS: Partial Thromboplastin Time 20.7 sec (22.0-30.0)
[2024-12-17 23:26] LABS: HGB 12.9 g/dL (12.0-15.0)
--- NOTE | 2024-12-17 23:48 | CT ---
EXAM: CT Abdomen and Pelvis With Intravenous Contrast CLINICAL HISTORY: ITS.REASON CT Reason: sudden worsening ab pain, recent ostomy reversal TECHNIQUE: Axial computed tomography images of the abdomen and pelvis with intravenous contrast. CTDI is 19.9 mGy and DLP is 997.4 mGy-cm. This CT exam was performed using one or more of the following dose reduction techniques: automated exposure control, adjustment of the mA and/or kV according to patient size, and/or use of iterative reconstruction technique. COMPARISON: No relevant prior studies available. FINDINGS: Lung bases: Unremarkable. No mass. No consolidation. ABDOMEN: Liver: Unremarkable. No mass. Gallbladder and bile ducts: Unremarkable. No calcified stones. No ductal dilation. Pancreas: Unremarkable. No mass. No ductal dilation. Spleen: Unremarkable. No splenomegaly. Adrenals: Unremarkable. No mass. Kidneys and ureters: Unremarkable. No solid mass. No hydronephrosis. Stomach and bowel: Recent ostomy reversal. Skin thickening, mild coalescing edema, and packing material in the ostomy wound. Developing abscess cannot be excluded however, there is currently not a significant drainable component. Diverticulosis, without acute diverticulitis. No small bowel obstruction. No free intraperitoneal air. PELVIS: Appendix: No findings to suggest acute appendicitis. Bladder: Unremarkable. No mass. Reproductive: Unremarkable as visualized. ABDOMEN and PELVIS: Intraperitoneal space: Unremarkable. No free air. No significant fluid collection. Bones/joints: No acute fracture. No dislocation. Soft tissues: See above. Vasculature: IVC filter. No abdominal aortic aneurysm. Lymph nodes: Unremarkable. No enlarged lymph nodes. IMPRESSION: 1. Recent ostomy reversal. Skin thickening, mild coalescing edema, and packing material in the ostomy wound. Developing abscess cannot be excluded however, there is currently not a significant drainable component. 2. Diverticulosis, without acute diverticulitis. No small bowel obstruction. No free intraperitoneal air.
[2024-12-18 00:58] LABS: Glucose,Whole Blood 309 mg/dL (70-110)
[2024-12-18] MEDS ORDERED: HYDROmorphone 1 MG/ML 1 ML SYRINGE IVP PRN ×2 (01:23→01:57)
[2024-12-18] MEDS ORDERED: VANCOMYCIN IV PER PHARMACY 1 EACH MISC MISCELLANE PRN (01:24)
[2024-12-18] MEDS ORDERED: NALOXONE 0.4 MG/ML 1 ML VIAL IV PRN (01:57)
[2024-12-18] MEDS ORDERED: MAG HYDROX/AL HYDROX/SIMETH 30 ML CUP PO PRN (01:57)
[2024-12-18] MEDS ORDERED: ACETAMINOPHEN TAB 325 MG TAB PO PRN (01:57)
[2024-12-18] MEDS ORDERED: CALCIUM CARBONATE 500 MG CHEWABLE PO PRN (01:57)
[2024-12-18] MEDS ORDERED: ONDANSETRON 4 MG/2 ML VIAL IVP PRN (01:57)
[2024-12-18] MEDS: SODIUM CHLORIDE 0.9% 1,000 ML IV SCH (02:17)
[2024-12-18] MEDS: CEFEPIME 2 GM in SODIUM CHLORIDE 0.9% 100 ML IVPB ONE (02:18)
[2024-12-18] MEDS: HYDROmorphone 0.5 MG/0.5 ML SYRINGE IVP PRN (03:29)
[2024-12-18] MEDS: VANCOMYCIN 1,500 MG in SODIUM CHLORIDE 0.9% 500 ML 500 ML IVPB ONE (04:06)
[2024-12-18] MEDS: traZODone HCL 50 MG TAB PO SCH (04:13)
[2024-12-18] MEDS: INSULIN GLARGINE (LANTUS) 100 UNIT/ML SYR SQ SCH (08:30)
[2024-12-18] MEDS: FAMOTIDINE 20 MG TAB PO SCH (08:31)
[2024-12-18] MEDS: APIXABAN 5 MG TAB PO SCH (08:31)
[2024-12-18] MEDS: lisinopriL 10 MG TAB PO SCH (08:31)
[2024-12-18] MEDS: busPIRone HCl 5 MG TAB PO SCH (08:31)
[2024-12-18] MEDS: ATORVASTATIN 80 MG TAB PO SCH (08:31)
[2024-12-18] MEDS: NICOTINE 21MG/24HR PATCH TRANSDERM SCH (08:31)
[2024-12-18] MEDS: EZETIMIBE 10 MG TAB PO SCH (08:31)
[2024-12-18] MEDS: GABAPENTIN 400 MG CAP PO SCH (08:31)
[2024-12-18] MEDS: cloNIDine HCL 0.1 MG TAB PO SCH (08:31)
[2024-12-18] MEDS: DAPAGLIFLOZIN PROPANEDIOL 10 MG TABLET PO SCH (08:32)
[2024-12-18] MEDS: IPRATROPIUM-ALBUTEROL 3 ML NEB INHALATION SCH (08:38)
[2024-12-18] MEDS: hydroCHLOROthiazide 12.5 MG CAP PO SCH (08:40)
[2024-12-18] MEDS ORDERED: HYDROmorphone 2 MG/ML 1 ML SYRINGE IVP PRN (09:36)
[2024-12-18] MEDS: VENLAFAXINE HCL ER 150 MG CAP PO SCH (09:46)
[2024-12-18] MEDS ORDERED: DEXTROSE 50% SYRINGE 50 ML IVP PRN ×2 (10:24)
[2024-12-18] MEDS: HYDROcodone/APAP 10-325MG 1 EACH TAB PO PRN (11:40)
[2024-12-18 12:10] LABS: Glucose,Whole Blood 179 mg/dL (70-110)
[2024-12-18] MEDS ORDERED: KETOROLAC 15 MG/ML 1 ML VIAL IVP PRN (12:12)
--- NOTE | 2024-12-18 12:19 | P.HPIM ---
History of Present Illness 54-year-old female had a abdominal surgery and an ostomy 2 weeks ago came in with abdominal pain around the surgical site. The surgical site area appears to be clean except with a small fluctuant mass slightly next to the ostomy. Alt sukhjinder patient does not have any tenderness in that area patient does have slight tenderness around the surgical site area. Patient nausea vomiting does not have any fever there is no leukocytosis. REVIEW OF SYSTEMS: All other systems are negative except those mentioned in the HPI PHYSICAL EXAMINATION: GENERAL: The patient is alert and oriented x3, not in any acute distress. Well developed, well nourished. HEENT: Pupils are round and equally reacting to light. EOMI. No scleral icterus. No conjunctival pallor. Normocephalic, atraumatic. No pharyngeal erythema. No thyromegaly. CARDIOVASCULAR: S1 and S2 present. No murmurs, rubs, or gallops. PULMONARY: Chest is clear to auscultation, no wheezing or crackles. ABDOMEN: Soft, mild tenderness around the surgical site area and a small fluctuant mass few centimeters next to the ostomy, nondistended, normoactive bowel sounds. No palpable organomegaly. MUSCULOSKELETAL: No joint swelling or deformity. EXTREMITIES: No cyanosis, clubbing, or pedal edema. NEUROLOGICAL: Gross neurological examination did not reveal any focal deficits. SKIN: No rashes. Assessment and plan -Abdominal pain: Patient had an ostomy recently 2 weeks ago patient has pain in that area etiology is not clear CT of the abdomen did not show any obvious absce ss. General surgery will evaluate the patient patient is presently on broad- spectrum antibiotics although surgical site area does not appear to be infected at this time patient is presently on cefepime and vancomycin. Infectious disease will evaluate the patient. - COPD without any acute exacerbation - Type II levels noticed patient will be resumed on home regimen along with sliding scale insulin depending on the insulin requirements patient is insulin will be adjusted - Gastroesophageal reflux disease - Hyperlipidemia - Hypertension patient is on multiple anticoagulant medications patient with history on the lower side yesterday hydrochlorothiazide and clonidine was discontinued at this time - History of DVT for which patient is on Eliquis which was was resumed DVT prophylaxis: On Eliquis as mentioned above Past Medical History Past Medical History: COPD, CVA/TIA, Diabetes Mellitus, Deep Vein Thrombosis (DVT), GERD/Reflux, Hyperlipidemia, Hypertension Additional Past Medical History / Comment(s): CVA 2019- expressive aphasia; 2 DVT's; diverticulitis; hernia History of Any Multi-Drug Resistant Organisms: MRSA Date of last positivie culture/infection: 09/03/23 MDRO Source:: Groin Past Surgical History: Bowel Resection Additional Past Surgical History / Comment(s): IVC FILTER 2013. ileostomy. wound vac. ileostomy reversal with hernia repair, with ovary removal-Apr 2024. Past Anesthesia/Blood Transfusion Reactions: No Reported Reaction Past Psychological History: Depression, PTSD Smoking Status: Current every day smoker Past Alcohol Use History: None Reported Past Drug Use History: None Reported Medications and Allergies Home Medications Medication Instructions Recorded Confirmed Type Insulin Glargine,Hum.rec.anlog 50 unit SQ DAILY 08/04/21 12/18/24 History [Lantus Solostar Pen] hydroCHLOROthiazide [Hydrodiuril] 12.5 mg PO DAILY 08/04/21 12/18/24 History busPIRone HCL 15 mg PO TID 03/14/23 12/18/24 History traZODone HCL 150 mg PO HS 03/14/23 12/18/24 History Gabapentin 800 mg PO TID 3 Days #9 tab 07/12/23 12/18/24 Rx Atorvastatin [Lipitor] 80 mg PO DAILY 08/07/23 12/18/24 History Apixaban [Eliquis] 5 mg PO BID 05/03/24 12/18/24 History Ezetimibe [Zetia] 10 mg PO DAILY 05/03/24 12/18/24 History Famotidine 40 mg PO DAILY 05/03/24 12/18/24 History Venlafaxine HCl [Effexor XR] 150 mg PO DAILY 05/03/24 12/18/24 History cloNIDine HCL 0.05 mg PO BID 05/03/24 12/18/24 History Ipratropium-Albuterol Nebulize 3 ml INHALATION RT-QID 06/15/24 12/18/24 History [Duoneb 0.5 mg-3 mg/3 ml Soln] Dapagliflozin Propanediol [Farxiga] 10 mg PO DAILY 11/22/24 12/18/24 History HYDROcodone/APAP 10-325MG [[place] 1 tab PO TID 11/22/24 12/18/24 History 10-325] Potassium Chloride ER [K-Dur 20] 20 meq PO DAILY 11/22/24 12/18/24 History Acetaminophen Tab [Tylenol] 650 mg PO Q6HR PRN tab 12/01/24 12/18/24 Rx Nicotine 21Mg/24Hr Patch [Habitrol] 1 patch TRANSDERM DAILY #30 patch 12/01/24 12/18/24 Rx lisinopriL [Zestril] 10 mg PO DAILY #30 tab 12/01/24 12/18/24 Rx Allergies Allergy/AdvReac Type Severity Reaction Status Date / Time ceftriaxone [From Rocephin] Allergy Rash/Hives Verified 12/18/24 10:22 Physical Exam Vitals: Vital Signs Temp Pulse Pulse Resp BP BP Pulse Ox 12/18/24 12:07 91 12/18/24 11:59 83 12/18/24 08:00 82 16 12/18/24 07:47 97.9 F 82 16 139/81 96 12/18/24 04:31 16 12/18/24 03:27 98.3 F 79 20 114/81 95 12/18/24 02:00 84 18 138/84 98 12/18/24 01:00 84 18 127/101 98 12/18/24 00:48 98.6 F 12/18/24 00:00 90 18 141/92 95 12/17/24 23:00 87 18 128/84 98 12/17/24 22:01 99 18 152/106 97 12/17/24 21:38 99.4 F 88 18 180/105 98 Intake and Output 12/17/24 12/18/24 12/18/24 22:59 06:59 14:59 Intake Total 60 Balance 60 Intake: Oral 60 Other: # Voids 1 Weight 72.575 kg 72.575 kg Results CBC & Chem 7: 12/17/24 21:49 12/17/24 22:09 Labs: Abnormal Lab Results - Last 24 Hours (Table) 12/17/24 12/17/24 12/17/24 Range/Units 22:09 22:09 22:09 PT (10.0-12.5) sec APTT (22.0-30.0) sec Sodium 135 L (137-145) mmol/L BUN 24 H (7-17) mg/dL Glucose 378 H (74-99) mg/dL POC Glucose (mg/dL) (70-110) mg/dL Plasma Lactic Acid Kyrie 2.1 H* (0.7-2.0) mmol/L Alkaline Phosphatase 134 H (38-126) U/L Urine Glucose (UA) 4+ H (Negative) 12/17/24 12/18/24 12/18/24 Range/Units 22:35 00:56 12:08 PT 9.3 L (10.0-12.5) sec APTT 20.7 L (22.0-30.0) sec Sodium (137-145) mmol/L BUN (7-17) mg/dL Glucose (74-99) mg/dL POC Glucose (mg/dL) 309 H 179 H (70-110) mg/dL Plasma Lactic Acid Kyrie (0.7-2.0) mmol/L Alkaline Phosphatase (38-126) U/L Urine Glucose (UA) (Negative)
[2024-12-18] MEDS: INSULIN LISPRO (HumaLOG) 100 UNIT/ML 10 mL VL SQ SCH ×2 (12:22→13:02)
--- NOTE | 2024-12-18 13:08 | P.GSCN ---
History of Present Illness Consult date: 12/18/24 History of present illness: CHIEF COMPLAINT: abdominal pain HISTORY OF PRESENT ILLNESS: This is a 54-year-old female who presented to the hospital with complaints of abdominal pain. Patient reports she had been vacuuming her house and afterwards had felt abdominal pain. She has an abdominal wall wound at the incision site and had recently undergone a debridement on November 28, [address] Lewis. She also has a prior history of a lower anterior resection in May 2023 for diverticulitis and then subsequent colostomy reversal with incisional hernia repair and parastomal hernia repair in April 2024. Patient has had no fevers. Her white count is normal. CT scan results reviewed with Dr. Lewis there is no evidence of a developing abscess. Patient seen and examined with Dr. Lewis PAST MEDICAL HISTORY: COPD, CVA, DVT, GERD, hyperlipidemia, hypertension PAST SURGICAL HISTORY: Lower anterior resection with colostomy and then subsequent colostomy reversal with incisional hernia repair and parastomal hernia repair MEDICATIONS: See below ALLERGIES: See below SOCIAL HISTORY: No illicit drug use. REVIEW OF SYSTEMS: CONSTITUTIONAL: Denies fever or chills. HEENT: Denies blurred vision, vision changes, or eye pain. Denies hemoptysis CARDIOVASCULAR: Denies chest pain or pressure. RESPIRATORY: No shortness of breath. GASTROINTESTINAL: See HPI for pertinent findings HEMATOLOGIC: Denies bleeding disorders. GENITOURINARY: Denies any blood in urine or increased urinary frequency. SKIN: Denies pruitis. Denies rash. PHYSICAL EXAM: VITAL SIGNS: Reviewed GENERAL: Well-developed in no acute distress. HEENT: No sclera icterus. Extraocular movements grossly intact. Moist buccal mucosa. Head is atraumatic, normocephalic. No nasal drainage. ABDOMEN: Soft Nondistended. Midline incision with wound noted at the midline. Tissue is healthy with evidence of granulation tissue. Drainage is serosanguineous. There is edematous swelling mildly to the left of the incision. No erythema. No evidence of acute infection. NEUROLOGIC: Alert and oriented. Cranial nerves II through XII grossly intact. LABORATORY DATA: WBCs 8.98 Hgb 12.9 platelets 197 Sodium is 135 potassium 3.8 creatinine 0.81 Lactic acid 2.1 down to 1.2 IMAGING: CT scan abdomen pelvis reports recent ostomy reversal. Skin thickening, mild coalescing edema and packing material in ostomy wound. Developing abscess cannot be excluded however no significant drainable component. Diverticulosis with no diverticulitis. Note that the packing material is in the midline's incision wound. There is no ostomy wound. ASSESSMENT: 1. Abdominal pain after vacuuming. Likely musculoskeletal. CT scan results reviewed with Dr. Lewis. There is no evidence of abdominal abscess. Patient is afebrile. White count is normal. 2. Abdominal wound that is healing. No evidence of acute infection. 3. Chronic abdominal pain PLAN: - food and beverage manager consulted to arrange for outpatient wound VAC and home care - Recommend that patient follows up with wound care service outpatient - Patient can be discharged from surgical standpoint once wound VAC has been arranged outpatient - Continue pain management Physician Watch Electrician note has been reviewed by physician. Signing provider agrees with the documented findings, assessment, and plan of care. Past Medical History Past Medical History: COPD, CVA/TIA, Diabetes Mellitus, Deep Vein Thrombosis (DVT), GERD/Reflux, Hyperlipidemia, Hypertension Additional Past Medical History / Comment(s): CVA 2019- expressive aphasia; 2 DVT's; diverticulitis; hernia History of Any Multi-Drug Resistant Organisms: MRSA Year Discovered:: 09/03/23 MDRO Source:: Groin Past Surgical History: Bowel Resection Additional Past Surgical History / Comment(s): IVC FILTER 2013. ileostomy. wound vac. ileostomy reversal with hernia repair, with ovary removal-Apr 2024. Past Anesthesia/Blood Transfusion Reactions: No Reported Reaction Past Psychological History: Depression, PTSD Smoking Status: Current every day smoker Past Alcohol Use History: None Reported Past Drug Use History: None Reported Medications and Allergies Home Medications Medication Instructions Recorded Confirmed Type Insulin Glargine,Hum.rec.anlog 50 unit SQ DAILY 08/04/21 12/18/24 History [Lantus Solostar Pen] hydroCHLOROthiazide [Hydrodiuril] 12.5 mg PO DAILY 08/04/21 12/18/24 History busPIRone HCL 15 mg PO TID 03/14/23 12/18/24 History traZODone HCL 150 mg PO HS 03/14/23 12/18/24 History Gabapentin 800 mg PO TID 3 Days #9 tab 07/12/23 12/18/24 Rx Atorvastatin [Lipitor] 80 mg PO DAILY 08/07/23 12/18/24 History Apixaban [Eliquis] 5 mg PO BID 05/03/24 12/18/24 History Ezetimibe [Zetia] 10 mg PO DAILY 05/03/24 12/18/24 History Famotidine 40 mg PO DAILY 05/03/24 12/18/24 History Venlafaxine HCl [Effexor XR] 150 mg PO DAILY 05/03/24 12/18/24 History cloNIDine HCL 0.05 mg PO BID 05/03/24 12/18/24 History Ipratropium-Albuterol Nebulize 3 ml INHALATION RT-QID 06/15/24 12/18/24 History [Duoneb 0.5 mg-3 mg/3 ml Soln] Dapagliflozin Propanediol [Farxiga] 10 mg PO DAILY 11/22/24 12/18/24 History HYDROcodone/APAP 10-325MG [[place] 1 tab PO TID 11/22/24 12/18/24 History 10-325] Potassium Chloride ER [K-Dur 20] 20 meq PO DAILY 11/22/24 12/18/24 History Acetaminophen Tab [Tylenol] 650 mg PO Q6HR PRN tab 12/01/24 12/18/24 Rx Nicotine 21Mg/24Hr Patch [Habitrol] 1 patch TRANSDERM DAILY #30 patch 12/01/24 12/18/24 Rx lisinopriL [Zestril] 10 mg PO DAILY #30 tab 12/01/24 12/18/24 Rx Allergies Allergy/AdvReac Type Severity Reaction Status Date / Time ceftriaxone [From Rocephin] Allergy Rash/Hives Verified 12/18/24 10:22 Surgical - Exam Vital Signs Temp Pulse Resp BP Pulse Ox 99.4 F 88 18 180/105 98 12/17/24 21:38 12/17/24 21:38 12/17/24 21:38 12/17/24 21:38 12/17/24 21:38 Results - Labs 12/17/24 21:49 12/17/24 22:09 Abnormal Lab Results - Last 24 Hours (Table) 12/17/24 12/17/24 12/17/24 Range/Units 22:09 22:09 22:09 PT (10.0-12.5) sec APTT (22.0-30.0) sec Sodium 135 L (137-145) mmol/L BUN 24 H (7-17) mg/dL Glucose 378 H (74-99) mg/dL POC Glucose (mg/dL) (70-110) mg/dL Plasma Lactic Acid Kyrie 2.1 H* (0.7-2.0) mmol/L Alkaline Phosphatase 134 H (38-126) U/L Urine Glucose (UA) 4+ H (Negative) 12/17/24 12/18/24 Range/Units 22:35 00:56 PT 9.3 L (10.0-12.5) sec APTT 20.7 L (22.0-30.0) sec Sodium (137-145) mmol/L BUN (7-17) mg/dL Glucose (74-99) mg/dL POC Glucose (mg/dL) 309 H (70-110) mg/dL Plasma Lactic Acid Kyrie (0.7-2.0) mmol/L Alkaline Phosphatase (38-126) U/L Urine Glucose (UA) (Negative) Diabetes panel 12/17/24 Range/Units 22:09 Sodium 135 L (137-145) mmol/L Potassium 3.8 (3.5-5.1) mmol/L Chloride 101 (98-107) mmol/L Carbon Dioxide 23 (22-30) mmol/L BUN 24 H (7-17) mg/dL Creatinine 0.81 (0.52-1.04) mg/dL Glucose 378 H (74-99) mg/dL Calcium 9.0 (8.4-10.2) mg/dL AST 33 (14-36) U/L ALT 30 (4-34) U/L Alkaline Phosphatase 134 H (38-126) U/L Total Protein 6.8 (6.3-8.2) g/dL Albumin 3.9 (3.5-5.0) g/dL Calcium panel 12/17/24 Range/Units 22:09 Calcium 9.0 (8.4-10.2) mg/dL Albumin 3.9 (3.5-5.0) g/dL Pituitary panel 12/17/24 Range/Units 22:09 Sodium 135 L (137-145) mmol/L Potassium 3.8 (3.5-5.1) mmol/L Chloride 101 (98-107) mmol/L Carbon Dioxide 23 (22-30) mmol/L BUN 24 H (7-17) mg/dL Creatinine 0.81 (0.52-1.04) mg/dL Glucose 378 H (74-99) mg/dL Calcium 9.0 (8.4-10.2) mg/dL Adrenal panel 12/17/24 Range/Units 22:09 Sodium 135 L (137-145) mmol/L Potassium 3.8 (3.5-5.1) mmol/L Chloride 101 (98-107) mmol/L Carbon Dioxide 23 (22-30) mmol/L BUN 24 H (7-17) mg/dL Creatinine 0.81 (0.52-1.04) mg/dL Glucose 378 H (74-99) mg/dL Calcium 9.0 (8.4-10.2) mg/dL Total Bilirubin 0.7 (0.2-1.3) mg/dL AST 33 (14-36) U/L ALT 30 (4-34) U/L Alkaline Phosphatase 134 H (38-126) U/L Total Protein 6.8 (6.3-8.2) g/dL Albumin 3.9 (3.5-5.0) g/dL
[2024-12-18] MEDS: VANCOMYCIN 1,250 MG in SODIUM CHLORIDE 0.9% 250 ML IVPB SCH (16:00)
[2024-12-18 17:03] LABS: Glucose,Whole Blood 178 mg/dL (70-110)
[2024-12-18 20:35] LABS: Glucose,Whole Blood 185 mg/dL (70-110)
--- NOTE | 2024-12-18 22:06 | P.CONS ---
History of Present Illness - Reason for Consult Consult date: 12/18/24 Abdominal wound, possible abscess Requesting physician: Cindy Holley - Chief Complaint Abdominal pain x 1 day - History of Present Illness Patient is a 54-year-old female with a past medical history significant for COPD CVA TIA hypertension hyperlipidemia and this patient has been dealing with a chronic nonhealing wound to the mid abdominal area after abdominal surgery patient recently did have I&D on 11/28/2024 however there were no culture done at that point if she did have some superficial cultures were negative subsequently patient has been discharged home on no antibiotics patient seem to be doing well now presenting to [facility] concerning for worsening abdominal pain that apparently started yesterday patient will describe the pain to be sharp almost 10 out of 10 in severity and has been complaining of increasing drainage from the abdominal wound with the symptoms the patient has been evaluated on presentation to the hospital patient did have low-grade fever of 99.4 F patient was mildly tachycardic with a heart rate of 99 but not hypotensive or hypoxic and no need for supplemental oxygen patient did have a white count of 8.98 creatinine 0.81 lactic acid was 2.1 liver enzymes are normal urine has been negative patient did have a abdominal pelvis CT did show skin thickening mild cholecystic edema and packing material in the wound developing abscess cannot be excluded patient had did have local cultures obtained she was started on vancomycin infectious disease was consulted concerning for possible abscess abdominal wound Review of Systems Positive point and negatives has been mentioned in the HPI, complete review of systems was performed and all other systems are negative Past Medical History Past Medical History: COPD, CVA/TIA, Diabetes Mellitus, Deep Vein Thrombosis (DVT), GERD/Reflux, Hyperlipidemia, Hypertension Additional Past Medical History / Comment(s): CVA 2019- expressive aphasia; 2 DVT's; diverticulitis; hernia History of Any Multi-Drug Resistant Organisms: MRSA Year Discovered:: 09/03/23 MDRO Source:: Groin Past Surgical History: Bowel Resection Additional Past Surgical History / Comment(s): IVC FILTER 2013. ileostomy. wound vac. ileostomy reversal with hernia repair, with ovary removal-Apr 2024. Past Anesthesia/Blood Transfusion Reactions: No Reported Reaction Past Psychological History: Depression, PTSD Smoking Status: Current every day smoker Past Alcohol Use History: None Reported Past Drug Use History: None Reported Medications and Allergies Home Medications Medication Instructions Recorded Confirmed Type Insulin Glargine,Hum.rec.anlog 50 unit SQ DAILY 08/04/21 12/18/24 History [Lantus Solostar Pen] hydroCHLOROthiazide [Hydrodiuril] 12.5 mg PO DAILY 08/04/21 12/18/24 History busPIRone HCL 15 mg PO TID 03/14/23 12/18/24 History traZODone HCL 150 mg PO HS 03/14/23 12/18/24 History Gabapentin 800 mg PO TID 3 Days #9 tab 07/12/23 12/18/24 Rx Atorvastatin [Lipitor] 80 mg PO DAILY 08/07/23 12/18/24 History Apixaban [Eliquis] 5 mg PO BID 05/03/24 12/18/24 History Ezetimibe [Zetia] 10 mg PO DAILY 05/03/24 12/18/24 History Famotidine 40 mg PO DAILY 05/03/24 12/18/24 History Venlafaxine HCl [Effexor XR] 150 mg PO DAILY 05/03/24 12/18/24 History cloNIDine HCL 0.05 mg PO BID 05/03/24 12/18/24 History Ipratropium-Albuterol Nebulize 3 ml INHALATION RT-QID 06/15/24 12/18/24 History [Duoneb 0.5 mg-3 mg/3 ml Soln] Dapagliflozin Propanediol [Farxiga] 10 mg PO DAILY 11/22/24 12/18/24 History HYDROcodone/APAP 10-325MG [[place] 1 tab PO TID 11/22/24 12/18/24 History 10-325] Potassium Chloride ER [K-Dur 20] 20 meq PO DAILY 11/22/24 12/18/24 History Acetaminophen Tab [Tylenol] 650 mg PO Q6HR PRN tab 12/01/24 12/18/24 Rx Nicotine 21Mg/24Hr Patch [Habitrol] 1 patch TRANSDERM DAILY #30 patch 12/01/24 12/18/24 Rx lisinopriL [Zestril] 10 mg PO DAILY #30 tab 12/01/24 12/18/24 Rx Allergies Allergy/AdvReac Type Severity Reaction Status Date / Time ceftriaxone [From Rocephin] Allergy Rash/Hives Verified 12/18/24 10:22 Physical Exam Vitals: Vital Signs Temp Pulse Pulse Resp BP BP Pulse Ox 12/18/24 12:07 91 12/18/24 11:59 83 12/18/24 08:00 82 16 12/18/24 07:47 97.9 F 82 16 139/81 96 12/18/24 04:31 16 12/18/24 03:27 98.3 F 79 20 114/81 95 12/18/24 02:00 84 18 138/84 98 12/18/24 01:00 84 18 127/101 98 12/18/24 00:48 98.6 F 12/18/24 00:00 90 18 141/92 95 12/17/24 23:00 87 18 128/84 98 12/17/24 22:01 99 18 152/106 97 12/17/24 21:38 99.4 F 88 18 180/105 98 Intake and Output 12/17/24 12/18/24 12/18/24 22:59 06:59 14:59 Intake Total 60 Balance 60 Intake: Oral 60 Other: Voiding Method Toilet # Voids 1 Weight 72.575 kg 72.575 kg GENERAL DESCRIPTION: Middle-age female lying in bed, no distress. No tachypnea or accessory muscle of respiration use. HEENT: Shows Pallor , no scleral icterus. Oral mucous membrane is dry. No pharyngeal erythema or thrush NECK: Trachea central, no thyromegaly. LUNGS: Unlabored breathing. Clear to auscultation anteriorly. No wheeze or crackle. HEART: S1, S2, regular rate and rhythm. No loud murmur ABDOMEN: Soft, abdominal wound no significant slough tissue did have minimal swelling but no significant redness it is tender to touch EXTREMITIES: No edema of feet. SKIN: No rash, no masses palpable. NEUROLOGICAL: The patient is awake, alert, oriented x3, mood and affect normal. Results CBC & Chem 7: 12/17/24 21:49 12/17/24 22:09 Labs: Abnormal Lab Results - Last 24 Hours (Table) 12/17/24 12/17/24 12/17/24 Range/Units 22:09 22:09 22:09 PT (10.0-12.5) sec APTT (22.0-30.0) sec Sodium 135 L (137-145) mmol/L BUN 24 H (7-17) mg/dL Glucose 378 H (74-99) mg/dL POC Glucose (mg/dL) (70-110) mg/dL Plasma Lactic Acid Kyrie 2.1 H* (0.7-2.0) mmol/L Alkaline Phosphatase 134 H (38-126) U/L Urine Glucose (UA) 4+ H (Negative) 12/17/24 12/18/24 12/18/24 Range/Units 22:35 00:56 12:08 PT 9.3 L (10.0-12.5) sec APTT 20.7 L (22.0-30.0) sec Sodium (137-145) mmol/L BUN (7-17) mg/dL Glucose (74-99) mg/dL POC Glucose (mg/dL) 309 H 179 H (70-110) mg/dL Plasma Lactic Acid Kyrie (0.7-2.0) mmol/L Alkaline Phosphatase (38-126) U/L Urine Glucose (UA) (Negative) Assessment and Plan (1) Open abdominal wall wound Current Visit: Yes Status: Acute Code(s): S31.109A - UNSP OPN WND ABD WALL, UNSP Q W/O PENET PERIT CAV, INIT SNOMED Code(s): 137166960 Plan: 1patient presented to hospital with intractable abdominal pain in this patient has been dealing with a nonhealing wound to the mid abdominal area from previous surgery did have recent I&D unfortunately no culture were done now with worsening wound has some abnormality seen on the CT with concern for possible cellulitis clinically not behaving as an abscess in this patient with no fever or elevated white count no significant redness 2-local culture has been obtained patient started empirically on vancomycin to continue while waiting for the culture to finalize 3-wound VAC has been ordered with local wound care and will see clinical response We will follow on clinical condition and cultures to further adjust medication if needed Thank you for this consultation we will follow the patient along with you Dictation was produced using [employer]. dictation software. please excuse any gram matical, word or spelling errors. Time with Patient: Greater than 30
[2024-12-19 06:10] LABS: HCT 37.4 % (37.2-46.3); HGB 12.7 g/dL (12.0-15.0); MCH 30.4 pg (27.0-32.0); MCV 89.5 fL (80.0-97.0); Mean Platelet Volume 10.2 fL (9.5-12.2); Platelet Count 175 10*3/uL (140-440); RBC 4.18 10*6/uL (4.10-5.20); RDW 13.2 % (11.5-14.5); WBC 5.42 10*3/uL (4.50-10.00)
[2024-12-19 06:26] LABS: African American GFR (CKD) >90 (>60 ml/min/1.73 sqM); Anion Gap 10 mmol/L; Blood Urea Nitrogen 16 mg/dL (7-17); Calcium 9.5 mg/dL (8.4-10.2); Carbon Dioxide 23 mmol/L (22-30); Chloride 105 mmol/L (98-107); Glucose 158 mg/dL (74-99); Non-African American GFR(CKD) >90 (>60 ml/min/1.73 sqM); Potassium 3.3 mmol/L (3.5-5.1); Sodium 138 mmol/L (137-145)
[2024-12-19 07:13] LABS: Glucose,Whole Blood 177 mg/dL (70-110)
[2024-12-19 12:13] LABS: Glucose,Whole Blood 124 mg/dL (70-110)
--- NOTE | 2024-12-19 13:57 | P.PN ---
Subjective Progress Note Date: 12/19/24 SURGICAL PROGRESS NOTE CHIEF COMPLAINT: Abdominal pain HISTORY OF PRESENT ILLNESS: Patient continues to complain of abdominal pain. Infectious diseases awaiting for culture results from drainage from her wound before patient to be discharged. She is tolerating diet. Afebrile. WBC 5.42 PHYSICAL EXAM: VITAL SIGNS: Reviewed. GENERAL: Well-developed in no acute distress. ABDOMEN: Soft. Nondistended. Midline incision with wound with granulation tissue. No erythema. Drainage serosanguineous in color. Area that was swollen to the left of the incision has decreased in size. NEUROLOGIC: Alert and oriented. Cranial nerves II through XII grossly intact. ASSESSMENT: 1. Abdominal pain after vacuuming. Likely musculoskeletal. CT scan results reviewed with Dr. Lewis. There is no evidence of abdominal abscess. Patient is afebrile. White count is normal. 2. Abdominal wound that is healing. No evidence of acute infection. 3. Chronic abdominal pain PLAN: - Patient can be discharged from surgical standpoint when outpatient wound VAC is arranged and is medically cleared for discharge - control manager arranging wound VAC for outpatient - Wound VAC to be placed today since she is remaining inpatient - Antibiotics per ID service - Patient to follow-up with wound care center at discharge Physician Personalized Living Manager note has been reviewed by physician. Signing provider agrees with the documented findings, assessment, and plan of care. Objective - Vital Signs Vital signs: Vital Signs Temp 97.6 F 12/19/24 13:23 Pulse 74 12/19/24 13:23 Resp 16 12/19/24 13:23 BP 119/79 12/19/24 13:23 Pulse Ox 95 12/19/24 13:23 FiO2 Intake & Output 12/18/24 12/19/24 12/19/24 18:59 06:59 18:59 Intake Total 474 Balance 474 Intake: Oral 474 Other: Voiding Method Toilet Toilet Toilet # Voids 1 - Labs CBC & Chem 7: 12/19/24 05:31 12/19/24 05:31 Labs: Abnormal Lab Results - Last 24 Hours (Table) 12/18/24 12/18/24 12/19/24 Range/Units 17:00 20:34 05:31 Potassium 3.3 L (3.5-5.1) mmol/L Glucose 158 H (74-99) mg/dL POC Glucose (mg/dL) 178 H 185 H (70-110) mg/dL 12/19/24 12/19/24 Range/Units 07:11 12:09 Potassium (3.5-5.1) mmol/L Glucose (74-99) mg/dL POC Glucose (mg/dL) 177 H 124 H (70-110) mg/dL
--- NOTE | 2024-12-19 15:43 | P.PN ---
Subjective Progress Note Date: 12/19/24 Principal diagnosis: Reason for follow-up is abdominal wound and a question of abscess Patient is a 54-year-old female with a past medical history significant for COPD CVA TIA hypertension hyperlipidemia and this patient has been dealing with a chronic nonhealing wound to the mid abdominal area after abdominal surgery patient recently did have I&D on 11/28/2024 now presenting with worsening abdominal pain CT was suspicious for possible abscess. On today's evaluation that is 12/19/2024, the patient continues to be afebrile, the patient is on room air and breathing comfortably, the Pt denies having any chest pain or cough, the patient denies having any nausea vomiting circumventing of abdominal pain. Controlled with the pain medication. Patient white count is 5.42, creatinine 0.58 cultures are pending Objective - Vital Signs Vital signs: Vital Signs Temp 97.7 F 12/19/24 07:29 Pulse 80 12/19/24 11:53 Resp 16 12/19/24 07:29 BP 137/83 12/19/24 07:29 Pulse Ox 93 L 12/19/24 07:29 FiO2 Intake & Output 12/18/24 12/19/24 12/19/24 18:59 06:59 18:59 Intake Total 474 Balance 474 Intake: Oral 474 Other: Voiding Method Toilet Toilet Toilet # Voids 1 - Exam GENERAL DESCRIPTION: Middle-age female lying in bed in no distress RESPIRATORY SYSTEM: Unlabored breathing , decreased breath sounds at bases HEART: S1 S2 regular rate and rhythm , ABDOMEN: Soft , abdominal wound is currently dressed EXTREMITIES: No edema feet - Labs CBC & Chem 7: 12/19/24 05:31 12/19/24 05:31 Labs: Abnormal Lab Results - Last 24 Hours (Table) 12/18/24 12/18/24 12/19/24 Range/Units 17:00 20:34 05:31 Potassium 3.3 L (3.5-5.1) mmol/L Glucose 158 H (74-99) mg/dL POC Glucose (mg/dL) 178 H 185 H (70-110) mg/dL 12/19/24 12/19/24 Range/Units 07:11 12:09 Potassium (3.5-5.1) mmol/L Glucose (74-99) mg/dL POC Glucose (mg/dL) 177 H 124 H (70-110) mg/dL Assessment and Plan (1) Open abdominal wall wound Current Visit: Yes Status: Acute Code(s): S31.109A - UNSP OPN WND ABD WALL, UNSP Q W/O PENET PERIT CAV, INIT SNOMED Code(s): 254252963 Plan: 1patient presented to hospital with intractable abdominal pain in this patient has been dealing with a nonhealing wound to the mid abdominal area from previous surgery did have recent I&D unfortunately no culture were done now with worsening wound has some abnormality seen on the CT with concern for possible cellulitis clinically not behaving as an abscess in this patient with no fever or elevated white count no significant redness 2-local culture has been obtained which are currently pending nursing staff to apply the wound VAC to make sure the patient is tolerating it continue with the vancomycin while waiting for the culture to finalize Dictation was produced using [employer] dictation software. please excuse any grammatical, word or spelling errors. Time with Patient: Less than 30
[2024-12-19 17:11] LABS: Glucose,Whole Blood 130 mg/dL (70-110)
[2024-12-19] MEDS ORDERED: Potassium Replacement Protocol 1 EACH MISC MISCELLANE PRN (17:21)
[2024-12-19] MEDS: POTASSIUM CHLORIDE ER 20 MEQ TAB.ER PO SCH (18:47)
[2024-12-19 20:39] LABS: Glucose,Whole Blood 210 mg/dL (70-110)
[2024-12-20] MEDS: VANCOMYCIN TROUGH DUE 1 EACH MISC MISCELLANE ONE (03:49)
[2024-12-20 07:24] LABS: Glucose,Whole Blood 162 mg/dL (70-110)
[2024-12-20 10:46] LABS: Basophils # (A) 0.04 X 10*3/uL (0.00-0.10); Basophils % (A) 0.8 %; Eosinophils # (A) 0.25 X 10*3/uL (0.04-0.35); HCT 38.3 % (37.2-46.3); HGB 12.1 g/dL (12.0-15.0); Lymphocytes # (A) 0.89 X 10*3/uL (0.90-5.00); Lymphocytes % (A) 17.8 %; MCH 29.9 pg (27.0-32.0); MCHC 31.6 g/dL (32.0-37.0); MCV 94.6 FL (80.0-97.0); Mean Platelet Volume 11.1 FL (9.5-12.2); Monocytes # (A) 0.45 X 10*3/uL (0.20-1.00); NRBC Per 100 WBC 0 X 10*3/uL (0.00-0.01); Neutrophils # (A) 3.34 X 10*3/uL (1.80-7.70); Platelet Count 181 X 10*3/uL (140-440); RBC 4.05 X 10*6/uL (4.10-5.20); RBC Morphology Normal (Normal); RDW 13.4 % (11.5-14.5); WBC 4.99 X 10*3/uL (4.50-10.00)
[2024-12-20 11:16] LABS: BUN/Creat Ratio 26.57 Ratio (12.00-20.00); Blood Urea Nitrogen 18.6 mg/dL (9.0-27.0); Calcium 8.6 mg/dL (8.7-10.3); Carbon Dioxide 16.5 mmol/L (21.6-31.8); Chloride 111 mmol/L (96-109); Glucose 206 mg/dL (70-110); Potassium 3.9 mmol/L (3.5-5.5); Sodium 143 mmol/L (135-145)
[2024-12-20 12:25] LABS: Glucose,Whole Blood 126 mg/dL (70-110)
[2024-12-20] MEDS: AMPICILLIN-SULBACTAM 3 GM in SODIUM CHLORIDE 0.9% 100 ML IVPB SCH (13:49)
--- NOTE | 2024-12-20 14:15 | P.PN ---
Subjective Progress Note Date: 12/20/24 Principal diagnosis: Reason for follow-up is abdominal wound and a question of abscess Patient is a 54-year-old female with a past medical history significant for COPD CVA TIA hypertension hyperlipidemia and this patient has been dealing with a chronic nonhealing wound to the mid abdominal area after abdominal surgery patient recently did have I&D on 11/28/2024 now presenting with worsening abdominal pain CT was suspicious for possible abscess. On today's evaluation that is 12/20/2024, Patient is afebrile patient is currently on room air and denies having any shortness of breath, the patient denies any chest pain or cough, the patient denies any nausea vomiting still complaining of abdominal pain though controlled with the pain medication no problem with the wound VAC. Patient white count is 4.99, creatinine 0.7 culture growing Staph aureus and Proteus Mirabelis Objective - Vital Signs Vital signs: Vital Signs Temp 97.5 F L 12/20/24 07:10 Pulse 74 12/20/24 07:10 Resp 15 12/20/24 07:10 BP 150/95 12/20/24 07:10 Pulse Ox 93 L 12/20/24 07:10 FiO2 Intake & Output 12/19/24 12/20/24 12/20/24 18:59 06:59 18:59 Intake Total 540 480 Balance 540 480 Intake: Oral 540 480 Other: Voiding Method Toilet Toilet Toilet - Exam GENERAL DESCRIPTION: Middle-age female lying in bed in no distress RESPIRATORY SYSTEM: Unlabored breathing , decreased breath sounds at bases HEART: S1 S2 regular rate and rhythm , ABDOMEN: Soft , abdominal wound is currently covered with a wound VAC EXTREMITIES: No edema feet - Labs CBC & Chem 7: 12/20/24 02:57 12/20/24 02:57 Labs: Abnormal Lab Results - Last 24 Hours (Table) 12/19/24 12/19/24 12/20/24 Range/Units 17:09 20:38 02:57 RBC 4.05 L (4.10-5.20) X 10*6/uL MCHC 31.6 L (32.0-37.0) g/dL Lymphocytes # 0.89 L (0.90-5.00) X 10*3/uL Chloride (96-109) mmol/L Carbon Dioxide (21.6-31.8) mmol/L Anion Gap (4.00-12.00) mmol/L BUN/Creatinine Ratio (12.00-20.00) Ratio Glucose (70-110) mg/dL POC Glucose (mg/dL) 130 H 210 H (70-110) mg/dL Calcium (8.7-10.3) mg/dL 12/20/24 12/20/24 Range/Units 02:57 07:14 RBC (4.10-5.20) X 10*6/uL MCHC (32.0-37.0) g/dL Lymphocytes # (0.90-5.00) X 10*3/uL Chloride 111 H (96-109) mmol/L Carbon Dioxide 16.5 L (21.6-31.8) mmol/L Anion Gap 15.50 H (4.00-12.00) mmol/L BUN/Creatinine Ratio 26.57 H (12.00-20.00) Ratio Glucose 206 H (70-110) mg/dL POC Glucose (mg/dL) 162 H (70-110) mg/dL Calcium 8.6 L (8.7-10.3) mg/dL Microbiology - Last 24 Hours (Table) 12/18/24 15:15 Gram Stain - Preliminary Abdomen Wound Culture - Preliminary Presumptive Staph aureus Proteus mirabilis Assessment and Plan (1) Open abdominal wall wound Current Visit: Yes Status: Acute Code(s): S31.109A - UNSP OPN WND ABD WALL, UNSP Q W/O PENET PERIT CAV, INIT SNOMED Code(s): 128554785 Plan: 1patient presented to hospital with intractable abdominal pain in this patient has been dealing with a nonhealing wound to the mid abdominal area from previous surgery did have recent I&D unfortunately no culture were done now with worsening wound has some abnormality seen on the CT with concern for possible cellulitis clinically not behaving as an abscess in this patient with no fever or elevated white count no significant redness 2-local culture currently growing Staph aureus and Proteus patient is covered with vancomycin we will add Unasyn to cover for the Proteus while waiting for sensitivity to finalize Dictation was produced using [employer] dictation software. please excuse any grammatical, word or spelling errors. Time with Patient: Less than 30
--- NOTE | 2024-12-20 17:10 | P.PN ---
Subjective Progress Note Date: 12/20/24 Patient remained stable. Her abdominal pain is improved. Patient states that her abdominal pain is most likely due to her straining while cleaning her house. Her wound appears healthy. The wound apparently has been cultured and may be colonized with some staph. Clinically there is no sign of a wound infection. On exam vital signs appear stable. Abdomen is soft. Patient will have wound VAC placed. She will continue receive supportive care. Objective - Vital Signs Vital signs: Vital Signs Temp 97.7 F 12/20/24 12:20 Pulse 72 12/20/24 12:20 Resp 16 12/20/24 12:20 BP 147/95 12/20/24 12:20 Pulse Ox 94 L 12/20/24 12:20 FiO2 Intake & Output 12/19/24 12/20/24 12/20/24 18:59 06:59 18:59 Intake Total 540 480 Balance 540 480 Intake: Oral 540 480 Other: Voiding Method Toilet Toilet Toilet - Labs CBC & Chem 7: 12/20/24 02:57 12/20/24 02:57 Labs: Abnormal Lab Results - Last 24 Hours (Table) 12/19/24 12/19/24 12/20/24 Range/Units 17:09 20:38 02:57 RBC 4.05 L (4.10-5.20) X 10*6/uL MCHC 31.6 L (32.0-37.0) g/dL Lymphocytes # 0.89 L (0.90-5.00) X 10*3/uL Chloride (96-109) mmol/L Carbon Dioxide (21.6-31.8) mmol/L Anion Gap (4.00-12.00) mmol/L BUN/Creatinine Ratio (12.00-20.00) Ratio Glucose (70-110) mg/dL POC Glucose (mg/dL) 130 H 210 H (70-110) mg/dL Calcium (8.7-10.3) mg/dL 12/20/24 12/20/24 12/20/24 Range/Units 02:57 07:14 12:22 RBC (4.10-5.20) X 10*6/uL MCHC (32.0-37.0) g/dL Lymphocytes # (0.90-5.00) X 10*3/uL Chloride 111 H (96-109) mmol/L Carbon Dioxide 16.5 L (21.6-31.8) mmol/L Anion Gap 15.50 H (4.00-12.00) mmol/L BUN/Creatinine Ratio 26.57 H (12.00-20.00) Ratio Glucose 206 H (70-110) mg/dL POC Glucose (mg/dL) 162 H 126 H (70-110) mg/dL Calcium 8.6 L (8.7-10.3) mg/dL Microbiology - Last 24 Hours (Table) 12/18/24 15:15 Gram Stain - Preliminary Abdomen Wound Culture - Preliminary Presumptive Staph aureus Proteus mirabilis
[2024-12-20 17:16] LABS: Glucose,Whole Blood 115 mg/dL (70-110)
[2024-12-20 20:14] LABS: Glucose,Whole Blood 133 mg/dL (70-110)
[2024-12-20] MEDS: HYDROmorphone 2 MG/ML 1 ML SYRINGE IVP PRN (23:47)
[2024-12-21 07:12] LABS: Glucose,Whole Blood 129 mg/dL (70-110)
--- NOTE | 2024-12-21 10:40 | P.PN ---
Subjective Progress Note Date: 12/21/24 The patient remained stable. She is resting comfortably in the bed. She has no significant complaints of pain today. On exam abdomen is soft nontender abdominal wound site is clean. Patient will continue local wound care. Objective - Vital Signs Vital signs: Vital Signs Temp 97.4 F L 12/21/24 06:58 Pulse 56 L 12/21/24 06:58 Resp 14 12/21/24 06:58 BP 148/90 12/21/24 06:58 Pulse Ox 95 12/21/24 06:58 FiO2 Intake & Output 12/20/24 12/21/24 12/21/24 18:59 06:59 18:59 Intake Total 1720 540 Balance 1720 540 Intake: Intake, IV Titration 700 Amount Ampicillin-Sulbactam 3 gm 200 In Sodium Chloride 0.9% 100 ml @ 200 mls/hr IVPB Q6HR [facility] Rx#:[id number] Vancomycin 1,250 mg In 500 Sodium Chloride 0.9% 250 ml @ 125 mls/hr IVPB Q12H [facility] Rx#:[id number] Oral 1020 540 Other: Voiding Method Toilet Toilet Toilet - Labs CBC & Chem 7: 12/20/24 02:57 12/20/24 02:57 Labs: Abnormal Lab Results - Last 24 Hours (Table) 12/19/24 12/20/24 12/20/24 Range/Units 05:31 02:57 02:57 RBC 4.05 L (4.10-5.20) X 10*6/uL MCHC 31.6 L (32.0-37.0) g/dL Lymphocytes # 0.89 L (0.90-5.00) X 10*3/uL Chloride 111 H (96-109) mmol/L Carbon Dioxide 16.5 L (21.6-31.8) mmol/L Anion Gap 15.50 H (4.00-12.00) mmol/L BUN/Creatinine Ratio 26.57 H (12.00-20.00) Ratio Glucose 206 H (70-110) mg/dL POC Glucose (mg/dL) (70-110) mg/dL Hemoglobin A1c 8.9 H (<=6.0) % Calcium 8.6 L (8.7-10.3) mg/dL 12/20/24 12/20/2412/20/25 Range/Units 12:22 17:11 20:12 RBC (4.10-5.20) X 10*6/uL MCHC (32.0-37.0) g/dL Lymphocytes # (0.90-5.00) X 10*3/uL Chloride (96-109) mmol/L Carbon Dioxide (21.6-31.8) mmol/L Anion Gap (4.00-12.00) mmol/L BUN/Creatinine Ratio (12.00-20.00) Ratio Glucose (70-110) mg/dL POC Glucose (mg/dL) 126 H 115 H 133 H (70-110) mg/dL Hemoglobin A1c (<=6.0) % Calcium (8.7-10.3) mg/dL 12/21/24 Range/Units 07:01 RBC (4.10-5.20) X 10*6/uL MCHC (32.0-37.0) g/dL Lymphocytes # (0.90-5.00) X 10*3/uL Chloride (96-109) mmol/L Carbon Dioxide (21.6-31.8) mmol/L Anion Gap (4.00-12.00) mmol/L BUN/Creatinine Ratio (12.00-20.00) Ratio Glucose (70-110) mg/dL POC Glucose (mg/dL) 129 H (70-110) mg/dL Hemoglobin A1c (<=6.0) % Calcium (8.7-10.3) mg/dL Microbiology - Last 24 Hours (Table) 12/18/24 15:15 Gram Stain - Preliminary Abdomen Wound Culture - Preliminary Presumptive Staph aureus Proteus mirabilis Pseudomonas aeruginosa 12/18/24 15:15 Anaerobic Culture - Preliminary Abdomen
[2024-12-21 11:59] LABS: Basophils # (A) 0.04 10*3/uL (0.00-0.10); Basophils % (A) 0.7 %; Eosinophils # (A) 0.27 10*3/uL (0.04-0.35); Eosinophils % (A) 4.4 %; HCT 36.9 % (37.2-46.3); HGB 12.5 g/dL (12.0-15.0); Lymphocytes # (A) 0.94 10*3/uL (0.90-5.00); Lymphocytes % (A) 15.5 %; MCH 30.9 pg (27.0-32.0); MCHC 33.9 g/dL (32.0-37.0); MCV 91.3 fL (80.0-97.0); Mean Platelet Volume 9.9 fL (9.5-12.2); Monocytes # (A) 0.37 10*3/uL (0.20-1.00); Monocytes % (A) 6.1 %; Neutrophils # (A) 4.43 10*3/uL (1.80-7.70); Platelet Count 191 10*3/uL (140-440); RBC 4.04 10*6/uL (4.10-5.20); RDW 13.2 % (11.5-14.5); WBC 6.07 10*3/uL (4.50-10.00)
[2024-12-21 12:13] LABS: African American GFR (CKD) >90 (>60 ml/min/1.73 sqM); Anion Gap 7 mmol/L; Blood Urea Nitrogen 12 mg/dL (7-17); Calcium 8.9 mg/dL (8.4-10.2); Carbon Dioxide 21 mmol/L (22-30); Chloride 111 mmol/L (98-107); Glucose 144 mg/dL (74-99); Non-African American GFR(CKD) >90 (>60 ml/min/1.73 sqM); Potassium 3.6 mmol/L (3.5-5.1); Sodium 139 mmol/L (137-145)
[2024-12-21 12:13] LABS: Glucose,Whole Blood 132 mg/dL (70-110)
--- NOTE | 2024-12-21 14:32 | P.PN ---
Subjective Progress Note Date: 12/21/24 Principal diagnosis: Reason for follow-up is abdominal wound and a question of abscess Patient is a 54-year-old female with a past medical history significant for COPD CVA TIA hypertension hyperlipidemia and this patient has been dealing with a chronic nonhealing wound to the mid abdominal area after abdominal surgery patient recently did have I&D on 11/28/2024 now presenting with worsening abdominal pain CT was suspicious for possible abscess. On today's evaluation that is 12/21/2024, patient has been afebrile, patient is breathing comfortably and is currently on room air, patient denies having any chest pain and cough, patient denies nausea vomiting still complaining of abdominal pain but controlled with the pain medication. The patient white count 6.07, creatinine 0.60 culture not growing Staph aureus sensitivity pending Pseudomonas sensitivities pending and Proteus which is a sensitive pathogen Objective - Vital Signs Vital signs: Vital Signs Temp 97.7 F 12/21/24 11:33 Pulse 67 12/21/24 11:33 Resp 14 12/21/24 11:33 BP 131/87 12/21/24 11:33 Pulse Ox 96 12/21/24 11:33 FiO2 Intake & Output 12/20/24 12/21/24 12/21/24 18:59 06:59 18:59 Intake Total 1720 540 Balance 1720 540 Intake: Intake, IV Titration 700 Amount Ampicillin-Sulbactam 3 gm 200 In Sodium Chloride 0.9% 100 ml @ 200 mls/hr IVPB Q6HR [facility] Rx#:[id number] Vancomycin 1,250 mg In 500 Sodium Chloride 0.9% 250 ml @ 125 mls/hr IVPB Q12H [facility] Rx#:[id number] Oral 1020 540 Other: Voiding Method Toilet Toilet Toilet - Exam GENERAL DESCRIPTION: Middle-age female lying in bed in no distress RESPIRATORY SYSTEM: Unlabored breathing , decreased breath sounds at bases HEART: S1 S2 regular rate and rhythm , ABDOMEN: Soft , abdominal wound is currently covered with a wound VAC EXTREMITIES: No edema feet - Labs CBC & Chem 7: 12/21/24 11:42 12/21/24 11:42 Labs: Abnormal Lab Results - Last 24 Hours (Table) 12/19/24 12/20/24 12/20/24 Range/Units 05:31 17:11 20:12 RBC (4.10-5.20) 10*6/uL Hct (37.2-46.3) % Chloride (98-107) mmol/L Carbon Dioxide (22-30) mmol/L Glucose (74-99) mg/dL POC Glucose (mg/dL) 115 H 133 H (70-110) mg/dL Hemoglobin A1c 8.9 H (<=6.0) % 12/21/24 12/21/24 12/21/24 Range/Units 07:01 11:42 11:42 RBC 4.04 L (4.10-5.20) 10*6/uL Hct 36.9 L (37.2-46.3) % Chloride 111 H (98-107) mmol/L Carbon Dioxide 21 L (22-30) mmol/L Glucose 144 H (74-99) mg/dL POC Glucose (mg/dL) 129 H (70-110) mg/dL Hemoglobin A1c (<=6.0) % 12/21/24 Range/Units 12:09 RBC (4.10-5.20) 10*6/uL Hct (37.2-46.3) % Chloride (98-107) mmol/L Carbon Dioxide (22-30) mmol/L Glucose (74-99) mg/dL POC Glucose (mg/dL) 132 H (70-110) mg/dL Hemoglobin A1c (<=6.0) % Microbiology - Last 24 Hours (Table) 12/18/24 15:15 Gram Stain - Preliminary Abdomen Wound Culture - Preliminary Presumptive Staph aureus Proteus mirabilis Pseudomonas aeruginosa 12/18/24 15:15 Anaerobic Culture - Preliminary Abdomen Assessment and Plan (1) Open abdominal wall wound Current Visit: Yes Status: Acute Code(s): S31.109A - UNSP OPN WND ABD WALL, UNSP Q W/O PENET PERIT CAV, INIT SNOMED Code(s): 066436693 Plan: 1patient presented to hospital with intractable abdominal pain in this patient has been dealing with a nonhealing wound to the mid abdominal area from previous surgery did have recent I&D unfortunately no culture were done now with worsening wound has some abnormality seen on the CT with concern for possible cellulitis clinically not behaving as an abscess in this patient with no fever or elevated white count no significant redness 2-local culture currently growing Staph aureus, Proteus along with Pseudomonas with sensitivities pending patient is covered with vancomycin we will switch Unasyn to cefepime to cover for both Proteus and Pseudomonas patient did have ceftriaxone allergy on the chart however she has tolerated cefepime without any problem as per discussion with the pharmacist Dictation was produced using [employer] dictation software. please excuse any grammatical, word or spelling errors. Time with Patient: Less than 30
[2024-12-21] MEDS ORDERED: CEFEPIME 2 GM in SODIUM CHLORIDE 0.9% 100 ML IVPB SCH (16:00)
[2024-12-21 17:09] LABS: Glucose,Whole Blood 129 mg/dL (70-110)
[2024-12-21 20:22] LABS: Glucose,Whole Blood 240 mg/dL (70-110)
--- NOTE | 2024-12-21 21:26 | P.PN ---
Subjective Progress Note Date: 12/19/24 54-year-old female had a abdominal surgery and an ostomy 2 weeks ago came in with abdominal pain around the surgical site. The surgical site area appears to be clean except with a small fluctuant mass slightly next to the ostomy. Although patient does not have any tenderness in that area patient does have slight tenderness around the surgical site area. Patient nausea vomiting does not have any fever there is no leukocytosis. Objective - Vital Signs Vital signs: Vital Signs Temp 97.7 F 12/19/24 07:29 Pulse 80 12/19/24 11:53 Resp 16 12/19/24 07:29 BP 137/83 12/19/24 07:29 Pulse Ox 93 L 12/19/24 07:29 FiO2 Intake & Output 12/18/24 12/19/24 12/19/24 18:59 06:59 18:59 Intake Total 474 Balance 474 Intake: Oral 474 Other: Voiding Method Toilet Toilet Toilet # Voids 1 - Exam GENERAL: The patient is alert and oriented x3, not in any acute distress. Well developed, well nourished. HEENT: Pupils are round and equally reacting to light. EOMI. No scleral icterus. No conjunctival pallor. Normocephalic, atraumatic. No pharyngeal erythema. No thyromegaly. CARDIOVASCULAR: S1 and S2 present. No murmurs, rubs, or gallops. PULMONARY: Chest is clear to auscultation, no wheezing or crackles. ABDOMEN: Soft, mild tenderness around the surgical site area and a small fluctuant mass few centimeters next to the ostomy, nondistended, normoactive bowel sounds. No palpable organomegaly. MUSCULOSKELETAL: No joint swelling or deformity. EXTREMITIES: No cyanosis, clubbing, or pedal edema. NEUROLOGICAL: Gross neurological examination did not reveal any focal deficits. SKIN: No rashes. - Labs CBC & Chem 7: 12/21/24 11:42 12/21/24 11:42 Labs: Abnormal Lab Results - Last 24 Hours (Table) 12/18/24 12/18/24 12/19/24 Range/Units 17:00 20:34 05:31 Potassium 3.3 L (3.5-5.1) mmol/L Glucose 158 H (74-99) mg/dL POC Glucose (mg/dL) 178 H 185 H (70-110) mg/dL 12/19/24 12/19/24 Range/Units 07:11 12:09 Potassium (3.5-5.1) mmol/L Glucose (74-99) mg/dL POC Glucose (mg/dL) 177 H 124 H (70-110) mg/dL Assessment and Plan Assessment: -Abdominal pain: Patient had an ostomy recently 2 weeks ago patient has pain in that area etiology is not clear CT of the abdomen did not show any obvious abscess. General surgery will evaluate the patient patient is presently on broad-spectrum antibiotics although surgical site area does not appear to be inf ected at this time patient is presently on cefepime and vancomycin. Infectious disease will evaluate the patient. - COPD without any acute exacerbation - Type II levels noticed patient will be resumed on home regimen along with sliding scale insulin depending on the insulin requirements patient is insulin will be adjusted - Gastroesophageal reflux disease - Hyperlipidemia - Hypertension patient is on multiple anticoagulant medications patient with history on the lower side yesterday hydrochlorothiazide and clonidine was discontinued at this time - History of DVT for which patient is on Eliquis which was was resumed DVT prophylaxis: On Eliquis
--- NOTE | 2024-12-21 21:28 | P.PN ---
Subjective Progress Note Date: 12/20/24 54-year-old female had a abdominal surgery and an ostomy 2 weeks ago came in with abdominal pain around the surgical site. The surgical site area appears to be clean except with a small fluctuant mass slightly next to the ostomy. Although patient does not have any tenderness in that area patient does have slight tenderness around the surgical site area. Patient nausea vomiting does not have any fever there is no leukocytosis. 12/20/2024 Patient is seen and evaluated in room at bedside; reports fair pain control; wants home pain medication regimen to be changed since it is an effective patient presented to hospital with intractable abdominal pain in this patient has been dealing with a nonhealing wound to the mid abdominal area from previous surgery did have recent I&D unfortunately no culture were done now with worsening wound has some abnormality seen on the CT with concern for possible c ellulitis clinically not behaving as an abscess in this patient with no fever or elevated white count no significant redness -local culture has been obtained which are currently pending nursing staff to apply the wound VAC to make sure the patient is tolerating it continue with the vancomycin while waiting for the culture to finalize - We will continue with current antibiotics and current pain management at this time Objective - Vital Signs Vital signs: Vital Signs Temp 97.5 F L 12/20/24 07:10 Pulse 74 12/20/24 07:10 Resp 15 12/20/24 07:10 BP 150/95 12/20/24 07:10 Pulse Ox 93 L 12/20/24 07:10 FiO2 Intake & Output 12/19/24 12/20/24 12/20/24 18:59 06:59 18:59 Intake Total 540 480 Balance 540 480 Intake: Oral 540 480 Other: Voiding Method Toilet Toilet - Exam GENERAL: The patient is alert and oriented x3, not in any acute distress. Well developed, well nourished. HEENT: Pupils are round and equally reacting to light. EOMI. No scleral icterus. No conjunctival pallor. Normocephalic, atraumatic. No pharyngeal erythema. No thyromegaly. CARDIOVASCULAR: S1 and S2 present. No murmurs, rubs, or gallops. PULMONARY: Chest is clear to auscultation, no wheezing or crackles. ABDOMEN: Soft, mild tenderness around the surgical site area and a small fluctuant mass few centimeters next to the ostomy, nondistended, normoactive bowel sounds. No palpable organomegaly. MUSCULOSKELETAL: No joint swelling or deformity. EXTREMITIES: No cyanosis, clubbing, or pedal edema. NEUROLOGICAL: Gross neurological examination did not reveal any focal deficits. SKIN: No rashes. - Labs CBC & Chem 7: 12/21/24 11:42 12/21/24 11:42 Labs: Abnormal Lab Results - Last 24 Hours (Table) 12/19/24 12/19/24 12/19/24 Range/Units 12:09 17:09 20:38 RBC (4.10-5.20) X 10*6/uL MCHC (32.0-37.0) g/dL Lymphocytes # (0.90-5.00) X 10*3/uL Chloride (96-109) mmol/L Carbon Dioxide (21.6-31.8) mmol/L Anion Gap (4.00-12.00) mmol/L BUN/Creatinine Ratio (12.00-20.00) Ratio Glucose (70-110) mg/dL POC Glucose (mg/dL) 124 H 130 H 210 H (70-110) mg/dL Calcium (8.7-10.3) mg/dL 12/20/24 12/20/24 12/20/24 Range/Units 02:57 02:57 07:14 RBC 4.05 L (4.10-5.20) X 10*6/uL MCHC 31.6 L (32.0-37.0) g/dL Lymphocytes # 0.89 L (0.90-5.00) X 10*3/uL Chloride 111 H (96-109) mmol/L Carbon Dioxide 16.5 L (21.6-31.8) mmol/L Anion Gap 15.50 H (4.00-12.00) mmol/L BUN/Creatinine Ratio 26.57 H (12.00-20.00) Ratio Glucose 206 H (70-110) mg/dL POC Glucose (mg/dL) 162 H (70-110) mg/dL Calcium 8.6 L (8.7-10.3) mg/dL Microbiology - Last 24 Hours (Table) 12/18/24 15:15 Gram Stain - Preliminary Abdomen Wound Culture - Preliminary Presumptive Staph aureus Proteus mirabilis Assessment and Plan Assessment: -Abdominal pain: Patient had an ostomy recently 2 weeks ago patient has pain in that area etiology is not clear CT of the abdomen did not show any obvious abscess. General surgery will evaluate the patient patient is presently on broad-spectrum antibiotics although surgical site area does not appear to be infected at this time patient is presently on cefepime and vancomycin. Infectious disease will evaluate the patient. - COPD without any acute exacerbation - Type II levels noticed patient will be resumed on home regimen along with sliding scale insulin depending on the insulin requirements patient is insulin will be adjusted - Gastroesophageal reflux disease - Hyperlipidemia - Hypertension patient is on multiple anticoagulant medications patient with history on the lower side yesterday hydrochlorothiazide and clonidine was discontinued at this time - History of DVT for which patient is on Eliquis which was was resumed DVT prophylaxis: On Eliquis
--- NOTE | 2024-12-21 21:29 | P.PN ---
Subjective Progress Note Date: 12/21/24 54-year-old female had a abdominal surgery and an ostomy 2 weeks ago came in with abdominal pain around the surgical site. The surgical site area appears to be clean except with a small fluctuant mass slightly next to the ostomy. Although patient does not have any tenderness in that area patient does have slight tenderness around the surgical site area. Patient nausea vomiting does not have any fever there is no leukocytosis. 12/20/2024 Patient is seen and evaluated in room at bedside; reports fair pain control; wants home pain medication regimen to be changed since it is an effective patient presented to hospital with intractable abdominal pain in this patient has been dealing with a nonhealing wound to the mid abdominal area from previous surgery did have recent I&D unfortunately no culture were done now with worsening wound has some abnormality seen on the CT with concern for possible c ellulitis clinically not behaving as an abscess in this patient with no fever or elevated white count no significant redness -local culture has been obtained which are currently pending nursing staff to apply the wound VAC to make sure the patient is tolerating it continue with the vancomycin while waiting for the culture to finalize - We will continue with current antibiotics and current pain management at this time 12/21/2024 Patient is seen and evaluated sitting up in bed; denies any specific complaint; wound VAC in place Vital signs are reviewed and stable Blood work reveals WBC 6.07, hemoglobin 12.5 and platelet count of 121, sodium 139, potassium 3.6, BUN/creatinine 12/0.6 patient presented to hospital with intractable abdominal pain in this patient has been dealing with a nonhealing wound to the mid abdominal area from previous surgery did have recent I&D unfortunately no culture were done now with worsening wound has some abnormality seen on the CT with concern for possible ce llulitis clinically not behaving as an abscess in this patient with no fever or elevated white count no significant redness -local culture currently growing Staph aureus, Proteus along with Pseudomonas with sensitivities pending patient is covered with vancomycin we will switch Unasyn to cefepime to cover for both Proteus and Pseudomonas patient did have ceftriaxone allergy on the chart however she has tolerated cefepime without any problem Objective - Vital Signs Vital signs: Vital Signs Temp 97.4 F L 12/21/24 06:58 Pulse 56 L 12/21/24 06:58 Resp 14 12/21/24 06:58 BP 148/90 12/21/24 06:58 Pulse Ox 95 12/21/24 06:58 FiO2 Intake & Output 12/20/24 12/21/24 12/21/24 18:59 06:59 18:59 Intake Total 1720 540 Balance 1720 540 Intake: Intake, IV Titration 700 Amount Ampicillin-Sulbactam 3 gm 200 In Sodium Chloride 0.9% 100 ml @ 200 mls/hr IVPB Q6HR [facility] Rx#:[id number] Vancomycin 1,250 mg In 500 Sodium Chloride 0.9% 250 ml @ 125 mls/hr IVPB Q12H [facility] Rx#:[id number] Oral 1020 540 Other: Voiding Method Toilet Toilet Toilet - Exam GENERAL: The patient is alert and oriented x3, not in any acute distress. Well developed, well nourished. HEENT: Pupils are round and equally reacting to light. EOMI. No scleral icterus. No conjunctival pallor. Normocephalic, atraumatic. No pharyngeal erythema. No thyromegaly. CARDIOVASCULAR: S1 and S2 present. No murmurs, rubs, or gallops. PULMONARY: Chest is clear to auscultation, no wheezing or crackles. ABDOMEN: Soft, mild tenderness around the surgical site area and a small fluctuant mass few centimeters next to the ostomy, nondistended, normoactive bowel sounds. No palpable organomegaly. MUSCULOSKELETAL: No joint swelling or deformity. EXTREMITIES: No cyanosis, clubbing, or pedal edema. NEUROLOGICAL: Gross neurological examination did not reveal any focal deficits. SKIN: No rashes. - Labs CBC & Chem 7: 12/21/24 11:42 12/21/24 11:42 Labs: Abnormal Lab Results - Last 24 Hours (Table) 12/19/24 12/20/24 12/20/24 Range/Units 05:31 02:57 02:57 RBC 4.05 L (4.10-5.20) X 10*6/uL MCHC 31.6 L (32.0-37.0) g/dL Lymphocytes # 0.89 L (0.90-5.00) X 10*3/uL Chloride 111 H (96-109) mmol/L Carbon Dioxide 16.5 L (21.6-31.8) mmol/L Anion Gap 15.50 H (4.00-12.00) mmol/L BUN/Creatinine Ratio 26.57 H (12.00-20.00) Ratio Glucose 206 H (70-110) mg/dL POC Glucose (mg/dL) (70-110) mg/dL Hemoglobin A1c 8.9 H (<=6.0) % Calcium 8.6 L (8.7-10.3) mg/dL 12/20/24 12/20/24 12/20/24 Range/Units 12:22 17:11 20:12 RBC (4.10-5.20) X 10*6/uL MCHC (32.0-37.0) g/dL Lymphocytes # (0.90-5.00) X 10*3/uL Chloride (96-109) mmol/L Carbon Dioxide (21.6-31.8) mmol/L Anion Gap (4.00-12.00) mmol/L BUN/Creatinine Ratio (12.00-20.00) Ratio Glucose (70-110) mg/dL POC Glucose (mg/dL) 126 H 115 H 133 H (70-110) mg/dL Hemoglobin A1c (<=6.0) % Calcium (8.7-10.3) mg/dL 12/21/24 Range/Units 07:01 RBC (4.10-5.20) X 10*6/uL MCHC (32.0-37.0) g/dL Lymphocytes # (0.90-5.00) X 10*3/uL Chloride (96-109) mmol/L Carbon Dioxide (21.6-31.8) mmol/L Anion Gap (4.00-12.00) mmol/L BUN/Creatinine Ratio (12.00-20.00) Ratio Glucose (70-110) mg/dL POC Glucose (mg/dL) 129 H (70-110) mg/dL Hemoglobin A1c (<=6.0) % Calcium (8.7-10.3) mg/dL Microbiology - Last 24 Hours (Table) 12/18/24 15:15 Gram Stain - Preliminary Abdomen Wound Culture - Preliminary Presumptive Staph aureus Proteus mirabilis Pseudomonas aeruginosa 12/18/24 15:15 Anaerobic Culture - Preliminary Abdomen Assessment and Plan Assessment: -Abdominal pain: Patient had an ostomy recently 2 weeks ago patient has pain in that area etiology is not clear CT of the abdomen did not show any obvious abscess. General surgery will evaluate the patient patient is presently on broad-spectrum antibiotics although surgical site area does not appear to be infected at this time patient is presently on cefepime and vancomycin. Infectious disease will evaluate the patient. - COPD without any acute exacerbation - Type II levels noticed patient will be resumed on home regimen along with sliding scale insulin depending on the insulin requirements patient is insulin will be adjusted - Gastroesophageal reflux disease - Hyperlipidemia - Hypertension patient is on multiple anticoagulant medications patient with history on the lower side yesterday hydrochlorothiazide and clonidine was discontinued at this time - History of DVT for which patient is on Eliquis which was was resumed DVT prophylaxis: On Eliquis
[2024-12-22 06:44] LABS: African American GFR (CKD) >90 (>60 ml/min/1.73 sqM); Anion Gap 12 mmol/L; Blood Urea Nitrogen 11 mg/dL (7-17); Carbon Dioxide 20 mmol/L (22-30); Chloride 108 mmol/L (98-107); Glucose 101 mg/dL (74-99); Non-African American GFR(CKD) >90 (>60 ml/min/1.73 sqM); Sodium 140 mmol/L (137-145)
[2024-12-22 07:08] LABS: Potassium 3.6 mmol/L (3.5-5.1)
[2024-12-22 07:37] LABS: Glucose,Whole Blood 159 mg/dL (70-110)
[2024-12-22] MEDS: CYCLOBENZAPRINE 5 MG TAB PO PRN (08:35)
[2024-12-22 08:40] LABS: Basophils # (A) 0.04 X 10*3/uL (0.00-0.10); Basophils % (A) 0.7 %; Eosinophils # (A) 0.24 X 10*3/uL (0.04-0.35); Eosinophils % (A) 4.2 %; HCT 39.6 % (37.2-46.3); MCH 30.2 pg (27.0-32.0); MCHC 32.8 g/dL (32.0-37.0); MCV 91.9 FL (80.0-97.0); Mean Platelet Volume 11.2 FL (9.5-12.2); Monocytes # (A) 0.41 X 10*3/uL (0.20-1.00); Monocytes % (A) 7.1 %; NRBC Per 100 WBC 0 X 10*3/uL (0.00-0.01); Neutrophils # (A) 3.97 X 10*3/uL (1.80-7.70); Neutrophils % (A) 68.7 %; Platelet Count 233 X 10*3/uL (140-440); RBC 4.31 X 10*6/uL (4.10-5.20); RDW 13.2 % (11.5-14.5); WBC 5.78 X 10*3/uL (4.50-10.00)
[2024-12-22] MEDS: POTASSIUM CHLORIDE ER 20 MEQ TAB.ER PO SCH (12:28)
[2024-12-22 12:31] LABS: Glucose,Whole Blood 96 mg/dL (70-110)
--- NOTE | 2024-12-22 15:03 | P.PN ---
Subjective Progress Note Date: 12/22/24 SURGICAL PROGRESS NOTE CHIEF COMPLAINT: Abdominal pain HISTORY OF PRESENT ILLNESS: Patient continues to complain of abdominal pain. No new complaints. Patient has wound VAC in place. Afebrile. WBC 5.78 PHYSICAL EXAM: VITAL SIGNS: Reviewed. GENERAL: Well-developed in no acute distress. ABDOMEN: Soft. Nondistended. Wound VAC in place NEUROLOGIC: Alert and oriented. Cranial nerves II through XII grossly intact. ASSESSMENT: 1. Abdominal pain after vacuuming. Likely musculoskeletal. CT scan results reviewed with Dr. Lewis. There is no evidence of abdominal abscess. Patient is afebrile. White count is normal. 2. Abdominal wound 3. Chronic abdominal pain PLAN: -Discharge antibiotics per ID service -it security project manager arranging wound VAC outpatient -it security project manager working on ECF placement at discharge Physician Multimedia Instructional Designer note has been reviewed by physician. Signing provider agrees with the documented findings, assessment, and plan of care. Objective - Vital Signs Vital signs: Vital Signs Temp 97.5 F L 12/22/24 12:23 Pulse 59 L 12/22/24 12:23 Resp 18 12/22/24 12:23 BP 156/99 12/22/24 12:23 Pulse Ox 97 12/22/24 12:23 FiO2 Intake & Output 12/21/24 12/22/24 12/22/24 18:59 06:59 18:59 Intake Total 1665 590 Output Total 3 Balance 1665 587 Intake: Intake, IV Titration 1125 Amount Ampicillin-Sulbactam 3 gm 100 In Sodium Chloride 0.9% 100 ml @ 200 mls/hr IVPB Q6HR [facility] Rx#:[id number] Cefepime 2 gm In Dextrose 100 5% in Water 100 ml @ 25 mls/hr IVPB Q8HR [facility] Rx#: [id number] Sodium Chloride 0.9% 1, 675 000 ml @ 75 mls/hr IV . [id number] [facility] Rx#:[id number] Vancomycin 1,250 mg In 250 Sodium Chloride 0.9% 250 ml @ 125 mls/hr IVPB Q12H [facility] Rx#:[id number] Oral 540 590 Output: Urine 3 Other: Voiding Method Toilet Toilet Toilet # Bowel Movements 1 - Labs CBC & Chem 7: 12/22/24 05:02 12/22/24 05:02 Labs: Abnormal Lab Results - Last 24 Hours (Table) 12/21/24 12/21/24 12/22/24 Range/Units 17:05 20:21 05:02 Chloride 108 H (98-107) mmol/L Carbon Dioxide 20 L (22-30) mmol/L Glucose 101 H (74-99) mg/dL POC Glucose (mg/dL) 129 H 240 H (70-110) mg/dL 12/22/24 Range/Units 07:19 Chloride (98-107) mmol/L Carbon Dioxide (22-30) mmol/L Glucose (74-99) mg/dL POC Glucose (mg/dL) 159 H (70-110) mg/dL Microbiology - Last 24 Hours (Table) 12/18/24 15:15 Gram Stain - Final Abdomen Wound Culture - Final Staphylococcus aureus Proteus mirabilis Pseudomonas aeruginosa
[2024-12-22 17:00] LABS: Glucose,Whole Blood 195 mg/dL (70-110)
--- NOTE | 2024-12-22 19:53 | CDI ---
Documentation Clarification Form Date: 12/22/2024 06:42:44 PM From: Vandana Jose RN CCDS Phone: [phone] Admit Date: 12/18/2024 01:57:00 AM Patient Name: Inna Meade Visit Number: [id number] Discharge Date: ATTENTION: The Clinical Documentation Specialists (CDI) and [facility] Coding Staff appreciate your assistance in clarifying documentation. Please respond to the clarification below the line at the bottom and electronically sign. The CDI & [facility] Coding staff will review the response and follow-up if needed. Please note: Queries are made part of the Legal Health Record. If you have any questions, please contact the author of this message via ITS. Provider: SARAH Farrell The patients principal diagnosis the diagnosis that was chiefly responsible for the admission - has not been clearly identified and clarification is requested. The patient presented with the following intractable abdominal pain. History/Risk factors: 54 year old female with abdominal pain around the surgical site. The patient had abdominal surgery and an ostomy two weeks ago. Medical History: HLD, HTN , DM, GERD, DVT and COPD. 12/18, HP. Clinical Indicators: Lab findings, 12/17: Wbc 8.98, Hgb 12.9, Lactic acid 2.1 Wound culture, 12/21: Final:Staphylococcus aureus. Few proteus mirabilis, Rare pseudomonas aeruginosa. CT ABD without contrast, 12/17: 1.Recent ostomy reversal. Skin thickening, mild coalescing edema, and packing material in the ostomy wound. Developing abscess cannot be excluded however, there is currently not a significant drainable component. Vital Signs: ID Consult: patient presented to hospital with intractable abdominal pain in this patient has been dealing with non- healing wound to the mid abdominal area from pervious surgery did have a recent ID unfortunately no culture were done now with worsening wound has some abnormality seen on the CT with concern for possible cellulitis clinically not behaving as an abscess in this patient with no fever or elevated white count no significant redness. Treatment: 12/18 12/22 Vancomycin IVPB Q12H 12/21 Cefepime IVPB Q8H Consults: ID consult above. In your professional opinion, can you please clarify which diagnosis, after study, was the reason chiefly responsible for the admission? [ x] Post-operative wound infection [ ] Other, please specify [ ] Unable to determine (Template Last Revised: October 2020) MTDD
[2024-12-22 19:54] VITALS: RESP 16
[2024-12-22 21:13] LABS: Glucose,Whole Blood 200 mg/dL (70-110)
--- NOTE | 2024-12-22 21:58 | P.PN ---
Subjective Progress Note Date: 12/22/24 Principal diagnosis: Reason for follow-up is abdominal wound and a question of abscess Patient is a 54-year-old female with a past medical history significant for COPD CVA TIA hypertension hyperlipidemia and this patient has been dealing with a chronic nonhealing wound to the mid abdominal area after abdominal surgery patient recently did have I&D on 11/28/2024 now presenting with worsening abdominal pain CT was suspicious for possible abscess. On today's evaluation that is 12/22/2024, Patient is afebrile this morning patient denies having any chest pain shortness of breath or cough, the patient is currently on room air, patient abdominal pain has decreased in intensity no nausea no vomiting. The patient white count is 5.78, creatinine 0.52 wound culture finalized with MSSA Proteus and Pseudomonas aeruginosa Objective - Vital Signs Vital signs: Vital Signs Temp 97.5 F L 12/22/24 12:23 Pulse 59 L 12/22/24 12:23 Resp 18 12/22/24 12:23 BP 156/99 12/22/24 12:23 Pulse Ox 97 12/22/24 12:23 FiO2 Intake & Output 12/21/24 12/22/24 12/22/24 18:59 06:59 18:59 Intake Total 1665 590 Output Total 3 Balance 1665 587 Intake: Intake, IV Titration 1125 Amount Ampicillin-Sulbactam 3 gm 100 In Sodium Chloride 0.9% 100 ml @ 200 mls/hr IVPB Q6HR [facility] Rx#:[id number] Cefepime 2 gm In Dextrose 100 5% in Water 100 ml @ 25 mls/hr IVPB Q8HR [facility] Rx#: [id number] Sodium Chloride 0.9% 1, 675 000 ml @ 75 mls/hr IV . [id number] [facility] Rx#:[id number] Vancomycin 1,250 mg In 250 Sodium Chloride 0.9% 250 ml @ 125 mls/hr IVPB Q12H [facility] Rx#:[id number] Oral 540 590 Output: Urine 3 Other: Voiding Method Toilet Toilet Toilet # Bowel Movements 1 - Exam GENERAL DESCRIPTION: Middle-age female lying in bed in no distress RESPIRATORY SYSTEM: Unlabored breathing , decreased breath sounds at bases HEART: S1 S2 regular rate and rhythm , ABDOMEN: Soft , abdominal wound base looks clean overall wound has decreased in size no drainage EXTREMITIES: No edema feet - Labs CBC & Chem 7: 12/22/24 05:02 12/22/24 05:02 Labs: Abnormal Lab Results - Last 24 Hours (Table) 12/21/24 12/21/24 12/22/24 Range/Units 17:05 20:21 05:02 Chloride 108 H (98-107) mmol/L Carbon Dioxide 20 L (22-30) mmol/L Glucose 101 H (74-99) mg/dL POC Glucose (mg/dL) 129 H 240 H (70-110) mg/dL 12/22/24 Range/Units 07:19 Chloride (98-107) mmol/L Carbon Dioxide (22-30) mmol/L Glucose (74-99) mg/dL POC Glucose (mg/dL) 159 H (70-110) mg/dL Microbiology - Last 24 Hours (Table) 12/18/24 15:15 Gram Stain - Final Abdomen Wound Culture - Final Staphylococcus aureus Proteus mirabilis Pseudomonas aeruginosa Assessment and Plan (1) Open abdominal wall wound Current Visit: Yes Status: Acute Code(s): S31.109A - UNSP OPN WND ABD WALL, UNSP Q W/O PENET PERIT CAV, INIT SNOMED Code(s): 347089250 Plan: 1patient presented to hospital with intractable abdominal pain in this patient has been dealing with a nonhealing wound to the mid abdominal area from previous surgery did have recent I&D unfortunately no culture were done now with worsening wound has some abnormality seen on the CT with concern for possible cellulitis clinically not behaving as an abscess in this patient with no fever or elevated white count no significant redness 2-local culture currently growing MSSA Proteus and Pseudomonas for the patient is covered with the cefepime will discontinue vancomycin patient to be able to finish therapy with a 2-week course of oral Cipro and Keflex prescription has been sent to the pharmacy and close outpatient follow-up Dictation was produced using [employer] dictation software. please excuse any grammatical, word or spelling errors. Time with Patient: Less than 30
[2024-12-23 06:14] LABS: Magnesium 1.9 mg/dL (1.6-2.3); Potassium 3.9 mmol/L (3.5-5.1)
[2024-12-23 07:23] LABS: Glucose,Whole Blood 140 mg/dL (70-110)
--- NOTE | 2024-12-23 10:28 | P.PN ---
Subjective Progress Note Date: 12/22/24 54-year-old female had a abdominal surgery and an ostomy 2 weeks ago came in with abdominal pain around the surgical site. The surgical site area appears to be clean except with a small fluctuant mass slightly next to the ostomy. Although patient does not have any tenderness in that area patient does have slight tenderness around the surgical site area. Patient nausea vomiting does not have any fever there is no leukocytosis. 12/20/2024 Patient is seen and evaluated in room at bedside; reports fair pain control; wants home pain medication regimen to be changed since it is an effective patient presented to hospital with intractable abdominal pain in this patient has been dealing with a nonhealing wound to the mid abdominal area from previous surgery did have recent I&D unfortunately no culture were done now with worsening wound has some abnormality seen on the CT with concern for possible cellulitis clinically not behaving as an abscess in this patient with no fever or elevated white count no significant redness -local culture has been obtained which are currently pending nursing staff to apply the wound VAC to make sure the patient is tolerating it continue with the vancomycin while waiting for the culture to finalize - We will continue with current antibiotics and current pain management at this time 12/21/2024 Patient is seen and evaluated sitting up in bed; denies any specific complaint; wound VAC in place Vital signs are reviewed and stable Blood work reveals WBC 6.07, hemoglobin 12.5 and platelet count of 121, sodium 139, potassium 3.6, BUN/creatinine 12/0.6 patient presented to hospital with intractable abdominal pain in this patient has been dealing with a nonhealing wound to the mid abdominal area from previous surgery did have recent I&D unfortunately no culture were done now with worsening wound has some abnormality seen on the CT with concern for possible cellulitis clinically not behaving as an abscess in this patient with no fever or elevated white count no significant redness -local culture currently growing Staph aureus, Proteus along with Pseudomonas with sensitivities pending patient is covered with vancomycin we will switch Unasyn to cefepime to cover for both Proteus and Pseudomonas patient did have ceftriaxone allergy on the chart however she has tolerated cefepime without any problem 12/22/2024 Patient is seen in follow-up today with general surgery and infectious disease following. Patient has wound VAC and is maintained on IV antibiotics with culture showing Staph aureus, Proteus, Pseudomonas and awaiting to discuss further with infectious disease if patient will be requiring IV antibiotics on discharge. If patient requires IV antibiotics, consider ECF for continued wound care and IV antibiotic therapy as patient feels she will not be able to handle this. Social work following working on verifying coverage and medications along with referrals being placed possibly to [facility]. Patient is afebrile with no reports of chest pain or shortness of breath. Patient has been tolerating diet with no reported nausea or vomiting. Patient has been up and walking the halls with no difficulties. Review of systems: Constitutional: No reports of fatigue, fever, or chills Cardiovascular: No reports of chest pain or palpitations Respiratory: No reports of shortness of breath or cough GI: No reports of nausea, vomiting, or diarrhea : No reports of dysuria or retention Neurovascular: No reports of weakness or numbness All medications have been reviewed Physical exam: Gen: This is a 54-year-old female who is awake, alert and oriented x 3, well- developed, appears elderly, has residual deficits from previous stroke with aphasia HEENT: Head is atraumatic, normocephalic. Pupils equal, round. Sclerae is anicteric. NECK: Supple. No JVD. No lymphadenopathy. No thyromegaly. LUNGS: Diminished breath sounds bilaterally otherwise clear to auscultation. No wheezes or rhonchi. No intercostal retractions. HEART: S1, S2 are muffled ABDOMEN: Soft. Wound VAC noted bowel sounds are present. No masses. No tenderness. EXTREMITIES: No pedal edema. No calf tenderness. NEUROLOGICAL: Patient is awake, alert and oriented x3. Cranial nerves 2 through 12 are grossly intact. Assessment: -Abdominal pain: Patient had history of ostomy and also was hospitalized recently with concerns of abdominal wound dehiscence and drainage status post washout and cultures were negative at that point. Patient returned with worsening drainage and concerns for possible infection versus abscess. Patient did undergo CT of the abdomen did not show any obvious abscess. - COPD without any acute exacerbation -Diabetes mellitus, type II, uncontrolled with hyperglycemia - Gastroesophageal reflux disease -History of CVA with expressive aphasia, 2020 - Hyperlipidemia - Hypertension - History of DVT for which patient is on Eliquis which was was resumed - GI prophylaxis -DVT prophylaxis: On Eliquis - Full code Plan: Patient being followed by general surgery along with infectious disease awaiting wound cultures to finalize to determine if patient will require IV antibiotics or if patient will be able to go home with antibiotics Case management/social work following working on wound VAC arrangements and home care versus possible ECF if patient requires continued IV antibiotic therapy Encouraged increase activity as tolerated Continue with local wound care per surgery and infectious disease Possible discharge planning in the next 24 to 48 hours if antibiotics are arranged along with wound VAC The impression and plan of care has been dictated by Jennifer Thakkar, Nurse Practitioner as directed. Dr. Leydi MD I have performed a history and examination and MDM of this patient, discussed the same with the dictator, and agree with the dictator's assessment and plan as written ,documented as a scribe. Based on total visit time, I have performed more than 50% of the visit. Objective - Vital Signs Vital signs: Vital Signs Temp 97.5 F L 12/22/24 07:16 Pulse 60 12/22/24 07:16 Resp 17 12/22/24 07:16 BP 171/94 12/22/24 07:16 Pulse Ox 93 L 12/22/24 07:16 FiO2 Intake & Output 12/21/24 12/22/24 12/22/24 18:59 06:59 18:59 Intake Total 1665 590 Output Total 3 Balance 1665 587 Intake: Intake, IV Titration 1125 Amount Ampicillin-Sulbactam 3 gm 100 In Sodium Chloride 0.9% 100 ml @ 200 mls/hr IVPB Q6HR [facility] Rx#:[id number] Cefepime 2 gm In Dextrose 100 5% in Water 100 ml @ 25 mls/hr IVPB Q8HR [facility] Rx#: [id number] Sodium Chloride 0.9% 1, 675 000 ml @ 75 mls/hr IV . [id number] [facility] Rx#:[id number] Vancomycin 1,250 mg In 250 Sodium Chloride 0.9% 250 ml @ 125 mls/hr IVPB Q12H [facility] Rx#:[id number] Oral 540 590 Output: Urine 3 Other: Voiding Method Toilet Toilet # Bowel Movements 1 - Labs CBC & Chem 7: 12/22/24 05:02 12/23/24 05:21 Labs: Abnormal Lab Results - Last 24 Hours (Table) 12/21/24 12/21/24 12/21/24 Range/Units 11:42 11:42 12:09 RBC 4.04 L (4.10-5.20) 10*6/uL Hct 36.9 L (37.2-46.3) % Chloride 111 H (98-107) mmol/L Carbon Dioxide 21 L (22-30) mmol/L Glucose 144 H (74-99) mg/dL POC Glucose (mg/dL) 132 H (70-110) mg/dL 12/21/24 12/21/24 12/22/24 Range/Units 17:05 20:21 05:02 RBC (4.10-5.20) 10*6/uL Hct (37.2-46.3) % Chloride 108 H (98-107) mmol/L Carbon Dioxide 20 L (22-30) mmol/L Glucose 101 H (74-99) mg/dL POC Glucose (mg/dL) 129 H 240 H (70-110) mg/dL 12/22/24 Range/Units 07:19 RBC (4.10-5.20) 10*6/uL Hct (37.2-46.3) % Chloride (98-107) mmol/L Carbon Dioxide (22-30) mmol/L Glucose (74-99) mg/dL POC Glucose (mg/dL) 159 H (70-110) mg/dL Microbiology - Last 24 Hours (Table) 12/18/24 15:15 Gram Stain - Final Abdomen Wound Culture - Final Staphylococcus aureus Proteus mirabilis Pseudomonas aeruginosa
[2024-12-23 12:12] LABS: Glucose,Whole Blood 146 mg/dL (70-110)
[2024-12-23 12:48] VITALS: BP 165/85; PULSE 57; TEMP 98
--- NOTE | 2024-12-23 12:48 | P.PN ---
Subjective Progress Note Date: 12/23/24 SURGICAL PROGRESS NOTE CHIEF COMPLAINT: Abdominal pain HISTORY OF PRESENT ILLNESS: Wound VAC for outpatient has been arranged. Patient reports that she still has pain but it is better than the pain that she presented with. Afebrile. No new complaints. PHYSICAL EXAM: VITAL SIGNS: Reviewed. GENERAL: Well-developed in no acute distress. ABDOMEN: Soft. Nondistended. Wound VAC in place NEUROLOGIC: Alert and oriented. Cranial nerves II through XII grossly intact. ASSESSMENT: 1. Abdominal pain after vacuuming. Likely musculoskeletal. CT scan results reviewed with Dr. Lewis. There is no evidence of abdominal abscess. Patient is afebrile. White count is normal. 2. Abdominal wound 3. Chronic abdominal pain PLAN: -Patient can be discharged from surgical standpoint -manager internet retails sales has arranged wound VAC for outpatient and home care -Discharge antibiotics per ID service -Continue home pain medication regimen -Patient to follow-up at wound care center outpatient Physician Tray Filler note has been reviewed by physician. Signing provider agrees with the documented findings, assessment, and plan of care. Objective - Vital Signs Vital signs: Vital Signs Temp 97.6 F 12/23/24 07:45 Pulse 66 12/23/24 11:45 Resp 16 12/23/24 07:45 BP 161/90 12/23/24 07:45 Pulse Ox 95 12/23/24 07:45 FiO2 Intake & Output 12/22/24 12/23/24 12/23/24 18:59 06:59 18:59 Intake Total 1080 590 240 Balance 1080 590 240 Intake: Oral 1080 590 240 Other: Voiding Method Toilet Toilet # Voids 4 2 - Labs CBC & Chem 7: 12/22/24 05:02 12/23/24 05:21 Labs: Abnormal Lab Results - Last 24 Hours (Table) 12/22/24 12/22/24 12/23/24 Range/Units 16:59 21:12 07:21 POC Glucose (mg/dL) 195 H 200 H 140 H (70-110) mg/dL 12/23/24 Range/Units 12:10 POC Glucose (mg/dL) 146 H (70-110) mg/dL Microbiology - Last 24 Hours (Table) 12/18/24 15:15 Anaerobic Culture - Final Abdomen
[2024-12-23] MEDS ORDERED: VANCOMYCIN TROUGH DUE 1 EACH MISC MISCELLANE ONE (15:00)
--- NOTE | 2024-12-23 15:52 | P.PN ---
Subjective Progress Note Date: 12/23/24 Principal diagnosis: Reason for follow-up is abdominal wound and a question of abscess Patient is a 54-year-old female with a past medical history significant for COPD CVA TIA hypertension hyperlipidemia and this patient has been dealing with a chronic nonhealing wound to the mid abdominal area after abdominal surgery patient recently did have I&D on 11/28/2024 now presenting with worsening abdominal pain CT was suspicious for possible abscess. On today's evaluation that is 12/23/2024,the patient denies any fever or any chills, patient is breathing comfortably on room air, the patient denies chest pain shortness of breath and no significant cough, patient abdominal pain is currently controlled no nausea no vomiting. Patient did have potassium of 3.9 mag is 1.9 no CBC was done today Objective - Vital Signs Vital signs: Vital Signs Temp 97.6 F 12/23/24 07:45 Pulse 66 12/23/24 11:45 Resp 16 12/23/24 07:45 BP 161/90 12/23/24 07:45 Pulse Ox 95 12/23/24 07:45 FiO2 Intake & Output 12/22/24 12/23/24 12/23/24 18:59 06:59 18:59 Intake Total 1080 590 240 Balance 1080 590 240 Intake: Oral 1080 590 240 Other: Voiding Method Toilet Toilet # Voids 4 2 - Exam GENERAL DESCRIPTION: Middle-age female lying in bed in no distress RESPIRATORY SYSTEM: Unlabored breathing , decreased breath sounds at bases HEART: S1 S2 regular rate and rhythm , ABDOMEN: Soft , abdominal wound covered with a wound VAC EXTREMITIES: No edema feet - Labs CBC & Chem 7: 12/22/24 05:02 12/23/24 05:21 Labs: Abnormal Lab Results - Last 24 Hours (Table) 12/22/24 12/22/24 12/23/24 Range/Units 16:59 21:12 07:21 POC Glucose (mg/dL) 195 H 200 H 140 H (70-110) mg/dL 12/23/24 Range/Units 12:10 POC Glucose (mg/dL) 146 H (70-110) mg/dL Microbiology - Last 24 Hours (Table) 12/18/24 15:15 Anaerobic Culture - Final Abdomen Assessment and Plan (1) Open abdominal wall wound Current Visit: Yes Status: Acute Code(s): S31.109A - UNSP OPN WND ABD WALL, UNSP Q W/O PENET PERIT CAV, INIT SNOMED Code(s): 373838386 Plan: 1patient presented to hospital with intractable abdominal pain in this patient has been dealing with a nonhealing wound to the mid abdominal area from previous surgery did have recent I&D unfortunately no culture were done now with worsening wound has some abnormality seen on the CT with concern for possible cellulitis clinically not behaving as an abscess in this patient with no fever or elevated white count no significant redness 2-local culture currently growing MSSA Proteus and Pseudomonas for the patient is covered with the cefepime 3 patient to be able to finish therapy with a 2-week course of oral Cipro and close outpatient follow-up Dictation was produced using [employer] dictation software. please excuse any grammatical, word or spelling errors.
--- NOTE | 2024-12-29 06:27 | P.DS ---
Providers Date of admission: 12/18/24 01:57 Expected date of discharge: 12/23/24 Attending physician: Danna Saeed Consults: 12/18/24 01:57 Consult Physician Routine Consulting Provider: Haroon Lewis Consult Reason/Comments: poss abscess, intract. post op abdominal pain Do you want consulting provider notified?: Already Contacted 12/18/24 12:16 Consult Physician Routine Consulting Provider: Burton Self Consult Reason/Comments: possible abcess, abdominal wound Do you want consulting provider notified?: Already Contacted Primary care physician: Stated None Hospital Course: Final diagnosis -Abdominal pain: Patient had extensive history of ostomy with reversal and abdominal wound dehiscence and drainage status post washout and cultures were negative at that point. Patient returned with worsening drainage and concerns for possible infection of previous surgical site. Patient did undergo CT of the abdomen did not show any obvious abscess. - COPD without any acute exacerbation -Diabetes mellitus, type II, uncontrolled with hyperglycemia - Gastroesophageal reflux disease -History of CVA with expressive aphasia, 2020 - Hyperlipidemia - Hypertension - History of DVT for which patient is on Eliquis - GI prophylaxis -DVT prophylaxis: On Eliquis - Full code Discharge disposition Patient is being discharged in a stable condition with guarded prognosis to home with home care. Patient will follow-up with Dr. Mihir Saeed in the outpatient setting upon discharge. Patient is to continue with oral antibiotics on discharge and close outpatient follow-up with infectious disease and general surgery as scheduled. Total time taken is greater than 35 minutes. Hospital course 54-year-old female had a abdominal surgery and an ostomy 2 weeks ago came in with abdominal pain around the surgical site. The surgical site area appears to be clean except with a small fluctuant mass slightly next to the ostomy. Although patient does not have any tenderness in that area patient does have slight tenderness around the surgical site area. Patient nausea vomiting does not have any fever there is no leukocytosis. 12/20/2024 Patient is seen and evaluated in room at bedside; reports fair pain control; wants home pain medication regimen to be changed since it is an effective patient presented to hospital with intractable abdominal pain in this patient has been dealing with a nonhealing wound to the mid abdominal area from previous surgery did have recent I&D unfortunately no culture were done now with worsening wound has some abnormality seen on the CT with concern for possible cellulitis clinically not behaving as an abscess in this patient with no fever or elevated white count no significant redness -local culture has been obtained which are currently pending nursing staff to apply the wound VAC to make sure the patient is tolerating it continue with the vancomycin while waiting for the culture to finalize - We will continue with current antibiotics and current pain management at this time 12/21/2024 Patient is seen and evaluated sitting up in bed; denies any specific complaint; wound VAC in place Vital signs are reviewed and stable Blood work reveals WBC 6.07, hemoglobin 12.5 and platelet count of 121, sodium 139, potassium 3.6, BUN/creatinine 12/0.6 patient presented to hospital with intractable abdominal pain in this patient h as been dealing with a nonhealing wound to the mid abdominal area from previous surgery did have recent I&D unfortunately no culture were done now with worsening wound has some abnormality seen on the CT with concern for possible cellulitis clinically not behaving as an abscess in this patient with no fever or elevated white count no significant redness -local culture currently growing Staph aureus, Proteus along with Pseudomonas with sensitivities pending patient is covered with vancomycin we will switch Unasyn to cefepime to cover for both Proteus and Pseudomonas patient did have ceftriaxone allergy on the chart however she has tolerated cefepime without any problem 12/22/2024 Patient is seen in follow-up today with general surgery and infectious disease following. Patient has wound VAC and is maintained on IV antibiotics with culture showing Staph aureus, Proteus, Pseudomonas and awaiting to discuss further with infectious disease if patient will be requiring IV antibiotics on discharge. If patient requires IV antibiotics, consider ECF for continued wound care and IV antibiotic therapy as patient feels she will not be able to handle this. Social work following working on verifying coverage and medications along with referrals being placed [facility] to [facility]. Patient is afebrile with no reports of chest pain or shortness of breath. Patient has been tolerating diet with no reported nausea or vomiting. Patient has been up and walking the halls with no difficulties. 12/23/2024 Patient is seen in follow-up today has been approved for wound VAC and will transition to oral antibiotics per infectious disease recommendations on discharge and will continue with home care. Case management/social work following making arrangements for discharge planning will be going home with home care today. Patient has been cleared by consultations for discharge. Please refer to consultation notes for further HPI. Currently no reports of chest pain, shortness of breath, or palpitations. Patient is afebrile. No reports of nausea or vomiting and patient is tolerating diet. Patient will be discharged home today. High risk for readmissions given continued ongoing issues. If Please refer to medication reconciliation sheet for a list of medications. Physical exam: Gen: This is a 54-year-old female who is awake, alert and oriented x 3, well- developed, appears elderly, has residual deficits from previous stroke with aphasia HEENT: Head is atraumatic, normocephalic. Pupils equal, round. Sclerae is anicteric. NECK: Supple. No JVD. No lymphadenopathy. No thyromegaly. LUNGS: Diminished breath sounds bilaterally otherwise clear to auscultation. No wheezes or rhonchi. No intercostal retractions. HEART: S1, S2 are muffled ABDOMEN: Soft. Wound VAC noted bowel sounds are present. No masses. No tenderness. EXTREMITIES: No pedal edema. No calf tenderness. NEUROLOGICAL: Patient is awake, alert and oriented x3. Cranial nerves 2 through 12 are grossly intact. The impression and plan of care has been dictated by Jennifer Thakkar, Nurse Practitioner as directed. Dr. Leydi MD I have performed a history and examination and MDM of this patient, discussed the same with the dictator, and agree with the dictator's assessment and plan as written ,documented as a scribe. Based on total visit time, I have performed more than 50% of the visit. Patient Condition at Discharge: Stable Plan - Discharge Summary Discharge Rx Participant: Yes New Discharge Prescriptions: New Ciprofloxacin HCl [Cipro] 500 mg PO Q12HR 14 Days #28 tab RX: Mag Hydrox/Al Hydrox/Simeth [Maalox] 15 ml PO Q6HR PRN ml PRN Reason: Indigestion Cephalexin [Keflex] 500 mg PO Q6HR 14 Days #56 cap RX: Cyclobenzaprine [Flexeril] 5 mg PO TID PRN #10 tab PRN Reason: Muscle Spasm Continue RX: traZODone HCL 150 mg PO HS RX: busPIRone HCL 15 mg PO TID RX: Gabapentin 800 mg PO TID 3 Days #9 tab RX: Apixaban [Eliquis] 5 mg PO BID RX: Famotidine 40 mg PO DAILY RX: Ezetimibe [Zetia] 10 mg PO DAILY RX: Ipratropium-Albuterol Nebulize [Duoneb 0.5 mg-3 mg/3 ml Soln] 3 ml INHALATION RT-QID RX: HYDROcodone/APAP 10-325MG [[place] 10-325] 1 tab PO TID RX: Potassium Chloride ER [K-Dur 20] 20 meq PO DAILY RX: Nicotine 21Mg/24Hr Patch [Habitrol] 1 patch TRANSDERM DAILY #30 patch RX: Acetaminophen Tab [Tylenol] 650 mg PO Q6HR PRN tab PRN Reason: Mild Pain Or Fever > 100.5 RX: hydroCHLOROthiazide [Hydrodiuril] 12.5 mg PO DAILY RX: Insulin Glargine,Hum.rec.anlog [Lantus Solostar Pen] 50 unit SQ DAILY RX: Atorvastatin [Lipitor] 80 mg PO DAILY RX: cloNIDine HCL 0.05 mg PO BID RX: Venlafaxine HCl [Effexor XR] 150 mg PO DAILY RX: Dapagliflozin Propanediol [Farxiga] 10 mg PO DAILY RX: lisinopriL [Zestril] 10 mg PO DAILY #30 tab Discharge Medication List RX: Insulin Glargine,Hum.rec.anlog [Lantus Solostar Pen] 50 unit SQ DAILY 08/04/21 [History] RX: hydroCHLOROthiazide [Hydrodiuril] 12.5 mg PO DAILY 08/04/21 [History] RX: busPIRone HCL 15 mg PO TID 03/14/23 [History] RX: traZODone HCL 150 mg PO HS 03/14/23 [History] RX: Gabapentin 800 mg PO TID 3 Days #9 tab 07/12/23 [Rx] RX: Atorvastatin [Lipitor] 80 mg PO DAILY 08/07/23 [History] RX: Apixaban [Eliquis] 5 mg PO BID 05/03/24 [History] RX: Ezetimibe [Zetia] 10 mg PO DAILY 05/03/24 [History] RX: Famotidine 40 mg PO DAILY 05/03/24 [History] RX: Venlafaxine HCl [Effexor XR] 150 mg PO DAILY 05/03/24 [History] RX: cloNIDine HCL 0.05 mg PO BID 05/03/24 [History] RX: Ipratropium-Albuterol Nebulize [Duoneb 0.5 mg-3 mg/3 ml Soln] 3 ml INHALATION RT-QID 06/15/24 [History] RX: Dapagliflozin Propanediol [Farxiga] 10 mg PO DAILY 11/22/24 [History] RX: HYDROcodone/APAP 10-325MG [[place] 10-325] 1 tab PO TID 11/22/24 [History] RX: Potassium Chloride ER [K-Dur 20] 20 meq PO DAILY 11/22/24 [History] RX: Acetaminophen Tab [Tylenol] 650 mg PO Q6HR PRN tab 12/01/24 [Rx] RX: Nicotine 21Mg/24Hr Patch [Habitrol] 1 patch TRANSDERM DAILY #30 patch 12/01/24 [Rx] RX: lisinopriL [Zestril] 10 mg PO DAILY #30 tab 12/01/24 [Rx] Cephalexin [Keflex] 500 mg PO Q6HR 14 Days #56 cap 12/22/24 [Rx] Ciprofloxacin HCl [Cipro] 500 mg PO Q12HR 14 Days #28 tab 12/22/24 [Rx] RX: Cyclobenzaprine [Flexeril] 5 mg PO TID PRN #10 tab 12/23/24 [Rx] RX: Mag Hydrox/Al Hydrox/Simeth [Maalox] 15 ml PO Q6HR PRN ml 12/23/24 [Rx] Follow up Appointment(s)/Referral(s): Susie Redding MD [STAFF PHYSICIAN] - 1 Week (please call to schedule a follow up appointment) [facility] [NON-STAFF] - 1 Week (please call to schedule a follow up appointment. ) Haroon Lewis MD [STAFF PHYSICIAN] - 01/06/25 3:20 pm Patient Instructions/Handouts: Cephalexin (By mouth), Ciprofloxacin (By mouth), Cyclobenzaprine (By mouth) Activity/Diet/Wound Care/Special Instructions: Activity limited until follow-up Follow-up with primary care provider Follow-up with general surgery Continue with home care and wound VAC Continue with antibiotics until finished Discharge Disposition: HOME WITH HOME HEALTH SERVICES
== END 2024-12-23 16:30 | disposition home health service (06) | DRG 863 ==
LOC: EC 21:34 → 5NMEDONC 12-18 01:57 → OBSVTOIN 12-18 01:57 → 5NMEDONC 12-18 02:37
PROVIDERS: ADMIT Hospitalist; ATTEND Hospitalist
DX: T81.41XA Infection following a procedure, superficial incisional surgical site, initial encounter (principal); I69.320 Aphasia following cerebral infarction; J44.9 Chronic obstructive pulmonary disease, unspecified; E11.65 Type 2 diabetes mellitus with hyperglycemia; I10 Essential (primary) hypertension; Z79.4 Long term (current) use of insulin; Z93.3 Colostomy status; E78.5 Hyperlipidemia, unspecified; G89.18 Other acute postprocedural pain; K21.9 Gastro-esophageal reflux disease without esophagitis; G89.29 Other chronic pain; F17.200 Nicotine dependence, unspecified, uncomplicated; Z86.718 Personal history of other venous thrombosis and embolism; Z90.49 Acquired absence of other specified parts of digestive tract; Z79.899 Other long term (current) drug therapy; Y93.E3 Activity, vacuuming; Z88.8 Allergy status to other drugs, medicaments and biological substances; Z79.01 Long term (current) use of anticoagulants
CPT/HCPCS: 36415; 74177; 80048; 80053; 80202; 81003; 82150; 83036; 83605; 83690; 83735; 84132; 85025; 85027; 85610; 85730; 86850; 86900; 86901; 87070; 87075; 87077; 87186; 87205; 94640; 96361; 96365; 96375; 96376; 99285

== ENCOUNTER 2025-02-11 13:57 | Observation (INO) | payer MEDICARE, OTHER ==
--- NOTE | 2025-02-11 14:23 | ED ---
General Adult HPI - General Chief complaint: Abdominal Pain Stated complaint: Abd Pain Time Seen by Provider: 02/11/25 14:02 Source: patient, EMS Mode of arrival: EMS Limitations: no limitations - History of Present Illness Initial comments: Dictation was produced using [employer] dictation software. please excuse any grammatical, word or spelling errors. Chief Complaint: 54-year-old female presents to the emergency department for abdominal pain History of Present Illness: Patient 54-year-old female brought in by EMS. Patient allegedly had EMS called by neighbor. Patient allegedly had been complaining of abdominal pain. She has had 3 days of watery diarrhea. Denies any recent travel. Denies any chance of food poisoning. Denies any ingestion of any stool or stool residue. Denies any fever, chills or night sweats reports poor appetite. According to EMS patient was soiled. The ROS documented in this emergency department record has been reviewed and confirmed by me. Those systems with pertinent positive or negative responses have been documented in the HPI. All other systems are other negative and/or noncontributory. - Related Data Home Medications Medication Instructions Recorded Confirmed Insulin Glargine,Hum.rec.anlog 50 unit SQ DAILY 08/04/21 12/18/24 [Lantus Solostar Pen] hydroCHLOROthiazide [Hydrodiuril] 12.5 mg PO DAILY 08/04/21 12/18/24 busPIRone HCL 15 mg PO TID 03/14/23 12/18/24 traZODone HCL 150 mg PO HS 03/14/23 12/18/24 Atorvastatin [Lipitor] 80 mg PO DAILY 08/07/23 12/18/24 Apixaban [Eliquis] 5 mg PO BID 05/03/24 12/18/24 Ezetimibe [Zetia] 10 mg PO DAILY 05/03/24 12/18/24 Famotidine 40 mg PO DAILY 05/03/24 12/18/24 Venlafaxine HCl [Effexor XR] 150 mg PO DAILY 05/03/24 12/18/24 cloNIDine HCL 0.05 mg PO BID 05/03/24 12/18/24 Ipratropium-Albuterol Nebulize 3 ml INHALATION RT-QID 06/15/24 12/18/24 [Duoneb 0.5 mg-3 mg/3 ml Soln] Dapagliflozin Propanediol [Farxiga] 10 mg PO DAILY 11/22/24 12/18/24 HYDROcodone/APAP 10-325MG [[place] 1 tab PO TID 11/22/24 12/18/24 10-325] Potassium Chloride ER [K-Dur 20] 20 meq PO DAILY 11/22/24 12/18/24 Previous Rx's Medication Instructions Recorded Gabapentin 800 mg PO TID 3 Days #9 tab 07/12/23 Acetaminophen Tab [Tylenol] 650 mg PO Q6HR PRN tab 12/01/24 Nicotine 21Mg/24Hr Patch [Habitrol] 1 patch TRANSDERM DAILY #30 patch 12/01/24 lisinopriL [Zestril] 10 mg PO DAILY #30 tab 12/01/24 Cephalexin [Keflex] 500 mg PO Q6HR 14 Days #56 cap 12/22/24 Ciprofloxacin HCl [Cipro] 500 mg PO Q12HR 14 Days #28 tab 12/22/24 Cyclobenzaprine [Flexeril] 5 mg PO TID PRN #10 tab 12/23/24 Mag Hydrox/Al Hydrox/Simeth 15 ml PO Q6HR PRN ml 12/23/24 [Maalox] Allergies Allergy/AdvReac Type Severity Reaction Status Date / Time ceftriaxone [From Rocephin] Allergy Rash/Hives Verified 01/19/25 15:01 Review of Systems ROS Statement: Those systems with pertinent positive or pertinent negative responses have been documented in the HPI. ROS Other: All systems not noted in ROS Statement are negative. Past Medical History Past Medical History: COPD, CVA/TIA, Diabetes Mellitus, Deep Vein Thrombosis (DVT), GERD/Reflux, Hyperlipidemia, Hypertension Additional Past Medical History / Comment(s): CVA 2019- expressive aphasia; 2 DVT's; diverticulitis; hernia History of Any Multi-Drug Resistant Organisms: MRSA Date of last positivie culture/infection: 09/03/23 MDRO Source:: Groin Past Surgical History: Bowel Resection Additional Past Surgical History / Comment(s): IVC FILTER 2013. ileostomy. wound vac. ileostomy reversal with hernia repair, with ovary removal-Apr 2024. Past Anesthesia/Blood Transfusion Reactions: No Reported Reaction Past Psychological History: Depression, PTSD Smoking Status: Current every day smoker Past Alcohol Use History: None Reported Past Drug Use History: None Reported General Exam - General Exam Comments Initial Comments: PHYSICAL EXAM: General Impression: Alert and oriented x3, not in acute distress HEENT: Normocephalic atraumatic, extra-ocular movements intact, pupils equal and reactive to light bilaterally, mucous membranes moist. Cardiovascular: Heart regular rate and rhythm Chest: Able to complete full sentences, no retractions, no tachypnea Abdomen: abdomen soft, non-tender, non-distended, no organomegaly, chronic anterior abdominal wound with some serosanguineous drainage. Musculoskeletal: Pulses present and equal in all extremities, no peripheral edema Motor: no focal deficits noted Neurological: CN II-XII grossly intact, no focal motor or sensory deficits noted Skin: Intact with no visualized rashes Psych: Normal affect and mood Limitations: no limitations Course Vital Signs 02/11/25 13:59 Temperature 98.3 F Pulse Rate 73 Respiratory 16 Rate Blood Pressure 150/102 O2 Sat by Pulse 97 Oximetry Medical Decision Making - Medical Decision Making Was pt. sent in by a medical professional or institution (, PA, FRINGE MAKER, urgent care, hospital, or longterm...) When possible be specific @ -No Did you speak to anyone other than the patient for history (EMS, parent, family, police, friend...)? What history was obtained from this source @ -EMS as described above Did you review nursing and triage notes (agree or disagree)? Why? @ -I reviewed and agree with nursing and triage notes Were old charts reviewed (outside hosp., previous admission, EMS record, old EKG, old radiological studies, urgent care reports/EKG's, longterm records)? Report findings @ -No old charts were reviewed Differential Diagnosis (chest pain, altered mental status, abdominal pain women, abdominal pain men, vaginal bleeding, musculoskeletal, weakness, fever, dyspnea, syncope, headache, dizziness, GI bleed, back pain, seizure, CVA, palpatations, mental health)? @ -Differential Abdominal Pain Women: Appendicitis, Cholecystitis, diverticulosis, ischemic bowel, pancreatitis, hepatitis, UTI, gastroenteritis, AAA, incarcerated hernia, bowel obstruction, constipation, inflammatory bowel, hepatitis, peptic ulcer disease, splenic infarction, perforated viscus, vulvitis, ovarian torsion, PID, kidney stone, placenta abruption, this is not meant to be an all-inclusive list EKG interpreted by me (3pts min.). @ -None done X-rays interpreted by me (1pt min.). @ -Abdominal x-ray shows no acute processes CT interpreted by me (1pt min.). @ -None done U/S interpreted by me (1pt. min.). @ -None done What testing was considered but not performed or refused? (CT, X-rays, U/S, labs)? Why? @ -None What meds were considered but not given or refused? Why? @ -None Was smoking cessation discussed for >3mins.? @ -No Were there social determinants of health that impacted care today? How? (Homelessness, low income, unemployed, alcoholism, drug addiction, trans portation, low edu. Level, literacy, decrease access to med. care, alf, rehab)? @ -No Was there de-escalation of care discussed even if they declined (Discuss DNR or withdrawal of care, Hospice)? DNR status @ -No What co-morbidities impacted this encounter? (DM, HTN, Smoking, COPD, CAD, Cancer, CVA, ARF, Chemo, Hep., AIDS, mental health diagnosis, sleep apnea, morbid obesity)? @ -None Was patient admitted / discharged? Hospital course, mention meds given and route, prescriptions, significant lab abnormalities, going to OR and other pertinent info. @ -54-year-old female with diarrhea. Patient lives at home has home visiting nurse. Patient apparently was soiled upon EMS arrival. Vital signs stable. Abdomen soft. She does have a chronic wound that does not appear to be infected on physical examination. Laboratory evaluation shows mild acidosis. Otherwise labs unremarkable. Given patient's degree of debility will be admitted case discussed with hospitalist for admission. Social work consulted. Did you discuss the management of the patient with other professionals (kwesi quiroz i.e. , PA, FRINGE MAKER, lab, RT, psych nurse, social sciences chair, steward/stewardess second class, teacher, traffic division commanding officer, showcase trimmer)? Give summary @ -See above Was critical care preformed (if so, how long)? @ -No Undiagnosed new problem with uncertain prognosis? @ -No Drug Therapy requiring intensive monitoring for toxicity (Heparin, Nitro, Insulin, Cardizem)? @ -No Were any procedures done? @ -No Diagnosis/symptom? Acute, or Chronic, or Acute on Chronic? Uncomplicated (without systemic symptoms) or Complicated (systemic symptoms)? @ -Gravely disabled, protracted diarrhea Side effects of treatment? @ -No Exacerbation, Progression, or Severe Exacerbation? @ -No Poses a threat to life or bodily function? How? (Chest pain, [place], [place], pneumonia, PE, COPD, DKA, ARF, appy, cholecystitis, CVA, Diverticulitis, Homicidal, Suicidal, threat to staff... and all critical care pts) @ -yes - Lab Data Result diagrams: 02/11/25 14:31 02/11/25 14:31 Lab Results 02/11/25 02/11/25 Range/Units 14:31 14:31 WBC 9.84 (4.50-10.00) 10*3/uL RBC 4.69 (4.10-5.20) 10*6/uL Hgb 14.5 (12.0-15.0) g/dL Hct 41.4 (37.2-46.3) % MCV 88.3 (80.0-97.0) fL MCH 30.9 (27.0-32.0) pg MCHC 35.0 (32.0-37.0) g/dL Plt Count 176 (140-440) 10*3/uL MPV 10.6 (9.5-12.2) fL Immature Gran % (Auto) 0.4 % Neutrophils % 72.8 % Lymphocytes % 20.2 % Monocytes % 5.4 % Eosinophils % 0.7 % Basophils % 0.5 % Immature Gran # 0.04 (0.00-0.04) 10*3/uL Neutrophils # 7.16 (1.80-7.70) 10*3/uL Lymphocytes # 1.99 (0.90-5.00) 10*3/uL Monocytes # 0.53 (0.20-1.00) 10*3/uL Eosinophils # 0.07 (0.04-0.35) 10*3/uL Basophils # 0.05 (0.00-0.10) 10*3/uL Sodium 134 L (137-145) mmol/L Potassium 3.9 (3.5-5.1) mmol/L Chloride 101 (98-107) mmol/L Carbon Dioxide 19 L (22-30) mmol/L Anion Gap 14 mmol/L BUN 12 (7-17) mg/dL Creatinine 0.42 L (0.52-1.04) mg/dL Est GFR (CKD-EPI)AfAm >90 (>60 ml/min/1.73 sqM) Est GFR (CKD-EPI)NonAf >90 (>60 ml/min/1.73 sqM) Glucose 290 H (74-99) mg/dL Calcium 9.8 (8.4-10.2) mg/dL Total Bilirubin 0.8 (0.2-1.3) mg/dL AST 20 (14-36) U/L ALT 23 (4-34) U/L Alkaline Phosphatase 153 H (38-126) U/L Total Protein 7.4 (6.3-8.2) g/dL Albumin 4.3 (3.5-5.0) g/dL Lipase 150 (23-300) U/L Disposition Clinical Impression: Gravely disabled Disposition: ADMITTED IP TO THIS HOSP Condition: Fair Referrals: Susie Redding MD [Primary Care Provider] - 1-2 days Decision Time: 16:19
[2025-02-11] MEDS: HYDROmorphone 1 MG/ML 1 ML SYRINGE IVP STA ×2 (14:33→16:15)
[2025-02-11] MEDS: ONDANSETRON 4 MG/2 ML VIAL IVP STA (14:33)
[2025-02-11] MEDS: SODIUM CHLORIDE 0.9% 1,000 ML IV STA (14:35)
[2025-02-11 14:38] LABS: Basophils # (A) 0.05 10*3/uL (0.00-0.10); Basophils % (A) 0.5 %; Eosinophils # (A) 0.07 10*3/uL (0.04-0.35); Eosinophils % (A) 0.7 %; HCT 41.4 % (37.2-46.3); HGB 14.5 g/dL (12.0-15.0); Lymphocytes # (A) 1.99 10*3/uL (0.90-5.00); Lymphocytes % (A) 20.2 %; MCH 30.9 pg (27.0-32.0); MCV 88.3 fL (80.0-97.0); Mean Platelet Volume 10.6 fL (9.5-12.2); Monocytes # (A) 0.53 10*3/uL (0.20-1.00); Monocytes % (A) 5.4 %; Neutrophils # (A) 7.16 10*3/uL (1.80-7.70); Neutrophils % (A) 72.8 %; Platelet Count 176 10*3/uL (140-440); RBC 4.69 10*6/uL (4.10-5.20); RDW 12.9 % (11.5-14.5); WBC 9.84 10*3/uL (4.50-10.00)
[2025-02-11 14:50] LABS: ALT 23 U/L (4-34); AST 20 U/L (14-36); African American GFR (CKD) >90 (>60 ml/min/1.73 sqM); Albumin 4.3 g/dL (3.5-5.0); Alkaline Phosphatase 153 U/L (38-126); Anion Gap 14 mmol/L; Blood Urea Nitrogen 12 mg/dL (7-17); Calcium 9.8 mg/dL (8.4-10.2); Carbon Dioxide 19 mmol/L (22-30); Chloride 101 mmol/L (98-107); Glucose 290 mg/dL (74-99); Lipase 150 U/L (23-300); Non-African American GFR(CKD) >90 (>60 ml/min/1.73 sqM); Potassium 3.9 mmol/L (3.5-5.1); Sodium 134 mmol/L (137-145); Total Bilirubin 0.8 mg/dL (0.2-1.3); Total Protein 7.4 g/dL (6.3-8.2)
--- NOTE | 2025-02-11 15:55 | XR ---
EXAMINATION TYPE: XR abdomen 1V DATE OF EXAM: 02/11/2025 3:51 PM COMPARISON: 06/28/2024. CLINICAL INDICATION: Female, 54 years old with history of abdominal pain, diarrhea; [facility] TECHNIQUE: One radiographic view of the abdomen was obtained. FINDINGS: The bowel gas pattern is nonspecific without dilated loops of small or large bowel. . Fecal material and gas are demonstrated throughout the colon and rectum. There is no evidence for organome yandy or pneumoperitoneum. No acute osseous process. No abnormal calcifications are present. IVC floyd ter present. IMPRESSION: Nonspecific bowel gas pattern without radiographic evidence for acute process. [facility], , 02/11/2025 3:53 PM
[2025-02-11] MEDS ORDERED: ACETAMINOPHEN TAB 325 MG TAB PO PRN (16:16)
[2025-02-11] MEDS ORDERED: NALOXONE 0.4 MG/ML 1 ML VIAL IV PRN (16:16)
[2025-02-11] MEDS ORDERED: IOPAMIDOL CONTRAST (ORAL USE) VIAL PO PRN (18:19)
[2025-02-11] MEDS: HYDROcodone/APAP 5-325MG 1 EACH TAB PO PRN (18:33)
[2025-02-11] MEDS: SODIUM CHLORIDE 0.9% 1,000 ML IV SCH (19:03)
--- NOTE | 2025-02-11 21:10 | CT ---
EXAMINATION TYPE: CT abdomen pelvis wo con DATE OF EXAM: 02/11/2025 8:20 PM COMPARISON: Prior CT abdomen/pelvis study 526 and 25. CLINICAL INDICATION: Female, 54 years old with history of COLITIS; colitis TECHNIQUE: Axial CT abdomen pelvis wo con;Sagittal and coronal reformats were created on a separate workstation. Oral contrast used: with Oral Contrast (none if empty) CT DLP: 574.7 mGycm, Automated exposure control for dose reduction was used. FINDINGS: LOWER CHEST: Unremarkable ABDOMEN LIVER: Diffusely hypoattenuating parenchyma. GALLBLADDER AND BILE DUCTS: Unremarkable. PANCREAS: Unremarkable. SPLEEN: Unremarkable. ADRENAL GLANDS: Unremarkable. KIDNEYS AND URETERS: No evidence of hydronephrosis or renal calculus. The ureters are unremarkable. Simple 13 mm renal cyst. PELVIS BLADDER: No evidence for wall thickening or mass given limitations of exam. REPRODUCTIVE: Unremarkable. ABDOMEN & PELVIS STOMACH AND BOWEL: Stomach and duodenum are unremarkable. No evidence of bowel obstruction. Postsurgi sarita changes compatible with sigmoidectomy. PERITONEUM/RETROPERITONEUM: No evidence of pneumoperitoneum or free fluid. VASCULATURE: No evidence of aortic aneurysm. IVC filter in place. 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 MUSCULOSKELETAL: No acute osseous abnormalities LYMPH NODES: No gross evidence for lymphadenopathy. SOFT TISSUE/ABDOMINAL WALL: Subcutaneous stranding in the left paramidline anterior abdominal wall wh ich appears to be contiguous with the superficial skin surface. No peripherally thick-walled drainabl e abscess in this region. Additional subcutaneous stranding more inferiorly in the midline anterior a bdominal wall. Small fat containing periumbilical hernia. Prominent vessels again visualized in the i ntra-abdominal wall. IMPRESSION: Subcutaneous stranding in the anterior abdominal, some of which appears contiguous with the overlying skin surface, possibly slightly improved from prior study 01/19/2025. No drainable peripherally thick -walled drainable fluid collection/abscess within the anterior abdominal wall. [facility], , 02/11/2025 9:08 PM
[2025-02-11 21:41] LABS: Glucose,Whole Blood 217 mg/dL (70-110)
[2025-02-11] MEDS: traZODone HCL 50 MG TAB PO SCH (22:02)
[2025-02-11] MEDS: busPIRone HCl 5 MG TAB PO SCH (22:02)
[2025-02-11] MEDS: APIXABAN 5 MG TAB PO SCH (22:02)
[2025-02-11] MEDS: GABAPENTIN 400 MG CAP PO SCH (22:03)
[2025-02-11] MEDS: cloNIDine HCL 0.1 MG TAB PO SCH (22:03)
[2025-02-11] MEDS: HYDROmorphone 0.5 MG/0.5 ML SYRINGE IVP PRN (22:04)
--- NOTE | 2025-02-12 00:45 | HP ---
HISTORY AND PHYSICAL CHIEF COMPLAINT: Abdominal pain and diarrhea. HISTORY OF PRESENT ILLNESS: This 54-year-old woman with a past medical history of COPD, diabetes mellitus, history of DVT, history of diverticulitis, also had an IVC filter. The patient was recently admitted to [facility] with wound dehiscence and drainage. Currently, there is some drainage at the site also. A CT scan of the abdomen during the recent admission does show acute abnormality. There is no history of fever, rigors, chills at this time. PAST MEDICAL HISTORY: History of diverticulitis, previous surgery and multiple complications as mentioned earlier. Rest of the chart is also reviewed. HOME MEDICATIONS: Reviewed include, trazodone, they are not confirmed yet. ALLERGIES: Rocephin. FAMILY HISTORY: No history of heart disease or strokes in the family. SOCIAL HISTORY: Smoking. REVIEW OF SYSTEMS: A 14-point review of systems is negative, except as mentioned earlier. PHYSICAL EXAMINATION: VITAL SIGNS: Pulse is 73, blood pressure 150/102, respirations 16. HEENT: Conjunctivae normal. CARDIOVASCULAR: S1, S2. RESPIRATIONS: Breath sounds diminished at the bases. A few scattered rhonchi. ABDOMEN: Soft, some discharge drainage present. Minimal diffuse tenderness present. LEGS: No edema. NERVOUS SYSTEM: Nonfocal. LABORATORY DATA: Reviewed. ASSESSMENT: 1. Watery diarrhea rule out Clostridium difficile colitis. 2. Colostomy reversal wound dehiscence and drainage. 3. Chronic obstructive pulmonary disease. 4. Diabetes mellitus, type 2. 5. Gastroesophageal reflux disease. 6. History of cerebrovascular accident with expressive aphasia. 7. Hypertension. 8. Hyperlipidemia. 9. Social issues. 10.Hyponatremia. RECOMMENDATIONS AND DISCUSSION: This 54-year-old woman presented with multiple complex medical issues, we will monitor the patient closely. Continue the current management and treatment. I will recommend surgical evaluation and Infectious Disease evaluation. The patient was check a C difficile. The patient was on Cipro for 2 weeks. The previous cultures were showing multiple organisms including staph, Proteus, Pseudomonas. Overall prognosis extremely guarded because of multiple complex medical issues. Further recommendations to follow. See orders for details. I would also order a CT scan of the abdomen and pelvis, also to complete the workup as well. MMODL / IJN: [id number] /
[2025-02-12] MEDS: FAMOTIDINE 20 MG TAB PO SCH (02:16)
[2025-02-12 06:17] LABS: Glucose,Whole Blood 373 mg/dL (70-110)
[2025-02-12 07:01] LABS: Glucose,Whole Blood 354 mg/dL (70-110)
[2025-02-12] MEDS: INSULIN LISPRO (HumaLOG) 100 UNIT/ML 10 mL VL SQ SCH (08:10)
[2025-02-12] MEDS: INSULIN GLARGINE (LANTUS) 100 UNIT/ML SYR SQ SCH ×2 (08:10→20:30)
[2025-02-12 11:27] LABS: Glucose,Whole Blood 213 mg/dL (70-110)
--- NOTE | 2025-02-12 13:09 | PN ---
PROGRESS NOTE DATE OF SERVICE: 02/12/2025 SUBJECTIVE: This is a 54-year-old woman was admitted with abdominal pain and diarrhea, had abdominal wall wound dehiscence and multiple other medical issues also. The abdominal pelvis CAT scan showed subcutaneous stranding of the anterior abdominal wall, possibly secondary to abdominal wall cellulitis. No drainable abscess was noted. The patient was closely monitored. The patient is on broad spectrum antibiotics. Multiple consultants are following the patient closely. The patient had some social issues also at home. The patient is also having home care coming 3 times a week and apparently the patient was found to be in stools at this time. PAST MEDICAL HISTORY: Reviewed. REVIEW OF SYSTEMS: A 14-point review of systems negative except as mentioned earlier. CURRENT MEDICATIONS: Reviewed. PHYSICAL EXAMINATION: VITAL SIGNS: Pulse 81, blood pressure 110/71, and respirations 18. CHEST: A few scattered rhonchi. CARDIOVASCULAR: S1 and S2. ABDOMEN: Soft, obese. Mild diffuse tenderness present. No guarding. No rigidity. LEGS: No edema. NERVOUS SYSTEM: Nonfocal. LABORATORY DATA: Accu-Cheks 213. The CBC within normal limits. C diff is negative. ASSESSMENT: 1. Watery diarrhea possibly infectious diarrhea or antibiotic induced diarrhea, Clostridium diff ruled out. 2. Colostomy reversal and wound dehiscence and drainage. 3. Possible abdominal wall cellulitis. 4. Chronic obstructive pulmonary disease. 5. Diabetes mellitus, type 2. 6. Gastroesophageal reflux disease. 7. History of cerebrovascular accident and expressive aphasia. 8. Hypertension. 9. Hyperlipidemia. 10.Hyponatremia. 11.Multiple complex medical issues. 12.Social issues. RECOMMENDATIONS AND DISCUSSION: Recommend to continue current management and continue symptomatic treatment. Otherwise, the patient has multiple medical issues. I would recommend symptomatic treatment for the diarrhea at this time. I would recommend Questran. I would also recommend repeat labs. Closely follow with Infectious Disease as well as Surgery evaluation. Guarded prognosis. Further recommendations to follow. Recommend procalcitonin also. Cultures are pending. MMODL / IJN: [id number] /
[2025-02-12] MEDS: CHOLESTYRAMINE RESIN 4 GM PACKET PO SCH (13:30)
--- NOTE | 2025-02-12 13:34 | P.GSCN ---
History of Present Illness Consult date: 02/12/25 History of present illness: CHIEF COMPLAINT: Abdominal pain HISTORY OF PRESENT ILLNESS: This is a 54 female who presented to ER with abdominal pain. Patient reports having severe diarrhea for 3 days. Patient had excision of chronic inflamed skin lesion from midline abdominal wall on November 28, 2024. She had been getting home care and following up with wound care center. Patient has a small midline wound with purulent drainage. She reports pain in that area. She had a CT scan in the pelvis that reported subcutaneous stranding in the anterior abdomen some of which appears contiguous with the overlying skin service. Possible slightly improved from prior study on 01/19/2025. No drainable fluid collection or abscess. Denies any fevers. PAST MEDICAL HISTORY: COPD, CVA, Diabetes Mellitus, Deep Vein Thrombosis (DVT), GERD/Reflux, Hyperlipidemia, Hypertension, diverticulitis PAST SURGICAL HISTORY: Lower anterior resection with colostomy for diverticulitis May 2023. Colostomy reversal with incisional hernia repair and parastomal hernia repair in April 2024 MEDICATIONS: See below ALLERGIES: See below SOCIAL HISTORY: No illicit drug use. REVIEW OF SYSTEMS: CONSTITUTIONAL: Denies fever or chills. HEENT: Denies blurred vision, vision changes, or eye pain. Denies hemoptysis CARDIOVASCULAR: Denies chest pain or pressure. RESPIRATORY: No shortness of breath. GASTROINTESTINAL: See HPI for pertinent findings HEMATOLOGIC: Denies bleeding disorders. GENITOURINARY: Denies any blood in urine or increased urinary frequency. SKIN: Denies pruitis. Denies rash. PHYSICAL EXAM: VITAL SIGNS: Reviewed GENERAL: Well-developed in no acute distress. HEENT: No sclera icterus. Extraocular movements grossly intact. Moist buccal mucosa. Head is atraumatic, normocephalic. No nasal drainage. ABDOMEN: Soft. Nondistended. Midline small subcutaneous wound with purulent drainage. Tenderness to palpation NEUROLOGIC: Alert and oriented. Cranial nerves II through XII grossly intact. LABORATORY DATA: WBC 9.84 Hgb 14.5 platelets 176 Sodium 134 potassium 3.9 creatinine 0.42 Glucose 213 Stool for C. difficile negative IMAGING: CT scan findings as stated above ASSESSMENT: 1. Small subcutaneous abdominal wound with purulent drainage PLAN: - No surgical intervention planned - Wound was packed. Note the patient has had a chronic wound. This is not an incisional dehiscence. - Continue local wound care - Antibiotics per infectious disease Physician Responder note has been reviewed by physician. Signing provider agrees with the documented findings, assessment, and plan of care. Past Medical History Past Medical History: COPD, CVA/TIA, Diabetes Mellitus, Deep Vein Thrombosis (DVT), GERD/Reflux, Hyperlipidemia, Hypertension Additional Past Medical History / Comment(s): CVA 2019- expressive aphasia; 2 DVT's; diverticulitis; hernia History of Any Multi-Drug Resistant Organisms: MRSA Year Discovered:: 09/03/23 MDRO Source:: Groin Past Surgical History: Bowel Resection Additional Past Surgical History / Comment(s): IVC FILTER 2013. ileostomy. wound vac. ileostomy reversal with hernia repair, with ovary removal-Apr 2024. Past Anesthesia/Blood Transfusion Reactions: No Reported Reaction Past Psychological History: Depression, PTSD Smoking Status: Current every day smoker Past Alcohol Use History: None Reported Additional Past Alcohol Use History / Comment(s): smokes 1 ppd since age 18 Past Drug Use History: None Reported Medications and Allergies Home Medications Medication Instructions Recorded Confirmed Type Insulin Glargine,Hum.rec.anlog 62 unit SQ DAILY 08/04/21 02/11/25 History [Lantus Solostar Pen] hydroCHLOROthiazide [Hydrodiuril] 12.5 mg PO DAILY 08/04/21 02/11/25 History busPIRone HCL 15 mg PO TID 03/14/23 02/11/25 History traZODone HCL 150 mg PO HS 03/14/23 02/11/25 History Gabapentin 800 mg PO TID 3 Days #9 tab 07/12/23 02/11/25 Rx Atorvastatin [Lipitor] 80 mg PO DAILY 08/07/23 02/11/25 History Apixaban [Eliquis] 5 mg PO BID 05/03/24 02/11/25 History Famotidine 40 mg PO DAILY 05/03/24 02/11/25 History cloNIDine HCL 0.05 mg PO BID 05/03/24 02/11/25 History HYDROcodone/APAP 10-325MG [[place] 1 tab PO TID PRN 11/22/24 02/11/25 History 10-325] Potassium Chloride ER [K-Dur 20] 20 meq PO DAILY 11/22/24 02/11/25 History Insulin Aspart [NovoLOG Flexpen] See Protocol SQ AC-TID 02/11/25 02/11/25 History Insulin Glargine,Hum.rec.anlog 12 units SQ HS 02/11/25 02/11/25 History [Lantus Solostar Pen] lisinopriL 30 mg PO DAILY 02/11/25 02/11/25 History Allergies Allergy/AdvReac Type Severity Reaction Status Date / Time ceftriaxone [From Rocephin] Allergy Rash/Hives Verified 02/11/25 18:52 Surgical - Exam Vital Signs Temp Pulse Resp BP Pulse Ox 98.3 F 73 16 150/102 97 02/11/25 13:59 02/11/25 13:59 02/11/25 13:59 02/11/25 13:59 02/11/25 13:59 Results - Labs 02/11/25 14:31 02/11/25 14:31 Abnormal Lab Results - Last 24 Hours (Table) 02/11/25 02/11/25 02/12/25 Range/Units 14:31 21:39 06:16 Sodium 134 L (137-145) mmol/L Carbon Dioxide 19 L (22-30) mmol/L Creatinine 0.42 L (0.52-1.04) mg/dL Glucose 290 H (74-99) mg/dL POC Glucose (mg/dL) 217 H 373 H (70-110) mg/dL Alkaline Phosphatase 153 H (38-126) U/L 02/12/25 02/12/25 Range/Units 07:01 11:24 Sodium (137-145) mmol/L Carbon Dioxide (22-30) mmol/L Creatinine (0.52-1.04) mg/dL Glucose (74-99) mg/dL POC Glucose (mg/dL) 354 H 213 H (70-110) mg/dL Alkaline Phosphatase (38-126) U/L Microbiology - Last 24 Hours (Table) 02/11/25 18:23 Gram Stain - Preliminary Abdomen Diabetes panel 02/11/25 Range/Units 14:31 Sodium 134 L (137-145) mmol/L Potassium 3.9 (3.5-5.1) mmol/L Chloride 101 (98-107) mmol/L Carbon Dioxide 19 L (22-30) mmol/L BUN 12 (7-17) mg/dL Creatinine 0.42 L (0.52-1.04) mg/dL Glucose 290 H (74-99) mg/dL Calcium 9.8 (8.4-10.2) mg/dL AST 20 (14-36) U/L ALT 23 (4-34) U/L Alkaline Phosphatase 153 H (38-126) U/L Total Protein 7.4 (6.3-8.2) g/dL Albumin 4.3 (3.5-5.0) g/dL Calcium panel 02/11/25 Range/Units 14:31 Calcium 9.8 (8.4-10.2) mg/dL Albumin 4.3 (3.5-5.0) g/dL Pituitary panel 02/11/25 Range/Units 14:31 Sodium 134 L (137-145) mmol/L Potassium 3.9 (3.5-5.1) mmol/L Chloride 101 (98-107) mmol/L Carbon Dioxide 19 L (22-30) mmol/L BUN 12 (7-17) mg/dL Creatinine 0.42 L (0.52-1.04) mg/dL Glucose 290 H (74-99) mg/dL Calcium 9.8 (8.4-10.2) mg/dL Adrenal panel 02/11/25 Range/Units 14:31 Sodium 134 L (137-145) mmol/L Potassium 3.9 (3.5-5.1) mmol/L Chloride 101 (98-107) mmol/L Carbon Dioxide 19 L (22-30) mmol/L BUN 12 (7-17) mg/dL Creatinine 0.42 L (0.52-1.04) mg/dL Glucose 290 H (74-99) mg/dL Calcium 9.8 (8.4-10.2) mg/dL Total Bilirubin 0.8 (0.2-1.3) mg/dL AST 20 (14-36) U/L ALT 23 (4-34) U/L Alkaline Phosphatase 153 H (38-126) U/L Total Protein 7.4 (6.3-8.2) g/dL Albumin 4.3 (3.5-5.0) g/dL
[2025-02-12 13:47] LABS: Appearance,Urine Clear (Clear); Bilirubin,Urine Negative (Negative); Blood,Urine Negative (Negative); Color,Urine Yellow; Glucose,Urine (UA) 4+ (Negative); Hyaline Casts,Urine 1 /lpf (0-2); Ketones,Urine Negative (Negative); Leukocyte Esterase,Urine Small (Negative); Mucus,Urine Rare /hpf; Nitrite,Urine Negative (Negative); Protein,Urine Trace (Negative); RBC,Urine 1 /hpf (0-5); Specific Gravity,Urine 1.034 (1.001-1.035); Squamous Epithelial Cell,Urine 2 /hpf (0-4); WBC,Urine 3 /hpf (0-5)
[2025-02-12 14:01] LABS: Amphetamine Screen,Urine Not Detected (NotDetected); Barbiturate Screen,Urine Not Detected (NotDetected); Benzodiazepines Screen,Urine Not Detected (NotDetected); Cocaine Screen,Urine Not Detected (NotDetected); Methadone Screen, Urine Not Detected (NotDetected); Opiate Screen,Urine Detected (NotDetected); Oxycodone Screen, Urine Not Detected (NotDetected); Phencyclidine Screen,Urine Not Detected (NotDetected); Tricyclic Antidepressant,Urine Not Detected (NotDetected); Urn Cannabinoid Scrn Not Detected (NotDetected)
[2025-02-12] MEDS: CEFEPIME 2 GM in SODIUM CHLORIDE 0.9% 100 ML IVPB SCH (16:02)
[2025-02-12 16:40] LABS: Glucose,Whole Blood 247 mg/dL (70-110)
[2025-02-12 20:04] LABS: Glucose,Whole Blood 340 mg/dL (70-110)
[2025-02-12] MEDS: HYDROcodone/APAP 7.5-325MG 1 EACH TAB PO PRN (20:22)
--- NOTE | 2025-02-12 22:50 | P.CONS ---
History of Present Illness - Reason for Consult Consult date: 02/12/25 Colitis Requesting physician: Danna Saeed - Chief Complaint Abdominal pain and purulent drainage from the wound x days - History of Present Illness Patient is a 54-year-old female with a past medical history significant for COPD CVA TIA diabetes mellitus DVT hypertension hyperlipidemia patient did have a history of chronic nonhealing wound to the midline abdominal area that was surgically debrided back in November 2024 culture did grew MSSA Proteus and Pseudomonas patient was treated with IV subsequently finishing course of oral antibiotics patient mention her wound was healing however she noticed have increasing pain and purulent drainage from her midline abdominal wall patient describes the pain to be sharp moderate to severe intensity without radiation with associated drainage denies high-grade fever on presentation to the hospital patient was afebrile and no fever have recorded subsequently patient was not tachycardic hypotensive or hypoxic patient did have a white count of 9.84 creatinine 0.42 liver enzymes normal urine has been negative urine testing positive for opiates stool for C. difficile negative patient did have a abdominal pelvis CT which did show subcutaneous stranding in the anterior abdominal some of which appears continuous with the overlying skin surface slightly improved no drainable abscess patient has been admitted to hospital infectious disease was consulted for colitis Review of Systems Positive point and negatives has been mentioned in the HPI, complete review of systems was performed and all other systems are negative Past Medical History Past Medical History: COPD, CVA/TIA, Diabetes Mellitus, Deep Vein Thrombosis (DVT), GERD/Reflux, Hyperlipidemia, Hypertension Additional Past Medical History / Comment(s): CVA 2019- expressive aphasia; 2 DVT's; diverticulitis; hernia History of Any Multi-Drug Resistant Organisms: MRSA Year Discovered:: 09/03/23 MDRO Source:: Groin Past Surgical History: Bowel Resection Additional Past Surgical History / Comment(s): IVC FILTER 2013. ileostomy. wound vac. ileostomy reversal with hernia repair, with ovary removal-Apr 2024. Past Anesthesia/Blood Transfusion Reactions: No Reported Reaction Past Psychological History: Depression, PTSD Smoking Status: Current every day smoker Past Alcohol Use History: None Reported Additional Past Alcohol Use History / Comment(s): smokes 1 ppd since age 18 Past Drug Use History: None Reported Medications and Allergies Home Medications Medication Instructions Recorded Confirmed Type Insulin Glargine,Hum.rec.anlog 62 unit SQ DAILY 08/04/21 02/11/25 History [Lantus Solostar Pen] hydroCHLOROthiazide [Hydrodiuril] 12.5 mg PO DAILY 08/04/21 02/11/25 History busPIRone HCL 15 mg PO TID 03/14/23 02/11/25 History traZODone HCL 150 mg PO HS 03/14/23 02/11/25 History Gabapentin 800 mg PO TID 3 Days #9 tab 07/12/23 02/11/25 Rx Atorvastatin [Lipitor] 80 mg PO DAILY 08/07/23 02/11/25 History Apixaban [Eliquis] 5 mg PO BID 05/03/24 02/11/25 History Famotidine 40 mg PO DAILY 05/03/24 02/11/25 History cloNIDine HCL 0.05 mg PO BID 05/03/24 02/11/25 History HYDROcodone/APAP 10-325MG [[place] 1 tab PO TID PRN 11/22/24 02/11/25 History 10-325] Potassium Chloride ER [K-Dur 20] 20 meq PO DAILY 11/22/24 02/11/25 History Insulin Aspart [NovoLOG Flexpen] See Protocol SQ AC-TID 02/11/25 02/11/25 History Insulin Glargine,Hum.rec.anlog 12 units SQ HS 02/11/25 02/11/25 History [Lantus Solostar Pen] lisinopriL 30 mg PO DAILY 02/11/25 02/11/25 History Allergies Allergy/AdvReac Type Severity Reaction Status Date / Time ceftriaxone [From Rocepwin] Allergy Rash/Hives Verified 02/11/25 18:52 Physical Exam Vitals: Vital Signs Temp Pulse Pulse Resp BP BP Pulse Ox 02/12/25 07:00 98.6 F 81 18 110/71 96 02/12/25 02:00 98.5 F 68 17 112/71 94 L 02/11/25 21:00 98.1 F 80 17 121/88 94 L 02/11/25 20:50 79 20 144/97 98 02/11/25 20:06 79 20 136/96 95 02/11/25 18:25 80 20 144/97 95 02/11/25 13:59 98.3 F 73 16 150/102 97 Intake and Output 02/11/25 02/12/25 02/12/25 22:59 06:59 14:59 Other: # Voids 2 Weight 72.575 kg GENERAL DESCRIPTION: Middle-age female lying in bed, no distress. No tachypnea or accessory muscle of respiration use. HEENT: Shows Pallor , no scleral icterus. Oral mucous membrane is dry. NECK: Trachea central, no thyromegaly. LUNGS: Unlabored breathing. Clear to auscultation anteriorly. No wheeze or crackle. HEART: S1, S2, regular rate and rhythm. No loud murmur ABDOMEN: Soft, midline abdominal which has decreased in size on probing was mostly bloody secretion no purulence was noticed EXTREMITIES: No edema of feet. SKIN: No rash, no masses palpable. NEUROLOGICAL: The patient is awake, alert, oriented x3, mood and affect normal. Results CBC & Chem 7: 02/11/25 14:31 02/11/25 14:31 Labs: Abnormal Lab Results - Last 24 Hours (Table) 02/11/25 02/11/25 02/12/25 Range/Units 14:31 21:39 06:16 Sodium 134 L (137-145) mmol/L Carbon Dioxide 19 L (22-30) mmol/L Creatinine 0.42 L (0.52-1.04) mg/dL Glucose 290 H (74-99) mg/dL POC Glucose (mg/dL) 217 H 373 H (70-110) mg/dL Alkaline Phosphatase 153 H (38-126) U/L 02/12/25 Range/Units 07:01 Sodium (137-145) mmol/L Carbon Dioxide (22-30) mmol/L Creatinine (0.52-1.04) mg/dL Glucose (74-99) mg/dL POC Glucose (mg/dL) 354 H (70-110) mg/dL Alkaline Phosphatase (38-126) U/L Microbiology - Last 24 Hours (Table) 02/11/25 18:23 Gram Stain - Preliminary Abdomen Assessment and Plan (1) Abdominal wall abscess Current Visit: No Status: Acute Code(s): L02.211 - CUTANEOUS ABSCESS OF ABDOMINAL WALL SNOMED Code(s): 38154272 (2) Abnormal CT of the abdomen Current Visit: No Status: Acute Code(s): R93.5 - ABN FINDINGS ON DX IMAGING OF ABD REGIONS, INC RETROPERITON SNOMED Code(s): 07864306734683290 Plan: 1patient presented hospital predominantly with the anterior abdominal wall pain with the purulent drainage from her midline abdominal wound and this patient has been previously debrided with a culture positive for MSSA Pseudomonas and Proteus back in November [address] does not show any evidence of colitis or drainable abdominal abscess 2-patient did have ceftriaxone allergy however she has tolerated cefepime without any problems 3-local wound care with Aquacel silver packing of the wound. 4we will start the patient with cefepime 2 g every 8 hours and see clinical response while waiting for the culture to finalize We will follow on clinical condition and cultures to further adjust medication if needed Thank you for this consultation we will follow the patient along with you Dictation was produced using [employer] dictation software. please excuse any grammatical, word or spelling errors. Time with Patient: Greater than 30
[2025-02-13 06:03] LABS: Glucose,Whole Blood 295 mg/dL (70-110)
[2025-02-13 08:42] LABS: Blood Urea Nitrogen 20.4 mg/dL (9.0-27.0); Calcium 8.7 mg/dL (8.7-10.3); Carbon Dioxide 19.1 mmol/L (21.6-31.8); Chloride 99 mmol/L (96-109); Glucose 260 mg/dL (70-110); Potassium 3.9 mmol/L (3.5-5.5); Sodium 133 mmol/L (135-145)
[2025-02-13 08:53] LABS: Basophils # (A) 0.05 X 10*3/uL (0.00-0.10); Basophils % (A) 0.6 %; Eosinophils # (A) 0.11 X 10*3/uL (0.04-0.35); Eosinophils % (A) 1.2 %; HCT 42.4 % (37.2-46.3); Lymphocytes % (A) 19.1 %; MCH 30.4 pg (27.0-32.0); MCV 92.2 FL (80.0-97.0); Mean Platelet Volume 11.4 FL (9.5-12.2); Monocytes # (A) 0.65 X 10*3/uL (0.20-1.00); Monocytes % (A) 7.3 %; NRBC Per 100 WBC 0 X 10*3/uL (0.00-0.01); Platelet Count 183 X 10*3/uL (140-440); RDW 13.2 % (11.5-14.5); WBC 8.88 X 10*3/uL (4.50-10.00)
[2025-02-13] MEDS: ATORVASTATIN 80 MG TAB PO SCH (09:01)
[2025-02-13] MEDS: POTASSIUM CHLORIDE ER 20 MEQ TAB.ER PO SCH (09:01)
[2025-02-13] MEDS: lisinopriL 10 MG TAB PO SCH (09:02)
--- NOTE | 2025-02-13 10:17 | P.PN ---
Subjective Progress Note Date: 02/13/25 Patient is stable. Her dressing was changed last night. On exam vital signs were stable. Abdomen soft. Small chronic wound. Patient will continue wound care packing. Objective - Vital Signs Vital signs: Vital Signs Temp 98.8 F 02/13/25 07:10 Pulse 73 02/13/25 07:10 Resp 17 02/13/25 07:10 BP 123/82 02/13/25 07:10 Pulse Ox 94 L 02/13/25 07:10 FiO2 Intake & Output 02/12/25 02/13/25 02/13/25 18:59 06:59 18:59 Intake Total 1060 900 Balance 1060 900 Intake: Intake, IV Titration 100 100 Amount Cefepime 2 gm In Sodium 100 100 Chloride 0.9% 100 ml @ 25 mls/hr IVPB Q8HR [facility] Rx# :[id number] Oral 960 800 Other: # Voids 4 3 # Bowel Movements 1 0 - Labs CBC & Chem 7: 02/13/25 03:38 02/13/25 03:31 Labs: Abnormal Lab Results - Last 24 Hours (Table) 02/12/25 02/12/25 02/12/25 Range/Units 11:24 13:34 16:39 Immature Gran # (0.00-0.04) X 10*3/uL Sodium (135-145) mmol/L Carbon Dioxide (21.6-31.8) mmol/L Anion Gap (4.00-12.00) mmol/L Creatinine (0.6-1.5) mg/dL BUN/Creatinine Ratio (12.00-20.00) Ratio Glucose (70-110) mg/dL POC Glucose (mg/dL) 213 H 247 H (70-110) mg/dL Urine Protein Trace H (Negative) Urine Glucose (UA) 4+ H (Negative) Ur Leukocyte Esterase Small H (Negative) Urine Mucus Rare H (None) /hpf Urine Opiates Screen Detected H (NotDetected) 02/12/25 02/13/25 02/13/25 Range/Units 20:03 03:31 03:38 Immature Gran # 0.07 H (0.00-0.04) X 10*3/uL Sodium 133 L (135-145) mmol/L Carbon Dioxide 19.1 L (21.6-31.8) mmol/L Anion Gap 14.90 H (4.00-12.00) mmol/L Creatinine 0.5 L (0.6-1.5) mg/dL BUN/Creatinine Ratio 40.80 H (12.00-20.00) Ratio Glucose 260 H (70-110) mg/dL POC Glucose (mg/dL) 340 H (70-110) mg/dL Urine Protein (Negative) Urine Glucose (UA) (Negative) Ur Leukocyte Esterase (Negative) Urine Mucus (None) /hpf Urine Opiates Screen (NotDetected) 02/13/25 Range/Units 06:01 Immature Gran # (0.00-0.04) X 10*3/uL Sodium (135-145) mmol/L Carbon Dioxide (21.6-31.8) mmol/L Anion Gap (4.00-12.00) mmol/L Creatinine (0.6-1.5) mg/dL BUN/Creatinine Ratio (12.00-20.00) Ratio Glucose (70-110) mg/dL POC Glucose (mg/dL) 295 H (70-110) mg/dL Urine Protein (Negative) Urine Glucose (UA) (Negative) Ur Leukocyte Esterase (Negative) Urine Mucus (None) /hpf Urine Opiates Screen (NotDetected) Microbiology - Last 24 Hours (Table) 02/11/25 18:55 Blood Culture - Preliminary Blood 02/11/25 18:23 Gram Stain - Preliminary Abdomen
[2025-02-13 11:24] LABS: Glucose,Whole Blood 254 mg/dL (70-110)
--- NOTE | 2025-02-13 15:54 | P.PN ---
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 On today's evaluation that is 02/13/2025, the patient continues to be afebrile, the patient is on room air and breathing comfortably, the Pt denies having any chest pain or cough, the patient denies having any nausea vomiting and no diarrhea mention abdominal pain slightly decreased. Patient white count is 8.8, creatinine 0.5 abdominal culture currently growing presumptive Staph aureus Objective - Vital Signs Vital signs: Vital Signs Temp 98.5 F 02/13/25 13:12 Pulse 86 02/13/25 13:12 Resp 18 02/13/25 13:12 BP 115/78 02/13/25 13:12 Pulse Ox 95 02/13/25 13:12 FiO2 Intake & Output 02/12/25 02/13/25 02/13/25 18:59 06:59 18:59 Intake Total 1060 900 Balance 1060 900 Intake: Intake, IV Titration 100 100 Amount Cefepime 2 gm In Sodium 100 100 Chloride 0.9% 100 ml @ 25 mls/hr IVPB Q8HR [facility] Rx# :[id number] Oral 960 800 Other: # Voids 4 3 # Bowel Movements 1 0 - Exam GENERAL DESCRIPTION: Middle-age female lying in bed in no distress RESPIRATORY SYSTEM: Unlabored breathing , decreased breath sounds at bases HEART: S1 S2 regular rate and rhythm , ABDOMEN: Soft , abdominal wound is currently dressed EXTREMITIES: No edema feet - Labs CBC & Chem 7: 02/13/25 03:38 02/13/25 03:31 Labs: Abnormal Lab Results - Last 24 Hours (Table) 02/12/25 02/12/25 02/13/25 Range/Units 16:39 20:03 03:31 Immature Gran # (0.00-0.04) X 10*3/uL Sodium 133 L (135-145) mmol/L Carbon Dioxide 19.1 L (21.6-31.8) mmol/L Anion Gap 14.90 H (4.00-12.00) mmol/L Creatinine 0.5 L (0.6-1.5) mg/dL BUN/Creatinine Ratio 40.80 H (12.00-20.00) Ratio Glucose 260 H (70-110) mg/dL POC Glucose (mg/dL) 247 H 340 H (70-110) mg/dL 02/13/25 02/13/25 02/13/25 Range/Units 03:38 06:01 11:23 Immature Gran # 0.07 H (0.00-0.04) X 10*3/uL Sodium (135-145) mmol/L Carbon Dioxide (21.6-31.8) mmol/L Anion Gap (4.00-12.00) mmol/L Creatinine (0.6-1.5) mg/dL BUN/Creatinine Ratio (12.00-20.00) Ratio Glucose (70-110) mg/dL POC Glucose (mg/dL) 295 H 254 H (70-110) mg/dL Microbiology - Last 24 Hours (Table) 02/11/25 18:23 Gram Stain - Preliminary Abdomen Wound Culture - Preliminary Presumptive Staph aureus 02/12/25 02:00 Stool Culture - Preliminary Stool 02/11/25 18:55 Blood Culture - Preliminary Blood Assessment and Plan (1) Abdominal wall abscess Current Visit: No Status: Acute Code(s): L02.211 - CUTANEOUS ABSCESS OF ABDOMINAL WALL SNOMED Code(s): 13270032 (2) Abnormal CT of the abdomen Current Visit: No Status: Acute Code(s): R93.5 - ABN FINDINGS ON DX IMAGING OF ABD REGIONS, INC RETROPERITON SNOMED Code(s): 75927232629209680 Plan: 1patient presented hospital predominantly with the anterior abdominal wall pain with the purulent drainage from her midline abdominal wound and this patient has been previously debrided with a culture positive for MSSA Pseudomonas and Proteus back in November [address] does not show any evidence of colitis or drainable abdominal abscess 2-patient did have ceftriaxone allergy however she has tolerated cefepime without any problems 3-local wound care with Aquacel silver packing of the wound. 4patient abdominal culture currently growing Staph aureus with sensitivities pending continue with the cefepime while waiting for the culture to finalize Dictation was produced using [employer] dictation software. please excuse any grammatical, word or spelling errors. Time with Patient: Less than 30
[2025-02-13 16:34] LABS: Glucose,Whole Blood 213 mg/dL (70-110)
[2025-02-13 21:16] LABS: Glucose,Whole Blood 262 mg/dL (70-110)
[2025-02-13] MEDS: INSULIN GLARGINE (LANTUS) 100 UNIT/ML SYR SQ SCH (21:18)
[2025-02-14 05:00] VITALS: RESP 18
[2025-02-14 06:01] LABS: Glucose,Whole Blood 234 mg/dL (70-110)
[2025-02-14 08:27] LABS: Basophils # (A) 0.06 10*3/uL (0.00-0.10); Basophils % (A) 1.1 %; Eosinophils # (A) 0.14 10*3/uL (0.04-0.35); Eosinophils % (A) 2.6 %; HCT 40.8 % (37.2-46.3); HGB 13.4 g/dL (12.0-15.0); Lymphocytes # (A) 1.01 10*3/uL (0.90-5.00); Lymphocytes % (A) 18.9 %; MCH 30.3 pg (27.0-32.0); MCHC 32.8 g/dL (32.0-37.0); MCV 92.3 fL (80.0-97.0); Mean Platelet Volume 10.7 fL (9.5-12.2); Monocytes # (A) 0.45 10*3/uL (0.20-1.00); Monocytes % (A) 8.4 %; Neutrophils # (A) 3.66 10*3/uL (1.80-7.70); Neutrophils % (A) 68.4 %; Platelet Count 168 10*3/uL (140-440); RBC 4.42 10*6/uL (4.10-5.20); RDW 13.1 % (11.5-14.5); WBC 5.35 10*3/uL (4.50-10.00)
[2025-02-14 08:39] LABS: ALT 16 U/L (4-34); AST 20 U/L (14-36); African American GFR (CKD) >90 (>60 ml/min/1.73 sqM); Albumin 3.6 g/dL (3.5-5.0); Albumin/Globulin Ratio 1.3; Alkaline Phosphatase 124 U/L (38-126); Anion Gap 8 mmol/L; Blood Urea Nitrogen 16 mg/dL (7-17); Carbon Dioxide 19 mmol/L (22-30); Chloride 110 mmol/L (98-107); Globulin 2.7 g/dL; Glucose 220 mg/dL (74-99); Magnesium 1.8 mg/dL (1.6-2.3); Non-African American GFR(CKD) >90 (>60 ml/min/1.73 sqM); Potassium 4.2 mmol/L (3.5-5.1); Sodium 137 mmol/L (137-145); Total Bilirubin 0.7 mg/dL (0.2-1.3); Total Protein 6.3 g/dL (6.3-8.2)
--- NOTE | 2025-02-14 10:05 | P.PN ---
Subjective Progress Note Date: 02/13/25 This is a 54-year-old female who was recently admitted with abdominal pain with concerns of wound dehiscence and continued purulent drainage noted from the surgical site. Patient being followed by general surgery and infectious disease maintained on antibiotics while awaiting cultures. Patient has had this chronic ongoing open wound in the upper abdomen from previous surgery with general surgery following this admission no plans of surgical intervention recommended to continue with wound care and antibiotics. Cultures preliminary showing presumptive staph and awaiting finalized cultures to determine appropriate antibiotics. Family is also concerned that patient is not taking care of herself at home. Family and patient reports she has home care that comes to the home and a visiting physician that comes once a month. Patient also continues with significant pain and has history of chronic pain. Patient is afebrile with no reports of chest pain or shortness of breath. Patient has been encouraged to increase activity as tolerated. Review of systems: Constitutional: No reports of fatigue, fever, or chills Cardiovascular: No reports of chest pain or palpitations Respiratory: No reports of shortness of breath or cough GI: No reports of nausea, no reports of vomiting, less diarrhea : No reports of dysuria or retention Neurovascular: reports of generalized weakness All medications have been reviewed PHYSICAL EXAMINATION: GENERAL: The patient is alert and oriented x2, baseline well developed, well nourished. Appears older than stated HEENT: Pupils are round and equally reacting to light. EOMI. no scleral icterus. No conjunctival pallor. Normocephalic, atraumatic. No pharyngeal erythema. No thyromegaly. CARDIOVASCULAR: S1 and S2 muffled PULMONARY: diminished breath sounds bilaterally with no wheezing or rhonchi noted. ABDOMEN: soft. tender on exam. Upper previous surgical site continues to be open with clear drainage noted, dressing has been applied and currently intact. Non-distended, normoactive bowel sounds. No palpable organomegaly. MUSCULOSKELETAL: No joint swelling or deformity. EXTREMITIES: No cyanosis, clubbing, or pedal edema. NEUROLOGICAL: Gross neurological examination did not reveal any focal deficits. Diffuse weakness SKIN: No rashes. Assessment: Loose stools with diarrhea possibly infectious diarrhea or antibiotic induced diarrhea, C. difficile ruled out Colostomy reversal and wound dehiscence drainage, previously Concerns of possible abdominal wall cellulitis, present Chronic obstructive pulmonary disease, not in exacerbation Diabetes mellitus, type II, uncontrolled with hyperglycemia GERD History of CVA with expressive aphasia Hypertension Hyperlipidemia Hyponatremia Poor social support History of depression/PTSD Continued ongoing nicotine dependence With general surgery and infectious disease following. General surgery with no plans of surgical intervention recommends to continue with local wound care to the upper abdominal previous incision site with old opening history of DVT GI prophylaxis DVT prophylaxis Full code Plan: Recommend to continue with current medications and management with general surgery and infectious disease following. General surgery has evaluated the patient with no plans of surgical intervention at this time recommending continuing with local wound care and monitoring the previous incision site with the continued open wound. Infectious disease following and awaiting cultures to finalize with determine appropriate antibiotics. Preliminary culture showing presumptive staph and will need to await cultures to determine discharge antibiotics Encouraged increased activity as tolerated Discussed with case management/social work regarding discharge planning as family is concerned she is not taking care of herself at home. Patient has continued home care 3 times a week and reports she has a visiting physician that comes once a month. Patient continues with pain we will adjust pain medications accordingly Encourage increase activity as tolerated Will discuss with consultations regarding discharge planning once cultures have finalized The impression and plan of care has been dictated by Jennifer Thakkar, nurse practitioner as directed. Dr. Sharlene MD I have performed a history and examination and MDM of this patient, discussed the same with the dictator, and agree with the dictator's assessment and plan as written ,documented as a scribe. Based on total visit time, I have performed more than 50% of the visit. Any additional findings or plans will be noted. Objective - Vital Signs Vital signs: Vital Signs Temp 97.9 F 02/14/25 00:26 Pulse 79 02/14/25 04:59 Resp 18 02/14/25 04:59 BP 101/65 02/14/25 04:59 Pulse Ox 96 02/14/25 04:59 FiO2 Intake & Output 02/13/25 02/14/25 02/14/25 18:59 06:59 18:59 Other: # Voids 4 2 - Labs CBC & Chem 7: 02/14/25 05:29 02/14/25 05:29 Labs: Abnormal Lab Results - Last 24 Hours (Table) 02/13/25 02/13/25 02/13/25 Range/Units 11:23 16:33 21:14 Chloride (98-107) mmol/L Carbon Dioxide (22-30) mmol/L Creatinine (0.52-1.04) mg/dL Glucose (74-99) mg/dL POC Glucose (mg/dL) 254 H 213 H 262 H (70-110) mg/dL 02/14/25 02/14/25 Range/Units 05:29 05:59 Chloride 110 H (98-107) mmol/L Carbon Dioxide 19 L (22-30) mmol/L Creatinine 0.47 L (0.52-1.04) mg/dL Glucose 220 H (74-99) mg/dL POC Glucose (mg/dL) 234 H (70-110) mg/dL Microbiology - Last 24 Hours (Table) 02/11/25 18:23 Gram Stain - Final Abdomen Wound Culture - Final Staphylococcus aureus 02/12/25 02:00 Stool Culture - Preliminary Stool 02/11/25 18:55 Blood Culture - Preliminary Blood
--- NOTE | 2025-02-14 10:06 | P.PN ---
Subjective Progress Note Date: 02/14/25 Patient remained stable. She is requesting pain meds for her dressing changes. On exam vital signs appear stable. Abdomen is soft. There is decreased drainage from her wound. Patient has a chronic abdominal wall wound. She will continue to have local wound care. Objective - Vital Signs Vital signs: Vital Signs Temp 97.9 F 02/14/25 00:26 Pulse 79 02/14/25 04:59 Resp 18 02/14/25 04:59 BP 101/65 02/14/25 04:59 Pulse Ox 96 02/14/25 04:59 FiO2 Intake & Output 02/13/25 02/14/25 02/14/25 18:59 06:59 18:59 Other: # Voids 4 2 - Labs CBC & Chem 7: 02/14/25 05:29 02/14/25 05:29 Labs: Abnormal Lab Results - Last 24 Hours (Table) 02/13/25 02/13/25 02/13/25 Range/Units 11:23 16:33 21:14 Chloride (98-107) mmol/L Carbon Dioxide (22-30) mmol/L Creatinine (0.52-1.04) mg/dL Glucose (74-99) mg/dL POC Glucose (mg/dL) 254 H 213 H 262 H (70-110) mg/dL 02/14/25 02/14/25 Range/Units 05:29 05:59 Chloride 110 H (98-107) mmol/L Carbon Dioxide 19 L (22-30) mmol/L Creatinine 0.47 L (0.52-1.04) mg/dL Glucose 220 H (74-99) mg/dL POC Glucose (mg/dL) 234 H (70-110) mg/dL Microbiology - Last 24 Hours (Table) 02/11/25 18:23 Gram Stain - Final Abdomen Wound Culture - Final Staphylococcus aureus 02/12/25 02:00 Stool Culture - Preliminary Stool 02/11/25 18:55 Blood Culture - Preliminary Blood
[2025-02-14 10:20] VITALS: BP 134/89; PULSE 69; TEMP 97.7
[2025-02-14] MEDS: HYDROcodone/APAP 10-325MG 1 EACH TAB PO PRN (11:01)
[2025-02-14 11:30] LABS: Glucose,Whole Blood 176 mg/dL (70-110)
--- NOTE | 2025-02-14 15:05 | P.PN ---
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 On today's evaluation that is 02/15/2024, patient did have a temperature of 98 F this morning and denies having any chills, patient is on room air and breathing comfortably no chest pain or cough, the patient did not have any nausea vomiting some improvement abdominal pain no diarrhea. Patient white count is 5.35, creatinine 0.47 local culture with MSSA Objective - Vital Signs Vital signs: Vital Signs Temp 97.7 F 02/14/25 07:08 Pulse 69 02/14/25 07:08 Resp 18 02/14/25 07:08 BP 134/89 02/14/25 07:08 Pulse Ox 95 02/14/25 07:08 FiO2 Intake & Output 02/13/25 02/14/25 02/14/25 18:59 06:59 18:59 Other: # Voids 4 2 - Exam GENERAL DESCRIPTION: Middle-age female lying in bed in no distress RESPIRATORY SYSTEM: Unlabored breathing , decreased breath sounds at bases HEART: S1 S2 regular rate and rhythm , ABDOMEN: Soft , abdominal wound is currently dressed EXTREMITIES: No edema feet - Labs CBC & Chem 7: 02/14/25 05:29 02/14/25 05:29 Labs: Abnormal Lab Results - Last 24 Hours (Table) 02/13/25 02/13/25 02/14/25 Range/Units 16:33 21:14 05:29 Chloride 110 H (98-107) mmol/L Carbon Dioxide 19 L (22-30) mmol/L Creatinine 0.47 L (0.52-1.04) mg/dL Glucose 220 H (74-99) mg/dL POC Glucose (mg/dL) 213 H 262 H (70-110) mg/dL 02/14/25 02/14/25 Range/Units 05:59 11:29 Chloride (98-107) mmol/L Carbon Dioxide (22-30) mmol/L Creatinine (0.52-1.04) mg/dL Glucose (74-99) mg/dL POC Glucose (mg/dL) 234 H 176 H (70-110) mg/dL Microbiology - Last 24 Hours (Table) 02/11/25 18:23 Gram Stain - Final Abdomen Wound Culture - Final Staphylococcus aureus 02/12/25 02:00 Stool Culture - Preliminary Stool 02/11/25 18:55 Blood Culture - Preliminary Blood Assessment and Plan (1) Abdominal wall abscess Status: Acute Code(s): L02.211 - CUTANEOUS ABSCESS OF ABDOMINAL WALL SNOMED Code(s): 01930517 (2) Abnormal CT of the abdomen Status: Acute Code(s): R93.5 - ABN FINDINGS ON DX IMAGING OF ABD REGIONS, INC RETROPERITON SNOMED Code(s): 33476153526021590 (3) MSSA (methicillin susceptible Staphylococcus aureus) infection Status: Acute Code(s): A49.01 - METHICILLIN SUSCEP STAPH INFECTION, UNSP SITE SNOMED Code(s): 497974281 Plan: 1patient presented hospital predominantly with the anterior abdominal wall pain with the purulent drainage from her midline abdominal wound and this patient has been previously debrided with a culture positive for MSSA Pseudomonas and Proteus back in November [address] does not show any evidence of colitis or drainable abdominal abscess 2-patient did have ceftriaxone allergy however she has tolerated cefepime without any problems 3-local wound care with Aquacel silver packing of the wound. 4patient abdominal culture currently growing MSSA antibiotic switch over to cefazolin with a plan to finish therapy with oral Keflex and close outpatient follow-up Dictation was produced using [employer] dictation software. please excuse any grammatical, word or spelling errors. Time with Patient: Less than 30
[2025-02-14] MEDS ORDERED: ceFAZolin 2 GM in DEXTROSE 5% IN WATER 50 ML IVPB SCH (16:00)
== END 2025-02-14 14:45 | disposition home health service (06) ==
LOC: EC 13:57 → 4SSUR 16:16
PROVIDERS: ADMIT Hospitalist; ATTEND Hospitalist
DX: L02.211 Cutaneous abscess of abdominal wall (principal); B95.61 Methicillin susceptible Staphylococcus aureus infection as the cause of diseases classified elsewhere; R93.5 Abnormal findings on diagnostic imaging of other abdominal regions, including retroperitoneum; E87.1 Hypo-osmolality and hyponatremia; R19.7 Diarrhea, unspecified; T81.31XA Disruption of external operation (surgical) wound, not elsewhere classified, initial encounter; Y83.8 Other surgical procedures as the cause of abnormal reaction of the patient, or of later complication, without mention of misadventure at the time of the procedure; E11.65 Type 2 diabetes mellitus with hyperglycemia; I10 Essential (primary) hypertension; J44.9 Chronic obstructive pulmonary disease, unspecified; K21.9 Gastro-esophageal reflux disease without esophagitis; E78.5 Hyperlipidemia, unspecified; F32.A Depression, unspecified; I69.320 Aphasia following cerebral infarction; F17.200 Nicotine dependence, unspecified, uncomplicated; Z60.8 Other problems related to social environment; Z86.718 Personal history of other venous thrombosis and embolism; Z79.01 Long term (current) use of anticoagulants; Z79.4 Long term (current) use of insulin; Z79.84 Long term (current) use of oral hypoglycemic drugs; Z79.899 Other long term (current) drug therapy; Z88.1 Allergy status to other antibiotic agents
CPT/HCPCS: 96376 ×5; 96365 ×2; 96366 ×2; 96375; 99285; 36415; 93005; 97161; 80053 ×2; 80048; 83690; 83735; 85025 ×3; 81001; 87040; 87324; 80306; 87070; 87205; 87045; 87077; 87186; 87046; 84145; 74018; 74176; G0378 ×4; J2405; J0692 ×3; J1171 ×5

== ENCOUNTER 2025-02-18 14:08 | Emergency (ER) | payer MEDICARE, OTHER ==
--- NOTE | 2025-02-18 15:01 | ED ---
Abdominal Pain HPI - General Source: patient, EMS, RN notes reviewed Mode of arrival: EMS Limitations: no limitations <Som Sandhu - Last Filed: 02/18/25 14:59> <Divya Hammonds - Last Filed: 02/18/25 23:15> - General Chief Complaint: Abdominal Pain Stated Complaint: Abd Pain Time Seen by Provider: 02/18/25 14:08 - History of Present Illness Initial Comments: QN -54-year-old female presents emergency department with chief complaint abdominal pain, abdominal incision drainage. Patient states she is having drai nage from her incisional site this has been ongoing for last 4 months has not had recent surgery states she had multiple surgeries prior to this. Patient has chronic abdominal issues. (Som Sandhu) 54-year-old female with history of CVA and residual aphasia presenting to the emergency department with complaints of chronic abdominal pain and postoperative abdominal incision draining. Patient has been experiencing chronic drainage from her postsurgical site over the past 4+ months in addition to chronic abdominal pain. Patient was recently admitted for similar symptoms and discharged 4 days ago and is instructed to follow-up with infectious disease and GI outpatient. States that she has been feeling nausea with no reported vomiting. Denies fevers or chills. (Divya Hammonds) - Related Data Home Medications Medication Instructions Recorded Confirmed Insulin Glargine,Hum.rec.anlog 62 unit SQ DAILY 08/04/21 02/11/25 [Lantus Solostar Pen] hydroCHLOROthiazide [Hydrodiuril] 12.5 mg PO DAILY 08/04/21 02/11/25 busPIRone HCL 15 mg PO TID 03/14/23 02/11/25 traZODone HCL 150 mg PO HS 03/14/23 02/11/25 Atorvastatin [Lipitor] 80 mg PO DAILY 08/07/23 02/11/25 Apixaban [Eliquis] 5 mg PO BID 05/03/24 02/11/25 Famotidine 40 mg PO DAILY 05/03/24 02/11/25 cloNIDine HCL 0.05 mg PO BID 05/03/24 02/11/25 HYDROcodone/APAP 10-325MG [[place] 1 tab PO TID PRN 11/22/24 02/11/25 10-325] Potassium Chloride ER [K-Dur 20] 20 meq PO DAILY 11/22/24 02/11/25 Insulin Aspart [NovoLOG Flexpen] See Protocol SQ AC-TID 02/11/25 02/11/25 Insulin Glargine,Hum.rec.anlog 12 units SQ HS 02/11/25 02/11/25 [Lantus Solostar Pen] lisinopriL 30 mg PO DAILY 02/11/25 02/11/25 Previous Rx's Medication Instructions Recorded Gabapentin 800 mg PO TID 3 Days #9 tab 07/12/23 Acetaminophen Tab [Tylenol] 650 mg PO Q6HR PRN tab 02/14/25 Cephalexin [Keflex] 500 mg PO Q8HR 14 Days #42 cap 02/14/25 Cholestyramine Resin [Questran 4 gm PO BID@1000,1800 PRN #30 02/14/25 Packet] packet Allergies Allergy/AdvReac Type Severity Reaction Status Date / Time ceftriaxone [From Rocephin] Allergy Rash/Hives Verified 02/18/25 14:21 Review of Systems ROS Other: All systems not noted in ROS Statement are negative. <Som Sandhu - Last Filed: 02/18/25 14:59> ROS Other: All systems not noted in ROS Statement are negative. <Divya Hammonds - Last Filed: 02/18/25 23:15> ROS Statement: Those systems with pertinent positive or pertinent negative responses have been documented in the HPI. Past Medical History Past Medical History: COPD, CVA/TIA, Diabetes Mellitus, Deep Vein Thrombosis (DVT), GERD/Reflux, Hyperlipidemia, Hypertension Additional Past Medical History / Comment(s): CVA 2019- expressive aphasia; 2 DVT's; diverticulitis; hernia History of Any Multi-Drug Resistant Organisms: MRSA Date of last positivie culture/infection: 09/03/23 MDRO Source:: Groin Past Surgical History: Bowel Resection Additional Past Surgical History / Comment(s): IVC FILTER 2013. ileostomy. wound vac. ileostomy reversal with hernia repair, with ovary removal-Apr 2024. Past Anesthesia/Blood Transfusion Reactions: No Reported Reaction Past Psychological History: Depression, PTSD Smoking Status: Current every day smoker Past Alcohol Use History: None Reported Past Drug Use History: None Reported <Som Sandhu - Last Filed: 02/18/25 14:59> General Exam Limitations: no limitations <Som Sandhu - Last Filed: 02/18/25 14:59> General appearance: alert, in no apparent distress Neck exam: Present: normal inspection. Absent: tenderness, meningismus, lymphadenopathy Respiratory exam: Present: normal lung sounds bilaterally. Absent: respiratory distress, wheezes, rales, rhonchi, stridor Cardiovascular Exam: Present: regular rate, normal rhythm, normal heart sounds. Absent: systolic murmur, diastolic murmur, rubs, gallop, clicks GI/Abdominal exam: Present: soft, normal bowel sounds, other (mid abdominal incisional wound, discharge from site). Absent: distended, tenderness, guarding, rebound, rigid Extremities exam: Present: normal inspection, full ROM, normal capillary refill. Absent: tenderness, pedal edema, joint swelling, calf tenderness Back exam: Present: normal inspection. Absent: CVA tenderness (R), CVA tenderness (L) <Divya Hammonds - Last Filed: 02/18/25 23:15> - General Exam Comments Initial Comments: Visual Physical Exam Vital signs reviewed General: Well-appearing, nontoxic, no acute distress. Head: Normocephalic, atraumatic Eyes: PERRLA, EOMI ENT: Airway patent Chest: Nonlabored breathing Skin: No visual rash, normal skin tone Neuro: Alert and oriented 3 Musculoskeletal: No gross abnormalities (Som Sandhu) Course Vital Signs 02/18/25 02/18/25 02/18/25 14:18 20:52 22:05 Temperature 98.2 F 98.1 F Pulse Rate 81 89 88 Respiratory 16 18 18 Rate Blood Pressure 129/89 136/101 114/88 O2 Sat by Pulse 98 96 95 Oximetry 02/18/25 22:48 Temperature 98.2 F Pulse Rate 81 Respiratory 18 Rate Blood Pressure 114/88 O2 Sat by Pulse 97 Oximetry Medical Decision Making <Som Sandhu - Last Filed: 02/18/25 14:59> <Divya Hammonds - Last Filed: 02/18/25 23:15> - Medical Decision Making I completed the quick note portion of this chart signed Som Sandhu PA-C (Som Sandhu) Was pt. sent in by a medical professional or institution (Dr. PA, SECURITY TRAINER, urgent care, hospital, or fci...) When possible be specific @ -No Did you speak to anyone other than the patient for history (EMS, parent, family, police, friend...)? What history was obtained from this source @ -No Did you review nursing and triage notes (agree or disagree)? Why? @ -I reviewed and agree with nursing and triage notes Were old charts reviewed (outside hosp., previous admission, EMS record, old EKG, old radiological studies, urgent care reports/EKG's, fci records)? Report findings @ -CT imaging of the abdomen/pelvis completed on 02/11/2025 reveals subcutaneous stranding in the anterior jayjay wall appearing contiguous with the overlying skin surface slightly improved from study on 01/19/2025 Differential Diagnosis (chest pain, altered mental status, abdominal pain women, abdominal pain men, vaginal bleeding, weakness, fever, dyspnea, syncope, headache, dizziness, GI bleed, back pain, seizure, CVA, palpatations, mental health, musculoskeletal)? @ -Differential Abdominal Pain Women: Appendicitis, Cholecystitis, diverticulosis, ischemic bowel, pancreatitis, hepatitis, UTI, gastroenteritis, AAA, incarcerated hernia, bowel obstruction, constipation, inflammatory bowel, hepatitis, peptic ulcer disease, splenic infarction, perforated viscus, vulvitis, ovarian torsion, PID, kidney stone, placenta abruption, this is not meant to be an all-inclusive list EKG interpreted by me (3pts min.). @ -None X-rays interpreted by me (1pt min.). @ -None done CT interpreted by me (1pt min.). @ -None done U/S interpreted by me (1pt. min.). @ -None done What testing was considered but not performed or refused? (CT, X-rays, U/S, labs)? Why? @ -None What meds were considered but not given or refused? Why? @ -None Did you discuss the management of the patient with other professionals (professionals i.e. , PA, SECURITY TRAINER, lab, RT, psych nurse, foster care social worker, organisational psychologist, teacher, geological technical officer, case sealer)? Give summary @ -No Was smoking cessation discussed for >3mins.? @ -No Was critical care preformed (if so, how long)? @ -No Were there social determinants of health that impacted care today? How? (Homelessness, low income, unemployed, alcoholism, drug addiction, transportation, low edu. Level, literacy, decrease access to med. care, fci, rehab)? @ -No Was there de-escalation of care discussed even if they declined (Discuss DNR or withdrawal of care, Hospice)? DNR status @ -No What co-morbidities impacted this encounter? (DM, HTN, Smoking, COPD, CAD, Cancer, CVA, ARF, Chemo, Hep., AIDS, mental health diagnosis, sleep apnea, morbid obesity)? @ -None Was patient admitted / discharged? Hospital course, mention meds given and route, prescriptions, significant lab abnormalities, going to OR and other pertinent info. @ -Charge. 54 year old female presenting to emergency department with complaints of abdominal pain. Patient was found within the emergency room waiting room for 7+ hours due to limited availability of rooms. On evaluation patient is resting up in examination bed and initial vitals are stable. Patient is noted to have a chronic mid abdominal nonhealing wound. Abdomen is soft with no tenderness. Patient provided with pain medications and states that she is feeling better. She is able to tolerate oral intake and is requesting discharge. Recommend follow-up as scheduled. Return parameters discussed. Juan e discussed with Dr. Chavez Undiagnosed new problem with uncertain prognosis? @ -No Drug Therapy requiring intensive monitoring for toxicity (Heparin, Nitro, Insulin, Cardizem)? @ -No Were any procedures done? @ -No Diagnosis/symptom? @ -chronic abdominal pain Acute, or Chronic, or Acute on Chronic? @ -acute Uncomplicated (without systemic symptoms) or Complicated (systemic symptoms)? @ -uncomplicated Side effects of treatment? @ -No Exacerbation, Progression, or Severe Exacerbation? @ -No Poses a threat to life or bodily function? How? (Chest pain, [place], [place], pneumonia, PE, COPD, DKA, ARF, appy, cholecystitis, CVA, Diverticulitis, Homicidal, Suicidal, threat to staff... and all critical care pts) @ -No (Divya Hammonds) Disposition <Som Sandhu - Last Filed: 02/18/25 14:59> Is patient prescribed a controlled substance at d/c from ED?: No Time of Disposition: 22:29 <Divya Hammonds - Last Filed: 02/18/25 23:15> Clinical Impression: Chronic abdominal pain, Chronic abdominal wound infection Disposition: HOME SELF-CARE Condition: Stable Instructions (If sedation given, give patient instructions): Chronic Abdominal Pain (ED) Additional Instructions: Please return to the Emergency Department if symptoms worsen or any other concerns. Referrals: None,Stated [Primary Care Provider] - 1-2 days
[2025-02-18 20:54] VITALS: RESP 18
[2025-02-18 22:06] VITALS: BP 114/88
[2025-02-18] MEDS: HYDROmorphone 1 MG/ML 1 ML SYRINGE IVP STA (22:06)
[2025-02-18 22:49] VITALS: PULSE 81; TEMP 98.2
== END 2025-02-18 22:48 | disposition home or self-care (01) ==
LOC: EC 14:08
DX: R10.9 Unspecified abdominal pain (principal); G89.29 Other chronic pain; L98.499 Non-pressure chronic ulcer of skin of other sites with unspecified severity; Z86.73 Personal history of transient ischemic attack (TIA), and cerebral infarction without residual deficits; F17.200 Nicotine dependence, unspecified, uncomplicated; Z88.1 Allergy status to other antibiotic agents
CPT/HCPCS: 99284; 96374; J1171

== ENCOUNTER 2025-03-08 13:08 | Inpatient (IN) | payer MEDICARE, OTHER ==
--- NOTE | 2025-03-08 14:21 | ED ---
Abdominal Pain HPI - General Chief Complaint: Abdominal Pain Stated Complaint: Abd pain Time Seen by Provider: 03/08/25 13:49 Source: patient Mode of arrival: ambulatory Limitations: no limitations - History of Present Illness Initial Comments: Patient is a 54-year-old female with a history of multiple chronic morbidities including COPD, CVA, chronic abdominal issues, previous colostomy, hyperlipidemia, diabetes, who presents emergency room with worsening drainage from an abdominal abscess and worsening abdominal pain. Patient has been seen multiple times for similar complaints. Last had a CT of the abdomen in January. Patient had an I&D a week ago and has been followed at wound care and by wound nurse. It was packed yesterday. She states the drainage has worsened and she is having more pain. She denies any nausea vomiting or fevers. She does not believe she is on any antibiotics. Sees Dr. Lewis for this - Related Data Home Medications Medication Instructions Recorded Confirmed Insulin Glargine,Hum.rec.anlog 62 unit SQ DAILY 08/04/21 02/11/25 [Lantus Solostar Pen] hydroCHLOROthiazide [Hydrodiuril] 12.5 mg PO DAILY 08/04/21 02/11/25 busPIRone HCL 15 mg PO TID 03/14/23 02/11/25 traZODone HCL 150 mg PO HS 03/14/23 02/11/25 Atorvastatin [Lipitor] 80 mg PO DAILY 08/07/23 02/11/25 Apixaban [Eliquis] 5 mg PO BID 05/03/24 02/11/25 Famotidine 40 mg PO DAILY 05/03/24 02/11/25 cloNIDine HCL 0.05 mg PO BID 05/03/24 02/11/25 HYDROcodone/APAP 10-325MG [[place] 1 tab PO TID PRN 11/22/24 02/11/25 10-325] Potassium Chloride ER [K-Dur 20] 20 meq PO DAILY 11/22/24 02/11/25 Insulin Aspart [NovoLOG Flexpen] See Protocol SQ AC-TID 02/11/25 02/11/25 Insulin Glargine,Hum.rec.anlog 12 units SQ HS 02/11/25 02/11/25 [Lantus Solostar Pen] lisinopriL 30 mg PO DAILY 02/11/25 02/11/25 Previous Rx's Medication Instructions Recorded Gabapentin 800 mg PO TID 3 Days #9 tab 07/12/23 Acetaminophen Tab [Tylenol] 650 mg PO Q6HR PRN tab 02/14/25 Cephalexin [Keflex] 500 mg PO Q8HR 14 Days #42 cap 02/14/25 Cholestyramine Resin [Questran 4 gm PO BID@1000,1800 PRN #30 02/14/25 Packet] packet Allergies Allergy/AdvReac Type Severity Reaction Status Date / Time ceftriaxone [From Rocephin] Allergy Rash/Hives Verified 03/08/25 13:21 Review of Systems ROS Statement: Those systems with pertinent positive or pertinent negative responses have been documented in the HPI. ROS Other: All systems not noted in ROS Statement are negative. Constitutional: Reports: as per HPI. Denies: fever, chills Respiratory: Denies: cough, dyspnea Cardiovascular: Denies: chest pain, palpitations Gastrointestinal: Reports: abdominal pain. Denies: diarrhea Skin: Reports: lesions, change in color Past Medical History Past Medical History: COPD, CVA/TIA, Diabetes Mellitus, Deep Vein Thrombosis (DVT), GERD/Reflux, Hyperlipidemia, Hypertension Additional Past Medical History / Comment(s): CVA 2019- expressive aphasia; 2 DVT's; diverticulitis; hernia History of Any Multi-Drug Resistant Organisms: MRSA Date of last positivie culture/infection: 09/03/23 MDRO Source:: Groin Past Surgical History: Bowel Resection Additional Past Surgical History / Comment(s): IVC FILTER 2013. ileostomy. wound vac. ileostomy reversal with hernia repair, with ovary removal-Apr 2024. Past Anesthesia/Blood Transfusion Reactions: No Reported Reaction Past Psychological History: Depression, PTSD Smoking Status: Current every day smoker Past Alcohol Use History: None Reported Past Drug Use History: None Reported General Exam Limitations: no limitations General appearance: alert, appears intoxicated Head exam: Present: atraumatic Eye exam: Present: normal appearance ENT exam: Present: normal exam Neck exam: Present: normal inspection, full ROM Respiratory exam: Present: normal lung sounds bilaterally Cardiovascular Exam: Present: regular rate GI/Abdominal exam: Present: soft, tenderness, other (3 cm open wound with purulent drainage, no well-defined abscess. No rigidity of the abdomen no rebound tenderness or signs of peritonitis. Mild erythema on the lower abdominal wall) Extremities exam: Present: full ROM Back exam: Present: full ROM Neurological exam: Present: alert, oriented X3, other (Chronic abnormal speech due to previous CVA) Psychiatric exam: Present: normal affect, normal mood Skin exam: Present: warm, erythema (Of the right lower abdomen. 3 cm open incision from I&D of abscess) Course Vital Signs 03/08/25 03/08/25 13:17 16:33 Temperature 98 F 98.1 F Pulse Rate 112 H 80 Respiratory 18 18 Rate Blood Pressure 154/90 154/96 O2 Sat by Pulse 96 98 Oximetry - Reevaluation(s) Reevaluation #1: 03/08/25 17:57 Patient given pain medicine emergency room. Started on Zosyn. Discussed admission plan with the patient after I spoke with Dr. Lewis. He said to get her admitted to medicine and he will see the patient tomorrow. Spoke with Dr. Hickey who reviewed the CT scan as well. Medical Decision Making - Medical Decision Making Was pt. sent in by a medical professional or institution (, PA, MACHINE SPRAYER, urgent care, hospital, or halfway...) When possible be specific @ -[No] Did you speak to anyone other than the patient for history (EMS, parent, family, police, friend...)? What history was obtained from this source @ -No Did you review nursing and triage notes (agree or disagree)? Why? @ -[I reviewed and agree with nursing and triage notes] Were old charts reviewed (outside hosp., previous admission, EMS record, old EKG, old radiological studies, urgent care reports/EKG's, halfway records)? Report findings @ -Yes old charts were reviewed including recent ER evaluations in December and January Differential Diagnosis (chest pain, altered mental status, abdominal pain women, abdominal pain men, vaginal bleeding, weakness, fever, dyspnea, syncope, he adache, dizziness, GI bleed, back pain, seizure, CVA, palpatations, mental health, musculoskeletal)? @ -Abdominal wall abscess, abdominal abscess, cellulitis of the abdomen, SIRS, chronic pain EKG interpreted by me (3pts min.). @ -[As above] X-rays interpreted by me (1pt min.). @ -[None done] CT interpreted by me (1pt min.). @ -CT shows a 6.5 x 3 cm abdominal wall abscess, large dilated vessels and torturous veins U/S interpreted by me (1pt. min.). @ -[None done] What testing was considered but not performed or refused? (CT, X-rays, U/S, labs)? Why? @ -[None] What meds were considered but not given or refused? Why? @ -[None] Did you discuss the management of the patient with other professionals (professionals i.e. DrFabián, PA, MACHINE SPRAYER, lab, RT, psych nurse, social service coordinator, oil well service unit operator, teacher, armed custom protection officer, case therapist)? Give summary @ -I discussed patient's symptoms and CT results with attending ED physician Dr. Hickey. I spoke with patient's surgeon who has followed the abd ominal abscesses in the past. He will see the patient in the hospital tomorrow and instructed us to have the patient admitted to medicine. I also spoke with internal medicine physician for [facility] Dr. Rhodes who will admit the patient Was smoking cessation discussed for >3mins.? @ -[No] Was critical care preformed (if so, how long)? @ -[No] Were there social determinants of health that impacted care today? How? (Homelessness, low income, unemployed, alcoholism, drug addiction, transportation, low edu. Level, literacy, decrease access to med. care, group home, rehab)? @ -[No] Was there de-escalation of care discussed even if they declined (Discuss DNR or withdrawal of care, Hospice)? DNR status @ -[No] What co-morbidities impacted this encounter? (DM, HTN, Smoking, COPD, CAD, Cancer, CVA, ARF, Chemo, Hep., AIDS, mental health diagnosis, sleep apnea, morbid obesity)? @ -CVA, COPD, diabetes Was patient admitted / discharged? Hospital course, mention meds given and route, prescriptions, significant lab abnormalities, going to OR and other pertinent info. @ -Patient will be admitted for observation and further evaluation by surgeon tomorrow Undiagnosed new problem with uncertain prognosis? @ -[No] Drug Therapy requiring intensive monitoring for toxicity (Heparin, Nitro, Insulin, Cardizem)? @ -[No] Were any procedures done? @ -[No] Diagnosis/symptom? @ -Abdominal wall abscess, abdominal pain, cellulitis of the abdominal wall, dilated vessels of the abdomen Acute, or Chronic, or Acute on Chronic? @ -Acute and acute on chronic Uncomplicated (without systemic symptoms) or Complicated (systemic symptoms)? @ -[default] Side effects of treatment? @ -[No] Exacerbation, Progression, or Severe Exacerbation? @ -Exacerbation Poses a threat to life or bodily function? How? (Chest pain, [place], [place], pneumonia, PE, COPD, DKA, ARF, appy, cholecystitis, CVA, Diverticulitis, Homicidal, [place] icidal, threat to staff... and all critical care pts) @ -[No] - Lab Data Result diagrams: 03/08/25 15:41 03/08/25 15:41 Lab Results 03/08/25 03/08/25 03/08/25 Range/Units 15:11 15:41 15:41 WBC 11.24 H (4.50-10.00) 10*3/uL RBC 4.78 (4.10-5.20) 10*6/uL Hgb 14.6 (12.0-15.0) g/dL Hct 43.2 (37.2-46.3) % MCV 90.4 (80.0-97.0) fL MCH 30.5 (27.0-32.0) pg MCHC 33.8 (32.0-37.0) g/dL Plt Count 195 (140-440) 10*3/uL MPV 10.4 (9.5-12.2) fL Immature Gran % (Auto) 0.4 % Neutrophils % 76.0 % Lymphocytes % 17.3 % Monocytes % 5.2 % Eosinophils % 0.7 % Basophils % 0.4 % Immature Gran # 0.04 (0.00-0.04) 10*3/uL Neutrophils # 8.54 H (1.80-7.70) 10*3/uL Lymphocytes # 1.94 (0.90-5.00) 10*3/uL Monocytes # 0.59 (0.20-1.00) 10*3/uL Eosinophils # 0.08 (0.04-0.35) 10*3/uL Basophils # 0.05 (0.00-0.10) 10*3/uL Sodium 136 L (137-145) mmol/L Potassium 4.3 (3.5-5.1) mmol/L Chloride 100 (98-107) mmol/L Carbon Dioxide 23 (22-30) mmol/L Anion Gap 13 mmol/L BUN 11 (7-17) mg/dL Creatinine 0.41 L (0.52-1.04) mg/dL Est GFR (CKD-EPI)AfAm >90 (>60 ml/min/1.73 sqM) Est GFR (CKD-EPI)NonAf >90 (>60 ml/min/1.73 sqM) Glucose 340 H (74-99) mg/dL Calcium 10.0 (8.4-10.2) mg/dL Total Bilirubin 0.8 (0.2-1.3) mg/dL AST 21 (14-36) U/L ALT 20 (4-34) U/L Alkaline Phosphatase 191 H (38-126) U/L Total Protein 7.6 (6.3-8.2) g/dL Albumin 4.4 (3.5-5.0) g/dL Urine Color Colorless Urine Appearance Clear (Clear) Urine pH 5.5 (5.0-8.0) Ur Specific Bypro 1.034 (1.001-1.035) Urine Protein Negative (Negative) Urine Glucose (UA) 4+ H (Negative) Urine Ketones Negative (Negative) Urine Blood Negative (Negative) Urine Nitrite Negative (Negative) Urine Bilirubin Negative (Negative) Urine Urobilinogen <2.0 (<2.0) mg/dL Ur Leukocyte Esterase Negative (Negative) - Radiology Data Radiology results: report reviewed, image reviewed Disposition Clinical Impression: Abdominal wall abscess, Abdominal pain, Cellulitis, Hyperglycemia Disposition: ADMITTED IP TO THIS [facility] Condition: Fair Referrals: None,Stated [Primary Care Provider] - 1-2 days Decision Date: 03/08/25 Decision Time: 18:01
[2025-03-08 15:29] LABS: Bilirubin,Urine Negative (Negative); Blood,Urine Negative (Negative); Color,Urine Colorless; Glucose,Urine (UA) 4+ (Negative); Ketones,Urine Negative (Negative); Leukocyte Esterase,Urine Negative (Negative); Nitrite,Urine Negative (Negative); PH, Urine 5.5 (5.0-8.0); Protein,Urine Negative (Negative); Specific Gravity,Urine 1.034 (1.001-1.035); Urobilinogen,Urine <2.0 mg/dL (<2.0)
[2025-03-08 15:45] LABS: Basophils # (A) 0.05 10*3/uL (0.00-0.10); Basophils % (A) 0.4 %; Eosinophils # (A) 0.08 10*3/uL (0.04-0.35); Eosinophils % (A) 0.7 %; HCT 43.2 % (37.2-46.3); HGB 14.6 g/dL (12.0-15.0); Lymphocytes # (A) 1.94 10*3/uL (0.90-5.00); Lymphocytes % (A) 17.3 %; MCH 30.5 pg (27.0-32.0); MCHC 33.8 g/dL (32.0-37.0); MCV 90.4 fL (80.0-97.0); Monocytes # (A) 0.59 10*3/uL (0.20-1.00); Monocytes % (A) 5.2 %; Neutrophils # (A) 8.54 10*3/uL (1.80-7.70); Neutrophils % (A) 76.0 %; Platelet Count 195 10*3/uL (140-440); RBC 4.78 10*6/uL (4.10-5.20); RDW 13.1 % (11.5-14.5); WBC 11.24 10*3/uL (4.50-10.00)
[2025-03-08] MEDS: MORPHINE SULFATE 4 MG/ML SYRINGE IVP STA (15:58)
[2025-03-08 16:01] LABS: ALT 20 U/L (4-34); AST 21 U/L (14-36); African American GFR (CKD) >90 (>60 ml/min/1.73 sqM); Albumin 4.4 g/dL (3.5-5.0); Alkaline Phosphatase 191 U/L (38-126); Anion Gap 13 mmol/L; Blood Urea Nitrogen 11 mg/dL (7-17); Calcium 10.0 mg/dL (8.4-10.2); Carbon Dioxide 23 mmol/L (22-30); Chloride 100 mmol/L (98-107); Glucose 340 mg/dL (74-99); Non-African American GFR(CKD) >90 (>60 ml/min/1.73 sqM); Potassium 4.3 mmol/L (3.5-5.1); Sodium 136 mmol/L (137-145); Total Protein 7.6 g/dL (6.3-8.2)
--- NOTE | 2025-03-08 16:40 | CT ---
EXAMINATION TYPE: CT abdomen pelvis w con DATE OF EXAM: 03/08/2025 4:29 PM COMPARISON: CT abdomen pelvis most recent from CLINICAL INDICATION: Female, 54 years old with history of abdominal pain, abscess, drainage; abdomina l pain, abscess drainage TECHNIQUE: Axial CT abdomen pelvis w con;Sagittal and coronal reformats were created on a separate w orkstation. Contrast used:100 ml mL of Isovue 300 with IV Contrast, (none if empty) Oral contrast used: without Oral Contrast (none if empty) CT DLP: 948.5 mGycm, Automated exposure control for dose reduction was used. FINDINGS: LOWER CHEST: Unremarkable ABDOMEN LIVER: Enlarged with diffuse low-attenuation. GALLBLADDER AND BILE DUCTS: Unremarkable. PANCREAS: Unremarkable. SPLEEN: Unremarkable. ADRENAL GLANDS: Unremarkable. KIDNEYS AND URETERS: No evidence of hydronephrosis or obstructing renal calculus. The ureters are unr emarkable. Simple appearing right renal cortical cyst. No follow-up recommended. PELVIS BLADDER: No evidence for wall thickening or mass given limitations of exam. REPRODUCTIVE: Unremarkable. ABDOMEN & PELVIS STOMACH AND BOWEL: No evidence of bowel obstruction. Scattered colonic diverticula. PERITONEUM/RETROPERITONEUM: No evidence of pneumoperitoneum or free fluid. VASCULATURE: No evidence of aortic aneurysm. IVC filter with likely more distal occlusion with tortuo us vessels/shunting along the anterior abdominal wall. MUSCULOSKELETAL: No acute osseous abnormalities LYMPH NODES: No gross evidence for lymphadenopathy. SOFT TISSUE/ABDOMINAL WALL: Fat-containing ventral wall hernia superiorly. Organizing fluid collectio n measuring 6.5 x 2.4 x 2.4 cm compatible with abscess and reported history. There is fat stranding c hanges around this lesion. Large shunting vessel is noted on the right half of the lesion. IMPRESSION: 1. Subcutaneous organizing fluid collection in the anterior abdomen compatible with history of absce ss measuring 6.5 x 2.4 x 3.4 cm. Large vessel are on the right aspect of the lesion superficially fro m shunting from IVC filter occlusion. 2. IVC filter with likely more distal occlusion with tortuous vessels/shunting along the anterior ab dominal wall. 3. Hepatomegaly with hepatic steatosis. 4. Clonic diverticulosis. The appendix is normal. [facility], , 03/08/2025 4:38 PM
[2025-03-08] MEDS: INSULIN REGULAR 100 UNIT/ML VIAL (IM/SQ) SQ ONE (16:42)
[2025-03-08] MEDS: SODIUM CHLORIDE 0.9% 500 ML 500 ML IV STA (16:46)
[2025-03-08] MEDS ORDERED: NALOXONE 0.4 MG/ML 1 ML VIAL IV PRN (17:50)
[2025-03-08] MEDS: PIPERACILLIN-TAZOBACTAM 3.375 GM in SODIUM CHLORIDE 0.9% 100 ML IVPB STA (18:41)
[2025-03-08] MEDS: SODIUM CHLORIDE 0.9% 1,000 ML IV SCH (18:42)
[2025-03-08] MEDS: MORPHINE SULFATE 4 MG/ML SYRINGE IVP PRN (20:46)
[2025-03-09 05:43] LABS: Glucose,Whole Blood 210 mg/dL (70-110)
[2025-03-09 11:21] VITALS: BMI 26.2
[2025-03-09 12:05] LABS: Glucose,Whole Blood 201 mg/dL (70-110)
[2025-03-09] MEDS ORDERED: DEXTROSE 50% SYRINGE 50 ML IVP PRN ×2 (12:32)
[2025-03-09] MEDS: PIPERACILLIN-TAZOBACTAM 3.375 GM in SODIUM CHLORIDE 0.9% 100 ML IVPB SCH (12:37)
[2025-03-09] MEDS: FAMOTIDINE 20 MG TAB PO SCH (12:56)
[2025-03-09] MEDS: ATORVASTATIN 80 MG TAB PO SCH (12:56)
--- NOTE | 2025-03-09 13:54 | P.GSCN ---
History of Present Illness Consult date: 03/09/25 History of present illness: CHIEF COMPLAINT: Abdominal pain HISTORY OF PRESENT ILLNESS: This is a 54-year-old female who present to the hospital with recurrent complaints of abdominal pain at her old incision site where she has her chronic wound. She has been following at wound care center. She reports being seen by Dr. Lewis in the office this past week for another incision and drainage of her chronic wound. She continues to have purulent drainage. She is complaining of abdominal pain. She came back to the ER and is patient came to the ER due to her worsening purulent drainage and abdominal pain. She had a CT scan abdomen and pelvis that had reported subcutaneous organizing fluid collection in the anterior abdomen. Compatible with history of abscess measuring 6.5 x 2.4 x 3.4 cm. Large vessel are on the right aspect of the lesion. Patient does take Eliquis for history of DVT. Last dose was Sunday evening. PAST MEDICAL HISTORY: COPD, CVA, diabetes mellitus, DVT, GERD, hyperlipidemia, hypertension, diverticulitis PAST SURGICAL HISTORY: Lower anterior resection with colostomy for diverticulitis May 2023. Colostomy reversal with incisional hernia repair and parastomal hernia repair April 2024. MEDICATIONS: See below ALLERGIES: See below SOCIAL HISTORY: No illicit drug use. REVIEW OF SYSTEMS: CONSTITUTIONAL: Denies fever or chills. HEENT: Denies blurred vision, vision changes, or eye pain. Denies hemoptysis CARDIOVASCULAR: Denies chest pain or pressure. RESPIRATORY: No shortness of breath. GASTROINTESTINAL: See HPI for pertinent findings HEMATOLOGIC: Denies bleeding disorders. GENITOURINARY: Denies any blood in urine or increased urinary frequency. SKIN: Denies pruitis. Denies rash. PHYSICAL EXAM: VITAL SIGNS: Reviewed GENERAL: Well-developed in no acute distress. HEENT: No sclera icterus. Extraocular movements grossly intact. Moist buccal mucosa. Head is atraumatic, normocephalic. No nasal drainage. ABDOMEN: Soft. Nondistended. Midline incision chronic wound with purulent drainage, no erythema. Tender with palpation NEUROLOGIC: Alert and oriented. Cranial nerves II through XII grossly intact. LABORATORY DATA: WBC 11.24 Hgb 14.6 platelets 195 Sodium 136 potassium is 4.3 creatinine 0.41 Culture from drainage pending IMAGING: CT scan abdomen pelvis subcutaneous organizing fluid collection in the anterior abdomen compatible with history of abscess measuring 6.5 x 2.4 x 3.4 cm. 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 IVC filter likely more distal occlusion with torturous vessels/shunting along the anterior abdominal wall. Hepatomegaly with hepatic steatosis. Colonic diverticulosis. Appendix normal. ASSESSMENT: 1. Abdominal wall abscess PLAN: - Patient scheduled for debridement of abdominal wall abscess tomorrow with Dr. Lewis - N.p.o. after midnight - Antibiotics per ID service - Hold Vee Physician Visual Merchandising Assistant note has been reviewed by physician. Signing provider agrees with the documented findings, assessment, and plan of care. Past Medical History Past Medical History: COPD, CVA/TIA, Diabetes Mellitus, Deep Vein Thrombosis (DVT), GERD/Reflux, Hyperlipidemia, Hypertension Additional Past Medical History / Comment(s): CVA 2020- expressive aphasia; 2 DVT's; diverticulitis; hernia History of Any Multi-Drug Resistant Organisms: MRSA Year Discovered:: 09/03/23 MDRO Source:: Groin Past Surgical History: Bowel Resection Additional Past Surgical History / Comment(s): IVC FILTER 2013. ileostomy. wound vac. ileostomy reversal with hernia repair, with ovary removal-Apr 2024. Past Anesthesia/Blood Transfusion Reactions: No Reported Reaction Past Psychological History: Depression, PTSD Smoking Status: Current every day smoker Past Alcohol Use History: None Reported Additional Past Alcohol Use History / Comment(s): smokes 1 ppd since age 18 Past Drug Use History: None Reported Additional Drug Use History / Comment(s): used marijuana on her birthday Medications and Allergies Home Medications Medication Instructions Recorded Confirmed Type Insulin Glargine,Hum.rec.anlog 64 unit SQ DAILY 08/04/21 03/08/25 History [Lantus Solostar Pen] hydroCHLOROthiazide [Hydrodiuril] 12.5 mg PO DAILY 08/04/21 03/08/25 History busPIRone HCL 15 mg PO TID 03/14/23 03/08/25 History traZODone HCL 150 mg PO HS 03/14/23 03/08/25 History Gabapentin 800 mg PO TID 3 Days #9 tab 07/12/23 03/08/25 Rx Atorvastatin [Lipitor] 80 mg PO DAILY 08/07/23 03/08/25 History Apixaban [Eliquis] 5 mg PO BID 05/03/24 03/08/25 History Famotidine 40 mg PO DAILY 05/03/24 03/08/25 History cloNIDine HCL 0.05 mg PO BID 05/03/24 03/08/25 History HYDROcodone/APAP 10-325MG [[place] 1 tab PO TID PRN 11/22/24 03/08/25 History 10-325] Potassium Chloride ER [K-Dur 20] 20 meq PO DAILY 11/22/24 03/08/25 History Insulin Aspart [NovoLOG Flexpen] See Protocol SQ AC-TID 02/11/25 03/08/25 History Insulin Glargine,Hum.rec.anlog 14 units SQ HS 02/11/25 03/08/25 History [Lantus Solostar Pen] lisinopriL 30 mg PO DAILY 02/11/25 03/08/25 History Allergies Allergy/AdvReac Type Severity Reaction Status Date / Time ceftriaxone [From Rocephin] Allergy Rash/Hives Verified 03/08/25 19:30 Surgical - Exam Vital Signs Temp Pulse Resp BP Pulse Ox 98 F 112 H 18 154/90 96 03/08/25 13:17 03/08/25 13:17 03/08/25 13:17 03/08/25 13:17 03/08/25 13:17 Results - Labs 03/08/25 15:41 03/08/25 15:41 Abnormal Lab Results - Last 24 Hours (Table) 03/08/25 03/08/25 03/08/25 Range/Units 15:11 15:41 15:41 WBC 11.24 H (4.50-10.00) 10*3/uL Neutrophils # 8.54 H (1.80-7.70) 10*3/uL Sodium 136 L (137-145) mmol/L Creatinine 0.41 L (0.52-1.04) mg/dL Glucose 340 H (74-99) mg/dL POC Glucose (mg/dL) (70-110) mg/dL Alkaline Phosphatase 191 H (38-126) U/L Urine Glucose (UA) 4+ H (Negative) 03/09/25 Range/Units 05:42 WBC (4.50-10.00) 10*3/uL Neutrophils # (1.80-7.70) 10*3/uL Sodium (137-145) mmol/L Creatinine (0.52-1.04) mg/dL Glucose (74-99) mg/dL POC Glucose (mg/dL) 210 H (70-110) mg/dL Alkaline Phosphatase (38-126) U/L Urine Glucose (UA) (Negative) Microbiology - Last 24 Hours (Table) 03/08/25 15:11 Gram Stain - Preliminary Abdomen Diabetes panel 03/08/25 Range/Units 15:41 Sodium 136 L (137-145) mmol/L Potassium 4.3 (3.5-5.1) mmol/L Chloride 100 (98-107) mmol/L Carbon Dioxide 23 (22-30) mmol/L BUN 11 (7-17) mg/dL Creatinine 0.41 L (0.52-1.04) mg/dL Glucose 340 H (74-99) mg/dL Calcium 10.0 (8.4-10.2) mg/dL AST 21 (14-36) U/L ALT 20 (4-34) U/L Alkaline Phosphatase 191 H (38-126) U/L Total Protein 7.6 (6.3-8.2) g/dL Albumin 4.4 (3.5-5.0) g/dL Calcium panel 03/08/25 Range/Units 15:41 Calcium 10.0 (8.4-10.2) mg/dL Albumin 4.4 (3.5-5.0) g/dL Pituitary panel 03/08/25 Range/Units 15:41 Sodium 136 L (137-145) mmol/L Potassium 4.3 (3.5-5.1) mmol/L Chloride 100 (98-107) mmol/L Carbon Dioxide 23 (22-30) mmol/L BUN 11 (7-17) mg/dL Creatinine 0.41 L (0.52-1.04) mg/dL Glucose 340 H (74-99) mg/dL Calcium 10.0 (8.4-10.2) mg/dL Adrenal panel 03/08/25 Range/Units 15:41 Sodium 136 L (137-145) mmol/L Potassium 4.3 (3.5-5.1) mmol/L Chloride 100 (98-107) mmol/L Carbon Dioxide 23 (22-30) mmol/L BUN 11 (7-17) mg/dL Creatinine 0.41 L (0.52-1.04) mg/dL Glucose 340 H (74-99) mg/dL Calcium 10.0 (8.4-10.2) mg/dL Total Bilirubin 0.8 (0.2-1.3) mg/dL AST 21 (14-36) U/L ALT 20 (4-34) U/L Alkaline Phosphatase 191 H (38-126) U/L Total Protein 7.6 (6.3-8.2) g/dL Albumin 4.4 (3.5-5.0) g/dL
[2025-03-09] MEDS: GABAPENTIN 400 MG CAP PO SCH (16:21)
[2025-03-09 17:32] LABS: Glucose,Whole Blood 217 mg/dL (70-110)
[2025-03-09] MEDS: INSULIN LISPRO (HumaLOG) 100 UNIT/ML 10 mL VL SQ SCH ×2 (18:10→18:11)
[2025-03-09] MEDS: HYDROcodone/APAP 10-325MG 1 EACH TAB PO PRN (18:10)
--- NOTE | 2025-03-09 18:19 | P.HPIM ---
History of Present Illness Chief Complaint: Abdominal pain secondary to intra-abdominal abscess. History of present illness; 54-year-old female with a history of low anterior resection for diverticulitis, COPD, 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 She was previously admitted with abdominal pain with continued ongoing open area and previous wound dehiscence being closely monitored by general surgery and infectious disease. Patient continues with significant pain and abdominal drainage which she recognized increasing since 4 months ago post colostomy reversal. Patient reports attending her general surgeon Dr. Subramanian regarding symptoms and was told to attend the emergency department for further evaluation. Patient denies fevers, chills and rigors. On examination a well-demarcated circular area of open wound on the left lower quadrant of the abdomen was appreciated. Green purulent drainage was noticed, patient reported worsening of such. A foul order at the site was also appreciated. Of note, patient also complaining of having history of recurrent boils in her inner thigh and groin region. In ER lab work significant for WBC 11.24 with neutrophils of 8.54, sodium 136, creatinine 0.41, glucose 340, ALT 191. Patient received a single dose of Zosyn in ED and drainage cultured. A CT Abdo pelvis obtained significant for subcutaneous fluid collection in the anterior abdomen compatible with history of abscesses measuring 6.5 x 2.4 x 3.4 cm. 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 IVC filter would likely more distal occlusion with torturous vessels/shunting along the anterior abdominal wall as well as hepatomegaly with hepatic state steatosis. Chronic diverticulosis also appreciated. REVIEW OF SYSTEMS: As stated above in HPI. The rest of the 14-point review of systems is negative. PHYSICAL EXAMINATION: GENERAL: The patient is alert and oriented x3, not in any acute distress. Well developed, well nourished. HEENT: Pupils are round and equally reacting to light. EOMI. No scleral icterus. No conjunctival pallor. Normocephalic, atraumatic. CARDIOVASCULAR: S1 and S2 present. No murmurs, rubs, or gallops. PULMONARY: Chest is clear to auscultation b/l, no wheezing or crackles. ABDOMEN: Soft, nontender, nondistended, normoactive bowel sounds. No palpable organomegaly. MUSCULOSKELETAL: No joint swelling or deformity. EXTREMITIES: No cyanosis, clubbing, or pedal edema. NEUROLOGICAL: Gross neurological examination did not reveal any focal deficits. SKIN: No rashes. Assessment and Plan #Abdominal wall abscess - Patient scheduled for debridement of abdominal wall abscess tomorrow with Dr. Lewis - N.p.o. after midnight - Antibiotics per ID service - Hold Eliquis - Start IV zosyn as per ID - ID on consult, appreciate recommendations Chronic Conditions: #Type 2 DM - Insulin lantus 40 BD + Humolog before meal times + SS insulin - Monitor CMP #CVA #Hyperlipidemia #COPD Continue home medications F:Normal Saline E:None N:N.P.O from midnight GI ppx: pepcid CODE STATUS: full Dictation was produced using [employer] dictation software. please excuse any grammatical, word or spelling errors. Past Medical History Past Medical History: COPD, CVA/TIA, Diabetes Mellitus, Deep Vein Thrombosis (DVT), GERD/Reflux, Hyperlipidemia, Hypertension Additional Past Medical History / Comment(s): CVA 2020- expressive aphasia; 2 DVT's; diverticulitis; hernia History of Any Multi-Drug Resistant Organisms: MRSA Date of last positivie culture/infection: 09/03/23 MDRO Source:: Groin Past Surgical History: Bowel Resection Additional Past Surgical History / Comment(s): IVC FILTER 2013. ileostomy. wound vac. ileostomy reversal with hernia repair, with ovary removal-Apr 2024. Past Anesthesia/Blood Transfusion Reactions: No Reported Reaction Past Psychological History: Depression, PTSD Smoking Status: Current every day smoker Past Alcohol Use History: None Reported Additional Past Alcohol Use History / Comment(s): smokes 1 ppd since age 18 Past Drug Use History: None Reported Additional Drug Use History / Comment(s): used marijuana on her birthday Medications and Allergies Home Medications Medication Instructions Recorded Confirmed Type Insulin Glargine,Hum.rec.anlog 64 unit SQ DAILY 08/04/21 03/08/25 History [Lantus Solostar Pen] hydroCHLOROthiazide [Hydrodiuril] 12.5 mg PO DAILY 08/04/21 03/08/25 History busPIRone HCL 15 mg PO TID 03/14/23 03/08/25 History traZODone HCL 150 mg PO HS 03/14/23 03/08/25 History Gabapentin 800 mg PO TID 3 Days #9 tab 07/12/23 03/08/25 Rx Atorvastatin [Lipitor] 80 mg PO DAILY 08/07/23 03/08/25 History Apixaban [Eliquis] 5 mg PO BID 05/03/24 03/08/25 History Famotidine 40 mg PO DAILY 05/03/24 03/08/25 History cloNIDine HCL 0.05 mg PO BID 05/03/24 03/08/25 History HYDROcodone/APAP 10-325MG [[place] 1 tab PO TID PRN 11/22/24 03/08/25 History 10-325] Potassium Chloride ER [K-Dur 20] 20 meq PO DAILY 11/22/24 03/08/25 History Insulin Aspart [NovoLOG Flexpen] See Protocol SQ AC-TID 02/11/25 03/08/25 History Insulin Glargine,Hum.rec.anlog 14 units SQ HS 02/11/25 03/08/25 History [Lantus Solostar Pen] lisinopriL 30 mg PO DAILY 02/11/25 03/08/25 History Allergies Allergy/AdvReac Type Severity Reaction Status Date / Time ceftriaxone [From Rocephin] Allergy Rash/Hives Verified 03/08/25 19:30 Physical Exam Vitals: Vital Signs Temp Pulse Pulse Resp BP BP Pulse Ox 03/09/25 07:17 98.0 F 79 18 128/82 97 03/09/25 00:26 98.2 F 86 20 121/78 95 03/08/25 21:52 98.2 F 90 20 158/90 96 03/08/25 20:49 98.0 F 80 17 152/87 97 03/08/25 19:00 82 18 156/94 98 03/08/25 16:33 98.1 F 80 18 154/96 98 03/08/25 13:17 98 F 112 H 18 154/90 96 Intake and Output 03/08/25 03/09/25 03/09/25 22:59 06:59 14:59 Intake Total 480 Balance 480 Intake: Oral 480 Other: Voiding Method Toilet Toilet # Voids 2 Weight 69.4 kg Results CBC & Chem 7: 03/08/25 15:41 03/08/25 15:41 Labs: Abnormal Lab Results - Last 24 Hours (Table) 03/08/25 03/08/25 03/08/25 Range/Units 15:11 15:41 15:41 WBC 11.24 H (4.50-10.00) 10*3/uL Neutrophils # 8.54 H (1.80-7.70) 10*3/uL Sodium 136 L (137-145) mmol/L Creatinine 0.41 L (0.52-1.04) mg/dL Glucose 340 H (74-99) mg/dL POC Glucose (mg/dL) (70-110) mg/dL Alkaline Phosphatase 191 H (38-126) U/L Urine Glucose (UA) 4+ H (Negative) 03/09/25 Range/Units 05:42 WBC (4.50-10.00) 10*3/uL Neutrophils # (1.80-7.70) 10*3/uL Sodium (137-145) mmol/L Creatinine (0.52-1.04) mg/dL Glucose (74-99) mg/dL POC Glucose (mg/dL) 210 H (70-110) mg/dL Alkaline Phosphatase (38-126) U/L Urine Glucose (UA) (Negative) Microbiology - Last 24 Hours (Table) 03/08/25 15:11 Gram Stain - Preliminary Abdomen Thrombosis Risk Factor Assmnt - Choose All That Apply Any of the Below Risk Factors Present?: Yes Each Factor Represents 1 point: Abnormal pulmonary function (COPD), Age 41-60 years, Obesity (BMI >25) Other Risk Factors: Yes Each Risk Factor Represents 3 Points: History of DVT/PE Other congenital or acquired thrombophilia - If yes, enter type in comment: No Thrombosis Risk Factor Assessment Total Risk Factor Score: 6 Thrombosis Risk Factor Assessment Level: High Risk
[2025-03-09 20:41] LABS: Glucose,Whole Blood 220 mg/dL (70-110)
[2025-03-09] MEDS: MORPHINE SULFATE 4 MG/ML SYRINGE IVP PRN (21:08)
[2025-03-09] MEDS: INSULIN GLARGINE (LANTUS) 100 UNIT/ML SYR SQ SCH (21:16)
--- NOTE | 2025-03-09 22:31 | P.CONS ---
History of Present Illness - Reason for Consult Consult date: 03/09/25 Recurrent abdominal abscess Requesting physician: Hay Grijalva - Chief Complaint Abdomi pain and nonhealing wound x weeks - History of Present Illness Patient is a 54-year-old female with a past medical history significant for COPD CVA diabetes mellitus hypertension hyperlipidemia diverticulitis in this patient who did have a history of abdominal incisional hernia repair with mesh and has been dealing with a nonhealing wound to the upper mid abdominal area for the last few months she was recently admitted to this facility with a culture positive for MSSA and has been treated with Keflex subsequently patient has been evaluated in the office by the surgeon and did have I&D of the wound done and drainage of some abscess patient now presenting back to the hospital concerning for worsening pain to the midline abdominal wound area patient described the pain to be sharp moderate intense without radiation with a nonhealing wound and some greenish drainage on presentation to the hospital the patient was afebrile and no fever has been recorded subsequen tly patient was tachycardic mildly but not hypotensive or hypoxic she did have a total of 11.24 with a left shift creatinine 0.41 electrolytes are normal liver enzymes are normal local cultures obtained which are currently pending patient did have abdominal pelvis CT which showed subcutaneous organizing fluid collection in the anterior abdominal compatible with a history of abscess patient did receive a dose of Zosyn in the ER subsequently has been admitted to hospital infectious disease was consulted for recurrent abdominal abscess Review of Systems Positive point and negatives has been mentioned in the HPI, complete review of systems was performed and all other systems are negative Past Medical History Past Medical History: COPD, CVA/TIA, Diabetes Mellitus, Deep Vein Thrombosis (DVT), GERD/Reflux, Hyperlipidemia, Hypertension Additional Past Medical History / Comment(s): CVA 2019- expressive aphasia; 2 DVT's; diverticulitis; hernia History of Any Multi-Drug Resistant Organisms: MRSA Year Discovered:: 09/03/23 MDRO Source:: Groin Past Surgical History: Bowel Resection Additional Past Surgical History / Comment(s): IVC FILTER 2013. ileostomy. wound vac. ileostomy reversal with hernia repair, with ovary removal-Apr 2024. Past Anesthesia/Blood Transfusion Reactions: No Reported Reaction Past Psychological History: Depression, PTSD Smoking Status: Current every day smoker Past Alcohol Use History: None Reported Additional Past Alcohol Use History / Comment(s): smokes 1 ppd since age 18 Past Drug Use History: None Reported Additional Drug Use History / Comment(s): used marijuana on her birthday Medications and Allergies Home Medications Medication Instructions Recorded Confirmed Type Insulin Glargine,Hum.rec.anlog 64 unit SQ DAILY 08/04/21 03/08/25 History [Lantus Solostar Pen] hydroCHLOROthiazide [Hydrodiuril] 12.5 mg PO DAILY 08/04/21 03/08/25 History busPIRone HCL 15 mg PO TID 03/14/23 03/08/25 History traZODone HCL 150 mg PO HS 03/14/23 03/08/25 History Gabapentin 800 mg PO TID 3 Days #9 tab 07/12/23 03/08/25 Rx Atorvastatin [Lipitor] 80 mg PO DAILY 08/07/23 03/08/25 History Apixaban [Eliquis] 5 mg PO BID 05/03/24 03/08/25 History Famotidine 40 mg PO DAILY 05/03/24 03/08/25 History cloNIDine HCL 0.05 mg PO BID 05/03/24 03/08/25 History HYDROcodone/APAP 10-325MG [[place] 1 tab PO TID PRN 11/22/24 03/08/25 History 10-325] Potassium Chloride ER [K-Dur 20] 20 meq PO DAILY 11/22/24 03/08/25 History Insulin Aspart [NovoLOG Flexpen] See Protocol SQ AC-TID 02/11/25 03/08/25 History Insulin Glargine,Hum.rec.anlog 14 units SQ HS 02/11/25 03/08/25 History [Lantus Solostar Pen] lisinopriL 30 mg PO DAILY 02/11/25 03/08/25 History Allergies Allergy/AdvReac Type Severity Reaction Status Date / Time ceftriaxone [From Rocephin] Allergy Rash/Hives Verified 03/08/25 19:30 Physical Exam Vitals: Vital Signs Temp Pulse Pulse Resp BP BP Pulse Ox 03/09/25 07:17 98.0 F 79 18 128/82 97 03/09/25 00:26 98.2 F 86 20 121/78 95 03/08/25 21:52 98.2 F 90 20 158/90 96 03/08/25 20:49 98.0 F 80 17 152/87 97 03/08/25 19:00 82 18 156/94 98 03/08/25 16:33 98.1 F 80 18 154/96 98 03/08/25 13:17 98 F 112 H 18 154/90 96 Intake and Output 03/08/25 03/09/25 03/09/25 22:59 06:59 14:59 Intake Total 480 Balance 480 Intake: Oral 480 Other: Voiding Method Toilet Toilet # Voids 2 Weight 69.4 kg 69.4 kg GENERAL DESCRIPTION: Middle-age female lying in bed, no distress. No tachypnea or accessory muscle of respiration use. HEENT: Shows Pallor , no scleral icterus. Oral mucous membrane is dry. NECK: Trachea central, no thyromegaly. LUNGS: Unlabored breathing. Clear to auscultation anteriorly. No wheeze or crackle. HEART: S1, S2, regular rate and rhythm. No loud murmur ABDOMEN: Soft, midline abdominal wound with slough tissue surrounding redness EXTREMITIES: No edema of feet. SKIN: No rash, no masses palpable. NEUROLOGICAL: The patient is awake, alert, oriented x3, mood and affect normal. Results CBC & Chem 7: 03/08/25 15:41 03/08/25 15:41 Labs: Abnormal Lab Results - Last 24 Hours (Table) 03/08/25 03/08/25 03/08/25 Range/Units 15:11 15:41 15:41 WBC 11.24 H (4.50-10.00) 10*3/uL Neutrophils # 8.54 H (1.80-7.70) 10*3/uL Sodium 136 L (137-145) mmol/L Creatinine 0.41 L (0.52-1.04) mg/dL Glucose 340 H (74-99) mg/dL POC Glucose (mg/dL) (70-110) mg/dL Alkaline Phosphatase 191 H (38-126) U/L Urine Glucose (UA) 4+ H (Negative) 03/09/25 Range/Units 05:42 WBC (4.50-10.00) 10*3/uL Neutrophils # (1.80-7.70) 10*3/uL Sodium (137-145) mmol/L Creatinine (0.52-1.04) mg/dL Glucose (74-99) mg/dL POC Glucose (mg/dL) 210 H (70-110) mg/dL Alkaline Phosphatase (38-126) U/L Urine Glucose (UA) (Negative) Microbiology - Last 24 Hours (Table) 03/08/25 15:11 Gram Stain - Preliminary Abdomen Assessment and Plan (1) Failure of outpatient treatment Current Visit: Yes Status: Acute Code(s): Z78.9 - OTHER SPECIFIED HEALTH STATUS SNOMED Code(s): 951557921 (2) Abdominal wall abscess Current Visit: Yes Status: Acute Code(s): L02.211 - CUTANEOUS ABSCESS OF ABDOMINAL WALL SNOMED Code(s): 76403392 (3) Open abdominal wall wound Current Visit: No Status: Acute Code(s): S31.109A - UNSP OPN WND ABD WALL, UNSP Q W/O PENET PERIT CAV, INIT SNOMED Code(s): 812385660 Plan: 1patient presented to the hospital with nonhealing abdominal wall wound with drainage and pain with CT did shows evidence of an abscess in this patient with history of recurrent recurrent abdominal wall abscess did have a previous history of abdominal incision repair with a mesh highly suspicious for possible mesh infection responsible for these recurrent infection 2-patient with recent culture positive MSSA and has not responded very well to the oral Keflex therapy concern for possible gram-negative 3-we will wait for the surgical aspiration drainage of the abscess and possible removal of the mesh 4-we will empirically treat the patient with Zosyn while waiting for the workup to be completed We will follow on clinical condition and cultures to further adjust medication if needed Thank you for this consultation we will follow the patient along with you Dictation was produced using [email or web address] dictation software. please excuse any grammatical, word or spelling errors. Time with Patient: Greater than 30
[2025-03-10 06:12] LABS: Basophils # (A) 0.04 10*3/uL (0.00-0.10); Basophils % (A) 0.4 %; Eosinophils # (A) 0.08 10*3/uL (0.04-0.35); Eosinophils % (A) 0.9 %; HCT 36.6 % (37.2-46.3); HGB 12.1 g/dL (12.0-15.0); Lymphocytes # (A) 1.57 10*3/uL (0.90-5.00); Lymphocytes % (A) 17.5 %; MCH 30.0 pg (27.0-32.0); MCHC 33.1 g/dL (32.0-37.0); MCV 90.6 fL (80.0-97.0); Monocytes # (A) 0.74 10*3/uL (0.20-1.00); Monocytes % (A) 8.2 %; Neutrophils # (A) 6.52 10*3/uL (1.80-7.70); Neutrophils % (A) 72.6 %; Platelet Count 196 10*3/uL (140-440); RBC 4.04 10*6/uL (4.10-5.20); RDW 13.3 % (11.5-14.5); WBC 8.99 10*3/uL (4.50-10.00)
[2025-03-10 06:26] LABS: African American GFR (CKD) >90 (>60 ml/min/1.73 sqM); Anion Gap 9 mmol/L; Blood Urea Nitrogen 13 mg/dL (7-17); Calcium 9.0 mg/dL (8.4-10.2); Carbon Dioxide 21 mmol/L (22-30); Chloride 105 mmol/L (98-107); Glucose 283 mg/dL (74-99); Non-African American GFR(CKD) >90 (>60 ml/min/1.73 sqM); Potassium 4.0 mmol/L (3.5-5.1); Sodium 135 mmol/L (137-145)
[2025-03-10 06:29] LABS: Glucose,Whole Blood 282 mg/dL (70-110)
[2025-03-10] MEDS: POTASSIUM CHLORIDE ER 20 MEQ TAB.ER PO SCH (08:13)
--- NOTE | 2025-03-10 11:23 | P.PN ---
Subjective Progress Note Date: 03/10/25 SURGICAL PROGRESS NOTE CHIEF COMPLAINT: Abdominal wall abscess HISTORY OF PRESENT ILLNESS: Patient continues to have pain and drainage at the site of the abdominal wall abscess. She is scheduled for debridement of the abdominal wall today. Afebrile. WBC 8.99 PHYSICAL EXAM: VITAL SIGNS: Reviewed. GENERAL: Well-developed in no acute distress. HEENT: No sclera icterus. Extraocular movements grossly intact. Moist buccal mucosa. Head is atraumatic, normocephalic. ABDOMEN: Soft. Nondistended. Tender at midline incision. Dressing in place. NEUROLOGIC: Alert and oriented. Cranial nerves II through XII grossly intact. ASSESSMENT: 1. Abdominal wall abscess PLAN: - Patient scheduled for debridement of abdominal wall abscess today with Dr. Lewis Physician [employer] Operator note has been reviewed by physician. Signing provider agrees with the documented findings, assessment, and plan of care. Objective - Vital Signs Vital signs: Vital Signs Temp 98.8 F 03/10/25 07:18 Pulse 87 03/10/25 07:18 Resp 16 03/10/25 07:18 BP 154/85 03/10/25 07:18 Pulse Ox 96 03/10/25 07:18 FiO2 Intake & Output 03/09/25 03/10/25 03/10/25 18:59 06:59 18:59 Intake Total 480 0 Balance 480 0 Weight 69.4 kg Intake: Oral 480 0 Other: Voiding Method Toilet Toilet # Voids 2 4 - Labs CBC & Chem 7: 03/10/25 05:20 03/10/25 05:20 Labs: Abnormal Lab Results - Last 24 Hours (Table) 03/09/25 03/09/25 03/09/25 Range/Units 12:05 17:30 20:37 RBC (4.10-5.20) 10*6/uL Hct (37.2-46.3) % Sodium (137-145) mmol/L Carbon Dioxide (22-30) mmol/L Glucose (74-99) mg/dL POC Glucose (mg/dL) 201 H 217 H 220 H (70-110) mg/dL Hemoglobin A1c (<=6.0) % 03/10/25 03/10/25 03/10/25 Range/Units 05:20 05:20 05:20 RBC 4.04 L (4.10-5.20) 10*6/uL Hct 36.6 L (37.2-46.3) % Sodium 135 L (137-145) mmol/L Carbon Dioxide 21 L (22-30) mmol/L Glucose 283 H (74-99) mg/dL POC Glucose (mg/dL) (70-110) mg/dL Hemoglobin A1c 10.9 H (<=6.0) % 03/10/25 Range/Units 06:22 RBC (4.10-5.20) 10*6/uL Hct (37.2-46.3) % Sodium (137-145) mmol/L Carbon Dioxide (22-30) mmol/L Glucose (74-99) mg/dL POC Glucose (mg/dL) 282 H (70-110) mg/dL Hemoglobin A1c (<=6.0) % Microbiology - Last 24 Hours (Table) 03/08/25 18:20 Blood Culture - Preliminary Blood 03/08/25 15:11 Gram Stain - Preliminary Abdomen Wound Culture - Preliminary Presumptive Staph aureus Gram Neg Bacilli
[2025-03-10 12:12] LABS: Glucose,Whole Blood 139 mg/dL (70-110)
[2025-03-10] MEDS: IV FLUID CONTINUATION 1,000 ML IV ONE (12:43)
[2025-03-10 12:58] LABS: Glucose,Whole Blood 129 mg/dL (70-110)
[2025-03-10] MEDS: HEPARIN SODIUM,PORCINE 5,000 UNIT/ML 1 ML VIAL SQ STA (13:01)
[2025-03-10] MEDS: ONDANSETRON 4 MG/2 ML VIAL IVP ONE (13:12)
[2025-03-10] MEDS: DEXAMETHASONE SOD PHOSPHATE 4 MG/ML 1 ML VIAL IV ONE (13:12)
--- NOTE | 2025-03-10 13:20 | P.PN ---
Subjective Subjective: History of present illness; 54-year-old female with a history of low anterior resection for diverticulitis, COPD, 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 She was previously admitted with abdominal pain with continued ongoing open area and previous wound dehiscence being closely monitored by general surgery and infectious disease. Patient continues with significant pain and abdominal drainage which she recognized increasing since 4 months ago post colostomy reversal. Patient reports attending her general surgeon Dr. Subramanian regarding symptoms and was told to attend the emergency department for further evaluation. Patient denies fevers, chills and rigors. On examination a well-demarcated circular area of open wound on the left lower quadrant of the abdomen was appreciated. Green purulent drainage was noticed, patient reported worsening of such. A foul order at the site was also appreciated. Of note, patient also complaining of having history of recurrent boils in her inner thigh and groin region. In ER lab work significant for WBC 11.24 with neutrophils of 8.54, sodium 136, creatinine 0.41, glucose 340, ALT 191. Patient received a single dose of Zosyn in ED and drainage cultured. A CT Abdo pelvis obtained significant for subcutaneous fluid collection in the anterior abdomen compatible with history of abscesses measu ring 6.5 x 2.4 x 3.4 cm. 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 IVC filter would likely more distal occlusion with torturous vessels/shunting along the anterior abdominal wall as well as hepatomegaly with hepatic state steatosis. Chronic diverticulosis also appreciated. 03/10: Patient seen at bedside. Patient reported significant increase in abdominal pain at site of abscess. Abscess visibly larger than previous day. Increased erythema on immediate right of abdominal opening. Patient reports no change in drainage. Patient for incision and drainage of the abscess and possible mesh removal today. Patient remains n.p.o., Eliquis on hold and hemodynamically stable. Pertinent positives and negatives discussed above, a complete review of systems was preformed and all the other sytems were negative. Vitals Signs Reviewed. PHYSICAL EXAMINATION: GENERAL: The patient is alert and oriented x3, not in any acute distress. Well developed, well nourished. HEENT: Pupils are round and equally reacting to light. EOMI. No scleral icterus. No conjunctival pallor. Normocephalic, atraumatic. CARDIOVASCULAR: S1 and S2 present. No murmurs, rubs, or gallops. PULMONARY: Chest is clear to auscultation b/l, no wheezing or crackles. ABDOMEN: A well-demarcated circular area of open wound on the left lower quadrant of the abdomen was appreciated. Green purulent drainage was noticed, patient reported worsening of drainage. A foul order at the site was also appreciated. a large corinne of approximately 9 x 9 cm appreciated immediately to the left of the abdominal opening, in keeping with intraabdominal abscess. Increase in erythema from yesterday. MUSCULOSKELETAL: No joint swelling or deformity EXTREMITIES: No cyanosis, clubbing, or pedal edema. - Examination of groin abscess as per patient's request. Legal Support Manager offered but patient denied one. Exam performed on day of admission:A well demarcated, raised area on right groin, erythametous. approximately 2 cm in size. NEUROLOGICAL: Gross neurological examination did not reveal any focal deficits. SKIN: No rashes. Data Reviewed Today: 03/10/2025 Patient Labs: WBC 8.99, sodium 135, potassium 4, glucose 283, hemoglobin A1c 10.9 Abdominal from standing: Positive for Staph aureus and gram-negative bacilli. Blood cultures negative till date. Imaging: No new images. Assessment and Plan #Abdominal wall abscess - Patient scheduled for debridement of abdominal wall abscess today with Dr. Lewis - N.p.o. for procedure - Antibiotics per ID service - Hold Eliquis - Start IV zosyn as per ID (03/09, day 2 of 5) - ID on consult, appreciate recommendations Chronic Conditions: #Type 2 DM - Insulin lantus 40 BD + Humolog before meal times + SS insulin - Monitor CMP #CVA #Hyperlipidemia #COPD Continue home medications F:Normal Saline E:None GI ppx: pepcid CODE STATUS: full Dictation was produced using [employer] dictation software. please excuse any grammatical, word or spelling errors. Hay Grijalva MD PGY1 Internal Medicine Objective - Vital Signs Vital signs: Vital Signs Temp 98.8 F 03/10/25 07:18 Pulse 87 03/10/25 07:18 Resp 16 03/10/25 07:18 BP 154/85 03/10/25 07:18 Pulse Ox 96 03/10/25 07:18 FiO2 Intake & Output 03/09/25 03/10/25 03/10/25 18:59 06:59 18:59 Intake Total 480 0 Balance 480 0 Weight 69.4 kg Intake: Oral 480 0 Other: Voiding Method Toilet Toilet # Voids 2 4 - Labs CBC & Chem 7: 03/10/25 05:20 03/10/25 05:20 Labs: Abnormal Lab Results - Last 24 Hours (Table) 03/09/25 03/09/25 03/09/25 Range/Units 12:05 17:30 20:37 RBC (4.10-5.20) 10*6/uL Hct (37.2-46.3) % Sodium (137-145) mmol/L Carbon Dioxide (22-30) mmol/L Glucose (74-99) mg/dL POC Glucose (mg/dL) 201 H 217 H 220 H (70-110) mg/dL Hemoglobin A1c (<=6.0) % 03/10/25 03/10/25 03/10/25 Range/Units 05:20 05:20 05:20 RBC 4.04 L (4.10-5.20) 10*6/uL Hct 36.6 L (37.2-46.3) % Sodium 135 L (137-145) mmol/L Carbon Dioxide 21 L (22-30) mmol/L Glucose 283 H (74-99) mg/dL POC Glucose (mg/dL) (70-110) mg/dL Hemoglobin A1c 10.9 H (<=6.0) % 03/10/25 Range/Units 06:22 RBC (4.10-5.20) 10*6/uL Hct (37.2-46.3) % Sodium (137-145) mmol/L Carbon Dioxide (22-30) mmol/L Glucose (74-99) mg/dL POC Glucose (mg/dL) 282 H (70-110) mg/dL Hemoglobin A1c (<=6.0) % Microbiology - Last 24 Hours (Table) 03/08/25 18:20 Blood Culture - Preliminary Blood 03/08/25 15:11 Gram Stain - Preliminary Abdomen Wound Culture - Preliminary Presumptive Staph aureus Gram Neg Bacilli
[2025-03-10] MEDS ORDERED: MIDAZOLAM 2 MG/2 ML VIAL ONE (13:28)
[2025-03-10] MEDS ORDERED: SUCCINYLCHOLINE CHLORIDE 200 MG/10 ML VIAL IV ONE (13:28)
[2025-03-10] MEDS ORDERED: LIDOCAINE 1% INJ 10MG/ML (20 ML MDV) ONE (13:28)
[2025-03-10] MEDS ORDERED: HYDROmorphone (PF) 1 MG/ML ONE (13:28)
[2025-03-10] MEDS ORDERED: fentaNYL (PF) 50 MCG/ML 2 ML AMP ONE (13:28)
[2025-03-10] MEDS ORDERED: PROPOFOL 10 MG/ML 20 ML VIAL IV ONE (13:28)
[2025-03-10] MEDS ORDERED: PHENYLEPHRINE 10 MG/ML VIAL ONE (13:28)
--- NOTE | 2025-03-10 14:08 | P.OP ---
Date of Procedure: 03/10/25 Preoperative Diagnosis: Abdominal wall abscess Postoperative Diagnosis: Abdominal wall abscess due to possible stitch abscess Procedure(s) Performed: Incision and drainage of abdominal abscess Anesthesia: VANE Surgeon: Haroon Lewis Estimated Blood Loss (ml): 5 Pathology: other (Wound culture) Condition: stable Disposition: PACU Description of Procedure: The patient was placed in the operative table in the supine position. She received general endotracheal anesthesia. Her abdomen was prepped draped you sterile fashion. The patient had a previous open wound on the left periumbilical area. The abscess presented on the right side abdominal wall. The skin incision was made over the abscess and then use electrocautery subcu tissue divided. The abscess cavity was then entered. There was approximately 20 cc of pus in the abscess cavity. This was aspirated. The abscess cavities cultured. At the base of the abscess cavity there were 2 Ethibond sutures seen. These were removed. It was unclear if this was related to a stitch abscess. Hemostasis achieved electrocautery. The wound was then packed with wet-to-dry Kerlix. Patient tolerated procedure well. She was sent to recovery in stable condition.
[2025-03-10] MEDS ORDERED: HYDROmorphone 1 MG/ML 1 ML SYRINGE IVP PRN (14:09)
[2025-03-10 14:27] LABS: Glucose,Whole Blood 140 mg/dL (70-110)
[2025-03-10] MEDS: HYDROmorphone 0.5 MG/0.5 ML SYRINGE IVP PRN (14:33)
[2025-03-10] MEDS: LACTATED RINGERS 1,000 ML IV SCH (15:11)
--- NOTE | 2025-03-10 16:13 | P.PN ---
Subjective Progress Note Date: 03/10/25 Principal diagnosis: Reason for follow-up is abdominal wall abscess Patient is a 54-year-old female with a past medical history significant for COPD CVA diabetes mellitus hypertension hyperlipidemia diverticulitis in this patient who did have a history of abdominal incisional hernia repair however there was no mesh as per discussion with the surgeon presented to hospital with abdominal pain wound concerning for an abscess in this patient was status post drainage of the abdominal wall abscess and removal of a deep stitch. On today's evaluation that is 03/10/2025, Patient is afebrile this morning patient denies having any chest pain shortness of breath or cough, the patient is currently on room air, patient still complaining of abdominal discomfort but no nausea vomiting or diarrhea. Patient white count is 8.99, creatinine 0.52 blood cultures negative local c ulture growing gram-negative bacilli and presented Staph aureus Objective - Vital Signs Vital signs: Vital Signs Temp 97.4 F L 03/10/25 14:18 Pulse 88 03/10/25 15:35 Resp 16 03/10/25 15:35 BP 122/86 03/10/25 15:35 Pulse Ox 96 03/10/25 15:35 FiO2 Intake & Output 03/09/25 03/10/25 03/10/25 18:59 06:59 18:59 Intake Total 480 0 900 Output Total 25 Balance 480 0 875 Weight 69.4 kg Intake: IV 900 Oral 480 0 Output: Estimated Blood Loss 25 Other: Voiding Method Toilet Toilet # Voids 2 4 - Exam GENERAL DESCRIPTION: Middle-age female lying in bed in no distress RESPIRATORY SYSTEM: Unlabored breathing , decreased breath sounds at bases HEART: S1 S2 regular rate and rhythm , ABDOMEN: Soft , mild tenderness EXTREMITIES: No edema feet - Labs CBC & Chem 7: 03/10/25 05:20 03/10/25 05:20 Labs: Abnormal Lab Results - Last 24 Hours (Table) 03/09/25 03/09/25 03/10/25 Range/Units 17:30 20:37 05:20 RBC (4.10-5.20) 10*6/uL Hct (37.2-46.3) % Sodium (137-145) mmol/L Carbon Dioxide (22-30) mmol/L Glucose (74-99) mg/dL POC Glucose (mg/dL) 217 H 220 H (70-110) mg/dL Hemoglobin A1c 10.9 H (<=6.0) % 03/10/25 03/10/25 03/10/25 Range/Units 05:20 05:20 06:22 RBC 4.04 L (4.10-5.20) 10*6/uL Hct 36.6 L (37.2-46.3) % Sodium 135 L (137-145) mmol/L Carbon Dioxide 21 L (22-30) mmol/L Glucose 283 H (74-99) mg/dL POC Glucose (mg/dL) 282 H (70-110) mg/dL Hemoglobin A1c (<=6.0) % 03/10/25 03/10/25 03/10/25 Range/Units 12:11 12:56 14:26 RBC (4.10-5.20) 10*6/uL Hct (37.2-46.3) % Sodium (137-145) mmol/L Carbon Dioxide (22-30) mmol/L Glucose (74-99) mg/dL POC Glucose (mg/dL) 139 H 129 H 140 H (70-110) mg/dL Hemoglobin A1c (<=6.0) % Microbiology - Last 24 Hours (Table) 03/08/25 18:20 Blood Culture - Preliminary Blood 03/08/25 15:11 Gram Stain - Preliminary Abdomen Wound Culture - Preliminary Presumptive Staph aureus Gram Neg Bacilli Assessment and Plan (1) Failure of outpatient treatment Current Visit: Yes Status: Acute Code(s): Z78.9 - OTHER SPECIFIED HEALTH STATUS SNOMED Code(s): 856710981 (2) Abdominal wall abscess Current Visit: Yes Status: Acute Code(s): L02.211 - CUTANEOUS ABSCESS OF ABDOMINAL WALL SNOMED Code(s): 90923849 (3) Open abdominal wall wound Current Visit: No Status: Acute Code(s): S31.109A - UNSP OPN WND ABD WALL, UNSP Q W/O PENET PERIT CAV, INIT SNOMED Code(s): 871990226 Plan: 1patient presented to the hospital with nonhealing abdominal wall wound with drainage and pain with CT did shows evidence of an abscess in this patient with history of recurrent recurrent abdominal wall abscess did have a previous history of abdominal incision repair with a mesh highly suspicious for possible mesh infection responsible for these recurrent infection 2-patient with recent culture positive MSSA and has not responded very well to the oral Keflex therapy concern for possible gram-negative 3-patient s/p surgical exploration and drainage of the abscess and removal of his stitch deep culture obtained superficial culture growing Staph aureus and gram-negative. 4will continue patient on Zosyn and daptomycin while waiting for sensitivity on the Staph aureus Dictation was produced using [employer] dictation software. please excuse any grammatical, word or spelling errors. Time with Patient: Less than 30
[2025-03-10 17:21] LABS: Glucose,Whole Blood 381 mg/dL (70-110)
[2025-03-10] MEDS: HYDROmorphone 1 MG/ML 1 ML SYRINGE IVP PRN (18:46)
[2025-03-10 20:26] LABS: Glucose,Whole Blood 448 mg/dL (70-110)
[2025-03-11 05:38] LABS: ALT 20 U/L (4-34); AST 19 U/L (14-36); African American GFR (CKD) >90 (>60 ml/min/1.73 sqM); Albumin 3.5 g/dL (3.5-5.0); Albumin/Globulin Ratio 1.3; Alkaline Phosphatase 157 U/L (38-126); Anion Gap 12 mmol/L; Blood Urea Nitrogen 17 mg/dL (7-17); Calcium 9.7 mg/dL (8.4-10.2); Carbon Dioxide 20 mmol/L (22-30); Chloride 105 mmol/L (98-107); Globulin 2.8 g/dL; Glucose 275 mg/dL (74-99); Non-African American GFR(CKD) >90 (>60 ml/min/1.73 sqM); Potassium 4.5 mmol/L (3.5-5.1); Sodium 137 mmol/L (137-145); Total Protein 6.3 g/dL (6.3-8.2)
[2025-03-11 06:01] LABS: Glucose,Whole Blood 274 mg/dL (70-110)
[2025-03-11 06:09] LABS: Basophils # (A) 0.03 10*3/uL (0.00-0.10); Basophils % (A) 0.3 %; Eosinophils # (A) 0.02 10*3/uL (0.04-0.35); Eosinophils % (A) 0.2 %; HCT 36.1 % (37.2-46.3); HGB 12.1 g/dL (12.0-15.0); Lymphocytes # (A) 1.40 10*3/uL (0.90-5.00); Lymphocytes % (A) 12.8 %; MCH 30.4 pg (27.0-32.0); MCHC 33.5 g/dL (32.0-37.0); MCV 90.7 fL (80.0-97.0); Monocytes # (A) 0.64 10*3/uL (0.20-1.00); Monocytes % (A) 5.9 %; Neutrophils # (A) 8.71 10*3/uL (1.80-7.70); Neutrophils % (A) 79.9 %; Platelet Count 231 10*3/uL (140-440); RBC 3.98 10*6/uL (4.10-5.20); RDW 13.0 % (11.5-14.5); WBC 10.90 10*3/uL (4.50-10.00)
--- NOTE | 2025-03-11 10:15 | P.PN ---
Subjective Subjective: History of present illness; 54-year-old female with a history of low anterior resection for diverticulitis, COPD, 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 She was previously admitted with abdominal pain with continued ongoing open area and previous wound dehiscence being closely monitored by general surgery and infectious disease. Patient continues with significant pain and abdominal drainage which she recognized increasing since 4 months ago post colostomy reversal. Patient reports attending her general surgeon Dr. Subramanian regarding symptoms and was told to attend the emergency department for further evaluation. Patient denies fevers, chills and rigors. On examination a well-demarcated circular area of open wound on the left lower quadrant of the abdomen was appreciated. Green purulent drainage was noticed, patient reported worsening of such. A foul order at the site was also appreciated. Of note, patient also complaining of having history of recurrent boils in her inner thigh and groin region. In ER lab work significant for WBC 11.24 with neutrophils of 8.54, sodium 136, creatinine 0.41, glucose 340, ALT 191. Patient received a single dose of Zosyn in ED and drainage cultured. A CT Abdo pelvis obtained significant for subcutaneous fluid collection in the anterior abdomen compatible with history of abscesses inocente uring 6.5 x 2.4 x 3.4 cm. 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 IVC filter would likely more distal occlusion with torturous vessels/shunting along the anterior abdominal wall as well as hepatomegaly with hepatic state steatosis. Chronic diverticulosis also appreciated. 03/10: Patient seen at bedside. Patient reported significant increase in abdominal pain at site of abscess. Abscess visibly larger than previous day. Increased erythema on immediate right of abdominal opening. Patient reports no change in drainage. Patient for incision and drainage of the abscess and possible mesh removal today. Patient remains n.p.o., Eliquis on hold and hemodynamically stable. 03/11: Patient seen and examined at bedside she is tolerating the procedure well feeling much better after abscess was drained. She has no complaints at this time Pertinent positives and negatives discussed above, a complete review of systems was preformed and all the other sytems were negative. Vitals Signs Reviewed. PHYSICAL EXAMINATION: GENERAL: The patient is alert and oriented x3, not in any acute distress. Well developed, well nourished. HEENT: Pupils are round and equally reacting to light. EOMI. No scleral icterus. No conjunctival pallor. Normocephalic, atraumatic. CARDIOVASCULAR: S1 and S2 present. No murmurs, rubs, or gallops. PULMONARY: Chest is clear to auscultation b/l, no wheezing or crackles. ABDOMEN: A well-demarcated circular area of open wound on the left lower quadrant of the abdomen was appreciated. Green purulent drainage was noticed, patient reported worsening of drainage. A foul order at the site was also ngoc reciated. a large corinne of approximately 9 x 9 cm appreciated immediately to the left of the abdominal opening, in keeping with intraabdominal abscess. Increase in erythema from yesterday. MUSCULOSKELETAL: No joint swelling or deformity EXTREMITIES: No cyanosis, clubbing, or pedal edema. - Examination of groin abscess as per patient's request. Skimmer Reverberatory offered but patient denied one. Exam performed on day of admission:A well demarcated, raised area on right groin, erythametous. approximately 2 cm in size. NEUROLOGICAL: Gross neurological examination did not reveal any focal deficits. SKIN: No rashes. Data Reviewed Today: 03/10/2025 Patient Labs: WBC 8.99, sodium 135, potassium 4, glucose 283, hemoglobin A1c 10.9 Abdominal from standing: Positive for Staph aureus and gram-negative bacilli. Blood cultures negative till date. Imaging: No new images. Assessment and Plan #Abdominal wall abscess Abscess debridement was yesterday sample collected from abscess pending culture and sensitivities - N.p.o. for procedure - Antibiotics per ID service - Hold Eliquis - Start IV zosyn as per ID (03/09, day 2 of 5) - ID on consult, appreciate recommendations Chronic Conditions: #Type 2 DM - Insulin lantus 40 BD + Humolog before meal times + SS insulin - Monitor CMP #CVA #Hyperlipidemia #COPD Continue home medications F:Normal Saline E:None GI ppx: pepcid CODE STATUS: full Dispo: Pending culture and sensitivities Dictation was produced using [employer] dictation software. please excuse any grammatical, word or spelling errors. Hay Grijalva MD PGY1 Internal Medicine Objective - Vital Signs Vital signs: Vital Signs Temp 97.9 F 03/11/25 06:58 Pulse 66 03/11/25 06:58 Resp 16 03/11/25 06:58 BP 133/83 03/11/25 06:58 Pulse Ox 97 03/11/25 06:58 FiO2 Intake & Output 03/10/25 03/11/25 03/11/25 18:59 06:59 18:59 Intake Total 1140 Output Total 25 Balance 1115 Intake: IV 900 Oral 240 Output: Estimated Blood Loss 25 Other: Voiding Method Toilet Toilet # Voids 2 2 - Labs CBC & Chem 7: 03/11/25 05:12 03/11/25 05:12 Labs: Abnormal Lab Results - Last 24 Hours (Table) 03/10/25 03/10/25 03/10/25 Range/Units 12:11 12:56 14:26 WBC (4.50-10.00) 10*3/uL RBC (4.10-5.20) 10*6/uL Hct (37.2-46.3) % Immature Gran # (0.00-0.04) 10*3/uL Neutrophils # (1.80-7.70) 10*3/uL Eosinophils # (0.04-0.35) 10*3/uL Carbon Dioxide (22-30) mmol/L Creatinine (0.52-1.04) mg/dL Glucose (74-99) mg/dL POC Glucose (mg/dL) 139 H 129 H 140 H (70-110) mg/dL Alkaline Phosphatase (38-126) U/L 03/10/25 03/10/25 03/11/25 Range/Units 17:20 20:18 05:12 WBC 10.90 H (4.50-10.00) 10*3/uL RBC 3.98 L (4.10-5.20) 10*6/uL Hct 36.1 L (37.2-46.3) % Immature Gran # 0.10 H (0.00-0.04) 10*3/uL Neutrophils # 8.71 H (1.80-7.70) 10*3/uL Eosinophils # 0.02 L (0.04-0.35) 10*3/uL Carbon Dioxide (22-30) mmol/L Creatinine (0.52-1.04) mg/dL Glucose (74-99) mg/dL POC Glucose (mg/dL) 381 H 448 H (70-110) mg/dL Alkaline Phosphatase (38-126) U/L 03/11/25 03/11/25 Range/Units 05:12 05:54 WBC (4.50-10.00) 10*3/uL RBC (4.10-5.20) 10*6/uL Hct (37.2-46.3) % Immature Gran # (0.00-0.04) 10*3/uL Neutrophils # (1.80-7.70) 10*3/uL Eosinophils # (0.04-0.35) 10*3/uL Carbon Dioxide 20 L (22-30) mmol/L Creatinine 0.38 L (0.52-1.04) mg/dL Glucose 275 H (74-99) mg/dL POC Glucose (mg/dL) 274 H (70-110) mg/dL Alkaline Phosphatase 157 H (38-126) U/L Microbiology - Last 24 Hours (Table) 03/08/25 18:20 Blood Culture - Preliminary Blood 03/08/25 15:11 Anaerobic Culture - Preliminary Abdominal Fluid 03/08/25 15:11 Gram Stain - Final Abdomen Wound Culture - Final Staphylococcus aureus Pseudomonas aeruginosa
--- NOTE | 2025-03-11 11:30 | P.PN ---
Subjective Progress Note Date: 03/11/25 SURGICAL PROGRESS NOTE CHIEF COMPLAINT: Abdominal wall abscess HISTORY OF PRESENT ILLNESS: Postop day #1 status post incision and drainage of abdominal abscess. Patient's pain is controlled. Denies any nausea or vomiting. Afebrile. WBC 10.9 Hgb 12.1 PHYSICAL EXAM: VITAL SIGNS: Reviewed. GENERAL: Well-developed in no acute distress. ABDOMEN: Soft. Nondistended. Tenderness to palpation around the wound. Patient has dressing in place. There is some minimal blood saturation noted through the dressing. NEUROLOGIC: Alert and oriented. Cranial nerves II through XII grossly intact. ASSESSMENT: 1. Abdominal wall abscess due to possible stitch abscess status post incision and drainage PLAN: -Wound VAC ordered -Consult wound care service -Social work consulted for possible ECF placement -Antibiotics per ID service Physician Supervisor [employer] note has been reviewed by physician. Signing provider agrees with the documented findings, assessment, and plan of care. Objective - Vital Signs Vital signs: Vital Signs Temp 97.9 F 03/11/25 06:58 Pulse 66 03/11/25 06:58 Resp 16 03/11/25 06:58 BP 133/83 03/11/25 06:58 Pulse Ox 97 03/11/25 06:58 FiO2 Intake & Output 03/10/25 03/11/25 03/11/25 18:59 06:59 18:59 Intake Total 1140 360 Output Total 25 Balance 1115 360 Intake: IV 900 Oral 240 360 Output: Estimated Blood Loss 25 Other: Voiding Method Toilet Toilet # Voids 2 2 - Labs CBC & Chem 7: 03/11/25 05:12 03/11/25 05:12 Labs: Abnormal Lab Results - Last 24 Hours (Table) 03/10/25 03/10/25 03/10/25 Range/Units 12:11 12:56 14:26 WBC (4.50-10.00) 10*3/uL RBC (4.10-5.20) 10*6/uL Hct (37.2-46.3) % Immature Gran # (0.00-0.04) 10*3/uL Neutrophils # (1.80-7.70) 10*3/uL Eosinophils # (0.04-0.35) 10*3/uL Carbon Dioxide (22-30) mmol/L Creatinine (0.52-1.04) mg/dL Glucose (74-99) mg/dL POC Glucose (mg/dL) 139 H 129 H 140 H (70-110) mg/dL Alkaline Phosphatase (38-126) U/L 03/10/25 03/10/25 03/11/25 Range/Units 17:20 20:18 05:12 WBC 10.90 H (4.50-10.00) 10*3/uL RBC 3.98 L (4.10-5.20) 10*6/uL Hct 36.1 L (37.2-46.3) % Immature Gran # 0.10 H (0.00-0.04) 10*3/uL Neutrophils # 8.71 H (1.80-7.70) 10*3/uL Eosinophils # 0.02 L (0.04-0.35) 10*3/uL Carbon Dioxide (22-30) mmol/L Creatinine (0.52-1.04) mg/dL Glucose (74-99) mg/dL POC Glucose (mg/dL) 381 H 448 H (70-110) mg/dL Alkaline Phosphatase (38-126) U/L 03/11/25 03/11/25 Range/Units 05:12 05:54 WBC (4.50-10.00) 10*3/uL RBC (4.10-5.20) 10*6/uL Hct (37.2-46.3) % Immature Gran # (0.00-0.04) 10*3/uL Neutrophils # (1.80-7.70) 10*3/uL Eosinophils # (0.04-0.35) 10*3/uL Carbon Dioxide 20 L (22-30) mmol/L Creatinine 0.38 L (0.52-1.04) mg/dL Glucose 275 H (74-99) mg/dL POC Glucose (mg/dL) 274 H (70-110) mg/dL Alkaline Phosphatase 157 H (38-126) U/L Microbiology - Last 24 Hours (Table) 03/08/25 18:20 Blood Culture - Preliminary Blood 03/08/25 15:11 Anaerobic Culture - Preliminary Abdominal Fluid 03/08/25 15:11 Gram Stain - Final Abdomen Wound Culture - Final Staphylococcus aureus Pseudomonas aeruginosa
[2025-03-11 12:13] LABS: Glucose,Whole Blood 409 mg/dL (70-110)
--- NOTE | 2025-03-11 17:10 | P.PN ---
Subjective Subjective: History of present illness; 54-year-old female with a history of low anterior resection for diverticulitis, COPD, 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 She was previously admitted with abdominal pain with continued ongoing open area and previous wound dehiscence being closely monitored by general surgery and infectious disease. Patient continues with significant pain and abdominal drainage which she recognized increasing since 4 months ago post colostomy reversal. Patient reports attending her general surgeon Dr. Subramanian regarding symptoms and was told to attend the emergency department for further evaluation. Patient denies fevers, chills and rigors. On examination a well-demarcated circular area of open wound on the left lower quadrant of the abdomen was appreciated. Green purulent drainage was noticed, patient reported worsening of such. A foul order at the site was also appreciated. Of note, patient also complaining of having history of recurrent boils in her inner thigh and groin region. In ER lab work significant for WBC 11.24 with neutrophils of 8.54, sodium 136, creatinine 0.41, glucose 340, ALT 191. Patient received a single dose of Zosyn in ED and drainage cultured. A CT Abdo pelvis obtained significant for subcutaneous fluid collection in the anterior abdomen compatible with history of abscesses measu ring 6.5 x 2.4 x 3.4 cm. 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 IVC filter would likely more distal occlusion with torturous vessels/shunting along the anterior abdominal wall as well as hepatomegaly with hepatic state steatosis. Chronic diverticulosis also appreciated. 03/10: Patient seen at bedside. Patient reported significant increase in abdominal pain at site of abscess. Abscess visibly larger than previous day. Increased erythema on immediate right of abdominal opening. Patient reports no change in drainage. Patient for incision and drainage of the abscess and possible mesh removal today. Patient remains n.p.o., Eliquis on hold and hemodynamically stable. 03/11: Patient seen and examined at bedside she is tolerating the procedure well feeling much better after abscess was drained. She has no complaints at this time Pertinent positives and negatives discussed above, a complete review of systems was preformed and all the other sytems were negative. Vitals Signs Reviewed. PHYSICAL EXAMINATION: GENERAL: The patient is alert and oriented x3, not in any acute distress. Well developed, well nourished. HEENT: Pupils are round and equally reacting to light. EOMI. No scleral icterus. No conjunctival pallor. Normocephalic, atraumatic. CARDIOVASCULAR: S1 and S2 present. No murmurs, rubs, or gallops. PULMONARY: Chest is clear to auscultation b/l, no wheezing or crackles. ABDOMEN: A well-demarcated circular area of open wound on the left lower quadrant of the abdomen was appreciated. Green purulent drainage was noticed, patient reported worsening of drainage. A foul order at the site was also appr eciated. a large corinne of approximately 9 x 9 cm appreciated immediately to the left of the abdominal opening, in keeping with intraabdominal abscess. Increase in erythema from yesterday. MUSCULOSKELETAL: No joint swelling or deformity EXTREMITIES: No cyanosis, clubbing, or pedal edema. - Examination of groin abscess as per patient's request. [employer] Practitioner offered but patient denied one. Exam performed on day of admission:A well demarcated, raised area on right groin, erythametous. approximately 2 cm in size. NEUROLOGICAL: Gross neurological examination did not reveal any focal deficits. SKIN: No rashes. Data Reviewed Today: 03/11/2025 Patient Labs: WBC 8.99, sodium 135, potassium 4, glucose 283, hemoglobin A1c 10.9 Abdominal from standing: Positive for Staph aureus and gram-negative bacilli. Blood cultures negative till date. Imaging: No new images. Assessment and Plan #Abdominal wall abscess Abscess debridement was yesterday sample collected from abscess pending culture and sensitivities - Antibiotics per ID service - Eliquis on hold, pending surgery for restarting - cont with IV zosyn as per ID (03/09, day3 of 5) Started on daptomycin - ID on consult, appreciate recommendations Chronic Conditions: #Type 2 DM - Insulin lantus 40 BD + Humolog before meal times + SS insulin - Monitor CMP #CVA #Hyperlipidemia #COPD Continue home medications F:Normal Saline E:None GI ppx: pepcid CODE STATUS: full Dispo: Pending culture and sensitivities Dictation was produced using [employer] dictation software. please excuse any grammatical, word or spelling errors. Hay Grijalva MD PGY1 Internal Medicine Objective - Vital Signs Vital signs: Vital Signs Temp 97.9 F 03/11/25 06:58 Pulse 66 03/11/25 06:58 Resp 16 03/11/25 06:58 BP 133/83 03/11/25 06:58 Pulse Ox 97 03/11/25 06:58 FiO2 Intake & Output 03/10/25 03/11/25 03/11/25 18:59 06:59 18:59 Intake Total 1140 Output Total 25 Balance 1115 Intake: IV 900 Oral 240 Output: Estimated Blood Loss 25 Other: Voiding Method Toilet Toilet # Voids 2 2 - Labs CBC & Chem 7: 03/11/25 05:12 03/11/25 05:12 Labs: Abnormal Lab Results - Last 24 Hours (Table) 03/10/25 03/10/25 03/10/25 Range/Units 12:11 12:56 14:26 WBC (4.50-10.00) 10*3/uL RBC (4.10-5.20) 10*6/uL Hct (37.2-46.3) % Immature Gran # (0.00-0.04) 10*3/uL Neutrophils # (1.80-7.70) 10*3/uL Eosinophils # (0.04-0.35) 10*3/uL Carbon Dioxide (22-30) mmol/L Creatinine (0.52-1.04) mg/dL Glucose (74-99) mg/dL POC Glucose (mg/dL) 139 H 129 H 140 H (70-110) mg/dL Alkaline Phosphatase (38-126) U/L 03/10/25 03/10/25 03/11/25 Range/Units 17:20 20:18 05:12 WBC 10.90 H (4.50-10.00) 10*3/uL RBC 3.98 L (4.10-5.20) 10*6/uL Hct 36.1 L (37.2-46.3) % Immature Gran # 0.10 H (0.00-0.04) 10*3/uL Neutrophils # 8.71 H (1.80-7.70) 10*3/uL Eosinophils # 0.02 L (0.04-0.35) 10*3/uL Carbon Dioxide (22-30) mmol/L Creatinine (0.52-1.04) mg/dL Glucose (74-99) mg/dL POC Glucose (mg/dL) 381 H 448 H (70-110) mg/dL Alkaline Phosphatase (38-126) U/L 03/11/25 03/11/25 Range/Units 05:12 05:54 WBC (4.50-10.00) 10*3/uL RBC (4.10-5.20) 10*6/uL Hct (37.2-46.3) % Immature Gran # (0.00-0.04) 10*3/uL Neutrophils # (1.80-7.70) 10*3/uL Eosinophils # (0.04-0.35) 10*3/uL Carbon Dioxide 20 L (22-30) mmol/L Creatinine 0.38 L (0.52-1.04) mg/dL Glucose 275 H (74-99) mg/dL POC Glucose (mg/dL) 274 H (70-110) mg/dL Alkaline Phosphatase 157 H (38-126) U/L Microbiology - Last 24 Hours (Table) 03/08/25 18:20 Blood Culture - Preliminary Blood 03/08/25 15:11 Anaerobic Culture - Preliminary Abdominal Fluid 03/08/25 15:11 Gram Stain - Final Abdomen Wound Culture - Final Staphylococcus aureus Pseudomonas aeruginosa
[2025-03-11 17:24] LABS: Glucose,Whole Blood 380 mg/dL (70-110)
[2025-03-11] MEDS: PIPERACILLIN-TAZOBACTAM 3.375 GM in SODIUM CHLORIDE 0.9% 100 ML IVPB SCH (18:10)
[2025-03-11 20:33] LABS: Glucose,Whole Blood 363 mg/dL (70-110)
[2025-03-12 05:11] LABS: Basophils # (A) 0.06 10*3/uL (0.00-0.10); Basophils % (A) 0.7 %; Eosinophils # (A) 0.12 10*3/uL (0.04-0.35); Eosinophils % (A) 1.5 %; HCT 35.1 % (37.2-46.3); HGB 11.5 g/dL (12.0-15.0); Lymphocytes # (A) 2.26 10*3/uL (0.90-5.00); Lymphocytes % (A) 27.8 %; MCH 30.5 pg (27.0-32.0); MCHC 32.8 g/dL (32.0-37.0); MCV 93.1 fL (80.0-97.0); Monocytes # (A) 0.54 10*3/uL (0.20-1.00); Monocytes % (A) 6.6 %; Neutrophils # (A) 5.09 10*3/uL (1.80-7.70); Neutrophils % (A) 62.7 %; Platelet Count 224 10*3/uL (140-440); RBC 3.77 10*6/uL (4.10-5.20); RDW 13.2 % (11.5-14.5); WBC 8.13 10*3/uL (4.50-10.00)
[2025-03-12 05:42] LABS: ALT 18 U/L (4-34); AST 17 U/L (14-36); African American GFR (CKD) >90 (>60 ml/min/1.73 sqM); Albumin 3.3 g/dL (3.5-5.0); Albumin/Globulin Ratio 1.3; Alkaline Phosphatase 127 U/L (38-126); Anion Gap 10 mmol/L; Blood Urea Nitrogen 19 mg/dL (7-17); Calcium 9.3 mg/dL (8.4-10.2); Carbon Dioxide 23 mmol/L (22-30); Chloride 107 mmol/L (98-107); Globulin 2.5 g/dL; Glucose 243 mg/dL (74-99); Non-African American GFR(CKD) >90 (>60 ml/min/1.73 sqM); Potassium 4.4 mmol/L (3.5-5.1); Sodium 140 mmol/L (137-145); Total Protein 5.8 g/dL (6.3-8.2)
[2025-03-12 06:12] LABS: Glucose,Whole Blood 263 mg/dL (70-110)
--- NOTE | 2025-03-12 07:06 | P.PN ---
Subjective Progress Note Date: 03/11/25 Principal diagnosis: Reason for follow-up is abdominal wall abscess Patient is a 54-year-old female with a past medical history significant for COPD CVA diabetes mellitus hypertension hyperlipidemia diverticulitis in this patient who did have a history of abdominal incisional hernia repair however there was no mesh as per discussion with the surgeon presented to hospital with abdominal pain wound concerning for an abscess in this patient was status post drainage of the abdominal wall abscess and removal of a deep stitch. On today's evaluation that is 03/11/2025,the patient denies any fever or any chills, patient is breathing comfortably on room air, the patient denies chest pain shortness of breath and no significant cough, patient abdominal pain has slightly decreased in intensity some nausea but no vomiting and no diarrhea. Patient white count is 10.90, creatinine 0.38 abdominal culture growing Staph aureus and Pseudomonas Objective - Vital Signs Vital signs: Vital Signs Temp 98 F 03/11/25 19:24 Pulse 83 03/11/25 19:24 Resp 17 03/11/25 19:24 BP 126/81 03/11/25 19:24 Pulse Ox 96 03/11/25 19:24 FiO2 Intake & Output 03/11/25 03/11/25 03/12/25 06:59 18:59 06:59 Intake Total 1160 Balance 1160 Intake: Oral 1160 Other: Voiding Method Toilet # Voids 2 3 - Exam GENERAL DESCRIPTION: Middle-age female lying in bed in no distress RESPIRATORY SYSTEM: Unlabored breathing , decreased breath sounds at bases HEART: S1 S2 regular rate and rhythm , ABDOMEN: Soft , abdominal wound x 2 with no significant slough tissue or surrounding redness EXTREMITIES: No edema feet - Labs CBC & Chem 7: 03/12/25 04:32 03/12/25 04:32 Labs: Abnormal Lab Results - Last 24 Hours (Table) 03/11/25 03/11/25 03/11/25 Range/Units 05:12 05:12 05:54 WBC 10.90 H (4.50-10.00) 10*3/uL RBC 3.98 L (4.10-5.20) 10*6/uL Hct 36.1 L (37.2-46.3) % Immature Gran # 0.10 H (0.00-0.04) 10*3/uL Neutrophils # 8.71 H (1.80-7.70) 10*3/uL Eosinophils # 0.02 L (0.04-0.35) 10*3/uL Carbon Dioxide 20 L (22-30) mmol/L Creatinine 0.38 L (0.52-1.04) mg/dL Glucose 275 H (74-99) mg/dL POC Glucose (mg/dL) 274 H (70-110) mg/dL Alkaline Phosphatase 157 H (38-126) U/L 03/11/25 03/11/25 03/11/25 Range/Units 12:12 17:23 20:30 WBC (4.50-10.00) 10*3/uL RBC (4.10-5.20) 10*6/uL Hct (37.2-46.3) % Immature Gran # (0.00-0.04) 10*3/uL Neutrophils # (1.80-7.70) 10*3/uL Eosinophils # (0.04-0.35) 10*3/uL Carbon Dioxide (22-30) mmol/L Creatinine (0.52-1.04) mg/dL Glucose (74-99) mg/dL POC Glucose (mg/dL) 409 H 380 H 363 H (70-110) mg/dL Alkaline Phosphatase (38-126) U/L Microbiology - Last 24 Hours (Table) 03/08/25 18:20 Blood Culture - Preliminary Blood 03/08/25 15:11 Anaerobic Culture - Preliminary Abdominal Fluid 03/08/25 15:11 Gram Stain - Final Abdomen Wound Culture - Final Staphylococcus aureus Pseudomonas aeruginosa Assessment and Plan (1) Failure of outpatient treatment Current Visit: Yes Status: Acute Code(s): Z78.9 - OTHER SPECIFIED HEALTH STATUS SNOMED Code(s): 906678612 (2) Abdominal wall abscess Current Visit: Yes Status: Acute Code(s): L02.211 - CUTANEOUS ABSCESS OF ABDOMINAL WALL SNOMED Code(s): 63084332 (3) Open abdominal wall wound Current Visit: No Status: Acute Code(s): S31.109A - UNSP OPN WND ABD WALL, UNSP Q W/O PENET PERIT CAV, INIT SNOMED Code(s): 649506223 Plan: 1patient presented to the hospital with nonhealing abdominal wall wound with drainage and pain with CT did shows evidence of an abscess in this patient with history of recurrent recurrent abdominal wall abscess did have a previous history of abdominal incision repair with a mesh highly suspicious for possible mesh infection responsible for these recurrent infection 2-patient with recent culture positive MSSA and has not responded very well to the oral Keflex therapy concern for possible gram-negative 3-patient s/p surgical exploration and drainage of the abscess and removal of his stitch deep culture obtained superficial culture growing Staph aureus and Pseudomonas 4patient antibiotic will be switched over to cefepime 2 g every 8hr that should cover for both the pathogen, plan for IV antibiotics on discharge Dictation was produced using [employer] dictation software. please excuse any grammatical, word or spelling errors. Time with Patient: Less than 30
[2025-03-12] MEDS: CEFEPIME 2 GM in SODIUM CHLORIDE 0.9% 100 ML IVPB SCH (08:22)
--- NOTE | 2025-03-12 10:17 | P.PN ---
Subjective Progress Note Date: 03/12/25 SURGICAL PROGRESS NOTE CHIEF COMPLAINT: Abdominal wall abscess HISTORY OF PRESENT ILLNESS: Postop day #2 status post incision and drainage of abdominal abscess. Patient's status post wound VAC placement. Patient's pain is controlled. Afebrile. WBC 8.13 glucose 263 hemoglobin A1c 10.9 PHYSICAL EXAM: VITAL SIGNS: Reviewed. GENERAL: Well-developed in no acute distress. ABDOMEN: Soft. Nondistended. Wound VAC in place and intact NEUROLOGIC: Alert and oriented. Cranial nerves II through XII grossly intact. ASSESSMENT: 1. Abdominal wall abscess due to possible stitch abscess status post incision and drainage 2. Uncontrolled diabetes melitis PLAN: -Continue wound VAC. Wound VAC to change on Fridays -vault manager working on ECF placement -Infectious disease recommending IV antibiotics at discharge -Okay to resume Eliquis -Continue pain management -Patient is increased risk for infection because of poor diabetes control, A1c 10.9 Physician Die Cast Patternmaker note has been reviewed by physician. Signing provider agrees with the documented findings, assessment, and plan of care. Objective - Vital Signs Vital signs: Vital Signs Temp 97.7 F 03/12/25 07:09 Pulse 68 03/12/25 07:09 Resp 16 03/12/25 07:09 BP 137/77 03/12/25 07:09 Pulse Ox 95 03/12/25 07:09 FiO2 Intake & Output 03/11/25 03/12/25 03/12/25 18:59 06:59 18:59 Intake Total 1160 Balance 1160 Intake: Oral 1160 Other: Voiding Method Toilet Toilet # Voids 3 2 - Labs CBC & Chem 7: 03/12/25 04:32 03/12/25 04:32 Labs: Abnormal Lab Results - Last 24 Hours (Table) 03/11/25 03/11/25 03/11/25 Range/Units 12:12 17:23 20:30 RBC (4.10-5.20) 10*6/uL Hgb (12.0-15.0) g/dL Hct (37.2-46.3) % Immature Gran # (0.00-0.04) 10*3/uL BUN (7-17) mg/dL Creatinine (0.52-1.04) mg/dL Glucose (74-99) mg/dL POC Glucose (mg/dL) 409 H 380 H 363 H (70-110) mg/dL Alkaline Phosphatase (38-126) U/L Total Protein (6.3-8.2) g/dL Albumin (3.5-5.0) g/dL 03/12/25 03/12/25 03/12/25 Range/Units 04:32 04:32 06:01 RBC 3.77 L (4.10-5.20) 10*6/uL Hgb 11.5 L (12.0-15.0) g/dL Hct 35.1 L (37.2-46.3) % Immature Gran # 0.06 H (0.00-0.04) 10*3/uL BUN 19 H (7-17) mg/dL Creatinine 0.51 L (0.52-1.04) mg/dL Glucose 243 H (74-99) mg/dL POC Glucose (mg/dL) 263 H (70-110) mg/dL Alkaline Phosphatase 127 H (38-126) U/L Total Protein 5.8 L (6.3-8.2) g/dL Albumin 3.3 L (3.5-5.0) g/dL Microbiology - Last 24 Hours (Table) 03/08/25 18:20 Blood Culture - Preliminary Blood
[2025-03-12 12:19] LABS: Glucose,Whole Blood 181 mg/dL (70-110)
--- NOTE | 2025-03-12 12:35 | P.CONS ---
History of Present Illness - Reason for Consult Consult date: 03/12/25 wound care - History of Present Illness This is a 54-year-old patient known to the wound care center being seen on 6 N. for a nonhealing ulceration to the abdomen. The patient underwent a incision and drainage of an abdominal abscess and currently has a negative pressure wound VAC in place. Patient's past medical history significant for COPD, CVA, diabetes, GERD, hyperlipidemia, hypertension. Patient is known to the wound care center and return on Sunday for treatment. Patient is a current every day smoker. Review Of Systems: Constitutional: No fever, no chills, no night sweats. No weight change. No weakness, fatigue or lethargy. No daytime sleepiness. Integumentary:reports wounds, no lesions. No rash or pruritus. No unusual bruising. No change in hair or nails. Physical exam: General Appearance: Alert, cooperative, no distress, appears stated age. Skin: See HPI all other Skin color, texture, tugor normal, no rashes or lesions. Neurologic: Alert oriented x3 Assessment: 1. Nonhealing ulceration with muscle involvement without necrosis 2. Diabetes with skin ulceration Plan: 1. Apply negative pressure wound VAC with black foam at 125 mmHg. Change Sunday. Patient return to the wound care center on Sunday Thank you for the consultation any questions please contact the care center DNP note has been reviewed and discussed with Dr. Reddy and the impression and plan of care has been directed as dictated. Past Medical History Past Medical History: COPD, CVA/TIA, Diabetes Mellitus, Deep Vein Thrombosis (DVT), GERD/Reflux, Hyperlipidemia, Hypertension Additional Past Medical History / Comment(s): CVA 2019- expressive aphasia; 2 DVT's; diverticulitis; hernia History of Any Multi-Drug Resistant Organisms: MRSA Year Discovered:: 09/03/23 MDRO Source:: Groin Past Surgical History: Bowel Resection Additional Past Surgical History / Comment(s): IVC FILTER 2013. ileostomy. wound vac. ileostomy reversal with hernia repair, with ovary removal-Apr 2024. Past Anesthesia/Blood Transfusion Reactions: No Reported Reaction Past Psychological History: Depression, PTSD Smoking Status: Current every day smoker Past Alcohol Use History: None Reported Additional Past Alcohol Use History / Comment(s): smokes 1 ppd since age 18 Past Drug Use History: None Reported Additional Drug Use History / Comment(s): used marijuana on her birthday Medications and Allergies Home Medications Medication Instructions Recorded Confirmed Type Insulin Glargine,Hum.rec.anlog 64 unit SQ DAILY 08/04/21 03/08/25 History [Lantus Solostar Pen] hydroCHLOROthiazide [Hydrodiuril] 12.5 mg PO DAILY 08/04/21 03/08/25 History busPIRone HCL 15 mg PO TID 03/14/23 03/08/25 History traZODone HCL 150 mg PO HS 03/14/23 03/08/25 History Gabapentin 800 mg PO TID 3 Days #9 tab 07/12/23 03/08/25 Rx Atorvastatin [Lipitor] 80 mg PO DAILY 08/07/23 03/08/25 History Apixaban [Eliquis] 5 mg PO BID 05/03/24 03/08/25 History Famotidine 40 mg PO DAILY 05/03/24 03/08/25 History cloNIDine HCL 0.05 mg PO BID 05/03/24 03/08/25 History HYDROcodone/APAP 10-325MG [[place] 1 tab PO TID PRN 11/22/24 03/08/25 History 10-325] Potassium Chloride ER [K-Dur 20] 20 meq PO DAILY 11/22/24 03/08/25 History Insulin Aspart [NovoLOG Flexpen] See Protocol SQ AC-TID 02/11/25 03/08/25 History Insulin Glargine,Hum.rec.anlog 14 units SQ HS 02/11/25 03/08/25 History [Lantus Solostar Pen] lisinopriL 30 mg PO DAILY 02/11/25 03/08/25 History Allergies Allergy/AdvReac Type Severity Reaction Status Date / Time ceftriaxone [From Rocephin] Allergy Rash/Hives Verified 03/08/25 19:30 Physical Exam Vitals: Vital Signs Temp Pulse Resp BP Pulse Ox 03/12/25 07:09 97.7 F 68 16 137/77 95 03/12/25 01:09 97.6 F 61 16 110/76 97 03/11/25 21:13 83 03/11/25 19:24 98 F 83 17 126/81 96 03/11/25 14:00 98.2 F 76 16 122/80 98 Intake and Output 03/11/25 03/12/25 03/12/25 22:59 06:59 14:59 Intake Total 560 Balance 560 Intake: Oral 560 Other: Voiding Method Toilet Toilet # Voids 3 2 Weight 69.4 kg Results CBC & Chem 7: 03/12/25 04:32 03/12/25 04:32 Labs: Abnormal Lab Results - Last 24 Hours (Table) 03/11/25 03/11/25 03/12/25 Range/Units 17:23 20:30 04:32 RBC 3.77 L (4.10-5.20) 10*6/uL Hgb 11.5 L (12.0-15.0) g/dL Hct 35.1 L (37.2-46.3) % Immature Gran # 0.06 H (0.00-0.04) 10*3/uL BUN (7-17) mg/dL Creatinine (0.52-1.04) mg/dL Glucose (74-99) mg/dL POC Glucose (mg/dL) 380 H 363 H (70-110) mg/dL Alkaline Phosphatase (38-126) U/L Total Protein (6.3-8.2) g/dL Albumin (3.5-5.0) g/dL 03/12/25 03/12/25 03/12/25 Range/Units 04:32 06:01 12:18 RBC (4.10-5.20) 10*6/uL Hgb (12.0-15.0) g/dL Hct (37.2-46.3) % Immature Gran # (0.00-0.04) 10*3/uL BUN 19 H (7-17) mg/dL Creatinine 0.51 L (0.52-1.04) mg/dL Glucose 243 H (74-99) mg/dL POC Glucose (mg/dL) 263 H 181 H (70-110) mg/dL Alkaline Phosphatase 127 H (38-126) U/L Total Protein 5.8 L (6.3-8.2) g/dL Albumin 3.3 L (3.5-5.0) g/dL Microbiology - Last 24 Hours (Table) 03/08/25 18:20 Blood Culture - Preliminary Blood Assessment and Plan (1) Non-pressure chronic ulcer of skin of other sites with fat layer exposed Current Visit: Yes Status: Acute Code(s): L98.492 - NON-PRS CHRONIC ULCER OF SKIN OF SITES W FAT LAYER EXPOSED SNOMED Code(s): 14015500 (2) Type 2 diabetes mellitus with other skin ulcer Current Visit: No Status: Acute Code(s): E11.622 - TYPE 2 DIABETES MELLITUS WITH OTHER SKIN ULCER; L98.499 - NON-PRESSURE CHRONIC ULCER OF SKIN OF SITES W UNSP SEVERITY SNOMED Code(s): 592933393143129
--- NOTE | 2025-03-12 16:22 | P.PN ---
Subjective Subjective: History of present illness; 54-year-old female with a history of low anterior resection for diverticulitis, COPD, 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 She was previously admitted with abdominal pain with continued ongoing open area and previous wound dehiscence being closely monitored by general surgery and infectious disease. Patient continues with significant pain and abdominal drainage which she recognized increasing since 4 months ago post colostomy reversal. Patient reports attending her general surgeon Dr. Subramanian regarding symptoms and was told to attend the emergency department for further evaluation. Patient denies fevers, chills and rigors. On examination a well-demarcated circular area of open wound on the left lower quadrant of the abdomen was appreciated. Green purulent drainage was noticed, patient reported worsening of such. A foul order at the site was also appreciated. Of note, patient also complaining of having history of recurrent boils in her inner thigh and groin region. In ER lab work significant for WBC 11.24 with neutrophils of 8.54, sodium 136, creatinine 0.41, glucose 340, ALT 191. Patient received a single dose of Zosyn in ED and drainage cultured. A CT Abdo pelvis obtained significant for subcutaneous fluid collection in the anterior abdomen compatible with history of abscesses measu ring 6.5 x 2.4 x 3.4 cm. 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 IVC filter would likely more distal occlusion with torturous vessels/shunting along the anterior abdominal wall as well as hepatomegaly with hepatic state steatosis. Chronic diverticulosis also appreciated. 03/10: Patient seen at bedside. Patient reported significant increase in abdominal pain at site of abscess. Abscess visibly larger than previous day. Increased erythema on immediate right of abdominal opening. Patient reports no change in drainage. Patient for incision and drainage of the abscess and possible mesh removal today. Patient remains n.p.o., Eliquis on hold and hemodynamically stable. 03/11: Patient seen and examined at bedside she is tolerating the procedure well feeling much better after abscess was drained. She has no complaints at this time 03/12: Patient seen and examined at bedside. Wound VAC changed in situ. Reports feeling slightly better than last night. Eliquis restarted. Pertinent positives and negatives discussed above, a complete review of systems was preformed and all the other sytems were negative. Vitals Signs Reviewed. PHYSICAL EXAMINATION: GENERAL: The patient is alert and oriented x3, not in any acute distress. Well developed, well nourished. HEENT: Pupils are round and equally reacting to light. EOMI. No scleral icterus. No conjunctival pallor. Normocephalic, atraumatic. CARDIOVASCULAR: S1 and S2 present. No murmurs, rubs, or gallops. PULMONARY: Chest is clear to auscultation b/l, no wheezing or crackles. ABDOMEN: A well-demarcated circular area of open wound on the left lower quadrant of the abdomen was appreciated. Green purulent drainage was noticed, patient reported worsening of drainage. A foul order at the site was also appreciated. a large corinne of approximately 9 x 9 cm appreciated immediately to the left of the abdominal opening, in keeping with intraabdominal abscess. Increase in erythema from yesterday. MUSCULOSKELETAL: No joint swelling or deformity EXTREMITIES: No cyanosis, clubbing, or pedal edema. - Examination of groin abscess as per patient's request. [employer] offered but patient denied one. Exam performed on day of admission:A well demarcated, raised area on right groin, erythametous. approximately 2 cm in size. NEUROLOGICAL: Gross neurological examination did not reveal any focal deficits. SKIN: No rashes. Data Reviewed Today: 03/12/2025 Patient Labs: WBC 8.13, hemoglobin 11.5, sodium 140, potassium 4.4, creatinine 0.51 glucose 180 hemoglobin A1c 10.9 Abdominal culture: Positive for Staph aureus and gram-negative bacilli. Blood cultures negative till date. Imaging: No new images. Assessment and Plan #Abdominal wall abscess Abscess debridement was yesterday sample collected from abscess pending culture and sensitivities -Continue wound VAC. Wound VAC to change on Fridays. Patient to return to wound care center 1 day. -Resume Eliquis -Decrease Dilaudid frequency to every 6 hours, decrease Victor 10 frequency to every 6 hours, and start tramadol 50 mg 3 times daily as needed. -Start IV cefepime 2 g every 8 hours, plan for IV antibiotics on discharge. -ID on consult, appreciate recommendations Subjective monitor BMP and CBC tomorrow a.m. Chronic Conditions: #Type 2 DM - Insulin lantus 40 BD + Humolog before meal times + SS insulin - Monitor CMP #CVA #Hyperlipidemia #COPD Continue home medications F:Normal Saline E:None GI ppx: pepcid CODE STATUS: full Dispo: Pending social work for AFC placement, wound VAC, and IV antibiotics. Dictation was produced using [employer] dictation software. please excuse any grammatical, word or spelling errors. Hay Grijalva MD PGY1 Internal Medicine Objective - Vital Signs Vital signs: Vital Signs Temp 97.4 F L 03/12/25 14:00 Pulse 80 03/12/25 14:00 Resp 16 03/12/25 14:00 BP 136/84 03/12/25 14:00 Pulse Ox 97 03/12/25 14:00 FiO2 Intake & Output 03/11/25 03/12/25 03/12/25 18:59 06:59 18:59 Intake Total 1160 240 Balance 1160 240 Weight 69.4 kg Intake: Oral 1160 240 Other: Voiding Method Toilet Toilet # Voids 3 2 - Labs CBC & Chem 7: 03/12/25 04:32 03/12/25 04:32 Labs: Abnormal Lab Results - Last 24 Hours (Table) 03/11/25 03/11/25 03/12/25 Range/Units 17:23 20:30 04:32 RBC 3.77 L (4.10-5.20) 10*6/uL Hgb 11.5 L (12.0-15.0) g/dL Hct 35.1 L (37.2-46.3) % Immature Gran # 0.06 H (0.00-0.04) 10*3/uL BUN (7-17) mg/dL Creatinine (0.52-1.04) mg/dL Glucose (74-99) mg/dL POC Glucose (mg/dL) 380 H 363 H (70-110) mg/dL Alkaline Phosphatase (38-126) U/L Total Protein (6.3-8.2) g/dL Albumin (3.5-5.0) g/dL 03/12/25 03/12/25 03/12/25 Range/Units 04:32 06:01 12:18 RBC (4.10-5.20) 10*6/uL Hgb (12.0-15.0) g/dL Hct (37.2-46.3) % Immature Gran # (0.00-0.04) 10*3/uL BUN 19 H (7-17) mg/dL Creatinine 0.51 L (0.52-1.04) mg/dL Glucose 243 H (74-99) mg/dL POC Glucose (mg/dL) 263 H 181 H (70-110) mg/dL Alkaline Phosphatase 127 H (38-126) U/L Total Protein 5.8 L (6.3-8.2) g/dL Albumin 3.3 L (3.5-5.0) g/dL Microbiology - Last 24 Hours (Table) 03/08/25 18:20 Blood Culture - Preliminary Blood
[2025-03-12 17:05] LABS: Glucose,Whole Blood 235 mg/dL (70-110)
[2025-03-12] MEDS: traMADol 50 MG TAB PO SCH (18:01)
[2025-03-12] MEDS: HYDROmorphone 1 MG/ML 1 ML SYRINGE IVP PRN (18:01)
[2025-03-12 19:48] LABS: Glucose,Whole Blood 329 mg/dL (70-110)
[2025-03-12] MEDS: APIXABAN 5 MG TAB PO SCH (20:58)
[2025-03-12] MEDS: HYDROcodone/APAP 10-325MG 1 EACH TAB PO PRN (21:01)
[2025-03-13 05:43] LABS: Glucose,Whole Blood 170 mg/dL (70-110)
[2025-03-13 07:11] LABS: Basophils # (A) 0.05 10*3/uL (0.00-0.10); Basophils % (A) 0.8 %; Eosinophils # (A) 0.16 10*3/uL (0.04-0.35); Eosinophils % (A) 2.6 %; HCT 35.9 % (37.2-46.3); HGB 12.0 g/dL (12.0-15.0); Lymphocytes # (A) 1.44 10*3/uL (0.90-5.00); Lymphocytes % (A) 23.6 %; MCH 30.8 pg (27.0-32.0); MCHC 33.4 g/dL (32.0-37.0); MCV 92.3 fL (80.0-97.0); Monocytes # (A) 0.45 10*3/uL (0.20-1.00); Monocytes % (A) 7.4 %; Neutrophils # (A) 3.94 10*3/uL (1.80-7.70); Neutrophils % (A) 64.8 %; Platelet Count 224 10*3/uL (140-440); RBC 3.89 10*6/uL (4.10-5.20); RDW 13.0 % (11.5-14.5); WBC 6.09 10*3/uL (4.50-10.00)
[2025-03-13 07:42] LABS: African American GFR (CKD) >90 (>60 ml/min/1.73 sqM); Anion Gap 8 mmol/L; Blood Urea Nitrogen 16 mg/dL (7-17); Calcium 9.2 mg/dL (8.4-10.2); Carbon Dioxide 23 mmol/L (22-30); Chloride 108 mmol/L (98-107); Glucose 162 mg/dL (74-99); Non-African American GFR(CKD) >90 (>60 ml/min/1.73 sqM); Potassium 4.2 mmol/L (3.5-5.1); Sodium 139 mmol/L (137-145)
[2025-03-13] MEDS: LORazepam 1 MG/0.5 ML VIAL IV STA (12:10)
--- NOTE | 2025-03-13 12:13 | P.PN ---
Subjective Progress Note Date: 03/13/25 Patient jean stable. Wound VAC is in place. On exam vital signs appear stable. Abdomen is soft. Wound appears clean. Status post incision drainage of abdominal wall abscess. Patient most likely developed this due to poorly controlled diabetes mellitus. Her hemoglobin A1c was over 10. Patient will continue receive supportive care. She is stable for discharge from a surgical standpoint. Objective - Vital Signs Vital signs: Vital Signs Temp 97.6 F 03/13/25 07:51 Pulse 65 03/13/25 07:51 Resp 16 03/13/25 08:54 BP 142/92 03/13/25 07:51 Pulse Ox 95 03/13/25 07:51 FiO2 Intake & Output 03/12/25 03/13/25 03/13/25 18:59 06:59 18:59 Intake Total 720 480 Balance 720 480 Weight 69.4 kg Intake: Oral 720 480 Other: Voiding Method Toilet Toilet Toilet # Voids 4 2 - Labs CBC & Chem 7: 03/13/25 06:41 03/13/25 06:35 Labs: Abnormal Lab Results - Last 24 Hours (Table) 03/12/25 03/12/25 03/12/25 Range/Units 12:18 17:04 19:46 RBC (4.10-5.20) 10*6/uL Hct (37.2-46.3) % Immature Gran # (0.00-0.04) 10*3/uL Chloride (98-107) mmol/L Creatinine (0.52-1.04) mg/dL Glucose (74-99) mg/dL POC Glucose (mg/dL) 181 H 235 H 329 H (70-110) mg/dL 03/13/25 03/13/25 03/13/25 Range/Units 05:41 06:35 06:41 RBC 3.89 L (4.10-5.20) 10*6/uL Hct 35.9 L (37.2-46.3) % Immature Gran # 0.05 H (0.00-0.04) 10*3/uL Chloride 108 H (98-107) mmol/L Creatinine 0.44 L (0.52-1.04) mg/dL Glucose 162 H (74-99) mg/dL POC Glucose (mg/dL) 170 H (70-110) mg/dL Microbiology - Last 24 Hours (Table) 03/10/25 13:35 Gram Stain - Preliminary Abdomen Wound Culture - Preliminary Presumptive Staph aureus 03/08/25 15:11 Anaerobic Culture - Final Abdominal Fluid
[2025-03-13] MEDS ORDERED: DEXAMETHASONE SOD PHOSPHATE 10 MG/ML 1 ML VIAL ONE (12:14)
[2025-03-13] MEDS ORDERED: ROPIVACAINE 5 MG/ML 30 ML VIAL ONE (12:14)
--- NOTE | 2025-03-13 12:41 | P.ANPRN ---
Procedure Note - Anesthesia - Nerve Block Performed Bilateral Transversus Abdominis Single Time Out Performed: Yes Date of Procedure: 03/13/25 Procedure Start Time: 12:00 Procedure Stop Time: 12:10 Indication: Analgesia, Requested by Surgeon Sedation Type: Sedate with meaningful contact maintained Preparation: Sterile Prep Position: Supine Catheter: None Needle Types: Pajunk Needle Gauge: 21 Ultrasound used to visualize needle placement: Yes Ultrasound used to observe medication spread: Yes Injectate: 0.5% Ropivacaine (see comment for volume) (ropivacaine 15ml+[id number]---Dsia side) Blood Aspirated: No Pain Paresthesia on Injection Noted: No Resistance on Injection: Normal Image Stored and Saved: Yes Events: Other (see comment) (TAP block was done as requested by primary care physician for pain control arising from infected surgical site.)
[2025-03-13 12:47] LABS: Glucose,Whole Blood 158 mg/dL (70-110)
[2025-03-13] MEDS ORDERED: HYDROcodone/APAP 10-325MG 1 EACH TAB PO ONE (13:01)
--- NOTE | 2025-03-13 13:20 | P.PN ---
Subjective Progress Note Date: 03/12/25 Principal diagnosis: Reason for follow-up is abdominal wall abscess Patient is a 54-year-old female with a past medical history significant for COPD CVA diabetes mellitus hypertension hyperlipidemia diverticulitis in this patient who did have a history of abdominal incisional hernia repair however there was no mesh as per discussion with the surgeon presented to hospital with abdominal pain wound concerning for an abscess in this patient was status post drainage of the abdominal wall abscess and removal of a deep stitch. On today's evaluation that is 03/12/2025,the patient remains to be afebrile, patient is on room air not requiring supplemental oxygen and mentioned breathing comfortably with no chest pain or cough.Patient denies having any nausea or vomiting, still complaining of abdominal pain but controlled with pain medication. Patient white count is down to 8.13, creatinine 0.51 culture is growing MSSA and Pseudomonas Objective - Vital Signs Vital signs: Vital Signs Temp 97.7 F 03/12/25 07:09 Pulse 68 03/12/25 07:09 Resp 16 03/12/25 07:09 BP 137/77 03/12/25 07:09 Pulse Ox 95 03/12/25 07:09 FiO2 Intake & Output 03/11/25 03/12/25 03/12/25 18:59 06:59 18:59 Intake Total 1160 Balance 1160 Weight 69.4 kg Intake: Oral 1160 Other: Voiding Method Toilet Toilet # Voids 3 2 - Exam GENERAL DESCRIPTION: Middle-age female lying in bed in no distress RESPIRATORY SYSTEM: Unlabored breathing , decreased breath sounds at bases HEART: S1 S2 regular rate and rhythm , ABDOMEN: Soft , abdominal wound covered with a wound VAC EXTREMITIES: No edema feet - Labs CBC & Chem 7: 03/13/25 06:41 03/13/25 06:35 Labs: Abnormal Lab Results - Last 24 Hours (Table) 03/11/25 03/11/25 03/12/25 Range/Units 17:23 20:30 04:32 RBC 3.77 L (4.10-5.20) 10*6/uL Hgb 11.5 L (12.0-15.0) g/dL Hct 35.1 L (37.2-46.3) % Immature Gran # 0.06 H (0.00-0.04) 10*3/uL BUN (7-17) mg/dL Creatinine (0.52-1.04) mg/dL Glucose (74-99) mg/dL POC Glucose (mg/dL) 380 H 363 H (70-110) mg/dL Alkaline Phosphatase (38-126) U/L Total Protein (6.3-8.2) g/dL Albumin (3.5-5.0) g/dL 03/12/25 03/12/25 03/12/25 Range/Units 04:32 06:01 12:18 RBC (4.10-5.20) 10*6/uL Hgb (12.0-15.0) g/dL Hct (37.2-46.3) % Immature Gran # (0.00-0.04) 10*3/uL BUN 19 H (7-17) mg/dL Creatinine 0.51 L (0.52-1.04) mg/dL Glucose 243 H (74-99) mg/dL POC Glucose (mg/dL) 263 H 181 H (70-110) mg/dL Alkaline Phosphatase 127 H (38-126) U/L Total Protein 5.8 L (6.3-8.2) g/dL Albumin 3.3 L (3.5-5.0) g/dL Microbiology - Last 24 Hours (Table) 03/08/25 18:20 Blood Culture - Preliminary Blood Assessment and Plan (1) Failure of outpatient treatment Current Visit: Yes Status: Acute Code(s): Z78.9 - OTHER SPECIFIED HEALTH STATUS SNOMED Code(s): 798828331 (2) Abdominal wall abscess Current Visit: Yes Status: Acute Code(s): L02.211 - CUTANEOUS ABSCESS OF ABDOMINAL WALL SNOMED Code(s): 88815343 (3) Open abdominal wall wound Current Visit: No Status: Acute Code(s): S31.109A - UNSP OPN WND ABD WALL, UNSP Q W/O PENET PERIT CAV, INIT SNOMED Code(s): 333141539 Plan: 1patient presented to the hospital with nonhealing abdominal wall wound with drainage and pain with CT did shows evidence of an abscess in this patient with history of recurrent recurrent abdominal wall abscess did have a previous history of abdominal incision repair with a mesh highly suspicious for possible mesh infection responsible for these recurrent infection 2-patient with recent culture positive MSSA and has not responded very well to the oral Keflex therapy concern for possible gram-negative 3-patient s/p surgical exploration and drainage of the abscess and removal of his stitch deep culture obtained superficial culture growing Staph aureus and Pseudomonas 4patient currently being treated with cefepime 2 g every 8hr plan is for 2-week course of IV antibiotics Dictation was produced using [employer] dictation software. please excuse any grammatical, word or spelling errors. Time with Patient: Less than 30
[2025-03-13 13:21] VITALS: PULSE 68; RESP 14; TEMP 97.7
--- NOTE | 2025-03-13 13:21 | P.PN ---
Subjective Progress Note Date: 03/13/25 Principal diagnosis: Reason for follow-up is abdominal wall abscess Patient is a 54-year-old female with a past medical history significant for COPD CVA diabetes mellitus hypertension hyperlipidemia diverticulitis in this patient who did have a history of abdominal incisional hernia repair however there was no mesh as per discussion with the surgeon presented to hospital with abdominal pain wound concerning for an abscess in this patient was status post drainage of the abdominal wall abscess and removal of a deep stitch. On today's evaluation that is 03/13/2025 the patient continues to be afebrile the patient is breathing comfortably on room air no chest pain shortness of breath or cough abdominal pain has decreased intensity no nausea vomiting or diarrhea. Patient white count 6.09, creatinine 0.44 abdominal culture with MSSA and Pseudomonas aeruginosa Objective - Vital Signs Vital signs: Vital Signs Temp 97.6 F 03/13/25 07:51 Pulse 65 03/13/25 07:51 Resp 16 03/13/25 08:54 BP 142/92 03/13/25 07:51 Pulse Ox 95 03/13/25 07:51 FiO2 Intake & Output 03/12/25 03/13/25 03/13/25 18:59 06:59 18:59 Intake Total 720 480 Balance 720 480 Weight 69.4 kg Intake: Oral 720 480 Other: Voiding Method Toilet Toilet Toilet # Voids 4 2 - Exam GENERAL DESCRIPTION: Middle-age female lying in bed in no distress RESPIRATORY SYSTEM: Unlabored breathing , decreased breath sounds at bases HEART: S1 S2 regular rate and rhythm , ABDOMEN: Soft , abdominal wound covered with a wound VAC EXTREMITIES: No edema feet - Labs CBC & Chem 7: 03/13/25 06:41 03/13/25 06:35 Labs: Abnormal Lab Results - Last 24 Hours (Table) 03/12/25 03/12/25 03/12/25 Range/Units 12:18 17:04 19:46 RBC (4.10-5.20) 10*6/uL Hct (37.2-46.3) % Immature Gran # (0.00-0.04) 10*3/uL Chloride (98-107) mmol/L Creatinine (0.52-1.04) mg/dL Glucose (74-99) mg/dL POC Glucose (mg/dL) 181 H 235 H 329 H (70-110) mg/dL 03/13/25 03/13/25 03/13/25 Range/Units 05:41 06:35 06:41 RBC 3.89 L (4.10-5.20) 10*6/uL Hct 35.9 L (37.2-46.3) % Immature Gran # 0.05 H (0.00-0.04) 10*3/uL Chloride 108 H (98-107) mmol/L Creatinine 0.44 L (0.52-1.04) mg/dL Glucose 162 H (74-99) mg/dL POC Glucose (mg/dL) 170 H (70-110) mg/dL Microbiology - Last 24 Hours (Table) 03/10/25 13:35 Gram Stain - Preliminary Abdomen Wound Culture - Preliminary Presumptive Staph aureus 03/08/25 15:11 Anaerobic Culture - Final Abdominal Fluid Assessment and Plan (1) Failure of outpatient treatment Current Visit: Yes Status: Acute Code(s): Z78.9 - OTHER SPECIFIED HEALTH STATUS SNOMED Code(s): 377799693 (2) Abdominal wall abscess Current Visit: Yes Status: Acute Code(s): L02.211 - CUTANEOUS ABSCESS OF ABD OMINAL WALL SNOMED Code(s): 04361387 (3) Open abdominal wall wound Current Visit: No Status: Acute Code(s): S31.109A - UNSP OPN WND ABD WALL, UNSP Q W/O PENET PERIT CAV, INIT SNOMED Code(s): 440728805 Plan: 1patient presented to the hospital with nonhealing abdominal wall wound with drainage and pain with CT did shows evidence of an abscess in this patient with history of recurrent recurrent abdominal wall abscess did have a previous history of abdominal incision repair with a mesh highly suspicious for possible mesh infection responsible for these recurrent infection 2-patient with recent culture positive MSSA and has not responded very well to the oral Keflex therapy concern for possible gram-negative 3-patient s/p surgical exploration and drainage of the abscess and removal of his stitch deep culture obtained superficial culture growing Staph aureus and Pseudomonas 4patient did have midline placed prescription in the chart for outpatient IV cefepime we will follow-up in the office in 2 weeks care discussed in detail with the [facility] COUNSELOR for admitting team Dictation was produced using [employer] software. please excuse any grammatical, word or spelling errors. Time with Patient: Less than 30
[2025-03-13] MEDS: HYDROmorphone 0.5 MG/0.5 ML SYRINGE IVP STA (13:36)
--- NOTE | 2025-03-13 14:37 | P.DS ---
Providers Date of admission: 03/08/25 17:49 Attending physician: Rito Rhodes MD Consults: 03/08/25 17:50 Consult Physician Routine Consulting Provider: Haroon Lewis Consult Reason/Comments: abdominal abscess Do you want consulting provider notified?: Already Contacted 03/09/25 08:24 Consult Physician Urgent Consulting Provider: Burton Self Consult Reason/Comments: Re-current abdominal abcess Do you want consulting provider notified?: Yes Primary care physician: Stated None Hospital Course: Discharge Diagnosis: Abdominal wall abscess Hospital Course: 54-year-old female with a history of low anterior resection for diverticulitis, COPD, 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 She was previously admitted with abdominal pain with continued ongoing open area and previous wound dehiscence being closely monitored by general surgery and infectious disease. Patient continues with significant pain and abdominal drainage which she recognized increasing since 4 months ago post colostomy reversal. Patient reports attending her general surgeon Dr. Subramanian regarding symptoms and was told to attend the emergency department for further evaluation. Patient denies fevers, chills and rigors. On examination a well-demarcated circular area of open wound on the left lower quadrant of the abdomen was appreciated. Green purulent drainage was noticed, patient reported worsening of such. A foul order at the site was also appreciated. Of note, patient also complaining of having history of recurrent boils in her inner thigh and groin region. In ER lab work significant for WBC 11.24 with neutrophils of 8.54, sodium 136, creatinine 0.41, glucose 340, ALT 191. Patient received a single dose of Zosyn in ED and drainage cultured. A CT Abdo pelvis obtained significant for subcutaneous fluid collection in the anterior abdomen compatible with history of abscesses measuring 6.5 x 2.4 x 3.4 cm. 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 IVC filter would likely more distal occlusion with torturous vessels/shunting along the anterior abdominal wall as well as hepatomegaly with hepatic state steatosis. Chronic diverticulosis also appreciated. During the course of her hospital stay, patient was seen and evaluated by general surgery. Patient underwent incision and drainage of the intra-abdominal abscess which yielded 20 cc of purulent pus. Sutures were removed during the procedure. An abdominal wound culture was obtained and returned positive for Staphylococcus aureus and Pseudomonas. Infectious disease team informed, and patient started on IV cefepime 2 g, which she will continue as outpatient. Pain management team also consulted, and a TAP block was performed to assist with pain control. A negative pressure wound vacuum was applied to the abdominal wound, with dressing changes scheduled for Mondays, Wednesdays, and Fridays. Patient will be discharged to [facility] for continued wound care and antibiotic management. At time of discharge, patient hemodynamically stable and medically managed. Patient advised to follow-up with general surgery and her PCP in 1 week's time. Patient seen and examined at bedside. 03/13/2025 Vital signs reviewed and stable. PHYSICAL EXAMINATION: GENERAL: The patient is alert and oriented x3, not in any acute distress. Well developed, well nourished. HEENT: Pupils are round and equally reacting to light. EOMI. No scleral icterus. No conjunctival pallor. Normocephalic, atraumatic. CARDIOVASCULAR: S1 and S2 present. No murmurs, rubs, or gallops. PULMONARY: Chest is clear to auscultation b/l, no wheezing or crackles. ABDOMEN: A well-demarcated circular area of open wound on the left lower quadrant of the abdomen was appreciated. MUSCULOSKELETAL: No joint swelling or deformity EXTREMITIES: No cyanosis, clubbing, or pedal edema. NEUROLOGICAL: Gross neurological examination did not reveal any focal deficits. SKIN: No rashes. A total of greater than 30 minutes of time were spent preparing this complex discharge summary. Patient was discharged on 03/13/2025. Patient Condition at Discharge: Fair Plan - Discharge Summary Discharge Rx Participant: No New Discharge Prescriptions: New Cefepime [Maxipime] 2 gm IVPB Q8H #42 each Continue traZODone HCL 150 mg PO HS busPIRone HCL 15 mg PO TID Gabapentin 800 mg PO TID 3 Days #9 tab Apixaban [Eliquis] 5 mg PO BID Famotidine 40 mg PO DAILY HYDROcodone/APAP 10-325MG [[place] 10-325] 1 tab PO TID PRN PRN Reason: Pain Potassium Chloride ER [K-Dur 20] 20 meq PO DAILY hydroCHLOROthiazide [Hydrodiuril] 12.5 mg PO DAILY Insulin Glargine,Hum.rec.anlog [Lantus Solostar Pen] 64 unit SQ DAILY Atorvastatin [Lipitor] 80 mg PO DAILY cloNIDine HCL 0.05 mg PO BID Insulin Glargine,Hum.rec.anlog [Lantus Solostar Pen] 14 units SQ HS lisinopriL 30 mg PO DAILY Insulin Aspart [NovoLOG Flexpen] See Protocol SQ AC-TID Discharge Medication List Insulin Glargine,Hum.rec.anlog [Lantus Solostar Pen] 64 unit SQ DAILY 08/04/21 [History] hydroCHLOROthiazide [Hydrodiuril] 12.5 mg PO DAILY 08/04/21 [History] busPIRone HCL 15 mg PO TID 03/14/23 [History] traZODone HCL 150 mg PO HS 03/14/23 [History] Gabapentin 800 mg PO TID 3 Days #9 tab 07/12/23 [Rx] Atorvastatin [Lipitor] 80 mg PO DAILY 08/07/23 [History] Apixaban [Eliquis] 5 mg PO BID 05/03/24 [History] Famotidine 40 mg PO DAILY 05/03/24 [History] cloNIDine HCL 0.05 mg PO BID 05/03/24 [History] HYDROcodone/APAP 10-325MG [[place] 10-325] 1 tab PO TID PRN 11/22/24 [History] Potassium Chloride ER [K-Dur 20] 20 meq PO DAILY 11/22/24 [History] Insulin Aspart [NovoLOG Flexpen] See Protocol SQ AC-TID 02/11/25 [History] Insulin Glargine,Hum.rec.anlog [Lantus Solostar Pen] 14 units SQ HS 02/11/25 [History] lisinopriL 30 mg PO DAILY 02/11/25 [History] Cefepime [Maxipime] 2 gm IVPB Q8H #42 each 03/12/25 [Rx] Follow up Appointment(s)/Referral(s): Charissa Betancur NPC [Nurse Practitioner] - 1 Week None,Stated [Primary Care Provider] - 1-2 days Burton Self MD [STAFF PHYSICIAN] - 1 Week Ambulatory/Diagnostic Orders: Basic Metabolic Panel [LAB.AMB] Location: None Selected C Reactive Protein [LAB.AMB] Location: None Selected Complete Blood Count w/diff [LAB.AMB] Location: None Selected Erythrocyte Sedimentation Rate [LAB.AMB] Location: None Selected Patient Instructions/Handouts: Chronic Wounds (DC) Discharge Disposition: TRANSFER TO SNF/ECF
[2025-03-13 16:36] VITALS: BP 135/82
== END 2025-03-13 16:43 | DRG 603 ==
LOC: EC 13:08 → 4SSUR 17:49 → 5NMEDONC 19:08 → 6NMEDSUR 20:31
PROVIDERS: ADMIT Internal Medicine; ATTEND Internal Medicine
PROC: 0J980ZZ Drainage of Abdomen Subcutaneous Tissue and Fascia, Open Approach (ICD-10-PCS; principal; 2025-03-10 13:15)
PROC: 05HC33Z Insertion of Infusion Device into Left Basilic Vein, Percutaneous Approach (ICD-10-PCS; 2025-03-11 12:30)
DX: L02.211 Cutaneous abscess of abdominal wall (principal); B96.5 Pseudomonas (aeruginosa) (mallei) (pseudomallei) as the cause of diseases classified elsewhere; I69.320 Aphasia following cerebral infarction; E11.622 Type 2 diabetes mellitus with other skin ulcer; B95.61 Methicillin susceptible Staphylococcus aureus infection as the cause of diseases classified elsewhere; E11.65 Type 2 diabetes mellitus with hyperglycemia; J44.9 Chronic obstructive pulmonary disease, unspecified; I10 Essential (primary) hypertension; F32.A Depression, unspecified; L98.495 Non-pressure chronic ulcer of skin of other sites with muscle involvement without evidence of necrosis; Z79.4 Long term (current) use of insulin; F43.10 Post-traumatic stress disorder, unspecified; E78.5 Hyperlipidemia, unspecified; F17.210 Nicotine dependence, cigarettes, uncomplicated; K57.90 Diverticulosis of intestine, part unspecified, without perforation or abscess without bleeding; Z79.899 Other long term (current) drug therapy; Z79.01 Long term (current) use of anticoagulants; Z86.718 Personal history of other venous thrombosis and embolism; Z79.84 Long term (current) use of oral hypoglycemic drugs; Z90.49 Acquired absence of other specified parts of digestive tract
CPT/HCPCS: 36410; 36415; 64488; 74177; 76937; 80048; 80053; 81003; 83036; 85025; 87040; 87070; 87075; 87077; 87186; 87205; 96361; 96365; 96375; 96376; 99285